=== PATIENT | male | born 1970 | race Two or more races ===

== ENCOUNTER 2024-07-31 11:47 | Inpatient (IN) | payer MEDICAID, SELFPAY ==
[2024-07-31] VITALS (11 sets, daily range): BP systolic 92–135; BP diastolic 70–86; PULSE 82–103; RESP 14–26; TEMP 36.3–37.6; O2SAT 3–97; BMI 35.7; BMI 33.9
--- NOTE | 2024-07-31 12:09 | EKG12_ITS ---
Test Reason : SOB Blood Pressure : */* mmHG Vent. Rate : 95 BPM Atrial Rate : 95 BPM P-R Int : 156 ms QRS Dur : 78 ms QT Int : 330 ms P-R-T Axes : 45 74 19 degrees QTcB Int : 414 ms Normal sinus rhythm Normal ECG Confirmed by SANDY CANO, BRANDIE ([id number]), society editor MARY BALTAZAR ([id number]) on 08/01/2024 8:48:24 AM Referred By: Maricruz Villareal Confirmed By: BRANDIE DELGADO MD
--- NOTE | 2024-07-31 12:09 | RAD_ITS ---
EXAM: XR Chest, 1 View CLINICAL INDICATION: TECHNIQUE: Frontal view of the chest. COMPARISON: No relevant prior studies available. FINDINGS: LUNGS AND PLEURAL SPACES: Unremarkable. No consolidation. No pneumothorax. HEART: Unremarkable. No cardiomegaly. MEDIASTINUM: Unremarkable. Normal mediastinal contour. BONES/JOINTS: Unremarkable. No acute fracture. RAD/Chest 1 View (Portable) IMPRESSION: No acute cardiopulmonary process. Reading [facility]
[2024-07-31] MEDS: 0.9% Normal Saline (1000mL) 1,000 ML 999 ML IV (12:19)
--- NOTE | 2024-07-31 12:32 | EX.ED.DYSGE1 ---
HPI History of Present Illness Chief Complaint: Nausea/Vomiting/Diarrhea Detail of Chief Complaint: Nausea, vomit diarrhea as well as shortness of breath cough and hypoxia Informant: patient and EMS Onset/Context/Timing Onset: Yesterday (Per patient) Context: Sudden Onset Timing: Continuous Quality: Viral-like symptoms with respiratory and GI Location: Systemic viral Current Severity: Moderate Maximum Severity: Severe Worsened by: Nothing specific Relieved by: Nothing Associated Symptoms Associated Symptoms: Nonproductive cough and wheezing Narrative Narrative: Patient is a 54-year-old male. 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 He also had compartment syndrome requiring fasciotomy of his right upper extremity. Patient presents because of nonproductive cough, shortness of breath and hypoxia. He is present on 3 L by nasal cannula. There is no history of PE or DVT. He also has GI symptoms consistent with nausea, vomit diarrhea. Denies hematemesis, melena medic easier. He denies urologic symptoms. Prior similar symptoms: No Recent Illness/Hospitalization: No PFSH PFSH Home Medications ?Medication ?Instructions ?Recorded ?Last Taken ?Type acetaminophen 325 mg tablet 650 mg PO Q4H PRN fever or pain 07/31/24 Unknown History (Aminofen) aripiprazole 15 mg tablet (Abilify) 15 mg PO DAILY SCHIZOPHRENIA 07/31/24 Unknown History aspirin 81 mg tablet,delayed 81 mg PO DAILY HTN 07/31/24 Unknown History release (Adult Low Dose Aspirin) atorvastatin 20 mg tablet 20 mg PO QHS HYPERLIPIDEMIA 07/31/24 Unknown History buspirone 10 mg tablet 10 mg PO TID BIPOLAR 07/31/24 Unknown History calcium carbonate (Leslye-Harrell 300 mg PO DAILY PRN heartburn 07/31/24 Unknown History Heartburn Chew) cholecalciferol (vitamin D3) 1,250 1,250 mcg PO QWEEK SUPPLEMENT 07/31/24 Unknown History mcg (50,000 unit) capsule gabapentin 100 mg capsule 200 mg PO TID NEUROPATHIC PAIN 07/31/24 Unknown History lorazepam 1 mg tablet (Ativan) 1 mg PO Q8H agitation 07/31/24 Unknown History metformin 1,000 mg tablet 1,000 mg PO BID DM 07/31/24 Unknown History sennosides 8.6 mg-docusate sodium 1 tab-cap PO DAILY CONSTIPATION 07/31/24 Unknown History 50 mg tablet (Colace 2-In-1) trazodone 50 mg tablet 50 mg PO BID BIPOLAR 07/31/24 Unknown History vortioxetine 20 mg tablet 20 mg PO DAILY DEPRESSION 07/31/24 Unknown History (Trintellix) Allergy/AdvReac Type Severity Reaction Status Date / Time ibuprofen Allergy Rash Verified 07/31/24 11:57 Penicillins Allergy RASH Verified 07/31/24 11:57 Social History Smoking Status: Current every day smoker tobacco type: cigarettes ROS ROS ED Constitutional Constitutional ED: Reports chills, fever(s) and subjective; Denies sweats or weight loss Eyes Eyes: Denies blurry vision or change in vision ENT ENT ED: Reports rhinorrhea and sore throat; Denies ear pain Cardiovascular Cardiovascular: Reports racing heartbeat; Denies chest pain, orthopnea, palpitations or paroxysmal nocturnal dyspnea Respiratory/Chest Respiratory/Chest: Reports cough and dyspnea; Denies orthopnea, paroxysmal nocturnal dyspnea or sputum Gastrointestinal Gastrointestinal: Reports diarrhea, nausea and vomiting; Denies abdominal pain or melena Genitourinary Genitourinary ED: Denies dysuria, hematuria or urinary frequency Musculoskeletal Musculoskeletal: Reports myalgias; Denies arthralgias, back pain or neck pain Integumentary Denies rash Neurologic Neurologic: Denies headache(s), paresthesias or weakness Psychiatric Psychiatric: Denies anxiety or depression Endocrine Endocrinology: Denies cold intolerance or heat intolerance Hematologic/Lymphatic Hematologic/Lymphatic: Reports systems reviewed and no addt'l complaints, except as documented Allergic/Immunologic Allergic/Immunologic ED: Denies mouth swelling or tongue swelling EXAM Physical Exam Const Vital Signs: 07/31/24 11:50 07/31/24 11:52 07/31/24 12:09 Temperature 99.4 F H 99.4 F H Temperature Source Oral Oral Pulse Rate 103 H 95 Respiratory Rate 23 H 21 H Respiratory Pattern Blood Pressure 106/86 H 92/80 Blood Pressure Mean 92 84 Pulse Ox 3 95 96 Oxygen Delivery Method High Flow Nasal Cannula Oxygen Flow Rate (L/min) 3 07/31/24 12:42 07/31/24 14:11 07/31/24 15:16 Temperature 97.4 F L Temperature Source Oral Pulse Rate 95 87 Respiratory Rate 26 H 26 H Respiratory Pattern Tachypnea Blood Pressure 107/76 Blood Pressure Mean 86 Pulse Ox 96 94 Oxygen Delivery Method Room Air Oxygen Flow Rate (L/min) Vital signs are marked for tachycardia, tachypnea and hypoxia. Patient is hypotensive presently. His initial blood pressure was 106/86. Constitutional Narrative: Patient is warm to touch. General Appearance ED: diaphoretic; Negative for cyanotic, NAD or pallor HEENT Reports moist mucous membranes HEENT Narrative: Head is atraumatic normocephalic. Ears are normal. Nares are patent. Posterior pharynx is normal. Eyes EOMs intact bilaterally General Eye ED: Negative for scleral icterus Neck no lymphadenopathy, supple and no JVD Chest Wall inspection of chest normal and palpation of chest normal Resp No normal respiratory effort and No clear to auscultation bilaterally Resp Narrative: There is increased expiratory phase with decreased air movement. Effort and Inspection: Negative for retractions Auscultation: wheezes expiratory wheezes and throughout and diminished lung sounds Cardio regular rhythm, S1 normal heart sound, S2 normal heart sound and no murmurs Rate: tachycardic GI normal to inspection, nondistended, normoactive bowel sounds, non-tender, non-distended and no masses; Negative for hepatosplenomegaly Back/Spine Negative for no CVA tenderness Extremity Negative for normal to inspection General Extremety ED: Negative for tenderness Neuro oriented x3 and CN's II-XII intact bilaterally Sensorium / Orientation: alert Psych mental status grossly normal Skin no rashes or lesions noted, no wounds and skin turgor normal Skin Narrative: Patient is diaphoretic and warm to touch. General Skin Exam: Negative for jaundice or pallor MDM MDM MDM Narrative Medical decision making narrative: Patient presents with hypoxia, tachypnea who was recently diagnosed with COVID 19 yesterday at nursing facility. Is been in nursing facility for 8 years due to left hemispheric stroke that has left him disabled on the right side. Based on patient's oscillatory findings concern patient has COVID-pneumonia. He is not normally on oxygen. He is presently on 3 L of oxygen. He arrived on high flow. Sepsis workup was initiated. Concern patient's hypoxic due to COVID versus pneumonia post COVID infection. Will obtain CBC to assess white count differential and H&H. Electrolyte panel to assess for endorgan dysfunction and specifically renal, electrolyte abnormality. Lactate was obtained as well. Chest x-ray was obtained to assess for pneumonia. History of physical is not consistent with pneumothorax or congestive heart failure. Lab Data Attestation: I reviewed the patient's lab results. Lab results narrative: CBC is unremarkable. There is a slight increase in neutrophils. PT/INR and PTT are all normal. Comprehensive metabolic panel reveals slight elevation alkaline phosphatase. AST and ALT are low at 11 and 12 respectively. Lactate is elevated 3.0. Urinalysis is unremarkable. Labs: Laboratory Results - last 24 hr 07/31/24 07/31/24 12:19 14:42 WBC 6.8 RBC 4.76 Hgb 12.8 L Hct 41.3 MCV 86.8 MCH 26.9 L MCHC 31.0 L RDW Std Deviation 47.6 H RDW Coeff of Thomas 15.0 H Plt Count 204 MPV 9.8 Immature Gran % (Auto) 0.300 Neut % (Auto) 83.5 H Lymph % (Auto) 4.8 L [place] % (Auto) 10.8 H Eos % (Auto) 0.3 Baso % (Auto) 0.3 Absolute Neuts (auto) 5.7 Absolute Lymphs (auto) 0.33 L Nucleated RBC % 0 PT 14.2 INR 1.1 APTT 27.0 Sodium 138 Potassium 4.2 Chloride 103 Carbon Dioxide 28.0 Anion Gap 7 BUN 14 Creatinine 1.30 Estim Creat Clear Calc 76.89 Est GFR (MDRD) Af Amer 74 Est GFR (MDRD) Non-Af 61 BUN/Creatinine Ratio 10.8 Glucose 112 H Lactic Acid 3.0 H* Calcium 9.7 Total Bilirubin 0.40 AST 11 L ALT 12 L Alkaline Phosphatase 125 H Total Protein 7.2 Albumin 3.5 Globulin 3.7 Albumin/Globulin Ratio 0.9 Urine Color Yellow Urine Clarity Clear Urine pH 6.0 Ur Specific [place] 1.010 Urine Protein 30 H Urine Glucose (UA) Normal Urine Ketones Negative Urine Occult Blood Negative Urine Nitrite Negative Urine Bilirubin Negative Urine Urobilinogen 4 H Ur Leukocyte Esterase 100 H Urine RBC 0 SEEN Urine WBC 0-5 SEEN Ur Squamous Epith Cells 0 SEEN Urine Bacteria 0 SEEN Urine Mucus 0 SEEN Glucose is slightly elevated 112 with a normal CO2 anion gap. ABG Data ABG results: ABG 07/31/24 12:59 Specimen Type ART Sample Site Not entered pH 7.39 Bicarbonate Actual 30.6 H Total CO2 32 Base Excess 6 H O2 Saturation 90 L O2 % 4.0 ABG pCO2 50.8 H ABG pO2 60 L O2 Delivery Device Not entered Vent Mode Not entered Radiography Chest X-Ray - ED: 1 View, Read by ED Physician ([id number]), Normal, Heart, Lungs, Mediastinum, Bony Structures and No Acute Disease Diagnostic Testing: Clinical Impression(s) from Imaging Studies Chest X-Ray 07/31/24 12:09 IMPRESSION: No acute cardiopulmonary process. Reading Location: [facility] EKG Initial EKG: Attestation: I personally reviewed and interpreted this EKG as follows: Interpretation: Sinus Rhythm (Rate is 95. EKG is normal. OH interval is 156 ms. Cures duration 78 ms. QT duration 130 ms. [place] is normal. The EKG is normal.) Differential Diagnosis Chest pain/SOB: pneumothorax Reason(s) pneumothorax less likely: Positive for bilateral breath sounds and EMERGENCY MED[employer] EMT withhout PTX, pneumonia Reason(s) pneumonia less likely: Positive for no infiltrate on CXR, no elevation in WBC count, no noted fever and other, aortic dissection Reason(s) Aortic dissection less likely:: Positive for normal vascular exam, normal neurological exam, no significant risk factors for dissection, no widened mediastinum on CXR, pain not sudden onset, no ripping/tearing pain, no pain to back and blood pressure appropriate in ED, CHF Reason(s) CHF less likely: Positive for no significant peripheral edema, no orthopnea and no evidence of fluid overload on CXR and COPD Management Discussion w/another healthcare provider: Hospitalist (Dr. Maricruz Villareal was paged for admission to [facility] for respiratory failure with hypoxia due to COVID-19 infection.) Treatment and Re-Evaluation :: Since patient is hypoxic requiring oxygen with positive COVID test will call hospitalist for admission. Discharge Plan Dx/Rx/DC Orders Clinical Impression: Acute hypoxic respiratory failure, COVID-19 virus infection, Hypotension, Acidosis, lactic, Type 2 diabetes mellitus Disposition Disposition: Acute Care Hospital [facility]
[2024-07-31 12:34] LABS: Absolute Lymphocyte Count 0.33 X10^3/uL (0.83-4.51); Absolute Neutrophil Count 5.7 X10^3/uL (2.0-7.7); Basophil# 0.02 X10^3/uL; Basophil% 0.3 % (0-1); Eosinophil# 0.02 X10^3/uL; Eosinophils% 0.3 % (0-5); Hematocrit 41.3 % (40-54); Hemoglobin 12.8 g/dL (13.0-16.5); Lymphocyte # 0.33 X10^3/ul (0.83-4.51); Lymphocyte % 4.8 % (19-41); Mean Corpuscular Hgb 26.9 pg (27.0-32.0); Mean Corpuscular Volume 86.8 fL (80-94); Mean Platelet Vol. 9.8 fl (6.2-12.0); Monocyte# 0.74 X10^3/uL; Monocyte% 10.8 % (0-10); NRBC Flagged by Analyzer 0 % (0-5); Neutrophil # 5.71 X10^3/uL (2.7-7.7); Neutrophil % 83.5 % (47-70); POSITIVE DIFFERENTIAL YES; Platelet Count 204 K/mm3 (150-450); RBC Distribution Width SD 47.6 fl (35.1-43.9); Red Blood Count 4.76 M/mm3 (4.6-6.2); White Blood Count 6.8 K/mm3 (4.4-11.0)
[2024-07-31] MEDS: Albuterol 2.5 MG/3 ML VIAL.NEB. INHALATION ×2 (12:34)
[2024-07-31 12:44] LABS: International Normalized Ratio 1.1; Prothrombin Time (Protime)PT. 14.2 SECONDS (11.7-14.9)
[2024-07-31 12:53] LABS: ALB/GLOB Ratio 0.9 RATIO (0.9-2.4); AST(SGOT) 11 U/L (15-37); Alanine Aminotransfer ALT/SGPT 12 U/L (16-61); Albumin, Serum 3.5 g/dL (3.2-5.0); Alkaline Phosphatase 125 U/L (45-117); Anion Gap 7 (5-15); BUN 14 mg/dL (7-18); BUN/Creat Ratio 10.8 RATIO (10-20); Calcium,Total 9.7 mg/dL (8.5-10.1); Chloride 103 mmol/L (98-107); EST Glomerular Filtration Rate 61 mL/min (>60); Est Glom Filt Rate - Afr Amer 74 mL/min (>60); Estimated Creatinine Clearance 76.89 ml/min; Globulin 3.7 g/dL (2.2-4.2); Glucose 112 mg/dL (74-106); Potassium 4.2 mmol/L (3.5-5.1); Protein, Total 7.2 g/dL (6.4-8.2); Sodium Level 138 mmol/L (136-145)
[2024-07-31 13:03] LABS: Base Excess 6 mmol/L (-2 to +2); Bicarbonate 30.6 mmol/L (22-26); Blood Gas Specimen Type ART; Mode Not entered; O2 Delivery Device Not entered; PO2 60 mmHG (75-100); SITE Not entered; SO2 90 % (95-99); Total Carbon Dioxide 32 mmol/L; pCO2 50.8 mmHg (35-45); pH 7.39 (7.35-7.45)
[2024-07-31 14:56] LABS: Bacteria 0 SEEN /hpf (None Seen); Mucous, Urine 0 SEEN /hpf (<or=2+); Red Blood Cells-Urine 0 SEEN /hpf (0-5); Squamous Epithelial Cells - UA 0 SEEN /hpf (0-5)
[2024-07-31 15:07] LABS: Color, Urine Yellow (Yellow); Glucose, Dipstick Normal (Normal); Ketone-Dipstick Negative (Negative); Leukocyte Esterase-Dipstick 100 /ul (Negative); Nitrite-Dipstick Negative (Negative); Occult Blood-Urine Negative /ul (Negative); Protein-Dipstick 30 mg/dl (Negative); Urine Bilirubin Dipstick Negative (Negative); Urine Clarity Clear (Clear); Urine Urobilinogen 4 mg/dl (Normal)
--- NOTE | 2024-07-31 15:11 | CM.ED ---
Social work Reason for referral: validation of advance directives Referral source: case find 1500: This SW identified need to validate patient's advance directives. Patient reportedly tested positive for Covid this morning at patient's placement, [facility]. Patient has a legal guardian, patient's sister Ileana ([phone]). This SW called Ileana and introduced self and role at [facility]. Ileana was surprised to hear that patient was in the [facility] ED due to not being notified yet by Cristela Rivera. Ileana gave consent for treatment and verified that Ileana was patient's HCPOA. Ileana stated driving currently, but stated [facility] would have patient's advance directives on file. Ileana asked for patient's RN to call Ileana with update when available. RN Shabana updated. SW to call Cristela Rivera to get advance directives faxed to [facility]. Cherelle Galindo, ORIENTATION AND MOBILITY INSTRUCTOR, CD MIXER HELPER
[2024-07-31 15:14] LABS: White Blood Cells 0-5 SEEN /hpf (0-5)
--- NOTE | 2024-07-31 15:20 | CM.ED ---
Social work 1520: this SW called Cristela Rivera ([phone]) and spoke with Salma. Salma stated having guardianship papers, but not having advance directives for patient on file. Salma stated ability to fax guardianship documents to ED SW office; fax number provided. Guardianship paper received and added to chart; special indicator added in [employer]. Cherelle Galindo, MILL MANAGER, CALL CENTER MANAGER
[2024-07-31 16:25] LABS: Reflex Lactate? Y
--- NOTE | 2024-07-31 17:05 | HP.PCM.HOS_ITS ---
HPI - General General Date of Admission: 07/31/24 Date of Service: 07/31/24 Chief Complaint: N/V/D HPI Narrative GUERDA GARCIA, is a 54-year-old male history of CVA with right-sided deficits, compartment syndrome with right upper extremity fasciotomy, depression, diabetes who presented [facility] ED 07/31/2024 with nausea, vomiting, diarrhea as well as shortness of breath, cough, hypoxia. In the ED patient became hypoxic at 87% on room air and was placed on 2 L, initially was little bit tachypneic in the low 20s as well with blood pressure of 106/86 and heart rate of 103, afebrile. Lab workup revealed lactic acid of 3.0 but otherwise fairly benign. Given patient was hypoxic and has had difficulty tolerating p.o. given his nausea and diarrhea hospitalist contacted for admission. Patient evaluated bedside and reports he has had nausea, vomiting, diarrhea and shortness of breath and cough since yesterday, no abdominal pain and actually not having any more nausea or diarrhea since he has been in the ED but is coughing. No other new acute complaints. [facility] Home Medications ?Medication ?Instructions ?Recorded ?Last Taken ?Type acetaminophen 325 mg tablet 650 mg PO Q4H PRN fever or pain 07/31/24 Unknown History (Aminofen) aripiprazole 15 mg tablet (Abilify) 15 mg PO DAILY DEBRA IZOPHRENIA 07/31/24 Unknown History aspirin 81 mg tablet,delayed 81 mg PO DAILY HTN Unknown History release (Adult Low Dose Aspirin) atorvastatin 20 mg tablet 20 mg PO QHS HYPERLIPIDEMIA 07/31/24 Unknown History buspirone 10 mg tablet 10 mg PO TID BIPOLAR 5 Unknown History calcium carbonate (Leslye-Struthers 300 mg PO DAILY PRN he artburn 07/31/24 Unknown History Heartburn Chew) cholecalciferol (vitamin D3) 1,250 1,250 mcg PO QWEEK SUPPLEMENT 07/31/24 Unknown History mcg (50,000 unit) capsule gabapentin 100 mg capsule 200 mg PO TID NEUROPATHIC PA IN 07/31/24 Unknown History lorazepam 1 mg tablet (Ativan) 1 mg PO Q8H agitation 0 07/31/24 Unknown History metformin 1,000 mg tablet 1,000 mg PO BID DM 07/31/24 Unknown History sennosides 8.6 mg-docusate sodium 1 tab-cap PO DAILY C ONSTIPATION 07/31/24 Unknown History 50 mg tablet (Colace 2-In-1) trazodone 50 mg tablet 50 mg PO BID BIPOLAR 5 Unknown History vortioxetine 20 mg tablet 20 mg PO DAILY DEPRESSION Unknown History (Trintellix) Allergy/AdvReac Type Severity Reaction Status Date / Time ibuprofen Allergy Rash Verified 07/31/24 11:57 Penicillins Allergy RASH Verified 07/31/24 11:57 Social History Smoking Status: Current every day smoker tobacco type: cigarettes ROS ROS Narrative General: Denies fever/chills HENT: Denies headache, denies stuffy nose, denies sore throat EYES: Denies changes in vision Resp: Does have cough that is nonproductive and shortness of breath Cardiac: Denies chest pain GI: Denies abdominal pain, had some nausea and vomiting and diarrhea but none since being in the ED : Denies changes in urination Extremity: Denies swelling MSK: Denies new weakness Neuro: Denies any new numbness/tingling Heme: Denies any bleeding or bruising Skin: Denies rashes Psychiatric: No complaints voiced Vital Signs Vital Signs Vital Signs: 07/31/24 11:50 07/31/24 11:52 07/31/24 12:09 Temperature 99.4 F H 99.4 F H Temperature Source Oral Oral Pulse Rate 103 H 95 Respiratory Rate 23 H 21 H Respiratory Pattern Blood Pressure 106/86 H 92/80 Blood Pressure Mean 92 84 Pulse Ox 3 95 96 Oxygen Delivery Method High Flow Nasal Cannula Oxygen Flow Rate (L/min) 3 07/31/24 12:42 07/31/24 14:11 07/31/24 15:16 Temperature 97.4 F L Temperature Source Oral Pulse Rate 95 87 Respiratory Rate 26 H 26 H Respiratory Pattern Tachypnea Blood Pressure 107/76 Blood Pressure Mean 86 Pulse Ox 96 94 Oxygen Delivery Method Room Air Oxygen Flow Rate (L/min) 07/31/24 16:14 Temperature Temperature Source Pulse Rate 82 Respiratory Rate 24 H Respiratory Pattern Blood Pressure 103/70 Blood Pressure Mean 81 Pulse Ox 97 Oxygen Delivery Method Room Air Oxygen Flow Rate (L/min) Weight Weight: 106.6 kg Body Mass Index (BMI) 35.7 Physical Exam Narrative General: Alert, oriented, no apparent distress HEENT: Atraumatic, normocephalic Eyes: Anicteric, normal conjunctiva, extraocular movements grossly intact Neck: Supple Respiratory: Coughs every time when asked to take a deep breath, no overt wheezes or rhonchi Cardiovascular: Regular rate GI: Soft, nontender, nondistended Extremities: No edema Musculoskeletal: Moving all extremities Neuro: Some chronic deficits Skin: No rashes appreciated Psych: Cooperative Results Lab / Micro Data 07/31/24 12:19 07/31/24 12:19 Labs: Laboratory Results - last 24 hr 07/31/24 12:19: WBC 6.8, RBC 4.76, Hgb 12.8 L, Hct 41.3, MCV 86.8, MCH 26.9 L, M CHC 31.0 L, RDW Std Deviation 47.6 H, RDW Coeff of Thomas 15.0 H, Plt Count 204, MPV 9.8, Immature Gran % (Auto) 0.300, Neut % (Auto) 83.5 H, Lymph % (Auto) 4.8 L, [place] % (Auto) 10.8 H, Eos % (Auto) 0.3, Baso % (Auto) 0.3, Absolute Neuts (auto) 5.7, Absolute Lymphs (auto) 0.33 L, Nucleated RBC % 0, PT 14.2, INR 1.1, APTT 27.0, Sodium 138, Potassium 4.2, Chloride 103, Carbon Dioxide 28.0, Anion Gap 7, BUN 14, Creatinine 1.30, Estim Creat Clear Calc 76.89, Est GFR (MDRD) Af Amer 74, Est GFR (MDRD) Non-Af 61, BUN/Creatinine Ratio 10.8, Glucose 112 H, L actic Acid 3.0 H*, Calcium 9.7, Total Bilirubin 0.40, AST 11 L, ALT 12 L, A lkaline Phosphatase 125 H, Total Protein 7.2, Albumin 3.5, Globulin 3.7, Albumin/Globulin Ratio 0.9 07/31/24 14:42: Urine Color Yellow, Urine Clarity Clear, Urine pH 6.0, Ur Specific [place] 1.010, Urine Protein 30 H, Urine Glucose (UA) Normal, Urine Ketones Negative, Urine Occult Blood Negative, Urine Nitrite Negative, Urine Bilirubin Negative, Urine Urobilinogen 4 H, Ur Leukocyte Esterase 100 H, Urine RBC 0 SEEN, Urine WBC 0-5 SEEN, Ur Squamous Epith Cells 0 SEEN, Urine Bacteria 0 SEEN, Urine Mucus 0 SEEN ABG Data ABG results: ABG 07/31/24 12:59 Specimen Type ART Sample Site Not entered pH 7.39 Bicarbonate Actual 30.6 H Total CO2 32 Base Excess 6 H O2 Saturation 90 L O2 % 4.0 ABG pCO2 50.8 H ABG pO2 60 L O2 Delivery Device Not entered Vent Mode Not entered Imaging Radiology Impression Chest X-Ray 07/31/24 12:09 IMPRESSION: No acute cardiopulmonary process. Reading [facility] Assessment & Plan Assessment/Plan (1) COVID-19 virus infection: PLAN: Plan # Hypoxia secondary to COVID-19 infection -Patient tested positive yesterday for COVID -Was hypoxic initially in the ED however was able to be weaned to room air but intermittently would dip low -Will give patient dexamethasone and albuterol as needed # Nausea/vomiting/diarrhea -Suspect secondary to COVID -Symptoms presently resolved in the ED, no abdominal pain either so indication for acute abdominal imaging -IVF -Supportive care #Hx CVA -w/ right-sided deficits -Resides in longterm -Continue home medications #Type 2 diabetes mellitus -Glucose checks and sliding scale insulin #Depression/anxiety -Continue home medications #DVT ppx: Lovenox subcu Maricruz Villareal MD Charges/Coding Visit Charges Inpatient E&M: 12556 Init Hosp L2
--- NOTE | 2024-07-31 18:10 | ED.RN ---
Caregiver Halima updated about patients status and admission
--- NOTE | 2024-07-31 18:11 | ED.RN ---
patient refused lab draw. notified
--- NOTE | 2024-07-31 19:25 | NURSING ---
Lab notified of lactic acid that has not been completed stating they are aware of the pending order, and will be up to draw the pt.
[2024-07-31] MEDS: 0.9% Saline Lock 10 ML Syringe IV (20:36)
[2024-07-31] MEDS: dexAMETHasone 10 MG/ML Vial 6 MG IV (20:36)
[2024-07-31 21:13] LABS: Bedside Glucose 116 mg/dL (74-106)
[2024-07-31 23:42] LABS: Lactic Acid 2.3 mmol/L (0.4-1.9)
[2024-08-01 00:32] VITALS: BP 121/77; PULSE 84; RESP 24; TEMP 36.9; O2SAT 92
[2024-08-01] MEDS: LORazepam 1 MG Tablet PO ×3 (01:04→14:01)
[2024-08-01 06:32] VITALS: BP 117/63; PULSE 72; RESP 20; TEMP 36.6; O2SAT 93
[2024-08-01] MEDS: busPIRone 5 MG Tablet 10 MG PO ×2 (06:37→14:01)
[2024-08-01] MEDS: Gabapentin 100 MG Capsule 200 MG PO ×2 (06:37→14:01)
[2024-08-01 06:58] LABS: Bedside Glucose 125 mg/dL (74-106)
[2024-08-01 07:42] LABS: Absolute Lymphocyte Count 0.61 X10^3/uL (0.83-4.51); Absolute Neutrophil Count 3.9 X10^3/uL (2.0-7.7); Basophil# 0.01 X10^3/uL; Basophil% 0.2 % (0-1); Hematocrit 40.5 % (40-54); Hemoglobin 12.5 g/dL (13.0-16.5); Lymphocyte # 0.61 X10^3/ul (0.83-4.51); Lymphocyte % 12.1 % (19-41); Mean Corp Hgb Conc 30.9 g/dL (32-36); Mean Corpuscular Hgb 26.5 pg (27.0-32.0); Mean Platelet Vol. 9.3 fl (6.2-12.0); Monocyte# 0.49 X10^3/uL; Monocyte% 9.7 % (0-10); NRBC Flagged by Analyzer 0 % (0-5); Neutrophil # 3.91 X10^3/uL (2.7-7.7); Neutrophil % 77.8 % (47-70); Platelet Count 206 K/mm3 (150-450); RBC Distribution Width CV 14.8 % (11.6-14.6); RBC Distribution Width SD 46.8 fl (35.1-43.9); Red Blood Count 4.71 M/mm3 (4.6-6.2)
[2024-08-01 08:50] LABS: Anion Gap 5 (5-15); BUN 11 mg/dL (7-18); Calcium,Total 9.8 mg/dL (8.5-10.1); Chloride 102 mmol/L (98-107); Creatinine, Serum 0.92 mg/dL (0.70-1.30); EST Glomerular Filtration Rate 91 mL/min (>60); Est Glom Filt Rate - Afr Amer 111 mL/min (>60); Estimated Creatinine Clearance 105.89 ml/min; Glucose 126 mg/dL (74-106); Potassium 4.3 mmol/L (3.5-5.1); Sodium Level 136 mmol/L (136-145)
--- NOTE | 2024-08-01 09:18 | CASEMGMT ---
Pts sister/legal guardian wishes for pt to return to [facility]. Updates faxed. SW updated. Nina Tran DC Planning Asst.
[2024-08-01] MEDS: traZODone 50 MG Tablet PO (10:21)
[2024-08-01] MEDS: ARIPiprazole 5 MG Tablet 15 MG PO (10:21)
[2024-08-01] MEDS: Enoxaparin 40 MG/0.4 ML Syringe SC (10:21)
[2024-08-01] MEDS: VORTIOXETINE HYDROBROMIDE 20 MG TABLET PO (10:21)
[2024-08-01] MEDS: Aspirin E.C. 81 MG Tablet PO (10:22)
[2024-08-01] MEDS: dexAMETHasone 10 MG/ML Vial 6 MG IV (10:22)
[2024-08-01] MEDS: 0.9% Saline Lock 10 ML Syringe IV (10:22)
[2024-08-01 10:23] VITALS: BP 118/77; PULSE 67; RESP 18; TEMP 36.6; O2SAT 94
[2024-08-01 10:45] VITALS: O2SAT 94
--- NOTE | 2024-08-01 10:46 | NURSING ---
Patient on room air at this time, denies any shortness of breath or chest pain, Patient does not ambulate- uses Wheelchair at facility. No ambulation completed- patient remains on room air at 94%
[2024-08-01] MEDS: Insulin Lispro 100 UNIT/ML INSULN.PEN SC ×2 (11:03→17:09)
[2024-08-01 11:19] LABS: Bedside Glucose 156 mg/dL (74-106)
--- NOTE | 2024-08-01 16:05 | CASEMGMT ---
Social Work- Discharge back to [facility], long term care administrator care. ?In case of late discharge, green sheet and transport sheet on chart for nursing to follow for final discharge arrangements/notifications to SNF, patient/family.? ? Plan: [facility]; intermediate level of care OTONIEL Hill
--- NOTE | 2024-08-01 16:36 | TREXTCAR_ITS ---
Diet Diet Order/Speech Therapy: 07/31/24 19:09 Diet: Cardiac - Heart Healthy Food consistency:: Regular Liquid Consistency:: Regular/Thin Routine Orders/Code Status Enema Type: Fleetz Enema Frequency: Daily PRN Suppository Type: Dulcolax 10mg Suppository Frequency: Daily PRN DC O2, CPAP, BIPAP needs RN Home O2 Qualification: Home O2 Qualification: Is the patient on home oxygen No 08/01/24 10:45 Home O2 Qualification: AT REST 1- Pulse Ox at rest 94 08/01/24 10:45 Home O2 Qualification: WITH AMBULATION 1- Pulse Ox with ambulation 94 08/01/24 10:45 1- Oxygen Flow Rate with 0 08/01/24 10:45 ambulation Home O2 Discharge instructions: No Therapies Weight Bearing: Weight bearing as tolerated Physical Therapy: Eval and Treat Occupational Therapy: Eval and Treat Problem/Diagnosis (1) COVID-19 virus infection: Status: Acute Code(s): U07.1 - COVID-19 Allergies/Procedures Done in Hospital Allergies ibuprofen Allergy (Verified 07/31/24 11:57) Rash Penicillins Allergy (Verified 07/31/24 11:57) RASH Procedures: None Type of Care/Length of Stay Estimated LOS: More Than 30 Days Type of Care Needed: Skilled Rehab Potential: Good Prognosis: Good Additional Orders/Day of Discharge Day of Discharge: 08/01/24 Dietary and Speech Recommendations Dietitian Recommendations/Changes: Will continue cardiac diet as ordered. Restrict carbohydrates as needed if blood glucose rises. ONS as needed once PO better established with meals. Discharge Plan Admission Admit Date/Time: 07/31/24 17:05 Primary Reason for Your Visit: COVID, acute gastroenteritis Attending Provider: Michelle Angeles Primary Care Provider: Kamar Bright Consulting Providers: Maricurz Villareal Instructions Patient Instructions: Caring for Someone Who Has COVID-19 Discharge Orders/Prescriptions Prescriptions: New dexamethasone 6 mg tablet 6 mg PO DAILY Qty: 8 0RF Continued Trintellix 20 mg tablet 20 mg PO DAILY sennosides-docusate sodium [Colace 2-In-1] 8.6-50 mg tablet 1 tab-cap PO DAILY aripiprazole [Abilify] 15 mg tablet 15 mg PO DAILY aspirin [Adult Low Dose Aspirin] 81 mg tablet,delayed release (DR/EC) 81 mg PO DAILY lorazepam [Ativan] 1 mg tablet 1 mg PO Q8H buspirone 10 mg tablet 10 mg PO TID gabapentin 100 mg capsule 200 mg PO TID trazodone 50 mg tablet 50 mg PO BID cholecalciferol (vitamin D3) 1,250 mcg (50,000 unit) capsule 1,250 mcg PO QWEEK Rx Instructions: QMONDAY metformin 1,000 mg tablet 1,000 mg PO BID atorvastatin 20 mg tablet 20 mg PO QHS [place] Heartburn Chew 300 mg (750 mg) tablet,chewable 300 mg PO DAILY PRN (Reason: heartburn) acetaminophen [Aminofen] 325 mg tablet 650 mg PO Q4H PRN (Reason: fever or pain) Referrals / Follow Up: Kamar Bright MD [Primary Care Provider] - Within 1 Week Disposition Disposition (needs filled in before D/C Order can be placed): [facility] Facility
--- NOTE | 2024-08-01 16:38 | PCM.DC.SUM ---
Providers Date of Admission: 07/31/24 Date of Discharge: 08/01/24 Primary Care Physician: Dr. Kamar Bright MD Reason For Visit: N/V/DIARRHEA, COVID Diagnosis Discharge Diagnosis (1) COVID-19 virus infection: Status: Acute Code(s): U07.1 - COVID-19 Medications at Discharge Home Medications acetaminophen 325 mg tablet (Aminofen) 650 mg PO Q4H PRN fever or pain 07/31/24 aripiprazole 15 mg tablet (Abilify) 15 mg PO DAILY SCHIZOPHRENIA 07/31/24 aspirin 81 mg tablet,delayed release (Adult Low Dose Aspirin) 81 mg PO DAILY HTN 07/31/24 atorvastatin 20 mg tablet 20 mg PO QHS HYPERLIPIDEMIA 07/31/24 buspirone 10 mg tablet 10 mg PO TID BIPOLAR 07/31/24 calcium carbonate (Leslye-[place] Heartburn Chew) 300 mg PO DAILY PRN heartburn 07/31/24 cholecalciferol (vitamin D3) 1,250 mcg (50,000 unit) capsule 1,250 mcg PO QWEEK SUPPLEMENT 07/31/24 gabapentin 100 mg capsule 200 mg PO TID NEUROPATHIC PAIN 07/31/24 lorazepam 1 mg tablet (Ativan) 1 mg PO Q8H agitation 07/31/24 metformin 1,000 mg tablet 1,000 mg PO BID DM 07/31/24 sennosides 8.6 mg-docusate sodium 50 mg tablet (Colace 2-In-1) 1 tab-cap PO DAILY CONSTIPATION 07/31/24 trazodone 50 mg tablet 50 mg PO BID BIPOLAR 07/31/24 vortioxetine 20 mg tablet (Trintellix) 20 mg PO DAILY DEPRESSION 07/31/24 dexamethasone 6 mg tablet 6 mg PO DAILY #8 tabs 08/01/24 Hospital Course Operations None Procedures None Summary of Care Provided Minutes Spent on Discharge: 45 Hospital Course: Patient is a 54-year-old male with a past medical history as outlined including CVA with right-sided deficits was admitted through the ED on 07/31/2024 with complaint of nausea and vomiting and diarrhea. He also complained of shortness of breath and cough as well as hypoxia. In the ED he was hypoxic at 87% on room air and required 2 L of oxygen. Labs showed lactic acid of 3 and the subsequently trended down. Chest x-ray showed no acute cardiopulmonary process. He had apparently tested positive for COVID in his skilled facility. He was admitted and managed for hypoxia due to COVID as well as acute gastroenteritis which was thought to be due to COVID. The nausea vomiting and diarrhea resolved and did not recur during this admission. His hypoxia also resolved and patient remained on room air. He was placed on dexamethasone. He was able to tolerate a diet and did well. Patient insisted on being discharged back to his facility on 08/01/2024. As he remained hemodynamically stable he was discharged on p.o. dexamethasone 6 mg daily for 8 days to complete a 10-day course. He is follow-up with his primary care doctor within 1 to 2 weeks. Patient seen and examined prior to discharge. He had no active complaints and kept asking about being discharged. Review of systems otherwise negative. Labs and vitals reviewed. Home medication reviewed and reconciled. Physical Exam Const alert and no apparent distress General Appearance: cooperative and comfortable Orientation / Consciousness: awake Exam Limitations: no limitations HEENT normocephalic, head/scalp atraumatic, hearing grossly normal bilaterally and moist oral mucous membranes Mouth: oral and palatal mucosa normal Eyes PERRL, EOMs intact bilaterally and conjunctivae normal Resp normal respiratory effort, no retractions, no use of accessory muscles and clear to auscultation bilaterally Cardio regular rate, regular rhythm, S1 normal heart sound, S2 normal heart sound and no murmurs GI normal to inspection, nondistended, normoactive bowel sounds, soft to palpation, non-tender and non-distended Extremity normal to inspection, full ROM and no clubbing, cyanosis or edema Skin no rashes or lesions noted, no wounds, skin turgor normal and no jaundice Neuro oriented x3, CN's II-XII intact bilaterally, moves all extremities and no focal motor deficits Sensorium / Orientation: awake and alert Motor Exam: strength 5/5 throughout Psych affect normal Weight / BMI Weight Weight: 223 lb 5.252 oz Body Mass Index (BMI) 33.9 ABG / Lab / Microbiology Data 08/01/24 07:33 08/01/24 07:33 Laboratory: Laboratory Results - last 24 hr 07/31/24 20:31: POC Glucose 116 H 07/31/24 23:03: Lactic Acid 2.3 H* 08/01/24 06:30: POC Glucose 125 H 08/01/24 07:33: WBC 5.0, RBC 4.71, Hgb 12.5 L, Hct 40.5, MCV 86.0, MCH 26.5 L, MCHC 30.9 L, RDW Std Deviation 46.8 H, RDW Coeff of Thomas 14.8 H, Plt Count 206, MPV 9.3, Immature Gran % (Auto) 0.200, Neut % (Auto) 77.8 H, Lymph % (Auto) 12.1 L, [place] % (Auto) 9.7, Eos % (Auto) 0.0, Baso % (Auto) 0.2, Absolute Neuts (auto) 3.9, Absolute Lymphs (auto) 0.61 L, Nucleated RBC % 0, Sodium 136, Potassium 4.3, Chloride 102, Carbon Dioxide 29.0, Anion Gap 5, BUN 11, Creatinine 0.92, Estim Creat Clear Calc 105.89, Est GFR (MDRD) Af Amer 111, Est GFR (MDRD) Non-Af 91, BUN/Creatinine Ratio 12.0, Glucose 126 H, Calcium 9.8 08/01/24 11:02: POC Glucose 156 H D/C Instructions Discharge Diet: Low fat / Low cholesterol Discharge Activity: Return to Normal Activity Weight Bearing Status: Weight bearing as tolerated Call your doctor if you observe: Fever of 101 or Higher, Shortness of breath, Dizziness, Swelling in the ankles and Chest pain DC O2, CPAP, BIPAP Needs RN Home O2 Qualification: Home O2 Qualification: Is the patient on home oxygen No 08/01/24 10:45 Home O2 Qualification: AT REST 1- Pulse Ox at rest 94 08/01/24 10:45 Home O2 Qualification: WITH AMBULATION 1- Pulse Ox with ambulation 94 08/01/24 10:45 1- Oxygen Flow Rate with 0 08/01/24 10:45 ambulation Home O2 Discharge instructions: No DC home with Oxygen: No Meaningful Use Info Meaningful Use Meaningful Use Diagnoses (Choose all that apply): None applicable Ischemic Stroke Statin Dosing Therapy Reference: STATIN DOSE THERAPY REFERENCE: * Patients > 75 years receive moderate or high dose statin therapy. * Patients 75 years or YOUNGER should receive HIGH intensity statin dose unless contraindicated. You will be required to document reason for non-treatment if statin daily dose does not meet guidelines. HIGH DOSE STATIN THERAPY DAILY Atorvastatin > than or = to 40 mg Rosuvastatin > than or = to 20 mg Amlodipine + Atorvastatin > than or = to 2.5/40 mg Ezetimibe + Simvastatin 10/80 mg Simvastatin 80mg Discharge Plan Admission Admit Date/Time: 07/31/24 17:05 Primary Reason for Your Visit: COVID, acute gastroenteritis Attending Provider: Michelle Angeles Primary Care Provider: Kamar Bright Consulting Providers: Maricruz Villareal Instructions Patient Instructions: Caring for Someone Who Has COVID-19 Discharge Orders/Prescriptions Prescriptions: New dexamethasone 6 mg tablet 6 mg PO DAILY Qty: 8 0RF Continued Trintellix 20 mg tablet 20 mg PO DAILY sennosides-docusate sodium [Colace 2-In-1] 8.6-50 mg tablet 1 tab-cap PO DAILY aripiprazole [Abilify] 15 mg tablet 15 mg PO DAILY aspirin [Adult Low Dose Aspirin] 81 mg tablet,delayed release (DR/EC) 81 mg PO DAILY lorazepam [Ativan] 1 mg tablet 1 mg PO Q8H buspirone 10 mg tablet 10 mg PO TID gabapentin 100 mg capsule 200 mg PO TID trazodone 50 mg tablet 50 mg PO BID cholecalciferol (vitamin D3) 1,250 mcg (50,000 unit) capsule 1,250 mcg PO QWEEK Rx Instructions: QMONDAY metformin 1,000 mg tablet 1,000 mg PO BID atorvastatin 20 mg tablet 20 mg PO QHS Les[place] Heartburn Chew 300 mg (750 mg) tablet,chewable 300 mg PO DAILY PRN (Reason: heartburn) acetaminophen [Aminofen] 325 mg tablet 650 mg PO Q4H PRN (Reason: fever or pain) Referrals / Follow Up: Kamar Bright MD [Primary Care Provider] - Within 1 Week Disposition Disposition (needs filled in before D/C Order can be placed): [facility] Charges/Coding Visit Charges Inpatient E&M: 22497 Disch Hosp >30min
[2024-08-01 16:39] VITALS: O2SAT 94
[2024-08-01 16:40] VITALS: BP 120/78; PULSE 74; RESP 20; TEMP 36.8; O2SAT 94
[2024-08-01 17:06] LABS: Bedside Glucose 173 mg/dL (74-106)
== END 2024-08-01 19:49 | disposition skilled nursing facility (03) | DRG 137 ==
LOC: ED 15:42 → MS3 17:31
PROVIDERS: Admitting Provider Internal Medicine; Emergency Provider Emergency Medicine; PCP Family Medicine; Referring Provider Internal Medicine; Visit Provider Student in an Organized Health Care Education/Training Program
DX: U07.1 COVID-19 (principal); E87.20 Acidosis, unspecified; E11.9 Type 2 diabetes mellitus without complications; I69.351 Hemiplegia and hemiparesis following cerebral infarction affecting right dominant side; F32.A Depression, unspecified; I95.9 Hypotension, unspecified; F41.9 Anxiety disorder, unspecified; K52.9 Noninfective gastroenteritis and colitis, unspecified; Z79.84 Long term (current) use of oral hypoglycemic drugs; Z79.82 Long term (current) use of aspirin; Z79.899 Other long term (current) drug therapy; Z88.6 Allergy status to analgesic agent; Z88.1 Allergy status to other antibiotic agents; R09.02 Hypoxemia; Z79.52 Long term (current) use of systemic steroids
CPT/HCPCS: 36415; 36600; 71045; 80048; 80053; 81001; 82803; 82962; 83605; 85025; 85610; 85730; 87040; 93005; 94640; 99285; A4216

== ENCOUNTER 2024-12-04 10:25 | Inpatient (IN) | payer MEDICAID, SELFPAY ==
[2024-12-04] VITALS (28 sets, daily range): BP systolic 94–139; BP diastolic 64–96; PULSE 49–148; RESP 12–40; TEMP 36.3–39.6; O2SAT 79–100; BMI 35.3; BMI 35.2
--- NOTE | 2024-12-04 10:43 | EKG12_ITS ---
Test Reason : TACHY Blood Pressure : */* mmHG Vent. Rate : 131 BPM Atrial Rate : 131 BPM P-R Int : 152 ms QRS Dur : 78 ms QT Int : 296 ms P-R-T Axes : 41 82 -1 degrees QTcB Int : 437 ms Sinus tachycardia T wave abnormality, consider inferior ischemia Abnormal ECG Confirmed by German Reyna ([id number]), supervising editor trailer NGUYEN HOUSER ([id number]) on 12/05/2024 11:11:41 AM Referred By: JESUS Confirmed By: German Reyna
--- NOTE | 2024-12-04 10:43 | RAD_ITS ---
PROCEDURE: CHEST 1 VIEW 12/04/2024 REASON FOR EXAM: SHORTNESS OF BREATH TECHNIQUE: Frontal view of the chest. COMPARISON: Chest radiograph July 31, 2019 FINDINGS: Hardware: EKG lead wires Heart: Normal size Lungs: Clear Bones: No aggressive bone lesions Other: RAD/Chest 1 View IMPRESSION: No acute process. Reading [facility]
[2024-12-04] MEDS: 0.9% Normal Saline (1000mL) 1,000 ML 999 ML IV ×3 (10:56→13:16)
[2024-12-04] MEDS: MethylPREDNISolone 125 MG/2 ML Vial IV (10:57)
[2024-12-04] MEDS: Ondansetron 4 MG/2 ML Vial IV (10:57)
--- NOTE | 2024-12-04 11:02 | EX.ED.GENINJ ---
HPI History of Present Illness Chief Complaint: Nausea/Vomiting Narrative Narrative: Chief complaint and HPI: 54-year-old gentleman with past medical history of HTN, COPD, HLD, schizophrenia, DM2, CVA with right-sided paralysis and wheelchair-bound presents for evaluation of nausea and vomiting. Patient is a very poor historian therefore history taken by [facility] where patient resides as well as medical record. Patient was found to be febrile today at 100.5 as well as tachycardic and tachypneic. He was 72% on room air in which she was placed on nasal cannula. Associated symptom nausea and vomiting. Patient has a history of respiratory failure in July and staff feels that this is similar to the way he presented at that time. Patient currently endorses nausea and endorses general malaise with cough. Denies any chest pain, shortness of breath, abdominal pain, diarrhea, dysuria. Review of systems: See HPI Medications: As listed on the chart Allergies: As listed on the chart PFSH: Per chart Vital signs: As listed on the chart. Reviewed. Physical exam: Gen: A&O x2-did not know the year, not abnormal for him per report given that patient has a history of memory issues since his CVA, unwell appearing Head: Normocephalic, atraumatic Eyes: No sclera icterus, conjunctiva clear, PERRL, EOMI ENT: TMs clear BL, moist mucous membranes, posterior oropharynx unremarkable, uvula midline Neck: Trachea midline, No JVD, Full ROM, No meningismus CV: Tachycardic, regular rhythm, no murmurs Resp: Diminished, coarse, expiratory wheezing, on 12 L high flow GI: Abd soft, non-distended, non-tender, no r/r/g Musc: Moves left side, baseline deficit on the right from previous CVA Skin: Warm, no rash Neuro: Alert, grossly intact, sensation intact Psych: Cooperative [facility] Medical History CVA (cerebral vascular accident) Depression Diabetes Bipolar 1 disorder HLD (hyperlipidemia) HTN (hypertension) Schizophrenia COVID-19 virus infection Home Medications ?Medication ?Instructions ?Recorded ?Last Taken ?Type acetaminophen 325 mg tablet 650 mg PO Q4H PRN fever or pain 07/31/24 Unknown History (Aminofen) aripiprazole 15 mg tablet (Abilify) 15 mg PO DAILY SCHIZOPHRENIA 07/31/24 12/03/24 History aspirin 81 mg tablet,delayed 81 mg PO DAILY HTN 07/31/24 12/03/24 History release (Adult Low Dose Aspirin) atorvastatin 20 mg tablet 20 mg PO QHS HYPERLIPIDEMIA 07/31/24 12/03/24 History buspirone 10 mg tablet 10 mg PO TID BIPOLAR 07/31/24 12/03/24 History calcium carbonate (Leslye-[place] 600 mg PO Q6H PRN heartburn 07/31/24 11/26/24 History Heartburn Chew) cholecalciferol (vitamin D3) 1,250 1,250 mcg PO QWEEK SUPPLEMENT 07/31/24 11/27/24 History mcg (50,000 unit) capsule gabapentin 100 mg capsule 200 mg PO TID NEUROPATHIC PAIN 07/31/24 12/03/24 History lorazepam 1 mg tablet (Ativan) 1 mg PO Q8H agitation 07/31/24 12/03/24 History metformin 1,000 mg tablet 1,000 mg PO BID DM 07/31/24 12/03/24 History sennosides 8.6 mg-docusate sodium 1 tab-cap PO DAILY CONSTIPATION 07/31/24 12/03/24 History 50 mg tablet (Colace 2-In-1) trazodone 50 mg tablet 50 mg PO QHS BIPOLAR 07/31/24 12/03/24 History vortioxetine 20 mg tablet 20 mg PO DAILY DEPRESSION 07/31/24 12/03/24 History (Trintellix) Allergy/AdvReac Type Severity Reaction Status Date / Time ibuprofen Allergy Rash Verified 07/31/24 11:57 Penicillins Allergy RASH Verified 07/31/24 11:57 Family History no significant family his Surgical History no surgical history Social History Smoking Status: Current every day smoker tobacco type: cigarettes EXAM Physical Exam Const Vital Signs: 12/04/24 10:26 12/04/24 10:31 12/04/24 10:36 Temperature 103.3 F H 103.3 F H Temperature Source Oral Oral Pulse Rate 148 H 132 H Respiratory Rate 40 H Respiratory Pattern Blood Pressure 136/79 H 136/79 H Blood Pressure Mean 98 98 Pulse Ox 79 90 91 Oxygen Delivery Method Room Air Nasal Cannula High Flow Oxygen Flow Rate (L/min) 6 12 12/04/24 10:43 12/04/24 11:22 12/04/24 11:26 Temperature Temperature Source Pulse Rate 117 H Respiratory Rate 24 H Respiratory Pattern Normal Blood Pressure 99/67 Blood Pressure Mean 77 Pulse Ox 92 Oxygen Delivery Method High Flow Oxygen Flow Rate (L/min) 9 12/04/24 11:31 12/04/24 12:00 12/04/24 13:00 Temperature 101.2 F H 101.7 F H Temperature Source Core Core Pulse Rate 109 H 101 H 86 Respiratory Rate 18 12 18 Respiratory Pattern Blood Pressure 99/67 99/64 94/68 Blood Pressure Mean 77 75 76 Pulse Ox 93 91 97 Oxygen Delivery Method High Flow High Flow Oxygen Flow Rate (L/min) 10 10 MDM MDM MDM Narrative Medical decision making narrative: 54-year-old gentleman with past medical history of HTN, COPD, HLD, schizophrenia, DM2, CVA with right-sided paralysis and wheelchair-bound presents for evaluation of nausea and vomiting. Patient is a very poor historian therefore history taken by [facility] where patient resides as well as medical record. Patient was found to be febrile today at 100.5 as well as tachycardic and tachypneic. He was 72% on room air in which she was placed on nasal cannula. On presentation, patient is alert but is tachycardic, tachypneic, febrile. Placed on 12 L high flow nasal cannula with improvement in oxygenation and tachypnea. Differential diagnosis includes but is not limited to pneumonia, viral illness, COPD exacerbation, UTI, electrolyte abnormality, dehydration. Patient made a sepsis alert. 30 cc/kg bolus not given at this time due to concern of fluid overload for respiratory status as well as patient is not hypotensive. NS bolus given for now. Will give broad antibiotics including vancomycin and cefepime. Patient has a rash to penicillins. DuoNebs and Solu-Medrol ordered. Rectal Tylenol for fever. Will monitor patient's respiratory status as he may need BiPAP or intubation if it continues to decline and not improve. Sepsis workup ordered. I did review the discharge summary from July. At that time he was admitted for acute hypoxia secondary to COVID-19 infection. ABG shows mild hypercapnia with a PCO2 57.9 however his pH is normal at 7.363. On reevaluation, patient is doing well on high flow nasal cannula he was decreased to 10 L. His tachypnea and tachycardia has improved. His fever has improved. Will continue to monitor. His blood pressure is decreasing to 99/67. Will do 30 cc/kg bolus per ideal body weight. Another 1500mL will be ordered for a total of 2.5 L. CBC with leukocytosis of 11.9. No anemia. Platelets unremarkable. INR unremarkable. CMP without significant electrolyte abnormality. Patient does have an anion gap of 17. No MICHAEL. Lactic acid 5.1. Patient receiving fluids. No transaminitis. Troponin 35. Suspect that it is elevated due to infection. UA negative for UTI. Chest x-ray was personally viewed interpreted by me, ED physician. No pneumonia, effusion, cardiomegaly, pneumothorax. Respiratory panel pending at this time. Patient will warrant admission. His respiratory status may be secondary to COPD exacerbation from viral illness versus aspiration/early pneumonia. Patinet was discussed with the hospitalist who accept admission to the ICU. 35 minutes of critical care time utilized in managing the patient. This is due to high probability of and deterioration of the patient based on the patient's condition and excludes any separately billable procedures. EKG: Interpreted by me/EM physician: EKG shows sinus tachycardia with nonspecific ST changes. Heart rate 131. Impression: 1. Sepsis unclear etiology although suspect respiratory 2. Acute hypoxic respiratory failure 3. COPD exacerbation 4. Elevated troponin 5. Lactic acidosis Lab Data Labs: Laboratory Results - last 24 hr 12/04/24 12/04/24 12/04/24 10:48 11:31 12:57 WBC 11.9 H RBC 5.06 Hgb 13.2 Hct 43.2 MCV 85.4 MCH 26.1 L MCHC 30.6 L RDW Std Deviation 45.2 H RDW Coeff of Thomas 14.6 Plt Count 236 MPV 9.6 Immature Gran % (Auto) 0.300 Neut % (Auto) 85.9 H Lymph % (Auto) 6.3 L [place] % (Auto) 6.8 Eos % (Auto) 0.5 Baso % (Auto) 0.2 Absolute Neuts (auto) 10.2 H Absolute Lymphs (auto) 0.75 L Nucleated RBC % 0 PT 13.4 INR 1.0 APTT 23.7 L Sodium 141 Potassium 4.3 Chloride 100 Carbon Dioxide 24.1 Anion Gap 17 H BUN 17 Creatinine 1.15 Estim Creat Clear Calc 86.37 Est GFR (MDRD) Non-Af 76 BUN/Creatinine Ratio 14.8 Glucose 112 H Lactic Acid 5.1 H* Calcium 9.6 Total Bilirubin 0.37 AST 17 ALT 7 Alkaline Phosphatase 148 H Troponin T High Sens 35 H Troponin T Hi Sens 2 Hr 91 H* Total Protein 7.3 Albumin 4.3 Globulin 3.0 Albumin/Globulin Ratio 1.4 Urine Color Yellow Urine Clarity Clear Urine pH 5.0 Ur Specific Diana 1.020 Urine Protein 30 H Urine Glucose (UA) Normal Urine Ketones 5 H Urine Occult Blood 50 H Urine Nitrite Negative Urine Bilirubin Negative Urine Urobilinogen Normal Ur Leukocyte Esterase 25 H Urine RBC 0-5 SEEN Urine WBC 0-5 SEEN Ur Squamous Epith Cells 0 SEEN Urine Bacteria 0 SEEN Urine Mucus 0 SEEN ABG Data ABG results: ABG 12/04/24 11:29 Specimen Type ART Sample Site L Brach pH 7.36 Bicarbonate Actual 32.9 H Total CO2 35 Base Excess 8 H O2 Saturation 91 L O2 % 8.0 ABG pCO2 57.9 H ABG pO2 66 L O2 Delivery Device Not entered Vent Mode Not entered Radiography Diagnostic Testing: Clinical Impression(s) from Imaging Studies Chest X-Ray 12/04/24 10:43 IMPRESSION: No acute process. Reading [facility] Discharge Plan Disposition Disposition: [facility] Discharge Date/Time: 12/04/24 14:20
[2024-12-04 11:04] LABS: Absolute Lymphocyte Count 0.75 X10^3/uL (0.83-4.51); Absolute Neutrophil Count 10.2 X10^3/uL (2.0-7.7); Basophil# 0.02 X10^3/uL; Basophil% 0.2 % (0-1); Eosinophil# 0.06 X10^3/uL; Eosinophils% 0.5 % (0-5); Hematocrit 43.2 % (40-54); Hemoglobin 13.2 g/dL (13.0-16.5); Lymphocyte # 0.75 X10^3/ul (0.83-4.51); Lymphocyte % 6.3 % (19-41); Mean Corp Hgb Conc 30.6 g/dL (32-36); Mean Corpuscular Hgb 26.1 pg (27.0-32.0); Mean Corpuscular Volume 85.4 fL (80-94); Mean Platelet Vol. 9.6 fl (6.2-12.0); Monocyte# 0.81 X10^3/uL; Monocyte% 6.8 % (0-10); NRBC Flagged by Analyzer 0 % (0-5); Neutrophil # 10.24 X10^3/uL (2.7-7.7); Neutrophil % 85.9 % (47-70); Platelet Count 236 K/mm3 (150-450); RBC Distribution Width CV 14.6 % (11.6-14.6); RBC Distribution Width SD 45.2 fl (35.1-43.9); Red Blood Count 5.06 M/mm3 (4.6-6.2); White Blood Count 11.9 K/mm3 (4.4-11.0)
[2024-12-04 11:16] LABS: Partial Thromboplast Time 23.7 Seconds (24.1-36.2)
[2024-12-04] MEDS: Ipratropium/Albuterol Sulfate 3 ML AMPUL.NEB 9 ML INHALATION (11:20)
[2024-12-04] MEDS: Cefepime HCl 2 GM in 0.9% Normal Saline (100mL MB+) 100 ML IV (11:24)
[2024-12-04] MEDS: Acetaminophen 650 MG Suppository 1000 MG RC (11:25)
[2024-12-04 11:27] LABS: Prothrombin Time (Protime)PT. 13.4 SECONDS (11.7-14.9)
[2024-12-04 11:33] LABS: Base Excess 8 mmol/L (-2 to +2); Bicarbonate 32.9 mmol/L (22-26); Blood Gas Specimen Type ART; Mode Not entered; O2 Delivery Device Not entered; PO2 66 mmHG (75-100); SITE L Brach; SO2 91 % (95-99); Total Carbon Dioxide 35 mmol/L; pCO2 57.9 mmHg (35-45); pH 7.36 (7.35-7.45)
[2024-12-04 11:40] LABS: Bacteria 0 SEEN /hpf (None Seen); Mucous, Urine 0 SEEN /hpf (<or=2+); Squamous Epithelial Cells - UA 0 SEEN /hpf (0-5)
[2024-12-04 11:42] LABS: ALB/GLOB Ratio 1.4 RATIO (0.9-2.4); AST(SGOT) 17 U/L (<=37); Alanine Aminotransfer ALT/SGPT 7 U/L (<=46); Albumin, Serum 4.3 g/dL (3.5-5.0); Alkaline Phosphatase 148 U/L (40-129); Anion Gap 17 (5-15); BUN 17 mg/dL (4-19); BUN/Creat Ratio 14.8 RATIO (10-20); Calcium,Total 9.6 mg/dL (7.6-11.0); Carbon Dioxide 24.1 mmol/L (21.0-32.0); Chloride 100 mmol/L (98-108); Creatinine, Serum 1.15 mg/dL (0.70-1.20); EST Glomerular Filtration Rate 76 (>60); Estimated Creatinine Clearance 86.37 ml/min (50-250); Glucose 112 mg/dL (70-99); Potassium 4.3 mmol/L (3.3-5.1); Protein, Total 7.3 g/dL (5.9-8.4); Sodium Level 141 mmol/L (133-145); Total Bilirubin 0.37 mg/dL (0.00-1.30)
[2024-12-04 11:43] LABS: Color, Urine Yellow (Yellow); Glucose, Dipstick Normal (Normal); Ketone-Dipstick 5 mg/dl (Negative); Leukocyte Esterase-Dipstick 25 /ul (Negative); Nitrite-Dipstick Negative (Negative); Occult Blood-Urine 50 /ul (Negative); Protein-Dipstick 30 mg/dl (Negative); Urine Bilirubin Dipstick Negative (Negative); Urine Clarity Clear (Clear); Urine Urobilinogen Normal (Normal)
[2024-12-04 11:48] LABS: Troponin T High Sensitivity 35 ng/L (<=22)
[2024-12-04 11:49] LABS: Red Blood Cells-Urine 0-5 SEEN /hpf (0-5); White Blood Cells 0-5 SEEN /hpf (0-5)
[2024-12-04 11:50] LABS: Lactic Acid 5.1 mmol/L (0.0-2.0)
--- NOTE | 2024-12-04 11:50 | ED.RN ---
Critical Lactic acid of 5.[address] Deluna notified.
[2024-12-04] MEDS: Vancomycin HCl 2,000 MG in 0.9% Normal Saline (500mL Bag) 500 ML 250 MG IV (11:53)
--- NOTE | 2024-12-04 12:48 | PCM.HP.STD ---
HPI - General General Date of Admission: 12/04/24 Date of Service: 12/04/24 Chief Complaint: nausea, vomiting HPI Narrative GUERDA SULLIVAN, is a 54 M with a PMH as outlined who presents from his SNF on 12/04/2024 with a complaint of nausea and vomiting. HE lives in [facility] where he resides. HE was brought in from the SNF due to fever and tachypnea as well as tachycardia. HE had nausea and vomiting today and became acutely short of breath. He denied any chest pain, and was also febrile. He was saturating at 72% on room air and slightly placed on nasal cannula and the EMS called. He was brought him in the ED. Vitals in the ED were blood pressure of 99/64, pulse rate of 101, respiratory rate of 12 and temperature 101.7 ?F. He was saturating at 91% on 10 L of oxygen. CBC showed hemoglobin of 13.2 with WBC of 11.9 and platelets of 236. INR is 1. ABG done showed pH of 7.36 with oxygen saturation of 91% and pO2 of 66 as well as pCO2 of 57.9. Chemistry showed sodium of 141 potassium of 4.3 and bicarb of 24.1. Creatinine was 1.15. Lactic acid was 5.1. ALP was 148. AST, ALT and total bilirubin were normal. Urinalysis showed no evidence of UTI. Chest x-ray showed no acute cardiopulmonary pathology. EKG showed no acute ST changes. Urinalysis showed no evidence of UTI. He has been admitted to be managed for acute hypoxic and hypercapnic respiratory failure due to COPD exacerbation with probable aspiration pneumonia. [facility] Medical History CVA (cerebral vascular accident) Depression Diabetes Bipolar 1 disorder HLD (hyperlipidemia) HTN (hypertension) Schizophrenia COVID-19 virus infection Home Medications ?Medication ?Instructions ?Recorded ?Last Taken ?Type acetaminophen 325 mg tablet 650 mg PO Q4H PRN fever or pain 07/31/24 Unknown History (Aminofen) aripiprazole 15 mg tablet (Abilify) 15 mg PO DAILY SCHIZOPHRENIA 07/31/24 12/03/24 History aspirin 81 mg tablet,delayed 81 mg PO DAILY HTN 07/31/24 12/03/24 History release (Adult Low Dose Aspirin) atorvastatin 20 mg tablet 20 mg PO QHS HYPERLIPIDEMIA 07/31/24 12/03/24 History buspirone 10 mg tablet 10 mg PO TID BIPOLAR 07/31/24 12/03/24 History calcium carbonate (Leslye-[place] 600 mg PO Q6H PRN heartburn 07/31/24 11/26/24 History Heartburn Chew) cholecalciferol (vitamin D3) 1,250 1,250 mcg PO QWEEK SUPPLEMENT 07/31/24 11/27/24 History mcg (50,000 unit) capsule gabapentin 100 mg capsule 200 mg PO TID NEUROPATHIC PAIN 07/31/24 12/03/24 History lorazepam 1 mg tablet (Ativan) 1 mg PO Q8H agitation 07/31/24 12/03/24 History metformin 1,000 mg tablet 1,000 mg PO BID DM 07/31/24 12/03/24 History sennosides 8.6 mg-docusate sodium 1 tab-cap PO DAILY CONSTIPATION 07/31/24 12/03/24 History 50 mg tablet (Colace 2-In-1) trazodone 50 mg tablet 50 mg PO QHS BIPOLAR 07/31/24 12/03/24 History vortioxetine 20 mg tablet 20 mg PO DAILY DEPRESSION 07/31/24 12/03/24 History (Trintellix) Allergy/AdvReac Type Severity Reaction Status Date / Time ibuprofen Allergy Rash Verified 07/31/24 11:57 Penicillins Allergy RASH Verified 07/31/24 11:57 Family History no significant family his Surgical History no surgical history Social History Smoking Status: Current every day smoker tobacco type: cigarettes ROS Constitutional Constitutional: Reports fatigue and malaise; Denies anorexia, chills or fever(s) Eyes Eyes: Denies change in vision ENT HEENT: Denies dysphagia, headache(s) or sore throat Cardiovascular Cardiovascular: Denies chest pain, dyspnea on exertion, edema, lightheadedness or orthopnea Respiratory/Chest Respiratory/Chest: Reports cough, dyspnea, productive cough, shortness of breath at rest and shortness of breath with exertion; Denies wheezing Gastrointestinal Gastrointestinal: Reports nausea and vomiting; Denies abdominal pain, constipation, diarrhea, dyspepsia or hematemesis Genitourinary Genitourinary: Denies dysuria Neurologic Neurologic: Denies confusion, dizziness, focal weakness, headache(s), numbness, paresthesias, seizure-like activity, seizures or syncope Psychiatric Psychiatric: Denies anxiety Vital Signs Vital Signs Vital Signs: 12/04/24 10:26 12/04/24 10:31 12/04/24 10:36 Temperature 103.3 F H 103.3 F H Temperature Source Oral Oral Pulse Rate 148 H 132 H Respiratory Rate 40 H Respiratory Pattern Blood Pressure 136/79 H 136/79 H Blood Pressure Mean 98 98 Pulse Ox 79 90 91 Oxygen Delivery Method Room Air Nasal Cannula High Flow Oxygen Flow Rate (L/min) 6 12 12/04/24 10:43 12/04/24 11:22 12/04/24 11:26 Temperature Temperature Source Pulse Rate 117 H Respiratory Rate 24 H Respiratory Pattern Normal Blood Pressure 99/67 Blood Pressure Mean 77 Pulse Ox 92 Oxygen Delivery Method High Flow Oxygen Flow Rate (L/min) 9 12/04/24 11:31 12/04/24 12:00 Temperature 101.2 F H 101.7 F H Temperature Source Core Core Pulse Rate 109 H 101 H Respiratory Rate 18 12 Respiratory Pattern Blood Pressure 99/67 99/64 Blood Pressure Mean 77 75 Pulse Ox 93 91 Oxygen Delivery Method High Flow High Flow Oxygen Flow Rate (L/min) 10 10 Weight Weight: 232 lb 2.348 oz Body Mass Index (BMI) 35.3 Physical Exam Const alert Constitutional Narrative: Week, able to answer questions Orientation / Consciousness: lethargic HEENT normocephalic and head/scalp atraumatic HEENT Narrative: dry oral mucosa Mouth: oral and palatal mucosa normal Eyes PERRL and EOMs intact bilaterally Neck no lymphadenopathy and supple Resp normal respiratory effort, no use of accessory muscles and clear to auscultation bilaterally Resp Narrative: mildly diminished breath sounds bibasally, no wheezes or crackles. On 2L of oxygen. Cardio regular rate, regular rhythm and no murmurs GI normal to inspection, nondistended, normoactive bowel sounds, soft to palpation and non-tender Extremity normal to inspection, full ROM and no clubbing, cyanosis or edema Neuro moves all extremities Neuro Narrative: flat affect Sensorium / Orientation: awake and alert Psych Psych Narrative: flat affect, moves all extremities spontaneously Results Lab / Micro Data 12/04/24 10:48 12/04/24 10:48 Labs: Laboratory Results - last 24 hr 12/04/24 10:48: WBC 11.9 H, RBC 5.06, Hgb 13.2, Hct 43.2, MCV 85.4, MCH 26.1 L, MCHC 30.6 L, RDW Std Deviation 45.2 H, RDW Coeff of Thomas 14.6, Plt Count 236, MPV 9.6, Immature Gran % (Auto) 0.300, Neut % (Auto) 85.9 H, Lymph % (Auto) 6.3 L, [place] % (Auto) 6.8, Eos % (Auto) 0.5, Baso % (Auto) 0.2, Absolute Neuts (auto) 10.2 H, Absolute Lymphs (auto) 0.75 L, Nucleated RBC % 0, PT 13.4, INR 1.0, APTT 23.7 L, Sodium 141, Potassium 4.3, Chloride 100, Carbon Dioxide 24.1, Anion Gap 17 H, BUN 17, Creatinine 1.15, Estim Creat Clear Calc 86.37, Est GFR (MDRD) Non-Af 76, BUN/Creatinine Ratio 14.8, Glucose 112 H, Lactic Acid 5.1 H*, Calcium 9.6, Total Bilirubin 0.37, AST 17, ALT 7, Alkaline Phosphatase 148 H, Troponin T High Sens 35 H, Total Protein 7.3, Albumin 4.3, Globulin 3.0, Albumin/Globulin Ratio 1.4 12/04/24 11:31: Urine Color Yellow, Urine Clarity Clear, Urine pH 5.0, Ur Specific [place] 1.020, Urine Protein 30 H, Urine Glucose (UA) Normal, Urine Ketones 5 H, Urine Occult Blood 50 H, Urine Nitrite Negative, Urine Bilirubin Negative, Urine Urobilinogen Normal, Ur Leukocyte Esterase 25 H, Urine RBC 0-5 SEEN, Urine WBC 0-5 SEEN, Ur Squamous Epith Cells 0 SEEN, Urine Bacteria 0 SEEN, Urine Mucus 0 SEEN ABG Data ABG results: ABG 12/04/24 11:29 Specimen Type ART Sample Site L Brach pH 7.36 Bicarbonate Actual 32.9 H Total CO2 35 Base Excess 8 H O2 Saturation 91 L O2 % 8.0 ABG pCO2 57.9 H ABG pO2 66 L O2 Delivery Device Not entered Vent Mode Not entered Imaging Radiology Impression Chest X-Ray 12/04/24 10:43 IMPRESSION: No acute process. Reading Location: [facility] Assessment & Plan Assessment/Plan (1) Acidosis, lactic: (2) Hypotension: (3) Acute hypoxic respiratory failure: PLAN: Plan #Acute on chronic hypoxic and hypercapnic respiratory failure due to COPD exacerbation and probable aspiration pneumonia Admit to ICU. Admitted with a complaint of nausea and vomiting and found to be hypoxic. On 10 L of oxygen and temperature is 101.7 ?F. Lactic acid was also elevated at 5.1. Chest x-ray however did not show any evidence of acute cardiopulmonary pathology. However he may be dehydrated and with his vomiting I suspect he may have some aspiration pneumonia Will admit to ICU as a precaution. Titrate oxygen to maintain saturation above 90%. Consult critical care. Started on IV Zosyn. Hydrate gently with IV fluids. Breathing treatments bronchodilators. Titrate oxygen to maintain saturation above 90%. Sputum cultures. Blood cultures also ordered. IV solumedrol #Type II diabetes mellitus: Hold oral meds. ISS. accuchecks ACHS #Lactic acidosis: Lactic acid was 5.1. Likely due to hypoxia. Should improve as hypoxia resolves #Schizophrenia and bipolar disorder: On Abilify and buspirone. On ativan prn #Hyperlipidemia: On statin #Depression; on trintellix. DVT prophylaxis: lovenox CODE STATUS: Full code Charges/Coding Visit Charges Inpatient E&M: 16527 Init Hosp L3
--- NOTE | 2024-12-04 12:57 | ED.RN ---
Dr Deluna notified of BP of
[2024-12-04 13:37] LABS: Troponin T High Sens 2 HR 91 ng/L (<=22)
[2024-12-04 14:56] LABS: Reflex Lactate? Y
[2024-12-04] MEDS: 0.9% Normal Saline (1000mL) 1,000 ML 125 ML IV ×2 (15:31→22:41)
[2024-12-04 15:44] LABS: Lactic Acid < 1.0 mmol/L (0.0-2.0)
[2024-12-04] MEDS: busPIRone 5 MG Tablet 10 MG PO ×2 (17:23→21:00)
[2024-12-04] MEDS: Ergocalciferol 1.25 MG (50, 000 UNIT) Capsule PO (17:24)
[2024-12-04] MEDS: LORazepam 1 MG Tablet PO ×2 (17:25→21:00)
[2024-12-04] MEDS: Gabapentin 100 MG Capsule 200 MG PO ×2 (17:25→21:00)
[2024-12-04] MEDS: Cefepime HCl 1 GM in 0.9% Normal Saline (50mL MB+) 50 ML IV (20:59)
[2024-12-04] MEDS: traZODone 50 MG Tablet PO (21:00)
[2024-12-04] MEDS: Atorvastatin Calcium 20 MG Tablet PO (21:00)
[2024-12-05] VITALS (17 sets, daily range): BP systolic 95–133; BP diastolic 61–108; PULSE 47–69; RESP 13–23; TEMP 35.8–36.6; O2SAT 93–98; BMI 34.4
[2024-12-05] MEDS: Gabapentin 100 MG Capsule 200 MG PO ×3 (05:21→22:23)
[2024-12-05] MEDS: LORazepam 1 MG Tablet PO ×3 (05:21→22:23)
[2024-12-05] MEDS: Cefepime HCl 1 GM in 0.9% Normal Saline (50mL MB+) 50 ML IV ×3 (05:21→22:23)
[2024-12-05] MEDS: busPIRone 5 MG Tablet 10 MG PO ×3 (05:22→22:22)
[2024-12-05 06:13] LABS: Absolute Lymphocyte Count 1.35 X10^3/uL (0.83-4.51); Absolute Neutrophil Count 9.1 X10^3/uL (2.0-7.7); Basophil# 0.02 X10^3/uL; Basophil% 0.2 % (0-1); Eosinophil# 0.01 X10^3/uL; Eosinophils% 0.1 % (0-5); Hematocrit 37.5 % (40-54); Hemoglobin 11.5 g/dL (13.0-16.5); Lymphocyte # 1.35 X10^3/ul (0.83-4.51); Lymphocyte % 11.6 % (19-41); Mean Corp Hgb Conc 30.7 g/dL (32-36); Mean Corpuscular Hgb 26.4 pg (27.0-32.0); Mean Corpuscular Volume 86.2 fL (80-94); Mean Platelet Vol. 10.4 fl (6.2-12.0); Monocyte% 9.4 % (0-10); NRBC Flagged by Analyzer 0 % (0-5); Neutrophil # 9.14 X10^3/uL (2.7-7.7); Neutrophil % 78.4 % (47-70); Platelet Count 217 K/mm3 (150-450); RBC Distribution Width CV 14.7 % (11.6-14.6); RBC Distribution Width SD 46.1 fl (35.1-43.9); Red Blood Count 4.35 M/mm3 (4.6-6.2); White Blood Count 11.7 K/mm3 (4.4-11.0)
[2024-12-05 06:45] LABS: Anion Gap 9 (5-15); BUN 17 mg/dL (4-19); BUN/Creat Ratio 18.3 RATIO (10-20); Calcium,Total 8.6 mg/dL (7.6-11.0); Carbon Dioxide 24.2 mmol/L (21.0-32.0); Chloride 108 mmol/L (98-108); Creatinine, Serum 0.94 mg/dL (0.70-1.20); EST Glomerular Filtration Rate 96 (>60); Estimated Creatinine Clearance 104.55 ml/min (50-250); Glucose 147 mg/dL (70-99); Potassium 4.9 mmol/L (3.3-5.1); Sodium Level 141 mmol/L (133-145)
--- NOTE | 2024-12-05 06:52 | EX.PCM.CONCC ---
Assessment & Plan Assessment/Plan (1) Sepsis: PLAN: Plan RECOMMENDATIONS: 1. Empiric antimicrobials, pending culture results. 2. Check enteric pathogen panel. 3. Supplemental oxygen, if needed, to maintain saturations at or above 90%. 4. Continue appropriate DVT prophylaxis. 5. Encourage incentive spirometer use and mobilize patient as tolerated. 6. The patient is medically stable for transfer out of the intensive care unit. IMPRESSIONS: 1. Sepsis The patient was initially admitted to the hospital with sepsis over concerns for possible aspiration pneumonia. However, the patient's chest imaging was not overtly concerning for any evidence of focal infiltrate or consolidation. He did present with nausea and vomiting with possible gastroenteritis. However, no diarrhea has been noted. At this time, the exact source of infection is not entirely clear. Repeat chest x-ray from this morning again demonstrated no focal infiltrate or consolidation. The patient appears to have defervesced with supplemental IV fluids and antimicrobials. Will continue antimicrobials, pending blood and urine culture results. Will check enteric pathogen panel. Otherwise, continue current supportive care. 2. Chronic tobacco dependency with probable obstructive lung disease While the patient was initially admitted with a supplemental oxygen requirement, he has been weaned to room air this morning. He does have an extensive tobacco abuse history and would likely benefit from having baseline PFTs completed. This cannot be accomplished on an outpatient basis. Encourage incentive spirometer use and mobilize patient as tolerated. 3. History of schizophrenia and bipolar disorder/depression/hyperlipidemia Complicates care, management, recovery and prognosis. Continue home medications as indicated. This note was generated with ZEB dictation software. It may contain incorrect words, spelling, and punctuation that were not noted in checking the note before signing. HPI Consult Data Date of Consult: 12/05/24 HPI Narrative Reason for Consultation: Sepsis HPI Narrative: The patient is a 54-year-old male, with a history as outlined below, who presented to the emergency department via EMS on December 04 with nausea and vomiting. The patient endorsed a longstanding history of tobacco dependency, but is not currently followed by a psychologist chief, nor has he ever been diagnosed with COPD. He reported that he does not utilize supplemental oxygen at his baseline. On presentation to the emergency department, the patient was documented to be febrile, tachycardic and tachypneic. Laboratory evaluation was notable for a white blood cell count of 12,000. Chemistry profile revealed a normal creatinine with a lactate of 5.1. Troponin was mildly elevated at 91. Urine analysis was unremarkable. Chest x-ray demonstrated no acute cardiopulmonary process. Respiratory viral panel was negative. Blood and urine cultures are pending. The patient was subsequently placed on antimicrobials and admitted to the medical intensive care unit with supplemental IV fluids. This morning, the patient is hemodynamically stable and maintaining appropriate oxygen saturations on room air. His lactic acidemia has resolved. Repeat chest x-ray from this morning demonstrated no focal infiltrate or consolidation. [facility] Medical History (Updated 12/05/24 @ 09:[address] Ean Quintana, DO) CVA (cerebral vascular accident) Depression Diabetes Bipolar 1 disorder HLD (hyperlipidemia) HTN (hypertension) Schizophrenia COVID-19 virus infection Home Medications ?Medication ?Instructions ?Recorded ?Last Taken ?Type acetaminophen 325 mg tablet 650 mg PO Q4H PRN fever or pain 07/31/24 Unknown History (Aminofen) aripiprazole 15 mg tablet (Abilify) 15 mg PO DAILY SCHIZOPHRENIA 07/31/24 12/03/24 History aspirin 81 mg tablet,delayed 81 mg PO DAILY HTN 07/31/24 12/03/24 History release (Adult Low Dose Aspirin) atorvastatin 20 mg tablet 20 mg PO QHS HYPERLIPIDEMIA 07/31/24 12/03/24 History buspirone 10 mg tablet 10 mg PO TID BIPOLAR 07/31/24 12/03/24 History calcium carbonate (Leslye-[place] 600 mg PO Q6H PRN heartburn 07/31/24 11/26/24 History Heartburn Chew) cholecalciferol (vitamin D3) 1,250 1,250 mcg PO QWEEK SUPPLEMENT 07/31/24 11/27/24 History mcg (50,000 unit) capsule gabapentin 100 mg capsule 200 mg PO TID NEUROPATHIC PAIN 07/31/24 12/03/24 History lorazepam 1 mg tablet (Ativan) 1 mg PO Q8H agitation 07/31/24 12/03/24 History metformin 1,000 mg tablet 1,000 mg PO BID DM 07/31/24 12/03/24 History sennosides 8.6 mg-docusate sodium 1 tab-cap PO DAILY CONSTIPATION 07/31/24 12/03/24 History 50 mg tablet (Colace 2-In-1) trazodone 50 mg tablet 50 mg PO QHS BIPOLAR 07/31/24 12/03/24 History vortioxetine 20 mg tablet 20 mg PO DAILY DEPRESSION 07/31/24 12/03/24 History (Trintellix) Allergy/AdvReac Type Severity Reaction Status Date / Time ibuprofen Allergy Rash Verified 07/31/24 11:57 Penicillins Allergy RASH Verified 07/31/24 11:57 Family History no significant family his Surgical History no surgical history Social History Smoking Status: Current every day smoker tobacco type: cigarettes ROS ROS Narrative 10 systems were reviewed with pertinent positives as noted in the HPI above. Physical Exam Const alert and no apparent distress Constitutional Narrative: Rather unkempt in appearance. Obese. General Appearance: cooperative HEENT normocephalic, head/scalp atraumatic and moist oral mucous membranes Eyes PERRL, EOMs intact bilaterally and conjunctivae normal Neck supple General: trachea midline Chest inspection of chest normal Resp normal respiratory effort Auscultation: diminished lung sounds; Negative for rales, rhonchi or wheezes Cardio regular rate and regular rhythm GI normal to inspection, nondistended, normoactive bowel sounds Extremity no clubbing, cyanosis or edema Skin no rashes or lesions noted Neuro CN's II-XII intact bilaterally, moves all extremities and no focal motor deficits Psych Mood & Affect: flat affect Lab / Micro Data 12/05/24 05:55 12/05/24 05:55 Labs: Laboratory Results - last 24 hr 12/04/24 10:48: WBC 11.9 H, RBC 5.06, Hgb 13.2, Hct 43.2, MCV 85.4, MCH 26.1 L, MCHC 30.6 L, RDW Std Deviation 45.2 H, RDW Coeff of [place] 14.6, Plt Count 236, MPV 9.6, Immature Gran % (Auto) 0.300, Neut % (Auto) 85.9 H, Lymph % (Auto) 6.3 L, [place] % (Auto) 6.8, Eos % (Auto) 0.5, Baso % (Auto) 0.2, Absolute Neuts (auto) 10.2 H, Absolute Lymphs (auto) 0.75 L, Nucleated RBC % 0, PT 13.4, INR 1.0, APTT 23.7 L, Sodium 141, Potassium 4.3, Chloride 100, Carbon Dioxide 24.1, Anion Gap 17 H, BUN 17, Creatinine 1.15, Estim Creat Clear Calc 86.37, Est GFR (MDRD) Non-Af 76, BUN/Creatinine Ratio 14.8, Glucose 112 H, Lactic Acid 5.1 H*, Calcium 9.6, Total Bilirubin 0.37, AST 17, ALT 7, Alkaline Phosphatase 148 H, Troponin T High Sens 35 H, Total Protein 7.3, Albumin 4.3, Globulin 3.0, Albumin/Globulin Ratio 1.4 12/04/24 11:31: Urine Color Yellow, Urine Clarity Clear, Urine pH 5.0, Ur Specific [place] 1.020, Urine Protein 30 H, Urine Glucose (UA) Normal, Urine Ketones 5 H, Urine Occult Blood 50 H, Urine Nitrite Negative, Urine Bilirubin Negative, Urine Urobilinogen Normal, Ur Leukocyte Esterase 25 H, Urine RBC 0-5 SEEN, Urine WBC 0-5 SEEN, Ur Squamous Epith Cells 0 SEEN, Urine Bacteria 0 SEEN, Urine Mucus 0 SEEN 12/04/24 12:57: Troponin T Hi Sens 2 Hr 91 H* 12/04/24 15:10: Lactic Acid < 1.0 12/05/24 05:55: WBC 11.7 H, RBC 4.35 L, Hgb 11.5 L, Hct 37.5 L, MCV 86.2, MCH 26.4 L, MCHC 30.7 L, RDW Std Deviation 46.1 H, RDW Coeff of [place] 14.7 H, Plt Count 217, MPV 10.4, Immature Gran % (Auto) 0.300, Neut % (Auto) 78.4 H, Lymph % (Auto) 11.6 L, [place] % (Auto) 9.4, Eos % (Auto) 0.1, Baso % (Auto) 0.2, Absolute Neuts (auto) 9.1 H, Absolute Lymphs (auto) 1.35, Nucleated RBC % 0, Sodium 141, Potassium 4.9, Chloride 108, Carbon Dioxide 24.2, Anion Gap 9, BUN 17, Creatinine 0.94, Estim Creat Clear Calc 104.55, Est GFR (MDRD) Non-Af 96, BUN/Creatinine Ratio 18.3, Glucose 147 H, Calcium 8.6 Micro: Microbiology 12/04/24 11:20 Mucosa - Nose Respiratory Panel (PCR) - Final ABG Data ABG results: ABG 12/04/24 11:29 Specimen Type ART Sample Site L Brach pH 7.36 Bicarbonate Actual 32.9 H Total CO2 35 Base Excess 8 H O2 Saturation 91 L O2 % 8.0 ABG pCO2 57.9 H ABG pO2 66 L O2 Delivery Device Not entered Vent Mode Not entered Imaging Radiology Impression Chest X-Ray 12/04/24 10:43 IMPRESSION: No acute process. Reading [facility] Charges/Coding Visit Charges Inpatient E&M: 10257 Init Hosp L3
--- NOTE | 2024-12-05 07:22 | RAD_ITS ---
PROCEDURE: CHEST 1 VIEW (PORTABLE) 12/05/2024 REASON FOR EXAM: SEPSIS TECHNIQUE: Frontal view of the chest. COMPARISON: 12/04/2024. FINDINGS: Interval appearance of mild bilateral basilar atelectatic pulmonary changes. There is no demonstrated pleural abnormality. Enlarged cardiac silhouette. Normal mediastinum and mirtha. Normal visualized pulmonary arteries. Atheromatous plaques of the visualized aortic arch and descending thoracic aorta. Diffuse spondylosis of the visualized thoracic spine. Normal visualized ribs, clavicles. Degenerative joint disease. There is no demonstrated abnormality of the visualized soft tissue structures of the upper abdomen. RAD/Chest 1 View (Portable) IMPRESSION: Interval appearance of mild bilateral basilar atelectatic pulmonary changes. Reading Location[facility]
[2024-12-05] MEDS: VORTIOXETINE HYDROBROMIDE 20 MG TABLET PO (08:48)
[2024-12-05] MEDS: Aspirin E.C. 81 MG Tablet PO (08:48)
[2024-12-05] MEDS: Enoxaparin 40 MG/0.4 ML Syringe SC (08:48)
[2024-12-05] MEDS: ARIPiprazole 5 MG Tablet 15 MG PO (08:48)
[2024-12-05] MEDS: Senna/Docusate Sodium 1 Tablet PO (08:49)
--- NOTE | 2024-12-05 14:19 | PN_ITS ---
Subjective Subjective Patient seen and examined. He feels much better today. He is on room air. He is feeling much better. Review of symptoms otherwise negative. He has remained hemodynamically stable. Objective Data Objective Data Vital Signs: Vital Signs Temp Pulse Resp BP Pulse Ox O2 Del Method O2 Flow Rate 97.6 F L 67 22 H 127/108 H 93 Room Air 2 12/05/24 12:00 12/05/24 14:00 12/05/24 14:00 12/05/24 14:00 12/05/24 12:00 12/05/24 12:30 12/05/24 07:00 Oxygen Flow Rate (L/min) 2 Oxygen Delivery Method Room Air Weight: 227 lb 4.8 oz Body Mass Index (BMI) 34.4 Intake & Output: Intake and Output for Last 24 Hours 12/03/24 12/04/24 12/05/24 23:59 23:59 23:59 Intake Total 4825.83 / 4825.83 1004.17 / 1004.17 Output Total 1750 / 1750 2500 / 2500 Balance 3075.83 / 3075.83 -1495.83 / -1495.83 Lab / Micro Data 12/05/24 05:55 12/05/24 05:55 Labs: Laboratory Results - last 24 hr 12/04/24 15:10: Lactic Acid < 1.0 12/05/24 05:55: WBC 11.7 H, RBC 4.35 L, Hgb 11.5 L, Hct 37.5 L, MCV 86.2, MCH 26.4 L, MCHC 30.7 L, RDW Std Deviation 46.1 H, RDW Coeff of [place] 14.7 H, Plt Count 217, MPV 10.4, Immature Gran % (Auto) 0.300, Neut % (Auto) 78.4 H, Lymph % (Auto) 11.6 L, [place] % (Auto) 9.4, Eos % (Auto) 0.1, Baso % (Auto) 0.2, Absolute Neuts (auto) 9.1 H, Absolute Lymphs (auto) 1.35, Nucleated RBC % 0, Sodium 141, Potassium 4.9, Chloride 108, Carbon Dioxide 24.2, Anion Gap 9, BUN 17, Creatinine 0.94, Estim Creat Clear Calc 104.55, Est GFR (MDRD) Non-Af 96, BUN/Creatinine Ratio 18.3, Glucose 147 H, Calcium 8.6 Micro: Microbiology 12/04/24 11:31 Urine, Clean Catch Urine Culture - Preliminary Gram negative winter 12/04/24 11:20 Mucosa - Nose Respiratory Panel (PCR) - Final Radiography Diagnostic Testing: Radiology Impression Chest X-Ray 12/05/24 07:22 IMPRESSION: Interval appearance of mild bilateral basilar atelectatic pulmonary changes. Reading Location: [place] [address] Physical Exam Const alert and no apparent distress Orientation / Consciousness: lethargic HEENT normocephalic and head/scalp atraumatic Eyes PERRL and EOMs intact bilaterally Neck supple and no JVD Resp normal respiratory effort, no use of accessory muscles and clear to auscultation bilaterally Resp Narrative: mildly diminished breath sounds bibasally, no wheezes or crackles. now on room air. Cardio regular rate, regular rhythm and no murmurs GI normal to inspection, nondistended, normoactive bowel sounds, soft to palpation and non-tender Extremity normal to inspection, full ROM and no clubbing, cyanosis or edema Neuro moves all extremities Neuro Narrative: flat affect Sensorium / Orientation: awake and alert Motor Exam: general weakness Psych Psych Narrative: flat affect, moves all extremities spontaneously Mood & Affect: flat affect Assessment & Plan Assessment/Plan (1) Acidosis, lactic: (2) Hypotension: (3) Acute hypoxic respiratory failure: PLAN: Plan #Acute on chronic hypoxic and hypercapnic respiratory failure due to COPD exacerbation and probable aspiration pneumonia * Weaned off of oxygen and now on room air. * Breathing treatments bronchodilators. On IV Solu-Medrol. Titrate oxygen to maintain saturation above 90%. * Transfer [facility] of ICU to [facility] today. * #Type II diabetes mellitus: Hold oral meds. ISS. accuchecks ACHS #Lactic acidosis: Lactic acid was 5.1. Likely due to hypoxia. Should improve as hypoxia resolves #Schizophrenia and bipolar disorder: On Abilify and buspirone. On ativan prn #Hyperlipidemia: On statin #Depression; on trintellix. DVT prophylaxis: lovenox CODE STATUS: Full code Disposition: Anticipate DC home back tomorrow. I want to watch him overnight to make sure that he remains on room air and his shortness of breath does not recur. Charges/Coding Visit Charges Inpatient E&M: 90749 Subs Hosp L2
--- NOTE | 2024-12-05 14:29 | CASEMGMT ---
Social Work- SW participated in interdisciplinary rounds with care team. Bedside nurse reports that sister just called in to receive updates and confirm return to [facility]. SW verified with hospitalist that precert could be started at this time. DCA updated. EDDIE remains available to follow. OTONIEL Hill
--- NOTE | 2024-12-05 14:49 | CASEMGMT ---
Discharge Planning Updates faxed to [facility]. Fax confirmation rec'd. Nina Tran DC Planning Asst.
[2024-12-05] MEDS: traZODone 50 MG Tablet PO (22:22)
[2024-12-05] MEDS: Atorvastatin Calcium 20 MG Tablet PO (22:23)
[2024-12-05] MEDS: 0.9% Normal Saline (250mL Bag) 250 ML 15 ML IV (22:23)
[2024-12-05] MEDS: Acetaminophen 325 MG Tablet 650 MG PO (22:39)
[2024-12-05 22:49] LABS: Bedside Glucose 116 mg/dL (74-106)
[2024-12-06 04:30] VITALS: BP 94/61; PULSE 62; RESP 17; TEMP 36.8; O2SAT 92
[2024-12-06 05:43] VITALS: BP 110/62; PULSE 64; RESP 16; TEMP 36.7; O2SAT 94
[2024-12-06] MEDS: Gabapentin 100 MG Capsule 200 MG PO ×2 (05:45→14:52)
[2024-12-06] MEDS: Cefepime HCl 1 GM in 0.9% Normal Saline (50mL MB+) 50 ML IV (05:45)
[2024-12-06] MEDS: LORazepam 1 MG Tablet PO ×2 (05:45→14:52)
[2024-12-06] MEDS: busPIRone 5 MG Tablet 10 MG PO ×2 (05:49→14:52)
[2024-12-06 06:13] LABS: Absolute Lymphocyte Count 2.54 X10^3/uL (0.83-4.51); Absolute Neutrophil Count 7.2 X10^3/uL (2.0-7.7); Basophil# 0.03 X10^3/uL; Basophil% 0.3 % (0-1); Eosinophil# 0.13 X10^3/uL; Eosinophils% 1.2 % (0-5); Hematocrit 37.8 % (40-54); Hemoglobin 11.7 g/dL (13.0-16.5); Lymphocyte # 2.54 X10^3/ul (0.83-4.51); Lymphocyte % 23.6 % (19-41); Mean Corpuscular Hgb 26.5 pg (27.0-32.0); Mean Corpuscular Volume 85.7 fL (80-94); Monocyte# 0.86 X10^3/uL; NRBC Flagged by Analyzer 0 % (0-5); Neutrophil # 7.18 X10^3/uL (2.7-7.7); Neutrophil % 66.6 % (47-70); Platelet Count 222 K/mm3 (150-450); RBC Distribution Width CV 14.5 % (11.6-14.6); RBC Distribution Width SD 45.2 fl (35.1-43.9); Red Blood Count 4.41 M/mm3 (4.6-6.2); White Blood Count 10.8 K/mm3 (4.4-11.0)
[2024-12-06 06:24] LABS: Bedside Glucose 84 mg/dL (74-106)
[2024-12-06 06:44] LABS: Anion Gap 9 (5-15); BUN 16 mg/dL (4-19); BUN/Creat Ratio 14.5 RATIO (10-20); Chloride 106 mmol/L (98-108); Creatinine, Serum 1.07 mg/dL (0.70-1.20); EST Glomerular Filtration Rate 82 (>60); Estimated Creatinine Clearance 91.85 ml/min (50-250); Glucose 90 mg/dL (70-99); Potassium 4.3 mmol/L (3.3-5.1); Sodium Level 142 mmol/L (133-145)
[2024-12-06 09:38] VITALS: BP 103/64; PULSE 76; RESP 18; TEMP 36.4; O2SAT 93
[2024-12-06] MEDS: VORTIOXETINE HYDROBROMIDE 20 MG TABLET PO (10:04)
[2024-12-06] MEDS: ARIPiprazole 5 MG Tablet 15 MG PO (10:04)
[2024-12-06] MEDS: Senna/Docusate Sodium 1 Tablet PO (10:05)
[2024-12-06] MEDS: Aspirin E.C. 81 MG Tablet PO (10:05)
[2024-12-06] MEDS: Enoxaparin 40 MG/0.4 ML Syringe SC (10:05)
[2024-12-06 11:35] LABS: Bedside Glucose 90 mg/dL (74-106)
[2024-12-06 13:33] VITALS: BP 114/82; PULSE 76; RESP 16; TEMP 36.6; O2SAT 95
--- NOTE | 2024-12-06 13:33 | PCM.TXEXTCAR ---
Diet Diet Order/Speech Therapy: INPATIENT Hospital Diet / Speech Therapy Order(s) 12/04/24 14:45 Diabetic [Diet: Consistent Carb - Calorie Controlled] How many daily calories?: 2000 calorie Routine Orders/Code Status Enema Type: Fleetz Enema Frequency: Daily PRN Suppository Type: Dulcolax 10mg DC O2, CPAP, BIPAP needs Home O2 Discharge instructions: No Therapies Weight Bearing: Weight bearing as tolerated Problem/Diagnosis (1) Acidosis, lactic: Status: Acute Code(s): E87.20 - Acidosis, unspecified (2) Hypotension: Status: Acute Code(s): I95.9 - Hypotension, unspecified (3) Acute hypoxic respiratory failure: Status: Acute Code(s): J96.01 - Acute respiratory failure with hypoxia Plan #Acute on chronic hypoxic and hypercapnic respiratory failure due to COPD exacerbation and probable aspiration pneumonia Weaned off of oxygen and now on room air. Breathing treatments bronchodilators. On IV Solu-Medrol. Titrate oxygen to maintain saturation above 90%. Transfer out of ICU to [facility] today. #Type II diabetes mellitus: Hold oral meds. ISS. accuchecks ACHS #Lactic acidosis: Lactic acid was 5.1. Likely due to hypoxia. Should improve as hypoxia resolves #Schizophrenia and bipolar disorder: On Abilify and buspirone. On ativan prn #Hyperlipidemia: On statin #Depression; on trintellix. DVT prophylaxis: lovenox CODE STATUS: Full code Disposition: Anticipate DC home back tomorrow. I want to watch him overnight to make sure that he remains on room air and his shortness of breath does not recur. Allergies/Procedures Done in Hospital Allergies ibuprofen Allergy (Verified 07/31/24 11:57) Rash Penicillins Allergy (Verified 07/31/24 11:57) RASH Procedures: None Type of Care/Length of Stay Estimated LOS: Convalescent Care Less Than 30 days Type of Care Needed: Skilled Rehab Potential: Fair Prognosis: Fair Additional Orders/Day of Discharge Day of Discharge: 12/06/24 Discharge Plan Admission Admit Date/Time: 12/04/24 13:06 Primary Reason for Your Visit: acute hypoxic respiratory failure Attending Provider: Michelle Angeles Primary Care Provider: Kamar Bright Consulting Providers: Thomas Martinez; Judah Salazar; David Aguilar; Ean Quintana; Fredo Griffin; Kris Lauren; Osmany Bronson; Kasie Bhagat; Taiwo Knapp; Raz Freedman; Waldo Shepard; Makayla French; Patricia Vargas; Mirna Dahl; Tawanda Silveira; Ernie Law; Hussain Mora; Jose Mejias; Jayleen Manning; Makeda Leary; Tre Ye; Karel Tejeda; Zion Tobias Instructions Patient Instructions: ED Dyspnea Discharge Orders/Prescriptions Prescriptions: New sulfamethoxazole-trimethoprim [Bactrim DS] 800-160 mg tablet 1 tab PO BID Qty: 10 0RF Continued Trintellix 20 mg tablet 20 mg PO DAILY sennosides-docusate sodium [Colace 2-In-1] 8.6-50 mg tablet 1 tab-cap PO DAILY aripiprazole [Abilify] 15 mg tablet 15 mg PO DAILY aspirin [Adult Low Dose Aspirin] 81 mg tablet,delayed release (DR/EC) 81 mg PO DAILY lorazepam [Ativan] 1 mg tablet 1 mg PO Q8H buspirone 10 mg tablet 10 mg PO TID gabapentin 100 mg capsule 200 mg PO TID trazodone 50 mg tablet 50 mg PO QHS cholecalciferol (vitamin D3) 1,250 mcg (50,000 unit) capsule 1,250 mcg PO QWEEK Rx Instructions: QMONDAY metformin 1,000 mg tablet 1,000 mg PO BID atorvastatin 20 mg tablet 20 mg PO QHS [place] Heartburn Chew 300 mg (750 mg) tablet,chewable 600 mg PO Q6H PRN (Reason: heartburn) acetaminophen [Aminofen] 325 mg tablet 650 mg PO Q4H PRN (Reason: fever or pain) Referrals / Follow Up: Kamar Bright MD [Primary Care Provider] - Within 1 Week Disposition Disposition (needs filled in before D/C Order can be placed): Senior Living Facility
--- NOTE | 2024-12-06 13:34 | DS.PCM_ITS ---
Providers Date of Admission: 12/04/24 Date of Discharge: 12/06/24 Primary Care Physician: Dr. Kamar Bright MD Consultations 12/04/24 15:00 Consult: Railroad Fire[employer] / Pulmonary Medicine Routine Consulting Provider: Intensivists/Pulmonary Med Reason for Consult: acute hypoxic respiratory failure, aspiration pneumonia EMERGENT Consult: No MD Notified: Yes Date Notified: 12/04/24 Time Notified: 15:00 Method of Notification: Text Reason For Visit: ACUTE HYPOXIC ANAD HYPERCAPNIC RESPIRATORY FAILURE Diagnosis Discharge Diagnosis (1) Acidosis, lactic: Status: Acute Code(s): E87.20 - Acidosis, unspecified (2) Hypotension: Status: Acute Code(s): I95.9 - Hypotension, unspecified (3) Acute hypoxic respiratory failure: Status: Acute Code(s): J96.01 - Acute respiratory failure with hypoxia Plan #Acute on chronic hypoxic and hypercapnic respiratory failure due to COPD exacerbation and probable aspiration pneumonia * Weaned off of oxygen and now on room air. * Breathing treatments bronchodilators. On IV Solu-Medrol. Titrate oxygen to maintain saturation above 90%. * Transfer out of ICU to [facility] today. * #Type II diabetes mellitus: Hold oral meds. ISS. accuchecks ACHS #Lactic acidosis: Lactic acid was 5.1. Likely due to hypoxia. Should improve as hypoxia resolves #Schizophrenia and bipolar disorder: On Abilify and buspirone. On ativan prn #Hyperlipidemia: On statin #Depression; on trintellix. DVT prophylaxis: lovenox CODE STATUS: Full code Disposition: Anticipate DC home back tomorrow. I want to watch him overnight to make sure that he remains on room air and his shortness of breath does not recur. Medications at Discharge Home Medications acetaminophen 325 mg tablet (Aminofen) 650 mg PO Q4H PRN fever or pain 07/31/24 aripiprazole 15 mg tablet (Abilify) 15 mg PO DAILY SCHIZOPHRENIA 07/31/24 aspirin 81 mg tablet,delayed release (Adult Low Dose Aspirin) 81 mg PO DAILY HTN 07/31/24 atorvastatin 20 mg tablet 20 mg PO QHS HYPERLIPIDEMIA 07/31/24 buspirone 10 mg tablet 10 mg PO TID BIPOLAR 07/31/24 calcium carbonate ([place] Heartburn Chew) 600 mg PO Q6H PRN heartburn 07/31/24 cholecalciferol (vitamin D3) 1,250 mcg (50,000 unit) capsule 1,250 mcg PO QWEEK SUPPLEMENT 07/31/24 gabapentin 100 mg capsule 200 mg PO TID NEUROPATHIC PAIN 07/31/24 lorazepam 1 mg tablet (Ativan) 1 mg PO Q8H agitation 07/31/24 metformin 1,000 mg tablet 1,000 mg PO BID DM 07/31/24 sennosides 8.6 mg-docusate sodium 50 mg tablet (Colace 2-In-1) 1 tab-cap PO DAILY CONSTIPATION 07/31/24 trazodone 50 mg tablet 50 mg PO QHS BIPOLAR 07/31/24 vortioxetine 20 mg tablet (Trintellix) 20 mg PO DAILY DEPRESSION 07/31/24 sulfamethoxazole 800 mg-trimethoprim 160 mg tablet (Bactrim DS) 1 tab PO BID #10 tabs 12/06/24 Hospital Course Operations None Procedures None Summary of Care Provided Minutes Spent on Discharge: 47 Hospital Course: GUERDA GARCIA, is a 54 M with a PMH as outlined who presents from his SNF on 12[facility]24 with a complaint of nausea and vomiting. HE lives in [facility] where he resides. HE was brought in from the SNF due to fever and tachypnea as well as tachycardia. HE had nausea and vomiting today and became acutely short of breath. He denied any chest pain, and was also febrile. He was saturating at 72% on room air and slightly placed on nasal cannula and the EMS called. He was brought him in the ED. Vitals in the ED were blood pressure of 99/64, pulse rate of 101, respiratory rate of 12 and temperature 101.7 ?F. He was saturating at 91% on 10 L of oxygen. CBC showed hemoglobin of 13.2 with WBC of 11.9 and platelets of 236. INR is 1. ABG done showed pH of 7.36 with oxygen saturation of 91% and pO2 of 66 as well as pCO2 of 57.9. Chemistry showed sodium of 141 potassium of 4.3 and bicarb of 24.1. Creatinine was 1.15. Lactic acid was 5.1. ALP was 148. AST, ALT and total bilirubin were normal. Urinalysis showed no evidence of UTI. Chest x-ray showed no acute cardiopulmonary pathology. EKG showed no acute ST changes. Urinalysis showed no evidence of UTI. He was admitted to be managed for acute hypoxic and hypercapnic respiratory failure due to COPD exacerbation with probable aspiration pneumonia. He was initially admitted to the ICU. He was requiring 10 L of oxygen the patient was rapidly weaned off of the oxygen onto room air. He was transferred out of the ICU and felt much better. Respiratory panel was negative as well as respiratory culture. His urine cultures however did come back for Acinetobacter baumannii. Patient was therefore discharged back to [facility] facility on 12/06/2024 on p.o. Bactrim for 5-day course. He is to follow-up with his primary care doctor within 1 to 2 weeks. Patient was seen and examined prior to discharge. He had no active complaints and had an uneventful night. Review of systems otherwise negative. Labs and vitals reviewed. Home medication reviewed and reconciled. Physical Exam Const alert and no apparent distress General Appearance: cooperative and comfortable Orientation / Consciousness: awake Exam Limitations: no limitations HEENT normocephalic, head/scalp atraumatic and hearing grossly normal bilaterally Mouth: oral and palatal mucosa normal Eyes PERRL, EOMs intact bilaterally and conjunctivae normal Neck no lymphadenopathy, supple and no JVD Resp Resp Narrative: mildly diminished breath sounds bibasally, no wheezes or crackles. now on room air. Cardio regular rate, regular rhythm and no murmurs GI normal to inspection, nondistended, normoactive bowel sounds, soft to palpation and non-tender Extremity normal to inspection, full ROM and no clubbing, cyanosis or edema Skin no rashes or lesions noted Neuro moves all extremities Neuro Narrative: flat affect Sensorium / Orientation: awake and alert Motor Exam: general weakness Psych Psych Narrative: flat affect, moves all extremities spontaneously Mood & Affect: flat affect Weight / BMI Weight Weight: 227 lb 4.745 oz Body Mass Index (BMI) 34.4 ABG / Lab / Microbiology Data 12/06/24 06:05 12/06/24 06:05 Laboratory: Laboratory Results - last 24 hr 12/05/24 22:29: POC Glucose 116 H 12/06/24 05:38: POC Glucose 84 12/06/24 06:05: WBC 10.8, RBC 4.41 L, Hgb 11.7 L, Hct 37.8 L, MCV 85.7, MCH 26.5 L, MCHC 31.0 L, RDW Std Deviation 45.2 H, RDW Coeff of Thomas 14.5, Plt Count 222, MPV 10.0, Immature Gran % (Auto) 0.300, Neut % (Auto) 66.6, Lymph % (Auto) 23.6, Stark % (Auto) 8.0, Eos % (Auto) 1.2, Baso % (Auto) 0.3, Absolute Neuts (auto) 7.2, Absolute Lymphs (auto) 2.54, Nucleated RBC % 0, Sodium 142, Potassium 4.3, Chloride 106, Carbon Dioxide 27.0, Anion Gap 9, BUN 16, Creatinine 1.07, Estim Creat Clear Calc 91.85, Est GFR (MDRD) Non-Af 82, BUN/Creatinine Ratio 14.5, Glucose 90, Calcium 9.0 12/06/24 11:13: POC Glucose 90 Microbiology: Microbiology 12/04/24 11:17 Blood Culture (Wb) - Left Forearm Blood Culture - Preliminary No growth in 48 hours. 12/04/24 10:48 Blood Culture (Wb) - Left Hand Blood Culture - Preliminary No growth in 48 hours. 12/04/24 11:31 Urine, Clean Catch Urine Culture - Final Acinetobacter baumannii 12/04/24 11:20 Mucosa - Nose Respiratory Panel (PCR) - Final D/C Instructions Discharge Diet: Low fat / Low cholesterol Discharge Activity: Return to Normal Activity Weight Bearing Status: Weight bearing as tolerated Call your doctor if you observe: Fever of 101 or Higher, Shortness of breath, Dizziness, Swelling in the ankles and Chest pain DC O2, CPAP, BIPAP Needs Home O2 Discharge instructions: No DC home with Oxygen: No Meaningful Use Info Meaningful Use Meaningful Use Diagnoses (Choose all that apply): None applicable Ischemic Stroke Statin Dosing Therapy Reference: STATIN DOSE THERAPY REFERENCE: * Patients > 75 years receive moderate or high dose statin therapy. * Patients 75 years or YOUNGER should receive HIGH intensity statin dose unless contraindicated. You will be required to document reason for non-treatment if statin daily dose does not meet guidelines. HIGH DOSE STATIN THERAPY DAILY Atorvastatin > than or = to 40 mg Rosuvastatin > than or = to 20 mg Amlodipine + Atorvastatin > than or = to 2.5/40 mg Ezetimibe + Simvastatin 10/80 mg Simvastatin 80mg Discharge Plan Admission Admit Date/Time: 12/04/24 13:06 Primary Reason for Your Visit: acute hypoxic respiratory failure Attending Provider: Michelle Angeles Primary Care Provider: Kamar Bright Consulting Providers: Thomas Martinez; Judah Salazar; David Aguilar; Ean Quintana; Fredo Griffin; Kris Lauren; Osmany Bronson; Kasie Bhagat; Taiwo Knapp; Raz Freedman; Waldo Shepard; Makayla French; Patricia Vargas; Mirna Dahl; Jordana,Tawanda; Ani,Ernie; Morgan,Hussain; Jose Mejias; Jayleen Manning; Makeda Leary; Tre Ye; Karel Tejeda; Zion Tobias Instructions Patient Instructions: ED Dyspnea Discharge Orders/Prescriptions Prescriptions: New sulfamethoxazole-trimethoprim [Bactrim DS] 800-160 mg tablet 1 tab PO BID Qty: 10 0RF Continued Trintellix 20 mg tablet 20 mg PO DAILY sennosides-docusate sodium [Colace 2-In-1] 8.6-50 mg tablet 1 tab-cap PO DAILY aripiprazole [Abilify] 15 mg tablet 15 mg PO DAILY aspirin [Adult Low Dose Aspirin] 81 mg tablet,delayed release (DR/EC) 81 mg PO DAILY lorazepam [Ativan] 1 mg tablet 1 mg PO Q8H buspirone 10 mg tablet 10 mg PO TID gabapentin 100 mg capsule 200 mg PO TID trazodone 50 mg tablet 50 mg PO QHS cholecalciferol (vitamin D3) 1,250 mcg (50,000 unit) capsule 1,250 mcg PO QWEEK Rx Instructions: QMONDAY metformin 1,000 mg tablet 1,000 mg PO BID atorvastatin 20 mg tablet 20 mg PO QHS [place] Heartburn Chew 300 mg (750 mg) tablet,chewable 600 mg PO Q6H PRN (Reason: heartburn) acetaminophen [Aminofen] 325 mg tablet 650 mg PO Q4H PRN (Reason: fever or pain) Referrals / Follow Up: Kamar Bright MD [Primary Care Provider] - Within 1 Week Disposition Disposition (needs filled in before D/C Order can be placed): Long-Term Facility Charges/Coding Visit Charges Inpatient E&M: 93980 Disch Hosp >30min
--- NOTE | 2024-12-06 14:39 | CASEMGMT ---
Discharge Planning Discharge orders, signed med list, and transport time faxed to [facility]. Physicians will transport pt by cot at 3:30p. Nursing, SW, and pts sister/legal guardian (Ileana Nate) updated. Nina Tran DC Planning Asst.
--- NOTE | 2024-12-06 15:24 | NURSING ---
report called and given to Marie at [facility]
== END 2024-12-06 16:33 | disposition skilled nursing facility (03) | DRG 720 ==
LOC: ED 12:01 → ICU 13:18 → PCU 12-05 15:04 → MS3 12-05 20:47
PROVIDERS: Admitting Provider Student in an Organized Health Care Education/Training Program; Emergency Provider Surgery; PCP Family Medicine; Visit Provider Student in an Organized Health Care Education/Training Program
DX: A41.9 Sepsis, unspecified organism (principal); J96.22 Acute and chronic respiratory failure with hypercapnia; J69.0 Pneumonitis due to inhalation of food and vomit; J44.1 Chronic obstructive pulmonary disease with (acute) exacerbation; E11.9 Type 2 diabetes mellitus without complications; F31.9 Bipolar disorder, unspecified; I10 Essential (primary) hypertension; F20.9 Schizophrenia, unspecified; I24.89 Other forms of acute ischemic heart disease; J96.21 Acute and chronic respiratory failure with hypoxia; E87.20 Acidosis, unspecified; I95.9 Hypotension, unspecified; E78.5 Hyperlipidemia, unspecified; F17.210 Nicotine dependence, cigarettes, uncomplicated; K52.9 Noninfective gastroenteritis and colitis, unspecified; Z79.82 Long term (current) use of aspirin; Z86.16 Personal history of COVID-19; Z79.84 Long term (current) use of oral hypoglycemic drugs; Z86.73 Personal history of transient ischemic attack (TIA), and cerebral infarction without residual deficits; Z79.899 Other long term (current) drug therapy; Z79.02 Long term (current) use of antithrombotics/antiplatelets; Z88.8 Allergy status to other drugs, medicaments and biological substances; Z88.1 Allergy status to other antibiotic agents; Z75.1 Person awaiting admission to adequate facility elsewhere
CPT/HCPCS: 36415; 36600; 51702; 71045; 80048; 80053; 81001; 82803; 82962; 83605; 84484; 85025; 85610; 85730; 87040; 87077; 87086; 87088; 87186; 87506; 87633; 93005; 94640; 94762; 97161; 97166; 99285; A4216; J2405

== ENCOUNTER 2025-01-31 20:18 | Inpatient (IN) | payer MEDICAID, SELFPAY ==
[2025-01-31] VITALS (10 sets, daily range): BP systolic 110–143; BP diastolic 66–88; PULSE 84–101; RESP 15–31; TEMP 37.1–37.2; O2SAT 88–98; BMI 34.9
--- NOTE | 2025-01-31 11:46 | RAD_ITS ---
PROCEDURE: SHOULDER MIN 2 VIEWS 01/31/2025 REASON FOR EXAM: ? DISLOCATION TECHNIQUE: SHOULDER MIN 2 VIEWS COMPARISON: No FINDINGS: Widened cc ligamentous space, 1.6 cm, correlate for ligamentous disruption. The AC joint is intact with mild osteoarthritis. Mild glenohumeral osteoarthritis. No fracture or dislocation. RAD/Shoulder min 2 Views IMPRESSION: Widened cc ligamentous space consistent with ligamentous injury. Correlate as to acuity. Reading Location: [place] [id number]
--- NOTE | 2025-01-31 20:35 | EKG12_ITS ---
Test Reason : sob Blood Pressure : */* mmHG Vent. Rate : 80 BPM Atrial Rate : 80 BPM P-R Int : 156 ms QRS Dur : 78 ms QT Int : 360 ms P-R-T Axes : 54 82 37 degrees QTcB Int : 415 ms Normal sinus rhythm Normal ECG Confirmed by MAYDA MARTINS ([id number]), slot editor NGUYEN HOUSER ([id number]) on 02/05/2025 6:44:38 AM Referred By: Jose Confirmed By: MAYDA MARTINS
--- NOTE | 2025-01-31 20:37 | EX.ED.DYSGE1 ---
HPI History of Present Illness Chief Complaint: Shortness of Breath Detail of Chief Complaint: Shortness of breath, cough, wheezing Informant: patient, EMS and SNF Onset/Context/Timing Onset: Today Context: Sudden Onset Timing: Continuous Quality: Dyspnea with nonproductive cough and wheezing Location: Respiratory Current Severity: Mild Maximum Severity: Moderate Worsened by: Dyspnea on exertion Relieved by: Nothing Associated Symptoms Associated Symptoms: Hypoxia per paramedics 84% on room air. He was not off oxygen long enough Narrative Narrative: Patient is a 55-year-old male. He has history of schizoaffective disorder, CVA 2012 affecting his dominant right side. He is in nursing facility because he is unable to care for himself. He also has history of type 2 diabetes, depression, hypercholesterolemia. Patient presents because of a reported pulse ox of 84% on room air. His sat here was 88% however he was not off oxygen long enough to determine what his yarelis would be. Patient does endorse cough and mild congestion. He also endorses wheezing. He has no history of COPD or asthma. He denies fever or chills. He states he does not feel well. He denies abdominal pain, nausea, vomiting or diarrhea. He denies dysuria, frequency, urgency or hematuria. He denies skin lesions. Prior similar symptoms: No Recent Illness/Hospitalization: No PFSH PFSH Medical History Hemiplegia and hemiparesis following cerebral infarction affecting right dominant side Dysarthria following cerebral infarction COPD (chronic obstructive pulmonary disease) Nicotine dependence, cigarettes, uncomplicated Violent behavior Unspecified lack of coordination Acute bronchitis, unspecified Pneumonitis due to inhalation of food and vomit Peripheral vascular disease, unspecified Need for assistance with personal care Gastro-esophageal reflux disease without esophagitis Benign prostatic hyperplasia with lower urinary tract symptoms CVA (cerebral vascular accident) Depression Diabetes Bipolar 1 disorder HLD (hyperlipidemia) HTN (hypertension) Schizophrenia COVID-19 virus infection Home Medications ?Medication ?Instructions ?Recorded ?Last Taken ?Type acetaminophen 325 mg tablet 650 mg PO Q4H PRN fever or pain 07/31/24 Unknown History (Aminofen) aripiprazole 15 mg tablet (Abilify) 15 mg PO DAILY SCHIZOPHRENIA 07/31/24 12/03/24 History aspirin 81 mg tablet,delayed 81 mg PO DAILY HTN 07/31/24 12/03/24 History release (Adult Low Dose Aspirin) buspirone 10 mg tablet 10 mg PO TID BIPOLAR 07/31/24 12/03/24 History calcium carbonate ([place] 600 mg PO Q6H PRN heartburn 07/31/24 11/26/24 History Heartburn Chew) cholecalciferol (vitamin D3) 1,250 1,250 mcg PO QWEEK SUPPLEMENT 07/31/24 11/27/24 History mcg (50,000 unit) capsule gabapentin 100 mg capsule 200 mg PO TID NEUROPATHIC PAIN 07/31/24 12/03/24 History lorazepam 1 mg tablet (Ativan) 1 mg PO TID agitation 07/31/24 12/03/24 History metformin 1,000 mg tablet 1,000 mg PO BID DM 07/31/24 12/03/24 History sennosides 8.6 mg-docusate sodium 1 tab-cap PO DAILY CONSTIPATION 07/31/24 12/03/24 History 50 mg tablet (Colace 2-In-1) trazodone 50 mg tablet 50 mg PO QHS BIPOLAR 07/31/24 12/03/24 History vortioxetine 20 mg tablet 20 mg PO DAILY DEPRESSION 07/31/24 12/03/24 History (Trintellix) atorvastatin 10 mg tablet (Lipitor) 10 mg PO QHS 01/31/25 Unknown History lorazepam 1 mg tablet (Ativan) 1 mg PO Q8H 01/31/25 Unknown History Allergy/AdvReac Type Severity Reaction Status Date / Time ibuprofen Allergy Rash Verified 01/31/25 20:24 Penicillins Allergy RASH Verified 01/31/25 20:24 Social History (Updated 01/31/25 @ 20:[address] Keith Garcia MD) housing: alf Smoking Status: Current every day smoker tobacco type: cigarettes ROS ROS ED Constitutional Constitutional ED: Denies chills, fever(s), subjective or sweats Eyes Eyes: Denies blurry vision or change in vision ENT ENT ED: Denies ear pain, rhinorrhea or sore throat Cardiovascular Cardiovascular: Denies chest pain, orthopnea, palpitations or paroxysmal nocturnal dyspnea Respiratory/Chest Respiratory/Chest: Reports cough and dyspnea; Denies orthopnea, paroxysmal nocturnal dyspnea or sputum Gastrointestinal Gastrointestinal: Denies abdominal pain, diarrhea, nausea or vomiting Genitourinary Genitourinary ED: Denies dysuria, hematuria or urinary frequency Musculoskeletal Musculoskeletal: Denies arthralgias or myalgias Integumentary Denies rash Neurologic Neurologic: Reports weakness; Denies headache(s) or paresthesias Psychiatric Psychiatric: Denies anxiety or depression Endocrine Endocrinology: Denies cold intolerance or heat intolerance Hematologic/Lymphatic Hematologic/Lymphatic: Reports systems reviewed and no addt'l complaints, except as documented EXAM Physical Exam Const Vital Signs: 01/31/25 20:19 01/31/25 20:28 01/31/25 20:31 Temperature 99 F 99 F Temperature Source Oral Oral Pulse Rate 84 99 Respiratory Rate 28 H 30 H Respiratory Effort Respiratory Depth Respiratory Pattern Blood Pressure 110/67 118/78 Blood Pressure Mean 81 91 Pulse Ox 88 92 94 Oxygen Delivery Method Room Air Nasal Cannula Nasal Cannula Oxygen Flow Rate (L/min) 2 3 01/31/25 20:32 01/31/25 20:43 01/31/25 21:19 Temperature Temperature Source Pulse Rate 101 H 100 Respiratory Rate 21 H 31 H Respiratory Effort Short of Breath Respiratory Depth Shallow Respiratory Pattern Tachypnea Tachypnea Blood Pressure 143/66 H Blood Pressure Mean 91 Pulse Ox 92 Oxygen Delivery Method Nasal Cannula Nasal Cannula Oxygen Flow Rate (L/min) 3 6 01/31/25 21:22 01/31/25 21:27 Temperature 98.8 F Temperature Source Oral Pulse Rate 96 Respiratory Rate 30 H Respiratory Effort Respiratory Depth Respiratory Pattern Blood Pressure 117/71 Blood Pressure Mean 86 Pulse Ox 95 92 Oxygen Delivery Method Nasal Cannula Nasal Cannula Oxygen Flow Rate (L/min) 6 Positive well nourished and well developed Constitutional Narrative: Patient does not appear well. He is tachypneic. He was hypoxic. Blood pressure is on the low side but within normal limits. He is not tachycardic. He is somnolent. He does have a nasal sounding voice. Since he is on oxygen now there is no evidence of acrocyanosis or central cyanosis. General Appearance ED: well developed; Negative for cyanotic, diaphoretic, NAD or pallor HEENT Reports moist mucous membranes HEENT Narrative: Poor dentition with his teeth eroded down to the gumline. Posterior pharynx is unremarkable. Mucosas moist. Ears normal. Nares patent with some slight clear drainage. Eyes PERRL and EOMs intact bilaterally Eyes Narrative: The conjunctive is injected bilaterally. There is no obvious drainage. General Eye ED: Negative for pale conjunctiva or scleral icterus Neck no lymphadenopathy, supple and no JVD Resp normal respiratory effort and clear to auscultation bilaterally Cardio regular rate, regular rhythm, S1 normal heart sound, S2 normal heart sound and no murmurs GI normal to inspection, nondistended, normoactive bowel sounds, non-tender, non-distended and no masses; Negative for hepatosplenomegaly Palpation: soft Back/Spine no CVA tenderness Extremity normal to inspection General Extremety ED: Negative for tenderness Neuro No CN's II-XII intact bilaterally and No no sensory deficits noted Neuro Narrative: Residual deficit right side due to remote CVA. Sensorium / Orientation: Negative for alert Motor Exam: Negative for strength 5/5 throughout Psych Mood & Affect: depressed Skin no wounds and No skin turgor normal General Skin Exam: Negative for jaundice or pallor Sepsis Attestation Sepsis Alert: Yes Sepsis Attestation: Sepsis Ruled Out (Patient has no pneumonia and no endorgan dysfunction other than an elevated lactate which could be due to him taking metformin.) Date exam was performed: 01/31/25 Time exam was performed: 20:35 Possible Source of Sepsis: Other (Patient with similar presentation and had COPD exacerbation.) Sepsis Organ Dysfunction Criteria Present: Lactic Acid > 2 mmol/L Supportive Findings: Patient was not hypotensive and has no endorgan dysfunction therefore fluids were not ordered. MDM MDM MDM Narrative Medical decision making narrative: With patient being hypoxic with altered mental status and abnormal oscillatory findings need to evaluate for pneumonia will obtain chest x-ray appropriate blood work to assess for endorgan dysfunction as well as white count differential. With him being somnolent and heavyset will obtain ABG to rule out hypercapnia as the cause of his decreased level conscious versus infectious encephalopathy. Since there is no history of vomiting doubt aspiration. Since he was hypoxic is middle-age will obtain EKG to rule out any ischemic changes. History & Record Review Additional record(s) reviewed:: Prior inpatient record (Patient was admitted November of this year for lactic acidosis, hypotension unspecified and respiratory failure with hypoxia. He also had type 2 diabetes, schizoaffective disorder, hyperlipidemia it was felt that his respiratory failure was due to his COPD. That was not listed on his alf blaire) and Prior labs Lab Data Attestation: I reviewed the patient's lab results. Lab results narrative: White count is normal. H&H is normal. Differential is normal. Comprehensive metabolic panel was slightly elevated alkaline phosphatase 143. This is nonspecific. Glucose is elevated 114 with a normal CO2 anion gap. Renal function is normal. Lactate is slightly elevated 2.2. This may be due to metformin. Labs: Laboratory Results - last 24 hr 01/31/25 21:12 WBC 10.2 RBC 4.95 Hgb 13.0 Hct 42.7 MCV 86.3 MCH 26.3 L MCHC 30.4 L RDW Std Deviation 48.1 H RDW Coeff of Thomas 15.4 H Plt Count 239 MPV 10.1 Immature Gran % (Auto) 0.300 Neut % (Auto) 67.9 Lymph % (Auto) 20.8 [place] % (Auto) 8.8 Eos % (Auto) 1.8 Baso % (Auto) 0.4 Absolute Neuts (auto) 6.9 Absolute Lymphs (auto) 2.12 Nucleated RBC % 0 PT 13.9 INR 1.1 APTT 26.2 Sodium 145 Potassium 4.3 Chloride 105 Carbon Dioxide 28.3 Anion Gap 12 BUN 17 Creatinine 1.17 Estim Creat Clear Calc 83.51 Est GFR (MDRD) Non-Af 74 BUN/Creatinine Ratio 14.4 Glucose 114 H Lactic Acid 2.2 H* Calcium 9.4 Total Bilirubin 0.27 AST 10 ALT < 5 Alkaline Phosphatase 143 H Total Protein 7.1 Albumin 4.3 Globulin 2.8 Albumin/Globulin Ratio 1.5 ABG Data Attestation: I personally reviewed and interpreted this ABG as follows: Interpretation: ABG reveals a mild metabolic acidosis. pH is 7.32, bicarb 21, total CO2 22, base excess -5, O2 saturation 91% on 6 L by nasal cannula. pCO2 is 40.8 and PO2 is 65. Patient was placed on high flow oxygen per respiratory's recommendation. Since he is still wheezing 125 mg Solu-Medrol was ordered. After discussion with Dr. Fowler we will give 1 dose of Levaquin Floxin IV instead of p.o. She will see patient in the ER to determine where he should go. ABG results: ABG 01/31/25 22:18 Specimen Type ART Sample Site L Radial pH 7.32 L Bicarbonate Actual 21.0 L Total CO2 22 Base Excess -5 L O2 Saturation 91 L O2 % 6.0 ABG pCO2 40.8 ABG pO2 65 L Joel Test Positive O2 Delivery Device Cannula Vent Mode Not entered Radiography Chest X-Ray - ED: 2 View and Read by ED Physician (Independent reviewed interpreted by me at 2138. Limited study due to poor respiratory volume. There is no obvious infiltrate. There is no effusion. Cardiac silhouette size is normal. Hilum appears unremarkable. Osseous structures reveal no acute process.) Diagnostic Testing: Clinical Impression(s) from Imaging Studies Chest X-Ray 01/31/25 21:32 IMPRESSION: Mild pulmonary edema. Right lower lobe opacity not excluded. Stable mild cardiomegaly. Low riding right humerus; dislocation is not entirely excluded.. Reading Location: [facility] EKG Initial EKG: Attestation: I personally reviewed and interpreted this EKG as follows: Interpretation: Sinus Rhythm (Rate is 80. The EKG is normal. MD interval is on 56 ms. QS duration 78 ms. QT duration 260 ms. [place] is normal.) Management Discussion w/another healthcare provider: Hospitalist (Dr. Fowler was informed the patient's history, physical, objective findings. The last time he presented like this he was admitted to the ICU. She would like to see him to determine where best to place him.) Critical Care Time Critical Care Time: Yes Critical care time (excluding procedures): 30-74 minutes (32), Including time spent: (History, physical, documentation, review of prior records, review of records from SNF), Discussing w/Patient &/or Family/Pleater Hand, Discussing w/Consultants (Discussion with hospitalist for admission), Arranging Admission or Transfer and - (Discussion with respiratory therapist.) Discharge Plan Triage Chief Complaint: Shortness of Breath ED Provider: Keith Garcia Dx/Rx/DC Orders Clinical Impression: Acute hypoxemic respiratory failure, Type 2 diabetes mellitus, Acute exacerbation of chronic obstructive pulmonary disease, Acute bronchospasm, Acidosis, lactic, Hemiplegia affecting dominant side, post-stroke Prescriptions: No Action atorvastatin [Lipitor] 10 mg tablet 10 mg PO QHS lorazepam [Ativan] 1 mg tablet 1 mg PO Q8H Trintellix 20 mg tablet 20 mg PO DAILY sennosides-docusate sodium [Colace 2-In-1] 8.6-50 mg tablet 1 tab-cap PO DAILY aripiprazole [Abilify] 15 mg tablet 15 mg PO DAILY aspirin [Adult Low Dose Aspirin] 81 mg tablet,delayed release (DR/EC) 81 mg PO DAILY lorazepam [Ativan] 1 mg tablet 1 mg PO TID buspirone 10 mg tablet 10 mg PO TID gabapentin 100 mg capsule 200 mg PO TID trazodone 50 mg tablet 50 mg PO QHS cholecalciferol (vitamin D3) 1,250 mcg (50,000 unit) capsule 1,250 mcg PO QWEEK Rx Instructions: QMONDAY metformin 1,000 mg tablet 1,000 mg PO BID [place] Heartburn Chew 300 mg (750 mg) tablet,chewable 600 mg PO Q6H PRN (Reason: heartburn) acetaminophen [Aminofen] 325 mg tablet 650 mg PO Q4H PRN (Reason: fever or pain) Primary Care Provider: Kamar Bright Referrals: Kamar Bright MD [Primary Care Provider] - Print Language: Moldovan Disposition Disposition: Acute Care Hospital [facility]
[2025-01-31] MEDS: Albuterol 2.5 MG/3 ML VIAL.NEB. INHALATION ×2 (20:42→20:43)
--- OUTSIDE RECORDS SUMMARY | 2025-01-31 21:05 | XMS RPT_ITS | CCD ---
Author Organization [facility] Care Team Providers Care Obgyn Nurse Name Role Phone Unavailable Unavailable Unavailable BENNY CORCORAN Unavailable Unavailabl e NO, PHYSICIAN Unavailable Unavailable No, Physician Unavailable Unavailable No, Physician Primary Care Provider Unavailabl e NWTHAYLEY Attending Unavailable NWT, HAYLEY Admitting Unavailable NWT, GURINDERD Attending Unavailable NWT, MILLERD Admitting Unavailable NWT, MILLERD Attending Unavailable NWT, MILLERD Admitting Unavailable NWT, NISHA Attending Unavailable NWT, NISHA Admitting Unavailable NWT, MILLERD Admitting Unavailable NWT, MILLERD Attending Unavailable NWT, HAYLEY Attending Unavailable NWT, HAYLEY Admitting Unavailable No, Physician Primary Care Provider Unavailabl LUZ Brewer Attending Unavailable PHYSICIAN PHYSICIAN, PCP PCP UNKNOWN Primary Car e Unavailable Provider MD, Unlisted Primary Care Provider Unav ailable PROVIDER, UNLISTED Primary Care Unavailable VIJAY KRISHNAMURTHY Attending Unavailable VIJAY KRISHNAMURTHY Admitting Unavailable JOSE DOMINGUEZ Attending Unavailable NO, PHYSICIAN Primary Care Unavailable MARY JAMES Admitting Unavailable PHYSICIANS, [facility] Consulting Unav ailable TATUM MONET Consulting Unavail able DYLAN ROBLES Consulting Unavailable [place] [facility]INATOR, GENERIC Consultin g Unavailable NO, PHYSICIAN Primary Care Unavailable DAVID JI Attending Unavailable LUZ CORRALES Primary Care Unavailable ALAINA BAEZ Attending Unavailable LUZ CORRALES Primary Care Unavailable JAYNE RUSSO Admitting Unavailable RUPAL WILSON Attending Unavailable WARD MOOK, YAQUELIN Consulting Unavailable ED ELKINS YAQUELIN Consulting Unavailable ED ELKINS, YAQUELIN Consulting Unavailable Lashonda CANO, Luz Primary Care Provider [phone] Kaila CANO, Dr. Galvin Primary Care Provider RegiMichael NICOLE, Dr. Gamez Emergency Provider Bridgette CANO, Dr. Michelle Rios Admit Provider Bridgette CANO, Dr. Michelle Rios Attending Provider Michelle CANO, Dr. Guzman Other Provider Marie CANO, Dr. So Other Provider Jeff CANO, Dr. Hernandez Other Provider Dr. Ean Quintana DO Other Provider Gaby CANO, Dr. Fredo Villeda Other Provider Xin CANO, Dr. Ponce Other Provider Audie CANO, Dr. Ceron Other Provider Leola CANO, Dr. Ferro Other Provider [phone] Aria CANO, Dr. Maravilla Other Provider Tano CANO, Dr. Crandall Other Provider Dr. Waldo Shepard MD Other Provider Dr. Makayla French MD Other Provider [phone] Patricia Vargas MD Other Provider Unavailabl lisha Dahl MD, Dr. Bradley Other Provider Jordana CANO, Dr. Neff Other Provider Dr. Ernie Law MD Other Provider Morgan CANO, Dr. Nixon Other Provider [phone] Jose Mejias DO Other Provider Kerri CANO, Dr. Clemens Other Provider [phone] Gibran CANO, Dr. Ashford Other Provider [phone] Ephraim NICOLE, Dr. Toledo Other Provider Nikhil CANO, Dr. Vinson Other Provider [phone] Jatinder CANO, Dr. Donovan Other Provider [phone] Bridgette CANO, Dr. Michelle Rios Other Provider Mariano NICOLE, Dr. Mckoy Attending Provider Thomas Martinez Consulting Unavailable Koram, Michelle Blanca Admitting Unavailable Koram, Michelle Blanca Attending Unavailable Mame Bright Primary Care Unavailable Salazar, Judah Consulting Unavailable David Aguilar Consulting Unavailable Ean Quintana Consulting Unavailable Fredo Griffin Consulting Unavailable Kris Lauren Consulting Unavailable Audie, Osmany Consulting Unavailable Habtegebriel, Kasie Consulting Unavailab le Dand, Taiwo Consulting Unavailable Freedman, Raz Consulting Unavailable Waldo Shepard Consulting Unavailable Gillian, Makayla Consulting Unavailable Aljundi, Lamia Consulting Unavailable Dahl, Mirna Consulting Unavailable Jordana, Tawnada Consulting Unavailable Irukulla, Ernie Consulting Unavailable Morgan, Hussain Consulting Unavailable John Mejiasdeep Consulting Unavailable Jayleen Manning Consulting Unavailable Makeda Leary Consulting Unavailable Tre Ye Consulting Unavailable Karel Tejeda Consulting Unavailable Zion Tobias Consulting Unavailable Maricruz Villareal Consulting Unavailable Maricruz Villareal Admitting Unavailable Mame Bright Primary Care Unavailable Koram, Michelle Blanca Attending Unavailable Maricruz Villareal Referring Unavailable Thomas Martinez Consulting Unavailable Mame Bright Primary Care Unavailable Koram, Michelle Blanca Admitting Unavailable Koram, Michelle Blanca Attending Unavailable Salazar, Judah Consulting Unavailable David Aguilar Consulting Unavailable Ean Quintana Consulting Unavailable Fredo Griffin Consulting Unavailable Kris Lauren Consulting Unavailable Audie, Osmany Consulting Unavailable Habtegebriel, Kasie Consulting Unavailab le Dand, Taiwo Consulting Unavailable Freedman, Raz Consulting Unavailable Waldo Shepard Consulting Unavailable Gillian, Makayla Consulting Unavailable Aljundi, Lamia Consulting Unavailable Dahl, Mirna Consulting Unavailable Jordana, Tawanda Consulting Unavailable Irukulla, Ernie Consulting Unavailable Morgan, Hussain Consulting Unavailable Dhedaisha, Jose Consulting Unavailable Kerri, Jayleen Consulting Unavailable Gibran, Makeda Consulting Unavailable Tre Ye Consulting Unavailable Karel Tejeda Consulting Unavailable Zion Tobias Consulting Unavailable Koram, Michelle Blanca Consulting Unavailable Maricruz Villareal Referring Unavailable Maricruz Villareal Attending Unavailable Maricruz Villareal Consulting Unavailable Maricruz Villareal Admitting Unavailable Mame Bright Primary Care Unavailable Maruam, Michelle Blanca Attending Unavailable Koram, Michelle Blanca Consulting Unavailable Ean Quintana Attending Unavailable Koram, Michelle Blanca Referring Unavailable Allergies Allergy Classification Reported Allergen(s) Allergy Type Date of Onset Reaction(s) Facility NSAIDs (1 source) Ibuprofen Drug Allergy 5 Unknown, Other (See Comments) [facility] Penicillins (antibiotic) (1 source) Penicillins Drug Allergy 9 [facility] (12 sources) ibuprofen; Translations: [IBUPROFEN] Propensity to adverse reactions to drug 5 Unknown, Other (See Comments), Other [facility] Work Phone: (9 sources) Penicillins; Translations: [PENICILLINS] Propensity to adverse reactions to drug 9 Other (See Comments), Other [facility] (1 source) Ibuprofen Drug Allergy 5 [facility] Repository Medications Current Medications Medication Drug Class(es) Dates Sig (Normalized) Sig (Original) acetaminophen 325 mg oral tablet (15 sources) Start: 07-31-2024 Acetaminophen (Aminofen) 325 mg tablet Active 650 mg PO Q4H as needed for fever or pain July 31, 2024 1:00am Start: 06-09-2022 End: 07-08-2022 take 650 mg by mouth every four hours as needed for pain 650 mg, oral, Every 4 hours PRN, mild pain, Starting on Wed06/09/22 at 1132 Start: 05-15-2022 take 650 mg by mouth every four hours as needed for pain 650 mg, Oral, EVERY 4 HOURS PRN, Mild Pain, Fever, Starting on Wed05/15/22 at 0122, Until Discontinued Start: 12-12-2020 End: 12-12-2020 take 1 tablet by mouth every four hours as needed for pain acetaminophen (TYLENOL) tablet 650 mg Start: 06-20-2020 End: 06-20-2020 take 1 tablet by mouth every four hours as needed acetaminophen (TYLENOL) tablet 650 mg Start: 04-04-2020 End: 04-04-2020 take 1 tablet by mouth every four hours as needed acetaminophen (TYLENOL) tablet 650 mg take 2 tablets by mo uth every four hours for pain acetaminophen (TYLENOL) 325 mg tablet Take 2 tablets (650 mg total) by mouth every 4 (four) hours if needed for mild pain. 0 Active take 2 capsules by m outh every four hours as needed Acetaminophen (TYLENOL) 325 MG CAPS Take 650 mg by mouth every 4 hours as needed. 0 Active take 2 tablets by mo uth every six hours as needed acetaminophen (TYLENOL) 325 MG tablet Take 650 mg by mouth every 6 (six) hours as needed for pain. 0 Active ALPRAZolam 0.5 mg oral tablet (6 sources) Benzodiazepine take 1 tablet by mouth every eight hours as needed ALPRAZolam (XANAX) 0.5 MG tablet Take 0.5 mg by mouth every 8 (eight) hours as needed for anxiety. 0 Active ARIPiprazole 15 mg oral tablet (2 sources) Atypical Antipsychotic Start: 07-31-19 take 1 tablet by mouth once daily Aripiprazole (Abilify) 15 mg tablet Active 15 mg PO DAILY July 31, 2024 1:00am aspirin 81 mg delayed release oral tablet (2 sources) Platelet Aggregation Inhibitor, Nonsteroidal Anti-inflammatory Drug Start: 07-31-19 Aspirin (Adult Low Dose Aspirin) 81 mg tablet,delayed release (DR/EC) Active 81 mg PO DAILY July 31, 2024 1:00am atorvastatin 20 mg oral tablet (9 sources) HMG-CoA Reductase Inhibitor Start: 07-31-19 take 1 tablet by mouth at bedtime Atorvastatin 20 mg tablet Active 20 mg PO AT BEDTIME July 31, 2024 1:00am Start: 05-15-2022 End: 07-08-2022 take 20 mg by mouth once daily 20 mg, oral, Nightly, F irst dose on Wed06/09/22 at 2100 Start: 12-12-2020 End: 12-12-2020 take 20 mg by mouth once daily 20 mg, Oral, Nightly, F irst dose on Wed12/12/20 at 2100 benzocaine/menth/cetylpyrd C l (CEPACOL SORE THROAT MM) (1 source) benzocaine/menth /cetylpyrd Cl (CEPACOL SORE THROAT MM) 1 lozenge by Mucous Membrane route every 2 (two) hours as needed . 0 Active benzonatate 200 mg oral capsule (6 sources) Non-narcotic Antitussive take 1 capsule by mouth every eight hours as needed benzonatate (TESSALON) 200 MG capsule Take 200 mg by mouth every 8 (eight) hours as needed for cough . 0 Active take 1 capsule by mo uth three times daily as needed for cough benzonatate (TESSALON) 200 MG capsule Ta ke 200 mg by mouth 3 (three) times a day as needed for cough. 0 Active benztropine mesylate 1 mg oral tablet (2 sources) Anticholinergic, Antihistamine Start: 07-01-2022 End: 08-06-2022 take 1 tablet by mouth twice daily benztropine (COGENTIN) 1 mg tablet Take 1 tablet (1 mg total) by mouth 2 (two) times a day if needed (extrapyramidal symptoms). 0 07/07/2022 08/06/2022 Active bisacodyl 10 mg rectal suppository (1 source) Stimulant Laxative take 10 mg rectal route once daily as needed for constipation bisacodyL (DULCOLAX) 10 mg suppository Insert 10 mg into the rectum daily as needed for constipation . 0 Active busPIRone hydrochloride 10 mg oral tablet (2 sources) Start: 07-31-2024 take 1 tablet by mouth three times daily Buspirone 10 mg tablet Active 10 mg PO THREE TIMES A DAY July 31, 2024 1:00am calcium carbonate 600 mg oral capsule (6 sources) Start: 07-31-2024 Calcium Carbonate ([employer] Heartburn Chew) 300 mg (750 mg) tablet,chewable Active 600 mg PO EVERY 6 HOURS as needed for heartburn July 31, 2024 1:00am Start: 06-29-2022 End: 07-08-2022 calcium carbonate (TUMS) chewable tablet 500 mg Start: 05-15-2022 take 750 mg by mouth every six hours as needed for gastroesophageal reflux disease 750 mg, Oral, EVERY 6 HOURS PRN, Heartburn, Starting on Wed05/15/22 at 0123, Until Discontinued calcium carbonat e EX (TUMS EX) 300 mg (750 mg) chewable tablet Chew 2 tablets (600 mg total) every 6 (six) hours if needed for indigestion or heartburn. 0 Active calcium carbonat e (TUMS) 500 MG chewable tablet Take 750 mg by mouth every 6 hours as needed for Heartburn. 0 Active cholecalciferol 1.25 mg oral capsule (5 sources) Vitamin D Start: 07-31-2024 take 1 capsule by mouth every week Cholecalciferol (Vitamin D3) 1,250 mcg (50,000 unit) capsule Active 1250 ug PO EVERY WEEK July 31, 2024 1:00am QMONDAY Start: 07-08-2022 End: 07-08-2023 take 1 capsule by mouth every week cholecalciferol (VITAMIN D-3) 1,250 mcg (50,000 unit) capsule Take 1 capsule (50,000 Units total) by mouth 1 (one) time per week. 4 each 07/08/2022 07/08/2023 Active Start: 06-17-2022 End: 07-08-2022 cholecalciferol (VITAMIN D-3 ) capsule 50,000 Units End: 05-15-2022 Cholecalciferol (VITAMIN D-3 ) 400 UNITS TABS Take by mouth. 0 05/15/2022 Discontinued (Error) citalopram 20 mg oral tablet (6 sources) Serotonin Reuptake Inhibitor Start: 12-13-2020 End: 12-12-2020 citalopram (CELEXA) tablet 20 mg Start: 12-12-2020 End: 12-12-2020 take 10 mg by mouth once daily 10 mg, Oral, Daily, Fir st dose on Raysa 12/12/20 at 0900 Start: 10-17-2014 End: 05-15-2022 take 1 tablet by mouth once daily citalopram (CELEXA) 20 MG tablet Take 1 tablet by mouth daily. 0 10/17/2014 05/15/2022 Discontinued (Error) take 1 tablet by nicole th once daily citalopram (CELEXA) 10 MG tablet Take 10 mg by mouth daily . 0 Active docusate sodium 50 mg / sennosides, fpc 8.6 mg oral tablet (10 sources) Start: 02-03-2025 Sennosides-Doc usate Sodium (Colace 2-In-1) 8.6-50 mg tablet Active 1 NMA PO DAILY July 31, 2024 1:00am Start: 05-15-2022 End: 07-08-2022 take 1 tablet by mouth once daily 1 tablet, oral, Daily, First dose on Wed06/09/22 at 1900 Start: 12-12-2020 End: 12-12-2020 take 1 tablet by mouth twice daily 1 tablet, Oral, 2 times daily, First dose on Wed12/12/20 at 0900 Hold for loose stools Do Not Crush or Chew if administering orally due to bitter taste. May be crushed if given via tube. take 1 tablet by nicole th twice daily senna-docusate (sennosides-docusate sodium) 8.6-50 mg Take 1 tablet by mouth 2 (two) times a day . 0 Active ergocalciferol 1.25 mg oral capsule (3 sources) Provitamin D2 Compound ergocalciferol (Vitamin D2) 1,250 mcg (50,000 unit) capsule Take 50,000 Units by mouth once a week On Wednesday . 0 Active gabapentin 100 mg oral capsule (15 sources) Anti-epileptic Agent Start: 07-31-19 25 take 2 capsules by mouth three times daily Gabapentin 100 mg capsule Active 200 mg PO THREE TIMES A DAY July 31, 2024 1:00am Start: 06-23-2022 End: 07-07-2023 take 1 capsule by mouth three times daily gabapentin (NEURONTIN) 300 mg capsule Take 1 capsule (300 mg total) by mouth 3 (three) times a day. 90 each 07/07/2022 07/07/2023 Active Start: 06-09-2022 End: 06-23-2022 take 200 mg by mouth three times daily 200 mg, oral, 3 times daily, First dose on Wed06/09/22 at 1400 Start: 05-15-2022 take 200 mg by mouth three times daily 200 mg, Oral, 3 TIMES DAILY, First dose on Wed05/15/22 at 0900, Until Discontinued Start: 12-12-2020 End: 12-12-2020 take 100 mg by mouth twice daily 100 mg, Oral, 2 times daily, First dose on Wed12/12/20 at 0900 End: 07-08-2022 gabapentin (NEURONTIN) 200 m g tablet Take 1 split tablet (200 mg total) by mouth 3 (three) times a day. 0 07/08/2022 Discontinued (Stop Taking at Discharge) take 2 capsules by m outh three times daily gabapentin (NEURONTIN) 100 MG capsule Take 200 mg by mouth 3 times daily. 0 Active guaiFENesin 20 mg/ml oral solution (1 source) take 400 mg by mouth every six hours as needed guaiFENesin (ROBITUSSIN) 100 mg/5 mL syrup Take 400 mg by mouth every 6 (six) hours as needed for cough . 0 Active haloperidol 5 mg oral tablet (16 sources) Typical Antipsychotic Start: take 1 tablet by mouth every eight hours haloperidoL (HALDOL) 5 mg tablet Take 1 tablet (5 mg total) by mouth every 8 (eight) hours if needed for agitation. 0 07/07/2022 Active Start: 07-01-2022 End: 08-06-2022 take 1 tablet by mouth three times daily haloperidoL (HALDOL) 5 mg tablet Take 1 tablet (5 mg total) by mouth 3 (three) times a day. 90 each 0 07/07/2022 08/06/2022 Active Start: 06-13-2022 End: 06-13-2022 haloperidol lactate (HALDOL) injection 2 mg Start: 06-11-2022 End: 07-01-2022 take 1 tablet by mouth every twelve hours haloperidoL (HALDOL) tablet 5 mg Start: 06-11-2022 End: 06-11-2022 take 5 tablets by mouth twice daily haloperidoL (HALDOL) 0.5 mg tablet Take 5 tablets (2.5 mg total) by mouth 2 (two) times a day. 300 each 0 06/11/2022 06/11/2022 Discontinued (Stop Taking at Discharge) Start: 06-10-2022 End: 06-13-2022 haloperidoL (HALDOL) tablet 2.5 mg Start: 06-07-2022 End: 07-08-2022 take 1 tablet by mouth every six hours as needed 5 mg, oral, Every 6 hours PRN, agitation, Starting on Wed06/09/22 at 1132 Start: 12-12-2020 End: 12-12-2020 haloperidoL (HALDOL) tablet 5 mg Start: 06-20-2020 End: 06-20-2020 take 1 tablet by mouth every four hours as needed haloperidoL (HALDOL) tablet 5 mg Start: 04-04-2020 End: 04-04-2020 take 1 tablet by mouth every four hours as needed haloperidoL (HALDOL) tablet 5 mg haloperidol deca noate (HALDOL DECANOATE) 50 mg/mL injection Inject 50 mg into the shoulder, thigh, or buttocks every 30 (thirty) days . 0 Active hydrocortisone acetate 25 mg rectal suppository (3 sources) Corticosteroid take 25 mg rectal route twice daily as needed for constipation hydrocortisone (ANUSOL-HC) 25 mg suppository Insert 25 mg into the rectum 2 (two) times a day as needed (constipation) . 0 Active lithium carbonate 300 mg oral capsule (15 sources) Start: 06-10-20 End: 09-10-19 take 1 capsule by mouth twice daily at mealtime lithium 300 mg capsule Take 1 capsule (300 mg total) by mouth 2 (two) times a day with meals. 60 each 2 06/11/2022 09/09/2022 Active Start: 05-18-2022 take 3 capsules by m outh twice daily lithium 150 MG capsule Take 3 capsules by mouth two times per day. 90 capsule 1 05/18/2022 Active Start: 05-15-2022 End: 05-15-2022 lithium capsule 150 mg Start: 05-15-2022 End: 05-18-2022 take 300 mg by mouth twice daily 300 mg, Oral, BID, Fi rst dose on Wed05/15/22 at 0900, Until Discontinued Start: 12-12-2020 End: 12-12-2020 lithium capsule 300 mg Start: 12-12-2020 End: 12-12-2020 take 450 mg by mouth twice daily 450 mg, Oral, 2 times daily, First dose on Wed12/12/20 at 0900 End: 07-08-2022 take 3 capsules by mouth twice daily at mealtime lithium 150 mg capsule Take 3 capsules (450 mg total) by mouth 2 (two) times a day with meals. 0 07/08/2022 Discontinued (Stop Taking at Discharge) loperamide hydrochloride 2 mg oral capsule (6 sources) Opioid Agonist take 1 capsule by mouth four times daily as needed for diarrhea loperamide (IMODIUM) 2 mg capsule Take 2 mg by mouth 4 (four) times a day as needed for diarrhea. 0 Active LORazepam 1 mg oral tablet (3 sources) Benzodiazepine Start: 07-31-2024 take 1 tablet by mouth every eight hours Lorazepam (Ativan) 1 mg tablet Active 1 mg PO Q8H July 31, 2024 1:00am Start: 04-04-2020 End: 04-04-2020 take 1 tablet by mouth every six hours as needed LORazepam (ATIVAN) tablet 1 mg metFORMIN hydrochloride 1000 mg oral tablet (9 sources) Biguanide Start: 07-31-2024 take 1 tablet by mouth twice daily Metformin 1,000 mg tablet Active 1000 mg PO TWICE A DAY July 31, 2024 1:00am End: 05-15-2022 take 1 tablet by mouth twice daily at mealtime metformin (GLUCOPHAGE) 500 MG tablet Take 500 mg by mouth 2 times daily (with meals). 0 05/15/2022 Discontinued (Error) take 2 tablets by mo uth twice daily at mealtime metFORMIN (GLUCOPHAGE) 500 MG tablet Indications: type 2 diabetes mellitus Take 500 mg by mouth 2 (two) times a day with meals Reasons: type 2 diabetes mellitus. 0 Active naltrexone hydrochloride 50 mg oral tablet (2 sources) Opioid Antagonist Start: 06-16-2022 End: 07-08-2023 take 1 tablet by mouth once daily naltrexone (DEPADE) 50 mg tablet Take 1 tablet (50 mg total) by mouth 1 (one) time each day. 30 each 07/08/2022 07/08/2023 Active 24 hr nicotine 0.583 mg/hr transdermal system (6 sources) Cholinergic Nicotinic Agonist Start: 07-07-2022 End: 08-06-2022 apply 1 dose transdermal route once daily nicotine (NICODERM CQ) 14 mg/[address] 1 patch on the skin 1 (one) time each day. 30 each 0 07/07/2022 08/06/2022 Active Start: 06-23-2022 End: 07-08-2022 nicotine (NICODERM CQ) 14 mg /24 hr patch 1 patch Start: 06-22-2022 End: 08-06-2022 take 1 dose by mouth every eight hours nicotine polacrilex (NICORETTE) [address] 1 each (2 mg total) into mouth between cheek and gum every 8 (eight) hours if needed for smoking cessation. 100 each 0 07/07/2022 08/06/2022 Active Start: 06-20-2020 End: 06-20-2020 nicotine (NICOTROL) 10 mg in haler 1 Cartridge Start: 06-20-2020 End: 06-20-2020 nicotine (NICODERM CQ) 21 mg /24 hr 1 patch ondansetron 4 mg disintegrating oral tablet (5 sources) Serotonin-3 Receptor Antagonist Start: 07-03-2018 take 1 tablet by mouth every four hours as needed ondansetron (ZOFRAN ODT) 4 MG disintegrating tablet Dissolve 1 (one) tablet (4 mg total) on top of tongue every 4 (four) hours as needed for nausea . 10 tablet 0 07/03/2018 Active QUEtiapine 50 mg oral tablet (3 sources) Atypical Antipsychotic take 1 tablet by mouth once daily QUEtiapine (SEROQUEL) 50 MG tablet Take 50 mg by mouth nightly . 0 Active simvastatin 20 mg oral tablet (7 sources) HMG-CoA Reductase Inhibitor take 1 tablet by mouth once daily simvastatin (ZOCOR) 20 MG tablet Take 20 mg by mouth nightly. 0 Active sulfamethoxazole 800 mg / trimethoprim 160 mg oral tablet (1 source) Dihydrofolate Reductase Inhibitor Antibacterial, Sulfonamide Antimicrobial Start: 12-06-2024 Sulfamethoxazole-Tr imethoprim (Bactrim Ds) 800-160 mg tablet Active 1 {tbl} PO TWICE A DAY December 06, 2024 12:00am traZODone hydrochloride 50 mg oral tablet (12 sources) Serotonin Reuptake Inhibitor Start: 07-31-2024 take 1 tablet by mouth at bedtime Trazodone 50 mg tablet Active 50 mg PO AT BEDTIME July 31, 2024 1:00am Start: 07-07-2022 End: 08-06-2022 take 0.5 tablet by mouth three times daily traZODone (DESYREL) 50 mg tablet Take 0.5 tablets (25 mg total) by mouth 3 (three) times a day. 45 each 0 07/07/2022 08/06/2022 Active Start: 06-09-2022 End: 07-08-2022 traZODone (DESYREL) tablet 2 5 mg Start: 05-15-2022 take 25 mg by mouth twice fr[place] y 25 mg, Oral, BID, First dose on Wed05/15/22 at 0900, Until Discontinued Caution: This medication looks and/or sounds like another medication. Start: 12-12-2020 End: 12-12-2020 take 50 mg by mouth three times daily 50 mg, Oral, 3 times daily, First dose on Wed12/12/20 at 1500 Start: 06-20-2020 End: 06-20-2020 traZODone (DESYREL) tablet 5 0 mg Start: 04-04-2020 End: 04-04-2020 traZODone (DESYREL) tablet 5 0 mg End: 07-08-2022 traZODone (DESYREL) 50 mg ta blet Take 25 mg by mouth 2 (two) times a day. 0 07/08/2022 Discontinued (Stop Taking at Discharge) vortioxetine 20 mg oral tablet (2 sources) Start: 07-31-2024 take 1 tablet by mouth once daily Vortioxetine (Trintellix) 20 mg tablet Active 20 mg PO DAILY July 31, 2024 1:00am Completed/Discontinued Medications Medication Drug Class(es) Dates Sig (Normalized) Sig (Original) acetaminophen 325 mg / oxyCODONE hydrochloride 5 mg oral tablet (6 sources) Opioid Agonist Start: 07-03-2018 End: 07-03-2018 oxyCODONE-acetamin ophen (PERCOCET) 5-325 mg per tablet 1 tablet Start: 07-03-2018 take 1 tablet by nicole every six hours as needed for pain oxyCODONE-acetaminophen (PERCOCET) 5-325 mg per tablet Indications: Kidney stone on left side Take 1 (one) tablet by mouth every 6 (six) hours as needed for pain . 12 tablet 0 07/03/2018 Active [id number] 200 actuat albuterol 0.09 mg/actuat metered dose inhaler (10 sources) beta2-Adrenergic Agonist Start: 12-12-2020 End: 12-12-2020 take 2 puff(s) by inhalation every four hours as needed for wheezing 2 puff, Inhalation, Every 4 hours PRN, wheezing, shortness of breath, Starting on Wed12/12/20 at 0333 SPACER REQUIRED FOR ADMINISTRATION take 2.5 mg by inhal ation every six hours as needed albuterol (PROVENTIL) 2.5 mg /3 mL (0.08 3 %) nebulizer solution Take 2.5 mg by nebulization every 6 (six) hours as needed for shortness of breath . 0 Active take 2 puff(s) by in halation every four hours as needed for wheezing albuterol 90 mcg/actuation inhaler Inhal e 2 puffs every 4 (four) hours as needed for wheezing or shortness of breath. 0 Active albuterol 90 mcg /actuation inhaler Inhale 2 puffs every 4 (four) hours as needed for wheezing or shortness of breath. Active albuterol 90 mcg /actuation inhaler Inhale 2 puffs every 4 (four) hours as needed for wheezing or shortness of breath. Active albuterol 0.833 mg/ml / ipratropium bromide 0.167 mg/ml inhalation solution (7 sources) Anticholinergic, beta2-Adrenergic Agonist Start: 06-09-2022 End: 07-08-2022 take 3 mL by inhalation every six hours as needed ipratropium-albuteroL (DUONEB) 0.5-2.5 mg/3 mL nebulizer solution 3 mL take 3 mL by inhalat ion every six hours as needed ipratropium-albuterol (DUO-NEB) 0.5-2.5 mg/3 ml nebulizer Take 3 mL by nebulization every 6 (six) hours as needed for wheezing or shortness of breath. 0 Active aluminum hydroxide 40 mg/ml / magnesium hydroxide 40 mg/ml / simethicone 4 mg/ml oral suspension (6 sources) Start: 12-12-2020 End: 12-12-2020 take 30 mL by mouth every four hours as needed aluminum-magnesium hydroxide-simethicone (MAALOX PLUS) 200-200-20 mg/5 mL suspension 30 mL Start: 06-20-2020 End: 06-20-2020 take 30 mL by mouth every four hours as needed aluminum-magnesium hydroxide-simethicone (MAALOX PLUS) 200-200-20 mg/5 mL suspension 30 mL Start: 04-04-2020 End: 04-04-2020 take 30 mL by mouth every four hours as needed aluminum-magnesium hydroxide-simethicone (MAALOX PLUS) 200-200-20 mg/5 mL suspension 30 mL take 30 mL by mouth every six hours as needed Advanced Antacid-Antigas 200-200-20 mg/5 mL Susp Indications: flatulence Take 30 mL by mouth every 6 (six) hours as needed Reasons: gas. 0 Active carBAMazepine 200 mg oral tablet (5 sources) Mood Stabilizer Start: 12-12-2020 End: 05-15-2022 take 200 mg by mouth twice daily at mealtime 200 mg, Oral, 2 times daily with meals, First dose on Wed12/12/20 at 0800 CATEGORY C HAZARDOUS DRUG use safe handling precautions. Use reference link to view PPE guidelines. Minimiz e crushing/splitting only to situations where clinically necessary. ceramides lotion (CeraVe) lotion lotion (1 source) End: 07-08-2022 ceramides lotion (CeraVe) lotion lotion Apply 1 application topically 2 (two) times a day. 0 07/08/2022 Discontinued (Stop Taking at Discharge) clopidogrel 75 mg oral tablet (11 sources) [id number] Platelet Inhibitor Start: 06-09-2022 End: 07-08-2022 take 75 mg by mouth once daily 75 mg, oral, Daily, First dose on Wed06/09/22 at 1133 Start: 05-15-2022 take 75 mg by mouth once daily 75 mg, Oral, DAILY, First dose on Wed05/15/22 at 0900, Until Discontinued Start: 12-12-2020 End: 12-12-2020 take 75 mg by mouth once daily 75 mg, Oral, Daily, Fir st dose on Wed12/12/20 at 0900 dexamethasone 6 mg oral tablet (2 sources) Corticosteroid Start: 08-01-2024 End: 12-04-2024 take 1 tablet by mouth once daily Dexamethasone 6 mg tablet Discontinued 6 mg PO DAILY August 01, 2024 1:00am December 04, 2024 10:43am diphenhydrAMINE (2 sources) Histamine-1 Receptor Antagonist Start: 06-20-2020 End: 06-20-2020 inject 50 mg by intramuscular injection every twenty-four hours as needed diphenhydrAMINE (BENADRYL) injection 50 mg Start: 04-04-2020 End: 04-04-2020 inject 50 mg by intramuscular injection every twenty-four hours as needed diphenhydrAMINE (BENADRYL) injection 50 mg 0.4 ml enoxaparin sodium 100 mg/ml prefilled syringe (1 source) Low Molecular Weight Heparin Start: 06-09-2022 End: 07-08-2022 inject 40 mg by subcutaneous injection every twenty-four hours 40 mg, subcutaneous, Every 24 hours scheduled, First dose on Wed06/09/22 at 1900 Indication: VTE/PE Prophylaxis folic acid 1 mg oral tablet (1 source) End: 05-15-2022 take 1 tablet by mouth once daily folic acid (FOLVITE) 1 MG tablet Take 1 mg by mouth daily. 0 05/15/2022 Discontinued (Error) glucagon (rdna) 1 mg injection (1 source) Antihypoglycemic Agent Start: 06-09-2022 End: 07-08-2022 glucagon injection 1 mg 500 ml glucose 500 mg/ml injection (4 sources) Start: 06-09-2022 End: 07-08-2022 dextrose 15 gram/59 mL oral solution 30 g Start: 06-09-2022 End: 07-08-2022 dextrose 15 gram/59 mL oral solution 15 g Start: 06-09-2022 End: 07-08-2022 dextrose (D50W) 50% injectio n 25 g haloperidol lactate (HALDOL) injection 5 mg (1 source) Start: 06-10-2022 End: 07-08-2022 inject 5 mg by intramuscular injection every six hours as needed haloperidol lactate (HALDOL) injection 5 mg hydrOXYzine hydrochloride 25 mg oral tablet (2 sources) Antihistamine Start: 12-12-2020 End: 12-12-2020 take 1 tablet by mouth every six hours as needed for anxiety hydrOXYzine (ATARAX) tablet 50 mg Start: 06-20-2020 End: 06-20-2020 take 1 tablet by mouth every six hours as needed hydrOXYzine (ATARAX) tablet 50 mg insulin lispro 100 unt/ml injectable solution (1 source) Insulin Analog Start: 06-10-2022 End: 06-10-2022 insulin lispro (HumaLOG) injection 1-6 Units Tiffin (2 sources) Start: 06-09-2022 End: 06-10-2022 take 450 mg by mouth twice daily at mealtime 450 mg, oral, 2 times daily with meals, First dose on Wed06/09/22 at 1142 Start: 05-15-2022 lithium capsul e 450 mg magnesium hydroxide 80 mg/ml oral suspension (6 sources) Start: 12-12-2020 End: 12-12-2020 magnesium hydroxide (MOM) 40 0 mg/5 mL suspension 2,400 mg Start: 06-20-2020 End: 06-20-2020 magnesium hydroxide (MOM) 40 0 mg/5 mL suspension 2,400 mg Start: 04-04-2020 End: 04-04-2020 magnesium hydroxide (MOM) 40 0 mg/5 mL suspension 2,400 mg take 10 mL by mouth every six hours as needed for constipation magnesium hydroxide (magnesium hydroxide) 400 mg/5 mL Susp Indications: constipation Take 10 mL by mouth every 6 (six) hours as needed Reasons: constipation. 0 Active take 10 mL by mouth once daily as needed for constipation magnesium hydroxide (magnesium hydroxide) 400 mg/5 mL Susp Indications: constipation Take 10 mL by mouth daily as needed Reasons: constipation. 0 Active magnesium oxide 400 mg oral tablet (1 source) Start: 06-30-2022 End: 06-30-2022 magnesium oxide (MAG-OX) tablet 400 mg melatonin 3 mg oral tablet (6 sources) Start: 06-09-2022 End: 07-08-2022 take 6 mg by mouth once daily 6 mg, oral, Nightly, First dose on Wed06/09/22 at 2100 Start: 05-15-2022 take 6 mg by mouth once daily 6 mg, Oral, NIGHTLY, First dose on Wed05/15/22 at 2100, Until Discontinued Start: 12-12-2020 End: 12-12-2020 take 6 mg by mouth once daily as needed 6 mg, Oral, Nightly PRN, for insomnia, Starting on Wed12/12/20 at 1100 take 2 tablets by mo ut at bedtime melatonin 3 mg tablet Take 2 tablets (6 mg total) by mouth at bedtime. 0 Active omeprazole 20 mg delayed release oral tablet (1 source) Proton Pump Inhibitor End: 05-15-2022 take 1 tablet by mouth once daily omeprazole (PRILOSEC OTC) 20 MG tablet Take 20 mg by mouth daily. 0 05/15/2022 Discontinued (Error) petrolatum 780 mg/ml / zinc oxide 100 mg/ml topical cream (1 source) End: 07-08-2022 zinc oxide-white petrolatum (Philpot Moist Barrier-Zinc) 10-78 % cream Apply 1 application topically 2 (two) times a day if needed. 0 07/08/2022 Discontinued (Stop Taking at Discharge) polyethylene glycol 3350 60573 mg powder for oral solution (5 sources) Osmotic Laxative Start: 05-15-2022 End: 07-08-2022 polyethylene glycol (MIRALAX) packet 17 g microencapsulated potassium chloride 20 meq extended release oral tablet (1 source) Start: 06-10-2022 End: 06-10-2022 potassium chloride (KLOR-CON M20) CR tablet 20 mEq Sodium Chloride (1 source) Start: 07-03-2018 End: 07-04-2018 sodium chloride (PF) (NS) flush 5 mL tamsulosin hydrochloride 0.4 mg oral capsule (8 sources) alpha-Adrenergi c Latrice Start: 06-09-2022 End: 07-08-2022 take 1 capsule by mouth once daily 0.4 mg, oral, Nightly, First dose on Wed06/09/22 at 2100 Do not crush, chew, or open. For tube administration: open capsule and administer with water (granules should NOT be crushed). Start: 05-15-2022 take 0.4 mg by mouth once daily at mealtime 0.4 mg, Oral, NIGHTLY, First dose on Wed05/15/22 at 2100, Until Discontinued Caution: Do not crush or chew. Give with food. Start: 12-12-2020 End: 12-12-2020 0.4 mg, Oral, Nightly, First dose on Wed12/12/20 at 2100 DO NOT CRUSH OR CHEW. Give 30 minutes after the same meal daily. Monitor for orthostasis due to potential risk of syncope. take 1 capsule by mo uth at bedtime tamsulosin (FLOMAX) 0.4 mg 24 hr capsule Take 1 capsule (0.4 mg total) by mouth at bedtime. Capsules should be taken 30 minutes following the same meal each day. 0 Active take 1 capsule by mo uth once daily Tamsulosin HCl (FLOMAX) 0.4 MG 24 hr capsule Take 0.4 mg by mouth nightly. 0 Active Problems Active Problems Problem Classification Problem Date Documented Date Episodic/Chronic Diabetes mellitus without complication (5 sources) Diabetes mellitus; Translations: [Type 2 diabetes mellitus without complications] Onset: 06-28-2012 06-20-2020 Chronic Essential hypertension (5 sources) Hypertensive disorder; Translations: [Essential (primary) hypertension] Onset: 06-07-2020 06-20-2020 Chronic Fluid and electrolyte disorders (6 sources) Hyperosmolality and hypernatremia; Translations: [Lactic acidosis] Onset: 02-16-2022 Episodic Genitourinary symptoms and ill-defined conditions (3 sources) Urinary incontinence; Translations: [Unspecified urinary incontinence] Onset: 12-22-2013 06-20-2020 Chronic Impulse control disorders NEC (1 source) Homicidal thoughts; Translations: [Homicidal ideation] Chronic Mood disorders (14 sources) Bipolar I disorder; Translations: [Major depression, single episode] Onset: 06-28-2012 01-15-2017 Chronic Mood disorders (9 sources) Mood disorder with depressive features due to general medical condition; Translations: [Mood disorder due to known physiological condition with depressive features] Onset: 01-12-2017 01-20-2017 Episodic Nausea and vomiting (1 source) Nausea with vomiting, unspecified; Translations: [Nausea with vomiting, unspecified] Onset: 12-18-2024 Episodic Other circulatory disease (5 sources) History of cerebrovascular accident; Translations: [Personal history of transient ischemic attack (TIA), and cerebral infarction without residual deficits] Onset: 11-07-2013 06-20-2020 Episodic Other circulatory disease (4 sources) Low blood pressure; Translations: [Hypotension, unspecified] 07-31-2024 Episodic Other circulatory disease (1 source) Hypotension, unspecified; Translations: [Hypotension, unspecified] Onset: 12-18-2024 Episodic Other connective tissue disease (2 sources) Other specified soft tissue disorders; Translations: [Other specified soft tissue disorders] Onset: 05-04-2022 Episodic Other nervous system disorders (2 sources) Encephalopathy, unspecified; Translations: [Encephalopathy, unspecified] Onset: 02-16-2022 Chronic Paralysis (3 sources) Hemiplegia; Translations: [Hemiplegia, unspecified affecting unspecified side] Onset: 06-28-2012 06-20-2020 Chronic Residual codes; unclassified (4 sources) Restlessness and agitation; Translations: [Restlessness and agitation] Onset: 05-15-2022 Chronic Residual codes; unclassified (4 sources) Restlessness and agitation; Translations: [Restlessness and agitation] Onset: 05-04-2022 Chronic Residual codes; unclassified (2 sources) Inappropriate sexual behavior; Translations: [Other problems related to lifestyle] Episodic Respiratory failure; insufficiency; arrest (adult) (5 sources) Acute respiratory failure; Translations: [Acute respiratory failure with hypoxia] Onset: 12-18-2024 07-31-2024 Episodic Schizophrenia and other psychotic disorders (10 sources) Schizoaffective schizophrenia; Translations: [Schizoaffective disorder, unspecified] Onset: 01-12-2017 01-15-2017 Chronic Septicemia (except in labor) (3 sources) Sepsis; Translations: [Sepsis, unspecified organism] Onset: 12-18-2024 12-05-2024 Episodic Unclassified (2 sources) Patient care statuses; Translations: [Health senior living, active care coordination] Onset: 12-04-2013 06-20-2020 Unclassified (2 sources) Emotional state finding; Translations: [Other symptoms and signs involving emotional state] Onset: 09-28-2017 06-20-2020 Unclassified (1 source) Acidosis, unspecified; Translations: [Acidosis, unspecified] Onset: 12-18-2024 Viral infection (2 sources) Disease caused by 2019-nCoV; Translations: [COVID-19] 08-09-2024 Episodic Viral infection (2 sources) COVID-19; Translations: [COVID-19] Onset: 08-01-2024 Past or Other Problems Problem Classification Problem Date Documented Date Episodic/Chronic Abdominal pain (3 sources) Abdominal pain; Translations: [Unspecified abdominal pain] Onset: 09-01-2017 06-20-2020 Episodic Attention-deficit conduct and disruptive behavior disorders (3 sources) Aggressive behavior; Translations: [Other symptoms and signs involving appearance and behavior] Onset: 02-22-2017 06-20-2020 Episodic Calculus of urinary tract (6 sources) Calculus of kidney; Translations: [Kidney stone] Onset: 07-03-2018 06-20-2020 Episodic Miscellaneous mental health disorders (1 source) Emotional state finding; Translations: [Other symptoms and signs involving emotional state] Onset: 09-28-2017 06-20-2020 Episodic Other and unspecified benign neoplasm (3 sources) Polyp of colon; Translations: [Polyp of colon] Onset: 01-23-2019 06-20-2020 Episodic Other and unspecified benign neoplasm (3 sources) Adenoma of transverse colon; Translations: [Benign neoplasm of transverse colon] Onset: 08-26-2018 06-20-2020 Episodic Other injuries and conditions due to external causes (3 sources) Compartment syndrome of upper limb; Translations: [Traumatic compartment syndrome of unspecified upper extremity, initial encounter] Onset: 06-28-2012 06-20-2020 Episodic Other nervous system disorders (3 sources) Dysarthria; Translations: [Dysarthria and anarthria] Onset: 06-28-2012 06-20-2020 Episodic Other nutritional; endocrine; and metabolic disorders (3 sources) Unintentional weight loss; Translations: [Abnormal weight loss] Onset: 07-13-2018 06-20-2020 Episodic Other screening for suspected conditions (not mental disorders or infectious disease) (2 sources) Encounter for screening for other disorder; Translations: [Encounter for screening for other disorder] Onset: 02-16-2022 Episodic Residual codes; unclassified (1 source) Patient care statuses; Translations: [Other specified health status] Onset: 12-04-2013 06-20-2020 Episodic Residual codes; unclassified (2 sources) Altered mental status, unspecified; Translations: [Altered mental status, unspecified] Onset: 02-16-2022 Episodic Unclassified (1 source) LAB TESTING Onset: 07-18-2020 Results Test Name Value Interpretation Reference Range Facility Basic Metabolic Profile (BMP )on 12-11-2024 BUN Normal 4-19 [facility] Comment on above: Result Comment: Canc elled via OM: Order cancelled - Patient discharged Performed By: #### L 100.0100, L500.2500 #### [facility] [address] [place], [address] BUN/CRE Normal 10-20 [facility] Comment on above: Result Comment: Canc elled via OM: Order cancelled - Patient discharged Performed By: #### L 100.0100, L500.2500 #### [facility] [address] [place], [address] Calcium Normal 7.6-11.0 [facility] Comment on above: Result Comment: Canc elled via OM: Order cancelled - Patient discharged Performed By: #### L 100.0100, L500.2500 #### [facility] [address] [place], [address] CL Normal 98-108 [facility] Comment on above: Result Comment: Canc elled via OM: Order cancelled - Patient discharged Performed By: #### L 100.0100, L500.2500 #### [facility] [address] [place], [address] CO2 Normal 21.0-32.0 [facility] Comment on above: Result Comment: Canc elled via OM: Order cancelled - Patient discharged Performed By: #### L 100.0100, L500.2500 #### [facility] [address] [place], [address] CREAT,SERUM Normal 0.70-1.20 [facility] Comment on above: Result Comment: Canc elled via OM: Order cancelled - Patient discharged Performed By: #### L 100.0100, L500.2500 #### [facility] [address] [place], [address] eGFR Normal >60 [facility] Comment on above: Result Comment: Canc elled via OM: Order cancelled - Patient discharged Performed By: #### L 100.0100, L500.2500 #### [facility] [address] [place], [address] GAP Normal 5-15 [facility] Comment on above: Result Comment: Canc elled via OM: Order cancelled - Patient discharged Performed By: #### L 100.0100, L500.2500 #### [facility] [address] [place], [address] GLU Normal 70-99 [facility] Comment on above: Result Comment: Canc elled via OM: Order cancelled - Patient discharged Performed By: #### L 100.0100, L500.2500 #### [facility] [address] [place], [address] Potassium Normal 3.3-5.1 [facility] Comment on above: Result Comment: Canc elled via OM: Order cancelled - Patient discharged Performed By: #### L 100.0100, L500.2500 #### [facility] [address] [place], [address] Basic Metabolic Profile (BMP) Normal 133-145 [facility] Comment on above: Result Comment: Canc elled via OM: Order cancelled - Patient discharged Performed By: #### L 100.0100, L500.2500 #### [facility] [address] [place], [address] CBC W/Diff, Automatedon 06-1 -2024 Absolute Neut Normal 2.0-7.7 [facility] Comment on above: Result Comment: Canc elled via OM: Order cancelled - Patient discharged Performed By: #### L 100.0100, L500.2500 #### [facility] [address] [place], [address] HCT Normal 40-54 [facility] Comment on above: Result Comment: Canc elled via OM: Order cancelled - Patient discharged Performed By: #### L 100.0100, L500.2500 #### [facility] [address] [place], [address] HGB Normal 13.0-16.5 [facility] Comment on above: Result Comment: Canc elled via OM: Order cancelled - Patient discharged Performed By: #### L 100.0100, L500.2500 #### [facility] [address] [place], [address] MCH Normal 27.0-32.0 [facility] Comment on above: Result Comment: Canc elled via OM: Order cancelled - Patient discharged Performed By: #### L 100.0100, L500.2500 #### [facility] [address] [place], [address] MCHC Normal 32-36 [facility] Comment on above: Result Comment: Canc elled via OM: Order cancelled - Patient discharged Performed By: #### L 100.0100, L500.2500 #### [facility] [address] [place], [address] MCV Normal 80-94 [facility] Comment on above: Result Comment: Canc elled via OM: Order cancelled - Patient discharged Performed By: #### L 100.0100, L500.2500 #### [facility] [address] [place], [address] NEUT% Normal 47-70 [facility] Comment on above: Result Comment: Canc elled via OM: Order cancelled - Patient discharged Performed By: #### L 100.0100, L500.2500 #### [facility] [address] [place], [address] PLT Normal 150-450 [facility] Comment on above: Result Comment: Canc elled via OM: Order cancelled - Patient discharged Performed By: #### L 100.0100, L500.2500 #### [facility] [address] [place], [address] RBC Normal 4.6-6.2 [facility] Comment on above: Result Comment: Canc elled via OM: Order cancelled - Patient discharged Performed By: #### L 100.0100, L500.2500 #### [facility] [address] [place], [address] RDW CV Normal 11.6-14.6 [facility] Comment on above: Result Comment: Canc elled via OM: Order cancelled - Patient discharged Performed By: #### L 100.0100, L500.2500 #### [facility] [address] [place], [address] RDW SD Normal 35.1-43.9 [facility] Comment on above: Result Comment: Canc elled via OM: Order cancelled - Patient discharged Performed By: #### L 100.0100, L500.2500 #### [facility] [address] [place], [address] WBC Normal 4.4-11.0 [facility] Comment on above: Result Comment: Canc elled via OM: Order cancelled - Patient discharged Performed By: #### L 100.0100, L500.2500 #### [facility] [address] [place], [address] Basic Metabolic Profile (BMP )on 12-10-2024 BUN Normal 4-19 [facility] Comment on above: Result Comment: Canc elled via OM: Order cancelled - Patient discharged Performed By: #### L 100.0100, L500.2500 #### [facility] [address] [place], [address] BUN/CRE Normal 10-20 [facility] Comment on above: Result Comment: Canc elled via OM: Order cancelled - Patient discharged Performed By: #### L 100.0100, L500.2500 #### [facility] [address] [place], [address] Calcium Normal 7.6-11.0 [facility] Comment on above: Result Comment: Canc elled via OM: Order cancelled - Patient discharged Performed By: #### L 100.0100, L500.2500 #### [facility] [address] [place], [address] CL Normal 98-108 [facility] Comment on above: Result Comment: Canc elled via OM: Order cancelled - Patient discharged Performed By: #### L 100.0100, L500.2500 #### [facility] [address] [place], [address] CO2 Normal 21.0-32.0 [facility] Comment on above: Result Comment: Canc elled via OM: Order cancelled - Patient discharged Performed By: #### L 100.0100, L500.2500 #### [facility] [address] [place], [address] CREAT,SERUM Normal 0.70-1.20 [facility] Comment on above: Result Comment: Canc elled via OM: Order cancelled - Patient discharged Performed By: #### L 100.0100, L500.2500 #### [facility] [address] [place], [address] eGFR Normal >60 [facility] Comment on above: Result Comment: Canc elled via OM: Order cancelled - Patient discharged Performed By: #### L 100.0100, L500.2500 #### [facility] [address] [place], [address] GAP Normal 5-15 [facility] Comment on above: Result Comment: Canc elled via OM: Order cancelled - Patient discharged Performed By: #### L 100.0100, L500.2500 #### [facility] [address] [place], [address] GLU Normal 70-99 [facility] Comment on above: Result Comment: Canc elled via OM: Order cancelled - Patient discharged Performed By: #### L 100.0100, L500.2500 #### [facility] [address] [place], [address] Potassium Normal 3.3-5.1 [facility] Comment on above: Result Comment: Canc elled via OM: Order cancelled - Patient discharged Performed By: #### L 100.0100, L500.2500 #### [facility] [address] [place], [address] Basic Metabolic Profile (BMP) Normal 133-145 [facility] Comment on above: Result Comment: Canc elled via OM: Order cancelled - Patient discharged Performed By: #### L 100.0100, L500.2500 #### [facility] [address] [place], [address] CBC W/Diff, Automatedon - Absolute Neut Normal 2.0-7.7 [facility] Comment on above: Result Comment: Canc elled via OM: Order cancelled - Patient discharged Performed By: #### L 100.0100, L500.2500 #### [facility] [address] [place], [address] HCT Normal 40-54 [facility] Comment on above: Result Comment: Canc elled via OM: Order cancelled - Patient discharged Performed By: #### L 100.0100, L500.2500 #### [facility] [address] [place], [address] HGB Normal 13.0-16.5 [facility] Comment on above: Result Comment: Canc elled via OM: Order cancelled - Patient discharged Performed By: #### L 100.0100, L500.2500 #### [facility] [address] [place], [address] MCH Normal 27.0-32.0 [facility] [facility] Comment on above: Result Comment: Canc elled via OM: Order cancelled - Patient discharged Performed By: #### L 100.0100, L500.2500 #### [facility] [address] [place], [address] MCHC Normal 32-36 [facility] Comment on above: Result Comment: Canc elled via OM: Order cancelled - Patient discharged Performed By: #### L 100.0100, L500.2500 #### [facility] [address] [place], [address] MCV Normal 80-94 [facility] Comment on above: Result Comment: Canc elled via OM: Order cancelled - Patient discharged Performed By: #### L 100.0100, L500.2500 #### [facility] [address] [place], [address] NEUT% Normal 47-70 [facility] Comment on above: Result Comment: Canc elled via OM: Order cancelled - Patient discharged Performed By: #### L 100.0100, L500.2500 #### [facility] [address] [place], [address] PLT Normal 150-450 [facility] Comment on above: Result Comment: Canc elled via OM: Order cancelled - Patient discharged Performed By: #### L 100.0100, L500.2500 #### [facility] [address] [place], [address] RBC Normal 4.6-6.2 [facility] Comment on above: Result Comment: Canc elled via OM: Order cancelled - Patient discharged Performed By: #### L 100.0100, L500.2500 #### [facility] [address] [place], [address] RDW CV Normal 11.6-14.6 [facility] Comment on above: Result Comment: Canc elled via OM: Order cancelled - Patient discharged Performed By: #### L 100.0100, L500.2500 #### [facility] [address] [place], [address] RDW SD Normal 35.1-43.9 [facility] Comment on above: Result Comment: Canc elled via OM: Order cancelled - Patient discharged Performed By: #### L 100.0100, L500.2500 #### [facility] [address] [place], [address] WBC Normal 4.4-11.0 [facility] Comment on above: Result Comment: Canc elled via OM: Order cancelled - Patient discharged Performed By: #### L 100.0100, L500.2500 #### [facility] [address] [place], [address] Basic Metabolic Profile (BMP )on 12-09-2024 BUN Normal 4-19 [facility] Comment on above: Result Comment: Canc elled via OM: Order cancelled - Patient discharged Performed By: #### L 501.4021 #### [facility] [address] [place], [address] BUN/CRE Normal 10-20 [facility] Comment on above: Result Comment: Canc elled via OM: Order cancelled - Patient discharged Performed By: #### L 501.4021 #### [facility] [address] [place], [address] Calcium Normal 7.6-11.0 [facility] Comment on above: Result Comment: Canc elled via OM: Order cancelled - Patient discharged Performed By: #### L 501.4021 #### [facility] [address] [place], [address] CL Normal 98-108 [facility] Comment on above: Result Comment: Canc elled via OM: Order cancelled - Patient discharged Performed By: #### L 501.4021 #### [facility] [address] [place], [address] CO2 Normal 21.0-32.0 [facility] Comment on above: Result Comment: Canc elled via OM: Order cancelled - Patient discharged Performed By: #### L 501.4021 #### [facility] [address] [place], [address] CREAT,SERUM Normal 0.70-1.20 [facility] Comment on above: Result Comment: Canc elled via OM: Order cancelled - Patient discharged Performed By: #### L 501.4021 #### [facility] [address] [place], [address] eGFR Normal >60 [facility] Comment on above: Result Comment: Canc elled via OM: Order cancelled - Patient discharged Performed By: #### L 501.4021 #### [facility] [address] [place], [address] GAP Normal 5-15 [facility] Comment on above: Result Comment: Canc elled via OM: Order cancelled - Patient discharged Performed By: #### L 501.4021 #### [facility] [address] [place], [address] GLU Normal 70-99 [facility] Comment on above: Result Comment: Canc elled via OM: Order cancelled - Patient discharged Performed By: #### L 501.4021 #### [facility] [address] [place], [address] Potassium Normal 3.3-5.1 [facility] Comment on above: Result Comment: Canc elled via OM: Order cancelled - Patient discharged Performed By: #### L 501.4021 #### [facility] [address] [place], [address] Basic Metabolic Profile (BMP) Normal 133-145 [facility] Comment on above: Result Comment: Canc elled via OM: Order cancelled - Patient discharged Performed By: #### L 501.4021 #### [facility] [address] [place], [address] CBC W/Diff, Automatedon - Absolute Neut Normal 2.0-7.7 [facility] Comment on above: Result Comment: Canc elled via OM: Order cancelled - Patient discharged Performed By: #### L 501.4021 #### [facility] [address] [place], [address] HCT Normal 40-54 [facility] Comment on above: Result Comment: Canc elled via OM: Order cancelled - Patient discharged Performed By: #### L 501.4021 #### [facility] [address] [place], [address] HGB Normal 13.0-16.5 [facility] Comment on above: Result Comment: Canc elled via OM: Order cancelled - Patient discharged Performed By: #### L 501.4021 #### [facility] [address] [place], [address] MCH Normal 27.0-32.0 [facility] Comment on above: Result Comment: Canc elled via OM: Order cancelled - Patient discharged Performed By: #### L 501.4021 #### [facility] [address] [place], [address] MCHC Normal 32-36 [facility] Comment on above: Result Comment: Canc elled via OM: Order cancelled - Patient discharged Performed By: #### L 501.4021 #### [facility] [address] [place], [address] MCV Normal 80-94 [facility] Comment on above: Result Comment: Canc elled via OM: Order cancelled - Patient discharged Performed By: #### L 501.4021 #### [facility] [address] [place], [address] NEUT% Normal 47-70 [facility] Comment on above: Result Comment: Canc elled via OM: Order cancelled - Patient discharged Performed By: #### L 501.4021 #### [facility] [address] [place], [address] PLT Normal 150-450 [facility] Comment on above: Result Comment: Canc elled via OM: Order cancelled - Patient discharged Performed By: #### L 501.4021 #### [facility] [address] [place], [address] RBC Normal 4.6-6.2 [facility] Comment on above: Result Comment: Canc elled via OM: Order cancelled - Patient discharged Performed By: #### L 501.4021 #### [facility] [address] [place], [address] RDW CV Normal 11.6-14.6 [facility] Comment on above: Result Comment: Canc elled via OM: Order cancelled - Patient discharged Performed By: #### L 501.4021 #### [facility] [address] [place], [address] RDW SD Normal 35.1-43.9 [facility] Comment on above: Result Comment: Canc elled via OM: Order cancelled - Patient discharged Performed By: #### L 501.4021 #### [facility] [address] [place], [address] WBC Normal 4.4-11.0 [facility] Comment on above: Result Comment: Canc elled via OM: Order cancelled - Patient discharged Performed By: #### L 501.4021 #### [facility] [address] [place], [address] Culture, Blood (WB)on 2024 CUB Blood cultures x2, from two different sites No growth in 5 days. Normal [facility] Comment on above: Performed By: #### L 500.4050, L503.6005, L100.0100, M200.1000, L300.3900, L300.4310 ####[facility] [address] [place], [address] Basic Metabolic Profile (BMP )on 12-08-2024 BUN Normal 4-19 [facility] Comment on above: Result Comment: Canc elled via OM: Order cancelled - Patient discharged Performed By: #### L 500.2500, L100.0100 ####[facility] [address] [place], [address] BUN/CRE Normal 10-20 [facility] Comment on above: Result Comment: Canc elled via OM: Order cancelled - Patient discharged Performed By: #### L 500.2500, L100.0100 ####[facility] [address] [place], [address] Calcium Normal 7.6-11.0 [facility] Comment on above: Result Comment: Canc elled via OM: Order cancelled - Patient discharged Performed By: #### L 500.2500, L100.0100 ####[facility] [address] [place], [address] CL Normal 98-108 [facility] Comment on above: Result Comment: Canc elled via OM: Order cancelled - Patient discharged Performed By: #### L 500.2500, L100.0100 ####[facility] [address] [place], [address] CO2 Normal 21.0-32.0 [facility] Comment on above: Result Comment: Canc elled via OM: Order cancelled - Patient discharged Performed By: #### L 500.2500, L100.0100 ####[facility] [address] [place], [address] CREAT,SERUM Normal 0.70-1.20 [facility] Comment on above: Result Comment: Canc elled via OM: Order cancelled - Patient discharged Performed By: #### L 500.2500, L100.0100 ####[facility] [address] [place], [address] eGFR Normal >60 [facility] Comment on above: Result Comment: Canc elled via OM: Order cancelled - Patient discharged Performed By: #### L 500.2500, L100.0100 ####[facility] [address] [place], [address] GAP Normal 5-15 [facility] Comment on above: Result Comment: Canc elled via OM: Order cancelled - Patient discharged Performed By: #### L 500.2500, L100.0100 ####[facility] [address] [place], [address] GLU Normal 70-99 [facility] Comment on above: Result Comment: Canc elled via OM: Order cancelled - Patient discharged Performed By: #### L 500.2500, L100.0100 ####[facility] [address] [place], [address] Potassium Normal 3.3-5.1 [facility] Comment on above: Result Comment: Canc elled via OM: Order cancelled - Patient discharged Performed By: #### L 500.2500, L100.0100 ####[facility] [address] [place], [address] Basic Metabolic Profile (BMP) Normal 133-145 [facility] Comment on above: Result Comment: Canc elled via OM: Order cancelled - Patient discharged Performed By: #### L 500.2500, L100.0100 ####[facility] [address] [place], [address] CBC W/Diff, Automatedon 06-1 -2024 Absolute Neut Normal 2.0-7.7 [facility] Comment on above: Result Comment: Canc elled via OM: Order cancelled - Patient discharged Performed By: #### L 500.2500, L100.0100 ####[facility] [address] [place], [address] HCT Normal 40-54 [facility] Comment on above: Result Comment: Canc elled via OM: Order cancelled - Patient discharged Performed By: #### L 500.2500, L100.0100 ####[facility] [address] [place], [address] HGB Normal 13.0-16.5 [facility] Comment on above: Result Comment: Canc elled via OM: Order cancelled - Patient discharged Performed By: #### L 500.2500, L100.0100 ####[facility] [address] [place], [address] MCH Normal 27.0-32.0 [facility] Comment on above: Result Comment: Canc elled via OM: Order cancelled - Patient discharged Performed By: #### L 500.2500, L100.0100 ####[facility] [address] [place], [address] MCHC Normal 32-36 [facility] Comment on above: Result Comment: Canc elled via OM: Order cancelled - Patient discharged Performed By: #### L 500.2500, L100.0100 ####[facility] [address] [place], [address] MCV Normal 80-94 [facility] Comment on above: Result Comment: Canc elled via OM: Order cancelled - Patient discharged Performed By: #### L 500.2500, L100.0100 ####[facility] [address] [place], [address] NEUT% Normal 47-70 [facility] Comment on above: Result Comment: Canc elled via OM: Order cancelled - Patient discharged Performed By: #### L 500.2500, L100.0100 ####[facility] [address] [place], [address] PLT Normal 150-450 [facility] Comment on above: Result Comment: Canc elled via OM: Order cancelled - Patient discharged Performed By: #### L 500.2500, L100.0100 ####[facility] [address] [place], [address] RBC Normal 4.6-6.2 [facility] Comment on above: Result Comment: Canc elled via OM: Order cancelled - Patient discharged Performed By: #### L 500.2500, L100.0100 ####[facility] [address] [place], [address] RDW CV Normal 11.6-14.6 [facility] Comment on above: Result Comment: Canc elled via OM: Order cancelled - Patient discharged Performed By: #### L 500.2500, L100.0100 ####[facility] [address] [place], [address] RDW SD Normal 35.1-43.9 [facility] Comment on above: Result Comment: Canc elled via OM: Order cancelled - Patient discharged Performed By: #### L 500.2500, L100.0100 ####[facility] [address] [place], [address] WBC Normal 4.4-11.0 [facility] Comment on above: Result Comment: Canc elled via OM: Order cancelled - Patient discharged Performed By: #### L 500.2500, L100.0100 ####[facility] [address] [place], [address] ENTERIC PATHOGEN PANEL STOOL on 12-08-2024 EP PANEL CALLED ICU AND ARE HAVING STOOL RECOLLECTED, NOT ENOUGH FOR EP PANEL. [facility] 12/05/24 AT 1414 Normal Reference Range = Not Detected Nucleic acid amplification test method Not detected for Campylobacter group, Salmonella species, Shigella species, Vibrio Group, Yersinia enterocolitica, EHEC (Shiga Toxin 1, Shiga Toxin 2), Norovirus Gl/Gll, and Rotavirus A. Other common stool pathogens are not detected on this panel include: Aeromonas/Plesiomon as or parasites. Order testing for these organisms separately if suspected. This is an amplified DNA test which makes it both specific and sensitive. CAMPYLOBACTER Not Detected Norovirus Not Detected Rotavirus Not Detected Salmonella Not Detected Shiga Toxin Not Detected Shigella sp. Not Detected VIBRIO Not Detected Yersinia Not Detected Normal [facility] Comment on above: Performed By: #### M 100.637 ####[facility] [address] [place], [address] Basic Metabolic Profile (BMP )on 12-07-2024 BUN Normal 4-19 [facility] Comment on above: Result Comment: Canc elled via OM: Order cancelled - Patient discharged Performed By: #### L 100.0100, L500.2500 #### [facility] [address] [place], [address] BUN/CRE Normal 10-20 [facility] Comment on above: Result Comment: Canc elled via OM: Order cancelled - Patient discharged Performed By: #### L 100.0100, L500.2500 #### [facility] [address] [place], [address] Calcium Normal 7.6-11.0 [facility] Comment on above: Result Comment: Canc elled via OM: Order cancelled - Patient discharged Performed By: #### L 100.0100, L500.2500 #### [facility] [address] [place], [address] CL Normal 98-108 [facility] Comment on above: Result Comment: Canc elled via OM: Order cancelled - Patient discharged Performed By: #### L 100.0100, L500.2500 #### [facility] [address] [place], [address] CO2 Normal 21.0-32.0 [facility] Comment on above: Result Comment: Canc elled via OM: Order cancelled - Patient discharged Performed By: #### L 100.0100, L500.2500 #### [facility] [address] [place], [address] CREAT,SERUM Normal 0.70-1.20 [facility] Comment on above: Result Comment: Canc elled via OM: Order cancelled - Patient discharged Performed By: #### L 100.0100, L500.2500 #### [facility] [address] [place], [address] eGFR Normal >60 [facility] Comment on above: Result Comment: Canc elled via OM: Order cancelled - Patient discharged Performed By: #### L 100.0100, L500.2500 #### [facility] [address] [place], [address] GAP Normal 5-15 [facility] Comment on above: Result Comment: Canc elled via OM: Order cancelled - Patient discharged Performed By: #### L 100.0100, L500.2500 #### [facility] [address] [place], [address] GLU Normal 70-99 [facility] Comment on above: Result Comment: Canc elled via OM: Order cancelled - Patient discharged Performed By: #### L 100.0100, L500.2500 #### [facility] [address] [place], [address] Potassium Normal 3.3-5.1 [facility] Comment on above: Result Comment: Canc elled via OM: Order cancelled - Patient discharged Performed By: #### L 100.0100, L500.2500 #### [facility] [address] [place], [address] Basic Metabolic Profile (BMP) Normal 133-145 [facility] Comment on above: Result Comment: Canc elled via OM: Order cancelled - Patient discharged Performed By: #### L 100.0100, L500.2500 #### [facility] [address] [place], [address] CBC W/Diff, Automatedon 06-1 Absolute Neut Normal 2.0-7.7 [facility] Comment on above: Result Comment: Canc elled via OM: Order cancelled - Patient discharged Performed By: #### L 100.0100, L500.2500 #### [facility] [address] [place], [address] HCT Normal 40-54 [facility] Comment on above: Result Comment: Canc elled via OM: Order cancelled - Patient discharged Performed By: #### L 100.0100, L500.2500 #### [facility] [address] [place], [address] HGB Normal 13.0-16.5 [facility] Comment on above: Result Comment: Canc elled via OM: Order cancelled - Patient discharged Performed By: #### L 100.0100, L500.2500 #### [facility] [address] [place], [address] MCH Normal 27.0-32.0 [facility] Comment on above: Result Comment: Canc elled via OM: Order cancelled - Patient discharged Performed By: #### L 100.0100, L500.2500 #### [facility] [address] [place], [address] MCHC Normal 32-36 [facility] Comment on above: Result Comment: Canc elled via OM: Order cancelled - Patient discharged Performed By: #### L 100.0100, L500.2500 #### [facility] [address] [place], [address] MCV Normal 80-94 [facility] Comment on above: Result Comment: Canc elled via OM: Order cancelled - Patient discharged Performed By: #### L 100.0100, L500.2500 #### [facility] [address] [place], [address] NEUT% Normal 47-70 [facility] Comment on above: Result Comment: Canc elled via OM: Order cancelled - Patient discharged Performed By: #### L 100.0100, L500.2500 #### [facility] [address] [place], [address] PLT Normal 150-450 [facility] Comment on above: Result Comment: Canc elled via OM: Order cancelled - Patient discharged Performed By: #### L 100.0100, L500.2500 #### [facility] [address] [place], [address] RBC Normal 4.6-6.2 [facility] Comment on above: Result Comment: Canc elled via OM: Order cancelled - Patient discharged Performed By: #### L 100.0100, L500.2500 #### [facility] [address] [place], [address] RDW CV Normal 11.6-14.6 [facility] Comment on above: Result Comment: Canc elled via OM: Order cancelled - Patient discharged Performed By: #### L 100.0100, L500.2500 #### [facility] [address] [place], [address] RDW SD Normal 35.1-43.9 [facility] Comment on above: Result Comment: Canc elled via OM: Order cancelled - Patient discharged Performed By: #### L 100.0100, L500.2500 #### [facility] [address] [place], [address] WBC Normal 4.4-11.0 [facility] Comment on above: Result Comment: Canc elled via OM: Order cancelled - Patient discharged Performed By: #### L 100.0100, L500.2500 #### [facility] [address] [place], [address] Absolute lymphocyte countOrd ered By: Michelle Angeles on 12-06-2024 Lymphocytes Auto (Unsp spec) [#/Vol] 2.54 10*3/uL 0.83-4.51 [facility] Absolute neutrophil countOrd ered By: Michelle Angeles on 12-06-2024 Neutrophils (Bld) [#/Vol] 7.2 10*3/uL 2.0-7.7 [facility] Anion gap in Serum or Plasma Ordered By: Michelle Angeles on 12-06-2024 Anion gap [Moles/Vol] 9 mmol/L 5-15 [facility] Automated lymphocyte count a s percentage of total leukocytesOrdered By: Michelletanisha Angeles on 12-06-2024 Lymphocytes/100 WBC Auto (Unsp spec) 23.6 % - [facility] BUN/creatinine ratioOrdered By: Michelle Angeles on 12-06-2024 Urea nitrogen/Creatinine [Mass ratio] 14.5 mg/mg - [facility] Basic Metabolic Profile (BMP )on 12-06-2024 BUN/CRE 14.5 RATIO Normal 04-16 [facility] Comment on above: Performed By: #### L 500.2500, L100.0100 ####[facility] [address] [place], [address] Calcium [Mass/Vol] 9.0 mg/dL Normal 7.6-11.0 [facility] Comment on above: Performed By: #### L 500.2500, L100.0100 ####[facility] [address] [place], [address] Chloride [Moles/Vol] 106 mmol/L Normal 98-108 [facility] Comment on above: Performed By: #### L 500.2500, L100.0100 ####[facility] [address] [place], [address] CO2 [Moles/Vol] 27.0 mmol/L Normal 21.0-32.0 [facility] Comment on above: Performed By: #### L 500.2500, L100.0100 ####[facility] [address] [place], [address] Creatinine [Mass/Vol] 1.07 mg/dL Normal 0.70-1.20 [facility] Comment on above: Performed By: #### L 500.2500, L100.0100 ####[facility] [address] [place], [address] ECRCL 91.85 ml/min Normal 50-250 [facility] Comment on above: Performed By: #### L 500.2500, L100.0100 ####[facility] [address] [place], [address] GAP 9 Normal 5-15 [facility] Comment on above: Performed By: #### L 500.2500, L100.0100 ####[facility] [address] [place], [address] GFR/1.73 sq M.predicted among non-blacks MDRD (S/P/Bld) [Vol rate/Area] 82 mL/min/{1.73_m2} Normal >60 [facility] Comment on above: Result Comment: mL/m in/1.73m2 CKD-EPI Creatinine Equation (2020) Performed By: #### L 500.2500, L100.0100 ####[facility] [address] [place], [address] Glucose [Mass/Vol] 90 mg/dL Normal 70-99 [facility] Comment on above: Performed By: #### L 500.2500, L100.0100 ####[facility] [address] [place], [address] Potassium [Moles/Vol] 4.3 mmol/L Normal 3.3-5.1 [facility] Comment on above: Performed By: #### L 500.2500, L100.0100 ####[facility] [address] [place], [address] Sodium [Moles/Vol] 142 mmol/L Normal 133-145 [facility] Comment on above: Performed By: #### L 500.2500, L100.0100 ####[facility] [address] [place], [address] Urea nitrogen [Mass/Vol] 16 mg/dL Normal 4-19 [facility] Comment on above: Performed By: #### L 500.2500, L100.0100 ####[facility] [address] [place], [address] Basophil percentageOrdered B y: Michelle Angeles on 12-06-2024 Basophils/100 WBC (Bld) 0.3 % 0-1 [facility] Bedside Glucoseon 12-06-2024 FINGERSTICK GLU 90 mg/dL Normal 74-106 [facility] Comment on above: Result Comment: JEFFREY BOWIE OF PATIENT CARE PER NURSING PROTOCOL Performed By: #### L 501.4021 #### [facility] [address] [place], [address] FINGERSTICK GLU 84 mg/dL Normal 74-106 [facility] Comment on above: Result Comment: JEFFREY BOWIE OF PATIENT CARE PER NURSING PROTOCOL Performed By: #### L 100.0100, L500.2500 #### [facility] [address] [place], [address] CBC W/Diff, Automatedon 11-26 Absolute Lymph 2.54 X10 3/uL Normal 0.83-4.51 [facility] Comment on above: Performed By: #### L 500.2500, L100.0100 ####[facility] [address] [place], [address] Absolute Neut 7.2 X10 3/uL Normal 2.0-7.7 [facility] Comment on above: Performed By: #### L 500.2500, L100.0100 ####[facility] [address] [place], [address] Basophils/100 WBC (Bld) 0.3 % Normal 0-1 [facility] Comment on above: Performed By: #### L 500.2500, L100.0100 ####[facility] [address] [place], [address] Eosinophils/100 WBC (Bld) 1.2 % Normal 0-5 [facility] Comment on above: Performed By: #### L 500.2500, L100.0100 ####[facility] [address] [place], [address] Erythrocyte distribution width (RBC) [Ratio] 14.5 % Normal 11.6-14.6 [facility] Comment on above: Performed By: #### L 500.2500, L100.0100 ####[facility] [address] [place], [address] Hematocrit (Bld) [Volume fraction] 37.8 % Low 40-54 [facility] Comment on above: Performed By: #### L 500.2500, L100.0100 ####[facility] [address] [place], [address] Hemoglobin (Bld) [Mass/Vol] 11.7 g/dL Low 13.0-16.5 [facility] Comment on above: Performed By: #### L 500.2500, L100.0100 ####[facility] [address] [place], [address] IG% 0.300 Normal 0.0-0.9 [facility] Comment on above: Result Comment: IG% - Immature Granulocytes (promyelocytes, myelocytes and metamyelocytes) > 1% indicates that a LEFT SHIFT is Present. Performed By: #### L 500.2500, L100.0100 ####[facility] [address] [place], [address] Lymphocytes/100 WBC (Bld) 23.6 % Normal 19-41 [facility] Comment on above: Performed By: #### L 500.2500, L100.0100 ####[facility] [address] [place], [address] MCH (RBC) [Entitic mass] 26.5 pg Low 27.0-32.0 [facility] Comment on above: Performed By: #### L 500.2500, L100.0100 ####[facility] [address] [place], [address] MCHC (RBC) [Mass/Vol] 31.0 g/dL Low 32-36 [facility] Comment on above: Performed By: #### L 500.2500, L100.0100 ####[facility] [address] [place], [address] MCV (RBC) [Entitic vol] 85.7 fL Normal 80-94 [facility] Comment on above: Performed By: #### L 500.2500, L100.0100 ####[facility] [address] [place], [address] Monocytes/100 WBC (Bld) 8.0 % Normal 0-10 [facility] Comment on above: Performed By: #### L 500.2500, L100.0100 ####[facility] [address] [place], [address] Neutrophils/100 WBC (Bld) 66.6 % Normal 47-70 [facility] Comment on above: Performed By: #### L 500.2500, L100.0100 ####[facility] [address] [place], [address] Nucleated RBC (Bld) [#/Vol] 0 10*3/uL Normal 0-5 [facility] Comment on above: Performed By: #### L 500.2500, L100.0100 ####[facility] [address] [place], [address] Platelet mean volume (Bld) [Entitic vol] 10.0 fL Normal 6.2-12.0 [facility] Comment on above: Performed By: #### L 500.2500, L100.0100 ####[facility] [address] [place], [address] Platelets (Bld) [#/Vol] 222 10*3/uL Normal 150-450 [facility] Comment on above: Performed By: #### L 500.2500, L100.0100 ####[facility] [address] [place], [address] RBC (Bld) [#/Vol] 4.41 10*6/uL Low 4.6-6.2 [facility] Comment on above: Performed By: #### L 500.2500, L100.0100 ####[facility] [address] [place], [address] RDW SD 45.2 fl High 35.1-43.9 [facility] Comment on above: Performed By: #### L 500.2500, L100.0100 ####[facility] [address] [place], [address] WBC (Bld) [#/Vol] 10.8 10*3/uL Normal 4.4-11.0 [facility] Comment on above: Performed By: #### L 500.2500, L100.0100 ####[facility] [address] [place], [address] Carbon dioxide, total [Moles /volume] in Central venous bloodOrdered By: Michelle Angeles on 12-06-2024 CO2 [Moles/Vol] 27.0 mmol/L 21.0-32.0 [facility] Chloride assayOrdered By: Griselda Angeles on 12-06-2024 Chloride [Moles/Vol] 106 mmol/L 98-108 [facility] Eosinophil percentageOrdered By: Michelle Angeles on 12-06-2024 Eosinophils/100 WBC (Bld) 1.2 % 0-5 [facility] Erythrocyte distribution wid th ratioOrdered By: Michelle Angeles on 12-06-2024 Erythrocyte distribution width (RBC) [Ratio] 14.5 % 11.6-14.6 [facility] Erythrocyte distribution wid th standard deviationOrdered By: Michelle Angeles on 12-06-2024 Erythrocyte distribution width (RBC) [Ratio] 45.2 fl High 35.1-43.9 [facility] Glomerular filtration rate ( GFR) estimation/1.73 sq m using serum, plasma, or whole bOrdered By: Michelle Angeles on 12-06-2024 GFR/1.73 sq M.predicted among non-blacks MDRD (S/P/Bld) [Vol rate/Area] 82 mL/min/{1.73_m2} >60 [facility] Comment on above: mL/min/1.73m2 CKD-EP I Creatinine Equation (2020) [facility] By: Michelle Angeles on 12-06-2024 Glucose [Mass/Vol] 90 mg/dL 74-106 [facility] Comment on above: MANAGEMENT OF PATIEN T CARE PER NURSING PROTOCOL Hematocrit Auto (Bld) [Volum e fraction]Ordered By: Michelle Angeles on 12-06-2024 Hematocrit (Bld) [Volume fraction] 37.8 % Low 40-54 [facility] Hemoglobin measurementOrdere d By: Michelle Angeles on 12-06-2024 Hemoglobin (Bld) [Mass/Vol] 11.7 g/dL Low 13.0-16.5 [facility] Immature granulocytes/100 WB C Auto (Bld)Ordered By: Michelle Angeles on 12-06-2024 Immature granulocytes/100 WBC (Bld) 0.300 % 0.0-0.9 [facility] Comment on above: IG% - Immature Granu locytes (promyelocytes, myelocytes and metamyelocytes) > 1% indicates that a LEFT SHIFT is Present. MCV (mean corpuscular volume ) determinationOrdered By: Michelle Angeles on 12-06-2024 MCV (RBC) [Entitic vol] 85.7 fL 80-94 [facility] Mean corpuscular hemoglobin (MCH) determinationOrdered By: Michelle Angeles 12-06-2024 MCH (RBC) [Entitic mass] 26.5 pg Low 27.0-32.0 [facility] Mean corpuscular hemoglobin concentration (MCHC) determinationOrdered By: Michelle Angeles on 12-06-2024 MCHC (RBC) [Mass/Vol] 31.0 g/dL Low 32-36 [facility] Mean platelet volume determi nationOrdered By: Michelle Angeles on 12-06-2024 Platelet mean volume (Bld) [Entitic vol] 10.0 fL 6.2-12.0 [facility] Monocyte percentageOrdered B y: Michelle Angeles on 12-06-2024 Monocytes/100 WBC (Bld) 8.0 % 0-10 [facility] Neutrophil percentageOrdered By: Michelle Angeles on 12-06-2024 Neutrophils/100 WBC (Bld) 66.6 % 47-70 [facility] Nucleated red blood cell per centageOrdered By: Michelle Angeles on 12-06-2024 Nucleated RBC/100 WBC (Bld) [Ratio] 0 % 0-5 [facility] Platelet countOrdered By: Na na Bridgette on 12-06-2024 Platelets (Bld) [#/Vol] 222 10*3/uL 150-450 [facility] Potassium measurement (mass/ volume)Ordered By: Michelle Angeles on 12-06-2024 Potassium (Unsp spec) [Mass/Vol] 4.3 mmol/L 3.3-5.1 [facility] RBC Auto (Bld) [#/Vol]Ordere d By: Michelle Angeles on 12-06-2024 RBC (Bld) [#/Vol] 4.41 10*6/uL Low 4.6-6.2 [facility] Serum creatinine measurement (mass/volume)Ordered By: Michelle Angeles on 12-06-2024 Creatinine [Mass/Vol] 1.07 mg/dL 0.70-1.20 [facility] Serum glucose measurement (m ass/volume)Ordered By: Michelle Angeles on 12-06-2024 Glucose [Mass/Vol] 90 mg/dL 70-99 [facility] Serum or plasma calcium michael urement (mass/volume)Ordered By: Michelle Angeles on 12-06-2024 Calcium [Mass/Vol] 9.0 mg/dL 7.6-11.0 [facility] Serum or plasma urea nitroge n measurement (mass/volume)Ordered By: Michelle Angeles on 12-06-2024 Urea nitrogen [Mass/Vol] 16 mg/dL 4-19 [facility] Sodium levelOrdered By: Michelle Angeles on 12-06-2024 Sodium [Moles/Vol] 142 mmol/L 133-145 [facility] Urine Cultureon 12-06-2024 [facility] Acinetobacter baumannii [place] Count 11,000-25,000 Acinetobacter baumannii: REACTION Ampicillin+Sulbac Islt JUAN PABLO <=2 levoFLOXacin Islt JUAN PABLO 4 I Meropenem Islt JUAN PABLO 0.5 S Pip+Tazo Islt JUAN PABLO <=4 S TMP SMX Islt JUAN PABLO <=20 S Normal [facility] Comment on above: Performed By: #### L 400.0001, M100.2200 #### [facility] [address] [place], [address] White blood cell (WBC) count Ordered By: Michelle Angeles on 12-06-2024 WBC (Bld) [#/Vol] 10.8 10*3/uL 4.4-11.0 [facility] Basic Metabolic Profile (BMP )on 12-05-2024 BUN/CRE 18.3 RATIO Normal 10-20 [facility] Comment on above: Performed By: #### L 100.0100, L500.2500 #### [facility] [address] [place], [address] Calcium [Mass/Vol] 8.6 mg/dL Normal 7.6-11.0 [facility] Comment on above: Performed By: #### L 100.0100, L500.2500 #### [facility] [address] [place], [address] Chloride [Moles/Vol] 108 mmol/L Normal 98-108 [facility] Comment on above: Performed By: #### L 100.0100, L500.2500 #### [facility] [address] [place], [address] CO2 [Moles/Vol] 24.2 mmol/L Normal 21.0-32.0 [facility] Comment on above: Performed By: #### L 100.0100, L500.2500 #### [facility] [address] [place], [address] Creatinine [Mass/Vol] 0.94 mg/dL Normal 0.70-1.20 [facility] Comment on above: Performed By: #### L 100.0100, L500.2500 #### [facility] [address] [place], [address] ECRCL 104.55 ml/min Normal 50-250 [facility] Comment on above: Performed By: #### L 100.0100, L500.2500 #### [facility] [address] [place], [address] GAP 9 Normal 5-15 [facility] Comment on above: Performed By: #### L 100.0100, L500.2500 #### [facility] [address] [place], [address] GFR/1.73 sq M.predicted among non-blacks MDRD (S/P/Bld) [Vol rate/Area] 96 mL/min/{1.73_m2} Normal >60 [facility] Comment on above: Result Comment: mL/m in/1.73m2 CKD-EPI Creatinine Equation (2020) Performed By: #### L 100.0100, L500.2500 #### [facility] [address] [place], [address] Glucose [Mass/Vol] 147 mg/dL High 70-99 [facility] Comment on above: Performed By: #### L 100.0100, L500.2500 #### [facility] [address] [place], [address] Potassium [Moles/Vol] 4.9 mmol/L Normal 3.3-5.1 [facility] Comment on above: Result Comment: Hemo lysis present, Results??could be affected. ?? Performed By: #### L 100.0100, L500.2500 #### [facility] [address] [place], [address] Sodium [Moles/Vol] 141 mmol/L Normal 133-145 [facility] Comment on above: Performed By: #### L 100.0100, L500.2500 #### [facility] [address] [place] [place], [address] Urea nitrogen [Mass/Vol] 17 mg/dL Normal 4-19 [facility] Comment on above: Performed By: #### L 100.0100, L500.2500 #### [facility] [address] [place], [address] Bedside Glucoseon 12-05-2024 FINGERSTICK GLU 116 mg/dL High 74-106 [facility] Comment on above: Result Comment: JEFFREY BOWIE OF PATIENT CARE PER NURSING PROTOCOL Performed By: #### L 501.080 ####[facility] [address] [place], [address] CBC W/Diff, Automatedon 11-26 0-2024 Absolute Lymph 1.35 X10 3/uL Normal 0.83-4.51 [facility] Comment on above: Performed By: #### L 100.0100, L500.2500 #### [facility] [address] [place] [place], [address] Absolute Neut 9.1 X10 3/uL High 2.0-7.7 [facility] Comment on above: Performed By: #### L 100.0100, L500.2500 #### [facility] [address] [place], [address] Basophils/100 WBC (Bld) 0.2 % Normal 0-1 [facility] Comment on above: Performed By: #### L 100.0100, L500.2500 #### [facility] [address] [place], [address] Eosinophils/100 WBC (Bld) 0.1 % Normal 0-5 [facility] Comment on above: Performed By: #### L 100.0100, L500.2500 #### [facility] [address] [place], [address] Erythrocyte distribution width (RBC) [Ratio] 14.7 % High 11.6-14.6 [facility] Comment on above: Performed By: #### L 100.0100, L500.2500 #### [facility] [address] [place], [address] Hematocrit (Bld) [Volume fraction] 37.5 % Low 40-54 [facility] Comment on above: Performed By: #### L 100.0100, L500.2500 #### [facility] [address] [place], [address] Hemoglobin (Bld) [Mass/Vol] 11.5 g/dL Low 13.0-16.5 [facility] Comment on above: Performed By: #### L 100.0100, L500.2500 #### [facility] [address] [place], [address] IG% 0.300 Normal 0.0-0.9 [facility] Comment on above: Result Comment: IG% - Immature Granulocytes (promyelocytes, myelocytes and metamyelocytes) > 1% indicates that a LEFT SHIFT is Present. Performed By: #### L 100.0100, L500.2500 #### [facility] [address] [place], [address] Lymphocytes/100 WBC (Bld) 11.6 % Low 19-41 [facility] Comment on above: Performed By: #### L 100.0100, L500.2500 #### [facility] [address] [place], [address] MCH (RBC) [Entitic mass] 26.4 pg Low 27.0-32.0 [facility] Comment on above: Performed By: #### L 100.0100, L500.2500 #### [facility] [address] [place], [address] MCHC (RBC) [Mass/Vol] 30.7 g/dL Low 32-36 [facility] Comment on above: Performed By: #### L 100.0100, L500.2500 #### [facility] [address] [place], [address] MCV (RBC) [Entitic vol] 86.2 fL Normal 80-94 [facility] Comment on above: Performed By: #### L 100.0100, L500.2500 #### [facility] [address] [place], [address] Monocytes/100 WBC (Bld) 9.4 % Normal 0-10 [facility] Comment on above: Performed By: #### L 100.0100, L500.2500 #### [facility] [address] [place], [address] Neutrophils/100 WBC (Bld) 78.4 % High 47-70 [facility] Comment on above: Performed By: #### L 100.0100, L500.2500 #### [facility] [address] [place], [address] Nucleated RBC (Bld) [#/Vol] 0 10*3/uL Normal 0-5 [facility] Comment on above: Performed By: #### L 100.0100, L500.2500 #### [facility] [address] [place], [address] Platelet mean volume (Bld) [Entitic vol] 10.4 fL Normal 6.2-12.0 [facility] Comment on above: Performed By: #### L 100.0100, L500.2500 #### [facility] [address] [place], [address] Platelets (Bld) [#/Vol] 217 10*3/uL Normal 150-450 [facility] Comment on above: Performed By: #### L 100.0100, L500.2500 #### [facility] [address] [place], [address] RBC (Bld) [#/Vol] 4.35 10*6/uL Low 4.6-6.2 [facility] Comment on above: Performed By: #### L 100.0100, L500.2500 #### [facility] [address] [place], [address] RDW SD 46.1 fl High 35.1-43.9 [facility] Comment on above: Performed By: #### L 100.0100, L500.2500 #### [facility] [address] [place], [address] WBC (Bld) [#/Vol] 11.7 10*3/uL High 4.4-11.0 [facility] Comment on above: Performed By: #### L 100.0100, L500.2500 #### [facility] [address] [place], [address] Chest 1 View (Portable)on Chest 1 View (Portable) [facility] Services [address] [place] [address] Chest 1 View (Portable) MR#: [id number] Acct: [id number] Name: RIGO GARCIA Rep #: [id number] : 1970 M 54 From: Bree clayton MD PCP: Dr. Mame Bright MD Status: ADM IN Study: Chest 1 View (Portable) Date of Exam: 12/05/24 Exam# [id number] Ordering Dr: Ean Quintana DO PROCEDURE: CHEST 1 VIEW (PORTABLE) 12/05/2024 REASON FOR EXAM: SEPSIS TECHNIQUE: Frontal view of the chest. COMPARISON: 12/04/2024. FINDINGS: Interval appearance of mild bilateral basilar atelectatic pulmonary changes. There is no demonstrated pleural abnormality. Enlarged cardiac silhouette. Normal mediastinum and mirtha. Normal visualized pulmonary arteries. Atheromatous plaques of the visualized aortic arch and descending thoracic aorta. Diffuse spondylosis of the visualized thoracic spine. Normal visualized ribs, clavicles. Degenerative joint disease. There is no demonstrated abnormality of the visualized soft tissue structures of the upper abdomen. RAD/Chest 1 View (Portable) IMPRESSION: Interval appearance of mild bilateral basilar atelectatic pulmonary changes. Reading Location: [place] [address] CC: Dr. Ean Quintana DO; Dr. Mame Bright MD Interviewing Clerk: Signed Normal [facility] Consultation - [place] 12-05-2024 Consultation - Hearings Reporter [facility] Medical Records Department [address] [place] [address] Consultation - Hearings Reporter 12/05/24 0652 MR#: [id number] Acct: [id number] Name: RIGO GARCIA Rep #: [id number] : [id number] 54 From: Ean Quintana DO PCP: Dr. Mame Bright MD Status:ADM IN Location: ICU ICU03-1 Assessment Plan Assessment/Plan (1) Sepsis: PLAN: Plan RECOMMENDATIONS: 1. Empiric antimicrobials, pending culture results. 2. Check enteric pathogen panel. 3. Supplemental oxygen, if needed, to maintain saturations at or above 90%. 4. Continue appropriate DVT prophylaxis. 5. Encourage incentive spirometer use and mobilize patient as tolerated. 6. The patient is medically stable for transfer out of the intensive care unit. IMPRESSIONS: 1. Sepsis The patient was initially admitted to the hospital with sepsis over concerns for possible aspiration pneumonia. However, the patient's chest imaging was not overtly concerning for any evidence of focal infiltrate or consolidation. He did present with nausea and vomiting with possible gastroenteritis. However, no diarrhea has been noted. At this time, the exact source of infection is not entirely clear. Repeat chest x-ray from this morning again demonstrated no focal infiltrate or consolidation. The patient appears to have defervesced with supplemental IV fluids and antimicrobials. Will continue antimicrobials, pending blood and urine culture results. Will check enteric pathogen panel. Otherwise, continue current supportive care. 2. Chronic tobacco dependency with probable obstructive lung disease While the patient was initially admitted with a supplemental oxygen requirement, he has been weaned to room air this morning. He does have an extensive tobacco abuse history and would likely benefit from having baseline PFTs completed. This cannot be accomplished on an outpatient basis. Encourage incentive spirometer use and mobilize patient as tolerated. 3. History of schizophrenia and bipolar disorder/depression /hyperlipidemia Complicates care, management, recovery and prognosis. Continue home medications as indicated. This note was generated with [employer] dictation software. It may contain incorrect words, spelling, and punctuation that were not noted in checking the note before signing. HPI Consult Data Date of Consult: 12/05/24 HPI Narrative Reason for Consultation: Sepsis HPI Narrative: The patient is a 54-year-old male, with a history as outlined below, who presented to the emergency department via EMS on December 04 with nausea and vomiting. The patient endorsed a longstanding history of tobacco dependency, but is not currently followed by a battery hand, nor has he ever been diagnosed with COPD. He reported that he does not utilize supplemental oxygen at his baseline. On presentation to the emergency department, the patient was documented to be febrile, tachycardic and tachypneic. Laboratory evaluation was notable for a white blood cell count of 12,000. Chemistry profile revealed a normal creatinine with a lactate of 5.1. Troponin was mildly elevated at 91. Urine analysis was unremarkable. Chest x-ray demonstrated no acute cardiopulmonary process. Respiratory viral panel was negative. Blood and urine cultures are pending. The patient was subsequently placed on antimicrobials and admitted to the medical intensive care unit with supplemental IV fluids. This morning, the patient is hemodynamically stable and maintaining appropriate oxygen saturations on room air. His lactic acidemia has resolved. Repeat chest x-ray from this morning demonstrated no focal infiltrate or consolidation. [facility] Medical History (Updated 12/05/24 @ 09:[address] Ean Quintana, DO) CVA (cerebral vascular accident) Depression Diabetes Bipolar 1 disorder HLD (hyperlipidemia) HTN (hypertension) Schizophrenia COVID-19 virus infection Home Medications ???Medication ???Instructions ???Recorded ???Last Taken ???Type acetaminophen 325 mg tablet 650 mg PO Q4H PRN fever or pain Unknown History (Aminofen) aripiprazole 15 mg tablet (Abilify) 15 mg PO DAILY SCHIZOPHRENIA 12/03/24 History aspirin 81 mg tablet,delayed 81 mg PO DAILY HTN 07/31/24 History release (Adult Low Dose Aspirin) atorvastatin 20 mg tablet 20 mg PO QHS HYPERLIPIDEMIA 12/03/24 History buspirone 10 mg tablet 10 mg PO TID BIPOLAR 07/31/24/02/19 History calcium carbonate ([employer] 600 mg PO Q6H PRN heartburn 11/26/24 History Heartburn Chew) cholecalciferol (vitamin D3) 1,250 1,250 mcg PO QWEEK SUPPLEMENT 11/27/24 History mcg (50,000 unit) capsule gabapentin 100 mg capsule 200 mg PO TID NEUROPATHIC PAIN 09/1912/03/24 History lorazepam 1 mg tablet (Ativan) 1 mg PO Q8H agitation 07/31/2402/19 History metformi (more content not included)... Normal [facility] Electrocardiogram reportOrde red By: German Reyna on 12-05-[address] [facility] Cardiovascular Services [address] [place] [address] 12 Lead EKG 12/04/24 1034 MR#: [id number] Acct: [id number] Name: RIGO GARCIA Rep #:[id number] : 1970 54 From: German ayers MD Attending Dr: Dr. Michelle Angeles MD Status: ADM IN Ordering Dr: Wesley Benites ate: 12/04/24 Location: ICU Sex: M UTD Admitted: 12/04/24 Test Reason : TACHY Blood Pressure : */* mmHG Vent. Rate : 131 BPM Atrial Rate : 131 BPM P-R Int : 152 ms QRS Dur : 78 ms QT Int : 296 ms P-R-T Axes : 41 82 -1 degrees QTcB Int : 437 ms Sinus tachycardia T wave abnormality, consider inferior ischemia Abnormal ECG Confirmed by German Reyna ([id number]), mapping editor NGUYEN HOUSER ([id number]) on 12/05/2024 11:11:41 AM Referred By: JESUS Confirmed By: German Reyna 12/05/24 1111 Date _ German Reyna MD CC: Dr. Franco Benites DO; Dr. Michelle Angeles MD; Dr. Mame Bright MD~ Signed [facility] Other 12 Lead EKGon 12-04-[address] [facility] Cardi[facility] Services [address] [place] [address] 12 Lead EKG 12/04/24 1034 MR#: [id number] Acct: [id number] Name: RIGO GARCIA Rep #: [id number] : 1970 54 From: German Reyna MD Attending Dr: Dr. Michelle Angeles MD Status: AD M IN Ordering Dr: Wesley Benites DO Date: 5 Location: ICU Sex: M UTD Admitted: 12/04/24 Test Reason : TACHY Blood Pressure : */* mmHG Vent. Rate : 131 BPM Atrial Rate : 131 BPM P-R Int : 152 ms QRS Dur : 78 ms QT Int : 296 ms P-R-T Axes : 41 82 -1 degrees QTcB Int : 437 ms Sinus tachycardia T wave abnormality, consider inferior ischemia Abnormal ECG Confirmed by German Reyna ([id number]), mapping editor NGUYEN HOUSER ([id number]) on 12/05/2024 11:11:41 AM Referred By: REODICA Confirmed By: German Reyna 12/05/24 1111 Date German Reyna MD CC: Dr. Franco Benites DO; Dr. Michelle Angeles MD; Dr. Mame Bright MD Signed Normal [facility] Absolute lymphocyte countOrd ered By: Franco Benites on 12-04-2024 Lymphocytes Auto (Unsp spec) [#/Vol] 0.75 10*3/uL Low 0.83-4.51 [facility] Absolute neutrophil countOrd ered By: Franco Benites on 12-04-2024 Neutrophils (Bld) [#/Vol] 10.2 10*3/uL High 2.0-7.7 [facility] Activated partial thrombopla stin time (aPTT) in platelet poor plasma by coagulation aOrdered By: Franco Benites on 12-04-2024 aPTT Coag (PPP) [Time] 23.7 s Low 24.1-36.2 [facility] Anion gap in Serum or Plasma Ordered By: Franco Benites on 12-04-2024 Anion gap [Moles/Vol] 17 mmol/L High 5-15 [facility] Automated lymphocyte count a s percentage of total leukocytesOrdered By: Franco Benites on 12-04-2024 Lymphocytes/100 WBC Auto (Unsp spec) 6.3 % Low 19-41 [facility] BUN/creatinine ratioOrdered By: Franco Delmis on 12-04-2024 Urea nitrogen/Creatinine [Mass ratio] 14.8 mg/mg 10-20 [facility] Basophil percentageOrdered B y: Franco Benites on 12-04-2024 Basophils/100 WBC (Bld) 0.2 % 0-1 [facility] Bilirubin Test strip Ql (U)O rdered By: Francoermias Benites on 12-04-2024 Bilirubin Ql (U) Negative Negative [facility] Bilirubin, totalOrdered By: Franco Benites on 12-04-2024 Bilirubin [Mass/Vol] 0.37 mg/dL 0.00-1.30 [facility] Blood Gases by CPSon 025 Base excess Calc (Bld) [Moles/Vol] 8 mmol/L High -2 to +2 [facility] Comment on above: Performed By: #### L 100.0100, L500.2500 #### [facility] Laboratory [address] [place], [place], [id number] Blood Gas Type ART Normal [facility] Comment on above: Performed By: #### L 100.0100, L500.2500 #### [facility] [address] [place], [address] CO2 [Moles/Vol] 35 mmol/L Normal [facility] Comment on above: Performed By: #### L 100.0100, L500.2500 #### [facility] [address] [place], [address] FI02 8.0 Normal [facility] Comment on above: Performed By: #### L 100.0100, L500.2500 #### [facility] [address] [place], [address] HCO3 (Bld) [Moles/Vol] 32.9 mmol/L High 22-26 [facility] Comment on above: Performed By: #### L 100.0100, L500.2500 #### [facility] [address] [place], [address] Mode Not entered [facility] Comment on above: Performed By: #### L 100.0100, L500.2500 #### [facility] [address] [place], [address] O2 Delivery Dev Not entered [facility] Comment on above: Performed By: #### L 100.0100, L500.2500 #### [facility] [address] [place], [address] pCO2 57.9 mmHg High 35-45 [facility] Comment on above: Performed By: #### L 100.0100, L500.2500 #### [facility] [address] [place], [address] pH (Bld) 7.36 [pH] Normal 7.35-7.45 [facility] Comment on above: Performed By: #### L 100.0100, L500.2500 #### [facility] [address] [place], [address] PO2 66 mmHG Low 75-100 [facility] Comment on above: Performed By: #### L 100.0100, L500.2500 #### [facility] [address] [place], [address] SITE L Brach Normal [facility] Comment on above: Performed By: #### L 100.0100, L500.2500 #### [facility] [address] [place], [address] SO2 91 Low 95-99 [facility] Comment on above: Performed By: #### L 100.0100, L500.2500 #### [facility] [address] [place], [address] Blood base excess determinat ionOrdered By: Franco Benites on 12-04-2024 Base excess Calc (BldV) [Moles/Vol] 8 mmol/L High -2-2 [facility] Blood bicarbonate measuremen tOrdered By: Franco Benites on 12-04-2024 HCO3 (Bld) [Moles/Vol] 32.9 mmol/L High 22-26 [facility] CBC W/Diff, Automatedon 06-0 Absolute Lymph 0.75 X10 3/uL Low 0.83-4.51 [facility] Comment on above: Performed By: #### L 500.4050, L503.6005, L100.0100, M200.1000, L300.3900, L300.4310 #### [facility] [address] [place], [address] Absolute Neut 10.2 X10 3/uL High 2.0-7.7 [facility] Comment on above: Performed By: #### L 500.4050, L503.6005, L100.0100, M200.1000, L300.3900, L300.4310 #### [facility] [address] [place], [address] Basophils/100 WBC (Bld) 0.2 % Normal 0-1 [facility] Comment on above: Performed By: #### L 500.4050, L503.6005, L100.0100, M200.1000, L300.3900, L300.4310 #### [facility] [address] [place], [address] Eosinophils/100 WBC (Bld) 0.5 % Normal 0-5 [facility] Comment on above: Performed By: #### L 500.4050, L503.6005, L100.0100, M200.1000, L300.3900, L300.4310 #### [facility] [address] [place], [address] Erythrocyte distribution width (RBC) [Ratio] 14.6 % Normal 11.6-14.6 [facility] Comment on above: Performed By: #### L 500.4050, L503.6005, L100.0100, M200.1000, L300.3900, L300.4310 #### [facility] [address] [place], [address] Hematocrit (Bld) [Volume fraction] 43.2 % Normal 40-54 [facility] Comment on above: Performed By: #### L 500.4050, L503.6005, L100.0100, M200.1000, L300.3900, L300.4310 #### [facility] [address] [place], [address] Hemoglobin (Bld) [Mass/Vol] 13.2 g/dL Normal 13.0-16.5 [facility] Comment on above: Performed By: #### L 500.4050, L503.6005, L100.0100, M200.1000, L300.3900, L300.4310 #### [facility] [address] [place], [address] IG% 0.300 Normal 0.0-0.9 [facility] Comment on above: Result Comment: IG% - Immature Granulocytes (promyelocytes, myelocytes and metamyelocytes) > 1% indicates that a LEFT SHIFT is Present. Performed By: #### L 500.4050, L503.6005, L100.0100, M200.1000, L300.3900, L300.4310 #### [facility] [address] [place], [address] Lymphocytes/100 WBC (Bld) 6.3 % Low 19-41 [facility] Comment on above: Performed By: #### L 500.4050, L503.6005, L100.0100, M200.1000, L300.3900, L300.4310 #### [facility] [address] [place], [address] MCH (RBC) [Entitic mass] 26.1 pg Low 27.0-32.0 [facility] Comment on above: Performed By: #### L 500.4050, L503.6005, L100.0100, M200.1000, L300.3900, L300.4310 #### [facility] [address] [place], [address] MCHC (RBC) [Mass/Vol] 30.6 g/dL Low 32-36 [facility] Comment on above: Performed By: #### L 500.4050, L503.6005, L100.0100, M200.1000, L300.3900, L300.4310 #### [facility] [address] [place], [address] MCV (RBC) [Entitic vol] 85.4 fL Normal 80-94 [facility] Comment on above: Performed By: #### L 500.4050, L503.6005, L100.0100, M200.1000, L300.3900, L300.4310 #### [facility] [address] [place], [address] Monocytes/100 WBC (Bld) 6.8 % Normal 0-10 [facility] Comment on above: Performed By: #### L 500.4050, L503.6005, L100.0100, M200.1000, L300.3900, L300.4310 #### [facility] [address] [place], [address] Neutrophils/100 WBC (Bld) 85.9 % High 47-70 [facility] Comment on above: Performed By: #### L 500.4050, L503.6005, L100.0100, M200.1000, L300.3900, L300.4310 #### [facility] [address] [place], [address] Nucleated RBC (Bld) [#/Vol] 0 10*3/uL Normal 0-5 [facility] Comment on above: Performed By: #### L 500.4050, L503.6005, L100.0100, M200.1000, L300.3900, L300.4310 #### [facility] [address] [place], [address] Platelet mean volume (Bld) [Entitic vol] 9.6 fL Normal 6.2-12.0 [facility] Comment on above: Performed By: #### L 500.4050, L503.6005, L100.0100, M200.1000, L300.3900, L300.4310 #### [facility] [address] [place], [address] Platelets (Bld) [#/Vol] 236 10*3/uL Normal 150-450 [facility] Comment on above: Performed By: #### L 500.4050, L503.6005, L100.0100, M200.1000, L300.3900, L300.4310 #### [facility] [address] [place], [address] RBC (Bld) [#/Vol] 5.06 10*6/uL Normal 4.6-6.2 [facility] Comment on above: Performed By: #### L 500.4050, L503.6005, L100.0100, M200.1000, L300.3900, L300.4310 #### [facility] [address] [place], [address] RDW SD 45.2 fl High 35.1-43.9 [facility] Comment on above: Performed By: #### L 500.4050, L503.6005, L100.0100, M200.1000, L300.3900, L300.4310 #### [facility] [address] [place], [address] WBC (Bld) [#/Vol] 11.9 10*3/uL High 4.4-11.0 [facility] Comment on above: Performed By: #### L 500.4050, L503.6005, L100.0100, M200.1000, L300.3900, L300.4310 #### [facility] [address] [place], [address] Carbon dioxide, total [Moles /volume] in Central venous bloodOrdered By: Franco Benites on 12-04-2024 CO2 [Moles/Vol] 24.1 mmol/L 21.0-32.0 [facility] Chest 1 Viewon 12-04-[address] [facility] Imaging Services [address] [place] [address] Chest 1 View MR#: [id number] Acct: [id number] Name: RIGO GARCIA Rep #: [id number] : 1970 M 54 From: Chandu Stratton DO PCP: Dr. Mame Bright MD Status: REG ER Study: Chest 1 View Date of Exam: 12/04/24 Exam# [id number] Ordering Dr: Wesley Benites DO PROCEDURE: CHEST 1 VIEW 12/04/2024 REASON FOR EXAM: SHORTNESS OF BREATH TECHNIQUE: Frontal view of the chest. COMPARISON: Chest radiograph July 31, 2019 FINDINGS: Hardware: EKG lead wires Heart: Normal size Lungs: Clear Bones: No aggressive bone lesions Other: RAD/Chest 1 View IMPRESSION: No acute process. Reading [facility] CC: Dr. Franco Benites DO; Dr. Mame Bright MD Interviewing Clerk: Signed Normal [facility] Chloride assayOrdered By: Adolph Benites on 12-04-2024 Chloride [Moles/Vol] 100 mmol/L 98-108 [facility] Comprehensive Metabolic Prof ilon 12-04-2024 Albumin [Mass/Vol] 4.3 g/dL Normal 3.5-5.0 [facility] Comment on above: Performed By: #### L 500.4050, L503.6005, L100.0100, M200.1000, L300.3900, L300.4310 ####[facility] [address] [place], [address] Albumin/Globulin [Mass ratio] 1.4 {ratio} Normal 0.9-2.4 [facility] Comment on above: Performed By: #### L 500.4050, L503.6005, L100.0100, M200.1000, L300.3900, L300.4310 ####[facility] [address] [place], [address] ALK PHOS 148 U/L High 40-129 [facility] Comment on above: Performed By: #### L 500.4050, L503.6005, L100.0100, M200.1000, L300.3900, L300.4310 ####[facility] [address] [place] [place], [address] ALT [Catalytic activity/Vol] 7 U/L Normal <=46 [facility] Comment on above: Performed By: #### L 500.4050, L503.6005, L100.0100, M200.1000, L300.3900, L300.4310 ####[facility] [address] [place], [address] AST [Catalytic activity/Vol] 17 U/L Normal <=37 [facility] Comment on above: Performed By: #### L 500.4050, L503.6005, L100.0100, M200.1000, L300.3900, L300.4310 ####[facility] [address] [place], [address] Bilirubin [Mass/Vol] 0.37 mg/dL Normal 0.00-1.30 [facility] Comment on above: Performed By: #### L 500.4050, L503.6005, L100.0100, M200.1000, L300.3900, L300.4310 ####[facility] [address] [place], [address] BUN/CRE 14.8 RATIO Normal 10-20 [facility] Comment on above: Performed By: #### L 500.4050, L503.6005, L100.0100, M200.1000, L300.3900, L300.4310 ####[facility] [address] [place], [address] Calcium [Mass/Vol] 9.6 mg/dL Normal 7.6-11.0 [facility] Comment on above: Performed By: #### L 500.4050, L503.6005, L100.0100, M200.1000, L300.3900, L300.4310 ####[facility] [address] [place], [address] Chloride [Moles/Vol] 100 mmol/L Normal 98-108 [facility] Comment on above: Performed By: #### L 500.4050, L503.6005, L100.0100, M200.1000, L300.3900, L300.4310 ####[facility] [address] [place], [address] CO2 [Moles/Vol] 24.1 mmol/L Normal 21.0-32.0 [facility] Comment on above: Performed By: #### L 500.4050, L503.6005, L100.0100, M200.1000, L300.3900, L300.4310 ####[facility] [address] [place], [address] Creatinine [Mass/Vol] 1.15 mg/dL Normal 0.70-1.20 [facility] Comment on above: Performed By: #### L 500.4050, L503.6005, L100.0100, M200.1000, L300.3900, L300.4310 ####[facility] [address] [place], [address] ECRCL 86.37 ml/min Normal 50-250 [facility] Comment on above: Performed By: #### L 500.4050, L503.6005, L100.0100, M200.1000, L300.3900, L300.4310 ####[facility] [address] [place], [address] GAP 17 High 5-15 [facility] Comment on above: Performed By: #### L 500.4050, L503.6005, L100.0100, M200.1000, L300.3900, L300.4310 ####[facility] [address] [place], [address] GFR/1.73 sq M.predicted among non-blacks MDRD (S/P/Bld) [Vol rate/Area] 76 mL/min/{1.73_m2} Normal >60 [facility] Comment on above: Result Comment: mL/m in/1.73m2 CKD-EPI Creatinine Equation (2020) Performed By: #### L 500.4050, L503.6005, L100.0100, M200.1000, L300.3900, L300.4310 ####[facility] [address] [place], [address] Globulin (S) [Mass/Vol] 3.0 g/dL Normal 2.2-4.2 [facility] Comment on above: Performed By: #### L 500.4050, L503.6005, L100.0100, M200.1000, L300.3900, L300.4310 ####[facility] [address] [place], [address] Glucose [Mass/Vol] 112 mg/dL High 70-99 [facility] Comment on above: Performed By: #### L 500.4050, L503.6005, L100.0100, M200.1000, L300.3900, L300.4310 ####[facility] [address] [place], [address] Potassium [Moles/Vol] 4.3 mmol/L Normal 3.3-5.1 [facility] Comment on above: Performed By: #### L 500.4050, L503.6005, L100.0100, M200.1000, L300.3900, L300.4310 ####[facility] [address] [place], [address] Sodium [Moles/Vol] 141 mmol/L Normal 133-145 [facility] Comment on above: Performed By: #### L 500.4050, L503.6005, L100.0100, M200.1000, L300.3900, L300.4310 ####[facility] [address] [place], [address] T PROT 7.3 g/dL Normal 5.9-8.4 [facility] Comment on above: Performed By: #### L 500.4050, L503.6005, L100.0100, M200.1000, L300.3900, L300.4310 ####[facility] [address] [place], [address] Urea nitrogen [Mass/Vol] 17 mg/dL Normal 4-19 [facility] Comment on above: Performed By: #### L 500.4050, L503.6005, L100.0100, M200.1000, L300.3900, L300.4310 ####[facility] [address] [place], [place], [address] Emergency Department Summary on 12-04-2024 Emergency Department Summary [facility] Medical Records Department [address] [place] [address] Emergency Department Summary 12/04/24 MR#: [id number] Acct: [id number] Name: RIGO GARCIA Rep #: [id number] : 1970 54 From: Franco Benites DO PCP: Dr. Mame Bright MD Status:ADM IN Location: ICU ICU03-1 HPI History of Present Illness Chief Complaint: Nausea/Vomiting Narrative Narrative: Chief complaint and HPI: 54-year-old gentleman with past medical history of HTN, COPD, HLD, schizophrenia, DM2, CVA with right-sided paralysis and wheelchair-bound presents for evaluation of nausea and vomiting. Patient is a very poor historian therefore history taken by [facility] where patient resides as well as medical record. Patient was found to be febrile today at 100.5 as well as tachycardic and tachypneic. He was 72% on room air in which she was placed on nasal cannula. Associated symptom nausea and vomiting. Patient has a history of respiratory failure in July and staff feels that this is similar to the way he presented at that time. Patient currently endorses nausea and endorses general malaise with cough. Denies any chest pain, shortness of breath, abdominal pain, diarrhea, dysuria. Review of systems: See HPI Medications: As listed on the chart Allergies: As listed on the chart PFSH: Per chart Vital signs: As listed on the chart. Reviewed. Physical exam: Gen: A O x2-did not know the year, not abnormal for him per report given that patient has a history of memory issues since his CVA, unwell appearing Head: Normocephalic, atraumatic Eyes: No sclera icterus, conjunctiva clear, PERRL, EOMI ENT: TMs clear BL, moist mucous membranes, posterior oropharynx unremarkable, uvula midline Neck: Trachea midline, No JVD, Full ROM, No meningismus CV: Tachycardic, regular rhythm, no murmurs Resp: Diminished, coarse, expiratory wheezing, on 12 L high flow GI: Abd soft, non-distended, non-tender, no r/r/g Musc: Moves left side, baseline deficit on the right from previous CVA Skin: Warm, no rash Neuro: Alert, grossly intact, sensation intact Psych: Cooperative [facility] Medical History CVA (cerebral vascular accident) Depression Diabetes Bipolar 1 disorder HLD (hyperlipidemia) HTN (hypertension) Schizophrenia COVID-19 virus infection Home Medications ???Medication ???Instructions ???Recorded ???Last Taken ???Type acetaminophen 325 mg tablet 650 mg PO Q4H PRN fever or pain Unknown History (Aminofen) aripiprazole 15 mg tablet (Abilify) 15 mg PO DAILY SCHIZOPHRENIA 12/03/24 History aspirin 81 mg tablet,delayed 81 mg PO DAILY HTN 07/31/24 History release (Adult Low Dose Aspirin) atorvastatin 20 mg tablet 20 mg PO QHS HYPERLIPIDEMIA 12/03/24 History buspirone 10 mg tablet 10 mg PO TID BIPOLAR 07/31/2402/19 History calcium carbonate ([employer] 600 mg PO Q6H PRN heartburn 11/26/24 History Heartburn Chew) cholecalciferol (vitamin D3) 1,250 1,250 mcg PO QWEEK SUPPLEMENT 11/27/24 History mcg (50,000 unit) capsule gabapentin 100 mg capsule 200 mg PO TID NEUROPATHIC PAIN 09/1912/03/24 History lorazepam 1 mg tablet (Ativan) 1 mg PO Q8H agitation 07/31/2402/19 History metformin 1,000 mg tablet 1,000 mg PO BID DM 07/31/24 History sennosides 8.6 mg-docusate sodium 1 tab-cap PO DAILY CONSTIPATION 0 07/31/24 12/03/24 History 50 mg tablet (Colace 2-In-1) trazodone 50 mg tablet 50 mg PO QHS BIPOLAR 07/31/24/02/19 History vortioxetine 20 mg tablet 20 mg PO DAILY DEPRESSION 07/31/24 12/03/24 History (Trintellix) Allergy/AdvReac Type Severity Reaction Status Date / Time ibuprofen Allergy Rash Verified 07/31/24 11:57 Penicillins Allergy RASH Verified 07/31/24 11:57 Family History no significant family his Surgical History no surgical history Social History Smoking Status: Current every day smoker tobacco type: cigarettes EXAM Physical Exam Const Vital Signs: 12/04/24 10:26 12/04/24 10:31 12/04/24 10:36 Temperature 103.3 F H 103.3 F H Temperature Source Oral Oral Pulse Rate 148 H 132 H Respiratory Rate 40 H Respiratory Pattern Blood Pressure 136/79 H 136/79 H Blood Pressure Mean 98 98 Pulse Ox 79 90 91 Oxygen Delivery Method Room Air Nasal Cannula High Flow Oxygen Flow Rate (L/min) 6 12 12/04/24 10:43 12/04/24 11:22 12/04/24 11:26 Temperature Temperature Source Pulse Rate 117 H Respiratory Rate 24 H Respiratory Pattern Normal Blood Pressure 99/67 Blood Pressure Mean 77 Pulse Ox 92 Oxygen Delivery Method High Flow Oxygen Flow R (more content not included)... Normal [facility] Eosinophil percentageOrdered By: Franco Benites on 12-04-2024 Eosinophils/100 WBC (Bld) 0.5 % 0-5 [facility] Erythrocyte distribution wid th ratioOrdered By: Franco Benites on 12-04-2024 Erythrocyte distribution width (RBC) [Ratio] 14.6 % 11.6-14.6 [facility] Erythrocyte distribution wid th standard deviationOrdered By: Franco Lorenzayadira Rodriguez on 12-04-2024 Erythrocyte distribution width (RBC) [Ratio] 45.2 fl High 35.1-43.9 [facility] Glomerular filtration rate ( GFR) estimation/1.73 sq m using serum, plasma, or whole bOrdered By: Franco [facility] center[facility] on 12-04-2024 GFR/1.73 sq M.predicted among non-blacks MDRD (S/P/Bld) [Vol rate/Area] 76 mL/min/{1.73_m2} >60 [facility] Comment on above: mL/min/1.73m2 CKD-EP I Creatinine Equation (2020) H AND P Exam - [facility] 12-04-2024 H&P Exam - Hospitalist [facility] Medical Records Department [address] [facility] [facility] [place] [address] H P Exam - Hospitalist 12/04/24 1248 MR#: [id number] Acct: [id number] Name: RIGO GARCIA Rep #: [id number] : 1970 54 From: Michelle Angeles MD PCP: Dr. Mame Bright MD Status:ADM IN Location: ICU ICU03-1 HPI - General General Date of Admission: 12/04/24 Date of Service: 12/04/24 Chief Complaint: nausea, vomiting HPI Narrative RIGO GARCIA, is a 54 M with a PMH as outlined who presents from his SNF on 12/04/2024 with a complaint of nausea and vomiting. HE lives in [facility] where he resides. HE was brought in from the SNF due to fever and tachypnea as well as tachycardia. HE had nausea and vomiting today and became acutely short of breath. He denied any chest pain, and was also febrile. He was saturating at 72% on room air and slightly placed on nasal cannula and the EMS called. He was brought him in the ED. Vitals in the ED were blood pressure of 99/64, pulse rate of 101, respiratory rate of 12 and temperature 101.7 ???F. He was saturating at 91% on 10 L of oxygen. CBC showed hemoglobin of 13.2 with WBC of 11.9 and platelets of 236. INR is 1. ABG done showed pH of 7.36 with oxygen saturation of 91% and pO2 of 66 as well as pCO2 of 57.9. Chemistry showed sodium of 141 potassium of 4.3 and bicarb of 24.1. Creatinine was 1.15. Lactic acid was 5.1. ALP was 148. AST, ALT and total bilirubin were normal. Urinalysis showed no evidence of UTI. Chest x-ray showed no acute cardiopulmonary pathology. EKG showed no acute ST changes. Urinalysis showed no evidence of UTI. He has been admitted to be managed for acute hypoxic and hypercapnic respiratory failure due to COPD exacerbation with probable aspiration pneumonia. [facility] Medical History CVA (cerebral vascular accident) Depression Diabetes Bipolar 1 disorder HLD (hyperlipidemia) HTN (hypertension) Schizophrenia COVID-19 virus infection Home Medications ???Medication ???Instructions ???Recorded ???Last Taken ???Type acetaminophen 325 mg tablet 650 mg PO Q4H PRN fever or pain Unknown History (Aminofen) aripiprazole 15 mg tablet (Abilify) 15 mg PO DAILY SCHIZOPHRENIA 12/03/24 History aspirin 81 mg tablet,delayed 81 mg PO DAILY HTN 07/31/24 History release (Adult Low Dose Aspirin) atorvastatin 20 mg tablet 20 mg PO QHS HYPERLIPIDEMIA 12/03/24 History buspirone 10 mg tablet 10 mg PO TID BIPOLAR 07/31/24 0602/19 History calcium carbonate ([employer] 600 mg PO Q6H PRN heartburn 11/26/24 History Heartburn Chew) cholecalciferol (vitamin D3) 1,250 1,250 mcg PO QWEEK SUPPLEMENT 11/27/24 History mcg (50,000 unit) capsule gabapentin 100 mg capsule 200 mg PO TID NEUROPATHIC PAIN 09/1912/03/24 History lorazepam 1 mg tablet (Ativan) 1 mg PO Q8H agitation 07/31/2402/19 History metformin 1,000 mg tablet 1,000 mg PO BID DM 07/31/24 History sennosides 8.6 mg-docusate sodium 1 tab-cap PO DAILY CONSTIPATION 0 07/31/24 12/03/24 History 50 mg tablet (Colace 2-In-1) trazodone 50 mg tablet 50 mg PO QHS BIPOLAR 07/31/2402/19 History vortioxetine 20 mg tablet 20 mg PO DAILY DEPRESSION 07/31/24 12/03/24 History (Trintellix) Allergy/AdvReac Type Severity Reaction Status Date / Time ibuprofen Allergy Rash Verified 07/31/24 11:57 Penicillins Allergy RASH Verified 07/31/24 11:57 Family History no significant family his Surgical History no surgical history Social History Smoking Status: Current every day smoker tobacco type: cigarettes ROS Constitutional Constitutional: Reports fatigue and malaise; Denies anorexia, chills or fever(s) Eyes Eyes: Denies change in vision ENT HEENT: Denies dysphagia, headache(s) or sore throat Cardiovascular Cardiovascular: Denies chest pain, dyspnea on exertion, edema, lightheadedness or orthopnea Respiratory/Chest Respiratory/Chest: Reports cough, dyspnea, productive cough, shortness of breath at rest and shortness of breath with exertion; Denies wheezing Gastrointestinal Gastrointestinal: Reports nausea and vomiting; Denies abdominal pain, constipation, diarrhea, dyspepsia or hematemesis Genitourinary Genitourinary: Denies dysuria Neurologic Neurologic: Denies confusion, dizziness, focal weakness, headache(s), numbness, paresthesias, seizure-like activity, seizures or syncope Psychiatric Psychiatric: Denies anxiety Vital Signs Vital Signs Vital Signs: 12/04/24 10:26 12/04/24 10:31 12/04/24 10:36 Temperature 103.3 F H 103.3 F H Temperature Source Oral Oral Pulse Rate 148 H 132 H Respiratory Rate 40 H Respiratory Pattern (more content not included)... Normal [facility] Hematocrit Auto (Bld) [Volum e fraction]Ordered By: Franco Benites on 12-04-2024 Hematocrit (Bld) [Volume fraction] 43.2 % 40-54 [facility] Hemoglobin measurementOrdere d By: Franco Benites on 12-04-2024 Hemoglobin (Bld) [Mass/Vol] 13.2 g/dL 13.0-16.5 [facility] Immature granulocytes/100 WB C Auto (Bld)Ordered By: Franco Benites on 12-04-2024 Immature granulocytes/100 WBC (Bld) 0.300 % 0.0-0.9 [facility] Comment on above: IG% - Immature Granu locytes (promyelocytes, myelocytes and metamyelocytes) > 1% indicates that a LEFT SHIFT is Present. International normalized rat io (INR) calculationOrdered By: Franco Benites on 12-04-2024 INR Coag (Bld) [Relative time] 1.0 {INR} [facility] Ketones Test strip Ql (U)Ord ered By: Francoermias Benites on 12-04-2024 Ketones Ql (U) 5 mg/dl High Negative [facility] L499.0042on 12-04-2024 Trop T High Sen 91 ng/L Invalid Interpretation Code <=22 [facility] Comment on above: Result Comment: Crit ical Result(s) Called at 1337: by: BRAYDEN SPRAGUE TO [facility]. ??Results read back by same. Performed By: #### L 100.0100, L500.2500 #### [facility] Laboratory [address] [facility] [place], [place], [address] L501.4021on 12-04-2024 Trop T High Sen 35 ng/L High <=22 [facility] Comment on above: Performed By: #### L 501.4021 #### [facility] [address] [place], [address] Laboratory - Chemistry and C hemistry - challengeOrdered By: Franco Hoda on 12-04-2024 AST [Catalytic activity/Vol] 17 U/L <38 [facility] Lactic Acidon 12-04-2024 Lactate [Moles/Vol] mmol/L Normal 0.0-2.0 [facility] Comment on above: Performed By: #### L 100.0100, L500.2500 #### [facility] [address] [place], [place], [address] Lactate [Moles/Vol] 5.1 mmol/L Invalid Interpretation Code 0.0-2.0 [facility] Comment on above: Order Comment: Y Result Comment: Crit ical Result(s) Called at 1150: by:?? BRAYDEN SPRAGUE TO [facility]. Results read back by same. Performed By: #### L 500.4050, L503.6005, L100.0100, M200.1000, L300.3900, L300.4310 ####[facility] [id number] [place], [place], [id number] Lactic acid measurementOrder ed By: Franco Benites on 12-04-2024 Lactate [Moles/Vol] mmol/L 0.0-2.0 [facility] Lactate [Moles/Vol] 5.1 mmol/L High 0.0-2.0 [facility] Comment on above: Critical Result(s) C alled at 1150: by: BRAYDEN SPRAGUE TO [facility]. Results read back by same. MCV (mean corpuscular volume ) determinationOrdered By: Franco Benites on 12-04-2024 MCV (RBC) [Entitic vol] 85.4 fL 80-94 [facility] Mean corpuscular hemoglobin (MCH) determinationOrdered By: Franco Benites on 12-04-2024 MCH (RBC) [Entitic mass] 26.1 pg Low 27.0-32.0 [facility] Mean corpuscular hemoglobin concentration (MCHC) determinationOrdered By: Franco Benites on 12-04-2024 MCHC (RBC) [Mass/Vol] 30.6 g/dL Low 32-36 [facility] Mean platelet volume determi nationOrdered By: Franco Benites on 12-04-2024 Platelet mean volume (Bld) [Entitic vol] 9.6 fL 6.2-12.0 [facility] Measurement, pHOrdered By: Tanisha Benites on 12-04-2024 pH (Unsp spec) 7.36 [pH] 7.35-7.45 [facility] Microscopic analysis of urin e for red blood cells (RBC)Ordered By: Franco Benites on 12-04-2024 Microscopic analysis of urine for red blood cells (RBC) 0-5 SEEN /hpf 0-5 [facility] Monocyte percentageOrdered B y: Franco Benites on 12-04-2024 Monocytes/100 WBC (Bld) 6.8 % 0-10 [facility] Mucus LM Ql (Urine sed)Order ed By: Franco Benites on 12-04-2024 Mucus Ql (Urine sed) 0 SEEN /hpf [facility] Neutrophil percentageOrdered By: Franco Benites on 12-04-2024 Neutrophils/100 WBC (Bld) 85.9 % High 47-70 [facility] Nitrite Test strip Ql (U)Ord ered By: Franco Benites on 12-04-2024 Nitrite Ql (U) Negative Negative [facility] No Panel InformationOrdered By: Franco Benites on 12-04-2024 Blood Gas Sample Site L Brach [facility] Blood Gas Specimen Type ART [facility] Blood Gas Vent Mode Not entered [facility] Oxygen Delivery Device Not entered [facility] Nucleated red blood cell per centageOrdered By: Franco Benites on 12-04-2024 Nucleated RBC/100 WBC (Bld) [Ratio] 0 % 0-5 [facility] Partial Thromboplast Timeon 12-04-2024 aPTT Coag (Bld) [Time] 23.7 s Low 24.1-36.2 [facility] Comment on above: Performed By: #### L 500.4050, L503.6005, L100.0100, M200.1000, L300.3900, L300.4310 ####[facility] [id number] [place], [address] Platelet countOrdered By: Adolph Benites on 06-09-2025 Platelets (Bld) [#/Vol] 236 10*3/uL 150-450 [facility] Potassium measurement (mass/ volume)Ordered By: Franco Benites on 12-04-2024 Potassium (Unsp spec) [Mass/Vol] 4.3 mmol/L 3.3-5.1 [facility] Protein Test strip Ql (U)Ord ered By: Franco Benites on 12-04-2024 Protein Ql (U) 30 mg/dl High Negative [facility] Prothrombin Time w/INRon INR Coag (PPP) [Relative time] 1.0 {INR} Normal [facility] Comment on above: Performed By: #### L 500.4050, L503.6005, L100.0100, M200.1000, L300.3900, L300.4310 #### [facility] [address] [place], [address] PT Coag (PPP) [Time] 13.4 s Normal 11.7-14.9 [facility] Comment on above: Performed By: #### L 500.4050, L503.6005, L100.0100, M200.1000, L300.3900, L300.4310 #### [facility] [address] [place], [address] Prothrombin timeOrdered By: Franco Benites on 12-04-2024 PT Coag (PPP) [Time] 13.4 s 11.7-14.9 [facility] RBC Auto (Bld) [#/Vol]Ordere d By: Franco Benites on 12-04-2024 RBC (Bld) [#/Vol] 5.06 10*6/uL 4.6-6.2 [facility] RESPIRATORY PANEL MOLECULARo n 12-04-2024 RP PANEL Normal Reference Range = Not Detected Resp path DNA+RNA Pnl Resp DALIA+probe Nucleic acid amplification test method ADENOVIRUS Not Detected INFLUENZA A Not Detected INFLUENZA A (SUBTYPE H1) Not Detected INFLUENZA A (SUBTYPE H3) Not Detected INFLUENZA B Not Detected HUMAN METAPHNEUMO Not Detected PARAINFLUENZA 1 Not Detected PARAINFLUENZA 2 Not Detected PARAINFLUENZA 3 Not Detected PARAINFLUENZA 4 Not Detected RHINOVIRUS Not Detected RSV A Not Detected RSV B Not Detected Normal [facility] Comment on above: Performed By: #### M 100.638 ####[facility] [address] [place], [place], [id number] Respiratory pathogens detect ion panel by molecular detection methodOrdered By: Franco Benites on 12-04-2024 Respiratory pathogens DNA and RNA panel DALIA+probe (Resp) [facility] Serum creatinine measurement (mass/volume)Ordered By: Franco Benites on 12-04-2024 Creatinine [Mass/Vol] 1.15 mg/dL 0.70-1.20 [facility] Serum globulin measurementOr dered By: Franco Benites on 12-04-2024 Globulin (S) [Mass/Vol] 3.0 g/dL 2.2-4.2 [facility] Serum glucose measurement (m ass/volume)Ordered By: Franco Benites on 12-04-2024 Glucose [Mass/Vol] 112 mg/dL High 70-99 [facility] Serum or plasma alanine ramsey otransferase (ALT) measurementOrdered By: Franco Benites on 12-04-2024 ALT [Catalytic activity/Vol] 7 U/L <47 [facility] Serum or plasma albumin michael urement (mass/volume)Ordered By: Franco Rodriguez on 12-04-2024 Albumin [Mass/Vol] 4.3 g/dL 3.5-5.0 [facility] Serum or plasma albumin/glob ulin mass ratioOrdered By: Franco Benites on 12-04-2024 Albumin/Globulin [Mass ratio] 1.4 {ratio} 0.9-2.4 [facility] Serum or plasma alkaline katey sphatase measurementOrdered By: Franco Benites on 12-04-2024 ALP [Catalytic activity/Vol] 148 U/L High 40-129 [facility] Serum or plasma calcium michael urement (mass/volume)Ordered By: Franco Rodriguez on 12-04-2024 Calcium [Mass/Vol] 9.6 mg/dL 7.6-11.0 [facility] Serum or plasma urea nitroge n measurement (mass/volume)Ordered By: Franco Benites on 12-04-2024 Urea nitrogen [Mass/Vol] 17 mg/dL 4-19 [facility] Sodium levelOrdered By: Wesley Benites on 12-04-2024 Sodium [Moles/Vol] 141 mmol/L 133-145 [facility] Squamous epithelial cells de tection in urine sediment by light microscopyOrdered By: Franco Benites on 12-04-2024 Epithelial cells.squamous LM Ql (Urine sed) 0 SEEN /hpf 0-5 [facility] Total carbon dioxide measure mentOrdered By: Franco Benites on 12-04-2024 CO2 [Moles/Vol] 35 mmol/L [facility] Total proteinOrdered By: Ulysses Benites on 12-04-2024 Protein [Mass/Vol] 7.3 g/dL 5.9-8.4 [facility] Troponin T.cardiac [Mass/vol ume] in Serum or Plasma by High sensitivity methodOrdered By: Franco Benites on 12-04-2024 Troponin T.cardiac High sensitivity method [Mass/Vol] 91 ng/L High <22 [facility] Comment on above: Critical Result(s) C alled at 1337: by: BRAYDEN SPRAGUE TO [facility]. Results read back by same. Troponin T.cardiac High sensitivity method [Mass/Vol] 35 ng/L High <22 [facility] Urinalysis, Completeon 12-04 RBC 0-5 SEEN Normal 0-5 [facility] Comment on above: Order Comment: COLLE CTOR TO SPECIFY Performed By: #### L 400.0001, M100.2200 #### [facility] [address] [place], [address] WBC 0-5 SEEN Normal 0-5 [facility] Comment on above: Order Comment: CANDE CTOR TO SPECIFY Performed By: #### L 400.0001, M100.2200 #### [facility] [address] [place], [address] BACTERIA 0 SEEN Normal None Seen [facility] Comment on above: Order Comment: CANDE CTOR TO SPECIFY Performed By: #### L 400.0001, M100.2200 #### [facility] [address] [place], [address] EPI,SQUAMOUS 0 SEEN Normal 0-5 [facility] Comment on above: Order Comment: CANDE CTOR TO SPECIFY Performed By: #### L 400.0001, M100.2200 #### [facility] [address] [place], [address] Mucus Ql (Urine sed) 0 SEEN Normal [facility] Comment on above: Order Comment: CANDE CTOR TO SPECIFY Performed By: #### L 400.0001, M100.2200 #### [facility] [address] [place], [address] Urine clarityOrdered By: Ulysses Benites on 12-04-2024 Clarity (U) Clear Clear [facility] Urine color determinationOrd ered By: Franco Benites on 12-04-2024 Color (U) Yellow Yellow [facility] Urine cultureOrdered By: Ulysses Benites on 12-04-2024 Bacteria identified Cx Nom (U) Acinetobacter baumannii Abnormal [facility] Urine glucose detectionOrder ed By: Franco Benites on 12-04-2024 Glucose Ql (U) Normal mg/dl Normal [facility] Urine leukocyte esterase det ection by dipstickOrdered By: Franco Benites on 12-04-2024 Leukocyte esterase Test strip Ql (U) 25 /ul High Negative [facility] Urine pHOrdered By: Franco Drummond on 12-04-2024 pH (U) 5.0 [pH] 5.0 - 8.0 [facility] Urine sediment bacteria coun t by microscopy (number/high power field)Ordered By: Franco Benites on 12-04-2024 Bacteria LM.HPF (Urine sed) [#/Area] 0 /[HPF] None Seen [facility] Urine specific gravity measu rementOrdered By: [facility] Specific gravity (U) [Rel density] 1.020 1.002-1.030 [facility] Urine urobilinogen measureme ntOrdered By: [facility] on 12-04-2024 Urobilinogen Ql (U) Normal mg/dl Normal [facility] White blood cell (WBC) count Or[facility]: [facility] on 12-04-2024 WBC (Bld) [#/Vol] 11.9 10*3/uL High 4.4-11.0 [facility] White blood cell countOrdere d By: Franco Benites on 12-04-2024 White blood cell count 0-5 SEEN /hpf 0-5 [facility] Culture, Blood (WB)on 2024 CUB Blood cultures x2, from two different sites No growth in 5 days. Normal [facility] Comment on above: Performed By: #### L 501.4021 #### [facility] [address] [place], [address] CUB Blood cultures x2, from two different sites No growth in 5 days. Normal [facility] Comment on above: Performed By: #### L 100.0100, L500.2500 #### [facility] [address] [place], [address] Basic Metabolic Profile (BMP )on 08-01-2024 BUN/CRE 12.0 RATIO Normal 10-20 [facility] Comment on above: Performed By: #### L 100.0100, L500.2500 #### [facility] [address] [place], [address] CA,Total 9.8 mg/dL Normal 8.5-10.1 [facility] Comment on above: Performed By: #### L 100.0100, L500.2500 #### [facility] [address] [place], [address] Chloride [Moles/Vol] 102 mmol/L Normal 98-107 [facility] Comment on above: Performed By: #### L 100.0100, L500.2500 #### [facility] [address] [place], [address] CO2 [Moles/Vol] 29.0 mmol/L Normal 21.0-32.0 [facility] Comment on above: Performed By: #### L 100.0100, L500.2500 #### [facility] [address] [place], [address] Creatinine [Mass/Vol] 0.92 mg/dL Normal 0.70-1.30 [facility] Comment on above: Result Comment: The validity of the calculated GFR GFRAA in patients over 70 years has not been determined. Clinical correlation is essential. Performed By: #### L 100.0100, L500.2500 #### [facility] [address] [place], [address] ECRCL 105.89 ml/min Normal [facility] Comment on above: Performed By: #### L 100.0100, L500.2500 #### [facility] [address] [place], [address] EST GFR - AA 111 mL/min Normal >60 [facility] Comment on above: Result Comment: Afri can Ugandan GFR Calc Performed By: #### L 100.0100, L500.2500 #### [facility] [address] [place], [address] GAP 5 Normal 5-15 [facility] Comment on above: Performed By: #### L 100.0100, L500.2500 #### [facility] [address] [place], [address] GFR/1.73 sq M.predicted among non-blacks MDRD (S/P/Bld) [Vol rate/Area] 91 mL/min/{1.73_m2} Normal >60 [facility] Comment on above: Result Comment: Non- GFR Calc Performed By: #### L 100.0100, L500.2500 #### [facility] [address] [place] [place], [address] Glucose [Mass/Vol] 126 mg/dL High 74-106 [facility] Comment on above: Result Comment: Fast ing Glucose result greater than or equal to 126 mg/dL suggests DIABETES MELLITUS per A.D.A. criteria. Performed By: #### L 100.0100, L500.2500 #### [facility] [address] [place] [place], [address] Potassium [Moles/Vol] 4.3 mmol/L Normal 3.5-5.1 [facility] Comment on above: Performed By: #### L 100.0100, L500.2500 #### [facility] [address] [place] [place], [address] Sodium [Moles/Vol] 136 mmol/L Normal 136-145 [facility] Comment on above: Performed By: #### L 100.0100, L500.2500 #### [facility] [address] [place] [place], [address] Urea nitrogen [Mass/Vol] 11 mg/dL Normal 7-18 [facility] Comment on above: Performed By: #### L 100.0100, L500.2500 #### [facility] [address] [place], [address] Bedside Glucoseon 08-01-2024 FINGERSTICK GLU 173 mg/dL High 74-106 [facility] Comment on above: Result Comment: JEFFREY BOWIE OF PATIENT CARE PER NURSING PROTOCOL Performed By: #### L 100.0100, L500.2500 #### [facility] [address] [place], [address] FINGERSTICK GLU 156 mg/dL High 74-106 [facility] Comment on above: Result Comment: JEFFREY GEMENT OF PATIENT CARE PER NURSING PROTOCOL Performed By: #### L 100.0100, L500.2500 #### [facility] [address] [place], [address] FINGERSTICK GLU 125 mg/dL High 74-106 [facility] Comment on above: Result Comment: JEFFREY GEMENT OF PATIENT CARE PER NURSING PROTOCOL Performed By: #### L 100.0100, L500.2500 #### [facility] [address] [place], [address] CBC W/Diff, Automatedon 02-0 4-2024 Absolute Lymph 0.61 X10 3/uL Low 0.83-4.51 [facility] Comment on above: Performed By: #### L 100.0100, L500.2500 #### [facility] [address] [place], [address] Absolute Neut 3.9 X10 3/uL Normal 2.0-7.7 [facility] Comment on above: Performed By: #### L 100.0100, L500.2500 #### [facility] [address] [place], [address] Basophils/100 WBC (Bld) 0.2 % Normal 0-1 [facility] Comment on above: Performed By: #### L 100.0100, L500.2500 #### [facility] [address] [place], [address] Eosinophils/100 WBC (Bld) 0.0 % Normal 0-5 [facility] Comment on above: Performed By: #### L 100.0100, L500.2500 #### [facility] [address] [place], [address] Erythrocyte distribution width (RBC) [Ratio] 14.8 % High 11.6-14.6 [facility] Comment on above: Performed By: #### L 100.0100, L500.2500 #### [facility] [address] [place], [address] Hematocrit (Bld) [Volume fraction] 40.5 % Normal 40-54 [facility] Comment on above: Performed By: #### L 100.0100, L500.2500 #### [facility] [address] [place], [address] Hemoglobin (Bld) [Mass/Vol] 12.5 g/dL Low 13.0-16.5 [facility] Comment on above: Performed By: #### L 100.0100, L500.2500 #### [facility] [address] [place], [address] IG% 0.200 Normal 0.0-0.9 [facility] Comment on above: Result Comment: IG% - Immature Granulocytes (promyelocytes, myelocytes and metamyelocytes) > 1% indicates that a LEFT SHIFT is Present. Performed By: #### L 100.0100, L500.2500 #### [facility] [address] [place], [address] Lymphocytes/100 WBC (Bld) 12.1 % Low 19-41 [facility] Comment on above: Performed By: #### L 100.0100, L500.2500 #### [facility] [address] [place], [address] MCH (RBC) [Entitic mass] 26.5 pg Low 27.0-32.0 [facility] Comment on above: Performed By: #### L 100.0100, L500.2500 #### [facility] [address] [place], [address] MCHC (RBC) [Mass/Vol] 30.9 g/dL Low 32-36 [facility] Comment on above: Performed By: #### L 100.0100, L500.2500 #### [facility] [address] [place], [address] MCV (RBC) [Entitic vol] 86.0 fL Normal 80-94 [facility] Comment on above: Performed By: #### L 100.0100, L500.2500 #### [facility] [address] [place], [address] Monocytes/100 WBC (Bld) 9.7 % Normal 0-10 [facility] Comment on above: Performed By: #### L 100.0100, L500.2500 #### [facility] [address] [place], [address] Neutrophils/100 WBC (Bld) 77.8 % High 47-70 [facility] Comment on above: Performed By: #### L 100.0100, L500.2500 #### [facility] [address] [place], [address] Nucleated RBC (Bld) [#/Vol] 0 10*3/uL Normal 0-5 [facility] Comment on above: Performed By: #### L 100.0100, L500.2500 #### [facility] [address] [place], [address] Platelet mean volume (Bld) [Entitic vol] 9.3 fL Normal 6.2-12.0 [facility] Comment on above: Performed By: #### L 100.0100, L500.2500 #### [facility] [address] [place], [address] Platelets (Bld) [#/Vol] 206 10*3/uL Normal 150-450 [facility] Comment on above: Performed By: #### L 100.0100, L500.2500 #### [facility] [address] [place], [address] RBC (Bld) [#/Vol] 4.71 10*6/uL Normal 4.6-6.2 [facility] Comment on above: Performed By: #### L 100.0100, L500.2500 #### [facility] [address] [place], [address] RDW SD 46.8 fl High 35.1-43.9 [facility] Comment on above: Performed By: #### L 100.0100, L500.2500 #### [facility] [address] [place], [address] WBC (Bld) [#/Vol] 5.0 10*3/uL Normal 4.4-11.0 [facility] Comment on above: Performed By: #### L 100.0100, L500.2500 #### [facility] [address] [place], [address] 12 Lead EKGon 07-31-[address] [facility] [address] [place] [address] 12 Lead EKG 07/31/24 1233 MR#: [id number] Acct: [id number] Name: RIGO GARCIA Rep #: [id number] : 1970 54 From: Salvador Rodriguez MD Attending Dr: Dr. Michelle Angeles MD Status: AD M IN Ordering Dr: Keith Garcia MD Date: 07/31/24 Location: [facility] Sex: M UTD Admitted: 07/31/24 Test Reason : SOB Blood Pressure : */* mmHG Vent. Rate : 95 BPM Atrial Rate : 95 BPM P-R Int : 156 ms QRS Dur : 78 ms QT Int : 330 ms P-R-T Axes : 45 74 19 degrees QTcB Int : 414 ms Normal sinus rhythm Normal ECG Confirmed by SANDY CANO, SALVADOR ([id number]), mapping editor MARY BALTAZAR ([id number]) on 08/01/2024 8:48:24 AM Referred By: Maricruz Villareal Confirmed By: SALVADOR RODRIGUEZ MD 08/01/24 0848 Date Salvador Rordiguez MD CC: Dr. Michelle Angeles MD; Dr. Maricruz Villareal MD; Dr. Mame Bright MD; Dr. Keith Garcia MD Signed Normal [facility] Bedside Glucoseon 07-31-2024 FINGERSTICK GLU 116 mg/dL High 74-106 [facility] Comment on above: Result Comment: JEFFREY SHAHENT OF PATIENT CARE PER NURSING PROTOCOL Performed By: #### L 501.080 ####[facility] [address] [place], [address] Blood Gases by CPSon 025 Base excess Calc (Bld) [Moles/Vol] 6 mmol/L High -2 to +2 [facility] Comment on above: Performed By: #### L 100.0100, L500.2500 #### [facility] [address] [place], [address] Blood Gas Type ART Normal [facility] Comment on above: Performed By: #### L 100.0100, L500.2500 #### [facility] [address] [place], [address] CO2 [Moles/Vol] 32 mmol/L Normal [facility] Comment on above: Performed By: #### L 100.0100, L500.2500 #### [facility] [address] [place], [address] FI02 4.0 [facility] Comment on above: Performed By: #### L 100.0100, L500.2500 #### [facility] [address] [place], [address] HCO3 (Bld) [Moles/Vol] 30.6 mmol/L High 22-26 [facility] Comment on above: Performed By: #### L 100.0100, L500.2500 #### [facility] [address] [place], [address] Mode Not entered Normal [facility] Comment on above: Performed By: #### L 100.0100, L500.2500 #### [facility] [address] [place], [address] O2 Delivery Dev Not entered Normal [facility] Comment on above: Performed By: #### L 100.0100, L500.2500 #### [facility] [address] [place], [address] pCO2 50.8 mmHg High 35-45 [facility] Comment on above: Performed By: #### L 100.0100, L500.2500 #### [facility] [address] [place], [address] pH (Bld) 7.39 [pH] Normal 7.35-7.45 [facility] Comment on above: Performed By: #### L 100.0100, L500.2500 #### [facility] [address] [place], [address] PO2 60 mmHG Low 75-100 [facility] Comment on above: Performed By: #### L 100.0100, L500.2500 #### [facility] [address] [place], [address] SITE Not entered Normal [facility] Comment on above: Performed By: #### L 100.0100, L500.2500 #### [facility] [address] [place], [address] SO2 90 Low 95-99 [facility] Comment on above: Performed By: #### L 100.0100, L500.2500 #### [facility] [address] [place], [address] CBC W/Diff, Automatedon 02-0 3-2024 Absolute Lymph 0.33 X10 3/uL Low 0.83-4.51 [facility] Comment on above: Performed By: #### L 100.0100, L500.2500 #### [facility] [address] [place], [address] Absolute Neut 5.7 X10 3/uL Normal 2.0-7.7 [facility] Comment on above: Performed By: #### L 100.0100, L500.2500 #### [facility] [address] [place], [address] Basophils/100 WBC (Bld) 0.3 % Normal 0-1 [facility] Comment on above: Performed By: #### L 100.0100, L500.2500 #### [facility] [address] [place], [address] Eosinophils/100 WBC (Bld) 0.3 % Normal 0-5 [facility] Comment on above: Performed By: #### L 100.0100, L500.2500 #### [facility] [address] [place], [address] Erythrocyte distribution width (RBC) [Ratio] 15.0 % High 11.6-14.6 [facility] Comment on above: Performed By: #### L 100.0100, L500.2500 #### [facility] [address] [place], [address] Hematocrit (Bld) [Volume fraction] 41.3 % Normal 40-54 [facility] Comment on above: Performed By: #### L 100.0100, L500.2500 #### [facility] [address] [place], [address] Hemoglobin (Bld) [Mass/Vol] 12.8 g/dL Low 13.0-16.5 [facility] Comment on above: Performed By: #### L 100.0100, L500.2500 #### [facility] [address] [place], [address] IG% 0.300 Normal 0.0-0.9 [facility] Comment on above: Result Comment: IG% - Immature Granulocytes (promyelocytes, myelocytes and metamyelocytes) > 1% indicates that a LEFT SHIFT is Present. Performed By: #### L 100.0100, L500.2500 #### [facility] [address] [place], [address] Lymphocytes/100 WBC (Bld) 4.8 % Low 19-41 [facility] Comment on above: Performed By: #### L 100.0100, L500.2500 #### [facility] [address] [place], [address] MCH (RBC) [Entitic mass] 26.9 pg Low 27.0-32.0 [facility] Comment on above: Performed By: #### L 100.0100, L500.2500 #### [facility] [address] [place], [address] MCHC (RBC) [Mass/Vol] 31.0 g/dL Low 32-36 [facility] Comment on above: Performed By: #### L 100.0100, L500.2500 #### [facility] [address] [place], [address] MCV (RBC) [Entitic vol] 86.8 fL Normal 80-94 [facility] Comment on above: Performed By: #### L 100.0100, L500.2500 #### [facility] [address] [place], [address] Monocytes/100 WBC (Bld) 10.8 % High 0-10 [facility] Comment on above: Performed By: #### L 100.0100, L500.2500 #### [facility] [address] [place], [address] Neutrophils/100 WBC (Bld) 83.5 % High 47-70 [facility] Comment on above: Performed By: #### L 100.0100, L500.2500 #### [facility] [address] [place], [address] Nucleated RBC (Bld) [#/Vol] 0 10*3/uL Normal 0-5 [facility] Comment on above: Performed By: #### L 100.0100, L500.2500 #### [facility] [address] [place], [address] Platelet mean volume (Bld) [Entitic vol] 9.8 fL Normal 6.2-12.0 [facility] Comment on above: Performed By: #### L 100.0100, L500.2500 #### [facility] [address] [place], [address] Platelets (Bld) [#/Vol] 204 10*3/uL Normal 150-450 [facility] Comment on above: Performed By: #### L 100.0100, L500.2500 #### [facility] [address] [place], [address] RBC (Bld) [#/Vol] 4.76 10*6/uL Normal 4.6-6.2 [facility] Comment on above: Performed By: #### L 100.0100, L500.2500 #### [facility] [address] [place], [address] RDW SD 47.6 fl High 35.1-43.9 [facility] Comment on above: Performed By: #### L 100.0100, L500.2500 #### [facility] [address] [place], [address] WBC (Bld) [#/Vol] 6.8 10*3/uL Normal 4.4-11.0 [facility] Comment on above: Performed By: #### L 100.0100, L500.2500 #### [facility] [address] [place], [place], [address] Chest 1 View (Portable)on Chest 1 View (Portable) [facility] Imaging Services [address] [place], [place] [address] Chest 1 View (Portable) MR#: [id number] Acct: [id number] Name: RIGO GARCIA Rep #: [id number] : 1970 M 54 From: Yovani Aguirre MD PCP: Dr. Mame Bright MD Status: REG ER Study: Chest 1 View (Portable) Date of Exam: 07/31/24 Exam# [id number] Ordering Dr: Keith Garcia MD EXAM: XR Chest, 1 View CLINICAL INDICATION: TECHNIQUE: Frontal view of the chest. COMPARISON: No relevant prior studies available. FINDINGS: LUNGS AND PLEURAL SPACES: Unremarkable. No consolidation. No pneumothorax. HEART: Unremarkable. No cardiomegaly. MEDIASTINUM: Unremarkable. Normal mediastinal contour. BONES/JOINTS: Unremarkable. No acute fracture. RAD/Chest 1 View (Portable) IMPRESSION: No acute cardiopulmonary process. Reading [facility] CC: Dr. Mame Bright MD; Dr. Keith Garcia MD Interviewing Clerk: Signed Normal [facility] Comprehensive Metabolic Prof ilon 07-31-2024 Albumin [Mass/Vol] 3.5 g/dL Normal 3.2-5.0 [facility] Comment on above: Performed By: #### L 501.4021 #### [facility] [address] [place], [place], [address] Albumin/Globulin [Mass ratio] 0.9 {ratio} Normal 0.9-2.4 [facility] Comment on above: Performed By: #### L 501.4021 #### [facility] [address] [place], [address] ALK P 125 U/L High 45-117 [facility] Comment on above: Performed By: #### L 501.4021 #### [facility] [address] [place], [address] ALT [Catalytic activity/Vol] 12 U/L Low 16-61 [facility] Comment on above: Performed By: #### L 501.4021 #### [facility] [address] [place], [address] AST [Catalytic activity/Vol] 11 U/L Low 15-37 [facility] Comment on above: Performed By: #### L 501.4021 #### [facility] [address] [place], [address] Bilirubin [Mass/Vol] 0.40 mg/dL Normal 0.20-1.00 [facility] Comment on above: Result Comment: For patients on eltrombopag therapy, use of Dimension [place] TBIL is not recommended. Performed By: #### L 501.4021 #### [facility] [address] [place], [address] BUN/CRE 10.8 RATIO Normal 10-20 [facility] Comment on above: Performed By: #### L 501.4021 #### [facility] [address] [place], [address] CA,Total 9.7 mg/dL Normal 8.5-10.1 [facility] Comment on above: Performed By: #### L 501.4021 #### [facility] [address] [place], [address] Chloride [Moles/Vol] 103 mmol/L Normal 98-107 [facility] Comment on above: Performed By: #### L 501.4021 #### [facility] [address] [place], [address] CO2 [Moles/Vol] 28.0 mmol/L Normal 21.0-32.0 [facility] Comment on above: Performed By: #### L 501.4021 #### [facility] [address] [place], [address] Creatinine [Mass/Vol] 1.30 mg/dL Normal 0.70-1.30 [facility] Comment on above: Result Comment: The validity of the calculated GFR GFRAA in patients over 70 years has not been determined. Clinical correlation is essential. Performed By: #### L 501.4021 #### [facility] [address] [place], [address] ECRCL 76.89 ml/min Normal [facility] Comment on above: Performed By: #### L 501.4021 #### [facility] [address] [place], [address] EST GFR - AA 74 mL/min Normal >60 [facility] Comment on above: Result Comment: Afri can [place] GFR Calc Performed By: #### L 501.4021 #### [facility] [address] [place], [address] GAP 7 Normal 5-15 [facility] Comment on above: Performed By: #### L 501.4021 #### [facility] [address] [place], [address] GFR/1.73 sq M.predicted among non-blacks MDRD (S/P/Bld) [Vol rate/Area] 61 mL/min/{1.73_m2} Normal >60 [facility] Comment on above: Result Comment: Non- GFR Calc Performed By: #### L 501.4021 #### [facility] [address] [place], [address] Globulin (S) [Mass/Vol] 3.7 g/dL Normal 2.2-4.2 [facility] Comment on above: Performed By: #### L 501.4021 #### [facility] [address] [place], [address] Glucose [Mass/Vol] 112 mg/dL High 74-106 [facility] Comment on above: Result Comment: Fast ing Glucose result from 100 to 125 mg/dL suggests IMPAIRED HOMEOSTASIS per A.D.A. criteria. Performed By: #### L 501.4021 #### [facility] [address] [place], [address] Potassium [Moles/Vol] 4.2 mmol/L Normal 3.5-5.1 [facility] Comment on above: Performed By: #### L 501.4021 #### [facility] [address] [place], [address] Sodium [Moles/Vol] 138 mmol/L Normal 136-145 [facility] Comment on above: Performed By: #### L 501.4021 #### [facility] [address] [place], [address] T PROT 7.2 g/dL Normal 6.4-8.2 [facility] Comment on above: Performed By: #### L 501.4021 #### [facility] [address] [place], [address] Urea nitrogen [Mass/Vol] 14 mg/dL Normal 7-18 [facility] Comment on above: Performed By: #### L 501.4021 #### [facility] [address] [place], [address] Emergency Department Summary on 07-31-2024 Emergency Department Summary [facility] Medical Records Department [address] [place] [address] Emergency Department Summary 07/31/24 MR#: [id number] Acct: [id number] Name: RIGO GARCIA Rep #: [id number] : 1970 54 From: Keith Garcia MD PCP: Dr. Mame Bright MD Status:REG ER Location: ED HPI History of Present Illness Chief Complaint: Nausea/Vomiting/Kristin rrhea Detail of Chief Complaint: Nausea, vomit diarrhea as well as shortness of breath cough and hypoxia Informant: patient and EMS Onset/Context/Christoph shrestha Onset: Yesterday (Per patient) Context: Sudden Onset Timing: Continuous Quality: Viral-like symptoms with respiratory and GI Location: Systemic viral Current Severity: Moderate Maximum Severity: Severe Worsened by: Nothing specific Relieved by: Nothing Associated Symptoms Associated Symptoms: Nonproductive cough and wheezing Narrative Narrative: Patient is a 54-year-old male. 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 He also had compartment syndrome requiring fasciotomy of his right upper extremity. Patient presents because of nonproductive cough, shortness of breath and hypoxia. He is present on 3 L by nasal cannula. There is no history of PE or DVT. He also has GI symptoms consistent with nausea, vomit diarrhea. Denies hematemesis, melena medic easier. He denies urologic symptoms. Prior similar symptoms: No Recent Illness/Hospitaliza tion: No PFSH PFS Home Medications ???Medication ???Instructions ???Recorded ???Last Taken ???Type acetaminophen 325 mg tablet 650 mg PO Q4H PRN fever or pain Unknown History (Aminofen) aripiprazole 15 mg tablet (Abilify) 15 mg PO DAILY SCHIZOPHRENIA Unknown History aspirin 81 mg tablet,delayed 81 mg PO DAILY HTN 07/31/24 Unknow n History release (Adult Low Dose Aspirin) atorvastatin 20 mg tablet 20 mg PO QHS HYPERLIPIDEMIA Unknown History buspirone 10 mg tablet 10 mg PO TID BIPOLAR 07/31/24 Unkn own History calcium carbonate ([employer] 300 mg PO DAILY PRN heartburn 09/19 Unknown History Heartburn Chew) cholecalciferol (vitamin D3) 1,250 1,250 mcg PO QWEEK SUPPLEMENT Unknown History mcg (50,000 unit) capsule gabapentin 100 mg capsule 200 mg PO TID NEUROPATHIC PAIN 09/19 Unknown History lorazepam 1 mg tablet (Ativan) 1 mg PO Q8H agitation 07/31/24 Unk nown History metformin 1,000 mg tablet 1,000 mg PO BID DM 07/31/24 Unknow n History sennosides 8.6 mg-docusate sodium 1 tab-cap PO DAILY CONSTIPATION 0 07/31/24 Unknown History 50 mg tablet (Colace 2-In-1) trazodone 50 mg tablet 50 mg PO BID BIPOLAR 07/31/24 Unkn own History vortioxetine 20 mg tablet 20 mg PO DAILY DEPRESSION 07/31/24 Unknown History (Trintellix) Allergy/AdvReac Type Severity Reaction Status Date / Time ibuprofen Allergy Rash Verified 07/31/24 11:57 Penicillins Allergy RASH Verified 07/31/24 11:57 Social History Smoking Status: Current every day smoker tobacco type: cigarettes ROS ROS ED Constitutional Constitutional ED: Reports chills, fever(s) and subjective; Denies sweats or weight loss Eyes Eyes: Denies blurry vision or change in vision ENT ENT ED: Reports rhinorrhea and sore throat; Denies ear pain Cardiovascular Cardiovascular: Reports racing heartbeat; Denies chest pain, orthopnea, palpitations or paroxysmal nocturnal dyspnea Respiratory/Chest Respiratory/Chest: Reports cough and dyspnea; Denies orthopnea, paroxysmal nocturnal dyspnea or sputum Gastrointestinal Gastrointestinal: Reports diarrhea, nausea and vomiting; Denies abdominal pain or melena Genitourinary Genitourinary ED: Denies dysuria, hematuria or urinary frequency Musculoskeletal Musculoskeletal: Reports myalgias; Denies arthralgias, back pain or neck pain Integumentary Denies rash Neurologic Neurologic: Denies headache(s), paresthesias or weakness Psychiatric Psychiatric: Denies anxiety or depression Endocrine Endocrinology: Denies cold intolerance or heat intolerance Hematologic/Lymphat ic Hematologic/Lymphat ic: Reports systems reviewed and no addt'l complaints, except as documented Allergic/Immunologi c Allergic/Immunologi c ED: Denies mouth swelling or tongue swelling EXAM Physical Exam Const Vital Signs: 07/31/24 11:50 07/31/24 11:52 07/31/24 12:09 Temperature 99.4 F H 99.4 F H Temperature Source Oral Oral Pulse Rate 103 H 95 Respiratory Rate 23 H 21 H Respiratory Pattern Blood Pressure 106/86 H 92/80 Blood Pressure Mean 92 84 Pulse Ox 3 95 96 Oxygen Delivery Method High Flow Nasal Cannula Oxygen Flow Rate (L/min) 3 07/31/24 12:42 07/31/24 14:11 07/31/24 15:16 Temperature 97.4 F L Temperature Source Oral Pulse (more content not included)... Normal [facility] H AND P Exam - Hospitaliston 07-31-2024 H&P Exam - Hospitalist [facility] Medical Records Department [address] [place] [address] H P Exam - Hospitalist 07/31/24 1705 MR#: [id number] Acct: [id number] Name: RIGO GARCIA Rep #: [id number] : 1970 54 From: Maricruz Villareal MD PCP: Dr. Mame Bright MD Status:ADM IN Location: [facility] [id number] HPI - General General Date of Admission: 07/31/24 Date of Service: 07/31/24 Chief Complaint: N/V/D HPI Narrative RIGO GARCIA, is a 54-year-old male history of CVA with right-sided deficits, compartment syndrome with right upper extremity fasciotomy, depression, diabetes who presented [facility] ED 07/31/2024 with nausea, vomiting, diarrhea as well as shortness of breath, cough, hypoxia. In the ED patient became hypoxic at 87% on room air and was placed on 2 L, initially was little bit tachypneic in the low 20s as well with blood pressure of 106/86 and heart rate of 103, afebrile. Lab workup revealed lactic acid of 3.0 but otherwise fairly benign. Given patient was hypoxic and has had difficulty tolerating p.o. given his nausea and diarrhea hospitalist contacted for admission. Patient evaluated bedside and reports he has had nausea, vomiting, diarrhea and shortness of breath and cough since yesterday, no abdominal pain and actually not having any more nausea or diarrhea since he has been in the ED but is coughing. No other new acute complaints. PFSH Home Medications ???Medication ???Instructions ???Recorded ???Last Taken ???Type acetaminophen 325 mg tablet 650 mg PO Q4H PRN fever or pain Unknown History (Aminofen) aripiprazole 15 mg tablet (Abilify) 15 mg PO DAILY SCHIZOPHRENIA Unknown History aspirin 81 mg tablet,delayed 81 mg PO DAILY HTN 07/31/24 Unknow n History release (Adult Low Dose Aspirin) atorvastatin 20 mg tablet 20 mg PO QHS HYPERLIPIDEMIA Unknown History buspirone 10 mg tablet 10 mg PO TID BIPOLAR 07/31/24 Unkn own History calcium carbonate ([employer] 300 mg PO DAILY PRN heartburn 09/19 Unknown History Heartburn Chew) cholecalciferol (vitamin D3) 1,250 1,250 mcg PO QWEEK SUPPLEMENT Unknown History mcg (50,000 unit) capsule gabapentin 100 mg capsule 200 mg PO TID NEUROPATHIC PAIN 09/19 Unknown History lorazepam 1 mg tablet (Ativan) 1 mg PO Q8H agitation 07/31/24 Unk nown History metformin 1,000 mg tablet 1,000 mg PO BID DM 07/31/24 Unknow n History sennosides 8.6 mg-docusate sodium 1 tab-cap PO DAILY CONSTIPATION 0 07/31/24 Unknown History 50 mg tablet (Colace 2-In-1) trazodone 50 mg tablet 50 mg PO BID BIPOLAR 07/31/24 Unkn own History vortioxetine 20 mg tablet 20 mg PO DAILY DEPRESSION 07/31/24 Unknown History (Trintellix) Allergy/AdvReac Type Severity Reaction Status Date / Time ibuprofen Allergy Rash Verified 07/31/24 11:57 Penicillins Allergy RASH Verified 07/31/24 11:57 Social History Smoking Status: Current every day smoker tobacco type: cigarettes ROS ROS Narrative General: Denies fever/chills HENT: Denies headache, denies stuffy nose, denies sore throat EYES: Denies changes in vision Resp: Does have cough that is nonproductive and shortness of breath Cardiac: Denies chest pain GI: Denies abdominal pain, had some nausea and vomiting and diarrhea but none since being in the ED : Denies changes in urination Extremity: Denies swelling MSK: Denies new weakness Neuro: Denies any new numbness/tingling Heme: Denies any bleeding or bruising Skin: Denies rashes Psychiatric: No complaints voiced Vital Signs Vital Signs Vital Signs: 07/31/24 11:50 07/31/24 11:52 07/31/24 12:09 Temperature 99.4 F H 99.4 F H Temperature Source Oral Oral Pulse Rate 103 H 95 Respiratory Rate 23 H 21 H Respiratory Pattern Blood Pressure 106/86 H 92/80 Blood Pressure Mean 92 84 Pulse Ox 3 95 96 Oxygen Delivery Method High Flow Nasal Cannula Oxygen Flow Rate (L/min) 3 07/31/24 12:42 07/31/24 14:11 07/31/24 15:16 Temperature 97.4 F L Temperature Source Oral Pulse Rate 95 87 Respiratory Rate 26 H 26 H Respiratory Pattern Tachypnea Blood Pressure 107/76 Blood Pressure Mean 86 Pulse Ox 96 94 Oxygen Delivery Method Room Air Oxygen Flow Rate (L/min) 07/31/24 16:14 Temperature Temperature Source Pulse Rate 82 Respiratory Rate 24 H Respiratory Pattern Blood Pressure 103/70 Blood Pressure Mean 81 Pulse Ox 97 Oxygen Delivery Method Room Air Oxygen Flow Rate (L/min) Weight Weight: 106.6 kg Body Mass Index (BMI) 35.7 Physical Exam Narrative General: Alert, oriented, no apparent distress HEENT: Atraumatic, normocephalic Eyes: Anicteric, normal conjunctiva, extraocula (more content not included)... Normal [facility] Lactic Acidon 07-31-2024 Lactate [Moles/Vol] 2.3 mmol/L Invalid Interpretation Code 0.4-1.9 [facility] Comment on above: Result Comment: Crit ical Result(s) Called at: 23:41:34 07/31/2024 by: AZEB NELSON. Results read back by Performed By: #### L 100.0100, L500.2500 #### [facility] [address] [place], [place], [id number] Lactate [Moles/Vol] 3.0 mmol/L Invalid Interpretation Code 0.4-1.9 [facility] Comment on above: Order Comment: Y Result Comment: Crit ical Result(s) Called at: 13:09:37 07/31/2024 by: LELE MORALES TO NELI. Results read back by tarah. Performed By: #### L 501.4021 #### [facility] [address] [place], [place], [address] Partial Thromboplast Timeon 07-31-2024 aPTT Coag (Bld) [Time] 27.0 s Normal 24.1-36.2 [facility] Comment on above: Performed By: #### L 501.4021 #### [facility] [address] [place] [place], [address] Prothrombin Time w/INRon INR Coag (PPP) [Relative time] 1.1 {INR} Normal [facility] Comment on above: Performed By: #### L 501.4021 #### [facility] [address] [place], [address] PT Coag (PPP) [Time] 14.2 s Normal 11.7-14.9 [facility] Comment on above: Performed By: #### L 501.4021 #### [facility] [address] [place], [address] Urinalysis, Completeon 07-31 WBC 0-5 SEEN Normal 0-5 [facility] Comment on above: Order Comment: COLLE CTOR TO SPECIFY Performed By: #### L 100.0100, L500.2500 #### [facility] [address] [place], [address] BACTERIA 0 SEEN Normal None Seen [facility] Comment on above: Order Comment: COLLE CTOR TO SPECIFY Performed By: #### L 100.0100, L500.2500 #### [facility] [address] [place], [address] EPI,SQUAMOUS 0 SEEN Normal 0-5 [facility] Comment on above: Order Comment: COLLE CTOR TO SPECIFY Performed By: #### L 100.0100, L500.2500 #### [facility] [address] [place], [address] Mucus Ql (Urine sed) 0 SEEN Normal [facility] Comment on above: Order Comment: COLLE CTOR TO SPECIFY Performed By: #### L 100.0100, L500.2500 #### [facility] [address] [place], [address] RBC 0 SEEN Normal 0-5 [facility] Comment on above: Order Comment: COLLE CTOR TO SPECIFY Performed By: #### L 100.0100, L500.2500 #### [facility] [address] [place], [address] Calcium.ionized [Mass/Vol]on 06-30-2022 Calcium Ionized 5.22 mg/dL Normal 4.50-5.30 [facility] Comment on above: Performed By: #### 1 9123-9 #### [facility] ([facility] [address] [place] [address] Calcium.ionized (Bld) [Mass/Vol] 5.22 mg/dL 4.50 - 5.30 mg/dL [facility] Interpretation and review of laboratory results Normal [facility] metabolic 2000 panelon 06-30-2022 Albumin [Mass/Vol] 3.6 g/dL 3.5 - 4.8 g/dL [facility] ALP [Catalytic activity/Vol] 104 U/L High [facility] ALT [Catalytic activity/Vol] 27 U/L [facility] Anion gap [Moles/Vol] 5 mmol/L Low 6 - 18 [facility] AST [Catalytic activity/Vol] 10 U/L Low [facility] Bilirubin [Mass/Vol] 0.4 mg/dL 0.3 - 1 .2 mg/dL [facility] Calcium [Mass/Vol] 9.2 mg/dL 8.9 - 10. 3 mg/dL [facility] Chloride [Moles/Vol] 100 mmol/L 98 - 10 7 mmol/L [facility] CO2 [Moles/Vol] 31 mmol/L 22 - 32 mmol/L [facility] Creatinine [Mass/Vol] 1.16 mg/dL 0.60 - 1.30 mg/dL [facility] GFR/1.73 sq M.predicted among non-blacks MDRD (S/P/Bld) [Vol rate/Area] 76 mL/min/{1.73_m2} - PINF [facility] Comment on above: Effective April 05, 2022, calculation based on the Chronic Kidney Disease Epidemiology Collaboration (CKD-EPI) equation refit without adjustment for race. Glucose [Mass/Vol] 303 mg/dL High 70 - 99 mg/dL [facility] Potassium [Moles/Vol] 4.1 mmol/L 3.6 - 5.1 mmol/L [facility] Protein [Mass/Vol] 6.2 g/dL 6.1 - 7.9 g/dL [facility] Sodium [Moles/Vol] 136 mmol/L 136 - 145 mmol/L [facility] Urea nitrogen [Mass/Vol] 20 mg/dL 8 - 20 mg/dL [facility] Urea nitrogen/Creatinine [Mass ratio] 17.2 mg/mg 12.0 - 20.0 [facility] Hemogram and platelets WO di fferential panel (Bld)on 06-30-2022 Erythrocyte distribution width (RBC) [Ratio] 13.4 % Normal 11.0-14.8 [facility] Comment on above: Performed By: #### 1 9123-9 #### [facility] [address] [place] [address] Hematocrit (Bld) [Volume fraction] 37.4 % Low 39.0-49.0 [facility] Comment on above: Performed By: #### 1 9123-9 #### [facility] [address] [place] [address] Hemoglobin (Bld) [Mass/Vol] 11.7 g/dL Low 13.5-17.5 [facility] Comment on above: Performed By: #### 1 9123-9 #### [facility] [address] [place] [address] MCH 27.8 pcg Normal 27.0-34.0 [facility] Comment on above: Performed By: #### 1 9123-9 #### [facility] [address] [place] [address] MCHC (RBC) [Mass/Vol] 31.3 g/dL Normal 30.8-35.3 [facility] Comment on above: Performed By: #### 1 9123-9 #### [facility] [address] [place] [address] MCV (RBC) [Entitic vol] 88.8 fL Normal 80.0-97.0 [facility] Comment on above: Performed By: #### 1 9123-9 #### [facility] [address] [place] [address] Platelet mean volume (Bld) [Entitic vol] 10.0 fL Normal 6.2-12.1 [facility] Comment on above: Performed By: #### 1 9123-9 #### [facility] [address] [place] [address] Platelets (Bld) [#/Vol] 170 10*3/uL Normal 142-424 [facility] Comment on above: Performed By: #### 1 9123-9 #### [facility] [address] [place] [address] RBC (Bld) [#/Vol] 4.21 10*6/uL Low 4.30-5.70 [facility] Comment on above: Performed By: #### 1 9123-9 #### [facility] [address] [place] [address] WBC (Bld) [#/Vol] 8.1 10*3/uL Normal 4.6-10.2 [facility] Comment on above: Performed By: #### 1 9123-9 #### [facility] [address] [place] [address] Erythrocyte distribution width (RBC) [Ratio] 13.4 % 11.0 - 14.8 % [facility] Hematocrit (Bld) [Volume fraction] 37.4 % Low 39.0 - 49.0 % [facility] Hemoglobin (Bld) [Mass/Vol] 11.7 g/dL Low 13.5 - 17.5 g/dL [facility] Interpretation and review of laboratory results Abnormal [facility] MCH (RBC) [Entitic mass] 27.8 pg [facility] MCHC (RBC) [Mass/Vol] 31.3 g/dL 30.8 - 35.3 g/dL [facility] MCV (RBC) [Entitic vol] 88.8 fL T [facility] Platelet mean volume (Bld) [Entitic vol] 10.0 fL [facility] Platelets (Bld) [#/Vol] 170 10*3/uL [facility] RBC (Bld) [#/Vol] 4.21 10*6/uL Low [facility] WBC (Bld) [#/Vol] 8.1 10*3/uL [facility] Magnesiumon 06-30-2022 Magnesium [Mass/Vol] 1.5 mg/dL Low 1.8 - 2 .5 mg/dL [facility] Magnesium [Mass/Vol]on 06-30 Albumin [Mass/Vol] 3.6 g/dL Normal 3.5-4.8 [facility] Comment on above: Performed By: #### 1 9123-9 #### [facility] [address] [place] [address] ALP [Catalytic activity/Vol] 104 U/L High 32-91 [facility] Comment on above: Performed By: #### 1 9123-9 #### [facility] [address] [place] [address] ALT [Catalytic activity/Vol] 27 U/L Normal 7-52 [facility] Comment on above: Performed By: #### 1 9123-9 #### [facility] [address] [place] [address] Anion gap [Moles/Vol] 5 mmol/L Low 6-18 Nicole nt [facility] Comment on above: Performed By: #### 1 9123-9 #### [facility] [address] [place] [address] AST [Catalytic activity/Vol] 10 U/L Low 15-41 [facility] Comment on above: Performed By: #### 1 9123-9 #### [facility] [address] [place] [address] Bilirubin [Mass/Vol] 0.4 mg/dL Normal 0.3-1.2 Moun t [facility] Comment on above: Performed By: #### 1 9123-9 #### [facility] [address] [place] [address] Calcium [Mass/Vol] 9.2 mg/dL Normal 8.9-10.3 [facility] Comment on above: Performed By: #### 1 9123-9 #### [facility] [address] [place] [address] Chloride [Moles/Vol] 100 mmol/L Normal 98-107 Moun [facility] Comment on above: Performed By: #### 1 9123-9 #### [facility] [address] [place] [address] CO2 [Moles/Vol] 31 mmol/L Normal 22-32 [facility] Comment on above: Performed By: #### 1 9123-9 #### [facility] [address] [place] [address] Creatinine [Mass/Vol] 1.16 mg/dL Normal 0.60-1.30 Nicole [facility] Comment on above: Performed By: #### 1 9123-9 #### [facility] [address] [place] [address] GFR/1.73 sq M.predicted among non-blacks MDRD (S/P/Bld) [Vol rate/Area] 76 mL/min/{1.73_m2} Normal >=60 [facility] Comment on above: Result Comment: Effe ctive April 05, 2022, calculation based on the?Chronic Kidney Disease Epidemiology Collaboration (CKD-EPI) equation refit?without adjustment for race. Performed By: #### 1 9123-9 #### [facility] [address] [place] [address] Glucose [Mass/Vol] 303 mg/dL High 70-99 [facility] Comment on above: Performed By: #### 1 9123-9 #### [facility] [address] [place] [address] Potassium [Moles/Vol] 4.1 mmol/L Normal 3.6-5.1 Nicole [facility] Comment on above: Performed By: #### 1 9123-9 #### [facility] [address] [place] [address] Protein [Mass/Vol] 6.2 g/dL Normal 6.1-7.9 [facility] Comment on above: Performed By: #### 1 9123-9 #### [facility] [address] [place] [address] Sodium [Moles/Vol] 136 mmol/L Normal 136-145 [facility] Comment on above: Performed By: #### 1 9123-9 #### [facility] [address] [place] [address] Urea nitrogen [Mass/Vol] 20 mg/dL Normal 8-20 [facility] Comment on above: Performed By: #### 1 9123-9 #### [facility] [address] [place] [address] Urea nitrogen/Creatinine [Mass ratio] 17.2 mg/mg Normal 12.0-20.0 [facility] Comment on above: Performed By: #### 1 9123-9 #### [facility] [address] [place] [address] No Panel Informationon 06-30 Interpretation and review of laboratory results Abnormal [facility] Testosterone Free [Mass/Vol] on 06-18-2022 [facility] Testosterone, freeon Testosterone Free [Mass/Vol] 2.6 pg/mL [facility] Comment on above: No reference range a vailable for males under 20 years or over 50 years. Test performed at [facility], [facility] [place] [id number] Aleyda Arriola MD, PhD - [employer] 25-hydroxyvitamin D3 [Mass/V ol]on 06-16-2022 Interpretation and review of laboratory results Abnormal [facility] Cobalamin (Vitamin B12) [Mas s/Vol]on 06-16-2022 Interpretation and review of laboratory results Normal [facility] Folateon 06-16-2022 Folate [Mass/Vol] 7.8 ng/mL 4.0 - PINF ng/ml [facility] Folate [Mass/Vol]on 06-16-20 Interpretation and review of laboratory results Normal [facility] Follicle stimulating hormone on 06-16-2022 Follitropin Qn 11.6 m[IU]/mL mIU/mL [facility] Comment on above: ADULT MALES: 1.3 TO 19.3 MIU/ML ADULT FEMALES: FOLLICULLAR: 3.9 TO 8.8 MIU/ML MIDCYCLE PEAK: 4.5 TO 22.5 MIU/ML LUTEAL: 1.8 TO 5.1 MIU/ML POSTMENOPAUSAL: 16.7 TO 114.0 MIU/ML Follitropin Qnon 06-16-2022 [facility] Lavender tubeon 06-16-2022 Specimen source Nom (Unsp spec) Hold for add-ons. [facility] Comment on above: Auto resulted. [facility] Tiffin [Moles/Vol]on 2021 Tiffin Level 0.50 mEq/L Normal 0.50-1.50 [facility] Comment on above: Performed By: #### 1 4334-7 #### [facility] [address] [place] [address] Vitamin B-12 276 pcg/mL Normal 180-914 [facility] Comment on above: Performed By: #### 1 4334-7 #### [facility] [address] [place] [address] Interpretation and review of laboratory results Normal [facility] Interpretation and review of laboratory results Normal [facility] Tiffin levelon 06-16-2022 Tiffin [Moles/Vol] 0.50 mmol/L [facility] Tiffin [Moles/Vol] 0.50 mmol/L [facility] Luteinizing hormoneon 2021 Lutropin Qn 6.7 m[IU]/mL mIU/mL [facility] Comment on above: ADULT MALES: 1.2 TO 8.6 MIU/ML ADULT FEMALES: FOLLICULLAR: 2.1 TO 10.9 MIU/ML MIDCYCLE PEAK: 19.2 TO 103.0 MIU/ML LUTEAL: 1.2 TO 12.9 MIU/ML POSTMENOPAUSAL: 16.7 TO 114.0 MIU/ML Lutropin Qnon 06-16-2022 [facility] Testosterone Free [Mass/Vol] on 06-16-2022 Testosterone Free 2.6 pg/mL [facility] Comment on above: Result Comment: No r eference range available for males under 20 years or over 50 years. Test performed at [facility], [address] [place] [address] Aleyda Arriola MD, PhD - [employer] Performed By: #### 1 9123-9 #### [facility] [address] [place] [address] Testosterone [Mass/Vol]on Interpretation and review of laboratory results Abnormal [facility] Testosterone 1.17 ng/mL Low 1.68 - 7.46 ng/mL [facility] Luteinizing Hormone 6.7 mIU/mL Normal [facility] Comment on above: Result Comment: ADUL T MALES: 1.2 TO 8.6 MIU/ML ADULT FEMALES: FOLLICULLAR: 2.1 TO 10.9 MIU/ML MIDCYCLE PEAK: 19.2 TO 103.0 MIU/ML LUTEAL: 1.2 TO 12.9 MIU/ML POSTMENOPAUSAL: 16.7 TO 114.0 MIU/ML Performed By: #### 2 986-8 #### [facility] ([facility]) [facility] [address] [place] [address] Vitamin B12on 06-16-2022 Cobalamin (Vitamin B12) [Mass/Vol] 276 pg/mL [facility] Vitamin D 25 hydroxyon 06-16 25-hydroxyvitamin D3 [Mass/Vol] 15.0 ng/mL Low 30.0 - 100.0 ng/mL [facility] Comment on above: Deficient <20 ng/mL Insufficient 20 to 30 ng/mL Sufficient 30-100 ng/mL Toxic >100 ng/mL Drugs identified Screen Nom (U)on 06-10-2022 Amphetamine Screen, Ur Not detected Normal Not Detecte d [facility] Comment on above: Order Comment: The f ollowing detection limits are used for the urine drugs of abuse: Amphetamine 1000 ng/mL Barbiturate 200 ng/mL Benzodiazepine 200 ng/mL Cannabinoids 50 ng/mL Cocaine 300 ng/mL Methadone 300 ng/mL Opiates 300 ng/mL Oxycodone 100 ng/mL Testing is for screening purposes only and should not be used in non-medical determinations. Confirmatory testing is available on request. Performed By: #### 1 2286-1 #### [facility]) [facility] [address] [place] [address] Barbiturate Screen, Ur Not detected Normal Not Detecte d [facility] Comment on above: Order Comment: The f ollowing detection limits are used for the urine drugs of abuse: Amphetamine 1000 ng/mL Barbiturate 200 ng/mL Benzodiazepine 200 ng/mL Cannabinoids 50 ng/mL Cocaine 300 ng/mL Methadone 300 ng/mL Opiates 300 ng/mL Oxycodone 100 ng/mL Testing is for screening purposes only and should not be used in non-medical determinations. Confirmatory testing is available on request. Performed By: #### 1 2286-1 #### [facility] [address] [place] [address] Benzodiazepine Screen, Ur Not detected Normal Not Detected [facility] Comment on above: Order Comment: The f ollowing detection limits are used for the urine drugs of abuse: Amphetamine 1000 ng/mL Barbiturate 200 ng/mL Benzodiazepine 200 ng/mL Cannabinoids 50 ng/mL Cocaine 300 ng/mL Methadone 300 ng/mL Opiates 300 ng/mL Oxycodone 100 ng/mL Testing is for screening purposes only and should not be used in non-medical determinations. Confirmatory testing is available on request. Performed By: #### 1 2286-1 #### [facility] [address] [place] [address] Cannabinoid (THC) Screen, Ur Not detected Normal Not Detected [facility] Comment on above: Order Comment: The f ollowing detection limits are used for the urine drugs of abuse: Amphetamine 1000 ng/mL Barbiturate 200 ng/mL Benzodiazepine 200 ng/mL Cannabinoids 50 ng/mL Cocaine 300 ng/mL Methadone 300 ng/mL Opiates 300 ng/mL Oxycodone 100 ng/mL Testing is for screening purposes only and should not be used in non-medical determinations. Confirmatory testing is available on request. Performed By: #### 1 2286-1 #### [facility] [address] [place] [address] Cocaine Screen, Ur Not detected Normal Not Detected [facility] Comment on above: Order Comment: The f ollowing detection limits are used for the urine drugs of abuse: Amphetamine 1000 ng/mL Barbiturate 200 ng/mL Benzodiazepine 200 ng/mL Cannabinoids 50 ng/mL Cocaine 300 ng/mL Methadone 300 ng/mL Opiates 300 ng/mL Oxycodone 100 ng/mL Testing is for screening purposes only and should not be used in non-medical determinations. Confirmatory testing is available on request. Performed By: #### 1 2286-1 #### [facility] [address] [place] [address] Methadone Screen, Urine Not detected Normal Not Detect ed [facility] Comment on above: Order Comment: The f ollowing detection limits are used for the urine drugs of abuse: Amphetamine 1000 ng/mL Barbiturate 200 ng/mL Benzodiazepine 200 ng/mL Cannabinoids 50 ng/mL Cocaine 300 ng/mL Methadone 300 ng/mL Opiates 300 ng/mL Oxycodone 100 ng/mL Testing is for screening purposes only and should not be used in non-medical determinations. Confirmatory testing is available on request. Performed By: #### 1 2286-1 #### [facility] [address] [place] [address] Opiate Screen, Ur Not detected Normal Not Detected Nicole [facility] Comment on above: Order Comment: The f ollowing detection limits are used for the urine drugs of abuse: Amphetamine 1000 ng/mL Barbiturate 200 ng/mL Benzodiazepine 200 ng/mL Cannabinoids 50 ng/mL Cocaine 300 ng/mL Methadone 300 ng/mL Opiates 300 ng/mL Oxycodone 100 ng/mL Testing is for screening purposes only and should not be used in non-medical determinations. Confirmatory testing is available on request. Performed By: #### 1 2286-1 #### [facility] [address] [place] [address] Oxycodone Screen, Ur Not detected Normal Not Detected [facility] Comment on above: Order Comment: The f ollowing detection limits are used for the urine drugs of abuse: Amphetamine 1000 ng/mL Barbiturate 200 ng/mL Benzodiazepine 200 ng/mL Cannabinoids 50 ng/mL Cocaine 300 ng/mL Methadone 300 ng/mL Opiates 300 ng/mL Oxycodone 100 ng/mL Testing is for screening purposes only and should not be used in non-medical determinations. Confirmatory testing is available on request. Performed By: #### 1 2286-1 #### [facility] [address] [place] [address] Amphetamines Ql (U) Not detected Not Detected [facility] [employer] Barbiturates Screen Ql (U) Not detected Not Detected [facility] Benzodiazepines Ql (U) Not detected Not Detecte d [facility] Cannabinoids Screen Ql (U) Not detected Not Detected [facility] Cocaine Ql (U) Not detected Not Detected [facility] Interpretation and review of laboratory results Normal [facility] Methadone Screen Ql (U) Not detected Not Detect ed [facility] Opiates Screen Ql (U) Not detected Not Detected [facility] oxyCODONE Ql (U) Not detected Not Detected Sarah [facility] The following detection limits are used for the urine drugs of abuse: Amphetamine 1000 ng/mL Barbiturate 200 ng/mL Benzodiazepine 200 ng/mL Cannabinoids 50 ng/mL Cocaine 300 ng/mL Methadone 300 ng/mL Opiates 300 ng/mL Oxycodone 100 ng/mL Testing is for screening purposes only and should not be used in non-medical determinations. Confirmatory testing is available on request. bead Button Glucose Auto test strip (Bld ) [Mass/Vol]on 06-10-2022 Glucose [Mass/Vol] 55 mg/dL Low 70-99 [facility] Comment on above: Performed By: #### 2 340-8 #### [facility] [address] [place] [address] Glucose [Mass/Vol] 55 mg/dL Low 70 - 99 mg/dL [facility] Interpretation and review of laboratory results Abnormal bead Button Glucose [Mass/Vol] 213 mg/dL High 70-99 [facility] Comment on above: Performed By: #### 2 340-8 #### [facility] [address] [place] [address] Glucose [Mass/Vol] 213 mg/dL High 70 - 99 mg/dL [facility] Interpretation and review of laboratory results Abnormal [facility] Urinalysis macro (dipstick) panel (U)on 06-10-2022 Bilirubin, Urine Negative Normal Negative [facility] Comment on above: Performed By: #### 2 4357-6 #### [facility] [address] [place] [address] Blood, Urine Negative Normal Negative [facility] Comment on above: Performed By: #### 2 4357-6 #### [facility] [address] [place] [address] Clarity (U) Clear Normal Clear [facility] Comment on above: Performed By: #### 2 4357-6 #### [facility] [address] [place] [address] Color (U) Yellow Normal Yellow [facility] Comment on above: Performed By: #### 2 4357-6 #### [facility] [address] [place] [address] Glucose Ql (U) Normal Normal Normal [facility] Comment on above: Performed By: #### 2 4357-6 #### [facility] [address] [place] [address] Ketones Ql (U) Negative Normal Negative [facility] Comment on above: Performed By: #### 2 4357-6 #### [facility] [address] [place] [address] Leukocytes, Urine 1+ Abnormal Negative [facility] Comment on above: Performed By: #### 2 4357-6 #### [facility] [address] [place] [address] Nitrite, Urine Negative Normal Negative [facility] Comment on above: Performed By: #### 2 4357-6 #### [facility] [address] [place] [address] pH (U) 7.0 [pH] Normal 5.0-8.0 [facility] Comment on above: Performed By: #### 2 4357-6 #### [facility] [address] [place] [address] Protein, Urine Negative Normal Negative [facility] Comment on above: Performed By: #### 2 4357-6 #### [facility] [address] [place] [address] Specific [place], Urine 1.015 Normal 1.002-1.030 [facility] Comment on above: Performed By: #### 2 4357-6 #### [facility] [address] [place] [address] Urobilinogen, Urine Normal Normal Normal [facility] Comment on above: Performed By: #### 2 4357-6 #### [facility] [address] [place] [address] Urinalysis macro (dipstick) panel (U)Ordered By: London Hicks on 06-10-2022 Bilirubin Ql (U) Negative Negative [facility] Clarity (U) Clear Clear [facility] Color (U) Yellow Yellow [facility] Glucose Ql (U) Normal Normal mg/dL [facility] Hemoglobin Ql (U) Negative Negative eryth/mcL [facility] Interpretation and review of laboratory results Abnormal [facility] Ketones (U) [Mass/Vol] Negative Negat kyra mg/dL [facility] Leukocyte esterase Test strip Ql (U) 1+ Abnormal Negative [facility] Nitrite Ql (U) Negative Negative [facility] pH (U) 7.0 [pH] 5.0 - 8.0 pH [facility] Protein (U) [Mass/Vol] Negative Negat kyra mg/dL [facility] Specific gravity (U) [Rel density] 1.015 1.002 - 1.030 [facility] Urobilinogen (U) [Mass/Vol] Normal Normal mg/dL [facility] Basic metabolic 2000 panelon 06-09-2022 Anion gap [Moles/Vol] 5 mmol/L Low 6 - 18 [facility] Calcium [Mass/Vol] 9.5 mg/dL 8.9 - 10. 3 mg/dL [facility] Chloride [Moles/Vol] 104 mmol/L 98 - 10 7 mmol/L [facility] CO2 [Moles/Vol] 29 mmol/L 22 - 32 mmol/L [facility] Creatinine [Mass/Vol] 1.14 mg/dL 0.60 - 1.30 mg/dL [facility] GFR/1.73 sq M.predicted MDRD (S/P/Bld) [Vol rate/Area] 77 mL/min/{1.73_m2} - PINF [facility] Comment on above: Effective April 05, 2022, calculation based on the Chronic Kidney Disease Epidemiology Collaboration (CKD-EPI) equation refit without adjustment for race. Glucose [Mass/Vol] 127 mg/dL High 70 - 99 mg/dL [facility] Potassium [Moles/Vol] 3.8 mmol/L 3.6 - 5.1 mmol/L [facility] Sodium [Moles/Vol] 138 mmol/L 136 - 145 mmol/L [facility] Urea nitrogen [Mass/Vol] 19 mg/dL 8 - 20 mg/dL [facility] Urea nitrogen/Creatinine [Mass ratio] 16.7 mg/mg 12.0 - 20.0 [facility] Ethanol (Bld) [Moles/Vol]on 06-09-2022 Ethanol [Mass/Vol] mg/dL NINF - 10 mg/dL [facility] Hemogram and platelets WO di fferential panel (Bld)on 06-09-2022 Basophils (Bld) [#/Vol] 0.04 10*3/uL Normal 0.00-0.20 [facility] Comment on above: Performed By: #### 2 4317-0 #### [facility] [address] [place] [address] Basophils/100 WBC (Bld) 0.4 % Normal 0.0-2.0 [facility] Comment on above: Performed By: #### 2 4317-0 #### [facility] [address] [place] [address] Eosinophils (Bld) [#/Vol] 0.31 10*3/uL Normal 0.00-0.70 [facility] Comment on above: Performed By: #### 2 4317-0 #### [facility] [address] [place] [address] Eosinophils/100 WBC (Bld) 2.8 % Normal 0.0-7.0 [facility] Comment on above: Performed By: #### 2 4317-0 #### [facility] [address] [place] [address] Erythrocyte distribution width (RBC) [Ratio] 13.7 % Normal 11.0-14.8 [facility] Comment on above: Performed By: #### 2 4317-0 #### [facility] [address] [place] [address] Hematocrit (Bld) [Volume fraction] 42.0 % Normal 39.0-49.0 [facility] Comment on above: Performed By: #### 2 4317-0 #### [facility] [address] [place] [address] Hemoglobin (Bld) [Mass/Vol] 12.6 g/dL Low 13.5-17.5 [facility] Comment on above: Performed By: #### 2 4317-0 #### [facility] [address] [place] [address] Immature granulocytes (Bld) [#/Vol] 0.03 10*3/uL Normal [facility] Comment on above: Performed By: #### 2 4317-0 #### [facility] [address] [place] [address] Immature granulocytes/100 WBC (Bld) 0.3 % Normal 0.0-1.2 [facility] Comment on above: Performed By: #### 2 4317-0 #### [facility] [address] [place] [address] Lymphocytes (Bld) [#/Vol] 2.17 10*3/uL Normal 1.00-4.80 [facility] Comment on above: Performed By: #### 2 4317-0 #### [facility] [address] [place] [address] Lymphocytes/100 WBC (Bld) 19.5 % Normal 17.9-49.6 [facility] Comment on above: Performed By: #### 2 4317-0 #### [facility] [address] [place] [address] MCH 27.7 pcg Normal 27.0-34.0 [facility] Comment on above: Performed By: #### 2 4317-0 #### [facility] [address] [place] [address] MCHC (RBC) [Mass/Vol] 30.0 g/dL Low 30.8-35.3 [facility] Comment on above: Performed By: #### 2 4317-0 #### [facility] [address] [place] [address] MCV (RBC) [Entitic vol] 92.3 fL Normal 80.0-97.0 [facility] Comment on above: Performed By: #### 2 4317-0 #### [facility] [address] [place] [address] Monocytes (Bld) [#/Vol] 1.02 10*3/uL High 0.00-0.90 [facility] Comment on above: Performed By: #### 2 4317-0 #### [facility] [address] [place] [address] Monocytes/100 WBC (Bld) 9.2 % Normal 0.0-12.0 [facility] Comment on above: Performed By: #### 2 4317-0 #### [facility] [address] [place] [address] Neutrophils Absolute 7.53 K/mcL Normal 1.80-7.70 [facility] Comment on above: Performed By: #### 2 4317-0 #### [facility] [address] [place] [address] Neutrophils/100 WBC (Bld) 67.8 % Normal 38.1-75.5 [facility] Comment on above: Performed By: #### 2 4317-0 #### [facility] [address] [place] [address] Platelet mean volume (Bld) [Entitic vol] 9.8 fL Normal 6.2-12.1 [facility] Comment on above: Performed By: #### 2 4317-0 #### [facility] [address] [place] [address] Platelets (Bld) [#/Vol] 211 10*3/uL Normal 142-424 [facility] Comment on above: Performed By: #### 2 4317-0 #### [facility] [address] [place] [address] RBC (Bld) [#/Vol] 4.55 10*6/uL Normal 4.30-5.70 [facility] Comment on above: Performed By: #### 2 4317-0 #### [facility] [address] [place] [address] WBC (Bld) [#/Vol] 11.1 10*3/uL High 4.6-10.2 [facility] Comment on above: Performed By: #### 2 4317-0 #### [facility] [address] [place] [address] Basophils (Bld) [#/Vol] 0.04 10*3/uL [facility] Basophils/100 WBC (Bld) 0.4 % 0.0 - 2.0 % [facility] Eosinophils (Bld) [#/Vol] 0.31 10*3/uL [facility] Eosinophils/100 WBC (Bld) 2.8 % 0.0 - 7.0 % [facility] Erythrocyte distribution width (RBC) [Ratio] 13.7 % 11.0 - 14.8 % [facility] Hematocrit (Bld) [Volume fraction] 42.0 % 39.0 - 49.0 % [facility] Hemoglobin (Bld) [Mass/Vol] 12.6 g/dL Low 13.5 - 17.5 g/dL [facility] Immature granulocytes (Bld) [#/Vol] 0.03 10*3/uL K/mcL [facility] Immature granulocytes/100 WBC (Bld) 0.3 % 0.0 - 1.2 % [facility] Interpretation and review of laboratory results Abnormal [facility] Lymphocytes (Bld) [#/Vol] 2.17 10*3/uL [facility] Lymphocytes/100 WBC (Bld) 19.5 % 17.9 - 49.6 % [facility] MCH (RBC) [Entitic mass] 27.7 pg [facility] MCHC (RBC) [Mass/Vol] 30.0 g/dL Low 30.8 - 35.3 g/dL [facility] MCV (RBC) [Entitic vol] 92.3 fL T [facility] Monocytes (Bld) [#/Vol] 1.02 10*3/uL High [facility] Monocytes/100 WBC (Bld) 9.2 % 0.0 - 12.0 % [facility] Neutrophils (Bld) [#/Vol] 7.53 10*3/uL [facility] Neutrophils/100 WBC (Bld) 67.8 % 38.1 - 75.5 % [facility] Platelet mean volume (Bld) [Entitic vol] 9.8 fL [facility] Platelets (Bld) [#/Vol] 211 10*3/uL [facility] RBC (Bld) [#/Vol] 4.55 10*6/uL [facility] WBC (Bld) [#/Vol] 11.1 10*3/uL High [facility] Hepatic function 2000 panelo n 06-09-2022 Albumin [Mass/Vol] 4.2 g/dL 3.5 - 4.8 g/dL [facility] ALP [Catalytic activity/Vol] 90 U/L [facility] ALT [Catalytic activity/Vol] 21 U/L [facility] AST [Catalytic activity/Vol] 14 U/L Low [facility] Bilirubin [Mass/Vol] 0.3 mg/dL 0.3 - 1 .2 mg/dL [facility] Bilirubin.direct [Mass/Vol] 0.1 mg/dL NINF - 0.5 mg/dL [facility] Bilirubin.indirect [Mass/Vol] 0.2 mg/dL 0.0 - 1.0 mg/dL [facility] Protein [Mass/Vol] 7.0 g/dL 6.1 - 7.9 g/dL [facility] Lipaseon 06-09-2022 Lipase [Catalytic activity/Vol] 18 U/L [facility] [place] [Moles/Vol]on 2021 Interpretation and review of laboratory results Normal [facility] [place] levelon 06-09-2022 [place] [Moles/Vol] 1.50 mmol/L [facility] Magnesiumon 06-09-2022 Magnesium [Mass/Vol] 1.8 mg/dL 1.8 - 2 .5 mg/dL [facility] Magnesium [Mass/Vol]on 06-09 [place] Level 1.50 mEq/L Normal 0.50-1.50 [facility] Comment on above: Performed By: #### 1 9123-9 #### [facility] [address] [place] [address] No Panel Informationon 06-09 Interpretation and review of laboratory results Abnormal [facility] Interpretation and review of laboratory results Normal [facility] Red top grass IgE Qn (S)on 1 08-10-2021 Specimen source Nom (Unsp spec) Hold for add-ons. [facility] Comment on above: Auto resulted. [facility] SARS-CoV-2 (COVID-19) RNA NA A+probe Ql (Resp)on 06-09-2022 Interpretation and review of laboratory results Normal [facility] SARS-CoV-2 (COVID-19) RdRp gene DALIA+probe Ql (Resp) Not detected Not Detected [facility] SARS-CoV-2 RNA Resp Ql DALIA+p robeon 06-09-2022 SARS-CoV-2 (COVID-19) RNA DALIA+probe Ql (Resp) Not detected Normal Not Detected [facility] Comment on above: Performed By: #### 9 4500-6 #### [facility] [address] [place] [address] TSH Qnon 06-09-2022 Interpretation and review of laboratory results Normal [facility] Thyroid stimulating hormoneo n 06-09-2022 TSH Qn 0.98 m[IU]/L [facility] POCT GLUCOSEon 05-18-2022 Glucose [Mass/Vol] 120 mg/dL Normal [facility] Comment on above: Performed By: #### G LUP #### [facility] [address] [place] [address] [facility] POCT glucoseon 05-18-2022 Yeast Wet prep Ql (Vag fld) 120 [facility] SARS-COV-2, PCRon 05-18-2022 SARS-CoV-2 (COVID-19) RNA DALIA+probe Ql (Unsp spec) SARS-COV-2, PCR Negative Negative Negative results do not preclude SARS-CoV-2 infection and should not be used as the sole basis for treatment or other patient management decisions. Negative results must be combined with clinical observations, patient history, and epidemiological information. The Xpert Xpress CoV-2/Flu/RSV plus test is only for use under the Food and Drug Administration's Emergency Use Authorization. Results are for the simultaneous detection and differentiation of SARS-CoV-2, influenza A virus, influenza B virus and RSV RNA which are generally detectable in upper respiratory specimens during the acute phase of infection. Normal [facility] Comment on above: Performed By: #### L [id number], [id number], [id number] #### [address] SARS-CoV-2 (COVID-19) RNA DALIA+probe Ql (Resp) Negative Negative [facility] Comment on above: Negative results do not preclude SARS-CoV-2 infection and should not be used as the sole basis for treatment or other patient management decisions. Negative results must be combined with clinical observations, patient history, and epidemiological information. The Xpert Xpress CoV-2/Flu/RSV plus test is only for use under the Food and Drug Administration's Emergency Use Authorization. Results are for the simultaneous detection and differentiation of SARS-CoV-2, influenza A virus, influenza B virus and RSV RNA which are generally detectable in upper respiratory specimens during the acute phase of infection. SARS-CoV-2 (COVID-19) RNA NA A+probe Ql (Resp)on 05-18-2022 Interpretation and review of laboratory results Normal [facility] POCT GLUCOSEon 05-17-2022 Glucose [Mass/Vol] 197 mg/dL Normal [facility] Comment on above: Performed By: #### L [id number], [id number], [id number] #### [facility] [address] POCT glucoseon 05-17-2022 Yeast Wet prep Ql (Vag fld) 197 [facility] POCT GLUCOSEon 05-16-2022 Glucose [Mass/Vol] 160 mg/dL Normal [facility] Comment on above: Performed By: #### L [id number], [id number], [id number] #### [address] POCT glucoseon 05-16-2022 Yeast Wet prep Ql (Vag fld) 160 [facility] HbA1c (Bld) [Mass fraction]o n 05-15-2022 Interpretation and review of laboratory results Normal [facility] Hemoglobin A1con 05-15-2022 HbA1c (Bld) [Mass fraction] 5.7 % NINF - 6.0 % [facility] Comment on above: Reference Interval f or %A1c: %A1c (NGSP) Interpretation <6.0% Non-Diabetic Range >6.5% Action Suggested Lipid panelon 05-15-2022 Cholesterol [Mass/Vol] 132 mg/dL NINF - 200 mg/dL [facility] Cholesterol in HDL [Mass/Vol] 45.7 mg/dL 40.0 - 59.9 mg/dL [facility] Cholesterol in LDL [Mass/Vol] 56.3 mg/dL NINF - 100 mg/dL [facility] Comment on above: LDL REFERENCE RANGE: Optimal <100 mg/dl Near Optimal 100-129 mg/dL Borderline High 130-159 mg/dL High 160-189 mg/dL Very High >=190 mg/dL Cholesterol in VLDL [Mass/Vol] 30 mg/dL NINF - 41 mg/dL [facility] Interpretation and review of laboratory results Normal [facility] Triglyceride [Mass/Vol] 150 mg/dL NINF - 150 mg/dL [facility] Syphilis Treponema Antibodyo n 05-15-2022 T. pallidum Ab IA Ql (S) Non-Reactive Nonreactive [facility] T. pallidum Ab IA Ql (S)on 07-15-2021 Interpretation and review of laboratory results Normal [facility] Thyroid Cascadeon 05-15-2022 Interpretation and review of laboratory results Normal [facility] Tryptophan/Creatinine (U) [Ratio] 0.615 [facility] BASIC METABOLIC PANELon 04-28 Anion gap [Moles/Vol] 5 mmol/L Low 8-12 [facility] Comment on above: Performed By: #### 4 [id number], [id number], [id number] #### [facility] [address] Calcium [Mass/Vol] 9.3 mg/dL Normal 8.4-10.4 [facility] Comment on above: Performed By: #### 4 [id number], [id number], [id number] #### [facility] [address] [place] [address] [place] Chloride [Moles/Vol] 105 mmol/L Normal 96-109 [facility] Comment on above: Performed By: #### 4 [id number], [id number], [id number] #### [facility] [address] [place] [address] [place] CO2 [Moles/Vol] 28.5 mmol/L Normal 22-30 [facility] Comment on above: Performed By: #### 4 [id number], [id number], [id number] #### [facility] [address] [place] [address] [facility] Creatinine [Mass/Vol] 1.10 mg/dL Normal 0.66-1.25 [facility] Comment on above: Performed By: #### 4 [id number], [id number], [id number] #### [facility] [address] [place] [address] [place] GLOMERULAR FILTRATION RATE ML/MIN/1.73 SQ M.PREDICTED 80.8 mL/min/1.73m*2 Normal >=60.0 [facility] Comment on above: Result Comment: eGFR calculation based on the Chronic Kidney Disease Epidemiology Collaboration (CKD-EPI) equation refit without adjustment for race. Categories in Chronic Kidney Disease (CKD) Category: GFR(mL/min/1.73m^2) Interpretation: G1* 90 or greater Normal or high G2* 60-89 Mild decrease G3a 45-59 Mild to moderate decrease G3b 30-44 Moderate to severe decrease G4 15-29 Severe decrease G5 14 or less Kidney failure *G1&G2: In the absence of evidence of kidney damage, neither GFR category G1 nor G2 fulfill the criteria for CKD Kidney Int Suppl.2013;3:1-150 Performed By: #### 4 [id number], [id number], [id number] #### [facility] [address] [place] [address] [facility] Glucose [Mass/Vol] 92.5 mg/dL Normal 65-100 [facility] Comment on above: Performed By: #### 4 [id number], [id number], [id number] #### [facility] [address] Potassium [Moles/Vol] 4.2 mmol/L Normal 3.6-5.1 [facility] Comment on above: Performed By: #### 4 [id number], [id number], [id number] #### [facility] [address] Sodium [Moles/Vol] 138.1 mmol/L Normal 135-147 [facility] Comment on above: Performed By: #### 4 [id number], [id number], [id number] #### [facility] [address] Urea nitrogen [Mass/Vol] 20.7 mg/dL Normal 8-26 [facility] Comment on above: Performed By: #### 4 [id number], [id number], [id number] #### [facility] [address] Basic metabolic panel aka em 805-14-2022 Anion gap [Moles/Vol] 5 mmol/L Low 8 - 12 mmol/L [facility] Calcium [Mass/Vol] 9.3 mg/dL 8.4 - 10. 4 mg/dL [facility] Calcium hydrogen phosphate dihydrate crystals LM Ql (Urine sed) 20.7 mg/dL 8 - 26 mg/dL [facility] Chloride [Moles/Vol] 105 mmol/L 96 - 10 9 mmol/L [facility] CMV IgM IF Ql 28.5 mmol/L 22 - 30 mmol/L [facility] Creatinine [Mass/Vol] 1.10 mg/dL 0.66 - 1.25 mg/dL [facility] GFR/1.73 sq M.predicted MDRD (S/P/Bld) [Vol rate/Area] 80.8 mL/min/{1.73_m2} - PINF [facility] Comment on above: eGFR calculation bas ed on the Chronic Kidney Disease Epidemiology Collaboration (CKD-EPI) equation refit without adjustment for race. Categories in Chronic Kidney Disease (CKD) Category: GFR(mL/min/1.73m^2) Interpretation: G1* 90 or greater Normal or high G2* 60-89 Mild decrease G3a 45-59 Mild to moderate decrease G3b 30-44 Moderate to severe decrease G4 15-29 Severe decrease G5 14 or less Kidney failure *G1&G2: In the absence of evidence of kidney damage, neither GFR category G1 nor G2 fulfill the criteria for CKD Kidney Int Suppl.2013;3:1-150 Glucose [Mass/Vol] 92.5 mg/dL 65 - 100 mg/dL [facility] Interpretation and review of laboratory results Abnormal [facility] Potassium [Moles/Vol] 4.2 mmol/L 3.6 - 5.1 mmol/L [facility] Sodium [Moles/Vol] 138.1 mmol/L 135 - 147 mmol/L [facility] CARBAMAZEPINE LEVEL, TOTALon 05-14-2022 CARBAMAZEPINE 6.4 ug/mL Normal 4.0-12.0 [facility] Comment on above: Performed By: #### 4 [id number], [id number], [id number] #### [address] CBC AND DIFFERENTIALon 05-14 ABSOLUTE BASOPHIL 0.1 x10*3/uL Normal 0.0-0.1 [facility] Comment on above: Performed By: #### 4 [id number] #### [address] ABSOLUTE EOSINOPHIL 0.3 x10*3/uL Normal 0.1-0.3 [facility] Comment on above: Performed By: #### 4 [id number] #### [address] ABSOLUTE IMMATURE GRANULOCYTES 0.0 x10*3/uL Normal 0.0-0.1 [facility] Comment on above: Performed By: #### 4 [id number] #### [address] ABSOLUTE LYMPH 2.3 x10*3/uL Normal 1.2-3.3 [facility] Comment on above: Performed By: #### 4 [id number] #### [address] ABSOLUTE MONO 0.7 x10*3/uL High 0.2-0.6 [facility] Comment on above: Performed By: #### 4 [id number] #### [address] ABSOLUTE NEUTROPHIL 5.9 x10*3/uL Normal 2.4-6.6 [facility] Comment on above: Performed By: #### 4 [id number] #### [address] Basophils/100 WBC (Bld) 0.5 % Normal [facility] Comment on above: Performed By: #### 4 [id number] #### [address] Eosinophils/100 WBC (Bld) 3.5 % Normal [facility] Comment on above: Performed By: #### 4 [id number] #### [address] Erythrocyte distribution width (RBC) [Ratio] 13.8 % Normal 11.5-14.5 [facility] Comment on above: Performed By: #### 4 [id number] #### [address] Hematocrit (Bld) [Volume fraction] 39.4 % Normal 37.7-51.1 [facility] Comment on above: Performed By: #### 4 [id number] #### [address] Hemoglobin (Bld) [Mass/Vol] 12.2 g/dL Low 12.8-17.7 [facility] Comment on above: Performed By: #### 4 [id number] #### [address] Immature granulocytes/100 WBC (Bld) 0.2 % [facility] Comment on above: Performed By: #### 4 [id number] #### [address] Lymphocytes/100 WBC (Bld) 24.4 % Normal [facility] Comment on above: Performed By: #### 4 [id number] #### [address] MCH (RBC) [Entitic mass] 28.6 pg Normal 27.0-34.2 [facility] Comment on above: Performed By: #### 4 [id number] #### [address] MCHC (RBC) [Mass/Vol] 31.0 g/dL Low 31.4-36.2 [facility] Comment on above: Performed By: #### 4 [id number] #### [address] MCV (RBC) [Entitic vol] 92.5 fL Normal 80.6-99 [facility] Comment on above: Performed By: #### 4 [id number] #### [address] Monocytes/100 WBC (Bld) 7.5 % Normal [facility] Comment on above: Performed By: #### 4 [id number] #### [address] Neutrophils/100 WBC (Bld) 63.9 % Normal [facility] Comment on above: Performed By: #### 4 [id number] #### [address] NUCLEATED RED BLOOD CELLS AUTO 0.0 % Normal 0.0-1.0 [facility] [facility] Comment on above: Performed By: #### 4 [id number] #### [address] PLATELET COUNT 192 x10*3/uL Normal 150-400 [facility] Comment on above: Performed By: #### 4 [id number] #### [address] RED BLOOD CELL COUNT 4.26 x10*6/uL Normal 3.70-5.70 [facility] Comment on above: Performed By: #### 4 [id number] #### [address] WHITE BLOOD CELLS 9.3 x10*3/uL Normal 4.3-10.3 [facility] Comment on above: Performed By: #### 4 [id number] #### [address] CBC with DifferentialOrdered By: Background Lab on 05-14-2022 Absolute Immature Granulocytes 0.0 [facility] Age [Time] 92.5 fL 80.6 - 99 fL [facility] Age [Time] 28.6 pg 27.0 - 34.2 pg [facility] Age [Time] 31.0 g/dL Low 31.4 - 36.2 g/dL [facility] B. burgdorferi IgM IB Ql (CSF) 24.4 % [facility] Basophils (Bld) [#/Vol] 0.1 10*3/uL [facility] Basophils/100 WBC (Body fld) 0.5 % [facility] Eosinophils (Bld) [#/Vol] 2.3 10*3/uL [facility] Eosinophils (Bld) [#/Vol] 0.7 10*3/uL High [facility] Eosinophils (Bld) [#/Vol] 0.3 10*3/uL [facility] Eosinophils/100 WBC (Bld) 3.5 % [facility] Erythrocyte distribution width (RBC) [Ratio] 13.8 % 11.5 - 14.5 % [facility] Hematocrit (Bld) [Volume fraction] 39.4 % 37.7 - 51.1 % [facility] Hexanoylglycine (U) [Moles/Vol] 12.2 g/dL Low 12.8 - 17.7 g/dL [facility] Immature granulocytes/100 WBC (Bld) 0.2 % [facility] Interpretation and review of laboratory results Abnormal [facility] Monocytes/100 WBC (Bld) 7.5 % [facility] Neurotensin (P) [Mass/Vol] 63.9 % [facility] Neutrophils (Bld) [#/Vol] 5.9 10*3/uL [facility] Nucleated RBC/100 WBC (Bld) [Ratio] 0.0 % 0.0 - 1.0 % [facility] Platelets (Bld) [#/Vol] 192 10*3/uL [facility] RBC (Bld) [#/Vol] 4.26 10*6/uL [facility] WBC LM Ql (Sput) 9.3 [facility] Carbamazepine level, totalon 05-14-2022 carBAMazepine 10,11-Epoxide [Mass/Vol] 6.4 ug/mL 4.0 - 12.0 ug/mL [facility] Interpretation and review of laboratory results Normal [facility] HEMOGLOBIN A1Con 05-14-2022 HbA1c (Bld) [Mass fraction] 5.7 % Normal <=6.0 [facility] Comment on above: Result Comment: Refe rence Interval for %A1c: %A1c (NGSP) Interpretation <6.0% Non-Diabetic Range >6.5% Action Suggested Performed By: #### 4 [id number] #### [address] LIPID PANELon 05-14-2022 Cholesterol [Mass/Vol] 132 mg/dL Normal <=200 [facility] Comment on above: Performed By: #### 4 [id number], [id number], [id number] #### [address] Cholesterol in HDL [Mass/Vol] 45.7 mg/dL Normal 40.0-59.9 [facility] Comment on above: Performed By: #### 4 [id number], [id number], [id number] #### [address] LDL CHOLESTEROL CALCULATED 56.3 mg/dL Normal <=100 [facility] Comment on above: Result Comment: LDL REFERENCE RANGE: Optimal <100 mg/dl Near Optimal 100-129 mg/dL Borderline High 130-159 mg/dL High 160-189 mg/dL Very High >=190 mg/dL Performed By: #### 4 [id number], [id number], [id number] #### [address] Triglyceride [Mass/Vol] 150 mg/dL Normal <=150 [facility] Comment on above: Performed By: #### 4 [id number], [id number] #### [address] VLDL CHOLESTEROL MAGALY 30 mg/dL Normal <=41 [facility] Comment on above: Performed By: #### 4 [id number], [id number], [id number] #### [address] LITHIUM LEVELon 05-14-2022 LITHIUM LEVEL 0.5 mmol/L Low 0.6-1.2 [facility] Comment on above: Performed By: #### L [id number], [id number], [id number] #### [address] Tiffin levelon 05-14-2022 Interpretation and review of laboratory results Abnormal [facility] Tiffin [Moles/Vol] 0.5 mmol/L Low 0.6 - 1. 2 mmol/L [facility] No Panel Informationon 05-14 Extra Tube Hold for add-ons. [facility] SYPHILIS TREPONEMA ANTIBODYo n 05-14-2022 SYPHILIS TREPONEMA ANTIBODY Non-Reactive Normal Nonreactive [facility] Comment on above: Performed By: #### L [id number], [id number], [id number] #### [place] [address] [place] [address] THYROID CASCADE PANELon 11- TSH CASCADE 0.615 uIU/mL Normal 0.465-4.680 [facility] Comment on above: Performed By: #### L [id number], [id number], [id number] #### [facility] [address] [place] [address] TOXICOLOGY SCREEN, URINEon 1 07-14-2021 AMPHETAMINE/METH Not detected Normal Not Detecte d (Cutoff <1000 ng/mL) [facility] Comment on above: Order Comment: Notes :1. Screening results should be considered presumptive unless the presence of the analyte has been confirmed by a reference lab2. All drug groups are analyzed on urine specimens Performed By: #### L [id number], [id number], [id number] #### [facility] [address] [place] [address] BARBITURATES Not detected Normal Not Detected (Cutoff <200 ng/mL) [facility] Comment on above: Order Comment: Notes :1. Screening results should be considered presumptive unless the presence of the analyte has been confirmed by a reference lab2. All drug groups are analyzed on urine specimens Performed By: #### L [id number], [id number], [id number] #### [facility] [address] [place] [id number] BENZODIAZEPINES Not detected Normal Not Detected (Cutoff <200 ng/mL) [facility] Comment on above: Order Comment: Notes :1. Screening results should be considered presumptive unless the presence of the analyte has been confirmed by a reference lab2. All drug groups are analyzed on urine specimens Performed By: #### L [id number], [id number], [id number] #### [facility] [address] [place] [address] [facility] Cocaine Ql (U) Not detected Normal Not Detected (Cutoff <300 ng/mL) [facility] Comment on above: Order Comment: Notes :1. Screening results should be considered presumptive unless the presence of the analyte has been confirmed by a reference lab2. All drug groups are analyzed on urine specimens Performed By: #### L [id number], [id number], [id number] #### [place] [address] [place] [address] FENTANYL Not detected Normal Not Detected (Cutoff 1.0 ng/mL) [facility] Comment on above: Order Comment: Notes :1. Screening results should be considered presumptive unless the presence of the analyte has been confirmed by a reference lab2. All drug groups are analyzed on urine specimens Performed By: #### L [id number], [id number], [id number] #### [facility] [address] [place] [address] MARIJUANA/THC Not detected Normal Not Detected (Cutoff <50 ng/mL) [facility] Comment on above: Order Comment: Notes :1. Screening results should be considered presumptive unless the presence of the analyte has been confirmed by a reference lab2. All drug groups are analyzed on urine specimens Performed By: #### L [id number], [id number], [id number] #### [address] OPIATES Not detected Normal Not Detected (Cutoff <300 ng/mL) [facility] Comment on above: Order Comment: Notes :1. Screening results should be considered presumptive unless the presence of the analyte has been confirmed by a reference lab2. All drug groups are analyzed on urine specimens Performed By: #### L [id number], [id number], [id number] #### [facility] [address] [place] [address] PCP Not detected Normal Not Detected (Cutoff <25 ng/mL) [facility] Comment on above: Order Comment: Notes :1. Screening results should be considered presumptive unless the presence of the analyte has been confirmed by a reference lab2. All drug groups are analyzed on urine specimens Performed By: #### L [id number], [id number], [id number] #### [place] [address] [place] [address] Toxicology screen, urineon 1 07-14-2021 Amphetamines Ql (U) Not detected Not Dete cted (Cutoff <1000 ng/mL) [facility] Barbiturates [Mass/Vol] Not detected Not Detected (Cutoff <200 ng/mL) [facility] Benzodiazepines Screen [Mass/Vol] Not detected Not Detected (Cutoff <200 ng/mL) [facility] Cannabinoids tested Screen Nom (U) Not detected Not Detected (Cutoff <50 ng/mL) [facility] CMV IgM IF Ql Not detected Not Detected (Cutoff <300 ng/mL) [facility] Felbamate [Mass/Vol] Not detected Not Det ected (Cutoff 1.0 ng/mL) [facility] Interpretation and review of laboratory results Normal [facility] Opiates tested Screen Nom (U) Not detected Not Detected (Cutoff <300 ng/mL) [facility] Phencyclidine (U) [Mass/Vol] Not detected Not Detected (Cutoff <25 ng/mL) [facility] Notes: 1. Screening results should be considered presumptive unless the presence of the analyte has been confirmed by a reference lab 2. All drug groups are analyzed on urine specimens [facility] URINALYSIS WITH REFLEX CULTU REon 05-14-2022 Appearance (U) Clear Normal [facility] Comment on above: Performed By: #### 4 [id number] #### [address] BILIRUBIN UA Negative Normal Negative [facility] Comment on above: Performed By: #### 4 [id number] #### [address] Color (U) Yellow Normal [facility] Comment on above: Performed By: #### 4 [id number] #### [address] [address] [place] Glucose Ql (U) Negative Normal Negative [facility] Comment on above: Performed By: #### 4 [id number] #### [address] [address] [place] Ketones Ql (U) Negative Normal Negative [facility] Comment on above: Performed By: #### 4 [id number] #### [address] [address] [place] LEUKOESTERASE Negative Normal Negative [facility] Comment on above: Performed By: #### 4 [id number] #### [address] [address] [place] Nitrite Ql (U) Negative Normal Negative [facility] Comment on above: Performed By: #### 4 [id number] #### [address] OCCULT BLD Negative Normal Negative [facility] Comment on above: Performed By: #### 4 [id number] #### [address] PH, URINE 7.0 Normal [facility] Comment on above: Performed By: #### 4 [id number] #### [address] Protein Ql (U) Negative Normal Negative [facility] Comment on above: Performed By: #### 4 [id number] #### [address] RBC LM.HPF (Urine sed) [#/Area] /[HPF] Normal <=5 [facility] Comment on above: Performed By: #### 4 [id number] #### [address] SPECIFIC GRAVITY, URINE 1.004 Normal [facility] Comment on above: Performed By: #### 4 [id number] #### [address] UROBILINOGEN UA Negative Normal <2.0 [facility] Comment on above: Performed By: #### 4 [id number] #### [address] WBC LM.HPF (Urine sed) [#/Area] 3 /[HPF] Normal <=5 [facility] Comment on above: Performed By: #### 4 [id number] #### [address] Urinalysis complete W Reflex Culture panel (U)on 05-14-2022 Acetone [Mass/Vol] Negative Negative [facility] [employer] Appearance (Body fld) Clear [facility] Bilirubin Ql (U) Negative Negative [facility] Color (Stone) Yellow [facility] G6PD (RBC) [Catalytic activity/Vol] Negative Negative [facility] Hemoglobin Ql (U) NINF [facility] Hemoglobin.gastrointest inal (Stl) [Mass/Mass] Negative Negative [facility] Leukocyte esterase Test strip Ql (U) Negative Negative [facility] Nitrite Test strip (U) [Mass/Vol] Negative Negative [facility] pH (Rhina fld) 7.0 [facility] Protein (U) [Mass/Vol] Negative Negative [employer] [facility][note 3] System Specific gravity (U) [Rel density] 1.004 [facility] Urobilinogen Qn (U) Negative NINF - 2.0 [facility] WBC (U) [#/Vol] 3 /uL NINF [facility] US DUPLEX VENOUS LEGS BILALFONSO Lucas 05-05-2022 US DUPLEX VENOUS LEGS BILATERAL Patient Info Name: RIGO GARCIA Age: 52 years : 1970 Gender: Male Exam Date: 05/04/2022 8:32 PM Patient Status: Emergency Gas Controller: Holly Abad RVT, RDCS Attending Physician: DAVID JI Indications R22.43 - Localized swelling, mass and lump, lower limb, bilateral Procedure Description 72013 Duplex examination using B-mode, color and spectral Doppler of extremity veins including responses to compression and other maneuvers; complete bilateral study. Conclusions * No evidence of deep or superficial vein thrombosis in the right or left lower extremities. . Report Signatures Finalized by Brittani Heredia DO, RVT, RPVI FSVM on 05/05/2022 09:30 AM [facility] US DUPLEX VENOUS LEGS BILATE Shayy 05-04-2022 US DUPLEX VENOUS LEGS BILATERAL Patient Info Name: RIGO GARCIA Age: 52 years : 1970 Gender: Male Exam Date: 05/04/2022 8:32 PM Patient Status: Emergency Gas Controller: Holly Abad RVT, RDCS Attending Physician: DAVID JI Indications R22.43 - Localized swelling, mass and lump, lower limb, bilateral Procedure Description 16399 Duplex examination using B-mode, color and spectral Doppler of extremity veins including responses to compression and other maneuvers; complete bilateral study. Conclusions * No evidence of deep or superficial vein thrombosis in the right or left lower extremities. . Report Signatures Finalized by Brittani Heredia DO, RVT, RPVI, FSVM on 05/05/2022 09:30 AM Dictated by: BRITTANI HEREDIA on WedMay 05, 2022 9:31:05 AM EST Transcribed by: BRITTANI HEREDIA on WedMay 05, 2022 9:31:05 AM EST Finalized by: BRITTANI HEREDIA on WedMay 05, 2022 9:31:05 AM EST Normal [facility] XR CHEST PA/APon 05-04-2022 XR CHEST PA/AP EXAMINATION: XR CHEST PA/AP 05/04/2022 8:38 pm HISTORY: ORDERING SYSTEM PROVIDED HISTORY: cough, TECHNOLOGIST PROVIDED HISTORY: Illness/Other Reason for exam: cough Cancer History: n Surgery, RadiationHistory: n Encounter Type: Initial Additional signs and symptoms: ORDERING SYSTEM PROVIDED DIAGNOSIS CODES: COMPARISON: AP chest 02/16/2022. FINDINGS: There is mild stable enlargement of the cardiac silhouette. No dense consolidation, effusion, failure or pneumothorax is noted. No acute osseous abnormality. There is identified. IMPRESSION: No acute cardiopulmonary process based on AP image alone. [employer] Workstation ID: [id number] Dictated by: LAURA DONAHUE on WedMay 04, 2022 9:11:28 PM EST Transcribed by: ANITA TUCKER on WedMay 04, 2022 9:13:44 PM EST Finalized by: LAURA DONAHUE on WedMay 04, 2022 10:19:49 PM EST Normal [facility] Comment on above: Order Comment: Injur y/Trauma or Illness?:Illness/Other How long have you had these symptoms (acute/chronic)?:Acute Reason for exam?:cough History of cancer?:n Surgeries, chemotherapy, or radiation?:n Type of Exam?:Initial Additional signs and symptoms?: COVID-19, MOLECULARon 2021 SARS-CoV-2 (COVID-19) RNA DALIA+probe Ql (Unsp spec) Not detected Normal Not Detected [facility] Comment on above: Order Comment: This test was performed under the FDA's Emergency Use Authorization (EUA). Testing was performed using the Aleksandar SARS-CoV-2 RT-PCR Test on the [employer] System. This test has not been approved for use in asymptomatic patients and its performance in this patient population has not been evaluated. Negative results do not rule out the presence of SARS-CoV-2. Fact sheets for the EUA can be found at the following links: For Healthcare Providers: https://www.fda.gov/media/377215/download For Patients: https://www.fda.gov/media/118766/download Performed By: #### L [id number] #### [facility] [address] [place] [address] Jamar Remy M.D. [id number] XR MODIFIED BARIUM SWALLOWon 02-19-2022 XR MODIFIED BARIUM SWALLOW EXAMINATION: XR MODIFIED BARIUM SWALLOW HISTORY: dysphagia Dx: R41.82 (Altered mental status, unspecified altered mental status type) Injury/Trauma or Illness?:Illness/Ot her How long have you had these symptoms (acute/chronic)?:Ac pechanga CONTRAST: BARIUM SULFATE 40 % (W/V), 30% (W/W) ORAL PASTE - 1 Dose, BARIUM SULFATE 40 % (W/V), 30 % (W/W) ORAL SUSPENSION - 1 Dose, BARIUM SULFATE 81 % (W/W) ORAL POWDER - 1 Dose, FLUOROSCOPY DOSE: Ka,r mGy: Fluoro dose in Ka,r mGy: 8.54 TECHNIQUE: Modified barium swallow performed with speech therapy. 279 fluoroscopic images obtained. FINDINGS: Anterior spur formation at the C5-6 level the distorting the retropharyngeal soft tissues. Oral phase: Mildly impaired. Pharyngeal phase: Mildly impaired. No evidence of penetration or aspiration. IMPRESSION: Mildly impaired phases of swallowing without aspiration. Please see speech therapy recommendations. Workstation ID: [id number] Dictated by: Gui AZAR on WedFeb 20, 2022 6:54:23 AM EDT Transcribed by: Gui AZAR on WedFeb 20, 2022 6:54:23 AM EDT Finalized by: Gui AZAR on WedFeb 20, 2022 6:54:23 AM EDT Normal [facility] Comment on above: Order Comment: Injur y/Trauma or Illness?:Illness/Other How long have you had these symptoms (acute/chronic)?:Acute Reason for exam?:dysphagia Type of Exam?:Ongoing Additional signs and symptoms?: Fluoro time in minutes:1.7 Fluoro dose in mGy?:8.54 COVID-19, MOLECULARon 2021 SARS-CoV-2 (COVID-19) RNA DALIA+probe Ql (Unsp spec) Not detected Normal Not Detected [facility] Comment on above: Order Comment: This test was performed under the FDA's Emergency Use Authorization (EUA). Testing was performed using the Aleksanadr SARS-CoV-2 RT-PCR Test on the [employer] [employer] System. This test has not been approved for use in asymptomatic patients and its performance in this patient population has not been evaluated. Negative results do not rule out the presence of SARS-CoV-2. Fact sheets for the EUA can be found at the following links: For Healthcare Providers: https://www.fda.gov/media/408085/download For Patients: https://www.fda.gov/media/267129/download Performed By: #### L [id number] #### [facility] [address] [place] [address] Jamar Remy M.D. [id number] XR FOR MRI CLEARANCEon 02-17 XR FOR MRI CLEARANCE EXAMINATION: XR FOR MRI CLEARANCE 02/16/2022 11:42 pm HISTORY: ORDERING SYSTEM PROVIDED HISTORY: MRI Clearance Films: Head/Neck, AP Abdomen/Pelvis, AP Bilat Humerus, and AP Bilat Femur, TECHNOLOGIST PROVIDED HISTORY: Illness/Other Reason for exam: MRI Clearance Films: Head/Neck, AP Abdomen/Pelvis, AP Bilat Humerus, and AP Bilat Femur Cancer History: n Surgery, RadiationHistory: n Encounter Type: Unknown Additional signs and symptoms: ORDERING SYSTEM PROVIDED DIAGNOSIS CODES: Z13.89 Encounter for imaging to screen for metal prior to MRI COMPARISON: 02/16/2022 FINDINGS: No radiopaque foreign body identified to preclude having an MRI. No acute osseous abnormality identified. Lungs are grossly clear. Bowel gas pattern is nonobstructive. IMPRESSION: No radiopaque foreign body identified. Workstation ID: [id number] Dictated by: JOSE MEYERS on WedFeb 17, 2022 9:54:36 AM EDT Transcribed by: JOSE MEYERS on WedFeb 17, 2022 9:54:36 AM EDT Finalized by: JOSE MEYERS on WedFeb 17, 2022 9:54:36 AM EDT Normal [facility] Comment on above: Order Comment: MRI C learance Films: Head/Neck, AP Abdomen/Pelvis, AP Bilat Humerus, and AP Bilat Femur Injury/Trauma or Illness?:Illness/Other How long have you had these symptoms (acute/chronic)?:Acute Reason for exam?:MRI Clearance Films: Head/Neck, AP Abdomen/Pelvis, AP Bilat Humerus, and AP Bilat Femur History of cancer?:n Surgeries, chemotherapy, or radiation?:n Type of Exam?:Unknown Additional signs and symptoms?: CT HEAD OR BRAIN WITHOUT CON TRASTon 02-16-2022 CT HEAD OR BRAIN WITHOUT CONTRAST EXAMINATION: CT HEAD OR BRAIN WITHOUT CONTRAST HISTORY: ORDERING SYSTEM PROVIDED HISTORY: ams, TECHNOLOGIST PROVIDED HISTORY: Illness/Other Reason for exam: ams Encounter Type: Initial Additional signs and symptoms: ams ORDERING SYSTEM PROVIDED DIAGNOSIS CODES: COMPARISON: CT head, 09/15/2012. TECHNIQUE: CT examination of the head without IV contrast. Dose reduction techniques were achieved by using automated exposure control and/or adjustment of mA and/or kV according to patient size and/or use of iterative reconstruction technique. FINDINGS: There is complete opacification of the left maxillary sinus. The remainder of the paranasal sinuses clear. Mastoid air cells clear. The skull base intact. No skull lesion. Nasopharynx normal. Orbital contents normal. There is chronic infarction in the left MCA territory involving the left temporal lobe, left insula, left frontal lobe and left basal ganglia. This finding is stable. No extraaxial fluid collections. No shift of midline. No acute hemorrhage. No masses. Swann matter and white matter differentiation intact. IMPRESSION: 1. Stable CT of the head. 2. Chronic left MCA territory infarction stable. 3. No acute findings. No hemorrhage. No mass. [facility] [place] Workstation ID: [id number] Dictated by: MOOSE OROZCO on WedFeb 16, 2022 3:34:33 PM EDT Transcribed by: ALPESH MEYERS on WedFeb 16, 2022 3:46:44 PM EDT Finalized by: MOOSE OROZCO on WedFeb 16, 2022 10:32:15 PM EDT [facility] Comment on above: Order Comment: Injur y/Trauma or Illness?:Illness/Other How long have you had these symptoms (acute/chronic)?:Acute Reason for exam?:ams Type of Exam?:Initial Additional signs and symptoms?:ams MR BRAIN WITHOUT CONTRASTon 02-16-2022 MR BRAIN WITHOUT CONTRAST EXAMINATION: MR BRAIN WITHOUT CONTRAST HISTORY: ORDERING SYSTEM PROVIDED HISTORY: Mental status change, unknown cause, TECHNOLOGIST PROVIDED HISTORY: Illness/Other Reason for exam: Mental status change Encounter Type: Initial Additional signs and symptoms: ORDERING SYSTEM PROVIDED DIAGNOSIS CODES: R41.82 Altered mental status, unspecified altered mental status type E87.0 Hypernatremia Z13.89 Encounter for imaging to screen for metal prior to MRI COMPARISON: Head CT 02/16/2022. MRI brain 05/24/2012. TECHNIQUE: Multiplanar, multisequence MRI images of the brain were obtained without the administration of intravenous gadolinium contrast. FINDINGS: No restricted diffusion. Encephalomalacia at the left frontotemporal lobe and basal ganglia with ex vacuo dilatation of the left lateral ventricle. Left-sided wallerian degeneration noted. Ventricles and sulci normal in size. No hydrocephalus. No midline shift or pathologic extra-axial fluid collections. Pituitary gland is not abnormally enlarged. No Chiari malformation. Orbital apices are clear. Central intracranial flow voids of the [place] of [place] are visualized, implying that the vessels are patent. Material filling the left maxillary sinus, compatible with sinusitis. IMPRESSION: 1. Negative for acute infarct. No appreciable acute intracranial process. 2. Large chronic infarct/encephaloma lacia at the left middle cerebral artery territory distribution, with left-sided Wallerian degeneration. This has aged as expected compared to the prior MRI. [employer] Workstation ID: [id number] Dictated by: MOSHE TAMEZ on WedFeb 17, 2022 1:57:52 PM EDT Transcribed by: ELIU FANG on WedFeb 17, 2022 2:47:57 PM EDT Finalized by: MOSHE TAMEZ on WedFeb 17, 2022 2:59:50 PM EDT Normal [facility] Comment on above: Order Comment: Injur y/Trauma or Illness?:Illness/Other How long have you had these symptoms (acute/chronic)?:Acute Reason for exam?:Mental status change Type of Exam?:Initial Additional signs and symptoms?: XR CHEST PA/APon 02-16-2022 XR CHEST PA/AP EXAMINATION: XR CHEST PA/AP HISTORY: Altered mental status. COMPARISON: None. FINDINGS: The heart and mediastinum are unremarkable. The lungs are clear of any congestion or filtration. There is no pleural effusion. There is no pneumothorax. IMPRESSION: No acute cardiopulmonary disease. Workstation ID: [id number] Dictated by: CORY DIAZ on WedFeb 16, 2022 4:07:11 PM EDT Transcribed by: CORY DIAZ on WedFeb 16, 2022 4:07:11 PM EDT Finalized by: CORY DIAZ on WedFeb 16, 2022 4:07:11 PM EDT [facility] Comment on above: Order Comment: Injur y/Trauma or Illness?:Illness/Other How long have you had these symptoms (acute/chronic)?:Acute Reason for exam?:ams History of cancer?:n Surgeries, chemotherapy, or radiation?:n Type of Exam?:Initial Additional signs and symptoms?: Basic metabolic 2000 panelon 02-11-2022 Anion gap [Moles/Vol] 10 mmol/L Normal 6-18 [facility] Comment on above: Performed By: #### 2 4321-2 #### [facility] [place] [facility] [address] [place] [address] Calcium [Mass/Vol] 10.4 mg/dL High 8.9-10.3 [facility] Comment on above: Performed By: #### 2 4321-2 #### [facility] [place] [facility] [address] [place] [address] Chloride [Moles/Vol] 108 mmol/L High 98-107 [facility] Comment on above: Performed By: #### 2 4321-2 #### [facility] [place] [facility] [address] [place] [address] CO2 [Moles/Vol] 27 mmol/L Normal 22-32 [facility] Comment on above: Performed By: #### 2 4321-2 #### [facility] [place] [facility] [address] [place] [address] Creatinine [Mass/Vol] 1.28 mg/dL Normal 0.60-1.30 [facility] Comment on above: Performed By: #### 2 4321-2 #### [facility] [place] [facility] [address] [place] [address] GFR/1.73 sq M.predicted among non-blacks MDRD (S/P/Bld) [Vol rate/Area] 64 mL/min/{1.73_m2} Normal >=60 [facility] Comment on above: Performed By: #### 2 4321-2 #### [facility] [place] [facility] [address] [place] [address] Glucose [Mass/Vol] 165 mg/dL High 70-99 [facility] Comment on above: Performed By: #### 2 4321-2 #### [facility] [place] [facility] [address] [place] [address] Potassium [Moles/Vol] 4.1 mmol/L Normal 3.6-5.1 [facility] Comment on above: Performed By: #### 2 4321-2 #### [facility] [place] [facility] [address] [place] [address] Sodium [Moles/Vol] 145 mmol/L Normal 136-145 [facility] Comment on above: Performed By: #### 2 4321-2 #### [facility] [place] [facility] [address] [place] [address] Urea nitrogen [Mass/Vol] 19 mg/dL Normal 8-20 [facility] Comment on above: Performed By: #### 2 4321-2 #### [facility] [place] [facility] [address] [place] [address] Urea nitrogen/Creatinine [Mass ratio] 14.8 mg/mg Normal 12.0-20.0 [facility] Comment on above: Performed By: #### 2 4321-2 #### [facility] [place] [facility] [address] [place] [address] Hemogram and platelets WO di fferential panel (Bld)on 02-11-2022 Basophils (Bld) [#/Vol] 0.10 10*3/uL Normal 0.00-0.20 [facility] Comment on above: Performed By: #### 2 4317-0 #### [facility] [place] [facility] [address] [place] [address] Basophils/100 WBC (Bld) 0.5 % Normal 0.0-2.[address] [facility] Comment on above: Performed By: #### 2 4316-0 #### [facility] [place] [facility]) [facility] [address] [place] [address] Eosinophils (Bld) [#/Vol] 0.20 10*3/uL Normal 0.00-0.70 [facility] Comment on above: Performed By: #### 2 4316-0 #### [facility] [place] [facility] [address] [place] [address]60 Eosinophils/100 WBC (Bld) 1.9 % Normal 0.0-7.0 [facility] Comment on above: Performed By: #### 2 4316-0 #### [facility] ([facility]) LAB [address] [place] [address] Erythrocyte distribution width (RBC) [Ratio] 14.5 % Normal 11.0-14.8 [facility] Comment on above: Performed By: #### 2 4316-0 #### [facility] ([facility]) [address] [address] Hematocrit (Bld) [Volume fraction] 49.6 % High 39.0-49.0 [facility] Comment on above: Performed By: #### 2 7-0 #### [facility] ([facility]) LAB [address] [place] [address] Hemoglobin (Bld) [Mass/Vol] 15.6 g/dL Normal 13.5-17.5 [facility] Comment on above: Performed By: #### 2 7-0 #### [facility] ([facility]) LAB [address] [place] [address] Lymphocytes (Bld) [#/Vol] 1.50 10*3/uL Normal 1.00-4.80 [facility] Comment on above: Performed By: #### 2 7-0 #### [facility] ([facility] [address] [place] [address] Lymphocytes/100 WBC (Bld) 13.1 % Low 22.0-44.0 [facility] Comment on above: Performed By: #### 2 4317-0 #### [facility] [place] [facility] [address] [place] [address]96 MCH 29.0 pcg Normal 27.0-34.0 [facility] Comment on above: Performed By: #### 2 7-0 #### [facility] [place] [facility] [address] [place] [address] MCHC (RBC) [Mass/Vol] 31.4 g/dL Low 32.0-36.0 [facility] Comment on above: Performed By: #### 2 7-0 #### [facility] [place] [facility] [address] [place] [address] MCV (RBC) [Entitic vol] 92.5 fL Normal 80.0-97.0 M [facility] Comment on above: Performed By: #### 2 7-0 #### [facility] [place] [facility] [address] [place] [address] Monocytes (Bld) [#/Vol] 0.60 10*3/uL Normal 0.00-0.90 [facility] Comment on above: Performed By: #### 2 7-0 #### [facility] [place] [facility] [address] [place] [address] Monocytes/100 WBC (Bld) 5.4 % Normal 0.0-12.0 M [facility] Comment on above: Performed By: #### 2 7-0 #### [facility] [place] [facility] [address] [place] [address] Neutrophils Absolute 9.00 K/mcL High 1.80-7.70 [facility] Comment on above: Performed By: #### 2 7-0 #### [facility] [place] [facility] [address] [place] [address]69 Neutrophils/100 WBC (Bld) 79.1 % High 40.0-70.0 [facility] Comment on above: Performed By: #### 2 4317-0 #### [facility] [place] [facility] [address] [place] [address] Platelet mean volume (Bld) [Entitic vol] 9.5 fL Normal 6.2-12.1 [facility] Comment on above: Performed By: #### 2 4317-0 #### [facility] [place] [facility] [address] [place] [address]663 Platelets (Bld) [#/Vol] 206 10*3/uL Normal 142-424 [facility] Comment on above: Performed By: #### 2 4317-0 #### [facility] [place] [facility] [address] [place] [address] RBC (Bld) [#/Vol] 5.36 10*6/uL Normal 4.30-5.70 [facility] Comment on above: Performed By: #### 2 4317-0 #### [facility] [place] [facility] [address] [place] [address] WBC (Bld) [#/Vol] 11.4 10*3/uL High 4.6-10.2 [facility] Comment on above: Performed By: #### 2 4317-0 #### [facility] [place] [facility] [address] [place] [address] Acetaminophen LevelOrdered B y: Joon Atkinson on 12-12-2020 Acetaminophen [Mass/Vol] ug/mL [facility] Alcohol, MedicalOrdered By: Joon Atkinson on 12-12-2020 Ethanol [Mass/Vol] mg/dL <10.0 mg/dL [facility] Comment on above: Alcohol cutoff: <10. 00 mg/dL = None Detected CBC WITH AUTO DIFFERENTIALOr dered By: Joon Atkinson on 12-12-2020 Basophils (Bld) [#/Vol] 0.03 10*3/uL [facility] Basophils/100 WBC (Bld) 0.3 % [facility] Eosinophils (Bld) [#/Vol] 0.32 10*3/uL [facility] Eosinophils/100 WBC (Bld) 3.6 % [facility] Erythrocyte distribution width (RBC) [Entitic vol] 14.6 % 11.6 - 14.8 % [facility] Hematocrit (Bld) [Volume fraction] 42.0 % 41.0 - 53.0 % [facility] Hemoglobin (Bld) [Mass/Vol] 12.8 g/dL Low 13.5 - 17.5 g/dL [facility] Immature granulocytes (Bld) [#/Vol] 0.02 10*3/uL [facility] Immature granulocytes/100 WBC (Bld) 0.20 % [facility] Comment on above: The IG parameter is the percentage of metamyelocytes, myelocytes and promyelocytes. An immature granulocyte count (IG) of 1% or more suggests the possibility of infection, an IG count of 3% is very likely related to an infection. Interpretation and review of laboratory results Abnormal [facility] Lymphocytes (Bld) [#/Vol] 2.23 10*3/uL [facility] Lymphocytes/100 WBC (Bld) 24.9 % [facility] MCH (RBC) [Entitic mass] 28.1 pg 26.0 - 34.0 pg [facility] MCHC (RBC) [Mass/Vol] 30.5 g/dL Low 31.0 - 37.0 g/dL [facility] MCV (RBC) [Entitic vol] 92.1 fL 80.0 - 100.0 fL [facility] Monocytes (Bld) [#/Vol] 0.86 10*3/uL [facility] Monocytes/100 WBC (Bld) 9.6 % [facility] Neutrophils (Bld) [#/Vol] 5.49 10*3/uL [facility] Neutrophils/100 WBC (Bld) 61.4 % [facility] Nucleated RBC (Bld) [#/Vol] 0.00 10*3/uL [facility] Nucleated RBC/100 WBC (Bld) [Ratio] 0.0 % [facility] Platelet mean volume (Bld) [Entitic vol] 10.0 fL 9.4 - 12.4 fL [facility] Platelets (Bld) [#/Vol] 219 10*3/uL [facility] RBC (Bld) [#/Vol] 4.56 10*6/uL [facility] WBC (Bld) [#/Vol] 8.95 10*3/uL [facility] Comprehensive metabolic 2000 panelOrdered By: Joon Atkinson on 12-12-2020 Albumin [Mass/Vol] 4.3 g/dL 3.2 - 5.2 g/dL [facility] ALP [Catalytic activity/Vol] 140 U/L 40 - 150 U/L [facility] ALT [Catalytic activity/Vol] 10 U/L 0 - 40 U/L [facility] Anion gap [Moles/Vol] 14 mmol/L 10 - 2 0 mmol/L [facility] AST [Catalytic activity/Vol] 18 U/L 0 - 45 U/L [facility] Comment on above: Slightly Hemolyzed Bilirubin [Mass/Vol] mg/dL 0.0 - 1 .3 mg/dL [facility] Calcium [Mass/Vol] 9.5 mg/dL 8.4 - 10. 2 mg/dL [facility] Chloride [Moles/Vol] 102 mmol/L 98 - 10 8 mmol/L [facility] Creatinine [Mass/Vol] 1.02 mg/dL 0.50 - 1.30 [facility] GFR/1.73 sq M.predicted CKD-EPI (S/P/Bld) [Vol rate/Area] 99 >=60 mL/min/1.73 m2 [facility] Glucose [Mass/Vol] 98 mg/dL 65 - 99 mg/dL [facility] HCO3 [Moles/Vol] 29 mmol/L 21 - 32 mmol/L [facility] Interpretation and review of laboratory results Normal [facility] Potassium [Moles/Vol] 4.0 mmol/L 3.5 - 5.1 mmol/L [facility] Protein [Mass/Vol] 6.8 g/dL 6.0 - 8.0 g/dL [facility] Sodium [Moles/Vol] 141 mmol/L 135 - 145 mmol/L [facility] Urea nitrogen [Mass/Vol] 11 mg/dL 8 - 25 mg/dL [facility] Urea nitrogen/Creatinine [Mass ratio] 10.8 mg/mg [facility] The eGFR should be used for monitoring renal function only and not for medication dosing. [facility] GGTOrdered By: Joon Atkinson on 12-12-2020 Gamma glutamyl transferase [Catalytic activity/Vol] 24 U/L 11 - 51 U/L [facility] Mitchell TopOrdered By: Joon holly on 12-12-2020 Extra Tube Hold for add-ons. [facility] Comment on above: Auto resulted. Tiffin LevelOrdered By: Ganesh Atkinson on 12-12-2020 Tiffin [Moles/Vol] 0.6 mmol/L 0.6 - 1. 2 mmol/L [facility] Tiffin [Moles/Vol]Ordered B y: Joon Atkinson on 12-12-2020 Interpretation and review of laboratory results Normal [facility] No Panel InformationOrdered By: Joon Atkinson on 12-12-2020 [facility] Interpretation and review of laboratory results Normal [facility] Interpretation and review of laboratory results Normal [facility] Salicylate LevelOrdered By: Joon Atkinson on 12-12-2020 Salicylates [Mass/Vol] mg/dL Low 10.0 - 20.0 mg/dL [facility] Salicylates [Mass/Vol]Ordere d By: Joon Atkinson on 12-12-2020 Interpretation and review of laboratory results Abnormal [facility] TSH DL <= 0.005 mIU/L QnOrde red By: Joon Atkinson on 12-12-2020 TSH Qn 1.02 m[IU]/L [facility] VALPROIC ACID/DEPAKOTEon VALPROIC ACID/DEPAKOTE <10 Low 50-100 [facility] Comment on above: Result Comment: Resu lts reported at less than analytical measurment of instr ument. Performed By: #### C BC #### [facility] [place], [place] [address] Alcohol, Medicalon 0 Ethanol [Mass/Vol] mg/dL <10.0 mg/dL [facility] Comment on above: Alcohol cutoff: <10. 00 mg/dL = None Detected Basic Metabolic Panelon - Anion gap [Moles/Vol] 10 mmol/L 10 - 2 0 mmol/L [facility] Calcium [Mass/Vol] 9.7 mg/dL 8.4 - 10. 2 mg/dL [facility] Chloride [Moles/Vol] 102 mmol/L 98 - 10 8 mmol/L [facility] Creatinine [Mass/Vol] 1.12 mg/dL 0.50 - 1.30 [facility] GFR/1.73 sq M predicted among non-blacks MDRD (S/P/Bld) [Vol rate/Area] The eGFR should be used for monitoring renal function only and not for medication dosing. [facility] GFR/1.73 sq M.predicted CKD-EPI (S/P/Bld) [Vol rate/Area] 88 >=60 mL/min/1.73 m2 [facility] Glucose [Mass/Vol] 84 mg/dL 65 - 99 mg/dL [facility] HCO3 [Moles/Vol] 29 mmol/L 21 - 32 mmol/L [facility] Interpretation and review of laboratory results Abnormal [facility] Potassium [Moles/Vol] 4.2 mmol/L 3.5 - 5.1 mmol/L [facility] Sodium [Moles/Vol] 137 mmol/L 135 - 145 mmol/L [facility] Urea nitrogen [Mass/Vol] 8 mg/dL 8 - 25 mg/dL [facility] Urea nitrogen/Creatinine [Mass ratio] 7.1 mg/mg Low [facility] CBC WITH AUTO DIFFERENTIALon 06-20-2020 Basophils (Bld) [#/Vol] 0.05 10*3/uL [facility] Basophils/100 WBC (Bld) 0.4 % [facility] Eosinophils (Bld) [#/Vol] 0.34 10*3/uL [facility] Eosinophils/100 WBC (Bld) 2.9 % [facility] Erythrocyte distribution width (RBC) [Entitic vol] 14.6 % 11.6 - 14.8 % [facility] Hematocrit (Bld) [Volume fraction] 47.3 % 41 - 53 % [facility] Hemoglobin (Bld) [Mass/Vol] 14.4 g/dL 13.5 - 17.5 g/dL [facility] Immature granulocytes (Bld) [#/Vol] 0.05 10*3/uL [facility] Immature granulocytes/100 WBC (Bld) 0.40 % [facility] Comment on above: The IG parameter is the percentage of metamyelocytes, myelocytes and promyelocytes. An immature granulocyte count (IG) of 1% or more suggests the possibility of infection, an IG count of 3% is very likely related to an infection. Interpretation and review of laboratory results Abnormal [facility] Lymphocytes (Bld) [#/Vol] 2.03 10*3/uL [facility] Lymphocytes/100 WBC (Bld) 17.2 % [facility] MCH (RBC) [Entitic mass] 28.1 pg 26 - 34 pg [facility] MCHC (RBC) [Mass/Vol] 30.4 g/dL Low 31 - 37 g/dL [facility] MCV (RBC) [Entitic vol] 92.2 fL 80 - 100 fL [facility] Monocytes (Bld) [#/Vol] 0.85 10*3/uL [facility] Monocytes/100 WBC (Bld) 7.2 % [facility] Neutrophils (Bld) [#/Vol] 8.45 10*3/uL High [facility] Neutrophils/100 WBC (Bld) 71.9 % [facility] Nucleated RBC (Bld) [#/Vol] 0.00 10*3/uL [facility] Nucleated RBC/100 WBC (Bld) [Ratio] 0.0 % [facility] Platelet mean volume (Bld) [Entitic vol] 9.8 fL 9.4 - 12.4 fL [facility] Platelets (Bld) [#/Vol] 241 10*3/uL [facility] RBC (Bld) [#/Vol] 5.13 10*6/uL [facility] ealth WBC (Bld) [#/Vol] 11.77 10*3/uL [facility] DRUGS OF ABUSE SCREEN, URINE on 06-20-2020 Amphetamines Ql (U) None Detected None Detected [facility] Comment on above: Urine Amphetamine Cu toff: < 1000 ng/mL = None Detected Barbiturates Screen Ql (U) None Detected None Detected [facility] Comment on above: Urine Barbiturates C utoff: < 200 ng/mL = None Detected Benzodiazepines Ql (U) None Detected None Detec terry [facility] Comment on above: Urine Benzodiazepine Cutoff: < 200 ng/mL = None Detected Buprenorphine Ql (U) None Detected None Detecte d [facility] Comment on above: Urine Buprenorphine Cutoff: < 5 ng/mL = None Detected Cannabinoids Screen Ql (U) None Detected None Detected [facility] Comment on above: Urine Cannabinoids C utoff: < 50 ng/mL = None Detected Cocaine Ql (U) None Detected None Detected [facility] Comment on above: Urine Cocaine Cutoff : < 300 ng/mL = None Detected Fentanyl+Norfentanyl Screen Ql (U) None Detected None Detected [facility] Comment on above: Urine Fentanyl Cutof f: < 1 ng/mL = None Detected Interpretation and review of laboratory results Normal [facility] Methadone Screen Ql (U) None Detected None Dete cted [facility] Comment on above: Urine Methadone Cuto ff: < 300 ng/mL = None Detected Opiates Screen Ql (U) None Detected None Detect ed [facility] Comment on above: Urine Opiates Cutoff : < 300 ng/mL = None Detected Oxycodone Ql (U) None Detected None Detected [facility] Comment on above: Urine Oxycodone Cuto ff: < 100 ng/mL = None Detected Screen results should be used for treatment purposes only. [facility] Hepatic Function Panelon Albumin [Mass/Vol] 4.2 g/dL 3.2 - 5.2 g/dL [facility] ALP [Catalytic activity/Vol] 140 U/L 40 - 150 U/L [facility] ALT [Catalytic activity/Vol] 10 U/L 0 - 40 U/L [facility] AST [Catalytic activity/Vol] 11 U/L 0 - 45 U/L [facility] Bilirubin [Mass/Vol] mg/dL 0 - 1.3 mg/dL [facility] Bilirubin.conjugated [Mass/Vol] mg/dL 0 - 0.4 mg/dL [facility] Interpretation and review of laboratory results Normal [facility] Protein [Mass/Vol] 6.8 g/dL 6 - 8 g/dL [facility] Tiffin Levelon 06-20-2020 Tiffin [Moles/Vol] 1.2 mmol/L 0.6 - 1. 2 mmol/L [facility] Otheron 06-20-2020 Extra Tube Hold for add-ons. [facility] Comment on above: Auto resulted. Interpretation and review of laboratory results Normal [facility] TSH with Reflex Free T4on Interpretation and review of laboratory results Normal [facility] TSH Qn 1.01 m[IU]/L [facility] BASIC METABOLIC PANELon 05-28 Anion gap [Moles/Vol] 4 mmol/L Low 8-16 [facility] Comment on above: Performed By: #### M ETA #### [facility] [address] [place], [place] [address] Calcium [Mass/Vol] 9.1 mg/dL Normal 8.5-10.5 [facility] Comment on above: Performed By: #### M ETA #### [facility] [address] [facility] [place], [place] [address] Chloride [Moles/Vol] 108 mmol/L High 99-107 [facility] Comment on above: Performed By: #### M ETA #### [facility] [address] [facility] [address] [place] [address] CO2 [Moles/Vol] 30 mmol/L Normal 21-31 [facility] Comment on above: Performed By: #### M ETA #### [facility] [address] [facility] [place] [address] Creatinine [Mass/Vol] 0.93 mg/dL Normal 0.60-1.30 [facility] Comment on above: Performed By: #### M ETA #### [facility] [address] [facility] [place] [address] EGFRAA 104 mL/min/1.73m2 Normal [facility] Comment on above: Result Comment: GFR Ranges: Stage GFR Level Description 1 90mL/min or more Normal 2 60-89 mL/min Mild Decrease 3 30-59 mL/min Moderate Decrease 4 15-29 mL/min Severe Decrease 5 <15 mL/min Kidney Failure Performed By: #### M ETA #### [facility] [address] [facility] [place] [address] GFR/1.73 sq M.predicted MDRD (S/P/Bld) [Vol rate/Area] 86 mL/min/{1.73_m2} Normal [facility] Comment on above: Result Comment: GFR RANGES STAGE GFR LEVEL DESCRIPTION 1 90 mL/min or more NORMAL 2 60-89 mL/min MILD DECREASE 3 30-59 mL/min MODERATE DECREASE 4 15-29 mL/min SEVERE DECREASE 5 < 15mL/min KIDNEY FAILURE Performed By: #### M ETA #### [facility] [address] [facility] [place] [address] Glucose [Mass/Vol] 77 mg/dL Normal 70-105 [facility] Comment on above: Performed By: #### M ETA #### [facility] [address] [place], [place] [address] Potassium [Moles/Vol] 3.9 mmol/L Normal 3.5-5.3 [facility] Comment on above: Performed By: #### M ETA #### [facility] [address] [place], [place] [address] Sodium [Moles/Vol] 142 mmol/L Normal 135-145 [facility] Comment on above: Performed By: #### M ETA #### [facility] [address] [place] [address] Urea nitrogen [Mass/Vol] 7.0 mg/dL Normal 7.0-25.0 [facility] Comment on above: Performed By: #### M ETA #### [facility] [address] [place], [place] [address] Urea nitrogen/Creatinine [Mass ratio] 8.0 Ratio Normal 6.0-22.0 [facility] Comment on above: Performed By: #### M ETA #### [facility] [address] [place], [place] [address] CBC, AUTO DIFFon 06-07-2020 Basophils (Bld) [#/Vol] 0.0 x10 3/uL Normal 0.0-0.2 [facility] Comment on above: Performed By: #### C BC #### [facility] [address] [place], [place] [address] Basophils/100 WBC (Bld) 0.4 % Normal 0.0-2.0 [facility] Comment on above: Performed By: #### C BC #### [facility] [address] [facility] [place], [place] [address] Eosinophils (Bld) [#/Vol] 0.3 x10 3/uL Normal 0.0-0.7 [facility] Comment on above: Performed By: #### C BC #### [facility] [address] [place], [place] [address] Eosinophils/100 WBC (Bld) 3.3 % Normal 0.0-7.0 [facility] Comment on above: Performed By: #### C BC #### [facility] [address] [place] [address] Erythrocyte distribution width (RBC) [Ratio] 14.7 % Normal 11.0-14.8 [facility] Comment on above: Performed By: #### C BC #### [facility] [address] [place] [address] Hematocrit (Bld) [Volume fraction] 40 % Normal 39-49 [facility] Comment on above: Performed By: #### C BC #### [facility] [address] [place] [address] Hemoglobin (Bld) [Mass/Vol] 12.8 g/dL Low 13.5-17.5 [facility] Comment on above: Performed By: #### C BC #### [facility] [address] [place] [address] Lymphocytes (Bld) [#/Vol] 2.1 x10 3/uL Normal 1.0-4.8 [facility] Comment on above: Performed By: #### C BC #### [facility] [address] [place] [address] Lymphocytes/100 WBC (Bld) 21.7 % Low 22.0-44.0 [facility] Comment on above: Performed By: #### C BC #### [facility] [address] [place], [place] [address] MANUAL DIFFERENTIAL No Normal * [facility] Comment on above: Performed By: #### C BC #### [facility] [address] [place] [address] MCH (RBC) [Entitic mass] 28.2 pg Normal 27.0-34.0 [facility] Comment on above: Performed By: #### C BC #### [facility] [address] [place] [address] MCHC (RBC) [Mass/Vol] 32.4 g/dL Normal 32.0-36.6 [facility] Comment on above: Performed By: #### C BC #### [facility] [address] [place] [address] MCV (RBC) [Entitic vol] 87 fL Normal 76-90 F [facility] Comment on above: Performed By: #### C BC #### [facility] [address] [place] [address] Monocytes (Bld) [#/Vol] 0.7 x10 3/uL Normal 0.0-0.9 [facility] Comment on above: Performed By: #### C BC #### [facility] [address] [place] [address] Monocytes/100 WBC (Bld) 7.5 % Normal 0.0-12.0 F [facility] Comment on above: Performed By: #### C BC #### [facility] [address] [place] [address] Neutrophils (Bld) [#/Vol] 6.4 x10 3/uL Normal 1.8-7.7 [facility] Comment on above: Performed By: #### C BC #### [facility] [address] [place], [place] [address] Neutrophils/100 WBC (Bld) 67.1 % Normal 40.0-70.0 [facility] Comment on above: Performed By: #### C BC #### [facility] [address] [place] [address] Platelets (Bld) [#/Vol] 212 x10 3/uL Normal 142-424 [facility] Comment on above: Performed By: #### C BC #### [facility] [address] [place] [address] RBC (Bld) [#/Vol] 4.5 x10 6/uL Normal 3.9-5.2 [facility] Comment on above: Performed By: #### C BC #### [facility] [address] [place] [address] WBC (Bld) [#/Vol] 9.6 x10 3/uL Normal 4.6-10.2 [facility] Comment on above: Performed By: #### C BC #### [facility] [address] [place] [address] Acetaminophen Levelon 2019 Acetaminophen [Mass/Vol] <5.0 [facility] Alcohol, Medicalon 0 Ethanol [Mass/Vol] mg/dL <10.0 mg/dL [facility] Comment on above: Alcohol cutoff: <10. 00 mg/dL = None Detected CBC WITH AUTO DIFFERENTIALon 04-04-2020 Basophils (Bld) [#/Vol] 0.03 10*3/uL [facility] Basophils/100 WBC (Bld) 0.3 % [facility] Eosinophils (Bld) [#/Vol] 0.20 10*3/uL [facility] Eosinophils/100 WBC (Bld) 2.2 % [facility] Erythrocyte distribution width (RBC) [Entitic vol] 13.8 % 11.6 - 14.8 % [facility] Hematocrit (Bld) [Volume fraction] 43.9 % 41 - 53 % [facility] Hemoglobin (Bld) [Mass/Vol] 13.1 g/dL Low 13.5 - 17.5 g/dL [facility] Immature granulocytes (Bld) [#/Vol] 0.02 10*3/uL [facility] Immature granulocytes/100 WBC (Bld) 0.20 % [facility] Comment on above: The IG parameter is the percentage of metamyelocytes, myelocytes and promyelocytes. An immature granulocyte count (IG) of 1% or more suggests the possibility of infection, an IG count of 3% is very likely related to an infection. Interpretation and review of laboratory results Abnormal [facility] Lymphocytes (Bld) [#/Vol] 1.96 10*3/uL [facility] Lymphocytes/100 WBC (Bld) 21.7 % [facility] MCH (RBC) [Entitic mass] 28.4 pg 26 - 34 pg [facility] MCHC (RBC) [Mass/Vol] 29.8 g/dL Low 31 - 37 g/dL [facility] MCV (RBC) [Entitic vol] 95.2 fL 80 - 100 fL [facility] Monocytes (Bld) [#/Vol] 0.70 10*3/uL [facility] Monocytes/100 WBC (Bld) 7.7 % [facility] Neutrophils (Bld) [#/Vol] 6.14 10*3/uL [facility] Neutrophils/100 WBC (Bld) 67.9 % [facility] Nucleated RBC (Bld) [#/Vol] 0.00 10*3/uL [facility] Nucleated RBC/100 WBC (Bld) [Ratio] 0.0 % [facility] Platelet mean volume (Bld) [Entitic vol] 9.6 fL 9.4 - 12.4 fL [facility] Platelets (Bld) [#/Vol] 210 10*3/uL [facility] RBC (Bld) [#/Vol] 4.61 10*6/uL [facility] WBC (Bld) [#/Vol] 9.05 10*3/uL [facility] Comprehensive Metabolic Pane darlene 04-04-2020 Albumin [Mass/Vol] 3.6 g/dL 3.2 - 5.2 g/dL [facility] ALP [Catalytic activity/Vol] 135 U/L 40 - 150 U/L [facility] ALT [Catalytic activity/Vol] 9 U/L 0 - 40 U/L [facility] Anion gap [Moles/Vol] 12 mmol/L 10 - 2 0 mmol/L [facility] AST [Catalytic activity/Vol] 15 U/L 0 - 45 U/L [facility] Bilirubin [Mass/Vol] mg/dL 0 - 1.3 mg/dL [facility] Calcium [Mass/Vol] 9.2 mg/dL 8.4 - 10. 2 mg/dL [facility] Chloride [Moles/Vol] 106 mmol/L 98 - 10 8 mmol/L [facility] Creatinine [Mass/Vol] 0.70 mg/dL 0.50 - 1.30 [facility] GFR/1.73 sq M predicted among non-blacks MDRD (S/P/Bld) [Vol rate/Area] The eGFR should be used for monitoring renal function only and not for medication dosing. [facility] GFR/1.73 sq M.predicted CKD-EPI (S/P/Bld) [Vol rate/Area] 127 >=60 mL/min/1.73 m2 [facility] Glucose [Mass/Vol] 90 mg/dL 65 - 99 mg/dL [facility] HCO3 [Moles/Vol] 26 mmol/L 21 - 32 mmol/L [facility] Potassium [Moles/Vol] 4.0 mmol/L 3.5 - 5.1 mmol/L [facility] Protein [Mass/Vol] 5.9 g/dL Low 6 - 8 g/dL [facility] Sodium [Moles/Vol] 140 mmol/L 135 - 145 mmol/L [facility] Urea nitrogen [Mass/Vol] 5 mg/dL Low 8 - 25 mg/dL [facility] Urea nitrogen/Creatinine [Mass ratio] 7.1 mg/mg Low [facility] DRUGS OF ABUSE SCREEN, URINE on 04-04-2020 Amphetamines Ql (U) None Detected None Detected [facility] Comment on above: Urine Amphetamine Cu toff: < 1000 ng/mL = None Detected Barbiturates Screen Ql (U) None Detected None Detected [facility] Comment on above: Urine Barbiturates C utoff: < 200 ng/mL = None Detected Benzodiazepines Ql (U) None Detected None Detec terry [facility] Comment on above: Urine Benzodiazepine Cutoff: < 200 ng/mL = None Detected Buprenorphine Ql (U) None Detected None Detecte d [facility] Comment on above: Urine Buprenorphine Cutoff: < 5 ng/mL = None Detected Cannabinoids Screen Ql (U) None Detected None Detected [facility] Comment on above: Urine Cannabinoids C utoff: < 50 ng/mL = None Detected Cocaine Ql (U) None Detected None Detected [facility] Comment on above: Urine Cocaine Cutoff : < 300 ng/mL = None Detected Fentanyl+Norfentanyl Screen Ql (U) None Detected None Detected [facility] Comment on above: Urine Fentanyl Cutof f: < 1 ng/mL = None Detected Interpretation and review of laboratory results Normal [facility] Methadone Screen Ql (U) None Detected None Dete cted [facility] Comment on above: Urine Methadone Cuto ff: < 300 ng/mL = None Detected Opiates Screen Ql (U) None Detected None Detect ed [facility] Comment on above: Urine Opiates Cutoff : < 300 ng/mL = None Detected Oxycodone Ql (U) None Detected None Detected [facility] Comment on above: Urine Oxycodone Cuto ff: < 100 ng/mL = None Detected Screen results should be used for treatment purposes only. [facility] Otheron 04-04-2020 Interpretation and review of laboratory results Normal [facility] Interpretation and review of laboratory results Abnormal [facility] Salicylate Levelon 0 Salicylates [Mass/Vol] mg/dL Low 10 - 20 mg/dL [facility] TSHon 04-04-2020 Interpretation and review of laboratory results Normal [facility] TSH Qn 1.06 m[IU]/L [facility] URINALYSISon 04-04-2020 Bacteria Auto Ql (U) None Seen None Se en /hpf [facility] Bilirubin Ql (U) Negative Negative [facility] Clarity Refractometry automated (U) Clear Clear [facility] Color (U) Colorless Colorless, Yellow [facility] Glucose Auto test strip (U) [Mass/Vol] Negative Negative mg/dL [facility] Hemoglobin Auto test strip Ql (U) Negative Negative [facility] Interpretation and review of laboratory results Abnormal [facility] Ketones (U) [Mass/Vol] Negative Negat kyra mg/dL [facility] Leukocyte esterase Auto test strip Ql (U) Negative Negative [facility] Nitrite Auto test strip Ql (U) Negative Negative [facility] pH (U) 7.0 [pH] [facility] Protein (U) [Mass/Vol] Negative Negat kyra mg/dL [facility] RBC Auto (Urine sed) [#/Area] 2 [facility] Specific gravity (U) [Rel density] 1.003 Low [facility] Urobilinogen (U) [Mass/Vol] <2.0 <2.0 mg/dL [facility] WBC Auto (Urine sed) [#/Area] <1 [facility] Microscopic examination is performed on all urinalysis samples and only positive findings are reported. The test for blood on the chemical analytic portion of urinalysis may also be positive due to hemoglobinuria and myoglobinuria and if red blood cells are present they are quantified by microscopic examination. [facility] HEMOGLOBIN / HEMATOCRITon Hematocrit (Bld) [Volume fraction] 41 % Normal 39-49 [facility] Comment on above: Performed By: #### H H #### [facility] [address] [place] [address] Hemoglobin (Bld) [Mass/Vol] 13.3 g/dL Low 13.5-17.5 [facility] Comment on above: Performed By: #### H H #### [facility] [address] [place] [address] TEGRETOL (CARBAMAZEPINE)on 0 03-21-2020 TEGRETOL/CARBAMAZEPINE 7.5 ug/mL Normal 4.0-12.0 [facility] Comment on above: Performed By: #### T EG #### [facility] [address] [place] [address] VITAMIN D; 25 HYDROXY (FCMH) on 03-21-2020 VITAMIN D 25 HYDROXY 53 ng/mL Normal [facility] Comment on above: Result Comment: Defi cient <20 ng/mL Insufficient 20 to <30 ng/mL Sufficient 30 to 100 ng/mL Upper Safety Limit >100 ng/mL Deficient <20 ng/mL Insufficient 20 to <30 ng/mL Sufficient 30 to 100 ng/mL Upper Safety Limit >100 ng/mL Performed By: #### C BC #### [facility] [address] [facility]. [place], [place] [address] HEMOGLOBIN / HEMATOCRITon Hematocrit (Bld) [Volume fraction] 42 % Normal 39-49 [facility] Comment on above: Performed By: #### C BC #### [facility] [address] [facility] [place], [place] [address] Hemoglobin (Bld) [Mass/Vol] 13.8 g/dL Normal 13.5-17.5 [facility] Comment on above: Performed By: #### C BC #### [facility] [address] [place] [address]. [place], [place] [address] BASIC METABOLIC PANELon Anion gap [Moles/Vol] 8 mmol/L Normal 8-16 [facility] Comment on above: Performed By: #### M ETA #### [facility] [address] [facility] [place], [place] [address] Calcium [Mass/Vol] 9.3 mg/dL Normal 8.5-10.5 [facility] Comment on above: Performed By: #### M ETA #### [facility] [address] [place] [address]. [place], [place] [address] Chloride [Moles/Vol] 105 mmol/L Normal 99-107 [facility] Comment on above: Performed By: #### M ETA #### [facility] [address] [facility] [place], [place] [address] CO2 [Moles/Vol] 26 mmol/L Normal 21-31 [facility] Comment on above: Performed By: #### M ETA #### [facility] [address] [place] [address]. [place], [place] [address] Creatinine [Mass/Vol] 0.92 mg/dL Normal 0.60-1.30 [facility] Comment on above: Performed By: #### M ETA #### [facility] [address] [place], [place] [address] EGFRAA 106 mL/min/1.73m2 Normal [facility] Comment on above: Result Comment: GFR Ranges: Stage GFR Level Description 1 90mL/min or more Normal 2 60-89 mL/min Mild Decrease 3 30-59 mL/min Moderate Decrease 4 15-29 mL/min Severe Decrease 5 <15 mL/min Kidney Failure Performed By: #### M ETA #### [facility] [address] [place], [place] [address] GFR/1.73 sq M.predicted MDRD (S/P/Bld) [Vol rate/Area] 87 mL/min/{1.73_m2} Normal [facility] Comment on above: Performed By: #### M ETA #### [facility] [address] [place], [place] [address] Glucose [Mass/Vol] 62 mg/dL Low 70-105 [facility] Comment on above: Performed By: #### M ETA #### [facility] [address] [place], [place] [address] Potassium [Moles/Vol] 4.2 mmol/L Normal 3.5-5.3 [facility] Comment on above: Performed By: #### M ETA #### [facility] [address] [place], [place] [address] Sodium [Moles/Vol] 139 mmol/L Normal 135-145 [facility] Comment on above: Performed By: #### M ETA #### [facility] [address] [place], [place] [address] Urea nitrogen [Mass/Vol] 6.0 mg/dL Low 7.0-25.0 [facility] Comment on above: Performed By: #### M ETA #### [facility] [address] [place], [place] [address] Urea nitrogen/Creatinine [Mass ratio] 7.0 Ratio Normal 6.0-22.0 [facility] Comment on above: Performed By: #### M ETA #### [facility] [address] [place] [address] CBC, AUTO DIFFon 02-29-2020 Basophils (Bld) [#/Vol] 0.1 x10 3/uL Normal 0.0-0.2 [facility] Comment on above: Performed By: #### C BC #### [facility] [address] [place] [address] Basophils/100 WBC (Bld) 0.5 % Normal 0.0-2.0 [facility] Comment on above: Performed By: #### C BC #### [facility] [address] [place] [address] Eosinophils (Bld) [#/Vol] 0.3 x10 3/uL Normal 0.0-0.7 [facility] Comment on above: Performed By: #### C BC #### [facility] [address] [place] [address] Eosinophils/100 WBC (Bld) 2.4 % Normal 0.0-7.0 [facility] Comment on above: Performed By: #### C BC #### [facility] [address] [place] [address] Erythrocyte distribution width (RBC) [Ratio] 14.1 % Normal 11.0-14.8 [facility] Comment on above: Performed By: #### C BC #### [facility] [address] [place] [address] Hematocrit (Bld) [Volume fraction] 44 % Normal 39-49 [facility] Comment on above: Performed By: #### C BC #### [facility] [address] [place] [address] Hemoglobin (Bld) [Mass/Vol] 14.6 g/dL Normal 13.5-17.5 [facility] Comment on above: Performed By: #### C BC #### [facility] [address] [place] [address] Lymphocytes (Bld) [#/Vol] 2.7 x10 3/uL Normal 1.0-4.8 [facility] Comment on above: Performed By: #### C BC #### [facility] [address] [place] [address] Lymphocytes/100 WBC (Bld) 25.8 % Normal 22.0-44.0 [facility] Comment on above: Performed By: #### C BC #### [facility] [address] [place] [address] MANUAL DIFFERENTIAL No Normal * [facility] Comment on above: Performed By: #### C BC #### [facility] [address] [place] [address] MCH (RBC) [Entitic mass] 29.6 pg Normal 27.0-34.0 [facility] Comment on above: Performed By: #### C BC #### [facility] [address] [place] [address] MCHC (RBC) [Mass/Vol] 32.8 g/dL Normal 32.0-36.6 [facility] Comment on above: Performed By: #### C BC #### [facility] [address] [facility] [place], [place] [address] MCV (RBC) [Entitic vol] 90 fL Normal 76-90 F [facility] Comment on above: Performed By: #### C BC #### [facility] [address] [place], [place] [address] Monocytes (Bld) [#/Vol] 0.7 x10 3/uL Normal 0.0-0.9 [facility] Comment on above: Performed By: #### C BC #### [facility] [address] [place], [place] [address] Monocytes/100 WBC (Bld) 6.5 % Normal 0.0-12.0 [facility] Comment on above: Performed By: #### C BC #### [facility] [address] [place] [address] Neutrophils (Bld) [#/Vol] 6.9 x10 3/uL Normal 1.8-7.7 [facility] Comment on above: Performed By: #### C BC #### [facility] [address] [place], [place] [address] Neutrophils/100 WBC (Bld) 64.8 % Normal 40.0-70.0 [facility] Comment on above: Performed By: #### C BC #### [facility] [address] [place] [address] Platelets (Bld) [#/Vol] 225 x10 3/uL Normal 142-424 [facility] Comment on above: Performed By: #### C BC #### [facility] [address] [place] [address] RBC (Bld) [#/Vol] 4.9 x10 6/uL Normal 3.9-5.2 [facility] Comment on above: Performed By: #### C BC #### [facility] [address] [place] [address] WBC (Bld) [#/Vol] 10.7 x10 3/uL High 4.6-10.2 [facility] Comment on above: Performed By: #### C BC #### [facility] [address] [place] [address] HEMOGLOBIN A1Con 02-29-2020 HbA1c (Bld) [Mass fraction] 5.8 % Normal 4.0-6.2 [facility] Comment on above: Result Comment: Expe cted Values: 3-6% for non diabetic 6-9% for controlled diabetic >9% for poorly controlled diabetic Performed By: #### C BC #### [facility] [address] [place] [address] HbA1c (Bld) [Mass fraction] 120 mg/dL Normal [facility] Comment on above: Performed By: #### C BC #### [facility] [address] [place] [address] LITHIUM, SERUMon 02-29-2020 [place] [Moles/Vol] 1.2 mmol/L Normal 0.6-1.2 [facility] Comment on above: Performed By: #### L ITHIUM #### [facility] [address] [place] [address] LIVER PROFILEon 02-29-2020 Albumin [Mass/Vol] 4.0 g/dL Normal 3.3-5.7 [facility] Comment on above: Performed By: #### L IVER #### [facility] [address] [place] [address] Albumin/Globulin [Mass ratio] 2.0 {ratio} Normal 1.1-2.5 [facility] Comment on above: Performed By: #### L IVER #### [facility] [address] [place], [place] [address] ALP [Catalytic activity/Vol] 145 U/L High 34-124 [facility] Comment on above: Performed By: #### L IVER #### [facility] [address] [place] [address] ALT [Catalytic activity/Vol] 10 U/L Normal 7-52 [facility] Comment on above: Performed By: #### L IVER #### [facility] [address] [place] [address] AST [Catalytic activity/Vol] 11 U/L Low 13-39 [facility] Comment on above: Performed By: #### L IVER #### [facility] [address] [place] [address] Bilirubin [Mass/Vol] 0.05 mg/dL Normal 0.03-0.18 [facility] Comment on above: Performed By: #### L IVER #### [facility] [address] [place] [address] Bilirubin Ql (U) 0.3 mg/dL Normal 0.3-1.0 [facility] Comment on above: Performed By: #### L IVER #### [facility] [address] [place] [address] Globulin (S) [Mass/Vol] 2.0 g/dL Normal 1.7-3.8 [facility] Comment on above: Performed By: #### L IVER #### [facility] [address] [place] [address] Protein [Mass/Vol] 5.9 g/dL Low 6.0-8.9 [facility] Comment on above: Performed By: #### L IVER #### [facility] [address] [address] PSA-SCREENINGon 02-29-2020 PSA FOR SCREENING 0.635 ng/mL Normal 0.000-4.000 [facility] Comment on above: Performed By: #### C BC #### [facility] [address] [place] [address] TSH - THIRD GENERATIONon TSH Qn 1.115 uIU/mL Normal 0.340-5.600 [facility] Comment on above: Performed By: #### C BC #### [facility] [address] [place] [address] VITAMIN B12on 02-29-2020 Cobalamin (Vitamin B12) [Mass/Vol] 197 pg/mL Normal 180-914 [facility] Comment on above: Performed By: #### C BC #### [facility] [address] [place] [address] VITAMIN D; 25 HYDROXY (FCMH) on 02-29-2020 VITAMIN D 25 HYDROXY 49 ng/mL Normal [facility] Comment on above: Result Comment: Defi cient <20 ng/mL Insufficient 20 to <30 ng/mL Sufficient 30 to 100 ng/mL Upper Safety Limit >100 ng/mL Performed By: #### C BC #### [facility] [address] [place] [address] LIPID PROFILEon 02-26-2020 Cholesterol [Mass/Vol] 90 mg/dL Normal 25-200 [facility] Comment on above: Performed By: #### L IPID #### [facility] [address] [place] [address] Cholesterol in HDL [Mass/Vol] 32 mg/dL Normal 23-92 [facility] Comment on above: Performed By: #### L IPID #### [facility] [address] [place], [place] [address] Cholesterol in LDL [Mass/Vol] 33 mg/dL Low 66-178 [facility] Comment on above: Performed By: #### L IPID #### [facility] [address] [place] [address] Cholesterol in VLDL [Mass/Vol] 25 mg/dL Normal 0-40 [facility] Comment on above: Performed By: #### L IPID #### [facility] [address] [place] [address] Triglyceride [Mass/Vol] 124 mg/dL Normal 48-352 [facility] Comment on above: Performed By: #### L IPID #### [facility] [address] [place] [address] VALPROIC ACID/DEPAKOTEon VALPROIC ACID/DEPAKOTE <10 Low 50-100 [facility] Comment on above: Result Comment: Resu lts reported at less than analytical measurment of instr ument. Performed By: #### V ALP #### [facility] [address] [place] [address] BASIC METABOLIC PANELon - Anion gap [Moles/Vol] 6 mmol/L Low 8-16 [facility] Comment on above: Performed By: #### M ETA #### [facility] [address] [place] [address] Calcium [Mass/Vol] 9.1 mg/dL Normal 8.5-10.5 [facility] Comment on above: Performed By: #### M ETA #### [facility] [address] [place] [address] Chloride [Moles/Vol] 105 mmol/L Normal 99-107 [facility] Comment on above: Performed By: #### M ETA #### [facility] [address], [place] [address] CO2 [Moles/Vol] 30 mmol/L Normal 21-31 [facility] Comment on above: Performed By: #### M ETA #### [facility] [address] [place], [place] [address] Creatinine [Mass/Vol] 0.88 mg/dL Normal 0.60-1.30 [facility] Comment on above: Performed By: #### M ETA #### [facility] [address] [place], [place] [address] EGFRAA 112 mL/min/1.73m2 Normal [facility] Comment on above: Result Comment: GFR Ranges: Stage GFR Level Description 1 90mL/min or more Normal 2 60-89 mL/min Mild Decrease 3 30-59 mL/min Moderate Decrease 4 15-29 mL/min Severe Decrease 5 <15 mL/min Kidney Failure Performed By: #### M ETA #### [facility] [address] [place], [place] [address] GFR/1.73 sq M.predicted MDRD (S/P/Bld) [Vol rate/Area] 92 mL/min/{1.73_m2} Normal [facility] Comment on above: Performed By: #### M ETA #### [facility] [address] [place], [place] [address] Glucose [Mass/Vol] 59 mg/dL Low 70-105 [facility] Comment on above: Performed By: #### M ETA #### [facility] [address] [address] Potassium [Moles/Vol] 4.1 mmol/L Normal 3.5-5.3 [facility] Comment on above: Performed By: #### M ETA #### [facility] [address] [place] [address] Sodium [Moles/Vol] 141 mmol/L Normal 135-145 [facility] Comment on above: Performed By: #### M ETA #### [facility] [address] [place] [address] Urea nitrogen [Mass/Vol] 6.0 mg/dL Low 7.0-25.0 [facility] Comment on above: Performed By: #### M ETA #### [facility] [address] [place] [address] Urea nitrogen/Creatinine [Mass ratio] 7.0 Ratio Normal 6.0-22.0 [facility] Comment on above: Performed By: #### M ETA #### [facility] [address] [place] [address] CBC, AUTO DIFFon 12-11-2019 Basophils (Bld) [#/Vol] 0.0 x10 3/uL Normal 0.0-0.2 [facility] Comment on above: Performed By: #### C BC #### [facility] [address] [place] [address] Basophils/100 WBC (Bld) 0.3 % Normal 0.0-2.0 [facility] Comment on above: Performed By: #### C BC #### [facility] [address] [place] [address] Eosinophils (Bld) [#/Vol] 0.4 x10 3/uL Normal 0.0-0.7 [facility] Comment on above: Performed By: #### C BC #### [facility] [address], [place] [address] Eosinophils/100 WBC (Bld) 3.4 % Normal 0.0-7.0 [facility] Comment on above: Performed By: #### C BC #### [facility] [address] [place] [address] Erythrocyte distribution width (RBC) [Ratio] 14.0 % Normal 11.0-14.8 [facility] Comment on above: Performed By: #### C BC #### [facility] [address] [place] [address] Hematocrit (Bld) [Volume fraction] 43 % Normal 39-49 [facility] Comment on above: Performed By: #### C BC #### [facility] [address] [place] [address] Hemoglobin (Bld) [Mass/Vol] 14.3 g/dL Normal 13.5-17.5 [facility] Comment on above: Performed By: #### C BC #### [facility] [address] [place] [address] Lymphocytes (Bld) [#/Vol] 2.2 x10 3/uL Normal 1.0-4.8 [facility] Comment on above: Performed By: #### C BC #### [facility] [address] [place] [address] Lymphocytes/100 WBC (Bld) 20.6 % Low 22.0-44.0 [facility] Comment on above: Performed By: #### C BC #### [facility] [address] [place] [address] MCH (RBC) [Entitic mass] 29.8 pg Normal 27.0-34.0 [facility] Comment on above: Performed By: #### C BC #### [facility] [address] [facility] [place], [place] [address] MCHC (RBC) [Mass/Vol] 33.3 g/dL Normal 32.0-36.6 [facility] Comment on above: Performed By: #### C BC #### [facility] [address] [place] [address]. [place], [place] [address] MCV (RBC) [Entitic vol] 90 fL Normal 76-90 [facility] Comment on above: Performed By: #### C BC #### [facility] [address] [place] [address] Monocytes (Bld) [#/Vol] 0.9 x10 3/uL Normal 0.0-0.9 [facility] Comment on above: Performed By: #### C BC #### [facility] [address] [place] [address]. [place], [place] [address] Monocytes/100 WBC (Bld) 8.3 % Normal 0.0-12.0 [facility] Comment on above: Performed By: #### C BC #### [facility] [address] [place] [address] Neutrophils (Bld) [#/Vol] 7.2 x10 3/uL Normal 1.8-7.7 [facility] Comment on above: Performed By: #### C BC #### [facility] [address] [place] [address] Neutrophils/100 WBC (Bld) 67.4 % Normal 40.0-70.0 [facility] Comment on above: Performed By: #### C BC #### [facility] [address] [place] [address]. [place], [place] [address] Platelets (Bld) [#/Vol] 190 x10 3/uL Normal 142-424 [facility] Comment on above: Performed By: #### C BC #### [facility] [address] [facility] [place], [place] [address] RBC (Bld) [#/Vol] 4.8 x10 6/uL Normal 3.9-5.2 [facility] Comment on above: Performed By: #### C BC #### [facility] [address] [facility] [place], [place] [address] WBC (Bld) [#/Vol] 10.6 x10 3/uL High 4.6-10.2 [facility] Comment on above: Performed By: #### C BC #### [facility] [address] [facility] [place], [place] [address] BMPon 07-03-2018 Anion gap 3 molar conc 14 mmol/L Invalid Interpretation Code 10 - 20 mmol/L [facility] Calcium mass conc 10.1 mg/dL Invalid Interpretation Code 8.4 - 10.2 mg/dL [facility] Chloride molar conc 99 mmol/L Invalid Interpretation Code 98 - 108 mmol/L [facility] Creatinine mass conc 0.73 mg/dL Invalid Interpretation Code 0.5 - 1.3 mg/dL [facility] GFR/1.73 sq M predicted among non-blacks MDRD vol rate/area (S/P/Bld) The eGFR should be used for monitoring renal function only and not for medication dosing. Invalid Interpretation Code [facility] GFR/1.73 sq M.predicted CKD-EPI vol rate/area (S/P/Bld) 127 Invalid Interpretation Code >=60 mL/min/1.73 m2 [facility] Glucose mass conc 100 mg/dL High 65 - 99 mg/dL [facility] HCO3 molar conc 31 mmol/L Invalid Interpretation Code 21 - 32 mmol/L [facility] Interpretation and review of laboratory results Abnormal Invalid Interpretation Code [facility] Potassium molar conc 4.7 mmol/L Invalid Interpretation Code 3.5 - 5.1 mmol/L [facility] Sodium molar conc 139 mmol/L Invalid Interpretation Code 135 - 145 mmol/L [facility] Urea nitrogen mass conc 8 mg/dL Invalid Interpretation Code 8 - 25 mg/dL [facility] Urea nitrogen/Creatinine mass ratio 11.0 mg/mg Invalid Interpretation Code [facility] CBC WITH AUTO DIFFERENTIALon 07-03-2018 Basophils Auto #/vol (Bld) 0.03 10*3/uL Invalid Interpretation Code [facility] Basophils/100 WBC Auto (Bld) 0.3 % Invalid Interpretation Code [facility] Eosinophils Auto #/vol (Bld) 0.26 10*3/uL Invalid Interpretation Code [facility] Eosinophils/100 WBC Auto (Bld) 2.5 % Invalid Interpretation Code [facility] Erythrocyte distribution width Auto Entitic volume (RBC) 13.5 % Invalid Interpretation Code 11.6 - 14.8 % [facility] Hematocrit Auto Volume Fraction (Bld) 47.9 % Invalid Interpretation Code 41 - 53 % [facility] Hemoglobin mass conc (Bld) 15.1 g/dL Invalid Interpretation Code 13.5 - 17.5 g/dL [facility] Immature granulocytes #/vol (Bld) 0.02 10*3/uL Invalid Interpretation Code [facility] Immature granulocytes/100 WBC (Bld) 0.20 % Invalid Interpretation Code [facility] Comment on above: The IG parameter is the percentage of metamyelocytes, myelocytes, and promyelocytes. Interpretation and review of laboratory results Abnormal Invalid Interpretation Code [facility] Lymphocytes Auto #/vol (Bld) 1.70 10*3/uL Invalid Interpretation Code [facility] Lymphocytes/100 WBC Auto (Bld) 16.2 % Invalid Interpretation Code [facility] MCH Auto Entitic mass (RBC) 29.5 pg Invalid Interpretation Code 26 - 34 pg [facility] MCHC Auto mass conc (RBC) 31.5 g/dL Invalid Interpretation Code 31 - 37 g/dL [facility] MCV Auto Entitic volume (RBC) 93.6 fL Invalid Interpretation Code 80 - 100 fL [facility] Monocytes Auto #/vol (Bld) 0.63 10*3/uL Invalid Interpretation Code [facility] Monocytes/100 WBC Auto (Bld) 6.0 % Invalid Interpretation Code [facility] Neutrophils Auto #/vol (Bld) 7.86 10*3/uL High [facility] Neutrophils/100 WBC Auto (Bld) 74.8 % Invalid Interpretation Code [facility] Nucleated RBC #/vol (Bld) 0.00 10*3/uL Invalid Interpretation Code [facility] Nucleated RBC/100 WBC Ratio (Bld) 0.0 % Invalid Interpretation Code [facility] Platelet mean volume Auto Entitic volume (Bld) 10.1 fL Invalid Interpretation Code 9 - 15.5 fL [facility] Platelets Auto #/vol (Bld) 233 10*3/uL Invalid Interpretation Code [facility] RBC Auto #/vol (Bld) 5.12 10*6/uL Invalid Interpretation Code [facility] WBC Auto #/vol (Bld) 10.50 10*3/uL Invalid Interpretation Code [facility] CT ABDOMEN PELVIS WITHOUT CO NTRASTon 07-03-2018 CT ABDOMEN PELVIS WITHOUT CONTRAST EXAMINATION:CT ABDOMEN PELVIS WITHOUT CONTRASTHISTORY:lef t groin/llq painCOMPARISON:Andie elation is made with previous CT of the abdomen and pelvis with contrast 05/22/2012.TECHNIQU E:Spiral axial CT imaging of the abdomen and pelvis was performed at 3.75 mm intervals throughout. No oral or intravenous contrast was administered. Sagittal and coronal reconstructions are provided.Dose reduction techniques were achieved by using automated exposure control and/or adjustment of mA and/or kV according to patient size and/or use of iterative reconstruction technique.FINDINGS: There is a large calculus within the left renal pelvis measuring up to 1.3 x 0.7 cm in the axial plane. There is mild left-sided pelvocaliectasis, however fairly extensive stranding is present at the left peripelvic fat and about the proximal left ureter. I suspect there is some mild urothelial thickening also present at the left renal pelvis and UPJ. I suspect this stone is acting in a ball valve fashion producing intermittent obstruction. There appear to be additional tiny intracaliceal stones at both kidneys. No ureteral calculi are present. Ureters are decompressed. Bladder appears unremarkable.The liver, gallbladder, spleen, pancreas, adrenal glands and renal parenchyma demonstrate an unremarkable noncontrasted appearance. Colon is unremarkable. There is no wall thickening or pericolonic inflammation. Normal appendix is visualized. Small bowel is normal in caliber and course. Stomach is decompressed and unremarkable. There is no mass or adenopathy. No free air or free fluid is present. Bones are unremarkable. There is some mild degenerative change at the spine. The visualized lung bases are clear.IMPRESSION:Th ere is a large calculus within the left renal pelvis measuring up to 1.3 x 0.7 cm in the axial plane. There is some mild left-sided pelvocaliectasis. There is stranding of the peripelvic fat and I suspect there is some mild urothelial thickening at the left renal pelvis. I suspect the stone is acting in a ball valve-type fashion producing intermittent obstruction and irritation. There are additional tiny intracaliceal stones present in both kidneys. No further acute process is identified at the abdomen or pelvis.BAB/bdWorkst ation ID: [id number] by: CAROL RODRIGUEZ on WedJul 03, 2018 5:09:01 PM ESTTranscribed by: MARIEL LO on WedJul 03, 2018 5:45:05 PM ESTFinalized by: CAROL RODRIGUEZ on WedJul 03, 2018 10:55:16 PM EST Normal [facility] Comment on above: Order Comment: Reaso n for exam?:Pt arrives to ED via EMS from [place] with c/o left abdominal/flank pain x 1 month. Pt has hx of diabetes and stroke with right sided paralysis. EMS reports glucose 101. Pt denies N/V/D/C.Injury/Trauma or Illness?:Illness/OtherHow long have you had these symptoms (acute/chronic)?:AcuteType of Exam?:InitialAdditional signs and symptoms?:n CT Abdomen Pelvis Without Co ntraston 07-03-2018 [facility] 10:57 PM EST EXAMINATION: CT ABDOMEN PELVIS WITHOUT CONTRAST HISTORY: left groin/llq pain COMPARISON: Correlation is made with previous CT of the abdomen and pelvis with contrast 05/22/2012. TECHNIQUE: Spiral axial CT imaging of the abdomen and pelvis was performed at 3.75 mm intervals throughout. No oral or intravenous contrast was administered. Sagittal and coronal reconstructions are provided. Dose reduction techniques were achieved by using automated exposure control and/or adjustment of mA and/or kV according to patient size and/or use of iterative reconstruction technique. FINDINGS: There is a large calculus within the left renal pelvis measuring up to 1.3 x 0.7 cm in the axial plane. There is mild left-sided pelvocaliectasis, however fairly extensive stranding is present at the left peripelvic fat and about the proximal left ureter. I suspect there is some mild urothelial thickening also present at the left renal pelvis and UPJ. I suspect this stone is acting in a ball valve fashion producing intermittent obstruction. There appear to be additional tiny intracaliceal stones at both kidneys. No ureteral calculi are present. Ureters are decompressed. Bladder appears unremarkable. The liver, gallbladder, spleen, pancreas, adrenal glands and renal parenchyma demonstrate an unremarkable noncontrasted appearance. Colon is unremarkable. There is no wall thickening or pericolonic inflammation. Normal appendix is visualized. Small bowel is normal in caliber and course. Stomach is decompressed and unremarkable. There is no mass or adenopathy. No free air or free fluid is present. Bones are unremarkable. There is some mild degenerative change at the spine. The visualized lung bases are clear. IMPRESSION: There is a large calculus within the left renal pelvis measuring up to 1.3 x 0.7 cm in the axial plane. There is some mild left-sided pelvocaliectasis. There is stranding of the peripelvic fat and I suspect there is some mild urothelial thickening at the left renal pelvis. I suspect the stone is acting in a ball valve-type fashion producing intermittent obstruction and irritation. There are additional tiny intracaliceal stones present in both kidneys. No further acute process is identified at the abdomen or pelvis. [email or web address] Workstation ID: [id number] Invalid Interpretation Code [facility] EXAMINATION: CT ABDOMEN PELVIS WITHOUT CONTRAST HISTORY: left groin/llq pain COMPARISON: Correlation is made with previous CT of the abdomen and pelvis with contrast 05/22/2012. TECHNIQUE: Spiral axial CT imaging of the abdomen and pelvis was performed at 3.75 mm intervals throughout. No oral or intravenous contrast was administered. Sagittal and coronal reconstructions are provided. Dose reduction techniques were achieved by using automated exposure control and/or adjustment of mA and/or kV according to patient size and/or use of iterative reconstruction technique. FINDINGS: There is a large calculus within the left renal pelvis measuring up to 1.3 x 0.7 cm in the axial plane. There is mild left-sided pelvocaliectasis, however fairly extensive stranding is present at the left peripelvic fat and about the proximal left ureter. I suspect there is some mild urothelial thickening also present at the left renal pelvis and UPJ. I suspect this stone is acting in a ball valve fashion producing intermittent obstruction. There appear to be additional tiny intracaliceal stones at both kidneys. No ureteral calculi are present. Ureters are decompressed. Bladder appears unremarkable. The liver, gallbladder, spleen, pancreas, adrenal glands and renal parenchyma demonstrate an unremarkable noncontrasted appearance. Colon is unremarkable. There is no wall thickening or pericolonic inflammation. Normal appendix is visualized. Small bowel is normal in caliber and course. Stomach is decompressed and unremarkable. There is no mass or adenopathy. No free air or free fluid is present. Bones are unremarkable. There is some mild degenerative change at the spine. The visualized lung bases are clear. Invalid Interpretation Code Luv Rink [facility] There is a large calculus within the left renal pelvis measuring up to 1.3 x 0.7 cm in the axial plane. There is some mild left-sided pelvocaliectasis. There is stranding of the peripelvic fat and I suspect there is some mild urothelial thickening at the left renal pelvis. I suspect the stone is acting in a ball valve-type fashion producing intermittent obstruction and irritation. There are additional tiny intracaliceal stones present in both kidneys. No further acute process is identified at the abdomen or pelvis. BAB/bd Workstation ID: [id number] Invalid Interpretation Code Luv Rink [facility] Lactic Acid, Plasmaon 2018 Interpretation and review of laboratory results Abnormal Invalid Interpretation Code [facility] Lactate molar conc 2.4 mmol/L High 0.6 - 2 mmol/L [facility] Otheron 07-03-2018 Extra Tube Hold for add-ons. Invalid Interpretation Code [facility] Comment on above: Auto resulted. URINALYSISon 07-03-2018 Bacteria Auto Ql (U) None Seen Invalid Interpretation Code None Seen /hpf [facility] Bilirubin Ql (U) Negative Invalid Interpretation Code Negative [facility] Clarity Refractometry automated Nom (U) Hazy Abnormal Clear [facility] Color Auto Nom (U) Yellow Invalid Interpretation Code Colorless, Yellow [facility] Glucose Automated test strip mass conc (U) Negative Invalid Interpretation Code Negative mg/dL [facility] Hemoglobin Automated test strip Ql (U) Large Abnormal Negative [facility] Interpretation and review of laboratory results Abnormal Invalid Interpretation Code [facility] Ketones mass conc (U) Negative Invalid Interpretation Code Negative mg/dL [facility] Leukocyte esterase Automated test strip Ql (U) Small Abnormal Negative [facility] Mucus Auto #/area (Urine sed) Rare Invalid Interpretation Code None Seen, Rare /lpf [facility] Nitrite Automated test strip Ql (U) Negative Invalid Interpretation Code Negative [facility] pH Test strip (U) 7.0 [pH] Invalid Interpretation Code [facility] Protein mass conc (U) 100 Abnormal Negati ve mg/dL [facility] RBC Auto #/area (Urine sed) >180 High [facility] Specific gravity Automated test strip Relative Density (U) 1.013 Invalid Interpretation Code [facility] Urobilinogen Test strip Qn (U) <2.0 Invalid Interpretation Code <2.0 mg/dL [facility] WBC Auto #/area (Urine sed) 9 High [facility] Microscopic examination is performed on all urinalysis samples and only positive findings are reported. The test for blood on the chemical analytic portion of urinalysis may also be positive due to hemoglobinuria and myoglobinuria and if red blood cells are present they are quantified by microscopic examination. Invalid Interpretation Code [facility] XR CHEST AP/PA AND LATon XR CHEST AP/PA AND LAT EXAMINATION:Chest , two views, 07/03/2018 at 4:55 p.m.HISTORY:Cough.C OMPARISON: 2.TECHNIQUE:PA and lateral views of the chest.FINDINGS:The lateral view is limited by the patient's overlying arm. Cardiac size and pulmonary vascularity are normal. The lungs are grossly clear. The costophrenic angles are sharp. There is a small ossification projecting just inferior to the left acromion process.IMPRESSION: 1. Negative chest.TMB/trnWorkst ation ID: [id number] by: MAME ROWE on WedJul 03, 2018 5:02:00 PM ESTTranscribed by: MAE BULLARD on WedJul 03, 2018 5:42:10 PM ESTFinalized by: MAME ROWE on WedJul 03, 2018 5:47:12 PM EST Normal [facility] Comment on above: Order Comment: Reaso n for exam?:Pt arrives to ED via EMS from [place] with c/o left abdominal/flank pain x 1 month. Pt has hx of diabetes and stroke with right sided paralysis. EMS reports glucose 101. Pt denies N/V/D/C.Injury/Trauma or Illness?:Illness/OtherHow long have you had these symptoms (acute/chronic)?:AcuteHistory of cancer?:Obey chemotherapy, or radiation?:nType of Exam?:InitialAdditional signs and symptoms?:n 1. Negative chest. [employer] Workstation ID: [id number] Invalid Interpretation Code [facility], Rad In Kay Ortegaq - 07/03/2018 5:50 PM EST EXAMINATION: Chest, two views, 07/03/2018 at 4:55 p.m. HISTORY: Cough. COMPARISON: 05/25/2012. TECHNIQUE: PA and lateral views of the chest. FINDINGS: The lateral view is limited by the patient's overlying arm. Cardiac size and pulmonary vascularity are normal. The lungs are grossly clear. The costophrenic angles are sharp. There is a small ossification projecting just inferior to the left acromion process. IMPRESSION: 1. Negative chest. [employer] Workstation ID: [id number] Invalid Interpretation Code [facility] EXAMINATION: Chest, two views, 07/03/2018 at 4:55 p.m. HISTORY: Cough. COMPARISON: 05/25/2012. TECHNIQUE: PA and lateral views of the chest. FINDINGS: The lateral view is limited by the patient's overlying arm. Cardiac size and pulmonary vascularity are normal. The lungs are grossly clear. The costophrenic angles are sharp. There is a small ossification projecting just inferior to the left acromion process. Invalid Interpretation Code [facility] Vital Signs Date Time Vital Sign Value Performing Clinician Facility 12-06-2024 13:33-0400 Body temperature 97.9 [degF] Dr. Mame Bright MD Work Phone: [facility] 12-06-2024 13:33-0400 Diastolic blood pressure 82 mm[Hg] Dr. Mame Bright MD Work Phone: [facility] 12-06-2024 13:33-0400 Heart rate 76 /min Dr. Mame Bright MD Work Phone: [facility] 12-06-2024 13:33-0400 Respiratory rate 16 /min Dr. Mame Bright MD Work Phone: [facility] 12-06-2024 13:33-0400 SaO2% (BldA) [Mass fraction] 95 % Dr. Mame Bright MD Work Phone: [facility] 12-06-2024 13:33-0400 Systolic blood pressure 114 mm[Hg] Dr. Mame Bright MD Work Phone: [facility] 12-05-2024 23:25-0400 Body mass index (BMI) [Ratio] 34.4 kg/m2 Dr. Mame Bright MD Work Phone: [facility] 12-05-2024 23:25-0400 Body weight 103.[address] Mame Bright MD Work Phone: [facility] 12-05-2024 07:00-0400 Inhaled oxygen flow rate 2 L/min Dr. Mame Bright MD Work Phone: [facility] 12-04-2024 14:39-0400 Body height [address] Mame Bright MD Work Phone: [facility] 12-04-2024 14:14-0400 Body temperature 100.2 [degF] Dr. Mame Bright MD Work Phone: [facility] 12-04-2024 14:14-0400 Diastolic blood pressure 70 mm[Hg] Dr. Mame Bright MD Work Phone: [facility] 12-04-2024 14:14-0400 Heart rate 76 /min Dr. Mame Bright MD Work Phone: [facility] 12-04-2024 14:14-0400 Respiratory rate 16 /min Dr. Mame Bright MD Work Phone: [facility] 12-04-2024 14:14-0400 SaO2% (BldA) [Mass fraction] 93 % Dr. Mame Bright MD Work Phone: [facility] 12-04-2024 14:14-0400 Systolic blood pressure 109 mm[Hg] Dr. Mame Bright MD Work Phone: [facility] 12-04-2024 12:00-0400 Inhaled oxygen flow rate 10 L/min Dr. Mame Bright MD Work Phone: [facility] 12-04-2024 10:26-0400 Body height 172.[address] Mame Bright MD Work Phone: [facility] 12-04-2024 10:26-0400 Body mass index (BMI) [Ratio] 35.3 kg/m2 Dr. Mame Bright MD Work Phone: [facility] 12-04-2024 10:26-0400 Body weight 105.[address] Mame Bright MD Work Phone: [facility] 07-07-2022 17:00-0500 Body temperature 97.9 [degF] Alaina Baez MD Work Phone: [facility] 07-07-2022 17:00-0500 Diastolic blood pressure 75 mm[Hg] Alaina Baez MD Work Phone: [facility] 07-07-2022 17:00-0500 Heart rate 80 /min Alaina Baez MD Work Phone: [facility] 07-07-2022 17:00-0500 Respiratory rate 14 /min Alaina Baez MD Work Phone: [facility] 07-07-2022 17:00-0500 SaO2% (BldA) [Mass fraction] 96 % Alaina Baez MD Work Phone: [facility] 07-07-2022 17:00-0500 Systolic blood pressure 110 mm[Hg] Alaina Baez MD Work Phone: [facility] 06-30-2022 13:00-0500 Body height 175.3 cm Alaina Baez MD Work Phone: [facility] 06-30-2022 13:00-0500 Body mass index (BMI) [Ratio] 29.51 kg/m2 Alaina Baez MD Work Phone: [facility] 06-30-2022 13:00-0500 Body weight 90.7 kg Alaina Baez MD Work Phone: [facility] 05-18-2022 10:12-0500 Body temperature 100.2 [degF] Ronan Couette DO Work Phone: [facility] 05-18-2022 10:12-0500 Diastolic blood pressure 56 mm[Hg] Ronan Couette DO Work Phone: [facility] 05-18-2022 10:12-0500 Heart rate 68 /min Ronan Couette DO Work Phone: [facility] 05-18-2022 10:12-0500 Respiratory rate 18 /min Ronan Couette DO Work Phone: [facility] 05-18-2022 10:12-0500 SaO2% (BldA) [Mass fraction] 96 % Ronan Couette DO Work Phone: [facility] 05-18-2022 10:12-0500 Systolic blood pressure 115 mm[Hg] Ronan Couette DO Work Phone: [facility] 05-14-2022 18:38-0500 Body height 172.7 cm Ronan Couette DO Work Phone: [facility] 05-14-2022 18:38-0500 Body mass index (BMI) [Ratio] 34.97 kg/m2 Ronan Couette DO Work Phone: [facility] 05-14-2022 18:38-0500 Body weight 104.33 kg Ronan Couette DO Work Phone: [facility] 12-12-2020 12:49-0400 Diastolic blood pressure 68 mm[Hg] Joon Atkinson MD Work Phone: [facility] 12-12-2020 12:49-0400 Heart rate 72 /min Joon Atkinson MD Work Phone: [facility] 12-12-2020 12:49-0400 Respiratory rate 12 /min Joon Atkinson MD Work Phone: [facility] 12-12-2020 12:49-0400 SaO2% (BldA) [Mass fraction] 95 % Joon Atkinson MD Work Phone: [facility] 12-12-2020 12:49-0400 Systolic blood pressure 108 mm[Hg] Joon Atkinson MD Work Phone: [facility] 12-12-2020 01:30-0400 Body height 172.7 cm Joon Atkinson MD Work Phone: [facility] 12-12-2020 01:30-0400 Body mass index (BMI) [Ratio] 38.01 kg/m2 Joon Atkinson MD Work Phone: [facility] 12-12-2020 01:30-0400 Body temperature 97.59 [degF] Joon Atkinson MD Work Phone: [facility] 12-12-2020 01:30-0400 Body weight 113.4 kg Joon Atkinson MD Work Phone: [facility] 06-20-2020 20:39-0500 BP Diastolic 81 mm[Hg] Mike Rodriguez [facility] 06-20-2020 20:39-0500 BP Systolic 155 mm[Hg] Mike Rodriguez [facility] 06-20-2020 20:39-0500 Pulse (Heart Rate) 88 /min Mike Rodriguez [facility] 06-20-2020 20:39-0500 Pulse Oximetry 95 % Mike Rodriguez [facility] 06-20-2020 16:28-0500 BMI (Body Mass Index) 37.25 kg/m2 Mike Rodriguez [facility] 06-20-2020 16:28-0500 Body weight 111.13 kg Mike Rodriguez [facility] 06-20-2020 15:49-0500 Body Temperature 98.2 [degF] Mike Rodriguez [facility] 06-20-2020 15:49-0500 Height 172.7 cm Mike Rodriguez [facility] 06-20-2020 15:49-0500 Respiratory Rate 18 /min Mike Rodriguez [facility] 04-04-2020 16:56-0400 BP Diastolic 72 mm[Hg] Joon Atkinson [facility] 04-04-2020 16:56-0400 BP Systolic 120 mm[Hg] Joon Atkinson [facility] 04-04-2020 16:56-0400 Pulse (Heart Rate) 67 /min [facility] 04-04-2020 16:56-0400 Pulse Oximetry 98 % [facility] 04-04-2020 16:56-0400 Respiratory Rate 16 /min [facility] 07-03-2018 22:38-0500 Pulse (Heart Rate) 80 /min [facility] 07-03-2018 22:38-0500 Pulse Oximetry 98 % [facility] 07-03-2018 22:38-0500 Respiratory Rate 18 /min [facility] 07-03-2018 18:45-0500 BP Diastolic 85 mm[Hg] [facility] 07-03-2018 18:45-0500 BP Systolic 120 mm[Hg] [facility] 07-03-2018 16:02-0500 BMI (Body Mass Index) 31.32 kg/m2 [facility] 07-03-2018 16:02-0500 Body Temperature 98.29 [degF] [facility] 07-03-2018 16:02-0500 Height 172.7 cm [facility] 07-03-2018 16:02-0500 Weight 93.44 kg [facility] Encounters Encounter Date Encounter Type Care Provider Facility Start: 12-06-2024 Non-patient / Non-visit Dr. Michelle Angeles MD -[facility] Work Phone: Start: 12-05-2024 Non-patient / Non-visit Dr. Michelle Angeles MD -[facility] Work Phone: Start: 12-05-2024 Non-patient / Non-visit Dr. Ean mora DO -[facility] Start: 12-04-2024 ambulatory Thomas Harvey [facility]y:[facility] Start: 12-04-2024 End: 12-06-2024 Evaluation and management of inpatient Dr. Michelle Angeles MD -Intensive Care Unit Work Phone: Start: 07-31-2024 ambulatory [facility] Start: 07-31-2024 End: 08-01-2024 Evaluation and management of inpatient [facility] Facility:[facility] Start: 06-09-2022 End: 07-08-2022 Evaluation and management of inpatient [facility] Start: 06-08-2022 End: 07-08-2022 Evaluation and management of inpatient Alaina Baez MD Work Phone: [facility] Comment on above: Schizoaffective diso rder, bipolar type (CMS/HCC) (Primary Dx) Start: 06-08-2022 End: 06-08-2022 Emergency department patient visit LUZ CORRALES [facility] Start: 05-14-2022 Encounter for other general examination VIJAY KRISHNAMURTHY [facility] Start: 05-14-2022 End: 05-18-2022 Evaluation and management of inpatient UNLISTED PROVIDER [facility] Start: 05-14-2022 End: 05-18-2022 Admission to establishment Ronan Siegel DO Work Phone: [facility] Start: 05-14-2022 End: 05-18-2022 Evaluation and management of inpatient Ronan Siegel DO Work Phone: [facility] Comment on above: Medical clearance fo r psychiatric admission (Primary Dx); Agitation Start: 05-04-2022 End: 05-05-2022 Emergency department patient visit PHYSICIAN DERICK [facility] Start: 02-16-2022 End: 02-27-2022 Evaluation and management of inpatient JOSE DOMINGUEZ [facility] Start: 02-11-2022 ambulatory LUZ CORRALES [facility] Start: 12-12-2020 End: 12-12-2020 Emergency department patient visit Joon Atkinson MD Work Phone: [facility] Start: 09-04-2020 End: 09-04-2020 Orders Only Jennifer Corea Work Phone: [facility] Start: 07-18-2020 Patient encounter procedure MILLERD NWT [facility] Start: 06-20-2020 End: 06-20-2020 Emergency department patient visit Mike Rodriguez Work Phone: [facility] Comment on above: Agitation (Primary D x) Start: 06-07-2020 Patient encounter procedure HAYLEY [facility] Start: 04-04-2020 End: 04-04-2020 Emergency department patient visit Joon Atkinson Work Phone: [facility] Comment on above: Homicidal ideation ( Primary Dx); Bipolar 1 disorder (HCC) Start: 02-29-2020 Patient encounter procedure NISHA [facility] Start: 02-26-2020 Patient encounter procedure MEMPHISD [facility] Start: 01-10-2020 Patient encounter procedure MEMPHISSherif [facility] Start: 12-11-2019 Patient encounter procedure [facility] Start: 07-03-2018 End: 07-04-2018 Emergency department patient visit [facility] Start: 07-03-2018 End: 07-03-2018 Emergency department patient visit [facility] Work Phone: [facility] Comment on above: Kidney stone on left side (Primary Dx) Start: 05-31-2017 End: 05-31-2017 Ambulatory [facility] Procedures Date Procedure Procedure Detail Performing Clinician Start: 12-06-[address] Mame Bright MD Work Phone: Start: 12-05-2024 Plain chest X-ray Dr. Rahul Bright MD Work Phone: Start: 12-04-[address] Mame Bright MD Work Phone: Start: 12-04-[address] Jm Bright MD Work Phone: Start: 12-04-2024 Urnls dip stick/tabl et reagent auto microscopy Dr. Mame Bright MD Work Phone: Start: 12-04-2024 Carbon dioxide measu rement, partial pressure Dr. Mame Bright MD Work Phone: Start: 12-04-2024 Gases blood o2 satur ation only direct michael Dr. Mame Bright MD Work Phone: Start: 12-04-2024 Measurement of parti al pressure of oxygen in blood Dr. Mame Bright MD Work Phone: Start: 12-04-[address] Mame Bright MD Work Phone: Start: 12-04-[address] Mame Bright MD Work Phone: Start: 12-04-2024 Plain chest X-ray Dr. Rahul Bright MD Work Phone: Start: 06-30-2022 Comprehensive metabo lic panel Mame Wright MD Work Phone: Start: 06-16-2022 Cyanocobalamin vitamin b-12 Yaquelin Elkins MD Work Phone: Start: 06-16-2022 Drug screen quantita tive lithium Kalli [employer] DO Work Phone: Start: 06-16-2022 EXTRA TUBES Miri Rosado MD Work Phone: Start: 06-16-2022 LAVENDER - EDTA Miri Cat MD Work Phone: Start: 06-10-2022 POCT GLUCOSE BLOOD Braulio Albrecht MD Work Phone: Start: 06-10-2022 Drug tst prsmv instr mnt chem analyzers pr date Jayne Russo MD Work Phone: Start: 06-10-2022 Urnls dip stick/tabl et rgnt auto w/o microscopy Jayne Russo MD Work Phone: Start: 06-10-2022 POCT GLUCOSE BLOOD Nitinun henrietta Albrecht MD Work Phone: Start: 12-13-2022 Sars-cov-2 detection by dna/rna [employer] Work Phone: Start: 06-09-2022 Basic metabolic pane l calcium total [employer] DO Work Phone: Start: 06-09-2022 CBC W Auto Different ial panel - Blood [employer] Work Phone: Start: 06-09-2022 Drug screen quantita tive lithium [employer] DO Work Phone: Start: 06-09-2022 Ethanol [Mass/volume ] in Serum or Plasma [employer] DO Work Phone: Start: 06-09-2022 EXTRA TUBES Jayne paz MD Work Phone: Start: 06-09-2022 SST - GOLD Jayne paz MD Work Phone: Start: 05-18-2022 SARS-CoV-2 (COVID-19 ) RNA [Presence] in Respiratory specimen by DALIA with probe detection Vijay Krishnamurthy MD Work Phone: Start: 05-18-2022 Gluc bld gluc mntr d ev cleared fda spec home use Vijay Krishnamurthy MD Work Phone: Start: 05-17-2022 Gluc bld gluc mntr d ev cleared fda spec home use Vijay Krishnamurthy MD Work Phone: Start: 05-16-2022 Gluc bld gluc mntr d ev cleared fda spec home use Vijay Krishnamurthy MD Work Phone: Start: 05-14-2022 Drug tst prsmv instr mnt chem analyzers pr date Ronan Siegel DO Work Phone: Start: 05-14-2022 Urnls dip stick/tabl et reagent auto microscopy Ronan Siegel DO Work Phone: Start: 05-14-2022 Basic metabolic pane l calcium total Ronan Siegel DO Work Phone: Start: 05-14-2022 DARK GREEN TOP Velmae r S Couette DO Work Phone: Start: 05-14-2022 GOLD TOP Ronan Fermin Couette DO Work Phone: Start: 05-14-2022 LAVENDER TOP Ronan Fermin Couette DO Work Phone: Start: 05-14-2022 LIGHT BLUE TOP Velmae r S Couette DO Work Phone: Start: 05-14-2022 LIGHT GREEN TOP Velma adair S Couette DO Work Phone: Start: 05-14-2022 Lipid panel Vijay magdaleno MD Work Phone: Start: 05-14-2022 RAINBOW DRAW Ronan Fermin Couette DO Work Phone: Start: 05-14-2022 THYROID CASCADE Vijay Krishnamurthy MD Work Phone: Start: 05-14-2022 Lipid 1996 panel - S lulu or Plasma Ronan Siegel DO Work Phone: Start: 12-12-2020 Acetaminophen blood measurement Jamie Toney PA-C Work Phone: Start: 12-12-2020 Blood ethanol measurement Jamie Toney PA-C Work Phone: Start: 12-12-2020 End: 12-12-2020 Comprehensive metabolic panel Jamie ROMERO-C Work Phone: Start: 12-12-2020 Drug screen quantita tive lithium Jamie Toney PA-C Work Phone: Start: 12-12-2020 MITCHELL TOP Joon Atkinson MD Work Phone: Start: 12-12-2020 PINK TOP Joon Atkinson MD Work Phone: Start: 12-12-2020 RAINBOW DRAW Joon Atkinson MD Work Phone: Start: 12-12-2020 Salicylate blood measurement Jamie Toney PA-C Work Phone: Start: 06-20-2020 Drugs of abuse urine screening test Pamela Maldonado Work Phone: Start: 06-20-2020 Ethanol [Mass/volume ] in Serum or Plasma Pamela Maldonado Work Phone: Start: 06-20-2020 LIGHT GREEN TOP Mike Martin Rodriguez Work Phone: Start: 06-20-2020 Tiffin [Moles/volum e] in Serum or Plasma Pamela Maldonado Work Phone: Start: 06-20-2020 Basic metabolic 2000 panel - Serum or Plasma Pamela Maldonado Work Phone: Start: 06-20-2020 Complete blood count with white cell differential, automated Pamela Maldonado Work Phone: Start: 06-20-2020 Complete blood count with white cell differential, manual Pamela Maldonado Work Phone: Start: 06-20-2020 Hepatic function 200 0 panel - Serum or Plasma Pamela Maldonado Work Phone: Start: 06-20-2020 LIGHT BLUE TOP Mike Martin Rodriguez Work Phone: Start: 06-20-2020 RAINBOW DRAW Mike Dae Rodriguez Work Phone: Start: 06-20-2020 Thyrotropin [Units/v olume] in Serum or Plasma by Detection limit <= 0.005 mIU/L Pamela Maldonado Work Phone: Start: 04-04-2020 Acetaminophen [Mass/ volume] in Serum or Plasma Joon Atkinson Work Phone: Start: 04-04-2020 Complete blood count with white cell differential, automated Joon Atkinson Work Phone: Start: 04-04-2020 Complete blood count with white cell differential, manual Joon Atkinson Work Phone: Start: 04-04-2020 Comprehensive metabo lic 2000 panel - Serum or Plasma Joon Atkinson Work Phone: Start: 04-04-2020 Ethanol [Mass/volume ] in Serum or Plasma Joon Atkinson Work Phone: Start: 04-04-2020 Salicylates [Mass/vo lume] in Serum or Plasma Joon Atkinson Work Phone: Start: 04-04-2020 Thyrotropin [Units/v olume] in Serum or Plasma by Detection limit <= 0.005 mIU/L Joon Atkinson Work Phone: Start: 04-04-2020 Drugs of abuse urine screening test Joon Atkinson Work Phone: Start: 04-04-2020 Urinalysis Joon Atkinson Work Phone: Start: 07-03-2018 End: 07-03-2018 Urinalysis Fredo Bullard Lalitha Work Phone: Start: 07-03-2018 End: 07-03-2018 Standard chest X-ray Fredo clayton Work Phone: Start: 07-03-2018 End: 07-03-2018 Ct abdomen & pelvis w/o contrast material Fredo Doty Work Phone: Start: 07-03-2018 End: 07-03-2018 Basic metabolic 2000 panel - Serum or Plasma Fredo Doty Work Phone: Start: 07-03-2018 End: 07-03-2018 Complete blood count with white cell differential, automated Fredo Doty Work Phone: Start: 07-03-2018 End: 07-03-2018 Complete blood count with white cell differential, manual Fredo Doty Work Phone: Start: 07-03-2018 End: 07-03-2018 MITCHELL TOP Benny Mckeon Nilo Work Phone: Start: 07-03-2018 End: 07-03-2018 Lactate [Moles/volume] in Serum or Plasma Fredo Doty Work Phone: Start: 07-03-2018 End: 07-03-2018 LAVENDER TOP Benny Corcoran Work Phone: Start: 07-03-2018 End: 07-03-2018 LIGHT BLUE TOP Benny Corcoran Work Phone: Start: 07-03-2018 End: 07-03-2018 LIGHT GREEN TOP Benny Corcoran Work Phone: Start: 07-03-2018 End: 07-03-2018 MINT GREEN TOP Benny Corcoran Work Phone: Start: 07-03-2018 End: 07-03-2018 RAINBOW DRAW Benny Corcoran Work Phone: Plan of Treatment Date Care Activity Detail Author Start: 05-14-2027 Fasting lipid profile LIPID SCREENIN [facility] Start: 05-14-2027 Lipid panel Cholesterol [facility] (Lipid Panel) [facility] Start: 12-06-2024 Patient discharge [facility] Start: 12-05-2024 Following clinical pathway protocol [facility] Start: 12-05-2024 Enteric precautions [facility] Start: 12-05-2024 Enteric Bacteriology Enteric Bacteri ology [facility] Start: 12-05-2024 Care planning and pr oblem solving actions [facility] Start: 12-04-2024 Consultation [facility] Start: 12-04-2024 Following clinical pathway protocol [facility] Start: 12-04-2024 Oxygen therapy [facility] Start: 12-04-2024 Provision of activit y privileges [facility] Start: 12-04-2024 Assessment of risk o f venous thromboembolism [facility] Start: 12-04-2024 Insertion of cathete r into peripheral vein [facility] Start: 12-04-2024 Measuring intake and output [facility] Start: 12-04-2024 Providing care accor ding to standard [facility] Start: 12-04-2024 Referral to occupati onal therapist [facility] Start: 12-04-2024 Referral to service [facility] Start: 12-04-2024 Vital signs measurements [facility] Start: 12-04-2024 [facility] Start: 12-04-2024 Bacteria identified in Blood by Culture Blood Culture [facility] Start: 12-04-2024 Bacteria identified in Urine by Culture Urine Culture [facility] Start: 12-04-2024 Blood culture Blood Culture [facility] Start: 12-04-2024 Admission procedure [facility] Start: 12-04-2024 Hospital admission, emergency, from emergency room, medical nature [facility] Start: 12-04-2024 End: 12-04-2024 [facility] Start: 06-30-2023 Hypertension/CHF/CAD Annual BMP Blood Test Hypertension/CHF/CAD Annual BMP Blood Test [facility] Start: 02-16-2023 Urine screening for protein Diabetes: Annual Urine Protein Test (Microalbumin) [facility] Start: 06-08-2022 Adolescent depressio n screening assessment Depression Screening [facility] Start: 06-08-2022 Diabetes: Annual Ret ellen Eye Exam Diabetes: Annual Retina Eye Exam [facility] Start: 06-08-2022 Diabetic foot examination Diab etes: Annual Foot Exam [facility] Start: 06-08-2022 Hemoglobin A1c measurement Diabetes: Blood Sugar Control Test (HGBA1C) [facility] Start: 06-08-2022 Hepatitis C screening Hepatitis C Sc reening [facility] Start: 06-08-2022 HIV screening HIV Screening [facility] Start: 06-08-2022 Screening for malign ant neoplasm of colon Colorectal Cancer Screening: Colonoscopy [facility] Start: 06-08-2022 Social Influencers o f Health Screening Social Influencers of Health Screening [facility] Start: 02-26-2022 Influenza vaccination Influenza Vacc ine (#1) [facility] Start: 02-26-2022 Influenza vaccinatio n given INFLUENZA VACCINE (#1) [facility] Start: 11-11-2021 COVID-19 Vaccine (5 - Booster) COVID-19 Vaccine (5 - Booster) [facility] Start: 02-26-2021 Influenza vaccination Sequenti al Influenza Vaccine (Season Ended) [facility] Start: 02-27-2020 Influenza vaccinatio n given Sequential Influenza Vaccine (#1) [facility] Start: 01-31-2020 Administration of he rpes zoster vaccine Zoster Vaccines (1 of 2) [facility] Start: 01-31-2020 Screening for malign ant neoplasm of colon [facility] Start: 01-31-2020 Zoster vaccine hzv l kyra for subcutaneous use ZOSTER (SHINGLES) VACCINE (1 of 2) [facility] Start: 01-31-2020 Zoster Vaccines (1 of 2) Zoste r Vaccines (1 of 2) [facility] Start: 02-26-2018 Influenza vaccinatio n given SEQUENTIAL INFLUENZA VACCINE (#1) [facility] Start: 2015 Screening for malign ant neoplasm of colon [facility] Start: 11-19-2012 HbA1c (Bld) [Mass fraction] A1C [facility] Start: 11-19-2012 Hemoglobin A1c measurement A1C [facility] Start: 1989 DTaP,Tdap,and Td Vac cines (1 - Tdap) DTaP,Tdap,and Td Vaccines (1 - Tdap) [facility] Start: 01-31-1988 ANNUAL WELLNESS VISIT ANNUAL WELLNES S VISIT [facility] Start: 01-31-1988 Hepatitis C antibody , confirmatory test Hepatitis C Screening [facility] Start: 01-31-1988 Hepatitis C screening Hepatitis C Sc reening [facility] Start: 1986 COVID-19 Vaccine (1 of 2) COVI D-19 Vaccine (1 of 2) [facility] Start: 1985 HIV screening HIV Screening [facility] Start: 1982 COVID-19 Vaccine (1) COVID-19 Vaccin e (1) [facility] Start: 1982 Depression screening using PHQ-9 (Patient Health Questionnaire 9) score DEPRESSION SCREENING [facility] Start: 1981 Administration of diphtheria + tetanus + acellular pertussis vaccine DTAP/TDAP/TD VACCINE (1 - Tdap) [facility] Start: 01-31-1980 Albumin DL <= 20 mg/ L (U) [Mass/Vol] Urine Microalbumin [facility] Start: 01-31-1980 Diabetic foot examination Foot Exam [facility] Start: 01-31-1980 Microalbumin measure ment, urine, quantitative Urine Microalbumin [facility] Start: 01-31-1980 Ophthalmic examinati on and evaluation Ophthalmology Exam [facility] Start: 01-31-1976 Pneumococcal Vaccine : Ped or At-Risk (1 of 2 - PPSV23) Pneumococcal Vaccine: Ped or At-Risk (1 of 2 - PPSV23) [facility] Start: 01-31-1976 Pneumococcal Vaccine : Pediatrics (0 to 5 Years) and At-Risk Patients (6 to 64 Years) (1 - PCV) Pneumococcal Vaccine: Pediatrics (0 to 5 Years) and At-Risk Patients (6 to 64 Years) (1 - PCV) [facility] Start: 1973 History and physical examination, annual for health maintenance Wellness Visit [facility] Start: 1970 COVID-19 VACCINE (#1) COVID-19 VACCI NE (#1) [facility] Start: 1970 Hepatitis B Vaccines (1 of 3 - 3-dose series) Hepatitis B Vaccines (1 of 3 - 3-dose series) [facility] Start: 1970 Low dose computed tomography of chest without contrast Low-dose CT Lung Cancer Screen [facility] Start: 1970 Prostate specific an tigen measurement PSA Level [facility] Start: 1970 Tetanus vaccination [facility] End: 04-04-2020 12 lead ECG ECG 12 Lead ECG STAT Once for 1 Occurrences starting 04/04/2020 until 04/04/2020 [facility] Comment on above: Once for 1 Occurrenc es starting 04/04/2020 until 04/04/2020 Bacteria identified in Sputum by Respiratory culture [facility] Glucose [Mass/volume ] in Serum or Plasma POCT glucose Point of Care Testing Routine 0600 until discontinued starting 05/16/2022 [facility] Comment on above: 0600 until discontin ued starting 05/16/2022 End: 05-18-2022 Tiffin level Tiffin level Lab Routine One Time for 1 Occurrences starting 05/18/2022 until 05/18/2022 [facility] Work Phone: Comment on above: One Time for 1 Occur rences starting 05/18/2022 until 05/18/2022 Microscopic observat ion [Identifier] in Unspecified specimen by Gram stain [facility] Nucleic acid assay [facility] Patient Education ED Dyspnea [facility] Work Phone: Patient referral [facility] Work Phone: [facility] [place] [facility] [place] [facility] Add-On 05/15/2022 until discontinued, 1 completed [facility] Work Phone: Comment on above: 05/15/2022 until dis continued, 1 completed Urine culture [facility] Immunizations Immunization Date Immunization Notes Care Provider Easton chapa 04-09-2011 influenza virus vacc ine, unspecified formulation Alaina Baez MD Work Phone: [facility] Payers Date Payer Category Payer Self-pay 2022 Medicaid [id number] 2017 Medicaid [id number] 2017 Medicaid MEDICAID [facility] [id number] 2017-Present [id number] 1970 Unknown [id number] [id number]2 1970 Unknown [id number] 2.16.840.1.804504.3.579.2.597 1970 Unknown [id number] 2.16.840.1.775586.3.579.2.597 1970 Unknown [id number] 2.16.840.1.403542.3.579.2.597 1970 Unknown [id number] 2.16.840.1.670925.3.579.2.597 1970 Unknown [id number] 2.16.840.1.183361.3.579.2.597 1970 Unknown [id number] 2.16.840.1.437539.3.579.2.597 1970 Unknown [id number] 2.16.840.1.693744.3.579.2.297 1970 Unknown [id number] 2.16.840.1.661841.3.579.2.900 1970 Unknown [id number] 2.16.840.1.823641.3.579.2.900 1970 Unknown [id number] 2.16.840.1.286788.3.579.2.1143 1970 Unknown [id number] 2.16.840.1.979516.3.579.2.1143 Unknown [id number] 2.16.840.1.562991.3.579.2.462 Unknown [id number] 2.16.840.1.119279.3.579.2.462 Unknown [id number] 2.16.840.1.403020.3.579.2.462 Unknown [id number] 2.16.840.1.262752.3.579.2.462 Unknown [id number] 2.16.840.1.384595.3.579.2.462 Unknown [id number] 2.16.840.1.858565.3.579.2.462 Unknown [id number] 2.16.840.1.748716.3.579.2.462 Unknown [id number] [id number] Social History Date Type Detail Facility Start: 01-13-2017 End: 12-04-2024 Tobacco smoking status MEIS Current every day smoker [facility] Work Phone: Start: 01-13-2017 End: 06-09-2022 Cigarettes smoked current (pack per day) - Reported [facility] Work Phone: Start: 1970 Sex Assigned At Not on file [facility] Work Phone: Start: 04-04-2020 End: 12-12-2020 Tobacco use and exposure Never used [facility] Start: 04-04-2020 Alcohol intake Current drinke r of alcohol (finding) [facility] Start: 01-11-2017 Alcohol Comment drink every co uple of days, pt lives in a fci and this rn unsure if this is correct [facility] Start: 05-04-2022 End: 06-08-2022 Exposure to SARS-CoV-2 (event) Not sure [facility] Start: 12-12-2020 End: 06-09-2022 Alcohol intake Ex-drinker (finding) [facility] History of tobacco use Cigarette Smoker [facility] [employer] Start: 1970 Sex Assigned At Male [facility] Goals Date Patient Goal Desired Activity /State Functional Status Date Assessment Result Facility 12-06-2024 Functional status Chair [facility] Work Phone: Mental Status Date Assessment Result Facility 12-06-2024 Cognitive function Voice/Name [facility] Work Phone: Clinical Notes 12-12-2020 to 12-06-2024 Note Date & Type Note Facility 12-06-2024 Discharge summary Note Date/Time December 06, 2024 1:34 pm [facility] Medical Records Department [address] [place] [address] [facility] MR#: [id number] Acct: [id number] Name: RIGO GARCIA Rep #:[id number] : 1970 54 From: Michelle Angeles MD PCP: Dr. Mame Bright MD Status:ADM IN Certification of patient admission REQUIRED AT TIME OF ADMISSION. I CERTIFY THAT POST-HOSPITAL ECF SERVICES ARE REQUIRED TO BE GIVEN ON AN IN-PATIENT BASIS BECAUSE OF THE ABOVE NAMED PATIENT'S NEED FOR DETENTION CARE ON A CONTINUING BASIS FOR THE CONDITION(S) FOR WHICH HE/SHE WAS RECEIVING IN-PATIENT HOSPITAL SERVICES PRIOR TO HIS/HER TRANSFER TO THE [facility]. 12/06/24 1334<Electronically signed by Michelle Angeles MD> Diet Diet Order/Speech Therapy: INPATIENT Hospital Diet / Speech Therapy Order(s) 12/04/24 14:45 Diabetic [Diet: Consistent Carb - Calorie Controlled] How many daily calories?: 1999 calorie Routine Orders/Code Status Enema Type: Fleetz Enema Frequency: Daily PRN Suppository Type: Dulcolax 10mg DC O2, CPAP, BIPAP needs Home O2 Discharge instructions: No Therapies Weight Bearing: Weight bearing as tolerated Problem/Diagnosis (1) Acidosis, lactic: Status: Acute Code(s): E87.20 - Acidosis, unspecified (2) Hypotension: Status: Acute Code(s): I95.9 - Hypotension, unspecified (3) Acute hypoxic respiratory failure: Status: Acute Code(s): J96.01 - Acute respiratory failure with hypoxia Plan #Acute on chronic hypoxic and hypercapnic respiratory failure due to COPD exacerbation and probable aspiration pneumonia * Weaned off of oxygen and now on room air. * Breathing treatments bronchodilators. On IV Solu-Medrol. Titrate oxygen to maintain saturation above 90%. * Transfer out of ICU to [facility] today. * #Type II diabetes mellitus: Hold oral meds. ISS. accuchecks ACHS #Lactic acidosis: Lactic acid was 5.1. Likely due to hypoxia. Should improve as hypoxia resolves #Schizophrenia and bipolar disorder: On Abilify and buspirone. On ativan prn #Hyperlipidemia: On statin #Depression; on trintellix. DVT prophylaxis: lovenox CODE STATUS: Full code Disposition: Anticipate DC home back tomorrow. I want to watch him overnight tomake sure that he remains on room air and his shortness of breath does not recur. Allergies/Procedures Done in Hospital Allergies ibuprofen Allergy (Verified 07/31/24 11:57) Rash Penicillins Allergy (Verified 07/31/24 11:57) RASH Procedures: None Type of Care/Length of Stay Estimated LOS: Convalescent Care Less Than 30 days Type of Care Needed: Skilled Rehab Potential: Fair Prognosis: Fair Additional Orders/Day of Discharge Day of Discharge: 12/06/24 Discharge Plan Admission Admit Date/Time: 12/04/24 13:06 Primary Reason for Your Visit: acute hypoxic respiratory failure Attending Provider: Michelle Angeles Primary Care Provider: Mame Bright Consulting Providers: Thomas Martinez; Judah Salazar; aDvid Aguilar; Ean Quintana; Fredo Griffin; Kris Lauren; Osmany Bronson; Kasie Bhagat; Taiwo Knapp; Raz Freedman; Waldo Shepard; Makayla French; Patricia Vargas; Hesham,Mirna; Jordana,Tawanda; Ani,Ernie; MorganHussain; Jose Mejias; Jayleen Manning; Makeda Leary; Tre Ye; Karel Tejeda; Zion Tobias Instructions Patient Instructions: ED Dyspnea Discharge Orders/Prescriptions Prescriptions: New sulfamethoxazole-trimethoprim [Bactrim DS] 800-160 mg tablet 1 tab PO BID Qty: 10 0RF Continued Trintellix 20 mg tablet 20 mg PO DAILY sennosides-docusate sodium [Colace 2-In-1] 8.6-50 mg tablet 1 tab-cap PO DAILY aripiprazole [Abilify] 15 mg tablet 15 mg PO DAILY aspirin [Adult Low Dose Aspirin] 81 mg tablet,delayed release (DR/EC) 81 mg PO DAILY lorazepam [Ativan] 1 mg tablet 1 mg PO Q8H buspirone 10 mg tablet 10 mg PO TID gabapentin 100 mg capsule 200 mg PO TID trazodone 50 mg tablet 50 mg PO QHS cholecalciferol (vitamin D3) 1,250 mcg (50,000 unit) capsule 1,250 mcg PO QWEEK Rx Instructions: QMONDAY metformin 1,000 mg tablet 1,000 mg PO BID atorvastatin 20 mg tablet 20 mg PO QHS [employer] Heartburn Chew 300 mg (750 mg) tablet,chewable 600 mg PO Q6H PRN (Reason: heartburn) acetaminophen [Aminofen] 325 mg tablet 650 mg PO Q4H PRN (Reason: fever or pain) Referrals / Follow Up: Mame Bright MD [Primary Care Provider] - Within 1 Week Disposition Disposition (needs filled in before D/C Order can be placed): Intermediate Facility 12/06/24 1334 <Electronically signed by Michelle Angeles MD> Cosigner Signature (if applicable): CC: Dr. Judah Salazar MD; Dr. Thomas Martinez MD; Dr. David Aguilar MD; Dr. Fredo Griffin MD; Dr. Ean Quintana DO; Dr. Kris Lauren MD; Dr. Osmany Bronson MD; Dr. Taiwo Knapp MD; Dr. Raz Freedman MD; Dr. Waldo Shepard MD; Dr. Makayla French MD; Dr. Patricia Vargas MD; Dr. Mirna Dahl MD; Dr. Ernie Law MD; Dr. Tawanda Silveira MD; Dr. Hussain Mora MD; Dr. Makeda Leary MD; Dr. Jayleen Manning MD; Dr. Jose Mejias DO; Dr. Mame Bright MD; Dr. Tre Ye DO; Dr. Karel Tejeda MD; Dr. Zion Tobias MD; Dr. Karlo MD ~ [facility] Work Phone: [phone] 974-714906-11-2025 Discharge summary [facility] Medical Records Department [address] [place] [address] [facility] MR#: [id number] Acct: [id number] Name: RIGO GARCIA Rep #:[id number] : 1970 54 From: Michelle Angeles MD PCP: Dr. Mame Bright MD Status:ADM IN Certification of patient admission REQUIRED AT TIME OF ADMISSION. I CERTIFY THAT POST-HOSPITAL ECF SERVICES ARE REQUIRED TO BE GIVEN ON AN IN-PATIENT BASIS BECAUSE OF THE ABOVE NAMED PATIENT'S NEED FOR DETENTION CARE ON A CONTINUING BASIS FOR THE CONDITION(S) FOR WHICH HE/SHE WAS RECEIVING IN-PATIENT HOSPITAL SERVICES PRIOR TO HIS/HER TRANSFER TO THE [facility]. 12/06/24 1334 Diet Diet Order/Speech Therapy: INPATIENT Hospital Diet / Speech Therapy Order(s) 12/04/24 14:45 Diabetic [Diet: Consistent Carb - Calorie Controlled] How many daily calories?: 1999 calorie Routine Orders/Code Status Enema Type: Fleetz Enema Frequency: Daily PRN Suppository Type: Dulcolax 10mg DC O2, CPAP, BIPAP needs Home O2 Discharge instructions: No Therapies Weight Bearing: Weight bearing as tolerated Problem/Diagnosis (1) Acidosis, lactic: Status: Acute Code(s): E87.20 - Acidosis, unspecified (2) Hypotension: Status: Acute Code(s): I95.9 - Hypotension, unspecified (3) Acute hypoxic respiratory failure: Status: Acute Code(s): J96.01 - Acute respiratory failure with hypoxia Plan #Acute on chronic hypoxic and hypercapnic respiratory failure due to COPD exacerbation and probableaspiration pneumonia * Weaned off of oxygen and now on room air. * Breathing treatments bronchodilators. On IV Solu-Medrol. Titrate oxygen to maintain saturation above 90%. * Transfer out of ICU to [facility] today. * #Type II diabetes mellitus: Hold oral meds. ISS. accuchecks ACHS #Lactic acidosis: Lactic acid was 5.1. Likely due to hypoxia. Should improve as hypoxia resolves #Schizophrenia and bipolar disorder: On Abilify and buspirone. On ativan prn #Hyperlipidemia: On statin #Depression; on trintellix. DVT prophylaxis: lovenox CODE STATUS: Full code Disposition: Anticipate DC home back tomorrow. I want to watch him overnight tomake sure that he remains on room air and his shortness of breath does not recur. Allergies/Procedures Done in Hospital Allergies ibuprofen Allergy (Verified 07/31/24 11:57) Rash Penicillins Allergy (Verified 07/31/24 11:57) RASH Procedures: None Type of Care/Length of Stay Estimated LOS: Convalescent Care Less Than 30 days Type of Care Needed: Skilled Rehab Potential: Fair Prognosis: Fair Additional Orders/Day of Discharge Day of Discharge: 12/06/24 Discharge Plan Admission Admit Date/Time: 12/04/24 13:06 Primary Reason for Your Visit: acute hypoxic respiratory failure Attending Provider: Michelle Angeles Primary Care Provider: Mame Bright Consulting Providers: Thomas Martinez; Judah Salazar; David Aguilar; Ean Quintana; Fredo Griffin; Kris Lauren; Osmany Bronson; Kasie Bhagat; Taiwo Knapp; Raz Freedman; Waldo Shepard; Makayla French; Patricia Vargas; Mirna Dahl; Jordana,Tawanda; Ernie Law; Hussain Mora; Jose Mejias; Jayleen Manning; Makeda Leary; Tre Ye; Karel Tejeda; Zion Tobias Instructions Patient Instructions: ED Dyspnea Discharge Orders/Prescriptions Prescriptions: New sulfamethoxazole-trimethoprim [Bactrim DS] 800-160 mg tablet 1 tab PO BID Qty: 10 0RF Continued Trintellix 20 mg tablet 20 mg PO DAILY sennosides-docusate sodium [Colace 2-In-1] 8.6-50 mg tablet 1 tab-cap PO DAILY aripiprazole [Abilify] 15 mg tablet 15 mg PO DAILY aspirin [Adult Low Dose Aspirin] 81 mg tablet,delayed release (DR/EC) 81 mg PO DAILY lorazepam [Ativan] 1 mg tablet 1 mg PO Q8H buspirone 10 mg tablet 10 mg PO TID gabapentin 100 mg capsule 200 mg PO TID trazodone 50 mg tablet 50 mg PO QHS cholecalciferol (vitamin D3) 1,250 mcg (50,000 unit) capsule 1,250 mcg PO QWEEK Rx Instructions: QMONDAY metformin 1,000 mg tablet 1,000 mg PO BID atorvastatin 20 mg tablet 20 mg PO QHS [employer] Heartburn Chew 300 mg (750 mg) tablet,chewable 600 mg PO Q6H PRN (Reason: heartburn) acetaminophen [Aminofen] 325 mg tablet 650 mg PO Q4H PRN (Reason: fever or pain) Referrals / Follow Up: Mame Bright MD [Primary Care Provider] - Within 1 Week Disposition Disposition (needs filled in before D/C Order can be placed): Intermediate Facility 12/06/24 1334 Cosigner Signature (if applicable): CC: Dr. Judah Salazar MD; Dr. Thomas Martinez MD; Dr. David Aguilar MD; Dr. Fredo Griffin MD; Dr. Ean Quintana DO; Dr. Kris Lauren MD; Dr. Osmany Bronson MD; Dr. Taiwo Knapp MD; Dr. Raz Freedman MD; Dr. Waldo Shepard MD; Dr. Makayla French MD; Dr. Patricia Vargas MD; Dr. Mirna Dahl MD; Dr. Ernie Law MD; Dr. Tawanda Silveira MD; Dr. Hussain Mora MD; Dr. Makeda Leary MD; Dr. Jayleen Manning MD; Dr. Jose Mejias DO; Dr. Mame Bright MD; Dr. Tre Ye DO; Dr. Karel Tejeda MD; Dr. Zion Tobias MD; Dr. Karlo MD ~ [facility]06-11-2025 [facility] Medical Records Department [address] [place] [address] Discharge Summary 12/06/24 1334 MR#: [id number] Acct: [id number] Name: RIGO GARCIA Rep #: [id number] : 1970 54 From: Michelle Angeles MD PCP: Dr. Mame Bright MD Status:DIS IN Location: [facility] [id number] Providers Date of Admission: 12/04/24 Date of Discharge: 12/06/24 Primary Care Physician: Dr. Mame Bright MD Consultations 12/04/24 15:00 Consult: Hearings Reporter / Pulmonary Medicine Routine Consulting Provider: Intensivists/Pulmonary Med Reason for Consult: acute hypoxic respiratory failure, aspiration pneumonia EMERGENT Consult: No MD Notified: Yes Date Notified: 12/04/24 Time Notified: 15:00 Method of Notification: Text Reason For Visit: ACUTE HYPOXIC ANAD HYPERCAPNIC RESPIRATORY FAILURE Diagnosis Discharge Diagnosis (1) Acidosis, lactic: Status: Acute Code(s): E87.20 - Acidosis, unspecified (2) Hypotension: Status: Acute Code(s): I95.9 - Hypotension, unspecified (3) Acute hypoxic respiratory failure: Status: Acute Code(s): J96.01 - Acute respiratory failure with hypoxia Plan #Acute on chronic hypoxic and hypercapnic respiratory failure due to COPD exacerbation and probable aspiration pneumonia * Weaned off of oxygen and now on room air. * Breathing treatments bronchodilators. On IV Solu-Medrol. Titrate oxygen to maintain saturation above 90%. * Transfer out of ICU to [facility] today. * #Type II diabetes mellitus: Hold oral meds. ISS. accuchecks ACHS #Lactic acidosis: Lactic acid was 5.1. Likely due to hypoxia. Should improve as hypoxia resolves #Schizophrenia and bipolar disorder: On Abilify and buspirone. On ativan prn #Hyperlipidemia: On statin #Depression; on trintellix. DVT prophylaxis: lovenox CODE STATUS: Full code Disposition: Anticipate DC home back tomorrow. I want to watch him overnight to make sure that he remains on room air and his shortness of breath does not recur. Medications at Discharge Home Medications acetaminophen 325 mg tablet (Aminofen) 650 mg PO Q4H PRN fever or pain 07/31/24 aripiprazole 15 mg tablet (Abilify) 15 mg PO DAILY SCHIZOPHRENIA 07/31/24 aspirin 81 mg tablet,delayed release (Adult Low Dose Aspirin) 81 mg PO DAILY HTN 07/31/24 atorvastatin 20 mg tablet 20 mg PO QHS HYPERLIPIDEMIA 07/31/24 buspirone 10 mg tablet 10 mg PO TID BIPOLAR 07/31/24 calcium carbonate ([employer] Heartburn Chew) 600 mg PO Q6H PRN heartburn 07/31/24 cholecalciferol (vitamin D3) 1,250 mcg (50,000 unit) capsule 1,250 mcg PO QWEEK SUPPLEMENT 07/31/24 gabapentin 100 mg capsule 200 mg PO TID NEUROPATHIC PAIN 07/31/24 lorazepam 1 mg tablet (Ativan) 1 mg PO Q8H agitation 07/31/24 metformin 1,000 mg tablet 1,000 mg PO BID DM 07/31/24 sennosides 8.6 mg-docusate sodium 50 mg tablet (Colace 2-In-1) 1 tab-cap PO DAILY CONSTIPATION 07/31/24 trazodone 50 mg tablet 50 mg PO QHS BIPOLAR 07/31/24 vortioxetine 20 mg tablet (Trintellix) 20 mg PO DAILY DEPRESSION 07/31/24 sulfamethoxazole 800 mg-trimethoprim 160 mg tablet (Bactrim DS) 1 tab PO BID #10 tabs 12/06/24 Hospital Course Operations None Procedures None Summary of Care Provided Minutes Spent on Discharge: 47 Hospital Course: RIGO GARCIA, is a 54 M with a PMH as outlined who presents from his SNF on 12/04/2024 with a complaint of nausea and vomiting. HE lives in [facility] where he resides. HE was brought in from the SNF due to fever and tachypnea as well as tachycardia. HE had nausea and vomiting today and became acutely short of breath. He denied any chest pain, and was also febrile. He was saturating at 72% on room air and slightly placed on nasal cannula and the EMS called. He was brought him in the ED. Vitals in the ED were blood pressure of 99/64, pulse rate of 101, respiratory rate of 12 and temperature 101.7 ???F. He was saturating at 91% on 10 L of oxygen. CBC showed hemoglobin of 13.2 with WBC of 11.9 and platelets of 236. INR is 1. ABG done showed pH of 7.36 with oxygen saturation of 91% and pO2 of 66 as well as pCO2 of 57.9. Chemistry showed sodium of 141 potassium of 4.3 and bicarb of 24.1. Creatinine was 1.15. Lactic acid was 5.1. ALP was 148. AST, ALT and total bilirubin were normal. Urinalysis showed no evidence of UTI. Chest x-ray showed no acute cardiopulmonary pathology. EKG showed no acute ST changes. Urinalysis showed no evidence of UTI. He was admitted to be managed for acute hypoxic and hypercapnic respiratory failure due to COPD exacerbation with probable aspiration pneumonia. He was initially admitted to the ICU. He was requiring 10 L of oxygen the patient was rapidly weaned off of the oxygen onto room air. He was transferred out of the ICU and felt much better. Respiratory panel was negative as well as respiratory culture. His urine cultures however did come back for [place] (more content not included)...[facility]06-10-2025 Progress note Author Michelle Medina Hospital Note Date/Time December 05, 2024 5:50 pm [facility] Medical Records Department [address] [place] [address] Progress Note 12/05/24 1419 MR#: [id number] Acct: [id number] Name: RIGO GARCIA Rep #:[id number] : 1970 54 From: Michelle Angeles MD PCP: Dr. Mame Bright MD Status:ADM IN Location: [place] [address]- Subjective Subjective Patient seen and examined. He feels much better today. He is on room air. He is feeling much better. Review of symptoms otherwise negative. He has remainedhemodynamically stable. Objective Data Objective Data Vital Signs: Vital Signs Temp Pulse Resp BP Pulse Ox O2 Del Method O2 Flow Rate 97.6 F L 67 22 H 127/108 H 93 Room Air 2 12/05/24 12:00 12/05/24 14:00 12/05/24 14:00 12/05/24 14:00 12/05/24 12:00 12/05/24 12:30 12/05/24 07:00 Oxygen Flow Rate (L/min) 2 Oxygen Delivery Method Room Air Weight: 227 lb 4.8 oz Body Mass Index (BMI) 34.4 Intake & Output: Intake and Output for Last 24 Hours 12/03/24 12/04/24 12/05/24 23:59 23:59 23:59 Intake Total 4825.83 / 4825.83 1004.17 / 1004.17 Output Total 1750 / 1750 2500 / 2500 Balance 3075.83 / 3075.83 -1495.83 / -1495.83 Lab / Micro Data 12/05/24 05:55 12/05/24 05:55 Labs: Laboratory Results - last 24 hr 12/04/24 15:10: Lactic Acid < 1.0 12/05/24 05:55: WBC 11.7 H, RBC 4.35 L, Hgb 11.5 L, Hct 37.5 L, MCV 86.2, MCH 26.4 L, MCHC 30.7 L, RDW Std Deviation 46.1 H, RDW Coeff of Thomas 14.7 H, Plt Count 217, MPV 10.4, Immature Gran % (Auto) 0.300, Neut % (Auto) 78.4 H, Lymph %(Auto) 11.6 L, Turner % (Auto) 9.4, Eos % (Auto) 0.1, Baso % (Auto) 0.2, Absolute Neuts (auto) 9.1 H, Absolute Lymphs (auto) 1.35, Nucleated RBC % 0, Sodium 141, Potassium 4.9, Chloride 108, Carbon Dioxide 24.2, Anion Gap 9, BUN 17, Creatinine 0.94, Estim Creat Clear Calc 104.55, Est GFR (MDRD) Non-Af 96, BUN/Creatinine Ratio 18.3, Glucose 147 H, Calcium 8.6 Micro: Microbiology 12/04/24 11:31 Urine, Clean Catch Urine Culture - Preliminary Gram negative winter 12/04/24 11:20 Mucosa - Nose Respiratory Panel (PCR) - Final Radiography Diagnostic Testing: Radiology Impression Chest X-Ray 12/05/24 07:22 IMPRESSION: Interval appearance of mild bilateral basilar atelectatic pulmonary changes. Reading Location: [place] [address] Physical Exam Const alert and no apparent distress Orientation / Consciousness: lethargic HEENT normocephalic and head/scalp atraumatic Eyes PERRL and EOMs intact bilaterally Neck supple and no JVD Resp normal respiratory effort, no use of accessory muscles and clear to auscultationbilaterally Resp Narrative: mildly diminished breath sounds bibasally, no wheezes or crackles. now on room air. Cardio regular rate, regular rhythm and no murmurs GI normal to inspection, nondistended, normoactive bowel sounds, soft to palpation and non-tender Extremity normal to inspection, full ROM and no clubbing, cyanosis or edema Neuro moves all extremities Neuro Narrative: flat affect Sensorium / Orientation: awake and alert Motor Exam: general weakness Psych Psych Narrative: flat affect, moves all extremities spontaneously Mood & Affect: flat affect Assessment & Plan Assessment/Plan (1) Acidosis, lactic: (2) Hypotension: (3) Acute hypoxic respiratory failure: PLAN: Plan #Acute on chronic hypoxic and hypercapnic respiratory failure due to COPD exacerbation and probable aspiration pneumonia * Weaned off of oxygen and now on room air. * Breathing treatments bronchodilators. On IV Solu-Medrol. Titrate oxygen to maintain saturation above 90%. * Transfer out of ICU to [facility] today. * #Type II diabetes mellitus: Hold oral meds. ISS. accuchecks ACHS #Lactic acidosis: Lactic acid was 5.1. Likely due to hypoxia. Should improve as hypoxia resolves #Schizophrenia and bipolar disorder: On Abilify and buspirone. On ativan prn #Hyperlipidemia: On statin #Depression; on trintellix. DVT prophylaxis: lovenox CODE STATUS: Full code Disposition: Anticipate DC home back tomorrow. I want to watch him overnight tomake sure that he remains on room air and his shortness of breath does not recur. Charges/Coding Visit Charges Inpatient E&M: 35363 Subs Hosp L2 12/05/24 1750 <Electronically signed by Michelle Angeles MD> Michelle Angeles MD Cosigner Signature (if applicable): CC: ~ Signed [facility] Work Phone: [phone]) 175-539806-10-2025 Progress note [facility] Medical Records Department [address] [place] [address] Progress Note 12/05/24 1419 MR#: [id number] Acct: [id number] Name: RIGO GARCIA Rep #:[id number] : 1970 54 From: Michelle Angeles MD PCP: Dr. Mame Bright MD Status:ADM IN Location: [place] [address] Subjective Subjective Patient seen and examined. He feels much better today. He is on room air. He is feeling much better. Review of symptoms otherwise negative. He has remainedhemodynamically stable. Objective Data Objective Data Vital Signs: Vital Signs Temp Pulse Resp BP Pulse Ox O2 Del Method O2 Flow Rate 97.6 F L 67 22 H 127/108 H 93 Room Air 2 12/05/24 12:00 12/05/24 14:00 12/05/24 14:00 12/05/24 14:00 12/05/24 12:00 12/05/24 12:30 12/05/24 07:00 Oxygen Flow Rate (L/min) 2 Oxygen Delivery Method Room Air Weight: 227 lb 4.8 oz Body Mass Index (BMI) 34.4 Intake & Output: Intake and Output for Last 24 Hours 12/03/24 12/04/24 12/05/24 23:59 23:59 23:59 Intake Total 4825.83 / 4825.83 1004.17 / 1004.17 Output Total 1750 / 1750 2500 / 2500 Balance 3075.83 / 3075.83 -1495.83 / -1495.83 Lab / Micro Data 12/05/24 05:55 12/05/24 05:55 Labs: Laboratory Results - last 24 hr 12/04/24 15:10: Lactic Acid < 1.0 12/05/24 05:55: WBC 11.7 H, RBC 4.35 L, Hgb 11.5 L, Hct 37.5 L, MCV 86.2, MCH 26.4 L, MCHC 30.7 L, RDW Std Deviation 46.1 H, RDW Coeff of Thomas 14.7 H, Plt Count 217, MPV 10.4, Immature Gran % (Auto) 0.300, Neut % (Auto) 78.4 H, Lymph %(Auto) 11.6 L, Turner % (Auto) 9.4, Eos % (Auto) 0.1, Baso % (Auto)0.2, Absolute Neuts (auto) 9.1 H, Absolute Lymphs (auto) 1.35, Nucleated RBC % 0, Sodium 141, Potassium 4.9, Chloride 108, Carbon Dioxide 24.2, Anion Gap 9, BUN 17, Creatinine 0.94, Estim Creat ClearCalc 104.55, Est GFR (MDRD) Non-Af 96, BUN/Creatinine Ratio 18.3, Glucose 147 H, Calcium 8.6 Micro: Microbiology 12/04/24 11:31 Urine, Clean Catch Urine Culture - Preliminary Gram negative winter 12/04/24 11:20 Mucosa - Nose Respiratory Panel (PCR) - Final Radiography Diagnostic Testing: Radiology Impression Chest X-Ray 12/05/24 07:22 IMPRESSION: Interval appearance of mild bilateral basilar atelectatic pulmonary changes. Reading Location: [place] [address] Physical Exam Const alert and no apparent distress Orientation / Consciousness: lethargic HEENT normocephalic and head/scalp atraumatic Eyes PERRL and EOMs intact bilaterally Neck supple and no JVD Resp normal respiratory effort, no use of accessory muscles and clear to auscultationbilaterally Resp Narrative: mildly diminished breath sounds bibasally, no wheezes or crackles. now on room air. Cardio regular rate, regular rhythm and no murmurs GI normal to inspection, nondistended, normoactive bowel sounds, soft to palpation and non-tender Extremity normal to inspection, full ROM and no clubbing, cyanosis or edema Neuro moves all extremities Neuro Narrative: flat affect Sensorium / Orientation: awake and alert Motor Exam: general weakness Psych Psych Narrative: flat affect, moves all extremities spontaneously Mood & Affect: flat affect Assessment & Plan Assessment/Plan (1) Acidosis, lactic: (2) Hypotension: (3) Acute hypoxic respiratory failure: PLAN: Plan #Acute on chronic hypoxic and hypercapnic respiratory failure due to COPD exacerbation and probableaspiration pneumonia * Weaned off of oxygen and now on room air. * Breathing treatments bronchodilators. On IV Solu-Medrol. Titrate oxygen to maintain saturation above 90%. * Transfer out of ICU to [facility] today. * #Type II diabetes mellitus: Hold oral meds. ISS. accuchecks ACHS #Lactic acidosis: Lactic acid was 5.1. Likely due to hypoxia. Should improve as hypoxia resolves #Schizophrenia and bipolar disorder: On Abilify and buspirone. On ativan prn #Hyperlipidemia: On statin #Depression; on trintellix. DVT prophylaxis: lovenox CODE STATUS: Full code Disposition: Anticipate DC home back tomorrow. I want to watch him overnight tomake sure that he remains on room air and his shortness of breath does not recur. Charges/Coding Visit Charges Inpatient E&M: 96791 Subs Hosp L2 12/05/24 7242 Michelle Angeles MD Cosigner Signature (if applicable): CC: ~ Signed [facility]06-10-2025 Consult note Author Ean Quintana [facility] Note Date/Time December 05, 2024 9:37 am [facility] Medical Records Department [address] [place] [address] Consultation - Hearings Reporter 12/05/24 0652 MR#: [id number] Acct: [id number] Name: RIGO GARCIA Rep #:[id number] : 1970 54 From: Ean Quintana DO PCP: Dr. Mame Bright MD Status:ADM IN Location: ICU ICU03-1 Assessment & Plan Assessment/Plan (1) Sepsis: PLAN: Plan RECOMMENDATIONS: 1. Empiric antimicrobials, pending culture results. 2. Check enteric pathogen panel. 3. Supplemental oxygen, if needed, to maintain saturations at or above 90%. 4. Continue appropriate DVT prophylaxis. 5. Encourage incentive spirometer use and mobilize patient as tolerated. 6. The patient is medically stable for transfer out of the intensive care unit. IMPRESSIONS: 1. Sepsis The patient was initially admitted to the hospital with sepsis over concerns forpossible aspiration pneumonia. However, the patient's chest imaging was not overtly concerning for any evidence of focal infiltrate or consolidation. He did present with nausea and vomiting with possible gastroenteritis. However, nodiarrhea has been noted. At this time, the exact source of infection is not entirely clear. Repeat chest x-ray from this morning again demonstrated no focal infiltrate or consolidation. The patient appears to have defervesced withsupplemental IV fluids and antimicrobials. Will continue antimicrobials, pending blood and urine culture results. Will check enteric pathogen panel. Otherwise, continue current supportive care. 2. Chronic tobacco dependency with probable obstructive lung disease While the patient was initially admitted with a supplemental oxygen requirement,he has been weaned to room air this morning. He does have an extensive tobacco abuse history and would likely benefit from having baseline PFTs completed. This cannot be accomplished on an outpatient basis. Encourage incentive spirometer use and mobilize patient as tolerated. 3. History of schizophrenia and bipolar disorder/depression/hyperlipidemia Complicates care, management, recovery and prognosis. Continue home medicationsas indicated. This note was generated with [employer]ation software. It may contain incorrectwords, spelling, and punctuation that were not noted in checking the note beforesigning. HPI Consult Data Date of Consult: 12/05/24 HPI Narrative Reason for Consultation: Sepsis HPI Narrative: The patient is a 54-year-old male, with a history as outlined below, who presented to the emergency department via EMS on December 04 with nausea and vomiting. The patient endorsed a longstanding history of tobacco dependency, but is not currently followed by a battery hand, nor has he ever been diagnosedwith COPD. He reported that he does not utilize supplemental oxygen at his baseline. On presentation to the emergency department, the patient was documented to be febrile, tachycardic and tachypneic. Laboratory evaluation was notable for a white blood cell count of 12,000. Chemistry profile revealed a normal creatinine with a lactate of 5.1. Troponin was mildly elevated at 91. Urine analysis was unremarkable. Chest x-ray demonstrated no acute cardiopulmonary process. Respiratory viral panel was negative. Blood and urine cultures are pending. The patient was subsequently placed on antimicrobials and admitted to the medical intensive care unit with supplemental IV fluids. This morning, the patient is hemodynamically stable and maintaining appropriate oxygen saturations on room air. His lactic acidemia has resolved. Repeat chestx- ray from this morning demonstrated no focal infiltrate or consolidation. [facility] Medical History (Updated 12/05/24 @ 09:[address] Ean Quintana, DO) CVA (cerebral vascular accident) Depression Diabetes Bipolar 1 disorder HLD (hyperlipidemia) HTN (hypertension) Schizophrenia COVID-19 virus infection Home Medications ?Medication ?Instructions ?Recorded ?Last Taken ?Type acetaminophen 325 mg tablet 650 mg PO Q4H PRN fever or pain 07/31/24 Unknown History (Aminofen) aripiprazole 15 mg tablet (Abilify) 15 mg PO DAILY DEBRA IZOPHRENIA 07/31/24 12/03/24 History aspirin 81 mg tablet,delayed 81 mg PO DAILY HTN 12/03/24 History release (Adult Low Dose Aspirin) atorvastatin 20 mg tablet 20 mg PO QHS HYPERLIPIDEMIA 07/31/24 12/03/24 History buspirone 10 mg tablet 10 mg PO TID BIPOLAR 5 12/03/24 History calcium carbonate ([employer] 600 mg PO Q6H PRN hear tburn 07/31/24 11/26/24 History Heartburn Chew) cholecalciferol (vitamin D3) 1,250 1,250 mcg PO QWEEK SUPPLEMENT 07/31/24 11/27/24 History mcg (50,000 unit) capsule gabapentin 100 mg capsule 200 mg PO TID NEUROPATHIC PA IN 07/31/24 12/03/24 History lorazepam 1 mg tablet (Ativan) 1 mg PO Q8H agitation 0 07/31/24 12/03/24 History metformin 1,000 mg tablet 1,000 mg PO BID DM 07/31/24 12/03/24 History sennosides 8.6 mg-docusate sodium 1 tab-cap PO DAILY C ONSTIPATION 07/31/24 12/03/24 History 50 mg tablet (Colace 2-In-1) trazodone 50 mg tablet 50 mg PO QHS BIPOLAR 5 12/03/24 History vortioxetine 20 mg tablet 20 mg PO DAILY DEPRESSION 12/03/24 History (Trintellix) Allergy/AdvReac Type Severity Reaction Status Date / Time ibuprofen Allergy Rash Verified 07/31/24 11:57 Penicillins Allergy RASH Verified 07/31/24 11:57 Family History no significant family his Surgical History no surgical history Social History Smoking Status: Current every day smoker tobacco type: cigarettes ROS ROS Narrative 10 systems were reviewed with pertinent positives as noted in the HPI above. Physical Exam Const alert and no apparent distress Constitutional Narrative: Rather unkempt in appearance. Obese. General Appearance: cooperative HEENT normocephalic, head/scalp atraumatic and moist oral mucous membranes Eyes PERRL, EOMs intact bilaterally and conjunctivae normal Neck supple General: trachea midline Chest inspection of chest normal Resp normal respiratory effort Auscultation: diminished lung sounds; Negative for rales, rhonchi or wheezes Cardio regular rate and regular rhythm GI normal to inspection, nondistended, normoactive bowel sounds Extremity no clubbing, cyanosis or edema Skin no rashes or lesions noted Neuro CN's II-XII intact bilaterally, moves all extremities and no focal motor deficits Psych Mood & Affect: flat affect Lab / Micro Data 12/05/24 05:55 12/05/24 05:55 Labs: Laboratory Results - last 24 hr 12/04/24 10:48: WBC 11.9 H, RBC 5.06, Hgb 13.2, Hct 43.2, MCV 85.4, MCH 26.1 L, MCHC 30.6 L, RDW Std Deviation 45.2 H, RDW Coeff of Thomas 14.6, Plt Count 236, MPV9.6, Immature Gran % (Auto) 0.300, Neut % (Auto) 85.9 H, Lymph % (Auto) 6.3 L, Turner % (Auto) 6.8, Eos % (Auto) 0.5, Baso % (Auto) 0.2, Absolute Neuts (auto) 10.2 H, Absolute Lymphs (auto) 0.75 L, Nucleated RBC % 0, PT 13.4, INR 1.0, APTT23.7 L, Sodium 141, Potassium 4.3, Chloride 100, Carbon Dioxide 24.1, Anion Gap 17 H, BUN 17, Creatinine 1.15, Estim Creat Clear Calc 86.37, Est GFR (MDRD) Non-Af 76, BUN/Creatinine Ratio 14.8, Glucose 112 H, Lactic Acid 5.1 H*, Calcium 9.6, Total Bilirubin 0.37, AST 17, ALT 7, Alkaline Phosphatase 148 H, Troponin THigh Sens 35 H, Total Protein 7.3, Albumin 4.3, Globulin 3.0, Albumin/Globulin Ratio 1.4 12/04/24 11:31: Urine Color Yellow, Urine Clarity Clear, Urine pH 5.0, Ur Specific [place] 1.020, Urine Protein 30 H, Urine Glucose (UA) Normal, Urine Ketones 5 H, Urine Occult Blood 50 H, Urine Nitrite Negative, Urine Bilirubin Negative, Urine Urobilinogen Normal, Ur Leukocyte Esterase 25 H, Urine RBC 0-5 SEEN, Urine WBC 0-5 SEEN, Ur Squamous Epith Cells 0 SEEN, Urine Bacteria 0 SEEN,Urine Mucus 0 SEEN 12/04/24 12:57: Troponin T Hi Sens 2 Hr 91 H* 12/04/24 15:10: Lactic Acid < 1.0 12/05/24 05:55: WBC 11.7 H, RBC 4.35 L, Hgb 11.5 L, Hct 37.5 L, MCV 86.2, MCH 26.4 L, MCHC 30.7 L, RDW Std Deviation 46.1 H, RDW Coeff of Thomas 14.7 H, Plt Count 217, MPV 10.4, Immature Gran % (Auto) 0.300, Neut % (Auto) 78.4 H, Lymph %(Auto) 11.6 L, Turner % (Auto) 9.4, Eos % (Auto) 0.1, Baso % (Auto) 0.2, Absolute Neuts (auto) 9.1 H, Absolute Lymphs (auto) 1.35, Nucleated RBC % 0, Sodium 141, Potassium 4.9, Chloride 108, Carbon Dioxide 24.2, Anion Gap 9, BUN 17, Creatinine 0.94, Estim Creat Clear Calc 104.55, Est GFR (MDRD) Non-Af 96, BUN/Creatinine Ratio 18.3, Glucose 147 H, Calcium 8.6 Micro: Microbiology 12/04/24 11:20 Mucosa - Nose Respiratory Panel (PCR) - Final ABG Data ABG results: ABG 12/04/24 11:29 Specimen Type ART Sample Site L Brach pH 7.36 Bicarbonate Actual 32.9 H Total CO2 35 Base Excess 8 H O2 Saturation 91 L O2 % 8.0 ABG pCO2 57.9 H ABG pO2 66 L O2 Delivery Device Not entered Vent Mode Not entered Imaging Radiology Impression Chest X-Ray 12/04/24 10:43 IMPRESSION: No acute process. Reading [facility] Charges/Coding Visit Charges Inpatient E&M: 31119 Init Hosp L3 12/05/24 0937 <Electronically signed by Ean Quintana DO> Cosigner Signature (if applicable): CC: Dr. Mame Bright MD~ Signed [facility] Work Phone: [phone] Consult note [facility] Medical Records Department [address] [place] [address] Consultation - Hearings Reporter 12/05/24 0652 MR#: [id number] Acct: [id number] Name: RIGO GARCIA Rep #:[id number] : 1970 54 From: aEn Quintana DO PCP: Dr. Mame Bright MD Status:ADM IN Location: ICU ICU03-1 Assessment & Plan Assessment/Plan (1) Sepsis: PLAN: Plan RECOMMENDATIONS: 1. Empiric antimicrobials, pending culture results. 2. Check enteric pathogen panel. 3. Supplemental oxygen, if needed, to maintain saturations at or above 90%. 4. Continue appropriate DVT prophylaxis. 5. Encourage incentive spirometer use and mobilize patient as tolerated. 6. The patient is medically stable for transfer out of the intensive care unit. IMPRESSIONS: 1. Sepsis The patient was initially admitted to the hospital with sepsis over concerns forpossible aspirationpneumonia. However, the patient's chest imaging was not overtly concerning for any evidence of focal infiltrate or consolidation. He did present with nausea and vomiting with possible gastroenteritis. However, nodiarrhea has been noted. At this time, the exact source of infection is not entirely clear. Repeat chest x-ray from this morning again demonstrated no focal infiltrate or consolidation. The patient appears to have defervesced withsupplemental IV fluids and antimicrobials. Will continue antimicrobials, pending blood and urine culture results. Will check enteric pathogen panel. Otherwise, continue current supportive care. 2. Chronic tobacco dependency with probable obstructive lung disease While the patient was initially admitted with a supplemental oxygen requirement,he has been weaned to room air this morning. He does have an extensive tobacco abuse history and would likely benefit from having baseline PFTs completed. This cannot be accomplished on an outpatient basis. Encourage incentive spirometer use and mobilize patient as tolerated. 3. History of schizophrenia and bipolar disorder/depression/hyperlipidemia Complicates care, management, recovery and prognosis. Continue home medicationsas indicated. This note was generated with [employer]ation software. It may contain incorrectwords, spelling, and punctuation that were not noted in checking the note beforesigning. HPI Consult Data Date of Consult: 12/05/24 HPI Narrative Reason for Consultation: Sepsis HPI Narrative: The patient is a 54-year-old male, with a history as outlined below, who presented to the emergencydepartment via EMS on December 04 with nausea and vomiting. The patient endorsed a longstanding history of tobacco dependency, but is not currently followed by a battery hand, nor has he ever been diagnosedwith COPD. He reported that he does not utilize supplemental oxygen at his baseline. On presentation to the emergency department, the patient was documented to be febrile, tachycardic and tachypneic. Laboratory evaluation was notable for a white blood cell count of 12,000. Chemistry profile revealed a normal creatinine with a lactate of 5.1. Troponin was mildly elevated at 91. Urine analysis was unremarkable. Chest x-ray demonstrated no acute cardiopulmonary process. Respiratory viral panel was negative. Blood and urine cultures are pending. The patient was subsequently placed on antimicrobials and admitted to the medical intensive care unit with supplemental IV fluids. This morning, the patient is hemodynamically stable and maintaining appropriate oxygen saturations on room air. His lactic acidemia has resolved. Repeat chestx- ray from this morning demonstrated no focal infiltrate or consolidation. [facility] Medical History (Updated 12/05/24 @ 09:[address] Ean uQintana, DO) CVA (cerebral vascular accident) Depression Diabetes Bipolar 1 disorder HLD (hyperlipidemia) HTN (hypertension) Schizophrenia COVID-19 virus infection Home Medications ?Medication ?Instructions ?Recorded ?Last Taken ?Type acetaminophen 325 mg tablet 650 mg PO Q4H PRN fever or pain 07/31/24 Unknown History (Aminofen) aripiprazole 15 mg tablet (Abilify) 15 mg PO DAILY DEBRA IZOPHRENIA 07/31/24 12/03/24 History aspirin 81 mg tablet,delayed 81 mg PO DAILY HTN 12/03/24 History release (Adult Low Dose Aspirin) atorvastatin 20 mg tablet 20 mg PO QHS HYPERLIPIDEMIA 07/31/24 12/03/24 History buspirone 10 mg tablet 10 mg PO TID BIPOLAR 5 12/03/24 History calcium carbonate ([employer] 600 mg PO Q6H PRN hear tburn 07/31/24 11/26/24 History Heartburn Chew) cholecalciferol (vitamin D3) 1,250 1,250 mcg PO QWEEK SUPPLEMENT 07/31/24 11/27/24 History mcg (50,000 unit) capsule gabapentin 100 mg capsule 200 mg PO TID NEUROPATHIC PA IN 07/31/24 12/03/24 History lorazepam 1 mg tablet (Ativan) 1 mg PO Q8H agitation 0 07/31/24 12/03/24 History metformin 1,000 mg tablet 1,000 mg PO BID DM 07/31/24 12/03/24 History sennosides 8.6 mg-docusate sodium 1 tab-cap PO DAILY C ONSTIPATION 07/31/24 12/03/24 History 50 mg tablet (Colace 2-In-1) trazodone 50 mg tablet 50 mg PO QHS BIPOLAR 5 12/03/24 History vortioxetine 20 mg tablet 20 mg PO DAILY DEPRESSION 12/03/24 History (Trintellix) Allergy/AdvReac Type Severity Reaction Status Date / Time ibuprofen Allergy Rash Verified 07/31/24 11:57 Penicillins Allergy RASH Verified 07/31/24 11:57 Family History no significant family his Surgical History no surgical history Social History Smoking Status: Current every day smoker tobacco type: cigarettes ROS ROS Narrative 10 systems were reviewed with pertinent positives as noted in the HPI above. Physical Exam Const alert and no apparent distress Constitutional Narrative: Rather unkempt in appearance. Obese. General Appearance: cooperative HEENT normocephalic, head/scalp atraumatic and moist oral mucous membranes Eyes PERRL, EOMs intact bilaterally and conjunctivae normal Neck supple General: trachea midline Chest inspection of chest normal Resp normal respiratory effort Auscultation: diminished lung sounds; Negative for rales, rhonchi or wheezes Cardio regular rate and regular rhythm GI normal to inspection, nondistended, normoactive bowel sounds Extremity no clubbing, cyanosis or edema Skin no rashes or lesions noted Neuro CN's II-XII intact bilaterally, moves all extremities and no focal motor deficits Psych Mood & Affect: flat affect Lab / Micro Data 12/05/24 05:55 12/05/24 05:55 Labs: Laboratory Results - last 24 hr 12/04/24 10:48: WBC 11.9 H, RBC 5.06, Hgb 13.2, Hct 43.2, MCV 85.4, MCH 26.1 L, MCHC 30.6 L, RDW Std Deviation 45.2 H, RDW Coeff of Thomas 14.6, Plt Count 236, MPV9.6, Immature Gran % (Auto) 0.300, Neut% (Auto) 85.9 H, Lymph % (Auto) 6.3 L, Turner % (Auto) 6.8, Eos % (Auto) 0.5, Baso % (Auto) 0.2, Absolute Neuts (auto) 10.2 H, Absolute Lymphs (auto) 0.75 L, Nucleated RBC % 0, PT 13.4, INR 1.0, APTT23.7 L, Sodium 141, Potassium 4.3, Chloride 100, Carbon Dioxide 24.1, Anion Gap 17 H, BUN 17, Creatinine 1.15, Estim Creat Clear Calc 86.37, Est GFR (MDRD) Non-Af 76, BUN/Creatinine Ratio 14.8, Glucose 112 H, Lactic Acid 5.1 H*, Calcium 9.6, Total Bilirubin 0.37, AST 17, ALT 7, Alkaline Phosphatase 148 H, Troponin THigh Sens 35 H, Total Protein 7.3, Albumin 4.3, Globulin 3.0, Albumin/Globulin Ratio 1.4 12/04/24 11:31: Urine Color Yellow, Urine Clarity Clear, Urine pH 5.0, Ur Specific [place] 1.020, Urine Protein 30 H, Urine Glucose (UA) Normal, Urine Ketones 5 H, Urine Occult Blood 50 H, Urine Nitrite Negative, Urine Bilirubin Negative, Urine Urobilinogen Normal, Ur Leukocyte Esterase 25 H, UrineRBC 0-5 SEEN, Urine WBC 0-5 SEEN, Ur Squamous Epith Cells 0 SEEN, Urine Bacteria 0 SEEN,Urine Mucus0 SEEN 12/04/24 12:57: Troponin T Hi Sens 2 Hr 91 H* 12/04/24 15:10: Lactic Acid < 1.0 12/05/24 05:55: WBC 11.7 H, RBC 4.35 L, Hgb 11.5 L, Hct 37.5 L, MCV 86.2, MCH 26.4 L, MCHC 30.7 L, RDW Std Deviation 46.1 H, RDW Coeff of Thomas 14.7 H, Plt Count 217, MPV 10.4, Immature Gran % (Auto) 0.300, Neut % (Auto) 78.4 H, Lymph %(Auto) 11.6 L, Turner % (Auto) 9.4, Eos % (Auto) 0.1, Baso % (Auto)0.2, Absolute Neuts (auto) 9.1 H, Absolute Lymphs (auto) 1.35, Nucleated RBC % 0, Sodium 141, Potassium 4.9, Chloride 108, Carbon Dioxide 24.2, Anion Gap 9, BUN 17, Creatinine 0.94, Estim Creat ClearCalc 104.55, Est GFR (MDRD) Non-Af 96, BUN/Creatinine Ratio 18.3, Glucose 147 H, Calcium 8.6 Micro: Microbiology 12/04/24 11:20 Mucosa - Nose Respiratory Panel (PCR) - Final ABG Data ABG results: ABG 12/04/24 11:29 Specimen Type ART Sample Site L Brach pH 7.36 Bicarbonate Actual 32.9 H Total CO2 35 Base Excess 8 H O2 Saturation 91 L O2 % 8.0 ABG pCO2 57.9 H ABG pO2 66 L O2 Delivery Device Not entered Vent Mode Not entered Imaging Radiology Impression Chest X-Ray 12/04/24 10:43 IMPRESSION: No acute process. Reading Location: [facility] Charges/Coding Visit Charges Inpatient E&M: 42848 Init Hosp L3 12/05/24 0937 Cosigner Signature (if applicable): CC: Dr. Mame Bright MD~ Signed [facility]06-10-2025 Radiology Diagnostic study note [facility] Imaging Services [address] [place] [address] Chest 1 View (Portable) MR#: [id number] Acct: [id number] Name: RIGO GARCIA Rep #: [id number] : 1970 M 54 From: Sohan Chadwick MD PCP: Dr. Mame Bright MD Status: ADM IN Study:Chest 1 View (Portable) Date of Exam: 12/05/24 Exam# [id number] Ordering Dr: Richardson DO PROCEDURE: CHEST 1 VIEW (PORTABLE) 12/05/2024 REASON FOR EXAM: SEPSIS TECHNIQUE: Frontal view of the chest. COMPARISON: 12/04/2024. FINDINGS: Interval appearance of mild bilateral basilar atelectatic pulmonary changes. There is no demonstrated pleural abnormality. Enlarged cardiac silhouette. Normal mediastinum and mirtha. Normal visualized pulmonary arteries. Atheromatous plaques of the visualized aortic arch and descending thoracic aorta. Diffuse spondylosis of the visualized thoracic spine. Normal visualized ribs, clavicles. Degenerative joint disease. There is no demonstrated abnormality of the visualized soft tissue structures ofthe upper abdomen. RAD/Chest 1 View (Portable) IMPRESSION: Interval appearance of mild bilateral basilar atelectatic pulmonary changes. Reading Location: [place] [address] CC: Dr. Ean Quintana DO; Dr. Mame Bright MD ~ Interviewing Clerk: Signed [facility]06-09-2025 History and physical note Author [facility] Note Date/Time December 04, 2024 6:53p m [facility] Medical Records Department [address] [place] [address] H&P Exam - Hospitalist 12/04/24 1248 MR#: [id number] Acct: [id number] Name: RIGO GARCIA Rep #:[id number] : 1970 54 From: Michelle Angeles MD PCP: Dr. Mame Bright MD Status:ADM IN Location: ICU ICU03-1 HPI - General General Date of Admission: 12/04/24 Date of Service: 12/04/24 Chief Complaint: nausea, vomiting HPI Narrative RIGO GARCIA, is a 54 M with a PMH as outlined who [facility] from his SNF on 12/[facility]24 with a complaint of nausea and vomiting. [facility] [place] [place] HE was brought in from the SNF due to fever and tachypnea as well as tachycardia. HE had nausea and vomiting today and became acutely short of breath. He denied any chest pain, and was also febrile. He was saturating at 72% on room air and slightly placed on nasal cannula and the EMS called. He was brought him in the ED. Vitals in the ED were blood pressure of 99/64, pulse rate of 101, respiratory rate of 12 and temperature 101.7 ?F. He was saturating at 91% on 10 L of oxygen. CBC showed hemoglobin of 13.2 with WBC of 11.9 and platelets of 236. INR is 1. ABG done showed pH of 7.36 with oxygen saturation of 91% and pO2 of 66 as well as pCO2 of 57.9. Chemistry showed sodium of 141 potassium of 4.3 andbicarb of 24.1. Creatinine was 1.15. Lactic acid was 5.1. ALP was 148. AST, ALT and total bilirubin were normal. Urinalysis showed no evidence of UTI. Chest x-ray showed no acute cardiopulmonary pathology. EKG showed no acute ST changes. Urinalysis showed no evidence of UTI. He has been admitted to be managed for acute hypoxic and hypercapnic respiratory failure due to COPD exacerbation with probable aspiration pneumonia. [facility] Medical History CVA (cerebral vascular accident) Depression Diabetes Bipolar 1 disorder HLD (hyperlipidemia) HTN (hypertension) Schizophrenia COVID-19 virus infection Home Medications ?Medication ?Instructions ?Recorded ?Last Taken ?Type acetaminophen 325 mg tablet 650 mg PO Q4H PRN fever or pain 07/31/24 Unknown History (Aminofen) aripiprazole 15 mg tablet (Abilify) 15 mg PO DAILY DEBRA IZOPHRENIA 07/31/24 12/03/24 History aspirin 81 mg tablet,delayed 81 mg PO DAILY HTN 12/03/24 History release (Adult Low Dose Aspirin) atorvastatin 20 mg tablet 20 mg PO QHS HYPERLIPIDEMIA 07/31/24 12/03/24 History buspirone 10 mg tablet 10 mg PO TID BIPOLAR 5 12/03/24 History calcium carbonate ([employer] 600 mg PO Q6H PRN hear tburn 07/31/24 11/26/24 History Heartburn Chew) cholecalciferol (vitamin D3) 1,250 1,250 mcg PO QWEEK SUPPLEMENT 07/31/24 11/27/24 History mcg (50,000 unit) capsule gabapentin 100 mg capsule 200 mg PO TID NEUROPATHIC PA IN 07/31/24 12/03/24 History lorazepam 1 mg tablet (Ativan) 1 mg PO Q8H agitation 0 07/31/24 12/03/24 History metformin 1,000 mg tablet 1,000 mg PO BID DM 07/31/24 12/03/24 History sennosides 8.6 mg-docusate sodium 1 tab-cap PO DAILY C ONSTIPATION 07/31/24 12/03/24 History 50 mg tablet (Colace 2-In-1) trazodone 50 mg tablet 50 mg PO QHS BIPOLAR 5 12/03/24 History vortioxetine 20 mg tablet 20 mg PO DAILY DEPRESSION 12/03/24 History (Trintellix) Allergy/AdvReac Type Severity Reaction Status Date / Time ibuprofen Allergy Rash Verified 07/31/24 11:57 Penicillins Allergy RASH Verified 07/31/24 11:57 Family History no significant family his Surgical History no surgical history Social History Smoking Status: Current every day smoker tobacco type: cigarettes ROS Constitutional Constitutional: Reports fatigue and malaise; Denies anorexia, chills or fever(s) Eyes Eyes: Denies change in vision ENT HEENT: Denies dysphagia, headache(s) or sore throat Cardiovascular Cardiovascular: Denies chest pain, dyspnea on exertion, edema, lightheadedness or orthopnea Respiratory/Chest Respiratory/Chest: Reports cough, dyspnea, productive cough, shortness of breathat rest and shortness of breath with exertion; Denies wheezing Gastrointestinal Gastrointestinal: Reports nausea and vomiting; Denies abdominal pain, constipation, diarrhea, dyspepsia or hematemesis Genitourinary Genitourinary: Denies dysuria Neurologic Neurologic: Denies confusion, dizziness, focal weakness, headache(s), numbness, paresthesias, seizure-like activity, seizures or syncope Psychiatric Psychiatric: Denies anxiety Vital Signs Vital Signs Vital Signs: 12/04/24 10:26 12/04/24 10:31 12/04/24 10:36 Temperature 103.3 F H 103.3 F H Temperature Source Oral Oral Pulse Rate 148 H 132 H Respiratory Rate 40 H Respiratory Pattern Blood Pressure 136/79 H 136/79 H Blood Pressure Mean 98 98 Pulse Ox 79 90 91 Oxygen Delivery Method Room Air Nasal Cannula High Flow Oxygen Flow Rate (L/min) 6 12 12/04/24 10:43 12/04/24 11:22 12/04/24 11:26 Temperature Temperature Source Pulse Rate 117 H Respiratory Rate 24 H Respiratory Pattern Normal Blood Pressure 99/67 Blood Pressure Mean 77 Pulse Ox 92 Oxygen Delivery Method High Flow Oxygen Flow Rate (L/min) 9 12/04/24 11:31 12/04/24 12:00 Temperature 101.2 F H 101.7 F H Temperature Source Core Core Pulse Rate 109 H 101 H Respiratory Rate 18 12 Respiratory Pattern Blood Pressure 99/67 99/64 Blood Pressure Mean 77 75 Pulse Ox 93 91 Oxygen Delivery Method High Flow High Flow Oxygen Flow Rate (L/min) 10 10 Weight Weight: 232 lb 2.348 oz Body Mass Index (BMI) 35.3 Physical Exam Const alert Constitutional Narrative: Week, able to answer questions Orientation / Consciousness: lethargic HEENT normocephalic and head/scalp atraumatic HEENT Narrative: dry oral mucosa Mouth: oral and palatal mucosa normal Eyes PERRL and EOMs intact bilaterally Neck no lymphadenopathy and supple Resp normal respiratory effort, no use of accessory muscles and clear to auscultationbilaterally Resp Narrative: mildly diminished breath sounds bibasally, no wheezes or crackles. On 2L of oxygen. Cardio regular rate, regular rhythm and no murmurs GI normal to inspection, nondistended, normoactive bowel sounds, soft to palpation and non-tender Extremity normal to inspection, full ROM and no clubbing, cyanosis or edema Neuro moves all extremities Neuro Narrative: flat affect Sensorium / Orientation: awake and alert Psych Psych Narrative: flat affect, moves all extremities spontaneously Results Lab / Micro Data 12/04/24 10:48 12/04/24 10:48 Labs: Laboratory Results - last 24 hr 12/04/24 10:48: WBC 11.9 H, RBC 5.06, Hgb 13.2, Hct 43.2, MCV 85.4, MCH 26.1 L, MCHC 30.6 L, RDW Std Deviation 45.2 H, RDW Coeff of Thomas 14.6, Plt Count 236, MPV9.6, Immature Gran % (Auto) 0.300, Neut % (Auto) 85.9 H, Lymph % (Auto) 6.3 L, Turner % (Auto) 6.8, Eos % (Auto) 0.5, Baso % (Auto) 0.2, Absolute Neuts (auto) 10.2 H, Absolute Lymphs (auto) 0.75 L, Nucleated RBC % 0, PT 13.4, INR 1.0, APTT23.7 L, Sodium 141, Potassium 4.3, Chloride 100, Carbon Dioxide 24.1, Anion Gap 17 H, BUN 17, Creatinine 1.15, Estim Creat Clear Calc 86.37, Est GFR (MDRD) Non-Af 76, BUN/Creatinine Ratio 14.8, Glucose 112 H, Lactic Acid 5.1 H*, Calcium 9.6, Total Bilirubin 0.37, AST 17, ALT 7, Alkaline Phosphatase 148 H, Troponin THigh Sens 35 H, Total Protein 7.3, Albumin 4.3, Globulin 3.0, Albumin/Globulin Ratio 1.4 12/04/24 11:31: Urine Color Yellow, Urine Clarity Clear, Urine pH 5.0, Ur Specific [place] 1.020, Urine Protein 30 H, Urine Glucose (UA) Normal, Urine Ketones 5 H, Urine Occult Blood 50 H, Urine Nitrite Negative, Urine Bilirubin Negative, Urine Urobilinogen Normal, Ur Leukocyte Esterase 25 H, Urine RBC 0-5 SEEN, Urine WBC 0-5 SEEN, Ur Squamous Epith Cells 0 SEEN, Urine Bacteria 0 SEEN,Urine Mucus 0 SEEN ABG Data ABG results: ABG 12/04/24 11:29 Specimen Type ART Sample Site L Brach pH 7.36 Bicarbonate Actual 32.9 H Total CO2 35 Base Excess 8 H O2 Saturation 91 L O2 % 8.0 ABG pCO2 57.9 H ABG pO2 66 L O2 Delivery Device Not entered Vent Mode Not entered Imaging Radiology Impression Chest X-Ray 12/04/24 10:43 IMPRESSION: No acute process. Reading [facility] Assessment & Plan Assessment/Plan (1) Acidosis, lactic: (2) Hypotension: (3) Acute hypoxic respiratory failure: PLAN: Plan #Acute on chronic hypoxic and hypercapnic respiratory failure due to COPD exacerbation and probable aspiration pneumonia * Admit to ICU. Admitted with a complaint of nausea and vomiting and found to be hypoxic. * On 10 L of oxygen and temperature is 101.7 ?F. Lactic acid was also elevated at 5.1. * Chest x-ray however did not show any evidence of acute cardiopulmonary pathology. However he may be dehydrated and with his vomiting I suspect he may have some aspiration pneumonia * Will admit to ICU as a precaution. Titrate oxygen to maintain saturation above 90%. * Consult critical care. * Started on IV Zosyn. Hydrate gently with IV fluids. Breathing treatments bronchodilators. Titrate oxygen to maintain saturation above 90%. * Sputum cultures. Blood cultures also ordered. * IV solumedrol #Type II diabetes mellitus: Hold oral meds. ISS. accuchecks ACHS #Lactic acidosis: Lactic acid was 5.1. Likely due to hypoxia. Should improve as hypoxia resolves #Schizophrenia and bipolar disorder: On Abilify and buspirone. On ativan prn #Hyperlipidemia: On statin #Depression; on trintellix. DVT prophylaxis: lovenox CODE STATUS: Full code Charges/Coding Visit Charges Inpatient E&M: 42225 Init Hosp L3 12/04/24 1202 <Electronically signed by Michelle Angeles MD> Cosigner Signature (if applicable): CC: Dr. Michelle Angeles MD; Dr. Mame Bright MD~ Signed [facility] Work Phone: [phone] 147-528506-09-2025 History and physical note [facility] Medical Records Department [address] [place] [address] H&P Exam - Hospitalist 12/04/24 1248 MR#: [id number] Acct: [id number] Name: RIGO GARCIA Rep #:[id number] : 1970 54 From: Michelle Angeles MD PCP: Dr. Mame Bright MD Status:ADM IN Location: ICU ICU03-1 HPI - General General Date of Admission: 12/04/24 Date of Service: 12/04/24 Chief Complaint: nausea, vomiting HPI Narrative RIGO GARCIA is a 54 M with a PMH as outlined who presents from his SNF on 12/04/2024 with a complaintof nausea and vomiting. [facility] [place] HE was brought in from the SNF due to fever and tachypnea as well as tachycardia. HE had nausea and vomiting today and became acutely short of breath. He denied any chest pain, and was also febrile. He was saturating at 72% on room air and slightly placed on nasal cannula and the EMS called. He was brought him in the ED. Vitals in the ED were blood pressure of 99/64, pulse rate of 101, respiratory rate of 12 and temperature 101.7 ?F. He was saturating at 91% on 10 L of oxygen. CBC showed hemoglobin of 13.2 with WBC of 11.9 and platelets of 236. INR is 1. ABG done showed pH of 7.36 with oxygen saturation of 91% and pO2 of 66 as well as pCO2 of 57.9. Chemistry showed sodium of 141 potassium of 4.3 andbicarb of 24.1. Creatinine was 1.15. Lactic acid was 5.1. ALP was 148. AST, ALT and total bilirubin were normal. Urinalysis showed no evidence of UTI. Chest x-ray showed no acute cardiopulmonary pathology. EKG showed no acute ST changes. Urinalysis showed no evidence of UTI. He has been admitted to be managed foracute hypoxic and hypercapnic respiratory failure due to COPD exacerbation with probable aspirationpneumonia. [facility] Medical History CVA (cerebral vascular accident) Depression Diabetes Bipolar 1 disorder HLD (hyperlipidemia) HTN (hypertension) Schizophrenia COVID-19 virus infection Home Medications ?Medication ?Instructions ?Recorded ?Last Taken ?Type acetaminophen 325 mg tablet 650 mg PO Q4H PRN fever or pain 07/31/24 Unknown History (Aminofen) aripiprazole 15 mg tablet (Abilify) 15 mg PO DAILY DEBRA IZOPHRENIA 07/31/24 12/03/24 History aspirin 81 mg tablet,delayed 81 mg PO DAILY HTN 12/03/24 History release (Adult Low Dose Aspirin) atorvastatin 20 mg tablet 20 mg PO QHS HYPERLIPIDEMIA 07/31/24 12/03/24 History buspirone 10 mg tablet 10 mg PO TID BIPOLAR 5 12/03/24 History calcium carbonate ([employer] 600 mg PO Q6H PRN hear tburn 07/31/24 11/26/24 History Heartburn Chew) cholecalciferol (vitamin D3) 1,250 1,250 mcg PO QWEEK SUPPLEMENT 07/31/24 11/27/24 History mcg (50,000 unit) capsule gabapentin 100 mg capsule 200 mg PO TID NEUROPATHIC PA IN 07/31/24 12/03/24 History lorazepam 1 mg tablet (Ativan) 1 mg PO Q8H agitation 0 07/31/24 12/03/24 History metformin 1,000 mg tablet 1,000 mg PO BID DM 07/31/24 12/03/24 History sennosides 8.6 mg-docusate sodium 1 tab-cap PO DAILY C ONSTIPATION 07/31/24 12/03/24 History 50 mg tablet (Colace 2-In-1) trazodone 50 mg tablet 50 mg PO QHS BIPOLAR 5 12/03/24 History vortioxetine 20 mg tablet 20 mg PO DAILY DEPRESSION 12/03/24 History (Trintellix) Allergy/AdvReac Type Severity Reaction Status Date / Time ibuprofen Allergy Rash Verified 07/31/24 11:57 Penicillins Allergy RASH Verified 07/31/24 11:57 Family History no significant family his Surgical History no surgical history Social History Smoking Status: Current every day smoker tobacco type: cigarettes ROS Constitutional Constitutional: Reports fatigue and malaise; Denies anorexia, chills or fever(s) Eyes Eyes: Denies change in vision ENT HEENT: Denies dysphagia, headache(s) or sore throat Cardiovascular Cardiovascular: Denies chest pain, dyspnea on exertion, edema, lightheadedness or orthopnea Respiratory/Chest Respiratory/Chest: Reports cough, dyspnea, productive cough, shortness of breathat rest and shortness of breath with exertion; Denies wheezing Gastrointestinal Gastrointestinal: Reports nausea and vomiting; Denies abdominal pain, constipation, diarrhea, dyspepsia or hematemesis Genitourinary Genitourinary: Denies dysuria Neurologic Neurologic: Denies confusion, dizziness, focal weakness, headache(s), numbness, paresthesias, seizure-like activity, seizures or syncope Psychiatric Psychiatric: Denies anxiety Vital Signs Vital Signs Vital Signs: 12/04/24 10:26 12/04/24 10:31 12/04/24 10:36 Temperature 103.3 F H 103.3 F H Temperature Source Oral Oral Pulse Rate 148 H 132 H Respiratory Rate 40 H Respiratory Pattern Blood Pressure 136/79 H 136/79 H Blood Pressure Mean 98 98 Pulse Ox 79 90 91 Oxygen Delivery Method Room Air Nasal Cannula High Flow Oxygen Flow Rate (L/min) 6 12 12/04/24 10:43 12/04/24 11:22 12/04/24 11:26 Temperature Temperature Source Pulse Rate 117 H Respiratory Rate 24 H Respiratory Pattern Normal Blood Pressure 99/67 Blood Pressure Mean 77 Pulse Ox 92 Oxygen Delivery Method High Flow Oxygen Flow Rate (L/min) 9 12/04/24 11:31 12/04/24 12:00 Temperature 101.2 F H 101.7 F H Temperature Source Core Core Pulse Rate 109 H 101 H Respiratory Rate 18 12 Respiratory Pattern Blood Pressure 99/67 99/64 Blood Pressure Mean 77 75 Pulse Ox 93 91 Oxygen Delivery Method High Flow High Flow Oxygen Flow Rate (L/min) 10 10 Weight Weight: 232 lb 2.348 oz Body Mass Index (BMI) 35.3 Physical Exam Const alert Constitutional Narrative: Week, able to answer questions Orientation / Consciousness: lethargic HEENT normocephalic and head/scalp atraumatic HEENT Narrative: dry oral mucosa Mouth: oral and palatal mucosa normal Eyes PERRL and EOMs intact bilaterally Neck no lymphadenopathy and supple Resp normal respiratory effort, no use of accessory muscles and clear to auscultationbilaterally Resp Narrative: mildly diminished breath sounds bibasally, no wheezes or crackles. On 2L of oxygen. Cardio regular rate, regular rhythm and no murmurs GI normal to inspection, nondistended, normoactive bowel sounds, soft to palpation and non-tender Extremity normal to inspection, full ROM and no clubbing, cyanosis or edema Neuro moves all extremities Neuro Narrative: flat affect Sensorium / Orientation: awake and alert Psych Psych Narrative: flat affect, moves all extremities spontaneously Results Lab / Micro Data 12/04/24 10:48 12/04/24 10:48 Labs: Laboratory Results - last 24 hr 12/04/24 10:48: WBC 11.9 H, RBC 5.06, Hgb 13.2, Hct 43.2, MCV 85.4, MCH 26.1 L, MCHC 30.6 L, RDW Std Deviation 45.2 H, RDW Coeff of Thomas 14.6, Plt Count 236, MPV9.6, Immature Gran % (Auto) 0.300, Neut% (Auto) 85.9 H, Lymph % (Auto) 6.3 L, Turner % (Auto) 6.8, Eos % (Auto) 0.5, Baso % (Auto) 0.2, Absolute Neuts (auto) 10.2 H, Absolute Lymphs (auto) 0.75 L, Nucleated RBC % 0, PT 13.4, INR 1.0, APTT23.7 L, Sodium 141, Potassium 4.3, Chloride 100, Carbon Dioxide 24.1, Anion Gap 17 H, BUN 17, Creatinine 1.15, Estim Creat Clear Calc 86.37, Est GFR (MDRD) Non-Af 76, BUN/Creatinine Ratio 14.8, Glucose 112 H, Lactic Acid 5.1 H*, Calcium 9.6, Total Bilirubin 0.37, AST 17, ALT 7, Alkaline Phosphatase 148 H, Troponin THigh Sens 35 H, Total Protein 7.3, Albumin 4.3, Globulin 3.0, Albumin/Globulin Ratio 1.4 12/04/24 11:31: Urine Color Yellow, Urine Clarity Clear, Urine pH 5.0, Ur Specific [place] 1.020, Urine Protein 30 H, Urine Glucose (UA) Normal, Urine Ketones 5 H, Urine Occult Blood 50 H, Urine Nitrite Negative, Urine Bilirubin Negative, Urine Urobilinogen Normal, Ur Leukocyte Esterase 25 H, UrineRBC 0-5 SEEN, Urine WBC 0-5 SEEN, Ur Squamous Epith Cells 0 SEEN, Urine Bacteria 0 SEEN,Urine Mucus0 SEEN ABG Data ABG results: ABG 12/04/24 11:29 Specimen Type ART Sample Site L Brach pH 7.36 Bicarbonate Actual 32.9 H Total CO2 35 Base Excess 8 H O2 Saturation 91 L O2 % 8.0 ABG pCO2 57.9 H ABG pO2 66 L O2 Delivery Device Not entered Vent Mode Not entered Imaging Radiology Impression Chest X-Ray 12/04/24 10:43 IMPRESSION: No acute process. Reading Location[facility] Assessment & Plan Assessment/Plan (1) Acidosis, lactic: (2) Hypotension: (3) Acute hypoxic respiratory failure: PLAN: Plan #Acute on chronic hypoxic and hypercapnic respiratory failure due to COPD exacerbation and probableaspiration pneumonia * Admit to ICU. Admitted with a complaint of nausea and vomiting and found to be hypoxic. * On 10 L of oxygen and temperature is 101.7 ?F. Lactic acid was also elevated at 5.1. * Chest x-ray however did not show any evidence of acute cardiopulmonary pathology. However he may be dehydrated and with his vomiting I suspect he may have some aspiration pneumonia * Will admit to ICU as a precaution. Titrate oxygen to maintain saturation above 90%. * Consult critical care. * Started on IV Zosyn. Hydrate gently with IV fluids. Breathing treatments bronchodilators. Titrateoxygen to maintain saturation above 90%. * Sputum cultures. Blood cultures also ordered. * IV solumedrol #Type II diabetes mellitus: Hold oral meds. ISS. accuchecks ACHS #Lactic acidosis: Lactic acid was 5.1. Likely due to hypoxia. Should improve as hypoxia resolves #Schizophrenia and bipolar disorder: On Abilify and buspirone. On ativan prn #Hyperlipidemia: On statin #Depression; on trintellix. DVT prophylaxis: lovenox CODE STATUS: Full code Charges/Coding Visit Charges Inpatient E&M: 30435 Init Hosp L3 12/04/24 9820 Cosigner Signature (if applicable): CC: Dr. Michelle Angeles MD; Dr. Mame Bright MD~ Signed [facility]06-09-2025 Discharge summary Author Franco Benites [facility] Note Date/Time December 04, 2024 4:50p m [facility] Medical Records Department [address] [place] [address] Emergency Department Summary 12/04/24 MR#: [id number] Acct: [id number] Name: RIGO GARCIA Rep #:[id number] : 1970 54 From: Franco ge DO PCP: Dr. Mame Bright MD Status:ADM IN Location: ICU ICU03-1 HPI History of Present Illness Chief Complaint: Nausea/Vomiting Narrative Narrative: Chief complaint and HPI: 54-year-old gentleman with past medical history of HTN,COPD, HLD, schizophrenia, DM2, CVA with right-sided paralysis and wheelchair-bound presents for evaluation of nausea and vomiting. Patient is a very poor historian therefore history taken by [facility] where patient resides as well as medical record. Patient was found to be febrile today at 100.5 as well as tachycardic and tachypneic. He was 72% on room air in which she was placed on nasal cannula. Associated symptom nausea and vomiting. Patient has a history of respiratory failure in July and staff feels that this is similar to the way he presented at that time. Patient currently endorses nausea and endorses general malaise with cough. Denies any chest pain, shortness of breath, abdominal pain, diarrhea, dysuria. Review of systems: See HPI Medications: As listed on the chart Allergies: As listed on the chart PFSH: Per chart Vital signs: As listed on the chart. Reviewed. Physical exam: Gen: A&O x2-did not know the year, not abnormal for him per report given that patient has a history of memory issues since his CVA, unwell appearing Head: Normocephalic, atraumatic Eyes: No sclera icterus, conjunctiva clear, PERRL, EOMI ENT: TMs clear BL, moist mucous membranes, posterior oropharynx unremarkable, uvula midline Neck: Trachea midline, No JVD, Full ROM, No meningismus CV: Tachycardic, regular rhythm, no murmurs Resp: Diminished, coarse, expiratory wheezing, on 12 L high flow GI: Abd soft, non-distended, non-tender, no r/r/g Musc: Moves left side, baseline deficit on the right from previous CVA Skin: Warm, no rash Neuro: Alert, grossly intact, sensation intact Psych: Cooperative [facility] Medical History CVA (cerebral vascular accident) Depression Diabetes Bipolar 1 disorder HLD (hyperlipidemia) HTN (hypertension) Schizophrenia COVID-19 virus infection Home Medications ?Medication ?Instructions ?Recorded ?Last Taken ?Type acetaminophen 325 mg tablet 650 mg PO Q4H PRN fever or pain 07/31/24 Unknown History (Aminofen) aripiprazole 15 mg tablet (Abilify) 15 mg PO DAILY DEBRA IZOPHRENIA 07/31/24 12/03/24 History aspirin 81 mg tablet,delayed 81 mg PO DAILY HTN 12/03/24 History release (Adult Low Dose Aspirin) atorvastatin 20 mg tablet 20 mg PO QHS HYPERLIPIDEMIA 07/31/24 12/03/24 History buspirone 10 mg tablet 10 mg PO TID BIPOLAR 02/03/2 5 12/03/24 History calcium carbonate ([employer] 600 mg PO Q6H PRN hear tburn 07/31/24 11/26/24 History Heartburn Chew) cholecalciferol (vitamin D3) 1,250 1,250 mcg PO QWEEK SUPPLEMENT 07/31/24 06/08/22 History mcg (50,000 unit) capsule gabapentin 100 mg capsule 200 mg PO TID NEUROPATHIC PA IN 07/31/24 12/03/24 History lorazepam 1 mg tablet (Ativan) 1 mg PO Q8H agitation 0 07/31/24 12/03/24 History metformin 1,000 mg tablet 1,000 mg PO BID DM 07/31/24 12/03/24 History sennosides 8.6 mg-docusate sodium 1 tab-cap PO DAILY C ONSTIPATION 07/31/24 12/03/24 History 50 mg tablet (Colace 2-In-1) trazodone 50 mg tablet 50 mg PO QHS BIPOLAR 5 12/03/24 History vortioxetine 20 mg tablet 20 mg PO DAILY DEPRESSION 12/03/24 History (Trintellix) Allergy/AdvReac Type Severity Reaction Status Date / Time ibuprofen Allergy Rash Verified 07/31/24 11:57 Penicillins Allergy RASH Verified 07/31/24 11:57 Family History no significant family his Surgical History no surgical history Social History Smoking Status: Current every day smoker tobacco type: cigarettes EXAM Physical Exam Const Vital Signs: 12/04/24 10:26 12/04/24 10:31 12/04/24 10:36 Temperature 103.3 F H 103.3 F H Temperature Source Oral Oral Pulse Rate 148 H 132 H Respiratory Rate 40 H Respiratory Pattern Blood Pressure 136/79 H 136/79 H Blood Pressure Mean 98 98 Pulse Ox 79 90 91 Oxygen Delivery Method Room Air Nasal Cannula High Flow Oxygen Flow Rate (L/min) 6 12 12/04/24 10:43 12/04/24 11:22 12/04/24 11:26 Temperature Temperature Source Pulse Rate 117 H Respiratory Rate 24 H Respiratory Pattern Normal Blood Pressure 99/67 Blood Pressure Mean 77 Pulse Ox 92 Oxygen Delivery Method High Flow Oxygen Flow Rate (L/min) 9 12/04/24 11:31 12/04/24 12:00 12/04/24 13:00 Temperature 101.2 F H 101.7 F H Temperature Source Core Core Pulse Rate 109 H 101 H 86 Respiratory Rate 18 12 18 Respiratory Pattern Blood Pressure 99/67 99/64 94/68 Blood Pressure Mean 77 75 76 Pulse Ox 93 91 97 Oxygen Delivery Method High Flow High Flow Oxygen Flow Rate (L/min) 10 10 MDM MDM MDM Narrative Medical decision making narrative: 54-year-old gentleman with past medical history of HTN, COPD, HLD, schizophrenia, DM2, CVA with right-sided paralysis and wheelchair-bound presentsfor evaluation of nausea and vomiting. Patient is a very poor historian therefore history taken by [facility] where patient resides as well as medical record. Patient was found to be febrile today at 100.5 as well as tachycardic and tachypneic. He was 72% on room air in which she was placed on nasal cannula. On presentation, patient is alert but is tachycardic, tachypneic, febrile. Placed on 12 L high flow nasal cannula with improvement inoxygenation and tachypnea. Differential diagnosis includes but is not limited to pneumonia, viral illness, COPD exacerbation, UTI, electrolyte abnormality, dehydration. Patient made a sepsis alert. 30 cc/kg bolus not given at this time due to concern of fluid overload for respiratory status as well as patient is not hypotensive. NS bolus given for now. Will give broad antibiotics including vancomycin and cefepime. Patient has a rash to penicillins. DuoNebs and Solu-Medrol ordered. Rectal Tylenol for fever. Will monitor patient's respiratory status as he may need BiPAP or intubation if it continues to declineand not improve. Sepsis workup ordered. [facility] he was [facility] for acute hypoxia secondary to COVID-19 infection. ABG shows mild hypercapnia with a PCO2 57.9 however his pH is normalat 7.363. On reevaluation, patient is doing well on high flow nasal cannula he was decreased to 10 L. His tachypnea and tachycardia has improved. His fever has improved. Will continue to monitor. His blood pressure is decreasing to 99/67. Will do 30 cc/kg bolus per ideal body weight. Another 1500mL will be ordered for a total of 2.5 L. CBC with leukocytosis of 11.9. No anemia. Platelets unremarkable. INR unremarkable. CMP without significant electrolyte abnormality. Patient does have an anion gap of 17. No MICHAEL. Lactic acid 5.1. Patient receiving fluids. No transaminitis. Troponin 35. Suspect that it is elevated due to infection. UA negative for UTI. Chest x-ray was personally viewed interpreted by me, ED physician. No pneumonia, effusion, cardiomegaly, pneumothorax. Respiratory panel pending at this time. Patient will warrant admission. His respiratory status may be secondary to COPD exacerbation from viral illness versus aspiration/early pneumonia. Merrynet was discussed with thehospitalist who accept admission to the ICU. 35 minutes of critical care time utilized in managing the patient. This is due to high probability of and deterioration of the patient based on the patient's condition and excludes any separately billable procedures. EKG: Interpreted by me/EM physician: EKG shows sinus tachycardia with nonspecific ST changes. Heart rate 131. Impression: 1. Sepsis unclear etiology although suspect respiratory 2. Acute hypoxic respiratory failure 3. COPD exacerbation 4. Elevated troponin 5. Lactic acidosis Lab Data Labs: Laboratory Results - last 24 hr 12/04/24 12/04/24 12/04/24 10:48 11:31 12:57 WBC 11.9 H RBC 5.06 Hgb 13.2 Hct 43.2 MCV 85.4 MCH 26.1 L MCHC 30.6 L RDW Std Deviation 45.2 H RDW Coeff of Thomas 14.6 Plt Count 236 MPV 9.6 Immature Gran % (Auto) 0.300 Neut % (Auto) 85.9 H Lymph % (Auto) 6.3 L Turner % (Auto) 6.8 Eos % (Auto) 0.5 Baso % (Auto) 0.2 Absolute Neuts (auto) 10.2 H Absolute Lymphs (auto) 0.75 L Nucleated RBC % 0 PT 13.4 INR 1.0 APTT 23.7 L Sodium 141 Potassium 4.3 Chloride 100 Carbon Dioxide 24.1 Anion Gap 17 H BUN 17 Creatinine 1.15 Estim Creat Clear Calc 86.37 Est GFR (MDRD) Non-Af 76 BUN/Creatinine Ratio 14.8 Glucose 112 H Lactic Acid 5.1 H* Calcium 9.6 Total Bilirubin 0.37 AST 17 ALT 7 Alkaline Phosphatase 148 H Troponin T High Sens 35 H Troponin T Hi Sens 2 Hr 91 H* Total Protein 7.3 Albumin 4.3 Globulin 3.0 Albumin/Globulin Ratio 1.4 Urine Color Yellow Urine Clarity Clear Urine pH 5.0 Ur Specific [place] 1.020 Urine Protein 30 H Urine Glucose (UA) Normal Urine Ketones 5 H Urine Occult Blood 50 H Urine Nitrite Negative Urine Bilirubin Negative Urine Urobilinogen Normal Ur Leukocyte Esterase 25 H Urine RBC 0-5 SEEN Urine WBC 0-5 SEEN Ur Squamous Epith Cells 0 SEEN Urine Bacteria 0 SEEN Urine Mucus 0 SEEN ABG Data ABG results: ABG 12/04/24 11:29 Specimen Type ART Sample Site L Brach pH 7.36 Bicarbonate Actual 32.9 H Total CO2 35 Base Excess 8 H O2 Saturation 91 L O2 % 8.0 ABG pCO2 57.9 H ABG pO2 66 L O2 Delivery Device Not entered Vent Mode Not entered Radiography Diagnostic Testing: Clinical Impression(s) from Imaging Studies Chest X-Ray 12/04/24 10:43 IMPRESSION: No acute process. Reading Location: [facility] Discharge Plan Disposition Disposition: Acute Care Hospital [facility] Discharge Date/Time: 12/04/24 14:20 What to do if you have Problems For any increased pain, shortness of breath, bleeding, nausea or vomiting, chestpain, or any unexpected problems, contact your Primary Care Provider. Call [facility] ([phone]) or report to the closest Emergency Room. Call 911 if necessary. 12/04/24 1650 <Electronically signed by Franco Benites DO> Cosigner Signature (if applicable): CC: Dr. Mame Bright MD ~ Signed [facility] Work Phone: 1(313) 317-658106-09-2025 Discharge summary [facility] Medical Records Department [address] [place] [address] Emergency Department Summary 12/04/24 MR#: [id number] Acct: [id number] Name: RIGO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 Patient's continuum of care needs are met Outcome: Progressing Problem: Glycemia Imbalance Goal: Clinical indication of glycemia balance is achieved Outcome: Not Progressing Note: Patient refuses FSBS this morning, stating he is diet controlled and doesn't want it done. [facility]11-18-2022 Note* Private Note - Jessica Pulido BSW,CANDY MAKER HELPER - 05/15/2022 1:06 PM EST Interdisciplinary Intervention Record Rigo Nate 1970 Intervention:Processing Time: 1318 - 1347 Number of Patients: 1 Achieved Goals: Progressing Goals:17B/17G Not Progressing Goals: Regressing Goals: Overall Level of Response: +2 = Explores issues; repeated info Topic:Self Care Note: Pt willingly attended group and actively engaged in group discussion. TX talked about the meaning of self-care and identified the characteristics of the three aspects of wellness with pt and other group members. Pt brained stormed with TX and group members self-care skills to promote their mind, body and spirit. Pt engaged in active listening as other members shared. Pt identified several activities for each wellness aspect and shared them with TX and other members. TX praised pt and provided emotional support and problem solving solutions Pt talked about his desire to work on setting boundaries with other, improving his diet, and being accepting and loving to those around him. Jessica Pulido 05/15/2022 1:06 PM [facility]11-18-2022 Note* Private Note - Jessica Pulido BSW, LSW - 05/15/2022 11:16 AM EST Behavioral Health Therapy Assessment Start Time: 1003 End Time: 102 1. What brought you to behavioral health? I was having thoughts to hurt myself. May 10 I had a stroke and my father . Since then Ii have been in and out of hospitals. The staff has not been helping me with walking. I can go 40 feet by myself as long as I have my leg support and someone holding my arm. They were not wanting to do any of that there. I had also fallen when I was there and they did nothing. I really hurt my ankle then too. Pt later stated I will not be coming back to these places. Pt commented he wouldblow them up. Pt would at times get confused and change subject frequently during assessment. Per Chart:Admission Type: Voluntary Reason for admission: Patient presents to [facility] ED for medical clearance and evaluation of aggressive/combative behavior with staff at fci. Patient denies SI, HI, hallucinations, and delusions. Cooperative with staff upon arrival. Patient states they do not treat him well at the fci, verbs he is made to care for himself even though he is mostly unable to do same. Patient tells this RN he does not wish to return to [facility] on discharge. Toxicology negative. 2. Any struggles with your motivation to complete tasks or engage in leisure activities? Yes. Sometimes I know what I want to say and it can't come out. 3. Do you feel there is anything preventing you from being who you want to be or doing what you want to do? Yes Not having a nice warm shower. Pt stated they have not been assisting him with showering at his current placement and that he had wanted to take a warm shower for weeks. 4. Do you have any current financial concerns or issues? No 5. Do you have any problems at home or outside of home (Friends/Family/School/Work)? Family and at the fci. Pt stated he is often not given the opportunity to make his own choices or to be his own person. Pt also talked about the of multiple family members and his struggles with his grief. 6. Are you struggling with substance use (Drugs/Alcohol/Misuse of Medication)? No *If so, do you want to stop? N/A 7. Who do you go to for support? My girlfriends. But Ii don't know if they have my best intrust. So no one right now. 8. What are your strengths, coping skills, and/or leisure activities? Warm showers, football, listing to music. 9. Are you spiritual/anabaptist? Yes 10. Any current physical health issues? 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) Hematuria, undiagnosed cause Hemiplegia, unspecified, affecting unspecified side Hypertrophy of prostate without urinary obstruction and other lower urinary tract symptoms (LUTS) Muscle weakness (generalized) Other and unspecified hyperlipidemia Other convulsions Other speech disturbance(784.59) Polyneuropathy in diabetes(357.2) Symbolic dysfunction, unspecified Type II or unspecified type diabetes mellitus with neurological manifestations, not stated as uncontrolled(250.60) Type II or unspecified type diabetes mellitus without mention of complication, not stated as uncontrolled Unspecified cerebral artery occlusion with cerebral infarction Unspecified episodic mood disorder Unspecified essential hypertension Unspecified schizophrenia, unspecified condition * Do you use any of the following? Wheelchair, and power chair 11. Do you have a need for home health care? No Pt resides in a fci. 12. What resources do you use regularly? None 13. What would you like to work on in groups or possible individual sessions? Problem Solving, Anger, Hopelessness, Self-Esteem, Verbalizing/Sharing Feelings, and Grief Therapist identified patient's weakness as: Pt struggles with utilizing healthy coping, problem solving and communication skills to manage his grief, poor self esteem, anger and with communicating effectively with his supports and others. Therapist identified patient's strengths as: Pt is willing to talk about his current life stressorsand completed the assessment with TX. Therapist observation checklist Speech: At times pt was hard to understand Appearance: appropriate Insight: poor Care Plan reviewed and updated by: MANNY Richardson LSW [facility]11-18-2022 Note* Private Note - Jessica Pulido BSW, LSW - 05/15/2022 11:11 AM EST Interdisciplinary Intervention Record Rigo Garcia 1970 Intervention:Processing Time:1020 - 1037 Number of Patients: 1 Achieved Goals: Progressing Goals:17B/ 19A Not Progressing Goals: Regressing Goals: Overall Level of Response: +2 = Explores issues; repeated info Topic:Coping and Verbalizing Feelings Note: Pt talked about his current life stressors including the of several family members, hishealth, other family members including his mother not letting pt make his own choices. Pt stated Im treated like Im a baby still when I am a grown man. Pt also talked about staff not assisting himas he wanted them to. Pt stated He wished for more independence and respect from his family and supp orts. TX provided active listening and emotonal support. TX would with pt on identifying healthy coping skills to assist pt with managing his anger, grief and frustrations. Pt was receptive to TX interventions. Jessica Pulido 05/15/2022 11:11 AM [facility]11-18-2022 History and physical note* Palma Harkins, JOSE C - 05/15/2022 10:51 AM EST Date of Service: 05/15/2022 Chief Complaint: Increased aggression HPI: Patient is a 52 y.o. male presents with increased aggression. Patient was admitted to psychiatric unit on a voluntarily basis. Rigo is admitted through the ED for increased aggression and combative behavior at the fci. He is a resident at [facility] in [place]. He states they do not treat him well at the fci and he blow my brains out if he has to return back to that fci. Heis labile during assessment and becomes tearful at the end. He is a status post stroke and uses an electric wheelchair to get around. Tiffin level is low at 0.5 and appears to be drawn during troughtime. Past Psychiatric History: What medications or treatments have been helpful in the past: EDDI Other Psych meds taken in the past and response to same: EDDI Inpatient Program 1: Location: Unsure of name Approximate Dates: Reason: bipolar Inpatient Program 2: Location:[facility] Approximate Dates: 10/15/2014 Reason: bipolar, agitation Outpatient Program 1: Location: [facility] Approximate Dates: around 2011 Reason: bipolar Family: Family History and helpful medication/treatments: schizophrenia and bipolar on paternal side of family Chemical Dependency Treatment History: Patient Denies Family: Family History and helpful medication/treatments: Denies History reviewed. No pertinent family history. 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) Hematuria, undiagnosed cause Hemiplegia, unspecified, affecting unspecified side Hypertrophy of prostate without urinary obstruction and other lower urinary tract symptoms (LUTS) Muscle weakness (generalized) Other and unspecified hyperlipidemia Other convulsions Other speech disturbance(784.59) Polyneuropathy in diabetes(357.2) Symbolic dysfunction, unspecified Type II or unspecified type diabetes mellitus with neurological manifestations, not stated as uncontrolled(250.60) Type II or unspecified type diabetes mellitus without mention of complication, not stated as uncontrolled Unspecified cerebral artery occlusion with cerebral infarction Unspecified episodic mood disorder Unspecified essential hypertension Unspecified schizophrenia, unspecified condition Past Surgical History: Procedure Laterality Date HERNIA REPAIR Medications Prior to Admission Medication Sig Dispense Refill Last Dose Acetaminophen (TYLENOL) 325 MG CAPS Take 650 mg by mouth every 4 hours as needed. calcium carbonate (TUMS) 500 MG chewable tablet Take 750 mg by mouth every 6 hours as needed for Heartburn. clopidogrel (PLAVIX) 75 MG tablet Take 75 mg by mouth daily. gabapentin (NEURONTIN) 100 MG capsule Take 200 mg by mouth 3 times daily. Taking Differently lithium 300 MG capsule Take 300 mg by mouth two times per day. melatonin 3 MG TABS Take 6 mg by mouth nightly. polyethylene glycol 3350 (MIRALAX) 17 g packet Take 17 g by mouth two times a day. sennosides-docusate sodium (SENOKOT-S) 8.6-50 MG tablet Take 1 tablet by mouth daily. simvastatin (ZOCOR) 20 MG tablet Take 20 mg by mouth nightly. Tamsulosin HCl (FLOMAX) 0.4 MG 24 hr capsule Take 0.4 mg by mouth nightly. traZODone (DESYREL) 50 MG tablet Take 25 mg by mouth two times per day. Allergies Allergen Reactions Penicillins Other (See Comments) I don't remember what reaction Advil [Ibuprofen] Other (See Comments) I have no clue what happens and I don't wanna find out. Social History Socioeconomic History Marital status: Single Occupational History Employer: UNEMPLOYED Tobacco Use Smoking status: Every Day Packs/day: 1.00 Types: Cigarettes Vaping Use Vaping Use: Never used Substance and Sexual Activity Alcohol use: Not Currently Drug use: Not Currently Sexual activity: Never Social History Social History Narrative Not on file Marital Status:Single [1] No. of Years? Per previous chart - in 2005 Relationship History including close friendships: EDDI How well do you get along with others: per report, aggressive and agitated toward others; patient cooperative and compliant on unit Significant Other/Support Person? Sister/guardian Children: denies Mother/Father: per previous admit - father Siblings: 1 brother, 1 sister Living Status: [facility] in [place] Who do you live with? See above Tobacco History: reports that he has been smoking cigarettes. He has been smoking an average of 1 pack per day. He does not have any smokeless tobacco history on file. Alcohol History: reports that he does not currently use alcohol. Drug History: reports that he does not currently use drugs. Sexual History: reports never being sexually active. Service History Service:No Employment History Employed:No Financial Concerns? denies Source of Income:SSI If Disabled List Reasons: history of stroke Educational History Educational Level Attained? HS grad, some college Admission on 05/14/2022 Component Date Value Ref Range Status Color 05/14/2022 Yellow Final Appearance Urine 05/14/2022 Clear Final Specific [place], Urine 05/14/2022 1.004 Final pH, Urine 05/14/2022 7.0 Final Protein, Ur 05/14/2022 Negative Negative Final Glucose-Urine 05/14/2022 Negative Negative Final Ketones 05/14/2022 Negative Negative Final Occult Bld 05/14/2022 Negative Negative Final Urobilinogen, UA 05/14/2022 Negative <2.0 Final Leukoesterase 05/14/2022 Negative Negative Final Nitrites 05/14/2022 Negative Negative Final Bilirubin, Urine 05/14/2022 Negative Negative Final WBC, UA 05/14/2022 3 <=5 /HPF Final RBC, UA 05/14/2022 <1 <=5 /HPF Final White Blood Cells 05/14/2022 9.3 4.3 - 10.3 x10*3/uL Final RBC 05/14/2022 4.26 3.70 - 5.70 x10*6/uL Final Hgb 05/14/2022 12.2 (A) 12.8 - 17.7 g/dL Final Hematocrit 05/14/2022 39.4 37.7 - 51.1 % Final MCV 05/14/2022 92.5 80.6 - 99 fL Final MCH 05/14/2022 28.6 27.0 - 34.2 pg Final MCHC 05/14/2022 31.0 (A) 31.4 - 36.2 g/dL Final RDW-CV 05/14/2022 13.8 11.5 - 14.5 % Final Platelets 05/14/2022 192 150 - 400 x10*3/uL Final Neutrophil % 05/14/2022 63.9 % Final Absolute Neutrophil 05/14/2022 5.9 2.4 - 6.6 x10*3/uL Final Lymphocyte % 05/14/2022 24.4 % Final Absolute Lymph 05/14/2022 2.3 1.2 - 3.3 x10*3/uL Final Monocytes % 05/14/2022 7.5 % Final Absolute Turner 05/14/2022 0.7 (A) 0.2 - 0.6 x10*3/uL Final Eosinophil % 05/14/2022 3.5 % Final Absolute Eosinophil 05/14/2022 0.3 0.1 - 0.3 x10*3/uL Final Basophil % 05/14/2022 0.5 % Final Absolute Basophil 05/14/2022 0.1 0.0 - 0.1 x10*3/uL Final Immature Granulocytes % 05/14/2022 0.2 % Final Absolute Immature Granulocytes 05/14/2022 0.0 0.0 - 0.1 x10*3/uL Final nRBC 05/14/2022 0.0 0.0 - 1.0 % Final Sodium 05/14/2022 138.1 135 - 147 mmol/L Final Potassium 05/14/2022 4.2 3.6 - 5.1 mmol/L Final Chloride 05/14/2022 105 96 - 109 mmol/L Final CO2 05/14/2022 28.5 22 - 30 mmol/L Final Glucose 05/14/2022 92.5 65 - 100 mg/dL Final BUN 05/14/2022 20.7 8 - 26 mg/dL Final Creatinine 05/14/2022 1.10 0.66 - 1.25 mg/dL Final Calcium 05/14/2022 9.3 8.4 - 10.4 mg/dL Final EGFR 05/14/2022 80.8 >=60.0 mL/min/1.73m*2 Final Anion Gap 05/14/2022 5 (A) 8 - 12 mmol/L Final Carbamazepine 05/14/2022 6.4 4.0 - 12.0 ug/mL Final Tiffin Lvl 05/14/2022 0.5 (A) 0.6 - 1.2 mmol/L Final Extra Tube 05/14/2022 Hold for add-ons. Final Extra Tube 05/14/2022 Hold for add-ons. Final Extra Tube 05/14/2022 Hold for add-ons. Final Extra Tube 05/14/2022 Hold for add-ons. Final Extra Tube 05/14/2022 Hold for add-ons. Final Amphetamine/Meth 05/14/2022 Not Detected Not Detected (Cutoff <1000 ng/mL) Final Barbiturates 05/14/2022 Not Detected Not Detected (Cutoff <200 ng/mL) Final Benzodiazepines 05/14/2022 Not Detected Not Detected (Cutoff <200 ng/mL) Final Cocaine Screen 05/14/2022 Not Detected Not Detected (Cutoff <300 ng/mL) Final Opiates 05/14/2022 Not Detected Not Detected (Cutoff <300 ng/mL) Final PCP 05/14/2022 Not Detected Not Detected (Cutoff <25 ng/mL) Final Marijuana/THC 05/14/2022 Not Detected Not Detected (Cutoff <50 ng/mL) Final Fentanyl 05/14/2022 Not Detected Not Detected (Cutoff 1.0 ng/mL) Final Triglycerides 05/14/2022 150 <=150 mg/dL Final Cholesterol 05/14/2022 132 <=200 mg/dL Final HDL 05/14/2022 45.7 40.0 - 59.9 mg/dL Final LDL Calculated 05/14/2022 56.3 <=100 mg/dL Final VLDL Cholesterol [place] 05/14/2022 30 <=41 mg/dL Final Syphilis Treponema Antibody 05/14/2022 Nonreactive Nonreactive Final TSH [place] 05/14/2022 0.615 0.465 - 4.680 uIU/mL Final A1c 05/14/2022 5.7 <=6.0 % Final PHYSICAL REVIEW OF SYSTEMS: CONSTITUTIONAL: The patient denied fever, chills, weight changes, and appetite changes. SKIN: Patient denied any rashes or nonhealing lesions. MUSCULOSKELETAL: The patient denied any bone pain, joint pain, joint swelling, muscle aches, and history of fractures. HEAD: The patient denied any headaches and dizziness. EYES: The patient denied any changes in vision, pain in eyes, or double vision. ENT: The patient denied any pain, decreased hearing, bleeding or enlarged glands. RESPIRATORY: The patient denied any cough or shortness of breath. CARDIOVASCULAR: The patient denied any shortness of breath, palpitations, or chest pain. GASTROINTESTINAL: The patient denied any heartburn, nausea, vomiting, constipation, diarrhea, or melena. GENITOURINARY: The patient denied any urinary problems, kidney problems. NEUROLOGIC: The patient denied any paralysis, right side is flacid, memory loss, or vertigo. ENDOCRINE: The patient denied any intolerance to heat or cold, frequent thirst, hunger, or urination. HEMATOLOGIC: The patient denied any easy bruising or anemia. PSYCHIATRIC: It was done in detail in [facility]. Objective: Patient Vitals for the past 8 hrs: BP Temp Temp src Pulse Resp SpO2 05/15/22 1036 116/58 98.7 F (37.1 C) FOREHEAD 79 18 93 % 05/15/22 0527 124/60 97.5 F (36.4 C) Tympanic 66 16 95 % PHYSICAL EXAMINATION: HEENT: Atraumatic, normocephalic. Extraocular movement intact. NECK: Supple without thyromegaly. CHEST: Lungs clear bilaterally. HEART: Regular rate and rhythm. ABDOMEN: Soft, nontender, positive bowel sounds. EXTREMITIES: Right side flacid NEUROLOGIC: Extraocular movements are intact. Pupils equal, reactive to light. No facial asymmetry noted. [id number] within normal limits. Reflexes 2+ and strength 5/5 on left side. Mental Status Evaluation: APPEARANCE: Stated age. GROOMING: Casual. ATTITUDE: Cooperative and spontaneous. EYE CONTACT: Good. SENSORIUM: Alert and oriented to place, and person. PSYCHOMOTOR MOVEMENTS: No agitation. No slowing. No abnormal movements noted. Uses wheelchairSPEECH: Normal in rate and volume. MOOD: Labile. AFFECT: Labile. THOUGHT CONTENT: The patient denies suicidal ideation, denied any intent or plan. Denied any homicidal ideation, intent, or plan. The patient denied any delusions, or ideas of references. PERCEPTION: The patient denied any auditory or visual hallucinations. THOUGHT PROCESS: Goal directed. No loosening of association. Attention and concentration intact. MEMORY: Intact for recent and remote memory. FUND OF KNOWLEDGE: Average. INSIGHT: Poor. JUDGMENT: Poor. Diagnosis: Active Hospital Problems Diagnosis Bipolar disorder, current episode mixed, moderate (HCC) [F31.62] Plan: Treatment options and alternatives reviewed with patient and they concur with the plan. Labs were reviewed. Patient admitted to [facility] and will be kept on safety watch. Encouraged to attend groups. We will provide a therapeutic, non threatening environment. Medications- Increase Tiffin to 450mg twice a day Family conference and discharge planning will be done. Estimated length of stay 2-4 days Palma Meyers 05/15/2022 Associated attestation - Vijay Krishnamurthy MD - 05/15/2022 11:06 AM EST Patient was independently evaluated by the psychiatrist by video and the findings of nurse practitioner's are confirmed. No change in recommendation is made. [facility]11-18-2022 History and physical note* Palma Harkins, JOSE C - 05/15/2022 10:51 AM EST Date of Service: 05/15/2022 Chief Complaint: Increased aggression HPI: Patient is a 52 y.o. male presents with increased aggression. Patient was admitted to psychiatric unit on a voluntarily basis. Rigo is admitted through the ED for increased aggression and combative behavior at the [facility]ci. He is a resident at [facility] in [place]. He states they do not treat him well at the fci and he blow my brains out if he has to return back to that fci. Heis labile during assessment and becomes tearful at the end. He is a status post stroke and uses an electric wheelchair to get around. Tiffin level is low at 0.5 and appears to be drawn during troughtime. Past Psychiatric History: What medications or treatments have been helpful in the past: EDDI Other Psych meds taken in the past and response to same: EDDI Inpatient Program 1: Location: Unsure of name Approximate Dates: Reason: bipolar Inpatient Program 2: Location:[facility] Approximate Dates: 10/15/2014 Reason: bipolar, agitation Outpatient Program 1: Location: [facility] Approximate Dates: around 2011 Reason: bipolar Family: Family History and helpful medication/treatments: schizophrenia and bipolar on paternal side of family Chemical Dependency Treatment History: Patient Denies Family: Family History and helpful medication/treatments: Denies History reviewed. No pertinent family history. 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) Hematuria, undiagnosed cause Hemiplegia, unspecified, affecting unspecified side Hypertrophy of prostate without urinary obstruction and other lower urinary tract symptoms (LUTS) Muscle weakness (generalized) Other and unspecified hyperlipidemia Other convulsions Other speech disturbance(784.59) Polyneuropathy in diabetes(357.2) Symbolic dysfunction, unspecified Type II or unspecified type diabetes mellitus with neurological manifestations, not stated as uncontrolled(250.60) Type II or unspecified type diabetes mellitus without mention of complication, not stated as uncontrolled Unspecified cerebral artery occlusion with cerebral infarction Unspecified episodic mood disorder Unspecified essential hypertension Unspecified schizophrenia, unspecified condition Past Surgical History: Procedure Laterality Date HERNIA REPAIR Medications Prior to Admission Medication Sig Dispense Refill Last Dose Acetaminophen (TYLENOL) 325 MG CAPS Take 650 mg by mouth every 4 hours as needed. calcium carbonate (TUMS) 500 MG chewable tablet Take 750 mg by mouth every 6 hours as needed for Heartburn. clopidogrel (PLAVIX) 75 MG tablet Take 75 mg by mouth daily. gabapentin (NEURONTIN) 100 MG capsule Take 200 mg by mouth 3 times daily. Taking Differently lithium 300 MG capsule Take 300 mg by mouth two times per day. melatonin 3 MG TABS Take 6 mg by mouth nightly. polyethylene glycol 3350 (MIRALAX) 17 g packet Take 17 g by mouth two times a day. sennosides-docusate sodium (SENOKOT-S) 8.6-50 MG tablet Take 1 tablet by mouth daily. simvastatin (ZOCOR) 20 MG tablet Take 20 mg by mouth nightly. Tamsulosin HCl (FLOMAX) 0.4 MG 24 hr capsule Take 0.4 mg by mouth nightly. traZODone (DESYREL) 50 MG tablet Take 25 mg by mouth two times per day. Allergies Allergen Reactions Penicillins Other (See Comments) I don't remember what reaction Advil [Ibuprofen] Other (See Comments) I have no clue what happens and I don't wanna find out. Social History Socioeconomic History Marital status: Single Occupational History Employer: UNEMPLOYED Tobacco Use Smoking status: Every Day Packs/day: 1.00 Types: Cigarettes Vaping Use Vaping Use: Never used Substance and Sexual Activity Alcohol use: Not Currently Drug use: Not Currently Sexual activity: Never Social History Social History Narrative Not on file Marital Status:Single [1] No. of Years? Per previous chart - in 2005 Relationship History including close friendships: EDDI How well do you get along with others: per report, aggressive and agitated toward others; patient cooperative and compliant on unit Significant Other/Support Person? Sister/guardian Children: denies Mother/Father: per previous admit - father Siblings: 1 brother, 1 sister Living Status: [facility] Who do you live with? See above Tobacco History: reports that he has been smoking cigarettes. He has been smoking an average of 1 pack per day. He does not have any smokeless tobacco history on file. Alcohol History: reports that he does not currently use alcohol. Drug History: reports that he does not currently use drugs. Sexual History: reports never being sexually active. Service History Service:No Employment History Employed:No Financial Concerns? denies Source of Income:SSI If Disabled List Reasons: history of stroke Educational History Educational Level Attained? HS grad, some college Admission on 05/14/2022 Component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 result Please view results for these tests on the individual orders. RADIOGRAPHIC IMAGING (if any, during ED visit): No orders to display MEDICATIONS ORDERED/GIVEN (if any, during ED visit): Medications - No data to display MDM Review of Systems: Review of Systems Constitutional: Negative for fever. HENT: Negative for drooling. Eyes: Negative for discharge. Respiratory: Negative for stridor. Gastrointestinal: Negative for anal bleeding. Endocrine: Negative for polyphagia. Genitourinary: Negative for hematuria. Skin: Negative for rash. Neurological: Negative for facial asymmetry. Hematological: Does not bruise/bleed easily. Psychiatric/Behavioral: Negative for behavioral problems. Past Medical, Surgical, Family, and Social History: Past Medical History: Past Medical History: Diagnosis Date Bipolar 1 disorder (HCC) BPH (benign prostatic hypertrophy) COPD (chronic obstructive pulmonary disease) (HCC) Depression Diabetes mellitus (HCC) Dysarthria GERD (gastroesophageal reflux disease) Hyperlipidemia Hypertension Schizophrenia (HCC) Seizures (HCC) convulsions Stroke (HCC) Past medical history reviewed. Past Surgical History: Past Surgical History: Procedure Laterality Date FINGER SURGERY Right Past surgical history reviewed. Family History: Family History Family history unknown: Yes Family history reviewed. Social History: Social History Socioeconomic History Marital status: Single Spouse name: Not on file Number of children: Not on file Years of education: Not on file Highest education level: Not on file Occupational History Not on file Social Needs Financial resource strain: Not on file Food insecurity Worry: Not on file Inability: Not on file Transportation needs Medical: Not on file Non-medical: Not on file Tobacco Use Smoking status: Current Every Day Smoker Packs/day: 1.00 Years: 39.00 Pack years: 39.00 Smokeless tobacco: Never Used Substance and Sexual Activity Alcohol use: Yes Alcohol/week: 1.0 standard drinks Types: 1 Cans of beer per week Comment: drink every couple of days, pt lives in a [facility] and this rn unsure if this is correct Drug use: No Sexual activity: Never Lifestyle Physical activity Days per week: Not on file Minutes per session: Not on file Stress: Not on file Relationships Social connections Talks on phone: Not on file Gets together: Not on file Attends anabaptist service: Not on file Active member of club or organization: Not on file Attends meetings of clubs or organizations: Not on file Relationship status: Not on file Other Topics Concern Not on file Social History Narrative Past Psychiatric History Hospitalizations: Several since the age of 15- [facility] 2012, [facility] 2012 Diagnoses: Bipolar DO, MDD, Schizophrenia Outpatient Treatment: Dr. Maddox at [facility]. He has a guardian: Chris Garcia, or her cellphone [phone] Medication Trials: Invega Sustenna, Zyprexa, Depakote, Buspar, Invega, Tiffin, Celexa, Xanax Current Medications: Xanax, Tiffin, Celexa Self-harm Behavior: Denies Suicide Attempts: Denies Substance Abuse History Nicotine: 1ppd x 30+ years Alcohol: History of alcohol abuse Illicit Drugs: Cannabis, chemical solvents Substance Treatment: Denies Family History Psychiatric: Schizophrenia and MDD History of Completed Suicide: Denies Substance Abuse: Denies Social History: He was adopted at the age 2. It is believed that his biological mother was mentally ill, and as a result ended up giving the child up for adoption. This patient was raised in a stable family with siblings, and did well until adolescence. He dates the age of 15-1/2 when he began to develop difficulties which were consistent with a developing mental illness picture. Unfortunately, he has a significant amount of chronic mental illness, and has essentially been on disability his entire life secondary to psychiatric reasons. He was in learning disorder classes. His parents did get a divorce, and were at the time of the father's . The father developed Mamie Gehrig's disease, ALS, and he had a fairly rapid downhill course before his . He did set up a trust for our patient, his son. twice, once for a very short time. He dated a girl for about a month during a manic episode and they a but soon after . His second marriage lasted for about 6 years and was in . No children. Denies history or access to weapons. Social history reviewed. Allergies and Medications: Allergies: Allergies Allergen Reactions Ibuprofen Medications: Patient's Medications New Prescriptions No medications on file Previous Medications ACETAMINOPHEN (TYLENOL) 325 MG TABLET Take 650 mg by mouth every 6 (six) hours as needed for pain. ALBUTEROL 90 MCG/ACTUATION INHALER Inhale 2 puffs every 4 (four) hours as needed for wheezing or shortness of breath. ALPRAZOLAM (XANAX) 0.5 MG TABLET Take 0.5 mg by mouth every 8 (eight) hours as needed for anxiety. BENZONATATE (TESSALON) 200 MG CAPSULE Take 200 mg by mouth 3 (three) times a day as needed for cough. CLOPIDOGREL (PLAVIX) 75 MG TABLET Take 75 mg by mouth daily Reasons: Cerebral Thromboembolism Prevention. GABAPENTIN (NEURONTIN) 100 MG CAPSULE Take 100 mg by mouth 2 (two) times a day Reasons: Neuropathic Pain. IPRATROPIUM-ALBUTEROL (DUO-NEB) 0.5-2.5 MG/3 ML NEBULIZER Take 3 mL by nebulization every 6 (six) hours as needed for wheezing or shortness of breath. LITHIUM 300 MG CAPSULE Take 300 mg by mouth 2 (two) times a day with meals Reasons: Bipolar Disorder. LOPERAMIDE (IMODIUM) 2 MG CAPSULE Take 2 mg by mouth 4 (four) times a day as needed for diarrhea. METFORMIN (GLUCOPHAGE) 500 MG TABLET Take 500 mg by mouth 2 (two) times a day with meals Reasons: type 2 diabetes mellitus. ONDANSETRON (ZOFRAN ODT) 4 MG DISINTEGRATING TABLET Dissolve 1 (one) tablet (4 mg total) on top of tongue every 4 (four) hours as needed for nausea . OXYCODONE-ACETAMINOPHEN (PERCOCET) 5-325 MG PER TABLET Take 1 (one) tablet by mouth every 6 (six) hours as needed for pain . SIMVASTATIN (ZOCOR) 20 MG TABLET Take 20 mg by mouth nightly Reasons: hyperlipidemia. Modified Medications No medications on file Discontinued Medications No medications on file Physical Exam: Vital Signs There were no vitals taken for this visit. Physical Exam Vitals signs and nursing note reviewed. Constitutional: General: He is not in acute distress. Appearance: He is not toxic-appearing. HENT: Head: Normocephalic and atraumatic. Right Ear: External ear normal. Left Ear: External ear normal. Mouth/Throat: Comments: Poor dentition Eyes: General: No scleral icterus. Conjunctiva/sclera: Conjunctivae normal. Neck: Musculoskeletal: Normal range of motion and neck supple. Cardiovascular: Heart sounds: Normal heart sounds. Pulmonary: Effort: Pulmonary effort is normal. Breath sounds: No wheezing. Abdominal: General: There is no distension. Palpations: Abdomen is soft. There is no mass. Tenderness: There is no abdominal tenderness. There is no guarding or rebound. Musculoskeletal: General: No swelling or tenderness. Skin: Capillary Refill: Capillary refill takes less than 2 seconds. Findings: No rash. Neurological: General: No focal deficit present. Mental Status: He is oriented to person, place, and time. Comments: Right upper and lower extremity weakness Psychiatric: Mood and Affect: Mood normal. Behavior: Behavior normal. Vital Signs During ED Visit (as charted by nursing) No data found. PROCEDURES (if any, during ED visit): Procedures Joon Atkinson MD 04/04/20 1517 PT BELONGINGS LOCKED IN LOCKER C1 AT THIS TIME, NO VALUABLES NOTED, CELL PHONE NOTED Patient placed in BLUE GOWN Patient arrives from [facility] via critical care ambulance after staff states patient has refused psychiatric medications for 2 days. Staff reported to medics that patient has become increasingly verbally aggressive to staff threatening to kill them but never becoming physically aggressive. Patient is cooperative on arrival. Bed: 44 Expected date: Expected time: Means of arrival: Comments: Cc95/ pss/ remington documented in this encounter Scheduled Active and Recently Administ ered Medications (unrecognized section and content) Medication Order 12/10/2020 12/11/2020 12/12/2020 atorvastatin (LIPITOR) tablet 20 mg 20 mg, Oral, Nightly, First dose on Wed12/12/20 at 2100 carBAMazepine (TEGRETOL) tablet 200 mg 200 mg, Oral, 2 times daily with meals, First dose on Wed12/12/20 at 0800, CATEGORY C HAZARDOUS DRUG use safe handling precautions. Use reference link to view PPE guidelines. Minimize crushing/splitting only to situations where clinically necessary. 0837 (Given - Provid er: Melissa Thompson RN) citalopram (CELEXA) tablet 10 mg (CANCELED) 10 mg, Oral, Daily, First dose on Wed12/12/20 at 0900 0830 (Given - Provid er: Melissa Thompson RN) citalopram (CELEXA) tablet 10 mg 10 mg, Oral, Once, On Wed12/12/20 at 1100, For 1 dose 1100 (Hold - Provide r: Melissa Thompson RN - Reason: Patient/family refused) citalopram (CELEXA) tablet 20 mg 20 mg, Oral, Daily, First dose (after last modification) on Wed12/13/20 at 0900 clopidogreL (PLAVIX) tablet 75 mg 75 mg, Oral, Daily, First dose on Wed12/12/20 at 0900 0830 (Given - Provid er: Melissa Thompson RN) gabapentin (NEURONTIN) capsule 100 mg 100 mg, Oral, 2 times daily, First dose on Wed12/12/20 at 0900 0829 (Given - Provid er: Melissa Thompson RN) haloperidoL (HALDOL) tablet 5 mg 5 mg, Oral, 3 times daily, First dose on Wed12/12/20 at 1300, May cause QT interval prolongation. 1300 (Not Given - Pr ovider: Melissa Thompson RN - Reason: Patient/family refused) lithium capsule 300 mg 300 mg, Oral, 2 times daily, First dose (after last modification) on Wed12/12/20 at 2100 lithium capsule 450 mg (CANCELED) 450 mg, Oral, 2 times daily, First dose on Wed12/12/20 at 0900 0830 (Given - Provid er: Melissa M Hostutler, RN) senna-docusate (SENNA-S) 8.6-50 mg per tablet 1 tablet 1 tablet, Oral, 2 times daily, First dose on Wed12/12/20 at 0900, Hold for loose stools Do Not Crush or Chew if administering orally due to bitter taste. May be crushed if given via tube. 828 (Given - Provid er: Melissa Thompson RN) tamsulosin (FLOMAX) 24 hr capsule 0.4 mg 0.4 mg, Oral, Nightly, First dose on Wed12/12/20 at 2100, DO NOT CRUSH OR CHEW. Give 30 minutes after the same meal daily. Monitor for orthostasis due to potential risk of syncope. traZODone (DESYREL) tablet 50 mg 50 mg, Oral, 3 times daily, First dose on Wed12/12/20 at 1500 PRN Medication Order 12/10/2020 12/11/2020 12/12/2020 acetaminophen (TYLENOL) tablet 650 mg 650 mg, Oral, Every 4 hours PRN, mild pain, Starting on Wed12/12/20 at 0332 albuterol inhaler 2 puff 2 puff, Inhalation, Every 4 hours PRN, wheezing, shortness of breath, Starting on Wed12/12/20 at 0333, SPACER REQUIRED FOR ADMINISTRATION aluminum-magnesium hydroxide-simethicone (MAALOX PLUS) 200-200-20 mg/5 mL suspension 30 mL 30 mL, Oral, Every 4 hours PRN, indigestion, Starting on Wed12/12/20 at 0332 hydrOXYzine (ATARAX) tablet 50 mg 50 mg, Oral, Every 6 hours PRN, anxiety, Starting on Wed12/12/20 at 0332 magnesium hydroxide (MOM) 400 mg/5 mL suspension 2,400 mg 2,400 mg (30 mL), Oral, Daily PRN, constipation, constipation, Starting on Wed12/12/20 at 0332 melatonin tablet 6 mg 6 mg, Oral, Nightly PRN, for insomnia, Starting on Wed12/12/20 at 1100 Scheduled Medication Order 05/16/2022 05/17/2022 05/18/2022 atorvastatin (LIPITOR) tablet 20 mg 20 mg, Oral, NIGHTLY, First dose on Wed05/15/22 at 2100, Until Discontinued 2116 (Given - Provider: Nury Morrissey LPN) 2100 (Given - Provider: Lila Costello RN) 2099 (Due) clopidogrel (PLAVIX) tablet 75 mg 75 mg, Oral, DAILY, First dose on Wed05/15/22 at 0900, Until Discontinued 910 (Given - Provider: Sanam Elkins LPN) 0904 (Given - Provider: Sanam Elkins LPN) 0855 (Given - Provider: Sanam Elkins LPN) gabapentin (NEURONTIN) capsule 200 mg 200 mg, Oral, 3 TIMES DAILY, First dose on Wed05/15/22 at 0900, Until Discontinued 910 (Given - Provider: Sanam Elkins LPN)143 (Given - Provider: Sanam Elkins LPN)2117 (Given - Provider: Nury Morrissey LPN) 09 (Given - Provider: Sanam Elkins LPN)142 (Given - Provider: Sanam Elkins LPN)2100 (Given - Provider: Lila Costello RN) 0855 (Given - Provider: Sanam Elkins LPN)1499 (Due)2099 (Due) lithium capsule 450 mg 450 mg, Oral, BID, First dose (after last modification) on Wed05/15/22 at 2100, Until Discontinued 910 (Given - Provider: Sanam Elkins LPN)2117 (Given - Provider: Nury Morrissey LPN) 0909 (Not Given - Provider: Sanam Elkins LPN - Reason: Other - Comment: refused lithum level)2100 (Given - Provider: Lila Costello RN) 0854 (Given - Provider: Sanam Elkins LPN)2099 (Due) melatonin tablet 6 mg 6 mg, Oral, NIGHTLY, First dose on Wed05/15/22 at 2100, Until Discontinued 2118 (Given - Provider: Nury Morrissey LPN) 2100 (Given - Provider: Lila Costello RN) 2099 (Due) polyethylene glycol 3350 (GLYCOLAX, MIRALAX) packet 17 g 17 g, Oral, TWO TIMES A DAY, First dose on Wed05/15/22 at 0900, Until Discontinued 1026 (Given - Provider: Sanam Elkins LPN)2124 (Not Given - Provider: Nury Morrissey LPN - Reason: Other - Comment: Pt continues to have healthy amounts of bowel movements.) 904 (Given - Provider: Sanam Elkins LPN)2103 (Given - Provider: Lila Costello RN) 08 (Given - Provider: Sanam Elkins LPN)2099 (Due) senna-docusate (PERICOLACE) 8.6-50 MG per tablet 1 tablet 1 tablet, Oral, DAILY, First dose on Wed05/15/22 at 0900, Until Discontinued 910 (Given - Provider: Sanam Elkins LPN) 903 (Given - Provider: Sanam Elkins LPN) 854 (Given - Provider: Sanam Elkins LPN) Tamsulosin HCl (FLOMAX) 24 hr capsule 0.4 mg 0.4 mg, Oral, NIGHTLY, First dose on Wed05/15/22 at 2100, Until Discontinued, Caution: Do not crush or chew. Give with food. 2116 (Given - Provider: Nury Morrissey LPN) 2100 (Given - Provider: Lila Costello RN) 2099 (Due) traZODone (DESYREL) tablet 25 mg 25 mg, Oral, BID, First dose on Wed05/15/22 at 0900, Until Discontinued, Caution: This medication looks and/or sounds like another medication. 910 (Given - Provider: Sanam Elkins LPN)2117 (Given - Provider: Nury Morrissey LPN) 903 (Given - Provider: Sanam Elkins LPN)2100 (Given - Provider: Lila Costello RN) 08 (Given - Provider: Sanam Elkins LPN)2099 (Due) PRN Medication Order 05/16/2022 05/17/2022 05/18/2022 acetaminophen (TYLENOL) tablet 650 mg 650 mg, Oral, EVERY 4 HOURS PRN, Mild Pain, Fever, Starting on Wed05/15/22 at 0122, Until Discontinued 214 (Given - Provider: Danica Harris RN)1024 (Given - Provider: Sanam Elkins LPN)2121 (Given - Provider: Nury Morrissey LPN) 903 (Given - Provider: Sanam Elkins LPN)2104 (Given - Provider: Lila Costello RN) 0105 (Given - Provider: Sebas Wilde, UNIQUE) calcium carbonate (TUMS) chewable tablet 750 mg 750 mg, Oral, EVERY 6 HOURS PRN, Heartburn, Starting on Wed05/15/22 at 0123, Until Discontinued Scheduled Medication Order 07/06/2022 07/07/2022 07/08/2022 atorvastatin (LIPITOR) tablet 20 mg 20 mg, oral, Nightly, First dose on Wed06/09/22 at 2100 2203 (Given - Provider: Ceasar Sloan, UNIQUE) 2110 (Given - Provider: Ceasar Sloan, UNIQUE) cholecalciferol (VITAMIN D-3) capsule 50,000 Units 50,000 Units, oral, Weekly, First dose on Wed06/17/22 at 0900 0900 (Canceled Entry - Provider: Automatic Discharge Provider - Comment: Automatically canceled at discontinue of medication order) clopidogreL (PLAVIX) tablet 75 mg 75 mg, oral, Daily, First dose on Wed06/09/22 at 1133 0937 (Given - Provider: Aurora Rollins RN) 0911 (Given - Provider: David Ruffin, UNIQUE) 0900 (Canceled Entry - Provider: Automatic Discharge Provider - Comment: Automatically canceled at discontinue of medication order) enoxaparin (LOVENOX) injection 40 mg 40 mg, subcutaneous, Every 24 hours scheduled, First dose on Wed06/09/22 at 1900, Indication: VTE/PE Prophylaxis 0939 (Not Given - Provider: Aurora Rollins RN - Reason: Other) 0911 (Not Given - Provider: David Ruffin RN - Reason: Patient/Resident/Age nt refused - education provided ) 0900 (Canceled Entry - Provider: Automatic Discharge Provider - Comment: Automatically canceled at discontinue of medication order) gabapentin (NEURONTIN) capsule 300 mg 300 mg, oral, 3 times daily, First dose (after last modification) on Wed06/23/22 at 2100 0938 (Given - Provider: Aurora Rollins RN)1329 (Given - Provider: Aurora Rollins RN)2202 (Given - Provider: Ceasar SloanUNIQUE) 0912 (Given - Provider: David Ruffin RN)1345 (Given - Provider: David Ruffin, RN)2110 (Given - Provider: Ceasar Sloan, UNIQUE) 0900 (Canceled Entry - Provider: Automatic Discharge Provider - Comment: Automatically canceled at discontinue of medication order) haloperidoL (HALDOL) tablet 5 mg 5 mg, oral, 3 times daily, First dose (after last modification) on Wed07/01/22 at 1400 0937 (Given - Provider: Aurora Rollins RN)1329 (Given - Provider: Aurora Rollins RN)2203 (Given - Provider: Ceasar Sloan, UNIQUE) 0912 (Given - Provider: David Ruffin RN)1345 (Given - Provider: David Ruffin RN)2109 (Given - Provider: Ceasar Sloan RN) 0900 (Canceled Entry - Provider: Automatic Discharge Provider - Comment: Automatically canceled at discontinue of medication order) lithium capsule 300 mg 300 mg, oral, 2 times daily with meals, First dose (after last modification) on Wed06/10/22 at 1700 0937 (Given - Provider: Aurora Rollins RN)1731 (Given - Provider: Aurora Rollins RN) 0911 (Given - Provider: David Ruffin RN)1747 (Given - Provider: Ceasar Sloan RN) 0800 (Canceled Entry - Provider: Automatic Discharge Provider - Comment: Automatically canceled at discontinue of medication order) melatonin tablet 6 mg 6 mg, oral, Nightly, First dose on Wed06/09/22 at 2100 2203 (Given - Provider: Ceasar Sloan RN) 2110 (Given - Provider: Ceasar Sloan, UNIQUE) naltrexone (DEPADE) tablet 50 mg 50 mg, oral, Daily, First dose on Wed06/16/22 at 1545, With food Ok'd by Guardian 0938 (Given - Provider: Aurora Rollins RN) 0912 (Given - Provider: David Ruffin, UNIQUE) 0900 (Canceled Entry - Provider: Automatic Discharge Provider - Comment: Automatically canceled at discontinue of medication order) nicotine (NICODERM CQ) 14 mg/24 hr patch 1 patch 1 patch, transdermal, Administer over 24 Hours, Daily, First dose (after last modification) on Wed06/23/22 at 2115 2203 (Patch Applied - Provider: Ceasar Sloan RN)2216 (Not Given - Provider: Ceasar Sloan RN - Reason: Other - Comment: no patch present) 2109 (Patch Applied - Provider: Ceasar Sloan RN)2112 (Patch Removed - Provider: Ceasar Sloan RN) 0850 (Due: Patch Removed - Provider: Automatic Discharge Provider - Comment: Time automatically adjusted from order being discontinued) senna-docusate (PERICOLACE) 8.6-50 mg per tablet 1 tablet 1 tablet, oral, Daily, First dose on Wed06/09/22 at 1900 0937 (Given - Provider: Aurora Rollins RN) 0912 (Given - Provider: David Ruffin, UNIQUE) 0900 (Canceled Entry - Provider: Automatic Discharge Provider - Comment: Automatically canceled at discontinue of medication order) tamsulosin (FLOMAX) 24 hr capsule 0.4 mg 0.4 mg, oral, Nightly, First dose on Wed06/09/22 at 2100, Do not crush, chew, or open. For tube administration: open capsule and administer with water (granules should NOT be crushed). 2202 (Given - Provider: Ceasar Sloan RN) 2108 (Given - Provider: Ceasar Sloan RN) traZODone (DESYREL) tablet 25 mg 25 mg, oral, 3 times daily, First dose (after last modification) on Wed06/17/22 at 2000 0937 (Given - Provider: Aurora Rollins RN)1329 (Given - Provider: Aurora Rollins RN)2202 (Given - Provider: Ceasar Sloan RN) 0912 (Given - Provider: David Ruffin, RN)1345 (Given - Provider: David Ruffin, RN)2109 (Given - Provider: Ceasar Sloan RN) 0800 (Canceled Entry - Provider: Automatic Discharge Provider - Comment: Automatically canceled at discontinue of medication order) PRN Medication Order 07/06/2022 07/07/2022 07/08/2022 acetaminophen (TYLENOL) tablet 650 mg 650 mg, oral, Every 4 hours PRN, mild pain, Starting on Wed06/09/22 at 1132 benztropine (COGENTIN) tablet 1 mg 1 mg, oral, 2 times daily PRN, extrapyramidal symptoms, Starting on Wed07/01/22 at 1314, Nursing- please contact provider if PRN dose is required calcium carbonate (TUMS) chewable tablet 500 mg 500 mg, oral, 4 times daily PRN, indigestion, heartburn, Starting on Wed06/29/22 at 0515, Ordered as calcium carbonate. 500 mg calcium carbonate = 200 mg elemental calcium. dextrose (D50W) 50% injection 12.5 g 12.5 g, intravenous, Every 15 min PRN, low blood sugar, moderate hypoglycemia *Patient is Unconscious, NPO, unable to swallow: BG GREATER than OR equal to 54 mg/dL*, Starting on Wed06/09/22 at 2151 dextrose (D50W) 50% injection 25 g 25 g, intravenous, Every 15 min PRN, low blood sugar, severe hypoglycemia *Patient is Unconscious, NPO, unable to swallow: BG LESS than 54 mg/dL*, Starting on Wed06/09/22 at 2151 dextrose 15 gram/59 mL oral solution 15 g 15 g, oral, Every 15 min PRN, low blood sugar, hypoglycemia *Patient conscious AND able to drink and swallow safely*, Starting on Wed06/09/22 at 2151 dextrose 15 gram/59 mL oral solution 30 g 30 g, oral, Every 15 min PRN, low blood sugar, hypoglycemia *Patient conscious AND able to drink and swallow safely*, Starting on Wed06/09/22 at 2151 glucagon injection 1 mg 1 mg, intramuscular, Once as needed, low blood sugar, severe hypoglycemia, Starting on Wed06/09/22 at 2151, For 1 dose haloperidoL (HALDOL) tablet 5 mg(Linked Group 1) 5 mg, oral, Every 8 hours PRN, agitation, Starting on Wed06/10/22 at 1226 haloperidol lactate (HALDOL) injection 5 mg(Linked Group 1) 5 mg, intramuscular, Every 6 hours PRN, agitation, Starting on Wed06/10/22 at 1226, Must be on telemetry if given IV. May be ordered via either intramuscular or intravenous route. If ordered IV, maximum of 5 mg/minute. ipratropium-albuteroL (DUONEB) 0.5-2.5 mg/3 mL nebulizer solution 3 mL 3 mL, nebulization, Every 6 hours PRN, wheezing, shortness of breath, Starting on Wed06/09/22 at 2152 nicotine polacrilex (NICORETTE) gum 2 mg 2 mg, buccal, Every 8 hours PRN, smoking cessation, Starting on Wed06/22/22 at 0822 polyethylene glycol (MIRALAX) packet 17 g 17 g, oral, 2 times daily PRN, constipation, Starting on Wed06/10/22 at 0013, Dissolve in 240 mLs (8 ounces) of water or sports drink prior to giving. Linked Groups Order Group 1: haloperidol lactate (HALDOL) injection 5 mgJump to med 5 mg, intramuscular, Every 6 hours PRN, agitation, Starting on Wed06/10/22 at 1226
Must be on telemetry if given IV. May be ordered via either intramuscular or intravenous route. If ordered IV, maximum of 5 mg/minute.
Or haloperidoL (HALDOL) tablet 5 mgJump to med 5 mg, oral, Every 8 hours PRN, agitation, Starting on Wed06/10/22 at 1226 Care Teams (unrecognized sec tion and content) Team Status: Active Member Role Status Dates Dr. Mame Bright MD Primary Care Provider Active Team Status: Inactive Member Role Status Dates Dr. Mame Bright MD Primary Care Provider Active Start: December 04, 2024 End: December 06, 2024 Dr. Franco Benites DO Emergency Provider Activ e Start: December 04, 2024 End: December 06, 2024 Dr. Michelle Angeles MD Admit Provider Active St art: December 04, 2024 End: December 06, 2024 Dr. Michelle Angeles MD Attending Provider Active Start: December 04, 2024 End: December 06, 2024 Dr. Thomas Martinez MD Other Provider Active Start: December 04, 2024 End: December 06, 2024 Dr. Judah Salazar MD Other Provider Active Start: December 04, 2024 End: December 06, 2024 Dr. David Aguilar MD Other Provider Active Star t: December 04, 2024 End: December 06, 2024 Dr. Ean Quintana DO Other Provider Active Start : December 04, 2024 End: December 06, 2024 Dr. Fredo Griffin MD Other Provider Active Sta rt: December 04, 2024 End: December 06, 2024 Dr. Kris Lauren MD Other Provider Active St art: December 04, 2024 End: December 06, 2024 Dr. Osmany Bronson MD Other Provider Active S tart: December 04, 2024 End: December 06, 2024 Dr. Kasie Bhagat MD Other Provider Active Start: December 04, 2024 End: December 06, 2024 Dr. Taiwo Knapp MD Other Provider Active Start : December 04, 2024 End: December 06, 2024 Dr. Raz Freedman MD Other Provider Active Start: December 04, 2024 End: December 06, 2024 Dr. Waldo Shepard MD Other Provider Active Start : December 04, 2024 End: December 06, 2024 Dr. Makayla French MD Other Provider Active Star t: December 04, 2024 End: December 06, 2024 Dr. Patricia Vargas MD Other Provider Active Sta rt: December 04, 2024 End: December 06, 2024 Dr. Mirna Dahl MD Other Provider Active Sta rt: December 04, 2024 End: December 06, 2024 Dr. Tawanda Silveira MD Other Provider Active Star t: December 04, 2024 End: December 06, 2024 Dr. Ernie Law MD Other Provider Active St art: December 04, 2024 End: December 06, 2024 Dr. Hussain Mora MD Other Provider Active Star t: December 04, 2024 End: December 06, 2024 Dr. Jose Mejias DO Other Provider Active St art: December 04, 2024 End: December 06, 2024 Dr. Jayleen Manning MD Other Provider Active Start: December 04, 2024 End: December 06, 2024 Dr. Makeda Leary MD Other Provider Active St art: December 04, 2024 End: December 06, 2024 Dr. Tre Ye DO Other Provider Active Start: December 04, 2024 End: December 06, 2024 Dr. Karel Tejeda MD Other Provider Active Star t: December 04, 2024 End: December 06, 2024 Dr. Zion Tobias MD Other Provider Active Sta rt: December 04, 2024 End: December 06, 2024 Dr. Zion Tobias MD Other Provider Active Sta rt: December 04, 2024 Team Status: Active Member Role Status Dates Dr. Mame Bright MD Primary Care Provider Active Start: December 05, 2024 Dr. Farnco Benites DO Emergency Provider Activ e Start: December 05, 2024 Dr. Michelle Angeles MD Admit Provider Active St art: December 05, 2024 Dr. Michelle Angeles MD Other Provider Active St art: December 05, 2024 Dr. Thomas Martinez MD Other Provider Active Start: December 05, 2024 Dr. Judah Salazar MD Other Provider Active Start: December 05, 2024 Dr. David Aguilar MD Other Provider Active Star t: December 05, 2024 Dr. Ean Quintana DO Attending Provider Active S tart: December 05, 2024 Dr. Ean Quintana DO Other Provider Active Start : December 05, 2024 Dr. Fredo Griffin MD Other Provider Active Sta rt: December 05, 2024 Dr. Kris Lauren MD Other Provider Active St art: December 05, 2024 Dr. Osmany Bronson MD Other Provider Active S tart: December 05, 2024 Dr. Kasie Bhagat MD Other Provider Active Start: December 05, 2024 Dr. Taiwo Knapp MD Other Provider Active Start : December 05, 2024 Dr. Raz Freedman MD Other Provider Active Start: December 05, 2024 Dr. Waldo Shepard MD Other Provider Active Start : December 05, 2024 Dr. Makayla French MD Other Provider Active Star t: December 05, 2024 Dr. Patricia Vargas MD Other Provider Active Sta rt: December 05, 2024 Dr. Mirna Dahl MD Other Provider Active Sta rt: December 05, 2024 Dr. Tawanda Silveira MD Other Provider Active Star t: December 05, 2024 Dr. Ernie Law MD Other Provider Active St art: December 05, 2024 Dr. Hussain Mora MD Other Provider Active Star t: December 05, 2024 Dr. Jose Mejias , Other Provider Active St art: December 05, 2024 Dr. Jayleen Manning MD Other Provider Active Start: December 05, 2024 Dr. Makeda Leary MD Other Provider Active St art: December 05, 2024 Dr. Tre Ye , Other Provider Active Start: December 05, 2024 Dr. Karel Tejeda MD Other Provider Active Star t: December 05, 2024 Dr. Zion Tobias MD Other Provider Active Sta rt: December 05, 2024 Team Status: Active Member Role Status Dates Dr. Mame Bright MD Primary Care Provider Active Start: December 05, 2024 Dr. Franco Benites DO Emergency Provider Activ e Start: December 05, 2024 Dr. Michelle Angeles MD Admit Provider Active St art: December 05, 2024 Dr. Michelle Angeles MD Attending Provider Active Start: December 05, 2024 Dr. Michelle Angeles MD Other Provider Active St art: December 05, 2024 Dr. Thomas Martinez MD Other Provider Active Start: December 05, 2024 Dr. Judah Salazar MD Other Provider Active Start: December 05, 2024 Dr. David Aguilar MD Other Provider Active Star t: December 05, 2024 Dr. Ean Quintana DO Other Provider Active Start : December 05, 2024 Dr. Fredo Griffin MD Other Provider Active Sta rt: December 05, 2024 Dr. Kris Lauren MD Other Provider Active St art: December 05, 2024 Dr. Osmany Bronson MD Other Provider Active S tart: December 05, 2024 Dr. Kasie Bhagat MD Other Provider Active Start: December 05, 2024 Dr. Taiwo Knapp MD Other Provider Active Start : December 05, 2024 Dr. Raz Freedman MD Other Provider Active Start: December 05, 2024 Dr. Waldo Shepard MD Other Provider Active Start : December 05, 2024 Dr. Makayla French MD Other Provider Active Star t: December 05, 2024 Dr. Patricia Vargas MD Other Provider Active Sta rt: December 05, 2024 Dr. Mirna Dahl MD Other Provider Active Sta rt: December 05, 2024 Dr. Tawanda Silveira MD Other Provider Active Star t: December 05, 2024 Dr. Ernie Law MD Other Provider Active St art: December 05, 2024 Dr. Hussain Mora MD Other Provider Active Star t: December 05, 2024 Dr. Jose Mejias , Other Provider Active St art: December 05, 2024 Dr. Jayleen Manning MD Other Provider Active Start: December 05, 2024 Dr. Makeda Leary MD Other Provider Active St art: December 05, 2024 Dr. Tre Ye , Other Provider Active Start: December 05, 2024 Dr. Karel Tejeda MD Other Provider Active Star t: December 05, 2024 Dr. Zion Tobias MD Other Provider Active Sta rt: December 05, 2024 Team Status: Active Member Role Status Dates Dr. Mame Bright MD Primary Care Provider Active Start: December 06, 2024 Dr. Franco Benites DO Emergency Provider Activ e Start: December 06, 2024 Dr. Michelle Angeles MD Admit Provider Active St art: December 06, 2024 Dr. Michelle Angeles MD Attending Provider Active Start: December 06, 2024 Dr. Michelle Angeles MD Other Provider Active St art: December 06, 2024 Dr. Thomas Martinez MD Other Provider Active Start: December 06, 2024 Dr. Judah Salazar MD Other Provider Active Start: December 06, 2024 Dr. David Aguilar MD Other Provider Active Star t: December 06, 2024 Dr. Ean Quintana DO Other Provider Active Start : December 06, 2024 Dr. Fredo Griffin MD Other Provider Active Sta rt: December 06, 2024 Dr. Kris Lauren MD Other Provider Active St art: December 06, 2024 Dr. Osmany Bronson MD Other Provider Active S tart: December 06, 2024 Dr. Kasie Bhagat MD Other Provider Active Start: December 06, 2024 Dr. Taiwo Knapp MD Other Provider Active Start : December 06, 2024 Dr. Raz Freedman MD Other Provider Active Start: December 06, 2024 Dr. Waldo Shepard MD Other Provider Active Start : December 06, 2024 Dr. Makayla French MD Other Provider Active Star t: December 06, 2024 Dr. Patricia Vargas MD Other Provider Active Sta rt: December 06, 2024 Dr. Mirna Dahl MD Other Provider Active Sta rt: December 06, 2024 Dr. Tawanda Silveira MD Other Provider Active Star t: December 06, 2024 Dr. Ernie Law MD Other Provider Active St art: December 06, 2024 Dr. Hussain Mora MD Other Provider Active Star t: December 06, 2024 Dr. Jose Mejias DO Other Provider Active St art: December 06, 2024 Dr. Jayleen Manning MD Other Provider Active Start: December 06, 2024 Dr. Makeda Leary MD Other Provider Active St art: December 06, 2024 Dr. Tre Ye DO Other Provider Active Start: December 06, 2024 Dr. Karel Tejeda MD Other Provider Active Star t: December 06, 2024 Dr. Zion Tobias MD Other Provider Active Sta rt: December 06, 2024 Obgyn Nurse Relationship Specialty Start Date End Date Stan Samuel MD [address] [place] [address] PCP - General 10/15/14 Obgyn Nurse Relationship Specialty Start Date End Date Luz Corrales MD [address] [facility] [address] [place], [place] [id number] PCP - General Internal Medicine 06/08/22 Team Status: Active Member Role Status Dates Dr. Mame Bright MD Primary Care Provider Active Start: December 04, 2024 Dr. Franco Benites DO Emergency Provider Activ e Start: December 04, 2024 Dr. Michelle Angeles MD Admit Provider Active St art: December 04, 2024 Dr. Michelle Angeles MD Attending Provider Active Start: December 04, 2024 Ordered Prescriptions (unrec ognized section and content) Prescription Sig Dispensed Refills Start Date End Da te naltrexone (DEPADE) 50 mg tablet Take 1 tablet (50 mg total) by mouth 1 (one) time each day. 30 each 07/08/2022 07/08/2023 nicotine polacrilex (NICORETTE) [address] 1 each (2 mg total) into mouth between cheek and gum every 8 (eight) hours if needed for smoking cessation. 100 each 0 07/07/2022 08/06/2022 nicotine (NICODERM CQ) 14 mg/[address] 1 patch on the skin 1 (one) time each day. 30 each 0 07/07/2022 08/06/2022 haloperidoL (HALDOL) 5 mg tablet Take 1 tablet (5 mg total) by mouth every 8 (eight) hours if needed for agitation. 0 07/07/2022 benztropine (COGENTIN) 1 mg tablet Take 1 tablet (1 mg total) by mouth 2 (two) times a day if needed (extrapyramidal symptoms). 0 07/07/2022 08/06/2022 traZODone (DESYREL) 50 mg tablet Take 0.5 tablets (25 mg total) by mouth 3 (three) times a day. 45 each 0 07/07/2022 08/06/2022 haloperidoL (HALDOL) 5 mg tablet Take 1 tablet (5 mg total) by mouth 3 (three) times a day. 90 each 07/07/2022 08/06/2022 gabapentin (NEURONTIN) 300 mg capsule Take 1 capsule (300 mg total) by mouth 3 (three) times a day. 90 each 07/07/2022 07/07/2023 cholecalciferol (VITAMIN D-3) 1,250 mcg (50,000 unit) capsule Take 1 capsule (50,000 Units total) by mouth 1 (one) time per week. 4 each 07/08/2022 07/08/2023 lithium 300 mg capsule Take 1 capsule (300 mg total) by mouth 2 (two) times a day with meals. 60 each 2 06/11/2022 09/09/2022 haloperidoL (HALDOL) 0.5 mg tablet Take 5 tablets (2.5 mg total) by mouth 2 (two) times a day. 300 each 0 06/11/2022 06/11/2022 Goals (unrecognized section and content) Goals may be documented in a n alternate section FOR RECORDS PERTAINING TO PATIENTS WHO ARE OR HAVE BEEN ENROLLED IN A CHEMICAL DEPENDENCY/SUBSTANCEABUSE PROGRAM, SOME INFORMATION MAY BE OMITTED. This clinical summary was aggregated from multiple sources. Caution should be exercised in using it in the provision of clinical care. This summary normalizes information from multiple sources, and as a consequence, information in this document may materially change the coding, format and clinical context of patient data. In addition, data may be omitted in some cases. CLINICAL DECISIONS SHOULD BE BASED ON THE PRIMARY CLINICAL RECORDS. [facility]. provides no warranty or guarantee of the accuracy or completeness of information in this document.
--- NOTE | 2025-01-31 21:32 | RAD_ITS ---
PROCEDURE: CHEST PA AND LATERAL 01/31/2025 REASON FOR EXAM: COUGH, RALES AND WHEEZING BILATERALLY AND HYPOXIA TECHNIQUE: CHEST PA AND LATERAL COMPARISON: 12/05/2024 FINDINGS: Mild pulmonary vascular congestion and interstitial edema. Right lower lobe opacity not excluded. No pleural effusion or pneumothorax. Stable mild cardiomegaly. No acute fractures. Low riding right humerus. RAD/Chest PA and Lateral IMPRESSION: Mild pulmonary edema. Right lower lobe opacity not excluded. Stable mild card iomegaly. Low riding right humerus; dislocation is not entirely excluded.. Reading Location: [id number]
[2025-01-31] MEDS: 0.9% Normal Saline (1000mL) 1,000 ML 150 ML IV (21:47)
[2025-01-31 21:52] LABS: Hematocrit 42.7 % (40-54); Hemoglobin 13.0 g/dL (13.0-16.5); Immature Granulocytes Count 0.030 X10^3/uL (0.0-0.0); Mean Corp Hgb Conc 30.4 g/dL (32-36); Mean Corpuscular Volume 86.3 fL (80-94); Mean Platelet Vol. 10.1 fl (6.2-12.0); NRBC Flagged by Analyzer 0 % (0-5); Platelet Count 239 K/mm3 (150-450); RBC Distribution Width CV 15.4 % (11.6-14.6); RBC Distribution Width SD 48.1 fl (35.1-43.9); Red Blood Count 4.95 M/mm3 (4.6-6.2); White Blood Count 10.2 K/mm3 (4.4-11.0)
[2025-01-31 21:53] LABS: AST(SGOT) 10 U/L (<=37); Alanine Aminotransfer ALT/SGPT < 5 U/L (<=46); Albumin, Serum 4.3 g/dL (3.5-5.0); Alkaline Phosphatase 143 U/L (40-129); Anion Gap 12 (5-15); BUN 17 mg/dL (4-19); BUN/Creat Ratio 14.4 RATIO (10-20); Calcium,Total 9.4 mg/dL (7.6-11.0); Carbon Dioxide 28.3 mmol/L (21.0-32.0); Chloride 105 mmol/L (98-108); Estimated Creatinine Clearance 83.51 ml/min (50-250); Globulin 2.8 g/dL (2.2-4.2); Glucose 114 mg/dL (70-99); Potassium 4.3 mmol/L (3.3-5.1)
[2025-01-31 22:03] LABS: Prothrombin Time (Protime)PT. 13.9 SECONDS (11.7-14.9)
[2025-01-31 22:04] LABS: Partial Thromboplast Time 26.2 Seconds (24.1-36.2)
[2025-01-31 22:22] LABS: Allen Test Positive; Base Excess -5 mmol/L (-2 to +2); FI02 6.0; PO2 65 mmHG (75-100); SITE L Radial; SO2 91 % (95-99)
--- NOTE | 2025-01-31 22:31 | PCM.HP.STD ---
HPI - General General Date of Admission: 01/31/25 Date of Service: 01/31/25 Chief Complaint: Cough, dyspnea, wheezing. HPI Narrative The patient is a 55 y/o M w/ PMHx: Hx CVA w/ R sided hemiplegia/Chronic dysarthria, COPD, Tobacco use, PVD, BPH with obstructive pathology, Anxiety and Depression/Bipolar disorder/chart reported history of previous violent behavior/schizophrenia, Diabetes mellitus type II, most recent discharge noted 12/06/2024 following evaluation for acute on chronic hypoxic and hypercapnic respiratory failure secondary to COPD exacerbation and suspected aspiration pneumonia with associated lactic acidosis who presents to the [facility] ED on 01/31/2025 from his skilled facility with skilled facility report of difficulty breathing all day with increased cough, decreased appetite as well as lethargy with hypoxia noted to be 86% on room air in addition to wheezing at his facility prompting ED evaluation. Patient also reports mild congestion. He also notes that he occasionally has been coughing with oral food intake. Workup in the ED included T99, heart rate 84, BP 110/67, respiratory rate 28, initially 88% on room air with improvement to 94% on 3 L nasal cannula-> most recent repeat vitals upon evaluation T98.8, heart rate 96, BP 117/71, respiratory rate 30, 92% on 6 L nasal cannula--> eventually transition to Airvo, ABG with pH 7.32, bicarb 21, O2 saturation 91%, pCO2 40.8, PO265 on nasal cannula, CBC with WC 10.2, hemoglobin 13, MCV 86.3, platelet 239 without marked shift, lactic acid 2.2, CMP with BUN/creatinine 17/1.17, GFR 74, glucose 114, alk phos 143 otherwise not marked appearing, chest x-ray with mild pulm edema with inability to exclude right lower lobe opacity and stable mild cardiomegaly with a low riding right humerus with dislocation unable to be entirely excluded, blood culture x 2 pending per ED. In the ED patient administered Solu-Medrol 125 mg IV x 1, Levaquin 750 mg IV x 1 and maintenance IV fluids. FORMERLY [facility] Medical History Hemiplegia and hemiparesis following cerebral infarction affecting right dominant side Dysarthria following cerebral infarction COPD (chronic obstructive pulmonary disease) Nicotine dependence, cigarettes, uncomplicated Violent behavior Unspecified lack of coordination Acute bronchitis, unspecified Pneumonitis due to inhalation of food and vomit Peripheral vascular disease, unspecified Need for assistance with personal care Gastro-esophageal reflux disease without esophagitis Benign prostatic hyperplasia with lower urinary tract symptoms CVA (cerebral vascular accident) Depression Diabetes Bipolar 1 disorder HLD (hyperlipidemia) HTN (hypertension) Schizophrenia COVID-19 virus infection Home Medications ?Medication ?Instructions ?Recorded ?Last Taken ?Type acetaminophen 325 mg tablet 650 mg PO Q4H PRN fever or pain 07/31/24 Unknown History (Aminofen) aripiprazole 15 mg tablet (Abilify) 15 mg PO DAILY SCHIZOPHRENIA 07/31/24 12/03/24 History aspirin 81 mg tablet,delayed 81 mg PO DAILY HTN 07/31/24 12/03/24 History release (Adult Low Dose Aspirin) buspirone 10 mg tablet 10 mg PO TID BIPOLAR 07/31/24 12/03/24 History calcium carbonate (Leslye-Mastic 600 mg PO Q6H PRN heartburn 07/31/24 11/26/24 History Heartburn Chew) cholecalciferol (vitamin D3) 1,250 1,250 mcg PO QWEEK SUPPLEMENT 07/31/24 11/27/24 History mcg (50,000 unit) capsule gabapentin 100 mg capsule 200 mg PO TID NEUROPATHIC PAIN 07/31/24 12/03/24 History lorazepam 1 mg tablet (Ativan) 1 mg PO TID agitation 07/31/24 12/03/24 History metformin 1,000 mg tablet 1,000 mg PO BID DM 07/31/24 12/03/24 History sennosides 8.6 mg-docusate sodium 1 tab-cap PO DAILY CONSTIPATION 07/31/24 12/03/24 History 50 mg tablet (Colace 2-In-1) trazodone 50 mg tablet 50 mg PO QHS BIPOLAR 07/31/24 12/03/24 History vortioxetine 20 mg tablet 20 mg PO DAILY DEPRESSION 07/31/24 12/03/24 History (Trintellix) atorvastatin 10 mg tablet (Lipitor) 10 mg PO QHS 01/31/25 Unknown History lorazepam 1 mg tablet (Ativan) 1 mg PO Q8H 01/31/25 Unknown History Allergy/AdvReac Type Severity Reaction Status Date / Time ibuprofen Allergy Rash Verified 01/31/25 20:24 Penicillins Allergy RASH Verified 01/31/25 20:24 adopted (Patient does not know his maternal/paternal biological family history.) Surgical History (Updated 01/31/25 @ 23:[address] Rosalva Fowler MD) No history of previous surgery Social History (Updated 01/31/25 @ 23:[address] Rosalva Fowler MD) housing: senior living Smoking Status: Current every day smoker tobacco type: cigarettes Smoking packs per day: 0.25 Smoking cigarettes per day: 5.0 alcohol intake: never substance use type: does not use ROS ROS Narrative Admission Review of Systems: CONSTITUTIONAL: No weight loss, fever, chills, + weakness or fatigue. HEENT: + Mild congestion. Eyes: No visual loss, blurred vision, double vision or yellow sclerae. Ears, Nose, Throat: No hearing loss, sneezing, runny nose or sore throat. SKIN: No rash or itching, lesions, wounds. CARDIOVASCULAR: No chest pain, chest pressure or chest discomfort, palpitations, edema, orthopnea, syncopal events. RESPIRATORY: + Dyspnea, cough, wheezing. No hemoptysis. GASTROINTESTINAL: + Decreased appetite. No nausea, vomiting or diarrhea, abdominal pain, melena, BRBPR. GENITOURINARY: No dysuria, frequency, urgency or retention. NEUROLOGICAL: + History of CVA with chronic right-sided hemiplegia, dysarthria. No headache, dizziness, syncope, change in bowel or bladder control, seizure. MUSCULOSKELETAL: + muscle, back pain, joint pain or stiffness. HEMATOLOGIC: No anemia, bleeding or bruising. LYMPHATICS: No enlarged nodes. No history of splenectomy. PSYCHIATRIC: N+ history of anxiety and depression/bipolar disorder/violent behavior/schizophrenia. ENDOCRINOLOGIC: No reports of sweating, cold or heat intolerance. No polyuria or polydipsia. ALLERGIES: No history of asthma, hives, eczema or rhinitis. Vital Signs Vital Signs Vital Signs: 01/31/25 20:19 01/31/25 20:28 01/31/25 20:31 Temperature 99 F 99 F Temperature Source Oral Oral Pulse Rate 84 99 Respiratory Rate 28 H 30 H Respiratory Effort Respiratory Depth Respiratory Pattern Blood Pressure 110/67 118/78 Blood Pressure Mean 81 91 Pulse Ox 88 92 94 Oxygen Delivery Method Room Air Nasal Cannula Nasal Cannula Oxygen Flow Rate (L/min) 2 3 01/31/25 20:32 01/31/25 20:43 01/31/25 21:19 Temperature Temperature Source Pulse Rate 101 H 100 Respiratory Rate 21 H 31 H Respiratory Effort Short of Breath Respiratory Depth Shallow Respiratory Pattern Tachypnea Tachypnea Blood Pressure 143/66 H Blood Pressure Mean 91 Pulse Ox 92 Oxygen Delivery Method Nasal Cannula Nasal Cannula Oxygen Flow Rate (L/min) 3 6 01/31/25 21:22 01/31/25 21:27 Temperature 98.8 F Temperature Source Oral Pulse Rate 96 Respiratory Rate 30 H Respiratory Effort Respiratory Depth Respiratory Pattern Blood Pressure 117/71 Blood Pressure Mean 86 Pulse Ox 95 92 Oxygen Delivery Method Nasal Cannula Nasal Cannula Oxygen Flow Rate (L/min) 6 Weight Weight: 229 lb 15.074 oz Body Mass Index (BMI) 34.9 Physical Exam Narrative Physical Examination: General: Awake, alert, oriented to self, place, recent events, notably dysarthric/ chronically garbled speech status post CVA, remains cooperative, seated upright in the ED bed, Airvo in place now. Skin: Normal color, normal turgor, no icterus, no cyanosis except occasional abrasion. HEENT: AT/NC, EOMI, mild bilateral scleral injection, PERRLA, moderately dry MM, poor dentition, no carotid bruits, no obvious JVD elevation however thickened neck makes evaluation difficult. Lungs: Diminished, greater bases, mildly coarse bilaterally, moist upper airway sounds, Airvo in place, occasional end expiratory wheezing, mildly increased respiratory rate but no distress. Heart: Regular rate and rhythm; no gallop, rub audible. Abdomen: Soft, obese, NTTP, normal distant BS, no obvious marked distention or tympany, no obvious HSM however habitus makes evaluation difficult. Extremities: No cyanosis, no clubbing, chronic bilateral lower extremity pedal to distal delatorre edema, Angel wraps in place. Neurological: Patient awake, alert, oriented as noted, cognitive function baseline intact; pupils equally reactive to light and accommodation, cranial nerves grossly normal, chronic right sided hemiplegia status post CVA, strength severely globally decreased. Psychiatric: Affect appears flat, fatigued, no acute evidence of depressive or anxiety feelings but does have underlying psychiatric history. Results Lab / Micro Data 01/31/25 21:12 01/31/25 21:12 Labs: Laboratory Results - last 24 hr 08/06/25 21:12: WBC 10.2, RBC 4.95, Hgb 13.0, Hct 42.7, MCV 86.3, MCH 26.3 L, MCHC 30.4 L, RDW Std Deviation 48.1 H, RDW Coeff of Thomas 15.4 H, Plt Count 239, MPV 10.1, Immature Gran % (Auto) 0.300, Neut % (Auto) 67.9, Lymph % (Auto) 20.8, [place] % (Auto) 8.8, Eos % (Auto) 1.8, Baso % (Auto) 0.4, Absolute Neuts (auto) 6.9, Absolute Lymphs (auto) 2.12, Nucleated RBC % 0, PT 13.9, INR 1.1, APTT 26.2, Sodium 145, Potassium 4.3, Chloride 105, Carbon Dioxide 28.3, Anion Gap 12, BUN 17, Creatinine 1.17, Estim Creat Clear Calc 83.51, Est GFR (MDRD) Non-Af 74, BUN/Creatinine Ratio 14.4, Glucose 114 H, Lactic Acid 2.2 H*, Calcium 9.4, Total Bilirubin 0.27, AST 10, ALT < 5, Alkaline Phosphatase 143 H, Total Protein 7.1, Albumin 4.3, Globulin 2.8, Albumin/Globulin Ratio 1.5 ABG Data ABG results: ABG 01/31/25 22:18 Specimen Type ART Sample Site L Radial pH 7.32 L Bicarbonate Actual 21.0 L Total CO2 22 Base Excess -5 L O2 Saturation 91 L O2 % 6.0 ABG pCO2 40.8 ABG pO2 65 L Joel Test Positive O2 Delivery Device Cannula Vent Mode Not entered Imaging Radiology Impression Chest X-Ray 01/31/25 21:32 IMPRESSION: Mild pulmonary edema. Right lower lobe opacity not excluded. Stable mild cardiomegaly. Low riding right humerus; dislocation is not entirely excluded.. Reading Location: [facility] Assessment & Plan Assessment/Plan (1) Acute exacerbation of chronic obstructive pulmonary disease: PLAN: Plan The patient is a 55 y/o M w/ PMHx: Hx CVA w/ R sided hemiplegia/Chronic dysarthria, COPD, Tobacco use, PVD, BPH with obstructive pathology, Anxiety and Depression/Bipolar disorder/chart reported history of previous violent behavior/schizophrenia, Diabetes mellitus type II, most recent discharge noted 12/06/2024 following evaluation for acute on chronic hypoxic and hypercapnic respiratory failure secondary to COPD exacerbation and suspected aspiration pneumonia with associated lactic acidosis who presents to the [facility] ED on 01/31/2025 from his skilled facility with skilled facility report of difficulty breathing all day with increased cough, decreased appetite as well as lethargy with hypoxia noted to be 86% on room air in addition to wheezing at his facility prompting ED evaluation. #1. Acute Encephalopathy secondary to Acute Hypoxic Respiratory Failure (requiring Airvo initiation, hypoxia on ABG, up to 6L prior to airvo) secondary to Acute on Chronic COPD exacerbation with questionable right lower lobe infiltrate, possible aspiration, possible gram-negative/gram-positive organisms with mild lactic acidosis likely secondary to hypoxemia: Will admit to [facility], maintain on oxygen with wean as tolerated to room air, continue ATC duonebs, PRN albuterol, IV methylprednisolone, maintain on IV Levaquin and Vancomycin given recent hospitalization prolonged as well as possible aspiration component with de-escalation as able, MRSA screen requested, HOB, IS parameters w/ pending sputum cultures, full respiratory viral panel and urine antigens. Procalcitonin requested. Bld cx x 2 obtained in the ED. PT/OT/ST/case management consulted for discharge planning. #2. Atypical right humeral position on chest x-ray film: Noted right low riding humerus with possible dislocation, will request repeat focal right shoulder films to further investigate as patient does have chronic right sided hemiplegia status post CVA. #3. Anxiety and depression/bipolar disorder/chart reported history of violent behavior previously/schizophrenia: Will continue patient home psychiatric regimen including Abilify, buspirone with hold for sedation, vortioxetine, trazodone and low-dose Ativan for agitation which she commonly takes however again hold for sedation. #4. Diabetes mellitus type II with chronic neuropathy: Hold oral home regimen, continue home gabapentin regimen with hold for sedation as needed, maintain on ADA diet as long as clinically remains appropriate for oral intake with ST consultation requested given concerns for previous aspiration history, accu checks w/ ISS. #5. History CVA: Patient with significant right sided deficits/hemiplegia as well as chronic dysarthria, continue aspirin, statin, not on hypertensive regimen, holding oral diabetic regimen with adjustments as noted. PT, OT, ST consulted as well as case management for discharge planning. #6. Tobacco Abuse: Encouraged cessation, inpatient consultation per RT, NR if desired. #7. BPH with obstructive pathology: Per current list does not appear to be on regimen, monitor for retention. #8. Hyperlipidemia: Will continue patient on statin therapy. #9. Obesity: Weight loss and lifestyle changes encouraged. #10. DVT prophylaxis: Lovenox. #11. CODE status: Per facility paperwork will maintain FULL code status. Charges/Coding Visit Charges Inpatient E&M: 19709 Init Hosp L3
[2025-01-31] MEDS: levoFLOXacin IV 750 MG/150 ML BAG 100 MG IV (22:47)
[2025-01-31 23:01] LABS: Mucous, Urine 0 SEEN /hpf (<or=2+); Red Blood Cells-Urine 0 SEEN /hpf (0-5); Squamous Epithelial Cells - UA 0 SEEN /hpf (0-5)
[2025-01-31 23:15] LABS: Color, Urine Yellow (Yellow); Glucose, Dipstick Normal (Normal); Ketone-Dipstick Negative (Negative); Leukocyte Esterase-Dipstick 25 /ul (Negative); Nitrite-Dipstick Negative (Negative); Occult Blood-Urine Negative /ul (Negative); Protein-Dipstick 30 mg/dl (Negative); Specific Gravity, Urine 1.020 (1.002-1.030)
[2025-01-31 23:27] LABS: Urine Bilirubin Dipstick 1 mg/dL (Negative)
--- OUTSIDE RECORDS SUMMARY | 2025-01-31 23:47 | XMS RPT_ITS | CCD ---
Author Organization [facility]Formerly [facility] Care Team Providers Care Calender Operator Helper Name Role Phone Unavailable Unavailable Unavailable BENNY [...] Care Unavailable MARY JAMES Admitting Unavailable PHYSICIANS, [facility] Consulting Unav ailable TATUM MONET Consulting Unavail able DYLAN ROBLES Consulting Unavailable [facility] Consultin g Unavailable NO, PHYSICIAN Primary Care Unavailable DAVID JI Attending Unavailable LUZ CORRALES Primary Care Unavailable ALAINA BAEZ Attending Unavailable LUZ CORRALES Primary Care Unavailable JAYNE RUSSO Admitting Unavailable RUPAL WILSON Attending Unavailable WARD MOOK, YAQUELIN Consulting Unavailable ED ELKINS YAQUELIN Consulting Unavailable ED ELKINS, YAQUELIN Consulting Unavailable Lashonda CANO, Luz Primary Care Provider [phone] Kaila CANO, Dr. Galvin Primary Care Provider RegiMichael NICOLE, Dr. Gamez Emergency Provider Bridgette CANO, Dr. Michelle Rios Admit Provider Bridgette CANO, Dr. Michelle Rios Attending Provider Michelle CANO, Dr. Guzman Other Provider Marie CANO, Dr. So Other Provider Jeff CANO, Dr. Hernandez Other Provider Dr. Ean Quintana DO Other Provider Gaby CANO, Dr. Fredo Villeda Other Provider [phone] Xin CANO, Dr. Ponce Other Provider Audie CANO, Dr. Ceron Other Provider [phone] Leola CANO, Dr. Ferro Other Provider Aria CANO, Dr. Maravilla Other Provider Tano CANO, Dr. Crandall Other Provider Dr. Waldo Shepard MD Other Provider Dr. Makayla French MD Other Provider Dr. Patricia Vargas MD Other Provider Unavailabl lisha Dahl MD, Dr. Bradley Other Provider Jordana CANO, Dr. Neff Other Provider [phone] Ernie Law MD Other Provider Morgan CANO, Dr. Nixon Other Provider [phone] Jose Mejias DO Other Provider Kerri CANO, Dr. Clemens Other Provider Gibran CANO, Dr. Ashford Other Provider [phone] Ephraim NICOLE, Dr. Toledo Other Provider Nikhil CANO, Dr. Vinson Other Provider Jatinder CANO, Dr. Donovan Other Provider [phone] Bridgette CANO, Dr. Michelle Rios Other Provider [phone] Mariano NICOLE, Dr. Mckoy Attending Provider [phone] Thomas Martinez Consulting Unavailable Koram, Michelle Blanca [...] Unavailable Zion Tobias Consulting Unavailable Koram, Michelle Blacna Consulting Unavailable Maricruz Villareal Referring Unavailable Maricruz [...] Drug Allergy 5 Unknown, Other (See Comments) [facility] Penicillins (antibiotic) (1 source) Penicillins Drug Allergy 9 [facility] (12 sources) ibuprofen; Translations: [IBUPROFEN] Propensity to adverse reactions to drug 5 Unknown, Other (See Comments), Other [facility] Work Phone: (9 sources) Penicillins; Translations: [PENICILLINS] Propensity to adverse reactions to drug 9 Other (See Comments), Other [facility] (1 source) Ibuprofen Drug Allergy 5 [facility] Medications Current Medications Medication Drug Class(es) [...] capsule (6 sources) Start: 07-31-2024 Calcium Carbonate ([place] Heartburn Chew) 300 mg (750 mg) tablet,chewable [...] Active docusate sodium 50 mg / sennosides, penitent[facility] 8.6 mg oral tablet (10 sources) Start: [...] pain . 12 tablet 0 07/03/2018 Active [id number] 200 actuat albuterol 0.09 mg/actuat metered dose [...] 06-10-2022 insulin lispro (HumaLOG) injection 1-6 Units [employer] (2 sources) Start: 06-09-2022 End: 06-10-2022 take [...] (1 source) End: 07-08-2022 zinc oxide-white petrolatum ([place] Moist Barrier-Zinc) 10-78 % cream Apply 1 application topically 2 (two) times a day if needed. 0 07/08/2022 Discontinued (Stop Taking at Discharge) polyethylene glycol 3350 16088 mg powder for oral solution (5 sources) [...] (2 sources) Patient care statuses; Translations: [[facility], active care coordination] Onset: 12-04-2013 06-20-2020 Unclassified [...] Profile (BMP )on 12-11-2024 BUN Normal 4-19 [facility] Comment on above: Result Comment: Canc elled via OM: Order cancelled - Patient discharged Performed By: #### L 100.0100, L500.2500 #### [facility] [address] [place], [address] BUN/CRE Normal 10-20 [facility] Comment on above: Result Comment: Canc elled via OM: Order cancelled - Patient discharged Performed By: #### L 100.0100, L500.2500 #### [facility] [address] [place], [address] Calcium Normal 7.6-11.0 [facility] Comment on above: Result Comment: Canc elled via OM: Order cancelled - Patient discharged Performed By: #### L 100.0100, L500.2500 #### [facility] [address] [place], [address] CL Normal 98-108 [facility] Comment on above: Result Comment: Canc elled via OM: Order cancelled - Patient discharged Performed By: #### L 100.0100, L500.2500 #### [facility] [address] [place], [address] CO2 Normal 21.0-32.0 [facility] Comment on above: Result Comment: Canc elled via OM: Order cancelled - Patient discharged Performed By: #### L 100.0100, L500.2500 #### [facility] [address] [place], [address] CREAT,SERUM Normal 0.70-1.20 [facility] Comment on above: Result Comment: Canc elled via OM: Order cancelled - Patient discharged Performed By: #### L 100.0100, L500.2500 #### [facility] [address] [place], [address] eGFR Normal >60 [facility] Comment on above: Result Comment: Canc elled via OM: Order cancelled - Patient discharged Performed By: #### L 100.0100, L500.2500 #### [facility] [address] [place], [address] GAP Normal 5-15 [facility] Comment on above: Result Comment: Canc elled via OM: Order cancelled - Patient discharged Performed By: #### L 100.0100, L500.2500 #### [facility] [address] [place], [address] GLU Normal 70-99 [facility] Comment on above: Result Comment: Canc elled via OM: Order cancelled - Patient discharged Performed By: #### L 100.0100, L500.2500 #### [facility] [address] [place], [address] Potassium Normal 3.3-5.1 [facility] Comment on above: Result Comment: Canc elled via OM: Order cancelled - Patient discharged Performed By: #### L 100.0100, L500.2500 #### [facility] [address] [place], [address] Basic Metabolic Profile (BMP) Normal 133-145 [facility] Comment on above: Result Comment: Canc elled via OM: Order cancelled - Patient discharged Performed By: #### L 100.0100, L500.2500 #### [facility] [address] [place], [address] CBC W/Diff, Automatedon 06-1 -2024 Absolute Neut Normal 2.0-7.7 [facility] Comment on above: Result Comment: Canc elled via OM: Order cancelled - Patient discharged Performed By: #### L 100.0100, L500.2500 #### [facility] [address] [place], [address] HCT Normal 40-54 [facility] Comment on above: Result Comment: Canc elled via OM: Order cancelled - Patient discharged Performed By: #### L 100.0100, L500.2500 #### [facility] [address] [place], [address] HGB Normal 13.0-16.5 [facility] Comment on above: Result Comment: Canc elled via OM: Order cancelled - Patient discharged Performed By: #### L 100.0100, L500.2500 #### [facility] [address] [place], [address] MCH Normal 27.0-32.0 [facility] Comment on above: Result Comment: Canc elled via OM: Order cancelled - Patient discharged Performed By: #### L 100.0100, L500.2500 #### [facility] [address] [place], [address] MCHC Normal 32-36 [facility] Comment on above: Result Comment: Canc elled via OM: Order cancelled - Patient discharged Performed By: #### L 100.0100, L500.2500 #### [facility] [address] [place], [address] MCV Normal 80-94 [facility] Comment on above: Result Comment: Canc elled via OM: Order cancelled - Patient discharged Performed By: #### L 100.0100, L500.2500 #### [facility] [address] [place], [address] NEUT% Normal 47-70 [facility] Comment on above: Result Comment: Canc elled via OM: Order cancelled - Patient discharged Performed By: #### L 100.0100, L500.2500 #### [facility] [address] [place], [address] PLT Normal 150-450 [facility] Comment on above: Result Comment: Canc elled via OM: Order cancelled - Patient discharged Performed By: #### L 100.0100, L500.2500 #### [facility] [address] [place], [address] RBC Normal 4.6-6.2 [facility] Comment on above: Result Comment: Canc elled via OM: Order cancelled - Patient discharged Performed By: #### L 100.0100, L500.2500 #### [facility] [address] [place], [address] RDW CV Normal 11.6-14.6 [facility] Comment on above: Result Comment: Canc elled via OM: Order cancelled - Patient discharged Performed By: #### L 100.0100, L500.2500 #### [facility] [address] [place], [address] RDW SD Normal 35.1-43.9 [facility] Comment on above: Result Comment: Canc elled via OM: Order cancelled - Patient discharged Performed By: #### L 100.0100, L500.2500 #### [facility] [address] [place], [address] WBC Normal 4.4-11.0 [facility] Comment on above: Result Comment: Canc elled via OM: Order cancelled - Patient discharged Performed By: #### L 100.0100, L500.2500 #### [facility] [address] [place], [address] Basic Metabolic Profile (BMP )on 12-10-2024 BUN Normal 4-19 [facility] Comment on above: Result Comment: Canc elled via OM: Order cancelled - Patient discharged Performed By: #### L 100.0100, L500.2500 #### [facility] [address] [place], [address] BUN/CRE Normal 10-20 [facility] Comment on above: Result Comment: Canc elled via OM: Order cancelled - Patient discharged Performed By: #### L 100.0100, L500.2500 #### [facility] [address] [place], [address] Calcium Normal 7.6-11.0 [facility] Comment on above: Result Comment: Canc elled via OM: Order cancelled - Patient discharged Performed By: #### L 100.0100, L500.2500 #### [facility] [address] [place], [address] CL Normal 98-108 [facility] Comment on above: Result Comment: Canc elled via OM: Order cancelled - Patient discharged Performed By: #### L 100.0100, L500.2500 #### [facility] [address] [place], [address] CO2 Normal 21.0-32.0 [facility] Comment on above: Result Comment: Canc elled via OM: Order cancelled - Patient discharged Performed By: #### L 100.0100, L500.2500 #### [facility] [address] [place], [address] CREAT,SERUM Normal 0.70-1.20 [facility] Comment on above: Result Comment: Canc elled via OM: Order cancelled - Patient discharged Performed By: #### L 100.0100, L500.2500 #### [facility] [address] [place], [address] eGFR Normal >60 [facility] Comment on above: Result Comment: Canc elled via OM: Order cancelled - Patient discharged Performed By: #### L 100.0100, L500.2500 #### [facility] [address] [place], [address] GAP Normal 5-15 [facility] Comment on above: Result Comment: Canc elled via OM: Order cancelled - Patient discharged Performed By: #### L 100.0100, L500.2500 #### [facility] [address] [place], [address] GLU Normal 70-99 [facility] Comment on above: Result Comment: Canc elled via OM: Order cancelled - Patient discharged Performed By: #### L 100.0100, L500.2500 #### [facility] [address] [place], [address] Potassium Normal 3.3-5.1 [facility] Comment on above: Result Comment: Canc elled via OM: Order cancelled - Patient discharged Performed By: #### L 100.0100, L500.2500 #### [facility] [address] [place], [address] Basic Metabolic Profile (BMP) Normal 133-145 [facility] Comment on above: Result Comment: Canc elled via OM: Order cancelled - Patient discharged Performed By: #### L 100.0100, L500.2500 #### [facility] [address] [place], [address] CBC W/Diff, Automatedon - Absolute Neut Normal 2.0-7.7 [facility] Comment on above: Result Comment: Canc elled via OM: Order cancelled - Patient discharged Performed By: #### L 100.0100, L500.2500 #### [facility] [address] [place], [address] HCT Normal 40-54 [facility] Comment on above: Result Comment: Canc elled via OM: Order cancelled - Patient discharged Performed By: #### L 100.0100, L500.2500 #### [facility] [address] [place], [address] HGB Normal 13.0-16.5 [facility] Comment on above: Result Comment: Canc elled via OM: Order cancelled - Patient discharged Performed By: #### L 100.0100, L500.2500 #### [facility] [address] [place], [address] MCH Normal 27.0-32.0 [facility] Comment on above: Result Comment: Canc elled via OM: Order cancelled - Patient discharged Performed By: #### L 100.0100, L500.2500 #### [facility] [address] [place], [address] MCHC Normal 32-36 [facility] Comment on above: Result Comment: Canc elled via OM: Order cancelled - Patient discharged Performed By: #### L 100.0100, L500.2500 #### [facility] [address] [place], [address] MCV Normal 80-94 [facility] Comment on above: Result Comment: Canc elled via OM: Order cancelled - Patient discharged Performed By: #### L 100.0100, L500.2500 #### [facility] [address] [place], [address] NEUT% Normal 47-70 [facility] Comment on above: Result Comment: Canc elled via OM: Order cancelled - Patient discharged Performed By: #### L 100.0100, L500.2500 #### [facility] [address] [place], [address] PLT Normal 150-450 [facility] Comment on above: Result Comment: Canc elled via OM: Order cancelled - Patient discharged Performed By: #### L 100.0100, L500.2500 #### [facility] [address] [place], [address] RBC Normal 4.6-6.2 [facility] Comment on above: Result Comment: Canc elled via OM: Order cancelled - Patient discharged Performed By: #### L 100.0100, L500.2500 #### [facility] [address] [place], [address] RDW CV Normal 11.6-14.6 [facility] Comment on above: Result Comment: Canc elled via OM: Order cancelled - Patient discharged Performed By: #### L 100.0100, L500.2500 #### [facility] [address] [place], [address] RDW SD Normal 35.1-43.9 [facility] Comment on above: Result Comment: Canc elled via OM: Order cancelled - Patient discharged Performed By: #### L 100.0100, L500.2500 #### [facility] [address] [place], [address] WBC Normal 4.4-11.0 [facility] Comment on above: Result Comment: Canc elled via OM: Order cancelled - Patient discharged Performed By: #### L 100.0100, L500.2500 #### [facility] [address] [place], [address] Basic Metabolic Profile (BMP )on 12-09-2024 BUN Normal 4-19 [facility] Comment on above: Result Comment: Canc elled via OM: Order cancelled - Patient discharged Performed By: #### L 501.4021 #### [facility] [address] [place], [address] BUN/CRE Normal 10-20 [facility] Comment on above: Result Comment: Canc elled via OM: Order cancelled - Patient discharged Performed By: #### L 501.4021 #### [facility] [address] [place], [address] Calcium Normal 7.6-11.0 [facility] Comment on above: Result Comment: Canc elled via OM: Order cancelled - Patient discharged Performed By: #### L 501.4021 #### [facility] [address] [place], [address] CL Normal 98-108 [facility] Comment on above: Result Comment: Canc elled via OM: Order cancelled - Patient discharged Performed By: #### L 501.4021 #### [facility] [address] [place], [address] CO2 Normal 21.0-32.0 [facility] Comment on above: Result Comment: Canc elled via OM: Order cancelled - Patient discharged Performed By: #### L 501.4021 #### [facility] [address] [place], [address] CREAT,SERUM Normal 0.70-1.20 [facility] Comment on above: Result Comment: Canc elled via OM: Order cancelled - Patient discharged Performed By: #### L 501.4021 #### [facility] [address] [place], [address] eGFR Normal >60 [facility] Comment on above: Result Comment: Canc elled via OM: Order cancelled - Patient discharged Performed By: #### L 501.4021 #### [facility] [address] [place], [address] GAP Normal 5-15 [facility] Comment on above: Result Comment: Canc elled via OM: Order cancelled - Patient discharged Performed By: #### L 501.4021 #### [facility] [address] [place], [address] GLU Normal 70-99 [facility] Comment on above: Result Comment: Canc elled via OM: Order cancelled - Patient discharged Performed By: #### L 501.4021 #### [facility] [address] [place], [address] Potassium Normal 3.3-5.1 [facility] Comment on above: Result Comment: Canc elled via OM: Order cancelled - Patient discharged Performed By: #### L 501.4021 #### [facility] [address] [place], [address] Basic Metabolic Profile (BMP) Normal 133-145 [facility] Comment on above: Result Comment: Canc elled via OM: Order cancelled - Patient discharged Performed By: #### L 501.4021 #### [facility] [address] [place], [address] CBC W/Diff, Automatedon - Absolute Neut Normal 2.0-7.7 [facility] Comment on above: Result Comment: Canc elled via OM: Order cancelled - Patient discharged Performed By: #### L 501.4021 #### [facility] [address] [place], [address] HCT Normal 40-54 [facility] Comment on above: Result Comment: Canc elled via OM: Order cancelled - Patient discharged Performed By: #### L 501.4021 #### [facility] [address] [place], [address] HGB Normal 13.0-16.5 [facility] Comment on above: Result Comment: Canc elled via OM: Order cancelled - Patient discharged Performed By: #### L 501.4021 #### [facility] [address] [place], [address] MCH Normal 27.0-32.0 [facility] Comment on above: Result Comment: Canc elled via OM: Order cancelled - Patient discharged Performed By: #### L 501.4021 #### [facility] [address] [place], [address] MCHC Normal 32-36 [facility] Comment on above: Result Comment: Canc elled via OM: Order cancelled - Patient discharged Performed By: #### L 501.4021 #### [facility] [address] [place], [address] MCV Normal 80-94 [facility] Comment on above: Result Comment: Canc elled via OM: Order cancelled - Patient discharged Performed By: #### L 501.4021 #### [facility] [address] [place], [address] NEUT% Normal 47-70 [facility] Comment on above: Result Comment: Canc elled via OM: Order cancelled - Patient discharged Performed By: #### L 501.4021 #### [facility] [address] [place], [address] PLT Normal 150-450 [facility] Comment on above: Result Comment: Canc elled via OM: Order cancelled - Patient discharged Performed By: #### L 501.4021 #### [facility] [address] [place], [address] RBC Normal 4.6-6.2 [facility] Comment on above: Result Comment: Canc elled via OM: Order cancelled - Patient discharged Performed By: #### L 501.4021 #### [facility] [address] [place], [address] RDW CV Normal 11.6-14.6 [facility] Comment on above: Result Comment: Canc elled via OM: Order cancelled - Patient discharged Performed By: #### L 501.4021 #### [facility] [address] [place], [address] RDW SD Normal 35.1-43.9 [facility] Comment on above: Result Comment: Canc elled via OM: Order cancelled - Patient discharged Performed By: #### L 501.4021 #### [facility] [address] [place], [address] WBC Normal 4.4-11.0 [facility] Comment on above: Result Comment: Canc elled via OM: Order cancelled - Patient discharged Performed By: #### L 501.4021 #### [facility] [address] [place], [address] Culture, Blood (WB)on 2024 CUB Blood cultures x2, from two different sites No growth in 5 days. Normal [facility] Comment on above: Performed By: #### L 500.4050, L503.6005, L100.0100, M200.1000, L300.3900, L300.4310 ####[facility] [address] [place], [address] Basic Metabolic Profile (BMP )on 12-08-2024 BUN Normal 4-19 [facility] Comment on above: Result Comment: Canc elled via OM: Order cancelled - Patient discharged Performed By: #### L 500.2500, L100.0100 ####[facility] [address] [place], [address] BUN/CRE Normal 10-20 [facility] Comment on above: Result Comment: Canc elled via OM: Order cancelled - Patient discharged Performed By: #### L 500.2500, L100.0100 ####[facility] [address] [place], [address] Calcium Normal 7.6-11.0 [facility] Comment on above: Result Comment: Canc elled via OM: Order cancelled - Patient discharged Performed By: #### L 500.2500, L100.0100 ####[facility] [address] [place], [address] CL Normal 98-108 [facility] Comment on above: Result Comment: Canc elled via OM: Order cancelled - Patient discharged Performed By: #### L 500.2500, L100.0100 ####[facility] [address] [place], [address] CO2 Normal 21.0-32.0 [facility] Comment on above: Result Comment: Canc elled via OM: Order cancelled - Patient discharged Performed By: #### L 500.2500, L100.0100 ####[facility] [address] [place], [address] CREAT,SERUM Normal 0.70-1.20 [facility] Comment on above: Result Comment: Canc elled via OM: Order cancelled - Patient discharged Performed By: #### L 500.2500, L100.0100 ####[facility] [address] [place], [address] eGFR Normal >60 [facility] Comment on above: Result Comment: Canc elled via OM: Order cancelled - Patient discharged Performed By: #### L 500.2500, L100.0100 ####[facility] [address] [place], [address] GAP Normal 5-15 [facility] Comment on above: Result Comment: Canc elled via OM: Order cancelled - Patient discharged Performed By: #### L 500.2500, L100.0100 ####[facility] [address] [place], [address] GLU Normal 70-99 [facility] Comment on above: Result Comment: Canc elled via OM: Order cancelled - Patient discharged Performed By: #### L 500.2500, L100.0100 ####[facility] [address] [place], [address] Potassium Normal 3.3-5.1 [facility] Comment on above: Result Comment: Canc elled via OM: Order cancelled - Patient discharged Performed By: #### L 500.2500, L100.0100 ####[facility] [address] [place], [address] Basic Metabolic Profile (BMP) Normal 133-145 [facility] Comment on above: Result Comment: Canc elled via OM: Order cancelled - Patient discharged Performed By: #### L 500.2500, L100.0100 ####[facility] [address] [place], [address] CBC W/Diff, Automatedon 06-1 -2024 Absolute Neut Normal 2.0-7.7 [facility] Comment on above: Result Comment: Canc elled via OM: Order cancelled - Patient discharged Performed By: #### L 500.2500, L100.0100 ####[facility] [address] [place], [address] HCT Normal 40-54 [facility] Comment on above: Result Comment: Canc elled via OM: Order cancelled - Patient discharged Performed By: #### L 500.2500, L100.0100 ####[facility] [address] [place], [address] HGB Normal 13.0-16.5 [facility] Comment on above: Result Comment: Canc elled via OM: Order cancelled - Patient discharged Performed By: #### L 500.2500, L100.0100 ####[facility] [address] [place], [address] MCH Normal 27.0-32.0 [facility] Comment on above: Result Comment: Canc elled via OM: Order cancelled - Patient discharged Performed By: #### L 500.2500, L100.0100 ####[facility] [address] [place], [address] MCHC Normal 32-36 [facility] Comment on above: Result Comment: Canc elled via OM: Order cancelled - Patient discharged Performed By: #### L 500.2500, L100.0100 ####[facility] [address] [place], [address] MCV Normal 80-94 [facility] Comment on above: Result Comment: Canc elled via OM: Order cancelled - Patient discharged Performed By: #### L 500.2500, L100.0100 ####[facility] [address] [place], [address] NEUT% Normal 47-70 [facility] Comment on above: Result Comment: Canc elled via OM: Order cancelled - Patient discharged Performed By: #### L 500.2500, L100.0100 ####[facility] [address] [place], [address] PLT Normal 150-450 [facility] Comment on above: Result Comment: Canc elled via OM: Order cancelled - Patient discharged Performed By: #### L 500.2500, L100.0100 ####[facility] [address] [place], [address] RBC Normal 4.6-6.2 [facility] Comment on above: Result Comment: Canc elled via OM: Order cancelled - Patient discharged Performed By: #### L 500.2500, L100.0100 ####[facility] [address] [place], [address] RDW CV Normal 11.6-14.6 [facility] Comment on above: Result Comment: Canc elled via OM: Order cancelled - Patient discharged Performed By: #### L 500.2500, L100.0100 ####[facility] [address] [place], [address] RDW SD Normal 35.1-43.9 [facility] Comment on above: Result Comment: Canc elled via OM: Order cancelled - Patient discharged Performed By: #### L 500.2500, L100.0100 ####[facility] [address] [place], [address] WBC Normal 4.4-11.0 [facility] Comment on above: Result Comment: Canc elled via OM: Order cancelled - Patient discharged Performed By: #### L 500.2500, L100.0100 ####[facility] [address] [place], [address] ENTERIC PATHOGEN PANEL STOOL on 12-08-2024 EP PANEL CALLED ICU AND ARE HAVING STOOL RECOLLECTED, NOT ENOUGH FOR EP PANEL. [facility] 12/05/24 AT 1414 Normal Reference Range = [...] VIBRIO Not Detected Yersinia Not Detected Normal [facility] Comment on above: Performed By: #### M 100.637 ####[facility] [address] [place], [address] Basic Metabolic Profile (BMP )on 12-07-2024 BUN Normal 4-19 [facility] Comment on above: Result Comment: Canc elled via OM: Order cancelled - Patient discharged Performed By: #### L 100.0100, L500.2500 #### [facility] [address] [place], [address] BUN/CRE Normal 10-20 [facility] Comment on above: Result Comment: Canc elled via OM: Order cancelled - Patient discharged Performed By: #### L 100.0100, L500.2500 #### [facility] [address] [place], [address] Calcium Normal 7.6-11.0 [facility] Comment on above: Result Comment: Canc elled via OM: Order cancelled - Patient discharged Performed By: #### L 100.0100, L500.2500 #### [facility] [address] [place], [address] CL Normal 98-108 [facility] Comment on above: Result Comment: Canc elled via OM: Order cancelled - Patient discharged Performed By: #### L 100.0100, L500.2500 #### [facility] [address] [place], [address] CO2 Normal 21.0-32.0 [facility] Comment on above: Result Comment: Canc elled via OM: Order cancelled - Patient discharged Performed By: #### L 100.0100, L500.2500 #### [facility] [address] [place], [address] CREAT,SERUM Normal 0.70-1.20 [facility] Comment on above: Result Comment: Canc elled via OM: Order cancelled - Patient discharged Performed By: #### L 100.0100, L500.2500 #### [facility] [address] [place], [address] eGFR Normal >60 [facility] Comment on above: Result Comment: Canc elled via OM: Order cancelled - Patient discharged Performed By: #### L 100.0100, L500.2500 #### [facility] [address] [place], [address] GAP Normal 5-15 [facility] Comment on above: Result Comment: Canc elled via OM: Order cancelled - Patient discharged Performed By: #### L 100.0100, L500.2500 #### [facility] [address] [place], [address] GLU Normal 70-99 [facility] Comment on above: Result Comment: Canc elled via OM: Order cancelled - Patient discharged Performed By: #### L 100.0100, L500.2500 #### [facility] [address] [place], [address] Potassium Normal 3.3-5.1 [facility] Comment on above: Result Comment: Canc elled via OM: Order cancelled - Patient discharged Performed By: #### L 100.0100, L500.2500 #### [facility] [address] [place], [address] Basic Metabolic Profile (BMP) Normal 133-145 [facility] Comment on above: Result Comment: Canc elled via OM: Order cancelled - Patient discharged Performed By: #### L 100.0100, L500.2500 #### [facility] [address] [place], [address] CBC W/Diff, Automatedon 06-1 Absolute Neut Normal 2.0-7.7 [facility] Comment on above: Result Comment: Canc elled via OM: Order cancelled - Patient discharged Performed By: #### L 100.0100, L500.2500 #### [facility] [address] [place], [address] HCT Normal 40-54 [facility] Comment on above: Result Comment: Canc elled via OM: Order cancelled - Patient discharged Performed By: #### L 100.0100, L500.2500 #### [facility] [address] [place], [address] HGB Normal 13.0-16.5 [facility] Comment on above: Result Comment: Canc elled via OM: Order cancelled - Patient discharged Performed By: #### L 100.0100, L500.2500 #### [facility] [address] [place], [address] MCH Normal 27.0-32.0 [facility] Comment on above: Result Comment: Canc elled via OM: Order cancelled - Patient discharged Performed By: #### L 100.0100, L500.2500 #### [facility] [address] [place], [address] MCHC Normal 32-36 [facility] Comment on above: Result Comment: Canc elled via OM: Order cancelled - Patient discharged Performed By: #### L 100.0100, L500.2500 #### [facility] [address] [place], [address] MCV Normal 80-94 [facility] Comment on above: Result Comment: Canc elled via OM: Order cancelled - Patient discharged Performed By: #### L 100.0100, L500.2500 #### [facility] [address] [place], [address] NEUT% Normal 47-70 [facility] Comment on above: Result Comment: Canc elled via OM: Order cancelled - Patient discharged Performed By: #### L 100.0100, L500.2500 #### [facility] [address] [place], [address] PLT Normal 150-450 [facility] Comment on above: Result Comment: Canc elled via OM: Order cancelled - Patient discharged Performed By: #### L 100.0100, L500.2500 #### [facility] [address] [place], [address] RBC Normal 4.6-6.2 [facility] Comment on above: Result Comment: Canc elled via OM: Order cancelled - Patient discharged Performed By: #### L 100.0100, L500.2500 #### [facility] [address] [place], [address] RDW CV Normal 11.6-14.6 [facility] Comment on above: Result Comment: Canc elled via OM: Order cancelled - Patient discharged Performed By: #### L 100.0100, L500.2500 #### [facility] [address] [place], [address] RDW SD Normal 35.1-43.9 [facility] Comment on above: Result Comment: Canc elled via OM: Order cancelled - Patient discharged Performed By: #### L 100.0100, L500.2500 #### [facility] [address] [place], [address] WBC Normal 4.4-11.0 [facility] Comment on above: Result Comment: Canc elled via OM: Order cancelled - Patient discharged Performed By: #### L 100.0100, L500.2500 #### [facility] [address] [place], [address] Absolute lymphocyte countOrd ered By: Michelle Angeles on 12-06-2024 Lymphocytes Auto (Unsp spec) [#/Vol] 2.54 10*3/uL 0.83-4.51 [facility] Absolute neutrophil countOrd ered By: Michelle Angeles on 12-06-2024 Neutrophils (Bld) [#/Vol] 7.2 10*3/uL 2.0-7.7 [facility] Anion gap in Serum or Plasma Ordered By: Michelle Angeles on 12-06-2024 Anion gap [Moles/Vol] 9 mmol/L 5-15 [facility] Automated lymphocyte count a s percentage of total leukocytesOrdered By: Michelletanisha Angeles on 12-06-2024 Lymphocytes/100 WBC Auto (Unsp spec) 23.6 % - [facility] BUN/creatinine ratioOrdered By: Michelle Angeles on 12-06-2024 Urea nitrogen/Creatinine [Mass ratio] 14.5 mg/mg - [facility] Basic Metabolic Profile (BMP )on 12-06-2024 BUN/CRE 14.5 RATIO Normal 04-16 [facility] Comment on above: Performed By: #### L 500.2500, L100.0100 ####[facility] [address] [place], [address] Calcium [Mass/Vol] 9.0 mg/dL Normal 7.6-11.0 [facility] Comment on above: Performed By: #### L 500.2500, L100.0100 ####[facility] [address] [place], [address] Chloride [Moles/Vol] 106 mmol/L Normal 98-108 [facility] Comment on above: Performed By: #### L 500.2500, L100.0100 ####[facility] [address] [place], [address] CO2 [Moles/Vol] 27.0 mmol/L Normal 21.0-32.0 [facility] Comment on above: Performed By: #### L 500.2500, L100.0100 ####[facility] [address] [place], [address] Creatinine [Mass/Vol] 1.07 mg/dL Normal 0.70-1.20 [facility] Comment on above: Performed By: #### L 500.2500, L100.0100 ####[facility] [address] [place], [address] ECRCL 91.85 ml/min Normal 50-250 [facility] Comment on above: Performed By: #### L 500.2500, L100.0100 ####[facility] [address] [place], [address] GAP 9 Normal 5-15 [facility] Comment on above: Performed By: #### L 500.2500, L100.0100 ####[facility] [address] [place], [address] GFR/1.73 sq M.predicted among non-blacks MDRD (S/P/Bld) [Vol rate/Area] 82 mL/min/{1.73_m2} Normal >60 [facility] Comment on above: Result Comment: mL/m in/1.73m2 CKD-EPI Creatinine Equation (2020) Performed By: #### L 500.2500, L100.0100 ####[facility] [address] [place], [address] Glucose [Mass/Vol] 90 mg/dL Normal 70-99 [facility] Comment on above: Performed By: #### L 500.2500, L100.0100 ####[facility] [address] [place], [address] Potassium [Moles/Vol] 4.3 mmol/L Normal 3.3-5.1 [facility] Comment on above: Performed By: #### L 500.2500, L100.0100 ####[facility] [address] [place], [address] Sodium [Moles/Vol] 142 mmol/L Normal 133-145 [facility] Comment on above: Performed By: #### L 500.2500, L100.0100 ####[facility] [address] [place], [address] Urea nitrogen [Mass/Vol] 16 mg/dL Normal 4-19 [facility] Comment on above: Performed By: #### L 500.2500, L100.0100 ####[facility] [address] [place], [address] Basophil percentageOrdered B y: Michelle Angeles on 12-06-2024 Basophils/100 WBC (Bld) 0.3 % 0-1 [facility] Bedside Glucoseon 12-06-2024 FINGERSTICK GLU 90 mg/dL Normal 74-106 [facility] Comment on above: Result Comment: JEFFREY BOWIE OF PATIENT CARE PER NURSING PROTOCOL Performed By: #### L 501.4021 #### [facility] [address] [place], [address] FINGERSTICK GLU 84 mg/dL Normal 74-106 [facility] Comment on above: Result Comment: JEFFREY BOWIE OF PATIENT CARE PER NURSING PROTOCOL Performed By: #### L 100.0100, L500.2500 #### [facility] [address] [place], [address] CBC W/Diff, Automatedon 11-26 Absolute Lymph 2.54 X10 3/uL Normal 0.83-4.51 [facility] Comment on above: Performed By: #### L 500.2500, L100.0100 ####[facility] [address] [place], [address] Absolute Neut 7.2 X10 3/uL Normal 2.0-7.7 [facility] Comment on above: Performed By: #### L 500.2500, L100.0100 ####[facility] [address] [place], [address] Basophils/100 WBC (Bld) 0.3 % Normal 0-1 [facility] Comment on above: Performed By: #### L 500.2500, L100.0100 ####[facility] [address] [place], [address] Eosinophils/100 WBC (Bld) 1.2 % Normal 0-5 [facility] Comment on above: Performed By: #### L 500.2500, L100.0100 ####[facility] [address] [place], [address] Erythrocyte distribution width (RBC) [Ratio] 14.5 % Normal 11.6-14.6 [facility] Comment on above: Performed By: #### L 500.2500, L100.0100 ####[facility] [address] [place], [address] Hematocrit (Bld) [Volume fraction] 37.8 % Low 40-54 [facility] Comment on above: Performed By: #### L 500.2500, L100.0100 ####[facility] [address] [place], [address] Hemoglobin (Bld) [Mass/Vol] 11.7 g/dL Low 13.0-16.5 [facility] Comment on above: Performed By: #### L 500.2500, L100.0100 ####[facility] [address] [place], [address] IG% 0.300 Normal 0.0-0.9 [facility] Comment on above: Result Comment: IG% - Immature Granulocytes (promyelocytes, myelocytes and metamyelocytes) > 1% indicates that a LEFT SHIFT is Present. Performed By: #### L 500.2500, L100.0100 ####[facility] [address] [place], [address] Lymphocytes/100 WBC (Bld) 23.6 % Normal 19-41 [facility] Comment on above: Performed By: #### L 500.2500, L100.0100 ####[facility] [address] [place], [address] MCH (RBC) [Entitic mass] 26.5 pg Low 27.0-32.0 [facility] Comment on above: Performed By: #### L 500.2500, L100.0100 ####[facility] [address] [place], [address] MCHC (RBC) [Mass/Vol] 31.0 g/dL Low 32-36 [facility] Comment on above: Performed By: #### L 500.2500, L100.0100 ####[facility] [address] [place], [address] MCV (RBC) [Entitic vol] 85.7 fL Normal 80-94 [facility] Comment on above: Performed By: #### L 500.2500, L100.0100 ####[facility] [address] [place], [address] Monocytes/100 WBC (Bld) 8.0 % Normal 0-10 [facility] Comment on above: Performed By: #### L 500.2500, L100.0100 ####[facility] [address] [place], [address] Neutrophils/100 WBC (Bld) 66.6 % Normal 47-70 [facility] Comment on above: Performed By: #### L 500.2500, L100.0100 ####[facility] [address] [place], [address] Nucleated RBC (Bld) [#/Vol] 0 10*3/uL Normal 0-5 [facility] Comment on above: Performed By: #### L 500.2500, L100.0100 ####[facility] [address] [place], [address] Platelet mean volume (Bld) [Entitic vol] 10.0 fL Normal 6.2-12.0 [facility] Comment on above: Performed By: #### L 500.2500, L100.0100 ####[facility] [address] [place], [address] Platelets (Bld) [#/Vol] 222 10*3/uL Normal 150-450 [facility] Comment on above: Performed By: #### L 500.2500, L100.0100 ####[facility] [address] [place], [address] RBC (Bld) [#/Vol] 4.41 10*6/uL Low 4.6-6.2 [facility] Comment on above: Performed By: #### L 500.2500, L100.0100 ####[facility] [address] [place], [address] RDW SD 45.2 fl High 35.1-43.9 [facility] Comment on above: Performed By: #### L 500.2500, L100.0100 ####[facility] [address] [place], [address] WBC (Bld) [#/Vol] 10.8 10*3/uL Normal 4.4-11.0 [facility] Comment on above: Performed By: #### L 500.2500, L100.0100 ####[facility] [address] [place], [address] Carbon dioxide, total [Moles /volume] in Central venous bloodOrdered By: Michelle Angeles on 12-06-2024 CO2 [Moles/Vol] 27.0 mmol/L 21.0-32.0 [facility] Chloride assayOrdered By: Griselda Angeles on 12-06-2024 Chloride [Moles/Vol] 106 mmol/L 98-108 [facility] Eosinophil percentageOrdered By: Michelle Angeles on 12-06-2024 Eosinophils/100 WBC (Bld) 1.2 % 0-5 [facility] Erythrocyte distribution wid th ratioOrdered By: Michelle Angeles on 12-06-2024 Erythrocyte distribution width (RBC) [Ratio] 14.5 % 11.6-14.6 [facility] Erythrocyte distribution wid th standard deviationOrdered By: Michelle Angeles on 12-06-2024 Erythrocyte distribution width (RBC) [Ratio] 45.2 fl High 35.1-43.9 [facility] Glomerular filtration rate ( GFR) estimation/1.73 sq m using serum, plasma, or whole bOrdered By: Michelle Angeles on 12-06-2024 GFR/1.73 sq M.predicted among non-blacks MDRD (S/P/Bld) [Vol rate/Area] 82 mL/min/{1.73_m2} >60 [facility] Comment on above: mL/min/1.73m2 CKD-EP I Creatinine Equation (2020) [facility]dered By: Michelle Angeles on 12-06-2024 Glucose [Mass/Vol] 90 mg/dL 74-106 [facility] Comment on above: MANAGEMENT OF PATIEN T CARE PER NURSING PROTOCOL Hematocrit Auto (Bld) [Volum e fraction]Ordered By: Michelle Angeles on 12-06-2024 Hematocrit (Bld) [Volume fraction] 37.8 % Low 40-54 [facility] Hemoglobin measurementOrdere d By: Michelle Angeles on 12-06-2024 Hemoglobin (Bld) [Mass/Vol] 11.7 g/dL Low 13.0-16.5 [facility] Immature granulocytes/100 WB C Auto (Bld)Ordered By: Michelle Angeles on 12-06-2024 Immature granulocytes/100 WBC (Bld) 0.300 % 0.0-0.9 [facility] Comment on above: IG% - Immature Granu locytes (promyelocytes, myelocytes and metamyelocytes) > 1% indicates that a LEFT SHIFT is Present. MCV (mean corpuscular volume ) determinationOrdered By: Michelle Angeles on 12-06-2024 MCV (RBC) [Entitic vol] 85.7 fL 80-94 [facility] Mean corpuscular hemoglobin (MCH) determinationOrdered By: Michelle Angeles 12-06-2024 MCH (RBC) [Entitic mass] 26.5 pg Low 27.0-32.0 [facility] Mean corpuscular hemoglobin concentration (MCHC) determinationOrdered By: Michelle Angeles on 12-06-2024 MCHC (RBC) [Mass/Vol] 31.0 g/dL Low 32-36 [facility] Mean platelet volume determi nationOrdered By: Michelle Angeles on 12-06-2024 Platelet mean volume (Bld) [Entitic vol] 10.0 fL 6.2-12.0 [facility] Monocyte percentageOrdered B y: Michelle Angeles on 12-06-2024 Monocytes/100 WBC (Bld) 8.0 % 0-10 [facility] Neutrophil percentageOrdered By: Michelle Angeles on 12-06-2024 Neutrophils/100 WBC (Bld) 66.6 % 47-70 [facility] Nucleated red blood cell per centageOrdered By: Michelle Angeles on 12-06-2024 Nucleated RBC/100 WBC (Bld) [Ratio] 0 % 0-5 [facility] Platelet countOrdered By: Na na Bridgette on 12-06-2024 Platelets (Bld) [#/Vol] 222 10*3/uL 150-450 [facility] Potassium measurement (mass/ volume)Ordered By: Michelle Angeles on 12-06-2024 Potassium (Unsp spec) [Mass/Vol] 4.3 mmol/L 3.3-5.1 [facility] RBC Auto (Bld) [#/Vol]Ordere d By: Michelle Angeles on 12-06-2024 RBC (Bld) [#/Vol] 4.41 10*6/uL Low 4.6-6.2 [facility] Serum creatinine measurement (mass/volume)Ordered By: Michelle Angeles on 12-06-2024 Creatinine [Mass/Vol] 1.07 mg/dL 0.70-1.20 [facility] Serum glucose measurement (m ass/volume)Ordered By: Michelle Angeles on 12-06-2024 Glucose [Mass/Vol] 90 mg/dL 70-99 [facility] Serum or plasma calcium michael urement (mass/volume)Ordered By: Michelle Angeles on 12-06-2024 Calcium [Mass/Vol] 9.0 mg/dL 7.6-11.0 [facility] Serum or plasma urea nitroge n measurement (mass/volume)Ordered By: Michelle Angeles on 12-06-2024 Urea nitrogen [Mass/Vol] 16 mg/dL 4-19 [facility] Sodium levelOrdered By: Michelle Angeles on 12-06-2024 Sodium [Moles/Vol] 142 mmol/L 133-145 [facility] Urine Cultureon 12-06-2024 [facility] Acinetobacter baumannii Gotebo Count 11,000-25,000 Acinetobacter baumannii: REACTION Ampicillin+Sulbac Islt JUAN PABLO <=2 levoFLOXacin Islt JUAN PABLO 4 I Meropenem Islt JUAN PABLO 0.5 S Pip+Tazo Islt JUAN PABLO <=4 S TMP SMX Islt JUAN PABLO <=20 S Normal [facility] Comment on above: Performed By: #### L 400.0001, M100.2200 #### [facility] Laboratory [address] [place], [address] White blood cell (WBC) count Ordered By: Michelle Angeles on 12-06-2024 WBC (Bld) [#/Vol] 10.8 10*3/uL 4.4-11.0 [facility] Basic Metabolic Profile (BMP )on 12-05-2024 BUN/CRE 18.3 RATIO Normal 10-20 [facility] Comment on above: Performed By: #### L 100.0100, L500.2500 #### [facility] Laboratory [address] [place], [address] Calcium [Mass/Vol] 8.6 mg/dL Normal 7.6-11.0 [facility] Comment on above: Performed By: #### L 100.0100, L500.2500 #### [facility] [address] [place], [address] Chloride [Moles/Vol] 108 mmol/L Normal 98-108 [facility] Comment on above: Performed By: #### L 100.0100, L500.2500 #### [facility] Laboratory [address] [place], [address] CO2 [Moles/Vol] 24.2 mmol/L Normal 21.0-32.0 [facility] Comment on above: Performed By: #### L 100.0100, L500.2500 #### [facility] Laboratory [address] [place], [address] Creatinine [Mass/Vol] 0.94 mg/dL Normal 0.70-1.20 [facility] Comment on above: Performed By: #### L 100.0100, L500.2500 #### [facility] Laboratory [address] [place], [address] ECRCL 104.55 ml/min Normal 50-250 [facility] Comment on above: Performed By: #### L 100.0100, L500.2500 #### [facility] Laboratory [address] [place], [address] GAP 9 Normal 5-15 [facility] Comment on above: Performed By: #### L 100.0100, L500.2500 #### [facility] Laboratory [address] [place], [address] GFR/1.73 sq M.predicted among non-blacks MDRD (S/P/Bld) [Vol rate/Area] 96 mL/min/{1.73_m2} Normal >60 [facility] Comment on above: Result Comment: mL/m in/1.73m2 CKD-EPI Creatinine Equation (2020) Performed By: #### L 100.0100, L500.2500 #### [facility] [address] [place], [address] Glucose [Mass/Vol] 147 mg/dL High 70-99 [facility] Comment on above: Performed By: #### L 100.0100, L500.2500 #### [facility] [address] [place], [address] Potassium [Moles/Vol] 4.9 mmol/L Normal 3.3-5.1 [facility] Comment on above: Result Comment: Hemo lysis present, Results??could be affected. ?? Performed By: #### L 100.0100, L500.2500 #### [facility] [address] [place], [address] Sodium [Moles/Vol] 141 mmol/L Normal 133-145 [facility] Comment on above: Performed By: #### L 100.0100, L500.2500 #### [facility] [address] [place], [address] Urea nitrogen [Mass/Vol] 17 mg/dL Normal 4-19 [facility] Comment on above: Performed By: #### L 100.0100, L500.2500 #### [facility] Laboratory [address] [place], [address] Bedside Glucoseon 12-05-2024 FINGERSTICK GLU 116 mg/dL High 74-106 [facility] Comment on above: Result Comment: JEFFREY BOWIE OF PATIENT CARE PER NURSING PROTOCOL Performed By: #### L 501.080 ####[facility] [address] [place], [address] CBC W/Diff, Automatedon 11-26 0-2024 Absolute Lymph 1.35 X10 3/uL Normal 0.83-4.51 [facility] Comment on above: Performed By: #### L 100.0100, L500.2500 #### [facility] Laboratory [address] [place], [address] Absolute Neut 9.1 X10 3/uL High 2.0-7.7 [facility] Comment on above: Performed By: #### L 100.0100, L500.2500 #### [facility] [address] [place], [address] Basophils/100 WBC (Bld) 0.2 % Normal 0-1 [facility] Comment on above: Performed By: #### L 100.0100, L500.2500 #### [facility] [address] [place], [address] Eosinophils/100 WBC (Bld) 0.1 % Normal 0-5 [facility] Comment on above: Performed By: #### L 100.0100, L500.2500 #### [facility] [address] [place], [address] Erythrocyte distribution width (RBC) [Ratio] 14.7 % High 11.6-14.6 [facility] Comment on above: Performed By: #### L 100.0100, L500.2500 #### [facility] [address] [place], [address] Hematocrit (Bld) [Volume fraction] 37.5 % Low 40-54 [facility] Comment on above: Performed By: #### L 100.0100, L500.2500 #### [facility] [address] [place], [address] Hemoglobin (Bld) [Mass/Vol] 11.5 g/dL Low 13.0-16.5 [facility] Comment on above: Performed By: #### L 100.0100, L500.2500 #### [facility] [address] [place], [address] IG% 0.300 Normal 0.0-0.9 [facility] Comment on above: Result Comment: IG% - Immature Granulocytes (promyelocytes, myelocytes and metamyelocytes) > 1% indicates that a LEFT SHIFT is Present. Performed By: #### L 100.0100, L500.2500 #### [facility] [address] [place], [address] Lymphocytes/100 WBC (Bld) 11.6 % Low 19-41 [facility] Comment on above: Performed By: #### L 100.0100, L500.2500 #### [facility] [address] [place], [address] MCH (RBC) [Entitic mass] 26.4 pg Low 27.0-32.0 [facility] Comment on above: Performed By: #### L 100.0100, L500.2500 #### [facility] Laboratory [address] [place], [address] MCHC (RBC) [Mass/Vol] 30.7 g/dL Low 32-36 [facility] Comment on above: Performed By: #### L 100.0100, L500.2500 #### [facility] [address] [place], [address] MCV (RBC) [Entitic vol] 86.2 fL Normal 80-94 [facility] Comment on above: Performed By: #### L 100.0100, L500.2500 #### [facility] [address] [place], [address] Monocytes/100 WBC (Bld) 9.4 % Normal 0-10 [facility] Comment on above: Performed By: #### L 100.0100, L500.2500 #### [facility] Laboratory [address] [place], [address] Neutrophils/100 WBC (Bld) 78.4 % High 47-70 [facility] Comment on above: Performed By: #### L 100.0100, L500.2500 #### [facility] [address] [place], [address] Nucleated RBC (Bld) [#/Vol] 0 10*3/uL Normal 0-5 [facility] Comment on above: Performed By: #### L 100.0100, L500.2500 #### [facility] [address] [place], [address] Platelet mean volume (Bld) [Entitic vol] 10.4 fL Normal 6.2-12.0 [facility] Comment on above: Performed By: #### L 100.0100, L500.2500 #### [facility] Laboratory [address] [place], [address] Platelets (Bld) [#/Vol] 217 10*3/uL Normal 150-450 [facility] Comment on above: Performed By: #### L 100.0100, L500.2500 #### [facility] Laboratory [address] [place], [address] RBC (Bld) [#/Vol] 4.35 10*6/uL Low 4.6-6.2 [facility] Comment on above: Performed By: #### L 100.0100, L500.2500 #### [facility] Laboratory [address] [place], [address] RDW SD 46.1 fl High 35.1-43.9 [facility] Comment on above: Performed By: #### L 100.0100, L500.2500 #### [facility] Laboratory [address] [place], [address] WBC (Bld) [#/Vol] 11.7 10*3/uL High 4.4-11.0 [facility] Comment on above: Performed By: #### L 100.0100, L500.2500 #### [facility] Laboratory [address] [place], [address] Chest 1 View (Portable)on Chest 1 View (Portable) [facility] Imaging Services [address] [place] [address] Chest 1 View (Portable) MR#: [id number] Acct: [id number] Name: RIGO GARCIA Rep #: [id number] : 1970 M 54 From: Bree clayton MD PCP: Dr. Mame Bright MD Status: ADM IN Study: Chest 1 View (Portable) Date of Exam: 12/05/24 Exam# [id number] Ordering Dr: Ean Quintana DO PROCEDURE: CHEST [...] bilateral basilar atelectatic pulmonary changes. Reading Location: [place] [address] CC: Dr. Ean Quintana DO; Dr. Mame Bright MD Rn Telephone Triage: Signed Normal [facility] Consultation - Intensiviston 12-05-2024 Consultation - Valve Repairer Reclamation [facility] Medical Records Department [address] [place] [address] Consultation - Valve Repairer Reclamation 12/05/24 0652 MR#: [id number] Acct: [id number] Name: RIGO GARCIA Rep #: [id number] : 1970 54 From: Ean Quintana DO [...] as indicated. This note was generated with August dictation software. 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 [facility] Medical History (Updated 12/05/24 @ 09:32 by [...] PO TID BIPOLAR 07/31/24/02/19 History calcium carbonate ([place]lye[place] 600 mg PO Q6H PRN heartburn 11/26/24 History Heartburn Chew) cholecalciferol (vitamin D3) 1,250 1,250 mcg PO QWEEK SUPPLEMENT 11/27/24 History mcg (50,000 unit) capsule gabapentin 100 mg capsule 200 mg PO TID NEUROPATHIC PAIN 09/1912/03/24 History lorazepam 1 mg tablet (Ativan) 1 mg PO Q8H agitation 07/31/2402/19 History metformi (more content not included)... Normal [facility] Electrocardiogram reportOrde red By: German Reyna on 12-05-2024 EKG study [facility] Cardiovascular Services [address] [place] [address] 12 Lead EKG 12/04/24 1034 MR#: [id number] Acct: [id number] Name: RIGO GARCIA Rep #:[id number] : 1970 54 From: German ayers MD [...] ischemia Abnormal ECG Confirmed by German Reyna ([id number]), writer editor NGUYEN HOUSER ([id number]) on 12/05/2024 11:11:41 AM Referred By: JESUS Confirmed By: German Reyna 12/05/24 1111 Date _ German Reyna MD CC: Dr. Franco Benites DO; Dr. Michelle Angeles MD; Dr. Mame Bright MD~ Signed [facility] Other 12 Lead EKGon 12-04-2024 12 Lead EKG [facility] Cardiovascular Services [address] [place] [address] 12 Lead EKG 12/04/24 1034 MR#: [id number] Acct: [id number] Name: RIGO GARCIA Rep #: [id number] : 1970 54 From: German Reyna MD [...] ischemia Abnormal ECG Confirmed by German Reyna ([id number]), writer editor NGUYEN HOUSER ([id number]) on 12/05/2024 11:11:41 AM Referred By: REODICA Confirmed By: German Reyna 12/05/24 1111 Date Germna Reyna MD CC: Dr. Franco Benites DO; Dr. Michelle Angeles MD; Dr. Mame Bright MD Signed Normal [facility] Absolute lymphocyte countOrd ered By: Franco Benites on 12-04-2024 Lymphocytes Auto (Unsp spec) [#/Vol] 0.75 10*3/uL Low 0.83-4.51 [facility] Absolute neutrophil countOrd ered By: Franco Benites on 12-04-2024 Neutrophils (Bld) [#/Vol] 10.2 10*3/uL High 2.0-7.7 [facility] Activated partial thrombopla stin time (aPTT) in platelet poor plasma by coagulation aOrdered By: Franco Benites on 12-04-2024 aPTT Coag (PPP) [Time] 23.7 s Low 24.1-36.2 [facility] Anion gap in Serum or Plasma Ordered By: Franco Benites on 12-04-2024 Anion gap [Moles/Vol] 17 mmol/L High 5-15 [facility] Automated lymphocyte count a s percentage of total leukocytesOrdered By: Franco Benites on 12-04-2024 Lymphocytes/100 WBC Auto (Unsp spec) 6.3 % Low 19-41 [facility] BUN/creatinine ratioOrdered By: Franco Delmis on 12-04-2024 Urea nitrogen/Creatinine [Mass ratio] 14.8 mg/mg 10-20 [facility] Basophil percentageOrdered B y: Franco Benites on 12-04-2024 Basophils/100 WBC (Bld) 0.2 % 0-1 [facility] Bilirubin Test strip Ql (U)O rdered By: Francoermias Benites on 12-04-2024 Bilirubin Ql (U) Negative Negative [facility] Bilirubin, totalOrdered By: Franco Benites on 12-04-2024 Bilirubin [Mass/Vol] 0.37 mg/dL 0.00-1.30 [facility] Blood Gases by CPSon 025 Base excess Calc (Bld) [Moles/Vol] 8 mmol/L High -2 to +2 [facility] Comment on above: Performed By: #### L 100.0100, L500.2500 #### [facility] Laboratory [address] [place], [place], [address] Blood Gas Type ART Normal [facility] Comment on above: Performed By: #### L 100.0100, L500.2500 #### [facility] Laboratory [address] [place], [address] CO2 [Moles/Vol] 35 mmol/L Normal [facility] Comment on above: Performed By: #### L 100.0100, L500.2500 #### [facility] Laboratory [address] [place], [address] FI02 8.0 Normal [facility] Comment on above: Performed By: #### L 100.0100, L500.2500 #### [facility] Laboratory [address] [place], [address] HCO3 (Bld) [Moles/Vol] 32.9 mmol/L High 22-26 [facility] Comment on above: Performed By: #### L 100.0100, L500.2500 #### [facility] Laboratory [address] [place], [address] Mode Not entered [facility] Comment on above: Performed By: #### L 100.0100, L500.2500 #### [facility] Laboratory [address] [place], [address] O2 Delivery Dev Not entered [facility] Comment on above: Performed By: #### L 100.0100, L500.2500 #### [facility] Laboratory [address] [place], [address] pCO2 57.9 mmHg High 35-45 [facility] Comment on above: Performed By: #### L 100.0100, L500.2500 #### [facility] Laboratory [address] [place], [address] pH (Bld) 7.36 [pH] Normal 7.35-7.45 [facility] Comment on above: Performed By: #### L 100.0100, L500.2500 #### [facility] Laboratory [address] [place], [address] PO2 66 mmHG Low 75-100 [facility] Comment on above: Performed By: #### L 100.0100, L500.2500 #### [facility] Laboratory [address] [place], [address] SITE L Brach Normal [facility] Comment on above: Performed By: #### L 100.0100, L500.2500 #### [facility] Laboratory [address] [place], [address] SO2 91 Low 95-99 [facility] Comment on above: Performed By: #### L 100.0100, L500.2500 #### [facility] Laboratory [address] [place], [address] Blood base excess determinat ionOrdered By: Franco Benites on 12-04-2024 Base excess Calc (BldV) [Moles/Vol] 8 mmol/L High -2-2 [facility] Blood bicarbonate measuremen tOrdered By: Franco Benites on 12-04-2024 HCO3 (Bld) [Moles/Vol] 32.9 mmol/L High 22-26 [facility] CBC W/Diff, Automatedon 06-0 Absolute Lymph 0.75 X10 3/uL Low 0.83-4.51 [facility] Comment on above: Performed By: #### L 500.4050, L503.6005, L100.0100, M200.1000, L300.3900, L300.4310 #### [facility] Laboratory [address] [place], [address] Absolute Neut 10.2 X10 3/uL High 2.0-7.7 [facility] Comment on above: Performed By: #### L 500.4050, L503.6005, L100.0100, M200.1000, L300.3900, L300.4310 #### [facility] Laboratory [address] [place], [address] Basophils/100 WBC (Bld) 0.2 % Normal 0-1 [facility] Comment on above: Performed By: #### L 500.4050, L503.6005, L100.0100, M200.1000, L300.3900, L300.4310 #### [facility] Laboratory [address] [place], [address] Eosinophils/100 WBC (Bld) 0.5 % Normal 0-5 [facility] Comment on above: Performed By: #### L 500.4050, L503.6005, L100.0100, M200.1000, L300.3900, L300.4310 #### [facility] Laboratory [address] [place], [address] Erythrocyte distribution width (RBC) [Ratio] 14.6 % Normal 11.6-14.6 [facility] Comment on above: Performed By: #### L 500.4050, L503.6005, L100.0100, M200.1000, L300.3900, L300.4310 #### [facility] Laboratory [address] [place], [address] Hematocrit (Bld) [Volume fraction] 43.2 % Normal 40-54 [facility] Comment on above: Performed By: #### L 500.4050, L503.6005, L100.0100, M200.1000, L300.3900, L300.4310 #### [facility] Laboratory [address] [place], [address] Hemoglobin (Bld) [Mass/Vol] 13.2 g/dL Normal 13.0-16.5 [facility] Comment on above: Performed By: #### L 500.4050, L503.6005, L100.0100, M200.1000, L300.3900, L300.4310 #### [facility] [address] [place], [address] IG% 0.300 Normal 0.0-0.9 [facility] Comment on above: Result Comment: IG% - Immature Granulocytes (promyelocytes, myelocytes and metamyelocytes) > 1% indicates that a LEFT SHIFT is Present. Performed By: #### L 500.4050, L503.6005, L100.0100, M200.1000, L300.3900, L300.4310 #### [facility] Laboratory [address] [place], [address] Lymphocytes/100 WBC (Bld) 6.3 % Low 19-41 [facility] Comment on above: Performed By: #### L 500.4050, L503.6005, L100.0100, M200.1000, L300.3900, L300.4310 #### [facility] Laboratory [address] [place], [address] MCH (RBC) [Entitic mass] 26.1 pg Low 27.0-32.0 [facility] Comment on above: Performed By: #### L 500.4050, L503.6005, L100.0100, M200.1000, L300.3900, L300.4310 #### [facility] Laboratory [address] [place], [address] MCHC (RBC) [Mass/Vol] 30.6 g/dL Low 32-36 [facility] Comment on above: Performed By: #### L 500.4050, L503.6005, L100.0100, M200.1000, L300.3900, L300.4310 #### [facility] [address] [place], [address] MCV (RBC) [Entitic vol] 85.4 fL Normal 80-94 [facility] Comment on above: Performed By: #### L 500.4050, L503.6005, L100.0100, M200.1000, L300.3900, L300.4310 #### [facility] [address] [place], [address] Monocytes/100 WBC (Bld) 6.8 % Normal 0-10 [facility] Comment on above: Performed By: #### L 500.4050, L503.6005, L100.0100, M200.1000, L300.3900, L300.4310 #### [facility] [address] [place], [address] Neutrophils/100 WBC (Bld) 85.9 % High 47-70 [facility] Comment on above: Performed By: #### L 500.4050, L503.6005, L100.0100, M200.1000, L300.3900, L300.4310 #### [facility] Laboratory [address] [place], [address] Nucleated RBC (Bld) [#/Vol] 0 10*3/uL Normal 0-5 [facility] Comment on above: Performed By: #### L 500.4050, L503.6005, L100.0100, M200.1000, L300.3900, L300.4310 #### [facility] Laboratory [address] [place], [address] Platelet mean volume (Bld) [Entitic vol] 9.6 fL Normal 6.2-12.0 [facility] Comment on above: Performed By: #### L 500.4050, L503.6005, L100.0100, M200.1000, L300.3900, L300.4310 #### [facility] Laboratory [address] [place], [address] Platelets (Bld) [#/Vol] 236 10*3/uL Normal 150-450 [facility] Comment on above: Performed By: #### L 500.4050, L503.6005, L100.0100, M200.1000, L300.3900, L300.4310 #### [facility] [address] [place], [address] RBC (Bld) [#/Vol] 5.06 10*6/uL Normal 4.6-6.2 [facility] Comment on above: Performed By: #### L 500.4050, L503.6005, L100.0100, M200.1000, L300.3900, L300.4310 #### [facility] [address] [place], [address] RDW SD 45.2 fl High 35.1-43.9 [facility] Comment on above: Performed By: #### L 500.4050, L503.6005, L100.0100, M200.1000, L300.3900, L300.4310 #### [facility] [address] [place], [address] WBC (Bld) [#/Vol] 11.9 10*3/uL High 4.4-11.0 [facility] Comment on above: Performed By: #### L 500.4050, L503.6005, L100.0100, M200.1000, L300.3900, L300.4310 #### [facility] Laboratory [address] [place], [address] Carbon dioxide, total [Moles /volume] in Central venous bloodOrdered By: Franco Benites on 12-04-2024 CO2 [Moles/Vol] 24.1 mmol/L 21.0-32.0 [facility] Chest 1 Viewon 12-04-2024 Chest 1 View [facility] Imaging Services [address] [place] [address] Chest 1 View MR#: [id number] Acct: [id number] Name: RIGO GARCIA Rep #: [id number] : 1970 M 54 From: Chandu Stratton DO PCP: Dr. Mame Bright MD Status: REG ER Study: Chest 1 View Date of Exam: 12/04/24 Exam# [id number] Ordering Dr: Wesley Benites DO PROCEDURE: CHEST 1 VIEW 12/04/2024 REASON FOR EXAM: SHORTNESS OF BREATH TECHNIQUE: Frontal view of the chest. COMPARISON: Chest radiograph July 31, 2019 FINDINGS: Hardware: EKG lead wires Heart: Normal size Lungs: Clear Bones: No aggressive bone lesions Other: RAD/Chest 1 View IMPRESSION: No acute process. Reading [facility] CC: Dr. Franco Benites DO; Dr. Mame Bright MD Rn Telephone Triage: Signed Normal [facility] Chloride assayOrdered By: Adolph Benites on 12-04-2024 Chloride [Moles/Vol] 100 mmol/L 98-108 [facility] Comprehensive Metabolic Prof ilon 12-04-2024 Albumin [Mass/Vol] 4.3 g/dL Normal 3.5-5.0 [facility] Comment on above: Performed By: #### L 500.4050, L503.6005, L100.0100, M200.1000, L300.3900, L300.4310 ####[facility] [id number] [place], [address] Albumin/Globulin [Mass ratio] 1.4 {ratio} Normal 0.9-2.4 [facility] Comment on above: Performed By: #### L 500.4050, L503.6005, L100.0100, M200.1000, L300.3900, L300.4310 ####[facility] [id number] [place], [address] ALK PHOS 148 U/L High 40-129 [facility] Comment on above: Performed By: #### L 500.4050, L503.6005, L100.0100, M200.1000, L300.3900, L300.4310 ####[facility] [address] [place], [address] ALT [Catalytic activity/Vol] 7 U/L Normal <=46 [facility] Comment on above: Performed By: #### L 500.4050, L503.6005, L100.0100, M200.1000, L300.3900, L300.4310 ####[facility] [id number] [place], [address] AST [Catalytic activity/Vol] 17 U/L Normal <=37 [facility] Comment on above: Performed By: #### L 500.4050, L503.6005, L100.0100, M200.1000, L300.3900, L300.4310 ####[facility] [address] [place], [address] Bilirubin [Mass/Vol] 0.37 mg/dL Normal 0.00-1.30 [facility] Comment on above: Performed By: #### L 500.4050, L503.6005, L100.0100, M200.1000, L300.3900, L300.4310 ####[facility] [address] [place], [address] BUN/CRE 14.8 RATIO Normal 10-20 [facility] Comment on above: Performed By: #### L 500.4050, L503.6005, L100.0100, M200.1000, L300.3900, L300.4310 ####[facility] [address] [place], [address] Calcium [Mass/Vol] 9.6 mg/dL Normal 7.6-11.0 [facility] Comment on above: Performed By: #### L 500.4050, L503.6005, L100.0100, M200.1000, L300.3900, L300.4310 ####[facility] [address] [place], [address] Chloride [Moles/Vol] 100 mmol/L Normal 98-108 [facility] Comment on above: Performed By: #### L 500.4050, L503.6005, L100.0100, M200.1000, L300.3900, L300.4310 ####[facility] [address] [place], [address] CO2 [Moles/Vol] 24.1 mmol/L Normal 21.0-32.0 [facility] Comment on above: Performed By: #### L 500.4050, L503.6005, L100.0100, M200.1000, L300.3900, L300.4310 ####[facility] [address] [place], [address] Creatinine [Mass/Vol] 1.15 mg/dL Normal 0.70-1.20 [facility] Comment on above: Performed By: #### L 500.4050, L503.6005, L100.0100, M200.1000, L300.3900, L300.4310 ####[facility] [address] [place], [address] ECRCL 86.37 ml/min Normal 50-250 [facility] Comment on above: Performed By: #### L 500.4050, L503.6005, L100.0100, M200.1000, L300.3900, L300.4310 ####[facility] [address] [place], [address] GAP 17 High 5-15 [facility] Comment on above: Performed By: #### L 500.4050, L503.6005, L100.0100, M200.1000, L300.3900, L300.4310 ####[facility] [address] [place], [address] GFR/1.73 sq M.predicted among non-blacks MDRD (S/P/Bld) [Vol rate/Area] 76 mL/min/{1.73_m2} Normal >60 [facility] Comment on above: Result Comment: mL/m in/1.73m2 CKD-EPI Creatinine Equation (2020) Performed By: #### L 500.4050, L503.6005, L100.0100, M200.1000, L300.3900, L300.4310 ####[facility] [address] [place], [address] Globulin (S) [Mass/Vol] 3.0 g/dL Normal 2.2-4.2 [facility] Comment on above: Performed By: #### L 500.4050, L503.6005, L100.0100, M200.1000, L300.3900, L300.4310 ####[facility] [address] [place], [address] Glucose [Mass/Vol] 112 mg/dL High 70-99 [facility] Comment on above: Performed By: #### L 500.4050, L503.6005, L100.0100, M200.1000, L300.3900, L300.4310 ####[facility] [address] [place], [address] Potassium [Moles/Vol] 4.3 mmol/L Normal 3.3-5.1 [facility] Comment on above: Performed By: #### L 500.4050, L503.6005, L100.0100, M200.1000, L300.3900, L300.4310 ####[facility] [address] [place], [address] Sodium [Moles/Vol] 141 mmol/L Normal 133-145 [facility] Comment on above: Performed By: #### L 500.4050, L503.6005, L100.0100, M200.1000, L300.3900, L300.4310 ####[facility] [address] [place], [address] T PROT 7.3 g/dL Normal 5.9-8.4 [facility] Comment on above: Performed By: #### L 500.4050, L503.6005, L100.0100, M200.1000, L300.3900, L300.4310 ####[facility] [address] [place], [address] Urea nitrogen [Mass/Vol] 17 mg/dL Normal 4-19 [facility] Comment on above: Performed By: #### L 500.4050, L503.6005, L100.0100, M200.1000, L300.3900, L300.4310 ####[facility] [address] [place], [place], [id number] Emergency Department Summary on 12-04-[address] [facility] Medical Records Department [address] [place] [address] Emergency Department Summary 12/04/24 MR#: [id number] Acct: [id number] Name: RIGO GARCIA Rep #: [id number] : 1970 54 From: Franco Benites DO [...] very poor historian therefore history taken by [facility] where patient resides as well as medical [...] Alert, grossly intact, sensation intact Psych: Cooperative [facility] Medical History CVA (cerebral vascular accident) [...] PO TID BIPOLAR 07/31/2402/19 History calcium carbonate ([place] 600 mg PO Q6H PRN heartburn 11/26/24 [...] Flow R (more content not included)... Normal [facility] Eosinophil percentageOrdered By: Franco Benites on 12-04-2024 Eosinophils/100 WBC (Bld) 0.5 % 0-5 [facility] Erythrocyte distribution wid th ratioOrdered By: Franco Benites on 12-04-2024 Erythrocyte distribution width (RBC) [Ratio] 14.6 % 11.6-14.6 [facility] Erythrocyte distribution wid th standard deviationOrdered By: Franco Lorenzayadira Rodriguez on 12-04-2024 Erythrocyte distribution width (RBC) [Ratio] 45.2 fl High 35.1-43.9 [facility] Glomerular filtration rate ( GFR) estimation/1.73 sq m using serum, plasma, or whole bOrdered By: Franco Klpl[facility] medical centerChacha on 12-04-2024 GFR/1.73 sq M.predicted among non-blacks MDRD (S/P/Bld) [Vol rate/Area] 76 mL/min/{1.73_m2} >60 [facility] Comment on above: mL/min/1.73m2 CKD-EP I Creatinine Equation (2020) H AND P Exam - Hospitaliston 12-04-2024 H&P Exam - Hospitalist [facility] Medical Records Department [address] [facility] [place] [address] H P Exam - Hospitalist 12/04/24 1248 MR#: [id number] Acct: [id number] Name: RIGO GARCIA Rep #: [id number] : 1970 54 From: Michelle Angeles MD PCP: Dr. Mame Bright MD Status:ADM IN Location: ICU ICU03-1 HPI - General General Date of Admission: 12/04/24 Date of Service: 12/04/24 Chief Complaint: nausea, vomiting HPI Narrative RIGO GARCIA, is a 54 M with a PMH as outlined who presents from his SNF on 12/04/2024 with a complaint of nausea and vomiting. HE lives in [facility] where he resides. HE was brought in [...] to COPD exacerbation with probable aspiration pneumonia. [facility] Medical History CVA (cerebral vascular accident) Depression [...] TID BIPOLAR 07/31/24 0602/19 History calcium carbonate ([place] 600 mg PO Q6H PRN heartburn 11/26/24 [...] Respiratory Pattern (more content not included)... Normal [facility] Hematocrit Auto (Bld) [Volum e fraction]Ordered By: Franco Benites on 12-04-2024 Hematocrit (Bld) [Volume fraction] 43.2 % 40-54 [facility] Hemoglobin measurementOrdere d By: Franco Benites on 12-04-2024 Hemoglobin (Bld) [Mass/Vol] 13.2 g/dL 13.0-16.5 [facility] Immature granulocytes/100 WB C Auto (Bld)Ordered By: Franco Benites on 12-04-2024 Immature granulocytes/100 WBC (Bld) 0.300 % 0.0-0.9 [facility] Comment on above: IG% - Immature Granu locytes (promyelocytes, myelocytes and metamyelocytes) > 1% indicates that a LEFT SHIFT is Present. International normalized rat io (INR) calculationOrdered By: Franco Benites on 12-04-2024 INR Coag (Bld) [Relative time] 1.0 {INR} [facility] Ketones Test strip Ql (U)Ord ered By: Francoermias Benites on 12-04-2024 Ketones Ql (U) 5 mg/dl High Negative [facility] L499.0042on 12-04-2024 Trop T High Sen 91 ng/L Invalid Interpretation Code <=22 [facility] Comment on above: Result Comment: Crit ical Result(s) Called at 1337: by: BRAYDEN SPRAGUE TO [facility]. ??Results read back by same. Performed By: #### L 100.0100, L500.2500 #### [facility] Laboratory [address] [facility] [place], [place], [address] L501.4021on 12-04-2024 Trop T High Sen 35 ng/L High <=22 [facility] Comment on above: Performed By: #### L 501.4021 #### [facility] Laboratory [address] [facility] [place], [address] Laboratory - Chemistry and C hemistry - challengeOrdered By: Franco Hoda on 12-04-2024 AST [Catalytic activity/Vol] 17 U/L <38 [facility] Lactic Acidon 12-04-2024 Lactate [Moles/Vol] mmol/L Normal 0.0-2.0 [facility] Comment on above: Performed By: #### L 100.0100, L500.2500 #### [facility] Laboratory [address] [place], [place], [address] Lactate [Moles/Vol] 5.1 mmol/L Invalid Interpretation Code 0.0-2.0 [facility] Comment on above: Order Comment: Y Result Comment: Crit ical Result(s) Called at 1150: by:?? BRAYDEN SPRAGUE TO ACOLE. Results read back by same. Performed By: #### L 500.4050, L503.6005, L100.0100, M200.1000, L300.3900, L300.4310 ####[facility] [address] [place], [place], [id number] Lactic acid measurementOrder ed By: Franco Benites on 12-04-2024 Lactate [Moles/Vol] mmol/L 0.0-2.0 [facility] Lactate [Moles/Vol] 5.1 mmol/L High 0.0-2.0 [facility] Comment on above: Critical Result(s) C alled at 1150: by: BRAYDEN SPRAGUE TO ACOLE. Results read back by same. MCV (mean corpuscular volume ) determinationOrdered By: Frnaco Benites on 12-04-2024 MCV (RBC) [Entitic vol] 85.4 fL 80-94 [facility] Mean corpuscular hemoglobin (MCH) determinationOrdered By: Franco Benites on 12-04-2024 MCH (RBC) [Entitic mass] 26.1 pg Low 27.0-32.0 [facility] Mean corpuscular hemoglobin concentration (MCHC) determinationOrdered By: Franco Benites on 12-04-2024 MCHC (RBC) [Mass/Vol] 30.6 g/dL Low 32-36 [facility] Mean platelet volume determi nationOrdered By: Franco Benites on 12-04-2024 Platelet mean volume (Bld) [Entitic vol] 9.6 fL 6.2-12.0 [facility] Measurement, pHOrdered By: Tanisha Benites on 12-04-2024 pH (Unsp spec) 7.36 [pH] 7.35-7.45 [facility] Microscopic analysis of urin e for red blood cells (RBC)Ordered By: Franco Benites on 12-04-2024 Microscopic analysis of urine for red blood cells (RBC) 0-5 SEEN /hpf 0-5 [facility] Monocyte percentageOrdered B y: Franco Benites on 12-04-2024 Monocytes/100 WBC (Bld) 6.8 % 0-10 [facility] Mucus LM Ql (Urine sed)Order ed By: Franco Benites on 12-04-2024 Mucus Ql (Urine sed) 0 SEEN /hpf [facility] Neutrophil percentageOrdered By: Franco Benites on 12-04-2024 Neutrophils/100 WBC (Bld) 85.9 % High 47-70 [facility] Nitrite Test strip Ql (U)Ord ered By: Franco Benites on 12-04-2024 Nitrite Ql (U) Negative Negative [facility] No Panel InformationOrdered By: Franco Benites on 12-04-2024 Blood Gas Sample Site L Brach [facility] Blood Gas Specimen Type ART [facility] Blood Gas Vent Mode Not entered [facility] Oxygen Delivery Device Not entered [facility] Nucleated red blood cell per centageOrdered By: Franco Benites on 12-04-2024 Nucleated RBC/100 WBC (Bld) [Ratio] 0 % 0-5 [facility] Partial Thromboplast Timeon 12-04-2024 aPTT Coag (Bld) [Time] 23.7 s Low 24.1-36.2 [facility] Comment on above: Performed By: #### L 500.4050, L503.6005, L100.0100, M200.1000, L300.3900, L300.4310 ####[facility] [address] [place], [address] Platelet countOrdered By: Adolph Benites on 06-09-2025 Platelets (Bld) [#/Vol] 236 10*3/uL 150-450 [facility] Potassium measurement (mass/ volume)Ordered By: Franco Benites on 12-04-2024 Potassium (Unsp spec) [Mass/Vol] 4.3 mmol/L 3.3-5.1 [facility] Protein Test strip Ql (U)Ord ered By: Franco Benites on 12-04-2024 Protein Ql (U) 30 mg/dl High Negative [facility] Prothrombin Time w/INRon INR Coag (PPP) [Relative time] 1.0 {INR} Normal [facility] Comment on above: Performed By: #### L 500.4050, L503.6005, L100.0100, M200.1000, L300.3900, L300.4310 #### [facility] Laboratory [address] [place], [address] PT Coag (PPP) [Time] 13.4 s Normal 11.7-14.9 [facility] Comment on above: Performed By: #### L 500.4050, L503.6005, L100.0100, M200.1000, L300.3900, L300.4310 #### [facility] Laboratory [address] [place], [address] Prothrombin timeOrdered By: Franco Benites on 12-04-2024 PT Coag (PPP) [Time] 13.4 s 11.7-14.9 [facility] RBC Auto (Bld) [#/Vol]Ordere d By: Franco Benites on 12-04-2024 RBC (Bld) [#/Vol] 5.06 10*6/uL 4.6-6.2 [facility] RESPIRATORY PANEL MOLECULARo n 12-04-2024 RP PANEL [...] Not Detected RSV B Not Detected Normal [facility] Comment on above: Performed By: #### M 100.638 ####[facility] [address] [place], [place], [id number] Respiratory pathogens detect ion panel by molecular detection methodOrdered By: Franco Benites on 12-04-2024 Respiratory pathogens DNA and RNA panel DALIA+probe (Resp) [facility] Serum creatinine measurement (mass/volume)Ordered By: Franco Benites on 12-04-2024 Creatinine [Mass/Vol] 1.15 mg/dL 0.70-1.20 [facility] Serum globulin measurementOr dered By: Franco Benites on 12-04-2024 Globulin (S) [Mass/Vol] 3.0 g/dL 2.2-4.2 [facility] Serum glucose measurement (m ass/volume)Ordered By: Franco Benites on 12-04-2024 Glucose [Mass/Vol] 112 mg/dL High 70-99 [facility] Serum or plasma alanine ramsey otransferase (ALT) measurementOrdered By: Franco Benites on 12-04-2024 ALT [Catalytic activity/Vol] 7 U/L <47 [facility] Serum or plasma albumin michael urement (mass/volume)Ordered By: Franco Rodriguez on 12-04-2024 Albumin [Mass/Vol] 4.3 g/dL 3.5-5.0 [facility] Serum or plasma albumin/glob ulin mass ratioOrdered By: Franco Benites on 12-04-2024 Albumin/Globulin [Mass ratio] 1.4 {ratio} 0.9-2.4 [facility] Serum or plasma alkaline katey sphatase measurementOrdered By: Franco Benites on 12-04-2024 ALP [Catalytic activity/Vol] 148 U/L High 40-129 [facility] Serum or plasma calcium michael urement (mass/volume)Ordered By: Franco Rodriguez on 12-04-2024 Calcium [Mass/Vol] 9.6 mg/dL 7.6-11.0 [facility] Serum or plasma urea nitroge n measurement (mass/volume)Ordered By: Franco Benites on 12-04-2024 Urea nitrogen [Mass/Vol] 17 mg/dL 4-19 [facility] Sodium levelOrdered By: Wesley Benites on 12-04-2024 Sodium [Moles/Vol] 141 mmol/L 133-145 [facility] Squamous epithelial cells de tection in urine sediment by light microscopyOrdered By: Franco Benites on 12-04-2024 Epithelial cells.squamous LM Ql (Urine sed) 0 SEEN /hpf 0-5 [facility] Total carbon dioxide measure mentOrdered By: Franco Benites on 12-04-2024 CO2 [Moles/Vol] 35 mmol/L [facility] Total proteinOrdered By: Ulysses Benites on 12-04-2024 Protein [Mass/Vol] 7.3 g/dL 5.9-8.4 [facility] Troponin T.cardiac [Mass/vol ume] in Serum or Plasma by High sensitivity methodOrdered By: Franco Benites on 12-04-2024 Troponin T.cardiac High sensitivity method [Mass/Vol] 91 ng/L High <22 [facility] Comment on above: Critical Result(s) C alled at 1337: by: BRAYDEN SPRAGUE TO [facility]. Results read back by same. Troponin T.cardiac High sensitivity method [Mass/Vol] 35 ng/L High <22 [facility] Urinalysis, Completeon 12-04 RBC 0-5 SEEN Normal 0-5 [facility] Comment on above: Order Comment: COLLE CTOR TO SPECIFY Performed By: #### L 400.0001, M100.2200 #### [facility] Laboratory [address] [place], [address] WBC 0-5 SEEN Normal 0-5 [facility] Comment on above: Order Comment: CANDE CTOR TO SPECIFY Performed By: #### L 400.0001, M100.2200 #### [facility] Laboratory [address] [place], [address] BACTERIA 0 SEEN Normal None Seen [facility] Comment on above: Order Comment: CANDE CTOR TO SPECIFY Performed By: #### L 400.0001, M100.2200 #### [facility] Laboratory [address] [place], [address] EPI,SQUAMOUS 0 SEEN Normal 0-5 [facility] Comment on above: Order Comment: CANDE CTOR TO SPECIFY Performed By: #### L 400.0001, M100.2200 #### [facility] Laboratory [address] [place], [address] Mucus Ql (Urine sed) 0 SEEN Normal [facility] Comment on above: Order Comment: CANDE CTOR TO SPECIFY Performed By: #### L 400.0001, M100.2200 #### [facility] Laboratory [address] [place], [address] Urine clarityOrdered By: Ulysses Benites on 12-04-2024 Clarity (U) Clear Clear [facility] Urine color determinationOrd ered By: Franco Benites on 12-04-2024 Color (U) Yellow Yellow [facility] Urine cultureOrdered By: Ulysses Benites on 12-04-2024 Bacteria identified Cx Nom (U) Acinetobacter baumannii Abnormal [facility] Urine glucose detectionOrder ed By: Franco Benites on 12-04-2024 Glucose Ql (U) Normal mg/dl Normal [facility] Urine leukocyte esterase det ection by dipstickOrdered By: Franco Benites on 12-04-2024 Leukocyte esterase Test strip Ql (U) 25 /ul High Negative [facility] Urine pHOrdered By: Franco Drummond on 12-04-2024 pH (U) 5.0 [pH] 5.0 - 8.0 [facility] Urine sediment bacteria coun t by microscopy (number/high power field)Ordered By: Franco Benites on 12-04-2024 Bacteria LM.HPF (Urine sed) [#/Area] 0 /[HPF] None Seen [facility] Urine specific gravity measu rementOrdered By: [facility] Specific gravity (U) [Rel density] 1.020 1.002-1.030 [facility] Urine urobilinogen measureme ntOrdered By: [facility] on 12-04-2024 Urobilinogen Ql (U) Normal mg/dl Normal [facility] White blood cell (WBC) count Ordered [facility]: [facility] 12-04-2024 WBC (Bld) [#/Vol] 11.9 10*3/uL High 4.4-11.0 [facility] White blood cell countOrdere d By: Franco Benites on 12-04-2024 White blood cell count 0-5 SEEN /hpf 0-5 [facility] Culture, Blood (WB)on 2024 CUB Blood cultures x2, from two different sites No growth in 5 days. Normal [facility] Comment on above: Performed By: #### L 501.4021 #### [facility] Laboratory [address] [place], [address] CUB Blood cultures x2, from two different sites No growth in 5 days. Normal [facility] Comment on above: Performed By: #### L 100.0100, L500.2500 #### [facility] Laboratory [address] [place], [address] Basic Metabolic Profile (BMP )on 08-01-2024 BUN/CRE 12.0 RATIO Normal 10-20 [facility] Comment on above: Performed By: #### L 100.0100, L500.2500 #### [facility] Laboratory [address] [place], [address] CA,Total 9.8 mg/dL Normal 8.5-10.1 [facility] Comment on above: Performed By: #### L 100.0100, L500.2500 #### [facility] Laboratory [address] [place], [address] Chloride [Moles/Vol] 102 mmol/L Normal 98-107 [facility] Comment on above: Performed By: #### L 100.0100, L500.2500 #### [facility] Laboratory [address] [place], [address] CO2 [Moles/Vol] 29.0 mmol/L Normal 21.0-32.0 [facility] Comment on above: Performed By: #### L 100.0100, L500.2500 #### [facility] Laboratory [address] [place], [address] Creatinine [Mass/Vol] 0.92 mg/dL Normal 0.70-1.30 [facility] Comment on above: Result Comment: The validity of the calculated GFR GFRAA in patients over 70 years has not been determined. Clinical correlation is essential. Performed By: #### L 100.0100, L500.2500 #### [facility] Laboratory [address] [place], [address] ECRCL 105.89 ml/min Normal [facility] Comment on above: Performed By: #### L 100.0100, L500.2500 #### [facility] Laboratory [address] [place], [address] EST GFR - AA 111 mL/min Normal >60 [facility] Comment on above: Result Comment: Afri can Icelandic GFR Calc Performed By: #### L 100.0100, L500.2500 #### [facility] Laboratory [address] [place], [address] GAP 5 Normal 5-15 [facility] Comment on above: Performed By: #### L 100.0100, L500.2500 #### [facility] Laboratory [address] [place], [address] GFR/1.73 sq M.predicted among non-blacks MDRD (S/P/Bld) [Vol rate/Area] 91 mL/min/{1.73_m2} Normal >60 [facility] Comment on above: Result Comment: Non- GFR Calc Performed By: #### L 100.0100, L500.2500 #### [facility] Laboratory [address] [place], [address] Glucose [Mass/Vol] 126 mg/dL High 74-106 [facility] Comment on above: Result Comment: Fast ing Glucose result greater than or equal to 126 mg/dL suggests DIABETES MELLITUS per A.D.A. criteria. Performed By: #### L 100.0100, L500.2500 #### [facility] Laboratory [address] [place], [address] Potassium [Moles/Vol] 4.3 mmol/L Normal 3.5-5.1 [facility] Comment on above: Performed By: #### L 100.0100, L500.2500 #### [facility] Laboratory [address] [place], [address] Sodium [Moles/Vol] 136 mmol/L Normal 136-145 [facility] Comment on above: Performed By: #### L 100.0100, L500.2500 #### [facility] Laboratory [address] [place], [address] Urea nitrogen [Mass/Vol] 11 mg/dL Normal 7-18 [facility] Comment on above: Performed By: #### L 100.0100, L500.2500 #### [facility] Laboratory [address] [place], [address] Bedside Glucoseon 08-01-2024 FINGERSTICK GLU 173 mg/dL High 74-106 [facility] Comment on above: Result Comment: JEFFREY BOWIE OF PATIENT CARE PER NURSING PROTOCOL Performed By: #### L 100.0100, L500.2500 #### [facility] Laboratory [address] [place], [address] FINGERSTICK GLU 156 mg/dL High 74-106 [facility] Comment on above: Result Comment: JEFFREY GEMENT OF PATIENT CARE PER NURSING PROTOCOL Performed By: #### L 100.0100, L500.2500 #### [facility] Laboratory [address] [place], [address] FINGERSTICK GLU 125 mg/dL High 74-106 [facility] Comment on above: Result Comment: JEFFREY GEMENT OF PATIENT CARE PER NURSING PROTOCOL Performed By: #### L 100.0100, L500.2500 #### [facility] Laboratory [address] [place], [address] CBC W/Diff, Automatedon 02-0 4-2024 Absolute Lymph 0.61 X10 3/uL Low 0.83-4.51 [facility] Comment on above: Performed By: #### L 100.0100, L500.2500 #### [facility] Laboratory [address] [place], [address] Absolute Neut 3.9 X10 3/uL Normal 2.0-7.7 [facility] Comment on above: Performed By: #### L 100.0100, L500.2500 #### [facility] [address] [place], [address] Basophils/100 WBC (Bld) 0.2 % Normal 0-1 [facility] Comment on above: Performed By: #### L 100.0100, L500.2500 #### [facility] [address] [place], [address] Eosinophils/100 WBC (Bld) 0.0 % Normal 0-5 [facility] Comment on above: Performed By: #### L 100.0100, L500.2500 #### [facility] [address] [place], [address] Erythrocyte distribution width (RBC) [Ratio] 14.8 % High 11.6-14.6 [facility] Comment on above: Performed By: #### L 100.0100, L500.2500 #### [facility] [address] [place], [address] Hematocrit (Bld) [Volume fraction] 40.5 % Normal 40-54 [facility] Comment on above: Performed By: #### L 100.0100, L500.2500 #### [facility] [address] [place], [address] Hemoglobin (Bld) [Mass/Vol] 12.5 g/dL Low 13.0-16.5 [facility] Comment on above: Performed By: #### L 100.0100, L500.2500 #### [facility] [address] [place], [address] IG% 0.200 Normal 0.0-0.9 [facility] Comment on above: Result Comment: IG% - Immature Granulocytes (promyelocytes, myelocytes and metamyelocytes) > 1% indicates that a LEFT SHIFT is Present. Performed By: #### L 100.0100, L500.2500 #### [facility] [address] [place], [address] Lymphocytes/100 WBC (Bld) 12.1 % Low 19-41 [facility] Comment on above: Performed By: #### L 100.0100, L500.2500 #### [facility] [address] [place], [address] MCH (RBC) [Entitic mass] 26.5 pg Low 27.0-32.0 [facility] Comment on above: Performed By: #### L 100.0100, L500.2500 #### [facility] [address] [place], [address] MCHC (RBC) [Mass/Vol] 30.9 g/dL Low 32-36 [facility] Comment on above: Performed By: #### L 100.0100, L500.2500 #### [facility] [address] [place], [address] MCV (RBC) [Entitic vol] 86.0 fL Normal 80-94 [facility] Comment on above: Performed By: #### L 100.0100, L500.2500 #### [facility] [address] [place], [address] Monocytes/100 WBC (Bld) 9.7 % Normal 0-10 [facility] Comment on above: Performed By: #### L 100.0100, L500.2500 #### [facility] [address] [place], [address] Neutrophils/100 WBC (Bld) 77.8 % High 47-70 [facility] Comment on above: Performed By: #### L 100.0100, L500.2500 #### [facility] [address] [place], [address] Nucleated RBC (Bld) [#/Vol] 0 10*3/uL Normal 0-5 [facility] Comment on above: Performed By: #### L 100.0100, L500.2500 #### [facility] [address] [place], [address] Platelet mean volume (Bld) [Entitic vol] 9.3 fL Normal 6.2-12.0 [facility] Comment on above: Performed By: #### L 100.0100, L500.2500 #### [facility] [address] [place], [address] Platelets (Bld) [#/Vol] 206 10*3/uL Normal 150-450 [facility] Comment on above: Performed By: #### L 100.0100, L500.2500 #### [facility] [address] [place], [address] RBC (Bld) [#/Vol] 4.71 10*6/uL Normal 4.6-6.2 [facility] Comment on above: Performed By: #### L 100.0100, L500.2500 #### [facility] [address] [place], [address] RDW SD 46.8 fl High 35.1-43.9 [facility] Comment on above: Performed By: #### L 100.0100, L500.2500 #### [facility] [address] [place], [address] WBC (Bld) [#/Vol] 5.0 10*3/uL Normal 4.4-11.0 [facility] Comment on above: Performed By: #### L 100.0100, L500.2500 #### [facility] [address] [place], [address] 12 Lead EKGon 07-31-2024 12 Lead EKG [facility] Cardiovascular Services [address] [place] [address] 12 Lead EKG 07/31/24 1233 MR#: [id number] Acct: [id number] Name: RIGO GARCIA Rep #: [id number] : 1970 54 From: Salvador Rodriguez MD Attending Dr: Dr. Michelle Angeles MD Status: AD M IN Ordering Dr: Keith Garcia MD Date: 07/31/24 [place] [facility] [place] Sex: M UTD Admitted: 07/31/24 Test Reason : SOB Blood Pressure : */* mmHG Vent. Rate : 95 BPM Atrial Rate : 95 BPM P-R Int : 156 ms QRS Dur : 78 ms QT Int : 330 ms P-R-T Axes : 45 74 19 degrees QTcB Int : 414 ms Normal sinus rhythm Normal ECG Confirmed by SANDY CANO, SALVADOR ([id number]), writer editor MARY BALTAZAR ([id number]) on 08/01/2024 8:48:24 AM Referred By: Maricruz Villareal Confirmed By: SALVADOR RODRIGUEZ MD 08/01/24 0848 Date Salvador Rodriguez MD CC: Dr. Michelle Angeles MD; Dr. Maricruz Villareal MD; Dr. Mame Bright MD; Dr. Keith Garcia MD Signed Normal [facility] Bedside Glucoseon 07-31-2024 FINGERSTICK GLU 116 mg/dL High 74-106 [facility] Comment on above: Result Comment: JEFFREY SHAHENT OF PATIENT CARE PER NURSING PROTOCOL Performed By: #### L 501.080 ####[facility] [address] [place], [address] Blood Gases by CPSon 025 Base excess Calc (Bld) [Moles/Vol] 6 mmol/L High -2 to +2 [facility] Comment on above: Performed By: #### L 100.0100, L500.2500 #### [facility] [address] [place], [address] Blood Gas Type ART Normal [facility] Comment on above: Performed By: #### L 100.0100, L500.2500 #### [facility] [address] [place], [address] CO2 [Moles/Vol] 32 mmol/L Normal [facility] Comment on above: Performed By: #### L 100.0100, L500.2500 #### [facility] [address] [place], [address] FI02 4.0 [facility] Comment on above: Performed By: #### L 100.0100, L500.2500 #### [facility] [address] [place], [address] HCO3 (Bld) [Moles/Vol] 30.6 mmol/L High 22-26 [facility] Comment on above: Performed By: #### L 100.0100, L500.2500 #### [facility] [address] [place], [address] Mode Not entered Normal [facility] Comment on above: Performed By: #### L 100.0100, L500.2500 #### [facility] [address] [place], [address] O2 Delivery Dev Not entered Normal [facility] Comment on above: Performed By: #### L 100.0100, L500.2500 #### [facility] [address] [place], [address] pCO2 50.8 mmHg High 35-45 [facility] Comment on above: Performed By: #### L 100.0100, L500.2500 #### [facility] [address] [place], [address] pH (Bld) 7.39 [pH] Normal 7.35-7.45 [facility] Comment on above: Performed By: #### L 100.0100, L500.2500 #### [facility] [address] [place], [address] PO2 60 mmHG Low 75-100 [facility] Comment on above: Performed By: #### L 100.0100, L500.2500 #### [facility] [address] [place], [address] SITE Not entered Normal [facility] Comment on above: Performed By: #### L 100.0100, L500.2500 #### [facility] [address] [place], [address] SO2 90 Low 95-99 [facility] Comment on above: Performed By: #### L 100.0100, L500.2500 #### [facility] [address] [place], [address] CBC W/Diff, Automatedon 02-0 3-2024 Absolute Lymph 0.33 X10 3/uL Low 0.83-4.51 [facility] Comment on above: Performed By: #### L 100.0100, L500.2500 #### [facility] [address] [place], [address] Absolute Neut 5.7 X10 3/uL Normal 2.0-7.7 [facility] Comment on above: Performed By: #### L 100.0100, L500.2500 #### [facility] [address] [place], [address] Basophils/100 WBC (Bld) 0.3 % Normal 0-1 [facility] Comment on above: Performed By: #### L 100.0100, L500.2500 #### [facility] [address] [place], [address] Eosinophils/100 WBC (Bld) 0.3 % Normal 0-5 [facility] Comment on above: Performed By: #### L 100.0100, L500.2500 #### [facility] [address] [place], [address] Erythrocyte distribution width (RBC) [Ratio] 15.0 % High 11.6-14.6 [facility] Comment on above: Performed By: #### L 100.0100, L500.2500 #### [facility] [address] [place], [address] Hematocrit (Bld) [Volume fraction] 41.3 % Normal 40-54 [facility] Comment on above: Performed By: #### L 100.0100, L500.2500 #### [facility] [address] [place], [address] Hemoglobin (Bld) [Mass/Vol] 12.8 g/dL Low 13.0-16.5 [facility] Comment on above: Performed By: #### L 100.0100, L500.2500 #### [facility] [address] [place], [address] IG% 0.300 Normal 0.0-0.9 [facility] Comment on above: Result Comment: IG% - Immature Granulocytes (promyelocytes, myelocytes and metamyelocytes) > 1% indicates that a LEFT SHIFT is Present. Performed By: #### L 100.0100, L500.2500 #### [facility] [address] [place], [address] Lymphocytes/100 WBC (Bld) 4.8 % Low 19-41 [facility] Comment on above: Performed By: #### L 100.0100, L500.2500 #### [facility] [address] [place], [address] MCH (RBC) [Entitic mass] 26.9 pg Low 27.0-32.0 [facility] Comment on above: Performed By: #### L 100.0100, L500.2500 #### [facility] [address] [place], [address] MCHC (RBC) [Mass/Vol] 31.0 g/dL Low 32-36 [facility] Comment on above: Performed By: #### L 100.0100, L500.2500 #### [facility] [address] [place], [address] MCV (RBC) [Entitic vol] 86.8 fL Normal 80-94 [facility] Comment on above: Performed By: #### L 100.0100, L500.2500 #### [facility] [address] [place], [address] Monocytes/100 WBC (Bld) 10.8 % High 0-10 [facility] Comment on above: Performed By: #### L 100.0100, L500.2500 #### [facility] [address] [place], [address] Neutrophils/100 WBC (Bld) 83.5 % High 47-70 [facility] Comment on above: Performed By: #### L 100.0100, L500.2500 #### [facility] [address] [place], [address] Nucleated RBC (Bld) [#/Vol] 0 10*3/uL Normal 0-5 [facility] Comment on above: Performed By: #### L 100.0100, L500.2500 #### [facility] [address] [place], [address] Platelet mean volume (Bld) [Entitic vol] 9.8 fL Normal 6.2-12.0 [facility] Comment on above: Performed By: #### L 100.0100, L500.2500 #### [facility] [address] [place], [address] Platelets (Bld) [#/Vol] 204 10*3/uL Normal 150-450 [facility] Comment on above: Performed By: #### L 100.0100, L500.2500 #### [facility] [address] [place], [address] RBC (Bld) [#/Vol] 4.76 10*6/uL Normal 4.6-6.2 [facility] Comment on above: Performed By: #### L 100.0100, L500.2500 #### [facility] [address] [place], [address] RDW SD 47.6 fl High 35.1-43.9 [facility] Comment on above: Performed By: #### L 100.0100, L500.2500 #### [facility] [address] [place], [address] WBC (Bld) [#/Vol] 6.8 10*3/uL Normal 4.4-11.0 [facility] Comment on above: Performed By: #### L 100.0100, L500.2500 #### [facility] [address] [place], [place], [address] Chest 1 View (Portable)on Chest 1 View (Portable) [facility] Imaging Services [address] [place], [place] [address] Chest 1 View (Portable) MR#: [id number] Acct: [id number] Name: RIGO GARCIA Rep #: [id number] : 1970 M 54 From: Yovani Aguirre MD PCP: Dr. Mame Bright MD Status: REG ER Study: Chest 1 View (Portable) Date of Exam: 07/31/24 Exam# [id number] Ordering Dr: Keith Garcia MD EXAM: XR Chest, 1 View CLINICAL INDICATION: TECHNIQUE: Frontal view of the chest. COMPARISON: No relevant prior studies available. FINDINGS: LUNGS AND PLEURAL SPACES: Unremarkable. No consolidation. No pneumothorax. HEART: Unremarkable. No cardiomegaly. MEDIASTINUM: Unremarkable. Normal mediastinal contour. BONES/JOINTS: Unremarkable. No acute fracture. RAD/Chest 1 View (Portable) IMPRESSION: No acute cardiopulmonary process. Reading [facility] CC: Dr. Mame Bright MD; Dr. Keith Garcia MD Rn Telephone Triage: Signed Normal [facility] Comprehensive Metabolic Prof ilon 07-31-2024 Albumin [Mass/Vol] 3.5 g/dL Normal 3.2-5.0 [facility] Comment on above: Performed By: #### L 501.4021 #### [facility] [address] [place], [place], [address] Albumin/Globulin [Mass ratio] 0.9 {ratio} Normal 0.9-2.4 [facility] Comment on above: Performed By: #### L 501.4021 #### [facility] [address] [place], [address] ALK P 125 U/L High 45-117 [facility] Comment on above: Performed By: #### L 501.4021 #### [facility] [address] [place], [address] ALT [Catalytic activity/Vol] 12 U/L Low 16-61 [facility] Comment on above: Performed By: #### L 501.4021 #### [facility] [address] [place], [address] AST [Catalytic activity/Vol] 11 U/L Low 15-37 [facility] Comment on above: Performed By: #### L 501.4021 #### [facility] [address] [place], [address] Bilirubin [Mass/Vol] 0.40 mg/dL Normal 0.20-1.00 [facility] Comment on above: Result Comment: For patients on eltrombopag therapy, use of Dimension [place] TBIL is not recommended. Performed By: #### L 501.4021 #### [facility] [address] [place], [address] BUN/CRE 10.8 RATIO Normal 10-20 [facility] Comment on above: Performed By: #### L 501.4021 #### [facility] [address] [place], [address] CA,Total 9.7 mg/dL Normal 8.5-10.1 [facility] Comment on above: Performed By: #### L 501.4021 #### [facility] [address] [place], [address] Chloride [Moles/Vol] 103 mmol/L Normal 98-107 [facility] Comment on above: Performed By: #### L 501.4021 #### [facility] [address] [place], [address] CO2 [Moles/Vol] 28.0 mmol/L Normal 21.0-32.0 [facility] Comment on above: Performed By: #### L 501.4021 #### [facility] [address] [place], [address] Creatinine [Mass/Vol] 1.30 mg/dL Normal 0.70-1.30 [facility] Comment on above: Result Comment: The validity of the calculated GFR GFRAA in patients over 70 years has not been determined. Clinical correlation is essential. Performed By: #### L 501.4021 #### [facility] [address] [place], [address] ECRCL 76.89 ml/min Normal [facility] Comment on above: Performed By: #### L 501.4021 #### [facility] [address] [place], [address] EST GFR - AA 74 mL/min Normal >60 [facility] Comment on above: Result Comment: Afri can Icelandic GFR Calc Performed By: #### L 501.4021 #### [facility] [address] [place], [address] GAP 7 Normal 5-15 [facility] Comment on above: Performed By: #### L 501.4021 #### [facility] [address] [place], [address] GFR/1.73 sq M.predicted among non-blacks MDRD (S/P/Bld) [Vol rate/Area] 61 mL/min/{1.73_m2} Normal >60 [facility] Comment on above: Result Comment: Non- GFR Calc Performed By: #### L 501.4021 #### [facility] [address] [place], [address] Globulin (S) [Mass/Vol] 3.7 g/dL Normal 2.2-4.2 [facility] Comment on above: Performed By: #### L 501.4021 #### [facility] [address] [place], [address] Glucose [Mass/Vol] 112 mg/dL High 74-106 [facility] Comment on above: Result Comment: Fast ing Glucose result from 100 to 125 mg/dL suggests IMPAIRED HOMEOSTASIS per A.D.A. criteria. Performed By: #### L 501.4021 #### [facility] [address] [place], [address] Potassium [Moles/Vol] 4.2 mmol/L Normal 3.5-5.1 [facility] Comment on above: Performed By: #### L 501.4021 #### [facility] [address] [place], [address] Sodium [Moles/Vol] 138 mmol/L Normal 136-145 [facility] Comment on above: Performed By: #### L 501.4021 #### [facility] [address] [place], [address] T PROT 7.2 g/dL Normal 6.4-8.2 [facility] Comment on above: Performed By: #### L 501.4021 #### [facility] [address] [place], [address] Urea nitrogen [Mass/Vol] 14 mg/dL Normal 7-18 [facility] Comment on above: Performed By: #### L 501.4021 #### [facility] [address] [place], [address] Emergency Department Summary on 07-31-[address] [facility] Medical Records Department [address] [place] [address] Emergency Department Summary 07/31/24 MR#: [id number] Acct: [id number] Name: RIGO GARCIA Rep #: [id number] : 1970 54 From: Keith Garcia MD [...] BIPOLAR 07/31/24 Unkn own History calcium carbonate (Leslye-[place] 300 mg PO DAILY PRN heartburn 09/19 [...] Oral Pulse (more content not included)... Normal [facility] H AND P Exam - Hospitaliston 07-31-2024 H&P Exam - Hospitalist [facility] Medical Records Department [address] [place] [address] H P Exam - Hospitalist 07/31/24 1705 MR#: [id number] Acct: [id number] Name: RIGO GARCIA Rep #: [id number] : 1970 54 From: Maricruz Villareal MD PCP: Dr. Mame Bright MD Status:ADM IN Location[place] [facility] [place] [id number] HPI - General General Date of Admission: 07/31/24 Date of Service: 07/31/24 Chief Complaint: N/V/D HPI Narrative RIGO GARCIA, is a 54-year-old male history of CVA with right-sided deficits, compartment syndrome with right upper extremity fasciotomy, depression, diabetes who presented [facility] ED 07/31/2024 with nausea, vomiting, diarrhea as [...] BIPOLAR 07/31/24 Unkn own History calcium carbonate ([place] 300 mg PO DAILY PRN heartburn 09/19 [...] conjunctiva, extraocula (more content not included)... Normal [facility] Lactic Acidon 07-31-2024 Lactate [Moles/Vol] 2.3 mmol/L Invalid Interpretation Code 0.4-1.9 [facility] Comment on above: Result Comment: Crit ical Result(s) Called at: 23:41:34 07/31/2024 by: AZEB NELSON. Results read back by Performed By: #### L 100.0100, L500.2500 #### [facility] [address] [place], [place], [address] Lactate [Moles/Vol] 3.0 mmol/L Invalid Interpretation Code 0.4-1.9 [facility] Comment on above: Order Comment: Y Result Comment: Crit ical Result(s) Called at: 13:09:37 07/31/2024 by: LELE MORALES TO NELI. Results read back by tarah. Performed By: #### L 501.4021 #### [facility] [address] [place], [place], [address] Partial Thromboplast Timeon 07-31-2024 aPTT Coag (Bld) [Time] 27.0 s Normal 24.1-36.2 [facility] Comment on above: Performed By: #### L 501.4021 #### [facility] [address] [place], [address] Prothrombin Time w/INRon INR Coag (PPP) [Relative time] 1.1 {INR} Normal [facility] Comment on above: Performed By: #### L 501.4021 #### [facility] [address] [place], [address] PT Coag (PPP) [Time] 14.2 s Normal 11.7-14.9 [facility] Comment on above: Performed By: #### L 501.4021 #### [facility] [address] [place], [address] Urinalysis, Completeon 07-31 WBC 0-5 SEEN Normal 0-5 [facility] Comment on above: Order Comment: COLLE CTOR TO SPECIFY Performed By: #### L 100.0100, L500.2500 #### [facility] [address] [place], [address] BACTERIA 0 SEEN Normal None Seen [facility] Comment on above: Order Comment: COLLE CTOR TO SPECIFY Performed By: #### L 100.0100, L500.2500 #### [facility] [address] [place], [address] EPI,SQUAMOUS 0 SEEN Normal 0-5 [facility] Comment on above: Order Comment: COLLE CTOR TO SPECIFY Performed By: #### L 100.0100, L500.2500 #### [facility] [address] [place], [address] Mucus Ql (Urine sed) 0 SEEN Normal [facility] Comment on above: Order Comment: COLLE CTOR TO SPECIFY Performed By: #### L 100.0100, L500.2500 #### [facility] [address] [place], [address] RBC 0 SEEN Normal 0-5 [facility] Comment on above: Order Comment: COLLE CTOR TO SPECIFY Performed By: #### L 100.0100, L500.2500 #### [facility] [address] [place], [address] Calcium.ionized [Mass/Vol]on 06-30-2022 Calcium Ionized 5.22 mg/dL Normal 4.50-5.30 [facility] Comment on above: Performed By: #### 1 9123-9 #### [facility] [address] [place] [address] Calcium.ionized (Bld) [Mass/Vol] 5.22 mg/dL 4.50 - 5.30 mg/dL [employer] Interpretation and review of laboratory results Normal [facility] metabolic 2000 panelon 06-30-2022 Albumin [Mass/Vol] 3.6 g/dL 3.5 - 4.8 g/dL [employer] ALP [Catalytic activity/Vol] 104 U/L High [employer] ALT [Catalytic activity/Vol] 27 U/L [employer] Anion gap [Moles/Vol] 5 mmol/L Low 6 - 18 [facility] [employer] AST [Catalytic activity/Vol] 10 U/L Low [employer] Bilirubin [Mass/Vol] 0.4 mg/dL 0.3 - 1 .2 mg/dL [employer] Calcium [Mass/Vol] 9.2 mg/dL 8.9 - 10. 3 mg/dL [employer] Chloride [Moles/Vol] 100 mmol/L 98 - 10 7 mmol/L [employer] CO2 [Moles/Vol] 31 mmol/L 22 - 32 mmol/L [employer] Creatinine [Mass/Vol] 1.16 mg/dL 0.60 - 1.30 mg/dL [employer] GFR/1.73 sq M.predicted among non-blacks MDRD (S/P/Bld) [Vol rate/Area] 76 mL/min/{1.73_m2} - [facility] Comment on above: Effective April 05, 2022, calculation based on the Chronic Kidney Disease Epidemiology Collaboration (CKD-EPI) equation refit without adjustment for race. Glucose [Mass/Vol] 303 mg/dL High 70 - 99 mg/dL [facility] Potassium [Moles/Vol] 4.1 mmol/L 3.6 - 5.1 mmol/L [facility] Protein [Mass/Vol] 6.2 g/dL 6.1 - 7.9 g/dL [facility] Sodium [Moles/Vol] 136 mmol/L 136 - 145 mmol/L [facility] Urea nitrogen [Mass/Vol] 20 mg/dL 8 - 20 mg/dL [facility] Urea nitrogen/Creatinine [Mass ratio] 17.2 mg/mg 12.0 - 20.0 [facility] Hemogram and platelets WO di fferential panel (Bld)on 06-30-2022 Erythrocyte distribution width (RBC) [Ratio] 13.4 % Normal 11.0-14.8 [facility] Comment on above: Performed By: #### 1 9123-9 #### [facility] [address] [place] [address] Hematocrit (Bld) [Volume fraction] 37.4 % Low 39.0-49.0 [facility] Comment on above: Performed By: #### 1 9123-9 #### [facility] [address] [place] [address] Hemoglobin (Bld) [Mass/Vol] 11.7 g/dL Low 13.5-17.5 [facility] Comment on above: Performed By: #### 1 9123-9 #### [facility] [address] [place] [address] MCH 27.8 pcg Normal 27.0-34.0 [facility] Comment on above: Performed By: #### 1 9123-9 #### [facility] [address] [place] [address] MCHC (RBC) [Mass/Vol] 31.3 g/dL Normal 30.8-35.3 [facility] Comment on above: Performed By: #### 1 9123-9 #### [facility] [address] [place] [address] MCV (RBC) [Entitic vol] 88.8 fL Normal 80.0-97.0 [facility] Comment on above: Performed By: #### 1 9123-9 #### [facility] [address] [place] [address] Platelet mean volume (Bld) [Entitic vol] 10.0 fL Normal 6.2-12.1 [facility] Comment on above: Performed By: #### 1 9123-9 #### [facility] [address] [place] [address] Platelets (Bld) [#/Vol] 170 10*3/uL Normal 142-424 [facility] Comment on above: Performed By: #### 1 9123-9 #### [facility] [address] [place] [address] RBC (Bld) [#/Vol] 4.21 10*6/uL Low 4.30-5.70 [facility] Comment on above: Performed By: #### 1 9123-9 #### [facility] [address] [place] [address] WBC (Bld) [#/Vol] 8.1 10*3/uL Normal 4.6-10.2 [facility] Comment on above: Performed By: #### 1 9123-9 #### [facility] [address] [place] [address] Erythrocyte distribution width (RBC) [Ratio] 13.4 % 11.0 - 14.8 % [facility] Hematocrit (Bld) [Volume fraction] 37.4 % Low 39.0 - 49.0 % [facility] Hemoglobin (Bld) [Mass/Vol] 11.7 g/dL Low 13.5 - 17.5 g/dL [facility] Interpretation and review of laboratory results Abnormal [facility] MCH (RBC) [Entitic mass] 27.8 pg [facility] MCHC (RBC) [Mass/Vol] 31.3 g/dL 30.8 - 35.3 g/dL [facility] MCV (RBC) [Entitic vol] 88.8 fL T [facility] Platelet mean volume (Bld) [Entitic vol] 10.0 fL [facility] Platelets (Bld) [#/Vol] 170 10*3/uL [facility] RBC (Bld) [#/Vol] 4.21 10*6/uL Low [facility] WBC (Bld) [#/Vol] 8.1 10*3/uL [facility] Magnesiumon 06-30-2022 Magnesium [Mass/Vol] 1.5 mg/dL Low 1.8 - 2 .5 mg/dL [facility] Magnesium [Mass/Vol]on 06-30 Albumin [Mass/Vol] 3.6 g/dL Normal 3.5-4.8 [facility] Comment on above: Performed By: #### 1 9123-9 #### [facility] [address] [place] [address] ALP [Catalytic activity/Vol] 104 U/L High 32-91 [facility] Comment on above: Performed By: #### 1 9123-9 #### [facility] [address] [place] [address] ALT [Catalytic activity/Vol] 27 U/L Normal 7-52 [facility] Comment on above: Performed By: #### 1 9123-9 #### [facility] [address] [place] [address] Anion gap [Moles/Vol] 5 mmol/L Low 6-18 [facility] Comment on above: Performed By: #### 1 9123-9 #### [facility] [address] [place] [address] AST [Catalytic activity/Vol] 10 U/L Low 15-41 [facility] Comment on above: Performed By: #### 1 9123-9 #### [facility] [address] [place] [address] Bilirubin [Mass/Vol] 0.4 mg/dL Normal 0.3-1.2 [facility] Comment on above: Performed By: #### 1 9123-9 #### [facility] [address] [place] [address] Calcium [Mass/Vol] 9.2 mg/dL Normal 8.9-10.3 [facility] Comment on above: Performed By: #### 1 9123-9 #### [facility] [address] [place] [address] Chloride [Moles/Vol] 100 mmol/L Normal 98-107 [facility] Comment on above: Performed By: #### 1 9123-9 #### [facility] [address] [place] [address] CO2 [Moles/Vol] 31 mmol/L Normal 22-32 [facility] Comment on above: Performed By: #### 1 9123-9 #### [facility] [address] [place] [address] Creatinine [Mass/Vol] 1.16 mg/dL Normal 0.60-1.30 [facility] Comment on above: Performed By: #### 1 9123-9 #### [facility] [address] [place] [address] GFR/1.73 sq M.predicted among non-blacks MDRD (S/P/Bld) [Vol rate/Area] 76 mL/min/{1.73_m2} Normal >=60 [facility] Comment on above: Result Comment: Effe ctive April 05, 2022, calculation based on the?Chronic Kidney Disease Epidemiology Collaboration (CKD-EPI) equation refit?without adjustment for race. Performed By: #### 1 9123-9 #### [facility] [address] [place] [address] Glucose [Mass/Vol] 303 mg/dL High 70-99 [facility] Comment on above: Performed By: #### 1 9123-9 #### [facility] [address] [place] [address] Potassium [Moles/Vol] 4.1 mmol/L Normal 3.6-5.1 [facility] Comment on above: Performed By: #### 1 9123-9 #### [facility] [address] [place] [address] Protein [Mass/Vol] 6.2 g/dL Normal 6.1-7.9 [facility] Comment on above: Performed By: #### 1 9123-9 #### [facility] [address] [place] [address] Sodium [Moles/Vol] 136 mmol/L Normal 136-145 [facility] Comment on above: Performed By: #### 1 9123-9 #### [facility] [address] [place] [address] Urea nitrogen [Mass/Vol] 20 mg/dL Normal 8-20 [facility] Comment on above: Performed By: #### 1 9123-9 #### [facility] [address] [place] [address] Urea nitrogen/Creatinine [Mass ratio] 17.2 mg/mg Normal 12.0-20.0 [facility] Comment on above: Performed By: #### 1 9123-9 #### [facility] [address] [place] [address] No Panel Informationon 06-30 Interpretation and review of laboratory results Abnormal [facility] Testosterone Free [Mass/Vol] on 06-18-2022 [facility] Testosterone, freeon Testosterone Free [Mass/Vol] 2.6 pg/mL [facility] Comment on above: No reference range a vailable for males under 20 years or over 50 years. Test performed at [facility], [facility] [place] [id number] Aleyda Arriola MD, PhD - Landscape Artist 25-hydroxyvitamin D3 [Mass/V ol]on 06-16-2022 Interpretation and review of laboratory results Abnormal [facility] Cobalamin (Vitamin B12) [Mas s/Vol]on 06-16-2022 Interpretation and review of laboratory results Normal [facility] Folateon 06-16-2022 Folate [Mass/Vol] 7.8 ng/mL 4.0 - PINF ng/ml [facility] Folate [Mass/Vol]on 06-16-20 Interpretation and review of laboratory results Normal [facility] Follicle stimulating hormone on 06-16-2022 Follitropin Qn 11.6 m[IU]/mL mIU/mL [facility] Comment on above: ADULT MALES: 1.3 TO 19.3 MIU/ML ADULT FEMALES: FOLLICULLAR: 3.9 TO 8.8 MIU/ML MIDCYCLE PEAK: 4.5 TO 22.5 MIU/ML LUTEAL: 1.8 TO 5.1 MIU/ML POSTMENOPAUSAL: 16.7 TO 114.0 MIU/ML Follitropin Qnon 06-16-2022 [facility] Lavender tubeon 06-16-2022 Specimen source Nom (Unsp spec) Hold for add-ons. [facility] Comment on above: Auto resulted. [facility] [employer] [Moles/Vol]on 2021 [employer] Level 0.50 mEq/L Normal 0.50-1.50 [facility] Comment on above: Performed By: #### 1 4334-7 #### [facility] [address] [place] [address] Vitamin B-12 276 pcg/mL Normal 180-914 [facility] Comment on above: Performed By: #### 1 4334-7 #### [facility] [address] [place] [address] Interpretation and review of laboratory results Normal [facility] Interpretation and review of laboratory results Normal [facility] [employer] levelon 06-16-2022 [employer] [Moles/Vol] 0.50 mmol/L [facility] [employer] [Moles/Vol] 0.50 mmol/L [facility] Luteinizing hormoneon 2021 Lutropin Qn 6.7 m[IU]/mL mIU/mL [facility] Comment on above: ADULT MALES: 1.2 TO 8.6 MIU/ML ADULT FEMALES: FOLLICULLAR: 2.1 TO 10.9 MIU/ML [place]: 19.2 TO 103.0 MIU/ML LUTEAL: 1.2 TO 12.9 MIU/ML POSTMENOPAUSAL: 16.7 TO 114.0 MIU/ML Lutropin Qnon 06-16-2022 [facility] Testosterone Free [Mass/Vol] on 06-16-2022 Testosterone Free 2.6 pg/mL Normal [facility] Comment on above: Result Comment: No r eference range available for males under 20 years or over 50 years. Test performed at [facility], [address] [place] [address] Aleyda Arriola MD, PhD - Landscape Artist Performed By: #### 1 9123-9 #### [facility] [address] [place] [address] Testosterone [Mass/Vol]on Interpretation and review of laboratory results Abnormal [facility] Testosterone 1.17 ng/mL Low 1.68 - 7.46 ng/mL [facility] Luteinizing Hormone 6.7 mIU/mL Normal [facility] Comment on above: Result Comment: ADUL T MALES: 1.2 TO 8.6 MIU/ML ADULT FEMALES: FOLLICULLAR: 2.1 TO 10.9 MIU/ML MIDCYCLE PEAK: 19.2 TO 103.0 MIU/ML LUTEAL: 1.2 TO 12.9 MIU/ML POSTMENOPAUSAL: 16.7 TO 114.0 MIU/ML Performed By: #### 2 986-8 #### [facility] [address] [place] [address] Vitamin B12on 06-16-2022 Cobalamin (Vitamin B12) [Mass/Vol] 276 pg/mL [facility] Vitamin D 25 hydroxyon 06-16 25-hydroxyvitamin D3 [Mass/Vol] 15.0 ng/mL Low 30.0 - 100.0 ng/mL [facility] Comment on above: Deficient <20 ng/mL Insufficient 20 to 30 ng/mL Sufficient 30-100 ng/mL Toxic >100 ng/mL Drugs identified Screen Nom (U)on 06-10-2022 Amphetamine Screen, Ur Not detected Normal Not Detecte d [facility] Comment on above: Order Comment: The [...] request. Performed By: #### 1 2286-1 #### [facility] [address] [place] [address] Barbiturate Screen, Ur Not detected Normal Not Detecte d [facility] Comment on above: Order Comment: The [...] request. Performed By: #### 1 2286-1 #### [facility] [address] [place] [address] Benzodiazepine Screen, Ur Not detected Normal Not Detected [facility] Comment on above: Order Comment: The [...] request. Performed By: #### 1 2286-1 #### [facility] [address] [place] [address] Cannabinoid (THC) Screen, Ur Not detected Normal Not Detected [facility] Comment on above: Order Comment: The [...] request. Performed By: #### 1 2286-1 #### [facility] [address] [place] [address] Cocaine Screen, Ur Not detected Normal Not Detected [facility] Comment on above: Order Comment: The f [...] request. Performed By: #### 1 2286-1 #### [facility] [address] [place] [address] Methadone Screen, Urine Not detected Normal Not Detect ed [facility] Comment on above: Order Comment: The [...] request. Performed By: #### 1 2286-1 #### [facility] [address] [place] [address] Opiate Screen, Ur Not detected Normal Not Detected [facility] Comment on above: Order Comment: The [...] request. Performed By: #### 1 2286-1 #### [facility] [address] [place] [address] Oxycodone Screen, Ur Not detected Normal Not Detected [facility] Comment on above: Order Comment: The [...] request. Performed By: #### 1 2286-1 #### [facility] [address] [place] [address] Amphetamines Ql (U) Not detected Not Detected [employer] Barbiturates Screen Ql (U) Not detected Not Detected [facility] Benzodiazepines Ql (U) Not detected Not Detecte d [facility] Cannabinoids Screen Ql (U) Not detected Not Detected [facility] Cocaine Ql (U) Not detected Not Detected [facility] Interpretation and review of laboratory results Normal [facility] Methadone Screen Ql (U) Not detected Not Detect ed [facility] Opiates Screen Ql (U) Not detected Not Detected [facility] oxyCODONE Ql (U) Not detected Not Detected Sarah [facility] The following detection limits are used for the urine drugs of abuse: Amphetamine 1000 ng/mL Barbiturate 200 ng/mL Benzodiazepine 200 ng/mL Cannabinoids 50 ng/mL Cocaine 300 ng/mL Methadone 300 ng/mL Opiates 300 ng/mL Oxycodone 100 ng/mL Testing is for screening purposes only and should not be used in non-medical determinations. Confirmatory testing is available on request. [facility] Glucose Auto test strip (Bld ) [Mass/Vol]on 06-10-2022 Glucose [Mass/Vol] 55 mg/dL Low 70-99 [facility] Comment on above: Performed By: #### 2 340-8 #### [facility] [address] [place] [address] Glucose [Mass/Vol] 55 mg/dL Low 70 - 99 mg/dL [facility] Interpretation and review of laboratory results Abnormal [employer] Glucose [Mass/Vol] 213 mg/dL High 70-99 [facility] Comment on above: Performed By: #### 2 340-8 #### [facility] [address] [place] [address] Glucose [Mass/Vol] 213 mg/dL High 70 - 99 mg/dL [facility] Interpretation and review of laboratory results Abnormal [facility] Urinalysis macro (dipstick) panel (U)on 06-10-2022 Bilirubin, Urine Negative Normal Negative [facility] Comment on above: Performed By: #### 2 4357-6 #### [facility] [address] [place] [address] Blood, Urine Negative Normal Negative [facility] Comment on above: Performed By: #### 2 4357-6 #### [facility] [address] [place] [address] Clarity (U) Clear Normal Clear [facility] Comment on above: Performed By: #### 2 4357-6 #### [facility] [address] [place] [address] Color (U) Yellow Normal Yellow [facility] Comment on above: Performed By: #### 2 4357-6 #### [facility] [address] [place] [address] Glucose Ql (U) Normal Normal Normal [facility] Comment on above: Performed By: #### 2 4357-6 #### [facility] [address] [place] [address] Ketones Ql (U) Negative Normal Negative [facility] Comment on above: Performed By: #### 2 4357-6 #### [facility] [address] [place] [address] Leukocytes, Urine 1+ Abnormal Negative [facility] Comment on above: Performed By: #### 2 4357-6 #### [facility] [address] [place] [address] Nitrite, Urine Negative Normal Negative [facility] Comment on above: Performed By: #### 2 4357-6 #### [facility] [address] [place] [address] pH (U) 7.0 [pH] Normal 5.0-8.0 [facility] Comment on above: Performed By: #### 2 4357-6 #### [facility] [address] [place] [address] Protein, Urine Negative Normal Negative [facility] Comment on above: Performed By: #### 2 4357-6 #### [facility] [address] [place] [address] Specific [place], Urine 1.015 Normal 1.002-1.030 [facility] Comment on above: Performed By: #### 2 4357-6 #### [facility] [address] [place] [address] Urobilinogen, Urine Normal Normal Normal [facility] Comment on above: Performed By: #### 2 4357-6 #### [facility] [address] [place] [address] Urinalysis macro (dipstick) panel (U)Ordered By: London Hicks on 06-10-2022 Bilirubin Ql (U) Negative Negative [facility] Clarity (U) Clear Clear [facility] Color (U) Yellow Yellow [facility] Glucose Ql (U) Normal Normal mg/dL [facility] Hemoglobin Ql (U) Negative Negative eryth/mcL [facility] Interpretation and review of laboratory results Abnormal [facility] Ketones (U) [Mass/Vol] Negative Negat kyra mg/dL [employer] Leukocyte esterase Test strip Ql (U) 1+ Abnormal Negative [facility] Nitrite Ql (U) Negative Negative [facility] pH (U) 7.0 [pH] 5.0 - 8.0 pH [facility] Protein (U) [Mass/Vol] Negative Negat kyra mg/dL [facility] Specific gravity (U) [Rel density] 1.015 1.002 - 1.030 [facility] Urobilinogen (U) [Mass/Vol] Normal Normal mg/dL [facility] Basic metabolic 2000 panelon 06-09-2022 Anion gap [Moles/Vol] 5 mmol/L Low 6 - 18 Webs Calcium [Mass/Vol] 9.5 mg/dL 8.9 - 10. 3 mg/dL [facility] Chloride [Moles/Vol] 104 mmol/L 98 - 10 7 mmol/L [facility] CO2 [Moles/Vol] 29 mmol/L 22 - 32 mmol/L [facility] Creatinine [Mass/Vol] 1.14 mg/dL 0.60 - 1.30 mg/dL [facility] GFR/1.73 sq M.predicted MDRD (S/P/Bld) [Vol rate/Area] 77 mL/min/{1.73_m2} - PINF [facility] Comment on above: Effective April 05, 2022, calculation based on the Chronic Kidney Disease Epidemiology Collaboration (CKD-EPI) equation refit without adjustment for race. Glucose [Mass/Vol] 127 mg/dL High 70 - 99 mg/dL [facility] Potassium [Moles/Vol] 3.8 mmol/L 3.6 - 5.1 mmol/L [facility] Sodium [Moles/Vol] 138 mmol/L 136 - 145 mmol/L [facility] Urea nitrogen [Mass/Vol] 19 mg/dL 8 - 20 mg/dL [facility] Urea nitrogen/Creatinine [Mass ratio] 16.7 mg/mg 12.0 - 20.0 [facility] Ethanol (Bld) [Moles/Vol]on 06-09-2022 Ethanol [Mass/Vol] mg/dL NINF - 10 mg/dL [facility] Hemogram and platelets WO di fferential panel (Bld)on 06-09-2022 Basophils (Bld) [#/Vol] 0.04 10*3/uL Normal 0.00-0.20 [facility] Comment on above: Performed By: #### 2 4317-0 #### [facility] [address] [place] [address] Basophils/100 WBC (Bld) 0.4 % Normal 0.0-2.0 [facility] Comment on above: Performed By: #### 2 4317-0 #### [facility] [address] [place] [address] Eosinophils (Bld) [#/Vol] 0.31 10*3/uL Normal 0.00-0.70 [facility] Comment on above: Performed By: #### 2 4317-0 #### [facility] [address] [place] [address] Eosinophils/100 WBC (Bld) 2.8 % Normal 0.0-7.0 [facility] Comment on above: Performed By: #### 2 4317-0 #### [facility] [address] [place] [address] Erythrocyte distribution width (RBC) [Ratio] 13.7 % Normal 11.0-14.8 [facility] Comment on above: Performed By: #### 2 4317-0 #### [facility] [address] [place] [address] Hematocrit (Bld) [Volume fraction] 42.0 % Normal 39.0-49.0 [facility] Comment on above: Performed By: #### 2 4317-0 #### [facility] [address] [place] [address] Hemoglobin (Bld) [Mass/Vol] 12.6 g/dL Low 13.5-17.5 [facility] Comment on above: Performed By: #### 2 4317-0 #### [facility] [address] [place] [address] Immature granulocytes (Bld) [#/Vol] 0.03 10*3/uL Normal [facility] Comment on above: Performed By: #### 2 4317-0 #### [facility] [address] [place] [address] Immature granulocytes/100 WBC (Bld) 0.3 % Normal 0.0-1.2 [facility] Comment on above: Performed By: #### 2 4317-0 #### [facility] [address] [place] [address] Lymphocytes (Bld) [#/Vol] 2.17 10*3/uL Normal 1.00-4.80 [facility] Comment on above: Performed By: #### 2 4317-0 #### [facility] [address] [place] [address] Lymphocytes/100 WBC (Bld) 19.5 % Normal 17.9-49.6 [facility] Comment on above: Performed By: #### 2 4317-0 #### [facility] [address] [place] [address] MCH 27.7 pcg Normal 27.0-34.0 [facility] Comment on above: Performed By: #### 2 4317-0 #### [facility] [address] [place] [address] MCHC (RBC) [Mass/Vol] 30.0 g/dL Low 30.8-35.3 [facility] Comment on above: Performed By: #### 2 4317-0 #### [facility] [address] [place] [address] MCV (RBC) [Entitic vol] 92.3 fL Normal 80.0-97.0 [facility] Comment on above: Performed By: #### 2 4317-0 #### [facility] [address] [place] [address] Monocytes (Bld) [#/Vol] 1.02 10*3/uL High 0.00-0.90 [facility] Comment on above: Performed By: #### 2 4317-0 #### [facility] [address] [place] [address] Monocytes/100 WBC (Bld) 9.2 % Normal 0.0-12.0 [facility] Comment on above: Performed By: #### 2 4317-0 #### [facility] [address] [place] [address] Neutrophils Absolute 7.53 K/mcL Normal 1.80-7.70 [facility] Comment on above: Performed By: #### 2 4317-0 #### [facility] [address] [place] [address] Neutrophils/100 WBC (Bld) 67.8 % Normal 38.1-75.5 [facility] Comment on above: Performed By: #### 2 4317-0 #### [facility] [address] [place] [address] Platelet mean volume (Bld) [Entitic vol] 9.8 fL Normal 6.2-12.1 [facility] Comment on above: Performed By: #### 2 4317-0 #### [facility] [address] [place] [address] Platelets (Bld) [#/Vol] 211 10*3/uL Normal 142-424 [facility] Comment on above: Performed By: #### 2 4317-0 #### [facility] [address] [place] [address] RBC (Bld) [#/Vol] 4.55 10*6/uL Normal 4.30-5.70 [facility] Comment on above: Performed By: #### 2 4317-0 #### [facility] [address] [place] [address] WBC (Bld) [#/Vol] 11.1 10*3/uL High 4.6-10.2 [facility] Comment on above: Performed By: #### 2 4317-0 #### [facility] [address] [place] [address] Basophils (Bld) [#/Vol] 0.04 10*3/uL [facility] [...] MCV (RBC) [Entitic vol] 92.3 fL T [facility] Monocytes (Bld) [#/Vol] 1.02 10*3/uL High [facility] Monocytes/100 WBC (Bld) 9.2 % 0.0 - 12.0 % [facility] Neutrophils (Bld) [#/Vol] 7.53 10*3/uL [facility] Neutrophils/100 WBC (Bld) 67.8 % 38.1 - 75.5 % [facility] Platelet mean volume (Bld) [Entitic vol] 9.8 fL [facility] Platelets (Bld) [#/Vol] 211 10*3/uL [facility] RBC (Bld) [#/Vol] 4.55 10*6/uL [facility] WBC (Bld) [#/Vol] 11.1 10*3/uL High [facility] Hepatic function 2000 panelo n 06-09-2022 Albumin [Mass/Vol] 4.2 g/dL 3.5 - 4.8 g/dL [facility] ALP [Catalytic activity/Vol] 90 U/L [facility] ALT [Catalytic activity/Vol] 21 U/L [facility] AST [Catalytic activity/Vol] 14 U/L Low [facility] Bilirubin [Mass/Vol] 0.3 mg/dL 0.3 - 1 .2 mg/dL [facility] Bilirubin.direct [Mass/Vol] 0.1 mg/dL NINF - 0.5 mg/dL [facility] Bilirubin.indirect [Mass/Vol] 0.2 mg/dL 0.0 - 1.0 mg/dL [facility] Protein [Mass/Vol] 7.0 g/dL 6.1 - 7.9 g/dL [facility] Lipaseon 06-09-2022 Lipase [Catalytic activity/Vol] 18 U/L [facility] [employer] [Moles/Vol]on 2021 Interpretation and review of laboratory results Normal [facility] [employer] levelon 06-09-2022 [employer] [Moles/Vol] 1.50 mmol/L [facility] Magnesiumon 06-09-2022 Magnesium [Mass/Vol] 1.8 mg/dL 1.8 - 2 .5 mg/dL [facility] Magnesium [Mass/Vol]on 06-09 [employer] Level 1.50 mEq/L Normal 0.50-1.50 [facility] Comment on above: Performed By: #### 1 9123-9 #### [facility] [address] [place] [address] No Panel Informationon 06-09 Interpretation and review of laboratory results Abnormal [facility] Interpretation and review of laboratory results Normal [facility] Red top grass IgE Qn (S)on 1 08-10-2021 Specimen source Nom (Unsp spec) Hold for add-ons. [facility] Comment on above: Auto resulted. [facility] SARS-CoV-2 (COVID-19) RNA NA A+probe Ql (Resp)on 06-09-2022 Interpretation and review of laboratory results Normal [facility] SARS-CoV-2 (COVID-19) RdRp gene DALIA+probe Ql (Resp) Not detected Not Detected [facility] SARS-CoV-2 RNA Resp Ql DALIA+p robeon 06-09-2022 SARS-CoV-2 (COVID-19) RNA DALIA+probe Ql (Resp) Not detected Normal Not Detected [facility] Comment on above: Performed By: #### 9 [id number] #### [facility] [address] [place] [address] TSH Qnon 06-09-2022 Interpretation and review of laboratory results Normal [facility] Thyroid stimulating hormoneo n 06-09-2022 TSH Qn 0.98 m[IU]/L [facility] POCT GLUCOSEon 05-18-2022 Glucose [Mass/Vol] 120 mg/dL Normal [facility] Comment on above: Performed By: #### G LUP #### [facility] [address] [place] [address] [facility] POCT glucoseon 05-18-2022 Yeast Wet prep Ql (Vag fld) 120 [facility] SARS-COV-2, PCRon 05-18-2022 SARS-CoV-2 (COVID-19) RNA DALIA+probe [...] during the acute phase of infection. Normal [facility] Comment on above: Performed By: #### L [id number], [id number], [id number] #### [address] SARS-CoV-2 (COVID-19) RNA DALIA+probe Ql (Resp) Negative Negative [facility] Comment on above: Negative results do not [...] Interpretation and review of laboratory results Normal [facility] POCT GLUCOSEon 05-17-2022 Glucose [Mass/Vol] 197 mg/dL Normal [facility] Comment on above: Performed By: #### L [id number], [id number], [id number] #### [facility] [address] POCT glucoseon 05-17-2022 Yeast Wet prep Ql (Vag fld) 197 [facility] POCT GLUCOSEon 05-16-2022 Glucose [Mass/Vol] 160 mg/dL Normal [facility] Comment on above: Performed By: #### L [id number], [id number], [id number] #### [address] POCT glucoseon 05-16-2022 Yeast Wet prep Ql (Vag fld) 160 [facility] HbA1c (Bld) [Mass fraction]o n 05-15-2022 Interpretation and review of laboratory results Normal [facility] Hemoglobin A1con 05-15-2022 HbA1c (Bld) [Mass fraction] 5.7 % NINF - 6.0 % [facility] Comment on above: Reference Interval f or %A1c: %A1c (NGSP) Interpretation <6.0% Non-Diabetic Range >6.5% Action Suggested Lipid panelon 05-15-2022 Cholesterol [Mass/Vol] 132 mg/dL NINF - 200 mg/dL [facility] Cholesterol in HDL [Mass/Vol] 45.7 mg/dL 40.0 - 59.9 mg/dL [facility] Cholesterol in LDL [Mass/Vol] 56.3 mg/dL NINF - 100 mg/dL [facility] Comment on above: LDL REFERENCE RANGE: Optimal <100 mg/dl Near Optimal 100-129 mg/dL Borderline High 130-159 mg/dL High 160-189 mg/dL Very High >=190 mg/dL Cholesterol in VLDL [Mass/Vol] 30 mg/dL NINF - 41 mg/dL [facility] Interpretation and review of laboratory results Normal [facility] Triglyceride [Mass/Vol] 150 mg/dL NINF - 150 mg/dL [facility] Syphilis Treponema Antibodyo n 05-15-2022 T. pallidum Ab IA Ql (S) Non-Reactive Nonreactive [facility] T. pallidum Ab IA Ql (S)on 07-15-2021 Interpretation and review of laboratory results Normal [facility] Thyroid Cascadeon 05-15-2022 Interpretation and review of laboratory results Normal [facility] Tryptophan/Creatinine (U) [Ratio] 0.615 [facility] BASIC METABOLIC PANELon 04-28 Anion gap [Moles/Vol] 5 mmol/L Low 8-12 [facility] Comment on above: Performed By: #### 4 [id number], [id number], [id number] #### [place] [address] Calcium [Mass/Vol] 9.3 mg/dL Normal 8.4-10.4 [facility] Comment on above: Performed By: #### 4 [id number], [id number], [id number] #### [facility] [address] [place] [address] [place] Chloride [Moles/Vol] 105 mmol/L Normal 96-109 [facility] Comment on above: Performed By: #### 4 [id number], [id number], [id number] #### [facility] [address] [place] [address] [place] CO2 [Moles/Vol] 28.5 mmol/L Normal 22-30 [facility] Comment on above: Performed By: #### 4 [id number], [id number], [id number] #### [facility] [address] [place] [address] [facility] Creatinine [Mass/Vol] 1.10 mg/dL Normal 0.66-1.25 [facility] Comment on above: Performed By: #### 4 [id number], [id number], [id number] #### [facility] [address] [place] [address] [place] GLOMERULAR FILTRATION RATE ML/MIN/1.73 SQ M.PREDICTED 80.8 mL/min/1.73m*2 Normal >=60.0 [facility] Comment on above: Result Comment: eGFR calculation [...] Kidney Int Suppl.2013;3:1-150 Performed By: #### 4 [id number], [id number], [id number] #### [facility] [address] [place] [address] [facility] Glucose [Mass/Vol] 92.5 mg/dL Normal 65-100 [facility] Comment on above: Performed By: #### 4 [id number], [id number], [id number] #### [facility] [address] Potassium [Moles/Vol] 4.2 mmol/L Normal 3.6-5.1 [facility] Comment on above: Performed By: #### 4 [id number], [id number], [id number] #### [facility] [address] Sodium [Moles/Vol] 138.1 mmol/L Normal 135-147 [facility] Comment on above: Performed By: #### 4 [id number], [id number], [id number] #### [facility] [address] Urea nitrogen [Mass/Vol] 20.7 mg/dL Normal 8-26 [facility] Comment on above: Performed By: #### 4 [id number], [id number], [id number] #### [facility] [address] Basic metabolic panel aka em 805-14-2022 Anion gap [Moles/Vol] 5 mmol/L Low 8 - 12 mmol/L [facility] Calcium [Mass/Vol] 9.3 mg/dL 8.4 - 10. 4 mg/dL [facility] Calcium hydrogen phosphate dihydrate crystals LM Ql (Urine sed) 20.7 mg/dL 8 - 26 mg/dL [facility] Chloride [Moles/Vol] 105 mmol/L 96 - 10 9 mmol/L [facility] CMV IgM IF Ql 28.5 mmol/L 22 - 30 mmol/L [facility] Creatinine [Mass/Vol] 1.10 mg/dL 0.66 - 1.25 mg/dL [facility] GFR/1.73 sq M.predicted MDRD (S/P/Bld) [Vol rate/Area] 80.8 mL/min/{1.73_m2} - PINF [facility] Comment on above: eGFR calculation bas ed [...] [Mass/Vol] 92.5 mg/dL 65 - 100 mg/dL [facility] Interpretation and review of laboratory results Abnormal [facility] Potassium [Moles/Vol] 4.2 mmol/L 3.6 - 5.1 mmol/L [facility] Sodium [Moles/Vol] 138.1 mmol/L 135 - 147 mmol/L [facility] CARBAMAZEPINE LEVEL, TOTALon 05-14-2022 CARBAMAZEPINE 6.4 ug/mL Normal 4.0-12.0 [facility] Comment on above: Performed By: #### 4 [id number], [id number], [id number] #### [address] CBC AND DIFFERENTIALon 05-14 ABSOLUTE BASOPHIL 0.1 x10*3/uL Normal 0.0-0.1 [facility] Comment on above: Performed By: #### 4 [id number] #### [address] ABSOLUTE EOSINOPHIL 0.3 x10*3/uL Normal 0.1-0.3 [facility] Comment on above: Performed By: #### 4 [id number] #### [address] ABSOLUTE IMMATURE GRANULOCYTES 0.0 x10*3/uL Normal 0.0-0.1 [facility] Comment on above: Performed By: #### 4 [id number] #### [address] ABSOLUTE LYMPH 2.3 x10*3/uL Normal 1.2-3.3 [facility] Comment on above: Performed By: #### 4 [id number] #### [address] ABSOLUTE MONO 0.7 x10*3/uL High 0.2-0.6 [facility] Comment on above: Performed By: #### 4 [id number] #### [address] ABSOLUTE NEUTROPHIL 5.9 x10*3/uL Normal 2.4-6.6 [facility] Comment on above: Performed By: #### 4 [id number] #### [address] Basophils/100 WBC (Bld) 0.5 % Normal [facility] Comment on above: Performed By: #### 4 [id number] #### [address] Eosinophils/100 WBC (Bld) 3.5 % Normal [facility] Comment on above: Performed By: #### 4 [id number] #### [address] Erythrocyte distribution width (RBC) [Ratio] 13.8 % Normal 11.5-14.5 [facility] Comment on above: Performed By: #### 4 [id number] #### [address] Hematocrit (Bld) [Volume fraction] 39.4 % Normal 37.7-51.1 [facility] Comment on above: Performed By: #### 4 [id number] #### [address] Hemoglobin (Bld) [Mass/Vol] 12.2 g/dL Low 12.8-17.7 [facility] Comment on above: Performed By: #### 4 [id number] #### [address] Immature granulocytes/100 WBC (Bld) 0.2 % [facility] Comment on above: Performed By: #### 4 [id number] #### [address] Lymphocytes/100 WBC (Bld) 24.4 % Normal [facility] Comment on above: Performed By: #### 4 [id number] #### [address] MCH (RBC) [Entitic mass] 28.6 pg Normal 27.0-34.2 [facility] Comment on above: Performed By: #### 4 [id number] #### [address] MCHC (RBC) [Mass/Vol] 31.0 g/dL Low 31.4-36.2 [facility] Comment on above: Performed By: #### 4 [id number] #### [address] MCV (RBC) [Entitic vol] 92.5 fL Normal 80.6-99 G [facility] Comment on above: Performed By: #### 4 [id number] #### [address] Monocytes/100 WBC (Bld) 7.5 % Normal [facility] Comment on above: Performed By: #### 4 [id number] #### [address] Neutrophils/100 WBC (Bld) 63.9 % Normal [facility] Comment on above: Performed By: #### 4 [id number] #### [address] NUCLEATED RED BLOOD CELLS AUTO 0.0 % Normal 0.0-1.0 [facility] Comment on above: Performed By: #### 4 [id number] #### [address] PLATELET COUNT 192 x10*3/uL Normal 150-400 [facility] Comment on above: Performed By: #### 4 [id number] #### [address] RED BLOOD CELL COUNT 4.26 x10*6/uL Normal 3.70-5.70 [facility] Comment on above: Performed By: #### 4 [id number] #### [address] WHITE BLOOD CELLS 9.3 x10*3/uL Normal 4.3-10.3 [facility] Comment on above: Performed By: #### 4 [id number] #### [address] CBC with DifferentialOrdered By: Background Lab on 05-14-2022 Absolute Immature Granulocytes 0.0 [facility] Age [Time] 92.5 fL 80.6 - 99 fL [facility] Age [Time] 28.6 pg 27.0 - 34.2 pg [facility] Age [Time] 31.0 g/dL Low 31.4 - 36.2 g/dL [facility] B. burgdorferi IgM IB Ql (CSF) 24.4 % [facility] Basophils (Bld) [#/Vol] 0.1 10*3/uL [facility] Basophils/100 WBC (Body fld) 0.5 % [facility] Eosinophils (Bld) [#/Vol] 2.3 10*3/uL [facility] Eosinophils (Bld) [#/Vol] 0.7 10*3/uL High [facility] Eosinophils (Bld) [#/Vol] 0.3 10*3/uL [facility] Eosinophils/100 WBC (Bld) 3.5 % [facility] Erythrocyte distribution width (RBC) [Ratio] 13.8 % 11.5 - 14.5 % [facility] Hematocrit (Bld) [Volume fraction] 39.4 % 37.7 - 51.1 % [facility] Hexanoylglycine (U) [Moles/Vol] 12.2 g/dL Low 12.8 - 17.7 g/dL [facility] Immature granulocytes/100 WBC (Bld) 0.2 % [facility] Interpretation and review of laboratory results Abnormal [facility] Monocytes/100 WBC (Bld) 7.5 % [facility] Neurotensin (P) [Mass/Vol] 63.9 % [facility] Neutrophils (Bld) [#/Vol] 5.9 10*3/uL [facility] Nucleated RBC/100 WBC (Bld) [Ratio] 0.0 % 0.0 - 1.0 % [facility] Platelets (Bld) [#/Vol] 192 10*3/uL [facility] RBC (Bld) [#/Vol] 4.26 10*6/uL [facility] WBC LM Ql (Sput) 9.3 [facility] Carbamazepine level, totalon 05-14-2022 carBAMazepine 10,11-Epoxide [Mass/Vol] 6.4 ug/mL 4.0 - 12.0 ug/mL [facility] Interpretation and review of laboratory results Normal [facility] HEMOGLOBIN A1Con 05-14-2022 HbA1c (Bld) [Mass fraction] 5.7 % Normal <=6.0 [facility] Comment on above: Result Comment: Refe rence Interval for %A1c: %A1c (NGSP) Interpretation <6.0% Non-Diabetic Range >6.5% Action Suggested Performed By: #### 4 [id number] #### [address] LIPID PANELon 05-14-2022 Cholesterol [Mass/Vol] 132 mg/dL Normal <=200 [facility] Comment on above: Performed By: #### 4 [id number], [id number], [id number] #### [address] Cholesterol in HDL [Mass/Vol] 45.7 mg/dL Normal 40.0-59.9 [facility] Comment on above: Performed By: #### 4 [id number], [id number], [id number] #### [address] LDL CHOLESTEROL CALCULATED 56.3 mg/dL Normal <=100 [facility] Comment on above: Result Comment: LDL REFERENCE RANGE: Optimal <100 mg/dl Near Optimal 100-129 mg/dL Borderline High 130-159 mg/dL High 160-189 mg/dL Very High >=190 mg/dL Performed By: #### 4 [id number], [id number], [id number] #### [address] Triglyceride [Mass/Vol] 150 mg/dL Normal <=150 [facility] Comment on above: Performed By: #### 4 [id number], [id number], [id number] #### [address] VLDL CHOLESTEROL MAGALY 30 mg/dL Normal <=41 [facility] Comment on above: Performed By: #### 4 [id number], [id number], [id number] #### [address] LITHIUM LEVELon 05-14-2022 LITHIUM LEVEL 0.5 mmol/L Low 0.6-1.2 [facility] Comment on above: Performed By: #### L [id number], [id number], [id number] #### [address] [employer] levelon 05-14-2022 Interpretation and review of laboratory results Abnormal [facility] [employer] [Moles/Vol] 0.5 mmol/L Low 0.6 - 1. 2 mmol/L [facility] No Panel Informationon 05-14 Extra Tube Hold for add-ons. [facility] SYPHILIS TREPONEMA ANTIBODYo n 05-14-2022 SYPHILIS TREPONEMA ANTIBODY Non-Reactive Normal Nonreactive [facility] Comment on above: Performed By: #### L [id number], [id number], [id number] #### [facility] [address] [place] [address] THYROID CASCADE PANELon 11- TSH CASCADE 0.615 uIU/mL Normal 0.465-4.680 [facility] Comment on above: Performed By: #### L [id number], [id number], [id number] #### [facility] [address] [place] [address] TOXICOLOGY SCREEN, URINEon 1 07-14-2021 AMPHETAMINE/METH Not detected Normal Not Detecte d (Cutoff <1000 ng/mL) [facility] Comment on above: Order Comment: Notes :1. Screening results should be considered presumptive unless the presence of the analyte has been confirmed by a reference lab2. All drug groups are analyzed on urine specimens Performed By: #### L [id number], [id number], [id number] #### [facility] [address] [place] [address] BARBITURATES Not detected Normal Not Detected (Cutoff <200 ng/mL) [facility] Comment on above: Order Comment: Notes :1. Screening results should be considered presumptive unless the presence of the analyte has been confirmed by a reference lab2. All drug groups are analyzed on urine specimens Performed By: #### L [id number], [id number], [id number] #### [facility] [address] [place] [address] BENZODIAZEPINES Not detected Normal Not Detected (Cutoff <200 ng/mL) [facility] Comment on above: Order Comment: Notes :1. Screening results should be considered presumptive unless the presence of the analyte has been confirmed by a reference lab2. All drug groups are analyzed on urine specimens Performed By: #### L [id number], [id number], [id number] #### [facility] [address] [place] [address] [facility] Cocaine Ql (U) Not detected Normal Not Detected (Cutoff <300 ng/mL) [facility] Comment on above: Order Comment: Notes :1. Screening results should be considered presumptive unless the presence of the analyte has been confirmed by a reference lab2. All drug groups are analyzed on urine specimens Performed By: #### L [id number], [id number], [id number] #### [facility] [address] [place] [address] FENTANYL Not detected Normal Not Detected (Cutoff 1.0 ng/mL) [facility] Comment on above: Order Comment: Notes :1. Screening results should be considered presumptive unless the presence of the analyte has been confirmed by a reference lab2. All drug groups are analyzed on urine specimens Performed By: #### L [id number], [id number], [id number] #### [facility] [address] [place] [address] MARIJUANA/THC Not detected Normal Not Detected (Cutoff <50 ng/mL) [facility] Comment on above: Order Comment: Notes :1. Screening results should be considered presumptive unless the presence of the analyte has been confirmed by a reference lab2. All drug groups are analyzed on urine specimens Performed By: #### L [id number], [id number], [id number] #### [address] OPIATES Not detected Normal Not Detected (Cutoff <300 ng/mL) [facility] Comment on above: Order Comment: Notes :1. Screening results should be considered presumptive unless the presence of the analyte has been confirmed by a reference lab2. All drug groups are analyzed on urine specimens Performed By: #### L [id number], [id number], [id number] #### [facility] [address] [place] [address] PCP Not detected Normal Not Detected (Cutoff <25 ng/mL) [facility] Comment on above: Order Comment: Notes :1. Screening results should be considered presumptive unless the presence of the analyte has been confirmed by a reference lab2. All drug groups are analyzed on urine specimens Performed By: #### L [id number], [id number], [id number] #### [facility] [address] [place] [address] Toxicology screen, urineon 1 07-14-2021 Amphetamines Ql (U) Not detected Not Dete cted (Cutoff <1000 ng/mL) [facility] Barbiturates [Mass/Vol] Not detected Not Detected (Cutoff <200 ng/mL) [facility] Benzodiazepines Screen [Mass/Vol] Not detected Not Detected (Cutoff <200 ng/mL) [facility] Cannabinoids tested Screen Nom (U) Not detected Not Detected (Cutoff <50 ng/mL) [facility] CMV IgM IF Ql Not detected Not Detected (Cutoff <300 ng/mL) [facility] Felbamate [Mass/Vol] Not detected Not Det ected (Cutoff 1.0 ng/mL) [facility] Interpretation and review of laboratory results Normal [facility] Opiates tested Screen Nom (U) Not detected Not Detected (Cutoff <300 ng/mL) [facility] Phencyclidine (U) [Mass/Vol] Not detected Not Detected (Cutoff <25 ng/mL) [facility] Notes: 1. Screening results should be considered presumptive unless the presence of the analyte has been confirmed by a reference lab 2. All drug groups are analyzed on urine specimens [facility] URINALYSIS WITH REFLEX CULTU REon 05-14-2022 Appearance (U) Clear Normal [facility] Comment on above: Performed By: #### 4 [id number] #### [address] BILIRUBIN UA Negative Normal Negative [facility] Comment on above: Performed By: #### 4 [id number] #### [address] Color (U) Yellow Normal [facility] Comment on above: Performed By: #### 4 [id number] #### [address] [address] [place] Glucose Ql (U) Negative Normal Negative [facility] Comment on above: Performed By: #### 4 [id number] #### [address] [address] [place] Ketones Ql (U) Negative Normal Negative [facility] Comment on above: Performed By: #### 4 [id number] #### [address] [address] [place] LEUKOESTERASE Negative Normal Negative [facility] Comment on above: Performed By: #### 4 [id number] #### [address] [address] [place] Nitrite Ql (U) Negative Normal Negative [facility] Comment on above: Performed By: #### 4 [id number] #### [address] OCCULT BLD Negative Normal Negative [facility] Comment on above: Performed By: #### 4 [id number] #### [address] PH, URINE 7.0 Normal [facility] Comment on above: Performed By: #### 4 [id number] #### [address] Protein Ql (U) Negative Normal Negative [facility] Comment on above: Performed By: #### 4 [id number] #### [address] RBC LM.HPF (Urine sed) [#/Area] /[HPF] Normal <=5 [facility] Comment on above: Performed By: #### 4 [id number] #### [address] SPECIFIC GRAVITY, URINE 1.004 Normal G [facility] Comment on above: Performed By: #### 4 [id number] #### [address] UROBILINOGEN UA Negative Normal <2.0 [facility] Comment on above: Performed By: #### 4 [id number] #### [address] WBC LM.HPF (Urine sed) [#/Area] 3 /[HPF] Normal <=5 [facility] Comment on above: Performed By: #### 4 [id number] #### [address] Urinalysis complete W Reflex Culture panel (U)on 05-14-2022 Acetone [Mass/Vol] Negative Negative [facility] Appearance (Body fld) Clear [facility] Bilirubin Ql (U) Negative Negative [facility] Color (Stone) Yellow [facility] G6PD (RBC) [Catalytic activity/Vol] Negative Negative [facility] Hemoglobin Ql (U) NINF [facility] Hemoglobin.gastrointest inal (Stl) [Mass/Mass] Negative Negative [facility] Leukocyte esterase Test strip Ql (U) Negative Negative [facility] Nitrite Test strip (U) [Mass/Vol] Negative Negative [facility] pH (Rhina fld) 7.0 [facility] Protein (U) [Mass/Vol] Negative Negative [facility] Specific gravity (U) [Rel density] 1.004 [facility] Urobilinogen Qn (U) Negative NINF - 2.0 [facility] WBC (U) [#/Vol] 3 /uL NINF [facility] US DUPLEX VENOUS LEGS BILALFONSO Lucas 05-05-2022 US DUPLEX VENOUS LEGS BILATERAL Patient Info Name: RIGO GARCIA Age: 52 years : 1970 Gender: Male Exam Date: 05/04/2022 8:32 PM Patient Status: Emergency Repairer Kiln Car: Holly Abad RVT, RDCS Attending Physician: DAVID JI Indications R22.43 - Localized swelling, mass and lump, lower limb, bilateral Procedure Description 84078 Duplex examination using B-mode, color and spectral Doppler of extremity veins including responses to compression and other maneuvers; complete bilateral study. Conclusions * No evidence of deep or superficial vein thrombosis in the right or left lower extremities. . Report Signatures Finalized by Brittani Heredia DO, RVT, RPVI FSVM on 05/05/2022 09:30 AM [facility] US DUPLEX VENOUS LEGS BILATE Shayy 05-04-2022 US DUPLEX VENOUS LEGS BILATERAL Patient Info Name: RIGO GARCIA Age: 52 years : 1970 Gender: Male Exam Date: 05/04/2022 8:32 PM Patient Status: Emergency Repairer Kiln Car: Holly Abad RVT, RDCS Attending Physician: DAVID JI Indications R22.43 - Localized swelling, mass and lump, lower limb, bilateral Procedure Description 05459 Duplex examination using B-mode, color and spectral [...] WedMay 05, 2022 9:31:05 AM EST Normal [facility] XR CHEST PA/APon 05-04-2022 XR CHEST PA/AP [...] cardiopulmonary process based on AP image alone. [employer] Workstation ID: [id number] Dictated by: LAURA DONAHUE on WedMay 04, 2022 9:11:28 PM EST Transcribed by: ANITA TUCKER on WedMay 04, 2022 9:13:44 PM EST Finalized by: LAURA DONAHUE on WedMay 04, 2022 10:19:49 PM EST Normal [facility] Comment on above: Order Comment: Injur y/Trauma or Illness?:Illness/Other How long have you had these symptoms (acute/chronic)?:Acute Reason for exam?:cough History of cancer?:n Surgeries, chemotherapy, or radiation?:n Type of Exam?:Initial Additional signs and symptoms?: COVID-19, MOLECULARon 2021 SARS-CoV-2 (COVID-19) RNA DALIA+probe Ql (Unsp spec) Not detected Normal Not Detected [facility] Comment on above: Order Comment: This test [...] at the following links: For Healthcare Providers: https://www.fda.gov/media/514460/download For Patients: https://www.fda.gov/media/340372/download Performed By: #### L [id number] #### [facility] [address] [place] [address] Jamar Remy M.D. [id number] XR MODIFIED BARIUM SWALLOWon 02-19-2022 XR MODIFIED BARIUM SWALLOW EXAMINATION: XR MODIFIED BARIUM SWALLOW HISTORY: dysphagia Dx: R41.82 (Altered mental status, unspecified altered mental status type) Injury/Trauma or Illness?:Illness/Ot her How long have you had these symptoms (acute/chronic)?:Ac [place] CONTRAST: BARIUM SULFATE 40 % (W/V), 30% [...] WedFeb 20, 2022 6:54:23 AM EDT Normal [facility] Comment on above: Order Comment: Injur y/Trauma or Illness?:Illness/Other How long have you had these symptoms (acute/chronic)?:Acute Reason for exam?:dysphagia Type of Exam?:Ongoing Additional signs and symptoms?: Fluoro time in minutes:1.7 Fluoro dose in mGy?:8.54 COVID-19, MOLECULARon 2021 SARS-CoV-2 (COVID-19) RNA DALIA+probe Ql (Unsp spec) Not detected Normal Not Detected [facility] Comment on above: Order Comment: This test [...] at the following links: For Healthcare Providers: https://www.fda.gov/media/192970/download For Patients: https://www.fda.gov/media/590790/download Performed By: #### L [id number] #### [facility] [address] [place] [address] Jamar Remy M.D. [id number] XR FOR MRI CLEARANCEon 02-17 XR FOR [...] WedFeb 17, 2022 9:54:36 AM EDT Normal [facility] Comment on above: Order Comment: MRI C [...] No acute findings. No hemorrhage. No mass. [facility] Workstation ID: [id number] Dictated by: MOOSE OROZCO on WedFeb 16, 2022 3:34:33 PM EDT Transcribed by: ALPESH MEYERS on WedFeb 16, 2022 3:46:44 PM EDT Finalized by: MOOSE OROZCO on WedFeb 16, 2022 10:32:15 PM EDT [facility] Comment on above: Order Comment: Injur [...] clear. Central intracranial flow voids of the [place] are visualized, implying that the [...] WedFeb 17, 2022 2:59:50 PM EDT Normal [facility] Comment on above: Order Comment: Injur y/Trauma [...] on WedFeb 16, 2022 4:07:11 PM EDT [facility] Comment on above: Order Comment: Injur y/Trauma or Illness?:Illness/Other How long have you had these symptoms (acute/chronic)?:Acute Reason for exam?:ams History of cancer?:n Surgeries, chemotherapy, or radiation?:n Type of Exam?:Initial Additional signs and symptoms?: Basic metabolic 2000 panelon 02-11-2022 Anion gap [Moles/Vol] 10 mmol/L Normal 6-[address] [facility] Comment on above: Performed By: #### 2 4321-2 #### [facility] [place] [facility] [address] [place] [address] Calcium [Mass/Vol] 10.4 mg/dL High 8.9-10.3 [facility] Comment on above: Performed By: #### 2 4321-2 #### [facility] [place] [facility] [address] [place] [address] Chloride [Moles/Vol] 108 mmol/L High 98-107 [facility] Comment on above: Performed By: #### 2 4321-2 #### [facility] [place] [facility] [address] [place] [address] CO2 [Moles/Vol] 27 mmol/L Normal 22-32 [facility] Comment on above: Performed By: #### 2 4321-2 #### [facility] [place] [facility] [address] [place] [address] Creatinine [Mass/Vol] 1.28 mg/dL Normal 0.60-1.[address] [facility] Comment on above: Performed By: #### 2 4321-2 #### [facility] [place] [facility] [address] [place] [address] GFR/1.73 sq M.predicted among non-blacks MDRD (S/P/Bld) [Vol rate/Area] 64 mL/min/{1.73_m2} Normal >=60 [facility] Comment on above: Performed By: #### 2 4321-2 #### [facility] [place] [facility] [address] [place] [address] Glucose [Mass/Vol] 165 mg/dL High 70-99 [facility] Comment on above: Performed By: #### 2 4321-2 #### [facility] [place] [facility] [address] [place] [address] Potassium [Moles/Vol] 4.1 mmol/L Normal 3.6-5.[address] [facility] Comment on above: Performed By: #### 2 4321-2 #### [facility] [place] [facility] [address] [place] [address] Sodium [Moles/Vol] 145 mmol/L Normal 136-145 [facility] Comment on above: Performed By: #### 2 4321-2 #### [facility] [place] [facility] [address] [place] [address] Urea nitrogen [Mass/Vol] 19 mg/dL Normal 8-20 [facility] Comment on above: Performed By: #### 2 4321-2 #### [facility] [place] [facility] [address] [place] [address] Urea nitrogen/Creatinine [Mass ratio] 14.8 mg/mg Normal 12.0-20.0 [facility] Comment on above: Performed By: #### 2 4321-2 #### [facility] [place] [facility] [address] [place] [address] Hemogram and platelets WO di fferential panel (Bld)on 02-11-2022 Basophils (Bld) [#/Vol] 0.10 10*3/uL Normal 0.00-0.20 [facility] Comment on above: Performed By: #### 2 4317-0 #### [facility] [place] [facility] [address] [place] [address] Basophils/100 WBC (Bld) 0.5 % Normal 0.0-2.0 [facility] Comment on above: Performed By: #### 2 4316-0 #### [facility] [place] [facility] [address] [place] [address] Eosinophils (Bld) [#/Vol] 0.20 10*3/uL Normal 0.00-0.70 [facility] Comment on above: Performed By: #### 2 4316-0 #### [facility] [place] [facility] [address] [place] [address] Eosinophils/100 WBC (Bld) 1.9 % Normal 0.0-7.0 [facility] Comment on above: Performed By: #### 2 4316-0 #### [facility] ([facility]) [facility] [address] [place] [address] Erythrocyte distribution width (RBC) [Ratio] 14.5 % Normal 11.0-14.8 [facility] Comment on above: Performed By: #### 2 4316-0 #### [facility] ([facility]) [address] [address] Hematocrit (Bld) [Volume fraction] 49.6 % High 39.0-49.0 [facility] Comment on above: Performed By: #### 2 7-0 #### [facility] ([facility]) [facility] [address] [place] [address] Hemoglobin (Bld) [Mass/Vol] 15.6 g/dL Normal 13.5-17.5 [facility] Comment on above: Performed By: #### 2 7-0 #### [facility] ([facility]) [facility] [address] [place] [address] Lymphocytes (Bld) [#/Vol] 1.50 10*3/uL Normal 1.00-4.80 [facility] Comment on above: Performed By: #### 2 7-0 #### [facility] [address] [place] [address] Lymphocytes/100 WBC (Bld) 13.1 % Low 22.0-44.0 [facility] Comment on above: Performed By: #### 2 4317-0 #### [facility] [place] [facility] [address] [place] [address] MCH 29.0 pcg Normal 27.0-34.0 [facility] Comment on above: Performed By: #### 2 7-0 #### [facility] [place] [facility] [address] [place] [address] MCHC (RBC) [Mass/Vol] 31.4 g/dL Low 32.0-36.[address] [facility] Comment on above: Performed By: #### 2 7-0 #### [facility] [place] [facility] [address] [place] [address] MCV (RBC) [Entitic vol] 92.5 fL Normal 80.0-97.0 M [facility] Comment on above: Performed By: #### 2 7-0 #### [facility] [place] [facility] [address] [place] [address] Monocytes (Bld) [#/Vol] 0.60 10*3/uL Normal 0.00-0.90 [facility] Comment on above: Performed By: #### 2 7-0 #### [facility] [place] [facility] [address] [place] [address] Monocytes/100 WBC (Bld) 5.4 % Normal 0.0-12.0 M [facility] Comment on above: Performed By: #### 2 7-0 #### [facility] [address] [place] [address] Neutrophils Absolute 9.00 K/mcL High 1.80-7.70 [facility] Comment on above: Performed By: #### 2 7-0 #### [facility] [address] [place] [address] Neutrophils/100 WBC (Bld) 79.1 % High 40.0-70.0 [facility] Comment on above: Performed By: #### 2 4317-0 #### [facility] [place] [facility] [address] [place] [address] Platelet mean volume (Bld) [Entitic vol] 9.5 fL Normal 6.2-12.1 [facility] Comment on above: Performed By: #### 2 4317-0 #### [facility] [address] [place] [address] Platelets (Bld) [#/Vol] 206 10*3/uL Normal 142-424 [facility] Comment on above: Performed By: #### 2 4317-0 #### [facility] [place] [facility] [address] [place] [address] RBC (Bld) [#/Vol] 5.36 10*6/uL Normal 4.30-5.70 [facility] Comment on above: Performed By: #### 2 4317-0 #### [facility] [place] [facility] [address] [place] [address] WBC (Bld) [#/Vol] 11.4 10*3/uL High 4.6-10.2 [facility] Comment on above: Performed By: #### 2 4317-0 #### [facility] [place] [facility] [address] [place] [address] Acetaminophen LevelOrdered B y: Joon Atkinson on 12-12-2020 Acetaminophen [Mass/Vol] ug/mL [facility] Alcohol, MedicalOrdered By: Joon Atkinson on 12-12-2020 Ethanol [Mass/Vol] mg/dL <10.0 mg/dL [facility] Comment on above: Alcohol cutoff: <10. 00 mg/dL = None Detected CBC WITH AUTO DIFFERENTIALOr dered By: Joon Atkinson on 12-12-2020 Basophils (Bld) [#/Vol] 0.03 10*3/uL [facility] Basophils/100 WBC (Bld) 0.3 % [facility] Eosinophils (Bld) [#/Vol] 0.32 10*3/uL [facility] Eosinophils/100 WBC (Bld) 3.6 % [facility] Erythrocyte distribution width (RBC) [Entitic vol] 14.6 % 11.6 - 14.8 % [facility] Hematocrit (Bld) [Volume fraction] 42.0 % 41.0 - 53.0 % [facility] Hemoglobin (Bld) [Mass/Vol] 12.8 g/dL Low 13.5 - 17.5 g/dL [facility] Immature granulocytes (Bld) [#/Vol] 0.02 10*3/uL [facility] Immature granulocytes/100 WBC (Bld) 0.20 % [facility] Comment on above: The IG parameter is the percentage of metamyelocytes, myelocytes and promyelocytes. An immature granulocyte count (IG) of 1% or more suggests the possibility of infection, an IG count of 3% is very likely related to an infection. Interpretation and review of laboratory results Abnormal [facility] Lymphocytes (Bld) [#/Vol] 2.23 10*3/uL [facility] Lymphocytes/100 WBC (Bld) 24.9 % [facility] MCH (RBC) [Entitic mass] 28.1 pg 26.0 - 34.0 pg [facility] MCHC (RBC) [Mass/Vol] 30.5 g/dL Low 31.0 - 37.0 g/dL [facility] MCV (RBC) [Entitic vol] 92.1 fL 80.0 - 100.0 fL [facility] Monocytes (Bld) [#/Vol] 0.86 10*3/uL [facility] Monocytes/100 WBC (Bld) 9.6 % [facility] Neutrophils (Bld) [#/Vol] 5.49 10*3/uL [facility] Neutrophils/100 WBC (Bld) 61.4 % [facility] Nucleated RBC (Bld) [#/Vol] 0.00 10*3/uL [facility] Nucleated RBC/100 WBC (Bld) [Ratio] 0.0 % [facility] Platelet mean volume (Bld) [Entitic vol] 10.0 fL 9.4 - 12.4 fL [facility] Platelets (Bld) [#/Vol] 219 10*3/uL [facility] RBC (Bld) [#/Vol] 4.56 10*6/uL [facility] WBC (Bld) [#/Vol] 8.95 10*3/uL [facility] Comprehensive metabolic 2000 panelOrdered By: Joon Atkinson on 12-12-2020 Albumin [Mass/Vol] 4.3 g/dL 3.2 - 5.2 g/dL [facility] ALP [Catalytic activity/Vol] 140 U/L 40 - 150 U/L [facility] ALT [Catalytic activity/Vol] 10 U/L 0 - 40 U/L [facility] Anion gap [Moles/Vol] 14 mmol/L 10 - 2 0 mmol/L [facility] AST [Catalytic activity/Vol] 18 U/L 0 - 45 U/L [facility] Comment on above: Slightly Hemolyzed Bilirubin [Mass/Vol] mg/dL 0.0 - 1 .3 mg/dL [facility] Calcium [Mass/Vol] 9.5 mg/dL 8.4 - 10. 2 mg/dL [facility] Chloride [Moles/Vol] 102 mmol/L 98 - 10 8 mmol/L [facility] Creatinine [Mass/Vol] 1.02 mg/dL 0.50 - 1.30 [facility] GFR/1.73 sq M.predicted CKD-EPI (S/P/Bld) [Vol rate/Area] 99 >=60 mL/min/1.73 m2 [facility] Glucose [Mass/Vol] 98 mg/dL 65 - 99 mg/dL [facility] HCO3 [Moles/Vol] 29 mmol/L 21 - 32 mmol/L [facility] Interpretation and review of laboratory results Normal [facility] Potassium [Moles/Vol] 4.0 mmol/L 3.5 - 5.1 mmol/L [facility] Protein [Mass/Vol] 6.8 g/dL 6.0 - 8.0 g/dL [facility] Sodium [Moles/Vol] 141 mmol/L 135 - 145 mmol/L [facility] Urea nitrogen [Mass/Vol] 11 mg/dL 8 - 25 mg/dL [facility] Urea nitrogen/Creatinine [Mass ratio] 10.8 mg/mg [facility] The eGFR should be used for monitoring renal function only and not for medication dosing. [facility] GGTOrdered By: Joon Atkinson on 12-12-2020 Gamma glutamyl transferase [Catalytic activity/Vol] 24 U/L 11 - 51 U/L [facility] Mitchell TopOrdered By: Joon holly on 12-12-2020 Extra Tube Hold for add-ons. [facility] Comment on above: Auto resulted. [employer] LevelOrdered By: Ganesh Atkinson on 12-12-2020 [employer] [Moles/Vol] 0.6 mmol/L 0.6 - 1. 2 mmol/L [facility] [employer] [Moles/Vol]Ordered B y: Joon Atkinson on 12-12-2020 Interpretation and review of laboratory results Normal [facility] No Panel InformationOrdered By: Joon Atkinson on 12-12-2020 [facility] Interpretation and review of laboratory results Normal [facility] Interpretation and review of laboratory results Normal [facility] Salicylate LevelOrdered By: Joon Atkinson on 12-12-2020 Salicylates [Mass/Vol] mg/dL Low 10.0 - 20.0 mg/dL [facility] Salicylates [Mass/Vol]Ordere d By: Joon Atkinson on 12-12-2020 Interpretation and review of laboratory results Abnormal [facility] TSH DL <= 0.005 mIU/L QnOrde red By: Joon Atkinson on 12-12-2020 TSH Qn 1.02 m[IU]/L [facility] VALPROIC ACID/DEPAKOTEon VALPROIC ACID/DEPAKOTE <10 Low 50-100 [facility] Comment on above: Result Comment: Resu lts reported at less than analytical measurment of instr ument. Performed By: #### C BC #### [facility] [place], [place] [address] Alcohol, Medicalon 0 Ethanol [Mass/Vol] mg/dL <10.0 mg/dL [facility] Comment on above: Alcohol cutoff: <10. 00 mg/dL = None Detected Basic Metabolic Panelon - Anion gap [Moles/Vol] 10 mmol/L 10 - 2 0 mmol/L [facility] Calcium [Mass/Vol] 9.7 mg/dL 8.4 - 10. 2 mg/dL [facility] Chloride [Moles/Vol] 102 mmol/L 98 - 10 8 mmol/L [facility] Creatinine [Mass/Vol] 1.12 mg/dL 0.50 - 1.30 [facility] GFR/1.73 sq M predicted among non-blacks MDRD (S/P/Bld) [Vol rate/Area] The eGFR should be used for monitoring renal function only and not for medication dosing. [facility] GFR/1.73 sq M.predicted CKD-EPI (S/P/Bld) [Vol rate/Area] 88 >=60 mL/min/1.73 m2 [facility] Glucose [Mass/Vol] 84 mg/dL 65 - 99 mg/dL [facility] HCO3 [Moles/Vol] 29 mmol/L 21 - 32 mmol/L [facility] Interpretation and review of laboratory results Abnormal [facility] Potassium [Moles/Vol] 4.2 mmol/L 3.5 - 5.1 mmol/L [facility] Sodium [Moles/Vol] 137 mmol/L 135 - 145 mmol/L [facility] Urea nitrogen [Mass/Vol] 8 mg/dL 8 - 25 mg/dL [facility] Urea nitrogen/Creatinine [Mass ratio] 7.1 mg/mg Low [facility] CBC WITH AUTO DIFFERENTIALon 06-20-2020 Basophils (Bld) [#/Vol] 0.05 10*3/uL [facility] Basophils/100 WBC (Bld) 0.4 % [facility] Eosinophils (Bld) [#/Vol] 0.34 10*3/uL [facility] Eosinophils/100 WBC (Bld) 2.9 % [facility] Erythrocyte distribution width (RBC) [Entitic vol] 14.6 % 11.6 - 14.8 % [facility] Hematocrit (Bld) [Volume fraction] 47.3 % 41 - 53 % [facility] Hemoglobin (Bld) [Mass/Vol] 14.4 g/dL 13.5 - 17.5 g/dL [facility] Immature granulocytes (Bld) [#/Vol] 0.05 10*3/uL [facility] Immature granulocytes/100 WBC (Bld) 0.40 % [facility] Comment on above: The IG parameter is the percentage of metamyelocytes, myelocytes and promyelocytes. An immature granulocyte count (IG) of 1% or more suggests the possibility of infection, an IG count of 3% is very likely related to an infection. Interpretation and review of laboratory results Abnormal [facility] Lymphocytes (Bld) [#/Vol] 2.03 10*3/uL [facility] Lymphocytes/100 WBC (Bld) 17.2 % [facility] MCH (RBC) [Entitic mass] 28.1 pg 26 - 34 pg [facility] MCHC (RBC) [Mass/Vol] 30.4 g/dL Low 31 - 37 g/dL [facility] MCV (RBC) [Entitic vol] 92.2 fL 80 - 100 fL [facility] Monocytes (Bld) [#/Vol] 0.85 10*3/uL [facility] Monocytes/100 WBC (Bld) 7.2 % [facility] Neutrophils (Bld) [#/Vol] 8.45 10*3/uL High [facility] Neutrophils/100 WBC (Bld) 71.9 % [facility] Nucleated RBC (Bld) [#/Vol] 0.00 10*3/uL [facility] Nucleated RBC/100 WBC (Bld) [Ratio] 0.0 % [facility] Platelet mean volume (Bld) [Entitic vol] 9.8 fL 9.4 - 12.4 fL [facility] Platelets (Bld) [#/Vol] 241 10*3/uL [facility] RBC (Bld) [#/Vol] 5.13 10*6/uL [facility]alth WBC (Bld) [#/Vol] 11.77 10*3/uL [facility] DRUGS OF ABUSE SCREEN, URINE on 06-20-2020 Amphetamines Ql (U) None Detected None Detected [facility] Comment on above: Urine Amphetamine Cu toff: < 1000 ng/mL = None Detected Barbiturates Screen Ql (U) None Detected None Detected [facility] Comment on above: Urine Barbiturates C utoff: < 200 ng/mL = None Detected Benzodiazepines Ql (U) None Detected None Detec terry [facility] Comment on above: Urine Benzodiazepine Cutoff: < 200 ng/mL = None Detected Buprenorphine Ql (U) None Detected None Detecte d [facility] Comment on above: Urine Buprenorphine Cutoff: < 5 ng/mL = None Detected Cannabinoids Screen Ql (U) None Detected None Detected [facility] Comment on above: Urine Cannabinoids C utoff: < 50 ng/mL = None Detected Cocaine Ql (U) None Detected None Detected [facility] Comment on above: Urine Cocaine Cutoff : < 300 ng/mL = None Detected Fentanyl+Norfentanyl Screen Ql (U) None Detected None Detected [facility] Comment on above: Urine Fentanyl Cutof f: < 1 ng/mL = None Detected Interpretation and review of laboratory results Normal [facility] Methadone Screen Ql (U) None Detected None Dete cted [facility] Comment on above: Urine Methadone Cuto ff: < 300 ng/mL = None Detected Opiates Screen Ql (U) None Detected None Detect ed [facility] Comment on above: Urine Opiates Cutoff : < 300 ng/mL = None Detected Oxycodone Ql (U) None Detected None Detected [facility] Comment on above: Urine Oxycodone Cuto ff: < 100 ng/mL = None Detected Screen results should be used for treatment purposes only. [facility] Hepatic Function Panelon Albumin [Mass/Vol] 4.2 g/dL 3.2 - 5.2 g/dL [facility] ALP [Catalytic activity/Vol] 140 U/L 40 - 150 U/L [facility] ALT [Catalytic activity/Vol] 10 U/L 0 - 40 U/L [facility] AST [Catalytic activity/Vol] 11 U/L 0 - 45 U/L [facility] Bilirubin [Mass/Vol] mg/dL 0 - 1.3 mg/dL [facility] Bilirubin.conjugated [Mass/Vol] mg/dL 0 - 0.4 mg/dL [facility] Interpretation and review of laboratory results Normal [facility] Protein [Mass/Vol] 6.8 g/dL 6 - 8 g/dL [facility] [place] [facility] alth [employer] Levelon 06-20-2020 [employer] [Moles/Vol] 1.2 mmol/L 0.6 - 1. 2 mmol/L [facility] Otheron 06-20-2020 Extra Tube Hold for add-ons. [facility] Comment on above: Auto resulted. Interpretation and review of laboratory results Normal [facility] TSH with Reflex Free T4on Interpretation and review of laboratory results Normal [facility] TSH Qn 1.01 m[IU]/L [facility] BASIC METABOLIC PANELon 05-28 Anion gap [Moles/Vol] 4 mmol/L Low 8-16 [facility] Comment on above: Performed By: #### M ETA #### [facility] [address] [place], [place] [address] Calcium [Mass/Vol] 9.1 mg/dL Normal 8.5-10.5 [facility] Comment on above: Performed By: #### M ETA #### [facility] [address] [facility] [place], [place] [address] Chloride [Moles/Vol] 108 mmol/L High 99-107 [facility] [facility] Comment on above: Performed By: #### M ETA #### [facility] [address] [facility] [place] [address] CO2 [Moles/Vol] 30 mmol/L Normal 21-31 [facility] Comment on above: Performed By: #### M ETA #### [facility] [address] [facility] [place] [address] Creatinine [Mass/Vol] 0.93 mg/dL Normal 0.60-1.30 [facility] Comment on above: Performed By: #### M ETA #### [facility] [address] [facility] [place] [address] EGFRAA 104 mL/min/1.73m2 Normal [facility] Comment on above: Result Comment: GFR Ranges: Stage GFR Level Description 1 90mL/min or more Normal 2 60-89 mL/min Mild Decrease 3 30-59 mL/min Moderate Decrease 4 15-29 mL/min Severe Decrease 5 <15 mL/min Kidney Failure Performed By: #### M ETA #### [facility] [address] [facility] [place] [address] GFR/1.73 sq M.predicted MDRD (S/P/Bld) [Vol rate/Area] 86 mL/min/{1.73_m2} Normal [facility] Comment on above: Result Comment: GFR RANGES STAGE GFR LEVEL DESCRIPTION 1 90 mL/min or more NORMAL 2 60-89 mL/min MILD DECREASE 3 30-59 mL/min MODERATE DECREASE 4 15-29 mL/min SEVERE DECREASE 5 < 15mL/min KIDNEY FAILURE Performed By: #### M ETA #### [facility] [address] [facility] [place] [address] Glucose [Mass/Vol] 77 mg/dL Normal 70-105 [facility] Comment on above: Performed By: #### M ETA #### [facility] [address] [place], [place] [address] Potassium [Moles/Vol] 3.9 mmol/L Normal 3.5-5.3 [facility] Comment on above: Performed By: #### M ETA #### [facility] [address] [place], [place] [address] Sodium [Moles/Vol] 142 mmol/L Normal 135-145 [facility] Comment on above: Performed By: #### M ETA #### [facility] [address] [place] [address] Urea nitrogen [Mass/Vol] 7.0 mg/dL Normal 7.0-25.0 [facility] Comment on above: Performed By: #### M ETA #### [facility] [address] [place], [place] [address] Urea nitrogen/Creatinine [Mass ratio] 8.0 Ratio Normal 6.0-22.0 [facility] Comment on above: Performed By: #### M ETA #### [facility] [address] [place], [place] [address] CBC, AUTO DIFFon 06-07-2020 Basophils (Bld) [#/Vol] 0.0 x10 3/uL Normal 0.0-0.2 [facility] Comment on above: Performed By: #### C BC #### [facility] [address] [place], [place] [address] Basophils/100 WBC (Bld) 0.4 % Normal 0.0-2.0 [facility] Comment on above: Performed By: #### C BC #### [facility] [address] [facility] [place], [place] [address] Eosinophils (Bld) [#/Vol] 0.3 x10 3/uL Normal 0.0-0.7 [facility] Comment on above: Performed By: #### C BC #### [facility] [address] [place], [place] [address] Eosinophils/100 WBC (Bld) 3.3 % Normal 0.0-7.0 [facility] Comment on above: Performed By: #### C BC #### [facility] [address] [place] [address] Erythrocyte distribution width (RBC) [Ratio] 14.7 % Normal 11.0-14.8 [facility] Comment on above: Performed By: #### C BC #### [facility] [address] [place] [address] Hematocrit (Bld) [Volume fraction] 40 % Normal 39-49 [facility] Comment on above: Performed By: #### C BC #### [facility] [address] [place] [address] Hemoglobin (Bld) [Mass/Vol] 12.8 g/dL Low 13.5-17.5 [facility] Comment on above: Performed By: #### C BC #### [facility] [address] [place] [address] Lymphocytes (Bld) [#/Vol] 2.1 x10 3/uL Normal 1.0-4.8 [facility] Comment on above: Performed By: #### C BC #### [facility] [address] [place] [address] Lymphocytes/100 WBC (Bld) 21.7 % Low 22.0-44.0 [facility] Comment on above: Performed By: #### C BC #### [facility] [address] [place], [place] [address] MANUAL DIFFERENTIAL No Normal * [facility] Comment on above: Performed By: #### C BC #### [facility] [address] [place] [address] MCH (RBC) [Entitic mass] 28.2 pg Normal 27.0-34.0 [facility] Comment on above: Performed By: #### C BC #### [facility] [address] [place] [address] MCHC (RBC) [Mass/Vol] 32.4 g/dL Normal 32.0-36.6 [facility] Comment on above: Performed By: #### C BC #### [facility] [address] [place] [address] MCV (RBC) [Entitic vol] 87 fL Normal 76-90 [facility] Comment on above: Performed By: #### C BC #### [facility] [address] [place] [address] Monocytes (Bld) [#/Vol] 0.7 x10 3/uL Normal 0.0-0.9 [facility] Comment on above: Performed By: #### C BC #### [facility] [address] [place] [address] Monocytes/100 WBC (Bld) 7.5 % Normal 0.0-12.0 [facility] Comment on above: Performed By: #### C BC #### [facility] [address] [place] [address] Neutrophils (Bld) [#/Vol] 6.4 x10 3/uL Normal 1.8-7.7 [facility] Comment on above: Performed By: #### C BC #### [facility] [address] [place], [place] [address] Neutrophils/100 WBC (Bld) 67.1 % Normal 40.0-70.0 [facility] Comment on above: Performed By: #### C BC #### [facility] [address] [place] [address] Platelets (Bld) [#/Vol] 212 x10 3/uL Normal 142-424 [facility] Comment on above: Performed By: #### C BC #### [facility] [address] [place] [address] RBC (Bld) [#/Vol] 4.5 x10 6/uL Normal 3.9-5.2 [facility] Comment on above: Performed By: #### C BC #### [facility] [address] [place] [address] WBC (Bld) [#/Vol] 9.6 x10 3/uL Normal 4.6-10.2 [facility] Comment on above: Performed By: #### C BC #### [facility] [address] [place] [address] Acetaminophen Levelon 2019 Acetaminophen [Mass/Vol] <5.0 [facility] Alcohol, Medicalon 0 Ethanol [Mass/Vol] mg/dL <10.0 mg/dL [facility] Comment on above: Alcohol cutoff: <10. 00 mg/dL = None Detected CBC WITH AUTO DIFFERENTIALon 04-04-2020 Basophils (Bld) [#/Vol] 0.03 10*3/uL [facility] Basophils/100 WBC (Bld) 0.3 % [facility] Eosinophils (Bld) [#/Vol] 0.20 10*3/uL [facility] Eosinophils/100 WBC (Bld) 2.2 % [facility] Erythrocyte distribution width (RBC) [Entitic vol] 13.8 % 11.6 - 14.8 % [facility] Hematocrit (Bld) [Volume fraction] 43.9 % 41 - 53 % [facility] Hemoglobin (Bld) [Mass/Vol] 13.1 g/dL Low 13.5 - 17.5 g/dL [facility] Immature granulocytes (Bld) [#/Vol] 0.02 10*3/uL [facility] Immature granulocytes/100 WBC (Bld) 0.20 % [facility] Comment on above: The IG parameter is the percentage of metamyelocytes, myelocytes and promyelocytes. An immature granulocyte count (IG) of 1% or more suggests the possibility of infection, an IG count of 3% is very likely related to an infection. Interpretation and review of laboratory results Abnormal [facility] Lymphocytes (Bld) [#/Vol] 1.96 10*3/uL [facility] Lymphocytes/100 WBC (Bld) 21.7 % [facility] MCH (RBC) [Entitic mass] 28.4 pg 26 - 34 pg [facility] MCHC (RBC) [Mass/Vol] 29.8 g/dL Low 31 - 37 g/dL [facility] MCV (RBC) [Entitic vol] 95.2 fL 80 - 100 fL [facility] Monocytes (Bld) [#/Vol] 0.70 10*3/uL [facility] Monocytes/100 WBC (Bld) 7.7 % [facility] Neutrophils (Bld) [#/Vol] 6.14 10*3/uL [facility] Neutrophils/100 WBC (Bld) 67.9 % [facility] Nucleated RBC (Bld) [#/Vol] 0.00 10*3/uL [facility] Nucleated RBC/100 WBC (Bld) [Ratio] 0.0 % [facility] Platelet mean volume (Bld) [Entitic vol] 9.6 fL 9.4 - 12.4 fL [facility] Platelets (Bld) [#/Vol] 210 10*3/uL [facility] RBC (Bld) [#/Vol] 4.61 10*6/uL [facility] WBC (Bld) [#/Vol] 9.05 10*3/uL [facility] Comprehensive Metabolic Pane darlene 04-04-2020 Albumin [Mass/Vol] 3.6 g/dL 3.2 - 5.2 g/dL [facility] ALP [Catalytic activity/Vol] 135 U/L 40 - 150 U/L [facility] ALT [Catalytic activity/Vol] 9 U/L 0 - 40 U/L [facility] Anion gap [Moles/Vol] 12 mmol/L 10 - 2 0 mmol/L [facility] AST [Catalytic activity/Vol] 15 U/L 0 - 45 U/L [facility] Bilirubin [Mass/Vol] mg/dL 0 - 1.3 mg/dL [facility] Calcium [Mass/Vol] 9.2 mg/dL 8.4 - 10. 2 mg/dL [facility] Chloride [Moles/Vol] 106 mmol/L 98 - 10 8 mmol/L [facility] Creatinine [Mass/Vol] 0.70 mg/dL 0.50 - 1.30 [facility] GFR/1.73 sq M predicted among non-blacks MDRD (S/P/Bld) [Vol rate/Area] The eGFR should be used for monitoring renal function only and not for medication dosing. [facility] GFR/1.73 sq M.predicted CKD-EPI (S/P/Bld) [Vol rate/Area] 127 >=60 mL/min/1.73 m2 [facility] Glucose [Mass/Vol] 90 mg/dL 65 - 99 mg/dL [facility] HCO3 [Moles/Vol] 26 mmol/L 21 - 32 mmol/L [facility] Potassium [Moles/Vol] 4.0 mmol/L 3.5 - 5.1 mmol/L [facility] Protein [Mass/Vol] 5.9 g/dL Low 6 - 8 g/dL [facility] [place] [facility] alth Sodium [Moles/Vol] 140 mmol/L 135 - 145 mmol/L [facility] Urea nitrogen [Mass/Vol] 5 mg/dL Low 8 - 25 mg/dL [facility] Urea nitrogen/Creatinine [Mass ratio] 7.1 mg/mg Low [facility] DRUGS OF ABUSE SCREEN, URINE on 04-04-2020 Amphetamines Ql (U) None Detected None Detected [facility] Comment on above: Urine Amphetamine Cu toff: < 1000 ng/mL = None Detected Barbiturates Screen Ql (U) None Detected None Detected [facility] Comment on above: Urine Barbiturates C utoff: < 200 ng/mL = None Detected Benzodiazepines Ql (U) None Detected None Detec terry [facility] Comment on above: Urine Benzodiazepine Cutoff: < 200 ng/mL = None Detected Buprenorphine Ql (U) None Detected None Detecte d [facility] Comment on above: Urine Buprenorphine Cutoff: < 5 ng/mL = None Detected Cannabinoids Screen Ql (U) None Detected None Detected [facility] Comment on above: Urine Cannabinoids C utoff: < 50 ng/mL = None Detected Cocaine Ql (U) None Detected None Detected [facility] Comment on above: Urine Cocaine Cutoff : < 300 ng/mL = None Detected Fentanyl+Norfentanyl Screen Ql (U) None Detected None Detected [facility] Comment on above: Urine Fentanyl Cutof f: < 1 ng/mL = None Detected Interpretation and review of laboratory results Normal [facility] Methadone Screen Ql (U) None Detected None Dete cted [facility] Comment on above: Urine Methadone Cuto ff: < 300 ng/mL = None Detected Opiates Screen Ql (U) None Detected None Detect ed [facility] Comment on above: Urine Opiates Cutoff : < 300 ng/mL = None Detected Oxycodone Ql (U) None Detected None Detected [facility] Comment on above: Urine Oxycodone Cuto ff: < 100 ng/mL = None Detected Screen results should be used for treatment purposes only. [facility] Otheron 04-04-2020 Interpretation and review of laboratory results Normal [facility] Interpretation and review of laboratory results Abnormal [facility] Salicylate Levelon 0 Salicylates [Mass/Vol] mg/dL Low 10 - 20 mg/dL [facility] TSHon 04-04-2020 Interpretation and review of laboratory results Normal [facility] TSH Qn 1.06 m[IU]/L [facility] URINALYSISon 04-04-2020 Bacteria Auto Ql (U) None Seen None Se en /hpf [facility] Bilirubin Ql (U) Negative Negative [facility] th Clarity Refractometry automated (U) Clear Clear [facility] Color (U) Colorless Colorless, Yellow [facility] Glucose Auto test strip (U) [Mass/Vol] Negative Negative mg/dL [facility] Hemoglobin Auto test strip Ql (U) Negative Negative [facility] Interpretation and review of laboratory results Abnormal [facility] Ketones (U) [Mass/Vol] Negative Negat kyra mg/dL [facility] Leukocyte esterase Auto test strip Ql (U) Negative Negative [facility] Nitrite Auto test strip Ql (U) Negative Negative [facility] pH (U) 7.0 [pH] [facility] Protein (U) [Mass/Vol] Negative Negat kyra mg/dL [facility] RBC Auto (Urine sed) [#/Area] 2 [facility] Specific gravity (U) [Rel density] 1.003 Low [facility] Urobilinogen (U) [Mass/Vol] <2.0 <2.0 mg/dL [facility] WBC Auto (Urine sed) [#/Area] <1 [facility] Microscopic examination is performed on all urinalysis samples and only positive findings are reported. The test for blood on the chemical analytic portion of urinalysis may also be positive due to hemoglobinuria and myoglobinuria and if red blood cells are present they are quantified by microscopic examination. [facility] HEMOGLOBIN / HEMATOCRITon Hematocrit (Bld) [Volume fraction] 41 % Normal 39-49 [facility] Comment on above: Performed By: #### H H #### [facility] [address] [place] [address] Hemoglobin (Bld) [Mass/Vol] 13.3 g/dL Low 13.5-17.5 [facility] Comment on above: Performed By: #### H H #### [facility] [address] [place] [address] TEGRETOL (CARBAMAZEPINE)on 0 03-21-2020 TEGRETOL/CARBAMAZEPINE 7.5 ug/mL Normal 4.0-12.0 [facility] Comment on above: Performed By: #### T EG #### [facility] [address] [place] [address] VITAMIN D; 25 HYDROXY (FCMH) on 03-21-2020 VITAMIN D 25 HYDROXY 53 ng/mL Normal [facility] Comment on above: Result Comment: Defi cient <20 ng/mL Insufficient 20 to <30 ng/mL Sufficient 30 to 100 ng/mL Upper Safety Limit >100 ng/mL Deficient <20 ng/mL Insufficient 20 to <30 ng/mL Sufficient 30 to 100 ng/mL Upper Safety Limit >100 ng/mL Performed By: #### C BC #### [facility] [address] [facility] [place], [place] [address] HEMOGLOBIN / HEMATOCRITon Hematocrit (Bld) [Volume fraction] 42 % Normal 39-49 [facility] Comment on above: Performed By: #### C BC #### [facility] [address] [facility] [place], [place] [address] Hemoglobin (Bld) [Mass/Vol] 13.8 g/dL Normal 13.5-17.5 [facility] Comment on above: Performed By: #### C BC #### [facility] [address] [place] [address]. [place], [place] [address] BASIC METABOLIC PANELon Anion gap [Moles/Vol] 8 mmol/L Normal 8-16 [facility] Comment on above: Performed By: #### M ETA #### [facility] [address] [facility] [place], [place] [address] Calcium [Mass/Vol] 9.3 mg/dL Normal 8.5-10.5 [facility] Comment on above: Performed By: #### M ETA #### [facility] [address] [place] [address]. [place], [place] [address] Chloride [Moles/Vol] 105 mmol/L Normal 99-107 [facility] Comment on above: Performed By: #### M ETA #### [facility] [address] [facility] [place], [place] [address] CO2 [Moles/Vol] 26 mmol/L Normal 21-31 [facility] Comment on above: Performed By: #### M ETA #### [facility] [address] [place] [address]. [place], [place] [address] Creatinine [Mass/Vol] 0.92 mg/dL Normal 0.60-1.30 [facility] Comment on above: Performed By: #### M ETA #### [facility] [address] [place], [place] [address] EGFRAA 106 mL/min/1.73m2 Normal [facility] Comment on above: Result Comment: GFR Ranges: Stage GFR Level Description 1 90mL/min or more Normal 2 60-89 mL/min Mild Decrease 3 30-59 mL/min Moderate Decrease 4 15-29 mL/min Severe Decrease 5 <15 mL/min Kidney Failure Performed By: #### M ETA #### [facility] [address] [place], [place] [address] GFR/1.73 sq M.predicted MDRD (S/P/Bld) [Vol rate/Area] 87 mL/min/{1.73_m2} Normal [facility] Comment on above: Performed By: #### M ETA #### [facility] [address] [place], [place] [address] Glucose [Mass/Vol] 62 mg/dL Low 70-105 [facility] Comment on above: Performed By: #### M ETA #### [facility] [address] [place], [place] [address] Potassium [Moles/Vol] 4.2 mmol/L Normal 3.5-5.3 [facility] Comment on above: Performed By: #### M ETA #### [facility] [address] [place], [place] [address] Sodium [Moles/Vol] 139 mmol/L Normal 135-145 [facility] Comment on above: Performed By: #### M ETA #### [facility] [address] [place], [place] [address] Urea nitrogen [Mass/Vol] 6.0 mg/dL Low 7.0-25.0 [facility] Comment on above: Performed By: #### M ETA #### [facility] [address] [place], [place] [address] Urea nitrogen/Creatinine [Mass ratio] 7.0 Ratio Normal 6.0-22.0 [facility] Comment on above: Performed By: #### M ETA #### [facility] [address] [place] [address] CBC, AUTO DIFFon 02-29-2020 Basophils (Bld) [#/Vol] 0.1 x10 3/uL Normal 0.0-0.2 [facility] Comment on above: Performed By: #### C BC #### [facility] [address] [place] [address] Basophils/100 WBC (Bld) 0.5 % Normal 0.0-2.0 [facility] Comment on above: Performed By: #### C BC #### [facility] [address] [place] [address] Eosinophils (Bld) [#/Vol] 0.3 x10 3/uL Normal 0.0-0.7 [facility] Comment on above: Performed By: #### C BC #### [facility] [address] [place] [address] Eosinophils/100 WBC (Bld) 2.4 % Normal 0.0-7.0 [facility] Comment on above: Performed By: #### C BC #### [facility] [address] [place] [address] Erythrocyte distribution width (RBC) [Ratio] 14.1 % Normal 11.0-14.8 [facility] Comment on above: Performed By: #### C BC #### [facility] [address] [place] [address] Hematocrit (Bld) [Volume fraction] 44 % Normal 39-49 [facility] Comment on above: Performed By: #### C BC #### [facility] [address] [place] [address] Hemoglobin (Bld) [Mass/Vol] 14.6 g/dL Normal 13.5-17.5 [facility] Comment on above: Performed By: #### C BC #### [facility] [address] [place] [address] Lymphocytes (Bld) [#/Vol] 2.7 x10 3/uL Normal 1.0-4.8 [facility] Comment on above: Performed By: #### C BC #### [facility] [address] [place] [address] Lymphocytes/100 WBC (Bld) 25.8 % Normal 22.0-44.0 [facility] Comment on above: Performed By: #### C BC #### [facility] [address] [place] [address] MANUAL DIFFERENTIAL No Normal * [facility] Comment on above: Performed By: #### C BC #### [facility] [address] [place] [address] MCH (RBC) [Entitic mass] 29.6 pg Normal 27.0-34.0 [facility] Comment on above: Performed By: #### C BC #### [facility] [address] [place] [address] MCHC (RBC) [Mass/Vol] 32.8 g/dL Normal 32.0-36.6 [facility] Comment on above: Performed By: #### C BC #### [facility] [address] [facility] [place], [place] [address] MCV (RBC) [Entitic vol] 90 fL Normal 76-90 [facility] Comment on above: Performed By: #### C BC #### [facility] [address] [place], [place] [address] Monocytes (Bld) [#/Vol] 0.7 x10 3/uL Normal 0.0-0.9 [facility] Comment on above: Performed By: #### C BC #### [facility] [address] [place], [place] [address] Monocytes/100 WBC (Bld) 6.5 % Normal 0.0-12.0 [facility] Comment on above: Performed By: #### C BC #### [facility] [address] [place] [address] Neutrophils (Bld) [#/Vol] 6.9 x10 3/uL Normal 1.8-7.7 [facility] Comment on above: Performed By: #### C BC #### [facility] [address] [place], [place] [address] Neutrophils/100 WBC (Bld) 64.8 % Normal 40.0-70.0 [facility] Comment on above: Performed By: #### C BC #### [facility] [address] [place] [address] Platelets (Bld) [#/Vol] 225 x10 3/uL Normal 142-424 [facility] Comment on above: Performed By: #### C BC #### [facility] [address] [place] [address] RBC (Bld) [#/Vol] 4.9 x10 6/uL Normal 3.9-5.2 [facility] Comment on above: Performed By: #### C BC #### [facility] [address] [place] [address] WBC (Bld) [#/Vol] 10.7 x10 3/uL High 4.6-10.2 [facility] Comment on above: Performed By: #### C BC #### [facility] [address] [place] [address] HEMOGLOBIN A1Con 02-29-2020 HbA1c (Bld) [Mass fraction] 5.8 % Normal 4.0-6.2 [facility] Comment on above: Result Comment: Expe cted Values: 3-6% for non diabetic 6-9% for controlled diabetic >9% for poorly controlled diabetic Performed By: #### C BC #### [facility] [address] [place] [address] HbA1c (Bld) [Mass fraction] 120 mg/dL Normal [facility] Comment on above: Performed By: #### C BC #### [facility] [address] [place] [address] LITHIUM, SERUMon 02-29-2020 [employer] [Moles/Vol] 1.2 mmol/L Normal 0.6-1.2 [facility] Comment on above: Performed By: #### L ITHIUM #### [facility] [address] [place] [address] LIVER PROFILEon 02-29-2020 Albumin [Mass/Vol] 4.0 g/dL Normal 3.3-5.7 [facility] Comment on above: Performed By: #### L IVER #### [facility] [address] [place] [address] Albumin/Globulin [Mass ratio] 2.0 {ratio} Normal 1.1-2.5 [facility] Comment on above: Performed By: #### L IVER #### [facility] [address] [place], [place] [address] ALP [Catalytic activity/Vol] 145 U/L High 34-124 [facility] Comment on above: Performed By: #### L IVER #### [facility] [address] [place] [address] ALT [Catalytic activity/Vol] 10 U/L Normal 7-52 [facility] Comment on above: Performed By: #### L IVER #### [facility] [address] [place] [address] AST [Catalytic activity/Vol] 11 U/L Low 13-39 [facility] Comment on above: Performed By: #### L IVER #### [facility] [address] [place] [address] Bilirubin [Mass/Vol] 0.05 mg/dL Normal 0.03-0.18 [facility] Comment on above: Performed By: #### L IVER #### [facility] [address] [place] [address] Bilirubin Ql (U) 0.3 mg/dL Normal 0.3-1.0 [facility] Comment on above: Performed By: #### L IVER #### [facility] [address] [place] [address] Globulin (S) [Mass/Vol] 2.0 g/dL Normal 1.7-3.8 [facility] Comment on above: Performed By: #### L IVER #### [facility] [address] [place] [address] Protein [Mass/Vol] 5.9 g/dL Low 6.0-8.9 [facility] Comment on above: Performed By: #### L IVER #### [facility] [address] [place] [address] PSA-SCREENINGon 02-29-2020 PSA FOR SCREENING 0.635 ng/mL Normal 0.000-4.000 [facility] Comment on above: Performed By: #### C BC #### [facility] [address] [place] [address] TSH - THIRD GENERATIONon TSH Qn 1.115 uIU/mL Normal 0.340-5.600 [facility] Comment on above: Performed By: #### C BC #### [facility] [address] [place] [address] VITAMIN B12on 02-29-2020 Cobalamin (Vitamin B12) [Mass/Vol] 197 pg/mL Normal 180-914 [facility] Comment on above: Performed By: #### C BC #### [facility] [address] [place] [address] VITAMIN D; 25 HYDROXY (FCMH) on 02-29-2020 VITAMIN D 25 HYDROXY 49 ng/mL Normal [facility] Comment on above: Result Comment: Defi cient <20 ng/mL Insufficient 20 to <30 ng/mL Sufficient 30 to 100 ng/mL Upper Safety Limit >100 ng/mL Performed By: #### C BC #### [facility] [address] [place] [address] LIPID PROFILEon 02-26-2020 Cholesterol [Mass/Vol] 90 mg/dL Normal 25-200 [facility] Comment on above: Performed By: #### L IPID #### [facility] [address] [place] [address] Cholesterol in HDL [Mass/Vol] 32 mg/dL Normal 23-92 [facility] Comment on above: Performed By: #### L IPID #### [facility] [address] [place], [place] [address] Cholesterol in LDL [Mass/Vol] 33 mg/dL Low 66-178 [facility] Comment on above: Performed By: #### L IPID #### [facility] [address] [place] [address] Cholesterol in VLDL [Mass/Vol] 25 mg/dL Normal 0-40 [facility] Comment on above: Performed By: #### L IPID #### [facility] [address] [place] [address] Triglyceride [Mass/Vol] 124 mg/dL Normal 48-352 [facility] Comment on above: Performed By: #### L IPID #### [facility] [address] [place] [address] VALPROIC ACID/DEPAKOTEon VALPROIC ACID/DEPAKOTE <10 Low 50-100 [facility] Comment on above: Result Comment: Resu lts reported at less than analytical measurment of instr ument. Performed By: #### V ALP #### [facility] [address] [place] [address] BASIC METABOLIC PANELon - Anion gap [Moles/Vol] 6 mmol/L Low 8-16 [facility] Comment on above: Performed By: #### M ETA #### [facility] [address] [place] [address] Calcium [Mass/Vol] 9.1 mg/dL Normal 8.5-10.5 [facility] Comment on above: Performed By: #### M ETA #### [facility] [address] [place] [address] Chloride [Moles/Vol] 105 mmol/L Normal 99-107 [facility] Comment on above: Performed By: #### M ETA #### [facility] [address] [place], [place] [address] CO2 [Moles/Vol] 30 mmol/L Normal 21-31 [facility] Comment on above: Performed By: #### M ETA #### [facility] [address] [place], [place] [address] Creatinine [Mass/Vol] 0.88 mg/dL Normal 0.60-1.30 [facility] Comment on above: Performed By: #### M ETA #### [facility] [address] [place], [place] [address] EGFRAA 112 mL/min/1.73m2 Normal [facility] Comment on above: Result Comment: GFR Ranges: Stage GFR Level Description 1 90mL/min or more Normal 2 60-89 mL/min Mild Decrease 3 30-59 mL/min Moderate Decrease 4 15-29 mL/min Severe Decrease 5 <15 mL/min Kidney Failure Performed By: #### M ETA #### [facility] [address] [place], [place] [address] GFR/1.73 sq M.predicted MDRD (S/P/Bld) [Vol rate/Area] 92 mL/min/{1.73_m2} Normal [facility] Comment on above: Performed By: #### M ETA #### [facility] [address] [place], [place] [address] Glucose [Mass/Vol] 59 mg/dL Low 70-105 [facility] Comment on above: Performed By: #### M ETA #### [facility] [address] [place] [address] Potassium [Moles/Vol] 4.1 mmol/L Normal 3.5-5.3 [facility] Comment on above: Performed By: #### M ETA #### [facility] [address] [place] [address] Sodium [Moles/Vol] 141 mmol/L Normal 135-145 [facility] Comment on above: Performed By: #### M ETA #### [facility] [address] [place] [address] Urea nitrogen [Mass/Vol] 6.0 mg/dL Low 7.0-25.0 [facility] Comment on above: Performed By: #### M ETA #### [facility] [address] [place] [address] Urea nitrogen/Creatinine [Mass ratio] 7.0 Ratio Normal 6.0-22.0 [facility] Comment on above: Performed By: #### M ETA #### [facility] [address] [place] [address] CBC, AUTO DIFFon 12-11-2019 Basophils (Bld) [#/Vol] 0.0 x10 3/uL Normal 0.0-0.2 [facility] Comment on above: Performed By: #### C BC #### [facility] [address] [place] [address] Basophils/100 WBC (Bld) 0.3 % Normal 0.0-2.0 [facility] Comment on above: Performed By: #### C BC #### [facility] [address] [place] [address] Eosinophils (Bld) [#/Vol] 0.4 x10 3/uL Normal 0.0-0.7 [facility] Comment on above: Performed By: #### C BC #### [facility] [address] [place], [place] [address] Eosinophils/100 WBC (Bld) 3.4 % Normal 0.0-7.0 [facility] Comment on above: Performed By: #### C BC #### [facility] [address] [place] [address] Erythrocyte distribution width (RBC) [Ratio] 14.0 % Normal 11.0-14.8 [facility] Comment on above: Performed By: #### C BC #### [facility] [address] [place] [address] Hematocrit (Bld) [Volume fraction] 43 % Normal 39-49 [facility] Comment on above: Performed By: #### C BC #### [facility] [address] [place] [address] Hemoglobin (Bld) [Mass/Vol] 14.3 g/dL Normal 13.5-17.5 [facility] Comment on above: Performed By: #### C BC #### [facility] [address] [place] [address] Lymphocytes (Bld) [#/Vol] 2.2 x10 3/uL Normal 1.0-4.8 [facility] Comment on above: Performed By: #### C BC #### [facility] [address] [place] [address] Lymphocytes/100 WBC (Bld) 20.6 % Low 22.0-44.0 [facility] Comment on above: Performed By: #### C BC #### [facility] [address] [place] [address] MCH (RBC) [Entitic mass] 29.8 pg Normal 27.0-34.0 [facility] Comment on above: Performed By: #### C BC #### [facility] [address] [facility]. [place], [place] [address] MCHC (RBC) [Mass/Vol] 33.3 g/dL Normal 32.0-36.6 [facility] Comment on above: Performed By: #### C BC #### [facility] [address] [place] [address]. [place], [place] [address] MCV (RBC) [Entitic vol] 90 fL Normal 76-90 [facility] Comment on above: Performed By: #### C BC #### [facility] [address] [place] [address] Monocytes (Bld) [#/Vol] 0.9 x10 3/uL Normal 0.0-0.9 [facility] Comment on above: Performed By: #### C BC #### [facility] [address] [place] [address]. [place], [place] [address] Monocytes/100 WBC (Bld) 8.3 % Normal 0.0-12.0 [facility] Comment on above: Performed By: #### C BC #### [facility] [address] [place] [address] Neutrophils (Bld) [#/Vol] 7.2 x10 3/uL Normal 1.8-7.7 [facility] Comment on above: Performed By: #### C BC #### [facility] [address] [place] [address] Neutrophils/100 WBC (Bld) 67.4 % Normal 40.0-70.0 [facility] Comment on above: Performed By: #### C BC #### [facility] [address] [place] [address]. [place], [place] [address] Platelets (Bld) [#/Vol] 190 x10 3/uL Normal 142-424 [facility] Comment on above: Performed By: #### C BC #### [facility] [address] [facility] [place], [place] [address] RBC (Bld) [#/Vol] 4.8 x10 6/uL Normal 3.9-5.2 [facility] Comment on above: Performed By: #### C BC #### [facility] [address] [facility] [place], [place] [address] WBC (Bld) [#/Vol] 10.6 x10 3/uL High 4.6-10.2 [facility] Comment on above: Performed By: #### C BC #### [facility] [address] [facility]. [place], [place] [address] BMPon 07-03-2018 Anion gap 3 molar conc 14 mmol/L Invalid Interpretation Code 10 - 20 mmol/L [facility] Calcium mass conc 10.1 mg/dL Invalid Interpretation Code 8.4 - 10.2 mg/dL [facility] Chloride molar conc 99 mmol/L Invalid Interpretation Code 98 - 108 mmol/L [facility] Creatinine mass conc 0.73 mg/dL Invalid Interpretation Code 0.5 - 1.3 mg/dL [facility] GFR/1.73 sq M predicted among non-blacks MDRD vol rate/area (S/P/Bld) The eGFR should be used for monitoring renal function only and not for medication dosing. Invalid Interpretation Code [facility] GFR/1.73 sq M.predicted CKD-EPI vol rate/area (S/P/Bld) 127 Invalid Interpretation Code >=60 mL/min/1.73 m2 [facility] Glucose mass conc 100 mg/dL High 65 - 99 mg/dL [facility] HCO3 molar conc 31 mmol/L Invalid Interpretation Code 21 - 32 mmol/L [facility] Interpretation and review of laboratory results Abnormal Invalid Interpretation Code [facility] Potassium molar conc 4.7 mmol/L Invalid Interpretation Code 3.5 - 5.1 mmol/L [facility] Sodium molar conc 139 mmol/L Invalid Interpretation Code 135 - 145 mmol/L [facility] Urea nitrogen mass conc 8 mg/dL Invalid Interpretation Code 8 - 25 mg/dL [facility] Urea nitrogen/Creatinine mass ratio 11.0 mg/mg Invalid Interpretation Code [facility] CBC WITH AUTO DIFFERENTIALon 07-03-2018 Basophils Auto #/vol (Bld) 0.03 10*3/uL Invalid Interpretation Code [facility] Basophils/100 WBC Auto (Bld) 0.3 % Invalid Interpretation Code [facility] Eosinophils Auto #/vol (Bld) 0.26 10*3/uL Invalid Interpretation Code [facility] Eosinophils/100 WBC Auto (Bld) 2.5 % Invalid Interpretation Code [facility] Erythrocyte distribution width Auto Entitic volume (RBC) 13.5 % Invalid Interpretation Code 11.6 - 14.8 % [facility] Hematocrit Auto Volume Fraction (Bld) 47.9 % Invalid Interpretation Code 41 - 53 % [facility] Hemoglobin mass conc (Bld) 15.1 g/dL Invalid Interpretation Code 13.5 - 17.5 g/dL [facility] Immature granulocytes #/vol (Bld) 0.02 10*3/uL Invalid Interpretation Code [facility] Immature granulocytes/100 WBC (Bld) 0.20 % Invalid Interpretation Code [facility] Comment on above: The IG parameter is the percentage of metamyelocytes, myelocytes, and promyelocytes. Interpretation and review of laboratory results Abnormal Invalid Interpretation Code [facility] Lymphocytes Auto #/vol (Bld) 1.70 10*3/uL Invalid Interpretation Code [facility] Lymphocytes/100 WBC Auto (Bld) 16.2 % Invalid Interpretation Code [facility] MCH Auto Entitic mass (RBC) 29.5 pg Invalid Interpretation Code 26 - 34 pg [facility] MCHC Auto mass conc (RBC) 31.5 g/dL Invalid Interpretation Code 31 - 37 g/dL [facility] MCV Auto Entitic volume (RBC) 93.6 fL Invalid Interpretation Code 80 - 100 fL [facility] Monocytes Auto #/vol (Bld) 0.63 10*3/uL Invalid Interpretation Code [facility] Monocytes/100 WBC Auto (Bld) 6.0 % Invalid Interpretation Code [facility] Neutrophils Auto #/vol (Bld) 7.86 10*3/uL High [facility] Neutrophils/100 WBC Auto (Bld) 74.8 % Invalid Interpretation Code [facility] Nucleated RBC #/vol (Bld) 0.00 10*3/uL Invalid Interpretation Code [facility] Nucleated RBC/100 WBC Ratio (Bld) 0.0 % Invalid Interpretation Code [facility] Platelet mean volume Auto Entitic volume (Bld) 10.1 fL Invalid Interpretation Code 9 - 15.5 fL [facility] Platelets Auto #/vol (Bld) 233 10*3/uL Invalid Interpretation Code [facility] RBC Auto #/vol (Bld) 5.12 10*6/uL Invalid Interpretation Code [facility] WBC Auto #/vol (Bld) 10.50 10*3/uL Invalid Interpretation Code [facility] CT ABDOMEN PELVIS WITHOUT CO [...] WedJul 03, 2018 10:55:16 PM EST Normal [facility] Comment on above: Order Comment: Reaso n for exam?:Pt arrives to ED via EMS from [place] with c/o left abdominal/flank pain x 1 month. Pt has hx of diabetes and stroke with right sided paralysis. EMS reports glucose 101. Pt denies N/V/D/C.Injury/Trauma or Illness?:Illness/OtherHow long have you had these symptoms (acute/chronic)?:AcuteType of Exam?:InitialAdditional signs and symptoms?:n CT Abdomen Pelvis Without Co ntraston 07-03-2018 [facility] 10:57 PM EST EXAMINATION: CT [...] is identified at the abdomen or pelvis. [employer] Workstation ID: [id number] Invalid Interpretation Code [facility] EXAMINATION: CT ABDOMEN PELVIS WITHOUT [...] lung bases are clear. Invalid Interpretation Code [employer] [facility] There is a large calculus within [...] BAB/bd Workstation ID: [id number] Invalid Interpretation Code [employer] [facility] Lactic Acid, Plasmaon 2018 Interpretation and review of laboratory results Abnormal Invalid Interpretation Code [facility] Lactate molar conc 2.4 mmol/L High 0.6 - 2 mmol/L [facility] Otheron 07-03-2018 Extra Tube Hold for add-ons. Invalid Interpretation Code [facility] Comment on above: Auto resulted. [...] strip (U) 7.0 [pH] Invalid Interpretation Code [facility] Protein mass conc (U) 100 Abnormal Negati ve mg/dL [facility] RBC Auto #/area (Urine sed) >180 High [facility] Specific gravity Automated test strip Relative Density (U) 1.013 Invalid Interpretation Code [facility] Urobilinogen Test strip Qn (U) <2.0 Invalid Interpretation Code <2.0 mg/dL [facility] WBC Auto #/area (Urine sed) [...] WedJul 03, 2018 5:47:12 PM EST Normal [facility] Comment on above: Order Comment: Reaso n for exam?:Pt arrives to ED via EMS from [place] with c/o left abdominal/flank pain x 1 month. Pt has hx of diabetes and stroke with right sided paralysis. EMS reports glucose 101. Pt denies N/V/D/C.Injury/Trauma or Illness?:Illness/OtherHow long have you had these symptoms (acute/chronic)?:AcuteHistory of cancer?:Obey chemotherapy, or radiation?:nType of Exam?:InitialAdditional signs and symptoms?:n 1. Negative chest. [employer] Workstation ID: [id number] Invalid Interpretation Code [facility] Interface, Rad In [facility] - 07/03/2018 [...] left acromion process. IMPRESSION: 1. Negative chest. [employer] Workstation ID: [id number] Invalid Interpretation Code [facility] EXAMINATION: Chest, two views, 07/03/2018 at 4:55 [...] the left acromion process. Invalid Interpretation Code [facility] Vital Signs Date Time Vital Sign Value Performing Clinician Facility 12-06-2024 13:33-0400 Body temperature 97.9 [degF] Dr. Mame Bright MD Work Phone: [facility] 12-06-2024 13:33-0400 Diastolic blood pressure 82 mm[Hg] Dr. Mame Bright MD Work Phone: [facility] 12-06-2024 13:33-0400 Heart rate 76 /min Dr. Mame Bright MD Work Phone: [facility] 12-06-2024 13:33-0400 Respiratory rate 16 /min Dr. Mame Bright MD Work Phone: [facility] 12-06-2024 13:33-0400 SaO2% (BldA) [Mass fraction] 95 % Dr. Mame Bright MD Work Phone: [facility] 12-06-2024 13:33-0400 Systolic blood pressure 114 mm[Hg] Dr. Mame Bright MD Work Phone: [facility] 12-05-2024 23:25-0400 Body mass index (BMI) [Ratio] 34.4 kg/m2 Dr. Mame Bright MD Work Phone: [facility] 12-05-2024 23:25-0400 Body weight 103.[address] Mame Bright MD Work Phone: [facility] 12-05-2024 07:00-0400 Inhaled oxygen flow rate 2 L/min Dr. Mame Bright MD Work Phone: [facility] 12-04-2024 14:39-0400 Body height [address] Mame Bright MD Work Phone: [facility] 12-04-2024 14:14-0400 Body temperature 100.2 [degF] Dr. Mame Bright MD Work Phone: [facility] 12-04-2024 14:14-0400 Diastolic blood pressure 70 mm[Hg] Dr. Mame Bright MD Work Phone: [facility] 12-04-2024 14:14-0400 Heart rate 76 /min Dr. Mame Bright MD Work Phone: [facility] 12-04-2024 14:14-0400 Respiratory rate 16 /min Dr. Mame Bright MD Work Phone: [facility] 12-04-2024 14:14-0400 SaO2% (BldA) [Mass fraction] 93 % Dr. Mame Bright MD Work Phone: [facility] 12-04-2024 14:14-0400 Systolic blood pressure 109 mm[Hg] Dr. Mame Bright MD Work Phone: [facility] 12-04-2024 12:00-0400 Inhaled oxygen flow rate 10 L/min Dr. Mame Bright MD Work Phone: [facility] 12-04-2024 10:26-0400 Body height 172.[address] Mame Bright MD Work Phone: [facility] 12-04-2024 10:26-0400 Body mass index (BMI) [Ratio] 35.3 kg/m2 Dr. Mame Bright MD Work Phone: [facility] 12-04-2024 10:26-0400 Body weight 105.[address] Mame Bright MD Work Phone: [facility] 07-07-2022 17:00-0500 Body temperature 97.9 [degF] Alaina Baez MD Work Phone: [facility] 07-07-2022 17:00-0500 Diastolic blood pressure 75 mm[Hg] Alaina Baez MD Work Phone: [facility] 07-07-2022 17:00-0500 Heart rate 80 /min Alaina Baez MD Work Phone: [facility] 07-07-2022 17:00-0500 Respiratory rate 14 /min Alaina Baez MD Work Phone: [facility] 07-07-2022 17:00-0500 SaO2% (BldA) [Mass fraction] 96 % Alaina Baez MD Work Phone: [facility] 07-07-2022 17:00-0500 Systolic blood pressure 110 mm[Hg] Alaina Baez MD Work Phone: [facility] 06-30-2022 13:00-0500 Body height 175.3 cm Alaina Baez MD Work Phone: [facility] 06-30-2022 13:00-0500 Body mass index (BMI) [Ratio] 29.51 kg/m2 Alaina Baez MD Work Phone: [employer] 06-30-2022 13:00-0500 Body weight 90.7 kg Alaina Baez MD Work Phone: [employer] 05-18-2022 10:12-0500 Body temperature 100.2 [degF] Ronan Couette DO Work Phone: [facility] [employer] 05-18-2022 10:12-0500 Diastolic blood pressure 56 mm[Hg] Ronan Couette DO Work Phone: [facility] [employer] 05-18-2022 10:12-0500 Heart rate 68 /min Ronan Couette DO Work Phone: [facility] [employer] 05-18-2022 10:12-0500 Respiratory rate 18 /min Ronan Couette DO Work Phone: [facility] [employer] 05-18-2022 10:12-0500 SaO2% (BldA) [Mass fraction] 96 % Ronan Couette DO Work Phone: [facility] [employer] 05-18-2022 10:12-0500 Systolic blood pressure 115 mm[Hg] Ronan Couette DO Work Phone: [facility] [employer] 05-14-2022 18:38-0500 Body height 172.7 cm Ronan Couette DO Work Phone: [facility] [employer] 05-14-2022 18:38-0500 Body mass index (BMI) [Ratio] 34.97 kg/m2 Ronan Couette DO Work Phone: [facility] [employer] 05-14-2022 18:38-0500 Body weight 104.33 kg Ronan Couette DO Work Phone: [facility] 12-12-2020 12:49-0400 Diastolic blood pressure 68 mm[Hg] Joon Atkinson MD Work Phone: [facility] 12-12-2020 12:49-0400 Heart rate 72 /min Joon Atkinson MD Work Phone: [facility] 12-12-2020 12:49-0400 Respiratory rate 12 /min Joon Atkinson MD Work Phone: [facility] 12-12-2020 12:49-0400 SaO2% (BldA) [Mass fraction] 95 % Joon Atkinson MD Work Phone: [facility] 12-12-2020 12:49-0400 Systolic blood pressure 108 mm[Hg] Joon Atkinson MD Work Phone: [facility] 12-12-2020 01:30-0400 Body height 172.7 cm Joon Atkinson MD Work Phone: [facility] 12-12-2020 01:30-0400 Body mass index (BMI) [Ratio] 38.01 kg/m2 Joon Atkinson MD Work Phone: [facility] 12-12-2020 01:30-0400 Body temperature 97.59 [degF] Joon Atkinson MD Work Phone: [facility] 12-12-2020 01:30-0400 Body weight 113.4 kg Joon Atkinson MD Work Phone: [facility] 06-20-2020 20:39-0500 BP Diastolic 81 mm[Hg] Mike Rodriguez [facility] 06-20-2020 20:39-0500 BP Systolic 155 mm[Hg] Mike Rodriguez [facility] 06-20-2020 20:39-0500 Pulse (Heart Rate) 88 /min Mike Rodriguez [facility] 06-20-2020 20:39-0500 Pulse Oximetry 95 % Mike Rodriguez [facility] 06-20-2020 16:28-0500 BMI (Body Mass Index) 37.25 kg/m2 Mike Rodriguez [facility] 06-20-2020 16:28-0500 Body weight 111.13 kg Mike Rodriguez [facility] 06-20-2020 15:49-0500 Body Temperature 98.2 [degF] Mike Rodriguez [facility] 06-20-2020 15:49-0500 Height 172.7 cm Mike Rodriguez [facility] 06-20-2020 15:49-0500 Respiratory Rate 18 /min Mike Rodriguez [facility] 04-04-2020 16:56-0400 BP Diastolic 72 mm[Hg] Joon Atkinson [facility] 04-04-2020 16:56-0400 BP Systolic 120 mm[Hg] Joon Atkinson [facility] 04-04-2020 16:56-0400 Pulse (Heart Rate) 67 /min [facility] 04-04-2020 16:56-0400 Pulse Oximetry 98 % [facility] 04-04-2020 16:56-0400 Respiratory Rate 16 /min [facility] 07-03-2018 22:38-0500 Pulse (Heart Rate) 80 /min [facility] 07-03-2018 22:38-0500 Pulse Oximetry 98 % [facility] 07-03-2018 22:38-0500 Respiratory Rate 18 /min [facility] 07-03-2018 18:45-0500 BP Diastolic 85 mm[Hg] [facility] 07-03-2018 18:45-0500 BP Systolic 120 mm[Hg] [facility] 07-03-2018 16:02-0500 BMI (Body Mass Index) 31.32 kg/m2 [facility] 07-03-2018 16:02-0500 Body Temperature 98.29 [degF] [facility] 07-03-2018 16:02-0500 Height 172.7 cm [facility] 07-03-2018 16:02-0500 Weight 93.44 kg [facility] Encounters Encounter Date Encounter Type Care Provider Facility Start: 12-06-2024 Non-patient / Non-visit Dr. Michelle Angeles MD -[facility] Work Phone: Start: 12-05-2024 Non-patient / Non-visit Dr. Michelle Angeles MD -[facility] Work Phone: Start: 12-05-2024 Non-patient / Non-visit Dr. Ean mora DO -[facility] Start: 12-04-2024 ambulatory Thomas Harvey [facility]y:[facility] Start: 12-04-2024 End: 12-06-2024 Evaluation and management of inpatient Dr. Michelle Angeles MD -Intensive Care Unit Work Phone: Start: 07-31-2024 ambulatory [facility] Start: 07-31-2024 End: 08-01-2024 Evaluation and management of inpatient [facility] Facility:[facility] Start: 06-09-2022 End: 07-08-2022 Evaluation and management of inpatient [facility] Start: 06-08-2022 End: 07-08-2022 Evaluation and management of inpatient Alaina Baez MD Work Phone: [facility] Comment on above: Schizoaffective diso rder, bipolar type (CMS/HCC) (Primary Dx) Start: 06-08-2022 End: 06-08-2022 Emergency department patient visit [facility]RAL[facility] Start: 05-14-2022 Encounter for other general examination VIJAY KRISHNAMURTHY [facility] [employer] Start: 05-14-2022 End: 05-18-2022 Evaluation and management of inpatient UNLISTED PROVIDER [email or web address] Start: 05-14-2022 End: 05-18-2022 Admission to establishment Ronan Siegel DO Work Phone: [email or web address] Start: 05-14-2022 End: 05-18-2022 Evaluation and management of inpatient Ronan Siegel DO Work Phone: [facility] [employer] Comment on above: Medical clearance fo r psychiatric admission (Primary Dx); Agitation Start: 05-04-2022 End: 05-05-2022 Emergency department patient visit PHYSICIAN DERICK [facility] Start: 02-16-2022 End: 02-27-2022 Evaluation and management of inpatient JOSE DOMINGUEZ [facility] Start: 02-11-2022 ambulatory LUZ CORRALES [facility] Start: 12-12-2020 End: 12-12-2020 Emergency department patient visit Joon Atkinson MD Work Phone: [facility] Emergency Department Start: 09-04-2020 End: 09-04-2020 Orders Only Jennifer Corea Work Phone: [facility] Start: 07-18-2020 Patient encounter procedure MILLERD [facility] Start: 06-20-2020 End: 06-20-2020 Emergency department patient visit Mike Rodriguez Work Phone: [facility] Emergency Department Comment on above: Agitation (Primary D x) Start: 06-07-2020 Patient encounter procedure HAYLEY [facility] Start: 04-04-2020 End: 04-04-2020 Emergency department patient visit Joon Atkinson Work Phone: [facility] Emergency Department Comment on above: Homicidal ideation ( Primary Dx); Bipolar 1 disorder (HCC) Start: 02-29-2020 Patient encounter procedure NISHA [facility] Start: 02-26-2020 Patient encounter procedure OSAGE BEACHD [facility] Start: 01-10-2020 Patient encounter procedure OSAGE BEACHSherif [facility] Start: 12-11-2019 Patient encounter procedure [facility] Start: 07-03-2018 End: 07-04-2018 Emergency department patient visit [facility] Start: 07-03-2018 End: 07-03-2018 Emergency department patient visit [facility] Work Phone: [facility] Emergency Department Comment on above: Kidney stone on left side (Primary Dx) Start: 05-31-2017 End: 05-31-2017 Ambulatory [facility] Procedures Date Procedure Procedure Detail Performing Clinician [...] Drug screen quantita tive lithium Kalli R Magnetic Tape Typewriter Operator DO Work Phone: Start: 06-16-2022 EXTRA TUBES [...] Phone: Start: 12-13-2022 Sars-cov-2 detection by dna/rna Pict Work Phone: Start: 06-09-2022 Basic metabolic pane l calcium total Contextool DO Work Phone: Start: 06-09-2022 CBC W Auto Different ial panel - Blood Pict Work Phone: Start: 06-09-2022 Drug screen quantita tive lithium [employer] DO Work Phone: Start: 06-09-2022 Ethanol [Mass/volume ] in Serum or Plasma [employer] DO Work Phone: Start: 06-09-2022 EXTRA TUBES [...] Mike Martin Rodriguez Work Phone: Start: 06-20-2020 [employer] [Moles/volum e] in Serum or Plasma Pamela [...] Start: 05-14-2027 Fasting lipid profile LIPID SCREENIN [facility] Start: 05-14-2027 Lipid panel Cholesterol Sc [facility] (Lipid Panel) [facility] Start: 12-06-[address] [facility] Start: 12-05-2024 Following clinical pathway protocol [facility] Start: 12-05-2024 Enteric precautions [facility] Start: 12-05-2024 Enteric Bacteriology Enteric Bacteri ology [facility] Start: 12-05-2024 Care planning and pr oblem solving actions [facility] Start: 12-04-2024 Consultation [facility] Start: 12-04-2024 Following clinical pathway protocol [facility] Start: 12-04-2024 Oxygen therapy [facility] Start: 12-04-2024 Provision of activit y privileges [facility] Start: 12-04-2024 Assessment of risk o f venous thromboembolism [facility] Start: 12-04-2024 Insertion of cathete r into peripheral vein [facility] Start: 12-04-2024 Measuring intake and output [facility] Start: 12-04-2024 Providing care accor ding to standard [facility] Start: 12-04-2024 Referral to occupati onal therapist [facility] Start: 12-04-2024 Referral to service [facility] Start: 12-04-2024 Vital signs measurements [facility] Start: 12-04-2024 [facility] Start: 12-04-2024 Bacteria identified in Blood by Culture Blood Culture [facility] Start: 12-04-2024 Bacteria identified in Urine by Culture Urine Culture [facility] Start: 12-04-2024 Blood culture Blood Culture [facility] Start: 12-04-2024 Admission procedure [facility] Start: 12-04-2024 Hospital admission, emergency, from emergency room, medical nature [facility] Start: 12-04-2024 End: 12-04-2024 [facility] Start: 06-30-2023 Hypertension/CHF/CAD Annual BMP Blood Test Hypertension/CHF/CAD Annual BMP Blood Test [facility] Start: 02-16-2023 Urine screening for protein Diabetes: Annual Urine Protein Test (Microalbumin) [facility] Start: 06-08-2022 Adolescent depressio n screening assessment Depression Screening [facility] Start: 06-08-2022 Diabetes: Annual Ret ellen Eye Exam Diabetes: Annual Retina Eye Exam [facility] Start: 06-08-2022 Diabetic foot examination Diab etes: Annual Foot Exam [facility] Start: 06-08-2022 Hemoglobin A1c measurement Diabetes: Blood Sugar Control Test (HGBA1C) [facility] Start: 06-08-2022 Hepatitis C screening Hepatitis C Sc reening [facility] Start: 06-08-2022 HIV screening HIV Screening [facility] Start: 06-08-2022 Screening for malign ant neoplasm of colon Colorectal Cancer Screening: Colonoscopy [facility] Start: 06-08-2022 Social Influencers o f Health Screening Social Influencers of Health Screening [facility] Start: 02-26-2022 Influenza vaccination Influenza Vacc ine (#1) [facility] Start: 02-26-2022 Influenza vaccinatio n given INFLUENZA VACCINE (#1) [facility] Start: 11-11-2021 COVID-19 Vaccine (5 - Booster) COVID-19 Vaccine (5 - Booster) [facility] Start: 02-26-2021 Influenza vaccination Sequenti al Influenza Vaccine (Season Ended) [facility] Start: 02-27-2020 Influenza vaccinatio n given Sequential Influenza Vaccine (#1) [facility] Start: 01-31-2020 Administration of he rpes zoster vaccine Zoster Vaccines (1 of 2) [facility] Start: 01-31-2020 Screening for malign ant neoplasm of colon [facility] Start: 01-31-2020 Zoster vaccine hzv l kyra for subcutaneous use ZOSTER (SHINGLES) VACCINE (1 of 2) [facility] Start: 01-31-2020 Zoster Vaccines (1 of 2) Zoste r Vaccines (1 of 2) [facility] Start: 02-26-2018 Influenza vaccinatio n given SEQUENTIAL INFLUENZA VACCINE (#1) [facility] Start: 2015 Screening for malign ant neoplasm of colon [facility] Start: 11-19-2012 HbA1c (Bld) [Mass fraction] A1C [facility] Start: 11-19-2012 Hemoglobin A1c measurement A1C [facility] Start: 1989 DTaP,Tdap,and Td Vac cines (1 - Tdap) DTaP,Tdap,and Td Vaccines (1 - Tdap) [facility] Start: 01-31-1988 ANNUAL WELLNESS VISIT ANNUAL WELLNES S VISIT [facility] Start: 01-31-1988 Hepatitis C antibody , confirmatory test Hepatitis C Screening [facility] Start: 01-31-1988 Hepatitis C screening Hepatitis C Sc reening [facility] Start: 1986 COVID-19 Vaccine (1 of 2) COVI D-19 Vaccine (1 of 2) [facility] Start: 1985 HIV screening HIV Screening [facility] Start: 1982 COVID-19 Vaccine (1) COVID-19 Vaccin e (1) [facility] Start: 1982 Depression screening using PHQ-9 (Patient Health Questionnaire 9) score DEPRESSION SCREENING [facility] Start: 1981 Administration of diphtheria + tetanus + acellular pertussis vaccine DTAP/TDAP/TD VACCINE (1 - Tdap) [facility] Start: 01-31-1980 Albumin DL <= 20 mg/ L (U) [Mass/Vol] Urine Microalbumin [facility] Start: 01-31-1980 Diabetic foot examination Foot Exam [facility] Start: 01-31-1980 Microalbumin measure ment, urine, quantitative Urine Microalbumin [facility] Start: 01-31-1980 Ophthalmic examinati on and evaluation Ophthalmology Exam [facility] Start: 01-31-1976 Pneumococcal Vaccine : Ped or At-Risk (1 of 2 - PPSV23) Pneumococcal Vaccine: Ped or At-Risk (1 of 2 - PPSV23) [facility] Start: 01-31-1976 Pneumococcal Vaccine : Pediatrics (0 to 5 Years) and At-Risk Patients (6 to 64 Years) (1 - PCV) Pneumococcal Vaccine: Pediatrics (0 to 5 Years) and At-Risk Patients (6 to 64 Years) (1 - PCV) [facility] Start: 1973 History and physical examination, annual for health maintenance Wellness Visit [facility] Start: 1970 COVID-19 VACCINE (#1) COVID-19 VACCI NE (#1) [facility] Start: 1970 Hepatitis B Vaccines (1 of 3 - 3-dose series) Hepatitis B Vaccines (1 of 3 - 3-dose series) [facility] Start: 1970 Low dose computed tomography of chest without contrast Low-dose CT Lung Cancer Screen [facility] Start: 1970 Prostate specific an tigen measurement PSA Level [facility] Start: 1970 Tetanus vaccination [facility] End: 04-04-2020 12 lead ECG ECG 12 Lead ECG STAT Once for 1 Occurrences starting 04/04/2020 until 04/04/2020 [facility] Comment on above: Once for 1 Occurrenc es starting 04/04/2020 until 04/04/2020 Bacteria identified in Sputum by Respiratory culture [facility] Glucose [Mass/volume ] in Serum or Plasma POCT glucose Point of Care Testing Routine 0600 until discontinued starting 05/16/2022 [facility] Comment on above: 0600 until discontin ued starting 05/16/2022 End: 05-18-2022 [employer] level [employer] level Lab Routine One Time for 1 Occurrences starting 05/18/2022 until 05/18/2022 [facility] Work Phone: Comment on above: One Time for 1 Occur rences starting 05/18/2022 until 05/18/2022 Microscopic observat ion [Identifier] in Unspecified specimen by Gram stain [facility] Nucleic acid assay [facility] Patient Education ED Dyspnea [facility] Work Phone: Patient referral [facility] Work Phone: Thyroid [place] [facility] [place] [facility] Add-On 05/15/2022 until discontinued, 1 completed [facility] Work Phone: Comment on above: 05/15/2022 until dis continued, 1 completed Urine culture [facility] Immunizations Immunization Date Immunization Notes Care Provider Easton chapa 04-09-2011 influenza virus vacc ine, unspecified formulation Alaina Baez MD Work Phone: [facility] Payers Date Payer Category Payer Self-pay 2022 Medicaid [id number] 2017 Medicaid [id number] 2017 Medicaid MEDICAID [facility] [id number] 2017-Present [id number] 1970 Unknown [id number] 2.16.840.1.162204.3.579.2.902 1970 Unknown [id number] 2.16.840.1.678484.3.579.2.597 1970 Unknown [id number] 2.16.840.1.397164.3.579.2.597 1970 Unknown [id number] 2.16.840.1.520322.3.579.2.597 1970 Unknown [id number] 2.16.840.1.081502.3.579.2.597 1970 Unknown [id number] 2.16.840.1.444641.3.579.2.597 1970 Unknown [id number] 2.16.840.1.219574.3.579.2.597 1970 Unknown [id number] 2.16.840.1.388013.3.579.2.297 1970 Unknown [id number] 2.16.840.1.880262.3.579.2.900 1970 Unknown [id number] 2.16.840.1.069520.3.579.2.900 1970 Unknown [id number] 2.16.840.1.979769.3.579.2.1143 1970 Unknown [id number] 2.16.840.1.467303.3.579.2.1143 Unknown [id number] 2.16.840.1.318175.3.579.2.462 Unknown [id number] 2.16.840.1.465776.3.579.2.462 Unknown [id number] 2.16.840.1.032454.3.579.2.462 Unknown [id number] 2.16.840.1.513677.3.579.2.462 Unknown [id number] 2.16.840.1.457107.3.579.2.462 Unknown [id number] 2.16.840.1.416303.3.579.2.462 Unknown [id number] 2.16.840.1.789219.3.579.2.462 Unknown [id number] 2.16.840.1.835756.3.579.2.462 Social History Date Type Detail Facility Start: 01-13-2017 End: 12-04-2024 Tobacco smoking status MTIS Current every day smoker [facility] Work Phone: Start: 01-13-2017 End: 06-09-2022 Cigarettes smoked current (pack per day) - Reported [facility] Work Phone: Start: 1970 Sex Assigned At Not on file O [employer] Work Phone: Start: 04-04-2020 End: 12-12-2020 Tobacco use and exposure Never used [facility] Start: 04-04-2020 Alcohol intake Current drinke r of alcohol (finding) [facility] Start: 01-11-2017 Alcohol Comment drink every co uple of days, pt lives in a long-term and this rn unsure if this is correct [facility] Start: 05-04-2022 End: 06-08-2022 Exposure to SARS-CoV-2 (event) Not sure [facility] Start: 12-12-2020 End: 06-09-2022 Alcohol intake Ex-drinker (finding) [facility] History of tobacco use Cigarette Smoker G librado [facility] Start: 1970 Sex Assigned At Male W [facility] Goals Date Patient Goal Desired Activity /State Functional Status Date Assessment Result Facility 12-06-2024 Functional status Chair [facility] Work Phone: Mental Status Date Assessment Result Facility 12-06-2024 Cognitive function Voice/Name [facility] Work Phone: Clinical Notes 12-12-2020 to 12-06-2024 Note Date & Type Note Facility 12-06-2024 Discharge summary Note Date/Time December 06, 2024 1:[address] [facility] Medical Records Department [address] [place] [address] Transfer to [facility] MR#: [id number] Acct: [id number] Name: RIGO GARCIA Rep #:[id number] : 1970 54 From: Michelle Angeles MD PCP: Dr. Mame Bright MD Status:ADM IN Certification of patient admission REQUIRED AT TIME OF ADMISSION. I CERTIFY THAT POST-HOSPITAL ECF SERVICES ARE REQUIRED TO BE GIVEN ON AN IN-PATIENT BASIS BECAUSE OF THE ABOVE NAMED PATIENT'S NEED FOR LONGTERM CARE ON A CONTINUING BASIS FOR THE CONDITION(S) FOR WHICH HE/SHE WAS RECEIVING IN-PATIENT HOSPITAL SERVICES PRIOR TO HIS/HER TRANSFER TO [facility]. 12/06/24 1334<Electronically signed by Michelle Angeles MD> [...] 90%. * Transfer out of ICU to [facility] today. * #Type II diabetes mellitus: Hold [...] 20 mg tablet 20 mg PO QHS [place] Heartburn Chew 300 mg (750 mg) tablet,chewable [...] Zion Tobias MD; Dr. Karlo MD ~ [facility] Work Phone: 1(207) 727-936606-11-[address] [facility] Medical Records Department [address] [place] [address] Transfer to [facility] MR#: [id number] Acct: [id number] Name: RIGO GARCIA Rep #:[id number] : 1970 54 From: Michelle Angeles MD PCP: Dr. Mame Bright MD Status:ADM IN Certification of patient admission REQUIRED AT TIME OF ADMISSION. I CERTIFY THAT POST-HOSPITAL ECF SERVICES ARE REQUIRED TO BE GIVEN ON AN IN-PATIENT BASIS BECAUSE OF THE ABOVE NAMED PATIENT'S NEED FOR LONGTERM CARE ON A CONTINUING BASIS FOR THE CONDITION(S) FOR WHICH HE/SHE WAS RECEIVING IN-PATIENT HOSPITAL SERVICES PRIOR TO HIS/HER TRANSFER TO [facility]. 12/06/24 1334 Diet Diet Order/Speech Therapy: INPATIENT [...] 90%. * Transfer out of ICU to [facility] today. * #Type II diabetes mellitus: Hold [...] 20 mg tablet 20 mg PO QHS [place] Heartburn Chew 300 mg (750 mg) tablet,chewable [...] MD; Dr. Jayleen Manning MD; Dr. Jose Meijas DO; Dr. Mame Bright MD; Dr. Tre Ye DO; Dr. Karel Tejeda MD; Dr. Zion Tobias MD; Dr. Karlo MD ~ [facility]06-11-2025 [facility] Medical Records Department [address] [place] [address] Discharge Summary 12/06/24 1334 MR#: [id number] Acct: [id number] Name: RIGO GARCIA Rep #: [id number] : 1970 54 From: Michelle Angeles MD PCP: Dr. Mame Bright MD Status:DIS IN Location: [facility] [id number] Providers Date of Admission: 12/04/24 Date of Discharge: 12/06/24 Primary Care Physician: Dr. Mame Bright MD Consultations 12/04/24 15:00 Consult: Valve Repairer Reclamation / Pulmonary Medicine Routine Consulting Provider: Intensivists/Pulmonary [...] 90%. * Transfer out of ICU to [facility] today. * #Type II diabetes mellitus: Hold [...] mg PO TID BIPOLAR 07/31/24 calcium carbonate ([place] Heartburn Chew) 600 mg PO Q6H PRN [...] of nausea and vomiting. HE lives in [facility] where he resides. HE was brought in [...] come back for [place] (more content not included)...[facility]06-10-2025 Progress note Author Michelle [facility] Note Date/Time December 05, 2024 5:50 pm [facility] Medical Records Department [address] [place] [address] Progress Note 12/05/24 1419 MR#: [id number] Acct: [id number] Name: RIGO GARCIA Rep #:[id number] : 1970 54 From: Michelle Angeles MD PCP: Dr. Mame Bright MD Status:ADM IN Location: [place] [address]- Subjective Subjective Patient seen and examined. He [...] (Auto) 78.4 H, Lymph %(Auto) 11.6 L, Hawkins % (Auto) 9.4, Eos % (Auto) 0.1, [...] bilateral basilar atelectatic pulmonary changes. Reading Location: [place] [address] Physical Exam Const alert and no apparent [...] 90%. * Transfer out of ICU to [facility] today. * #Type II diabetes mellitus: Hold [...] not recur. Charges/Coding Visit Charges Inpatient E&M: 65746 Subs Hosp L2 12/05/24 1750 <Electronically signed by Michelle Angeles MD> Michelle Angeles MD Cosigner Signature (if applicable): CC: ~ Signed [facility] Work Phone: 1(935) 778-309306-10-2025 Progress note [facility] Medical Records Department [address] [place] [address] Progress Note 12/05/24 1419 MR#: [id number] Acct: [id number] Name: RIGO GARCIA Rep #:[id number] : 1970 54 From: Michelle Angeles MD PCP: Dr. Mame Bright MD Status:ADM IN Location: [place] [address] Subjective Subjective Patient seen and examined. He [...] Std Deviation 46.1 H, RDW Coeff of Thmoas 14.7 H, Plt Count 217, MPV 10.4, Immature Gran % (Auto) 0.300, Neut % (Auto) 78.4 H, Lymph %(Auto) 11.6 L, Hawkins % (Auto) 9.4, Eos % (Auto) 0.1, [...] bilateral basilar atelectatic pulmonary changes. Reading Location: [place] [address] Physical Exam Const alert and no apparent [...] 90%. * Transfer out of ICU to [facility] today. * #Type II diabetes mellitus: Hold [...] not recur. Charges/Coding Visit Charges Inpatient E&M: 22086 Subs Hosp L2 12/05/24 7936 Michelle Angeles MD Cosigner Signature (if applicable): CC: ~ Signed [facility]06-10-2025 Consult note Author Ean Quintana [facility] Note Date/Time December 05, 2024 9:37 am [facility] Medical Records Department [address] [place] [address] Consultation - Valve Repairer Reclamation 12/05/24 0652 MR#: [id number] Acct: [id number] Name: RIGO GARCIA Rep #:[id number] : 1970 54 From: Ean Quintana DO [...] medicationsas indicated. This note was generated with Extenda-Dentation software. It may contain incorrectwords, spelling, and [...] but is not currently followed by a propulsion motor and generator repairer, nor has he ever been diagnosedwith COPD. [...] morning demonstrated no focal infiltrate or consolidation. [facility] Medical History (Updated 12/05/24 @ 09:32 by [...] TID BIPOLAR 5 12/03/24 History calcium carbonate ([place] 600 mg PO Q6H PRN hear tburn [...] 85.9 H, Lymph % (Auto) 6.3 L, Hawkins % (Auto) 6.8, Eos % (Auto) 0.5, [...] Clarity Clear, Urine pH 5.0, Ur Specific [place] 1.020, Urine Protein 30 H, Urine Glucose [...] (Auto) 78.4 H, Lymph %(Auto) 11.6 L, Hawkins % (Auto) 9.4, Eos % (Auto) 0.1, [...] 10:43 IMPRESSION: No acute process. Reading Location[facility] Charges/Coding Visit Charges Inpatient E&M: 08047 Init Hosp L3 12/05/24 0937 <Electronically signed by Ean Quintana DO> Cosigner Signature (if applicable): CC: Dr. Mame Bright MD~ Signed [facility] Work Phone: 1(682) 358-650506-10-[address] [facility] Medical Records Department [address] [place] [address] Consultation - Valve Repairer Reclamation 12/05/24 0652 MR#: [id number] Acct: [id number] Name: RIGO GARCIA Rep #:[id number] : 1970 54 From: Ean Quintana DO [...] medicationsas indicated. This note was generated with [employer] software. It may contain incorrectwords, spelling, and [...] but is not currently followed by a propulsion motor and generator repairer, nor has he ever been diagnosedwith COPD. [...] morning demonstrated no focal infiltrate or consolidation. [facility] Medical History (Updated 12/05/24 @ 09:32 by [...] TID BIPOLAR 5 12/03/24 History calcium carbonate ([place] 600 mg PO Q6H PRN hear tburn [...] 85.9 H, Lymph % (Auto) 6.3 L, Hawkins % (Auto) 6.8, Eos % (Auto) 0.5, [...] Clarity Clear, Urine pH 5.0, Ur Specific [place] 1.020, Urine Protein 30 H, Urine Glucose [...] (Auto) 78.4 H, Lymph %(Auto) 11.6 L, Hawkins % (Auto) 9.4, Eos % (Auto) 0.1, [...] 10:43 IMPRESSION: No acute process. Reading Location: [facility] Charges/Coding Visit Charges Inpatient E&M: 54008 Init Hosp L3 12/05/24 0937 Cosigner Signature (if applicable): CC: Dr. Mame Bright MD~ Signed [facility]06-10-2025 Radiology Diagnostic study note [facility] Imaging Services [address] [place] [address] Chest 1 View (Portable) MR#: [id number] Acct: [id number] Name: RIGO AGRCIA Rep #: [id number] : 1970 M 54 From: Sohan Chadwick MD PCP: Dr. Mame Bright MD Status: ADM IN Study:Chest 1 View (Portable) Date of Exam: 12/05/24 Exam# [id number] Ordering Dr: Richardson DO PROCEDURE: CHEST 1 [...] bilateral basilar atelectatic pulmonary changes. Reading Location: [place] [address] CC: Dr. Ean Quintana DO; Dr. Mame Bright MD ~ Rn Telephone Triage: Signed [facility]06-09-2025 History and physical note Author Michelle [facility] Note Date/Time December 04, 2024 6:53p m [facility] Medical Records Department [address] [place] [address] H&P Exam - Hospitalist 12/04/24 1248 MR#: [id number] Acct: [id number] Name: RIGO GARCIA Rep #:[id number] : 1970 54 From: Michelle Angeles MD PCP: Dr. Mame Bright MD Status:ADM IN Location: ICU ICU03-1 HPI - General General Date of Admission: 12/04/24 Date of Service: 12/04/24 Chief Complaint: nausea, vomiting HPI Narrative RIGO GARCIA, is a 54 M with a PMH as outlined who [facility] from his SNF on 12/04/2024 with a complaint of nausea and vomiting. [facility] HE was [facility] [...] to COPD exacerbation with probable aspiration pneumonia. [facility] Medical History CVA (cerebral vascular accident) Depression [...] TID BIPOLAR 5 12/03/24 History calcium carbonate ([place] 600 mg PO Q6H PRN hear tburn [...] 85.9 H, Lymph % (Auto) 6.3 L, Hawkins % (Auto) 6.8, Eos % (Auto) 0.5, [...] Clarity Clear, Urine pH 5.0, Ur Specific [place] 1.020, Urine Protein 30 H, Urine Glucose [...] 10:43 IMPRESSION: No acute process. Reading Location: [facility] Assessment & Plan Assessment/Plan (1) Acidosis, lactic: [...] Full code Charges/Coding Visit Charges Inpatient E&M: 20915 Init Hosp L3 12/04/24 3502 <Electronically signed by Michelle Angeles MD> Cosigner Signature (if applicable): CC: Dr. Michelle Angeles MD; Dr. Mame Bright MD~ Signed [facility] Work Phone: 1(343) 906-609206-09-2025 History and physical note [facility] Medical Records Department [address] [place] [id number] H&P Exam - Hospitalist 12/04/24 1248 MR#: [id number] Acct: [id number] Name: RIGO GARCIA Rep #:[id number] : 1970 54 From: Michelle Angeles MD PCP: Dr. Mame Bright MD Status:ADM IN Location: ICU ICU03-1 HPI - General General Date of Admission: 12/04/24 Date of Service: 12/04/24 Chief Complaint: nausea, vomiting HPI Narrative RIGO GARCIA is a 54 M with a PMH as outlined who presents from his SNF on 12/04/2024 with a complaintof nausea and vomiting. [facility] [...] due to COPD exacerbation with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
[2025-02-01] VITALS (30 sets, daily range): BP systolic 109–147; BP diastolic 66–96; PULSE 49–101; RESP 16–34; TEMP 36.8–37; O2SAT 90–97; BMI 34.7
--- NOTE | 2025-02-01 00:23 | EKG12_ITS ---
Test Reason : AM EKG Blood Pressure : */* mmHG Vent. Rate : 70 BPM Atrial Rate : 70 BPM P-R Int : 192 ms QRS Dur : 82 ms QT Int : 376 ms P-R-T Axes : 53 74 29 degrees QTcB Int : 406 ms Normal sinus rhythm Normal ECG When compared with ECG of 31-Jan-2025 20:28, MANUAL COMPARISON REQUIRED DATA IS UNCONFIRMED Confirmed by SANDY CANO, BRANDIE ([id number]), graphic editor MARY BALTAZAR ([id number]) on 02/01/2025 9:30:18 AM Referred By: MARQUES Confirmed By: BRANDIE DELGADO MD
--- NOTE | 2025-02-01 00:26 | ED.RN ---
ATTEMPTED TO CALL AND UPDATE GUARDIAN ABOUT PT ADMISSION BUT WITH NO ANSWER AT THIS TIME.
[2025-02-01 01:20] LABS: Reflex Lactate? Y
[2025-02-01] MEDS: 0.9% Normal Saline (1000mL) 1,000 ML 100 ML IV (01:33)
[2025-02-01] MEDS: Vancomycin HCl 2,000 MG in 0.9% Normal Saline (500mL Bag) 500 ML 250 MG IV (01:34)
[2025-02-01 01:44] LABS: Procalcitonin 0.16 ng/mL (<=0.10)
--- NOTE | 2025-02-01 01:53 | PCM.RX.CS ---
Consult Antibiotic Management Pharmacy has been consulted to manage selected antibiotic: Vancomycin Type of Intervention Type of Consult: New start Labs Labs: Sodium 145 mmol/L (133-145) 01/31/25 21:12 Potassium 4.3 mmol/L (3.3-5.1) 01/31/25 21:12 Chloride 105 mmol/L (98-108) 01/31/25 21:12 Carbon Dioxide 28.3 mmol/L (21.0-32.0) 01/31/25 21:12 Anion Gap 12 (5-15) 01/31/25 21:12 BUN 17 mg/dL (4-19) 01/31/25 21:12 Creatinine 1.17 mg/dL (0.70-1.20) 01/31/25 21:12 Est GFR (MDRD) Non-Af 74 (>60) 01/31/25 21:12 BUN/Creatinine Ratio 14.4 RATIO (10-20) 01/31/25 21:12 Glucose 114 mg/dL (70-99) H 01/31/25 21:12 Dosing Weight Weight used for dosin.5 kg Estimated Creatinine Clearance Estimated Creatinine Clearance: 85.51 Goal Trough Goal Trough: 15-20 mcg/mL Pharmacy Plan for Drug Dosing Pharmacy Plan for Drug Dosing: Pharmacy Service will continue to monitor and adjust dosing as required. LOADING DOSE 2000MG GIVEN 02/01 @ 0134. START 1750MG Q12H AND DRAW TROUGH PRIOR TO 4TH DOSE Follow-Up Labs Follow-Up Labs: Trough: Vancomycin Date/Time Labs Ordered Labs to be done on [date and time ordered]: 02/03 @ 1300
[2025-02-01 04:52] LABS: Allen Test Positive; Base Excess 1 mmol/L (-2 to +2); FI02 50.0; PO2 82 mmHG (75-100); SITE L Radial; SO2 95 % (95-99)
[2025-02-01] MEDS: 0.9% Saline Lock 10 ML Syringe IV ×2 (06:06→22:00)
[2025-02-01 06:22] LABS: Hematocrit 41.2 % (40-54); Hemoglobin 12.2 g/dL (13.0-16.5); Immature Granulocytes Count 0.030 X10^3/uL (0.0-0.0); Mean Corp Hgb Conc 29.6 g/dL (32-36); Mean Corpuscular Volume 88.2 fL (80-94); Mean Platelet Vol. 10.2 fl (6.2-12.0); NRBC Flagged by Analyzer 0 % (0-5); POSITIVE DIFFERENTIAL YES; Platelet Count 207 K/mm3 (150-450); RBC Distribution Width CV 15.3 % (11.6-14.6); RBC Distribution Width SD 49.1 fl (35.1-43.9); Red Blood Count 4.67 M/mm3 (4.6-6.2); White Blood Count 9.7 K/mm3 (4.4-11.0)
[2025-02-01] MEDS: guaiFENesin 10 ML UDC (200MG/10ML) 20 ML PO ×2 (06:38→11:21)
[2025-02-01 06:59] LABS: AST(SGOT) 18 U/L (<=37); Alanine Aminotransfer ALT/SGPT 7 U/L (<=46); Albumin, Serum 4.1 g/dL (3.5-5.0); Alkaline Phosphatase 130 U/L (40-129); Anion Gap 15 (5-15); BUN 15 mg/dL (4-19); BUN/Creat Ratio 13.3 RATIO (10-20); Calcium,Total 9.2 mg/dL (7.6-11.0); Carbon Dioxide 22.1 mmol/L (21.0-32.0); Chloride 104 mmol/L (98-108); Estimated Creatinine Clearance 86.49 ml/min (50-250); Globulin 2.6 g/dL (2.2-4.2); Glucose 195 mg/dL (70-99); Potassium 4.6 mmol/L (3.3-5.1)
[2025-02-01] MEDS: Senna/Docusate Sodium 1 Tablet PO (09:52)
[2025-02-01] MEDS: Aspirin E.C. 81 MG Tablet PO (09:55)
[2025-02-01] MEDS: VORTIOXETINE HYDROBROMIDE 20 MG TABLET PO (10:01)
--- NOTE | 2025-02-01 10:04 | CASEMGMT ---
Social Work Pt is admitted from [facility] and has a legal guardian, Ileana Sullivan - sister. SW spoke with legal guardian who confirms plan is to return to [facility] at time of discharge. DC assistance updated and to send clinical updates to [facility]. Plan: Return to [facility], when medically ready OTONIEL Yadav
--- NOTE | 2025-02-01 10:18 | PCM.PN.HOSP ---
Reason for Visit Chief Complaint: Cough, dyspnea, wheezing. 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 Chest x-ray demonstrated pulmonary edema with inability to exclude right lower lobe opacity. Patient was started on antibiotic therapy for suspected pneumonia with gram-negative organisms and admitted to a monitored bed for further management, Objective Data Objective Data Vital Signs: Vital Signs Temp Pulse Resp BP Pulse Ox O2 Del Method O2 Flow Rate 98.4 F 66 34 H 128/74 H 90 Airvo 45 02/01/25 06:00 02/01/25 07:13 02/01/25 07:13 02/01/25 07:00 02/01/25 07:55 02/01/25 07:55 02/01/25 07:55 FiO2 50 02/01/25 07:55 Oxygen Flow Rate (L/min) 45 Oxygen Delivery Method Airvo Weight: 100.5 kg Body Mass Index (BMI) 34.7 Intake & Output: Intake and Output for Last 24 Hours 01/30/25 01/31/25 02/01/25 23:59 23:59 23:59 Intake Total 1690 / 1690 Output Total 900 / 900 Balance 790 / 790 Lab / Micro Data 02/01/25 06:02 02/01/25 06:02 Labs: Laboratory Results - last 24 hr 01/31/25 21:12: WBC 10.2, RBC 4.95, Hgb 13.0, Hct 42.7, MCV 86.3, MCH 26.3 L, MCHC 30.4 L, RDW Std Deviation 48.1 H, RDW Coeff of Thomas 15.4 H, Plt Count 239, MPV 10.1, Immature Gran % (Auto) 0.300, Neut % (Auto) 67.9, Lymph % (Auto) 20.8, White % (Auto) 8.8, Eos % (Auto) 1.8, Baso % (Auto) 0.4, Absolute Neuts (auto) 6.9, Absolute Lymphs (auto) 2.12, Nucleated RBC % 0, PT 13.9, INR 1.1, APTT 26.2, Sodium 145, Potassium 4.3, Chloride 105, Carbon Dioxide 28.3, Anion Gap 12, BUN 17, Creatinine 1.17, Estim Creat Clear Calc 83.51, Est GFR (MDRD) Non-Af 74, BUN/Creatinine Ratio 14.4, Glucose 114 H, Lactic Acid 2.2 H*, Calcium 9.4, Total Bilirubin 0.27, AST 10, ALT < 5, Alkaline Phosphatase 143 H, Total Protein 7.1, Albumin 4.3, Globulin 2.8, Albumin/Globulin Ratio 1.5, Procalcitonin 0.16 H 01/31/25 22:54: Urine Color Yellow, Urine Clarity Clear, Urine pH 5.0, Ur Specific [place] 1.020, Urine Protein 30 H, Urine Glucose (UA) Normal, Urine Ketones Negative, Urine Occult Blood Negative, Urine Nitrite Negative, Urine Bilirubin 1 H, Urine Urobilinogen 4 H, Ur Leukocyte Esterase 25 H, Urine RBC 0 SEEN, Urine WBC 0 SEEN, Ur Squamous Epith Cells 0 SEEN, Urine Bacteria RARE, Urine Mucus 0 SEEN 02/01/25 01:43: POC Glucose 186 H 02/01/25 01:47: Lactic Acid 2.9 H* 02/01/25 06:00: POC Glucose 176 H 02/01/25 06:02: WBC 9.7, RBC 4.67, Hgb 12.2 L, Hct 41.2, MCV 88.2, MCH 26.1 L, MCHC 29.6 L, RDW Std Deviation 49.1 H, RDW Coeff of Thomas 15.3 H, Plt Count 207, MPV 10.2, Immature Gran % (Auto) 0.300, Neut % (Auto) 94.2 H, Lymph % (Auto) 4.3 L, White % (Auto) 1.1, Eos % (Auto) 0.0, Baso % (Auto) 0.1, Absolute Neuts (auto) 9.2 H, Absolute Lymphs (auto) 0.42 L, Nucleated RBC % 0, Sodium 141, Potassium 4.6, Chloride 104, Carbon Dioxide 22.1, Anion Gap 15, BUN 15, Creatinine 1.09, Estim Creat Clear Calc 86.49, Est GFR (MDRD) Non-Af 80, BUN/Creatinine Ratio 13.3, Glucose 195 H, Calcium 9.2, Total Bilirubin 0.25, AST 18, ALT 7, Alkaline Phosphatase 130 H, Total Protein 6.7, Albumin 4.1, Globulin 2.6, Albumin/Globulin Ratio 1.6 Micro: Microbiology 01/31/25 23:50 Mucosa - Nasopharyngeal Respiratory Panel (PCR) - Final Rhinovirus ABG Data ABG results: ABG 01/31/25 02/01/25 22:18 04:48 Specimen Type ART ART Sample Site L Radial L Radial pH 7.32 L 7.31 L Bicarbonate Actual 21.0 L 27.5 H Total CO2 22 29 Base Excess -5 L 1 O2 Saturation 91 L 95 O2 % 6.0 50.0 ABG pCO2 40.8 54.3 H ABG pO2 65 L 82 Joel Test Positive Positive O2 Delivery Device Cannula CPAP Vent Mode Not entered Not entered Radiography Diagnostic Testing: Radiology Impression Shoulder X-Ray 01/31/25 11:46 IMPRESSION: Widened cc ligamentous space consistent with ligamentous injury. Correlate as to acuity. Reading Location: [place] [id number] Chest X-Ray 01/31/25 21:32 IMPRESSION: Mild pulmonary edema. Right lower lobe opacity not excluded. Stable mild cardiomegaly. Low riding right humerus; dislocation is not entirely excluded.. Reading Location: [facility] Physical Exam Narrative GENERAL: cooperative HEENT: Atraumatic; normocephalic EYES; Anicteric, Normal Conjunctiva NECK; supple, normal thyroid, RESPIRATORY: Diminished to auscultation CARDIOVASCULAR: Regular S1 S2, GI: soft, normoactive bowel sounds, : No Renal angle tenderness; EXTREMITIES: No edema, no clubbing, MUSCULOSKELETAL: Wasting of right hand NEURO: Awake; right-sided hemiparesis SKIN: No Rash PSYCH; Flat affect Assessment & Plan Assessment/Plan (1) Acute exacerbation of chronic obstructive pulmonary disease: PLAN: Plan Patient is a 55-year-old gentleman with history of CVA with residual right-sided hemiplegia and dysarthria resident at [facility] brought in with shortness of breath and altered mental status. Chest x-ray demonstrated pulmonary edema with inability to exclude right lower lobe opacity. Patient was started on antibiotic therapy for suspected pneumonia with gram-negative organisms and admitted to a monitored bed for further management, 1. Acute metabolic encephalopathy ? Secondary to acute hypoxic respiratory failure from pneumonia as well as suspected CHF 2. Acute hypoxic respiratory failure ? Requiring high flow oxygen via Airvo. This was thought to be secondary to pneumonia admitted to a monitored bed for treatment of the underlying etiology 3. Pneumonia with suspected gram-negative organisms ? Blood and sputum cultures sent. Patient placed on levofloxacin and placed on oxygen titrated to keep Pulse Ox greater than 90. Viral respiratory panel in addition to COVID also obtained on admission. Patient viral respiratory panel came back positive for rhinovirus 4. Suspected congestive heart failure ? Patient is currently being managed on a monitored bed ordered proBNP as well as 2D echo patient started on strict input and output, daily weight, fluid restriction as well as diuretic therapy 5. 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 Dyslipidemia ?Patient is on statin therapy, continued at home dose 7. Diabetes mellitus type II -patient's oral hypoglycemics held. Placed on Accu-Cheks a.c. and at bedtime and covered with sliding scale insulin 8. Class I obesity with BMI of 34.7 ? Complicating care 9. Tobacco dependence ? Counseled on cessation, offered nicotine patch for tobacco cravings 10. Mood disorder ? With history of anxiety depression and bipolar disorder did continue patient psychotropic medications 11. Abnormal x-ray involving the right shoulder ? Imaging studies on admission did demonstrate low riding right humerus; dislocation could not be excluded. Subsequent repeat dedicated shoulder x-ray demonstrated Widened cc ligamentous space consistent with ligamentous injury. Management PT OT as tolerated in addition to pain meds 12. DVT prophylaxis ? On enoxaparin Time spent in the patient's overall evaluation,decision-making process, review of diagnostic data, adjustment of management, discussion with other providers, nursing nursing and ancillary staff involved in patient's care documentation,50 Minutes Charges/Coding Visit Charges Inpatient E&M: 914[address] [facility] Hosp L3
[2025-02-01] MEDS: Vancomycin HCl 1,750 MG in 0.9% Normal Saline (500mL Bag) 500 ML 250 MG IV (13:27)
--- NOTE | 2025-02-01 15:00 | CASEMGMT ---
Discharge Planning Updates faxed to [facility]. Fax confirmation rec'd. Nina Tran DC Planning Asst.
[2025-02-01] MEDS: levoFLOXacin IV 750 MG/150 ML BAG 100 MG IV (21:59)
[2025-02-02] VITALS (25 sets, daily range): BP systolic 110–143; BP diastolic 74–91; PULSE 50–87; RESP 13–24; TEMP 36.4–37.1; O2SAT 89–96; BMI 35.6
[2025-02-02] MEDS: Vancomycin HCl 1,750 MG in 0.9% Normal Saline (500mL Bag) 500 ML 250 MG IV ×2 (01:45→14:24)
--- NOTE | 2025-02-02 07:23 | PCM.PN.HOSP ---
Reason for Visit Chief Complaint: Cough, dyspnea, wheezing. Subjective Subjective Patient has significant response to diuretic therapy currently negative fluid balance of 2.5 L over the past 24 hours. Objective Data Objective Data Vital Signs: Vital Signs Temp Pulse Resp BP Pulse Ox O2 Del Method O2 Flow Rate 98.4 F 58 L 19 H 128/81 H 94 Airvo 35 02/02/25 04:00 02/02/25 05:00 02/02/25 05:00 02/02/25 05:00 02/02/25 05:00 02/02/25 05:00 02/01/25 19:00 FiO2 40 02/02/25 05:00 Oxygen Flow Rate (L/min) 35 Oxygen Delivery Method Airvo Weight: 103.2 kg Body Mass Index (BMI) 35.6 Intake & Output: Intake and Output for Last 24 Hours 01/31/25 02/01/25 02/02/25 23:59 23:59 23:59 Intake Total 4130 / 4570 1295 / 1295 Output Total 2300 / 4100 3000 / 3000 Balance 1830 / 470 -1705 / -1705 Lab / Micro Data 02/02/25 06:30 02/02/25 06:30 Labs: Laboratory Results - last 24 hr 02/01/25 01:43: POC Glucose 186 H 02/01/25 11:14: POC Glucose 257 H 02/01/25 16:16: POC Glucose 250 H 02/01/25 22:22: POC Glucose 224 H 02/02/25 06:24: POC Glucose 212 H Micro: Microbiology 01/31/25 23:50 Mucosa - Nasopharyngeal Respiratory Panel (PCR) - Final Rhinovirus Physical Exam Narrative GENERAL: cooperative HEENT: Atraumatic; normocephalic EYES; Anicteric, Normal Conjunctiva NECK; supple, normal thyroid, RESPIRATORY: Diminished to auscultation CARDIOVASCULAR: Regular S1 S2, GI: soft, normoactive bowel sounds, : No Renal angle tenderness; EXTREMITIES: No edema, no clubbing, MUSCULOSKELETAL: Wasting of right hand NEURO: Awake; right-sided hemiparesis SKIN: No Rash PSYCH; Flat affect Assessment & Plan Assessment/Plan (1) Acute exacerbation of chronic obstructive pulmonary disease: PLAN: Plan Patient is a 55-year-old gentleman with history of CVA with residual right-sided hemiplegia and dysarthria [facility] at [facility] brought in with shortness of breath and altered mental status. Chest x-ray demonstrated pulmonary edema with inability to exclude right lower lobe opacity. Patient was started on antibiotic therapy for suspected pneumonia with gram-negative organisms and admitted to a monitored bed for further management, 1. Acute metabolic encephalopathy ? Secondary to acute hypoxic respiratory failure from pneumonia as well as suspected CHF ? 02/02/2025; patient appears to be back to his baseline 2. Acute hypoxic respiratory failure ? Requiring high flow oxygen via Airvo. This was thought to be secondary to pneumonia admitted to a monitored bed for treatment of the underlying etiology ? 02/02/2025; patient remains on high flow oxygen?Airvo plan is to attempt to wean patient off 3. Pneumonia with suspected gram-negative organisms ? Blood and sputum cultures sent. Patient placed on levofloxacin and placed on oxygen titrated to keep Pulse Ox greater than 90. Viral respiratory panel in addition to COVID also obtained on admission. Patient viral respiratory panel came back positive for rhinovirus 4. Suspected congestive heart failure ? Patient is currently being managed on a monitored bed ordered proBNP as well as 2D echo patient started on strict input and output, daily weight, fluid restriction as well as diuretic therapy ? 02/02/2025Patient has significant response to diuretic therapy currently negative fluid balance of 2.5 L over the past 24 hours. 2 D echo was ordered the day prior results pending 5. 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 Dyslipidemia ?Patient is on statin therapy, continued at home dose 7. Diabetes mellitus type II -patient's oral hypoglycemics held. Placed on Accu-Cheks a.c. and at bedtime and covered with sliding scale insulin 8. Class I obesity with BMI of 34.7 ? Complicating care 9. Tobacco dependence ? Counseled on cessation, offered nicotine patch for tobacco cravings 10. Mood disorder ? With history of anxiety depression and bipolar disorder did continue patient psychotropic medications 11. Abnormal x-ray involving the right shoulder ? Imaging studies on admission did demonstrate low riding right humerus; dislocation could not be excluded. Subsequent repeat dedicated shoulder x-ray demonstrated Widened cc ligamentous space consistent with ligamentous injury. Management PT OT as tolerated in addition to pain meds 12. DVT prophylaxis ? On enoxaparin 13. Hypophosphatemia ? Corrected per protocol repeat phosphate levels ordered for a.m. 14. Anemia ? Secondary to chronic disorder monitoring H&H and transfuse if patient becomes symptomatic or hemoglobin falls below 7 Charges/Coding Visit Charges Inpatient E&M: 96833 Subs Hosp L3
[2025-02-02 07:36] LABS: Hematocrit 41.4 % (40-54); Hemoglobin 12.4 g/dL (13.0-16.5); Immature Granulocytes Count 0.040 X10^3/uL (0.0-0.0); Mean Corp Hgb Conc 30.0 g/dL (32-36); Mean Corpuscular Volume 87.0 fL (80-94); Mean Platelet Vol. 10.7 fl (6.2-12.0); NRBC Flagged by Analyzer 0 % (0-5); Platelet Count 221 K/mm3 (150-450); RBC Distribution Width CV 15.3 % (11.6-14.6); RBC Distribution Width SD 48.5 fl (35.1-43.9); Red Blood Count 4.76 M/mm3 (4.6-6.2); White Blood Count 11.7 K/mm3 (4.4-11.0)
[2025-02-02 08:14] LABS: Anion Gap 12 (5-15); BUN 15 mg/dL (4-19); BUN/Creat Ratio 15.7 RATIO (10-20); Calcium,Total 9.7 mg/dL (7.6-11.0); Carbon Dioxide 25.8 mmol/L (21.0-32.0); Chloride 101 mmol/L (98-108); Estimated Creatinine Clearance 102.75 ml/min (50-250); Glucose 201 mg/dL (70-99); Magnesium 1.6 mg/dL (1.5-2.2); Potassium 4.2 mmol/L (3.3-5.1)
[2025-02-02 08:31] LABS: Pro- Brain NATRIURETIC PEPTIDE 420 pg/mL (<=900)
[2025-02-02] MEDS: Aspirin E.C. 81 MG Tablet PO (10:13)
[2025-02-02] MEDS: Senna/Docusate Sodium 1 Tablet PO (10:13)
--- NOTE | 2025-02-02 10:14 | CASEMGMT ---
Discharge Planning Domonique @ [facility] Manuel updated that pt could return over the weekend. Green Sheet completed. Nina Tran DC Planning Asst.
[2025-02-02] MEDS: VORTIOXETINE HYDROBROMIDE 20 MG TABLET PO (11:24)
[2025-02-02] MEDS: Na Biphos/Potassium Phosphate PACKET 1 PACKET PO ×2 (11:25→21:02)
[2025-02-02] MEDS: 0.9% Saline Lock 10 ML Syringe IV ×2 (14:27→21:13)
[2025-02-02] MEDS: levoFLOXacin IV 750 MG/150 ML BAG 100 MG IV (21:04)
[2025-02-03] MEDS: Vancomycin HCl 1,750 MG in 0.9% Normal Saline (500mL Bag) 500 ML 250 MG IV (01:28)
[2025-02-03 03:06] VITALS: BMI 36.3
[2025-02-03 06:00] VITALS: PULSE 59; RESP 16; O2SAT 96
[2025-02-03 06:45] VITALS: PULSE 69; RESP 18; O2SAT 94
[2025-02-03 06:48] LABS: Hematocrit 40.1 % (40-54); Hemoglobin 12.3 g/dL (13.0-16.5); Immature Granulocytes Count 0.050 X10^3/uL (0.0-0.0); Mean Corp Hgb Conc 30.7 g/dL (32-36); Mean Corpuscular Volume 85.5 fL (80-94); Mean Platelet Vol. 10.5 fl (6.2-12.0); NRBC Flagged by Analyzer 0 % (0-5); Platelet Count 237 K/mm3 (150-450); RBC Distribution Width CV 15.2 % (11.6-14.6); RBC Distribution Width SD 47.6 fl (35.1-43.9); Red Blood Count 4.69 M/mm3 (4.6-6.2); White Blood Count 12.0 K/mm3 (4.4-11.0)
[2025-02-03 06:53] LABS: Anion Gap 12 (5-15); BUN 21 mg/dL (4-19); BUN/Creat Ratio 19.3 RATIO (10-20); Calcium,Total 9.3 mg/dL (7.6-11.0); Carbon Dioxide 27.1 mmol/L (21.0-32.0); Chloride 97 mmol/L (98-108); Estimated Creatinine Clearance 88.53 ml/min (50-250); Glucose 337 mg/dL (70-99); Potassium 4.2 mmol/L (3.3-5.1)
--- NOTE | 2025-02-03 07:10 | PN.HOSP_ITS ---
Reason for Visit Chief Complaint: Cough, dyspnea, wheezing. Subjective Subjective Patient continues to diurese well. Plan is to discontinue IV Lasix and start patient on p.o. Lasix. Patient 2D echo still pending Objective Data Objective Data Vital Signs: Vital Signs Temp Pulse Resp BP Pulse Ox O2 Del Method O2 Flow Rate 98.3 F 69 18 134/86 H 94 Nasal Cannula 2 02/02/25 22:00 02/03/25 06:45 02/03/25 06:45 02/02/25 22:00 02/03/25 06:45 02/03/25 06:45 02/03/25 06:45 FiO2 40 02/02/25 11:00 Oxygen Flow Rate (L/min) 2 Oxygen Delivery Method Nasal Cannula Weight: 105.2 kg Body Mass Index (BMI) 36.3 Intake & Output: Intake and Output for Last 24 Hours 02/01/25 02/02/25 02/03/25 23:59 23:59 23:59 Intake Total 4130 / 4570 2960 / 3640 1655 / 1655 Output Total 2300 / 4100 5250 / 6350 2950 / 2950 Balance 1830 / 470 -2290 / -2710 -1295 / -1295 Lab / Micro Data 02/03/25 05:27 02/03/25 05:27 Labs: Laboratory Results - last 24 hr 02/02/25 06:30: WBC 11.7 H, RBC 4.76, Hgb 12.4 L, Hct 41.4, MCV 87.0, MCH 26.1 L , MCHC 30.0 L, RDW Std Deviation 48.5 H, RDW Coeff of Thomas 15.3 H, Plt Count 221, MPV 10.7, Immature Gran % (Auto) 0.300, Neut % (Auto) 86.0 H, Lymph % (Auto) 7.5 L, Clarke % (Auto) 6.1, Eos % (Auto) 0.0, Baso % (Auto) 0.1, Absolute Neuts (auto) 10.1 H, Absolute Lymphs (auto) 0.88, Nucleated RBC % 0, Sodium 139, Potassium 4.2, Chloride 101, Carbon Dioxide 25.8, Anion Gap 12, BUN 15, Creatinine 0.93, Estim Creat Clear Calc 102.75, Est GFR (MDRD) Non-Af 97, BUN/Creatinine Ratio 15.7, Glucose 201 H, Calcium 9.7, Phosphorus 2.6 L, Magnesium 1.6, NT pro BNP II 420 02/02/25 09:49: Phosphorus 3.3 02/02/25 11:21: POC Glucose 212 H 02/02/25 16:53: POC Glucose 209 H 02/02/25 20:46: POC Glucose 389 H 02/03/25 05:27: WBC 12.0 H, RBC 4.69, Hgb 12.3 L, Hct 40.1, MCV 85.5, MCH 26.2 L , MCHC 30.7 L, RDW Std Deviation 47.6 H, RDW Coeff of Thomas 15.2 H, Plt Count 237, MPV 10.5, Immature Gran % (Auto) 0.400, Neut % (Auto) 85.0 H, Lymph % (Auto) 7.9 L, Clarke % (Auto) 6.6, Eos % (Auto) 0.0, Baso % (Auto) 0.1, Absolute Neuts (auto) 10.2 H, Absolute Lymphs (auto) 0.95, Nucleated RBC % 0, Sodium 136, Potassium 4.2, Chloride 97 L, Carbon Dioxide 27.1, Anion Gap 12, BUN 21 H, Creatinine 1.09, Estim Creat Clear Calc 88.53, Est GFR (MDRD) Non-Af 80, BUN/Creatinine Ratio 19.3, Glucose 337 H, Calcium 9.3 02/03/25 05:56: POC Glucose 336 H Micro: Microbiology 01/31/25 21:45 Blood Culture (Wb) - Left Forearm Blood Culture - Preliminary No growth in 48 hours. 01/31/25 21:12 Blood Culture (Wb) - Left Hand Blood Culture - Preliminary No growth in 48 hours. 01/31/25 22:54 Urine, Random Legionella Antigen - Final 01/31/25 22:54 Urine, Random Streptococcus pneumoniae Antigen (M - Final 01/31/25 23:50 Mucosa - Nasopharyngeal Respiratory Panel (PCR) - Final Rhinovirus Physical Exam Narrative GENERAL: cooperative HEENT: Atraumatic; normocephalic EYES; Anicteric, Normal Conjunctiva NECK; supple, normal thyroid, RESPIRATORY: Diminished to auscultation CARDIOVASCULAR: Regular S1 S2, GI: soft, normoactive bowel sounds, : No Renal angle tenderness; EXTREMITIES: No edema, no clubbing, MUSCULOSKELETAL: Wasting of right hand NEURO: Awake; right-sided hemiparesis SKIN: No Rash PSYCH; Flat affect Assessment & Plan Assessment/Plan (1) Acute exacerbation of chronic obstructive pulmonary disease: PLAN: Plan Patient is a 55-year-old gentleman with 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 Chest x-ray demonstrated pulmonary edema with inability to exclude right lower lobe opacity. Patient was started on antibiotic therapy for suspected pneumonia with gram-negative organisms and admitted to a monitored bed for further management, 1. Acute metabolic encephalopathy ? Secondary to acute hypoxic respiratory failure from pneumonia as well as suspected CHF ? 02/02/2025; patient appears to be back to his baseline 2. Acute hypoxic respiratory failure ? Requiring high flow oxygen via Airvo. This was thought to be secondary to pneumonia admitted to a monitored bed for treatment of the underlying etiology ? 02/02/2025; patient remains on high flow oxygen?Airvo plan is to attempt to wean patient off 3. Pneumonia with suspected gram-negative organisms ? Blood and sputum cultures sent. Patient placed on levofloxacin and placed on oxygen titrated to keep Pulse Ox greater than 90. Viral respiratory panel in addition to COVID also obtained on admission. Patient viral respiratory panel came back positive for rhinovirus 4. Suspected congestive heart failure ? Patient is currently being managed on a monitored bed ordered proBNP as well as 2D echo patient started on strict input and output, daily weight, fluid restriction as well as diuretic therapy ? 02/02/2025Patient has significant response to diuretic therapy currently negative fluid balance of 2.5 L over the past 24 hours. 2 D echo was ordered the day prior results pending ? 02/03/2025; adjusted Lasix dose 5. 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 Dyslipidemia ?Patient is on statin therapy, continued at home dose 7. Diabetes mellitus type II -patient's oral hypoglycemics held. Placed on Accu-Cheks a.c. and at bedtime and covered with sliding scale insulin 8. Class I obesity with BMI of 34.7 ? Complicating care 9. Tobacco dependence ? Counseled on cessation, offered nicotine patch for tobacco cravings 10. Mood disorder ? With history of anxiety depression and bipolar disorder did continue patient psychotropic medications 11. Abnormal x-ray involving the right shoulder ? Imaging studies on admission did demonstrate low riding right humerus; dislocation could not be excluded. Subsequent repeat dedicated shoulder x-ray demonstrated Widened cc ligamentous space consistent with ligamentous injury. Management PT OT as tolerated in addition to pain meds 12. DVT prophylaxis ? On enoxaparin 13. Hypophosphatemia ? Corrected per protocol repeat phosphate levels ordered for a.m. 14. Anemia ? Secondary to chronic disorder monitoring H&H and transfuse if patient becomes symptomatic or hemoglobin falls below 7 Charges/Coding Visit Charges Inpatient E&M: 54952 Subs Hosp L2
[2025-02-03] MEDS: Aspirin E.C. 81 MG Tablet PO (08:24)
[2025-02-03] MEDS: Senna/Docusate Sodium 1 Tablet PO (08:24)
[2025-02-03] MEDS: Na Biphos/Potassium Phosphate PACKET 1 PACKET PO (08:26)
[2025-02-03 08:58] VITALS: BP 121/88; PULSE 58; RESP 16; TEMP 36.6; O2SAT 94
[2025-02-03] MEDS: VORTIOXETINE HYDROBROMIDE 20 MG TABLET PO (10:20)
[2025-02-03 10:48] VITALS: PULSE 76; RESP 18
--- NOTE | 2025-02-03 11:16 | NURSING ---
Entered patients room to check blood sugar level. Patient was calmly watching TV but became agitated when I entered the room. Patient raised voice and complained that he wanted to go home. I explained that Dr Alberts had some more tests ordered but was thinking about discharging him if the results were acceptable. Patient then refused to have his blood sugar checked and refused to take any medications. Dr Alberts notified that patient refused.
[2025-02-03 13:56] LABS: Vancomycin, Trough Level 24.5 ug/mL (5.0-15.0)
--- NOTE | 2025-02-03 14:20 | PCM.RX.CS ---
Consult Antibiotic Management Pharmacy has been consulted to manage selected antibiotic: Vancomycin Type of Intervention Type of Consult: Follow-up Prior Doses of Antibiotics Prior Doses of Antibiotics Received/Current Regimen: current dose is 1750mg IV q12h Labs Labs: Sodium 136 mmol/L (133-145) 02/03/25 05:27 Potassium 4.2 mmol/L (3.3-5.1) 02/03/25 05:27 Chloride 97 mmol/L (98-108) L 02/03/25 05:27 Carbon Dioxide 27.1 mmol/L (21.0-32.0) 02/03/25 05:27 Anion Gap 12 (5-15) 02/03/25 05:27 BUN 21 mg/dL (4-19) H 02/03/25 05:27 Creatinine 1.09 mg/dL (0.70-1.20) 02/03/25 05:27 Est GFR (MDRD) Non-Af 80 (>60) 02/03/25 05:27 BUN/Creatinine Ratio 19.3 RATIO (10-20) 02/03/25 05:27 Glucose 337 mg/dL (70-99) H 02/03/25 05:27 Vancomycin Trough 24.5 ug/mL (5.0-15.0) H 02/03/25 13:23 Microbiology Microbiology: Microbiology 02/01/25 06:10 Nasal Secretion MRSA (PCR) - Final 01/31/25 21:45 Blood Culture (Wb) - Left Forearm Blood Culture - Preliminary No growth in 48 hours. 01/31/25 21:12 Blood Culture (Wb) - Left Hand Blood Culture - Preliminary No growth in 48 hours. 01/31/25 22:54 Urine, Random Legionella Antigen - Final 01/31/25 22:54 Urine, Random Streptococcus pneumoniae Antigen (M - Final 01/31/25 23:50 Mucosa - Nasopharyngeal Respiratory Panel (PCR) - Final Rhinovirus Dosing Weight Weight used for dosin.2 kg Estimated Creatinine Clearance Estimated Creatinine Clearance: 89 ml/min Goal Trough Goal Trough: 15-20 mcg/mL Pharmacy Plan for Drug Dosing Pharmacy Plan for Drug Dosing: The vanc trough drawn at 13:23 today (approx 12 hours after the previous dose) was 24.5 mcg/ml. This is above goal range so will hold current dose. Will check a random level in 12 hours to see if dosing can be resumed at that time. Pharmacy Service will continue to monitor and adjust dosing as required. Follow-Up Labs Follow-Up Labs: Trough: Vancomycin (random) Date/Time Labs Ordered Labs to be done on [date and time ordered]: 02/04/25 02:00
--- NOTE | 2025-02-03 14:38 | DS.PCM_ITS ---
Providers Date of Admission: 01/31/25 Primary Care Physician: Dr. Kamar Bright MD Reason For Visit: ACUTE HYPOXIA, COPD EXAC, ? 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 Chest x-ray demonstrated pulmonary edema with inability to exclude right lower lobe opacity. Patient was started on antibiotic therapy for suspected pneumonia with gram-negative organisms and admitted to a monitored bed for further management, 1. Acute metabolic encephalopathy ? Secondary to acute hypoxic respiratory failure from pneumonia as well as suspected CHF ? 02/02/2025; patient appears to be back to his baseline 2. Acute hypoxic respiratory failure ? Requiring high flow oxygen via Airvo. This was thought to be secondary to pneumonia admitted to a monitored bed for treatment of the underlying etiology ? 02/02/2025; patient remains on high flow oxygen?Airvo plan is to attempt to wean patient off 3. Pneumonia with suspected gram-negative organisms ? Blood and sputum cultures sent. Patient placed on levofloxacin and placed on oxygen titrated to keep Pulse Ox greater than 90. Viral respiratory panel in addition to COVID also obtained on admission. Patient viral respiratory panel came back positive for rhinovirus 4. Acute congestive heart failure with suspected preserved ejection fraction ? Patient is currently being managed on a monitored bed ordered proBNP as well as 2D echo patient started on strict input and output, daily weight, fluid restriction as well as diuretic therapy ? 02/02/2025Patient has significant response to diuretic therapy currently negative fluid balance of 2.5 L over the past 24 hours. 2 D echo was ordered the day prior results pending ? 02/03/2025; adjusted Lasix dose; patient rejected 2D echo evaluation 5. 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 Dyslipidemia ?Patient is on statin therapy, continued at home dose 7. Diabetes mellitus type II -patient's oral hypoglycemics held. Placed on Accu-Cheks a.c. and at bedtime and covered with sliding scale insulin 8. Class I obesity with BMI of 34.7 ? Complicating care 9. Tobacco dependence ? Counseled on cessation, offered nicotine patch for tobacco cravings 10. Mood disorder ? With history of anxiety depression and bipolar disorder did continue patient psychotropic medications 11. Abnormal x-ray involving the right shoulder ? Imaging studies on admission did demonstrate low riding right humerus; dislocation could not be excluded. Subsequent repeat dedicated shoulder x-ray demonstrated Widened cc ligamentous space consistent with ligamentous injury. Management PT OT as tolerated in addition to pain meds 12. DVT prophylaxis ? On enoxaparin 13. Hypophosphatemia ? Corrected per protocol repeat phosphate levels ordered for a.m. 14. Anemia ? Secondary to chronic disorder monitoring H&H and transfuse if patient becomes symptomatic or hemoglobin falls below 7 Medications at Discharge Home Medications acetaminophen 325 mg tablet (Aminofen) 650 mg PO Q4H PRN fever or pain 07/31/24 aripiprazole 15 mg tablet (Abilify) 15 mg PO DAILY SCHIZOPHRENIA 07/31/24 aspirin 81 mg tablet,delayed release (Adult Low Dose Aspirin) 81 mg PO DAILY HTN 07/31/24 buspirone 10 mg tablet 10 mg PO TID BIPOLAR 07/31/24 calcium carbonate (Leslye-Beulah Heartburn Chew) 600 mg PO Q6H PRN heartburn 07/31/24 cholecalciferol (vitamin D3) 1,250 mcg (50,000 unit) capsule 1,250 mcg PO QWEEK SUPPLEMENT 07/31/24 gabapentin 100 mg capsule 200 mg PO TID NEUROPATHIC PAIN 07/31/24 lorazepam 1 mg tablet (Ativan) 1 mg PO TID agitation 07/31/24 metformin 1,000 mg tablet 1,000 mg PO BID DM 07/31/24 sennosides 8.6 mg-docusate sodium 50 mg tablet (Colace 2-In-1) 1 tab-cap PO DAILY CONSTIPATION 07/31/24 trazodone 50 mg tablet 50 mg PO QHS BIPOLAR 07/31/24 vortioxetine 20 mg tablet (Trintellix) 20 mg PO DAILY DEPRESSION 07/31/24 atorvastatin 10 mg tablet (Lipitor) 10 mg PO QHS 01/31/25 lorazepam 1 mg tablet (Ativan) 1 mg PO Q8H 01/31/25 albuterol sulfate 2.5 mg/3 mL (0.083 %) solution for nebulization 2.5 mg (3 mL) inhalation Q2H PRN PRN SHORTNESS OF BREATH #0 mL 02/03/25 doxycycline hyclate 100 mg capsule 100 mg PO BID #14 caps 02/03/25 furosemide 40 mg tablet (Lasix) 40 mg PO DAILY #30 tabs 02/03/25 guaifenesin 600 mg tablet, extended release 12 hr (Mucinex) 1,200 mg (2 x 600 mg) PO BID #20 tabs 02/03/25 insulin glargine 100 unit/mL (3 mL) subcutaneous pen (Lantus Solostar U-100 Insulin) 10 unit (0.1 mL) subcut QPM #3 mL 02/03/25 insulin lispro 100 unit/mL subcutaneous pen (Humalog KwikPen (U-100) Insulin) See Protocol subcut ACHS #0 mL 02/03/25 ipratropium 0.5 mg-albuterol 3 mg (2.5 mg base)/3 mL nebulization soln 3 ml inhalation Q4HWA.RT #0 mL 02/03/25 prednisone 20 mg tablet 20 mg PO BID #14 tabs 02/03/25 Hospital Course Summary of Care Provided Minutes Spent on Discharge: 35 Physical Exam Narrative GENERAL: cooperative HEENT: Atraumatic; normocephalic EYES; Anicteric, Normal Conjunctiva NECK; supple, normal thyroid, RESPIRATORY: Diminished to auscultation CARDIOVASCULAR: Regular S1 S2, GI: soft, normoactive bowel sounds, : No Renal angle tenderness; EXTREMITIES: No edema, no clubbing, MUSCULOSKELETAL: Wasting of right hand NEURO: Awake; right-sided hemiparesis SKIN: No Rash PSYCH; Flat affect Weight / BMI Weight Weight: 105.2 kg Body Mass Index (BMI) 36.3 ABG / Lab / Microbiology Data 02/03/25 05:27 02/03/25 05:27 Laboratory: Laboratory Results - last 24 hr 02/02/25 09:49: Phosphorus 3.3 02/02/25 16:53: POC Glucose 209 H 02/02/25 20:46: POC Glucose 389 H 02/03/25 05:27: WBC 12.0 H, RBC 4.69, Hgb 12.3 L, Hct 40.1, MCV 85.5, MCH 26.2 L , MCHC 30.7 L, RDW Std Deviation 47.6 H, RDW Coeff of Thomas 15.2 H, Plt Count 237, MPV 10.5, Immature Gran % (Auto) 0.400, Neut % (Auto) 85.0 H, Lymph % (Auto) 7.9 L, Hart % (Auto) 6.6, Eos % (Auto) 0.0, Baso % (Auto) 0.1, Absolute Neuts (auto) 10.2 H, Absolute Lymphs (auto) 0.95, Nucleated RBC % 0, Sodium 136, Potassium 4.2, Chloride 97 L, Carbon Dioxide 27.1, Anion Gap 12, BUN 21 H, Creatinine 1.09, Estim Creat Clear Calc 88.53, Est GFR (MDRD) Non-Af 80, BUN/Creatinine Ratio 19.3, Glucose 337 H, Calcium 9.3 02/03/25 05:56: POC Glucose 336 H 02/03/25 11:03: POC Glucose 101 02/03/25 13:23: Vancomycin Trough 24.5 H Microbiology: Microbiology 02/01/25 06:10 Nasal Secretion MRSA (PCR) - Final 01/31/25 21:45 Blood Culture (Wb) - Left Forearm Blood Culture - Preliminary No growth in 48 hours. 01/31/25 21:12 Blood Culture (Wb) - Left Hand Blood Culture - Preliminary No growth in 48 hours. 01/31/25 22:54 Urine, Random Legionella Antigen - Final 01/31/25 22:54 Urine, Random Streptococcus pneumoniae Antigen (M - Final 01/31/25 23:50 Mucosa - Nasopharyngeal Respiratory Panel (PCR) - Final Rhinovirus D/C Instructions DC O2, CPAP, BIPAP Needs Home O2 Discharge instructions: Yes Type of respiratory needs?: Oxygen Oxygen frequency: Continuous Continuous oxygen liters per minute: 2 DC home with Oxygen: Yes Home O2 MD Review: I have reviewed the oxygen testing, and the patient qualifies for home oxygen equipment and portability. The patient is mobile in the home and the community. Meaningful Use Info Meaningful Use Meaningful Use Diagnoses (Choose all that apply): CHF CHF NAS/ARB ordered at discharge?: No Reason NAS/ARB not ordered?: Normal EF (Patient declined 2D echo evaluation) Documented LVEF (%): 0 Discharge Plan Admission Admit Date/Time: 01/31/25 23:03 Attending Provider: Fredo Alberts Primary Care Provider: Kamar Bright Consulting Providers: Rosalva Fowler Discharge Orders/Prescriptions Prescriptions: New ipratropium-albuterol 0.5 mg-3 mg(2.5 mg base)/3 mL Solution For Nebulization 3 ml inhalation Q4HWA.RT Qty: 0 0RF albuterol sulfate 2.5 mg /3 mL (0.083 %) Solution For Nebulization 2.5 mg inhalation Q2H PRN PRN (Reason: SHORTNESS OF BREATH ) Qty: 0 0RF insulin lispro [Humalog KwikPen Insulin] 100 unit/mL Insulin Pen See Protocol subcut ACHS Qty: 0 0RF Protocol: 3. Sliding Scale Insulin Med Dosing Condition: 150-189 mg/dl = 1 unit Condition: 190-229 mg/dl = 2 units Condition: 230-269 mg/dl = 3 units Condition: 270-309 mg/dl = 4 units Condition: 310-349 mg/dl = 5 units Condition: 350-399 mg/dl = 6 units Condition: 400-449 mg/dl = 7 units Condition: Greater than 449 call physician Protocol Text: - Use for Total Daily Dose of Insulin 37-55 units - Obsese, infected, or steroid patients MEDIUM DOSING ALGORITHIM doxycycline hyclate 100 mg capsule 100 mg PO BID Qty: 14 0RF prednisone 20 mg tablet 20 mg PO BID Qty: 14 0RF guaifenesin [Mucinex] 600 mg tablet extended release 12hr 1,200 mg PO BID Qty: 20 0RF furosemide [Lasix] 40 mg tablet 40 mg PO DAILY Qty: 30 0RF insulin glargine [Lantus Solostar U-100 Insulin] 100 unit/mL (3 mL) insulin pen 10 unit subcut QPM Qty: 3 0RF Continued atorvastatin [Lipitor] 10 mg tablet 10 mg PO QHS lorazepam [Ativan] 1 mg tablet 1 mg PO Q8H Trintellix 20 mg tablet 20 mg PO DAILY sennosides-docusate sodium [Colace 2-In-1] 8.6-50 mg tablet 1 tab-cap PO DAILY aripiprazole [Abilify] 15 mg tablet 15 mg PO DAILY aspirin [Adult Low Dose Aspirin] 81 mg tablet,delayed release (DR/EC) 81 mg PO DAILY lorazepam [Ativan] 1 mg tablet 1 mg PO TID buspirone 10 mg tablet 10 mg PO TID gabapentin 100 mg capsule 200 mg PO TID trazodone 50 mg tablet 50 mg PO QHS cholecalciferol (vitamin D3) 1,250 mcg (50,000 unit) capsule 1,250 mcg PO QWEEK Rx Instructions: QMONDAY metformin 1,000 mg tablet 1,000 mg PO BID Leslye-Vitaliy Heartburn Chew 300 mg (750 mg) tablet,chewable 600 mg PO Q6H PRN (Reason: heartburn) acetaminophen [Aminofen] 325 mg tablet 650 mg PO Q4H PRN (Reason: fever or pain) Referrals / Follow Up: Kamar Bright MD [Primary Care Provider] - Within 2 Weeks Disposition Disposition (needs filled in before D/C Order can be placed): Nursing Home Facility Charges/Coding Visit Charges Inpatient E&M: 30442 Disch Hosp >30min
--- NOTE | 2025-02-03 14:42 | PCM.DC.SUM ---
Providers Date of Admission: 01/31/25 Primary Care Physician: Dr. Kamar Bright MD Reason For Visit: ACUTE HYPOXIA, COPD EXAC, ? 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 Chest x-ray demonstrated pulmonary edema with inability to exclude right lower lobe opacity. Patient was started on antibiotic therapy for suspected pneumonia with gram-negative organisms and admitted to a monitored bed for further management, 1. Acute metabolic encephalopathy ? Secondary to acute hypoxic respiratory failure from pneumonia as well as suspected CHF ? 02/02/2025; patient appears to be back to his baseline 2. Acute hypoxic respiratory failure ? Requiring high flow oxygen via Airvo. This was thought to be secondary to pneumonia admitted to a monitored bed for treatment of the underlying etiology ? 02/02/2025; patient remains on high flow oxygen?Airvo plan is to attempt to wean patient off 3. Pneumonia with suspected gram-negative organisms ? Blood and sputum cultures sent. Patient placed on levofloxacin and placed on oxygen titrated to keep Pulse Ox greater than 90. Viral respiratory panel in addition to COVID also obtained on admission. Patient viral respiratory panel came back positive for rhinovirus 4. Acute congestive heart failure with suspected preserved ejection fraction ? Patient is currently being managed on a monitored bed ordered proBNP as well as 2D echo patient started on strict input and output, daily weight, fluid restriction as well as diuretic therapy ? 02/02/2025Patient has significant response to diuretic therapy currently negative fluid balance of 2.5 L over the past 24 hours. 2 D echo was ordered the day prior results pending ? 02/03/2025; adjusted Lasix dose; patient rejected 2D echo evaluation 5. 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 Dyslipidemia ?Patient is on statin therapy, continued at home dose 7. Diabetes mellitus type II -patient's oral hypoglycemics held. Placed on Accu-Cheks a.c. and at bedtime and covered with sliding scale insulin 8. Class I obesity with BMI of 34.7 ? Complicating care 9. Tobacco dependence ? Counseled on cessation, offered nicotine patch for tobacco cravings 10. Mood disorder ? With history of anxiety depression and bipolar disorder did continue patient psychotropic medications 11. Abnormal x-ray involving the right shoulder ? Imaging studies on admission did demonstrate low riding right humerus; dislocation could not be excluded. Subsequent repeat dedicated shoulder x-ray demonstrated Widened cc ligamentous space consistent with ligamentous injury. Management PT OT as tolerated in addition to pain meds 12. DVT prophylaxis ? On enoxaparin 13. Hypophosphatemia ? Corrected per protocol repeat phosphate levels ordered for a.m. 14. Anemia ? Secondary to chronic disorder monitoring H&H and transfuse if patient becomes symptomatic or hemoglobin falls below 7 Medications at Discharge Home Medications acetaminophen 325 mg tablet (Aminofen) 650 mg PO Q4H PRN fever or pain 07/31/24 aripiprazole 15 mg tablet (Abilify) 15 mg PO DAILY SCHIZOPHRENIA 07/31/24 aspirin 81 mg tablet,delayed release (Adult Low Dose Aspirin) 81 mg PO DAILY HTN 07/31/24 buspirone 10 mg tablet 10 mg PO TID BIPOLAR 07/31/24 calcium carbonate (Leslye-[place] Heartburn Chew) 600 mg PO Q6H PRN heartburn 07/31/24 cholecalciferol (vitamin D3) 1,250 mcg (50,000 unit) capsule 1,250 mcg PO QWEEK SUPPLEMENT 07/31/24 gabapentin 100 mg capsule 200 mg PO TID NEUROPATHIC PAIN 07/31/24 lorazepam 1 mg tablet (Ativan) 1 mg PO TID agitation 07/31/24 metformin 1,000 mg tablet 1,000 mg PO BID DM 07/31/24 sennosides 8.6 mg-docusate sodium 50 mg tablet (Colace 2-In-1) 1 tab-cap PO DAILY CONSTIPATION 07/31/24 trazodone 50 mg tablet 50 mg PO QHS BIPOLAR 07/31/24 vortioxetine 20 mg tablet (Trintellix) 20 mg PO DAILY DEPRESSION 07/31/24 atorvastatin 10 mg tablet (Lipitor) 10 mg PO QHS 01/31/25 lorazepam 1 mg tablet (Ativan) 1 mg PO Q8H 01/31/25 albuterol sulfate 2.5 mg/3 mL (0.083 %) solution for nebulization 2.5 mg (3 mL) inhalation Q2H PRN PRN SHORTNESS OF BREATH #0 mL 02/03/25 doxycycline hyclate 100 mg capsule 100 mg PO BID #14 caps 02/03/25 furosemide 40 mg tablet (Lasix) 40 mg PO DAILY #30 tabs 02/03/25 guaifenesin 600 mg tablet, extended release 12 hr (Mucinex) 1,200 mg (2 x 600 mg) PO BID #20 tabs 02/03/25 insulin glargine 100 unit/mL (3 mL) subcutaneous pen (Lantus Solostar U-100 Insulin) 10 unit (0.1 mL) subcut QPM #3 mL 02/03/25 insulin lispro 100 unit/mL subcutaneous pen (Humalog KwikPen (U-100) Insulin) See Protocol subcut ACHS #0 mL 02/03/25 ipratropium 0.5 mg-albuterol 3 mg (2.5 mg base)/3 mL nebulization soln 3 ml inhalation Q4HWA.RT #0 mL 02/03/25 prednisone 20 mg tablet 20 mg PO BID #14 tabs 02/03/25 Weight / BMI Weight Weight: 105.2 kg Body Mass Index (BMI) 36.3 ABG / Lab / Microbiology Data 02/03/25 05:27 02/03/25 05:27 Laboratory: Laboratory Results - last 24 hr 02/02/25 09:49: Phosphorus 3.3 02/02/25 16:53: POC Glucose 209 H 02/02/25 20:46: POC Glucose 389 H 02/03/25 05:27: WBC 12.0 H, RBC 4.69, Hgb 12.3 L, Hct 40.1, MCV 85.5, MCH 26.2 L, MCHC 30.7 L, RDW Std Deviation 47.6 H, RDW Coeff of Thomas 15.2 H, Plt Count 237, MPV 10.5, Immature Gran % (Auto) 0.400, Neut % (Auto) 85.0 H, Lymph % (Auto) 7.9 L, Isabella % (Auto) 6.6, Eos % (Auto) 0.0, Baso % (Auto) 0.1, Absolute Neuts (auto) 10.2 H, Absolute Lymphs (auto) 0.95, Nucleated RBC % 0, Sodium 136, Potassium 4.2, Chloride 97 L, Carbon Dioxide 27.1, Anion Gap 12, BUN 21 H, Creatinine 1.09, Estim Creat Clear Calc 88.53, Est GFR (MDRD) Non-Af 80, BUN/Creatinine Ratio 19.3, Glucose 337 H, Calcium 9.3 02/03/25 05:56: POC Glucose 336 H 02/03/25 11:03: POC Glucose 101 02/03/25 13:23: Vancomycin Trough 24.5 H Microbiology: Microbiology 02/01/25 06:10 Nasal Secretion MRSA (PCR) - Final 01/31/25 21:45 Blood Culture (Wb) - Left Forearm Blood Culture - Preliminary No growth in 48 hours. 01/31/25 21:12 Blood Culture (Wb) - Left Hand Blood Culture - Preliminary No growth in 48 hours. 01/31/25 22:54 Urine, Random Legionella Antigen - Final 01/31/25 22:54 Urine, Random Streptococcus pneumoniae Antigen (M - Final 01/31/25 23:50 Mucosa - Nasopharyngeal Respiratory Panel (PCR) - Final Rhinovirus D/C Instructions DC O2, CPAP, BIPAP Needs Home O2 Discharge instructions: Yes Type of respiratory needs?: Oxygen Oxygen frequency: Continuous Continuous oxygen liters per minute: 2 Discharge Plan Admission Admit Date/Time: 01/31/25 23:03 Attending Provider: Fredo Alberts Primary Care Provider: Kamar Bright Consulting Providers: Rosalva Fowler Discharge Orders/Prescriptions Prescriptions: New ipratropium-albuterol 0.5 mg-3 mg(2.5 mg base)/3 mL Solution For Nebulization 3 ml inhalation Q4HWA.RT Qty: 0 0RF albuterol sulfate 2.5 mg /3 mL (0.083 %) Solution For Nebulization 2.5 mg inhalation Q2H PRN PRN (Reason: SHORTNESS OF BREATH ) Qty: 0 0RF insulin lispro [Humalog KwikPen Insulin] 100 unit/mL Insulin Pen See Protocol subcut ACHS Qty: 0 0RF Protocol: 3. Sliding Scale Insulin Med Dosing Condition: 150-189 mg/dl = 1 unit Condition: 190-229 mg/dl = 2 units Condition: 230-269 mg/dl = 3 units Condition: 270-309 mg/dl = 4 units Condition: 310-349 mg/dl = 5 units Condition: 350-399 mg/dl = 6 units Condition: 400-449 mg/dl = 7 units Condition: Greater than 449 call physician Protocol Text: - Use for Total Daily Dose of Insulin 37-55 units - Obsese, infected, or steroid patients MEDIUM DOSING ALGORITHIM doxycycline hyclate 100 mg capsule 100 mg PO BID Qty: 14 0RF prednisone 20 mg tablet 20 mg PO BID Qty: 14 0RF guaifenesin [Mucinex] 600 mg tablet extended release 12hr 1,200 mg PO BID Qty: 20 0RF furosemide [Lasix] 40 mg tablet 40 mg PO DAILY Qty: 30 0RF insulin glargine [Lantus Solostar U-100 Insulin] 100 unit/mL (3 mL) insulin pen 10 unit subcut QPM Qty: 3 0RF Continued atorvastatin [Lipitor] 10 mg tablet 10 mg PO QHS lorazepam [Ativan] 1 mg tablet 1 mg PO Q8H Trintellix 20 mg tablet 20 mg PO DAILY sennosides-docusate sodium [Colace 2-In-1] 8.6-50 mg tablet 1 tab-cap PO DAILY aripiprazole [Abilify] 15 mg tablet 15 mg PO DAILY aspirin [Adult Low Dose Aspirin] 81 mg tablet,delayed release (DR/EC) 81 mg PO DAILY lorazepam [Ativan] 1 mg tablet 1 mg PO TID buspirone 10 mg tablet 10 mg PO TID gabapentin 100 mg capsule 200 mg PO TID trazodone 50 mg tablet 50 mg PO QHS cholecalciferol (vitamin D3) 1,250 mcg (50,000 unit) capsule 1,250 mcg PO QWEEK Rx Instructions: QMONDAY metformin 1,000 mg tablet 1,000 mg PO BID Emir Heartburn Chew 300 mg (750 mg) tablet,chewable 600 mg PO Q6H PRN (Reason: heartburn) acetaminophen [Aminofen] 325 mg tablet 650 mg PO Q4H PRN (Reason: fever or pain) Referrals / Follow Up: Kamar Bright MD [Primary Care Provider] - Within 2 Weeks Disposition Disposition (needs filled in before D/C Order can be placed): Intermediate Facility Charges/Coding Visit Charges Inpatient E&M: 79327 Disch Hosp >30min
--- NOTE | 2025-02-03 14:44 | PCM.TXEXTCAR ---
Diet Diet Order/Speech Therapy: INPATIENT Hospital Diet / Speech Therapy Order(s) 02/01/25 13:41 Diet: Carbohydrate Controlled Food consistency:: Easy to Chew Liquid Consistency:: Regular/Thin Routine Orders/Code Status Code Status: DNRCC-A DC O2, CPAP, BIPAP needs Home O2 Discharge instructions: Yes Type of respiratory needs?: Oxygen Oxygen frequency: Continuous Continuous oxygen liters per minute: 2 Therapies Physical Therapy: Eval and Treat Occupational Therapy: Eval and Treat Speech Therapy: Eval and Treat Problem/Diagnosis (1) Acute exacerbation of chronic obstructive pulmonary disease: Status: Chronic Code(s): J44.1 - Chronic obstructive pulmonary disease with (acute) exacerbation Plan Patient is a 55-year-old gentleman with 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 Chest x-ray demonstrated pulmonary edema with inability to exclude right lower lobe opacity. Patient was started on antibiotic therapy for suspected pneumonia with gram-negative organisms and admitted to a monitored bed for further management, 1. Acute metabolic encephalopathy ? Secondary to acute hypoxic respiratory failure from pneumonia as well as suspected CHF ? 02/02/2025; patient appears to be back to his baseline 2. Acute hypoxic respiratory failure ? Requiring high flow oxygen via Airvo. This was thought to be secondary to pneumonia admitted to a monitored bed for treatment of the underlying etiology ? 02/02/2025; patient remains on high flow oxygen?Airvo plan is to attempt to wean patient off 3. Pneumonia with suspected gram-negative organisms ? Blood and sputum cultures sent. Patient placed on levofloxacin and placed on oxygen titrated to keep Pulse Ox greater than 90. Viral respiratory panel in addition to COVID also obtained on admission. Patient viral respiratory panel came back positive for rhinovirus 4. Acute congestive heart failure with suspected preserved ejection fraction ? Patient is currently being managed on a monitored bed ordered proBNP as well as 2D echo patient started on strict input and output, daily weight, fluid restriction as well as diuretic therapy ? 02/02/2025Patient has significant response to diuretic therapy currently negative fluid balance of 2.5 L over the past 24 hours. 2 D echo was ordered the day prior results pending ? 02/03/2025; adjusted Lasix dose; patient rejected 2D echo evaluation 5. 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 Dyslipidemia ?Patient is on statin therapy, continued at home dose 7. Diabetes mellitus type II -patient's oral hypoglycemics held. Placed on Accu-Cheks a.c. and at bedtime and covered with sliding scale insulin 8. Class I obesity with BMI of 34.7 ? Complicating care 9. Tobacco dependence ? Counseled on cessation, offered nicotine patch for tobacco cravings 10. Mood disorder ? With history of anxiety depression and bipolar disorder did continue patient psychotropic medications 11. Abnormal x-ray involving the right shoulder ? Imaging studies on admission did demonstrate low riding right humerus; dislocation could not be excluded. Subsequent repeat dedicated shoulder x-ray demonstrated Widened cc ligamentous space consistent with ligamentous injury. Management PT OT as tolerated in addition to pain meds 12. DVT prophylaxis ? On enoxaparin 13. Hypophosphatemia ? Corrected per protocol repeat phosphate levels ordered for a.m. 14. Anemia ? Secondary to chronic disorder monitoring H&H and transfuse if patient becomes symptomatic or hemoglobin falls below 7 Allergies/Procedures Done in Hospital Allergies ibuprofen Allergy (Verified 01/31/25 20:24) Rash Penicillins Allergy (Verified 01/31/25 20:24) RASH Type of Care/Length of Stay Estimated LOS: More Than 30 Days Type of Care Needed: Intermediate Rehab Potential: Fair Prognosis: Fair Additional Orders/Day of Discharge Day of Discharge: 02/03/25 Dietary and Speech Recommendations Dietitian Recommendations/Changes: Adjust to consistent carbohydrate diet per consistency/textures per WEB ASSISTANT recommendations. Will monitor weight trends. Discharge Plan Admission Admit Date/Time: 01/31/25 23:03 Attending Provider: Fredo Alberts Primary Care Provider: Kamar Bright Consulting Providers: Rosalva Fowler Discharge Orders/Prescriptions Prescriptions: New ipratropium-albuterol 0.5 mg-3 mg(2.5 mg base)/3 mL Solution For Nebulization 3 ml inhalation Q4HWA.RT Qty: 0 0RF albuterol sulfate 2.5 mg /3 mL (0.083 %) Solution For Nebulization 2.5 mg inhalation Q2H PRN PRN (Reason: SHORTNESS OF BREATH ) Qty: 0 0RF insulin lispro [Humalog KwikPen Insulin] 100 unit/mL Insulin Pen See Protocol subcut ACHS Qty: 0 0RF Protocol: 3. Sliding Scale Insulin Med Dosing Condition: 150-189 mg/dl = 1 unit Condition: 190-229 mg/dl = 2 units Condition: 230-269 mg/dl = 3 units Condition: 270-309 mg/dl = 4 units Condition: 310-349 mg/dl = 5 units Condition: 350-399 mg/dl = 6 units Condition: 400-449 mg/dl = 7 units Condition: Greater than 449 call physician Protocol Text: - Use for Total Daily Dose of Insulin 37-55 units - Obsese, infected, or steroid patients MEDIUM DOSING ALGORITHIM doxycycline hyclate 100 mg capsule 100 mg PO BID Qty: 14 0RF prednisone 20 mg tablet 20 mg PO BID Qty: 14 0RF guaifenesin [Mucinex] 600 mg tablet extended release 12hr 1,200 mg PO BID Qty: 20 0RF furosemide [Lasix] 40 mg tablet 40 mg PO DAILY Qty: 30 0RF insulin glargine [Lantus Solostar U-100 Insulin] 100 unit/mL (3 mL) insulin pen 10 unit subcut QPM Qty: 3 0RF Continued atorvastatin [Lipitor] 10 mg tablet 10 mg PO QHS lorazepam [Ativan] 1 mg tablet 1 mg PO Q8H Trintellix 20 mg tablet 20 mg PO DAILY sennosides-docusate sodium [Colace 2-In-1] 8.6-50 mg tablet 1 tab-cap PO DAILY aripiprazole [Abilify] 15 mg tablet 15 mg PO DAILY aspirin [Adult Low Dose Aspirin] 81 mg tablet,delayed release (DR/EC) 81 mg PO DAILY lorazepam [Ativan] 1 mg tablet 1 mg PO TID buspirone 10 mg tablet 10 mg PO TID gabapentin 100 mg capsule 200 mg PO TID trazodone 50 mg tablet 50 mg PO QHS cholecalciferol (vitamin D3) 1,250 mcg (50,000 unit) capsule 1,250 mcg PO QWEEK Rx Instructions: QMONDAY metformin 1,000 mg tablet 1,000 mg PO BID Emir Heartburn Chew 300 mg (750 mg) tablet,chewable 600 mg PO Q6H PRN (Reason: heartburn) acetaminophen [Aminofen] 325 mg tablet 650 mg PO Q4H PRN (Reason: fever or pain) Referrals / Follow Up: Kamar Bright MD [Primary Care Provider] - Within 2 Weeks Disposition Disposition (needs filled in before D/C Order can be placed): [facility]
[2025-02-03 15:00] VITALS: BP 118/76; PULSE 62; RESP 18; TEMP 36.7; O2SAT 98
== END 2025-02-03 17:39 | disposition skilled nursing facility (03) | DRG 133 ==
LOC: ED 22:58 → PCU 23:44
PROVIDERS: Admitting Provider Family Medicine; Emergency Provider Emergency Medicine; PCP Family Medicine; Visit Provider Internal Medicine
DX: J96.01 Acute respiratory failure with hypoxia (principal); G93.41 Metabolic encephalopathy; I50.31 Acute diastolic (congestive) heart failure; J15.69 Pneumonia due to other Gram-negative bacteria; D63.8 Anemia in other chronic diseases classified elsewhere; I69.322 Dysarthria following cerebral infarction; E83.39 Other disorders of phosphorus metabolism; Z66 Do not resuscitate; I11.0 Hypertensive heart disease with heart failure; E11.51 Type 2 diabetes mellitus with diabetic peripheral angiopathy without gangrene; I69.351 Hemiplegia and hemiparesis following cerebral infarction affecting right dominant side; J44.1 Chronic obstructive pulmonary disease with (acute) exacerbation; F31.9 Bipolar disorder, unspecified; E66.811 Obesity, class 1; F20.9 Schizophrenia, unspecified; K21.9 Gastro-esophageal reflux disease without esophagitis; F17.210 Nicotine dependence, cigarettes, uncomplicated; E78.00 Pure hypercholesterolemia, unspecified; F41.9 Anxiety disorder, unspecified; E11.40 Type 2 diabetes mellitus with diabetic neuropathy, unspecified; J44.0 Chronic obstructive pulmonary disease with (acute) lower respiratory infection; Z79.4 Long term (current) use of insulin; S43.411A Sprain of right coracohumeral (ligament), initial encounter; X58.XXXA Exposure to other specified factors, initial encounter; B34.8 Other viral infections of unspecified site; Z68.34 Body mass index [BMI] 34.0-34.9, adult; Z79.82 Long term (current) use of aspirin; Z79.84 Long term (current) use of oral hypoglycemic drugs; Z79.899 Other long term (current) drug therapy
CPT/HCPCS: 36415; 36600; 71046; 73030; 80048; 80053; 80202; 81001; 82803; 82962; 83605; 83735; 83880; 84100; 84145; 85025; 85610; 85730; 87040; 87449; 87633; 87641; 92526; 92610; 93005; 94003; 94640; 94660; 94668; 94762; 97162; 97166; 97530; 97802; 99285; Q9957; A4216; J1938

== ENCOUNTER 2025-04-17 09:20 | Emergency (ER) | payer MEDICAID, SELFPAY ==
[2025-04-17] VITALS (27 sets, daily range): BP systolic 100–129; BP diastolic 61–92; PULSE 74–101; RESP 15–23; TEMP 36.4; O2SAT 87–97; BMI 36.5
[2025-04-17 09:53] LABS: Hematocrit 41.1 % (40-54); Hemoglobin 12.5 g/dL (13.0-16.5); Immature Granulocytes Count 0.020 X10^3/uL (0.0-0.0); Mean Corp Hgb Conc 30.4 g/dL (32-36); Mean Corpuscular Volume 86.0 fL (80-94); Mean Platelet Vol. 9.3 fl (6.2-12.0); NRBC Flagged by Analyzer 0 % (0-5); Platelet Count 243 K/mm3 (150-450); RBC Distribution Width CV 15.6 % (11.6-14.6); RBC Distribution Width SD 48.9 fl (35.1-43.9); Red Blood Count 4.78 M/mm3 (4.6-6.2); White Blood Count 6.0 K/mm3 (4.4-11.0)
[2025-04-17 10:07] LABS: FI02 3.0; SITE Not entered; VBG BASE EXCESS 13 mmol/L (-1.0-3.5); VBG PO2 59 mmHg (25-40); VBG SO2 90 % (50-70); VBG TCO2 39 mmol/L (23-33)
[2025-04-17 10:26] LABS: Anion Gap 11 (5-15); BUN 15 mg/dL (4-19); BUN/Creat Ratio 13.6 RATIO (10-20); Calcium,Total 9.9 mg/dL (7.6-11.0); Carbon Dioxide 29.9 mmol/L (21.0-32.0); Chloride 101 mmol/L (98-108); Estimated Creatinine Clearance 88.75 ml/min (50-250); Glucose 101 mg/dL (70-99); Potassium 4.2 mmol/L (3.3-5.1)
[2025-04-17 10:27] LABS: Pro- Brain NATRIURETIC PEPTIDE < 36 pg/mL (<=900)
== END 2025-04-17 15:58 | disposition skilled nursing facility (03) ==
PROVIDERS: Emergency Provider Emergency Medicine; PCP Family Medicine; Visit Provider Emergency Medicine
DX: J44.1 Chronic obstructive pulmonary disease with (acute) exacerbation (principal); I69.351 Hemiplegia and hemiparesis following cerebral infarction affecting right dominant side; E11.9 Type 2 diabetes mellitus without complications; F17.210 Nicotine dependence, cigarettes, uncomplicated; I10 Essential (primary) hypertension; E78.5 Hyperlipidemia, unspecified; R06.02 Shortness of breath; I69.322 Dysarthria following cerebral infarction; K21.9 Gastro-esophageal reflux disease without esophagitis
CPT/HCPCS: 71045; 71275; 80048; 82803; 83880; 85025; 87631; 93005; 94640; 96374; 96376; 99285; Q9967; A4216

== ENCOUNTER 2025-06-15 18:06 | Inpatient (IN) | payer MEDICAID, SELFPAY ==
[2025-06-15 18:07] VITALS: BP 109/66; PULSE 97; RESP 24; TEMP 37.1; O2SAT 91; O2SAT 94; BMI 37.1
[2025-06-15 18:11] VITALS: BP 109/66; PULSE 110; RESP 24; TEMP 37.1; O2SAT 95
--- NOTE | 2025-06-15 18:45 | EKG12_ITS ---
Test Reason : RESP DISTRES Blood Pressure : */* mmHG Vent. Rate : 113 BPM Atrial Rate : 113 BPM P-R Int : 148 ms QRS Dur : 78 ms QT Int : 320 ms P-R-T Axes : 54 88 34 degrees QTcB Int : 438 ms Sinus tachycardia Otherwise normal ECG Reconfirmed by Farshad Jacobo ([id number]), editorial specialist NGUYEN HOUSER ([id number]) on 06/18/2025 10:20:54 AM Also confirmed by Farshad Jacobo ([id number]), editorial specialist NGUYEN HOUSER ([id number]) on 06/19/2025 8:18:35 AM Referred By: CARLIE/ALTHEA Confirmed By: Farshad Jacobo
--- NOTE | 2025-06-15 18:46 | ED.VIS.DYS ---
HPI History of Present Illness Chief Complaint: Shortness of Breath Informant: patient and EMS Narrative Narrative: Patient is a 55-year-old male presenting with dyspnea and emesis. - Reports going outside to smoke earlier today, during which he experienced nausea followed by emesis. - Immediately after vomiting, he began experiencing dyspnea. According to prison, he was 84% on room air and dyspnea, they put him on 3 L nasal cannula and brought him up to 90%, EMS was called they gave him a nebulizer treatment the patient is feeling better now. Not usually on oxygen. - Unsure if he aspirated during the episode. - Denies any chest discomfort. - Currently feels some improvement in breathing and no pain or nausea right now but sleepy. 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 COPD (chronic obstructive pulmonary disease) Nicotine dependence, cigarettes, uncomplicated Violent behavior Unspecified lack of coordination Acute bronchitis, unspecified Pneumonitis due to inhalation of food and vomit Peripheral vascular disease, unspecified Need for assistance with personal care Gastro-esophageal reflux disease without esophagitis Benign prostatic hyperplasia with lower urinary tract symptoms CVA (cerebral vascular accident) Depression Diabetes Bipolar 1 disorder HLD (hyperlipidemia) HTN (hypertension) Schizophrenia COVID-19 virus infection Home Medications ?Medication ?Instructions ?Recorded ?Last Taken ?Type acetaminophen 325 mg tablet 650 mg PO Q4H PRN fever or pain 07/31/24 Unknown History (Aminofen) aripiprazole 15 mg tablet (Abilify) 15 mg PO DAILY SCHIZOPHRENIA 07/31/24 06/15/25 History aspirin 81 mg tablet,delayed 81 mg PO DAILY HTN 07/31/24 06/15/25 History release (Adult Low Dose Aspirin) buspirone 10 mg tablet 10 mg PO TID BIPOLAR 07/31/24 06/15/25 History calcium carbonate (Leslye-[place] 600 mg PO Q6H PRN heartburn 07/31/24 11/26/24 History Heartburn Chew) cholecalciferol (vitamin D3) 1,250 1,250 mcg PO QWEEK SUPPLEMENT 07/31/24 06/11/25 History mcg (50,000 unit) capsule gabapentin 100 mg capsule 200 mg PO TID NEUROPATHIC PAIN 07/31/24 06/15/25 History lorazepam 1 mg tablet (Ativan) 1 mg PO TID agitation 07/31/24 06/15/25 History metformin 1,000 mg tablet 1,000 mg PO BID DM 07/31/24 06/15/25 History sennosides 8.6 mg-docusate sodium 1 tab-cap PO DAILY CONSTIPATION 07/31/24 06/15/25 History 50 mg tablet (Colace 2-In-1) trazodone 50 mg tablet 100 mg PO QHS BIPOLAR 07/31/24 06/14/25 History vortioxetine 20 mg tablet 20 mg PO DAILY DEPRESSION 07/31/24 06/15/25 History (Trintellix) atorvastatin 10 mg tablet (Lipitor) 10 mg PO QHS hld 01/31/25 06/14/25 History lorazepam 1 mg tablet (Ativan) 1 mg PO Q8H PRN agitation 01/31/25 Unknown History albuterol sulfate 2.5 mg/3 mL 2.5 mg (3 mL) inhalation Q2H PRN 02/03/25 Unknown Rx (0.083 %) solution for nebulization PRN SHORTNESS OF BREATH #0 mL insulin glargine 100 unit/mL (3 10 unit (0.1 mL) subcut QPM #3 mL 02/03/25 Unknown Rx mL) subcutaneous pen (Lantus Solostar U-100 Insulin) ipratropium 0.5 mg-albuterol 3 mg 3 ml inhalation Q4HWA.RT #0 mL 02/03/25 Unknown Rx (2.5 mg base)/3 mL nebulization soln sacubitril 49 mg-valsartan 51 mg 1 tab PO BID chf 06/15/25 06/15/25 History tablet (Entresto) Allergy/AdvReac Type Severity Reaction Status Date / Time ibuprofen Allergy Rash Verified 06/15/25 18:14 Penicillins Allergy RASH Verified 06/15/25 18:14 Family History (Updated 06/15/25 @ 20:[address] Jamar Byrne MD) Other Heart disease Surgical History (Updated 06/15/25 @ 20:[address] Jamar Byrne MD) S/P herniorrhaphy Social History housing: prison Smoking Status: Current every day smoker tobacco type: cigarettes alcohol intake: never substance use type: does not use ROS ROS ED Constitutional Constitutional ED: Reports fatigue; Denies chills or fever(s) Eyes Eyes: Denies change in vision or diplopia ENT ENT ED: Denies rhinorrhea or sore throat Cardiovascular Cardiovascular: Denies chest pain or palpitations Respiratory/Chest Respiratory/Chest: Reports cough and dyspnea Gastrointestinal Gastrointestinal: Reports nausea and vomiting; Denies abdominal pain or diarrhea Genitourinary Genitourinary ED: Denies dysuria or hematuria Musculoskeletal Musculoskeletal: Denies back pain or neck pain Integumentary Denies abscess or rash Neurologic Neurologic: Denies headache(s), paresthesias or weakness Psychiatric Psychiatric: Denies suicidal thoughts EXAM Physical Exam Const Vital Signs: 06/15/25 18:07 06/15/25 18:11 06/15/25 18:45 Temperature 98.7 F 98.7 F Temperature Source Oral Oral Pulse Rate 97 110 H Respiratory Rate 24 H 24 H Respiratory Effort Respiratory Depth Respiratory Pattern Blood Pressure 109/66 109/66 Blood Pressure Mean 80 80 Pulse Ox 94 95 Oxygen Delivery Method Room Air Nasal Cannula Nasal Cannula Oxygen Flow Rate (L/min) 4 3 06/15/25 19:30 06/15/25 19:44 Temperature 98.6 F Temperature Source Oral Pulse Rate 87 Respiratory Rate 16 Respiratory Effort Normal Non-Labored Respiratory Depth Normal Respiratory Pattern Normal Blood Pressure 101/67 Blood Pressure Mean 78 Pulse Ox 95 Oxygen Delivery Method Nasal Cannula Nasal Cannula Oxygen Flow Rate (L/min) 3 3 Positive well nourished, well developed and obese Constitutional Narrative: Somnolent, alerts to voice General Appearance ED: well developed and NAD Nutritional Appearance: obese HEENT Reports moist mucous membranes normocephalic and atraumatic Eyes PERRL and EOMs intact bilaterally Neck full ROM and supple Resp normal respiratory effort Resp Narrative: Some rales in the right base otherwise diminished and clear trachea midline Cardio regular rate, regular rhythm and no murmurs GI non-tender and non-distended Auscultation: normoactive bowel sounds Palpation: soft Back/Spine no CVA tenderness General Back: other FROM Extremity normal to inspection General Extremety ED: Yes edema; Negative for pulses abnormal or tenderness General Extremity: edema bilateral lower extremity Details: mild (Symmetric without tenderness); Negative for pulses abnormal Neuro oriented x3, CN's II-XII intact bilaterally and no sensory deficits noted Stephanie Coma Scale: document GCS findings To Voice Obeys Commands Oriented 14 Sensorium / Orientation: lethargic Motor Exam: general weakness Psych mental status grossly normal Skin no rashes or lesions noted and no wounds MDM MDM MDM Narrative Medical decision making narrative: Assessment: The patient is a 55-year-old male presenting for acute shortness of breath and hypoxemia after an episode of emesis while smoking. Given the temporal onset after vomiting, right-basilar rales, and reassuring ABG, aspiration pneumonitis is the most likely diagnosis. Normal chest x-ray without acute infiltrate, sinus tachycardia without injury pattern on EKG, and negative cardiac enzymes argue against acute cardiac ischemia or parenchymal pneumonia. Current gas exchange on 3 L nasal cannula does not indicate need for BiPAP. Plan: - Administered IV ceftriaxone in ED. (pt allergic to PCN) - Supplemental oxygen 3 L NC, continue bedside monitoring. - Admit to hospital for close observation and ongoing treatment of aspiration pneumonitis and hypoxemia. Diagnostics: - Arterial blood gas: pH 7.35; PCO2 60 mmHg; PO2 57.7 mmHg; HCO3 33 mEq/L. - Chest x-ray: no acute infiltrates. - EKG interpreted by Jordon santiago: sinus tachycardia at 113 bpm; no acute injury pattern. - Labs: cardiac enzymes negative. Reevaluation: Patient 93% on 3 L nasal cannula, currently breathing well, still with some rales on the right base. Given that this patient likely acutely aspirated, although he is hypoxic but not in respiratory failure per se, plan will be to admit for observation overnight given his history of COPD and risk for worsening respiratory status. Portions of this note were generated using voice recognition software ([employer]). I have reviewed the contents and every effort has been made to ensure accuracy; however, inadvertent errors in grammar, spelling, punctuation, or word choice may occur, that were not noted before signing the document and should not alter the intended clinical meaning. Lab Data Attestation: I reviewed the patient's lab results. Labs: Laboratory Results - last 24 hr 06/15/25 18:14 WBC 5.0 RBC 4.58 L Hgb 11.8 L Hct 38.9 L MCV 84.9 MCH 25.8 L MCHC 30.3 L RDW Std Deviation 47.6 H RDW Coeff of Thomas 15.5 H Plt Count 210 MPV 9.6 Immature Gran % (Auto) 0.200 Neut % (Auto) 62.4 Lymph % (Auto) 18.7 L Gove % (Auto) 17.1 H Eos % (Auto) 1.0 Baso % (Auto) 0.6 Absolute Neuts (auto) 3.1 Absolute Lymphs (auto) 0.93 Nucleated RBC % 0 Sodium 141 Potassium 4.2 Chloride 101 Carbon Dioxide 29.8 Anion Gap 10 BUN 13 Creatinine 1.14 Estim Creat Clear Calc 85.68 Est GFR (MDRD) Non-Af 76 BUN/Creatinine Ratio 11.6 Glucose 98 Calcium 9.5 Troponin T High Sens 16 D ABG Data ABG results: ABG 06/15/25 19:08 Specimen Type ART Sample Site L Brach pH 7.35 Bicarbonate Actual 32.9 H Total CO2 35 Base Excess 7 H O2 Saturation 87 L O2 % 4.0 ABG pCO2 59.6 H ABG pO2 58 L Joel Test Positive O2 Delivery Device Cannula Vent Mode Not entered Radiography Diagnostic Testing: Clinical Impression(s) from Imaging Studies Chest X-Ray 06/15/25 19:05 IMPRESSION: No Acute Findings. Reading Location: [facility] Rhythm Strip Rhythm Strip: Sinus Tach Rate: 110 Ectopy: None EKG Initial EKG: Attestation: I personally reviewed and interpreted this EKG as follows: Interpretation: No Acute Injury Pattern and Sinus Tachycardia Prior EKG tracings: available for review Prior: Unchanged Management Discussion w/another healthcare provider: Hospitalist and Pharmacist (Regarding most appropriate antibiotic with penicillin allergy history) Discharge Plan Dx/Rx/DC Orders Clinical Impression: Hypoxemia, Aspiration pneumonitis, COPD (chronic obstructive pulmonary disease) Disposition Disposition: Acute Care Hospital [facility] Discharge Date/Time: 06/15/25 21:51
[2025-06-15 19:00] LABS: Hematocrit 38.9 % (40-54); Hemoglobin 11.8 g/dL (13.0-16.5); Immature Granulocytes Count 0.010 X10^3/uL (0.0-0.0); Mean Corp Hgb Conc 30.3 g/dL (32-36); Mean Corpuscular Volume 84.9 fL (80-94); Mean Platelet Vol. 9.6 fl (6.2-12.0); NRBC Flagged by Analyzer 0 % (0-5); Platelet Count 210 K/mm3 (150-450); RBC Distribution Width CV 15.5 % (11.6-14.6); RBC Distribution Width SD 47.6 fl (35.1-43.9); Red Blood Count 4.58 M/mm3 (4.6-6.2); White Blood Count 5.0 K/mm3 (4.4-11.0)
--- OUTSIDE RECORDS SUMMARY | 2025-06-15 19:03 | XMS RPT_ITS | CCD ---
Author Organization [facility] Team Providers Care Neuro Psych Sales Specialist Name Role Phone Unavailable Unavailable Unavailable BENNY [...] Care Unavailable MARY JAMES Admitting Unavailable PHYSICIANS, [facility] Consulting Unav ailable TATUM MONET Consulting Unavail able DYLAN ROBLES Consulting Unavailable HUGUENOT MEDICAL SET UP MECHANIC, GENERIC Consultin g Unavailable NO, PHYSICIAN Primary Care Unavailable DAVID JI Attending Unavailable LUZ CORRALES Primary Care Unavailable ALAINA BAEZ Attending Unavailable LUZ CORRALES Primary Care Unavailable JAYNE RUSSO Admitting Unavailable RUPAL WILSON Attending Unavailable WARD MOOK, YAQUELIN Consulting Unavailable ED ELKINS YAQUELIN Consulting Unavailable ED ELKINS, YAQUELIN Consulting Unavailable Lashonda CANO, Luz Primary Care Provider [phone] Kaila CANO, Dr. Galvin Primary Care Provider [phone] RegiMichael NICOLE, Dr. Gamez Emergency Provider Bridgette CANO, Dr. Michelle Rois Admit Provider Bridgette CANO, Dr. Michelle Rios Attending Provider Michelle CANO, Dr. Guzman Other Provider Marie CANO, Dr. So Other Provider Jeff CANO, Dr. Hernandez Other Provider Dr. Ean Quintana DO Other Provider Gaby CANO, Dr. Fredo Villeda Other Provider Xin CANO, Dr. Ponce Other Provider Audie CANO, Dr. Ceron Other Provider Leola CANO, Dr. Ferro Other Provider Aria CANO, Dr. Maravilla Other Provider Tano CANO, Dr. Crandall Other Provider Dr. Waldo Shepard MD Other Provider [phone] Makayla French MD Other Provider Dr. Patricia Vargas MD Other Provider Unavailabl antoinette Dahl MD, Dr. Bradley Other Provider Jordana CANO, Dr. Neff Other Provider Dr. Ernie Law MD Other Provider Morgan CANO, Dr. Nixon Other Provider Dr. Jose Mejias DO Other Provider Kerri CANO, Dr. Clemens Other Provider Gibran CANO, Dr. Ashford Other Provider Ephraim NICOLE, Dr. Toledo Other Provider Nikhil CANO, Dr. Vinson Other Provider Jatinder CANO, Dr. Donovan Other Provider Bridgette CANO, Dr. Michelle Rios Other Provider [phone] Mariano NICOLE, Dr. Mckoy Attending Provider Bridgette CANO, Dr. Michelle Rios Referring Provider Jose CANO, Dr. Parker Emergency Provider Janeth CANO, Dr. Rosalva Oakes Attending Provider Janeth CANO, Dr. Rosalva Oakes Admit Provider Janeth CANO, Dr. Rosalva Oakes Other Provider [phone] Lexus CANO, Dr. Yoo Attending Provider Unavaila surekha Alberts MD, Dr. Yoo Other Provider Unavailable Koram, Michelle Blanca Attending Unavailable Mame Bright Primary Care Unavailable Maricruz Villareal Admitting Unavailable Maricruz Villareal Referring Unavailable Maricruz Villareal Consulting Unavailable Koram, Michelle Blanca Consulting Unavailable Koram, Michelle Blanca Attending Unavailable Koram, Michelle Blanca Admitting Unavailable Maem Bright Primary Care Unavailable Thomas Martinez Consulting Unavailable Marie, Judah Consulting Unavailable David Aguilar Consulting Unavailable Ean Quintana Consulting Unavailable Fredo Griffin Consulting Unavailable Kris Lauren Consulting Unavailable Osmany Bronson Consulting Unavailable Kasie Bhagat Consulting Unavailab Taiwo Floyd Consulting Unavailable Raz Freedman Consulting Unavailable Waldo Shepard Consulting Unavailable Makayla French Consulting Unavailable Aljunbeth, Lamia Consulting Unavailable Dahl, Mirna Consulting Unavailable Jordana, Tawanda Consulting Unavailable IrukWoody pulidoan Consulting Unavailable Morgan, Hussain Consulting Unavailable Dhesi, Jose Consulting Unavailable Jayleen Manning Consulting Unavailable Makeda Leary Consulting Unavailable Tre Ye Consulting Unavailable Karel Tejeda Consulting Unavailable Zion Tobias Consulting Unavailable Koram, Michelle Blanca Consulting Unavailable Ean Quintana Attending Unavailable Koram, Michelle Blanca Referring Unavailable Fredo Alberts Attending Unavailable Rosalva Fowler Admitting Unavailable Rosalva Fowler Consulting Unavailable Mame Bright Primary Care Unavailable Fredo Alberts Consulting Unavailable Michelle Angeles Attending Unavailable Mame Bright Primary Care Unavailable Maricruz Villareal Admitting Unavailable Maricruz Villareal Referring Unavailable Maricruz Villareal Consulting Unavailable Michelle Angeles Attending Unavailable Bridgette, Michelle Rios Admitting Unavailable Mame Bright Primary Care Unavailable Thomas Martinez Consulting Unavailable Judah Salazar Consulting Unavailable David Aguilar Consulting Unavailable Ean Quintana Consulting Unavailable Fredo Griffin Consulting Unavailable Kris Lauren Consulting Unavailable Osmany Bronson Consulting Unavailable Kasie Bhagat Consulting UnavailTaiwo Schreiber Consulting Unavailable Raz Freedman Consulting Unavailable Waldo Shepard Consulting Unavailable Makayla French Consulting Unavailable Patricia Vargas Consulting Unavailable Mirna Dahl Consulting Unavailable JordanaTawanda mason Consulting Unavailable Ernie Law Consulting Unavailable Hussain Mora Consulting Unavailable Jose Mejias Consulting Unavailable Jayleen Manning Consulting Unavailable Makeda Leary Consulting Unavailable Tre Ye Consulting Unavailable Karel Tejeda Consulting Unavailable Zion Tobias Consulting Unavailable Fredo Alberts Attending Unavailable Rosalva Fowler Consulting Unavailable Rosalva Fowler Admitting Unavailable aMme Bright Primary Care Unavailable Mame Bright Primary Care Unavailable Ovi Petit Attending Unavailable Rosalva Fowler Attending Unavailable Mame Bright Primary Care Unavailable Rosalva Fowler Referring Unavailable Mame Bright Primary Care Unavailable Salvador Rodriguez Attending Unavailable Maricruz Villareal Attending Unavailable Dr. Mame Bright MD Primary Care Physician Dr. Keith Garcia MD Emergency Department Physician Dr. Rosalva Fowler MD Attending Physician Dr. Rosalva Fowler MD Admitting Physician Dr. Rosalva Fowler MD Nurse Practitioner Dr. Fredo Alberts MD Attending Physician Unavail able Dr. Salvador Rodriguez MD Attending Physician Dr. Rosalva Fowler MD Referring Provider Dr. Fredo Rodriguez MD Nurse Practitioner Parisa Petit MD, Ovi Attending Physician [phone] Ovi Petit MD Emergency Department Physician Allergies Allergy Classification Reported Allergen(s) Allergy Type Date of Onset Reaction(s) Facility NSAIDs (1 source) Ibuprofen Drug Allergy 5 Unknown, Other (See Comments) [facility] Penicillins (antibiotic) (1 source) Penicillins Drug Allergy 9 [facility] (15 sources) ibuprofen; Translations: [IBUPROFEN] Propensity to adverse reactions to drug 5 Unknown, Other (See Comments), Other [facility] Work Phone: (12 sources) Penicillins; Translations: [PENICILLINS] Propensity to adverse reactions to drug 9 Other (See Comments), Other [facility] (1 source) Ibuprofen Drug Allergy 5 [facility] Repository Medications Current Medications Medication Drug Class(es) Dates Sig (Normalized) Sig (Original) acetaminophen 325 mg oral tablet (18 sources) Start: 07-31-2024 Acetaminophen (Aminofen) 325 mg tablet Active 650 mg PO Q4H as needed for fever or pain July 31, 2024 12:00am Complies with drug therapy Start: 06-09-2022 End: 07-08-2022 take 650 mg [...] 650 mg take 2 tablets by mo ut every four hours for pain acetaminophen (TYLENOL) [...] hours as needed for pain. 0 Active albuterol 0.83 mg/ml inhalation solution (12 sources) beta2-Adrenergic Agonist Start: 02-03-2025 take 2.5 mg by inhalation every two hours as needed Albuterol Sulfate 2.5 mg /3 mL (0.083 %) Solution For Nebulization Active 2.5 mg INHALATION EVERY 2 HOURS NEEDED as needed for SHORTNESS OF BREATH 0 0 February 02, 2025 11:00pm Complies with drug therapy Start: 12-12-2020 End: 12-12-2020 take 2 puff(s) by inhalation every four hours as needed for wheezing 2 puff, Inhalation, Every 4 hours PRN, wheezing, shortness of breath, Starting on [facility] 12/12/20 at 0333 SPACER REQUIRED FOR ADMINISTRATION take 2.5 mg by inhal ation every six hours as needed albuterol (PROVENTIL) 2.5 mg /3 mL (0.083 %) nebulizer solution Take 2.5 mg by nebulization every 6 (six) hours as needed for shortness of breath . 0 Active take 2 puff(s) by in halation every four hours as needed for wheezing albuterol 90 mcg/actuation inhaler Inhale 2 puffs [...] / ipratropium bromide 0.167 mg/ml inhalation solution (9 sources) Anticholinergic, beta2-Adrenergic Agonist Start: 02-03-2025 take 1 mL by inhalation every four hours Ipratropium-Albuterol 0.5 mg-3 mg(2.5 mg base)/3 mL Solution For Nebulization Active 3 mL INHALATION EVERY 4 HOURS WHILE AWAKE 0 0 February 02, 2025 11:00pm Complies with drug therapy Start: 06-09-2022 End: 07-08-2022 take 3 mL by inhalation every six hours as needed ipratropium-albuteroL (DUONEB) 0.5-2.5 mg/3 mL nebulizer solution 3 mL take 3 mL by inhalat ion every six hours as needed ipratropium-albuterol (DUO-NEB) 0.5-2.5 mg/3 ml nebulizer Take 3 mL by nebulization every 6 (six) hours as needed for wheezing or shortness of breath. 0 Active ALPRAZolam 0.5 mg oral tablet (6 sources) Benzodiazepine take 1 tablet by mouth every eight hours as needed ALPRAZolam (XANAX) 0.5 MG tablet Take 0.5 mg by mouth every 8 (eight) hours as needed for anxiety. 0 Active ARIPiprazole 15 mg oral tablet (5 sources) Atypical Antipsychotic Start: 07-31-19 take 1 tablet by mouth once daily Aripiprazole (Abilify) 15 mg tablet Active 15 mg PO DAILY July 31, 2024 12:00am SCHIZOPHRENIA Complies with drug therapy aspirin 81 mg delayed release oral tablet (5 sources) Platelet Aggregation Inhibitor, Nonsteroidal Anti-inflammatory Drug Start: 07-31-19 Aspirin (Adult Low Dose Aspirin) 81 mg tablet,delayed release (DR/EC) Active 81 mg PO DAILY July 31, 2024 12:00am HTN Complies with drug therapy atorvastatin 10 mg oral tablet (15 sources) HMG-CoA Reductase Inhibitor Start: 02-01-20 take 1 tablet by mouth at bedtime Atorvastatin (Lipitor) 10 mg tablet Active 10 mg PO AT BEDTIME 2025 11:00pm Complies with drug therapy Start: 07-31-2024 End: 01-31-2025 take 1 tablet by mouth at bedtime Atorvastatin 20 mg tablet Discontinued 20 mg PO AT BEDTIME July 31, 2024 12:00am January 31, 2025 9:08pm HYPERLIPIDEMIA Start: 05-15-2022 End: 07-08-2022 take 20 mg by mouth once daily 20 mg, oral, Nightly, F irst dose on Wed06/09/22 at 2100 Start: 12-12-2020 End: 12-12-2020 take 20 mg by mouth once daily 20 mg, Oral, Nightly, F irst dose on Raysa 12/12/20 at 2100 benzocaine/menth/cetylpyrd C l (CEPACOL SORE [...] Active busPIRone hydrochloride 10 mg oral tablet (5 sources) Start: 07-31-2024 take 1 tablet by mouth three times daily Buspirone 10 mg tablet Active 10 mg PO THREE TIMES A DAY July 31, 2024 12:00am BIPOLAR Complies with drug therapy calcium carbonate 750 mg chewable tablet (9 sources) Start: 07-31-2024 Calcium Carbonate (Leslye-[place] Heartburn Chew) 300 mg (750 mg) tablet,chewable Active 600 mg PO EVERY 6 HOURS as needed for heartburn July 31, 2024 12:00am Complies with drug therapy Start: 07-31-2024 Calcium Carbon ate (Leslye-[place] Heartburn Chew) 300 mg (750 mg) tablet,chewable Active 600 mg PO EVERY 6 HOURS as needed for heartburn July 31, 2024 1:00am Start: 06-29-2022 End: 07-08-2022 calcium carbonate (TUMS) melinda wable tablet 500 mg Start: 05-15-2022 take 750 [...] 0 Active cholecalciferol 1.25 mg oral capsule (8 sources) Vitamin D Start: 07-31-2024 take 1 capsule by mouth every week Cholecalciferol (Vitamin D3) 1,250 mcg (50,000 unit) capsule Active 1250 ug PO EVERY WEEK July 31, 2024 12:00am SUPPLEMENT QMONDAY Complies with drug therapy Start: 07-08-2022 End: 07-08-2023 take 1 capsule [...] Oral, Daily, Fir st dose on Raysa 17/21 at 0900 Start: 10-17-2014 End: 05-15-2022 take 1 tablet by mouth once daily citalopram (CELEXA) 20 MG tablet Take 1 tablet by mouth daily. 0 10/17/2014 05/15/2022 Discontinued (Error) take 1 tablet by nicole th once daily citalopram (CELEXA) 10 MG tablet Take 10 mg by mouth daily . 0 Active docusate sodium 50 mg / sennosides, custodial 8.6 mg oral tablet (13 sources) Start: 07-31-2024 Sennosides-Doc usate Sodium (Colace 2-In-1) 8.6-50 mg tablet Active 1 NMA PO DAILY July 31, 2024 12:00am CONSTIPATION Complies with drug therapy Start: 05-15-2022 End: 07-08-2022 take 1 tablet by mouth once daily 1 tablet, oral, Daily, First dose on Wed06/09/22 at 1900 Start: 12-12-2020 End: 12-12-2020 take 1 tablet by mouth twice daily 1 tablet, Oral, 2 times daily, First dose on Raysa 12/12/20 at 0900 Hold for loose stools Do Not Crush or Chew if administering orally due to bitter taste. May be crushed if given via tube. take 1 tablet by [facility] twice daily senna-docusate (sennosides-docusate sodium) 8.6-50 mg Take 1 tablet by mouth 2 (two) times a day . 0 Active ergocalciferol 1.25 mg oral capsule (3 sources) Provitamin D2 Compound ergocalciferol (Vitamin D2) 1,250 mcg (50,000 unit) capsule Take 50,000 Units by mouth once a week On Wednesday . 0 Active gabapentin 100 mg oral capsule (18 sources) Anti-epileptic Agent Start: 07-31-19 take 2 capsules by mouth three times daily Gabapentin 100 mg capsule Active 200 mg PO THREE TIMES A DAY July 31, 2024 12:00am NEUROPATHIC PAIN Complies with drug therapy Start: 06-23-2022 End: 07-07-2023 take 1 capsule by mouth three times daily gabapentin (NEURONTIN) 300 mg capsule Take 1 capsule (300 mg total) by mouth 3 (three) times a day. 90 each 11 07/07/2022 07/07/2023 Active Start: 06-09-2022 End: 06-23-2022 [...] by mouth 3 times daily. 0 Active 12 hr guaiFENesin 600 mg extended release oral tablet (3 sources) Start: 02-03-2025 take 2 tablets by mouth twice daily, then take 1 tablet by mouth every twelve hours Guaifenesin (Mucinex) 600 mg tablet extended release 12hr Active 1200 mg PO TWICE A DAY 20 February 02, 2025 11:00pm Complies with drug therapy take 400 mg by mouth every six hours as needed guaiFENesin (ROBITUSSIN) 100 mg/5 mL syr up Take 400 mg by mouth every 6 (six) hours as needed for cough . 0 Active haloperidol 5 mg oral tablet (16 sources) Typical Antipsychotic Start: 07-07-2022 take 1 tablet by mouth every eight [...] day as needed (constipation) . 0 Active 3 ml insulin glargine 100 unt/ml pen injector (2 sources) Insulin Analog Start: 02-04-20 25 Insulin Glargine (Lantus Solostar U-100 Insulin) 100 unit/mL (3 mL) insulin pen Active 10 U SC EVERY EVENING 3 0 February 02, 2025 11:00pm Complies with drug therapy 3 ml insulin lispro 100 unt/ml pen injector (3 sources) Insulin Analog Start: 02-04-20 25 Insulin Lispro (Humalog Kwikpen Insulin) 100 unit/mL Insulin Pen Active 0 U SC BEFORE MEALS AND AT BEDTIME Protocol: - Use for Total Daily Dose of Insulin 37-55 units- Obsese, infected, or steroid patientsMEDIUM DOSING ALGORITHIM Condition: 150-189 mg/dl = 1 unit Condition: 190-229 mg/dl = 2 units Condition: 230-269 mg/dl = 3 units Condition: 270-309 mg/dl = 4 units Condition: 310-349 mg/dl = 5 units Condition: 350-399 mg/dl = 6 units Condition: 400-449 mg/dl = 7 units Condition: Greater than 449 call physician 0 0 February 02, 2025 11:00pm Please contact the information source for Protocol details. Complies with drug therapy Start: 02-03-2025 Insulin Lispro (Humalog Kwikpen Insulin) 100 unit/mL Insulin Pen Active 0 U SC BEFORE MEALS AND AT BEDTIME 0 0 February 03, 2025 12:00am Please contact the information source for Protocol details. Start: 06-10-2022 End: 06-10-2022 insulin lispro (HumaLOG) inj ection 1-6 Units lithium carbonate 300 mg oral capsule (15 sources) Start: 06-10-2022 End: 09-09-2022 take 1 capsule by mouth twice daily [...] Oral, 2 times daily, First dose on Raysa 12/12/20 at 0900 End: 07-08-2022 take 3 capsules [...] 0 Active LORazepam 1 mg oral tablet (9 sources) Benzodiazepine Start: 01-31-2025 take 1 tablet by mouth every eight hours Lorazepam (Ativan) 1 mg tablet Active 1 mg PO Q8H 2025 11:00pm Complies with drug therapy Start: 07-31-2024 take 1 tablet by nicole th three times daily Lorazepam (Ativan) 1 mg tablet Active 1 mg PO THREE TIMES A DAY July 31, 2024 12:00am agitation Complies with drug therapy Start: 07-31-2024 take 1 tablet by nicole every eight hours Lorazepam (Ativan) 1 mg tablet Active 1 mg PO Q8H July 31, 2024 1:00am Start: 04-04-2020 End: 04-04-2020 take 1 tablet by mouth every six hours as needed LORazepam (ATIVAN) tablet 1 mg metFORMIN hydrochloride 1000 mg oral tablet (12 sources) Biguanide Start: 07-31-2024 take 1 tablet by mouth twice daily Metformin 1,000 mg tablet Active 1000 mg PO TWICE A DAY July 31, 2024 12:00am DM Complies with drug therapy End: 05-15-2022 take 1 tablet by mouth twice daily at mealtime metformin (GLUCOPHAGE) 500 MG tablet Take 500 mg by mouth 2 times daily (with meals). 0 05/15/2022 Discontinued (Error) take 2 tablets by mo [facility] twice daily at mealtime metFORMIN (GLUCOPHAGE) 500 [...] 1 (one) time each day. 30 each 11 07/08/2022 07/08/2023 Active 24 hr nicotine 0.583 [...] nausea . 10 tablet 0 07/03/2018 Active predniSONE 20 mg oral tablet (3 sources) Start: 04-17-2025 take 2 tablets by mouth once daily Start: 02-03-2025 End: 04-17-2025 take 1 tablet by mouth twice daily Prednisone 20 mg tablet Discontinued 20 mg PO TWICE A DAY 14 0 February 02, 2025 11:00pm April 17, 2025 9:22am QUEtiapine 50 mg oral tablet (3 sources) Atypical Antipsychotic take 1 tablet by mouth once daily QUEtiapine (SEROQUEL) 50 MG tablet Take 50 mg by mouth nightly . 0 Active simvastatin 20 mg oral tablet (7 sources) HMG-CoA Reductase Inhibitor take 1 tablet by mouth once daily simvastatin (ZOCOR) 20 MG tablet Take 20 mg by mouth nightly. 0 Active traZODone hydrochloride 50 mg oral tablet (15 sources) Serotonin Reuptake Inhibitor Start: 07-31-19 take 1 tablet by mouth at bedtime Trazodone 50 mg tablet Active 50 mg PO AT BEDTIME July 31, 2024 12:00am BIPOLAR Complies with drug therapy Start: 07-07-2022 End: 08-06-2022 take 0.5 tablet [...] at Discharge) vortioxetine 20 mg oral tablet (5 sources) Start: 07-31-2024 take 1 tablet by mouth once daily Vortioxetine (Trintellix) 20 mg tablet Active 20 mg PO DAILY July 31, 2024 12:00am DEPRESSION Complies with drug therapy Completed/Discontinued Medications Medication Drug Class(es) Dates Sig (Normalized) Sig (Original) acetaminophen 325 mg / oxyCODONE hydrochloride 5 mg oral tablet (6 sources) Opioid Agonist Start: 07-03-2018 End: 07-03-2018 oxyCODONE-acetamin ophen (PERCOCET) 5-325 mg per tablet 1 tablet Start: 07-03-2018 take 1 tablet by nicole th every six hours as needed for pain oxyCODONE-acetaminophen (PERCOCET) 5-325 mg per tablet Indications: Kidney stone on left side Take 1 (one) tablet by mouth every 6 (six) hours as needed for pain . 12 tablet 0 07/03/2018 Active aluminum hydroxide 40 mg/ml / magnesium [...] times daily with meals, First dose on Raysa 12/12/20 at 0800 CATEGORY C HAZARDOUS DRUG use [...] at 0900 dexamethasone 6 mg oral tablet (5 sources) Corticosteroid Start: 08-01-2024 End: 12-04-2024 take 1 tablet by mouth once daily Dexamethasone 6 mg tablet Discontinued 6 mg PO DAILY 8 0 August 01, 2024 12:00am December 04, 2024 9:43am diphenhydrAMINE (2 sources) Histamine-1 Receptor Antagonist Start: 06-20-2020 End: 06-20-2020 inject 50 mg by intramuscular injection every twenty-four hours as needed diphenhydrAMINE (BENADRYL) injection 50 mg Start: 04-04-2020 End: 04-04-2020 inject 50 mg by intramuscular injection every twenty-four hours as needed diphenhydrAMINE (BENADRYL) injection 50 mg doxycycline hyclate 100 mg oral capsule (2 sources) Tetracycline-class Drug Start: 02-03-2025 End: 04-17-2025 take 1 capsule by mouth twice daily Doxycycline Hyclate 100 mg capsule Discontinued 100 mg PO TWICE A DAY 14 0 February 02, 2025 11:00pm April 17, 2025 9:22am 0.4 ml enoxaparin sodium 100 mg/ml prefilled [...] by mouth daily. 0 05/15/2022 Discontinued (Error) furosemide 40 mg oral tablet (2 sources) Loop Diuretic Start: 02-03-2025 End: 04-17-2025 take 1 tablet by mouth once daily Furosemide (Lasix) 40 mg tablet Discontinued 40 mg PO DAILY 30 0 February 02, 2025 11:00pm April 17, 2025 9:22am glucagon (rdna) 1 mg injection (1 source) [...] as needed hydrOXYzine (ATARAX) tablet 50 mg [place] (2 sources) Start: 06-09-2022 End: 06-10-2022 take [...] at 1100 take 2 tablets by mo uth at bedtime melatonin 3 mg tablet Take [...] (1 source) End: 07-08-2022 zinc oxide-white petrolatum (Prasanna Moist Barrier-Zinc) 10-78 % cream Apply 1 application topically 2 (two) times a day if needed. 0 07/08/2022 Discontinued (Stop Taking at Discharge) polyethylene glycol 3350 59591 mg powder for oral solution (5 sources) Osmotic Laxative Start: 05-15-2022 End: 07-08-2022 polyethylene glycol (MIRALAX) packet 17 g microencapsulated potassium chloride 20 meq extended release oral tablet (1 source) Start: 06-10-2022 End: 06-10-2022 potassium chloride (KLOR-CON M20) CR tablet 20 mEq Sodium Chloride (1 source) Start: 07-03-2018 End: 07-04-2018 sodium chloride (PF) (NS) flush 5 mL sulfamethoxazole 800 mg / trimethoprim 160 mg oral tablet (4 sources) Dihydrofolate Reductase Inhibitor Antibacterial, Sulfonamide Antimicrobial Start: 12-06-2024 End: 01-31-2025 Sulfamethoxazole- Trimethoprim (Bactrim Ds) 800-160 mg tablet Discontinued 1 {tbl} PO TWICE A DAY 10 December 05, 2024 11:00pm January 31, 2025 9:09pm tamsulosin hydrochloride 0.4 mg oral capsule (8 sources) alpha-Adrenergic Latrice Start: 06-09-2022 End: 07-08-2022 take 1 [...] Problem Classification Problem Date Documented Date Episodic/Chronic Chronic obstructive pulmonary disease and bronchiectasis (8 sources) Acute exacerbation of chronic obstructive airways disease; Translations: [Chronic obstructive pulmonary disease with (acute) exacerbation] Onset: 02-06-2025 01-31-2025 Chronic Diabetes mellitus without complication (11 sources) Diabetes mellitus; Translations: [Type 2 diabetes mellitus without complications] Onset: 06-28-2012 06-20-2020 Chronic Essential hypertension (5 sources) Hypertensive disorder; Translations: [Essential (primary) hypertension] Onset: 06-07-2020 06-20-2020 Chronic Fluid and electrolyte disorders (17 sources) Hyperosmolality and hypernatremia; Translations: [Lactic acidosis] Onset: 02-16-2022 Episodic Genitourinary symptoms and ill-defined conditions (3 sources) Urinary incontinence; Translations: [Unspecified urinary incontinence] Onset: 12-22-2013 06-20-2020 Chronic Impulse control disorders NEC (1 source) Homicidal thoughts; Translations: [Homicidal ideation] Chronic Late effects of cerebrovascular disease (6 sources) Hemiplegia of dominant side; Translations: [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] 01-31-2025 Chronic Mood disorders (14 sources) Bipolar I disorder; Translations: [Major depression, single episode] Onset: 06-28-2012 01-15-2017 Chronic Mood disorders (9 sources) Mood disorder with depressive features due to general medical condition; Translations: [Mood disorder due to known physiological condition with depressive features] Onset: 01-12-2017 01-20-2017 Episodic Other circulatory disease (5 sources) History of cerebrovascular accident; Translations: [Personal history of transient ischemic attack (TIA), and cerebral infarction without residual deficits] Onset: 11-07-2013 06-20-2020 Episodic Other circulatory disease (9 sources) Low blood pressure; Translations: [Hypotension, unspecified] 07-31-2024 Episodic Other connective tissue disease (2 sources) Other specified soft tissue disorders; Translations: [Other specified soft tissue disorders] Onset: 05-04-2022 Episodic Other lower respiratory disease (1 source) Shortness of breath; Translations: [Shortness of breath] Onset: 04-27-2025 Episodic Other lower respiratory disease (1 source) Dyspnea; Translations: [Shortness of breath] 04-25-2025 Episodic Other nervous system disorders (2 sources) Encephalopathy, unspecified; Translations: [Encephalopathy, unspecified] Onset: 02-16-2022 Chronic Other upper respiratory disease (6 sources) Acute bronchospasm; Translations: [Acute bronchospasm] 01-31-2025 Episodic Paralysis (3 sources) Hemiplegia; Translations: [Hemiplegia, unspecified [...] lifestyle] Episodic Respiratory failure; insufficiency; arrest (adult) (17 sources) Acute respiratory failure; Translations: [Acute respiratory failure with hypoxia] Onset: 12-18-2024 07-31-2024 Episodic Schizophrenia and other psychotic disorders (10 sources) Schizoaffective schizophrenia; Translations: [Schizoaffective disorder, unspecified] Onset: 01-12-2017 01-15-2017 Chronic Unclassified (2 sources) Patient care statuses; Translations: [Health intermediate, active care coordination] Onset: 12-04-2013 06-20-2020 Unclassified (2 sources) Emotional state finding; Translations: [Other symptoms and signs involving emotional state] Onset: 09-28-2017 06-20-2020 Unclassified (1 source) Acidosis, unspecified; Translations: [Acidosis, unspecified] Onset: 12-18-2024 Viral infection (5 sources) Disease caused by 2019-nCoV; Translations: [COVID-19] [...] involving emotional state] Onset: 09-28-2017 06-20-2020 Episodic Nausea and vomiting (1 source) Nausea with vomiting, unspecified; Translations: [Nausea with vomiting, unspecified] Onset: 12-18-2024 Episodic Other and unspecified benign neoplasm (3 sources) Polyp of colon; Translations: [Polyp of colon] Onset: 01-23-2019 06-20-2020 Episodic Other and unspecified benign neoplasm (3 sources) Adenoma of transverse colon; Translations: [Benign neoplasm of transverse colon] Onset: 08-26-2018 06-20-2020 Episodic Other circulatory disease (1 source) Hypotension, unspecified; Translations: [Hypotension, unspecified] Onset: 12-18-2024 Episodic Other injuries and conditions due to [...] [Altered mental status, unspecified] Onset: 02-16-2022 Episodic Septicemia (except in labor) (8 sources) Sepsis; Translations: [Sepsis, unspecified organism] Onset: 12-18-2024 12-05-2024 Episodic Unclassified (1 source) LAB TESTING Onset: 07-18-2020 Results Test Name Value Interpretation Reference Range Facility 12 Lead EKGon 04-17-2025 12 Lead EKG Normal [facility] Absolute lymphocyte countOrd ered By: Ovi Petit on 04-17-2025 Lymphocytes Auto (Unsp spec) [#/Vol] 1.42 10*3/uL 0.83-4.51 [facility] Absolute neutrophil countOrd ered By: Ovi Gaytanjerry on 04-17-2025 Neutrophils (Bld) [#/Vol] 3.7 10*3/uL 2.0-7.7 [facility] Anion gap in Serum or Plasma Ordered By: Ovi Petit on 04-17-2025 Anion gap [Moles/Vol] 11 mmol/L 11-09 [facility] Automated lymphocyte count a s percentage of total leukocytesOrdered By: Ovi Petit on 04-17-2025 Lymphocytes/100 WBC Auto (Unsp spec) 23.6 % [facility] BUN/creatinine ratioOrdered By: Ovi Petit on 04-17-2025 Urea nitrogen/Creatinine [Mass ratio] 13.6 mg/mg 04-16 [facility] Basic Metabolic Profile (BMP )on 04-17-2025 BUN/CRE 13.6 RATIO Normal 04-16 [facility] Comment on above: Performed By: #### L 500.2500, L503.7505, L100.0100 ####[facility] [address] [place], [address] Calcium [Mass/Vol] 9.9 mg/dL Normal 7.6-11.0 [facility] Comment on above: Performed By: #### L 500.2500, L503.7505, L100.0100 ####[facility] [address] [place], [address] Chloride [Moles/Vol] 101 mmol/L Normal 98-108 [facility] Comment on above: Performed By: #### L 500.2500, L503.7505, L100.0100 ####[facility] [address] [place], [address] CO2 [Moles/Vol] 29.9 mmol/L Normal 21.0-32.0 [facility] Comment on above: Performed By: #### L 500.2500, L503.7505, L100.0100 ####[facility] [address] [place], [address] Creatinine [Mass/Vol] 1.09 mg/dL Normal 0.70-1.20 [facility] Comment on above: Performed By: #### L 500.2500, L503.7505, L100.0100 ####[facility] [address] [place], [address] ECRCL 88.75 ml/min Normal 50-250 [facility] Comment on above: Performed By: #### L 500.2500, L503.7505, L100.0100 ####[facility] [address] [place], [address] GAP 11 Normal 5-15 [facility] Comment on above: Performed By: #### L 500.2500, L503.7505, L100.0100 ####[facility] [address] [place], [address] GFR/1.73 sq M.predicted among non-blacks MDRD (S/P/Bld) [Vol rate/Area] 80 mL/min/{1.73_m2} Normal >60 [facility] Comment on above: Result Comment: mL/m in/1.73m2 CKD-EPI Creatinine Equation (2020) Performed By: #### L 500.2500, L503.7505, L100.0100 ####[facility] [address] [place], [address] Glucose [Mass/Vol] 101 mg/dL High 70-99 [facility] Comment on above: Performed By: #### L 500.2500, L503.7505, L100.0100 ####[facility] [address] [place], [address] Potassium [Moles/Vol] 4.2 mmol/L Normal 3.3-5.1 [facility] Comment on above: Performed By: #### L 500.2500, L503.7505, L100.0100 ####[facility] [address] [place], [address] Sodium [Moles/Vol] 142 mmol/L Normal 133-145 [facility] Comment on above: Performed By: #### L 500.2500, L503.7505, L100.0100 ####[facility] [address] [place], [address] Urea nitrogen [Mass/Vol] 15 mg/dL Normal 4-19 [facility] Comment on above: Performed By: #### L 500.2500, L503.7505, L100.0100 ####[facility] [address] [place], [address] Basophil percentageOrdered B y: Ovi Petit on 04-17-2025 Basophils/100 WBC (Bld) 0.8 % 0-1 [facility] CBC W/Diff, Automatedon 03-29 Absolute Lymph 1.42 X10 3/uL Normal 0.83-4.51 [facility] Comment on above: Performed By: #### L 500.2500, L503.7505, L100.0100 ####[facility] [address] [place], [address] Absolute Neut 3.7 X10 3/uL Normal 2.0-7.7 [facility] Comment on above: Performed By: #### L 500.2500, L503.7505, L100.0100 ####[facility] [address] [place], [address] Basophils/100 WBC (Bld) 0.8 % Normal 0-1 [facility] Comment on above: Performed By: #### L 500.2500, L503.7505, L100.0100 ####[facility] [address] [place], [address] Eosinophils/100 WBC (Bld) 3.8 % Normal 0-5 [facility] Comment on above: Performed By: #### L 500.2500, L503.7505, L100.0100 ####[facility] [address] [place], [address] Erythrocyte distribution width (RBC) [Ratio] 15.6 % High 11.6-14.6 [facility] Comment on above: Performed By: #### L 500.2500, L503.7505, L100.0100 ####[facility] [address] [place], [address] Hematocrit (Bld) [Volume fraction] 41.1 % Normal 40-54 [facility] Comment on above: Performed By: #### L 500.2500, L503.7505, L100.0100 ####[facility] [address] [place], [address] Hemoglobin (Bld) [Mass/Vol] 12.5 g/dL Low 13.0-16.5 [facility] Comment on above: Performed By: #### L 500.2500, L503.7505, L100.0100 ####[facility] [address] [place], [address] IG% 0.300 Normal 0.0-0.9 [facility] Comment on above: Result Comment: IG% - Immature Granulocytes (promyelocytes, myelocytes andmetamyelocytes) > 1% indicates that a LEFT SHIFT is Present. Performed By: #### L 500.2500, L503.7505, L100.0100 ####[facility] [address] [place], [address] Lymphocytes/100 WBC (Bld) 23.6 % Normal 19-41 [facility] Comment on above: Performed By: #### L 500.2500, L503.7505, L100.0100 ####[facility] [address] [place], [address] MCH (RBC) [Entitic mass] 26.2 pg Low 27.0-32.0 [facility] Comment on above: Performed By: #### L 500.2500, L503.7505, L100.0100 ####[facility] [address] [place], [address] MCHC (RBC) [Mass/Vol] 30.4 g/dL Low 32-36 [facility] Comment on above: Performed By: #### L 500.2500, L503.7505, L100.0100 ####[facility] [address] [place], [address] MCV (RBC) [Entitic vol] 86.0 fL Normal 80-94 [facility] Comment on above: Performed By: #### L 500.2500, L503.7505, L100.0100 ####[facility] [address] [place], [address] Monocytes/100 WBC (Bld) 9.5 % Normal 0-10 [facility] Comment on above: Performed By: #### L 500.2500, L503.7505, L100.0100 ####[facility] [address] [place], [address] Neutrophils/100 WBC (Bld) 62.0 % Normal 47-70 [facility] Comment on above: Performed By: #### L 500.2500, L503.7505, L100.0100 ####[facility] [address] [place], [address] Nucleated RBC (Bld) [#/Vol] 0 10*3/uL Normal 0-5 [facility] Comment on above: Performed By: #### L 500.2500, L503.7505, L100.0100 ####[facility] [address] [place], [address] Platelet mean volume (Bld) [Entitic vol] 9.3 fL Normal 6.2-12.0 [facility] Comment on above: Performed By: #### L 500.2500, L503.7505, L100.0100 ####[facility] [address] [place], [address] Platelets (Bld) [#/Vol] 243 10*3/uL Normal 150-450 [facility] Comment on above: Performed By: #### L 500.2500, L503.7505, L100.0100 ####[facility] [address] [place], [address] RBC (Bld) [#/Vol] 4.78 10*6/uL Normal 4.6-6.2 [facility] Comment on above: Performed By: #### L 500.2500, L503.7505, L100.0100 ####[facility] [address] [place], [address] RDW SD 48.9 fl High 35.1-43.9 [facility] Comment on above: Performed By: #### L 500.2500, L503.7505, L100.0100 ####[facility] [address] [place], [address] WBC (Bld) [#/Vol] 6.0 10*3/uL Normal 4.4-11.0 [facility] Comment on above: Performed By: #### L 500.2500, L503.7505, L100.0100 ####[facility] [address] [place], [address] CO2 (BldV) [Moles/Vol]Ordere d By: Ovi Petit on 04-17-2025 CO2 [Moles/Vol] 39 mmol/L High 23-33 [facility] CTA Chest W/WO Contraston CTA Chest W/WO Contrast Normal [facility] Carbon dioxide, total [Moles /volume] in Central venous bloodOrdered By: Ovi Petit on 04-17-2025 CO2 [Moles/Vol] 29.9 mmol/L 21.0-32.0 [facility] Chest 1 View (Portable)on Chest 1 View (Portable) Normal [facility] Chloride assayOrdered By: Salomón Petit on 04-17-2025 Chloride [Moles/Vol] 101 mmol/L 98-108 [facility] Electrocardiogram reportOrde red By: German Reyna on 04-17-2025 EKG study [facility] [address] [place] [address] 12 Lead EKG 04/17/25 0948 MR#: [id number] Acct: [id number] Name: RIGO GARCIA Rep #:[id number] : 1970 55 From: German ayers MD Attending Dr: Status: DEP E R Ordering Dr: Ovi Petit MD Date: Location: ED Sex: M UTD Admitted: Test Reason : SOB Blood Pressure : */* mmHG Vent. Rate : 79 BPM Atrial Rate : 79 BPM P-R Int : 158 ms QRS Dur : 84 ms QT Int : 380 ms P-R-T Axes : 62 74 31 degrees QTcB Int : 435 ms Normal sinus rhythm Normal ECG Confirmed by German Reyna ([id number]), editor index NGUYEN HOUSER ([id number]) on 51:41:46 PM Referred By: Confirmed By: German Reyna 04/18/25 1341 Date _ German Reyna MD CC: Dr. Ovi Petit MD; Dr. Mame Bright MD ~ Signed [facility] Other Emergency Department Summary on 04-17-2025 Emergency Department Summary Normal [facility] Eosinophil percentageOrdered By: Ovi Petit on 04-17-2025 Eosinophils/100 WBC (Bld) 3.8 % 0-5 [facility] Erythrocyte distribution wid th ratioOrdered By: Ovi Petit on 04-17-2025 Erythrocyte distribution width (RBC) [Ratio] 15.6 % High 11.6-14.6 [facility] Erythrocyte distribution wid th standard deviationOrdered By: Ovi Petit on 04-17-2025 Erythrocyte distribution width (RBC) [Ratio] 48.9 fl High 35.1-43.9 [facility] Glomerular filtration rate ( GFR) estimation/1.73 sq m using serum, plasma, or whole bOrdered By: Ovi Petit on 04-17-2025 GFR/1.73 sq M.predicted among non-blacks MDRD (S/P/Bld) [Vol rate/Area] 80 mL/min/{1.73_m2} >60 [facility] Comment on above: mL/min/1.73m2 CKD-EP I Creatinine Equation (2020) Hematocrit Auto (Bld) [Volum e fraction]Ordered By: Ovi Petit on 04-17-2025 Hematocrit (Bld) [Volume fraction] 41.1 % 40-54 [facility] Hemoglobin measurementOrdere d By: Ovi Petit on 04-17-2025 Hemoglobin (Bld) [Mass/Vol] 12.5 g/dL Low 13.0-16.5 [facility] Immature granulocytes/100 WB C Auto (Bld)Ordered By: Ovi Petit on 04-17-2025 Immature granulocytes/100 WBC (Bld) 0.300 % 0.0-0.9 [facility] Comment on above: IG% - Immature Granu locytes (promyelocytes, myelocytes and metamyelocytes) > 1% indicates that a LEFT SHIFT is Present. Influenza virus A and B and SARS-CoV-2 (COVID-19) and Respiratory syncytial virus RNAOrdered By: Ovi Petit on 04-17-2025 SARS-CoV-2 (COVID-19) RNA DALIA+probe Ql (Unsp spec) [facility] M100.678on 04-17-2025 M100.678 Pending SARS-CoV-2 (COVID 19) Negative INFLUENZA A Negative INFLUENZA B Negative RSV PCR Negative Normal [facility] Comment on above: Performed By: #### M 100.678 ####[facility] [address] [place], [address] MCV (mean corpuscular volume ) determinationOrdered By: Ovi Petit on 04-17-2025 MCV (RBC) [Entitic vol] 86.0 fL 80-94 [facility] Mean corpuscular hemoglobin (MCH) determinationOrdered By: Ovi Petit on 04-17-2025 MCH (RBC) [Entitic mass] 26.2 pg Low 27.0-32.0 [facility] Mean corpuscular hemoglobin concentration (MCHC) determinationOrdered By: Ovi Petit on 04-17-2025 MCHC (RBC) [Mass/Vol] 30.4 g/dL Low 32-36 [facility] Mean platelet volume determi nationOrdered By: Ovi Petit on 04-17-2025 Platelet mean volume (Bld) [Entitic vol] 9.3 fL 6.2-12.0 [facility] Monocyte percentageOrdered B y: Ovi Petit on 04-17-2025 Monocytes/100 WBC (Bld) 9.5 % 0-10 [facility] Natriuretic peptide.B prohor fredis N-Terminal [Mass/volume] in Serum or PlasmaOrdered By: Ovi Petit on 04-17-2025 Natriuretic peptide.B prohormone N-Terminal [Mass/Vol] < 36 pg/mL <900 [facility] Comment on above: Heart Failure Unlike ly: < 300 pg/mLHeart Failure Likely< 50 Years: > 450 pg/mL50-75 Years: > 900 pg/mL>75 Years: > 1800 pg/mL Neutrophil percentageOrdered By: Ovi Petit on 04-17-2025 Neutrophils/100 WBC (Bld) 62.0 % 47-70 [facility] No Panel InformationOrdered By: Ovi Petit on 04-17-2025 Blood Gas Sample Site Not entered [place] Blood Gas Specimen Type MARTI [facility] Oxygen Delivery Device Cannula [place] Nucleated red blood cell per centageOrdered By: Ovi Petit on 04-17-2025 Nucleated RBC/100 WBC (Bld) [Ratio] 0 % 0-5 [facility] Platelet countOrdered By: Salomón Petit on 04-17-2025 Platelets (Bld) [#/Vol] 243 10*3/uL 150-450 [facility] Potassium measurement (mass/ volume)Ordered By: Ovi Petit on 04-17-2025 Potassium (Unsp spec) [Mass/Vol] 4.2 mmol/L 3.3-5.1 [facility] Pro- Brain NATRIURETIC PEPTI Balta 04-17-2025 proBNP < 36 Normal <=900 [facility] Comment on above: Result Comment: Hear t Failure Unlikely: < 300 pg/mLHeart Failure Likely< 50 Years: > 450 pg/mL50-75 Years: > 900 pg/mL>75 Years: > 1800 pg/mL Performed By: #### L 500.2500, L503.7505, L100.0100 ####[facility] [address] [place], [address] RBC Auto (Bld) [#/Vol]Ordere d By: Ovi Petit on 04-17-2025 RBC (Bld) [#/Vol] 4.78 10*6/uL 4.6-6.2 [facility] Serum creatinine measurement (mass/volume)Ordered By: Ovi Petit on 04-17-2025 Creatinine [Mass/Vol] 1.09 mg/dL 0.70-1.20 [facility] Serum glucose measurement (m ass/volume)Ordered By: Ovi Petit on 04-17-2025 Glucose [Mass/Vol] 101 mg/dL High 70-99 [facility] Serum or plasma calcium michael urement (mass/volume)Ordered By: Ovi Petit on 04-17-2025 Calcium [Mass/Vol] 9.9 mg/dL 7.6-11.0 [facility] Serum or plasma urea nitroge n measurement (mass/volume)Ordered By: Ovi Petit on 04-17-2025 Urea nitrogen [Mass/Vol] 15 mg/dL 4-19 [facility] Sodium levelOrdered By: Ovi Petit on 04-17-2025 Sodium [Moles/Vol] 142 mmol/L 133-145 [facility] Venous Blood Gason Blood Gas Type MARTI Normal [facility] Comment on above: Performed By: #### L 9000.0810 ####[facility] [address] [place], [address] CO2 [Moles/Vol] 39 mmol/L High 23-33 [facility] Comment on above: Performed By: #### L 9000.0810 ####[facility] [address] [place], [address] FI02 3.0 [facility] Comment on above: Performed By: #### L 9000.0810 ####[facility] [address] [place], [address] HCO3 (Bld) [Moles/Vol] 37 mmol/L High 22-26 [place] Comment on above: Performed By: #### L 9000.0810 ####[facility] [address] [place], [address] O2 Delivery Dev Cannula Normal [facility] Comment on above: Performed By: #### L 9000.0810 ####[facility] [address] [place], [address] SITE Not entered [facility] Comment on above: Performed By: #### L 9000.0810 ####[facility] [address] [place], [address] VBG BE 13 mmol/L High -1.0-3.5 [facility] Comment on above: Performed By: #### L 9000.0810 ####[facility] [address] [place], [address] VBG pCO2 54.7 mmHg High 41-51 [facility] Comment on above: Performed By: #### L 9000.0810 ####[facility] [address] [place], [address] VBG pH 7.44 High 7.32-7.42 [facility] Comment on above: Performed By: #### L 9000.0810 ####[facility] [address] [place], [place], [address] VBG PO2 59 mmHg High 25-40 [facility] Comment on above: Performed By: #### L 9000.0810 ####[facility] [address] [place], [place], [address] VBG SO2 90 High 50-70 [facility] Comment on above: Performed By: #### L 9000.0810 ####[facility] [address] [place], [place], [address] Venous blood base excess felisha surementOrdered By: Ovi Petit on 04-17-2025 Base excess Calc (BldV) [Moles/Vol] 13 mmol/L High -1.0-3.5 [facility] Venous blood bicarbonate felisha surementOrdered By: Ovi Petit on 04-17-2025 HCO3 (Bld) [Moles/Vol] 37 mmol/L High 22-26 [place] Venous blood oxygen saturati on measurementOrdered By: Ovi Petit on 04-17-2025 Oxygen saturation in Blood 90 % High 50-70 [facility] Venous blood pH measurementO rdered By: Ovi Petit on 04-17-2025 pH (BldV) 7.44 [pH] High 7.32-7.42 [facility] Venous blood partial pressur e of carbon dioxide measurementOrdered By: Ovi Petit on 04-17-2025 CO2 (BldV) [Partial pressure] 54.7 mm[Hg] High 41-51 [facility] Venous blood partial pressur e of oxygen measurementOrdered By: Ovi Petit on 04-17-2025 Oxygen (BldV) [Partial pressure] 59 mm[Hg] High 25-40 [facility] White blood cell (WBC) count Ordered By: Ovi Petit on 04-17-2025 WBC (Bld) [#/Vol] 6.0 10*3/uL 4.4-11.0 [facility] Culture, Blood (WB)on 2024 CUB Blood cultures x2, from two different sites No growth in 5 days. Normal [facility] Comment on above: Performed By: #### L 503.6005, M200.1000, L300.4310, L300.3900, L500.4050, L100.0100 ####[facility] [address] [place], [address] Basic Metabolic Profile (BMP )on 02-04-2025 BUN Normal 4-19 [facility] Comment on above: Result Comment: Canc elled via OM: Order cancelled - Patient discharged Performed By: #### L 100.0100, L500.2500 ####[facility] [address] [place], [address] BUN/CRE Normal 10-20 [facility] Comment on above: Result Comment: Canc elled via OM: Order cancelled - Patient discharged Performed By: #### L 100.0100, L500.2500 ####[facility] [address] [place], [address] Calcium Normal 7.6-11.0 [facility] Comment on above: Result Comment: Canc elled via OM: Order cancelled - Patient discharged Performed By: #### L 100.0100, L500.2500 ####[facility] [address] [place], [address] CL Normal 98-108 [facility] Comment on above: Result Comment: Canc elled via OM: Order cancelled - Patient discharged Performed By: #### L 100.0100, L500.2500 ####[facility] [address] [place], [address] CO2 Normal 21.0-32.0 [facility] Comment on above: Result Comment: Canc elled via OM: Order cancelled - Patient discharged Performed By: #### L 100.0100, L500.2500 ####[facility] [address] [place], [address] CREAT,SERUM Normal 0.70-1.20 [facility] Comment on above: Result Comment: Canc elled via OM: Order cancelled - Patient discharged Performed By: #### L 100.0100, L500.2500 ####[facility] [address] [place], [address] eGFR Normal >60 [facility] Comment on above: Result Comment: Canc elled via OM: Order cancelled - Patient discharged Performed By: #### L 100.0100, L500.2500 ####[facility] [address] [place], [address] GAP Normal 5-15 [facility] Comment on above: Result Comment: Canc elled via OM: Order cancelled - Patient discharged Performed By: #### L 100.0100, L500.2500 ####[facility] [address] [place], [address] GLU Normal 70-99 [facility] Comment on above: Result Comment: Canc elled via OM: Order cancelled - Patient discharged Performed By: #### L 100.0100, L500.2500 ####[facility] [address] [place], [address] Potassium Normal 3.3-5.1 [facility] Comment on above: Result Comment: Canc elled via OM: Order cancelled - Patient discharged Performed By: #### L 100.0100, L500.2500 ####[facility] [address] [place], [address] Basic Metabolic Profile (BMP) Normal 133-145 [facility] Comment on above: Result Comment: Canc elled via OM: Order cancelled - Patient discharged Performed By: #### L 100.0100, L500.2500 ####[facility] [address] [place], [address] CBC W/Diff, Automatedon 08-1 0-2024 Absolute Neut Normal 2.0-7.7 [facility] Comment on above: Result Comment: Canc elled via OM: Order cancelled - Patient discharged Performed By: #### L 100.0100, L500.2500 ####[facility] [address] [place], [address] HCT Normal 40-54 [facility] Comment on above: Result Comment: Canc elled via OM: Order cancelled - Patient discharged Performed By: #### L 100.0100, L500.2500 ####[facility] [address] [place], [address] HGB Normal 13.0-16.5 [facility] Comment on above: Result Comment: Canc elled via OM: Order cancelled - Patient discharged Performed By: #### L 100.0100, L500.2500 ####[facility] [address] [place], [address] MCH Normal 27.0-32.0 [facility] Comment on above: Result Comment: Canc elled via OM: Order cancelled - Patient discharged Performed By: #### L 100.0100, L500.2500 ####[facility] [address] [place], [address] MCHC Normal 32-36 [facility] Comment on above: Result Comment: Canc elled via OM: Order cancelled - Patient discharged Performed By: #### L 100.0100, L500.2500 ####[facility] [facility] [address] [place], [address] MCV Normal 80-94 [facility] Comment on above: Result Comment: Canc elled via OM: Order cancelled - Patient discharged Performed By: #### L 100.0100, L500.2500 ####[facility] [address] [place], [address] NEUT% Normal 47-70 [facility] Comment on above: Result Comment: Canc elled via OM: Order cancelled - Patient discharged Performed By: #### L 100.0100, L500.2500 ####[facility] [address] [place], [address] PLT Normal 150-450 [facility] Comment on above: Result Comment: Canc elled via OM: Order cancelled - Patient discharged Performed By: #### L 100.0100, L500.2500 ####[facility] [address] [place], [address] RBC Normal 4.6-6.2 [facility] Comment on above: Result Comment: Canc elled via OM: Order cancelled - Patient discharged Performed By: #### L 100.0100, L500.2500 ####[facility] [address] [place], [address] RDW CV Normal 11.6-14.6 [facility] Comment on above: Result Comment: Canc elled via OM: Order cancelled - Patient discharged Performed By: #### L 100.0100, L500.2500 ####[facility] [address] [place], [address] RDW SD Normal 35.1-43.9 [facility] Comment on above: Result Comment: Canc elled via OM: Order cancelled - Patient discharged Performed By: #### L 100.0100, L500.2500 ####[facility] [address] [place], [address] WBC Normal 4.4-11.0 [facility] Comment on above: Result Comment: Canc elled via OM: Order cancelled - Patient discharged Performed By: #### L 100.0100, L500.2500 ####[facility] [address] [place], [address] Absolute lymphocyte countOrd ered By: Fredo Alberts on 02-03-2025 Lymphocytes Auto (Unsp spec) [#/Vol] 0.95 10*3/uL 0.83-4.51 [facility] Absolute neutrophil countOrd ered By: Fredo Alberts on 02-03-2025 Neutrophils (Bld) [#/Vol] 10.2 10*3/uL High 2.0-7.7 [facility] Anion gap in Serum or Plasma Ordered By: Fredo Alberts on 02-03-2025 Anion gap [Moles/Vol] 12 mmol/L 5-15 [facility] Automated lymphocyte count a s percentage of total leukocytesOrdered By: Fredo Alberts on 02-03-2025 Lymphocytes/100 WBC Auto (Unsp spec) 7.9 % Low 19-41 [facility] BUN/creatinine ratioOrdered By: Fredo Alberts on 02-03-2025 Urea nitrogen/Creatinine [Mass ratio] 19.3 mg/mg 10- [facility] Basic Metabolic Profile (BMP )on 02-03-2025 BUN/CRE 19.3 RATIO Normal 10-20 [facility] Comment on above: Performed By: #### L 100.0100, L500.2500 ####[facility] [address] [place], [address] Calcium [Mass/Vol] 9.3 mg/dL Normal 7.6-11.0 [facility] Comment on above: Performed By: #### L 100.0100, L500.2500 ####[facility] [address] [place], [address] Chloride [Moles/Vol] 97 mmol/L Low 98-108 [facility] Comment on above: Performed By: #### L 100.0100, L500.2500 ####[facility] [address] [place], [address] CO2 [Moles/Vol] 27.1 mmol/L Normal 21.0-32.0 [facility] Comment on above: Performed By: #### L 100.0100, L500.2500 ####[facility] [address] [place], [address] Creatinine [Mass/Vol] 1.09 mg/dL Normal 0.70-1.20 [facility] Comment on above: Performed By: #### L 100.0100, L500.2500 ####[facility] [address] [place], [address] ECRCL 88.53 ml/min Normal 50-250 [facility] Comment on above: Performed By: #### L 100.0100, L500.2500 ####[facility] [address] [place], [address] GAP 12 Normal 5-15 [facility] Comment on above: Performed By: #### L 100.0100, L500.2500 ####[facility] [address] [place], [address] GFR/1.73 sq M.predicted among non-blacks MDRD (S/P/Bld) [Vol rate/Area] 80 mL/min/{1.73_m2} Normal >60 [facility] Comment on above: Result Comment: mL/m in/1.73m2 CKD-EPI Creatinine Equation (2020) Performed By: #### L 100.0100, L500.2500 ####[facility] [address] [place], [address] Glucose [Mass/Vol] 337 mg/dL High 70-99 [facility] Comment on above: Performed By: #### L 100.0100, L500.2500 ####[facility] [address] [place], [address] Potassium [Moles/Vol] 4.2 mmol/L Normal 3.3-5.1 [facility] Comment on above: Performed By: #### L 100.0100, L500.2500 ####[facility] [address] [place], [address] Sodium [Moles/Vol] 136 mmol/L Normal 133-145 [facility] Comment on above: Performed By: #### L 100.0100, L500.2500 ####[facility] [address] [place], [address] Urea nitrogen [Mass/Vol] 21 mg/dL High 4-19 [facility] Comment on above: Performed By: #### L 100.0100, L500.2500 ####[facility] [address] [place], [address] Basophil percentageOrdered B y: Fredo Alberts on 02-03-2025 Basophils/100 WBC (Bld) 0.1 % 0-1 [facility] Bedside Glucoseon 02-03-2025 FINGERSTICK GLU 101 mg/dL Normal 74-106 [facility] Comment on above: Result Comment: JEFFREY GEMENT OF PATIENT CARE PER NURSING PROTOCOL Performed By: #### L 501.080 ####[facility] [address] [place], [address] FINGERSTICK GLU 336 mg/dL High 74-106 [facility] Comment on above: Result Comment: JEFFREY GEMENT OF PATIENT CARE PER NURSING PROTOCOL Performed By: #### L 501.080 ####[facility] [address] [place], [address] FINGERSTICK GLU 389 mg/dL High 74-106 [facility] Comment on above: Result Comment: JEFFREY GEMENT OF PATIENT CARE PER NURSING PROTOCOL Performed By: #### L 501.080 ####[facility] [address] [place], [address] CBC W/Diff, Automatedon 08-0 Absolute Lymph 0.95 X10 3/uL Normal 0.83-4.51 [facility] Comment on above: Performed By: #### L 100.0100, L500.2500 ####[facility] [address] [place], [address] Absolute Neut 10.2 X10 3/uL High 2.0-7.7 [facility] Comment on above: Performed By: #### L 100.0100, L500.2500 ####[facility] [address] [place], [address] Basophils/100 WBC (Bld) 0.1 % Normal 0-1 [facility] Comment on above: Performed By: #### L 100.0100, L500.2500 ####[facility] [address] [place], [address] Eosinophils/100 WBC (Bld) 0.0 % Normal 0-5 [facility] Comment on above: Performed By: #### L 100.0100, L500.2500 ####[facility] [address] [place], [address] Erythrocyte distribution width (RBC) [Ratio] 15.2 % High 11.6-14.6 [facility] Comment on above: Performed By: #### L 100.0100, L500.2500 ####[facility] [address] [place], [address] Hematocrit (Bld) [Volume fraction] 40.1 % Normal 40-54 [facility] Comment on above: Performed By: #### L 100.0100, L500.2500 ####[facility] [address] [place], [address] Hemoglobin (Bld) [Mass/Vol] 12.3 g/dL Low 13.0-16.5 [facility] Comment on above: Performed By: #### L 100.0100, L500.2500 ####[facility] [address] [place], [address] IG% 0.400 Normal 0.0-0.9 [facility] Comment on above: Result Comment: IG% - Immature Granulocytes (promyelocytes, myelocytes andmetamyelocytes) > 1% indicates that a LEFT SHIFT is Present. Performed By: #### L 100.0100, L500.2500 ####[facility] [address] [place], [address] Lymphocytes/100 WBC (Bld) 7.9 % Low 19-41 [facility] Comment on above: Performed By: #### L 100.0100, L500.2500 ####[facility] [address] [place], [address] MCH (RBC) [Entitic mass] 26.2 pg Low 27.0-32.0 [facility] Comment on above: Performed By: #### L 100.0100, L500.2500 ####[facility] [address] [place], [address] MCHC (RBC) [Mass/Vol] 30.7 g/dL Low 32-36 [facility] Comment on above: Performed By: #### L 100.0100, L500.2500 ####[facility] [address] [place], [address] MCV (RBC) [Entitic vol] 85.5 fL Normal 80-94 [facility] Comment on above: Performed By: #### L 100.0100, L500.2500 ####[facility] [address] [place], [address] Monocytes/100 WBC (Bld) 6.6 % Normal 0-10 [facility] Comment on above: Performed By: #### L 100.0100, L500.2500 ####[facility] [address] [place], [address] Neutrophils/100 WBC (Bld) 85.0 % High 47-70 [facility] Comment on above: Performed By: #### L 100.0100, L500.2500 ####[facility] [address] [place], [address] Nucleated RBC (Bld) [#/Vol] 0 10*3/uL Normal 0-5 [facility] Comment on above: Performed By: #### L 100.0100, L500.2500 ####[facility] [address] [place], [address] Platelet mean volume (Bld) [Entitic vol] 10.5 fL Normal 6.2-12.0 [facility] Comment on above: Performed By: #### L 100.0100, L500.2500 ####[facility] [address] [place], [address] Platelets (Bld) [#/Vol] 237 10*3/uL Normal 150-450 [facility] Comment on above: Performed By: #### L 100.0100, L500.2500 ####[facility] [address] [place], [address] RBC (Bld) [#/Vol] 4.69 10*6/uL Normal 4.6-6.2 [facility] Comment on above: Performed By: #### L 100.0100, L500.2500 ####[facility] [address] [place], [address] RDW SD 47.6 fl High 35.1-43.9 [facility] Comment on above: Performed By: #### L 100.0100, L500.2500 ####[facility] [address] [place], [address] WBC (Bld) [#/Vol] 12.0 10*3/uL High 4.4-11.0 [facility] Comment on above: Performed By: #### L 100.0100, L500.2500 ####[facility] [address] [place], [address] Carbon dioxide, total [Moles /volume] in Central venous bloodOrdered By: Fredo Alberts on 02-03-2025 CO2 [Moles/Vol] 27.1 mmol/L 21.0-32.0 [facility] Chloride assayOrdered By: Ed Alberts on 02-03-2025 Chloride [Moles/Vol] 97 mmol/L Low 98-108 [facility] Eosinophil percentageOrdered By: Fredo Alberts on 02-03-2025 Eosinophils/100 WBC (Bld) 0.0 % 0-5 [facility] Erythrocyte distribution wid th ratioOrdered By: Fredo Alberts on 02-03-2025 Erythrocyte distribution width (RBC) [Ratio] 15.2 % High 11.6-14.6 [facility] Erythrocyte distribution wid th standard deviationOrdered By: Fredo Alberts on 02-03-2025 Erythrocyte distribution width (RBC) [Ratio] 47.6 fl High 35.1-43.9 [facility] Glomerular filtration rate ( GFR) estimation/1.73 sq m using serum, plasma, or whole bOrdered By: Fredo Alberts on 02-03-2025 GFR/1.73 sq M.predicted among non-blacks MDRD (S/P/Bld) [Vol rate/Area] 80 mL/min/{1.73_m2} >60 [facility] Comment on above: mL/min/1.73m2 CKD-EP I Creatinine Equation (2020) [facility] at [facility] deOrdered By: Fredo Alberts on 02-03-2025 Glucose [Mass/Vol] 101 mg/dL 74-106 [facility] Comment on above: MANAGEMENT OF PATIEN T CARE PER NURSING PROTOCOL Hematocrit Auto (Bld) [Volum e fraction]Ordered By: Fredo Alberts on 02-03-2025 Hematocrit (Bld) [Volume fraction] 40.1 % 40-54 [facility] Hemoglobin measurementOrdere d By: Fredo Alberts on 02-03-2025 Hemoglobin (Bld) [Mass/Vol] 12.3 g/dL Low 13.0-16.5 [facility] Immature granulocytes/100 WB C Auto (Bld)Ordered By: Fredo Alberts on 02-03-2025 Immature granulocytes/100 WBC (Bld) 0.400 % 0.0-0.9 [facility] Comment on above: IG% - Immature Granu locytes (promyelocytes, myelocytes and metamyelocytes) > 1% indicates that a LEFT SHIFT is Present. M8200.1000on 02-03-2025 M8200.1000 Normal Reference Range = Negative MRSA DNA Nose Ql DALIA+probe GeneXpert Instrument, PCR method MRSA PCR MRSA NEGATIVE Normal [facility] Comment on above: Performed By: #### M 8200.1000 ####[facility] [address] [place], [address] MCV (mean corpuscular volume ) determinationOrdered By: Fredo Alberts on 02-03-2025 MCV (RBC) [Entitic vol] 85.5 fL 80-94 [facility] Mean corpuscular hemoglobin (MCH) determinationOrdered By: Fredo Alberts on 02-03-2025 MCH (RBC) [Entitic mass] 26.2 pg Low 27.0-32.0 [facility] Mean corpuscular hemoglobin concentration (MCHC) determinationOrdered By: Fredo Alberts on 02-03-2025 MCHC (RBC) [Mass/Vol] 30.7 g/dL Low 32-36 [facility] Mean platelet volume determi nationOrdered By: Fredo Alberts on 02-03-2025 Platelet mean volume (Bld) [Entitic vol] 10.5 fL 6.2-12.0 [facility] Monocyte percentageOrdered B y: Fredo Alberts on 02-03-2025 Monocytes/100 WBC (Bld) 6.6 % 0-10 [facility] Neutrophil percentageOrdered By: Fredo Alberts on 02-03-2025 Neutrophils/100 WBC (Bld) 85.0 % High 47-70 [facility] Nucleated red blood cell per centageOrdered By: Fredo Alberts on 02-03-2025 Nucleated RBC/100 WBC (Bld) [Ratio] 0 % 0-5 [facility] Platelet countOrdered By: Ed Alberts on 02-03-2025 Platelets (Bld) [#/Vol] 237 10*3/uL 150-450 [facility] Potassium measurement (mass/ volume)Ordered By: Fredo Alberts on 02-03-2025 Potassium (Unsp spec) [Mass/Vol] 4.2 mmol/L 3.3-5.1 [facility] RBC Auto (Bld) [#/Vol]Ordere d By: Fredo Alberts on 02-03-2025 RBC (Bld) [#/Vol] 4.69 10*6/uL 4.6-6.2 [facility] Serum creatinine measurement (mass/volume)Ordered By: Fredo Alberts on 02-03-2025 Creatinine [Mass/Vol] 1.09 mg/dL 0.70-1.20 [facility] Serum glucose measurement (m ass/volume)Ordered By: Fredo Alberts on 02-03-2025 Glucose [Mass/Vol] 337 mg/dL High 70-99 [facility] Serum or plasma calcium michael urement (mass/volume)Ordered By: Fredo Alberts on 02-03-2025 Calcium [Mass/Vol] 9.3 mg/dL 7.6-11.0 [facility] Serum or plasma urea nitroge n measurement (mass/volume)Ordered By: Fredo Alberts on 02-03-2025 Urea nitrogen [Mass/Vol] 21 mg/dL High 4-19 [facility] Sodium levelOrdered By: Skyler Alberts on 02-03-2025 Sodium [Moles/Vol] 136 mmol/L 133-145 [facility] Trough vancomycin levelOrder ed By: Rosalva Fowler on 02-03-2025 Vancomycin trough [Mass/Vol] 24.5 ug/mL High 5.0-15.0 [facility] Comment on above: Recommended goal tro ugh ranges are generally 10-15 mcg/ml for less severe/complicated infections such as cellulitis or UTI and 15-20 mcg/ml for more severe/complicated infections such as bacteremia/sepsis, osteomyelitis, pneumonia or meningitis. Goal trough ranges should take into account indication, patient-specific factors and organism JUAN PABLO.VANCOMYCIN STANDARED DRUG THERAPY TROUGH LEVEL: 5.0 - 15.0 mg/L VANCOMYCIN HIGH INTENSITY THERAPY TROUGH LEVEL: 15.0 - 20.0 mg/L High Intensity therapy recommended for serious lifethreatening infections include:- Qvjsdvyrbr-Psbcpbbaymft-Zhxktqevu (Ventilator/Healtcare Associated)-Sepsis PLEASE CONTACT PHARMACY SERVICES (#[id number]) FOR INTERPRETATIONOF RESULTS. Vancomycin, Trough Levelon 0 02-03-2025 VANCO, TROUGH 24.5 ug/mL High 5.0-15.0 [facility] Comment on above: Order Comment: Comme nts: Trough to be drawn 30 mins prior to scheduled [id number] Result Comment: El mmended goal trough ranges are generally 10-15 mcg/mlfor less severe/complicated infections such as cellulitisor UTI and 15-20 mcg/ml for more severe/complicatedinfections such as bacteremia/sepsis, osteomyelitis,pneumonia or meningitis. Goal trough ranges should takeinto account indication, patient-specific factors andorganism JUAN PABLO.VANCOMYCIN STANDARED DRUG THERAPY TROUGH LEVEL: 5.0 - 15.0 mg/LVANCOMYCIN HIGH INTENSITY THERAPY TROUGH LEVEL: 15.0 - 20.0 mg/LHigh Intensity therapy recommended for serious lifethreatening infections include:- Uqtvhqlqtx-Stwlkrkmethn-Wlwpcjxuy (Ventilator/Healtcare Associated)-SepsisPLEASE CONTACT PHARMACY SERVICES (#[id number]) FOR INTERPRETATIONOF RESULTS. Performed By: #### L 501.8820 ####[facility] [address] [place], [address] White blood cell (WBC) count Ordered By: Fredo Alberts on 02-03-2025 WBC (Bld) [#/Vol] 12.0 10*3/uL High 4.4-11.0 [facility] Basic Metabolic Profile (BMP )on 02-02-2025 BUN/CRE 15.7 RATIO Normal 10-20 [facility] Comment on above: Performed By: #### L 503.7505, L500.2500, L501.2300, L501.5200, L100.0100 ####[facility] [address] [place], [address] Calcium [Mass/Vol] 9.7 mg/dL Normal 7.6-11.0 [facility] Comment on above: Performed By: #### L 503.7505, L500.2500, L501.2300, L501.5200, L100.0100 ####[facility] [address] [place], [address] Chloride [Moles/Vol] 101 mmol/L Normal 98-108 [facility] Comment on above: Performed By: #### L 503.7505, L500.2500, L501.2300, L501.5200, L100.0100 ####[facility] [address] [place], [address] CO2 [Moles/Vol] 25.8 mmol/L Normal 21.0-32.0 [facility] Comment on above: Performed By: #### L 503.7505, L500.2500, L501.2300, L501.5200, L100.0100 ####[facility] [address] [place], [address] Creatinine [Mass/Vol] 0.93 mg/dL Normal 0.70-1.20 [facility] Comment on above: Performed By: #### L 503.7505, L500.2500, L501.2300, L501.5200, L100.0100 ####[facility] [address] [place], [address] ECRCL 102.75 ml/min Normal 50-250 [facility] Comment on above: Performed By: #### L 503.7505, L500.2500, L501.2300, L501.5200, L100.0100 ####[facility] [address] [place], [address] GAP 12 Normal 5-15 [facility] Comment on above: Performed By: #### L 503.7505, L500.2500, L501.2300, L501.5200, L100.0100 ####[facility] [address] [place], [address] GFR/1.73 sq M.predicted among non-blacks MDRD (S/P/Bld) [Vol rate/Area] 97 mL/min/{1.73_m2} Normal >60 [facility] Comment on above: Result Comment: mL/m in/1.73m2 CKD-EPI Creatinine Equation (2020) Performed By: #### L 503.7505, L500.2500, L501.2300, L501.5200, L100.0100 ####[facility] [address] [place], [address] Glucose [Mass/Vol] 201 mg/dL High 70-99 [facility] Comment on above: Performed By: #### L 503.7505, L500.2500, L501.2300, L501.5200, L100.0100 ####[facility] [address] [place], [address] Potassium [Moles/Vol] 4.2 mmol/L Normal 3.3-5.1 [facility] Comment on above: Performed By: #### L 503.7505, L500.2500, L501.2300, L501.5200, L100.0100 ####[facility] [address] [place], [address] Sodium [Moles/Vol] 139 mmol/L Normal 133-145 [facility] Comment on above: Performed By: #### L 503.7505, L500.2500, L501.2300, L501.5200, L100.0100 ####[facility] [address] [place], [address] Urea nitrogen [Mass/Vol] 15 mg/dL Normal 4-19 [facility] Comment on above: Performed By: #### L 503.7505, L500.2500, L501.2300, L501.5200, L100.0100 ####[facility] [address] [place], [address] Bedside Glucoseon 02-02-2025 FINGERSTICK GLU 209 mg/dL High 74-106 [facility] Comment on above: Result Comment: JEFFREY BWOIE OF PATIENT CARE PER NURSING PROTOCOL Performed By: #### L 501.080 ####[facility] [address] [place], [address] FINGERSTICK GLU 212 mg/dL High 74-106 [facility] Comment on above: Result Comment: JEFFREY GEMENT OF PATIENT CARE PER NURSING PROTOCOL Performed By: #### L 501.080 ####[facility] [address] [place], [address] FINGERSTICK GLU 212 mg/dL High 74-106 [facility] Comment on above: Result Comment: JEFFREY GEMENT OF PATIENT CARE PER NURSING PROTOCOL Performed By: #### L 501.080 ####[facility] [address] [place], [address] FINGERSTICK GLU 224 mg/dL High 74-106 [facility] Comment on above: Result Comment: JEFFREY GEMENT OF PATIENT CARE PER NURSING PROTOCOL Performed By: #### L 501.080 ####[facility] [address] [place], [address] CBC W/Diff, Automatedon 08-0 8-2024 Absolute Lymph 0.88 X10 3/uL Normal 0.83-4.51 [facility] Comment on above: Performed By: #### L 503.7505, L500.2500, L501.2300, L501.5200, L100.0100 ####[facility] [address] [place], [address] Absolute Neut 10.1 X10 3/uL High 2.0-7.7 [facility] Comment on above: Performed By: #### L 503.7505, L500.2500, L501.2300, L501.5200, L100.0100 ####[facility] [address] [place], [address] Basophils/100 WBC (Bld) 0.1 % Normal 0-1 [facility] Comment on above: Performed By: #### L 503.7505, L500.2500, L501.2300, L501.5200, L100.0100 ####[facility] [address] [place], [address] Eosinophils/100 WBC (Bld) 0.0 % Normal 0-5 [facility] Comment on above: Performed By: #### L 503.7505, L500.2500, L501.2300, L501.5200, L100.0100 ####[facility] [address] [place], [address] Erythrocyte distribution width (RBC) [Ratio] 15.3 % High 11.6-14.6 [facility] Comment on above: Performed By: #### L 503.7505, L500.2500, L501.2300, L501.5200, L100.0100 ####[facility] [address] [place], [address] Hematocrit (Bld) [Volume fraction] 41.4 % Normal 40-54 [facility] Comment on above: Performed By: #### L 503.7505, L500.2500, L501.2300, L501.5200, L100.0100 ####[facility] [address] [place], [address] Hemoglobin (Bld) [Mass/Vol] 12.4 g/dL Low 13.0-16.5 [facility] Comment on above: Performed By: #### L 503.7505, L500.2500, L501.2300, L501.5200, L100.0100 ####[facility] [address] [place], [address] IG% 0.300 Normal 0.0-0.9 [facility] Comment on above: Result Comment: IG% - Immature Granulocytes (promyelocytes, myelocytes andmetamyelocytes) > 1% indicates that a LEFT SHIFT is Present. Performed By: #### L 503.7505, L500.2500, L501.2300, L501.5200, L100.0100 ####[facility] [address] [place], [address] Lymphocytes/100 WBC (Bld) 7.5 % Low 19-41 [facility] Comment on above: Performed By: #### L 503.7505, L500.2500, L501.2300, L501.5200, L100.0100 ####[facility] [address] [place], [address] MCH (RBC) [Entitic mass] 26.1 pg Low 27.0-32.0 [facility] Comment on above: Performed By: #### L 503.7505, L500.2500, L501.2300, L501.5200, L100.0100 ####[facility] [address] [place], [address] MCHC (RBC) [Mass/Vol] 30.0 g/dL Low 32-36 [facility] Comment on above: Performed By: #### L 503.7505, L500.2500, L501.2300, L501.5200, L100.0100 ####[facility] [address] [place], [address] MCV (RBC) [Entitic vol] 87.0 fL Normal 80-94 [facility] Comment on above: Performed By: #### L 503.7505, L500.2500, L501.2300, L501.5200, L100.0100 ####[facility] [address] [place], [address] Monocytes/100 WBC (Bld) 6.1 % Normal 0-10 [facility] Comment on above: Performed By: #### L 503.7505, L500.2500, L501.2300, L501.5200, L100.0100 ####[facility] [address] [place], [address] Neutrophils/100 WBC (Bld) 86.0 % High 47-70 [facility] Comment on above: Performed By: #### L 503.7505, L500.2500, L501.2300, L501.5200, L100.0100 ####[facility] [address] [place], [address] Nucleated RBC (Bld) [#/Vol] 0 10*3/uL Normal 0-5 [facility] Comment on above: Performed By: #### L 503.7505, L500.2500, L501.2300, L501.5200, L100.0100 ####[facility] [address] [place], [address] Platelet mean volume (Bld) [Entitic vol] 10.7 fL Normal 6.2-12.0 [facility] Comment on above: Performed By: #### L 503.7505, L500.2500, L501.2300, L501.5200, L100.0100 ####[facility] [address] [place], [address] Platelets (Bld) [#/Vol] 221 10*3/uL Normal 150-450 [facility] Comment on above: Performed By: #### L 503.7505, L500.2500, L501.2300, L501.5200, L100.0100 ####[facility] [address] [place], [address] RBC (Bld) [#/Vol] 4.76 10*6/uL Normal 4.6-6.2 [facility] Comment on above: Performed By: #### L 503.7505, L500.2500, L501.2300, L501.5200, L100.0100 ####[facility] [address] [place], [address] RDW SD 48.5 fl High 35.1-43.9 [facility] Comment on above: Performed By: #### L 503.7505, L500.2500, L501.2300, L501.5200, L100.0100 ####[facility] [address] [place], [address] WBC (Bld) [#/Vol] 11.7 10*3/uL High 4.4-11.0 [facility] Comment on above: Performed By: #### L 503.7505, L500.2500, L501.2300, L501.5200, L100.0100 ####[facility] [address] [place], [address] Legionella Antigen Urineon 0 02-02-2025 LEGU Normal [facility] Comment on above: Performed By: #### M 100.638, M300.4500, M300.4600 ####[facility] [address] [place], [address] Magnesiumon 02-02-2025 Magnesium [Mass/Vol] 1.6 mg/dL Normal 1.5-2.2 [facility] Comment on above: Performed By: #### L 503.7505, L500.2500, L501.2300, L501.5200, L100.0100 ####[facility] [address] [place], [address] Magnesium measurement (mass/ volume)Ordered By: Fredo Alberts on 02-02-2025 Magnesium (Unsp spec) [Mass/Vol] 1.6 mg/dL 1.5-2.2 [facility] Natriuretic peptide.B prohor fredis N-Terminal [Mass/volume] in Serum or PlasmaOrdered By: Fredo Albetrs on 02-02-2025 Natriuretic peptide.B prohormone N-Terminal [Mass/Vol] 420 pg/mL <900 [facility] Comment on above: Heart Failure Unlike ly: < 300 pg/mLHeart Failure Likely< 50 Years: > 450 pg/mL50-75 Years: > 900 pg/mL>75 Years: > 1800 pg/mL Phosphoruson 02-02-2025 Phosphate [Mass/Vol] 3.3 mg/dL Normal 2.7-4.5 [facility] Comment on above: Performed By: #### L 501.2300 ####[facility] [address] [place], [address] Phosphate [Mass/Vol] 2.6 mg/dL Low 2.7-4.5 [facility] Comment on above: Performed By: #### L 503.7505, L500.2500, L501.2300, L501.5200, L100.0100 ####[facility] [address] [place], [address] Pro- Brain NATRIURETIC PEPTI Balta 02-02-2025 Natriuretic peptide B (Bld) [Mass/Vol] 420 pg/mL Normal <=900 [facility] Comment on above: Result Comment: Hear t Failure Unlikely: < 300 pg/mLHeart Failure Likely< 50 Years: > 450 pg/mL50-75 Years: > 900 pg/mL>75 Years: > 1800 pg/mL Performed By: #### L 503.7505, L500.2500, L501.2300, L501.5200, L100.0100 ####[facility] [address] [place], [address] Strep pneumoniae Antig(UR,CS F)on 02-02-2025 STPAG Normal [facility] Comment on above: Performed By: #### M 100.638, M300.4500, M300.4600 ####[facility] [address] [place], [address] 12 Lead EKGon 02-01-2025 12 Lead EKG Normal [facility] Assessment of wrist artery p atency prior to arterial punctureOrdered By: Rosalva Fowler on 02-01-2025 Arterial patency Wrist artery --pre arterial puncture Positive [facility] Bedside Glucoseon 02-01-2025 FINGERSTICK GLU 250 mg/dL High 74-106 [facility] Comment on above: Result Comment: Dext juan josé 50 GivenDr Orders FollowedMANAGEMENT OF PATIENT CARE PER NURSING PROTOCOL Performed By: #### L 501.080 ####[facility] [address] [place], [address] FINGERSTICK GLU 257 mg/dL High 74-106 [facility] Comment on above: Result Comment: JEFFREY GEMENT OF PATIENT CARE PER NURSING PROTOCOL Performed By: #### L 501.080 ####[facility] [address] [place], [address] FINGERSTICK GLU 186 mg/dL High 74-106 [facility] Comment on above: Result Comment: JEFFREY GEMENT OF PATIENT CARE PER NURSING PROTOCOL Performed By: #### L 501.080 ####[facility] [address] [place], [address] FINGERSTICK GLU 176 mg/dL High -106 [facility] Comment on above: Result Comment: JEFFREY GEMENT OF PATIENT CARE PER NURSING PROTOCOL Performed By: #### L 501.080 ####[facility] [address] [place], [address] Bilirubin, totalOrdered By: Rosalva Fowler on 02-01-2025 Bilirubin [Mass/Vol] 0.25 mg/dL 0.00-1.30 [facility] ALIN TEST Positive Normal [facility] Comment on above: Performed By: #### L 9000.0800 ####[facility] [address] [place], [address] Base excess Calc (Bld) [Moles/Vol] 1 mmol/L Normal -2 to +2 [facility] Comment on above: Performed By: #### L 9000.0800 ####[facility] [address] [place], [address] Blood Gas Type ART Normal [facility] Comment on above: Performed By: #### L 9000.0800 ####[facility] [address] [place], [address] CO2 [Moles/Vol] 29 mmol/L Normal [facility] Comment on above: Performed By: #### L 9000.0800 ####[facility] [address] [place], [address] FI02 50.0 Normal [facility] Comment on above: Performed By: #### L 9000.0800 ####[facility] [address] [place], [address] HCO3 (Bld) [Moles/Vol] 27.5 mmol/L High 22-26 [facility] Comment on above: Performed By: #### L 9000.0800 ####[facility] [address] [place], [address] Mode Not entered Normal [facility] Comment on above: Performed By: #### L 9000.0800 ####[facility] [address] [place], [address] O2 Delivery Dev CPAP Normal [facility] Comment on above: Performed By: #### L 9000.0800 ####[facility] [address] [place], [address] pCO2 54.3 mmHg High 35-45 [facility] Comment on above: Performed By: #### L 9000.0800 ####[facility] [address] [place], [address] pH (Bld) 7.31 [pH] Low 7.35-7.45 [facility] Comment on above: Performed By: #### L 9000.0800 ####[facility] [address] [place], [address] PO2 82 mmHG Normal 75-100 [facility] Comment on above: Performed By: #### L 9000.0800 ####[facility] [address] [place], [address] SITE L Radial Normal [facility] Comment on above: Performed By: #### L 9000.0800 ####[facility] [address] [place], [address] SO2 95 Normal 95-99 [facility] Comment on above: Performed By: #### L 9000.0800 ####[facility] [address] [place], [address] Blood base excess determinat ionOrdered By: Rosalva Fowler on 02-01-2025 Base excess Calc (BldV) [Moles/Vol] 1 mmol/L -2-2 [facility] Blood bicarbonate measuremen tOrdered By: Rosalva Fowler on 02-01-2025 HCO3 (Bld) [Moles/Vol] 27.5 mmol/L High 22-26 [facility] CBC W/Diff, Automatedon 08-0 Absolute Lymph 0.42 X10 3/uL Low 0.83-4.51 [facility] Comment on above: Performed By: #### L 500.4050, L100.0100 ####[facility] [address] [place], [address] Absolute Neut 9.2 X10 3/uL High 2.0-7.7 [facility] Comment on above: Performed By: #### L 500.4050, L100.0100 ####[facility] [address] [place], [address] Basophils/100 WBC (Bld) 0.1 % Normal 0-1 [facility] Comment on above: Performed By: #### L 500.4050, L100.0100 ####[facility] [address] [place], [address] Eosinophils/100 WBC (Bld) 0.0 % Normal 0-5 [facility] Comment on above: Performed By: #### L 500.4050, L100.0100 ####[facility] [address] [place], [address] Erythrocyte distribution width (RBC) [Ratio] 15.3 % High 11.6-14.6 [facility] Comment on above: Performed By: #### L 500.4050, L100.0100 ####[facility] [address] [place], [address] Hematocrit (Bld) [Volume fraction] 41.2 % Normal 40-54 [facility] Comment on above: Performed By: #### L 500.4050, L100.0100 ####[facility] [address] [place], [address] Hemoglobin (Bld) [Mass/Vol] 12.2 g/dL Low 13.0-16.5 [facility] Comment on above: Performed By: #### L 500.4050, L100.0100 ####[facility] [address] [place], [address] IG% 0.300 Normal 0.0-0.9 [facility] Comment on above: Result Comment: IG% - Immature Granulocytes (promyelocytes, myelocytes andmetamyelocytes) > 1% indicates that a LEFT SHIFT is Present. Performed By: #### L 500.4050, L100.0100 ####[facility] [address] [place], [address] Lymphocytes/100 WBC (Bld) 4.3 % Low 19-41 [facility] Comment on above: Performed By: #### L 500.4050, L100.0100 ####[facility] [address] [place], [address] MCH (RBC) [Entitic mass] 26.1 pg Low 27.0-32.0 [facility] Comment on above: Performed By: #### L 500.4050, L100.0100 ####[facility] [address] [place], [address] MCHC (RBC) [Mass/Vol] 29.6 g/dL Low 32-36 [facility] Comment on above: Performed By: #### L 500.4050, L100.0100 ####[facility] [address] [place], [address] MCV (RBC) [Entitic vol] 88.2 fL Normal 80-94 [facility] Comment on above: Performed By: #### L 500.4050, L100.0100 ####[facility] [address] [place], [address] Monocytes/100 WBC (Bld) 1.1 % Normal 0-10 [facility] Comment on above: Performed By: #### L 500.4050, L100.0100 ####[facility] [address] [place], [address] Neutrophils/100 WBC (Bld) 94.2 % High 47-70 [facility] Comment on above: Performed By: #### L 500.4050, L100.0100 ####[facility] [address] [place], [address] Nucleated RBC (Bld) [#/Vol] 0 10*3/uL Normal 0-5 [facility] Comment on above: Performed By: #### L 500.4050, L100.0100 ####[facility] [address] [place], [address] Platelet mean volume (Bld) [Entitic vol] 10.2 fL Normal 6.2-12.0 [facility] Comment on above: Performed By: #### L 500.4050, L100.0100 ####[facility] [address] [place], [address] Platelets (Bld) [#/Vol] 207 10*3/uL Normal 150-450 [facility] Comment on above: Performed By: #### L 500.4050, L100.0100 ####[facility] [address] [place], [address] RBC (Bld) [#/Vol] 4.67 10*6/uL Normal 4.6-6.2 [facility] Comment on above: Performed By: #### L 500.4050, L100.0100 ####[facility] [address] [place], [address] RDW SD 49.1 fl High 35.1-43.9 [facility] Comment on above: Performed By: #### L 500.4050, L100.0100 ####[facility] [address] [place], [address] WBC (Bld) [#/Vol] 9.7 10*3/uL Normal 4.4-11.0 [facility] Comment on above: Performed By: #### L 500.4050, L100.0100 ####[facility] [address] [place], [address] Comprehensive Metabolic Prof [facility] 02-01-2025 Albumin [Mass/Vol] 4.1 g/dL Normal 3.5-5.0 [facility] Comment on above: Performed By: #### L 500.4050, L100.0100 ####[facility] [address] [place], [address] Albumin/Globulin [Mass ratio] 1.6 {ratio} Normal 0.9-2.4 [facility] Comment on above: Performed By: #### L 500.4050, L100.0100 ####[facility] [address] [place], [address] ALK PHOS 130 U/L High 40-129 [facility] Comment on above: Performed By: #### L 500.4050, L100.0100 ####[facility] [address] [place], [address] ALT [Catalytic activity/Vol] 7 U/L Normal <=46 [facility] Comment on above: Performed By: #### L 500.4050, L100.0100 ####[facility] [address] [place], [address] AST [Catalytic activity/Vol] 18 U/L Normal <=37 [facility] Comment on above: Performed By: #### L 500.4050, L100.0100 ####[facility] [address] [place], [address] Bilirubin [Mass/Vol] 0.25 mg/dL Normal 0.00-1.30 [facility] Comment on above: Performed By: #### L 500.4050, L100.0100 ####[facility] [address] [place], [address] BUN/CRE 13.3 RATIO Normal 10-20 [facility] Comment on above: Performed By: #### L 500.4050, L100.0100 ####[facility] [address] [place], [address] Calcium [Mass/Vol] 9.2 mg/dL Normal 7.6-11.0 [facility] Comment on above: Performed By: #### L 500.4050, L100.0100 ####[facility] [address] [place], [address] Chloride [Moles/Vol] 104 mmol/L Normal 98-108 [facility] Comment on above: Performed By: #### L 500.4050, L100.0100 ####[facility] [address] [place], [address] CO2 [Moles/Vol] 22.1 mmol/L Normal 21.0-32.0 [facility] Comment on above: Performed By: #### L 500.4050, L100.0100 ####[facility] [address] [place], [address] Creatinine [Mass/Vol] 1.09 mg/dL Normal 0.70-1.20 [facility] Comment on above: Performed By: #### L 500.4050, L100.0100 ####[facility] [address] [place], [address] ECRCL 86.49 ml/min Normal 50-250 [facility] Comment on above: Performed By: #### L 500.4050, L100.0100 ####[facility] [address] [place], [address] GAP 15 Normal 5-15 [facility] Comment on above: Performed By: #### L 500.4050, L100.0100 ####[facility] [address] [place], [address] GFR/1.73 sq M.predicted among non-blacks MDRD (S/P/Bld) [Vol rate/Area] 80 mL/min/{1.73_m2} Normal >60 [facility] Comment on above: Result Comment: mL/m in/1.73m2 CKD-EPI Creatinine Equation (2020) Performed By: #### L 500.4050, L100.0100 ####[facility] [address] [place], [address] Globulin (S) [Mass/Vol] 2.6 g/dL Normal 2.2-4.2 [facility] Comment on above: Performed By: #### L 500.4050, L100.0100 ####[facility] [address] [place], [address] Glucose [Mass/Vol] 195 mg/dL High 70-99 [facility] Comment on above: Performed By: #### L 500.4050, L100.0100 ####[facility] [address] [place], [address] Potassium [Moles/Vol] 4.6 mmol/L Normal 3.3-5.1 [facility] Comment on above: Performed By: #### L 500.4050, L100.0100 ####[facility] [address] [place], [address] Sodium [Moles/Vol] 141 mmol/L Normal 133-145 [facility] Comment on above: Performed By: #### L 500.4050, L100.0100 ####[facility] [address] [place], [address] T PROT 6.7 g/dL Normal 5.9-8.4 [facility] Comment on above: Performed By: #### L 500.4050, L100.0100 ####[facility] [address] [place], [address] Urea nitrogen [Mass/Vol] 15 mg/dL Normal 4-19 [facility] Comment on above: Performed By: #### L 500.4050, L100.0100 ####[facility] [address] [place], [address] Electrocardiogram reportOrde red By: Salvador Rodriguez on 02-01-2025 EKG study [facility] [address] [place] [address] 12 Lead EKG 02/01/25 0517 MR#: [id number] Acct: [id number] Name: RIGO GARCIA Rep #:[id number] : 1970 55 From: Salvador Rodriguez MD Attending Dr: Dr. Fredo Alberts MD Status: ADM IN Ordering Dr: Rosalva Fowler MD Date: 02/01/25 Location: [facility] Sex: M UTD Admitted: 01/31/25 Test Reason : AM EKG Blood Pressure : */* mmHG Vent. Rate : 70 BPM Atrial Rate : 70 BPM P-R Int : 192 ms QRS Dur : 82 ms QT Int : 376 ms P-R-T Axes : 53 74 29 degrees QTcB Int : 406 ms Normal sinus rhythm Normal ECG When compared with ECG of 31-Jan-2025 20:28, MANUAL COMPARISON REQUIRED DATA IS UNCONFIRMED Confirmed by SALVADOR RODRIGUEZ MD ([id number]), editor index MARY BALTAZAR ([id number]) on 02/01/2025 9:30:18 AM Referred By: JANETH Confirmed By: SALVADOR RODRIGUEZ MD 02/01/25929 Date _ Salvador Rodriguez MD CC: Dr. Rosalva Fowler MD; Dr. Fredo Alberts MD; Dr. Mame Bright MD ~ Signed [facility] Other l509.7001on 02-01-2025 Procalcitonin 0.16 ng/mL High <=0.10 [facility] Comment on above: Result Comment: Inte rpretation:<0.10-0.25 ng/mL: Antibiotic therapy discouraged. Bacterialinfection unlikely.0.25-0.50 ng/mL: Antibiotic therapy encouraged. Bacterialinfection possible.>0.50 ng/mL: Antibiotic therapy strongly encouraged.Suggestive of presence of bacterial infection.PCT should always be interpreted in the clinical context ofthe patient. Therefore, clinicians should use the PCTresults in conjunction with other laboratory findings andclinical signs of the patient. Performed By: #### L 232.7948 ####[facility] [address] [place], [place], [address] Laboratory - Chemistry and C hemistry - challengeOrdered By: Rosalva Fowler on 02-01-2025 AST [Catalytic activity/Vol] 18 U/L <38 [facility] Lactic Acidon 02-01-2025 Lactate [Moles/Vol] 2.9 mmol/L Invalid Interpretation Code 0.0-2.0 [facility] Comment on above: Result Comment: Crit ical Result(s) Called at:0236 by:??MAE HAVEN TO MEGANGROVE Results read back by same. Performed By: #### L 326.5781 ####[facility] [address] [place], [place], [address] Lactic acid measurementOrder ed By: Keith Garcia on 02-01-2025 Lactate [Moles/Vol] 2.9 mmol/L Critically high 0.0-2.0 [facility] Comment on above: Critical Result(s) C alled at:0236 by: MAE WADE TO SILVIO LEE Results read back by same. Measurement, pHOrdered By: Tanisha Fowler on 02-01-2025 pH (Unsp spec) 7.31 [pH] Low 7.35-7.45 [facility] Nasal methicillin resistant Staphylococcus aureus (MRSA) DNA detection by PCROrdered By: Rosalva Fowler on 02-01-2025 MRSA DNA DALIA+probe Ql (Nose) [facility] MRSA DNA DALIA+probe Ql (Nose) [facility] No Panel InformationOrdered By: Rosalva Fowler on 02-01-2025 Blood Gas Sample Site L Radial [facility] Blood Gas Specimen Type ART [facility] Blood Gas Vent Mode Not entered [facility] Oxygen Delivery Device CPAP [place] RESPIRATORY PANEL MOLECULARo n 02-01-2025 RP PANEL Normal [facility] Comment on above: Performed By: #### M 100.638, M300.4500, M300.4600 ####[facility] [address] [facility] [address] [place], [place], [address] Respiratory pathogens detect ion panel by molecular detection methodOrdered By: Rosalva Fowler on 02-01-2025 Respiratory pathogens DNA and RNA panel DALIA+probe (Resp) Rhinovirus Abnormal [facility] Serum globulin measurementOr dered By: Rosalva Fowler on 02-01-2025 Globulin (S) [Mass/Vol] 2.6 g/dL 2.2-4.2 [facility] Serum or plasma alanine ramsey otransferase (ALT) measurementOrdered By: Rosalva Fowler on 02-01-2025 ALT [Catalytic activity/Vol] 7 U/L <47 [facility] Serum or plasma albumin michael urement (mass/volume)Ordered By: Rosalva Fowler on 02-01-2025 Albumin [Mass/Vol] 4.1 g/dL 3.5-5.0 [facility] Serum or plasma albumin/glob ulin mass ratioOrdered By: Rosalva Janeth on 02-01-2025 Albumin/Globulin [Mass ratio] 1.6 {ratio} 0.9-2.4 [facility] Serum or plasma alkaline katey sphatase measurementOrdered By: Rosalva Janeth on 02-01-2025 ALP [Catalytic activity/Vol] 130 U/L High 40-129 [facility] Total carbon dioxide measure mentOrdered By: on 02-01-2025 CO2 [Moles/Vol] 29 mmol/L [facility] Total proteinOrdered By: [facility] Janeth on 02-01-2025 Protein [Mass/Vol] 6.7 g/dL 5.9-8.4 [facility] 12 Lead EKGon 01-31-2025 12 Lead EKG Normal [facility] Absolute lymphocyte countOrd ered By: Keith Garcia on 01-31-2025 Lymphocytes Auto (Unsp spec) [#/Vol] 2.12 10*3/uL 0.83-4.51 [facility] Absolute neutrophil countOrd ered By: Keith Garcia on 01-31-2025 Neutrophils (Bld) [#/Vol] 6.9 10*3/uL 2.0-7.7 [facility] Activated partial thrombopla stin time (aPTT) in platelet poor plasma by coagulation aOrdered By: Keith Garcia on 01-31-2025 aPTT Coag (PPP) [Time] 26.2 s 24.1-36.2 [place] Anion gap in Serum or Plasma Ordered By: Keith Garcia on 01-31-2025 Anion gap [Moles/Vol] 12 mmol/L 5-15 [facility] Assessment of wrist artery p atency prior to arterial punctureOrdered By: Keith Garcia on 01-31-2025 Arterial patency Wrist artery --pre arterial puncture Positive [facility] Automated lymphocyte count a s percentage of total leukocytesOrdered By: Keith Garcia on 01-31-2025 Lymphocytes/100 WBC Auto (Unsp spec) 20.8 % 19-41 [facility] BUN/creatinine ratioOrdered By: Keith Garcia on 01-31-2025 Urea nitrogen/Creatinine [Mass ratio] 14.4 mg/mg 10-20 [facility] Basophil percentageOrdered B y: Keith Garcia on 01-31-2025 Basophils/100 WBC (Bld) 0.4 % 0-1 [facility] Bilirubin Test strip Ql (U)O rdered By: Keithsparkle Garcia on 01-31-2025 Bilirubin Ql (U) 1 mg/dL High Negative [facility] Comment on above: COLOR OF URINE MAY A FFECT DIPSTICK RESULTS. Bilirubin, totalOrdered By: Keith Garcia on 01-31-2025 Bilirubin [Mass/Vol] 0.27 mg/dL 0.00-1.30 [facility] Blood Gases by CPSon 025 ALIN TEST Positive Normal [facility] Comment on above: Performed By: #### L 9000.0800 ####[facility] [address] [place], [address] Base excess Calc (Bld) [Moles/Vol] -5 mmol/L Low -2 to +2 [facility] Comment on above: Performed By: #### L 9000.0800 ####[facility] [address] [place], [address] Blood Gas Type ART Normal [facility] Comment on above: Performed By: #### L 9000.0800 ####[facility] [address] [place], [address] CO2 [Moles/Vol] 22 mmol/L Normal [facility] [facility] Comment on above: Performed By: #### L 9000.0800 ####[facility] [address] [place], [address] FI02 6.0 Normal [facility] Comment on above: Performed By: #### L 9000.0800 ####[facility] [address] [place], [address] HCO3 (Bld) [Moles/Vol] 21.0 mmol/L Low 22-26 [facility] Comment on above: Performed By: #### L 9000.0800 ####[facility] [address] [place], [address] Mode Not entered Normal [facility] Comment on above: Performed By: #### L 9000.0800 ####[facility] [address] [place], [address] O2 Delivery Dev Cannula Normal [facility] Comment on above: Performed By: #### L 9000.0800 ####[facility] [address] [place], [address] pCO2 40.8 mmHg Normal 35-45 [facility] Comment on above: Performed By: #### L 9000.0800 ####[facility] [address] [place], [address] pH (Bld) 7.32 [pH] Low 7.35-7.45 [facility] Comment on above: Performed By: #### L 9000.0800 ####[facility] [address] [place], [address] PO2 65 mmHG Low 75-100 [facility] Comment on above: Performed By: #### L 9000.0800 ####[facility] [address] [place], [address] SITE L Radial Normal [facility] Comment on above: Performed By: #### L 9000.0800 ####[facility] [address] [place], [address] SO2 91 Low 95-99 [facility] Comment on above: Performed By: #### L 9000.0800 ####[facility] [address] [place], [address] Blood base excess determinat ionOrdered By: Keith Garcia on 01-31-2025 Base excess Calc (BldV) [Moles/Vol] -5 mmol/L Low -2-2 [facility] Blood bicarbonate measuremen tOrdered By: Keith Garcia on 01-31-2025 HCO3 (Bld) [Moles/Vol] 21.0 mmol/L Low 22-26 [facility] Blood cultureOrdered By: Keith Garcia on 01-31-2025 Bacteria identified Cx Nom (Bld) No growth in 5 days. [facility] Bacteria identified Cx Nom (Bld) No growth in 5 days. [facility] CBC W/Diff, Automatedon 08-0 Absolute Lymph 2.12 X10 3/uL Normal 0.83-4.51 [facility] Comment on above: Performed By: #### L 503.6005, M200.1000, L300.4310, L300.3900, L500.4050, L100.0100 ####[facility] [address] [place], [address] Absolute Neut 6.9 X10 3/uL Normal 2.0-7.7 [facility] Comment on above: Performed By: #### L 503.6005, M200.1000, L300.4310, L300.3900, L500.4050, L100.0100 ####[facility] [address] [place], [address] Basophils/100 WBC (Bld) 0.4 % Normal 0-1 [facility] Comment on above: Performed By: #### L 503.6005, M200.1000, L300.4310, L300.3900, L500.4050, L100.0100 ####[facility] [address] [place], [address] Eosinophils/100 WBC (Bld) 1.8 % Normal 0-5 [facility] Comment on above: Performed By: #### L 503.6005, M200.1000, L300.4310, L300.3900, L500.4050, L100.0100 ####[facility] [address] [place], [address] Erythrocyte distribution width (RBC) [Ratio] 15.4 % High 11.6-14.6 [facility] Comment on above: Performed By: #### L 503.6005, M200.1000, L300.4310, L300.3900, L500.4050, L100.0100 ####[facility] [address] [place], [address] Hematocrit (Bld) [Volume fraction] 42.7 % Normal 40-54 [facility] Comment on above: Performed By: #### L 503.6005, M200.1000, L300.4310, L300.3900, L500.4050, L100.0100 ####[facility] [address] [place], [address] Hemoglobin (Bld) [Mass/Vol] 13.0 g/dL Normal 13.0-16.5 [facility] Comment on above: Performed By: #### L 503.6005, M200.1000, L300.4310, L300.3900, L500.4050, L100.0100 ####[facility] [address] [place], [address] IG% 0.300 Normal 0.0-0.9 [facility] Comment on above: Result Comment: IG% - Immature Granulocytes (promyelocytes, myelocytes andmetamyelocytes) > 1% indicates that a LEFT SHIFT is Present. Performed By: #### L 503.6005, M200.1000, L300.4310, L300.3900, L500.4050, L100.0100 ####[facility] [address] [place], [address] Lymphocytes/100 WBC (Bld) 20.8 % Normal 19-41 [facility] Comment on above: Performed By: #### L 503.6005, M200.1000, L300.4310, L300.3900, L500.4050, L100.0100 ####[facility] [address] [place], [address] MCH (RBC) [Entitic mass] 26.3 pg Low 27.0-32.0 [facility] Comment on above: Performed By: #### L 503.6005, M200.1000, L300.4310, L300.3900, L500.4050, L100.0100 ####[facility] [address] [place], [address] MCHC (RBC) [Mass/Vol] 30.4 g/dL Low 32-36 [facility] Comment on above: Performed By: #### L 503.6005, M200.1000, L300.4310, L300.3900, L500.4050, L100.0100 ####[facility] [address] [place], [address] MCV (RBC) [Entitic vol] 86.3 fL Normal 80-94 [facility] Comment on above: Performed By: #### L 503.6005, M200.1000, L300.4310, L300.3900, L500.4050, L100.0100 ####[facility] [address] [place], [address] Monocytes/100 WBC (Bld) 8.8 % Normal 0-10 [facility] Comment on above: Performed By: #### L 503.6005, M200.1000, L300.4310, L300.3900, L500.4050, L100.0100 ####[facility] [address] [place], [address] Neutrophils/100 WBC (Bld) 67.9 % Normal 47-70 [facility] Comment on above: Performed By: #### L 503.6005, M200.1000, L300.4310, L300.3900, L500.4050, L100.0100 ####[facility] [address] [place], [address] Nucleated RBC (Bld) [#/Vol] 0 10*3/uL Normal 0-5 [facility] Comment on above: Performed By: #### L 503.6005, M200.1000, L300.4310, L300.3900, L500.4050, L100.0100 ####[facility] [address] [place], [address] Platelet mean volume (Bld) [Entitic vol] 10.1 fL Normal 6.2-12.0 [facility] Comment on above: Performed By: #### L 503.6005, M200.1000, L300.4310, L300.3900, L500.4050, L100.0100 ####[facility] [address] [place], [address] Platelets (Bld) [#/Vol] 239 10*3/uL Normal 150-450 [facility] Comment on above: Performed By: #### L 503.6005, M200.1000, L300.4310, L300.3900, L500.4050, L100.0100 ####[facility] [address] [place], [address] RBC (Bld) [#/Vol] 4.95 10*6/uL Normal 4.6-6.2 [facility] Comment on above: Performed By: #### L 503.6005, M200.1000, L300.4310, L300.3900, L500.4050, L100.0100 ####[facility] [address] [place], [address] RDW SD 48.1 fl High 35.1-43.9 [facility] Comment on above: Performed By: #### L 503.6005, M200.1000, L300.4310, L300.3900, L500.4050, L100.0100 ####[facility] [address] [place], [address] WBC (Bld) [#/Vol] 10.2 10*3/uL Normal 4.4-11.0 [facility] Comment on above: Performed By: #### L 503.6005, M200.1000, L300.4310, L300.3900, L500.4050, L100.0100 ####[facility] [address] [place], [address] Carbon dioxide, total [Moles /volume] in Central venous bloodOrdered By: Keith Garcia on 01-31-2025 CO2 [Moles/Vol] 28.3 mmol/L 21.0-32.0 [facility] Chest PA and Lateralon 01-31 Chest PA and Lateral Normal [facility] Chloride assayOrdered By: Arielle Garcia on 01-31-2025 Chloride [Moles/Vol] 105 mmol/L 98-108 [facility] Comprehensive Metabolic Prof ilon 01-31-2025 Albumin [Mass/Vol] 4.3 g/dL Normal 3.5-5.0 [facility] Comment on above: Performed By: #### L 503.6005, M200.1000, L300.4310, L300.3900, L500.4050, L100.0100 ####[facility] [address] [place], [address] Albumin/Globulin [Mass ratio] 1.5 {ratio} Normal 0.9-2.4 [facility] Comment on above: Performed By: #### L 503.6005, M200.1000, L300.4310, L300.3900, L500.4050, L100.0100 ####[facility] [address] [place], [address] ALK PHOS 143 U/L High 40-129 [facility] Comment on above: Performed By: #### L 503.6005, M200.1000, L300.4310, L300.3900, L500.4050, L100.0100 ####[facility] [address] [place], [address] ALT [Catalytic activity/Vol] U/L Normal <=46 [facility] Comment on above: Performed By: #### L 503.6005, M200.1000, L300.4310, L300.3900, L500.4050, L100.0100 ####[facility] [address] [place], [address] AST [Catalytic activity/Vol] 10 U/L Normal <=37 [facility] Comment on above: Performed By: #### L 503.6005, M200.1000, L300.4310, L300.3900, L500.4050, L100.0100 ####[facility] [address] [place], [address] Bilirubin [Mass/Vol] 0.27 mg/dL Normal 0.00-1.30 [facility] Comment on above: Performed By: #### L 503.6005, M200.1000, L300.4310, L300.3900, L500.4050, L100.0100 ####[facility] [address] [place], [address] BUN/CRE 14.4 RATIO Normal 10-20 [facility] Comment on above: Performed By: #### L 503.6005, M200.1000, L300.4310, L300.3900, L500.4050, L100.0100 ####[facility] [address] [place], [address] Calcium [Mass/Vol] 9.4 mg/dL Normal 7.6-11.0 [facility] Comment on above: Performed By: #### L 503.6005, M200.1000, L300.4310, L300.3900, L500.4050, L100.0100 ####[facility] [address] [place], [address] Chloride [Moles/Vol] 105 mmol/L Normal 98-108 [facility] Comment on above: Performed By: #### L 503.6005, M200.1000, L300.4310, L300.3900, L500.4050, L100.0100 ####[facility] [address] [place], [address] CO2 [Moles/Vol] 28.3 mmol/L Normal 21.0-32.0 [facility] Comment on above: Performed By: #### L 503.6005, M200.1000, L300.4310, L300.3900, L500.4050, L100.0100 ####[facility] [address] [place], [address] Creatinine [Mass/Vol] 1.17 mg/dL Normal 0.70-1.20 [facility] Comment on above: Performed By: #### L 503.6005, M200.1000, L300.4310, L300.3900, L500.4050, L100.0100 ####[facility] [address] [place], [address] ECRCL 83.51 ml/min Normal 50-250 [facility] Comment on above: Performed By: #### L 503.6005, M200.1000, L300.4310, L300.3900, L500.4050, L100.0100 ####[facility] [address] [place], [address] GAP 12 Normal 5-15 [facility] Comment on above: Performed By: #### L 503.6005, M200.1000, L300.4310, L300.3900, L500.4050, L100.0100 ####[facility] [address] [place], [address] GFR/1.73 sq M.predicted among non-blacks MDRD (S/P/Bld) [Vol rate/Area] 74 mL/min/{1.73_m2} Normal >60 [facility] Comment on above: Result Comment: mL/m in/1.73m2 CKD-EPI Creatinine Equation (2020) Performed By: #### L 503.6005, M200.1000, L300.4310, L300.3900, L500.4050, L100.0100 ####[facility] [address] [place], [address] Globulin (S) [Mass/Vol] 2.8 g/dL Normal 2.2-4.2 [facility] Comment on above: Performed By: #### L 503.6005, M200.1000, L300.4310, L300.3900, L500.4050, L100.0100 ####[facility] [address] [place], [address] Glucose [Mass/Vol] 114 mg/dL High 70-99 [facility] Comment on above: Performed By: #### L 503.6005, M200.1000, L300.4310, L300.3900, L500.4050, L100.0100 ####[facility] [address] [place], [address] Potassium [Moles/Vol] 4.3 mmol/L Normal 3.3-5.1 [facility] Comment on above: Performed By: #### L 503.6005, M200.1000, L300.4310, L300.3900, L500.4050, L100.0100 ####[facility] [address] [place], [address] Sodium [Moles/Vol] 145 mmol/L Normal 133-145 [facility] Comment on above: Performed By: #### L 503.6005, M200.1000, L300.4310, L300.3900, L500.4050, L100.0100 ####[facility] [address] [place], [place], [id number] T PROT 7.1 g/dL Normal 5.9-8.4 [facility] Comment on above: Performed By: #### L 503.6005, M200.1000, L300.4310, L300.3900, L500.4050, L100.0100 ####[facility] [address] [place], [place], [address] Urea nitrogen [Mass/Vol] 17 mg/dL Normal 4-19 [facility] Comment on above: Performed By: #### L 503.6005, M200.1000, L300.4310, L300.3900, L500.4050, L100.0100 ####[facility] [address] [place], [place], [address] Emergency Department Summary on 01-31-2025 Emergency Department Summary Normal [facility] Eosinophil percentageOrdered By: Keith Garcia on 01-31-2025 Eosinophils/100 WBC (Bld) 1.8 % 0-5 [facility] Erythrocyte distribution wid th ratioOrdered By: Keith Garcia on 01-31-2025 Erythrocyte distribution width (RBC) [Ratio] 15.4 % High 11.6-14.6 [facility] Erythrocyte distribution wid th standard deviationOrdered By: Keith Garcia on 01-31-2025 Erythrocyte distribution width (RBC) [Ratio] 48.1 fl High 35.1-43.9 [facility] Glomerular filtration rate ( GFR) estimation/1.73 sq m using serum, plasma, or whole bOrdered By: Keith Garcia on 01-31-2025 GFR/1.73 sq M.predicted among non-blacks MDRD (S/P/Bld) [Vol rate/Area] 74 mL/min/{1.73_m2} >60 [facility] Comment on above: mL/min/1.73m2 CKD-EP I Creatinine Equation (2020) H AND P Exam - [facility] 01-31-2025 H&P Exam - Hospitalist Normal [place] Hematocrit Auto (Bld) [Volum e fraction]Ordered By: Keith Garcia on 01-31-2025 Hematocrit (Bld) [Volume fraction] 42.7 % 40-54 [facility] Hemoglobin measurementOrdere d By: Keithsparkle Garcia on 01-31-2025 Hemoglobin (Bld) [Mass/Vol] 13.0 g/dL 13.0-16.5 [facility] Immature granulocytes/100 WB C Auto (Bld)Ordered By: Keithsparkle Garcia on 01-31-2025 Immature granulocytes/100 WBC (Bld) 0.300 % 0.0-0.9 [facility] Comment on above: IG% - Immature Granu locytes (promyelocytes, myelocytes and metamyelocytes) > 1% indicates that a LEFT SHIFT is Present. International normalized rat io (INR) calculationOrdered By: Keith Garcia on 01-31-2025 INR Coag (Bld) [Relative time] 1.1 {INR} [facility] Ketones Test strip Ql (U)Ord ered By: Keithsparkle Garcia on 01-31-2025 Ketones Ql (U) Negative Negative [facility] Laboratory - Chemistry and C hemistry - challengeOrdered By: Keithsparkle Garcia on 01-31-2025 AST [Catalytic activity/Vol] 10 U/L <38 [facility] Lactic Acidon 01-31-2025 Lactate [Moles/Vol] 2.2 mmol/L Invalid Interpretation Code 0.0-2.0 [facility] Comment on above: Order Comment: Y Result Comment: Crit ical Result(s) Called at: 01-31-25 21:52 to Kourtney Sparr by:??delores leonardo Results read back by same. Performed By: #### L 503.6005, M200.1000, L300.4310, L300.3900, L500.4050, L100.0100 ####[facility] [address] [place], [place], [id number] Lactic acid measurementOrder ed By: Keith Garcia on 01-31-2025 Lactate [Moles/Vol] 2.2 mmol/L High 0.0-2.0 [facility] Comment on above: Critical Result(s) C alled at: 01-31-25 21:52 to Kourtney Sparr by: delores leonardo Results read back by same. MCV (mean corpuscular volume ) determinationOrdered By: Keith Garcia on 01-31-2025 MCV (RBC) [Entitic vol] 86.3 fL 80-94 [facility] Mean corpuscular hemoglobin (MCH) determinationOrdered By: Keith Garcia on 01-31-2025 MCH (RBC) [Entitic mass] 26.3 pg Low 27.0-32.0 [facility] Mean corpuscular hemoglobin concentration (MCHC) determinationOrdered By: Keith Garcia on 01-31-2025 MCHC (RBC) [Mass/Vol] 30.4 g/dL Low 32-36 [facility] Mean platelet volume determi nationOrdered By: Keith Garcia on 01-31-2025 Platelet mean volume (Bld) [Entitic vol] 10.1 fL 6.2-12.0 [facility] Measurement, pHOrdered By: Jennifer Garcia on 01-31-2025 pH (Unsp spec) 7.32 [pH] Low 7.35-7.45 [facility] Microscopic analysis of urin e for red blood cells (RBC)Ordered By: Keith Garcia on 01-31-2025 Microscopic analysis of urine for red blood cells (RBC) 0 SEEN /hpf 0-5 [facility] Monocyte percentageOrdered B y: Keith Garcia on 01-31-2025 Monocytes/100 WBC (Bld) 8.8 % 0-10 [facility] Mucus LM Ql (Urine sed)Order ed By: Keith Garcia on 01-31-2025 Mucus Ql (Urine sed) 0 SEEN /hpf [facility] Neutrophil percentageOrdered By: Keith Garcia on 01-31-2025 Neutrophils/100 WBC (Bld) 67.9 % 47-70 [facility] Nitrite Test strip Ql (U)Ord ered By: Keith Garcia on 01-31-2025 Nitrite Ql (U) Negative Negative [facility] No Panel InformationOrdered By: Keith Garcia on 01-31-2025 Blood Gas Sample Site L Radial [facility] Blood Gas Specimen Type ART [facility] Blood Gas Vent Mode Not entered [facility] Oxygen Delivery Device Cannula [place] Nucleated red blood cell per centageOrdered By: Keith Garcia on 01-31-2025 Nucleated RBC/100 WBC (Bld) [Ratio] 0 % 0-5 [facility] Partial Thromboplast Timeon 01-31-2025 aPTT Coag (Bld) [Time] 26.2 s Normal 24.1-36.2 [place] Comment on above: Performed By: #### L 503.6005, M200.1000, L300.4310, L300.3900, L500.4050, L100.0100 ####[facility] [address] [place], [address] Platelet countOrdered By: Arielle Garcia on 01-31-2025 Platelets (Bld) [#/Vol] 239 10*3/uL 150-450 [facility] Potassium measurement (mass/ volume)Ordered By: Keith Garcia on 01-31-2025 Potassium (Unsp spec) [Mass/Vol] 4.3 mmol/L 3.3-5.1 [facility] Procalcitonin [Mass/volume] in Serum or Plasma by ImmunoassayOrdered By: Rosalva Fowler on 01-31-2025 Procalcitonin IA [Mass/Vol] 0.16 ng/mL High <0.11 [facility] Comment on above: Interpretation:<0.10 -0.25 ng/mL: Antibiotic therapy discouraged. Bacterial infection unlikely.0.25-0.50 ng/mL: Antibiotic therapy encouraged. Bacterial infection possible.>0.50 ng/mL: Antibiotic therapy strongly encouraged. Suggestive of presence of bacterial infection.PCT should always be interpreted in the clinical context of the patient. Therefore, clinicians should use the PCT results in conjunction with other laboratory findings and clinical signs of the patient. Protein Test strip Ql (U)Ord ered By: Keith Garcia on 01-31-2025 Protein Ql (U) 30 mg/dl High Negative [facility] Prothrombin Time w/INRon INR Coag (PPP) [Relative time] 1.1 {INR} Normal [facility] Comment on above: Performed By: #### L 503.6005, M200.1000, L300.4310, L300.3900, L500.4050, L100.0100 ####[facility] [address] [place], [place], [id number] PT Coag (PPP) [Time] 13.9 s Normal 11.7-14.9 [facility] Comment on above: Performed By: #### L 503.6005, M200.1000, L300.4310, L300.3900, L500.4050, L100.0100 ####[facility] [address] [place], [place], [id number] Prothrombin timeOrdered By: Keith Garcia on 01-31-2025 PT Coag (PPP) [Time] 13.9 s 11.7-14.9 [facility] RBC Auto (Bld) [#/Vol]Ordere d By: Keith Garcia on 01-31-2025 RBC (Bld) [#/Vol] 4.95 10*6/uL 4.6-6.2 [facility] Respiratory pathogens detect ion panel by molecular detection methodOrdered By: Rosalva Fowler on 01-31-2025 Respiratory pathogens DNA and RNA panel DALIA+probe (Resp) Rhinovirus Abnormal [facility] Serum creatinine measurement (mass/volume)Ordered By: Keith Garcia on 01-31-2025 Creatinine [Mass/Vol] 1.17 mg/dL 0.70-1.20 [facility] Serum globulin measurementOr dered By: Keith Garcia on 01-31-2025 Globulin (S) [Mass/Vol] 2.8 g/dL 2.2-4.2 [facility] Serum glucose measurement (m ass/volume)Ordered By: Keith Garcia on 01-31-2025 Glucose [Mass/Vol] 114 mg/dL High 70-99 [facility] Serum or plasma alanine ramsey otransferase (ALT) measurementOrdered By: Keith Garcia on 01-31-2025 ALT [Catalytic activity/Vol] U/L <47 [facility] Serum or plasma albumin michael urement (mass/volume)Ordered By: Keith Garcia on 01-31-2025 Albumin [Mass/Vol] 4.3 g/dL 3.5-5.0 [facility] Serum or plasma albumin/glob ulin mass ratioOrdered By: Keith Garcia on 01-31-2025 Albumin/Globulin [Mass ratio] 1.5 {ratio} 0.9-2.4 [facility] Serum or plasma alkaline katey sphatase measurementOrdered By: Keithsparkle Garcia on 01-31-2025 ALP [Catalytic activity/Vol] 143 U/L High 40-129 [facility] Serum or plasma calcium michael urement (mass/volume)Ordered By: Keithsparkle Garcia on 01-31-2025 Calcium [Mass/Vol] 9.4 mg/dL 7.6-11.0 [facility] Serum or plasma urea nitroge n measurement (mass/volume)Ordered By: Keithsparkle Garcia on 01-31-2025 Urea nitrogen [Mass/Vol] 17 mg/dL 4-19 [facility] Shoulder min 2 Viewson 01-31 Shoulder min 2 Views Normal [facility] Sodium levelOrdered By: Keith Garcia on 01-31-2025 Sodium [Moles/Vol] 145 mmol/L 133-145 [facility] Squamous epithelial cells de tection in urine sediment by light microscopyOrdered By: Keithsparkle Garcia on 01-31-2025 Epithelial cells.squamous LM Ql (Urine sed) 0 SEEN /hpf 0-5 [facility] Total carbon dioxide measure mentOrdered By: Keithsparkle Garcia on 01-31-2025 CO2 [Moles/Vol] 22 mmol/L [facility] Total proteinOrdered By: Keithsparkle Garcia on 01-31-2025 Protein [Mass/Vol] 7.1 g/dL 5.9-8.4 [facility] Urinalysis, Completeon 01-31 BACTERIA RARE Normal None Seen [facility] Comment on above: Order Comment: COLLE CTOR TO SPECIFY Performed By: #### L 400.0001 ####[facility] [address] [place], [address] EPI,SQUAMOUS 0 SEEN Normal 0-5 [facility] Comment on above: Order Comment: CANDE CTOR TO SPECIFY Performed By: #### L 400.0001 ####[facility] [address] [place], [address] Mucus Ql (Urine sed) 0 SEEN Normal [facility] Comment on above: Order Comment: CANDE CTOR TO SPECIFY Performed By: #### L 400.0001 ####[facility] [address] [place], [address] RBC 0 SEEN Normal 0-5 [facility] Comment on above: Order Comment: CANDE CTOR TO SPECIFY Performed By: #### L 400.0001 ####[facility] [address] [place], [address] WBC 0 SEEN Normal 0-5 [facility] Comment on above: Order Comment: CANDE CTOR TO SPECIFY Performed By: #### L 400.0001 ####[facility] [address] [place], [address] Urine Legionella pneumophila antigen detectionOrdered By: Rosalva White on 01-31-2025 L. pneumophila Ag Ql (U) [facility] L. pneumophila Ag Ql (U) [facility] Urine clarityOrdered By: Keith Garcia on 01-31-2025 Clarity (U) Clear Clear [facility] Urine color determinationOrd ered By: Keith Garcia on 01-31-2025 Color (U) Yellow Yellow [facility] Urine glucose detectionOrder ed By: Keith Garcia on 01-31-2025 Glucose Ql (U) Normal mg/dl Normal [facility] Urine leukocyte esterase det ection by dipstickOrdered By: Keith Garcia on 01-31-2025 Leukocyte esterase Test strip Ql (U) 25 /ul High Negative [facility] Urine pHOrdered By: Keith villagran on 01-31-2025 pH (U) 5.0 [pH] 5.0 - 8.0 [facility] Urine sediment bacteria coun t by microscopy (number/high power field)Ordered By: Keith Garcia on 01-31-2025 Bacteria LM.HPF (Urine sed) [#/Area] RARE /hpf None Seen [facility] Urine specific gravity measu rementOrdered By: Keith Garcia on 01-31-2025 Specific gravity (U) [Rel density] 1.020 1.002-1.030 [facility] Urine urobilinogen measureme ntOrdered By: Keith Garcia on 01-31-2025 Urobilinogen Ql (U) 4 mg/dl High Normal [facility] White blood cell (WBC) count Ordered By: Keithsparkle Garcia on 01-31-2025 WBC (Bld) [#/Vol] 10.2 10*3/uL 4.4-11.0 [facility] White blood cell countOrdere d By: Keith Garcia on 01-31-2025 White blood cell count 0 SEEN /hpf 0-5 [facility] Basic Metabolic Profile (BMP )on 12-11-2024 BUN Normal 4-19 [facility] Comment on above: Result Comment: Canc elled via OM: Order cancelled - Patient discharged Performed By: #### L 500.2500, L100.0100 ####[facility] [address] [facility] [address] BUN/CRE Normal 10-20 [facility] Comment on above: Result Comment: Canc elled via OM: Order cancelled - Patient discharged Performed By: #### L 500.2500, L100.0100 ####[facility] [address] [facility] [address] Calcium Normal 7.6-11.0 [facility] Comment on above: Result Comment: Canc elled via OM: Order cancelled - Patient discharged Performed By: #### L 500.2500, L100.0100 ####[facility] [address] [place], [address] CL Normal 98-108 [facility] Comment on above: Result Comment: Canc elled via OM: Order cancelled - Patient discharged Performed By: #### L 500.2500, L100.0100 ####[facility] [address] [place], [address] CO2 Normal 21.0-32.0 [facility] Comment on above: Result Comment: Canc elled via OM: Order cancelled - Patient discharged Performed By: #### L 500.2500, L100.0100 ####[facility] [address] [place], [address] CREAT,SERUM Normal 0.70-1.20 [facility] Comment on above: Result Comment: Canc elled via OM: Order cancelled - Patient discharged Performed By: #### L 500.2500, L100.0100 ####[facility] [address] [place], [address] eGFR Normal >60 [facility] Comment on above: Result Comment: Canc elled via OM: Order cancelled - Patient discharged Performed By: #### L 500.2500, L100.0100 ####[facility] [address] [place], [address] GAP Normal 5-15 [facility] Comment on above: Result Comment: Canc elled via OM: Order cancelled - Patient discharged Performed By: #### L 500.2500, L100.0100 ####[facility] [address] [place], [address] GLU Normal 70-99 [facility] Comment on above: Result Comment: Canc elled via OM: Order cancelled - Patient discharged Performed By: #### L 500.2500, L100.0100 ####[facility] [address] [place], [address] Potassium Normal 3.3-5.1 [facility] Comment on above: Result Comment: Canc elled via OM: Order cancelled - Patient discharged Performed By: #### L 500.2500, L100.0100 ####[facility] [address] [place], [address] Basic Metabolic Profile (BMP) Normal 133-145 [facility] Comment on above: Result Comment: Canc elled via OM: Order cancelled - Patient discharged Performed By: #### L 500.2500, L100.0100 ####[facility] [address] [place], [address] CBC W/Diff, Automatedon 06- Absolute Neut Normal 2.0-7.7 [facility] Comment on above: Result Comment: Canc elled via OM: Order cancelled - Patient discharged Performed By: #### L 500.2500, L100.0100 ####[facility] [address] [place], [address] HCT Normal 40-54 [facility] Comment on above: Result Comment: Canc elled via OM: Order cancelled - Patient discharged Performed By: #### L 500.2500, L100.0100 ####[facility] [address] [place], [address] HGB Normal 13.0-16.5 [facility] Comment on above: Result Comment: Canc elled via OM: Order cancelled - Patient discharged Performed By: #### L 500.2500, L100.0100 ####[facility] [address] [place], [address] MCH Normal 27.0-32.0 [facility] Comment on above: Result Comment: Canc elled via OM: Order cancelled - Patient discharged Performed By: #### L 500.2500, L100.0100 ####[facility] [address] [place], [address] MCHC Normal 32-36 [facility] Comment on above: Result Comment: Canc elled via OM: Order cancelled - Patient discharged Performed By: #### L 500.2500, L100.0100 ####[facility] [address] [place], [address] MCV Normal 80-94 [facility] Comment on above: Result Comment: Canc elled via OM: Order cancelled - Patient discharged Performed By: #### L 500.2500, L100.0100 ####[facility] [address] [place], [address] NEUT% Normal 47-70 [facility] Comment on above: Result Comment: Canc elled via OM: Order cancelled - Patient discharged Performed By: #### L 500.2500, L100.0100 ####[facility] [address] [place], [address] PLT Normal 150-450 [facility] Comment on above: Result Comment: Canc elled via OM: Order cancelled - Patient discharged Performed By: #### L 500.2500, L100.0100 ####[facility] [address], [address] RBC Normal 4.6-6.2 [facility] Comment on above: Result Comment: Canc elled via OM: Order cancelled - Patient discharged Performed By: #### L 500.2500, L100.0100 ####[facility] [address] [place], [address] RDW CV Normal 11.6-14.6 [facility] Comment on above: Result Comment: Canc elled via OM: Order cancelled - Patient discharged Performed By: #### L 500.2500, L100.0100 ####[facility] [address] [place], [address] RDW SD Normal 35.1-43.9 [facility] Comment on above: Result Comment: Canc elled via OM: Order cancelled - Patient discharged Performed By: #### L 500.2500, L100.0100 ####[facility] [address] [place], [address] WBC Normal 4.4-11.0 [facility] Comment on above: Result Comment: Canc elled via OM: Order cancelled - Patient discharged Performed By: #### L 500.2500, L100.0100 ####[facility] [address] [place], [address] Basic Metabolic Profile (BMP )on 12-10-2024 BUN Normal 4-19 [facility] Comment on above: Result Comment: Canc elled via OM: Order cancelled - Patient discharged Performed By: #### L 100.0100, L500.2500 ####[facility] [address] [place], [address] BUN/CRE Normal 10-20 [facility] Comment on above: Result Comment: Canc elled via OM: Order cancelled - Patient discharged Performed By: #### L 100.0100, L500.2500 ####[facility] [address] [place], [address] Calcium Normal 7.6-11.0 [facility] Comment on above: Result Comment: Canc elled via OM: Order cancelled - Patient discharged Performed By: #### L 100.0100, L500.2500 ####[facility] [address] [place], [address] CL Normal 98-108 [facility] Comment on above: Result Comment: Canc elled via OM: Order cancelled - Patient discharged Performed By: #### L 100.0100, L500.2500 ####[facility] [address] [place], [address] CO2 Normal 21.0-32.0 [facility] Comment on above: Result Comment: Canc elled via OM: Order cancelled - Patient discharged Performed By: #### L 100.0100, L500.2500 ####[facility] [address] [place], [address] CREAT,SERUM Normal 0.70-1.20 [facility] Comment on above: Result Comment: Canc elled via OM: Order cancelled - Patient discharged Performed By: #### L 100.0100, L500.2500 ####[facility] [address] [place], [address] eGFR Normal >60 [facility] Comment on above: Result Comment: Canc elled via OM: Order cancelled - Patient discharged Performed By: #### L 100.0100, L500.2500 ####[facility] [address] [place], [address] GAP Normal 5-15 [facility] Comment on above: Result Comment: Canc elled via OM: Order cancelled - Patient discharged Performed By: #### L 100.0100, L500.2500 ####[facility] [address] [place], [address] GLU Normal 70-99 [facility] Comment on above: Result Comment: Canc elled via OM: Order cancelled - Patient discharged Performed By: #### L 100.0100, L500.2500 ####[facility] [address] [place], [address] Potassium Normal 3.3-5.1 [facility] Comment on above: Result Comment: Canc elled via OM: Order cancelled - Patient discharged Performed By: #### L 100.0100, L500.2500 ####[facility] [address] [place], [address] Basic Metabolic Profile (BMP) Normal 133-145 [facility] Comment on above: Result Comment: Canc elled via OM: Order cancelled - Patient discharged Performed By: #### L 100.0100, L500.2500 ####[facility] [address] [place], [address] CBC W/Diff, Automatedon 06-1 Absolute Neut Normal 2.0-7.7 [facility] Comment on above: Result Comment: Canc elled via OM: Order cancelled - Patient discharged Performed By: #### L 100.0100, L500.2500 ####[facility] [address] [place], [address] HCT Normal 40-54 [facility] Comment on above: Result Comment: Canc elled via OM: Order cancelled - Patient discharged Performed By: #### L 100.0100, L500.2500 ####[facility] [address] [place], [address] HGB Normal 13.0-16.5 [facility] Comment on above: Result Comment: Canc elled via OM: Order cancelled - Patient discharged Performed By: #### L 100.0100, L500.2500 ####[facility] [address] [place], [address] MCH Normal 27.0-32.0 [facility] Comment on above: Result Comment: Canc elled via OM: Order cancelled - Patient discharged Performed By: #### L 100.0100, L500.2500 ####[facility] [address] [place], [address] MCHC Normal 32-36 [facility] Comment on above: Result Comment: Canc elled via OM: Order cancelled - Patient discharged Performed By: #### L 100.0100, L500.2500 ####[facility] [address] [place], [address] MCV Normal 80-94 [facility] Comment on above: Result Comment: Canc elled via OM: Order cancelled - Patient discharged Performed By: #### L 100.0100, L500.2500 ####[facility] [address] [place], [address] NEUT% Normal 47-70 [facility] Comment on above: Result Comment: Canc elled via OM: Order cancelled - Patient discharged Performed By: #### L 100.0100, L500.2500 ####[facility] [address] [place], [address] PLT Normal 150-450 [facility] Comment on above: Result Comment: Canc elled via OM: Order cancelled - Patient discharged Performed By: #### L 100.0100, L500.2500 ####[facility] [address], [address] RBC Normal 4.6-6.2 [facility] Comment on above: Result Comment: Canc elled via OM: Order cancelled - Patient discharged Performed By: #### L 100.0100, L500.2500 ####[facility] [address], [address] RDW CV Normal 11.6-14.6 [facility] Comment on above: Result Comment: Canc elled via OM: Order cancelled - Patient discharged Performed By: #### L 100.0100, L500.2500 ####[facility] [address] [place], [address] RDW SD Normal 35.1-43.9 [facility] Comment on above: Result Comment: Canc elled via OM: Order cancelled - Patient discharged Performed By: #### L 100.0100, L500.2500 ####[facility] [address] [place], [address] WBC Normal 4.4-11.0 [facility] Comment on above: Result Comment: Canc elled via OM: Order cancelled - Patient discharged Performed By: #### L 100.0100, L500.2500 ####[facility] [address] [place], [address] Basic Metabolic Profile (BMP )on 12-09-2024 BUN Normal 4-19 [facility] Comment on above: Result Comment: Canc elled via OM: Order cancelled - Patient discharged Performed By: #### L 100.0100, L500.2500 ####[facility] [address] [place], [address] BUN/CRE Normal 10-20 [facility] Comment on above: Result Comment: Canc elled via OM: Order cancelled - Patient discharged Performed By: #### L 100.0100, L500.2500 ####[facility] [address] [place], [address] Calcium Normal 7.6-11.0 [facility] Comment on above: Result Comment: Canc elled via OM: Order cancelled - Patient discharged Performed By: #### L 100.0100, L500.2500 ####[facility] [address] [place], [address] CL Normal 98-108 [facility] Comment on above: Result Comment: Canc elled via OM: Order cancelled - Patient discharged Performed By: #### L 100.0100, L500.2500 ####[facility] [address] [place], [address] CO2 Normal 21.0-32.0 [facility] Comment on above: Result Comment: Canc elled via OM: Order cancelled - Patient discharged Performed By: #### L 100.0100, L500.2500 ####[facility] [address] [place], [address] CREAT,SERUM Normal 0.70-1.20 [facility] Comment on above: Result Comment: Canc elled via OM: Order cancelled - Patient discharged Performed By: #### L 100.0100, L500.2500 ####[facility] [address] [place], [address] eGFR Normal >60 [facility] Comment on above: Result Comment: Canc elled via OM: Order cancelled - Patient discharged Performed By: #### L 100.0100, L500.2500 ####[facility] [address] [place], [address] GAP Normal 5-15 [facility] Comment on above: Result Comment: Canc elled via OM: Order cancelled - Patient discharged Performed By: #### L 100.0100, L500.2500 ####[facility] [address] [place], [address] GLU Normal 70-99 [facility] Comment on above: Result Comment: Canc elled via OM: Order cancelled - Patient discharged Performed By: #### L 100.0100, L500.2500 ####[facility] [address], [address] Potassium Normal 3.3-5.1 [facility] Comment on above: Result Comment: Canc elled via OM: Order cancelled - Patient discharged Performed By: #### L 100.0100, L500.2500 ####[facility] [address] [place], [address] Basic Metabolic Profile (BMP) Normal 133-145 [facility] Comment on above: Result Comment: Canc elled via OM: Order cancelled - Patient discharged Performed By: #### L 100.0100, L500.2500 ####[facility] [address] [place], [address] CBC W/Diff, Automatedon 06-1 Absolute Neut Normal 2.0-7.7 [facility] Comment on above: Result Comment: Canc elled via OM: Order cancelled - Patient discharged Performed By: #### L 100.0100, L500.2500 ####[facility] [address] [place], [address] HCT Normal 40-54 [facility] Comment on above: Result Comment: Canc elled via OM: Order cancelled - Patient discharged Performed By: #### L 100.0100, L500.2500 ####[facility] [address] [place], [address] HGB Normal 13.0-16.5 [facility] Comment on above: Result Comment: Canc elled via OM: Order cancelled - Patient discharged Performed By: #### L 100.0100, L500.2500 ####[facility] [address] [place], [address] MCH Normal 27.0-32.0 [facility] Comment on above: Result Comment: Canc elled via OM: Order cancelled - Patient discharged Performed By: #### L 100.0100, L500.2500 ####[facility] [address], [address] MCHC Normal 32-36 [facility] Comment on above: Result Comment: Canc elled via OM: Order cancelled - Patient discharged Performed By: #### L 100.0100, L500.2500 ####[facility] [address] [place], [address] MCV Normal 80-94 [facility] Comment on above: Result Comment: Canc elled via OM: Order cancelled - Patient discharged Performed By: #### L 100.0100, L500.2500 ####[facility] [address] [place], [address] NEUT% Normal 47-70 [facility] Comment on above: Result Comment: Canc elled via OM: Order cancelled - Patient discharged Performed By: #### L 100.0100, L500.2500 ####[facility] [address] [place], [address] PLT Normal 150-450 [facility] Comment on above: Result Comment: Canc elled via OM: Order cancelled - Patient discharged Performed By: #### L 100.0100, L500.2500 ####[facility] [address] [place], [address] RBC Normal 4.6-6.2 [facility] Comment on above: Result Comment: Canc elled via OM: Order cancelled - Patient discharged Performed By: #### L 100.0100, L500.2500 ####[facility] [address] [place], [address] RDW CV Normal 11.6-14.6 [facility] Comment on above: Result Comment: Canc elled via OM: Order cancelled - Patient discharged Performed By: #### L 100.0100, L500.2500 ####[facility] [address] [place], [address] RDW SD Normal 35.1-43.9 [facility] Comment on above: Result Comment: Canc elled via OM: Order cancelled - Patient discharged Performed By: #### L 100.0100, L500.2500 ####[facility] [address] [place], [address] WBC Normal 4.4-11.0 [facility] Comment on above: Result Comment: Canc elled via OM: Order cancelled - Patient discharged Performed By: #### L 100.0100, L500.2500 ####[facility] [address] [place], [address] Culture, Blood (WB)on 2024 CUB Blood cultures x2, from two different sites No growth in 5 days. Normal [facility] Comment on above: Performed By: #### L 300.3900, L300.4310, L500.4050, L503.6005, L100.0100, M200.1000 ####[facility] [address] [place], [address] Basic Metabolic Profile (BMP )on 12-08-2024 BUN Normal 4-19 [facility] Comment on above: Result Comment: Canc elled via OM: Order cancelled - Patient discharged Performed By: #### L 500.2500, L100.0100 ####[facility] [address] [place], [address] BUN/CRE Normal 10-20 [facility] Comment on above: Result Comment: Canc elled via OM: Order cancelled - Patient discharged Performed By: #### L 500.2500, L100.0100 ####[facility] [address], [address] Calcium Normal 7.6-11.0 [facility] Comment on above: Result Comment: Canc elled via OM: Order cancelled - Patient discharged Performed By: #### L 500.2500, L100.0100 ####[facility] [address], [address] CL Normal 98-108 [facility] Comment on above: Result Comment: Canc elled via OM: Order cancelled - Patient discharged Performed By: #### L 500.2500, L100.0100 ####[facility] [address] [place], [address] CO2 Normal 21.0-32.0 [facility] Comment on above: Result Comment: Canc elled via OM: Order cancelled - Patient discharged Performed By: #### L 500.2500, L100.0100 ####[facility] [address] [place], [address] CREAT,SERUM Normal 0.70-1.20 [facility] Comment on above: Result Comment: Canc elled via OM: Order cancelled - Patient discharged Performed By: #### L 500.2500, L100.0100 ####[facility] [address] [place], [address] eGFR Normal >60 [facility] Comment on above: Result Comment: Canc elled via OM: Order cancelled - Patient discharged Performed By: #### L 500.2500, L100.0100 ####[facility] [address], [address] GAP Normal 5-15 [facility] Comment on above: Result Comment: Canc elled via OM: Order cancelled - Patient discharged Performed By: #### L 500.2500, L100.0100 ####[facility] [address], [address] GLU Normal 70-99 [facility] Comment on above: Result Comment: Canc elled via OM: Order cancelled - Patient discharged Performed By: #### L 500.2500, L100.0100 ####[facility] [address] [place], [address] Potassium Normal 3.3-5.1 [facility] Comment on above: Result Comment: Canc elled via OM: Order cancelled - Patient discharged Performed By: #### L 500.2500, L100.0100 ####[facility] [address] [place], [address] Basic Metabolic Profile (BMP) Normal 133-145 [facility] Comment on above: Result Comment: Canc elled via OM: Order cancelled - Patient discharged Performed By: #### L 500.2500, L100.0100 ####[facility] [address] [place], [address] CBC W/Diff, Automatedon - Absolute Neut Normal 2.0-7.7 [facility] Comment on above: Result Comment: Canc elled via OM: Order cancelled - Patient discharged Performed By: #### L 500.2500, L100.0100 ####[facility] [address] [place], [address] HCT Normal 40-54 [facility] Comment on above: Result Comment: Canc elled via OM: Order cancelled - Patient discharged Performed By: #### L 500.2500, L100.0100 ####[facility] [address] [place], [address] HGB Normal 13.0-16.5 [facility] Comment on above: Result Comment: Canc elled via OM: Order cancelled - Patient discharged Performed By: #### L 500.2500, L100.0100 ####[facility] [address] [place], [address] MCH Normal 27.0-32.0 [facility] Comment on above: Result Comment: Canc elled via OM: Order cancelled - Patient discharged Performed By: #### L 500.2500, L100.0100 ####[facility] [address] [place], [address] MCHC Normal 32-36 [facility] Comment on above: Result Comment: Canc elled via OM: Order cancelled - Patient discharged Performed By: #### L 500.2500, L100.0100 ####[facility] [address] [place], [address] MCV Normal 80-94 [facility] Comment on above: Result Comment: Canc elled via OM: Order cancelled - Patient discharged Performed By: #### L 500.2500, L100.0100 ####[facility] [address] [place], [address] NEUT% Normal 47-70 [facility] Comment on above: Result Comment: Canc elled via OM: Order cancelled - Patient discharged Performed By: #### L 500.2500, L100.0100 ####[facility] [address] [place], [address] PLT Normal 150-450 [facility] Comment on above: Result Comment: Canc elled via OM: Order cancelled - Patient discharged Performed By: #### L 500.2500, L100.0100 ####[facility] [address] [place], [address] RBC Normal 4.6-6.2 [facility] Comment on above: Result Comment: Canc elled via OM: Order cancelled - Patient discharged Performed By: #### L 500.2500, L100.0100 ####[facility] [address] [place], [address] RDW CV Normal 11.6-14.6 [facility] Comment on above: Result Comment: Canc elled via OM: Order cancelled - Patient discharged Performed By: #### L 500.2500, L100.0100 ####[facility] [address] [place], [address] RDW SD Normal 35.1-43.9 [facility] Comment on above: Result Comment: Canc elled via OM: Order cancelled - Patient discharged Performed By: #### L 500.2500, L100.0100 ####[facility] [address] [place], [address] WBC Normal 4.4-11.0 [facility] Comment on above: Result Comment: Canc elled via OM: Order cancelled - Patient discharged Performed By: #### L 500.2500, L100.0100 ####[facility] [address] [place], [address] ENTERIC PATHOGEN PANEL STOOL on 12-08-2024 EP PANEL Normal [facility] Comment on above: Performed By: #### M 100.637 ####[facility] [address] [place], [address] Basic Metabolic Profile (BMP )on 12-07-2024 BUN Normal 4-19 [facility] Comment on above: Result Comment: Canc elled via OM: Order cancelled - Patient discharged Performed By: #### L 100.0100, L500.2500 ####[facility] [address] [place], [address] BUN/CRE Normal 10-20 [facility] Comment on above: Result Comment: Canc elled via OM: Order cancelled - Patient discharged Performed By: #### L 100.0100, L500.2500 ####[facility] [address] [place], [address] Calcium Normal 7.6-11.0 [facility] Comment on above: Result Comment: Canc elled via OM: Order cancelled - Patient discharged Performed By: #### L 100.0100, L500.2500 ####[facility] [address] [place], [address] CL Normal 98-108 [facility] Comment on above: Result Comment: Canc elled via OM: Order cancelled - Patient discharged Performed By: #### L 100.0100, L500.2500 ####[facility] [address], [address] CO2 Normal 21.0-32.0 [facility] Comment on above: Result Comment: Canc elled via OM: Order cancelled - Patient discharged Performed By: #### L 100.0100, L500.2500 ####[facility] [address] [place], [address] CREAT,SERUM Normal 0.70-1.20 [facility] Comment on above: Result Comment: Canc elled via OM: Order cancelled - Patient discharged Performed By: #### L 100.0100, L500.2500 ####[facility] [address] [place], [address] eGFR Normal >60 [facility] Comment on above: Result Comment: Canc elled via OM: Order cancelled - Patient discharged Performed By: #### L 100.0100, L500.2500 ####[facility] [address] [place], [address] GAP Normal 5-15 [facility] Comment on above: Result Comment: Canc elled via OM: Order cancelled - Patient discharged Performed By: #### L 100.0100, L500.2500 ####[facility] [address] [place], [address] GLU Normal 70-99 [facility] Comment on above: Result Comment: Canc elled via OM: Order cancelled - Patient discharged Performed By: #### L 100.0100, L500.2500 ####[facility] [address] [place], [address] Potassium Normal 3.3-5.1 [facility] Comment on above: Result Comment: Canc elled via OM: Order cancelled - Patient discharged Performed By: #### L 100.0100, L500.2500 ####[facility] [address] [place], [address] Basic Metabolic Profile (BMP) Normal 133-145 [facility] Comment on above: Result Comment: Canc elled via OM: Order cancelled - Patient discharged Performed By: #### L 100.0100, L500.2500 ####[facility] [address] [place], [address] CBC W/Diff, Automatedon 06- Absolute Neut Normal 2.0-7.7 [facility] Comment on above: Result Comment: Canc elled via OM: Order cancelled - Patient discharged Performed By: #### L 100.0100, L500.2500 ####[facility] [address] [place], [address] HCT Normal 40-54 [facility] Comment on above: Result Comment: Canc elled via OM: Order cancelled - Patient discharged Performed By: #### L 100.0100, L500.2500 ####[facility] [address] [place], [address] HGB Normal 13.0-16.5 [facility] Comment on above: Result Comment: Canc elled via OM: Order cancelled - Patient discharged Performed By: #### L 100.0100, L500.2500 ####[facility] [address] [place], [address] MCH Normal 27.0-32.0 [facility] Comment on above: Result Comment: Canc elled via OM: Order cancelled - Patient discharged Performed By: #### L 100.0100, L500.2500 ####[facility] [address], [address] MCHC Normal 32-36 [facility] Comment on above: Result Comment: Canc elled via OM: Order cancelled - Patient discharged Performed By: #### L 100.0100, L500.2500 ####[facility] [address], [address] MCV Normal 80-94 [facility] Comment on above: Result Comment: Canc elled via OM: Order cancelled - Patient discharged Performed By: #### L 100.0100, L500.2500 ####[facility] [address] [place], [address] NEUT% Normal 47-70 [facility] Comment on above: Result Comment: Canc elled via OM: Order cancelled - Patient discharged Performed By: #### L 100.0100, L500.2500 ####[facility] [address] [place], [address] PLT Normal 150-450 [facility] Comment on above: Result Comment: Canc elled via OM: Order cancelled - Patient discharged Performed By: #### L 100.0100, L500.2500 ####[facility] [address] [place], [address] RBC Normal 4.6-6.2 [facility] Comment on above: Result Comment: Canc elled via OM: Order cancelled - Patient discharged Performed By: #### L 100.0100, L500.2500 ####[facility] [address], [address] RDW CV Normal 11.6-14.6 [facility] Comment on above: Result Comment: Canc elled via OM: Order cancelled - Patient discharged Performed By: #### L 100.0100, L500.2500 ####[facility] [address] [place], [address] RDW SD Normal 35.1-43.9 [facility] Comment on above: Result Comment: Canc elled via OM: Order cancelled - Patient discharged Performed By: #### L 100.0100, L500.2500 ####[facility] [address] [place], [address] WBC Normal 4.4-11.0 [facility] Comment on above: Result Comment: Canc elled via OM: Order cancelled - Patient discharged Performed By: #### L 100.0100, L500.2500 ####[facility] [address] [place], [address] Absolute lymphocyte countOrd ered By: Michelle Angeles on 12-06-2024 Lymphocytes Auto (Unsp spec) [#/Vol] 2.54 10*3/uL 0.83-4.51 [facility] Absolute neutrophil countOrd ered By: Michelle Angeles on 12-06-2024 Neutrophils (Bld) [#/Vol] 7.2 10*3/uL 2.0-7.7 [facility] Anion gap in Serum or Plasma Ordered By: Michelle Angeles on 12-06-2024 Anion gap [Moles/Vol] 9 mmol/L 5-15 [facility] Automated lymphocyte count a s percentage of total leukocytesOrdered By: Michelle Angeles on 12-06-2024 Lymphocytes/100 WBC Auto (Unsp spec) 23.6 % 19-41 [facility] BUN/creatinine ratioOrdered By: Michelle Angeles on 12-06-2024 Urea nitrogen/Creatinine [Mass ratio] 14.5 mg/mg - [facility] Basic Metabolic Profile (BMP )on 12-06-2024 BUN/CRE 14.5 RATIO Normal - [facility] Comment on above: Performed By: #### L 500.2500, L100.0100 ####[facility] [address] [place], [address] Calcium [Mass/Vol] 9.0 mg/dL Normal 7.6-11.0 [facility] Comment on above: Performed By: #### L 500.2500, L100.0100 ####[facility] [address] [place], [address] Chloride [Moles/Vol] 106 mmol/L Normal 98-108 [facility] Comment on above: Performed By: #### L 500.2500, L100.0100 ####[facility] [address] [place], [address] CO2 [Moles/Vol] 27.0 mmol/L Normal 21.0-32.0 [facility] Comment on above: Performed By: #### L 500.2500, L100.0100 ####[facility] [address] [place], [address] Creatinine [Mass/Vol] 1.07 mg/dL Normal 0.70-1.20 [facility] Comment on above: Performed By: #### L 500.2500, L100.0100 ####[facility] [address] [place], [address] ECRCL 91.85 ml/min Normal 50-250 [facility] Comment on above: Performed By: #### L 500.2500, L100.0100 ####[facility] [address] [place], [address] GAP 9 Normal 5-15 [facility] Comment on above: Performed By: #### L 500.2500, L100.0100 ####[facility] [address] [place], [address] GFR/1.73 sq M.predicted among non-blacks MDRD (S/P/Bld) [Vol rate/Area] 82 mL/min/{1.73_m2} Normal >60 [facility] Comment on above: Result Comment: mL/m in/1.73m2 CKD-EPI Creatinine Equation (2020) Performed By: #### L 500.2500, L100.0100 ####[facility] [address], [address] Glucose [Mass/Vol] 90 mg/dL Normal 70-99 [facility] Comment on above: Performed By: #### L 500.2500, L100.0100 ####[facility] [address], [address] Potassium [Moles/Vol] 4.3 mmol/L Normal 3.3-5.1 [facility] Comment on above: Performed By: #### L 500.2500, L100.0100 ####[facility] [address] [place], [address] Sodium [Moles/Vol] 142 mmol/L Normal 133-145 [facility] Comment on above: Performed By: #### L 500.2500, L100.0100 ####[facility] [address] [place], [address] Urea nitrogen [Mass/Vol] 16 mg/dL Normal 4-19 [facility] Comment on above: Performed By: #### L 500.2500, L100.0100 ####[facility] [address] [place], [address] Basophil percentageOrdered B y: Michelle Angeles on 12-06-2024 Basophils/100 WBC (Bld) 0.3 % 0-1 [facility] Bedside Glucoseon 12-06-2024 FINGERSTICK GLU 90 mg/dL Normal 74-106 [facility] Comment on above: Result Comment: JEFFREY GEMENT OF PATIENT CARE PER NURSING PROTOCOL Performed By: #### L 501.080 ####[facility] [address] [place], [address] FINGERSTICK GLU 84 mg/dL Normal 74-106 [facility] Comment on above: Result Comment: JEFFREY GEMENT OF PATIENT CARE PER NURSING PROTOCOL Performed By: #### L 501.080 ####[facility] [address] [place], [address] CBC W/Diff, Automatedon 06- Absolute Lymph 2.54 X10 3/uL Normal 0.83-4.51 [facility] Comment on above: Performed By: #### L 500.2500, L100.0100 ####[facility] [address], [address] Absolute Neut 7.2 X10 3/uL Normal 2.0-7.7 [facility] Comment on above: Performed By: #### L 500.2500, L100.0100 ####[facility] [address] [place], [address] Basophils/100 WBC (Bld) 0.3 % Normal 0-1 [facility] Comment on above: Performed By: #### L 500.2500, L100.0100 ####[facility] [address] [place], [address] Eosinophils/100 WBC (Bld) 1.2 % Normal 0-5 [facility] Comment on above: Performed By: #### L 500.2500, L100.0100 ####[facility] [address] [place], [address] Erythrocyte distribution width (RBC) [Ratio] 14.5 % Normal 11.6-14.6 [facility] Comment on above: Performed By: #### L 500.2500, L100.0100 ####[facility] [address] [place], [address] Hematocrit (Bld) [Volume fraction] 37.8 % Low 40-54 [facility] Comment on above: Performed By: #### L 500.2500, L100.0100 ####[facility] [address] [place], [address] Hemoglobin (Bld) [Mass/Vol] 11.7 g/dL Low 13.0-16.5 [facility] Comment on above: Performed By: #### L 500.2500, L100.0100 ####[facility] [address] [place], [address] IG% 0.300 Normal 0.0-0.9 [facility] Comment on above: Result Comment: IG% - Immature Granulocytes (promyelocytes, myelocytes andmetamyelocytes) > 1% indicates that a LEFT SHIFT is Present. Performed By: #### L 500.2500, L100.0100 ####[facility] [address] [place], [address] Lymphocytes/100 WBC (Bld) 23.6 % Normal 19-41 [facility] Comment on above: Performed By: #### L 500.2500, L100.0100 ####[facility] [address] [place], [address] MCH (RBC) [Entitic mass] 26.5 pg Low 27.0-32.0 [facility] Comment on above: Performed By: #### L 500.2500, L100.0100 ####[facility] [address] [place], [address] MCHC (RBC) [Mass/Vol] 31.0 g/dL Low 32-36 [facility] Comment on above: Performed By: #### L 500.2500, L100.0100 ####[facility] [address] [place], [address] MCV (RBC) [Entitic vol] 85.7 fL Normal 80-94 [facility] Comment on above: Performed By: #### L 500.2500, L100.0100 ####[facility] [address] [place], [address] Monocytes/100 WBC (Bld) 8.0 % Normal 0-10 [facility] Comment on above: Performed By: #### L 500.2500, L100.0100 ####[facility] [address] [place], [address] Neutrophils/100 WBC (Bld) 66.6 % Normal 47-70 [facility] Comment on above: Performed By: #### L 500.2500, L100.0100 ####[facility] [address] [place], [address] Nucleated RBC (Bld) [#/Vol] 0 10*3/uL Normal 0-5 [facility] Comment on above: Performed By: #### L 500.2500, L100.0100 ####[facility] [address] [place], [address] Platelet mean volume (Bld) [Entitic vol] 10.0 fL Normal 6.2-12.0 [facility] Comment on above: Performed By: #### L 500.2500, L100.0100 ####[facility] [address] [place], [address] Platelets (Bld) [#/Vol] 222 10*3/uL Normal 150-450 [facility] Comment on above: Performed By: #### L 500.2500, L100.0100 ####[facility] [address] [place], [address] RBC (Bld) [#/Vol] 4.41 10*6/uL Low 4.6-6.2 [facility] Comment on above: Performed By: #### L 500.2500, L100.0100 ####[facility] [address] [place], [address] RDW SD 45.2 fl High 35.1-43.9 [facility] Comment on above: Performed By: #### L 500.2500, L100.0100 ####[facility] [address] [place], [address] WBC (Bld) [#/Vol] 10.8 10*3/uL Normal 4.4-11.0 [facility] Comment on above: Performed By: #### L 500.2500, L100.0100 ####[facility] [address] [place], [address] Carbon dioxide, total [Moles /volume] in Central venous bloodOrdered By: Michelle Angeles on 12-06-2024 CO2 [Moles/Vol] 27.0 mmol/L 21.0-32.0 [facility] Chloride assayOrdered By: Na na Bridgette on 12-06-2024 Chloride [Moles/Vol] 106 mmol/L 98-108 [facility] Eosinophil percentageOrdered By: Michelle Angeles on 12-06-2024 Eosinophils/100 WBC (Bld) 1.2 % 0-5 [facility] Erythrocyte distribution wid th ratioOrdered By: Michelle Angeles on 12-06-2024 Erythrocyte distribution width (RBC) [Ratio] 14.5 % 11.6-14.6 [facility] Erythrocyte distribution wid th standard deviationOrdered By: Michelletanisha Angeles on 12-06-2024 Erythrocyte distribution width (RBC) [Ratio] 45.2 fl High 35.1-43.9 [facility] Glomerular filtration rate ( GFR) estimation/1.73 sq m using serum, plasma, or whole bOrdered By: Michelle Angeles on 12-06-2024 GFR/1.73 sq M.predicted among non-blacks MDRD (S/P/Bld) [Vol rate/Area] 82 mL/min/{1.73_m2} >60 [facility] Comment on above: mL/min/1.73m2 CKD-EP I Creatinine Equation (2020) Glucose measurement at bedsi deOrdered By: Michelle Angeles on 12-06-2024 Glucose [Mass/Vol] 90 mg/dL 74-106 [facility] Comment on above: MANAGEMENT OF PATIEN T CARE PER NURSING PROTOCOL Hematocrit Auto (Bld) [Volum e fraction]Ordered By: Michelle Angeles on 12-06-2024 Hematocrit (Bld) [Volume fraction] 37.8 % Low 40-54 [facility] Hemoglobin measurementOrdere d By: Michelle Angeles on 12-06-2024 Hemoglobin (Bld) [Mass/Vol] 11.7 g/dL Low 13.0-16.5 [facility] Immature granulocytes/100 WB C Auto (Bld)Ordered By: Michelle Angeles on 12-06-2024 Immature granulocytes/100 WBC (Bld) 0.300 % 0.0-0.9 [facility] Comment on above: IG% - Immature Granu locytes (promyelocytes, myelocytes and metamyelocytes) > 1% indicates that a LEFT SHIFT is Present. MCV (mean corpuscular volume ) determinationOrdered By: Michelle Angeles on 12-06-2024 MCV (RBC) [Entitic vol] 85.7 fL 80-94 [facility] Mean corpuscular hemoglobin (MCH) determinationOrdered By: Michelle Angeles on 12-06-2024 MCH (RBC) [Entitic mass] 26.5 pg Low 27.0-32.0 [facility] Mean corpuscular hemoglobin concentration (MCHC) determinationOrdered By: Michelle Angeles on 12-06-2024 MCHC (RBC) [Mass/Vol] 31.0 g/dL Low 32-36 [facility] Mean platelet volume determi nationOrdered By: Michelle Angeles on 12-06-2024 Platelet mean volume (Bld) [Entitic vol] 10.0 fL 6.2-12.0 [facility] Monocyte percentageOrdered B y: Michelle Angeles on 12-06-2024 Monocytes/100 WBC (Bld) 8.0 % 0-10 [facility] Neutrophil percentageOrdered By: Michelle Angeles on 12-06-2024 Neutrophils/100 WBC (Bld) 66.6 % 47-70 [facility] Nucleated red blood cell per centageOrdered By: Michelle Angeles on 12-06-2024 Nucleated RBC/100 WBC (Bld) [Ratio] 0 % 0-5 [facility] Platelet countOrdered By: Griselda Angeles on 12-06-2024 Platelets (Bld) [#/Vol] 222 10*3/uL 150-450 [facility] Potassium measurement (mass/ volume)Ordered By: Michelle Angeles on 12-06-2024 Potassium (Unsp spec) [Mass/Vol] 4.3 mmol/L 3.3-5.1 [facility] RBC Auto (Bld) [#/Vol]Ordere d By: Michelle Angeles on 12-06-2024 RBC (Bld) [#/Vol] 4.41 10*6/uL Low 4.6-6.2 [facility] Serum creatinine measurement (mass/volume)Ordered By: Michelle Angeles on 12-06-2024 Creatinine [Mass/Vol] 1.07 mg/dL 0.70-1.20 [facility] Serum glucose measurement (m ass/volume)Ordered By: Michelle Angeles on 12-06-2024 Glucose [Mass/Vol] 90 mg/dL 70-99 [facility] Serum or plasma calcium michael urement (mass/volume)Ordered By: Michelle Angeles on 12-06-2024 Calcium [Mass/Vol] 9.0 mg/dL 7.6-11.0 [facility] Serum or plasma urea nitroge n measurement (mass/volume)Ordered By: Michelle Angeles on 12-06-2024 Urea nitrogen [Mass/Vol] 16 mg/dL 4-19 [facility] Sodium levelOrdered By: Michelle Angeles on 12-06-2024 Sodium [Moles/Vol] 142 mmol/L 133-145 [facility] Urine Cultureon 12-06-2024 URC Normal [facility] Comment on above: Performed By: #### L 400.0001, M100.2200 ####[facility] [address] [facility] [place], [place], [address] White blood cell (WBC) count Ordered By: Michelle Angeles on 12-06-2024 WBC (Bld) [#/Vol] 10.8 10*3/uL 4.4-11.0 [facility] Basic Metabolic Profile (BMP )on 12-05-2024 BUN/CRE 18.3 RATIO Normal 10-20 [facility] Comment on above: Performed By: #### L 100.0100, L500.2500 ####[facility] [address] [facility] [place], [address] Calcium [Mass/Vol] 8.6 mg/dL Normal 7.6-11.0 [facility] Comment on above: Performed By: #### L 100.0100, L500.2500 ####[facility] [address] [place], [address] Chloride [Moles/Vol] 108 mmol/L Normal 98-108 [facility] Comment on above: Performed By: #### L 100.0100, L500.2500 ####[facility] [address] [place], [address] CO2 [Moles/Vol] 24.2 mmol/L Normal 21.0-32.0 [facility] Comment on above: Performed By: #### L 100.0100, L500.2500 ####[facility] [address] [place], [address] Creatinine [Mass/Vol] 0.94 mg/dL Normal 0.70-1.20 [facility] Comment on above: Performed By: #### L 100.0100, L500.2500 ####[facility] [address] [place], [address] ECRCL 104.55 ml/min Normal 50-250 [facility] Comment on above: Performed By: #### L 100.0100, L500.2500 ####[facility] [address] [place], [address] GAP 9 Normal 5-15 [facility] Comment on above: Performed By: #### L 100.0100, L500.2500 ####[facility] [address] [place], [address] GFR/1.73 sq M.predicted among non-blacks MDRD (S/P/Bld) [Vol rate/Area] 96 mL/min/{1.73_m2} Normal >60 [facility] Comment on above: Result Comment: mL/m in/1.73m2 CKD-EPI Creatinine Equation (2020) Performed By: #### L 100.0100, L500.2500 ####[facility] [address], [address] Glucose [Mass/Vol] 147 mg/dL High 70-99 [facility] Comment on above: Performed By: #### L 100.0100, L500.2500 ####[facility] [address] [place], [address] Potassium [Moles/Vol] 4.9 mmol/L Normal 3.3-5.1 [facility] Comment on above: Result Comment: Hemo lysis present, Results??could be affected.?? Performed By: #### L 100.0100, L500.2500 ####[facility] [address] [place], [address] Sodium [Moles/Vol] 141 mmol/L Normal 133-145 [facility] Comment on above: Performed By: #### L 100.0100, L500.2500 ####[facility] [address] [place], [address] Urea nitrogen [Mass/Vol] 17 mg/dL Normal 4-19 [facility] Comment on above: Performed By: #### L 100.0100, L500.2500 ####[facility] [address] [place], [address] Bedside Glucoseon 12-05-2024 FINGERSTICK GLU 116 mg/dL High 74-106 [facility] Comment on above: Result Comment: JEFFREY ALYSSAENT OF PATIENT CARE PER NURSING PROTOCOL Performed By: #### L 501.080 ####[facility] [address] [place], [address] CBC W/Diff, Automatedon 11-26 Absolute Lymph 1.35 X10 3/uL Normal 0.83-4.51 [facility] Comment on above: Performed By: #### L 100.0100, L500.2500 ####[facility] [address] [place], [address] Absolute Neut 9.1 X10 3/uL High 2.0-7.7 [facility] Comment on above: Performed By: #### L 100.0100, L500.2500 ####[facility] [address] [place], [address] Basophils/100 WBC (Bld) 0.2 % Normal 0-1 [facility] Comment on above: Performed By: #### L 100.0100, L500.2500 ####[facility] [address] [place], [address] Eosinophils/100 WBC (Bld) 0.1 % Normal 0-5 [facility] Comment on above: Performed By: #### L 100.0100, L500.2500 ####[facility] [address] [place], [address] Erythrocyte distribution width (RBC) [Ratio] 14.7 % High 11.6-14.6 [facility] Comment on above: Performed By: #### L 100.0100, L500.2500 ####[facility] [address] [place], [address] Hematocrit (Bld) [Volume fraction] 37.5 % Low 40-54 [facility] Comment on above: Performed By: #### L 100.0100, L500.2500 ####[facility] [address] [place], [address] Hemoglobin (Bld) [Mass/Vol] 11.5 g/dL Low 13.0-16.5 [facility] Comment on above: Performed By: #### L 100.0100, L500.2500 ####[facility] [address] [place], [address] IG% 0.300 Normal 0.0-0.9 [facility] Comment on above: Result Comment: IG% - Immature Granulocytes (promyelocytes, myelocytes andmetamyelocytes) > 1% indicates that a LEFT SHIFT is Present. Performed By: #### L 100.0100, L500.2500 ####[facility] [address] [place], [address] Lymphocytes/100 WBC (Bld) 11.6 % Low 19-41 [facility] Comment on above: Performed By: #### L 100.0100, L500.2500 ####[facility] [address] [place], [address] MCH (RBC) [Entitic mass] 26.4 pg Low 27.0-32.0 [facility] Comment on above: Performed By: #### L 100.0100, L500.2500 ####[facility] [address] [place], [address] MCHC (RBC) [Mass/Vol] 30.7 g/dL Low 32-36 [facility] Comment on above: Performed By: #### L 100.0100, L500.2500 ####[facility] [address] [place], [address] MCV (RBC) [Entitic vol] 86.2 fL Normal 80-94 [facility] Comment on above: Performed By: #### L 100.0100, L500.2500 ####[facility] [address] [place], [address] Monocytes/100 WBC (Bld) 9.4 % Normal 0-10 [facility] Comment on above: Performed By: #### L 100.0100, L500.2500 ####[facility] [address] [place], [address] Neutrophils/100 WBC (Bld) 78.4 % High 47-70 [facility] Comment on above: Performed By: #### L 100.0100, L500.2500 ####[facility] [address] [place], [address] Nucleated RBC (Bld) [#/Vol] 0 10*3/uL Normal 0-5 [facility] Comment on above: Performed By: #### L 100.0100, L500.2500 ####[facility] [address] [place], [address] Platelet mean volume (Bld) [Entitic vol] 10.4 fL Normal 6.2-12.0 [facility] Comment on above: Performed By: #### L 100.0100, L500.2500 ####[facility] [address] [place], [address] Platelets (Bld) [#/Vol] 217 10*3/uL Normal 150-450 [facility] Comment on above: Performed By: #### L 100.0100, L500.2500 ####[facility] [address] [place], [address] RBC (Bld) [#/Vol] 4.35 10*6/uL Low 4.6-6.2 [facility] Comment on above: Performed By: #### L 100.0100, L500.2500 ####[facility] [address] [place], [address] RDW SD 46.1 fl High 35.1-43.9 [facility] Comment on above: Performed By: #### L 100.0100, L500.2500 ####[facility] [address] [place], [address] WBC (Bld) [#/Vol] 11.7 10*3/uL High 4.4-11.0 [facility] Comment on above: Performed By: #### L 100.0100, L500.2500 ####[facility] [address] [place], [address] Chest 1 View (Portable)on Chest 1 View (Portable) Normal [facility] Consultation - Intensiviston 12-05-2024 Consultation - Sprayer Insecticide Normal [facility] Electrocardiogram reportOrde red By: German Reyna on 12-05-2024 EKG study [facility] [address] [place] [address] 12 Lead EKG 12/04/24 1034 MR#: [id number] Acct: [id number] Name: RIGO GARCIA Rep #:[id number] : 1970 54 From: German ayers MD Attending Dr: Dr. Michelle Angeles MD Status: ADM IN Ordering Dr: Franco Benites ate: 12/04/24 Location: ICU Sex: M [...] ischemia Abnormal ECG Confirmed by German Reyna ([id number]), editor index NGUYEN HOUSER ([id number]) on 12/05/2024 11:11:41 AM Referred By: JESUS Confirmed By: German Reyna 12/05/24 1111 Date _ German Reyna MD CC: Dr. Franco Benites DO; Dr. Michelle Angeles MD; Dr. Mame Bright MD~ Signed [facility] Other 12 Lead EKGon 12-04-2024 12 Lead EKG Normal [facility] Absolute lymphocyte countOrd ered By: Franco Benites on 12-04-2024 Lymphocytes Auto (Unsp spec) [#/Vol] 0.75 10*3/uL Low 0.83-4.51 [facility] Absolute neutrophil countOrd ered By: Franco Benites on 12-04-2024 Neutrophils (Bld) [#/Vol] 10.2 10*3/uL High 2.0-7.7 [facility] Activated partial thrombopla stin time (aPTT) in platelet poor plasma by coagulation aOrdered By: Franco Benites on 12-04-2024 aPTT Coag (PPP) [Time] 23.7 s Low 24.1-36.2 [place] Anion gap in Serum or Plasma Ordered By: Franco Benites on 12-04-2024 Anion gap [Moles/Vol] 17 mmol/L High 5-15 [facility] Automated lymphocyte count a s percentage of total leukocytesOrdered By: Franco Delmis on 12-04-2024 Lymphocytes/100 WBC Auto (Unsp spec) 6.3 % Low 19-41 [facility] BUN/creatinine ratioOrdered By: Franco Delmis on 12-04-2024 Urea nitrogen/Creatinine [Mass ratio] 14.8 mg/mg 10-20 [facility] Basophil percentageOrdered B y: Franoc Benites on 12-04-2024 Basophils/100 WBC (Bld) 0.2 % 0-1 [facility] Bilirubin Test strip Ql (U)O rdered By: Franco Benites on 12-04-2024 Bilirubin Ql (U) Negative Negative [facility] Bilirubin, totalOrdered By: Franco Benites on 12-04-2024 Bilirubin [Mass/Vol] 0.37 mg/dL 0.00-1.30 [facility] Blood Gases by CPSon 025 Base excess Calc (Bld) [Moles/Vol] 8 mmol/L High -2 to +2 [facility] Comment on above: Performed By: #### L 8999.799 ####[facility] [address] [place], [place], [address] Blood Gas Type ART Normal [facility] Comment on above: Performed By: #### L 8999.0800 ####[facility] [address] [place], [address] CO2 [Moles/Vol] 35 mmol/L Normal [facility] Comment on above: Performed By: #### L 0.0800 ####[facility] [address] [place], [address] FI02 8.0 Normal [facility] Comment on above: Performed By: #### L 0.0800 ####[facility] [address] [place], [address] HCO3 (Bld) [Moles/Vol] 32.9 mmol/L High 22-26 [facility] Comment on above: Performed By: #### L 0.0800 ####[facility] [address] [place], [address] Mode Not entered [facility] Comment on above: Performed By: #### L 0.0800 ####[facility] [address] [place], [address] O2 Delivery Dev Not entered [facility] Comment on above: Performed By: #### L 0.0800 ####[facility] [address] [place], [address] pCO2 57.9 mmHg High 35-45 [facility] Comment on above: Performed By: #### L 0.0800 ####[facility] [address] [place], [address] pH (Bld) 7.36 [pH] Normal 7.35-7.45 [facility] Comment on above: Performed By: #### L 9000.0800 ####[facility] [address] [place], [address] PO2 66 mmHG Low 75-100 [facility] Comment on above: Performed By: #### L 0.0800 ####[facility] [address] [place], [address] SITE L Brach Normal [facility] Comment on above: Performed By: #### L 0.0800 ####[facility] [address] [place], [address] SO2 91 Low 95-99 [facility] Comment on above: Performed By: #### L 0.0800 ####[facility] [address] [place], [address] Blood base excess determinat ionOrdered By: Franco Benites on 12-04-2024 Base excess Calc (BldV) [Moles/Vol] 8 mmol/L High -2-2 [facility] Blood bicarbonate measuremen tOrdered By: Franco Benites on 12-04-2024 HCO3 (Bld) [Moles/Vol] 32.9 mmol/L High 22-26 [facility] Blood cultureOrdered By: Ulysses Benites on 12-04-2024 Bacteria identified Cx Nom (Bld) No growth in 5 days. [facility] Bacteria identified Cx Nom (Bld) No growth in 5 days. [facility] CBC W/Diff, Automatedon 06-0 Absolute Lymph 0.75 X10 3/uL Low 0.83-4.51 [facility] Comment on above: Performed By: #### L 300.3900, L300.4310, L500.4050, L503.6005, L100.0100, M200.1000 ####[facility] [address] [place], [address] Absolute Neut 10.2 X10 3/uL High 2.0-7.7 [facility] Comment on above: Performed By: #### L 300.3900, L300.4310, L500.4050, L503.6005, L100.0100, M200.1000 ####[facility] [address] [place], [address] Basophils/100 WBC (Bld) 0.2 % Normal 0-1 [facility] Comment on above: Performed By: #### L 300.3900, L300.4310, L500.4050, L503.6005, L100.0100, M200.1000 ####[facility] [address] [place], [address] Eosinophils/100 WBC (Bld) 0.5 % Normal 0-5 [facility] Comment on above: Performed By: #### L 300.3900, L300.4310, L500.4050, L503.6005, L100.0100, M200.1000 ####[facility] [address] [place], [address] Erythrocyte distribution width (RBC) [Ratio] 14.6 % Normal 11.6-14.6 [facility] Comment on above: Performed By: #### L 300.3900, L300.4310, L500.4050, L503.6005, L100.0100, M200.1000 ####[facility] [address] [place], [address] Hematocrit (Bld) [Volume fraction] 43.2 % Normal 40-54 [facility] Comment on above: Performed By: #### L 300.3900, L300.4310, L500.4050, L503.6005, L100.0100, M200.1000 ####[facility] [address] [place], [address] Hemoglobin (Bld) [Mass/Vol] 13.2 g/dL Normal 13.0-16.5 [facility] Comment on above: Performed By: #### L 300.3900, L300.4310, L500.4050, L503.6005, L100.0100, M200.1000 ####[facility] [address] [place], [address] IG% 0.300 Normal 0.0-0.9 [facility] Comment on above: Result Comment: IG% - Immature Granulocytes (promyelocytes, myelocytes andmetamyelocytes) > 1% indicates that a LEFT SHIFT is Present. Performed By: #### L 300.3900, L300.4310, L500.4050, L503.6005, L100.0100, M200.1000 ####[facility] [address] [place], [address] Lymphocytes/100 WBC (Bld) 6.3 % Low 19-41 [facility] Comment on above: Performed By: #### L 300.3900, L300.4310, L500.4050, L503.6005, L100.0100, M200.1000 ####[facility] [address] [place], [address] MCH (RBC) [Entitic mass] 26.1 pg Low 27.0-32.0 [facility] Comment on above: Performed By: #### L 300.3900, L300.4310, L500.4050, L503.6005, L100.0100, M200.1000 ####[facility] [address] [place], [address] MCHC (RBC) [Mass/Vol] 30.6 g/dL Low 32-36 [facility] Comment on above: Performed By: #### L 300.3900, L300.4310, L500.4050, L503.6005, L100.0100, M200.1000 ####[facility] [address] [place], [address] MCV (RBC) [Entitic vol] 85.4 fL Normal 80-94 [facility] Comment on above: Performed By: #### L 300.3900, L300.4310, L500.4050, L503.6005, L100.0100, M200.1000 ####[facility] [address] [place], [address] Monocytes/100 WBC (Bld) 6.8 % Normal 0-10 [facility] Comment on above: Performed By: #### L 300.3900, L300.4310, L500.4050, L503.6005, L100.0100, M200.1000 ####[facility] [address] [place], [address] Neutrophils/100 WBC (Bld) 85.9 % High 47-70 [facility] Comment on above: Performed By: #### L 300.3900, L300.4310, L500.4050, L503.6005, L100.0100, M200.1000 ####[facility] [address] [place], [address] Nucleated RBC (Bld) [#/Vol] 0 10*3/uL Normal 0-5 [facility] Comment on above: Performed By: #### L 300.3900, L300.4310, L500.4050, L503.6005, L100.0100, M200.1000 ####[facility] [address] [place], [address] Platelet mean volume (Bld) [Entitic vol] 9.6 fL Normal 6.2-12.0 [facility] Comment on above: Performed By: #### L 300.3900, L300.4310, L500.4050, L503.6005, L100.0100, M200.1000 ####[facility] [address] [place], [address] Platelets (Bld) [#/Vol] 236 10*3/uL Normal 150-450 [facility] Comment on above: Performed By: #### L 300.3900, L300.4310, L500.4050, L503.6005, L100.0100, M200.1000 ####[facility] [address] [place], [address] RBC (Bld) [#/Vol] 5.06 10*6/uL Normal 4.6-6.2 [facility] Comment on above: Performed By: #### L 300.3900, L300.4310, L500.4050, L503.6005, L100.0100, M200.1000 ####[facility] [address] [place], [address] RDW SD 45.2 fl High 35.1-43.9 [facility] Comment on above: Performed By: #### L 300.3900, L300.4310, L500.4050, L503.6005, L100.0100, M200.1000 ####[facility] [address] [place], [address] WBC (Bld) [#/Vol] 11.9 10*3/uL High 4.4-11.0 [facility] Comment on above: Performed By: #### L 300.3900, L300.4310, L500.4050, L503.6005, L100.0100, M200.1000 ####[facility] [address] [place], [address] Carbon dioxide, total [Moles /volume] in Central venous bloodOrdered By: Franco Benites on 12-04-2024 CO2 [Moles/Vol] 24.1 mmol/L 21.0-32.0 [facility] Chest 1 Viewon 12-04-2024 Chest 1 View Normal [facility] Chloride assayOrdered By: Adolph Benites on 12-04-2024 Chloride [Moles/Vol] 100 mmol/L 98-108 [facility] Comprehensive Metabolic Prof ilon 12-04-2024 Albumin [Mass/Vol] 4.3 g/dL Normal 3.5-5.0 [facility] Comment on above: Performed By: #### L 300.3900, L300.4310, L500.4050, L503.6005, L100.0100, M200.1000 ####[facility] [address] [place], [address] Albumin/Globulin [Mass ratio] 1.4 {ratio} Normal 0.9-2.4 [facility] Comment on above: Performed By: #### L 300.3900, L300.4310, L500.4050, L503.6005, L100.0100, M200.1000 ####[facility] [address] [place], [address] ALK PHOS 148 U/L High 40-129 [facility] Comment on above: Performed By: #### L 300.3900, L300.4310, L500.4050, L503.6005, L100.0100, M200.1000 ####[facility] [address] [place], [address] ALT [Catalytic activity/Vol] 7 U/L Normal <=46 [facility] Comment on above: Performed By: #### L 300.3900, L300.4310, L500.4050, L503.6005, L100.0100, M200.1000 ####[facility] [address] [place], [address] AST [Catalytic activity/Vol] 17 U/L Normal <=37 [facility] Comment on above: Performed By: #### L 300.3900, L300.4310, L500.4050, L503.6005, L100.0100, M200.1000 ####[facility] [address] [place], [address] Bilirubin [Mass/Vol] 0.37 mg/dL Normal 0.00-1.30 [facility] Comment on above: Performed By: #### L 300.3900, L300.4310, L500.4050, L503.6005, L100.0100, M200.1000 ####[facility] [address] [place], [address] BUN/CRE 14.8 RATIO Normal 10-20 [facility] Comment on above: Performed By: #### L 300.3900, L300.4310, L500.4050, L503.6005, L100.0100, M200.1000 ####[facility] [address] [place], [address] Calcium [Mass/Vol] 9.6 mg/dL Normal 7.6-11.0 [facility] Comment on above: Performed By: #### L 300.3900, L300.4310, L500.4050, L503.6005, L100.0100, M200.1000 ####[facility] [address] [place], [address] Chloride [Moles/Vol] 100 mmol/L Normal 98-108 [facility] Comment on above: Performed By: #### L 300.3900, L300.4310, L500.4050, L503.6005, L100.0100, M200.1000 ####[facility] [address] [place], [address] CO2 [Moles/Vol] 24.1 mmol/L Normal 21.0-32.0 [facility] Comment on above: Performed By: #### L 300.3900, L300.4310, L500.4050, L503.6005, L100.0100, M200.1000 ####[facility] [address] [place], [address] Creatinine [Mass/Vol] 1.15 mg/dL Normal 0.70-1.20 [facility] Comment on above: Performed By: #### L 300.3900, L300.4310, L500.4050, L503.6005, L100.0100, M200.1000 ####[facility] [address] [place], [address] ECRCL 86.37 ml/min Normal 50-250 [facility] Comment on above: Performed By: #### L 300.3900, L300.4310, L500.4050, L503.6005, L100.0100, M200.1000 ####[facility] [address] [place], [address] GAP 17 High 5-15 [facility] Comment on above: Performed By: #### L 300.3900, L300.4310, L500.4050, L503.6005, L100.0100, M200.1000 ####[facility] [address] [place], [address] GFR/1.73 sq M.predicted among non-blacks MDRD (S/P/Bld) [Vol rate/Area] 76 mL/min/{1.73_m2} Normal >60 [facility] Comment on above: Result Comment: mL/m in/1.73m2 CKD-EPI Creatinine Equation (2020) Performed By: #### L 300.3900, L300.4310, L500.4050, L503.6005, L100.0100, M200.1000 ####[facility] [address] [place], [address] Globulin (S) [Mass/Vol] 3.0 g/dL Normal 2.2-4.2 [facility] Comment on above: Performed By: #### L 300.3900, L300.4310, L500.4050, L503.6005, L100.0100, M200.1000 ####[facility] [address] [place], [address] Glucose [Mass/Vol] 112 mg/dL High 70-99 [facility] Comment on above: Performed By: #### L 300.3900, L300.4310, L500.4050, L503.6005, L100.0100, M200.1000 ####[facility] [address] [place], [address] Potassium [Moles/Vol] 4.3 mmol/L Normal 3.3-5.1 [facility] Comment on above: Performed By: #### L 300.3900, L300.4310, L500.4050, L503.6005, L100.0100, M200.1000 ####[facility] [address] [place], [address] Sodium [Moles/Vol] 141 mmol/L Normal 133-145 [facility] Comment on above: Performed By: #### L 300.3900, L300.4310, L500.4050, L503.6005, L100.0100, M200.1000 ####[facility] [address] [place], [address] T PROT 7.3 g/dL Normal 5.9-8.4 [facility] Comment on above: Performed By: #### L 300.3900, L300.4310, L500.4050, L503.6005, L100.0100, M200.1000 ####[facility] [address] [place], [address] Urea nitrogen [Mass/Vol] 17 mg/dL Normal 4-19 [facility] Comment on above: Performed By: #### L 300.3900, L300.4310, L500.4050, L503.6005, L100.0100, M200.1000 ####[facility] [address] [place], [address] Emergency Department Summary on 12-04-2024 Emergency Department Summary Normal [facility] Eosinophil percentageOrdered By: Franco Benites on 12-04-2024 Eosinophils/100 WBC (Bld) 0.5 % 0-5 [facility] Erythrocyte distribution wid th ratioOrdered By: Franco Benites on 12-04-2024 Erythrocyte distribution width (RBC) [Ratio] 14.6 % 11.6-14.6 [facility] Erythrocyte distribution wid th standard deviationOrdered By: Franco Rodriguez on 12-04-2024 Erythrocyte distribution width (RBC) [Ratio] 45.2 fl High 35.1-43.9 [facility] Glomerular filtration rate ( GFR) estimation/1.73 sq m using serum, plasma, or whole bOrdered By: Franco Benites on 12-04-2024 GFR/1.73 sq M.predicted among non-blacks MDRD (S/P/Bld) [Vol rate/Area] 76 mL/min/{1.73_m2} >60 [facility] Comment on above: mL/min/1.73m2 CKD-EP I Creatinine Equation (2020) H AND P Exam - Hospitaliston 12-04-2024 H&P Exam - Hospitalist Normal [place] Hematocrit Auto (Bld) [Volum e fraction]Or[facility]: [facility]-2024 Hematocrit (Bld) [Volume fraction] 43.2 % 40-54 [facility] Hemoglobin measurementOrdere d By: Franco Benites on 12-04-2024 Hemoglobin (Bld) [Mass/Vol] 13.2 g/dL 13.0-16.5 [facility] Immature granulocytes/100 WB C Auto (Bld)Ordered By: Franco Benites on 12-04-2024 Immature granulocytes/100 WBC (Bld) 0.300 % 0.0-0.9 [facility] Comment on above: IG% - Immature Granu locytes (promyelocytes, myelocytes and metamyelocytes) > 1% indicates that a LEFT SHIFT is Present. International normalized rat io (INR) calculationOrdered By: Franco Benites on 12-04-2024 INR Coag (Bld) [Relative time] 1.0 {INR} [facility] Ketones Test strip Ql (U)Ord ered By: Franco Benites on 12-04-2024 Ketones Ql (U) 5 mg/dl High Negative [facility] L499.0042on 12-04-2024 Trop T High Sen 91 ng/L Invalid Interpretation Code <=22 [facility] Comment on above: Result Comment: Crit ical Result(s) Called at 1337: by: BRAYDEN SAAB. ??Results read back by same. Performed By: #### L 499.0042 ####[facility] [address] [place], [place], [address] L501.4021on 12-04-2024 Trop T High Sen 35 ng/L High <=22 [facility] Comment on above: Performed By: #### L 501.4021 ####[facility] [address] [place], [place], [address] Laboratory - Chemistry and C hemistry - challengeOrdered By: Franco Benites on 12-04-2024 AST [Catalytic activity/Vol] 17 U/L <38 [facility] Lactic Acidon 12-04-2024 Lactate [Moles/Vol] mmol/L Normal 0.0-2.0 [facility] Comment on above: Performed By: #### L 503.6005 ####[facility] [address] [place], [place], [address] Lactate [Moles/Vol] 5.1 mmol/L Invalid Interpretation Code 0.0-2.0 [facility] Comment on above: Order Comment: Y Result Comment: Crit ical Result(s) Called at 1150: by:?? BRAYDEN BERNARD. Results read back by same. Performed By: #### L 300.3900, L300.4310, L500.4050, L503.6005, L100.0100, M200.1000 ####[facility] [address] [place], [place], [address] Lactic acid measurementOrder ed By: Franco Benites on 12-04-2024 Lactate [Moles/Vol] mmol/L 0.0-2.0 [facility] Lactate [Moles/Vol] 5.1 mmol/L High 0.0-2.0 [facility] Comment on above: Critical Result(s) C alled at 1150: by: BRAYDEN SPRAGUE TO ANYA. Results read back by same. MCV (mean corpuscular volume ) determinationOrdered By: Franco Benites on 12-04-2024 MCV (RBC) [Entitic vol] 85.4 fL 80-94 [facility] Mean corpuscular hemoglobin (MCH) determinationOrdered By: Franco Benites on 12-04-2024 MCH (RBC) [Entitic mass] 26.1 pg Low 27.0-32.0 [facility] Mean corpuscular hemoglobin concentration (MCHC) determinationOrdered By: Franco Benites on 12-04-2024 MCHC (RBC) [Mass/Vol] 30.6 g/dL Low 32-36 [facility] Mean platelet volume determi nationOrdered By: Franco Benites on 12-04-2024 Platelet mean volume (Bld) [Entitic vol] 9.6 fL 6.2-12.0 [facility] Measurement, pHOrdered By: Tanisha Benites on 12-04-2024 pH (Unsp spec) 7.36 [pH] 7.35-7.45 [facility] Microscopic analysis of urin e for red blood cells (RBC)Ordered By: Franco Benites on 12-04-2024 Microscopic analysis of urine for red blood cells (RBC) 0-5 SEEN /hpf 0-5 [facility] Monocyte percentageOrdered B y: Franco Benites on 12-04-2024 Monocytes/100 WBC (Bld) 6.8 % 0-10 [facility] Mucus LM Ql (Urine sed)Order ed By: Franco Benites on 12-04-2024 Mucus Ql (Urine sed) 0 SEEN /hpf [facility] Neutrophil percentageOrdered By: Franco Benites on 12-04-2024 Neutrophils/100 WBC (Bld) 85.9 % High 47-70 [facility] Nitrite Test strip Ql (U)Ord ered By: Franco Benites on 12-04-2024 Nitrite Ql (U) Negative Negative [facility] No Panel InformationOrdered By: Franco Benites on 12-04-2024 Blood Gas Sample Site L Brach [facility] Blood Gas Specimen Type ART W [facility] Blood Gas Vent Mode Not entered [facility] Oxygen Delivery Device Not entered [facility] Nucleated red blood cell per centageOrdered By: Franco Benites on 12-04-2024 Nucleated RBC/100 WBC (Bld) [Ratio] 0 % 0-5 [facility] Partial Thromboplast Timeon 12-04-2024 aPTT Coag (Bld) [Time] 23.7 s Low 24.1-36.2 [place] Comment on above: Performed By: #### L 300.3900, L300.4310, L500.4050, L503.6005, L100.0100, M200.1000 ####[facility] [address] [place], [place], [id number] Platelet countOrdered By: Adolph Benites on 12-04-2024 Platelets (Bld) [#/Vol] 236 10*3/uL 150-450 [facility] Potassium measurement (mass/ volume)Ordered By: Franco Benites on 12-04-2024 Potassium (Unsp spec) [Mass/Vol] 4.3 mmol/L 3.3-5.1 [facility] Protein Test strip Ql (U)Ord ered By: Franco Benites on 12-04-2024 Protein Ql (U) 30 mg/dl High Negative [facility] Prothrombin Time w/INRon INR Coag (PPP) [Relative time] 1.0 {INR} Normal [facility] Comment on above: Performed By: #### L 300.3900, L300.4310, L500.4050, L503.6005, L100.0100, M200.1000 ####[facility] [address] [place], [address] PT Coag (PPP) [Time] 13.4 s Normal 11.7-14.9 [facility] Comment on above: Performed By: #### L 300.3900, L300.4310, L500.4050, L503.6005, L100.0100, M200.1000 ####[facility] [address] [place], [address] Prothrombin timeOrdered By: Franco Benites on 12-04-2024 PT Coag (PPP) [Time] 13.4 s 11.7-14.9 [facility] RBC Auto (Bld) [#/Vol]Ordere d By: Franco Benites on 12-04-2024 RBC (Bld) [#/Vol] 5.06 10*6/uL 4.6-6.2 [facility] RESPIRATORY PANEL MOLECULARo n 12-04-2024 RP PANEL Normal [facility] Comment on above: Performed By: #### M 100.638 ####[facility] [address] [place], [address] Respiratory pathogens detect ion panel by molecular detection methodOrdered By: Franco Benites on 12-04-2024 Respiratory pathogens DNA and RNA panel DALIA+probe (Resp) [facility] Serum creatinine measurement (mass/volume)Ordered By: Franco Benites on 12-04-2024 Creatinine [Mass/Vol] 1.15 mg/dL 0.70-1.20 [facility] Serum globulin measurementOr dered By: Franco Benites on 12-04-2024 Globulin (S) [Mass/Vol] 3.0 g/dL 2.2-4.2 [facility] Serum glucose measurement (m ass/volume)Ordered By: Franco Benites on 12-04-2024 Glucose [Mass/Vol] 112 mg/dL High 70-99 [facility] Serum or plasma alanine ramsey otransferase (ALT) measurementOrdered By: Franco Benites on 12-04-2024 ALT [Catalytic activity/Vol] 7 U/L <47 [facility] Serum or plasma albumin michael urement (mass/volume)Ordered By: Franco Rodriguez on 12-04-2024 Albumin [Mass/Vol] 4.3 g/dL 3.5-5.0 [facility] Serum or plasma albumin/glob ulin mass ratioOrdered By: Franco Benites on 12-04-2024 Albumin/Globulin [Mass ratio] 1.4 {ratio} 0.9-2.4 [facility] Serum or plasma alkaline katey sphatase measurementOrdered By: Franco Benites on 12-04-2024 ALP [Catalytic activity/Vol] 148 U/L High 40-129 [facility] Serum or plasma calcium michael urement (mass/volume)Ordered By: Franco Rodriguez on 12-04-2024 Calcium [Mass/Vol] 9.6 mg/dL 7.6-11.0 [facility] Serum or plasma urea nitroge n measurement (mass/volume)Ordered By: Franco Benites on 12-04-2024 Urea nitrogen [Mass/Vol] 17 mg/dL 4-19 [facility] Sodium levelOrdered By: Wesley Benites on 12-04-2024 Sodium [Moles/Vol] 141 mmol/L 133-145 [facility] Squamous epithelial cells de tection in urine sediment by light microscopyOrdered By: Franco Benites on 12-04-2024 Epithelial cells.squamous LM Ql (Urine sed) 0 SEEN /hpf 0-5 [facility] Total carbon dioxide measure mentOrdered By: Franco Benites on 12-04-2024 CO2 [Moles/Vol] 35 mmol/L [facility] Total proteinOrdered By: Ulysses Benites on 12-04-2024 Protein [Mass/Vol] 7.3 g/dL 5.9-8.4 [facility] Troponin T.cardiac [Mass/vol ume] in Serum or Plasma by High sensitivity methodOrdered By: Franco Benites on 12-04-2024 Troponin T.cardiac High sensitivity method [Mass/Vol] 91 ng/L High <22 [facility] Comment on above: Critical Result(s) C alled at 1337: by: BRAYDEN SPRAGUE TO [facility]. Results read back by same. Troponin T.cardiac High sensitivity method [Mass/Vol] 35 ng/L High <22 [facility] Urinalysis, Completeon 12-04 RBC 0-5 SEEN Normal 0-5 [facility] Comment on above: Order Comment: CANDE CTOR TO SPECIFY Performed By: #### L 400.0001, M100.2200 ####[facility] [address] [place], [address] WBC 0-5 SEEN Normal 0-5 [facility] Comment on above: Order Comment: CANED CTOR TO SPECIFY Performed By: #### L 400.0001, M100.2200 ####[facility] [address] [place], [address] BACTERIA 0 SEEN Normal None Seen [facility] Comment on above: Order Comment: CANDE CTOR TO SPECIFY Performed By: #### L 400.0001, M100.2200 ####[facility] [address] [place], [address] EPI,SQUAMOUS 0 SEEN Normal 0-5 [facility] Comment on above: Order Comment: CANDE CTOR TO SPECIFY Performed By: #### L 400.0001, M100.2200 ####[facility] [address] [place], [address] Mucus Ql (Urine sed) 0 SEEN Normal [facility] Comment on above: Order Comment: CANDE CTOR TO SPECIFY Performed By: #### L 400.0001, M100.2200 ####[facility] [address] [place], [address] Urine clarityOrdered By: Ulysses Benites on 12-04-2024 Clarity (U) Clear Clear [facility] Urine color determinationOrd ered By: Franco Benites on 12-04-2024 Color (U) Yellow Yellow [facility] Urine cultureOrdered By: Ulysses Benites on 12-04-2024 Bacteria identified Cx Nom (U) Acinetobacter baumannii Abnormal [facility] Urine glucose detectionOrder ed By: Franco Benites on 12-04-2024 Glucose Ql (U) Normal mg/dl Normal [facility] Urine leukocyte esterase det ection by dipstickOrdered By: Franco Benites on 12-04-2024 Leukocyte esterase Test strip Ql (U) 25 /ul High Negative [facility] Urine pHOrdered By: Franco Drummond on 12-04-2024 pH (U) 5.0 [pH] 5.0 - 8.0 [facility] Urine sediment bacteria coun t by microscopy (number/high power field)Ordered By: Franco Benites on 12-04-2024 Bacteria LM.HPF (Urine sed) [#/Area] 0 /[HPF] None Seen [facility] Urine specific gravity measu rementOrdered By: Franco Benites on 12-04-2024 Specific gravity (U) [Rel density] 1.020 1.002-1.030 [facility] Urine urobilinogen measureme ntOrdered By: Franco Benites on 12-04-2024 Urobilinogen Ql (U) Normal mg/dl Normal [facility] White blood cell (WBC) count Ordered By: Franco Benites on 12-04-2024 WBC (Bld) [#/Vol] 11.9 10*3/uL High 4.4-11.0 [facility] White blood cell countOrdere d By: Franco Benites on 12-04-2024 White blood cell count 0-5 SEEN /hpf 0-5 [facility] Culture, Blood (WB)on 2024 CUB Blood cultures x2, from two different sites No growth in 5 days. Normal [facility] Comment on above: Performed By: #### L 500.4050, L503.6005, M200.1000, L300.4310, L300.3900, L100.0100 ####[facility] [address] [place], [address] CUB Blood cultures x2, from two different sites No growth in 5 days. Normal [facility] Comment on above: Performed By: #### M 200.1000 ####[facility] [address] [place], [address] Basic Metabolic Profile (BMP )on 08-01-2024 BUN/CRE 12.0 RATIO Normal 10-20 [facility] Comment on above: Performed By: #### L 500.2500, L100.0100 ####[facility] [address] [place], [address] CA,Total 9.8 mg/dL Normal 8.5-10.1 [facility] Comment on above: Performed By: #### L 500.2500, L100.0100 ####[facility] [address] [place], [address] Chloride [Moles/Vol] 102 mmol/L Normal 98-107 [facility] Comment on above: Performed By: #### L 500.2500, L100.0100 ####[facility] [address] [place], [address] CO2 [Moles/Vol] 29.0 mmol/L Normal 21.0-32.0 [facility] Comment on above: Performed By: #### L 500.2500, L100.0100 ####[facility] [address] [place], [address] Creatinine [Mass/Vol] 0.92 mg/dL Normal 0.70-1.30 [facility] Comment on above: Result Comment: The validity of the calculated GFR GFRAA in patients over70 years has not been determined. Clinical correlation isessential. Performed By: #### L 500.2500, L100.0100 ####[facility] [address] [place], [address] ECRCL 105.89 ml/min Normal [facility] Comment on above: Performed By: #### L 500.2500, L100.0100 ####[facility] [address] [place], [address] EST GFR - AA 111 mL/min Normal >60 [facility] Comment on above: Result Comment: Afri can Ecuadorean GFR Calc Performed By: #### L 500.2500, L100.0100 ####[facility] [address] [place], [address] GAP 5 Normal 5-15 [facility] Comment on above: Performed By: #### L 500.2500, L100.0100 ####[facility] [address] [place], [address] GFR/1.73 sq M.predicted among non-blacks MDRD (S/P/Bld) [Vol rate/Area] 91 mL/min/{1.73_m2} Normal >60 [facility] Comment on above: Result Comment: Non- GFR Calc Performed By: #### L 500.2500, L100.0100 ####[facility] [address] [place], [address] Glucose [Mass/Vol] 126 mg/dL High 74-106 [facility] Comment on above: Result Comment: Fast ing Glucose result greater than or equal to 126 mg/dLsuggests DIABETES MELLITUS per A.D.A. criteria. Performed By: #### L 500.2500, L100.0100 ####[facility] [address] [place], [address] Potassium [Moles/Vol] 4.3 mmol/L Normal 3.5-5.1 [facility] Comment on above: Performed By: #### L 500.2500, L100.0100 ####[facility] [address] [place], [address] Sodium [Moles/Vol] 136 mmol/L Normal 136-145 [facility] Comment on above: Performed By: #### L 500.2500, L100.0100 ####[facility] [address] [place], [address] Urea nitrogen [Mass/Vol] 11 mg/dL Normal 7-18 [facility] Comment on above: Performed By: #### L 500.2500, L100.0100 ####[facility] [address] [place], [address] Bedside Glucoseon 08-01-2024 FINGERSTICK GLU 173 mg/dL High 74-106 [facility] Comment on above: Result Comment: JEFFREY GEMENT OF PATIENT CARE PER NURSING PROTOCOL Performed By: #### L 501.080 ####[facility] [address] [place], [address] FINGERSTICK GLU 156 mg/dL High 74-106 [facility] Comment on above: Result Comment: JEFFREY GEMENT OF PATIENT CARE PER NURSING PROTOCOL Performed By: #### L 501.080 ####[facility] [address] [place], [address] FINGERSTICK GLU 125 mg/dL High 74-106 [facility] Comment on above: Result Comment: JEFFREY GEMENT OF PATIENT CARE PER NURSING PROTOCOL Performed By: #### L 501.080 ####[facility] [address] [place], [address] CBC W/Diff, Automatedon 02-0 Absolute Lymph 0.61 X10 3/uL Low 0.83-4.51 [facility] Comment on above: Performed By: #### L 500.2500, L100.0100 ####[facility] [address] [place], [address] Absolute Neut 3.9 X10 3/uL Normal 2.0-7.7 [facility] Comment on above: Performed By: #### L 500.2500, L100.0100 ####[facility] [address] [place], [address] Basophils/100 WBC (Bld) 0.2 % Normal 0-1 [facility] Comment on above: Performed By: #### L 500.2500, L100.0100 ####[facility] [address] [place], [address] Eosinophils/100 WBC (Bld) 0.0 % Normal 0-5 [facility] Comment on above: Performed By: #### L 500.2500, L100.0100 ####[facility] [address] [place], [address] Erythrocyte distribution width (RBC) [Ratio] 14.8 % High 11.6-14.6 [facility] Comment on above: Performed By: #### L 500.2500, L100.0100 ####[facility] [address] [place], [address] Hematocrit (Bld) [Volume fraction] 40.5 % Normal 40-54 [facility] Comment on above: Performed By: #### L 500.2500, L100.0100 ####[facility] [address] [place], [address] Hemoglobin (Bld) [Mass/Vol] 12.5 g/dL Low 13.0-16.5 [facility] Comment on above: Performed By: #### L 500.2500, L100.0100 ####[facility] [address], [address] IG% 0.200 Normal 0.0-0.9 [facility] Comment on above: Result Comment: IG% - Immature Granulocytes (promyelocytes, myelocytes andmetamyelocytes) > 1% indicates that a LEFT SHIFT is Present. Performed By: #### L 500.2500, L100.0100 ####[facility] [address] [place], [address] Lymphocytes/100 WBC (Bld) 12.1 % Low 19-41 [facility] Comment on above: Performed By: #### L 500.2500, L100.0100 ####[facility] [address] [place], [address] MCH (RBC) [Entitic mass] 26.5 pg Low 27.0-32.0 [facility] Comment on above: Performed By: #### L 500.2500, L100.0100 ####[facility] [address] [place], [address] MCHC (RBC) [Mass/Vol] 30.9 g/dL Low 32-36 [facility] Comment on above: Performed By: #### L 500.2500, L100.0100 ####[facility] [address] [place], [address] MCV (RBC) [Entitic vol] 86.0 fL Normal 80-94 [facility] Comment on above: Performed By: #### L 500.2500, L100.0100 ####[facility] [address] [place], [address] Monocytes/100 WBC (Bld) 9.7 % Normal 0-10 [facility] Comment on above: Performed By: #### L 500.2500, L100.0100 ####[facility] [address] [place], [address] Neutrophils/100 WBC (Bld) 77.8 % High 47-70 [facility] Comment on above: Performed By: #### L 500.2500, L100.0100 ####[facility] [address] [place], [address] Nucleated RBC (Bld) [#/Vol] 0 10*3/uL Normal 0-5 [facility] Comment on above: Performed By: #### L 500.2500, L100.0100 ####[facility] [address] [place], [address] Platelet mean volume (Bld) [Entitic vol] 9.3 fL Normal 6.2-12.0 [facility] Comment on above: Performed By: #### L 500.2500, L100.0100 ####[facility] [address] [place], [address] Platelets (Bld) [#/Vol] 206 10*3/uL Normal 150-450 [facility] Comment on above: Performed By: #### L 500.2500, L100.0100 ####[facility] [address] [place], [address] RBC (Bld) [#/Vol] 4.71 10*6/uL Normal 4.6-6.2 [facility] Comment on above: Performed By: #### L 500.2500, L100.0100 ####[facility] [address] [place], [address] RDW SD 46.8 fl High 35.1-43.9 [facility] Comment on above: Performed By: #### L 500.2500, L100.0100 ####[facility] [address] [place], [address] WBC (Bld) [#/Vol] 5.0 10*3/uL Normal 4.4-11.0 [facility] Comment on above: Performed By: #### L 500.2500, L100.0100 ####[facility] [address] [place], [address] 12 Lead EKGon 07-31-2024 12 Lead EKG Normal [facility] Bedside Glucoseon 07-31-2024 FINGERSTICK GLU 116 mg/dL High 74-106 [facility] Comment on above: Result Comment: JEFFREY BOWIE OF PATIENT CARE PER NURSING PROTOCOL Performed By: #### L 501.080 ####[facility] [address] [place], [address] Blood Gases by CPSon 025 Base excess Calc (Bld) [Moles/Vol] 6 mmol/L High -2 to +2 [facility] Comment on above: Performed By: #### L 9000.0800 ####[facility] [address] [place], [address] Blood Gas Type ART [facility] Comment on above: Performed By: #### L 9000.0800 ####[facility] [address] [place], [address] CO2 [Moles/Vol] 32 mmol/L Normal [facility] Comment on above: Performed By: #### L 9000.0800 ####[facility] [address] [place], [address] FI02 4.0 [facility] Comment on above: Performed By: #### L 9000.0800 ####[facility] [address] [place], [address] HCO3 (Bld) [Moles/Vol] 30.6 mmol/L High 22-26 [facility] Comment on above: Performed By: #### L 9000.0800 ####[facility] [address] [place], [address] Mode Not entered [facility] Comment on above: Performed By: #### L 9000.0800 ####[facility] [address] [place], [address] O2 Delivery Dev Not entered [facility] Comment on above: Performed By: #### L 9000.0800 ####[facility] [address] [place], [address] pCO2 50.8 mmHg High 35-45 [facility] Comment on above: Performed By: #### L 9000.0800 ####[facility] [address] [place], [address] pH (Bld) 7.39 [pH] Normal 7.35-7.45 [facility] Comment on above: Performed By: #### L 9000.0800 ####[facility] [address] [place], [address] PO2 60 mmHG Low 75-100 [facility] Comment on above: Performed By: #### L 9000.0800 ####[facility] [address] [place], [address] SITE Not entered [facility] Comment on above: Performed By: #### L 9000.0800 ####[facility] [address] [place], [address] SO2 90 Low 95-99 [facility] Comment on above: Performed By: #### L 9000.0800 ####[facility] [address] [place], [address] CBC W/Diff, Automatedon 02-0 -2024 Absolute Lymph 0.33 X10 3/uL Low 0.83-4.51 [facility] Comment on above: Performed By: #### L 500.4050, L503.6005, M200.1000, L300.4310, L300.3900, L100.0100 ####[facility] [address] [place], [address] Absolute Neut 5.7 X10 3/uL Normal 2.0-7.7 [facility] Comment on above: Performed By: #### L 500.4050, L503.6005, M200.1000, L300.4310, L300.3900, L100.0100 ####[facility] [address] [place], [address] Basophils/100 WBC (Bld) 0.3 % Normal 0-1 [facility] Comment on above: Performed By: #### L 500.4050, L503.6005, M200.1000, L300.4310, L300.3900, L100.0100 ####[facility] [address] [place], [address] Eosinophils/100 WBC (Bld) 0.3 % Normal 0-5 [facility] Comment on above: Performed By: #### L 500.4050, L503.6005, M200.1000, L300.4310, L300.3900, L100.0100 ####[facility] [address] [place], [address] Erythrocyte distribution width (RBC) [Ratio] 15.0 % High 11.6-14.6 [facility] Comment on above: Performed By: #### L 500.4050, L503.6005, M200.1000, L300.4310, L300.3900, L100.0100 ####[facility] [address] [place], [address] Hematocrit (Bld) [Volume fraction] 41.3 % Normal 40-54 [facility] Comment on above: Performed By: #### L 500.4050, L503.6005, M200.1000, L300.4310, L300.3900, L100.0100 ####[facility] [address] [place], [address] Hemoglobin (Bld) [Mass/Vol] 12.8 g/dL Low 13.0-16.5 [facility] Comment on above: Performed By: #### L 500.4050, L503.6005, M200.1000, L300.4310, L300.3900, L100.0100 ####[facility] [address] [place], [address] IG% 0.300 Normal 0.0-0.9 [facility] Comment on above: Result Comment: IG% - Immature Granulocytes (promyelocytes, myelocytes andmetamyelocytes) > 1% indicates that a LEFT SHIFT is Present. Performed By: #### L 500.4050, L503.6005, M200.1000, L300.4310, L300.3900, L100.0100 ####[facility] [address] [place], [address] Lymphocytes/100 WBC (Bld) 4.8 % Low 19-41 [facility] Comment on above: Performed By: #### L 500.4050, L503.6005, M200.1000, L300.4310, L300.3900, L100.0100 ####[facility] [address] [place], [address] MCH (RBC) [Entitic mass] 26.9 pg Low 27.0-32.0 [facility] Comment on above: Performed By: #### L 500.4050, L503.6005, M200.1000, L300.4310, L300.3900, L100.0100 ####[facility] [address] [place], [address] MCHC (RBC) [Mass/Vol] 31.0 g/dL Low 32-36 [facility] Comment on above: Performed By: #### L 500.4050, L503.6005, M200.1000, L300.4310, L300.3900, L100.0100 ####[facility] [address] [place], [address] MCV (RBC) [Entitic vol] 86.8 fL Normal 80-94 [facility] Comment on above: Performed By: #### L 500.4050, L503.6005, M200.1000, L300.4310, L300.3900, L100.0100 ####[facility] [address] [place], [address] Monocytes/100 WBC (Bld) 10.8 % High 0-10 [facility] Comment on above: Performed By: #### L 500.4050, L503.6005, M200.1000, L300.4310, L300.3900, L100.0100 ####[facility] [address] [place], [address] Neutrophils/100 WBC (Bld) 83.5 % High 47-70 [facility] Comment on above: Performed By: #### L 500.4050, L503.6005, M200.1000, L300.4310, L300.3900, L100.0100 ####[facility] [address] [place], [address] Nucleated RBC (Bld) [#/Vol] 0 10*3/uL Normal 0-5 [facility] Comment on above: Performed By: #### L 500.4050, L503.6005, M200.1000, L300.4310, L300.3900, L100.0100 ####[facility] [address] [place], [address] Platelet mean volume (Bld) [Entitic vol] 9.8 fL Normal 6.2-12.0 [facility] Comment on above: Performed By: #### L 500.4050, L503.6005, M200.1000, L300.4310, L300.3900, L100.0100 ####[facility] [address] [place], [address] Platelets (Bld) [#/Vol] 204 10*3/uL Normal 150-450 [facility] Comment on above: Performed By: #### L 500.4050, L503.6005, M200.1000, L300.4310, L300.3900, L100.0100 ####[facility] [address] [place], [address] RBC (Bld) [#/Vol] 4.76 10*6/uL Normal 4.6-6.2 [facility] Comment on above: Performed By: #### L 500.4050, L503.6005, M200.1000, L300.4310, L300.3900, L100.0100 ####[facility] [address] [place], [address] RDW SD 47.6 fl High 35.1-43.9 [facility] Comment on above: Performed By: #### L 500.4050, L503.6005, M200.1000, L300.4310, L300.3900, L100.0100 ####[facility] [address] [place], [address] WBC (Bld) [#/Vol] 6.8 10*3/uL Normal 4.4-11.0 [facility] Comment on above: Performed By: #### L 500.4050, L503.6005, M200.1000, L300.4310, L300.3900, L100.0100 ####[facility] [address] [place], [address] Chest 1 View (Portable)on Chest 1 View (Portable) Normal W [facility] Comprehensive Metabolic Prof ilon 07-31-2024 Albumin [Mass/Vol] 3.5 g/dL Normal 3.2-5.0 [facility] Comment on above: Performed By: #### L 500.4050, L503.6005, M200.1000, L300.4310, L300.3900, L100.0100 ####[facility] [address] [place], [address] Albumin/Globulin [Mass ratio] 0.9 {ratio} Normal 0.9-2.4 [facility] Comment on above: Performed By: #### L 500.4050, L503.6005, M200.1000, L300.4310, L300.3900, L100.0100 ####[facility] [address] [place], [address] ALK P 125 U/L High 45-117 [facility] Comment on above: Performed By: #### L 500.4050, L503.6005, M200.1000, L300.4310, L300.3900, L100.0100 ####[facility] [address] [place], [address] ALT [Catalytic activity/Vol] 12 U/L Low 16-61 [facility] Comment on above: Performed By: #### L 500.4050, L503.6005, M200.1000, L300.4310, L300.3900, L100.0100 ####[facility] [address] [place], [address] AST [Catalytic activity/Vol] 11 U/L Low 15-37 [facility] Comment on above: Performed By: #### L 500.4050, L503.6005, M200.1000, L300.4310, L300.3900, L100.0100 ####[facility] [address] [place], [address] Bilirubin [Mass/Vol] 0.40 mg/dL Normal 0.20-1.00 [facility] Comment on above: Result Comment: For patients on eltrombopag therapy, use of Dimension Cavalier TBIL is not recommended. Performed By: #### L 500.4050, L503.6005, M200.1000, L300.4310, L300.3900, L100.0100 ####[facility] [address] [place], [address] BUN/CRE 10.8 RATIO Normal 10-20 [facility] Comment on above: Performed By: #### L 500.4050, L503.6005, M200.1000, L300.4310, L300.3900, L100.0100 ####[facility] [address] [place], [address] CA,Total 9.7 mg/dL Normal 8.5-10.1 [facility] Comment on above: Performed By: #### L 500.4050, L503.6005, M200.1000, L300.4310, L300.3900, L100.0100 ####[facility] [address] [place], [address] Chloride [Moles/Vol] 103 mmol/L Normal 98-107 [facility] Comment on above: Performed By: #### L 500.4050, L503.6005, M200.1000, L300.4310, L300.3900, L100.0100 ####[facility] [address] [place], [address] CO2 [Moles/Vol] 28.0 mmol/L Normal 21.0-32.0 [facility] Comment on above: Performed By: #### L 500.4050, L503.6005, M200.1000, L300.4310, L300.3900, L100.0100 ####[facility] [address] [place], [address] Creatinine [Mass/Vol] 1.30 mg/dL Normal 0.70-1.30 [facility] Comment on above: Result Comment: The validity of the calculated GFR GFRAA in patients over70 years has not been determined. Clinical correlation isessential. Performed By: #### L 500.4050, L503.6005, M200.1000, L300.4310, L300.3900, L100.0100 ####[facility] [address] [place], [address] ECRCL 76.89 ml/min Normal [facility] Comment on above: Performed By: #### L 500.4050, L503.6005, M200.1000, L300.4310, L300.3900, L100.0100 ####[facility] [address] [place], [address] EST GFR - AA 74 mL/min Normal >60 [facility] Comment on above: Result Comment: Afri can Ecuadorean GFR Calc Performed By: #### L 500.4050, L503.6005, M200.1000, L300.4310, L300.3900, L100.0100 ####[facility] [address] [place], [address] GAP 7 Normal 5-15 [facility] Comment on above: Performed By: #### L 500.4050, L503.6005, M200.1000, L300.4310, L300.3900, L100.0100 ####[facility] [address] [place], [address] GFR/1.73 sq M.predicted among non-blacks MDRD (S/P/Bld) [Vol rate/Area] 61 mL/min/{1.73_m2} Normal >60 [facility] Comment on above: Result Comment: Non- GFR Calc Performed By: #### L 500.4050, L503.6005, M200.1000, L300.4310, L300.3900, L100.0100 ####[facility] [address] [place], [address] Globulin (S) [Mass/Vol] 3.7 g/dL Normal 2.2-4.2 [facility] Comment on above: Performed By: #### L 500.4050, L503.6005, M200.1000, L300.4310, L300.3900, L100.0100 ####[facility] [address] [place], [address] Glucose [Mass/Vol] 112 mg/dL High 74-106 [facility] Comment on above: Result Comment: Fast ing Glucose result from 100 to 125 mg/dLsuggests IMPAIRED HOMEOSTASIS per A.D.A. criteria. Performed By: #### L 500.4050, L503.6005, M200.1000, L300.4310, L300.3900, L100.0100 ####[facility] [address] [place], [address] Potassium [Moles/Vol] 4.2 mmol/L Normal 3.5-5.1 [facility] Comment on above: Performed By: #### L 500.4050, L503.6005, M200.1000, L300.4310, L300.3900, L100.0100 ####[facility] [address] [place], [address] Sodium [Moles/Vol] 138 mmol/L Normal 136-145 [facility] Comment on above: Performed By: #### L 500.4050, L503.6005, M200.1000, L300.4310, L300.3900, L100.0100 ####[facility] [address] [place], [address] T PROT 7.2 g/dL Normal 6.4-8.2 [facility] Comment on above: Performed By: #### L 500.4050, L503.6005, M200.1000, L300.4310, L300.3900, L100.0100 ####[facility] [address] [place], [address] Urea nitrogen [Mass/Vol] 14 mg/dL Normal 7-18 [facility] Comment on above: Performed By: #### L 500.4050, L503.6005, M200.1000, L300.4310, L300.3900, L100.0100 ####[facility] [address] [place], [place], [address] Emergency Department Summary on 07-31-2024 Emergency Department Summary Normal [facility] H AND P Exam - Hospitaliston 07-31-2024 H&P Exam - Hospitalist Normal [place] Lactic Acidon 07-31-2024 Lactate [Moles/Vol] 2.3 mmol/L Invalid Interpretation Code 0.4-1.9 [facility] Comment on above: Result Comment: Crit ical Result(s) Called at: 23:41:34 07/31/2024 by: LOUIS. Results read back by Performed By: #### L 503.6005 ####[facility] [address] [place], [address] Lactate [Moles/Vol] 3.0 mmol/L Invalid Interpretation Code 0.4-1.9 [facility] Comment on above: Order Comment: Y Result Comment: Crit ical Result(s) Called at: 13:09:37 07/31/2024 by:LELE QUINTEROS. Results read back by tarah. Performed By: #### L 500.4050, L503.6005, M200.1000, L300.4310, L300.3900, L100.0100 ####[facility] [address] [place], [address] Partial Thromboplast Timeon 07-31-2024 aPTT Coag (Bld) [Time] 27.0 s Normal 24.1-36.2 [place] Comment on above: Performed By: #### L 500.4050, L503.6005, M200.1000, L300.4310, L300.3900, L100.0100 ####[facility] [address] [place], [address] Prothrombin Time w/INRon INR Coag (PPP) [Relative time] 1.1 {INR} Normal [facility] Comment on above: Performed By: #### L 500.4050, L503.6005, M200.1000, L300.4310, L300.3900, L100.0100 ####[facility] [address] [place], [address] PT Coag (PPP) [Time] 14.2 s Normal 11.7-14.9 [facility] Comment on above: Performed By: #### L 500.4050, L503.6005, M200.1000, L300.4310, L300.3900, L100.0100 ####[facility] [address] [place], [address] Urinalysis, Completeon 07-31 WBC 0-5 SEEN Normal 0-5 [facility] Comment on above: Order Comment: CANDE CTOR TO SPECIFY Performed By: #### L 400.0001 ####[facility] [address] [place], [address] BACTERIA 0 SEEN Normal None Seen [facility] Comment on above: Order Comment: CANDE CTOR TO SPECIFY Performed By: #### L 400.0001 ####[facility] [address] [place], [address] EPI,SQUAMOUS 0 SEEN Normal 0-5 [facility] Comment on above: Order Comment: CANDE CTOR TO SPECIFY Performed By: #### L 400.0001 ####[facility] [address] [place], [address] Mucus Ql (Urine sed) 0 SEEN Normal [facility] Comment on above: Order Comment: CANDE CTOR TO SPECIFY Performed By: #### L 400.0001 ####[facility] [address] [place], [address] RBC 0 SEEN Normal 0-5 [facility] Comment on above: Order Comment: COLLE CTOR TO SPECIFY Performed By: #### L 400.0001 ####[facility] [address] [place], [address] Calcium.ionized [Mass/Vol]on 06-30-2022 Calcium Ionized 5.22 mg/dL Normal 4.50-5.30 [facility] Comment on above: Performed By: #### 1 9123-9 #### [facility] [address] [place] [address] Calcium.ionized (Bld) [Mass/Vol] 5.22 mg/dL 4.50 - 5.30 mg/dL [facility] Interpretation and review of laboratory results Normal [facility] [employer] Comprehensive metabolic 2000 panelon 06-30-2022 Albumin [Mass/Vol] 3.6 g/dL 3.5 - 4.8 g/dL [facility] ALP [Catalytic activity/Vol] 104 U/L High [facility] ALT [Catalytic activity/Vol] 27 U/L [facility] Anion gap [Moles/Vol] 5 mmol/L Low 6 - 18 [facility] [employer] AST [Catalytic activity/Vol] 10 U/L Low [facility] Bilirubin [Mass/Vol] 0.4 mg/dL 0.3 - 1 .2 mg/dL [facility] Calcium [Mass/Vol] 9.2 mg/dL 8.9 - 10. 3 mg/dL [facility] [employer] Chloride [Moles/Vol] 100 mmol/L 98 - 10 7 mmol/L [facility] [employer] CO2 [Moles/Vol] 31 mmol/L 22 - 32 mmol/L [facility] [employer] [facility] Creatinine [Mass/Vol] 1.16 mg/dL 0.60 - 1.30 mg/dL [facility] [employer] GFR/1.73 sq M.predicted among non-blacks MDRD (S/P/Bld) [Vol rate/Area] 76 mL/min/{1.73_m2} - PINF [facility] [employer] Comment on above: Effective April 05, 2022, calculation based on the Chronic Kidney Disease Epidemiology Collaboration (CKD-EPI) equation refit without adjustment for race. Glucose [Mass/Vol] 303 mg/dL High 70 - 99 mg/dL [facility] Potassium [Moles/Vol] 4.1 mmol/L 3.6 - 5.1 mmol/L [facility] Protein [Mass/Vol] 6.2 g/dL 6.1 - 7.9 g/dL [facility] Sodium [Moles/Vol] 136 mmol/L 136 - 145 mmol/L [facility] Urea nitrogen [Mass/Vol] 20 mg/dL 8 - 20 mg/dL [facility] Urea nitrogen/Creatinine [Mass ratio] 17.2 mg/mg 12.0 - 20.0 [facility] Hemogram and platelets WO di fferential panel (Bld)on 06-30-2022 Erythrocyte distribution width (RBC) [Ratio] 13.4 % Normal 11.0-14.8 [facility] Comment on above: Performed By: #### 1 9123-9 #### [facility] [address] [place] [address] Hematocrit (Bld) [Volume fraction] 37.4 % Low 39.0-49.0 [facility] Comment on above: Performed By: #### 1 9123-9 #### [facility] [address] [place] [address] Hemoglobin (Bld) [Mass/Vol] 11.7 g/dL Low 13.5-17.5 [facility] Comment on above: Performed By: #### 1 9123-9 #### [facility] [address] [place] [address] MCH 27.8 pcg Normal 27.0-34.0 [facility] Comment on above: Performed By: #### 1 9123-9 #### [facility] [address] [place] [address] MCHC (RBC) [Mass/Vol] 31.3 g/dL Normal 30.8-35.[address] [facility] Comment on above: Performed By: #### 1 9123-9 #### [facility] [address] [place] [address] MCV (RBC) [Entitic vol] 88.8 fL Normal 80.0-97.0 [facility] Comment on above: Performed By: #### 1 9123-9 #### [facility] [address] [place] [address] Platelet mean volume (Bld) [Entitic vol] 10.0 fL Normal 6.2-12.1 [facility] Comment on above: Performed By: #### 1 9123-9 #### [facility] [address] [place] [address] Platelets (Bld) [#/Vol] 170 10*3/uL Normal 142-424 [facility] Comment on above: Performed By: #### 1 9123-9 #### [facility] [address] [place] [address] RBC (Bld) [#/Vol] 4.21 10*6/uL Low 4.30-5.70 [facility] Comment on above: Performed By: #### 1 9123-9 #### [facility] [address] [place] [address] WBC (Bld) [#/Vol] 8.1 10*3/uL Normal 4.6-10.2 [facility] Comment on above: Performed By: #### 1 9123-9 #### [facility] [address] [place] [address] Erythrocyte distribution width (RBC) [Ratio] 13.4 % 11.0 - 14.8 % [facility] Hematocrit (Bld) [Volume fraction] 37.4 % Low 39.0 - 49.0 % [facility] Hemoglobin (Bld) [Mass/Vol] 11.7 g/dL Low 13.5 - 17.5 g/dL [facility] Interpretation and review of laboratory results Abnormal [facility] MCH (RBC) [Entitic mass] 27.8 pg [facility] MCHC (RBC) [Mass/Vol] 31.3 g/dL 30.8 - 35.3 g/dL [facility] MCV (RBC) [Entitic vol] 88.[address] [facility] Platelet mean volume (Bld) [Entitic vol] 10.0 fL [facility] Platelets (Bld) [#/Vol] 170 10*3/uL [facility] RBC (Bld) [#/Vol] 4.21 10*6/uL [facility] WBC (Bld) [#/Vol] 8.1 10*3/uL [facility] Magnesiumon 06-30-2022 Magnesium [Mass/Vol] 1.5 mg/dL Low 1.8 - 2 .5 mg/dL [facility] Magnesium [Mass/Vol]on 06-30 Albumin [Mass/Vol] 3.6 g/dL Normal 3.5-4.8 [facility] Comment on above: Performed By: #### 1 9123-9 #### [facility] [address] [place] [address] ALP [Catalytic activity/Vol] 104 U/L High 32-91 [facility] Comment on above: Performed By: #### 1 9123-9 #### [facility] [address] [place] [address] ALT [Catalytic activity/Vol] 27 U/L Normal 7-52 [facility] Comment on above: Performed By: #### 1 9123-9 #### [facility] [address] [place] [address] Anion gap [Moles/Vol] 5 mmol/L Low 6-[address] [facility] Comment on above: Performed By: #### 1 9123-9 #### [facility] [address] [place] [address] AST [Catalytic activity/Vol] 10 U/L Low 15-41 [facility] Comment on above: Performed By: #### 1 9123-9 #### [facility] [address] [place] [address] Bilirubin [Mass/Vol] 0.4 mg/dL Normal 0.3-1.2 [facility] Comment on above: Performed By: #### 1 9123-9 #### [facility] [address] [place] [address] Calcium [Mass/Vol] 9.2 mg/dL Normal 8.9-10.3 [facility] Comment on above: Performed By: #### 1 9123-9 #### [facility] [address] [place] [address] Chloride [Moles/Vol] 100 mmol/L Normal 98-107 [facility] Comment on above: Performed By: #### 1 9123-9 #### [facility] [address] [place] [address] CO2 [Moles/Vol] 31 mmol/L Normal 22-32 [facility] Comment on above: Performed By: #### 1 9123-9 #### [facility] [address] [place] [address] Creatinine [Mass/Vol] 1.16 mg/dL Normal 0.60-1.[address] [facility] Comment on above: Performed By: #### 1 9123-9 #### [facility] [address] [place] [address] GFR/1.73 sq M.predicted among non-blacks MDRD (S/P/Bld) [Vol rate/Area] 76 mL/min/{1.73_m2} Normal >=60 [facility] Comment on above: Result Comment: Effe ctive April 05, 2022, calculation based on the?Chronic Kidney Disease Epidemiology Collaboration (CKD-EPI) equation refit?without adjustment for race. Performed By: #### 1 9123-9 #### [facility] [address] [place] [address] Glucose [Mass/Vol] 303 mg/dL High 70-99 [facility] Comment on above: Performed By: #### 1 9123-9 #### [facility] [address] [place] [address] Potassium [Moles/Vol] 4.1 mmol/L Normal 3.6-5.[address] [facility] Comment on above: Performed By: #### 1 9123-9 #### [facility] [address] [place] [address] Protein [Mass/Vol] 6.2 g/dL Normal 6.1-7.9 [facility] Comment on above: Performed By: #### 1 9123-9 #### [facility] [address] [place] [address] Sodium [Moles/Vol] 136 mmol/L Normal 136-145 [facility] Comment on above: Performed By: #### 1 9123-9 #### [facility] [address] [place] [address] Urea nitrogen [Mass/Vol] 20 mg/dL Normal 8-20 [facility] Comment on above: Performed By: #### 1 9123-9 #### [facility] [address] [place] [address] Urea nitrogen/Creatinine [Mass ratio] 17.2 mg/mg Normal 12.0-20.0 [facility] Comment on above: Performed By: #### 1 9123-9 #### [facility] [address] [place] [address] No Panel Informationon 06-30 Interpretation and review of laboratory results Abnormal [facility] Testosterone Free [Mass/Vol] on 06-18-2022 [facility] Testosterone, freeon 022 Testosterone Free [Mass/Vol] 2.6 pg/mL [facility] Comment on above: No reference range a vailable for males under 20 years or over 50 years. Test performed at [facility], [address] , [place] [id number] Aleyda Arriola MD, PhD - Women'S Studies Professor 25-hydroxyvitamin D3 [Mass/V ol]on 06-16-2022 Interpretation and review of laboratory results Abnormal [facility] Cobalamin (Vitamin B12) [Mas s/Vol]on 06-16-2022 Interpretation and review of laboratory results Normal [facility] Folateon 06-16-2022 Folate [Mass/Vol] 7.8 ng/mL 4.0 - PINF ng/ml [facility] Folate [Mass/Vol]on 06-16-20 Interpretation and review of laboratory results Normal [facility] Follicle stimulating hormone on 06-16-2022 Follitropin Qn 11.6 m[IU]/mL mIU/mL [facility] Comment on above: ADULT MALES: 1.3 TO 19.3 MIU/ML ADULT FEMALES: FOLLICULLAR: 3.9 TO 8.8 MIU/ML MIDCYCLE PEAK: 4.5 TO 22.5 MIU/ML LUTEAL: 1.8 TO 5.1 MIU/ML POSTMENOPAUSAL: 16.7 TO 114.0 MIU/ML Follitropin Qnon 06-16-2022 [facility] Lavender tubeon 06-16-2022 Specimen source Nom (Unsp spec) Hold for add-ons. [facility] [employer] Comment on above: Auto resulted. [facility] [employer] Onsted [Moles/Vol]on 2021 Onsted Level 0.50 mEq/L Normal 0.50-1.50 [facility] Comment on above: Performed By: #### 1 4334-7 #### [facility] [address] [place] [address] Vitamin B-12 276 pcg/mL Normal 180-914 [facility] Comment on above: Performed By: #### 1 4334-7 #### [facility] [address] [place] [address] Interpretation and review of laboratory results Normal [facility] Interpretation and review of laboratory results Normal [facility] Onsted levelon 06-16-2022 Onsted [Moles/Vol] 0.50 mmol/L [facility] Onsted [Moles/Vol] 0.50 mmol/L [facility] Luteinizing hormoneon 2021 Lutropin Qn 6.7 m[IU]/mL mIU/mL [facility] Comment on above: ADULT MALES: 1.2 TO 8.6 MIU/ML ADULT FEMALES: FOLLICULLAR: 2.1 TO 10.9 MIU/ML MIDCYCLE PEAK: 19.2 TO 103.0 MIU/ML LUTEAL: 1.2 TO 12.9 MIU/ML POSTMENOPAUSAL: 16.7 TO 114.0 MIU/ML Lutropin Qnon 06-16-2022 [facility] Testosterone Free [Mass/Vol] on 06-16-2022 Testosterone Free 2.6 pg/mL Normal [facility] Comment on above: Result Comment: No r eference range available for males under 20 years or over 50 years. Test performed at [facility], [address] [place] [address] Aleyda Arriola MD, PhD - Women'S Studies Professor Performed By: #### 1 9123-9 #### [facility] [address] [place] [address] Testosterone [Mass/Vol]on Interpretation and review of laboratory results Abnormal [facility] Testosterone 1.17 ng/mL Low 1.68 - 7.46 ng/mL [facility] Luteinizing Hormone 6.7 mIU/mL Normal [facility] Comment on above: Result Comment: ADUL T MALES: 1.2 TO 8.6 MIU/ML ADULT FEMALES: FOLLICULLAR: 2.1 TO 10.9 MIU/ML MIDCYCLE PEAK: 19.2 TO 103.0 MIU/ML LUTEAL: 1.2 TO 12.9 MIU/ML POSTMENOPAUSAL: 16.7 TO 114.0 MIU/ML Performed By: #### 2 986-8 #### [facility] [address] [place] [address] Vitamin B12on 06-16-2022 Cobalamin (Vitamin B12) [Mass/Vol] 276 pg/mL [facility] Vitamin D 25 hydroxyon 06-16 25-hydroxyvitamin D3 [Mass/Vol] 15.0 ng/mL Low 30.0 - 100.0 ng/mL [facility] Comment on above: Deficient <20 ng/mL Insufficient 20 to 30 ng/mL Sufficient 30-100 ng/mL Toxic >100 ng/mL Drugs identified Screen Nom (U)on 06-10-2022 Amphetamine Screen, Ur Not detected Normal Not Detecte d [facility] Comment on above: Order Comment: The [...] request. Performed By: #### 1 2286-1 #### [facility] [address] [place] [address] Barbiturate Screen, Ur Not detected Normal Not Detecte d [facility] Comment on above: Order Comment: The [...] request. Performed By: #### 1 2286-1 #### [facility] [address] [place] [address] Benzodiazepine Screen, Ur Not detected Normal Not Detected [facility] Comment on above: Order Comment: The [...] request. Performed By: #### 1 2286-1 #### [facility] [address] [place] [address] Cannabinoid (THC) Screen, Ur Not detected Normal Not Detected [facility] Comment on above: Order Comment: The [...] request. Performed By: #### 1 2286-1 #### [facility] [address] [place] [address] Cocaine Screen, Ur Not detected Normal Not Detected [facility] Comment on above: Order Comment: The f [...] request. Performed By: #### 1 2286-1 #### [facility] [address] [place] [address] Methadone Screen, Urine Not detected Normal Not Detect ed [facility] Comment on above: Order Comment: The [...] request. Performed By: #### 1 2286-1 #### [facility] [address] [place] [address] Opiate Screen, Ur Not detected Normal Not Detected [facility] Comment on above: Order Comment: The [...] request. Performed By: #### 1 2286-1 #### [facility] [address] [place] [address] Oxycodone Screen, Ur Not detected Normal Not Detected [facility] Comment on above: Order Comment: The [...] request. Performed By: #### 1 2286-1 #### [facility] [address] [place] [address] Amphetamines Ql (U) Not detected Not Detected [facility] Barbiturates Screen Ql (U) Not detected Not Detected [facility] Benzodiazepines Ql (U) Not detected Not Detecte d [facility] Cannabinoids Screen Ql (U) Not detected Not Detected [facility] Cocaine Ql (U) Not detected Not Detected [facility] Interpretation and review of laboratory results Normal [facility] Methadone Screen Ql (U) Not detected Not Detect ed [facility] [employer] Opiates Screen Ql (U) Not detected Not Detected [facility] oxyCODONE Ql (U) Not detected Not Detected [facility] The following detection limits are used for the urine drugs of abuse: Amphetamine 1000 ng/mL Barbiturate 200 ng/mL Benzodiazepine 200 ng/mL Cannabinoids 50 ng/mL Cocaine 300 ng/mL Methadone 300 ng/mL Opiates 300 ng/mL Oxycodone 100 ng/mL Testing is for screening purposes only and should not be used in non-medical determinations. Confirmatory testing is available on request. [employer] Glucose Auto test strip (Bld ) [Mass/Vol]on 06-10-2022 Glucose [Mass/Vol] 55 mg/dL Low 70-99 [facility] Comment on above: Performed By: #### 2 340-8 #### [facility] [address] [place] [address] Glucose [Mass/Vol] 55 mg/dL Low 70 - 99 mg/dL [facility] Interpretation and review of laboratory results Abnormal [employer] Glucose [Mass/Vol] 213 mg/dL High 70-99 [facility] Comment on above: Performed By: #### 2 340-8 #### [facility] [address] [place] [address] Glucose [Mass/Vol] 213 mg/dL High 70 - 99 mg/dL [facility] [employer] Interpretation and review of laboratory results Abnormal [facility] Urinalysis macro (dipstick) panel (U)on 06-10-2022 Bilirubin, Urine Negative Normal Negative [facility] Comment on above: Performed By: #### 2 4357-6 #### [facility] [address] [place] [address] Blood, Urine Negative Normal Negative [facility] Comment on above: Performed By: #### 2 4357-6 #### [facility] [address] [place] [address] Clarity (U) Clear Normal Clear [facility] Comment on above: Performed By: #### 2 4357-6 #### [facility] [address] [place] [address] Color (U) Yellow Normal Yellow [facility] Comment on above: Performed By: #### 2 4357-6 #### [facility] [address] [place] [address] Glucose Ql (U) Normal Normal Normal [facility] Comment on above: Performed By: #### 2 4357-6 #### [facility] [address] [facility] [place] [address] Ketones Ql (U) Negative Normal Negative [facility] Comment on above: Performed By: #### 2 4357-6 #### [facility] [address] [facility] [place] [address] Leukocytes, Urine 1+ Abnormal Negative [facility] Comment on above: Performed By: #### 2 4357-6 #### [facility] [address] [place] [address] Nitrite, Urine Negative Normal Negative [facility] Comment on above: Performed By: #### 2 4357-6 #### [facility] [address] [place] [address] pH (U) 7.0 [pH] Normal 5.0-8.0 [facility] Comment on above: Performed By: #### 2 4357-6 #### [facility] [address] [place] [address] Protein, Urine Negative Normal Negative [facility] Comment on above: Performed By: #### 2 4357-6 #### [facility] [address] [place] [address] Specific [place], Urine 1.015 Normal 1.002-1.030 [facility] Comment on above: Performed By: #### 2 4357-6 #### [facility] [address] [place] [address] Urobilinogen, Urine Normal Normal Normal [facility] Comment on above: Performed By: #### 2 4357-6 #### [facility] [address] [place] [address] Urinalysis macro (dipstick) panel (U)Ordered By: London Hicks on 06-10-2022 Bilirubin Ql (U) Negative Negative [facility] Clarity (U) Clear Clear [facility] Color (U) Yellow Yellow [facility] Glucose Ql (U) Normal Normal mg/dL [facility] Hemoglobin Ql (U) Negative Negative eryth/mcL [facility] Interpretation and review of laboratory results Abnormal [facility] Ketones (U) [Mass/Vol] Negative Negat kyra mg/dL [facility] Leukocyte esterase Test strip Ql (U) 1+ Abnormal Negative [facility] Nitrite Ql (U) Negative Negative [facility] pH (U) 7.0 [pH] 5.0 - 8.0 pH [facility] Protein (U) [Mass/Vol] Negative Negat kyra mg/dL [facility] Specific gravity (U) [Rel density] 1.015 1.002 - 1.030 [facility] Urobilinogen (U) [Mass/Vol] Normal Normal mg/dL [facility] Basic metabolic 2000 panelon 06-09-2022 Anion gap [Moles/Vol] 5 mmol/L Low 6 - 18 [employer] Calcium [Mass/Vol] 9.5 mg/dL 8.9 - 10. 3 mg/dL [facility] [employer] [employer] Chloride [Moles/Vol] 104 mmol/L 98 - 10 7 mmol/L [facility] [employer] CO2 [Moles/Vol] 29 mmol/L 22 - 32 mmol/L [facility] Creatinine [Mass/Vol] 1.14 mg/dL 0.60 - 1.30 mg/dL [facility] GFR/1.73 sq M.predicted MDRD (S/P/Bld) [Vol rate/Area] 77 mL/min/{1.73_m2} - PINF [facility] Comment on above: Effective April 05, 2022, calculation based on the Chronic Kidney Disease Epidemiology Collaboration (CKD-EPI) equation refit without adjustment for race. Glucose [Mass/Vol] 127 mg/dL High 70 - 99 mg/dL [employer] Potassium [Moles/Vol] 3.8 mmol/L 3.6 - 5.1 mmol/L [facility] [employer] Sodium [Moles/Vol] 138 mmol/L 136 - 145 mmol/L [facility] [employer] Urea nitrogen [Mass/Vol] 19 mg/dL 8 - 20 mg/dL [facility] [employer] Urea nitrogen/Creatinine [Mass ratio] 16.7 mg/mg 12.0 - 20.0 [facility] Ethanol (Bld) [Moles/Vol]on 06-09-2022 Ethanol [Mass/Vol] mg/dL NINF - 10 mg/dL [facility] Hemogram and platelets WO di fferential panel (Bld)on 06-09-2022 Basophils (Bld) [#/Vol] 0.04 10*3/uL Normal 0.00-0.20 [facility] Comment on above: Performed By: #### 2 4317-0 #### [facility] [address] [place] [address] Basophils/100 WBC (Bld) 0.4 % Normal 0.0-2.0 [facility] Comment on above: Performed By: #### 2 4317-0 #### [facility] [address] [place] [address] Eosinophils (Bld) [#/Vol] 0.31 10*3/uL Normal 0.00-0.70 [facility] Comment on above: Performed By: #### 2 4317-0 #### [facility] [address] [place] [address] Eosinophils/100 WBC (Bld) 2.8 % Normal 0.0-7.0 [facility] Comment on above: Performed By: #### 2 4317-0 #### [facility] [address] [place] [address] Erythrocyte distribution width (RBC) [Ratio] 13.7 % Normal 11.0-14.8 [facility] Comment on above: Performed By: #### 2 4317-0 #### [facility] [address] [place] [address] Hematocrit (Bld) [Volume fraction] 42.0 % Normal 39.0-49.0 [facility] Comment on above: Performed By: #### 2 4317-0 #### [facility] [address] [place] [address] Hemoglobin (Bld) [Mass/Vol] 12.6 g/dL Low 13.5-17.5 [facility] Comment on above: Performed By: #### 2 4317-0 #### [facility] [address] [place] [address] Immature granulocytes (Bld) [#/Vol] 0.03 10*3/uL Normal [facility] Comment on above: Performed By: #### 2 4317-0 #### [facility] [address] [place] [address] Immature granulocytes/100 WBC (Bld) 0.3 % Normal 0.0-1.2 [facility] Comment on above: Performed By: #### 2 4317-0 #### [facility] [address] [place] [address] Lymphocytes (Bld) [#/Vol] 2.17 10*3/uL Normal 1.00-4.80 [facility] Comment on above: Performed By: #### 2 4317-0 #### [facility] [address] [place] [address] Lymphocytes/100 WBC (Bld) 19.5 % Normal 17.9-49.6 [facility] Comment on above: Performed By: #### 2 4317-0 #### [facility] [address] [place] [address] MCH 27.7 pcg Normal 27.0-34.0 [facility] Comment on above: Performed By: #### 2 4317-0 #### [facility] [address] [place] [address] MCHC (RBC) [Mass/Vol] 30.0 g/dL Low 30.8-35.[address] [facility] Comment on above: Performed By: #### 2 4317-0 #### [facility] [address] [place] [address] MCV (RBC) [Entitic vol] 92.3 fL Normal 80.0-97.0 [facility] Comment on above: Performed By: #### 2 4317-0 #### [facility] [address] [place] [address] Monocytes (Bld) [#/Vol] 1.02 10*3/uL High 0.00-0.90 [facility] Comment on above: Performed By: #### 2 4317-0 #### [facility] [address] [place] [address] Monocytes/100 WBC (Bld) 9.2 % Normal 0.0-12.0 [facility] Comment on above: Performed By: #### 2 4317-0 #### [facility] [address] [place] [address] Neutrophils Absolute 7.53 K/mcL Normal 1.80-7.70 [facility] Comment on above: Performed By: #### 2 4317-0 #### [facility] [address] [place] [address] Neutrophils/100 WBC (Bld) 67.8 % Normal 38.1-75.5 [facility] Comment on above: Performed By: #### 2 4317-0 #### [facility] [address] [place] [address] Platelet mean volume (Bld) [Entitic vol] 9.8 fL Normal 6.2-12.1 [facility] Comment on above: Performed By: #### 2 4317-0 #### [facility] [address] [place] [address] Platelets (Bld) [#/Vol] 211 10*3/uL Normal 142-424 [facility] Comment on above: Performed By: #### 2 4317-0 #### [facility] [address] [place] [address] RBC (Bld) [#/Vol] 4.55 10*6/uL Normal 4.30-5.70 [facility] Comment on above: Performed By: #### 2 4317-0 #### [facility] [address] [place] [address] WBC (Bld) [#/Vol] 11.1 10*3/uL High 4.6-10.2 [facility] Comment on above: Performed By: #### 2 4317-0 #### [facility] [address] [place] [address] Basophils (Bld) [#/Vol] 0.04 10*3/uL [facility] [...] MCV (RBC) [Entitic vol] 92.3 fL [facility] Monocytes (Bld) [#/Vol] 1.02 10*3/uL High [facility] Monocytes/100 WBC (Bld) 9.2 % 0.0 - 12.0 % [facility] Neutrophils (Bld) [#/Vol] 7.53 10*3/uL [facility] Neutrophils/100 WBC (Bld) 67.8 % 38.1 - 75.5 % [facility] Platelet mean volume (Bld) [Entitic vol] 9.8 fL [facility] Platelets (Bld) [#/Vol] 211 10*3/uL [facility] RBC (Bld) [#/Vol] 4.55 10*6/uL [facility] WBC (Bld) [#/Vol] 11.1 10*3/uL High [facility] Hepatic function 2000 panelo n 06-09-2022 Albumin [Mass/Vol] 4.2 g/dL 3.5 - 4.8 g/dL [facility] ALP [Catalytic activity/Vol] 90 U/L [facility] ALT [Catalytic activity/Vol] 21 U/L [facility] AST [Catalytic activity/Vol] 14 U/L Low [facility] Bilirubin [Mass/Vol] 0.3 mg/dL 0.3 - 1 .2 mg/dL [facility] Bilirubin.direct [Mass/Vol] 0.1 mg/dL NINF - 0.5 mg/dL [facility] Bilirubin.indirect [Mass/Vol] 0.2 mg/dL 0.0 - 1.0 mg/dL [facility] Protein [Mass/Vol] 7.0 g/dL 6.1 - 7.9 g/dL [facility] Lipaseon 06-09-2022 Lipase [Catalytic activity/Vol] 18 U/L [facility] Onsted [Moles/Vol]on 2021 Interpretation and review of laboratory results Normal [facility] [place] levelon 06-09-2022 Onsted [Moles/Vol] 1.50 mmol/L [facility] Magnesiumon 06-09-2022 Magnesium [Mass/Vol] 1.8 mg/dL 1.8 - 2 .5 mg/dL [facility] Magnesium [Mass/Vol]on 06-09 [place] Level 1.50 mEq/L Normal 0.50-1.50 [facility] Comment on above: Performed By: #### 1 9123-9 #### [facility] [address] [place] [address] No Panel Informationon 06-09 Interpretation and review of laboratory results Abnormal [facility] Interpretation and review of laboratory results Normal [facility] Red top grass IgE Qn (S)on 1 08-10-2021 Specimen source Nom (Unsp spec) Hold for add-ons. [facility] Comment on above: Auto resulted. [facility] SARS-CoV-2 (COVID-19) RNA NA A+probe Ql (Resp)on 06-09-2022 Interpretation and review of laboratory results Normal [facility] SARS-CoV-2 (COVID-19) RdRp gene DALIA+probe Ql (Resp) Not detected Not Detected [facility] SARS-CoV-2 RNA Resp Ql DALIA+p robeon 06-09-2022 SARS-CoV-2 (COVID-19) RNA DALIA+probe Ql (Resp) Not detected Normal Not Detected [facility] Comment on above: Performed By: #### 9 4500-6 #### [facility] [address] [place] [address] TSH Qnon 06-09-2022 Interpretation and review of laboratory results Normal [facility] Thyroid stimulating hormoneo n 06-09-2022 TSH Qn 0.98 m[IU]/L [facility] POCT GLUCOSEon 05-18-2022 Glucose [Mass/Vol] 120 mg/dL Normal [facility] Comment on above: Performed By: #### G [facility] #### [place] [address] [place] [address] [facility] POCT glucoseon 05-18-2022 Yeast Wet prep Ql (Vag fld) 120 [facility] SARS-COV-2, PCRon 05-18-2022 SARS-CoV-2 (COVID-19) RNA [...] during the acute phase of infection. Normal [facility] Comment on above: Performed By: #### L [id number], [id number] #### [address] SARS-CoV-2 (COVID-19) RNA DALIA+probe Ql (Resp) Negative Negative [facility] Comment on above: Negative results do [...] Interpretation and review of laboratory results Normal [facility] POCT GLUCOSEon 05-17-2022 Glucose [Mass/Vol] 197 mg/dL Normal [facility] Comment on above: Performed By: #### L [id number], [id number], [id number] #### [address] POCT glucoseon 05-17-2022 Yeast Wet prep Ql (Vag fld) 197 [facility] POCT GLUCOSEon 05-16-2022 Glucose [Mass/Vol] 160 mg/dL Normal [facility] Comment on above: Performed By: #### L [id number], [id number], [id number] #### [address] POCT glucoseon 05-16-2022 Yeast Wet prep Ql (Vag fld) 160 [facility] HbA1c (Bld) [Mass fraction]o n 05-15-2022 Interpretation and review of laboratory results Normal [facility] Hemoglobin A1con 05-15-2022 HbA1c (Bld) [Mass fraction] 5.7 % NINF - 6.0 % [facility] Comment on above: Reference Interval f or %A1c: %A1c (NGSP) Interpretation <6.0% Non-Diabetic Range >6.5% Action Suggested Lipid panelon 05-15-2022 Cholesterol [Mass/Vol] 132 mg/dL NINF - 200 mg/dL [facility] Cholesterol in HDL [Mass/Vol] 45.7 mg/dL 40.0 - 59.9 mg/dL [facility] Cholesterol in LDL [Mass/Vol] 56.3 mg/dL NINF - 100 mg/dL [facility] Comment on above: LDL REFERENCE RANGE: Optimal <100 mg/dl Near Optimal 100-129 mg/dL Borderline High 130-159 mg/dL High 160-189 mg/dL Very High >=190 mg/dL Cholesterol in VLDL [Mass/Vol] 30 [facility] mg/dL [facility] Interpretation and review of laboratory results Normal [facility] Triglyceride [Mass/Vol] 150 mg/dL NINF - 150 mg/dL [facility] Syphilis Treponema Antibodyo n 05-15-2022 T. pallidum Ab IA Ql (S) Non-Reactive Nonreactive [facility] T. pallidum Ab IA Ql (S)on 07-15-2021 Interpretation and review of laboratory results Normal [facility] Thyroid Cascadeon 05-15-2022 Interpretation and review of laboratory results Normal [facility] Tryptophan/Creatinine (U) [Ratio] 0.615 [facility] BASIC METABOLIC PANELon 04-28 Anion gap [Moles/Vol] 5 mmol/L Low 8-12 [facility] Comment on above: Performed By: #### 4 [id number], [id number], [id number] #### [address] Calcium [Mass/Vol] 9.3 mg/dL Normal 8.4-10.4 [facility] Comment on above: Performed By: #### 4 [id number], [id number], [id number] #### [address] [place] [address] [place] Chloride [Moles/Vol] 105 mmol/L Normal 96-109 [facility] [employer] [facility] Comment on above: Performed By: #### 4 [id number], [id number], [id number] #### [address] [place], [place] [address] CO2 [Moles/Vol] 28.5 mmol/L Normal 22-30 [facility] Comment on above: Performed By: #### 4 [id number], [id number], [id number] #### [place] Creatinine [Mass/Vol] 1.10 mg/dL Normal 0.66-1.25 [facility] [employer] [facility] Comment on above: Performed By: #### 4 [id number], [id number], [id number] #### [place] GLOMERULAR FILTRATION RATE ML/MIN/1.73 SQ M.PREDICTED 80.8 mL/min/1.73m*2 Normal >=60.0 [facility] Comment on above: Result Comment: eGFR [...] Kidney Int Suppl.2013;3:1-150 Performed By: #### 4 [id number], [id number], [id number] #### [address] [place] [address] [facility] Glucose [Mass/Vol] 92.5 mg/dL Normal 65-100 [facility] [employer] [facility] Comment on above: Performed By: #### 4 [id number], [id number], [id number] #### [address] [place] [address] [facility] Potassium [Moles/Vol] 4.2 mmol/L Normal 3.6-5.1 [facility] [employer] Comment on above: Performed By: #### 4 [id number], [id number], [id number] #### [address] [place] [address] [facility] Sodium [Moles/Vol] 138.1 mmol/L Normal 135-147 [facility] Comment on above: Performed By: #### 4 [id number], [id number], [id number] #### [address] [place] [address] [facility] Urea nitrogen [Mass/Vol] 20.7 mg/dL Normal 8-26 [facility] Comment on above: Performed By: #### 4 [id number], [id number], [id number] #### [address] [place] [address] [facility] Basic metabolic panel aka Ch em 805-14-2022 Anion gap [Moles/Vol] 5 mmol/L Low 8 - 12 mmol/L [facility] Calcium [Mass/Vol] 9.3 mg/dL 8.4 - 10. 4 mg/dL [facility] Calcium hydrogen phosphate dihydrate crystals LM Ql (Urine sed) 20.7 mg/dL 8 - 26 mg/dL [facility] Chloride [Moles/Vol] 105 mmol/L 96 - 10 9 mmol/L [facility] CMV IgM IF Ql 28.5 mmol/L 22 - 30 mmol/L [facility] Creatinine [Mass/Vol] 1.10 mg/dL 0.66 - 1.25 mg/dL [facility] GFR/1.73 sq M.predicted MDRD (S/P/Bld) [Vol rate/Area] 80.8 mL/min/{1.73_m2} - PINF [facility] Comment on above: eGFR calculation bas [...] [Mass/Vol] 92.5 mg/dL 65 - 100 mg/dL [facility] Interpretation and review of laboratory results Abnormal [facility] Potassium [Moles/Vol] 4.2 mmol/L 3.6 - 5.1 mmol/L [facility] Sodium [Moles/Vol] 138.1 mmol/L 135 - 147 mmol/L [facility] CARBAMAZEPINE LEVEL, TOTALon 05-14-2022 CARBAMAZEPINE 6.4 ug/mL Normal 4.0-12.0 [facility] Comment on above: Performed By: #### 4 [id number], [id number], [id number] #### [address] CBC AND DIFFERENTIALon 05-14 ABSOLUTE BASOPHIL 0.1 x10*3/uL Normal 0.0-0.1 [facility] Comment on above: Performed By: #### 4 [id number] #### [address] ABSOLUTE EOSINOPHIL 0.3 x10*3/uL Normal 0.1-0.3 [facility] Comment on above: Performed By: #### 4 [id number] #### [address] ABSOLUTE IMMATURE GRANULOCYTES 0.0 x10*3/uL Normal 0.0-0.1 [facility] Comment on above: Performed By: #### 4 [id number] #### [address] ABSOLUTE LYMPH 2.3 x10*3/uL Normal 1.2-3.3 [facility] Comment on above: Performed By: #### 4 [id number] #### [address] ABSOLUTE MONO 0.7 x10*3/uL High 0.2-0.6 [facility] Comment on above: Performed By: #### 4 [id number] #### [address] ABSOLUTE NEUTROPHIL 5.9 x10*3/uL Normal 2.4-6.6 [facility] Comment on above: Performed By: #### 4 [id number] #### [address] Basophils/100 WBC (Bld) 0.5 % Normal [facility] Comment on above: Performed By: #### 4 [id number] #### [address] Eosinophils/100 WBC (Bld) 3.5 % Normal [facility] Comment on above: Performed By: #### 4 [id number] #### [address] Erythrocyte distribution width (RBC) [Ratio] 13.8 % Normal 11.5-14.5 [facility] Comment on above: Performed By: #### 4 [id number] #### [address] Hematocrit (Bld) [Volume fraction] 39.4 % Normal 37.7-51.1 [facility] Comment on above: Performed By: #### 4 [id number] #### [address] Hemoglobin (Bld) [Mass/Vol] 12.2 g/dL Low 12.8-17.7 [facility] Comment on above: Performed By: #### 4 [id number] #### [address] Immature granulocytes/100 WBC (Bld) 0.2 % [facility] Comment on above: Performed By: #### 4 [id number] #### [address] Lymphocytes/100 WBC (Bld) 24.4 % Normal [facility] Comment on above: Performed By: #### 4 [id number] #### [address] MCH (RBC) [Entitic mass] 28.6 pg Normal 27.0-34.2 [facility] Comment on above: Performed By: #### 4 [id number] #### [address] MCHC (RBC) [Mass/Vol] 31.0 g/dL Low 31.4-36.2 [facility] Comment on above: Performed By: #### 4 [id number] #### [address] MCV (RBC) [Entitic vol] 92.5 fL Normal 80.6-[address] [facility] Comment on above: Performed By: #### 4 [id number] #### [address] Monocytes/100 WBC (Bld) 7.5 % Normal [facility] Comment on above: Performed By: #### 4 [id number] #### [address] Neutrophils/100 WBC (Bld) 63.9 % Normal [facility] Comment on above: Performed By: #### 4 [id number] #### [address] NUCLEATED RED BLOOD CELLS AUTO 0.0 % Normal 0.0-1.0 [facility] Comment on above: Performed By: #### 4 [id number] #### [address] PLATELET COUNT 192 x10*3/uL Normal 150-400 [facility] Comment on above: Performed By: #### 4 [id number] #### [address] RED BLOOD CELL COUNT 4.26 x10*6/uL Normal 3.70-5.70 [facility] Comment on above: Performed By: #### 4 [id number] #### [address] WHITE BLOOD CELLS 9.3 x10*3/uL Normal 4.3-10.3 [facility] Comment on above: Performed By: #### 4 [id number] #### [address] CBC with DifferentialOrdered By: Background Lab on 05-14-2022 Absolute Immature Granulocytes 0.0 [facility] Age [Time] 92.5 fL 80.6 - 99 fL [facility] Age [Time] 28.6 pg 27.0 - 34.2 pg [facility] Age [Time] 31.0 g/dL Low 31.4 - 36.2 g/dL [facility] B. burgdorferi IgM IB Ql (CSF) 24.4 % [facility] [employer] Basophils (Bld) [#/Vol] 0.1 10*3/uL [facility] [employer] Basophils/100 WBC (Body fld) 0.5 % [facility] Eosinophils (Bld) [#/Vol] 2.3 10*3/uL [facility] Eosinophils (Bld) [#/Vol] 0.7 10*3/uL High [facility] Eosinophils (Bld) [#/Vol] 0.3 10*3/uL [facility] Eosinophils/100 WBC (Bld) 3.5 % [facility] Erythrocyte distribution width (RBC) [Ratio] 13.8 % 11.5 - 14.5 % [facility] Hematocrit (Bld) [Volume fraction] 39.4 % 37.7 - 51.1 % [facility] Hexanoylglycine (U) [Moles/Vol] 12.2 g/dL Low 12.8 - 17.7 g/dL [facility] Immature granulocytes/100 WBC (Bld) 0.2 % [facility] Interpretation and review of laboratory results Abnormal [facility] Monocytes/100 WBC (Bld) 7.5 % [facility] Neurotensin (P) [Mass/Vol] 63.9 % [facility] Neutrophils (Bld) [#/Vol] 5.9 10*3/uL [facility] Nucleated RBC/100 WBC (Bld) [Ratio] 0.0 % 0.0 - 1.0 % [facility] Platelets (Bld) [#/Vol] 192 10*3/uL [facility] RBC (Bld) [#/Vol] 4.26 10*6/uL [facility] WBC LM Ql (Sput) 9.3 [facility] Carbamazepine level, totalon 05-14-2022 carBAMazepine 10,11-Epoxide [Mass/Vol] 6.4 ug/mL 4.0 - 12.0 ug/mL [facility] Interpretation and review of laboratory results Normal [facility] HEMOGLOBIN A1Con 05-14-2022 HbA1c (Bld) [Mass fraction] 5.7 % Normal <=6.0 [facility] Comment on above: Result Comment: Refe rence Interval for %A1c: %A1c (NGSP) Interpretation <6.0% Non-Diabetic Range >6.5% Action Suggested Performed By: #### 4 [id number] #### [facility] [address] [place] [place] [address] LIPID PANELon 05-14-2022 Cholesterol [Mass/Vol] 132 mg/dL Normal <=200 [facility] Comment on above: Performed By: #### 4 [id number], [id number], [id number] #### [facility] [address] [place] [address] Cholesterol in HDL [Mass/Vol] 45.7 mg/dL Normal 40.0-59.9 [facility] Comment on above: Performed By: #### 4 [id number], [id number], [id number] #### [address] LDL CHOLESTEROL CALCULATED 56.3 mg/dL Normal <=100 [facility] Comment on above: Result Comment: LDL REFERENCE RANGE: Optimal <100 mg/dl Near Optimal 100-129 mg/dL Borderline High 130-159 mg/dL High 160-189 mg/dL Very High >=190 mg/dL Performed By: #### 4 [id number], [id number], [id number] #### [facility] [address] [place] [address] Triglyceride [Mass/Vol] 150 mg/dL Normal <=[address] [facility] Comment on above: Performed By: #### 4 [id number], [id number], [id number] #### [facility] [address] [place] [address] VLDL CHOLESTEROL MAGALY 30 mg/dL Normal <=41 [facility] Comment on above: Performed By: #### 4 [id number], [id number], [id number] #### [facility] [address] [place] [address] LITHIUM LEVELon 05-14-2022 LITHIUM LEVEL 0.5 mmol/L Low 0.6-1.2 [facility] Comment on above: Performed By: #### L [id number], [id number], [id number] #### [facility] [address] [place] [address] Onsted levelon 05-14-2022 Interpretation and review of laboratory results Abnormal [facility] Onsted [Moles/Vol] 0.5 mmol/L Low 0.6 - 1. 2 mmol/L [facility] No Panel Informationon 05-14 Extra Tube Hold for add-ons. [facility] SYPHILIS TREPONEMA ANTIBODYo n 05-14-2022 SYPHILIS TREPONEMA ANTIBODY Non-Reactive Normal Nonreactive [facility] Comment on above: Performed By: #### L [id number], [id number], [id number] #### [address] THYROID CASCADE PANELon 11-1 TSH CASCADE 0.615 uIU/mL Normal 0.465-4.680 [facility] Comment on above: Performed By: #### L [id number], [id number], [id number] #### [address] TOXICOLOGY SCREEN, URINEon 1 07-14-2021 AMPHETAMINE/METH Not detected Normal Not Detecte d (Cutoff <1000 ng/mL) [facility] Comment on above: Order Comment: Notes :1. Screening results should be considered presumptive unless the presence of the analyte has been confirmed by a reference lab2. All drug groups are analyzed on urine specimens Performed By: #### L [id number], [id number], [id number] #### [address] BARBITURATES Not detected Normal Not Detected (Cutoff <200 ng/mL) [facility] Comment on above: Order Comment: Notes :1. Screening results should be considered presumptive unless the presence of the analyte has been confirmed by a reference lab2. All drug groups are analyzed on urine specimens Performed By: #### L [id number], [id number], [id number] #### [address] BENZODIAZEPINES Not detected Normal Not Detected (Cutoff <200 ng/mL) [facility] Comment on above: Order Comment: Notes :1. Screening results should be considered presumptive unless the presence of the analyte has been confirmed by a reference lab2. All drug groups are analyzed on urine specimens Performed By: #### L [id number], [id number], [id number] #### [facility] [address] [place] [address] Cocaine Ql (U) Not detected Normal Not Detected (Cutoff <300 ng/mL) [facility] Comment on above: Order Comment: Notes :1. Screening results should be considered presumptive unless the presence of the analyte has been confirmed by a reference lab2. All drug groups are analyzed on urine specimens Performed By: #### L [id number], [id number], [id number] #### [facility] [address] [place] [address] FENTANYL Not detected Normal Not Detected (Cutoff 1.0 ng/mL) [facility] Comment on above: Order Comment: Notes :1. Screening results should be considered presumptive unless the presence of the analyte has been confirmed by a reference lab2. All drug groups are analyzed on urine specimens Performed By: #### L [id number], [id number], [id number] #### [address] MARIJUANA/THC Not detected Normal Not Detected (Cutoff <50 ng/mL) [facility] Comment on above: Order Comment: Notes :1. Screening results should be considered presumptive unless the presence of the analyte has been confirmed by a reference lab2. All drug groups are analyzed on urine specimens Performed By: #### L [id number], [id number], [id number] #### [address] OPIATES Not detected Normal Not Detected (Cutoff <300 ng/mL) [facility] Comment on above: Order Comment: Notes :1. Screening results should be considered presumptive unless the presence of the analyte has been confirmed by a reference lab2. All drug groups are analyzed on urine specimens Performed By: #### L [id number], [id number], [id number] #### [address] PCP Not detected Normal Not Detected (Cutoff <25 ng/mL) [facility] Comment on above: Order Comment: Notes :1. Screening results should be considered presumptive unless the presence of the analyte has been confirmed by a reference lab2. All drug groups are analyzed on urine specimens Performed By: #### L [id number], [id number], [id number] #### [address] Toxicology screen, urineon 07-14-2021 Amphetamines Ql (U) Not detected Not Dete cted (Cutoff <1000 ng/mL) [facility] Barbiturates [Mass/Vol] Not detected Not Detected (Cutoff <200 ng/mL) [facility] Benzodiazepines Screen [Mass/Vol] Not detected Not Detected (Cutoff <200 ng/mL) [facility] Cannabinoids tested Screen Nom (U) Not detected Not Detected (Cutoff <50 ng/mL) [facility] CMV IgM IF Ql Not detected Not Detected (Cutoff <300 ng/mL) [facility] Felbamate [Mass/Vol] Not detected Not Det ected (Cutoff 1.0 ng/mL) [facility] Interpretation and review of laboratory results Normal [facility] Opiates tested Screen Nom (U) Not detected Not Detected (Cutoff <300 ng/mL) [facility] Phencyclidine (U) [Mass/Vol] Not detected Not Detected (Cutoff <25 ng/mL) [facility] Notes: 1. Screening results should be considered presumptive unless the presence of the analyte has been confirmed by a reference lab 2. All drug groups are analyzed on urine specimens [facility] URINALYSIS WITH REFLEX CULTU REon 05-14-2022 Appearance (U) Clear Normal [facility] Comment on above: Performed By: #### 4 [id number] #### [address] BILIRUBIN UA Negative Normal Negative [facility] Comment on above: Performed By: #### 4 [id number] #### [address] Color (U) Yellow Normal [facility] Comment on above: Performed By: #### 4 [id number] #### [address] Glucose Ql (U) Negative Normal Negative [facility] Comment on above: Performed By: #### 4 [id number] #### [address] Ketones Ql (U) Negative Normal Negative [facility] Comment on above: Performed By: #### 4 [id number] #### [address] LEUKOESTERASE Negative Normal Negative [facility] Comment on above: Performed By: #### 4 [id number] #### [place] [address] [place] Nitrite Ql (U) Negative Normal Negative [facility] Comment on above: Performed By: #### 4 [id number] #### [address] OCCULT BLD Negative Normal Negative [facility] Comment on above: Performed By: #### 4 [id number] #### [address] PH, URINE 7.0 Normal [facility] Comment on above: Performed By: #### 4 [id number] #### [address] Protein Ql (U) Negative Normal Negative [facility] Comment on above: Performed By: #### 4 [id number] #### [address] RBC LM.HPF (Urine sed) [#/Area] /[HPF] Normal <=5 [facility] Comment on above: Performed By: #### 4 [id number] #### [address] SPECIFIC GRAVITY, URINE 1.[address] [facility] Comment on above: Performed By: #### 4 [id number] #### [address] UROBILINOGEN UA Negative Normal <2.0 [facility] Comment on above: Performed By: #### 4 [id number] #### [address] WBC LM.HPF (Urine sed) [#/Area] 3 /[HPF] Normal <=5 [facility] Comment on above: Performed By: #### 4 [id number] #### [address] Urinalysis complete W Reflex Culture panel (U)on 05-14-2022 Acetone [Mass/Vol] Negative Negative [facility] [facility] Appearance (Body fld) Clear [facility] Bilirubin Ql (U) Negative Negative [facility] Color (Stone) Yellow [facility] G6PD (RBC) [Catalytic activity/Vol] Negative Negative [facility] Hemoglobin Ql (U) NINF [facility] Hemoglobin.gastrointest inal (Stl) [Mass/Mass] Negative Negative [facility] Leukocyte esterase Test strip Ql (U) Negative Negative [facility] Nitrite Test strip (U) [Mass/Vol] Negative Negative [facility] pH (Rhina fld) 7.0 [facility] Protein (U) [Mass/Vol] Negative Negative [facility] Specific gravity (U) [Rel density] 1.[address] [facility] Urobilinogen Qn (U) Negative NINF - 2.0 [facility] WBC (U) [#/Vol] 3 /uL NINF [facility] US DUPLEX VENOUS LEGS BILATE Shayy 05-05-2022 US DUPLEX VENOUS LEGS BILATERAL Patient Info Name: RIGO GARCIA Age: 52 years : 1970 Gender: Male Exam Date: 05/04/2022 8:32 PM Patient Status: Emergency Chemistry Account Manager: Holly Abad RVT, RDCS Attending Physician: DAVID JI Indications R22.43 - Localized swelling, mass and lump, lower limb, bilateral Procedure Description 87512 Duplex examination using B-mode, color and spectral Doppler of extremity veins including responses to compression and other maneuvers; complete bilateral study. Conclusions * No evidence of deep or superficial vein thrombosis in the right or left lower extremities. . Report Signatures Finalized by Brittani Heredia DO, RVT, RPVI FSSHANNON on 05/05/2022 09:30 AM Normal [facility] US DUPLEX VENOUS LEGS BILATE Shayy 05-04-2022 US DUPLEX VENOUS LEGS BILATERAL Patient Info Name: RIGO GARCIA Age: 52 years : 1970 Gender: Male Exam Date: 05/04/2022 8:32 PM Patient Status: Emergency Chemistry Account Manager: Holly Abad RVT, RDCS Attending Physician: DAVID JI Indications R22.43 - Localized swelling, mass and lump, lower limb, bilateral Procedure Description 36606 Duplex examination using B-mode, color and spectral Doppler of extremity veins including responses to compression and other maneuvers; complete bilateral study. Conclusions * No evidence of deep or superficial vein thrombosis in the right or left lower extremities. . Report Signatures Finalized by Brittani Heredia DO, RVT, LAURA, FSVM on 05/05/2022 09:30 AM Dictated by: BRITTANI HEREDIA on WedMay 05, 2022 9:31:05 AM EST Transcribed by: BRITTANI HEREDIA on WedMay 05, 2022 9:31:05 AM EST Finalized by: BRITTANI HEREDIA on Tue May 05, 2022 9:31:05 AM EST Normal [facility] XR CHEST PA/APon 05-04-2022 XR CHEST [...] cardiopulmonary process based on AP image alone. [employer] Workstation ID: [id number] Dictated by: LAURA DONAHUE on WedMay 04, 2022 9:11:28 PM EST Transcribed by: ANITA TUCKER on WedMay 04, 2022 9:13:44 PM EST Finalized by: LAURA DONAHUE on WedMay 04, 2022 10:19:49 PM EST Normal [facility] Comment on above: Order Comment: Injur y/Trauma or Illness?:Illness/Other How long have you had these symptoms (acute/chronic)?:Acute Reason for exam?:cough History of cancer?:n Surgeries, chemotherapy, or radiation?:n Type of Exam?:Initial Additional signs and symptoms?: COVID-19, MOLECULARon 2021 SARS-CoV-2 (COVID-19) RNA DALIA+probe Ql (Unsp spec) Not detected Normal Not Detected [facility] Comment on above: Order Comment: This [...] at the following links: For Healthcare Providers: https://www.fda.gov/media/449630/download For Patients: https://www.fda.gov/media/050180/download Performed By: #### L [id number] #### [facility] [address] [address] Jamar Remy M.D. [id number] XR MODIFIED BARIUM SWALLOWon 02-19-2022 XR MODIFIED BARIUM SWALLOW EXAMINATION: XR MODIFIED BARIUM SWALLOW HISTORY: dysphagia Dx: R41.82 (Altered mental status, unspecified altered mental status type) Injury/Trauma or Illness?:Illness/Oth er How long have you had these symptoms (acute/chronic)?:Acu te CONTRAST: BARIUM SULFATE 40 % (W/V), 30% [...] WedFeb 20, 2022 6:54:23 AM EDT Normal [facility] Comment on above: Order Comment: Injur y/Trauma or Illness?:Illness/Other How long have you had these symptoms (acute/chronic)?:Acute Reason for exam?:dysphagia Type of Exam?:Ongoing Additional signs and symptoms?: Fluoro time in minutes:1.7 Fluoro dose in mGy?:8.54 COVID-19, MOLECULARon 2021 SARS-CoV-2 (COVID-19) RNA DALIA+probe Ql (Unsp spec) Not detected Normal Not Detected [facility] Comment on above: Order Comment: This [...] at the following links: For Healthcare Providers: https://www.fda.gov/media/901719/download For Patients: https://www.fda.gov/media/702945/download Performed By: #### L [id number] #### [facility] [address] [place] [address] Jamar Remy M.D. [id number] XR FOR MRI CLEARANCEon 02-17 XR FOR [...] identified. Workstation ID: [id number] Dictated by: JOSE MEYESR on WedFeb 17, 2022 9:54:36 AM EDT Transcribed by: JOSE MEYERS on WedFeb 17, 2022 9:54:36 AM EDT Finalized by: JOSE MEYERS on WedFeb 17, 2022 9:54:36 AM EDT Normal [facility] Comment on above: Order Comment: MRI [...] No acute findings. No hemorrhage. No mass. [facility] Workstation ID: [id number] Dictated by: MOOSE OROZCO on WedFeb 16, 2022 3:34:33 PM EDT Transcribed by: DEVYN MEYERS on WedFeb 16, 2022 3:46:44 PM EDT Finalized by: MOOSE OROZCO on WedFeb 16, 2022 10:32:15 PM EDT Normal [facility] Comment on above: Order Comment: Injur [...] clear. Central intracranial flow voids of the [place] are visualized, implying that the vessels are patent. Material filling the left maxillary sinus, compatible with sinusitis. IMPRESSION: 1. Negative for acute infarct. No appreciable acute intracranial process. 2. 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 This has aged as expected compared to the prior MRI. [employer] Workstation ID: [id number] Dictated by: MOSHE TAMEZ on WedFeb 17, 2022 1:57:52 PM EDT Transcribed by: ELIU FANG on WedFeb 17, 2022 2:47:57 PM EDT Finalized by: MOSHE TAMEZ on WedFeb 17, 2022 2:59:50 PM EDT Normal [facility] Comment on above: Order Comment: Injur [...] on WedFeb 16, 2022 4:07:11 PM EDT Normal [facility] Comment on above: Order Comment: Injur y/Trauma or Illness?:Illness/Other How long have you had these symptoms (acute/chronic)?:Acute Reason for exam?:ams History of cancer?:n Surgeries, chemotherapy, or radiation?:n Type of Exam?:Initial Additional signs and symptoms?: Basic metabolic 2000 panelon 02-11-2022 Anion gap [Moles/Vol] 10 mmol/L Normal 6-18 [facility] Comment on above: Performed By: #### 2 4321-2 #### [facility] [address] [place] [address] Calcium [Mass/Vol] 10.4 mg/dL High 8.9-10.3 [facility] Comment on above: Performed By: #### 2 4321-2 #### [facility] ([facility] [address] [place] [address] Chloride [Moles/Vol] 108 mmol/L High 98-107 [facility] Comment on above: Performed By: #### 2 4321-2 #### [facility] [address] [place] [address] CO2 [Moles/Vol] 27 mmol/L Normal 22-32 [facility] Comment on above: Performed By: #### 2 4321-2 #### [facility] [address] [place] [address] Creatinine [Mass/Vol] 1.28 mg/dL Normal 0.60-1.30 [facility] Comment on above: Performed By: #### 2 4321-2 #### [facility] [address] [place] [address] GFR/1.73 sq M.predicted among non-blacks MDRD (S/P/Bld) [Vol rate/Area] 64 mL/min/{1.73_m2} Normal >=60 [facility] Comment on above: Performed By: #### 2 4321-2 #### [facility] [address] [place] [address] Glucose [Mass/Vol] 165 mg/dL High 70-99 [facility] Comment on above: Performed By: #### 2 4321-2 #### [facility] [address] [place] [address] Potassium [Moles/Vol] 4.1 mmol/L Normal 3.6-5.1 [facility] Comment on above: Performed By: #### 2 4321-2 #### [facility] [address] [place] [address] Sodium [Moles/Vol] 145 mmol/L Normal 136-145 [facility] Comment on above: Performed By: #### 2 4321-2 #### [facility] [address] [place] [address] Urea nitrogen [Mass/Vol] 19 mg/dL Normal 8-20 [facility] Comment on above: Performed By: #### 2 4321-2 #### [facility] [address] [place] [address] Urea nitrogen/Creatinine [Mass ratio] 14.8 mg/mg Normal 12.0-20.0 [facility] Comment on above: Performed By: #### 2 4321-2 #### [facility] [address] [place] [address] Hemogram and platelets WO di fferential panel (Bld)on 02-11-2022 Basophils (Bld) [#/Vol] 0.10 10*3/uL Normal 0.00-0.20 [facility] Comment on above: Performed By: #### 2 4317-0 #### [facility] [address] [place] [address]683 Basophils/100 WBC (Bld) 0.5 % Normal 0.0-2.[address] [facility] Comment on above: Performed By: #### 2 4317-0 #### [facility] [address] [place] [address] Eosinophils (Bld) [#/Vol] 0.20 10*3/uL Normal 0.00-0.70 [facility] Comment on above: Performed By: #### 2 4317-0 #### [facility] [address] [place] [address] Eosinophils/100 WBC (Bld) 1.9 % Normal 0.0-7.0 [facility] Comment on above: Performed By: #### 2 7-0 #### [facility] [address] [place] [address] Erythrocyte distribution width (RBC) [Ratio] 14.5 % Normal 11.0-14.8 [facility] Comment on above: Performed By: #### 2 4317-0 #### [facility] [address] [place] [address] Hematocrit (Bld) [Volume fraction] 49.6 % High 39.0-49.0 [facility] Comment on above: Performed By: #### 2 4317-0 #### [facility] [address] [place] [address] Hemoglobin (Bld) [Mass/Vol] 15.6 g/dL Normal 13.5-17.5 [facility] Comment on above: Performed By: #### 2 4317-0 #### [facility] [address] [place] [address]783 Lymphocytes (Bld) [#/Vol] 1.50 10*3/uL Normal 1.00-4.80 [facility] Comment on above: Performed By: #### 2 4317-0 #### [facility] [address] [place] [address] Lymphocytes/100 WBC (Bld) 13.1 % Low 22.0-44.0 [facility] Comment on above: Performed By: #### 2 4317-0 #### [facility] [address] [place] [address] 09084 MCH 29.0 pcg Normal 27.0-34.0 [facility] Comment on above: Performed By: #### 2 4317-0 #### [facility] [address] [place] [address] 38971 MCHC (RBC) [Mass/Vol] 31.4 g/dL Low 32.0-36.0 [facility] Comment on above: Performed By: #### 2 7-0 #### [facility] [address] [place] [address] 20605 MCV (RBC) [Entitic vol] 92.5 fL Normal 80.0-97.[address] [facility] Comment on above: Performed By: #### 2 7-0 #### [facility] [address] [place] [address] 20479 Monocytes (Bld) [#/Vol] 0.60 10*3/uL Normal 0.00-0.90 [facility] Comment on above: Performed By: #### 2 4317-0 #### [facility] [address] [place] [address] 78314 Monocytes/100 WBC (Bld) 5.4 % Normal 0.0-12.[address] [facility] Comment on above: Performed By: #### 2 4317-0 #### [facility] [address] [place] [address] 26955 Neutrophils Absolute 9.00 K/mcL High 1.80-7.70 [facility] Comment on above: Performed By: #### 2 4317-0 #### [facility] [address] [place] [address] 05360 Neutrophils/100 WBC (Bld) 79.1 % High 40.0-70.0 [facility] Comment on above: Performed By: #### 2 4317-0 #### [facility] [address] [place] [address] Platelet mean volume (Bld) [Entitic vol] 9.5 fL Normal 6.2-12.1 [facility] Comment on above: Performed By: #### 2 4317-0 #### [facility] [address] [place] [address] Platelets (Bld) [#/Vol] 206 10*3/uL Normal 142-424 [facility] Comment on above: Performed By: #### 2 4317-0 #### [facility] [address] [place] [address] 89092 RBC (Bld) [#/Vol] 5.36 10*6/uL Normal 4.30-5.70 [facility] Comment on above: Performed By: #### 2 4317-0 #### [facility] [address] [place] [address] 18915 WBC (Bld) [#/Vol] 11.4 10*3/uL High 4.6-10.2 [facility] Comment on above: Performed By: #### 2 4317-0 #### [facility] [address] [place] [address] Acetaminophen LevelOrdered B y: Joon Atkinson on 12-12-2020 Acetaminophen [Mass/Vol] ug/mL [facility] [facility] Alcohol, MedicalOrdered By: Joon Aktinson on 12-12-2020 Ethanol [Mass/Vol] mg/dL <10.0 mg/dL [facility] ealt Comment on above: Alcohol cutoff: <10. 00 mg/dL = None Detected CBC WITH AUTO DIFFERENTIALOr dered By: Joon Atkinson on 12-12-2020 Basophils (Bld) [#/Vol] 0.03 10*3/uL [facility] Basophils/100 WBC (Bld) 0.3 % [facility] Eosinophils (Bld) [#/Vol] 0.32 10*3/uL [facility] Eosinophils/100 WBC (Bld) 3.6 % [facility] Erythrocyte distribution width (RBC) [Entitic vol] 14.6 % 11.6 - 14.8 % [facility] Hematocrit (Bld) [Volume fraction] 42.0 % 41.0 - 53.0 % [facility] Hemoglobin (Bld) [Mass/Vol] 12.8 g/dL Low 13.5 - 17.5 g/dL [facility] Immature granulocytes (Bld) [#/Vol] 0.02 10*3/uL [facility] Immature granulocytes/100 WBC (Bld) 0.20 % [facility] Comment on above: The IG parameter is the percentage of metamyelocytes, myelocytes and promyelocytes. An immature granulocyte count (IG) of 1% or more suggests the possibility of infection, an IG count of 3% is very likely related to an infection. Interpretation and review of laboratory results Abnormal [facility] Lymphocytes (Bld) [#/Vol] 2.23 10*3/uL [facility] Lymphocytes/100 WBC (Bld) 24.9 % [facility] MCH (RBC) [Entitic mass] 28.1 pg 26.0 - 34.0 pg [facility] MCHC (RBC) [Mass/Vol] 30.5 g/dL Low 31.0 - 37.0 g/dL [facility] MCV (RBC) [Entitic vol] 92.1 fL 80.0 - 100.0 fL [facility] Monocytes (Bld) [#/Vol] 0.86 10*3/uL [facility] Monocytes/100 WBC (Bld) 9.6 % [facility] Neutrophils (Bld) [#/Vol] 5.49 10*3/uL [facility] Neutrophils/100 WBC (Bld) 61.4 % [facility] Nucleated RBC (Bld) [#/Vol] 0.00 10*3/uL [facility] Nucleated RBC/100 WBC (Bld) [Ratio] 0.0 % [facility] Platelet mean volume (Bld) [Entitic vol] 10.0 fL 9.4 - 12.4 fL [facility] Platelets (Bld) [#/Vol] 219 10*3/uL [facility] RBC (Bld) [#/Vol] 4.56 10*6/uL [facility] WBC (Bld) [#/Vol] 8.95 10*3/uL [facility] Comprehensive metabolic 2000 panelOrdered By: Joon Atkinson on 12-12-2020 Albumin [Mass/Vol] 4.3 g/dL 3.2 - 5.2 g/dL [facility] ALP [Catalytic activity/Vol] 140 U/L 40 - 150 U/L [facility] ALT [Catalytic activity/Vol] 10 U/L 0 - 40 U/L [facility] Anion gap [Moles/Vol] 14 mmol/L 10 - 2 0 mmol/L [facility] AST [Catalytic activity/Vol] 18 U/L 0 - 45 U/L [facility] Comment on above: Slightly Hemolyzed Bilirubin [Mass/Vol] mg/dL 0.0 - 1 .3 mg/dL [facility] Calcium [Mass/Vol] 9.5 mg/dL 8.4 - 10. 2 mg/dL [facility] Chloride [Moles/Vol] 102 mmol/L 98 - 10 8 mmol/L [facility] Creatinine [Mass/Vol] 1.02 mg/dL 0.50 - 1.30 [facility] GFR/1.73 sq M.predicted CKD-EPI (S/P/Bld) [Vol rate/Area] 99 >=60 mL/min/1.73 m2 [facility] Glucose [Mass/Vol] 98 mg/dL 65 - 99 mg/dL [facility] HCO3 [Moles/Vol] 29 mmol/L 21 - 32 mmol/L [facility] Interpretation and review of laboratory results Normal [facility] Potassium [Moles/Vol] 4.0 mmol/L 3.5 - 5.1 mmol/L [facility] Protein [Mass/Vol] 6.8 g/dL 6.0 - 8.0 g/dL [facility] Sodium [Moles/Vol] 141 mmol/L 135 - 145 mmol/L [facility] Urea nitrogen [Mass/Vol] 11 mg/dL 8 - 25 mg/dL [facility] Urea nitrogen/Creatinine [Mass ratio] 10.8 mg/mg [facility] The eGFR should be used for monitoring renal function only and not for medication dosing. [facility] GGTOrdered By: Joon Atkinson on 12-12-2020 Gamma glutamyl transferase [Catalytic activity/Vol] 24 U/L 11 - 51 U/L [facility] Mitchell TopOrdered By: Joon holly on 12-12-2020 Extra Tube Hold for add-ons. [facility] Comment on above: Auto resulted. [place] LevelOrdered By: Ganesh Atkinson on 12-12-2020 Onsted [Moles/Vol] 0.6 mmol/L 0.6 - 1. 2 mmol/L [facility] [place] [Moles/Vol]Ordered B y: Joon Atkinson on 12-12-2020 Interpretation and review of laboratory results Normal [facility] No Panel InformationOrdered By: Joon Atkinson on 12-12-2020 [facility] Interpretation and review of laboratory results Normal [facility] Interpretation and review of laboratory results Normal [facility] Salicylate LevelOrdered By: Joon Atkinson on 12-12-2020 Salicylates [Mass/Vol] mg/dL Low 10.0 - 20.0 mg/dL [facility] Salicylates [Mass/Vol]Ordere d By: Joon Atkinson on 12-12-2020 Interpretation and review of laboratory results Abnormal [facility] TSH DL <= 0.005 mIU/L QnOrde red By: Joon Atkinson on 12-12-2020 TSH Qn 1.02 m[IU]/L [facility] VALPROIC ACID/DEPAKOTEon VALPROIC ACID/DEPAKOTE <10 Low 50-100 [facility] Comment on above: Result Comment: Resu lts reported at less than analytical measurment of instr ument. Performed By: #### C #### [facility] [address] [place], [place] [address] Alcohol, Medicalon 0 Ethanol [Mass/Vol] mg/dL <10.0 mg/dL [facility] Comment on above: Alcohol cutoff: <10. 00 mg/dL = None Detected Basic Metabolic Panelon - Anion gap [Moles/Vol] 10 mmol/L 10 - 2 0 mmol/L [facility] Calcium [Mass/Vol] 9.7 mg/dL 8.4 - 10. 2 mg/dL [facility] Chloride [Moles/Vol] 102 mmol/L 98 - 10 8 mmol/L [facility] Creatinine [Mass/Vol] 1.12 mg/dL 0.50 - 1.30 [facility] GFR/1.73 sq M predicted among non-blacks MDRD (S/P/Bld) [Vol rate/Area] The eGFR should be used for monitoring renal function only and not for medication dosing. [facility] GFR/1.73 sq M.predicted CKD-EPI (S/P/Bld) [Vol rate/Area] 88 >=60 mL/min/1.73 m2 [facility] Glucose [Mass/Vol] 84 mg/dL 65 - 99 mg/dL [facility] HCO3 [Moles/Vol] 29 mmol/L 21 - 32 mmol/L [facility] Interpretation and review of laboratory results Abnormal [facility] Potassium [Moles/Vol] 4.2 mmol/L 3.5 - 5.1 mmol/L [facility] Sodium [Moles/Vol] 137 mmol/L 135 - 145 mmol/L [facility] Urea nitrogen [Mass/Vol] 8 mg/dL 8 - 25 mg/dL [facility] Urea nitrogen/Creatinine [Mass ratio] 7.1 mg/mg Low [facility] CBC WITH AUTO DIFFERENTIALon 06-20-2020 Basophils (Bld) [#/Vol] 0.05 10*3/uL [facility] Basophils/100 WBC (Bld) 0.4 % [facility] Eosinophils (Bld) [#/Vol] 0.34 10*3/uL [facility] Eosinophils/100 WBC (Bld) 2.9 % [facility] Erythrocyte distribution width (RBC) [Entitic vol] 14.6 % 11.6 - 14.8 % [facility] Hematocrit (Bld) [Volume fraction] 47.3 % 41 - 53 % [facility] Hemoglobin (Bld) [Mass/Vol] 14.4 g/dL 13.5 - 17.5 g/dL [facility] Immature granulocytes (Bld) [#/Vol] 0.05 10*3/uL [facility] Immature granulocytes/100 WBC (Bld) 0.40 % [facility] Comment on above: The IG parameter is the percentage of metamyelocytes, myelocytes and promyelocytes. An immature granulocyte count (IG) of 1% or more suggests the possibility of infection, an IG count of 3% is very likely related to an infection. Interpretation and review of laboratory results Abnormal [facility] Lymphocytes (Bld) [#/Vol] 2.03 10*3/uL [facility] Lymphocytes/100 WBC (Bld) 17.2 % [facility] MCH (RBC) [Entitic mass] 28.1 pg 26 - 34 pg [facility] MCHC (RBC) [Mass/Vol] 30.4 g/dL Low 31 - 37 g/dL [facility] MCV (RBC) [Entitic vol] 92.2 fL 80 - 100 fL [facility] Monocytes (Bld) [#/Vol] 0.85 10*3/uL [facility] Monocytes/100 WBC (Bld) 7.2 % [facility] Neutrophils (Bld) [#/Vol] 8.45 10*3/uL [facility] Neutrophils/100 WBC (Bld) 71.9 % [facility] Nucleated RBC (Bld) [#/Vol] 0.00 10*3/uL [facility] Nucleated RBC/100 WBC (Bld) [Ratio] 0.0 % [facility] Platelet mean volume (Bld) [Entitic vol] 9.8 fL 9.4 - 12.4 fL [facility] Platelets (Bld) [#/Vol] 241 10*3/uL [facility] RBC (Bld) [#/Vol] 5.13 10*6/uL [facility] ealth WBC (Bld) [#/Vol] 11.77 10*3/uL [facility] DRUGS OF ABUSE SCREEN, URINE on 06-20-2020 Amphetamines Ql (U) None Detected None Detected [facility] Comment on above: Urine Amphetamine Cu toff: < 1000 ng/mL = None Detected Barbiturates Screen Ql (U) None Detected None Detected [facility] Comment on above: Urine Barbiturates C utoff: < 200 ng/mL = None Detected Benzodiazepines Ql (U) None Detected None Detec terry [facility] Comment on above: Urine Benzodiazepine Cutoff: < 200 ng/mL = None Detected Buprenorphine Ql (U) None Detected None Detecte d [facility] Comment on above: Urine Buprenorphine Cutoff: < 5 ng/mL = None Detected Cannabinoids Screen Ql (U) None Detected None Detected [facility] Comment on above: Urine Cannabinoids C utoff: < 50 ng/mL = None Detected Cocaine Ql (U) None Detected None Detected [facility] Comment on above: Urine Cocaine Cutoff : < 300 ng/mL = None Detected Fentanyl+Norfentanyl Screen Ql (U) None Detected None Detected [facility] Comment on above: Urine Fentanyl Cutof f: < 1 ng/mL = None Detected Interpretation and review of laboratory results Normal [facility] Methadone Screen Ql (U) None Detected None Dete cted [facility] Comment on above: Urine Methadone Cuto ff: < 300 ng/mL = None Detected Opiates Screen Ql (U) None Detected None Detect ed [facility] Comment on above: Urine Opiates Cutoff : < 300 ng/mL = None Detected Oxycodone Ql (U) None Detected None Detected [facility] Comment on above: Urine Oxycodone Cuto ff: < 100 ng/mL = None Detected Screen results should be used for treatment purposes only. [facility] Hepatic Function Panelon Albumin [Mass/Vol] 4.2 g/dL 3.2 - 5.2 g/dL [facility] ALP [Catalytic activity/Vol] 140 U/L 40 - 150 U/L [facility] ALT [Catalytic activity/Vol] 10 U/L 0 - 40 U/L [facility] AST [Catalytic activity/Vol] 11 U/L 0 - 45 U/L [facility] Bilirubin [Mass/Vol] mg/dL 0 - 1.3 mg/dL [facility] Bilirubin.conjugated [Mass/Vol] mg/dL 0 - 0.4 mg/dL [facility] Interpretation and review of laboratory results Normal [facility] Protein [Mass/Vol] 6.8 g/dL 6 - 8 g/dL [facility] alth [place] Levelon 06-20-2020 Onsted [Moles/Vol] 1.2 mmol/L 0.6 - 1. 2 mmol/L [facility] Otheron 06-20-2020 Extra Tube Hold for add-ons. [facility] Comment on above: Auto resulted. Interpretation and review of laboratory results Normal [facility] TSH with Reflex Free T4on Interpretation and review of laboratory results Normal [facility] TSH Qn 1.01 m[IU]/L [facility] BASIC METABOLIC PANELon 05-28 Anion gap [Moles/Vol] 4 mmol/L Low 8-16 [facility] Comment on above: Performed By: #### M ETA #### [facility] [address] [place], [place] [address] Calcium [Mass/Vol] 9.1 mg/dL Normal 8.5-10.5 [facility] Comment on above: Performed By: #### M ETA #### [facility] [address] [place], [place] [address] Chloride [Moles/Vol] 108 mmol/L High 99-107 [facility] Comment on above: Performed By: #### M ETA #### [facility] [address] [place], [place] [address] CO2 [Moles/Vol] 30 mmol/L Normal 21-31 [facility] Comment on above: Performed By: #### M ETA #### [facility] [address] [place] [address] Creatinine [Mass/Vol] 0.93 mg/dL Normal 0.60-1.30 [facility] Comment on above: Performed By: #### M ETA #### [facility] [address] [place] [address] EGFRAA 104 mL/min/1.73m2 Normal [facility] Comment on above: Result Comment: GFR Ranges: Stage GFR Level Description 1 90mL/min or more Normal 2 60-89 mL/min Mild Decrease 3 30-59 mL/min Moderate Decrease 4 15-29 mL/min Severe Decrease 5 <15 mL/min Kidney Failure Performed By: #### M ETA #### [facility] [address] [place] [address] GFR/1.73 sq M.predicted MDRD (S/P/Bld) [Vol rate/Area] 86 mL/min/{1.73_m2} Normal [facility] Comment on above: Result Comment: GFR RANGES STAGE GFR LEVEL DESCRIPTION 1 90 mL/min or more NORMAL 2 60-89 mL/min MILD DECREASE 3 30-59 mL/min MODERATE DECREASE 4 15-29 mL/min SEVERE DECREASE 5 < 15mL/min KIDNEY FAILURE Performed By: #### M ETA #### [facility] [address] [place], [place] [address] Glucose [Mass/Vol] 77 mg/dL Normal 70-105 [facility] Comment on above: Performed By: #### M ETA #### [facility] [address] [place], [place] [address] Potassium [Moles/Vol] 3.9 mmol/L Normal 3.5-5.3 [facility] Comment on above: Performed By: #### M ETA #### [facility] [address] [place], [place] [address] Sodium [Moles/Vol] 142 mmol/L Normal 135-145 [facility] Comment on above: Performed By: #### M ETA #### [facility] [address] [place] [address] Urea nitrogen [Mass/Vol] 7.0 mg/dL Normal 7.0-25.0 [facility] Comment on above: Performed By: #### M ETA #### [facility] [address] [place] [address] Urea nitrogen/Creatinine [Mass ratio] 8.0 Ratio Normal 6.0-22.0 [facility] Comment on above: Performed By: #### M ETA #### [facility] [address] [place] [address] CBC, AUTO DIFFon 06-07-2020 Basophils (Bld) [#/Vol] 0.0 x10 3/uL Normal 0.0-0.2 [facility] Comment on above: Performed By: #### C BC #### [facility] [address] [place], [place] [address] Basophils/100 WBC (Bld) 0.4 % Normal 0.0-2.0 [facility] Comment on above: Performed By: #### C BC #### [facility] [address] [place] [address] Eosinophils (Bld) [#/Vol] 0.3 x10 3/uL Normal 0.0-0.7 [facility] Comment on above: Performed By: #### C BC #### [facility] [address] [place], [place] [address] Eosinophils/100 WBC (Bld) 3.3 % Normal 0.0-7.0 [facility] Comment on above: Performed By: #### C BC #### [facility] [address] [place] [address] Erythrocyte distribution width (RBC) [Ratio] 14.7 % Normal 11.0-14.8 [facility] Comment on above: Performed By: #### C BC #### [facility] [address] [place] [address] Hematocrit (Bld) [Volume fraction] 40 % Normal 39-49 [facility] Comment on above: Performed By: #### C BC #### [facility] [place], [place] [address] Hemoglobin (Bld) [Mass/Vol] 12.8 g/dL Low 13.5-17.5 [facility] Comment on above: Performed By: #### C BC #### [facility] [address] [place] [address] Lymphocytes (Bld) [#/Vol] 2.1 x10 3/uL Normal 1.0-4.8 [facility] Comment on above: Performed By: #### C BC #### [facility] [address] [place] [address] Lymphocytes/100 WBC (Bld) 21.7 % Low 22.0-44.0 [facility] Comment on above: Performed By: #### C BC #### [facility] [address] [place] [address] MANUAL DIFFERENTIAL No Normal * [facility] Comment on above: Performed By: #### C BC #### [facility] [address] [place] [address] MCH (RBC) [Entitic mass] 28.2 pg Normal 27.0-34.0 [facility] Comment on above: Performed By: #### C BC #### [facility] [address] [place] [address] MCHC (RBC) [Mass/Vol] 32.4 g/dL Normal 32.0-36.6 [facility] Comment on above: Performed By: #### C BC #### [facility] [address] [place] [address] MCV (RBC) [Entitic vol] 87 fL Normal 76-90 [facility] Comment on above: Performed By: #### C BC #### [facility] [address] [place] [address] Monocytes (Bld) [#/Vol] 0.7 x10 3/uL Normal 0.0-0.9 [facility] Comment on above: Performed By: #### C BC #### [facility] [address] [place] [address] Monocytes/100 WBC (Bld) 7.5 % Normal 0.0-12.0 [facility] Comment on above: Performed By: #### C BC #### [facility] [address] [place] [address] Neutrophils (Bld) [#/Vol] 6.4 x10 3/uL Normal 1.8-7.7 [facility] Comment on above: Performed By: #### C BC #### [facility] [address] [place], [place] [address] Neutrophils/100 WBC (Bld) 67.1 % Normal 40.0-70.0 [facility] Comment on above: Performed By: #### C BC #### [facility] [address] [place], [place] [address] Platelets (Bld) [#/Vol] 212 x10 3/uL Normal 142-424 [facility] Comment on above: Performed By: #### C BC #### [facility] [address] [place], [place] [address] RBC (Bld) [#/Vol] 4.5 x10 6/uL Normal 3.9-5.2 [facility] Comment on above: Performed By: #### C BC #### [facility] [address] [place], [place] [address] WBC (Bld) [#/Vol] 9.6 x10 3/uL Normal 4.6-10.2 [facility] Comment on above: Performed By: #### C BC #### [facility] [address] [place], [place] [address] Acetaminophen Levelon 2019 Acetaminophen [Mass/Vol] <5.0 [facility] Alcohol, Medicalon 0 Ethanol [Mass/Vol] mg/dL <10.0 mg/dL [facility] Comment on above: Alcohol cutoff: <10. 00 mg/dL = None Detected CBC WITH AUTO DIFFERENTIALon 04-04-2020 Basophils (Bld) [#/Vol] 0.03 10*3/uL [facility] Basophils/100 WBC (Bld) 0.3 % [facility] Eosinophils (Bld) [#/Vol] 0.20 10*3/uL [facility] Eosinophils/100 WBC (Bld) 2.2 % [facility] Erythrocyte distribution width (RBC) [Entitic vol] 13.8 % 11.6 - 14.8 % [facility] Hematocrit (Bld) [Volume fraction] 43.9 % 41 - 53 % [facility] Hemoglobin (Bld) [Mass/Vol] 13.1 g/dL Low 13.5 - 17.5 g/dL [facility] Immature granulocytes (Bld) [#/Vol] 0.02 10*3/uL [facility] Immature granulocytes/100 WBC (Bld) 0.20 % [facility] Comment on above: The IG parameter is the percentage of metamyelocytes, myelocytes and promyelocytes. An immature granulocyte count (IG) of 1% or more suggests the possibility of infection, an IG count of 3% is very likely related to an infection. Interpretation and review of laboratory results Abnormal [facility] Lymphocytes (Bld) [#/Vol] 1.96 10*3/uL [facility] Lymphocytes/100 WBC (Bld) 21.7 % [facility] MCH (RBC) [Entitic mass] 28.4 pg 26 - 34 pg [facility] MCHC (RBC) [Mass/Vol] 29.8 g/dL Low 31 - 37 g/dL [facility] MCV (RBC) [Entitic vol] 95.2 fL 80 - 100 fL [facility] Monocytes (Bld) [#/Vol] 0.70 10*3/uL [facility] Monocytes/100 WBC (Bld) 7.7 % [facility] Neutrophils (Bld) [#/Vol] 6.14 10*3/uL [facility] Neutrophils/100 WBC (Bld) 67.9 % [facility] Nucleated RBC (Bld) [#/Vol] 0.00 10*3/uL [facility] Nucleated RBC/100 WBC (Bld) [Ratio] 0.0 % [facility] Platelet mean volume (Bld) [Entitic vol] 9.6 fL 9.4 - 12.4 fL [facility] Platelets (Bld) [#/Vol] 210 10*3/uL [facility] RBC (Bld) [#/Vol] 4.61 10*6/uL [facility] WBC (Bld) [#/Vol] 9.05 10*3/uL [facility] Comprehensive Metabolic Pane darlene 04-04-2020 Albumin [Mass/Vol] 3.6 g/dL 3.2 - 5.2 g/dL [facility] ALP [Catalytic activity/Vol] 135 U/L 40 - 150 U/L [facility] ALT [Catalytic activity/Vol] 9 U/L 0 - 40 U/L [facility] Anion gap [Moles/Vol] 12 mmol/L 10 - 2 0 mmol/L [facility] AST [Catalytic activity/Vol] 15 U/L 0 - 45 U/L [facility] Bilirubin [Mass/Vol] mg/dL 0 - 1.3 mg/dL [facility] Calcium [Mass/Vol] 9.2 mg/dL 8.4 - 10. 2 mg/dL [facility] Chloride [Moles/Vol] 106 mmol/L 98 - 10 8 mmol/L [facility] Creatinine [Mass/Vol] 0.70 mg/dL 0.50 - 1.30 [facility] GFR/1.73 sq M predicted among non-blacks MDRD (S/P/Bld) [Vol rate/Area] The eGFR should be used for monitoring renal function only and not for medication dosing. [facility] GFR/1.73 sq M.predicted CKD-EPI (S/P/Bld) [Vol rate/Area] 127 >=60 mL/min/1.73 m2 [facility] Glucose [Mass/Vol] 90 mg/dL 65 - 99 mg/dL [facility] HCO3 [Moles/Vol] 26 mmol/L 21 - 32 mmol/L [facility] Potassium [Moles/Vol] 4.0 mmol/L 3.5 - 5.1 mmol/L [facility] Protein [Mass/Vol] 5.9 g/dL Low 6 - 8 g/dL [facility] alth Sodium [Moles/Vol] 140 mmol/L 135 - 145 mmol/L [facility] Urea nitrogen [Mass/Vol] 5 mg/dL Low 8 - 25 mg/dL [facility] Urea nitrogen/Creatinine [Mass ratio] 7.1 mg/mg Low [facility] DRUGS OF ABUSE SCREEN, URINE on 04-04-2020 Amphetamines Ql (U) None Detected None Detected [facility] Comment on above: Urine Amphetamine Cu toff: < 1000 ng/mL = None Detected Barbiturates Screen Ql (U) None Detected None Detected [facility] Comment on above: Urine Barbiturates C utoff: < 200 ng/mL = None Detected Benzodiazepines Ql (U) None Detected None Detec terry [facility] Comment on above: Urine Benzodiazepine Cutoff: < 200 ng/mL = None Detected Buprenorphine Ql (U) None Detected None Detecte d [facility] Comment on above: Urine Buprenorphine Cutoff: < 5 ng/mL = None Detected Cannabinoids Screen Ql (U) None Detected None Detected [facility] Comment on above: Urine Cannabinoids C utoff: < 50 ng/mL = None Detected Cocaine Ql (U) None Detected None Detected [facility] Comment on above: Urine Cocaine Cutoff : < 300 ng/mL = None Detected Fentanyl+Norfentanyl Screen Ql (U) None Detected None Detected [facility] Comment on above: Urine Fentanyl Cutof f: < 1 ng/mL = None Detected Interpretation and review of laboratory results Normal [facility] Methadone Screen Ql (U) None Detected None Dete cted [facility] Comment on above: Urine Methadone Cuto ff: < 300 ng/mL = None Detected Opiates Screen Ql (U) None Detected None Detect ed [facility] Comment on above: Urine Opiates Cutoff : < 300 ng/mL = None Detected Oxycodone Ql (U) None Detected None Detected [facility] Comment on above: Urine Oxycodone Cuto ff: < 100 ng/mL = None Detected Screen results should be used for treatment purposes only. [facility] Otheron 04-04-2020 Interpretation and review of laboratory results Normal [facility] Interpretation and review of laboratory results Abnormal [facility] Salicylate Levelon 0 Salicylates [Mass/Vol] mg/dL Low 10 - 20 mg/dL [facility] TSHon 04-04-2020 Interpretation and review of laboratory results Normal [facility] TSH Qn 1.06 m[IU]/L [facility] URINALYSISon 04-04-2020 Bacteria Auto Ql (U) None Seen None Se en /hpf [facility] Bilirubin Ql (U) Negative Negative [facility] Clarity Refractometry automated (U) Clear Clear [facility] Color (U) Colorless Colorless, Yellow [facility] Glucose Auto test strip (U) [Mass/Vol] Negative Negative mg/dL [facility] Hemoglobin Auto test strip Ql (U) Negative Negative [facility] Interpretation and review of laboratory results Abnormal [facility] Ketones (U) [Mass/Vol] Negative Negat kyra mg/dL [facility] Leukocyte esterase Auto test strip Ql (U) Negative Negative [facility] Nitrite Auto test strip Ql (U) Negative Negative [facility] pH (U) 7.0 [pH] [facility] Protein (U) [Mass/Vol] Negative Negat kyra mg/dL [facility] RBC Auto (Urine sed) [#/Area] 2 [facility] Specific gravity (U) [Rel density] 1.003 Low [facility] Urobilinogen (U) [Mass/Vol] <2.0 <2.0 mg/dL [facility] WBC Auto (Urine sed) [#/Area] <1 [facility] Microscopic examination is performed on all urinalysis samples and only positive findings are reported. The test for blood on the chemical analytic portion of urinalysis may also be positive due to hemoglobinuria and myoglobinuria and if red blood cells are present they are quantified by microscopic examination. [facility] HEMOGLOBIN / HEMATOCRITon Hematocrit (Bld) [Volume fraction] 41 % Normal 39-49 [facility] Comment on above: Performed By: #### H H #### [facility] [address] [place] [address] Hemoglobin (Bld) [Mass/Vol] 13.3 g/dL Low 13.5-17.5 [facility] Comment on above: Performed By: #### H H #### [facility] [address] [place] [address] TEGRETOL (CARBAMAZEPINE)on 0 03-21-2020 TEGRETOL/CARBAMAZEPINE 7.5 ug/mL Normal 4.0-12.0 [facility] Comment on above: Performed By: #### T EG #### [facility] [address] [place] [address] VITAMIN D; 25 HYDROXY (FCMH) on 03-21-2020 VITAMIN D 25 HYDROXY 53 ng/mL Normal [facility] Comment on above: Result Comment: Defi cient <20 ng/mL Insufficient 20 to <30 ng/mL Sufficient 30 to 100 ng/mL Upper Safety Limit >100 ng/mL Deficient <20 ng/mL Insufficient 20 to <30 ng/mL Sufficient 30 to 100 ng/mL Upper Safety Limit >100 ng/mL Performed By: #### C BC #### [facility] [address] [place] [address] HEMOGLOBIN / HEMATOCRITon Hematocrit (Bld) [Volume fraction] 42 % Normal 39-49 [facility] Comment on above: Performed By: #### C BC #### [facility] [address] [place], [place] [address] Hemoglobin (Bld) [Mass/Vol] 13.8 g/dL Normal 13.5-17.5 [facility] Comment on above: Performed By: #### C BC #### [facility] [address] [place], [place] [address] BASIC METABOLIC PANELon Anion gap [Moles/Vol] 8 mmol/L Normal 8-16 [facility] Comment on above: Performed By: #### M ETA #### [facility] [address] [place] [address] Calcium [Mass/Vol] 9.3 mg/dL Normal 8.5-10.5 [facility] Comment on above: Performed By: #### M ETA #### [facility] [address] [place] [address] Chloride [Moles/Vol] 105 mmol/L Normal 99-107 [facility] Comment on above: Performed By: #### M ETA #### [facility] [address] [place] [address]. [place], [place] [address] CO2 [Moles/Vol] 26 mmol/L Normal 21-31 [facility] Comment on above: Performed By: #### M ETA #### [facility] [address] [place] [address] Creatinine [Mass/Vol] 0.92 mg/dL Normal 0.60-1.30 [facility] Comment on above: Performed By: #### M ETA #### [facility] [address] [place] [address] EGFRAA 106 mL/min/1.73m2 Normal [facility] Comment on above: Result Comment: GFR Ranges: Stage GFR Level Description 1 90mL/min or more Normal 2 60-89 mL/min Mild Decrease 3 30-59 mL/min Moderate Decrease 4 15-29 mL/min Severe Decrease 5 <15 mL/min Kidney Failure Performed By: #### M ETA #### [facility] [address] [facility]. [place], [place] [address] GFR/1.73 sq M.predicted MDRD (S/P/Bld) [Vol rate/Area] 87 mL/min/{1.73_m2} Normal [facility] Comment on above: Performed By: #### M ETA #### [facility] [address] [place], [place] [address] Glucose [Mass/Vol] 62 mg/dL Low 70-105 [facility] Comment on above: Performed By: #### M ETA #### [facility] [address] [facility] [place], [place] [address] Potassium [Moles/Vol] 4.2 mmol/L Normal 3.5-5.3 [facility] Comment on above: Performed By: #### M ETA #### [facility] [address] [facility] [place], [place] [address] Sodium [Moles/Vol] 139 mmol/L Normal 135-145 [facility] Comment on above: Performed By: #### M ETA #### [facility] [address] [facility] [place], [place] [address] Urea nitrogen [Mass/Vol] 6.0 mg/dL Low 7.0-25.0 [facility] Comment on above: Performed By: #### M ETA #### [facility] [address] [facility] [place], [place] [address] Urea nitrogen/Creatinine [Mass ratio] 7.0 Ratio Normal 6.0-22.0 [facility] Comment on above: Performed By: #### M ETA #### [facility] [address] [place] [address] CBC, AUTO DIFFon 02-29-2020 Basophils (Bld) [#/Vol] 0.1 x10 3/uL Normal 0.0-0.2 [facility] Comment on above: Performed By: #### C BC #### [facility] [address] [place] [address] Basophils/100 WBC (Bld) 0.5 % Normal 0.0-2.0 [facility] Comment on above: Performed By: #### C BC #### [facility] [address] [place] [address] Eosinophils (Bld) [#/Vol] 0.3 x10 3/uL Normal 0.0-0.7 [facility] Comment on above: Performed By: #### C BC #### [facility] [address] [place] [address] Eosinophils/100 WBC (Bld) 2.4 % Normal 0.0-7.0 [facility] Comment on above: Performed By: #### C BC #### [facility] [address] [place] [address] Erythrocyte distribution width (RBC) [Ratio] 14.1 % Normal 11.0-14.8 [facility] Comment on above: Performed By: #### C BC #### [facility] [address] [place] [address] Hematocrit (Bld) [Volume fraction] 44 % Normal 39-49 [facility] Comment on above: Performed By: #### C BC #### [facility] [address] [place], [place] [address] Hemoglobin (Bld) [Mass/Vol] 14.6 g/dL Normal 13.5-17.5 [facility] Comment on above: Performed By: #### C BC #### [facility] [address] [place], [place] [address] Lymphocytes (Bld) [#/Vol] 2.7 x10 3/uL Normal 1.0-4.8 [facility] Comment on above: Performed By: #### C BC #### [facility] [address] [place] [address] Lymphocytes/100 WBC (Bld) 25.8 % Normal 22.0-44.0 [facility] Comment on above: Performed By: #### C BC #### [facility] [address] [place] [address] MANUAL DIFFERENTIAL No Normal * [facility] Comment on above: Performed By: #### C BC #### [facility] [address] [place] [address] MCH (RBC) [Entitic mass] 29.6 pg Normal 27.0-34.0 [facility] Comment on above: Performed By: #### C BC #### [facility] [address] [place] [address] MCHC (RBC) [Mass/Vol] 32.8 g/dL Normal 32.0-36.6 [facility] Comment on above: Performed By: #### C BC #### [facility] [address] [place] [address] MCV (RBC) [Entitic vol] 90 fL Normal 76-90 [facility] Comment on above: Performed By: #### C BC #### [facility] [address] [facility] [place], [place] [address] Monocytes (Bld) [#/Vol] 0.7 x10 3/uL Normal 0.0-0.9 [facility] Comment on above: Performed By: #### C BC #### [facility] [address] [place] [address]. [place], [place] [address] Monocytes/100 WBC (Bld) 6.5 % Normal 0.0-12.0 [facility] Comment on above: Performed By: #### C BC #### [facility] [address] [place] [address]. [place], [place] [address] Neutrophils (Bld) [#/Vol] 6.9 x10 3/uL Normal 1.8-7.7 [facility] Comment on above: Performed By: #### C BC #### [facility] [address] [facility] [place], [place] [address] Neutrophils/100 WBC (Bld) 64.8 % Normal 40.0-70.0 [facility] Comment on above: Performed By: #### C BC #### [facility] [address] [place] [address]. [place], [place] [address] Platelets (Bld) [#/Vol] 225 x10 3/uL Normal 142-424 [facility] Comment on above: Performed By: #### C BC #### [facility] [address] [place] [address]. [place], [place] [address] RBC (Bld) [#/Vol] 4.9 x10 6/uL Normal 3.9-5.2 [facility] Comment on above: Performed By: #### C BC #### [facility] [address] [place] [address]. [place], [place] [address] WBC (Bld) [#/Vol] 10.7 x10 3/uL High 4.6-10.2 [facility] Comment on above: Performed By: #### C BC #### [facility] [address] [place] [address] HEMOGLOBIN A1Con 02-29-2020 HbA1c (Bld) [Mass fraction] 5.8 % Normal 4.0-6.2 [facility] Comment on above: Result Comment: Expe cted Values: 3-6% for non diabetic 6-9% for controlled diabetic >9% for poorly controlled diabetic Performed By: #### C BC #### [facility] [address] [place] [address] HbA1c (Bld) [Mass fraction] 120 mg/dL Normal [facility] Comment on above: Performed By: #### C BC #### [facility] [address] [place] [address] LITHIUM, SERUMon 02-29-2020 Onsted [Moles/Vol] 1.2 mmol/L Normal 0.6-1.2 [facility] Comment on above: Performed By: #### L ITHIUM #### [facility] [address] [place] [address] LIVER PROFILEon 02-29-2020 Albumin [Mass/Vol] 4.0 g/dL Normal 3.3-5.7 [facility] Comment on above: Performed By: #### L IVER #### [facility] [address] [place] [address] Albumin/Globulin [Mass ratio] 2.0 {ratio} Normal 1.1-2.5 [facility] Comment on above: Performed By: #### L IVER #### [facility] [address] [place] [address] ALP [Catalytic activity/Vol] 145 U/L High 34-124 [facility] Comment on above: Performed By: #### L IVER #### [facility] [address] [place] [address] ALT [Catalytic activity/Vol] 10 U/L Normal 7-52 [facility] Comment on above: Performed By: #### L IVER #### [facility] [address] [place] [address] AST [Catalytic activity/Vol] 11 U/L Low 13-39 [facility] Comment on above: Performed By: #### L IVER #### [facility] [address] [place] [address] Bilirubin [Mass/Vol] 0.05 mg/dL Normal 0.03-0.18 [facility] Comment on above: Performed By: #### L IVER #### [facility] [address] [place] [address] Bilirubin Ql (U) 0.3 mg/dL Normal 0.3-1.0 [facility] Comment on above: Performed By: #### L IVER #### [facility] [address] [place] [address] Globulin (S) [Mass/Vol] 2.0 g/dL Normal 1.7-3.8 [facility] Comment on above: Performed By: #### L IVER #### [facility] [address] [place] [address] Protein [Mass/Vol] 5.9 g/dL Low 6.0-8.9 [facility] Comment on above: Performed By: #### L IVER #### [facility] [address] [place] [address] PSA-SCREENINGon 02-29-2020 PSA FOR SCREENING 0.635 ng/mL Normal 0.000-4.000 [facility] Comment on above: Performed By: #### C BC #### [facility] [address] [place] [address] TSH - THIRD GENERATIONon TSH Qn 1.115 uIU/mL Normal 0.340-5.600 [facility] Comment on above: Performed By: #### C BC #### [facility] [address] [place] [address] VITAMIN B12on 02-29-2020 Cobalamin (Vitamin B12) [Mass/Vol] 197 pg/mL Normal 180-914 [facility] Comment on above: Performed By: #### C BC #### [facility] [address] [place] [address] VITAMIN D; 25 HYDROXY (FCMH) on 02-29-2020 VITAMIN D 25 HYDROXY 49 ng/mL Normal [facility] Comment on above: Result Comment: Defi cient <20 ng/mL Insufficient 20 to <30 ng/mL Sufficient 30 to 100 ng/mL Upper Safety Limit >100 ng/mL Performed By: #### C BC #### [facility] [address] [place] [address] LIPID PROFILEon 02-26-2020 Cholesterol [Mass/Vol] 90 mg/dL Normal 25-200 [facility] Comment on above: Performed By: #### L IPID #### [facility] [address] [place] [address] Cholesterol in HDL [Mass/Vol] 32 mg/dL Normal 23-92 [facility] Comment on above: Performed By: #### L IPID #### [facility] [address] [place] [address] Cholesterol in LDL [Mass/Vol] 33 mg/dL Low 66-178 [facility] Comment on above: Performed By: #### L IPID #### [facility] [address] [place], [place] [address] Cholesterol in VLDL [Mass/Vol] 25 mg/dL Normal 0-40 [facility] Comment on above: Performed By: #### L IPID #### [facility] [address] [place] [address] Triglyceride [Mass/Vol] 124 mg/dL Normal 48-352 [facility] Comment on above: Performed By: #### L IPID #### [facility] [address] [place] [address] VALPROIC ACID/DEPAKOTEon VALPROIC ACID/DEPAKOTE <10 Low 50-100 [facility] Comment on above: Result Comment: Resu lts reported at less than analytical measurment of instr ument. Performed By: #### V ALP #### [facility] [address] [place] [address] BASIC METABOLIC PANELon 11-26 Anion gap [Moles/Vol] 6 mmol/L Low 8-16 [facility] Comment on above: Performed By: #### M ETA #### [facility] [place], [place] [address] Calcium [Mass/Vol] 9.1 mg/dL Normal 8.5-10.5 [facility] Comment on above: Performed By: #### M ETA #### [facility] [address] [place], [place] [address] Chloride [Moles/Vol] 105 mmol/L Normal 99-107 [facility] Comment on above: Performed By: #### M ETA #### [facility] [address] [facility] [place], [place] [address] CO2 [Moles/Vol] 30 mmol/L Normal 21-31 [facility] Comment on above: Performed By: #### M ETA #### [facility] [address] [facility] [place], [place] [address] Creatinine [Mass/Vol] 0.88 mg/dL Normal 0.60-1.30 [facility] Comment on above: Performed By: #### M ETA #### [facility] [address] [facility] [place], [place] [address] EGFRAA 112 mL/min/1.73m2 Normal [facility] Comment on above: Result Comment: GFR Ranges: Stage GFR Level Description 1 90mL/min or more Normal 2 60-89 mL/min Mild Decrease 3 30-59 mL/min Moderate Decrease 4 15-29 mL/min Severe Decrease 5 <15 mL/min Kidney Failure Performed By: #### M ETA #### [facility] [address] [place], [place] [address] GFR/1.73 sq M.predicted MDRD (S/P/Bld) [Vol rate/Area] 92 mL/min/{1.73_m2} Normal [facility] Comment on above: Performed By: #### M ETA #### [facility] [address] [facility] [place], [place] [address] Glucose [Mass/Vol] 59 mg/dL Low 70-105 [facility] Comment on above: Performed By: #### M ETA #### [facility] [address] [place] [address] Potassium [Moles/Vol] 4.1 mmol/L Normal 3.5-5.3 [facility] Comment on above: Performed By: #### M ETA #### [facility] [address] [place], [place] [address] Sodium [Moles/Vol] 141 mmol/L Normal 135-145 [facility] Comment on above: Performed By: #### M ETA #### [facility] [address] [place] [address] Urea nitrogen [Mass/Vol] 6.0 mg/dL Low 7.0-25.0 [facility] Comment on above: Performed By: #### M ETA #### [facility] [address] [place], [place] [address] Urea nitrogen/Creatinine [Mass ratio] 7.0 Ratio Normal 6.0-22.0 [facility] Comment on above: Performed By: #### M ETA #### [facility] [address] [place] [address] CBC, AUTO DIFFon 12-11-2019 Basophils (Bld) [#/Vol] 0.0 x10 3/uL Normal 0.0-0.2 [facility] Comment on above: Performed By: #### C BC #### [facility] [address] [place] [address] Basophils/100 WBC (Bld) 0.3 % Normal 0.0-2.0 [facility] Comment on above: Performed By: #### C BC #### [facility] [address] [place] [address] Eosinophils (Bld) [#/Vol] 0.4 x10 3/uL Normal 0.0-0.7 [facility] Comment on above: Performed By: #### C BC #### [facility] [address] [place] [address] Eosinophils/100 WBC (Bld) 3.4 % Normal 0.0-7.0 [facility] Comment on above: Performed By: #### C BC #### [facility] [address] [place], [place] [address] Erythrocyte distribution width (RBC) [Ratio] 14.0 % Normal 11.0-14.8 [facility] Comment on above: Performed By: #### C BC #### [facility] [address] [place] [address] Hematocrit (Bld) [Volume fraction] 43 % Normal 39-49 [facility] Comment on above: Performed By: #### C BC #### [facility] [address] [place] [address] Hemoglobin (Bld) [Mass/Vol] 14.3 g/dL Normal 13.5-17.5 [facility] Comment on above: Performed By: #### C BC #### [facility] [address] [place] [address] Lymphocytes (Bld) [#/Vol] 2.2 x10 3/uL Normal 1.0-4.8 [facility] [facility] Comment on above: Performed By: #### C BC #### [facility] [address] [place] [id number] Lymphocytes/100 WBC (Bld) 20.6 % Low 22.0-44.0 [facility] Comment on above: Performed By: #### C BC #### [facility] [address] [place] [address] 29046 MCH (RBC) [Entitic mass] 29.8 pg Normal 27.0-34.0 [facility] Comment on above: Performed By: #### C BC #### [facility] [address] [place] [address]. [place], [place] [address] MCHC (RBC) [Mass/Vol] 33.3 g/dL Normal 32.0-36.6 [facility] Comment on above: Performed By: #### C BC #### [facility] [address] [place] [address] MCV (RBC) [Entitic vol] 90 fL Normal 76-90 [facility] Comment on above: Performed By: #### C BC #### [facility] [address] [place] [address] Monocytes (Bld) [#/Vol] 0.9 x10 3/uL Normal 0.0-0.9 [facility] Comment on above: Performed By: #### C BC #### [facility] [address] [place] [address]341 Monocytes/100 WBC (Bld) 8.3 % Normal 0.0-12.0 [facility] Comment on above: Performed By: #### C BC #### [facility] [address] [place] [address] Neutrophils (Bld) [#/Vol] 7.2 x10 3/uL Normal 1.8-7.7 [facility] Comment on above: Performed By: #### C BC #### [facility] [address] [place] [address] Neutrophils/100 WBC (Bld) 67.4 % Normal 40.0-70.0 [facility] Comment on above: Performed By: #### C BC #### [facility] [address] [place] [address] 56700 Platelets (Bld) [#/Vol] 190 x10 3/uL Normal 142-424 [facility] Comment on above: Performed By: #### C BC #### [facility] [address] [place] [address], [place] [address] RBC (Bld) [#/Vol] 4.8 x10 6/uL Normal 3.9-5.2 [facility] Comment on above: Performed By: #### C BC #### [facility] [address] [facility]. [place], [place] [address] WBC (Bld) [#/Vol] 10.6 x10 3/uL High 4.6-10.2 [facility] Comment on above: Performed By: #### C BC #### [facility] [address] [facility]. [place], [place] [address] BMPon 07-03-2018 Anion gap 3 molar conc 14 mmol/L Invalid Interpretation Code 10 - 20 mmol/L [facility] Calcium mass conc 10.1 mg/dL Invalid Interpretation Code 8.4 - 10.2 mg/dL [facility] Chloride molar conc 99 mmol/L Invalid Interpretation Code 98 - 108 mmol/L [facility] Creatinine mass conc 0.73 mg/dL Invalid Interpretation Code 0.5 - 1.3 mg/dL [facility] GFR/1.73 sq M predicted among non-blacks MDRD vol rate/area (S/P/Bld) The eGFR should be used for monitoring renal function only and not for medication dosing. Invalid Interpretation Code [facility] GFR/1.73 sq M.predicted CKD-EPI vol rate/area (S/P/Bld) 127 Invalid Interpretation Code >=60 mL/min/1.73 m2 [facility] Glucose mass conc 100 mg/dL High 65 - 99 mg/dL [facility] HCO3 molar conc 31 mmol/L Invalid Interpretation Code 21 - 32 mmol/L [facility] Interpretation and review of laboratory results Abnormal Invalid Interpretation Code [facility] Potassium molar conc 4.7 mmol/L Invalid Interpretation Code 3.5 - 5.1 mmol/L [facility] Sodium molar conc 139 mmol/L Invalid Interpretation Code 135 - 145 mmol/L [facility] Urea nitrogen mass conc 8 mg/dL Invalid Interpretation Code 8 - 25 mg/dL [facility] Urea nitrogen/Creatinine mass ratio 11.0 mg/mg Invalid Interpretation Code [facility] CBC WITH AUTO DIFFERENTIALon 07-03-2018 Basophils Auto #/vol (Bld) 0.03 10*3/uL Invalid Interpretation Code [facility] Basophils/100 WBC Auto (Bld) 0.3 % Invalid Interpretation Code [facility] Eosinophils Auto #/vol (Bld) 0.26 10*3/uL Invalid Interpretation Code [facility] Eosinophils/100 WBC Auto (Bld) 2.5 % Invalid Interpretation Code [facility] Erythrocyte distribution width Auto Entitic volume (RBC) 13.5 % Invalid Interpretation Code 11.6 - 14.8 % [facility] Hematocrit Auto Volume Fraction (Bld) 47.9 % Invalid Interpretation Code 41 - 53 % [facility] Hemoglobin mass conc (Bld) 15.1 g/dL Invalid Interpretation Code 13.5 - 17.5 g/dL [facility] Immature granulocytes #/vol (Bld) 0.02 10*3/uL Invalid Interpretation Code [facility] Immature granulocytes/100 WBC (Bld) 0.20 % Invalid Interpretation Code [facility] Comment on above: The IG parameter is the percentage of metamyelocytes, myelocytes, and promyelocytes. Interpretation and review of laboratory results Abnormal Invalid Interpretation Code [facility] Lymphocytes Auto #/vol (Bld) 1.70 10*3/uL Invalid Interpretation Code [facility] Lymphocytes/100 WBC Auto (Bld) 16.2 % Invalid Interpretation Code [facility] MCH Auto Entitic mass (RBC) 29.5 pg Invalid Interpretation Code 26 - 34 pg [facility] MCHC Auto mass conc (RBC) 31.5 g/dL Invalid Interpretation Code 31 - 37 g/dL [facility] MCV Auto Entitic volume (RBC) 93.6 fL Invalid Interpretation Code 80 - 100 fL [facility] Monocytes Auto #/vol (Bld) 0.63 10*3/uL Invalid Interpretation Code [facility] Monocytes/100 WBC Auto (Bld) 6.0 % Invalid Interpretation Code [facility] Neutrophils Auto #/vol (Bld) 7.86 10*3/uL High [facility] Neutrophils/100 WBC Auto (Bld) 74.8 % Invalid Interpretation Code [facility] Nucleated RBC #/vol (Bld) 0.00 10*3/uL Invalid Interpretation Code [facility] Nucleated RBC/100 WBC Ratio (Bld) 0.0 % Invalid Interpretation Code [facility] Platelet mean volume Auto Entitic volume (Bld) 10.1 fL Invalid Interpretation Code 9 - 15.5 fL [facility] Platelets Auto #/vol (Bld) 233 10*3/uL Invalid Interpretation Code [facility] RBC Auto #/vol (Bld) 5.12 10*6/uL Invalid Interpretation Code [facility] WBC Auto #/vol (Bld) 10.50 10*3/uL Invalid Interpretation Code [facility] CT ABDOMEN PELVIS WITHOUT CO NTRASTon 07-03-2018 CT ABDOMEN PELVIS WITHOUT CONTRAST EXAMINATION:CT ABDOMEN PELVIS WITHOUT CONTRASTHISTORY:left groin/llq painCOMPARISON:Corre lation is made with previous CT of the abdomen and pelvis with contrast 05/22/2012.TECHNIQUE :Spiral axial CT imaging of the abdomen and pelvis was performed at 3.75 mm intervals throughout. No oral or intravenous contrast was administered. Sagittal and coronal reconstructions are provided.Dose reduction techniques were achieved by using automated exposure control and/or adjustment of mA and/or kV according to patient size and/or use of iterative reconstruction technique.FINDINGS:T here is a large calculus within the left [...] the spine. The visualized lung bases are clear.IMPRESSION:The re is a large calculus within the left [...] process is identified at the abdomen or pelvis.BAB/bdWorksta tion ID: [id number] by: CAROL RODRIGUEZ on WedJul 03, 2018 5:09:01 PM ESTTranscribed by: MARIEL LO on WedJul 03, 2018 5:45:05 PM ESTFinalized by: CAROL RODRIGUEZ on WedJul 03, 2018 10:55:16 PM EST Normal [facility] Comment on above: Order Comment: Reaso n for exam?:Pt arrives to ED via EMS from [place] with c/o left abdominal/flank pain x 1 month. Pt has hx of diabetes and stroke with right sided paralysis. EMS reports glucose 101. Pt denies N/V/D/C.Injury/Trauma or Illness?:Illness/OtherHow long have you had these symptoms (acute/chronic)?:AcuteType of Exam?:InitialAdditional signs and symptoms?:n CT Abdomen Pelvis Without Co ntraston 07-03-2018 Interface, Rad In [employer] - 07/03/2018 10:57 PM EST EXAMINATION: CT [...] is identified at the abdomen or pelvis. [employer] Workstation ID: [id number] Invalid Interpretation Code [facility] EXAMINATION: CT ABDOMEN PELVIS WITHOUT CONTRAST HISTORY: [...] lung bases are clear. Invalid Interpretation Code [facility] There is a large calculus within [...] is identified at the abdomen or pelvis. [employer] Workstation ID: [id number] Invalid Interpretation Code [employer] [facility] Lactic Acid, Plasmaon 2018 Interpretation and review of laboratory results Abnormal Invalid Interpretation Code [facility] Lactate molar conc 2.4 mmol/L High 0.6 - 2 mmol/L [facility] Otheron 07-03-2018 Extra Tube Hold for add-ons. Invalid Interpretation Code [facility] Comment on above: Auto resulted. URINALYSISon [...] strip (U) 7.0 [pH] Invalid Interpretation Code [facility] Protein mass conc (U) 100 Abnormal Negati ve mg/dL [facility] RBC Auto #/area (Urine sed) >180 High [facility] Specific gravity Automated test strip Relative Density (U) 1.013 Invalid Interpretation Code [facility] Urobilinogen Test strip Qn (U) <2.0 Invalid Interpretation Code <2.0 mg/dL [facility] WBC Auto #/area (Urine sed) 9 High [facility] Microscopic examination is performed on all urinalysis samples and only positive findings are reported. The test for blood on the chemical analytic portion of urinalysis may also be positive due to hemoglobinuria and myoglobinuria and if red blood cells are present they are quantified by microscopic examination. Invalid Interpretation Code [facility] XR CHEST AP/PA AND LATon XR CHEST AP/PA AND LAT EXAMINATION:Chest , two views, 07/03/2018 at 4:55 p.m.HISTORY:Cough.CO MPARISON:05/25/2012. TECHNIQUE:PA and lateral views of the chest.FINDINGS:The lateral view is limited by the patient's overlying arm. Cardiac size and pulmonary vascularity are normal. The lungs are grossly clear. The costophrenic angles are sharp. There is a small ossification projecting just inferior to the left acromion process.IMPRESSION:1 . Negative chest.TMB/trnWorksta tion ID: [id number] by: MAME ROWE on WedJul 03, 2018 5:02:00 PM ESTTranscribed by: MAE BULLARD on WedJul 03, 2018 5:42:10 PM ESTFinalized by: MAME ROWE on WedJul 03, 2018 5:47:12 PM EST Normal [facility] Comment on above: Order Comment: Reaso n for exam?:Pt arrives to ED via EMS from [place] with c/o left abdominal/flank pain x 1 month. Pt has hx of diabetes and stroke with right sided paralysis. EMS reports glucose 101. Pt denies N/V/D/C.Injury/Trauma or Illness?:Illness/OtherHow long have you had these symptoms (acute/chronic)?:AcuteHistory of cancer?:nSurgeries, chemotherapy, or radiation?:nType of Exam?:InitialAdditional signs and symptoms?:n 1. Negative chest. TMB/trn Workstation ID: [id number] Invalid Interpretation Code [email or web address] [place] Interface, Rad In [employer] Speechq - 07/03/2018 5:50 PM EST EXAMINATION: Chest, [...] left acromion process. IMPRESSION: 1. Negative chest. [employer] Workstation ID: [id number] Invalid Interpretation Code [facility] EXAMINATION: Chest, two views, 07/03/2018 at 4:55 [...] the left acromion process. Invalid Interpretation Code [facility] Vital Signs Date Time Vital Sign Value Performing Clinician Facility 04-17-2025 15:30-0400 Heart rate 99 /min Dr. Mame Bright MD Work Phone: [facility] 04-17-2025 15:30-0400 Respiratory rate 22 /min Dr. Mame Bright MD Work Phone: [facility] 04-17-2025 15:30-0400 SaO2% (BldA) [Mass fraction] 92 % Dr. Mame Bright MD Work Phone: [facility] 04-17-2025 13:39-0400 Body temperature 97.5 [degF] Dr. Mame Bright MD Work Phone: [facility] 04-17-2025 13:39-0400 Diastolic blood pressure 89 mm[Hg] Dr. Mame Bright MD Work Phone: [facility] 04-17-2025 13:39-0400 Systolic blood pressure 118 mm[Hg] Dr. Mame Bright MD Work Phone: [facility] 04-17-2025 09:41-0400 Inhaled oxygen flow rate 3 L/min Dr. Mame Bright MD Work Phone: [facility] 04-17-2025 09:23-0400 Body height 170.[address] Mame Bright MD Work Phone: [facility] 04-17-2025 09:23-0400 Body mass index (BMI) [Ratio] 36.5 kg/m2 Dr. Mame Bright MD Work Phone: [facility] 04-17-2025 09:23-0400 Body weight 105.[address] Mame Bright MD Work Phone: [facility] 02-03-2025 15:00-0400 Body temperature 98.1 [degF] Dr. Mame Bright MD Work Phone: [facility] 02-03-2025 15:00-0400 Diastolic blood pressure 76 mm[Hg] Dr. Mame Bright MD Work Phone: [facility] 02-03-2025 15:00-0400 Heart rate 62 /min Dr. Mame Bright MD Work Phone: [facility] 02-03-2025 15:00-0400 Inhaled oxygen flow rate 3 L/min Dr. Mame Bright MD Work Phone: [facility] 02-03-2025 15:00-0400 Respiratory rate 18 /min Dr. Mame Bright MD Work Phone: [facility] 02-03-2025 15:00-0400 SaO2% (BldA) [Mass fraction] 98 % Dr. Mame Bright MD Work Phone: [facility] 02-03-2025 15:00-0400 Systolic blood pressure 118 mm[Hg] Dr. Mame Bright MD Work Phone: [facility] 02-03-2025 03:06-0400 Body mass index (BMI) [Ratio] 36.3 kg/m2 Dr. Mame Bright MD Work Phone: [facility] 02-03-2025 03:06-0400 Body weight 105.[address] Mame Bright MD Work Phone: [facility] 02-02-2025 11:00-0400 Inhaled oxygen concentration 40 % Dr. Mame Bright MD Work Phone: [facility] 02-01-2025 11:16-0400 Body height 170.[address] Mame Bright MD Work Phone: [facility] 01-31-2025 23:00-0400 Diastolic blood pressure 74 mm[Hg] Dr. Mame Bright MD Work Phone: [facility] 01-31-2025 23:00-0400 Heart rate 84 /min Dr. Mame Bright MD Work Phone: [facility] 01-31-2025 23:00-0400 Inhaled oxygen concentration 60 % Dr. Mame Bright MD Work Phone: [facility] 01-31-2025 23:00-0400 Inhaled oxygen flow rate 45 L/min Dr. Mame Bright MD Work Phone: [facility] 01-31-2025 23:00-0400 Respiratory rate 25 /min Dr. Maem Bright MD Work Phone: [facility] 01-31-2025 23:00-0400 SaO2% (BldA) [Mass fraction] 97 % Dr. Mame Bright MD Work Phone: [facility] 01-31-2025 23:00-0400 Systolic blood pressure 116 mm[Hg] Dr. Mame Bright MD Work Phone: [facility] 01-31-2025 22:53-0400 Body temperature 98.8 [degF] Dr. Mame Bright MD Work Phone: [facility] 01-31-2025 20:19-0400 Body height 172.[address] Mame Bright MD Work Phone: [facility] 01-31-2025 20:19-0400 Body mass index (BMI) [Ratio] 34.9 kg/m2 Dr. Mame Bright MD Work Phone: [facility] 01-31-2025 20:19-0400 Body weight 104.[address] Mame Bright MD Work Phone: [facility] 12-06-2024 13:33-0400 Body temperature 97.9 [degF] Dr. Mame Bright MD Work Phone: [facility] 12-06-2024 13:33-0400 Diastolic blood pressure 82 mm[Hg] Dr. Mame Bright MD Work Phone: [facility] 12-06-2024 13:33-0400 Heart rate 76 /min Dr. Mame Bright MD Work Phone: [facility] 12-06-2024 13:33-0400 Respiratory rate 16 /min Dr. Mame Bright MD Work Phone: [facility] 12-06-2024 13:33-0400 SaO2% (BldA) [Mass fraction] 95 % Dr. Mame Bright MD Work Phone: [facility] 12-06-2024 13:33-0400 Systolic blood pressure 114 mm[Hg] Dr. Mame Bright MD Work Phone: [facility] 12-05-2024 23:25-0400 Body mass index (BMI) [Ratio] 34.4 kg/m2 Dr. Mame Birght MD Work Phone: [facility] 12-05-2024 23:25-0400 Body weight 103.[address] Mame Bright MD Work Phone: [facility] 12-05-2024 07:00-0400 Inhaled oxygen flow rate 2 L/min Dr. Mame Bright MD Work Phone: [facility] 12-04-2024 14:39-0400 Body height [address] Mame Bright MD Work Phone: [facility] 12-04-2024 14:14-0400 Body temperature 100.2 [degF] Dr. Mame Bright MD Work Phone: [facility] 12-04-2024 14:14-0400 Diastolic blood pressure 70 mm[Hg] Dr. Mame Bright MD Work Phone: 7(336)324-778401 [place] [address] 12-04-2024 14:14-0400 Heart rate 76 /min Dr. Mame Bright MD Work Phone: 4(647)271-820801 [place] [address] 12-04-2024 14:14-0400 Respiratory rate 16 /min Dr. Mame Bright MD Work Phone: 5(567)729-905101 [place] [address] 12-04-2024 14:14-0400 SaO2% (BldA) [Mass fraction] 93 % Dr. Mame Bright MD Work Phone: [facility] 12-04-2024 14:14-0400 Systolic blood pressure 109 mm[Hg] Dr. Mame Bright MD Work Phone: [facility] 12-04-2024 12:00-0400 Inhaled oxygen flow rate 10 L/min Dr. Mame Bright MD Work Phone: [facility] 12-04-2024 10:26-0400 Body height 172.[address] Mame Bright MD Work Phone: [facility] 12-04-2024 10:26-0400 Body mass index (BMI) [Ratio] 35.3 kg/m2 Dr. Mame Bright MD Work Phone: [facility] 12-04-2024 10:26-0400 Body weight 105.[address] Mame Bright MD Work Phone: [facility] 07-07-2022 17:00-0500 Body temperature 97.9 [degF] Alaina Baez MD Work Phone: [employer] 07-07-2022 17:00-0500 Diastolic blood pressure 75 mm[Hg] Alaina Baez MD Work Phone: [employer] 07-07-2022 17:00-0500 Heart rate 80 /min Alaina Baez MD Work Phone: [employer] 07-07-2022 17:00-0500 Respiratory rate 14 /min Alaina Baez MD Work Phone: [employer] 07-07-2022 17:00-0500 SaO2% (BldA) [Mass fraction] 96 % Alaina Baez MD Work Phone: [employer] 07-07-2022 17:00-0500 Systolic blood pressure 110 mm[Hg] Alaina Baez MD Work Phone: [employer] 06-30-2022 13:00-0500 Body height 175.3 cm Alaina Baez MD Work Phone: [employer] 06-30-2022 13:00-0500 Body mass index (BMI) [Ratio] 29.51 kg/m2 Alaina Baez MD Work Phone: [employer] 06-30-2022 13:00-0500 Body weight 90.7 kg Alaina Baez MD Work Phone: [employer] 05-18-2022 10:12-0500 Body temperature 100.2 [degF] Ronan Siegel DO Work Phone: [employer] [facility] 05-18-2022 10:12-0500 Diastolic blood pressure 56 mm[Hg] Ronan Siegel DO Work Phone: [facility] 05-18-2022 10:12-0500 Heart rate 68 /min Ronan Siegel DO Work Phone: [facility] 05-18-2022 10:12-0500 Respiratory rate 18 /min Ronan Siegel DO Work Phone: [facility] 05-18-2022 10:12-0500 SaO2% (BldA) [Mass fraction] 96 % Ronan Skinnerette DO Work Phone: [facility] 05-18-2022 10:12-0500 Systolic blood pressure 115 mm[Hg] Ronan Couette DO Work Phone: [facility] 05-14-2022 18:38-0500 Body height 172.7 cm Ronan Couette DO Work Phone: [facility] 05-14-2022 18:38-0500 Body mass index (BMI) [Ratio] 34.97 kg/m2 Ronan Couette DO Work Phone: [facility] 05-14-2022 18:38-0500 Body weight 104.33 kg Ronan Skinnerette DO Work Phone: [facility] 12-12-2020 12:49-0400 Diastolic blood pressure 68 mm[Hg] Joon Atkinson MD Work Phone: [facility] 12-12-2020 12:49-0400 Heart rate 72 /min Joon Atkinson MD Work Phone: [facility] 12-12-2020 12:49-0400 Respiratory rate 12 /min Joon Atkinson MD Work Phone: [facility] 12-12-2020 12:49-0400 SaO2% (BldA) [Mass fraction] 95 % Joon Atkinson MD Work Phone: [facility] 12-12-2020 12:49-0400 Systolic blood pressure 108 mm[Hg] Joon Atkinson MD Work Phone: [facility] 12-12-2020 01:30-0400 Body height 172.7 cm Joon Atkinson MD Work Phone: [facility] 12-12-2020 01:30-0400 Body mass index (BMI) [Ratio] 38.01 kg/m2 Joon Atkinson MD Work Phone: [facility] 12-12-2020 01:30-0400 Body temperature 97.59 [degF] Joon Atkinson MD Work Phone: [facility] 12-12-2020 01:30-0400 Body weight 113.4 kg Joon Atkinson MD Work Phone: [facility] 06-20-2020 20:39-0500 BP Diastolic 81 mm[Hg] Mike Rodriguez [facility] 06-20-2020 20:39-0500 BP Systolic 155 mm[Hg] Mike Rodriguez [facility] 06-20-2020 20:39-0500 Pulse (Heart Rate) 88 /min Mike Rodriguez [facility] 06-20-2020 20:39-0500 Pulse Oximetry 95 % Mike Rodriguez [facility] 06-20-2020 16:28-0500 BMI (Body Mass Index) 37.25 kg/m2 Mike Rodriguez [facility] 06-20-2020 16:28-0500 Body weight 111.13 kg Mikeming Rodriguez [facility] 06-20-2020 15:49-0500 Body Temperature 98.2 [degF] Mike Rodriguez [facility] 06-20-2020 15:49-0500 Height 172.7 cm Mikeming Rodriguez [facility] 06-20-2020 15:49-0500 Respiratory Rate 18 /min Mike Rodriguez [facility] 04-04-2020 16:56-0400 BP Diastolic 72 mm[Hg] [facility] 04-04-2020 16:56-0400 BP Systolic 120 mm[Hg] [facility] 04-04-2020 16:56-0400 Pulse (Heart Rate) 67 /min [facility] 04-04-2020 16:56-0400 Pulse Oximetry 98 % [facility] 04-04-2020 16:56-0400 Respiratory Rate 16 /min [facility] 07-03-2018 22:38-0500 Pulse (Heart Rate) 80 /min Benny [facility] 07-03-2018 22:38-0500 Pulse Oximetry 98 % Benny [facility] 07-03-2018 22:38-0500 Respiratory Rate 18 /min Benny [facility] 07-03-2018 18:45-0500 BP Diastolic 85 mm[Hg] [facility] 07-[facility] 18:45-0500 BP Systolic 120 mm[Hg] [facility] 07-03-2018 16:02-0500 BMI (Body Mass Index) 31.32 kg/m2 [facility] 07-03-2018 16:02-0500 Body Temperature 98.29 [degF] [facility] 07-03-2018 16:02-0500 Height 172.7 cm [facility] 07-03-2018 16:02-0500 Weight 93.44 kg [facility] Encounters Encounter Date Encounter Type Care Provider Facility Start: 04-17-2025 End: 04-17-2025 Emergency department patient visit [facility] Facility:[facility] Start: 02-03-2025 Non-patient / Non-visit Dr. Fredo auguste MD -[facility] Work Phone: Start: 02-02-2025 Non-patient / Non-visit Dr. Fredo auguste MD [facility] Work Phone: Start: 02-01-2025 Non-patient / Non-visit Dr. Fredo auguste MD [facility] Work Phone: Start: 02-01-2025 Non-patient / Non-visit [facility] Work Phone: Start: 02-01-2025 ambulatory Rosalva Fowler Facility :[facility] Start: 01-31-2025 End: 02-03-2025 Evaluation and management of inpatient Dr. Rosalva Fowler MD -[facility] Work Phone: Start: 01-31-2025 [facility] Start: 01-31-2025 Non-patient / Non-visit Dr. Rosalva Fowler MD -[facility] Work Phone: Start: 12-06-2024 Non-patient / Non-visit Dr. Michelle Angeles MD [facility] Work Phone: Start: 12-05-2024 Non-patient / Non-visit Dr. Michelle Angeles MD [facility] Work Phone: Start: 12-05-2024 Non-patient / Non-visit Dr. Ean mora DO -[facility] Start: 12-04-2024 ambulatory Michelle Angeles Facility :[facility] Start: 12-04-2024 End: 12-06-2024 Evaluation and management of inpatient Dr. Michelle Angeles MD -Intensive Care Unit Work Phone: Start: 07-31-2024 ambulatory Michelle Angeles Facility :[facility] Start: 07-31-2024 End: 08-01-2024 Evaluation and management of inpatient Michelle Angeles Facility:[facility] Start: 06-09-2022 End: 07-08-2022 Evaluation and management of inpatient LUZ CORRALES [facility] Start: 06-08-2022 End: 07-08-2022 Evaluation and management of inpatient Alaina Baez MD Work Phone: [facility] Comment on above: Schizoaffective diso rder, bipolar type (CMS/HCC) (Primary Dx) Start: 06-08-2022 End: 06-08-2022 Emergency department patient visit LUZ CORRALES [facility] Start: 05-14-2022 Encounter for other general examination VIJAY KRISHNAMURTHY [facility] Start: 05-14-2022 End: 05-18-2022 Evaluation and management of inpatient UNLISTED PROVIDER [facility] Start: 05-14-2022 End: 05-18-2022 Admission to establishment Ronan Siegel DO Work Phone: [facility] Start: 05-14-2022 End: 05-18-2022 Evaluation and management of inpatient Ronan S Robbin DO Work Phone: [facility] Comment on above: Medical clearance fo r psychiatric admission (Primary Dx); Agitation Start: 05-04-2022 End: 05-05-2022 Emergency department patient visit PHYSICIAN SEPULVEDA [facility] Start: 02-16-2022 End: 02-27-2022 Evaluation and management of inpatient JOSE DOMINGUEZ [facility] Start: 02-11-2022 ambulatory LUZ CORRALES [facility] Start: 12-12-2020 End: 12-12-2020 Emergency department patient visit Joon Atkinson MD Work Phone: [facility] Start: 09-04-2020 End: 09-04-2020 Orders Only Jennifer Corea Work Phone: [facility] Start: 07-18-2020 Patient encounter procedure [facility] Start: 06-20-2020 End: 06-20-2020 Emergency department patient visit Mike Rodriguez Work Phone: [facility] Emergency Department Comment on above: Agitation (Primary D x) Start: 06-07-2020 Patient encounter procedure [facility] Start: 04-04-2020 End: 04-04-2020 Emergency department patient visit Joon Atkinson Work Phone: [facility] Emergency Department Comment on above: Homicidal ideation ( Primary Dx); Bipolar 1 disorder (HCC) Start: 02-29-[address] [facility] Start: 02-26-2020 Patient encounter procedure [facility] Start: 01-10-2020 Patient encounter procedure [facility] Start: 12-11-2019 Patient encounter procedure [facility] Start: 07-03-2018 End: 07-04-2018 Emergency department patient visit [facility] Start: 07-03-2018 End: 07-03-2018 Emergency department patient visit Benny Mike [facility] Work Phone: [facility] Emergency [facility] Comment on above: Kidney stone on left side (Primary Dx) Start: 05-31-2017 End: 05-31-2017 Ambulatory [facility] Procedures Date Procedure Procedure Detail Performing Clinician Start: 04-17-2025 SARS-CoV-2, Influenz a & RSV (PCR) Dr. Mame Bright MD Work Phone: Start: 04-17-2025 CT angiography of ch est with contrast Dr. Mame Bright MD Work Phone: Start: 04-17-[address] Mame Bright MD Work Phone: Start: 04-17-[address] Mame Bright MD Work Phone: Start: 04-17-2025 Plain chest X-ray Dr. Rahul Bright MD Work Phone: Start: 02-03-[address] Mame Bright MD Work Phone: Start: 02-02-2025 Serum inorganic phos phate measurement Dr. Mame Bright MD Work Phone: Start: 02-01-2025 Bacterial nucleic ac id assay Dr. Mame Bright MD Work Phone: Start: 02-01-2025 Carbon dioxide measu rement, partial pressure Dr. Mame Bright MD Work Phone: Start: 02-01-2025 Gases blood o2 satur ation only direct michael Dr. Mame Bright MD Work Phone: Start: 02-01-2025 Measurement of parti al pressure of oxygen in blood Dr. Mame Bright MD Work Phone: Start: 02-01-[address] Mame Bright MD Work Phone: Start: 02-01-[address] Mame Bright MD Work Phone: Start: 01-31-2025 Urnls dip stick/tabl et reagent auto microscopy Dr. Mame Bright MD Work Phone: Start: 01-31-2025 Carbon dioxide measu rement, partial pressure Dr. Mame Bright MD Work Phone: Start: 01-31-2025 Gases blood o2 satur ation only direct michael Dr. Mame Bright MD Work Phone: Start: 01-31-2025 Measurement of parti al pressure of oxygen in blood Dr. Mame Bright MD Work Phone: Start: 01-31-[address] Mame Bright MD Work Phone: Start: 01-31-2025 X-ray of chest, PA a nd lateral views Dr. Mame Bright MD Work Phone: Start: 01-31-[address] Mame Bright MD Work Phone: Start: 01-31-[address] Jm Bright MD Work Phone: Start: 01-31-2025 Legionella pneumophi la antigen assay Dr. Mame Birght MD Work Phone: Start: 01-31-[address] Mame Bright MD Work Phone: Start: 01-31-2025 End: 01-31-2025 Streptococcus pneumoniae antigen assay Dr. Maem Bright MD Work Phone: Start: 01-31-2025 Plain X-ray of shoulder Dr. Mame Bright MD Work Phone: Start: 12-06-[address] Mame Bright MD Work Phone: Start: 12-05-2024 Iadna-dna/rna gi pth gn multiplex probe tq 6-11 Dr. Mame Bright MD Work Phone: Start: 12-05-[address] Mame Bright MD Work Phone: Start: 12-05-2024 Plain chest X-ray Dr. Rahul Bright MD Work Phone: Start: 12-04-[address] Jm Bright MD Work Phone: Start: 12-04-2024 Nucleic [...] Drug screen quantita tive lithium Kalli R Escrow Closer DO Work Phone: Start: 06-16-2022 EXTRA TUBES [...] BLOOD Braulio Albrecht MD Work Phone: Start: 06-09-2022 Sars-cov-2 detection by dna/rna Palma Thornwood DO Work Phone: Start: 06-09-2022 Basic metabolic pane l calcium total Palma Thornwood DO Work Phone: Start: 06-09-2022 CBC W Auto Different ial panel - [facility] Work Phone: Start: 06-09-2022 Drug screen quantita tive lithium [facility] DO Work Phone: Start: 06-09-2022 Ethanol [Mass/volume ] in Serum or Plasma Palma Thornwood DO Work Phone: Start: 06-09-2022 EXTRA TUBES [...] Work Phone: Start: 05-14-2022 DARK GREEN TOP Yesica austin S Couette DO Work Phone: Start: 05-14-2022 GOLD TOP Ronan Skinnerette DO Work Phone: Start: 05-14-2022 LAVENDER TOP Ronan Fermin Couette DO Work Phone: Start: 05-14-2022 LIGHT BLUE TOP Alexande r S Couette DO Work Phone: Start: 05-14-2022 LIGHT GREEN TOP Alexand mana S Brodyette DO Work Phone: Start: 05-14-2022 Lipid panel Vijay magdaleno MD Work Phone: Start: 05-14-2022 RAINBOW DRAW Ronan Siegel DO Work Phone: Start: 05-14-2022 THYROID CASCADE Vijay Krishnamurthy MD Work Phone: Start: 05-14-2022 Lipid 1996 panel - S lulu or Plasma Ronan Siegel DO Work Phone: Start: 12-12-2020 Acetaminophen blood measurement Jamie Toney PA-C Work Phone: Start: 12-12-2020 Blood ethanol measurement Jamie Toney PA-C Work Phone: Start: 12-12-2020 End: 12-12-2020 Comprehensive metabolic panel Jamie Toney PA-C Work Phone: Start: 12-12-2020 Drug screen quantita tive lithium Jamie ROMERO-C Work Phone: Start: 12-12-2020 MITCHELL TOP Joon Jose Atkinson MD Work Phone: Start: 12-12-2020 PINK TOP Joon Atkinson MD Work Phone: Start: 12-12-2020 RAINBOW DRAW Joon Atkinson MD Work Phone: Start: 12-12-2020 Salicylate blood measurement Jamie Toney PA-C Work Phone: Start: 06-20-2020 Drugs of abuse urine screening test Pamela Maldonado Work Phone: Start: 06-20-2020 Ethanol [Mass/volume ] in Serum or Plasma Pamela Maldonado Work Phone: Start: 06-20-2020 LIGHT GREEN TOP Mike Rodriguez Work Phone: Start: 06-20-2020 Onsted [Moles/volum e] in Serum or Plasma Pamela [...] 07-03-2018 End: 07-03-2018 Standard chest X-ray Fredo Bullard Janineclara clayton Work Phone: Start: 07-03-2018 End: 07-03-2018 [...] Start: 07-03-2018 End: 07-03-2018 MITCHELL TOP Benny Corcoran Work Phone: Start: 07-03-2018 End: 07-03-2018 Lactate [Moles/volume] in Serum or Plasma Fredo Doty Work Phone: Start: 07-03-2018 End: 07-03-2018 LAVENDER TOP Benny Corcoran Work Phone: Start: 07-03-2018 End: 07-03-2018 LIGHT BLUE TOP Benny Corcoran Work Phone: Start: 07-03-2018 End: 07-03-2018 LIGHT GREEN TOP Benny Corcoran Work Phone: Start: 07-03-2018 End: 07-03-2018 MINT GREEN TOP Benny Corocran Work Phone: Start: 07-03-2018 End: 07-03-2018 RAINBOW DRAW Benny Corcoran Work Phone: Plan of Treatment Date Care Activity Detail Author Start: 05-14-2027 Fasting lipid profile LIPID SCREENING [facility] Start: 05-14-2027 Lipid panel Cholesterol Screening (Lipid Panel) [facility] Start: 04-17-2025 [facility] Start: 02-03-2025 Patient discharge [facility] Start: 02-03-2025 [facility] Start: 02-02-2025 Care planning and problem solving actions [facility] Start: 02-02-2025 Electrocardiographic procedure [facility] Start: 02-02-2025 [facility] Start: 02-01-2025 Vital signs measurements [facility] Start: 02-01-2025 Vital signs measurements [facility] Start: 02-01-2025 Vital signs measurements [facility] Start: 02-01-2025 Vital signs measurements [facility] Start: 02-01-2025 Vital signs measurements [facility] Start: 02-01-2025 Vital signs measurements [facility] Start: 02-01-2025 Elevation of affected extremity [facility] Start: 02-01-2025 Notification of physician [facility] Start: 02-01-2025 Patient education [facility] Start: 02-01-2025 Vital signs measurements [facility] Start: 02-01-2025 Vital signs measurements [facility] Start: 02-01-2025 Vital signs measurements [facility] Start: 02-01-2025 Respiratory secretion precautions [facility] Start: 02-01-2025 Vital signs measurements [facility] Start: 02-01-2025 Following clinical pathway protocol [facility] Start: 02-01-2025 Aspiration precautions [facility] Start: 02-01-2025 Assessment of risk of venous thromboembolism [facility] Start: 02-01-2025 Care regimes management [facility] Start: 02-01-2025 Elevation of head of bed [facility] Start: 02-01-2025 Fall prevention [facility] Start: 02-01-2025 Incentive spirometry [facility] Start: 02-01-2025 Insertion of catheter into peripheral vein [facility] Start: 02-01-2025 Introduction of urinary catheter [facility] Start: 02-01-2025 Measuring intake and output [facility] Start: 02-01-2025 Methicillin resistant Staphylococcus aureus (MRSA) DNA [Presence] in Nose by DALIA with probe detection [facility] Start: 02-01-2025 Notification of physician [facility] Start: 02-01-2025 Oxygen therapy [facility] Start: 02-01-2025 Patient education [facility] Start: 02-01-2025 Physiotherapy of chest [facility] Start: 02-01-2025 Providing care according to standard [facility] Start: 02-01-2025 Provision of activity privileges [facility] Start: 02-01-2025 Referral for physical therapy [facility] Start: 02-01-2025 Referral to occupational therapist [facility] Start: 02-01-2025 Referral to service [facility] Start: 02-01-2025 Speech therapy assessment [facility] Start: 02-01-2025 Taking nasal swab [facility] Start: 02-01-2025 Tobacco use cessation education [facility] Start: 02-01-2025 End: 02-01-2025 [facility] Start: 02-01-2025 Electrocardiographic procedure [facility] Start: 02-01-2025 Gas panel - Arterial blood [facility] Start: 02-01-2025 Vital signs measurements [facility] Start: 02-01-2025 Consultation [facility] Start: 02-01-2025 Inhalation therapy procedure [facility] Start: 02-01-2025 Patient referral to dietitian [facility] Start: 01-31-2025 Bacteria identified in Sputum by Culture [facility] Start: 01-31-2025 Legionella pneumophila Ag [Presence] in Urine [facility] Start: 01-31-2025 Respiratory pathogens DNA and RNA panel - Respiratory specimen by DALIA with probe detection [facility] Start: 01-31-2025 Streptococcus pneumoniae antigen assay [facility] Start: 01-31-2025 Verification routine [facility] Start: 01-31-2025 Admission procedure [facility] Start: 01-31-2025 [facility] Start: 01-31-2025 Bacteria identified in Blood by Culture Blood Culture [facility] Start: 01-31-2025 Blood culture Blood Culture [facility] Start: 01-31-2025 Plain X-ray of shoulder Shoulder min 2 Views [facility] Start: 01-31-2025 XR Shoulder GE 2 Views [facility] Start: 01-31-2025 Continuous positive airway pressure ventilation treatment [facility] Start: 12-06-2024 Patient discharge [facility] Start: 12-05-2024 Following clinical pathway protocol [facility] Start: 12-05-2024 Enteric precautions [facility] Start: 12-05-2024 Enteric Bacteriology Enteric Bacteriology [facility] Start: 12-05-2024 Care planning and problem solving actions [facility] Start: 12-04-2024 Consultation [facility] Start: 12-04-2024 Following clinical pathway protocol [facility] Start: 12-04-2024 Oxygen therapy [facility] Start: 12-04-2024 Provision of activity privileges [facility] Start: 12-04-2024 Assessment of risk of venous thromboembolism [facility] Start: 12-04-2024 Insertion of catheter into peripheral vein [facility] Start: 12-04-2024 Measuring intake and output [facility] Start: 12-04-2024 Providing care according to standard [facility] Start: 12-04-2024 Referral to occupational therapist [facility] Start: 12-04-2024 Referral to service [facility] Start: 12-04-2024 Vital signs measurements [facility] Start: 12-04-2024 [facility] Start: 12-04-2024 Bacteria identified in Blood by Culture Blood Culture [facility] Start: 12-04-2024 Bacteria identified in Urine by Culture Urine Culture [facility] Start: 12-04-2024 Blood culture Blood Culture [facility] Start: 12-04-2024 Admission procedure [facility] Start: 12-04-2024 Hospital admission, emergency, from emergency room, medical nature [facility] Start: 12-04-2024 End: 12-04-2024 [facility] Start: 06-30-2023 Hypertension/CHF/CAD Annual BMP Blood Test Hypertension/CHF/CAD Annual BMP Blood Test [facility] Start: 02-16-2023 Urine screening for protein Diabetes: Annual Urine Protein Test (Microalbumin) [facility] Start: 06-08-2022 Adolescent depression screening assessment Depression Screening [facility] Start: 06-08-2022 Diabetes: Annual Retina Eye Exam Diabetes: Annual Retina Eye Exam [facility] Start: 06-08-2022 Diabetic foot examination Diabetes: Annual Foot Exam [facility] Start: 06-08-2022 Hemoglobin A1c measurement Diabetes: Blood Sugar Control Test (HGBA1C) [facility] Start: 06-08-2022 Hepatitis C screening Hepatitis C Screening [facility] Start: 06-08-2022 HIV screening HIV Screening [facility] Start: 06-08-2022 Screening for malignant neoplasm of colon Colorectal Cancer Screening: Colonoscopy [facility] Start: 06-08-2022 Social Influencers of Health Screening Social Influencers of Health Screening [facility] Start: 02-26-2022 Influenza vaccination Influenza Vaccine (#1) [facility] Start: 02-26-2022 Influenza vaccination given INFLUENZA VACCINE (#[facility]) [facility] Start: 11-11-2021 COVID-19 Vaccine (5 - Booster) COVID-19 Vaccine (5 - Booster) [facility] Start: 02-26-2021 Influenza vaccination Sequential Influenza Vaccine (Season Ended) [facility] Start: 02-27-2020 Influenza vaccination given Sequential Influenza Vaccine (#1) [facility] Start: 01-31-2020 Administration of herpes zoster vaccine Zoster Vaccines (1 of 2) [facility] Start: 01-31-2020 Screening for malignant neoplasm of colon [facility] Start: 01-31-2020 Zoster vaccine hzv live for subcutaneous use ZOSTER (SHINGLES) VACCINE (1 of 2) [facility] Start: 01-31-2020 Zoster Vaccines (1 of 2) Zoster Vaccines (1 of 2) [facility] Start: 02-26-2018 Influenza vaccination given SEQUENTIAL INFLUENZA VACCINE (#1) [facility] Start: 2015 Screening for malignant neoplasm of colon [facility] Start: 11-19-2012 HbA1c (Bld) [Mass fraction] A1C [facility] Start: 11-19-2012 Hemoglobin A1c measurement A1C [facility] Start: 1989 DTaP,Tdap,and Td Vaccines (1 - Tdap) DTaP,Tdap,and Td Vaccines (1 - Tdap) [facility] Start: 01-31-1988 ANNUAL WELLNESS VISIT ANNUAL WELLNESS VISIT [facility] Start: 01-31-1988 Hepatitis C antibody, confirmatory test Hepatitis C Screening [facility] Start: 01-31-1988 Hepatitis C screening Hepatitis C Screening [facility] Start: 1986 COVID-19 Vaccine (1 of 2) COVID-19 Vaccine (1 of 2) [facility] Start: 1985 HIV screening HIV Screening [facility] Start: 1982 COVID-19 Vaccine (1) COVID-19 Vaccine (1) [facility] Start: 1982 Depression screening using PHQ-9 (Patient Health Questionnaire 9) score DEPRESSION SCREENING [facility] Start: 1981 Administration of diphtheria + tetanus + acellular pertussis vaccine DTAP/TDAP/TD VACCINE (1 - Tdap) [facility] Start: 01-31-1980 Albumin DL <= 20 mg/L (U) [Mass/Vol] Urine Microalbumin [facility] Start: 01-31-1980 Diabetic foot examination Foot Exam [facility] Start: 01-31-1980 Microalbumin measurement, urine, quantitative Urine Microalbumin [facility] Start: 01-31-1980 Ophthalmic examination and evaluation Ophthalmology Exam [facility] Start: 01-31-1976 Pneumococcal Vaccine: Ped or At-Risk (1 of 2 - PPSV23) Pneumococcal Vaccine: Ped or At-Risk (1 of 2 - PPSV23) [facility] Start: 01-31-1976 Pneumococcal Vaccine: Pediatrics (0 to 5 Years) and At-Risk Patients (6 to 64 Years) (1 - PCV) Pneumococcal Vaccine: Pediatrics (0 to 5 Years) and At-Risk Patients (6 to 64 Years) (1 - PCV) [facility] Start: 1973 History and physical examination, annual for health maintenance Wellness Visit [facility] Start: 1970 COVID-19 VACCINE (#1) COVID-19 VACCINE (#1) [facility] Start: 1970 Hepatitis B Vaccines (1 of 3 - 3-dose series) Hepatitis B Vaccines (1 of 3 - 3-dose series) [facility] Start: 1970 Low dose computed tomography of chest without contrast Low-dose CT Lung Cancer Screen [facility] Start: 1970 Prostate specific antigen measurement PSA Level [facility] Start: 1970 Tetanus vaccination [facility] End: 04-04-2020 12 lead ECG ECG 12 Lead ECG STAT Once for 1 Occurrences starting 04/04/2020 until 04/04/2020 [facility] Comment on above: Once for 1 Occurrences starting 04/04/20 until 04/04/2020 Alanine aminotransfe rase [Enzymatic activity/volume] in Serum or Plasma [facility] Albumin [Mass/volume ] in Serum or Plasma [facility] Alkaline phosphatase [Enzymatic activity/volume] in Serum or Plasma [facility] Anion gap in Serum or Plasma [facility] Bacteria identified in Sputum by Respiratory culture [facility] Bacteria identified in Sputum by Respiratory culture [facility] Bilirubin, total measurement [facility] BUN/Creatinine ratio [facility] Calcium [Mass/volume ] in Serum or Plasma [facility] Carbon dioxide, tota l [Moles/volume] in Central venous blood [facility] Creatinine [Mass/vol ume] in Serum or Plasma [facility] Erythrocyte mean cor puscular volume determination [facility] Glucose [Mass/volume ] in Serum or Plasma POCT glucose Point of Care Testing Routine 0600 until discontinued starting 05/16/2022 [facility] Comment on above: 0600 until discontinued starting 022 Glucose [Mass/volume ] in Serum or Plasma [facility] Hematocrit [Volume F raction] of Blood [facility] Hemoglobin [Mass/vol ume] in Blood [facility] Leukocytes [#/volume ] in Blood [facility] End: 05-18-2022 [place] level [place] level Lab Routine One Time for 1 Occurrences starting 05/18/2022 until 05/18/2022 [facility] Work Phone: Comment on above: One Time for 1 Occurrences starting 04/29 until 05/18/2022 Mean corpuscular hem oglobin concentration determination [facility] Mean corpuscular hem oglobin determination [facility] Measurement of renal function [facility] Microscopic observat ion [Identifier] in Unspecified specimen by Gram stain [facility] Microscopic observat ion [Identifier] in Unspecified specimen by Gram stain [facility] Neutrophil count [facility] Neutrophil percent differential count [facility] Nucleic acid assay [facility] Patient Education [facility] Work Phone: Patient referral [facility] Work Phone: Platelets [#/volume] in Blood [facility] Potassium measurement [facility] Procalcitonin [Mass/ volume] in Serum or Plasma by Immunoassay [facility] Red blood cell count [facility] Red cell distributio n width determination [facility] Serum chloride measurement [facility] Sodium measurement [facility] Thyroid [place] [facility]On 05/15/2022 until discontinued, 1 completed [facility] [employer] Work Phone: Comment on above: 05/15/2022 until discontinued, 1 complet ed Total protein measurement [place] Urea nitrogen [Mass/ volume] in Serum or Plasma [facility] Urine culture [facility] Immunizations Immunization Date Immunization Notes Care Provider Easton chapa 04-09-2011 influenza virus vacc ine, unspecified formulation Alaina Baez MD Work Phone: [facility] Payers Date Payer Category Payer Self-pay 2022 Medicaid [id number] 2017 Medicaid [id number] 2017 Medicaid MEDICAID [facility] [id number] 2017-Present [id number] 1970 Unknown [id number] [id number] 1970 Unknown [id number] [id number] 1970 Unknown [id number] 2.16.840.1.280042.3.579.2.597 1970 Unknown [id number] 2.16.840.1.471932.3.579.2.597 1970 Unknown [id number] 2.16.840.1.548038.3.579.2.597 1970 Unknown [id number] 2.16.840.1.758039.3.579.2.597 1970 Unknown [id number] 2.16.840.1.412353.3.579.2.597 1970 Unknown [id number] 2.16.840.1.595592.3.579.2.297 1970 Unknown [id number] 2.16.840.1.485432.3.579.2.900 1970 Unknown [id number] 2.16.840.1.487412.3.579.2.900 1970 Unknown [id number] 2.16.840.1.973369.3.579.2.1143 1970 Unknown [id number] 2.16.840.1.054438.3.579.2.1143 Unknown [id number] 2.16.840.1.616562.3.579.2.462 Unknown [id number] 2.16.840.1.878573.3.579.2.462 Unknown [id number] 2.16.840.1.862155.3.579.2.462 Unknown [id number] 2.16.840.1.392130.3.579.2.462 Unknown [id number] 2.16.840.1.016578.3.579.2.462 Unknown [id number] 2.16.840.1.200327.3.579.2.462 Unknown [id number] 2.16.840.1.245568.3.579.2.462 Unknown [id number] Unknown [id number] Unknown [id number] Unknown [id number] Unknown [id number] Unknown [id number] Unknown [id number] Unknown [id number] Social History Date Type Detail Facility Start: 01-13-2017 End: 04-17-2025 Tobacco smoking status NDIS Current every day smoker [facility] Phone: Start: 01-13-2017 End: 06-09-2022 Cigarettes smoked current (pack per day) - Reported [facility] Phone: Start: 1970 Sex Assigned At Not on file [facility] Work Phone: Start: 04-04-2020 End: 12-12-2020 Tobacco use and exposure Never used [facility] Start: 04-04-2020 Alcohol intake Current drinke r of alcohol (finding) [facility] Start: 01-11-2017 Alcohol Comment drink every co uple of days, pt lives in a snf and this rn unsure if this is correct [facility] Start: 05-04-2022 End: 06-08-2022 Exposure to SARS-CoV-2 (event) Not sure [facility] Start: 12-12-2020 End: 06-09-2022 Alcohol intake Ex-drinker (finding) [facility] History of tobacco use Cigarette Smoker [facility] Start: 1970 Sex Assigned At Male W [facility] Sex Male [facility] Goals Date Patient Goal Desired Activity /State Functional Status Date Assessment Result Facility 02-03-2025 Functional status Stand and pivot [facility] Work Phone: 12-06-2024 Functional status Chair [facility] Work Phone: Mental Status Date Assessment Result Facility 02-03-2025 Cognitive function Voice/Name [facility] Work Phone: 12-06-2024 Cognitive function Voice/Name [facility] Work Phone: Clinical Notes 12-12-2020 to 04-17-2025 Note Date & Type Note Facility 04-17-2025 Discharge summary Note Date/Time April 17, 2025 2:18pm [facility] Medical Records Department [address] [place] [address] Emergency Department Summary 04/17/25 MR#: [id number] Acct: [id number] Name: RIGO GARCIA Rep #:[id number] : 1970 55 From: Ovi Petit MD PCP: Dr. Mame Bright MD Status:REG ER Location: ED HPI History of Present Illness Chief Complaint: Shortness of Breath Narrative Narrative: 55-year-old [facility] with shortness of breathand low pulse ox. It was reported that he had pulse ox in the 80s. He is a smoker. He denies any fevers or chills, no cough. He states that occasionally he [facility] oxygen [facility]. No exacerbating or alleviating factors. He states that he has been at this particular [facility] facility for years. [facility] Medical History Hemiplegia and hemiparesis following cerebral infarction affecting right dominant side Dysarthria following cerebral infarction COPD (chronic obstructive pulmonary disease) Nicotine dependence, cigarettes, uncomplicated Violent behavior Unspecified lack of coordination Acute bronchitis, unspecified Pneumonitis due to inhalation of food and vomit Peripheral vascular disease, unspecified Need for assistance with personal care Gastro-esophageal reflux disease without esophagitis Benign prostatic hyperplasia with lower urinary tract symptoms CVA (cerebral vascular accident) Depression Diabetes Bipolar [...] 12/03/24 History release (Adult Low Dose Aspirin) buspirone 10 mg tablet 10 mg PO TID BIPOLAR 5 12/03/24 History calcium carbonate (Leslye-[place] 600 mg PO Q6H PRN hear tburn 07/31/24 11/26/24 History Heartburn Chew) cholecalciferol (vitamin D3) 1,250 1,250 mcg PO QWEEK SUPPLEMENT 07/31/24 11/27/24 History mcg (50,000 unit) capsule gabapentin 100 mg capsule 200 mg PO TID NEUROPATHIC PA IN 07/31/24 12/03/24 History lorazepam 1 mg tablet (Ativan) 1 mg PO TID agitation 0 07/31/24 12/03/24 History metformin 1,000 mg tablet 1,000 mg PO BID DM 07/31/24 12/03/24 History sennosides 8.6 mg-docusate sodium 1 tab-cap PO DAILY C ONSTIPATION 07/31/24 12/03/24 History 50 mg tablet (Colace 2-In-1) trazodone 50 mg tablet 50 mg PO QHS BIPOLAR 5 12/03/24 History vortioxetine 20 mg tablet 20 mg PO DAILY DEPRESSION 12/03/24 History (Trintellix) atorvastatin 10 mg tablet (Lipitor) 10 mg PO QHS 01/31 Unknown History lorazepam 1 mg tablet (Ativan) 1 mg PO Q8H 01/31/25 Un known History albuterol sulfate 2.5 mg/3 mL 2.5 mg (3 mL) inhalation Q2H PRN 02/03/25 Unknown Rx (0.083 %) solution for nebulization PRN SHORTNESS OF B REATH #0 mL guaifenesin 600 mg tablet, 1,200 mg (2 x 600 mg) PO BI D #20 02/03/25 Unknown Rx extended release 12 hr (Mucinex) tabs insulin glargine 100 unit/mL (3 10 unit (0.1 mL) subcu t QPM #3 mL 02/03/25 Unknown Rx mL) subcutaneous pen (Lantus Solostar U-100 Insulin) insulin lispro 100 unit/mL See Protocol subcut ACHS #0 mL 02/03/25 Unknown Rx subcutaneous pen (Humalog KwikPen (U-100) Insulin) ipratropium 0.5 mg-albuterol 3 mg 3 ml inhalation Q4HW A.RT #0 mL 02/03/25 Unknown Rx (2.5 mg base)/3 mL nebulization soln prednisone 20 mg tablet 40 mg (2 x 20 mg) PO DAILY 7 days 04/17/25 Unknown Rx #14 tabs Allergy/AdvReac Type Severity Reaction Status Date / Time ibuprofen Allergy Rash Verified 04/17/25 09:30 Penicillins Allergy RASH Verified 04/17/25 09:30 Surgical History No history of previous surgery Social History housing: snf Smoking Status: Current every day smoker tobacco type: cigarettes alcohol intake: never substance use type: does not use ROS ROS ED ROS Narrative Review of systems positive for reported low pulse ox. Occasional cough with shortness of breath. No chest pain. No fevers or chills. No exacerbating or alleviating factors. History and physical mildly limited secondary to schizophrenia and bipolar disorder. Review of Systems ROS Unobtainable: due to mental condition EXAM Physical Exam Narrative Exam Narrative: Afebrile. Vital signs noted. Nontoxic-appearing. Cardiovascular examination feels regular rate and rhythm. Lungs are clear to auscultation bilaterally withmild tachypnea but no acute distress. Decreased breath sounds bilateral bases. Abdomen soft and nontender with positive bowel sounds. Neurological examinationnonfocal, nonlateralizing. Mildly flat affect. Continually asks for food. Const Vital Signs: 04/17/25 09:23 04/17/25 09:26 04/17/25 09:28 Temperature 97.5 F L 97.5 F L Temperature Source Oral Oral Pulse Rate 84 82 Respiratory Rate 20 H 20 H Respiratory Effort Non-Labored Respiratory Depth Normal Respiratory Pattern Tachypnea Blood Pressure 107/75 107/75 Blood Pressure Mean 85 85 Pulse Ox 87 90 Oxygen Delivery Method Room Air Nasal Cannula Room Air Oxygen Flow Rate (L/min) 3 04/17/25 09:41 04/17/25 09:42 04/17/25 09:45 Temperature Temperature Source Pulse Rate 80 Respiratory Rate 16 Respiratory Effort Respiratory Depth Respiratory Pattern Blood Pressure 100/72 Blood Pressure Mean 81 Pulse Ox 97 97 Oxygen Delivery Method Nasal Cannula Oxygen Flow Rate (L/min) 3 04/17/25 09:47 04/17/25 10:00 04/17/25 10:15 Temperature Temperature Source Pulse Rate 80 81 Respiratory Rate 16 20 H Respiratory Effort Respiratory Depth Respiratory Pattern Blood Pressure 104/75 106/78 Blood Pressure Mean 85 88 Pulse Ox Oxygen Delivery Method Oxygen Flow Rate (L/min) 04/17/25 10:21 04/17/25 10:30 04/17/25 10:45 Temperature Temperature Source Pulse Rate 82 78 88 Respiratory Rate 22 H 15 Respiratory Effort Respiratory Depth Respiratory Pattern Blood Pressure 120/82 H 114/80 126/82 H Blood Pressure Mean 94 88 96 Pulse Ox 88 Oxygen Delivery Method Room Air Oxygen Flow Rate (L/min) 04/17/25 11:00 04/17/25 11:15 04/17/25 11:15 Temperature Temperature Source Pulse Rate 86 80 Respiratory Rate 20 H 18 Respiratory Effort Respiratory Depth Respiratory Pattern Blood Pressure 120/82 H 117/89 H 117/89 H Blood Pressure Mean 95 97 97 Pulse Ox 88 Oxygen Delivery Method Oxygen Flow Rate (L/min) 04/17/25 11:30 04/17/25 11:30 04/17/25 11:45 Temperature Temperature Source Pulse Rate 74 Respiratory Rate 22 H Respiratory Effort Respiratory Depth Respiratory Pattern Blood Pressure 109/61 109/61 114/78 Blood Pressure Mean 75 75 89 Pulse Ox Oxygen Delivery Method Oxygen Flow Rate (L/min) 04/17/25 12:00 04/17/25 12:15 04/17/25 12:30 Temperature Temperature Source Pulse Rate 88 86 90 Respiratory Rate 20 H 16 18 Respiratory Effort Respiratory Depth Respiratory Pattern Blood Pressure 127/81 H 129/90 H 114/92 H Blood Pressure Mean 94 98 99 Pulse Ox 89 94 89 Oxygen Delivery Method Oxygen Flow Rate (L/min) 04/17/25 12:45 04/17/25 13:00 Temperature Temperature Source Pulse Rate 94 99 Respiratory Rate 23 H 20 H Respiratory Effort Respiratory Depth Respiratory Pattern Blood Pressure 118/89 H Blood Pressure Mean 100 Pulse Ox 93 93 Oxygen Delivery Method Room Air Oxygen Flow Rate (L/min) MDM MDM MDM Narrative Medical decision making narrative: Differential diagnosis includes but not limited to pneumonia versus pneumothoraxversus COPD exacerbation versus chronic respiratory failure. I have low suspicion for pulmonary embolism based on the patient history and physical. He is not tachycardic. Comprehensive workup was pursued. He was given a DuoNeb aerosolized treatment. Chest x-ray will be obtained as well as basic laboratorywork. I have low suspicion for sepsis because he is not meeting SIRS criteria currently. He is hypoxic however. VBG will be obtained to check for CO2 retention. EKG was obtained and interpreted by myself independently as 79 bpm of normal sinus rhythm without acute ST changes. No STEMI. I reviewed his laboratory work and he has normal white count of 6.0 with hemoglobin 12.5, hematocrit 41.1,platelet count 243. BMP grossly normal except for glucose of 101 with a normal anion gap of 11, BUN 15, creatinine normal at 1.09. BNP to look for new onset congestive heart failure is normal at less than 36. I think this is probably more of a COPD exacerbation. Patient administered DuoNeb aerosolized treatment. Afterwards, pulse ox at rest remains 88 to 90% on room air. He states he usually gets up to a wheelchair given his hemiplegia from a stroke. Given his continued hypoxia, concern would be for pulmonary embolism rule out. CTA was obtained. I reviewed the radiology report of the CTA of the chest and there is no evidenceof pneumonia, no pulmonary embolism. Upon repeat examination, patient is sitting upright, eating a sandwich. His pulse ox ranges from 88% to 93% on room air. Patient states he wears oxygen at the [facility] when he gets into trouble. He was told that he should use it more frequently. I discussed the patient with his legal guardian,his sister Chris Garcia who is agreeable to him returning to the [facility]. He was instructed that should his pulse ox go below 88% on room air, he should wear his nasal cannula oxygen as I feel that 88 to 90% may be his baseline. He will be given a burst of steroids for the next 7 days. He had been given a loading dose here. He was told that they should monitor his blood sugaras well. I feel he can be discharged as he has oxygen at the [facility]. Return instructions were reviewed. Disposition is discharged in stable condition. History & Record Review Discussion w/independent historian: Patient Lab Data Attestation: I reviewed the patient's lab results. Labs: Laboratory Results - last 24 hr 04/17/25 09:39 WBC 6.0 RBC 4.78 Hgb 12.5 L Hct 41.1 MCV 86.0 MCH 26.2 L MCHC 30.4 L RDW Std Deviation 48.9 H RDW Coeff of Thomas 15.6 H Plt Count 243 MPV 9.3 Immature Gran % (Auto) 0.300 Neut % (Auto) 62.0 Lymph % (Auto) 23.6 [place] % (Auto) 9.5 Eos % (Auto) 3.8 Baso % (Auto) 0.8 Absolute Neuts (auto) 3.7 Absolute Lymphs (auto) 1.42 Nucleated RBC % 0 Sodium 142 Potassium 4.2 Chloride 101 Carbon Dioxide 29.9 Anion Gap 11 BUN 15 Creatinine 1.09 Estim Creat Clear Calc 88.75 Est GFR (MDRD) Non-Af 80 BUN/Creatinine Ratio 13.6 Glucose 101 H Calcium 9.9 NT pro BNP II < 36 ABG Data ABG results: ABG 04/17/25 10:03 Specimen Type MARTI Sample Site Not entered O2 % 3.0 VBG pH 7.44 H VBG pO2 59 H VBG HCO3 37 H VBG Total CO2 39 H VBG O2 Sat (Calc) 90 H VBG Base Excess 13 H POC Mix VBG pCO2 Pt Tmp 54.7 H O2 Delivery Device Cannula Radiography Diagnostic Testing: Clinical Impression(s) from Imaging Studies Chest X-Ray 04/17/25 09:38 IMPRESSION: No acute process is identified in the chest. Reading [facility] Chest CTA 04/17/25 11:14 IMPRESSION: No pulmonary embolism. No acute chest abnormality. Reading Location: [address] Discharge Plan Triage Chief Complaint: Shortness of Breath ED Provider: Ovi Petit Dx/Rx/DC Orders Clinical Impression: COPD exacerbation, SOB (shortness of breath) Instructions: ED COPD Flare Prescriptions: New prednisone 20 mg tablet 40 mg PO DAILY 7 Days Qty: 14 0RF No Action atorvastatin [Lipitor] 10 mg tablet 10 mg PO QHS lorazepam [Ativan] 1 mg tablet 1 mg PO Q8H ipratropium-albuterol 0.5 mg-3 mg(2.5 mg base)/3 mL Solution For Nebulization 3 ml inhalation Q4HWA.RT Qty: 0 0RF albuterol sulfate 2.5 mg /3 mL (0.083 %) Solution For Nebulization 2.5 mg inhalation Q2H PRN PRN (Reason: SHORTNESS OF BREATH ) Qty: 0 0RF insulin lispro [Humalog KwikPen Insulin] 100 unit/mL Insulin Pen See Protocol subcut ACHS Qty: 0 0RF Protocol: 3. Sliding Scale Insulin Med Dosing Condition: 150-189 mg/dl = 1 unit Condition: 190-229 mg/dl = 2 units Condition: 230-269 mg/dl = 3 units Condition: 270-309 mg/dl = 4 units Condition: 310-349 mg/dl = 5 units Condition: 350-399 mg/dl = 6 units Condition: 400-449 mg/dl = 7 units Condition: Greater than 449 call physician Protocol Text: - Use for Total Daily Dose of Insulin 37-55 units - Obsese, infected, or steroid patients MEDIUM DOSING ALGORITHIM guaifenesin [Mucinex] 600 mg tablet extended release 12hr 1,200 mg PO BID Qty: 20 0RF insulin glargine [Lantus Solostar U-100 Insulin] 100 unit/mL (3 mL) insulin pen 10 unit subcut QPM Qty: 3 0RF Trintellix 20 mg tablet 20 mg PO DAILY sennosides-docusate sodium [Colace 2-In-1] 8.6-50 mg tablet 1 tab-cap PO DAILY aripiprazole [Abilify] 15 mg tablet 15 mg PO DAILY aspirin [Adult Low Dose Aspirin] 81 mg tablet,delayed release (DR/EC) 81 mg PO DAILY lorazepam [Ativan] 1 mg tablet 1 mg PO TID buspirone 10 mg tablet 10 mg PO TID gabapentin 100 mg capsule 200 mg PO TID trazodone 50 mg tablet 50 mg PO QHS cholecalciferol (vitamin D3) 1,250 mcg (50,000 unit) capsule 1,250 mcg PO QWEEK Rx Instructions: QMONDAY metformin 1,000 mg tablet 1,000 mg PO BID Leslye-[place] Heartburn Chew 300 mg (750 mg) tablet,chewable 600 mg PO Q6H PRN (Reason: heartburn) acetaminophen [Aminofen] 325 mg tablet 650 mg PO Q4H PRN (Reason: fever or pain) Primary Care Provider: Mame Bright Referrals: Mame Bright MD [Primary Care Provider, Medical] - 3-5 Days Activity Restrictions/Additional Instructions: Use your oxygen per nasal cannula when your pulse ox is below 88% on room air. You have DuoNeb aerosolized treatments that you can use every 4 hours as needed. You should use them every 4-6 hours as needed especially over the next 48 hours. You are given a prescription for a steroid burst. Make sure that your blood sugars are monitored as they may increase while using prednisone. Return with new or worsening symptoms. Print Language: Tuvaluan Disposition Disposition: [facility] Facility Discharge Location: [place] What to do if you have Problems For any increased pain, shortness of breath, bleeding, nausea or vomiting, chestpain, or any unexpected problems, contact your Primary Care Provider. Call [facility] ([phone]) or report to the closest Emergency Room. Call 911 if necessary. 04/17/25 [id number] <Electronically signed by Ovi Petit MD> Cosigner Signature (if applicable): CC: Dr. Mame Bright MD ~ Signed [facility] Work Phone: [phone] 625-953610-21-2025 Discharge summary [facility] Medical Records Department [address] [place] [address] Emergency Department Summary 04/17/25 MR#: [id number] Acct: [id number] Name: RIGO GARCIA Rep #:[id number] : 1970 55 From: Ovi Petit MD PCP: Dr. Mame Bright MD Status:REG ER Location: ED HPI History of Present Illness Chief Complaint: Shortness of Breath Narrative Narrative: 55-year-old male presents from [facility] with shortness of breathand low pulse ox. It was reported that he had pulse ox in the 80s. He is a smoker. He denies any fevers or chills, no cough. He states that occasionally he does wear oxygen at the [facility]. No exacerbating or alleviating factors. He states that he has been at this particular [facility] facility for years. [facility] Medical History Hemiplegia and hemiparesis following cerebral infarction affecting right dominant side Dysarthria following cerebral infarction COPD (chronic obstructive pulmonary disease) Nicotine dependence, cigarettes, uncomplicated Violent behavior Unspecified lack of coordination Acute bronchitis, unspecified Pneumonitis due to inhalation of food and vomit Peripheral vascular disease, unspecified Need for assistance with personal care Gastro-esophageal reflux disease without esophagitis Benign prostatic hyperplasia with lower urinary tract symptoms CVA (cerebral vascular accident) Depression Diabetes Bipolar [...] 12/03/24 History release (Adult Low Dose Aspirin) buspirone 10 mg tablet 10 mg PO TID BIPOLAR 5 12/03/24 History calcium carbonate (Leslye-[place] 600 mg PO Q6H PRN hear tburn 07/31/24 11/26/24 History Heartburn Chew) cholecalciferol (vitamin D3) 1,250 1,250 mcg PO QWEEK SUPPLEMENT 07/31/24 11/27/24 History mcg (50,000 unit) capsule gabapentin 100 mg capsule 200 mg PO TID NEUROPATHIC PA IN 07/31/24 12/03/24 History lorazepam 1 mg tablet (Ativan) 1 mg PO TID agitation 0 07/31/24 12/03/24 History metformin 1,000 mg tablet 1,000 mg PO BID DM 07/31/24 12/03/24 History sennosides 8.6 mg-docusate sodium 1 tab-cap PO DAILY C ONSTIPATION 07/31/24 12/03/24 History 50 mg tablet (Colace 2-In-1) trazodone 50 mg tablet 50 mg PO QHS BIPOLAR 5 12/03/24 History vortioxetine 20 mg tablet 20 mg PO DAILY DEPRESSION 12/03/24 History (Trintellix) atorvastatin 10 mg tablet (Lipitor) 10 mg PO QHS 01/31 Unknown History lorazepam 1 mg tablet (Ativan) 1 mg PO Q8H 01/31/25 Un known History albuterol sulfate 2.5 mg/3 mL 2.5 mg (3 mL) inhalation Q2H PRN 02/03/25 Unknown Rx (0.083 %) solution for nebulization PRN SHORTNESS OF B REATH #0 mL guaifenesin 600 mg tablet, 1,200 mg (2 x 600 mg) PO BI D #20 02/03/25 Unknown Rx extended release 12 hr (Mucinex) tabs insulin glargine 100 unit/mL (3 10 unit (0.1 mL) subcu t QPM #3 mL 02/03/25 Unknown Rx mL) subcutaneous pen (Lantus Solostar U-100 Insulin) insulin lispro 100 unit/mL See Protocol subcut ACHS #0 mL 02/03/25 Unknown Rx subcutaneous pen (Humalog KwikPen (U-100) Insulin) ipratropium 0.5 mg-albuterol 3 mg 3 ml inhalation Q4HW A.RT #0 mL 02/03/25 Unknown Rx (2.5 mg base)/3 mL nebulization soln prednisone 20 mg tablet 40 mg (2 x 20 mg) PO DAILY 7 days 04/17/25 Unknown Rx #14 tabs Allergy/AdvReac Type Severity Reaction Status Date / Time ibuprofen Allergy Rash Verified 04/17/25 09:30 Penicillins Allergy RASH Verified 04/17/25 09:30 Surgical History No history of previous surgery Social History housing: snf Smoking Status: Current every day smoker tobacco type: cigarettes alcohol intake: never substance use type: does not use ROS ROS ED ROS Narrative Review of systems positive for reported low pulse ox. Occasional cough with shortness of breath. Nochest pain. No fevers or chills. No exacerbating or alleviating factors. History and physical mildly limited secondary to schizophrenia and bipolar disorder. Review of Systems ROS Unobtainable: due to mental condition EXAM Physical Exam Narrative Exam Narrative: Afebrile. Vital signs noted. Nontoxic-appearing. Cardiovascular examination feels regular rate and rhythm. Lungs are clear to auscultation bilaterally withmild tachypnea but no acute distress. Decreased breath sounds bilateral bases. Abdomen soft and nontender with positive bowel sounds. Neurological examinationnonfocal, nonlateralizing. Mildly flat affect. Continually asks for food. Const Vital Signs: 04/17/25 09:23 04/17/25 09:26 04/17/25 09:28 Temperature 97.5 F L 97.5 F L Temperature Source Oral Oral Pulse Rate 84 82 Respiratory Rate 20 H 20 H Respiratory Effort Non-Labored Respiratory Depth Normal Respiratory Pattern Tachypnea Blood Pressure 107/75 107/75 Blood Pressure Mean 85 85 Pulse Ox 87 90 Oxygen Delivery Method Room Air Nasal Cannula Room Air Oxygen Flow Rate (L/min) 3 04/17/25 09:41 04/17/25 09:42 04/17/25 09:45 Temperature Temperature Source Pulse Rate 80 Respiratory Rate 16 Respiratory Effort Respiratory Depth Respiratory Pattern Blood Pressure 100/72 Blood Pressure Mean 81 Pulse Ox 97 97 Oxygen Delivery Method Nasal Cannula Oxygen Flow Rate (L/min) 3 04/17/25 09:47 04/17/25 10:00 04/17/25 10:15 Temperature Temperature Source Pulse Rate 80 81 Respiratory Rate 16 20 H Respiratory Effort Respiratory Depth Respiratory Pattern Blood Pressure 104/75 106/78 Blood Pressure Mean 85 88 Pulse Ox Oxygen Delivery Method Oxygen Flow Rate (L/min) 04/17/25 10:21 04/17/25 10:30 04/17/25 10:45 Temperature Temperature Source Pulse Rate 82 78 88 Respiratory Rate 22 H 15 Respiratory Effort Respiratory Depth Respiratory Pattern Blood Pressure 120/82 H 114/80 126/82 H Blood Pressure Mean 94 88 96 Pulse Ox 88 Oxygen Delivery Method Room Air Oxygen Flow Rate (L/min) 04/17/25 11:00 04/17/25 11:15 04/17/25 11:15 Temperature Temperature Source Pulse Rate 86 80 Respiratory Rate 20 H 18 Respiratory Effort Respiratory Depth Respiratory Pattern Blood Pressure 120/82 H 117/89 H 117/89 H Blood Pressure Mean 95 97 97 Pulse Ox 88 Oxygen Delivery Method Oxygen Flow Rate (L/min) 04/17/25 11:30 04/17/25 11:30 04/17/25 11:45 Temperature Temperature Source Pulse Rate 74 Respiratory Rate 22 H Respiratory Effort Respiratory Depth Respiratory Pattern Blood Pressure 109/61 109/61 114/78 Blood Pressure Mean 75 75 89 Pulse Ox Oxygen Delivery Method Oxygen Flow Rate (L/min) 04/17/25 12:00 04/17/25 12:15 04/17/25 12:30 Temperature Temperature Source Pulse Rate 88 86 90 Respiratory Rate 20 H 16 18 Respiratory Effort Respiratory Depth Respiratory Pattern Blood Pressure 127/81 H 129/90 H 114/92 H Blood Pressure Mean 94 98 99 Pulse Ox 89 94 89 Oxygen Delivery Method Oxygen Flow Rate (L/min) 04/17/25 12:45 04/17/25 13:00 Temperature Temperature Source Pulse Rate 94 99 Respiratory Rate 23 H 20 H Respiratory Effort Respiratory Depth Respiratory Pattern Blood Pressure 118/89 H Blood Pressure Mean 100 Pulse Ox 93 93 Oxygen Delivery Method Room Air Oxygen Flow Rate (L/min) MDM MDM MDM Narrative Medical decision making narrative: Differential diagnosis includes but not limited to pneumonia versus pneumothoraxversus COPD exacerbation versus chronic respiratory failure. I have low suspicion for pulmonary embolism based on the patient history and physical. He is not tachycardic. Comprehensive workup was pursued. He was given aDuoNeb aerosolized treatment. Chest x-ray will be obtained as well as basic laboratorywork. I have low suspicion for sepsis because he is not meeting SIRS criteria currently. He is hypoxic however. VBG will be obtained to check for CO2 retention. EKG was obtained and interpreted by myself independently as 79 bpm of normal sinus rhythm without acute ST changes. No STEMI. I reviewed his laboratory work and he has normal white count of 6.0 with hemoglobin 12.5, hematocrit 41.1,platelet count 243. BMP grossly normal except for glucose of 101 with a normal anion gap of 11, BUN 15, creatinine normal at 1.09. BNP to look for new onset congestiveheart failure is normal at less than 36. I think this is probably more of a COPD exacerbation. Patient administered DuoNeb aerosolized treatment. Afterwards, pulse ox at rest remains 88 to 90% on room air. He states he usually gets up to a wheelchair given his hemiplegia from a stroke. Given his continued hypoxia, concern would be for pulmonary embolism rule out. CTA was obtained. I reviewed the radiology report of the CTA of the chest and there is no evidenceof pneumonia, no pulmonary embolism. Upon repeat examination, patient is sitting upright, eating a sandwich. His pulse ox ranges from 88% to 93% on room air. Patient states he wears oxygen at the [facility] when he gets into trouble. He was told that he should use it more frequently. I discussed the patient with his legal guardian,his sister Chris Garcia who is agreeable to him returning to the [facility]. He was instructed that should his pulse ox go below 88% on room air, he should wear his nasal cannula oxygen as I feel that 88 to 90% may be his baseline. He will be given a burst of steroids for the next 7 days. He had been given a loading dose here. He was told that they should monitor his blood sugaras well. I feel he can be discharged as he has oxygen at the [facility]. Returninstructions were reviewed. Disposition is discharged in stable condition. History & Record Review Discussion w/independent historian: Patient Lab Data Attestation: I reviewed the patient's lab results. Labs: Laboratory Results - last 24 hr 04/17/25 09:39 WBC 6.0 RBC 4.78 Hgb 12.5 L Hct 41.1 MCV 86.0 MCH 26.2 L MCHC 30.4 L RDW Std Deviation 48.9 H RDW Coeff of Thomas 15.6 H Plt Count 243 MPV 9.3 Immature Gran % (Auto) 0.300 Neut % (Auto) 62.0 Lymph % (Auto) 23.6 [place] % (Auto) 9.5 Eos % (Auto) 3.8 Baso % (Auto) 0.8 Absolute Neuts (auto) 3.7 Absolute Lymphs (auto) 1.42 Nucleated RBC % 0 Sodium 142 Potassium 4.2 Chloride 101 Carbon Dioxide 29.9 Anion Gap 11 BUN 15 Creatinine 1.09 Estim Creat Clear Calc 88.75 Est GFR (MDRD) Non-Af 80 BUN/Creatinine Ratio 13.6 Glucose 101 H Calcium 9.9 NT pro BNP II < 36 ABG Data ABG results: ABG 04/17/25 10:03 Specimen Type MARTI Sample Site Not entered O2 % 3.0 VBG pH 7.44 H VBG pO2 59 H VBG HCO3 37 H VBG Total CO2 39 H VBG O2 Sat (Calc) 90 H VBG Base Excess 13 H POC Mix VBG pCO2 Pt Tmp 54.7 H O2 Delivery Device Cannula Radiography Diagnostic Testing: Clinical Impression(s) from Imaging Studies Chest X-Ray 04/17/25 09:38 IMPRESSION: No acute process is identified in the chest. Reading Location: [place] Chest CTA 04/17/25 11:14 IMPRESSION: No pulmonary embolism. No acute chest abnormality. Reading Location: [address] Discharge Plan Triage Chief Complaint: Shortness of Breath ED Provider: Ovi Petit Dx/Rx/DC Orders Clinical Impression: COPD exacerbation, SOB (shortness of breath) Instructions: ED COPD Flare Prescriptions: New prednisone 20 mg tablet 40 mg PO DAILY 7 Days Qty: 14 0RF No Action atorvastatin [Lipitor] 10 mg tablet 10 mg PO QHS lorazepam [Ativan] 1 mg tablet 1 mg PO Q8H ipratropium-albuterol 0.5 mg-3 mg(2.5 mg base)/3 mL Solution For Nebulization 3 ml inhalation Q4HWA.RT Qty: 0 0RF albuterol sulfate 2.5 mg /3 mL (0.083 %) Solution For Nebulization 2.5 mg inhalation Q2H PRN PRN (Reason: SHORTNESS OF BREATH ) Qty: 0 0RF insulin lispro [Humalog KwikPen Insulin] 100 unit/mL Insulin Pen See Protocol subcut ACHS Qty: 0 0RF Protocol: 3. Sliding Scale Insulin Med Dosing Condition: 150-189 mg/dl = 1 unit Condition: 190-229 mg/dl = 2 units Condition: 230-269 mg/dl = 3 units Condition: 270-309 mg/dl = 4 units Condition: 310-349 mg/dl = 5 units Condition: 350-399 mg/dl = 6 units Condition: 400-449 mg/dl = 7 units Condition: Greater than 449 call physician Protocol Text: - Use for Total Daily Dose of Insulin 37-55 units - Obsese, infected, or steroid patients MEDIUM DOSING ALGORITHIM guaifenesin [Mucinex] 600 mg tablet extended release 12hr 1,200 mg PO BID Qty: 20 0RF insulin glargine [Lantus Solostar U-100 Insulin] 100 unit/mL (3 mL) insulin pen 10 unit subcut QPM Qty: 3 0RF Trintellix 20 mg tablet 20 mg PO DAILY sennosides-docusate sodium [Colace 2-In-1] 8.6-50 mg tablet 1 tab-cap PO DAILY aripiprazole [Abilify] 15 mg tablet 15 mg PO DAILY aspirin [Adult Low Dose Aspirin] 81 mg tablet,delayed release (DR/EC) 81 mg PO DAILY lorazepam [Ativan] 1 mg tablet 1 mg PO TID buspirone 10 mg tablet 10 mg PO TID gabapentin 100 mg capsule 200 mg PO TID trazodone 50 mg tablet 50 mg PO QHS cholecalciferol (vitamin D3) 1,250 mcg (50,000 unit) capsule 1,250 mcg PO QWEEK Rx Instructions: QMONDAY metformin 1,000 mg tablet 1,000 mg PO BID Leslye-[place] Heartburn Chew 300 mg (750 mg) tablet,chewable 600 mg PO Q6H PRN (Reason: heartburn) acetaminophen [Aminofen] 325 mg tablet 650 mg PO Q4H PRN (Reason: fever or pain) Primary Care Provider: Mame Bright Referrals: Mame Bright MD [Primary Care Provider, Medical] - 3-5 Days Activity Restrictions/Additional Instructions: Use your oxygen per nasal cannula when your pulse ox is below 88% on room air. You have DuoNeb aerosolized treatments that you can use every 4 hours as needed. You should use them every 4-6 hours as needed especially over the next 48 hours. You are given a prescription for a steroid burst. Make sure that your blood sugars are monitored as they may increase while using prednisone. Return with new or worsening symptoms. Print Language: Tuvaluan Disposition Disposition: [facility] Facility Discharge Location: [place] What to do if you have Problems For any increased pain, shortness of breath, bleeding, nausea or vomiting, chestpain, or any unexpected problems, contact your Primary Care Provider. Call [facility] ([phone]) or report tothe closest Emergency Room. Call 911 if necessary. 04/17/25 1318 Cosigner Signature (if applicable): CC: Dr. Maem Bright MD ~ Signed [facility]10-21-2025 Radiology Diagnostic study note [facility] Imaging Services [address] [place] [id number] CTA Chest W/WO Contrast MR#: [id number] Acct: [id number] Name: RIGO GARCIA Rep #: [id number] : 1970 M 55 From: Quoc Lua MD PCP: Dr. Mame Bright MD Status: [facility] ER Study:CTA Chest W/WO Contrast Date of Exam: 04/17/25 Exam# [id number] Ordering Dr: Ovi Petit MD PROCEDURE: CTA CHEST W/WO CONTRAST 04/17/2025 REASON FOR EXAM: HYPOXIA TECHNIQUE: Procedure Code: [id number] Modality: CT Procedure: CTA CHEST W/WO CONTRAST Multiplanar Sagittal and Coronal images were obtained. One or more dose reduction techniques were used (e.g., Automated exposure control, adjustment of the mA and/or kV according to patient size, use of iterative reconstruction technique). FINDINGS: The peripheral soft tissues are unremarkable. Degenerative changes of the spine. The upper abdomen is unremarkable. Normal caliber thoracic aorta. No mediastinal lymphadenopathy. The heart is normal insize. No pulmonary artery filling defects. Mild left basilar linear atelectasis. CT/CTA Chest W/WO Contrast IMPRESSION: No pulmonary embolism. No acute chest abnormality. Reading Location: [address] CC: Dr. Ovi Petit MD; Dr. Mame Bright MD ~ Overhead Crane Inspector: Signed [facility]10-21-2025 Radiology Diagnostic study note [facility] Imaging Services [address] [place] [address] Chest 1 View (Portable) MR#: [id number] Acct: [id number] Name: RIGO GARCIA Rep #: [id number] : 1970 M 55 From: Claudy Cardenas MD PCP: Dr. Mame Bright MD Status: [facility] ER Study:Chest 1 View (Portable) Date of Exam: 04/17/25 Exam# [id number] Ordering Dr: Ovi Petit MD PROCEDURE: CHEST 1 VIEW (PORTABLE) 04/17/2025 REASON FOR EXAM: SHORTNESS OF BREATH TECHNIQUE: Frontal view of the chest. COMPARISON: February 01, 2020 FINDINGS: Heart size is upper normal. Central vascularity appears normal. There is no focal infiltrate or consolidation. There is no pneumothorax or effusion. There is no visible atherosclerosis. RAD/Chest 1 View (Portable) IMPRESSION: No acute process is identified in the chest. Reading Location: [facility] CC: Dr. Ovi Petit MD; Dr. Mame Bright MD ~ Overhead Crane Inspector: Signed [facility]08-09-2025 Consult note Author Tatum Toney [facility] Note Date/Time February 03, 2025 2:5 2pm [facility] Medical Records Department [address] [place] [address] Pharmacokinetic/Renal -Consult 02/03/25 1420 MR#: [id number] Acct: [id number] Name: RIGO GARCIA Rep #:[id number] : 1970 55 From: Tatum shrestha PCP: Dr. Mame Bright MD Status:ADM IN Location: [facility] [id number] Consult Antibiotic Management Pharmacy has been consulted to manage selected antibiotic: Vancomycin Type of Intervention Type of Consult: Follow-up Prior Doses of Antibiotics Prior Doses of Antibiotics Received/Current Regimen: current dose is 1750mg IV q12h Labs Labs: Sodium 136 mmol/L (133-145) 02/03/25 05:27 Potassium 4.2 mmol/L (3.3-5.1) 02/03/25 05:27 Chloride 97 mmol/L (98-108) L 02/03/25 05:27 Carbon Dioxide 27.1 mmol/L (21.0-32.0) 02/03/25 05:27 Anion Gap 12 (5-15) 02/03/25 05:27 BUN 21 mg/dL (4-19) H 02/03/25 05:27 Creatinine 1.09 mg/dL (0.70-1.20) 02/03/25 05:27 Est GFR (MDRD) Non-Af 80 (>60) 02/03/25 05:27 BUN/Creatinine Ratio 19.3 RATIO (10-20) 02/03/25 05:27 Glucose 337 mg/dL (70-99) H 02/03/25 05:27 Vancomycin Trough 24.5 ug/mL (5.0-15.0) H 02/03/25 13:23 Microbiology Microbiology: Microbiology 02/01/25 06:10 Nasal Secretion MRSA (PCR) - Final 01/31/25 21:45 Blood Culture (Wb) - Left Forearm Blood Culture - Preliminary No growth in 48 hours. 01/31/25 21:12 Blood Culture (Wb) - Left Hand Blood Culture - Preliminary No growth in 48 hours. 01/31/25 22:54 Urine, Random Legionella Antigen - Final 01/31/25 22:54 Urine, Random Streptococcus pneumoniae Antigen (M - Final 01/31/25 23:50 Mucosa - Nasopharyngeal Respiratory Panel (PCR) - Final Rhinovirus Dosing Weight Weight used for dosin.2 kg Estimated Creatinine Clearance Estimated Creatinine Clearance: 89 ml/min Goal Trough Goal Trough: 15-20 mcg/mL Pharmacy Plan for Drug Dosing Pharmacy Plan for Drug Dosing: The vanc trough drawn at 13:23 today (approx 12 hours after the previous dose) was 24.5 mcg/ml. This is above goal range so will hold current dose. Will check a random level in 12 hours to see if dosing can be resumed at that time. Pharmacy Service will continue to monitor and adjust dosing as required. Follow-Up Labs Follow-Up Labs: Trough: Vancomycin (random) Date/Time Labs Ordered Labs to be done on [date and time ordered]: 02/04/25 02:00 02/03/25 1422 <Electronically signed by Tatum weinstein> Date _ Tatum Toney 02/03/25 1452 <Electronically signed by Fredo Alberts MD> Cosigner Signature (if applicable): Date Fredo Alberts MD CC: ~ Signed [facility] Work Phone: 1(793) 413-822908-09-2025 Discharge summary Author Fredo Alberts [facility] Note Date/Time February 03, 2025 2:4 5pm [facility] Medical Records Department [address] [place] [address] Transfer to [facility] MR#: [id number] Acct: [id number] Name: RIGO GARCIA Rep #:[id number] : 1970 55 From: Fredo Alberts MD PCP: Dr. Mame Bright MD Status:ADM IN Certification of patient admission REQUIRED AT TIME OF ADMISSION. I CERTIFY THAT POST-HOSPITAL F SERVICES ARE REQUIRED TO BE GIVEN ON AN IN-PATIENT BASIS BECAUSE OF THE ABOVE NAMED PATIENT'S NEED FOR PRISON CARE ON A CONTINUING BASIS FOR THE CONDITION(S) FOR WHICH HE/SHE WAS RECEIVING IN-PATIENT HOSPITAL SERVICES PRIOR TO HIS/HER TRANSFER TO THE [facility]. 02/03/25 1445<Electronically signed by Fredo Alberts MD> Diet Diet Order/Speech Therapy: INPATIENT Hospital Diet / Speech Therapy Order(s) 02/01/25 13:41 Diet: Carbohydrate Controlled Food consistency:: Easy to Chew Liquid Consistency:: Regular/Thin Routine Orders/Code Status Code Status: DNRCC-A DC O2, CPAP, BIPAP needs Home O2 Discharge instructions: Yes Type of respiratory needs?: Oxygen Oxygen frequency: Continuous Continuous oxygen liters per minute: 2 Therapies Physical Therapy: Eval and Treat Occupational Therapy: Eval and Treat Speech Therapy: Eval and Treat Problem/Diagnosis (1) Acute exacerbation of chronic obstructive pulmonary disease: Status: Chronic Code(s): J44.1 - Chronic obstructive pulmonary disease with (acute) exacerbation Plan Patient is a 55-year-old gentleman with history of CVA with residual right-sidedhemiplegia and dysarthria resident at [facility] brought in with shortness of breath and altered mental status. Chest x-ray demonstrated pulmonary edema with inability to exclude right lower lobe opacity. Patient wasstarted on antibiotic therapy for suspected pneumonia with gram-negative organisms and admitted to a monitored bed for further management, 1. Acute metabolic encephalopathy ? Secondary to acute hypoxic respiratory failure from pneumonia as well as suspected CHF ? 02/02/2025; patient appears to be back to his baseline 2. Acute hypoxic respiratory failure ? Requiring high flow oxygen via Airvo. This was thought to be secondary to pneumonia admitted to a monitored bed for treatment of the underlying etiology ? 02/02/2025; patient remains on high flow oxygen?Airvo plan is to attempt to weanpatient off 3. Pneumonia with suspected gram-negative organisms ? Blood and sputum cultures sent. Patient placed on levofloxacin and placed on oxygen titrated to keep Pulse Ox greater than 90. Viral respiratory panel in addition to COVID also obtained on admission. Patient viral respiratory panel came back positive for rhinovirus 4. Acute congestive heart failure with suspected preserved ejection fraction ? Patient is currently being managed on a monitored bed ordered proBNP as well as 2D echo patient started on strict input and output, daily weight, fluid restriction as well as diuretic therapy ? 02/02/2025Patient has significant response to diuretic therapy currently negative fluid balance of 2.5 L over the past 24 hours. 2 D echo was ordered the day prior results pending ? 02/03/2025; adjusted Lasix dose; patient rejected 2D echo evaluation 5. 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 Dyslipidemia ?Patient is on statin therapy, continued at home dose 7. Diabetes mellitus type II -patient's oral hypoglycemics held. Placed on Accu-Cheks a.c. and at bedtime andcovered with sliding scale insulin 8. Class I obesity with BMI of 34.7 ? Complicating care 9. Tobacco dependence ? Counseled on cessation, offered nicotine patch for tobacco cravings 10. Mood disorder ? With history of anxiety depression and bipolar disorder did continue patient psychotropic medications 11. Abnormal x-ray involving the right shoulder ? Imaging studies on admission did demonstrate low riding right humerus; dislocation could not be excluded. Subsequent repeat dedicated shoulder x-ray demonstrated Widened cc ligamentous space consistent with ligamentous injury. Management PT OT as tolerated in addition to pain meds 12. DVT prophylaxis ? On enoxaparin 13. Hypophosphatemia ? Corrected per protocol repeat phosphate levels ordered for a.m. 14. Anemia ? Secondary to chronic disorder monitoring H&H and transfuse if patient becomes symptomatic or hemoglobin falls below 7 Allergies/Procedures Done in Hospital Allergies ibuprofen Allergy (Verified 01/31/25 20:24) Rash Penicillins Allergy (Verified 01/31/25 20:24) RASH Type of Care/Length of Stay Estimated LOS: More Than 30 Days Type of Care Needed: Intermediate Rehab Potential: Fair Prognosis: Fair Additional Orders/Day of Discharge Day of Discharge: 02/03/25 Dietary and Speech Recommendations Dietitian Recommendations/Changes: Adjust to consistent carbohydrate diet per consistency/textures per [employer] recommendations. Will monitor weight trends. Discharge Plan Admission Admit Date/Time: 01/31/25 23:03 Attending Provider: Fredo Alberts Primary Care Provider: Mame Bright Consulting Providers: Rosalva Fowler Discharge Orders/Prescriptions Prescriptions: New ipratropium-albuterol 0.5 mg-3 mg(2.5 mg base)/3 mL Solution For Nebulization 3 ml inhalation Q4HWA.RT Qty: 0 0RF albuterol sulfate 2.5 mg /3 mL (0.083 %) Solution For Nebulization 2.5 mg inhalation Q2H PRN PRN (Reason: SHORTNESS OF BREATH ) Qty: 0 0RF insulin lispro [Humalog KwikPen Insulin] 100 unit/mL Insulin Pen See Protocol subcut ACHS Qty: 0 0RF Protocol: 3. Sliding Scale Insulin Med Dosing Condition: 150-189 mg/dl = 1 unit Condition: 190-229 mg/dl = 2 units Condition: 230-269 mg/dl = 3 units Condition: 270-309 mg/dl = 4 units Condition: 310-349 mg/dl = 5 units Condition: 350-399 mg/dl = 6 units Condition: 400-449 mg/dl = 7 units Condition: Greater than 449 call physician Protocol Text: - Use for Total Daily Dose of Insulin 37-55 units - Obsese, infected, or steroid patients MEDIUM DOSING ALGORITHIM doxycycline hyclate 100 mg capsule 100 mg PO BID Qty: 14 0RF prednisone 20 mg tablet 20 mg PO BID Qty: 14 0RF guaifenesin [Mucinex] 600 mg tablet extended release 12hr 1,200 mg PO BID Qty: 20 0RF furosemide [Lasix] 40 mg tablet 40 mg PO DAILY Qty: 30 0RF insulin glargine [Lantus Solostar U-100 Insulin] 100 unit/mL (3 mL) insulin pen 10 unit subcut QPM Qty: 3 0RF Continued atorvastatin [Lipitor] 10 mg tablet 10 mg PO QHS lorazepam [Ativan] 1 mg tablet 1 mg PO Q8H Trintellix 20 mg tablet 20 mg PO DAILY sennosides-docusate sodium [Colace 2-In-1] 8.6-50 mg tablet 1 tab-cap PO DAILY aripiprazole [Abilify] 15 mg tablet 15 mg PO DAILY aspirin [Adult Low Dose Aspirin] 81 mg tablet,delayed release (DR/EC) 81 mg PO DAILY lorazepam [Ativan] 1 mg tablet 1 mg PO TID buspirone 10 mg tablet 10 mg PO TID gabapentin 100 mg capsule 200 mg PO TID trazodone 50 mg tablet 50 mg PO QHS cholecalciferol (vitamin D3) 1,250 mcg (50,000 unit) capsule 1,250 mcg PO QWEEK Rx Instructions: QMONDAY metformin 1,000 mg tablet 1,000 mg PO BID Emir Heartburn Chew 300 mg (750 mg) tablet,chewable 600 mg PO Q6H PRN (Reason: heartburn) acetaminophen [Aminofen] 325 mg tablet 650 mg PO Q4H PRN (Reason: fever or pain) Referrals / Follow Up: Mame Bright MD [Primary Care Provider] - Within 2 Weeks Disposition Disposition (needs filled in before D/C Order can be placed): [facility] Facility 02/03/25 0127 <Electronically signed by Fredo Alberts MD> Cosigner Signature (if applicable): CC: Dr. Rosalva Fowler MD; Dr. Mame Bright MD ~ [facility] Work Phone: 1(230) 857-565708-09-2025 Discharge summary Author Fredo Alberts [facility] Note Date/Time February 03, 2025 2:4 2pm [facility] Medical Records Department [address] [place] [address] Discharge Summary 02/03/25 1438 MR#: [id number] Acct: [id number] Name: RIGO GARCIA Rep #:[id number] : 1970 55 From: Fredo Alberts MD PCP: Dr. Mame Bright MD Status:ADM IN Location: [place] [id number] Providers Date of Admission: 01/31/25 Primary Care Physician: Dr. Mame Bright MD Reason For Visit: ACUTE HYPOXIA, COPD EXAC, ? PNA Diagnosis Discharge Diagnosis (1) Acute exacerbation of chronic obstructive pulmonary disease: Status: Chronic Code(s): J44.1 - Chronic obstructive pulmonary disease with (acute) exacerbation Plan Patient is a 55-year-old gentleman with history of CVA with residual right-sidedhemiplegia and dysarthria resident at [facility] brought in with shortness of breath and altered mental status. Chest x-ray demonstrated pulmonary edema with inability to exclude right lower lobe opacity. Patient wasstarted on antibiotic therapy for suspected pneumonia with gram-negative organisms and admitted to a monitored bed for further management, 1. Acute metabolic encephalopathy ? Secondary to acute hypoxic respiratory failure from pneumonia as well as suspected CHF ? 02/02/2025; patient appears to be back to his baseline 2. Acute hypoxic respiratory failure ? Requiring high flow oxygen via Airvo. This was thought to be secondary to pneumonia admitted to a monitored bed for treatment of the underlying etiology ? 02/02/2025; patient remains on high flow oxygen?Airvo plan is to attempt to weanpatient off 3. Pneumonia with suspected gram-negative organisms ? Blood and sputum cultures sent. Patient placed on levofloxacin and placed on oxygen titrated to keep Pulse Ox greater than 90. Viral respiratory panel in addition to COVID also obtained on admission. Patient viral respiratory panel came back positive for rhinovirus 4. Acute congestive heart failure with suspected preserved ejection fraction ? Patient is currently being managed on a monitored bed ordered proBNP as well as 2D echo patient started on strict input and output, daily weight, fluid restriction as well as diuretic therapy ? 02/02/2025Patient has significant response to diuretic therapy currently negative fluid balance of 2.5 L over the past 24 hours. 2 D echo was ordered the day prior results pending ? 02/03/2025; adjusted Lasix dose; patient rejected 2D echo evaluation 5. 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 Dyslipidemia ?Patient is on statin therapy, continued at home dose 7. Diabetes mellitus type II -patient's oral hypoglycemics held. Placed on Accu-Cheks a.c. and at bedtime andcovered with sliding scale insulin 8. Class I obesity with BMI of 34.7 ? Complicating care 9. Tobacco dependence ? Counseled on cessation, offered nicotine patch for tobacco cravings 10. Mood disorder ? With history of anxiety depression and bipolar disorder did continue patient psychotropic medications 11. Abnormal x-ray involving the right shoulder ? Imaging studies on admission did demonstrate low riding right humerus; dislocation could not be excluded. Subsequent repeat dedicated shoulder x-ray demonstrated Widened cc ligamentous space consistent with ligamentous injury. Management PT OT as tolerated in addition to pain meds 12. DVT prophylaxis ? On enoxaparin 13. Hypophosphatemia ? Corrected per protocol repeat phosphate levels ordered for a.m. 14. Anemia ? Secondary to chronic disorder monitoring H&H and transfuse if patient becomes symptomatic or hemoglobin falls below 7 Medications at Discharge Home Medications acetaminophen 325 mg tablet (Aminofen) 650 mg PO Q4H PRN fever or pain 07/31/24 aripiprazole 15 mg tablet (Abilify) 15 mg PO DAILY SCHIZOPHRENIA 07/31/24 aspirin 81 mg tablet,delayed release (Adult Low Dose Aspirin) 81 mg PO DAILY HTN07/31/24 buspirone 10 mg tablet 10 mg PO TID BIPOLAR 07/31/24 calcium carbonate (Leslye-[place] Heartburn Chew) 600 mg PO Q6H PRN heartburn 07/31/24 cholecalciferol (vitamin D3) 1,250 mcg (50,000 unit) capsule 1,250 mcg PO QWEEK SUPPLEMENT 07/31/24 gabapentin 100 mg capsule 200 mg PO TID NEUROPATHIC PAIN 07/31/24 lorazepam 1 mg tablet (Ativan) 1 mg PO TID agitation 07/31/24 metformin 1,000 mg tablet 1,000 mg PO BID DM 07/31/24 sennosides 8.6 mg-docusate sodium 50 mg tablet (Colace 2-In-1) 1 tab-cap PO DAILY CONSTIPATION 07/31/24 trazodone 50 mg tablet 50 mg PO QHS BIPOLAR 07/31/24 vortioxetine 20 mg tablet (Trintellix) 20 mg PO DAILY DEPRESSION 07/31/24 atorvastatin 10 mg tablet (Lipitor) 10 mg PO QHS 01/31/25 lorazepam 1 mg tablet (Ativan) 1 mg PO Q8H 01/31/25 albuterol sulfate 2.5 mg/3 mL (0.083 %) solution for nebulization 2.5 mg (3 mL) inhalation Q2H PRN PRN SHORTNESS OF BREATH #0 mL 02/03/25 doxycycline hyclate 100 mg capsule 100 mg PO BID #14 caps 02/03/25 furosemide 40 mg tablet (Lasix) 40 mg PO DAILY #30 tabs 02/03/25 guaifenesin 600 mg tablet, extended release 12 hr (Mucinex) 1,200 mg (2 x 600 mg) PO BID #20 tabs 02/03/25 insulin glargine 100 unit/mL (3 mL) subcutaneous pen (Lantus Solostar U-100 Insulin) 10 unit (0.1 mL) subcut QPM #3 mL 02/03/25 insulin lispro 100 unit/mL subcutaneous pen (Humalog KwikPen (U-100) Insulin) See Protocol subcut ACHS #0 mL 02/03/25 ipratropium 0.5 mg-albuterol 3 mg (2.5 mg base)/3 mL nebulization soln 3 ml inhalation Q4HWA.RT #0 mL 02/03/25 prednisone 20 mg tablet 20 mg PO BID #14 tabs 02/03/25 Hospital Course Summary of Care Provided Minutes Spent on Discharge: 35 Physical Exam Narrative GENERAL: cooperative HEENT: Atraumatic; normocephalic EYES; Anicteric, Normal Conjunctiva NECK; supple, normal thyroid, RESPIRATORY: Diminished to auscultation CARDIOVASCULAR: Regular S1 S2, GI: soft, normoactive bowel sounds, : No Renal angle tenderness; EXTREMITIES: No edema, no clubbing, MUSCULOSKELETAL: Wasting of right hand NEURO: Awake; right-sided hemiparesis SKIN: No Rash PSYCH; Flat affect Weight / BMI Weight Weight: 105.2 kg Body Mass Index (BMI) 36.3 ABG / Lab / Microbiology Data 02/03/25 05:27 02/03/25 05:27 Laboratory: Laboratory Results - last 24 hr 02/02/25 09:49: Phosphorus 3.3 02/02/25 16:53: POC Glucose 209 H 02/02/25 20:46: POC Glucose 389 H 02/03/25 05:27: WBC 12.0 H, RBC 4.69, Hgb 12.3 L, Hct 40.1, MCV 85.5, MCH 26.2 L, MCHC 30.7 L, RDW Std Deviation 47.6 H, RDW Coeff of Thomas 15.2 H, Plt Count 237,MPV 10.5, Immature Gran % (Auto) 0.400, Neut % (Auto) 85.0 H, Lymph % (Auto) 7.9L, [place] % (Auto) 6.6, Eos % (Auto) 0.0, Baso % (Auto) 0.1, Absolute Neuts (auto)10.2 H, Absolute Lymphs (auto) 0.95, Nucleated RBC % 0, Sodium 136, Potassium 4.2, Chloride 97 L, Carbon Dioxide 27.1, Anion Gap 12, BUN 21 H, Creatinine 1.09, Estim Creat Clear Calc 88.53, Est GFR (MDRD) Non-Af 80, BUN/Creatinine Ratio 19.3, Glucose 337 H, Calcium 9.3 02/03/25 05:56: POC Glucose 336 H 02/03/25 11:03: POC Glucose 101 02/03/25 13:23: Vancomycin Trough 24.5 H Microbiology: Microbiology 02/01/25 06:10 Nasal Secretion MRSA (PCR) - Final 01/31/25 21:45 Blood Culture (Wb) - Left Forearm Blood Culture - Preliminary No growth in 48 hours. 01/31/25 21:12 Blood Culture (Wb) - Left Hand Blood Culture - Preliminary No growth in 48 hours. 01/31/25 22:54 Urine, Random Legionella Antigen - Final 01/31/25 22:54 Urine, Random Streptococcus pneumoniae Antigen (M - Final 01/31/25 23:50 Mucosa - Nasopharyngeal Respiratory Panel (PCR) - Final Rhinovirus D/C Instructions DC O2, CPAP, BIPAP Needs Home O2 Discharge instructions: Yes Type of respiratory needs?: Oxygen Oxygen frequency: Continuous Continuous oxygen liters per minute: 2 DC home with Oxygen: Yes Home O2 MD Review: I have reviewed the oxygen testing, and the patient qualifies for home oxygen equipment and portability. The patient is mobile in the home and the community. Meaningful Use Info Meaningful Use Meaningful Use Diagnoses (Choose all that apply): CHF CHF NAS/ARB ordered at discharge?: No Reason NAS/ARB not ordered?: Normal EF (Patient declined 2D echo evaluation) Documented LVEF (%): 0 Discharge Plan Admission Admit Date/Time: 01/31/25 23:03 Attending Provider: Fredo Alberts Primary Care Provider: Mame Bright Consulting Providers: Rosalva Fowler Discharge Orders/Prescriptions Prescriptions: New ipratropium-albuterol 0.5 mg-3 mg(2.5 mg base)/3 mL Solution For Nebulization 3 ml inhalation Q4HWA.RT Qty: 0 0RF albuterol sulfate 2.5 mg /3 mL (0.083 %) Solution For Nebulization 2.5 mg inhalation Q2H PRN PRN (Reason: SHORTNESS OF BREATH ) Qty: 0 0RF insulin lispro [Humalog KwikPen Insulin] 100 unit/mL Insulin Pen See Protocol subcut ACHS Qty: 0 0RF Protocol: 3. Sliding Scale Insulin Med Dosing Condition: 150-189 mg/dl = 1 unit Condition: 190-229 mg/dl = 2 units Condition: 230-269 mg/dl = 3 units Condition: 270-309 mg/dl = 4 units Condition: 310-349 mg/dl = 5 units Condition: 350-399 mg/dl = 6 units Condition: 400-449 mg/dl = 7 units Condition: Greater than 449 call physician Protocol Text: - Use for Total Daily Dose of Insulin 37-55 units - Obsese, infected, or steroid patients MEDIUM DOSING ALGORITHIM doxycycline hyclate 100 mg capsule 100 mg PO BID Qty: 14 0RF prednisone 20 mg tablet 20 mg PO BID Qty: 14 0RF guaifenesin [Mucinex] 600 mg tablet extended release 12hr 1,200 mg PO BID Qty: 20 0RF furosemide [Lasix] 40 mg tablet 40 mg PO DAILY Qty: 30 0RF insulin glargine [Lantus Solostar U-100 Insulin] 100 unit/mL (3 mL) insulin pen 10 unit subcut QPM Qty: 3 0RF Continued atorvastatin [Lipitor] 10 mg tablet 10 mg PO QHS lorazepam [Ativan] 1 mg tablet 1 mg PO Q8H Trintellix 20 mg tablet 20 mg PO DAILY sennosides-docusate sodium [Colace 2-In-1] 8.6-50 mg tablet 1 tab-cap PO DAILY aripiprazole [Abilify] 15 mg tablet 15 mg PO DAILY aspirin [Adult Low Dose Aspirin] 81 mg tablet,delayed release (DR/EC) 81 mg PO DAILY lorazepam [Ativan] 1 mg tablet 1 mg PO TID buspirone 10 mg tablet 10 mg PO TID gabapentin 100 mg capsule 200 mg PO TID trazodone 50 mg tablet 50 mg PO QHS cholecalciferol (vitamin D3) 1,250 mcg (50,000 unit) capsule 1,250 mcg PO QWEEK Rx Instructions: QMONDAY metformin 1,000 mg tablet 1,000 mg PO BID Leslye-[place] Heartburn Chew 300 mg (750 mg) tablet,chewable 600 mg PO Q6H PRN (Reason: heartburn) acetaminophen [Aminofen] 325 mg tablet 650 mg PO Q4H PRN (Reason: fever or pain) Referrals / Follow Up: Mame Bright MD [Primary Care Provider] - Within 2 Weeks Disposition Disposition (needs filled in before D/C Order can be placed): [facility] Facility Charges/Coding Visit Charges Inpatient E&M: 54283 Disch Hosp >30min 02/03/25 1442 <Electronically signed by Fredo Alberts MD> Cosigner Signature (if applicable): CC: Dr. Fredo Alberts MD; Dr. Mame Bright MD~ Signed [facility] Work Phone: [phone]) 579-421208-09-2025 Consult note [facility] Medical Records Department [address] [place] [address] Pharmacokinetic/Renal -Consult 02/03/25 1420 MR#: [id number] Acct: [id number] Name: JOSERIGO Rep #:[id number] : 1970 55 From: Tatum shrestha PCP: Dr. Mame Bright MD Status:ADM IN Y Location: [place] [address] Consult Antibiotic Management Pharmacy has been consulted to manage selected antibiotic: Vancomycin Type of Intervention Type of Consult: Follow-up Prior Doses of Antibiotics Prior Doses of Antibiotics Received/Current Regimen: current dose is 1750mg IV q12h Labs Labs: Sodium 136 mmol/L (133-145) 02/03/25 05:27 Potassium 4.2 mmol/L (3.3-5.1) 02/03/25 05:27 Chloride 97 mmol/L (98-108) L 02/03/25 05:27 Carbon Dioxide 27.1 mmol/L (21.0-32.0) 02/03/25 05:27 Anion Gap 12 (5-15) 02/03/25 05:27 BUN 21 mg/dL (4-19) H 02/03/25 05:27 Creatinine 1.09 mg/dL (0.70-1.20) 02/03/25 05:27 Est GFR (MDRD) Non-Af 80 (>60) 02/03/25 05:27 BUN/Creatinine Ratio 19.3 RATIO (10-20) 02/03/25 05:27 Glucose 337 mg/dL (70-99) H 02/03/25 05:27 Vancomycin Trough 24.5 ug/mL (5.0-15.0) H 02/03/25 13:23 Microbiology Microbiology: Microbiology 02/01/25 06:10 Nasal Secretion MRSA (PCR) - Final 01/31/25 21:45 Blood Culture (Wb) - Left Forearm Blood Culture - Preliminary No growth in 48 hours. 01/31/25 21:12 Blood Culture (Wb) - Left Hand Blood Culture - Preliminary No growth in 48 hours. 01/31/25 22:54 Urine, Random Legionella Antigen - Final 01/31/25 22:54 Urine, Random Streptococcus pneumoniae Antigen (M - Final 01/31/25 23:50 Mucosa - Nasopharyngeal Respiratory Panel (PCR) - Final Rhinovirus Dosing Weight Weight used for dosin.2 kg Estimated Creatinine Clearance Estimated Creatinine Clearance: 89 ml/min Goal Trough Goal Trough: 15-20 mcg/mL Pharmacy Plan for Drug Dosing Pharmacy Plan for Drug Dosing: The vanc trough drawn at 13:23 today (approx 12 hours after the previous dose) was 24.5 mcg/ml. This is above goal range so will hold current dose. Will check a random level in 12 hours to see if dosing can be resumed at that time. Pharmacy Service will continue to monitor and adjust dosing as required. Follow-Up Labs Follow-Up Labs: Trough: Vancomycin (random) Date/Time Labs Ordered Labs to be done on [date and time ordered]: 02/04/25 02:00 02/03/25 1422 erg> Date _ Tatum Toney 02/03/25 1452 MD> Neetu Signature (if applicable): Date Fredo Alberts MD CC: ~ Signed [facility]08-09-2025 Discharge summary [facility] Medical Records Department [address] [place] [address] Transfer to [facility] MR#: [id number] Acct: [id number] Name: RIGO GARCIA Rep #:[id number] : 1970 55 From: Fredo Alberts MD PCP: Dr. Mame Bright MD Status:ADM IN Certification of patient admission REQUIRED AT TIME OF ADMISSION. I CERTIFY THAT [facility] ARE REQUIRED TO BE GIVEN ON AN IN-PATIENT BASIS BECAUSE OF THE ABOVE NAMED PATIENT'S NEED FOR PRISON CARE ON A CONTINUING BASIS FOR THE CONDITION(S) FOR WHICH HE/SHE WAS RECEIVING IN-PATIENT HOSPITAL SERVICES PRIOR TO HIS/HER TRANSFER TO THE [facility]. 02/03/25 1445 Diet Diet Order/Speech Therapy: INPATIENT Hospital Diet / Speech Therapy Order(s) 02/01/25 13:41 Diet: Carbohydrate Controlled Food consistency:: Easy to Chew Liquid Consistency:: Regular/Thin Routine Orders/Code Status Code Status: DNRCC-A DC O2, CPAP, BIPAP needs Home O2 Discharge instructions: Yes Type of respiratory needs?: Oxygen Oxygen frequency: ContinuousContinuous oxygen liters per minute: 2 Therapies Physical Therapy: Eval and Treat Occupational Therapy: Eval and Treat Speech Therapy: Eval and Treat Problem/Diagnosis (1) Acute exacerbation of chronic obstructive pulmonary disease: Status: Chronic Code(s): J44.1 - Chronic obstructive pulmonary disease with (acute) exacerbation Plan Patient is a 55-year-old gentleman with 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 Chest x-ray demonstrated pulmonary edema with inability to exclude right lower lobe opacity. Patient wasstarted on antibiotic therapy for suspected pneumonia with gram-negative organisms and admitted to a monitored bed for further management, 1. Acute metabolic encephalopathy ? Secondary to acute hypoxic respiratory failure from pneumonia as well as suspected CHF ? 02/02/2025; patient appears to be back to his baseline 2. Acute hypoxic respiratory failure ? Requiring high flow oxygen via Airvo. This was thought to be secondary to pneumonia admitted to amonitored bed for treatment of the underlying etiology ? 02/02/2025; patient remains on high flow oxygen?Airvo plan is to attempt to weanpatient off 3. Pneumonia with suspected gram-negative organisms ? Blood and sputum cultures sent. Patient placed on levofloxacin and placed on oxygen titrated to keep Pulse Ox greater than 90. Viral respiratory panel in addition to COVID also obtained on admission. Patient viral respiratory panel came back positive for rhinovirus 4. Acute congestive heart failure with suspected preserved ejection fraction ? Patient is currently being managed on a monitored bed ordered proBNP as well as 2D echo patient started on strict input and output, daily weight, fluid restriction as well as diuretic therapy ? 02/02/2025Patient has significant response to diuretic therapy currently negative fluid balance of 2.5 L over the past 24 hours. 2 D echo was ordered the day prior results pending ? 02/03/2025; adjusted Lasix dose; patient rejected 2D echo evaluation 5. 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 Dyslipidemia ?Patient is on statin therapy, continued at home dose 7. Diabetes mellitus type II -patient's oral hypoglycemics held. Placed on Accu-Cheks a.c. and at bedtime andcovered with sliding scale insulin 8. Class I obesity with BMI of 34.7 ? Complicating care 9. Tobacco dependence ? Counseled on cessation, offered nicotine patch for tobacco cravings 10. Mood disorder ? With history of anxiety depression and bipolar disorder did continue patient psychotropic medications 11. Abnormal x-ray involving the right shoulder ? Imaging studies on admission did demonstrate low riding right humerus; dislocation could not be excluded. Subsequent repeat dedicated shoulder x-ray demonstrated Widened cc ligamentous space consistent with ligamentous injury. Management PT OT as tolerated in addition to pain meds 12. DVT prophylaxis ? On enoxaparin 13. Hypophosphatemia ? Corrected per protocol repeat phosphate levels ordered for a.m. 14. Anemia ? Secondary to chronic disorder monitoring H&H and transfuse if patient becomes symptomatic or hemoglobin falls below 7 Allergies/Procedures Done in Hospital Allergies ibuprofen Allergy (Verified 01/31/25 20:24) Rash Penicillins Allergy (Verified 01/31/25 20:24) RASH Type of Care/Length of Stay Estimated LOS: More Than 30 Days Type of Care Needed: Intermediate Rehab Potential: Fair Prognosis: Fair Additional Orders/Day of Discharge Day of Discharge: 02/03/25 Dietary and Speech Recommendations Dietitian Recommendations/Changes: Adjust to consistent carbohydrate diet per consistency/textures per [employer] recommendations. Will monitor weight trends. Discharge Plan Admission Admit Date/Time: 01/31/25 23:03 Attending Provider: Fredo Alberts Primary Care Provider: Mame Bright Consulting Providers: Rosalva Fowler Discharge Orders/Prescriptions Prescriptions: New ipratropium-albuterol 0.5 mg-3 mg(2.5 mg base)/3 mL Solution For Nebulization 3 ml inhalation Q4HWA.RT Qty: 0 0RF albuterol sulfate 2.5 mg /3 mL (0.083 %) Solution For Nebulization 2.5 mg inhalation Q2H PRN PRN (Reason: SHORTNESS OF BREATH ) Qty: 0 0RF insulin lispro [Humalog KwikPen Insulin] 100 unit/mL Insulin Pen See Protocol subcut ACHS Qty: 0 0RF Protocol: 3. Sliding Scale Insulin Med Dosing Condition: 150-189 mg/dl = 1 unit Condition: 190-229 mg/dl = 2 units Condition: 230-269 mg/dl = 3 units Condition: 270-309 mg/dl = 4 units Condition: 310-349 mg/dl = 5 units Condition: 350-399 mg/dl = 6 units Condition: 400-449 mg/dl = 7 units Condition: Greater than 449 call physician Protocol Text: - Use for Total Daily Dose of Insulin 37-55 units - Obsese, infected, or steroid patients MEDIUM DOSING ALGORITHIM doxycycline hyclate 100 mg capsule 100 mg PO BID Qty: 14 0RF prednisone 20 mg tablet 20 mg PO BID Qty: 14 0RF guaifenesin [Mucinex] 600 mg tablet extended release 12hr 1,200 mg PO BID Qty: 20 0RF furosemide [Lasix] 40 mg tablet 40 mg PO DAILY Qty: 30 0RF insulin glargine [Lantus Solostar U-100 Insulin] 100 unit/mL (3 mL) insulin pen 10 unit subcut QPM Qty: 3 0RF Continued atorvastatin [Lipitor] 10 mg tablet 10 mg PO QHS lorazepam [Ativan] 1 mg tablet 1 mg PO Q8H Trintellix 20 mg tablet 20 mg PO DAILY sennosides-docusate sodium [Colace 2-In-1] 8.6-50 mg tablet 1 tab-cap PO DAILY aripiprazole [Abilify] 15 mg tablet 15 mg PO DAILY aspirin [Adult Low Dose Aspirin] 81 mg tablet,delayed release (DR/EC) 81 mg PO DAILY lorazepam [Ativan] 1 mg tablet 1 mg PO TID buspirone 10 mg tablet 10 mg PO TID gabapentin 100 mg capsule 200 mg PO TID trazodone 50 mg tablet 50 mg PO QHS cholecalciferol (vitamin D3) 1,250 mcg (50,000 unit) capsule 1,250 mcg PO QWEEK Rx Instructions: QMONDAY metformin 1,000 mg tablet 1,000 mg PO BID Leslye-[place] Heartburn Chew 300 mg (750 mg) tablet,chewable 600 mg PO Q6H PRN (Reason: heartburn) acetaminophen [Aminofen] 325 mg tablet 650 mg PO Q4H PRN (Reason: fever or pain) Referrals / Follow Up: Mame Bright MD [Primary Care Provider] - Within 2 Weeks Disposition Disposition (needs filled in before D/C Order can be placed): [facility] Facility 02/03/25 7260 Cosigner Signature (if applicable): CC: Dr. Rosalva Fowler MD; Dr. Mame Bright MD ~ [facility]08-09-2025 Discharge summary [facility] Medical Records Department [address] [place] [address] Discharge Summary 02/03/25 1438 MR#: [id number] Acct: [id number] Name: RIGO GARCIA Rep #:[id number] : 1970 55 From: Fredo Alberts MD PCP: Dr. Mame Bright MD Status:ADM IN Location: [place] [address] Providers Date of Admission: 01/31/25 Primary Care Physician: Dr. Mame Bright MD Reason For Visit: ACUTE HYPOXIA, COPD EXAC, ? 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 facility brought in with shortness of breath and altered mental status. Chest x-ray demonstrated pulmonary edema with inability to exclude right lower lobe opacity. Patient wasstarted on antibiotic therapy for suspected pneumonia with gram-negative organisms and admitted to a monitored bed for further management, 1. Acute metabolic encephalopathy ? Secondary to acute hypoxic respiratory failure from pneumonia as well as suspected CHF ? 02/02/2025; patient appears to be back to his baseline 2. Acute hypoxic respiratory failure ? Requiring high flow oxygen via Airvo. This was thought to be secondary to pneumonia admitted to amonitored bed for treatment of the underlying etiology ? 02/02/2025; patient remains on high flow oxygen?Airvo plan is to attempt to weanpatient off 3. Pneumonia with suspected gram-negative organisms ? Blood and sputum cultures sent. Patient placed on levofloxacin and placed on oxygen titrated to keep Pulse Ox greater than 90. Viral respiratory panel in addition to COVID also obtained on admission. Patient viral respiratory panel came back positive for rhinovirus 4. Acute congestive heart failure with suspected preserved ejection fraction ? Patient is currently being managed on a monitored bed ordered proBNP as well as 2D echo patient started on strict input and output, daily weight, fluid restriction as well as diuretic therapy ? 02/02/2025Patient has significant response to diuretic therapy currently negative fluid balance of 2.5 L over the past 24 hours. 2 D echo was ordered the day prior results pending ? 02/03/2025; adjusted Lasix dose; patient rejected 2D echo evaluation 5. 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 Dyslipidemia ?Patient is on statin therapy, continued at home dose 7. Diabetes mellitus type II -patient's oral hypoglycemics held. Placed on Accu-Cheks a.c. and at bedtime andcovered with sliding scale insulin 8. Class I obesity with BMI of 34.7 ? Complicating care 9. Tobacco dependence ? Counseled on cessation, offered nicotine patch for tobacco cravings 10. Mood disorder ? With history of anxiety depression and bipolar disorder did continue patient psychotropic medications 11. Abnormal x-ray involving the right shoulder ? Imaging studies on admission did demonstrate low riding right humerus; dislocation could not be excluded. Subsequent repeat dedicated shoulder x-ray demonstrated Widened cc ligamentous space consistent with ligamentous injury. Management PT OT as tolerated in addition to pain meds 12. DVT prophylaxis ? On enoxaparin 13. Hypophosphatemia ? Corrected per protocol repeat phosphate levels ordered for a.m. 14. Anemia ? Secondary to chronic disorder monitoring H&H and transfuse if patient becomes symptomatic or hemoglobin falls below 7 Medications at Discharge Home Medications acetaminophen 325 mg tablet (Aminofen) 650 mg PO Q4H PRN fever or pain 07/31/24 aripiprazole 15 mg tablet (Abilify) 15 mg PO DAILY SCHIZOPHRENIA 07/31/24 aspirin 81 mg tablet,delayed release (Adult Low Dose Aspirin) 81 mg PO DAILY HTN07/31/24 buspirone 10 mg tablet 10 mg PO TID BIPOLAR 07/31/24 calcium carbonate (Leslye-[place] Heartburn Chew) 600 mg PO Q6H PRN heartburn 07/31/24 cholecalciferol (vitamin D3) 1,250 mcg (50,000 unit) capsule 1,250 mcg PO QWEEK SUPPLEMENT 07/31/24 gabapentin 100 mg capsule 200 mg PO TID NEUROPATHIC PAIN 07/31/24 lorazepam 1 mg tablet (Ativan) 1 mg PO TID agitation 07/31/24 metformin 1,000 mg tablet 1,000 mg PO BID DM 07/31/24 sennosides 8.6 mg-docusate sodium 50 mg tablet (Colace 2-In-1) 1 tab-cap PO DAILY CONSTIPATION 07/31/24 trazodone 50 mg tablet 50 mg PO QHS BIPOLAR 07/31/24 vortioxetine 20 mg tablet (Trintellix) 20 mg PO DAILY DEPRESSION 07/31/24 atorvastatin 10 mg tablet (Lipitor) 10 mg PO QHS 01/31/25 lorazepam 1 mg tablet (Ativan) 1 mg PO Q8H 01/31/25 albuterol sulfate 2.5 mg/3 mL (0.083 %) solution for nebulization 2.5 mg (3 mL) inhalation Q2H PRN PRN SHORTNESS OF BREATH #0 mL 02/03/25 doxycycline hyclate 100 mg capsule 100 mg PO BID #14 caps 02/03/25 furosemide 40 mg tablet (Lasix) 40 mg PO DAILY #30 tabs 02/03/25 guaifenesin 600 mg tablet, extended release 12 hr (Mucinex) 1,200 mg (2 x 600 mg) PO BID #20 tabs 02/03/25 insulin glargine 100 unit/mL (3 mL) subcutaneous pen (Lantus Solostar U-100 Insulin) 10 unit (0.1 mL) subcut QPM #3 mL 02/03/25 insulin lispro 100 unit/mL subcutaneous pen (Humalog KwikPen (U-100) Insulin) See Protocol subcut ACHS #0 mL 02/03/25 ipratropium 0.5 mg-albuterol 3 mg (2.5 mg base)/3 mL nebulization soln 3 ml inhalation Q4HWA.RT #0 mL 02/03/25 prednisone 20 mg tablet 20 mg PO BID #14 tabs 02/03/25 Hospital Course Summary of Care Provided Minutes Spent on Discharge: 35 Physical Exam Narrative GENERAL: cooperative HEENT: Atraumatic; normocephalic EYES; Anicteric, Normal Conjunctiva NECK; supple, normal thyroid, RESPIRATORY: Diminished to auscultation CARDIOVASCULAR: Regular S1 S2, GI: soft, normoactive bowel sounds, : No Renal angle tenderness; EXTREMITIES: No edema, no clubbing, MUSCULOSKELETAL: Wasting of right hand NEURO: Awake; right-sided hemiparesis SKIN: No Rash PSYCH; Flat affect Weight / BMI Weight Weight: 105.2 kg Body Mass Index (BMI) 36.3 ABG / Lab / Microbiology Data 02/03/25 05:27 02/03/25 05:27 Laboratory: Laboratory Results - last 24 hr 02/02/25 09:49: Phosphorus 3.3 02/02/25 16:53: POC Glucose 209 H 02/02/25 20:46: POC Glucose 389 H 02/03/25 05:27: WBC 12.0 H, RBC 4.69, Hgb 12.3 L, Hct 40.1, MCV 85.5, MCH 26.2 L, MCHC 30.7 L, RDW Std Deviation 47.6 H, RDW Coeff of Thomas 15.2 H, Plt Count 237,MPV 10.5, Immature Gran % (Auto) 0.400,Neut % (Auto) 85.0 H, Lymph % (Auto) 7.9L, [place] % (Auto) 6.6, Eos % (Auto) 0.0, Baso % (Auto) 0.1, Absolute Neuts (auto)10.2 H, Absolute Lymphs (auto) 0.95, Nucleated RBC % 0, Sodium 136, Potassium 4.2, Chloride 97 L, Carbon Dioxide 27.1, Anion Gap 12, BUN 21 H, Creatinine 1.09, Estim Creat Clear Calc 88.53, Est GFR (MDRD) Non-Af 80, BUN/Creatinine Ratio 19.3, Glucose 337 H, Calcium 9.3 02/03/25 05:56: POC Glucose 336 H 02/03/25 11:03: POC Glucose 101 02/03/25 13:23: Vancomycin Trough 24.5 H Microbiology: Microbiology 02/01/25 06:10 Nasal Secretion MRSA (PCR) - Final 01/31/25 21:45 Blood Culture (Wb) - Left Forearm Blood Culture - Preliminary No growth in 48 hours. 01/31/25 21:12 Blood Culture (Wb) - Left Hand Blood Culture - Preliminary No growth in 48 hours. 01/31/25 22:54 Urine, Random Legionella Antigen - Final 01/31/25 22:54 Urine, Random Streptococcus pneumoniae Antigen (M - Final 01/31/25 23:50 Mucosa - Nasopharyngeal Respiratory Panel (PCR) - Final Rhinovirus D/C Instructions DC O2, CPAP, BIPAP Needs Home O2 Discharge instructions: Yes Type of respiratory needs?: Oxygen Oxygen frequency: ContinuousContinuous oxygen liters per minute: 2 DC home with Oxygen: Yes Home O2 MD Review: I have reviewed the oxygen testing, and the patient qualifies for home oxygen equipment and portability. The patient is mobile in the home and the community. Meaningful Use Info Meaningful Use Meaningful Use Diagnoses (Choose all that apply): CHF CHF NAS/ARB ordered at discharge?: No Reason NAS/ARB not ordered?: Normal EF (Patient declined 2D echo evaluation) Documented LVEF (%): 0 Discharge Plan Admission Admit Date/Time: 01/31/25 23:03 Attending Provider: Fredo Alberts Primary Care Provider: Mame Bright Consulting Providers: Rosalva Fowler Discharge Orders/Prescriptions Prescriptions: New ipratropium-albuterol 0.5 mg-3 mg(2.5 mg base)/3 mL Solution For Nebulization 3 ml inhalation Q4HWA.RT Qty: 0 0RF albuterol sulfate 2.5 mg /3 mL (0.083 %) Solution For Nebulization 2.5 mg inhalation Q2H PRN PRN (Reason: SHORTNESS OF BREATH ) Qty: 0 0RF insulin lispro [Humalog KwikPen Insulin] 100 unit/mL Insulin Pen See Protocol subcut ACHS Qty: 0 0RF Protocol: 3. Sliding Scale Insulin Med Dosing Condition: 150-189 mg/dl = 1 unit Condition: 190-229 mg/dl = 2 units Condition: 230-269 mg/dl = 3 units Condition: 270-309 mg/dl = 4 units Condition: 310-349 mg/dl = 5 units Condition: 350-399 mg/dl = 6 units Condition: 400-449 mg/dl = 7 units Condition: Greater than 449 call physician Protocol Text: - Use for Total Daily Dose of Insulin 37-55 units - Obsese, infected, or steroid patients MEDIUM DOSING ALGORITHIM doxycycline hyclate 100 mg capsule 100 mg PO BID Qty: 14 0RF prednisone 20 mg tablet 20 mg PO BID Qty: 14 0RF guaifenesin [Mucinex] 600 mg tablet extended release 12hr 1,200 mg PO BID Qty: 20 0RF furosemide [Lasix] 40 mg tablet 40 mg PO DAILY Qty: 30 0RF insulin glargine [Lantus Solostar U-100 Insulin] 100 unit/mL (3 mL) insulin pen 10 unit subcut QPM Qty: 3 0RF Continued atorvastatin [Lipitor] 10 mg tablet 10 mg PO QHS lorazepam [Ativan] 1 mg tablet 1 mg PO Q8H Trintellix 20 mg tablet 20 mg PO DAILY sennosides-docusate sodium [Colace 2-In-1] 8.6-50 mg tablet 1 tab-cap PO DAILY aripiprazole [Abilify] 15 mg tablet 15 mg PO DAILY aspirin [Adult Low Dose Aspirin] 81 mg tablet,delayed release (DR/EC) 81 mg PO DAILY lorazepam [Ativan] 1 mg tablet 1 mg PO TID buspirone 10 mg tablet 10 mg PO TID gabapentin 100 mg capsule 200 mg PO TID trazodone 50 mg tablet 50 mg PO QHS cholecalciferol (vitamin D3) 1,250 mcg (50,000 unit) capsule 1,250 mcg PO QWEEK Rx Instructions: QMONDAY metformin 1,000 mg tablet 1,000 mg PO BID [place] Heartburn Chew 300 mg (750 mg) tablet,chewable 600 mg PO Q6H PRN (Reason: heartburn) acetaminophen [Aminofen] 325 mg tablet 650 mg PO Q4H PRN (Reason: fever or pain) Referrals / Follow Up: Mame Bright MD [Primary Care Provider] - Within 2 Weeks Disposition Disposition (needs filled in before D/C Order can be placed): [facility] Facility Charges/Coding Visit Charges Inpatient E&M: 10070 Disch Hosp >30min 02/03/25 1442 Cosigner Signature (if applicable): CC: Dr. Fredo Alberts MD; Dr. Mame Bright MD~ Signed [facility]08[facility]09[facility] Progress note Author Fredo Alberts [facility] Note Date/Time February 03, 2025 9:5 8am [facility] Medical Records Department [address] [facility] [place] [address] Progress Note - Hospitalist 02/03/25 0710 MR#: [id number] Acct: [id number] Name: RIGO GARCIA Rep #:[id number] : 1970 55 From: Fredo Alberts MD PCP: Dr. Mame Bright MD Status:ADM IN Location: [place] [id number] Reason for Visit Chief Complaint: Cough, dyspnea, wheezing. Subjective Subjective Patient continues to diurese well. Plan is to discontinue IV Lasix and start patient on p.o. Lasix. Patient 2D echo still pending Objective Data Objective Data Vital Signs: Vital Signs Temp Pulse Resp BP Pulse Ox O2 Del Method O2 Flow Rate 98.3 F 69 18 134/86 H 94 Nasal Cannula 2 02/02/25 22:00 02/03/25 06:45 02/03/25 06:45 02/02/25 22:00 02/03/25 06:45 02/03/25 06:45 02/03/25 06:45 FiO2 40 02/02/25 11:00 Oxygen Flow Rate (L/min) 2 Oxygen Delivery Method Nasal Cannula Weight: 105.2 kg Body Mass Index (BMI) 36.3 Intake & Output: Intake and Output for Last 24 Hours 02/01/25 02/02/25 02/03/25 23:59 23:59 23:59 Intake Total 4130 / 4570 2960 / 3640 1655 / 1655 Output Total 2300 / 4100 5250 / 6350 2950 / 2950 Balance 1830 / 470 -2290 / -2710 -1295 / -1295 Lab / Micro Data 02/03/25 05:27 02/03/25 05:27 Labs: Laboratory Results - last 24 hr 02/02/25 06:30: WBC 11.7 H, RBC 4.76, Hgb 12.4 L, Hct 41.4, MCV 87.0, MCH 26.1 L, MCHC 30.0 L, RDW Std Deviation 48.5 H, RDW Coeff of Thomas 15.3 H, Plt Count 221,MPV 10.7, Immature Gran % (Auto) 0.300, Neut % (Auto) 86.0 H, Lymph % (Auto) 7.5L, [place] % (Auto) 6.1, Eos % (Auto) 0.0, Baso % (Auto) 0.1, Absolute Neuts (auto)10.1 H, Absolute Lymphs (auto) 0.88, Nucleated RBC % 0, Sodium 139, Potassium 4.2, Chloride 101, Carbon Dioxide 25.8, Anion Gap 12, BUN 15, Creatinine 0.93, Estim Creat Clear Calc 102.75, Est GFR (MDRD) Non-Af 97, BUN/Creatinine Ratio 15.7, Glucose 201 H, Calcium 9.7, Phosphorus 2.6 L, Magnesium 1.6, NT pro BNP II420 02/02/25 09:49: Phosphorus 3.3 02/02/25 11:21: POC Glucose 212 H 02/02/25 16:53: POC Glucose 209 H 02/02/25 20:46: POC Glucose 389 H 02/03/25 05:27: WBC 12.0 H, RBC 4.69, Hgb 12.3 L, Hct 40.1, MCV 85.5, MCH 26.2 L, MCHC 30.7 L, RDW Std Deviation 47.6 H, RDW Coeff of Thomas 15.2 H, Plt Count 237,MPV 10.5, Immature Gran % (Auto) 0.400, Neut % (Auto) 85.0 H, Lymph % (Auto) 7.9L, [place] % (Auto) 6.6, Eos % (Auto) 0.0, Baso % (Auto) 0.1, Absolute Neuts (auto)10.2 H, Absolute Lymphs (auto) 0.95, Nucleated RBC % 0, Sodium 136, Potassium 4.2, Chloride 97 L, Carbon Dioxide 27.1, Anion Gap 12, BUN 21 H, Creatinine 1.09, Estim Creat Clear Calc 88.53, Est GFR (MDRD) Non-Af 80, BUN/Creatinine Ratio 19.3, Glucose 337 H, Calcium 9.3 02/03/25 05:56: POC Glucose 336 H Micro: Microbiology 01/31/25 21:45 Blood Culture (Wb) - Left Forearm Blood Culture - Preliminary No growth in 48 hours. 01/31/25 21:12 Blood Culture (Wb) - Left Hand Blood Culture - Preliminary No growth in 48 hours. 01/31/25 22:54 Urine, Random Legionella Antigen - Final 01/31/25 22:54 Urine, Random Streptococcus pneumoniae Antigen (M - Final 01/31/25 23:50 Mucosa - Nasopharyngeal Respiratory Panel (PCR) - Final Rhinovirus Physical Exam Narrative GENERAL: cooperative HEENT: Atraumatic; normocephalic EYES; Anicteric, Normal Conjunctiva NECK; supple, normal thyroid, RESPIRATORY: Diminished to auscultation CARDIOVASCULAR: Regular S1 S2, GI: soft, normoactive bowel sounds, : No Renal angle tenderness; EXTREMITIES: No edema, no clubbing, MUSCULOSKELETAL: Wasting of right hand NEURO: Awake; right-sided hemiparesis SKIN: No Rash PSYCH; Flat affect Assessment & Plan Assessment/Plan (1) Acute exacerbation of chronic obstructive pulmonary disease: PLAN: Plan Patient is a 55-year-old gentleman with history of CVA with residual right-sidedhemiplegia and dysarthria resident at [facility] brought in with shortness of breath and altered mental status. Chest x-ray demonstrated pulmonary edema with inability to exclude right lower lobe opacity. Patient wasstarted on antibiotic therapy for suspected pneumonia with gram-negative organisms and admitted to a monitored bed for further management, 1. Acute metabolic encephalopathy ? Secondary to acute hypoxic respiratory failure from pneumonia as well as suspected CHF ? 02/02/2025; patient appears to be back to his baseline 2. Acute hypoxic respiratory failure ? Requiring high flow oxygen via Airvo. This was thought to be secondary to pneumonia admitted to a monitored bed for treatment of the underlying etiology ? 02/02/2025; patient remains on high flow oxygen?Airvo plan is to attempt to weanpatient off 3. Pneumonia with suspected gram-negative organisms ? Blood and sputum cultures sent. Patient placed on levofloxacin and placed on oxygen titrated to keep Pulse Ox greater than 90. Viral respiratory panel in addition to COVID also obtained on admission. Patient viral respiratory panel came back positive for rhinovirus 4. Suspected congestive heart failure ? Patient is currently being managed on a monitored bed ordered proBNP as well as 2D echo patient started on strict input and output, daily weight, fluid restriction as well as diuretic therapy ? 02/02/2025Patient has significant response to diuretic therapy currently negative fluid balance of 2.5 L over the past 24 hours. 2 D echo was ordered the day prior results pending ? 02/03/2025; adjusted Lasix dose 5. 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 Dyslipidemia ?Patient is on statin therapy, continued at home dose 7. Diabetes mellitus type II -patient's oral hypoglycemics held. Placed on Accu-Cheks a.c. and at bedtime andcovered with sliding scale insulin 8. Class I obesity with BMI of 34.7 ? Complicating care 9. Tobacco dependence ? Counseled on cessation, offered nicotine patch for tobacco cravings 10. Mood disorder ? With history of anxiety depression and bipolar disorder did continue patient psychotropic medications 11. Abnormal x-ray involving the right shoulder ? Imaging studies on admission did demonstrate low riding right humerus; dislocation could not be excluded. Subsequent repeat dedicated shoulder x-ray demonstrated Widened cc ligamentous space consistent with ligamentous injury. Management PT OT as tolerated in addition to pain meds 12. DVT prophylaxis ? On enoxaparin 13. Hypophosphatemia ? Corrected per protocol repeat phosphate levels ordered for a.m. 14. Anemia ? Secondary to chronic disorder monitoring H&H and transfuse if patient becomes symptomatic or hemoglobin falls below 7 Charges/Coding Visit Charges Inpatient E&M: 15022 Subs Hosp L2 02/03/25957 <Electronically signed by Fredo Alberts MD> Cosigner Signature (if applicable): CC: ~ Signed [facility] Work Phone: 1(196) 130-860808-09-2025 Progress note [facility] Medical Records Department [address] [place] [id number] Progress Note - Hospitalist 02/03/25 0710 MR#: [id number] Acct: [id number] Name: RIGO GARCIA Rep #:[id number] : 1970 55 From: Fredo Alberts MD PCP: Dr. Mame Bright MD Status:ADM IN Location: [place] [address] Reason for Visit Chief Complaint: Cough, dyspnea, wheezing. Subjective Subjective Patient continues to diurese well. Plan is to discontinue IV Lasix and start patient on p.o. Lasix.Patient 2D echo still pending Objective Data Objective Data Vital Signs: Vital Signs Temp Pulse Resp BP Pulse Ox O2 Del Method O2 Flow Rate 98.3 F 69 18 134/86 H 94 Nasal Cannula 2 02/02/25 22:00 02/03/25 06:45 02/03/25 06:45 02/02/25 22:00 02/03/25 06:45 02/03/25 06:45 02/03/25 06:45 FiO2 40 02/02/25 11:00 Oxygen Flow Rate (L/min) 2 Oxygen Delivery Method Nasal Cannula Weight: 105.2 kg Body Mass Index (BMI) 36.3 Intake & Output: Intake and Output for Last 24 Hours 02/01/25 02/02/25 02/03/25 23:59 23:59 23:59 Intake Total 4130 / 4570 2960 / 3640 1655 / 1655 Output Total 2300 / 4100 5250 / 6350 2950 / 2950 Balance 1830 / 470 -2290 / -2710 -1295 / -1295 Lab / Micro Data 02/03/25 05:27 02/03/25 05:27 Labs: Laboratory Results - last 24 hr 02/02/25 06:30: WBC 11.7 H, RBC 4.76, Hgb 12.4 L, Hct 41.4, MCV 87.0, MCH 26.1 L, MCHC 30.0 L, RDW Std Deviation 48.5 H, RDW Coeff of Thomas 15.3 H, Plt Count 221,MPV 10.7, Immature Gran % (Auto) 0.300,Neut % (Auto) 86.0 H, Lymph % (Auto) 7.5L, [place] % (Auto) 6.1, Eos % (Auto) 0.0, Baso % (Auto) 0.1, Absolute Neuts (auto)10.1 H, Absolute Lymphs (auto) 0.88, Nucleated RBC % 0, Sodium 139, Potassium 4.2, Chloride 101, Carbon Dioxide 25.8, Anion Gap 12, BUN 15, Creatinine 0.93, Estim Creat Clear Pdgg178.75, Est GFR (MDRD) Non-Af 97, BUN/Creatinine Ratio 15.7, Glucose 201 H, Calcium 9.7, Phosphorus2.6 L, Magnesium 1.6, NT pro BNP II420 02/02/25 09:49: Phosphorus 3.3 02/02/25 11:21: POC Glucose 212 H 02/02/25 16:53: POC Glucose 209 H 02/02/25 20:46: POC Glucose 389 H 02/03/25 05:27: WBC 12.0 H, RBC 4.69, Hgb 12.3 L, Hct 40.1, MCV 85.5, MCH 26.2 L, MCHC 30.7 L, RDW Std Deviation 47.6 H, RDW Coeff of Thomas 15.2 H, Plt Count 237,MPV 10.5, Immature Gran % (Auto) 0.400,Neut % (Auto) 85.0 H, Lymph % (Auto) 7.9L, [place] % (Auto) 6.6, Eos % (Auto) 0.0, Baso % (Auto) 0.1, Absolute Neuts (auto)10.2 H, Absolute Lymphs (auto) 0.95, Nucleated RBC % 0, Sodium 136, Potassium 4.2, Chloride 97 L, Carbon Dioxide 27.1, Anion Gap 12, BUN 21 H, Creatinine 1.09, Estim Creat Clear Calc 88.53, Est GFR (MDRD) Non-Af 80, BUN/Creatinine Ratio 19.3, Glucose 337 H, Calcium 9.3 02/03/25 05:56: POC Glucose 336 H Micro: Microbiology 01/31/25 21:45 Blood Culture (Wb) - Left Forearm Blood Culture - Preliminary No growth in 48 hours. 01/31/25 21:12 Blood Culture (Wb) - Left Hand Blood Culture - Preliminary No growth in 48 hours. 01/31/25 22:54 Urine, Random Legionella Antigen - Final 01/31/25 22:54 Urine, Random Streptococcus pneumoniae Antigen (M - Final 01/31/25 23:50 Mucosa - Nasopharyngeal Respiratory Panel (PCR) - Final Rhinovirus Physical Exam Narrative GENERAL: cooperative HEENT: Atraumatic; normocephalic EYES; Anicteric, Normal Conjunctiva NECK; supple, normal thyroid, RESPIRATORY: Diminished to auscultation CARDIOVASCULAR: Regular S1 S2, GI: soft, normoactive bowel sounds, : No Renal angle tenderness; EXTREMITIES: No edema, no clubbing, MUSCULOSKELETAL: Wasting of right hand NEURO: Awake; right-sided hemiparesis SKIN: No Rash PSYCH; Flat affect Assessment & Plan Assessment/Plan (1) Acute exacerbation of chronic obstructive pulmonary disease: PLAN: Plan Patient is a 55-year-old gentleman with history of CVA with residual right- sidedhemiplegia and dysarthria resident at [facility] brought in with shortness of breath and altered mental status. Chest x-ray demonstrated pulmonary edema with inability to exclude right lower lobe opacity. Patient wasstarted on antibiotic therapy for suspected pneumonia with gram-negative organisms and admitted to a monitored bed for further management, 1. Acute metabolic encephalopathy ? Secondary to acute hypoxic respiratory failure from pneumonia as well as suspected CHF ? 02/02/2025; patient appears to be back to his baseline 2. Acute hypoxic respiratory failure ? Requiring high flow oxygen via Airvo. This was thought to be secondary to pneumonia admitted to amonitored bed for treatment of the underlying etiology ? 02/02/2025; patient remains on high flow oxygen?Airvo plan is to attempt to weanpatient off 3. Pneumonia with suspected gram-negative organisms ? Blood and sputum cultures sent. Patient placed on levofloxacin and placed on oxygen titrated to keep Pulse Ox greater than 90. Viral respiratory panel in addition to COVID also obtained on admission. Patient viral respiratory panel came back positive for rhinovirus 4. Suspected congestive heart failure ? Patient is currently being managed on a monitored bed ordered proBNP as well as 2D echo patient started on strict input and output, daily weight, fluid restriction as well as diuretic therapy ? 02/02/2025Patient has significant response to diuretic therapy currently negative fluid balance of 2.5 L over the past 24 hours. 2 D echo was ordered the day prior results pending ? 02/03/2025; adjusted Lasix dose 5. 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 Dyslipidemia ?Patient is on statin therapy, continued at home dose 7. Diabetes mellitus type II -patient's oral hypoglycemics held. Placed on Accu-Cheks a.c. and at bedtime andcovered with sliding scale insulin 8. Class I obesity with BMI of 34.7 ? Complicating care 9. Tobacco dependence ? Counseled on cessation, offered nicotine patch for tobacco cravings 10. Mood disorder ? With history of anxiety depression and bipolar disorder did continue patient psychotropic medications 11. Abnormal x-ray involving the right shoulder ? Imaging studies on admission did demonstrate low riding right humerus; dislocation could not be excluded. Subsequent repeat dedicated shoulder x-ray demonstrated Widened cc ligamentous space consistent with ligamentous injury. Management PT OT as tolerated in addition to pain meds 12. DVT prophylaxis ? On enoxaparin 13. Hypophosphatemia ? Corrected per protocol repeat phosphate levels ordered for a.m. 14. Anemia ? Secondary to chronic disorder monitoring H&H and transfuse if patient becomes symptomatic or hemoglobin falls below 7 Charges/Coding Visit Charges Inpatient E&M: 50587 Subs Hosp L2 02/03/25 9124 Cosigner Signature (if applicable): CC: ~ Signed [facility]08-08-2025 Progress note Author Fredo Alberts [facility] Note Date/Time February 02, 2025 9:1 1am [facility] Medical Records Department [address] [place] [address] Progress Note - Hospitalist 02/02/25722 MR#: [id number] Acct: [id number] Name: RIGO GARCIA Rep #:[id number] : 1970 55 From: Fredo Alberts MD PCP: Dr. Mame Bright MD Status:ADM IN Location: [place] [address] Reason for Visit Chief Complaint: Cough, dyspnea, wheezing. Subjective Subjective Patient has significant response to diuretic therapy currently negative fluid balance of 2.5 L over the past 24 hours. Objective Data Objective Data Vital Signs: Vital Signs Temp Pulse Resp BP Pulse Ox O2 Del Method O2 Flow Rate 98.4 F 58 L 19 H 128/81 H 94 Airvo 35 02/02/25 04:00 02/02/25 05:00 02/02/25 05:00 02/02/25 05:00 02/02/25 05:00 02/02/25 05:00 02/01/25 19:00 FiO2 40 02/02/25 05:00 Oxygen Flow Rate (L/min) 35 Oxygen Delivery Method Airvo Weight: 103.2 kg Body Mass Index (BMI) 35.6 Intake & Output: Intake and Output for Last 24 Hours 01/31/25 02/01/25 02/02/25 23:59 23:59 23:59 Intake Total 4130 / 4570 1295 / 1295 Output Total 2300 / 4100 3000 / 3000 Balance 1830 / 470 -1705 / -1705 Lab / Micro Data 02/02/25 06:30 02/02/25 06:30 Labs: Laboratory Results - last 24 hr 02/01/25 01:43: POC Glucose 186 H 02/01/25 11:14: POC Glucose 257 H 02/01/25 16:16: POC Glucose 250 H 02/01/25 22:22: POC Glucose 224 H 02/02/25 06:24: POC Glucose 212 H Micro: Microbiology 01/31/25 23:50 Mucosa - Nasopharyngeal Respiratory Panel (PCR) - Final Rhinovirus Physical Exam Narrative GENERAL: cooperative HEENT: Atraumatic; normocephalic EYES; Anicteric, Normal Conjunctiva NECK; supple, normal thyroid, RESPIRATORY: Diminished to auscultation CARDIOVASCULAR: Regular S1 S2, GI: soft, normoactive bowel sounds, : No Renal angle tenderness; EXTREMITIES: No edema, no clubbing, MUSCULOSKELETAL: Wasting of right hand NEURO: Awake; right-sided hemiparesis SKIN: No Rash PSYCH; Flat affect Assessment & Plan Assessment/Plan (1) Acute exacerbation of chronic obstructive pulmonary disease: PLAN: Plan Patient is a 55-year-old gentleman with history of CVA with residual right-sidedhemiplegia and dysarthria resident at [facility] brought in with shortness of breath and altered mental status. Chest x-ray demonstrated pulmonary edema with inability to exclude right lower lobe opacity. Patient wasstarted on antibiotic therapy for suspected pneumonia with gram-negative organisms and admitted to a monitored bed for further management, 1. Acute metabolic encephalopathy ? Secondary to acute hypoxic respiratory failure from pneumonia as well as suspected CHF ? 02/02/2025; patient appears to be back to his baseline 2. Acute hypoxic respiratory failure ? Requiring high flow oxygen via Airvo. This was thought to be secondary to pneumonia admitted to a monitored bed for treatment of the underlying etiology ? 02/02/2025; patient remains on high flow oxygen?Airvo plan is to attempt to weanpatient off 3. Pneumonia with suspected gram-negative organisms ? Blood and sputum cultures sent. Patient placed on levofloxacin and placed on oxygen titrated to keep Pulse Ox greater than 90. Viral respiratory panel in addition to COVID also obtained on admission. Patient viral respiratory panel came back positive for rhinovirus 4. Suspected congestive heart failure ? Patient is currently being managed on a monitored bed ordered proBNP as well as 2D echo patient started on strict input and output, daily weight, fluid restriction as well as diuretic therapy ? 02/02/2025Patient has significant response to diuretic therapy currently negative fluid balance of 2.5 L over the past 24 hours. 2 D echo was ordered the day prior results pending 5. 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 Dyslipidemia ?Patient is on statin therapy, continued at home dose 7. Diabetes mellitus type II -patient's oral hypoglycemics held. Placed on Accu-Cheks a.c. and at bedtime andcovered with sliding scale insulin 8. Class I obesity with BMI of 34.7 ? Complicating care 9. Tobacco dependence ? Counseled on cessation, offered nicotine patch for tobacco cravings 10. Mood disorder ? With history of anxiety depression and bipolar disorder did continue patient psychotropic medications 11. Abnormal x-ray involving the right shoulder ? Imaging studies on admission did demonstrate low riding right humerus; dislocation could not be excluded. Subsequent repeat dedicated shoulder x-ray demonstrated Widened cc ligamentous space consistent with ligamentous injury. Management PT OT as tolerated in addition to pain meds 12. DVT prophylaxis ? On enoxaparin 13. Hypophosphatemia ? Corrected per protocol repeat phosphate levels ordered for a.m. 14. Anemia ? Secondary to chronic disorder monitoring H&H and transfuse if patient becomes symptomatic or hemoglobin falls below 7 Charges/Coding Visit Charges Inpatient E&M: 78144 Subs Hosp L3 02/02/25 0911 <Electronically signed by Fredo Alberts MD> Cosigner Signature (if applicable): CC: ~ Signed [facility] Work Phone: 1(518) 979-586008-08-2025 Progress note [facility] Medical Records Department [address] [place] [address] Progress Note - Hospitalist 02/02/25722 MR#: [id number] Acct: [id number] Name: RIGO GARCIA Rep #:[id number] : 1970 55 From: Fredo Alberts MD PCP: Dr. Mame Bright MD Status:ADM IN Location: [place] [address] Reason for Visit Chief Complaint: Cough, dyspnea, wheezing. Subjective Subjective Patient has significant response to diuretic therapy currently negative fluid balance of 2.5 L overthe past 24 hours. Objective Data Objective Data Vital Signs: Vital Signs Temp Pulse Resp BP Pulse Ox O2 Del Method O2 Flow Rate 98.4 F 58 L 19 H 128/81 H 94 Airvo 35 02/02/25 04:00 02/02/25 05:00 02/02/25 05:00 02/02/25 05:00 02/02/25 05:00 02/02/25 05:00 02/01/25 19:00 FiO2 40 02/02/25 05:00 Oxygen Flow Rate (L/min) 35 Oxygen Delivery Method Airvo Weight: 103.2 kg Body Mass Index (BMI) 35.6 Intake & Output: Intake and Output for Last 24 Hours 01/31/25 02/01/25 02/02/25 23:59 23:59 23:59 Intake Total 4130 / 4570 1295 / 1295 Output Total 2300 / 4100 3000 / 3000 Balance 1830 / 470 -1705 / -1705 Lab / Micro Data 02/02/25 06:30 02/02/25 06:30 Labs: Laboratory Results - last 24 hr 02/01/25 01:43: POC Glucose 186 H 02/01/25 11:14: POC Glucose 257 H 02/01/25 16:16: POC Glucose 250 H 02/01/25 22:22: POC Glucose 224 H 02/02/25 06:24: POC Glucose 212 H Micro: Microbiology 01/31/25 23:50 Mucosa - Nasopharyngeal Respiratory Panel (PCR) - Final Rhinovirus Physical Exam Narrative GENERAL: cooperative HEENT: Atraumatic; normocephalic EYES; Anicteric, Normal Conjunctiva NECK; supple, normal thyroid, RESPIRATORY: Diminished to auscultation CARDIOVASCULAR: Regular S1 S2, GI: soft, normoactive bowel sounds, : No Renal angle tenderness; EXTREMITIES: No edema, no clubbing, MUSCULOSKELETAL: Wasting of right hand NEURO: Awake; right-sided hemiparesis SKIN: No Rash PSYCH; Flat affect Assessment & Plan Assessment/Plan (1) Acute exacerbation of chronic obstructive pulmonary disease: PLAN: Plan Patient is a 55-year-old gentleman with history of CVA with residual right- sidedhemiplegia and dysarthria resident at [facility] brought in with shortness of breath and altered mental status. Chest x-ray demonstrated pulmonary edema with inability to exclude right lower lobe opacity. Patient wasstarted on antibiotic therapy for suspected pneumonia with gram-negative organisms and admitted to a monitored bed for further management, 1. Acute metabolic encephalopathy ? Secondary to acute hypoxic respiratory failure from pneumonia as well as suspected CHF ? 02/02/2025; patient appears to be back to his baseline 2. Acute hypoxic respiratory failure ? Requiring high flow oxygen via Airvo. This was thought to be secondary to pneumonia admitted to amonitored bed for treatment of the underlying etiology ? 02/02/2025; patient remains on high flow oxygen?Airvo plan is to attempt to weanpatient off 3. Pneumonia with suspected gram-negative organisms ? Blood and sputum cultures sent. Patient placed on levofloxacin and placed on oxygen titrated to keep Pulse Ox greater than 90. Viral respiratory panel in addition to COVID also obtained on admission. Patient viral respiratory panel came back positive for rhinovirus 4. Suspected congestive heart failure ? Patient is currently being managed on a monitored bed ordered proBNP as well as 2D echo patient started on strict input and output, daily weight, fluid restriction as well as diuretic therapy ? 02/02/2025Patient has significant response to diuretic therapy currently negative fluid balance of 2.5 L over the past 24 hours. 2 D echo was ordered the day prior results pending 5. 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 Dyslipidemia ?Patient is on statin therapy, continued at home dose 7. Diabetes mellitus type II -patient's oral hypoglycemics held. Placed on Accu-Cheks a.c. and at bedtime andcovered with sliding scale insulin 8. Class I obesity with BMI of 34.7 ? Complicating care 9. Tobacco dependence ? Counseled on cessation, offered nicotine patch for tobacco cravings 10. Mood disorder ? With history of anxiety depression and bipolar disorder did continue patient psychotropic medications 11. Abnormal x-ray involving the right shoulder ? Imaging studies on admission did demonstrate low riding right humerus; dislocation could not be excluded. Subsequent repeat dedicated shoulder x-ray demonstrated Widened cc ligamentous space consistent with ligamentous injury. Management PT OT as tolerated in addition to pain meds 12. DVT prophylaxis ? On enoxaparin 13. Hypophosphatemia ? Corrected per protocol repeat phosphate levels ordered for a.m. 14. Anemia ? Secondary to chronic disorder monitoring H&H and transfuse if patient becomes symptomatic or hemoglobin falls below 7 Charges/Coding Visit Charges Inpatient E&M: 45233 Subs Hosp L3 02/02/25 0911 Cosigner Signature (if applicable): CC: ~ Signed [facility]08-07-2025 Progress note Author Fredo Alberts [facility] Note Date/Time February 01, 2025 11: 06am [facility] Medical Records Department [address] [place] [address] Progress Note - Hospitalist 02/01/25 1018 MR#: [id number] Acct: [id number] Name: RIGO GARCIA Rep #:[id number] : 1970 55 From: Fredo Alberts MD PCP: Dr. Mame Bright MD Status:ADM IN Location: [place] [address] Reason for Visit Chief Complaint: Cough, dyspnea, wheezing. Subjective Subjective Patient is a 55-year-old gentleman with history of CVA with residual right-sidedhemiplegia and dysarthria resident at [facility] brought in with shortness of breath. Chest x-ray demonstrated pulmonary edema with inability toexclude right lower lobe opacity. Patient was started on antibiotic therapy forsuspected pneumonia with gram-negative organisms and admitted to a monitored bedfor further management, Objective Data Objective Data Vital Signs: Vital Signs Temp Pulse Resp BP Pulse Ox O2 Del Method O2 Flow Rate 98.4 F 66 34 H 128/74 H 90 Airvo 45 02/01/25 06:00 02/01/25 07:13 02/01/25 07:13 02/01/25 07:00 02/01/25 07:55 02/01/25 07:55 02/01/25 07:55 FiO2 50 02/01/25 07:55 Oxygen Flow Rate (L/min) 45 Oxygen Delivery Method Airvo Weight: 100.5 kg Body Mass Index (BMI) 34.7 Intake & Output: Intake and Output for Last 24 Hours 01/30/25 01/31/25 02/01/25 23:59 23:59 23:59 Intake Total 1690 / 1690 Output Total 900 / 900 Balance 790 / 790 Lab / Micro Data 02/01/25 06:02 02/01/25 06:02 Labs: Laboratory Results - last 24 hr 01/31/25 21:12: WBC 10.2, RBC 4.95, Hgb 13.0, Hct 42.7, MCV 86.3, MCH 26.3 L, MCHC 30.4 L, RDW Std Deviation 48.1 H, RDW Coeff of Thomas 15.4 H, Plt Count 239, MPV 10.1, Immature Gran % (Auto) 0.300, Neut % (Auto) 67.9, Lymph % (Auto) 20.8,[place] % (Auto) 8.8, Eos % (Auto) 1.8, Baso % (Auto) 0.4, Absolute Neuts (auto) 6.9, Absolute Lymphs (auto) 2.12, Nucleated RBC % 0, PT 13.9, INR 1.1, APTT 26.2, Sodium 145, Potassium 4.3, Chloride 105, Carbon Dioxide 28.3, Anion Gap 12, BUN 17, Creatinine 1.17, Estim Creat Clear Calc 83.51, Est GFR (MDRD) Non-Af74, BUN/Creatinine Ratio 14.4, Glucose 114 H, Lactic Acid 2.2 H*, Calcium 9.4, Total Bilirubin 0.27, AST 10, ALT < 5, Alkaline Phosphatase 143 H, Total Protein7.1, Albumin 4.3, Globulin 2.8, Albumin/Globulin Ratio 1.5, Procalcitonin 0.16 H 01/31/25 22:54: Urine Color Yellow, Urine Clarity Clear, Urine pH 5.0, Ur Specific Aurora 1.020, Urine Protein 30 H, Urine Glucose (UA) Normal, Urine Ketones Negative, Urine Occult Blood Negative, Urine Nitrite Negative, Urine Bilirubin 1 H, Urine Urobilinogen 4 H, Ur Leukocyte Esterase 25 H, Urine RBC 0 SEEN, Urine WBC 0 SEEN, Ur Squamous Epith Cells 0 SEEN, Urine Bacteria RARE, Urine Mucus 0 SEEN 02/01/25 01:43: POC Glucose 186 H 02/01/25 01:47: Lactic Acid 2.9 H* 02/01/25 06:00: POC Glucose 176 H 02/01/25 06:02: WBC 9.7, RBC 4.67, Hgb 12.2 L, Hct 41.2, MCV 88.2, MCH 26.1 L, MCHC 29.6 L, RDW Std Deviation 49.1 H, RDW Coeff of Thomas 15.3 H, Plt Count 207, MPV 10.2, Immature Gran % (Auto) 0.300, Neut % (Auto) 94.2 H, Lymph % (Auto) 4.3L, [place] % (Auto) 1.1, Eos % (Auto) 0.0, Baso % (Auto) 0.1, Absolute Neuts (auto)9.2 H, Absolute Lymphs (auto) 0.42 L, Nucleated RBC % 0, Sodium 141, Potassium 4.6, Chloride 104, Carbon Dioxide 22.1, Anion Gap 15, BUN 15, Creatinine 1.09, Estim Creat Clear Calc 86.49, Est GFR (MDRD) Non-Af 80, BUN/Creatinine Ratio 13.3, Glucose 195 H, Calcium 9.2, Total Bilirubin 0.25, AST 18, ALT 7, Alkaline Phosphatase 130 H, Total Protein 6.7, Albumin 4.1, Globulin 2.6, Albumin/Globulin Ratio 1.6 Micro: Microbiology 01/31/25 23:50 Mucosa - Nasopharyngeal Respiratory Panel (PCR) - Final Rhinovirus ABG Data ABG results: ABG 01/31/25 02/01/25 22:18 04:48 Specimen Type ART ART Sample Site L Radial L Radial pH 7.32 L 7.31 L Bicarbonate Actual 21.0 L 27.5 H Total CO2 22 29 Base Excess -5 L 1 O2 Saturation 91 L 95 O2 % 6.0 50.0 ABG pCO2 40.8 54.3 H ABG pO2 65 L 82 Alin Test Positive Positive O2 Delivery Device Cannula CPAP Vent Mode Not entered Not entered Radiography Diagnostic Testing: Radiology Impression Shoulder X-Ray 01/31/25 11:46 IMPRESSION: Widened cc ligamentous space consistent with ligamentous injury. Correlate as to acuity. Reading Location: [place] [address] Chest X-Ray 01/31/25 21:32 IMPRESSION: Mild pulmonary edema. Right lower lobe opacity not excluded. Stable mild cardiomegaly. Low riding right humerus; dislocation is not entirely excluded.. Reading Location: [facility] Physical Exam Narrative GENERAL: cooperative HEENT: Atraumatic; normocephalic EYES; Anicteric, Normal Conjunctiva NECK; supple, normal thyroid, RESPIRATORY: Diminished to auscultation CARDIOVASCULAR: Regular S1 S2, GI: soft, normoactive bowel sounds, : No Renal angle tenderness; EXTREMITIES: No edema, no clubbing, MUSCULOSKELETAL: Wasting of right hand NEURO: Awake; right-sided hemiparesis SKIN: No Rash PSYCH; Flat affect Assessment & Plan Assessment/Plan (1) Acute exacerbation of chronic obstructive pulmonary disease: PLAN: Plan Patient is a 55-year-old gentleman with history of CVA with residual right-sidedhemiplegia and dysarthria resident at [facility] brought in with shortness of breath and altered mental status. Chest x-ray demonstrated pulmonary edema with inability to exclude right lower lobe opacity. Patient wasstarted on antibiotic therapy for suspected pneumonia with gram-negative organisms and admitted to a monitored bed for further management, 1. Acute metabolic encephalopathy ? Secondary to acute hypoxic respiratory failure from pneumonia as well as suspected CHF 2. Acute hypoxic respiratory failure ? Requiring high flow oxygen via Airvo. This was thought to be secondary to pneumonia admitted to a monitored bed for treatment of the underlying etiology 3. Pneumonia with suspected gram-negative organisms ? Blood and sputum cultures sent. Patient placed on levofloxacin and placed on oxygen titrated to keep Pulse Ox greater than 90. Viral respiratory panel in addition to COVID also obtained on admission. Patient viral respiratory panel came back positive for rhinovirus 4. Suspected congestive heart failure ? Patient is currently being managed on a monitored bed ordered proBNP as well as 2D echo patient started on strict input and output, daily weight, fluid restriction as well as diuretic therapy 5. 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 Dyslipidemia ?Patient is on statin therapy, continued at home dose 7. Diabetes mellitus type II -patient's oral hypoglycemics held. Placed on Accu-Cheks a.c. and at bedtime andcovered with sliding scale insulin 8. Class I obesity with BMI of 34.7 ? Complicating care 9. Tobacco dependence ? Counseled on cessation, offered nicotine patch for tobacco cravings 10. Mood disorder ? With history of anxiety depression and bipolar disorder did continue patient psychotropic medications 11. Abnormal x-ray involving the right shoulder ? Imaging studies on admission did demonstrate low riding right humerus; dislocation could not be excluded. Subsequent repeat dedicated shoulder x-ray demonstrated Widened cc ligamentous space consistent with ligamentous injury. Management PT OT as tolerated in addition to pain meds 12. DVT prophylaxis ? On enoxaparin Time spent in the patient's overall evaluation,decision-making process, review of diagnostic data, adjustment of management, discussion with other providers, nursing nursing and ancillary staff involved in patient's care documentation,50 Minutes Charges/Coding Visit Charges Inpatient E&M: 74082 Subs Hosp L3 02/01/25 1106 <Electronically signed by Fredo Alberts MD> Cosigner Signature (if applicable): CC: ~ Signed [facility] Work Phone: 1(117) 255-481408-07-2025 Progress note [facility] Medical Records Department [address] [place] [address] Progress Note - Hospitalist 02/01/25 1018 MR#: [id number] Acct: [id number] Name: RIGO GARCIA Rep #:[id number] : 1970 55 From: Fredo Alberts MD PCP: Dr. Mame Bright MD Status:ADM IN Location: [place] [address] Reason for Visit Chief Complaint: Cough, dyspnea, wheezing. Subjective Subjective Patient is a 55-year-old gentleman with history of CVA with residual right- sidedhemiplegia and dysarthria resident at [facility] brought in with shortness of breath. Chest x-ray demonstrated pulmonary edema with inability toexclude right lower lobe opacity. Patient was started on antibiotic therapy forsuspected pneumonia with gram-negative organisms and admitted to a monitored bedfor further management, Objective Data Objective Data Vital Signs: Vital Signs Temp Pulse Resp BP Pulse Ox O2 Del Method O2 Flow Rate 98.4 F 66 34 H 128/74 H 90 Airvo 45 02/01/25 06:00 02/01/25 07:13 02/01/25 07:13 02/01/25 07:00 02/01/25 07:55 02/01/25 07:55 02/01/25 07:55 FiO2 50 02/01/25 07:55 Oxygen Flow Rate (L/min) 45 Oxygen Delivery Method Airvo Weight: 100.5 kg Body Mass Index (BMI) 34.7 Intake & Output: Intake and Output for Last 24 Hours 01/30/25 01/31/25 02/01/25 23:59 23:59 23:59 Intake Total 1690 / 1690 Output Total 900 / 900 Balance 790 / 790 Lab / Micro Data 02/01/25 06:02 02/01/25 06:02 Labs: Laboratory Results - last 24 hr 01/31/25 21:12: WBC 10.2, RBC 4.95, Hgb 13.0, Hct 42.7, MCV 86.3, MCH 26.3 L, MCHC 30.4 L, RDW Std Deviation 48.1 H, RDW Coeff of Thomas 15.4 H, Plt Count 239, MPV 10.1, Immature Gran % (Auto) 0.300, Neut % (Auto) 67.9, Lymph % (Auto) 20.8,[place] % (Auto) 8.8, Eos % (Auto) 1.8, Baso % (Auto) 0.4, Absolute Neuts (auto) 6.9, Absolute Lymphs (auto) 2.12, Nucleated RBC % 0, PT 13.9, INR 1.1, APTT 26.2, Sodium 145, Potassium 4.3, Chloride 105, Carbon Dioxide 28.3, Anion Gap 12, BUN 17, Creatinine 1.17, Estim Creat Clear Calc 83.51, Est GFR (MDRD) Non-Af74, BUN/Creatinine Ratio 14.4, Glucose 114 H, Lactic Acid 2.2 H*, Calcium 9.4, Total Bilirubin 0.27, AST 10, ALT < 5, Alkaline Phosphatase 143 H, Total Protein7.1, Albumin 4.3, Globulin 2.8, Albumin/Globulin Ratio 1.5, Procalcitonin 0.16 H 01/31/25 22:54: Urine Color Yellow, Urine Clarity Clear, Urine pH 5.0, Ur Specific Aurora 1.020, Urine Protein 30 H, Urine Glucose (UA) Normal, Urine Ketones Negative, Urine Occult Blood Negative, Urine Nitrite Negative, Urine Bilirubin 1 H, Urine Urobilinogen 4 H, Ur Leukocyte Esterase 25 H, Urine RBC 0 SEEN, Urine WBC 0 SEEN, Ur Squamous Epith Cells 0 SEEN, Urine Bacteria RARE, Urine Mucus 0 SEEN 02/01/25 01:43: POC Glucose 186 H 02/01/25 01:47: Lactic Acid 2.9 H* 02/01/25 06:00: POC Glucose 176 H 02/01/25 06:02: WBC 9.7, RBC 4.67, Hgb 12.2 L, Hct 41.2, MCV 88.2, MCH 26.1 L, MCHC 29.6 L, RDW StdDeviation 49.1 H, RDW Coeff of Thomas 15.3 H, Plt Count 207, MPV 10.2, Immature Gran % (Auto) 0.300, Neut % (Auto) 94.2 H, Lymph % (Auto) 4.3L, [place] % (Auto) 1.1, Eos % (Auto) 0.0, Baso % (Auto) 0.1, Absolute Neuts (auto)9.2 H, Absolute Lymphs (auto) 0.42 L, Nucleated RBC % 0, Sodium 141, Potassium 4.6, Chloride 104, Carbon Dioxide 22.1, Anion Gap 15, BUN 15, Creatinine 1.09, Estim Creat Clear Calc 86.49, Est GFR (MDRD) Non-Af 80, BUN/Creatinine Ratio 13.3, Glucose 195 H, Calcium 9.2, Total Bilirubin 0.25, AST 18, ALT 7, Alkaline Phosphatase 130 H, Total Protein 6.7, Albumin 4.1, Globulin 2.6, Albumin/Globulin Ratio 1.6 Micro: Microbiology 01/31/25 23:50 Mucosa - Nasopharyngeal Respiratory Panel (PCR) - Final Rhinovirus ABG Data ABG results: ABG 01/31/25 02/01/25 22:18 04:48 Specimen Type ART ART Sample Site L Radial L Radial pH 7.32 L 7.31 L Bicarbonate Actual 21.0 L 27.5 H Total CO2 22 29 Base Excess -5 L 1 O2 Saturation 91 L 95 O2 % 6.0 50.0 ABG pCO2 40.8 54.3 H ABG pO2 65 L 82 Alin Test Positive Positive O2 Delivery Device Cannula CPAP Vent Mode Not entered Not entered Radiography Diagnostic Testing: Radiology Impression Shoulder X-Ray 01/31/25 11:46 IMPRESSION: Widened cc ligamentous space consistent with ligamentous injury. Correlate as to acuity. Reading Location: [place] [address] Chest X-Ray 01/31/25 21:32 IMPRESSION: Mild pulmonary edema. Right lower lobe opacity not excluded. Stable mild cardiomegaly. Low riding right humerus; dislocation is not entirely excluded.. Reading Location: [facility] Physical Exam Narrative GENERAL: cooperative HEENT: Atraumatic; normocephalic EYES; Anicteric, Normal Conjunctiva NECK; supple, normal thyroid, RESPIRATORY: Diminished to auscultation CARDIOVASCULAR: Regular S1 S2, GI: soft, normoactive bowel sounds, : No Renal angle tenderness; EXTREMITIES: No edema, no clubbing, MUSCULOSKELETAL: Wasting of right hand NEURO: Awake; right-sided hemiparesis SKIN: No Rash PSYCH; Flat affect Assessment & Plan Assessment/Plan (1) Acute exacerbation of chronic obstructive pulmonary disease: PLAN: Plan Patient is a 55-year-old gentleman with 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 Chest x-ray demonstrated pulmonary edema with inability to exclude right lower lobe opacity. Patient wasstarted on antibiotic therapy for suspected pneumonia with gram-negative organisms and admitted to a monitored bed for further management, 1. Acute metabolic encephalopathy ? Secondary to acute hypoxic respiratory failure from pneumonia as well as suspected CHF 2. Acute hypoxic respiratory failure ? Requiring high flow oxygen via Airvo. This was thought to be secondary to pneumonia admitted to amonitored bed for treatment of the underlying etiology 3. Pneumonia with suspected gram-negative organisms ? Blood and sputum cultures sent. Patient placed on levofloxacin and placed on oxygen titrated to keep Pulse Ox greater than 90. Viral respiratory panel in addition to COVID also obtained on admission. Patient viral respiratory panel came back positive for rhinovirus 4. Suspected congestive heart failure ? Patient is currently being managed on a monitored bed ordered proBNP as well as 2D echo patient started on strict input and output, daily weight, fluid restriction as well as diuretic therapy 5. 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 Dyslipidemia ?Patient is on statin therapy, continued at home dose 7. Diabetes mellitus type II -patient's oral hypoglycemics held. Placed on Accu-Cheks a.c. and at bedtime andcovered with sliding scale insulin 8. Class I obesity with BMI of 34.7 ? Complicating care 9. Tobacco dependence ? Counseled on cessation, offered nicotine patch for tobacco cravings 10. Mood disorder ? With history of anxiety depression and bipolar disorder did continue patient psychotropic medications 11. Abnormal x-ray involving the right shoulder ? Imaging studies on admission did demonstrate low riding right humerus; dislocation could not be excluded. Subsequent repeat dedicated shoulder x-ray demonstrated Widened cc ligamentous space consistent with ligamentous injury. Management PT OT as tolerated in addition to pain meds 12. DVT prophylaxis ? On enoxaparin Time spent in the patient's overall evaluation,decision-making process, review of diagnostic data, adjustment of management, discussion with other providers, nursing nursing and ancillary staff involved in patient's care documentation,50 Minutes Charges/Coding Visit Charges Inpatient E&M: 74328 Subs Hosp L3 02/01/25 1106 Cosigner Signature (if applicable): CC: ~ Signed [facility]08-07-2025 History and physical note Author Rosalva Fowler [facility] Note Date/Time February 01, 2025 2:1 1am [facility] Medical Records Department [address] [facility] [place] [address] H&P Exam - Hospitalist 01/31/25 2231 MR#: [id number] Acct: [id number] Name: RIGO GARCIA Rep #:[id number] : 1970 55 From: Rosalva Fowler MD PCP: Dr. Mame Bright MD Status:ADM IN Location: [facility] [id number] HPI - General General Date of Admission: 01/31/25 Date of Service: 01/31/25 Chief Complaint: Cough, dyspnea, wheezing. HPI Narrative The patient is a 55 y/o M w/ PMHx: Hx CVA w/ R sided hemiplegia/Chronic dysarthria, COPD, Tobacco use, PVD, BPH with obstructive pathology, Anxiety and Depression/Bipolar disorder/chart reported history of previous violent behavior/schizophrenia, Diabetes mellitus type II, most recent discharge noted 12/06/2024 following evaluation for acute on chronic hypoxic and hypercapnic respiratory failure secondary to COPD exacerbation and suspected aspiration pneumonia with associated lactic acidosis who presents to the [facility] ED on 01/31/2025 from his skilled facility with skilled facility report of difficulty breathing all day with increased cough, decreased appetite as wellas lethargy with hypoxia noted to be 86% on room air in addition to wheezing at his facility prompting ED evaluation. Patient also reports mild congestion. Heal notes that he occasionally has been coughing with oral food intake. Workupin the ED included T99, heart rate 84, BP 110/67, respiratory rate 28, [id number]% on room air with improvement to 94% on 3 L nasal cannula-> most recent repeat vitals upon evaluation T98.8, heart rate 96, BP 117/71, respiratory rate 30, 92% on 6 L nasal cannula--> eventually transition to Airvo, ABG with pH 7.32, bicarb 21, O2 saturation 91%, pCO2 40.8, PO265 on nasal cannula, CBC with WC 10.2, hemoglobin 13, MCV 86.3, platelet 239 without marked shift, lactic acid2.2, CMP with BUN/creatinine 17/1.17, GFR 74, glucose 114, alk phos 143 otherwise not marked appearing, chest x-ray with mild pulm edema with inability to exclude right lower lobe opacity and stable mild cardiomegaly with a low riding right humerus with dislocation unable to be entirely excluded, blood culture x 2 pending per ED. In the ED patient administered Solu-Medrol 125 mg IVx 1, Levaquin 750 mg IV x 1 and maintenance IV fluids. [facility] Medical History Hemiplegia and hemiparesis following cerebral infarction affecting right dominant side Dysarthria following cerebral infarction COPD (chronic obstructive pulmonary disease) Nicotine dependence, cigarettes, uncomplicated Violent behavior Unspecified lack of coordination Acute bronchitis, unspecified Pneumonitis due to inhalation of food and vomit Peripheral vascular disease, unspecified Need for assistance with personal care Gastro-esophageal reflux disease without esophagitis Benign prostatic hyperplasia with lower urinary tract symptoms CVA (cerebral vascular accident) Depression Diabetes Bipolar [...] 12/03/24 History release (Adult Low Dose Aspirin) buspirone 10 mg tablet 10 mg PO TID BIPOLAR 5 12/03/24 History calcium carbonate (Leslye-[place] 600 mg PO Q6H PRN hear tburn 07/31/24 11/26/24 History Heartburn Chew) cholecalciferol (vitamin D3) 1,250 1,250 mcg PO QWEEK SUPPLEMENT 07/31/24 11/27/24 History mcg (50,000 unit) capsule gabapentin 100 mg capsule 200 mg PO TID NEUROPATHIC PA IN 07/31/24 12/03/24 History lorazepam 1 mg tablet (Ativan) 1 mg PO TID agitation 0 07/31/24 12/03/24 History metformin 1,000 mg tablet 1,000 mg PO BID DM 07/31/24 12/03/24 History sennosides 8.6 mg-docusate sodium 1 tab-cap PO DAILY C ONSTIPATION 07/31/24 12/03/24 History 50 mg tablet (Colace 2-In-1) trazodone 50 mg tablet 50 mg PO QHS BIPOLAR 5 12/03/24 History vortioxetine 20 mg tablet 20 mg PO DAILY DEPRESSION 12/03/24 History (Trintellix) atorvastatin 10 mg tablet (Lipitor) 10 mg PO QHS 01/31 Unknown History lorazepam 1 mg tablet (Ativan) 1 mg PO Q8H 01/31/25 Un known History Allergy/AdvReac Type Severity Reaction Status Date / Time ibuprofen Allergy Rash Verified 01/31/25 20:24 Penicillins Allergy RASH Verified 01/31/25 20:24 adopted (Patient does not know his maternal/paternal biological family history.) Surgical History (Updated 01/31/25 @ 23:[address] Rosalva Fowler MD) No history of previous surgery Social History (Updated 01/31/25 @ 23:[address] Rosalva Fowler MD) housing: snf Smoking Status: Current every day smoker tobacco type: cigarettes Smoking packsper day: 0.25 Smoking cigarettes per day: 5.0 alcohol intake: never substance use type: does not use ROS ROS Narrative Admission Review of Systems: CONSTITUTIONAL: No weight loss, fever, chills, + weakness or fatigue. HEENT: + Mild congestion. Eyes: No visual loss, blurred vision, double vision or yellow sclerae. Ears, Nose, Throat: No hearing loss, sneezing, runny nose or sore throat. SKIN: No rash or itching, lesions, wounds. CARDIOVASCULAR: No chest pain, chest pressure or chest discomfort, palpitations,edema, orthopnea, syncopal events. RESPIRATORY: + Dyspnea, cough, wheezing. No hemoptysis. GASTROINTESTINAL: + Decreased appetite. No nausea, vomiting or diarrhea, abdominal pain, melena, BRBPR. GENITOURINARY: No dysuria, frequency, urgency or retention. NEUROLOGICAL: + History of CVA with chronic right-sided hemiplegia, dysarthria. No headache, dizziness, syncope, change in bowel or bladder control, seizure. MUSCULOSKELETAL: + muscle, back pain, joint pain or stiffness. HEMATOLOGIC: No anemia, bleeding or bruising. LYMPHATICS: No enlarged nodes. No history of splenectomy. PSYCHIATRIC: N+ history of anxiety and depression/bipolar disorder/violent behavior/schizophrenia. ENDOCRINOLOGIC: No reports of sweating, cold or heat intolerance. No polyuria orpolydipsia. ALLERGIES: No history of asthma, hives, eczema or rhinitis. Vital Signs Vital Signs Vital Signs: 01/31/25 20:19 01/31/25 20:28 01/31/25 20:31 Temperature 99 F 99 F Temperature Source Oral Oral Pulse Rate 84 99 Respiratory Rate 28 H 30 H Respiratory Effort Respiratory Depth Respiratory Pattern Blood Pressure 110/67 118/78 Blood Pressure Mean 81 91 Pulse Ox 88 92 94 Oxygen Delivery Method Room Air Nasal Cannula Nasal Cannula Oxygen Flow Rate (L/min) 2 3 01/31/25 20:32 01/31/25 20:43 01/31/25 21:19 Temperature Temperature Source Pulse Rate 101 H 100 Respiratory Rate 21 H 31 H Respiratory Effort Short of Breath Respiratory Depth Shallow Respiratory Pattern Tachypnea Tachypnea Blood Pressure 143/66 H Blood Pressure Mean 91 Pulse Ox 92 Oxygen Delivery Method Nasal Cannula Nasal Cannula Oxygen Flow Rate (L/min) 3 6 01/31/25 21:22 01/31/25 21:27 Temperature 98.8 F Temperature Source Oral Pulse Rate 96 Respiratory Rate 30 H Respiratory Effort Respiratory Depth Respiratory Pattern Blood Pressure 117/71 Blood Pressure Mean 86 Pulse Ox 95 92 Oxygen Delivery Method Nasal Cannula Nasal Cannula Oxygen Flow Rate (L/min) 6 Weight Weight: 229 lb 15.074 oz Body Mass Index (BMI) 34.9 Physical Exam Narrative Physical Examination: General: Awake, alert, oriented to self, place, recent events, notably dysarthric/ chronically garbled speech status post CVA, remains cooperative, seated upright in the ED bed, Airvo in place now. Skin: Normal color, normal turgor, no icterus, no cyanosis except occasional abrasion. HEENT: AT/NC, EOMI, mild bilateral scleral injection, PERRLA, moderately dry MM,poor dentition, no carotid bruits, no obvious JVD elevation however thickened neck makes evaluation difficult. Lungs: Diminished, greater bases, mildly coarse bilaterally, moist upper airway sounds, Airvo in place, occasional end expiratory wheezing, mildly increased respiratory rate but no distress. Heart: Regular rate and rhythm; no gallop, rub audible. Abdomen: Soft, obese, NTTP, normal distant BS, no obvious marked distention or tympany, no obvious HSM however habitus makes evaluation difficult. Extremities: No cyanosis, no clubbing, chronic bilateral lower extremity pedal to distal delatorre edema, Nas wraps in place. Neurological: Patient awake, alert, oriented as noted, cognitive function baseline intact; pupils equally reactive to light and accommodation, cranial nerves grossly normal, chronic right sided hemiplegia status post CVA, strength severely globally decreased. Psychiatric: Affect appears flat, fatigued, no acute evidence of depressive or anxiety feelings but does have underlying psychiatric history. Results Lab / Micro Data 01/31/25 21:12 01/31/25 21:12 Labs: Laboratory Results - last 24 hr 01/31/25 21:12: WBC 10.2, RBC 4.95, Hgb 13.0, Hct 42.7, MCV 86.3, MCH 26.3 L, MCHC 30.4 L, RDW Std Deviation 48.1 H, RDW Coeff of Thomas 15.4 H, Plt Count 239, MPV 10.1, Immature Gran % (Auto) 0.300, Neut % (Auto) 67.9, Lymph % (Auto) 20.8,[place] % (Auto) 8.8, Eos % (Auto) 1.8, Baso % (Auto) 0.4, Absolute Neuts (auto) 6.9, Absolute Lymphs (auto) 2.12, Nucleated RBC % 0, PT 13.9, INR 1.1, APTT 26.2, Sodium 145, Potassium 4.3, Chloride 105, Carbon Dioxide 28.3, Anion Gap 12, BUN 17, Creatinine 1.17, Estim Creat Clear Calc 83.51, Est GFR (MDRD) Non-Af74, BUN/Creatinine Ratio 14.4, Glucose 114 H, Lactic Acid 2.2 H*, Calcium 9.4, Total Bilirubin 0.27, AST 10, ALT < 5, Alkaline Phosphatase 143 H, Total Protein7.1, Albumin 4.3, Globulin 2.8, Albumin/Globulin Ratio 1.5 ABG Data ABG results: ABG 01/31/25 22:18 Specimen Type ART Sample Site L Radial pH 7.32 L Bicarbonate Actual 21.0 L Total CO2 22 Base Excess -5 L O2 Saturation 91 L O2 % 6.0 ABG pCO2 40.8 ABG pO2 65 L Alin Test Positive O2 Delivery Device Cannula Vent Mode Not entered Imaging Radiology Impression Chest X-Ray 01/31/25 21:32 IMPRESSION: Mild pulmonary edema. Right lower lobe opacity not excluded. Stable mild cardiomegaly. Low riding right humerus; dislocation is not entirely excluded.. Reading Location: [facility] Assessment & Plan Assessment/Plan (1) Acute exacerbation of chronic obstructive pulmonary disease: PLAN: Plan The patient is a 55 y/o M w/ PMHx: Hx CVA w/ R sided hemiplegia/Chronic dysarthria, COPD, Tobacco use, PVD, BPH with obstructive pathology, Anxiety and Depression/Bipolar disorder/chart reported history of previous violent behavior/schizophrenia, Diabetes mellitus type II, most recent discharge noted 12/06/2024 following evaluation for acute on chronic hypoxic and hypercapnic respiratory failure secondary to COPD exacerbation and suspected aspiration pneumonia with associated lactic acidosis who presents to the [facility] ED on 01/31/2025 from his skilled facility with skilled facility report of difficulty breathing all day with increased cough, decreased appetite as wellas lethargy with hypoxia noted to be 86% on room air in addition to wheezing at his facility prompting ED evaluation. #1. Acute Encephalopathy secondary to Acute Hypoxic Respiratory Failure (requiring Airvo initiation, hypoxia on ABG, up to 6L prior to airvo) secondary to Acute on Chronic COPD exacerbation with questionable right lower lobe infiltrate, possible aspiration, possible gram-negative/gram-positive organisms with mild lactic acidosis likely secondary to hypoxemia: Will admit to [facility], maintain on oxygen with wean as tolerated to room air, continue ATC duonebs, PRNalbuterol, IV methylprednisolone, maintain on IV Levaquin and Vancomycin given recent hospitalization prolonged as well as possible aspiration component with de-escalation as able, MRSA screen requested, HOB, IS parameters w/ pending sputum cultures, full respiratory viral panel and urine antigens. Procalcitonin requested. Bld cx x 2 obtained in the ED. PT/OT/ST/case management consulted fordischarge planning. #2. Atypical right humeral position on chest x-ray film: Noted right low ridinghumerus with possible dislocation, will request repeat focal right shoulder films to further investigate as patient does have chronic right sided hemiplegiastatus post CVA. #3. Anxiety and depression/bipolar disorder/chart reported history of violent behavior previously/schizophrenia: Will continue patient home psychiatric regimen including Abilify, buspirone with hold for sedation, vortioxetine, trazodone and low-dose Ativan for agitation which she commonly takes however again hold for sedation. #4. Diabetes mellitus type II with chronic neuropathy: Hold oral home regimen, continue home gabapentin regimen with hold for sedation as needed, maintain on ADA diet as long as clinically remains appropriate for oral intake with ST consultation requested given concerns for previous aspiration history, accu checks w/ ISS. #5. History CVA: Patient with significant right sided deficits/hemiplegia as well as chronic dysarthria, continue aspirin, statin, not on hypertensive regimen, holding oral diabetic regimen with adjustments as noted. PT, OT, ST consulted as well as case management for discharge planning. #6. Tobacco Abuse: Encouraged cessation, inpatient consultation per RT, NR if desired. #7. BPH with obstructive pathology: Per current list does not appear to be on regimen, monitor for retention. #8. Hyperlipidemia: Will continue patient on statin therapy. #9. Obesity: Weight loss and lifestyle changes encouraged. #10. DVT prophylaxis: Lovenox. #11. CODE status: Per facility paperwork will maintain FULL code status. Charges/Coding Visit Charges Inpatient E&M: 29505 Init Hosp L3 01/31/25 2319 <Electronically signed by Rosalva Fowler MD> Cosigner Signature (if applicable): CC: Dr. Rosalva Fowler MD; Dr. Mame Bright MD~ Signed ADDENDUM by Dr. Rosalva Fowler MD on 02/01/25 at 0211 Addendum SNF clarified paperwork for code status and it is in fact noted to be DNR-CCA, will change status. 02/01/25 021<Electronically signed by Rosalva Fowler MD> Cosigner Signature (if applicable): cc: Dr. Rosalva Fowler MD; Dr. Mame Bright MD ~* Signed [facility] Work Phone: 1(368) 454-438508-07-2025 Consult note Author Devyn Ken [facility] Note Date/Time February 01, 2025 1:5 4am [facility] Medical Records Department [address] [place] [address] Pharmacokinetic/Renal -Consult 02/01/25 0153 MR#: [id number] Acct: [id number] Name: RIGO GARCIA Rep #:[id number] : 1970 55 From: Devyn Cherry od PCP: Dr. Mame Bright MD Status:ADM IN Y Location: [place] [address] Consult Antibiotic Management Pharmacy has been consulted to manage selected antibiotic: Vancomycin Type of Intervention Type of Consult: New start Labs Labs: Sodium 145 mmol/L (133-145) 01/31/25 21:12 Potassium 4.3 mmol/L (3.3-5.1) 01/31/25 21:12 Chloride 105 mmol/L (98-108) 01/31/25 21:12 Carbon Dioxide 28.3 mmol/L (21.0-32.0) 01/31/25 21:12 Anion Gap 12 (5-15) 01/31/25 21:12 BUN 17 mg/dL (4-19) 01/31/25 21:12 Creatinine 1.17 mg/dL (0.70-1.20) 01/31/25 21:12 Est GFR (MDRD) Non-Af 74 (>60) 01/31/25 21:12 BUN/Creatinine Ratio 14.4 RATIO (10-20) 01/31/25 21:12 Glucose 114 mg/dL (70-99) H 01/31/25 21:12 Dosing Weight Weight used for dosin.5 kg Estimated Creatinine Clearance Estimated Creatinine Clearance: 85.51 Goal Trough Goal Trough: 15-20 mcg/mL Pharmacy Plan for Drug Dosing Pharmacy Plan for Drug Dosing: Pharmacy Service will continue to monitor and adjust dosing as required. LOADING DOSE 2000MG GIVEN 02/01 @ 0134. START 1750MG Q12H AND DRAW TROUGH PRIOR TO 4TH DOSE Follow-Up Labs Follow-Up Labs: Trough: Vancomycin Date/Time Labs Ordered Labs to be done on [date and time ordered]: 02/03 @ 1300 02/01/25 0154 <Electronically signed by Devyn burns> Date _ Devyn Quinonesood Cosigner Signature (if applicable): Date CC: ~ Signed [facility] Work Phone: 1(297) 125-331608-07-2025 History and physical note [facility] Medical Records Department [address] [place] [address] H&P Exam - Hospitalist 01/31/251 MR#: [id number] Acct: [id number] Name: RIGO GARCIA Rep #:[id number] : 1970 55 From: Rosalva Fowler MD PCP: Dr. Mame Bright MD Status:ADM IN Location: [place] [address] HPI - General General Date of Admission: 01/31/25 Date of Service: 01/31/25 Chief Complaint: Cough, dyspnea, wheezing. HPI Narrative The patient is a 55 y/o M w/ PMHx: Hx CVA w/ R sided hemiplegia/Chronic dysarthria, COPD, Tobacco use, PVD, BPH with obstructive pathology, Anxiety and Depression/Bipolar disorder/chart reported history of previous violent behavior/schizophrenia, Diabetes mellitus type II, most recent discharge noted 12/06/2024 following evaluation for acute on chronic hypoxic and hypercapnic respiratory failure secondary to COPD exacerbation and suspected aspiration pneumonia with associated lactic acidosis whopresents to the [facility] ED on 01/31/2025 from his skilled facility with skilled facility report of difficulty breathing all day with increased cough, decreased appetite as wellas lethargy with hypoxia noted to be 86% on room air in addition to wheezing at his facility prompting ED evaluation. Patient also reports mild congestion. Healso notes that he occasionally has been coughing with oral food intake. Workupin the ED included T99, heart rate 84, BP 110/67, respiratory rate 28, [id number] on room air with improvement to 94% on 3 L nasal cannula-> most recent repeat vitals upon evaluation T98.8, heart rate 96, BP 117/71, respiratory rate 30, 92% on 6 L nasal cannula--> eventually transition to Airvo, ABG with pH 7.32, bicarb 21, O2 saturation 91%, pCO2 40.8, [id number] nasal cannula, CBC with WC 10.2, hemoglobin 13, MCV 86.3, platelet 239 without marked shift, lactic acid2.2, CMP with BUN/creatinine 17/1.17, GFR 74, glucose 114, alk phos 143 otherwise not markedappearing, chest x-ray with mild pulm edema with inability to exclude right lower lobe opacity and stable mild cardiomegaly with a low riding right humerus with dislocation unable to be entirely excluded, blood culture x 2 pending per ED. In the ED patient administered Solu-Medrol 125 mg IVx 1, Levaquin 750 mg IV x 1 and maintenance IV fluids. [facility] Medical History Hemiplegia and hemiparesis following cerebral infarction affecting right dominant side Dysarthria following cerebral infarction COPD (chronic obstructive pulmonary disease) Nicotine dependence, cigarettes, uncomplicated Violent behavior Unspecified lack of coordination Acute bronchitis, unspecified Pneumonitis due to inhalation of food and vomit Peripheral vascular disease, unspecified Need for assistance with personal care Gastro-esophageal reflux disease without esophagitis Benign prostatic hyperplasia with lower urinary tract symptoms CVA (cerebral vascular accident) Depression Diabetes Bipolar [...] 12/03/24 History release (Adult Low Dose Aspirin) buspirone 10 mg tablet 10 mg PO TID BIPOLAR 5 12/03/24 History calcium carbonate (Leslye-[place] 600 mg PO Q6H PRN hear tburn 07/31/24 11/26/24 History Heartburn Chew) cholecalciferol (vitamin D3) 1,250 1,250 mcg PO QWEEK SUPPLEMENT 07/31/24 11/27/24 History mcg (50,000 unit) capsule gabapentin 100 mg capsule 200 mg PO TID NEUROPATHIC PA IN 07/31/24 12/03/24 History lorazepam 1 mg tablet (Ativan) 1 mg PO TID agitation 0 07/31/24 12/03/24 History metformin 1,000 mg tablet 1,000 mg PO BID DM 07/31/24 12/03/24 History sennosides 8.6 mg-docusate sodium 1 tab-cap PO DAILY C ONSTIPATION 07/31/24 12/03/24 History 50 mg tablet (Colace 2-In-1) trazodone 50 mg tablet 50 mg PO QHS BIPOLAR 5 12/03/24 History vortioxetine 20 mg tablet 20 mg PO DAILY DEPRESSION 12/03/24 History (Trintellix) atorvastatin 10 mg tablet (Lipitor) 10 mg PO QHS 01/31 Unknown History lorazepam 1 mg tablet (Ativan) 1 mg PO Q8H 01/31/25 Un known History Allergy/AdvReac Type Severity Reaction Status Date / Time ibuprofen Allergy Rash Verified 01/31/25 20:24 Penicillins Allergy RASH Verified 01/31/25 20:24 adopted (Patient does not know his maternal/paternal biological family history.) Surgical History (Updated 01/31/25 @ 23:[address] Rosalva Fowler MD) No history of previous surgery Social History (Updated 01/31/25 @ 23:[address] Rosalva Fowler MD) housing: snf Smoking Status: Current every day smoker tobacco type: cigarettes Smoking packsper day: 0.25 Smoking cigarettes per day: 5.0 alcohol intake: never substance use type: does not use ROS ROS Narrative Admission Review of Systems: CONSTITUTIONAL: No weight loss, fever, chills, + weakness or fatigue. HEENT: + Mild congestion. Eyes: No visual loss, blurred vision, double vision or yellow sclerae. Ears, Nose, Throat: No hearing loss, sneezing, runny nose or sore throat. SKIN: No rash or itching, lesions, wounds. CARDIOVASCULAR: No chest pain, chest pressure or chest discomfort, palpitations,edema, orthopnea, syncopal events. RESPIRATORY: + Dyspnea, cough, wheezing. No hemoptysis. GASTROINTESTINAL: + Decreased appetite. No nausea, vomiting or diarrhea, abdominal pain, melena, BRBPR. GENITOURINARY: No dysuria, frequency, urgency or retention. NEUROLOGICAL: + History of CVA with chronic right-sided hemiplegia, dysarthria. No headache, dizziness, syncope, change in bowel or bladder control, seizure. MUSCULOSKELETAL: + muscle, back pain, joint pain or stiffness. HEMATOLOGIC: No anemia, bleeding or bruising. LYMPHATICS: No enlarged nodes. No history of splenectomy. PSYCHIATRIC: N+ history of anxiety and depression/bipolar disorder/violent behavior/schizophrenia. ENDOCRINOLOGIC: No reports of sweating, cold or heat intolerance. No polyuria orpolydipsia. ALLERGIES: No history of asthma, hives, eczema or rhinitis. Vital Signs Vital Signs Vital Signs: 01/31/25 20:19 01/31/25 20:28 01/31/25 20:31 Temperature 99 F 99 F Temperature Source Oral Oral Pulse Rate 84 99 Respiratory Rate 28 H 30 H Respiratory Effort Respiratory Depth Respiratory Pattern Blood Pressure 110/67 118/78 Blood Pressure Mean 81 91 Pulse Ox 88 92 94 Oxygen Delivery Method Room Air Nasal Cannula Nasal Cannula Oxygen Flow Rate (L/min) 2 3 01/31/25 20:32 01/31/25 20:43 01/31/25 21:19 Temperature Temperature Source Pulse Rate 101 H 100 Respiratory Rate 21 H 31 H Respiratory Effort Short of Breath Respiratory Depth Shallow Respiratory Pattern Tachypnea Tachypnea Blood Pressure 143/66 H Blood Pressure Mean 91 Pulse Ox 92 Oxygen Delivery Method Nasal Cannula Nasal Cannula Oxygen Flow Rate (L/min) 3 6 01/31/25 21:22 01/31/25 21:27 Temperature 98.8 F Temperature Source Oral Pulse Rate 96 Respiratory Rate 30 H Respiratory Effort Respiratory Depth Respiratory Pattern Blood Pressure 117/71 Blood Pressure Mean 86 Pulse Ox 95 92 Oxygen Delivery Method Nasal Cannula Nasal Cannula Oxygen Flow Rate (L/min) 6 Weight Weight: 229 lb 15.074 oz Body Mass Index (BMI) 34.9 Physical Exam Narrative Physical Examination: General: Awake, alert, oriented to self, place, recent events, notably dysarthric/ chronically garbled speech status post CVA, remains cooperative, seated upright in the ED bed, Airvo in place now. Skin: Normal color, normal turgor, no icterus, no cyanosis except occasional abrasion. HEENT: AT/NC, EOMI, mild bilateral scleral injection, PERRLA, moderately dry MM,poor dentition, no carotid bruits, no obvious JVD elevation however thickened neck makes evaluation difficult. Lungs: Diminished, greater bases, mildly coarse bilaterally, moist upper airway sounds, Airvo in place, occasional end expiratory wheezing, mildly increased respiratory rate but no distress. Heart: Regular rate and rhythm; no gallop, rub audible. Abdomen: Soft, obese, NTTP, normal distant BS, no obvious marked distention or tympany, no obvious HSM however habitus makes evaluation difficult. Extremities: No cyanosis, no clubbing, chronic bilateral lower extremity pedal to distal delatorre edema, Nas wraps in place. Neurological: Patient awake, alert, oriented as noted, cognitive function baseline intact; pupils equally reactive to light and accommodation, cranial nerves grossly normal, chronic right sided hemiplegia status post CVA, strength severely globally decreased. Psychiatric: Affect appears flat, fatigued, no acute evidence of depressive or anxiety feelings butdoes have underlying psychiatric history. Results Lab / Micro Data 01/31/25 21:12 01/31/25 21:12 Labs: Laboratory Results - last 24 hr 01/31/25 21:12: WBC 10.2, RBC 4.95, Hgb 13.0, Hct 42.7, MCV 86.3, MCH 26.3 L, MCHC 30.4 L, RDW Std Deviation 48.1 H, RDW Coeff of Thomas 15.4 H, Plt Count 239, MPV 10.1, Immature Gran % (Auto) 0.300, Neut % (Auto) 67.9, Lymph % (Auto) 20.8,[place] % (Auto) 8.8, Eos % (Auto) 1.8, Baso % (Auto) 0.4, Absolute Neuts (auto) 6.9, Absolute Lymphs (auto) 2.12, Nucleated RBC % 0, PT 13.9, INR 1.1, APTT 26.2, Sodium 145, Potassium 4.3, Chloride 105, Carbon Dioxide 28.3, Anion Gap 12, BUN 17, Creatinine 1.17, Estim Creat Clear Calc 83.51, Est GFR (MDRD) Non-Af74, BUN/Creatinine Ratio 14.4, Glucose 114 H, Lactic Acid 2.2 H*, Calcium 9.4, Total Bilirubin 0.27, AST 10, ALT < 5, Alkaline Phosphatase 143 H, Total Protein7.1, Albumin 4.3, Globulin 2.8, Albumin/Globulin Ratio 1.5 ABG Data ABG results: ABG 01/31/25 22:18 Specimen Type ART Sample Site L Radial pH 7.32 L Bicarbonate Actual 21.0 L Total CO2 22 Base Excess -5 L O2 Saturation 91 L O2 % 6.0 ABG pCO2 40.8 ABG pO2 65 L Alin Test Positive O2 Delivery Device Cannula Vent Mode Not entered Imaging Radiology Impression Chest X-Ray 01/31/25 21:32 IMPRESSION: Mild pulmonary edema. Right lower lobe opacity not excluded. Stable mild cardiomegaly. Low riding right humerus; dislocation is not entirely excluded.. Reading Location: [facility] Assessment & Plan Assessment/Plan (1) Acute exacerbation of chronic obstructive pulmonary disease: PLAN: Plan The patient is a 55 y/o M w/ PMHx: Hx CVA w/ R sided hemiplegia/Chronic dysarthria, COPD, Tobacco use, PVD, BPH with obstructive pathology, Anxiety and Depression/Bipolar disorder/chart reported history of previous violent behavior/schizophrenia, Diabetes mellitus type II, most recent discharge noted 12/06/2024 following evaluation for acute on chronic hypoxic and hypercapnic respiratory failure secondary to COPD exacerbation and suspected aspiration pneumonia with associated lactic acidosis whopresents to the [facility] ED on 01/31/2025 from his skilled facility with skilled facility report of difficulty breathing all day with increased cough, decreased appetite as wellas lethargy with hypoxia noted to be 86% on room air in addition to wheezing at his facility prompting ED evaluation. #1. Acute Encephalopathy secondary to Acute Hypoxic Respiratory Failure (requiring Airvo initiation, hypoxia on ABG, up to 6L prior to airvo) secondary to Acute on Chronic COPD exacerbation with questionable right lower lobe infiltrate, possible aspiration, possible gram-negative/gram-positive organisms with mild lactic acidosis likely secondary to hypoxemia: Will admit to [facility], maintain on oxygen with wean as tolerated to room air, continue ATC duonebs, PRNalbuterol, IV methylprednisolone, maintain on IV Levaquin and Vancomycin given recent hospitalization prolonged as well as possible aspiration component with de-escalation as able, MRSA screen requested, HOB, IS parameters w/ pending sputum cultures, full respiratory viral panel and urine antigens. Procalcitonin requested. Bld cx x 2 obtained in the ED. PT/OT/ST/case management consulted fordischarge planning. #2. Atypical right humeral position on chest x-ray film: Noted right low ridinghumerus with possible dislocation, will request repeat focal right shoulder films to further investigate as patient doeshave chronic right sided hemiplegiastatus post CVA. #3. Anxiety and depression/bipolar disorder/chart reported history of violent behavior previously/schizophrenia: Will continue patient home psychiatric regimen including Abilify, buspirone with hold for sedation, vortioxetine, trazodone and low-dose Ativan for agitation which she commonly takes however again hold for sedation. #4. Diabetes mellitus type II with chronic neuropathy: Hold oral home regimen, continue home gabapentin regimen with hold for sedation as needed, maintain on ADA diet as long as clinically remains appropriate for oral intake with ST consultation requested given concerns for previous aspiration history, accu checks w/ ISS. #5. History CVA: Patient with significant right sided deficits/hemiplegia as well as chronic dysarthria, continue aspirin, statin, not on hypertensive regimen, holding oral diabetic regimen with adjustments as noted. PT, OT, ST consulted as well as case management for discharge planning. #6. Tobacco Abuse: Encouraged cessation, inpatient consultation per RT, NR if desired. #7. BPH with obstructive pathology: Per current list does not appear to be on regimen, monitor for retention. #8. Hyperlipidemia: Will continue patient on statin therapy. #9. Obesity: Weight loss and lifestyle changes encouraged. #10. DVT prophylaxis: Lovenox. #11. CODE status: Per facility paperwork will maintain FULL code status. Charges/Coding Visit Charges Inpatient E&M: 10233 Init Hosp L3 01/31/25 5063 Cosigner Signature (if applicable): CC: Dr. Rosalva Fowler MD; Dr. Mame Bright MD~ Signed ADDENDUM by Dr. Rosalav Fowler MD on 02/01/25 at 0211 Addendum SNF clarified paperwork for code status and it is in fact noted to be DNR-CCA, will change status. 02/01/25 021 Cosigner Signature (if applicable): cc: Dr. Rosalva Fowler MD; Dr. Mame Bright MD ~* Signed [facility]08-07-2025 Consult note [facility] Medical Records Department [address] [place] [address] Pharmacokinetic/Renal -Consult 02/01/25 0153 MR#: [id number] Acct: [id number] Name: RIGO GARCIA Rep #:[id number] : 1970 55 From: Devyn Cherry od PCP: Dr. Mame Bright MD Status:ADM IN Y Location: [place] [address] Consult Antibiotic Management Pharmacy has been consulted to manage selected antibiotic: Vancomycin Type of Intervention Type of Consult: New start Labs Labs: Sodium 145 mmol/L (133-145) 01/31/25 21:12 Potassium 4.3 mmol/L (3.3-5.1) 01/31/25 21:12 Chloride 105 mmol/L (98-108) 01/31/25 21:12 Carbon Dioxide 28.3 mmol/L (21.0-32.0) 01/31/25 21:12 Anion Gap 12 (5-15) 01/31/25 21:12 BUN 17 mg/dL (4-19) 01/31/25 21:12 Creatinine 1.17 mg/dL (0.70-1.20) 01/31/25 21:12 Est GFR (MDRD) Non-Af 74 (>60) 01/31/25 21:12 BUN/Creatinine Ratio 14.4 RATIO (10-20) 01/31/25 21:12 Glucose 114 mg/dL (70-99) H 01/31/25 21:12 Dosing Weight Weight used for dosin.5 kg Estimated Creatinine Clearance Estimated Creatinine Clearance: 85.51 Goal Trough Goal Trough: 15-20 mcg/mL Pharmacy Plan for Drug Dosing Pharmacy Plan for Drug Dosing: Pharmacy Service will continue to monitor and adjust dosing as required. LOADING DOSE 2000MG GIVEN 02/01 @ 0134. START 1750MG Q12H AND DRAW TROUGH PRIOR TO 4TH DOSE Follow-Up Labs Follow-Up Labs: Trough: Vancomycin Date/Time Labs Ordered Labs to be done on [date and time ordered]: 02/03 @ 1300 02/01/25 0154 lood> Date _ Devyn Ken Cosigner Signature (if applicable): Date CC: ~ Signed [facility]08-07-2025 Evaluation note* Diagnosis Onset Date Resolution Status Admit Date Hemiplegia affecting dominan t side, post-stroke acute January 31 11:03pm Type 2 diabetes mellitus acute January 31, 2025 11:03pm Acidosis, lactic resolved January 312024 11:03pm Acute bronchospasm resolved January 31, 2025 11:03pm Acute exacerbation of chroni c obstructive pulmonary disease resolved 2024 11:03pm Acute hypoxemic respiratory failure resolved January 31, 2025 11:03pm [facility] Work Phone: 1(789) 654-956708-07-2025 Radiology Diagnostic study note [facility] Imaging Services [address] [place] [id number] Shoulder min 2 Views MR#: [id number] Acct: [id number] Name: RIGO GARCIA Rep #: [id number] : 1970 M 55 From: Alivia Woods MD PCP: Dr. Mame Bright MD Status: ADM IN Study:Shoulder min 2 Views Date of Exam: 01/31/25 Exam# [id number] Ordering Dr: Natacha Fowler MD PROCEDURE: SHOULDER MIN 2 VIEWS 01/31/2025 REASON FOR EXAM: ? DISLOCATION TECHNIQUE: SHOULDER MIN 2 VIEWS COMPARISON: No FINDINGS: Widened cc ligamentous space, 1.6 cm, correlate for ligamentous disruption. TheAC joint is intact with mild osteoarthritis. Mild glenohumeral osteoarthritis. No fracture or dislocation. RAD/Shoulder min 2 Views IMPRESSION: Widened cc ligamentous space consistent with ligamentous injury. Correlate as to acuity. Reading Location: [place] [address] CC: Dr. Rosalva Fowler MD; Dr. Mame Bright MD ~ Overhead Crane Inspector: Signed [facility]08-07-2025 Discharge summary Author Keith Garcia [facility] Note Date/Time January 31, 2025 10: 38pm [facility] Medical Records Department [address] [place] [address] Emergency Department Summary 01/31/25 MR#: [id number] Acct: [id number] Name: RIGO GARCIA Rep #:[id number] : 1970 55 From: Keith Garcia MD PCP: Dr. Mame Bright MD Status:REG ER Location: ED HPI History of Present Illness Chief Complaint: Shortness of Breath Detail of Chief Complaint: Shortness of breath, cough, wheezing Informant: patient, EMS and SNF Onset/Context/Timing Onset: Today Context: Sudden Onset Timing: Continuous Quality: Dyspnea with nonproductive cough and wheezing Location: Respiratory Current Severity: Mild Maximum Severity: Moderate Worsened by: Dyspnea on exertion Relieved by: Nothing Associated Symptoms Associated Symptoms: Hypoxia per paramedics 84% on room air. He was not off oxygen long enough Narrative Narrative: Patient is a 55-year-old male. He has history of schizoaffective disorder, CVA 2013 affecting his dominant right side. He is in nursing facility because he isunable to care for himself. He also has history of type 2 diabetes, depression,hypercholesterolemia. Patient presents because of a reported pulse ox of 84% on room air. His sat here was 88% however he was not off oxygen long enough to determine what his yarelis would be. Patient does endorse cough and mild congestion. He also endorses wheezing. He has no history of COPD or asthma. He denies fever or chills. He states he does not feel well. He denies abdominal pain, nausea, vomiting or diarrhea. He denies dysuria, frequency, urgency or hematuria. He denies skin lesions. Prior similar symptoms: No Recent Illness/Hospitalization: No PFSH PFS Medical History Hemiplegia and hemiparesis following cerebral infarction affecting right dominant side Dysarthria following cerebral infarction COPD (chronic obstructive pulmonary disease) Nicotine dependence, cigarettes, uncomplicated Violent behavior Unspecified lack of coordination Acute bronchitis, unspecified Pneumonitis due to inhalation of food and vomit Peripheral vascular disease, unspecified Need for assistance with personal care Gastro-esophageal reflux disease without esophagitis Benign prostatic hyperplasia with lower urinary tract symptoms CVA (cerebral vascular accident) Depression Diabetes Bipolar [...] 12/03/24 History release (Adult Low Dose Aspirin) buspirone 10 mg tablet 10 mg PO TID BIPOLAR 5 12/03/24 History calcium carbonate (Leslye-[place] 600 mg PO Q6H PRN hear tburn 07/31/24 11/26/24 History Heartburn Chew) cholecalciferol (vitamin D3) 1,250 1,250 mcg PO QWEEK SUPPLEMENT 07/31/24 11/27/24 History mcg (50,000 unit) capsule gabapentin 100 mg capsule 200 mg PO TID NEUROPATHIC PA IN 07/31/24 12/03/24 History lorazepam 1 mg tablet (Ativan) 1 mg PO TID agitation 0 07/31/24 12/03/24 History metformin 1,000 mg tablet 1,000 mg PO BID DM 07/31/24 12/03/24 History sennosides 8.6 mg-docusate sodium 1 tab-cap PO DAILY C ONSTIPATION 07/31/24 12/03/24 History 50 mg tablet (Colace 2-In-1) trazodone 50 mg tablet 50 mg PO QHS BIPOLAR 5 12/03/24 History vortioxetine 20 mg tablet 20 mg PO DAILY DEPRESSION 12/03/24 History (Trintellix) atorvastatin 10 mg tablet (Lipitor) 10 mg PO QHS 01/31 Unknown History lorazepam 1 mg tablet (Ativan) 1 mg PO Q8H 01/31/25 Un known History Allergy/AdvReac Type Severity Reaction Status Date / Time ibuprofen Allergy Rash Verified 01/31/25 20:24 Penicillins Allergy RASH Verified 01/31/25 20:24 Social History (Updated 01/31/25 @ 20:[address] Keith Garcia MD) housing: snf Smoking Status: Current every day smoker tobacco type: cigarettes ROS ROS ED Constitutional Constitutional ED: Denies chills, fever(s), subjective or sweats Eyes Eyes: Denies blurry vision or change in vision ENT ENT ED: Denies ear pain, rhinorrhea or sore throat Cardiovascular Cardiovascular: Denies chest pain, orthopnea, palpitations or paroxysmal nocturnal dyspnea Respiratory/Chest Respiratory/Chest: Reports cough and dyspnea; Denies orthopnea, paroxysmal nocturnal dyspnea or sputum Gastrointestinal Gastrointestinal: Denies abdominal pain, diarrhea, nausea or vomiting Genitourinary Genitourinary ED: Denies dysuria, hematuria or urinary frequency Musculoskeletal Musculoskeletal: Denies arthralgias or myalgias Integumentary Denies rash Neurologic Neurologic: Reports weakness; Denies headache(s) or paresthesias Psychiatric Psychiatric: Denies anxiety or depression Endocrine Endocrinology: Denies cold intolerance or heat intolerance Hematologic/Lymphatic Hematologic/Lymphatic: Reports systems reviewed and no addt'l complaints, exceptas documented EXAM Physical Exam Const Vital Signs: 01/31/25 20:19 01/31/25 20:28 01/31/25 20:31 Temperature 99 F 99 F Temperature Source Oral Oral Pulse Rate 84 99 Respiratory Rate 28 H 30 H Respiratory Effort Respiratory Depth Respiratory Pattern Blood Pressure 110/67 118/78 Blood Pressure Mean 81 91 Pulse Ox 88 92 94 Oxygen Delivery Method Room Air Nasal Cannula Nasal Cannula Oxygen Flow Rate (L/min) 2 3 01/31/25 20:32 01/31/25 20:43 01/31/25 21:19 Temperature Temperature Source Pulse Rate 101 H 100 Respiratory Rate 21 H 31 H Respiratory Effort Short of Breath Respiratory Depth Shallow Respiratory Pattern Tachypnea Tachypnea Blood Pressure 143/66 H Blood Pressure Mean 91 Pulse Ox 92 Oxygen Delivery Method Nasal Cannula Nasal Cannula Oxygen Flow Rate (L/min) 3 6 01/31/25 21:22 01/31/25 21:27 Temperature 98.8 F Temperature Source Oral Pulse Rate 96 Respiratory Rate 30 H Respiratory Effort Respiratory Depth Respiratory Pattern Blood Pressure 117/71 Blood Pressure Mean 86 Pulse Ox 95 92 Oxygen Delivery Method Nasal Cannula Nasal Cannula Oxygen Flow Rate (L/min) 6 Positive well nourished and well developed Constitutional Narrative: Patient does not appear well. He is tachypneic. He was hypoxic. Blood pressure is on the low side but within normal limits. He is not tachycardic. He is somnolent. He does have a nasal sounding voice. Since he is on oxygen now there is no evidence of acrocyanosis or central cyanosis. General Appearance ED: well developed; Negative for cyanotic, diaphoretic, NAD or pallor HEENT Reports moist mucous membranes HEENT Narrative: Poor dentition with his teeth eroded down to the gumline. Posterior pharynx is unremarkable. Mucosas moist. Ears normal. Nares patent with some slight cleardrainage. Eyes PERRL and EOMs intact bilaterally Eyes Narrative: The conjunctive is injected bilaterally. There is no obvious drainage. General Eye ED: Negative for pale conjunctiva or scleral icterus Neck no lymphadenopathy, supple and no JVD Resp normal respiratory effort and clear to auscultation bilaterally Cardio regular rate, regular rhythm, S1 normal heart sound, S2 normal heart sound and no murmurs GI normal to inspection, nondistended, normoactive bowel sounds, non-tender, non-distended and no masses; Negative for hepatosplenomegaly Palpation: soft Back/Spine no CVA tenderness Extremity normal to inspection General Extremety ED: Negative for tenderness Neuro No CN's II-XII intact bilaterally and No no sensory deficits noted Neuro Narrative: Residual deficit right side due to remote CVA. Sensorium / Orientation: Negative for alert Motor Exam: Negative for strength 5/5 throughout Psych Mood & Affect: depressed Skin no wounds and No skin turgor normal General Skin Exam: Negative for jaundice or pallor Sepsis Attestation Sepsis Alert: Yes Sepsis Attestation: Sepsis Ruled Out (Patient has no pneumonia and no endorgan dysfunction other than an elevated lactate which could be due to him taking metformin.) Date exam was performed: 01/31/25 Time exam was performed: 20:35 Possible Source of Sepsis: Other (Patient with similar presentation and had COPDexacerbation.) Sepsis Organ Dysfunction Criteria Present: Lactic Acid > 2 mmol/L Supportive Findings: Patient was not hypotensive and has no endorgan dysfunction therefore fluids were not ordered. MDM MDM MDM Narrative Medical decision making narrative: With patient being hypoxic with altered mental status and abnormal oscillatory findings need to evaluate for pneumonia will obtain chest x-ray appropriate blood work to assess for endorgan dysfunction as well as white count differential. With him being somnolent and heavyset will obtain ABG to rule outhypercapnia as the cause of his decreased level conscious versus infectious encephalopathy. Since there is no history of vomiting doubt aspiration. Since he was hypoxic is middle-age will obtain EKG to rule out any ischemic changes. History & Record Review Additional record(s) reviewed:: Prior inpatient record (Patient was admitted November of this year for lactic acidosis, hypotension unspecified and respiratory failure with hypoxia. He also had type 2 diabetes, schizoaffective disorder, hyperlipidemia it was felt that his respiratory failure was due to his COPD. That was not listed on his snf blaire) and Prior labs Lab Data Attestation: I reviewed the patient's lab results. Lab results narrative: White count is normal. H&H is normal. Differential is normal. Comprehensive metabolic panel was slightly elevated alkaline phosphatase 143. This is nonspecific. Glucose is elevated 114 with a normal CO2 anion gap. Renal function is normal. Lactate is slightly elevated 2.2. This may be due to metformin. Labs: Laboratory Results - last 24 hr 01/31/25 21:12 WBC 10.2 RBC 4.95 Hgb 13.0 Hct 42.7 MCV 86.3 MCH 26.3 L MCHC 30.4 L RDW Std Deviation 48.1 H RDW Coeff of Thomas 15.4 H Plt Count 239 MPV 10.1 Immature Gran % (Auto) 0.300 Neut % (Auto) 67.9 Lymph % (Auto) 20.8 [place] % (Auto) 8.8 Eos % (Auto) 1.8 Baso % (Auto) 0.4 Absolute Neuts (auto) 6.9 Absolute Lymphs (auto) 2.12 Nucleated RBC % 0 PT 13.9 INR 1.1 APTT 26.2 Sodium 145 Potassium 4.3 Chloride 105 Carbon Dioxide 28.3 Anion Gap 12 BUN 17 Creatinine 1.17 Estim Creat Clear Calc 83.51 Est GFR (MDRD) Non-Af 74 BUN/Creatinine Ratio 14.4 Glucose 114 H Lactic Acid 2.2 H* Calcium 9.4 Total Bilirubin 0.27 AST 10 ALT < 5 Alkaline Phosphatase 143 H Total Protein 7.1 Albumin 4.3 Globulin 2.8 Albumin/Globulin Ratio 1.5 ABG Data Attestation: I personally reviewed and interpreted this ABG as follows: Interpretation: ABG reveals a mild metabolic acidosis. pH is 7.32, bicarb 21, total CO2 22, base excess -5, O2 saturation 91% on 6 L by nasal cannula. pCO2 is 40.8 and PO2is 65. Patient was placed on high flow oxygen per respiratory's recommendation. Since he is still wheezing 125 mg Solu-Medrol was ordered. After discussion with Dr. Fowler we will give 1 dose of Levaquin Floxin IV instead of p.o. She will see patient in the ER to determine where he should go. ABG results: ABG 01/31/25 22:18 Specimen Type ART Sample Site L Radial pH 7.32 L Bicarbonate Actual 21.0 L Total CO2 22 Base Excess -5 L O2 Saturation 91 L O2 % 6.0 ABG pCO2 40.8 ABG pO2 65 L Alin Test Positive O2 Delivery Device Cannula Vent Mode Not entered Radiography Chest X-Ray - ED: 2 View and Read by ED Physician (Independent reviewed interpreted by me at 2138. Limited study due to poor respiratory volume. Thereis no obvious infiltrate. There is no effusion. Cardiac silhouette size is normal. Hilum appears unremarkable. Osseous structures reveal no acute process.) Diagnostic Testing: Clinical Impression(s) from Imaging Studies Chest X-Ray 01/31/25 21:32 IMPRESSION: Mild pulmonary edema. Right lower lobe opacity not excluded. Stable mild cardiomegaly. Low riding right humerus; dislocation is not entirely excluded.. Reading Location: [facility] EKG Initial EKG: Attestation: I personally reviewed and interpreted this EKG as follows: Interpretation: Sinus Rhythm (Rate is 80. The EKG is normal. HI intervalis on 56 ms. QS duration 78 ms. QT duration 260 ms. [place] is normal.) Management Discussion w/another healthcare provider: Hospitalist (Dr. Fowler was informed the patient's history, physical, objective findings. The last time he presentedlike this he was admitted to the ICU. She would like to see him to determine where best to place him.) Critical Care Time Critical Care Time: Yes Critical care time (excluding procedures): 30-74 minutes (32), Including time spent: (History, physical, documentation, review of prior records, review of records from SNF), Discussing w/Patient &/or Family/Generator Technician, Discussing w/Consultants (Discussion with hospitalist for admission), Arranging Admission or Transfer and - (Discussion with respiratory therapist.) Discharge Plan Triage Chief Complaint: Shortness of Breath ED Provider: Keith Garcia Dx/Rx/DC Orders Clinical Impression: Acute hypoxemic respiratory failure, Type 2 diabetes mellitus, Acute exacerbation of chronic obstructive pulmonary disease, Acute bronchospasm, Acidosis, lactic, Hemiplegia affecting dominant side, post-stroke Prescriptions: No Action atorvastatin [Lipitor] 10 mg tablet 10 mg PO QHS lorazepam [Ativan] 1 mg tablet 1 mg PO Q8H Trintellix 20 mg tablet 20 mg PO DAILY sennosides-docusate sodium [Colace 2-In-1] 8.6-50 mg tablet 1 tab-cap PO DAILY aripiprazole [Abilify] 15 mg tablet 15 mg PO DAILY aspirin [Adult Low Dose Aspirin] 81 mg tablet,delayed release (DR/EC) 81 mg PO DAILY lorazepam [Ativan] 1 mg tablet 1 mg PO TID buspirone 10 mg tablet 10 mg PO TID gabapentin 100 mg capsule 200 mg PO TID trazodone 50 mg tablet 50 mg PO QHS cholecalciferol (vitamin D3) 1,250 mcg (50,000 unit) capsule 1,250 mcg PO QWEEK Rx Instructions: QMONDAY metformin 1,000 mg tablet 1,000 mg PO BID Emir Heartburn Chew 300 mg (750 mg) tablet,chewable 600 mg PO Q6H PRN (Reason: heartburn) acetaminophen [Aminofen] 325 mg tablet 650 mg PO Q4H PRN (Reason: fever or pain) Primary Care Provider: Mame Bright Referrals: Mame Bright MD [Primary Care Provider] - Print Language: Tuvaluan Disposition Disposition: Acute Care Hospital [facility] What to do if you have Problems For any increased pain, shortness of breath, bleeding, nausea or vomiting, chestpain, or any unexpected problems, contact your Primary Care Provider. Call [facility] ([phone]) or report to the closest Emergency Room. Call 911 if necessary. 01/31/252237 <Electronically signed by Keith Garcia MD> Cosigner Signature (if applicable): CC: Dr. Mame Bright MD ~ Signed [facility] Work Phone: [phone] History and physical note [facility] Medical Records Department [address] [place] [address] H&P Exam - Hospitalist 01/31/252230 MR#: [id number] Acct: [id number] Name: RIGO GARCIA Rep #:[id number] : 1970 55 From: Rosalva Fowler MD PCP: Dr. Mame Bright MD Status:REG ER Location: ED HPI - General General Date of Admission: 01/31/25 Date of Service: 01/31/25 Chief Complaint: Cough, dyspnea, wheezing. HPI Narrative The patient is a 55 y/o M w/ PMHx: Hx CVA w/ R sided hemiplegia/Chronic dysarthria, COPD, Tobacco use, PVD, BPH with obstructive pathology, Anxiety and Depression/Bipolar disorder/chart reported history of previous violent behavior/schizophrenia, Diabetes mellitus type II, most recent discharge noted 12/06/2024 following evaluation for acute on chronic hypoxic and hypercapnic respiratory failure secondary to COPD exacerbation and suspected aspiration pneumonia with associated lactic acidosis whopresents to the [facility] ED on 01/31/2025 from his skilled facility with skilled facility report of difficulty breathing all day with increased cough, decreased appetite as wellas lethargy with hypoxia noted to be 86% on room air in addition to wheezing at his facility prompting ED evaluation. Patient also reports mild congestion. Heal notes that he occasionally has been coughing with oral food intake. Workupin the ED included T99, heart rate 84, BP 110/67, respiratory rate 28, [id number]% on room air with improvement to 94% on 3 L nasal cannula-> most recent repeat vitals upon evaluation T98.8, heart rate 96, BP 117/71, respiratory rate 30, 92% on 6 L nasal cannula--> eventually transition to Airvo, ABG with pH 7.32, bicarb 21, O2 saturation 91%, pCO2 40.8, [id number] nasal cannula, CBC with WC 10.2, hemoglobin 13, MCV 86.3, platelet 239 without marked shift, lactic acid2.2, CMP with BUN/creatinine 17/1.17, GFR 74, glucose 114, alk phos 143 otherwise not markedappearing, chest x-ray with mild pulm edema with inability to exclude right lower lobe opacity and stable mild cardiomegaly with a low riding right humerus with dislocation unable to be entirely excluded, blood culture x 2 pending per ED. In the ED patient administered Solu-Medrol 125 mg IVx 1, Levaquin 750 mg IV x 1 and maintenance IV fluids. [facility] Medical History Hemiplegia and hemiparesis following cerebral infarction affecting right dominant side Dysarthria following cerebral infarction COPD (chronic obstructive pulmonary disease) Nicotine dependence, cigarettes, uncomplicated Violent behavior Unspecified lack of coordination Acute bronchitis, unspecified Pneumonitis due to inhalation of food and vomit Peripheral vascular disease, unspecified Need for assistance with personal care Gastro-esophageal reflux disease without esophagitis Benign prostatic hyperplasia with lower urinary tract symptoms CVA (cerebral vascular accident) Depression Diabetes Bipolar [...] 12/03/24 History release (Adult Low Dose Aspirin) buspirone 10 mg tablet 10 mg PO TID BIPOLAR 2 5 12/03/24 History calcium carbonate (Leslye-[place] 600 mg PO Q6H PRN hear tburn 07/31/24 11/26/24 History Heartburn Chew) cholecalciferol (vitamin D3) 1,250 1,250 mcg PO QWEEK SUPPLEMENT 07/31/24 11/27/24 History mcg (50,000 unit) capsule gabapentin 100 mg capsule 200 mg PO TID NEUROPATHIC PA IN 07/31/24 12/03/24 History lorazepam 1 mg tablet (Ativan) 1 mg PO TID agitation 0 07/31/24 12/03/24 History metformin 1,000 mg tablet 1,000 mg PO BID DM 07/31/24 12/03/24 History sennosides 8.6 mg-docusate sodium 1 tab-cap PO DAILY C ONSTIPATION 07/31/24 12/03/24 History 50 mg tablet (Colace 2-In-1) trazodone 50 mg tablet 50 mg PO QHS BIPOLAR 5 12/03/24 History vortioxetine 20 mg tablet 20 mg PO DAILY DEPRESSION 12/03/24 History (Trintellix) atorvastatin 10 mg tablet (Lipitor) 10 mg PO QHS 01/31 Unknown History lorazepam 1 mg tablet (Ativan) 1 mg PO Q8H 01/31/25 Un known History Allergy/AdvReac Type Severity Reaction Status Date / Time ibuprofen Allergy Rash Verified 01/31/25 20:24 Penicillins Allergy RASH Verified 01/31/25 20:24 adopted (Patient does not know his maternal/paternal biological family history.) Surgical History (Updated 01/31/25 @ 23:[address] Rosalva Fowler MD) No history of previous surgery Social History (Updated 01/31/25 @ 23:[address] Rosalva Fowler MD) housing: snf Smoking Status: Current every day smoker tobacco type: cigarettes Smoking packsper day: 0.25 Smoking cigarettes per day: 5.0 alcohol intake: never substance use type: does not use ROS ROS Narrative Admission Review of Systems: CONSTITUTIONAL: No weight loss, fever, chills, + weakness or fatigue. HEENT: + Mild congestion. Eyes: No visual loss, blurred vision, double vision or yellow sclerae. Ears, Nose, Throat: No hearing loss, sneezing, runny nose or sore throat. SKIN: No rash or itching, lesions, wounds. CARDIOVASCULAR: No chest pain, chest pressure or chest discomfort, palpitations,edema, orthopnea, syncopal events. RESPIRATORY: + Dyspnea, cough, wheezing. No hemoptysis. GASTROINTESTINAL: + Decreased appetite. No nausea, vomiting or diarrhea, abdominal pain, melena, BRBPR. GENITOURINARY: No dysuria, frequency, urgency or retention. NEUROLOGICAL: + History of CVA with chronic right-sided hemiplegia, dysarthria. No headache, dizziness, syncope, change in bowel or bladder control, seizure. MUSCULOSKELETAL: + muscle, back pain, joint pain or stiffness. HEMATOLOGIC: No anemia, bleeding or bruising. LYMPHATICS: No enlarged nodes. No history of splenectomy. PSYCHIATRIC: N+ history of anxiety and depression/bipolar disorder/violent behavior/schizophrenia. ENDOCRINOLOGIC: No reports of sweating, cold or heat intolerance. No polyuria orpolydipsia. ALLERGIES: No history of asthma, hives, eczema or rhinitis. Vital Signs Vital Signs Vital Signs: 01/31/25 20:19 01/31/25 20:28 01/31/25 20:31 Temperature 99 F 99 F Temperature Source Oral Oral Pulse Rate 84 99 Respiratory Rate 28 H 30 H Respiratory Effort Respiratory Depth Respiratory Pattern Blood Pressure 110/67 118/78 Blood Pressure Mean 81 91 Pulse Ox 88 92 94 Oxygen Delivery Method Room Air Nasal Cannula Nasal Cannula Oxygen Flow Rate (L/min) 2 3 01/31/25 20:32 01/31/25 20:43 01/31/25 21:19 Temperature Temperature Source Pulse Rate 101 H 100 Respiratory Rate 21 H 31 H Respiratory Effort Short of Breath Respiratory Depth Shallow Respiratory Pattern Tachypnea Tachypnea Blood Pressure 143/66 H Blood Pressure Mean 91 Pulse Ox 92 Oxygen Delivery Method Nasal Cannula Nasal Cannula Oxygen Flow Rate (L/min) 3 6 01/31/25 21:22 01/31/25 21:27 Temperature 98.8 F Temperature Source Oral Pulse Rate 96 Respiratory Rate 30 H Respiratory Effort Respiratory Depth Respiratory Pattern Blood Pressure 117/71 Blood Pressure Mean 86 Pulse Ox 95 92 Oxygen Delivery Method Nasal Cannula Nasal Cannula Oxygen Flow Rate (L/min) 6 Weight Weight: 229 lb 15.074 oz Body Mass Index (BMI) 34.9 Physical Exam Narrative Physical Examination: General: Awake, alert, oriented to self, place, recent events, notably dysarthric/ chronically garbled speech status post CVA, remains cooperative, seated upright in the ED bed, Airvo in place now. Skin: Normal color, normal turgor, no icterus, no cyanosis except occasional abrasion. HEENT: AT/NC, EOMI, mild bilateral scleral injection, PERRLA, moderately dry MM,poor dentition, no carotid bruits, no obvious JVD elevation however thickened neck makes evaluation difficult. Lungs: Diminished, greater bases, mildly coarse bilaterally, moist upper airway sounds, Airvo in place, occasional end expiratory wheezing, mildly increased respiratory rate but no distress. Heart: Regular rate and rhythm; no gallop, rub audible. Abdomen: Soft, obese, NTTP, normal distant BS, no obvious marked distention or tympany, no obvious HSM however habitus makes evaluation difficult. Extremities: No cyanosis, no clubbing, chronic bilateral lower extremity pedal to distal delatorre edema, Nas wraps in place. Neurological: Patient awake, alert, oriented as noted, cognitive function baseline intact; pupils equally reactive to light and accommodation, cranial nerves grossly normal, chronic right sided hemiplegia status post CVA, strength severely globally decreased. Psychiatric: Affect appears flat, fatigued, no acute evidence of depressive or anxiety feelings butdoes have underlying psychiatric history. Results Lab / Micro Data 01/31/25 21:12 01/31/25 21:12 Labs: Laboratory Results - last 24 hr 01/31/25 21:12: WBC 10.2, RBC 4.95, Hgb 13.0, Hct 42.7, MCV 86.3, MCH 26.3 L, MCHC 30.4 L, RDW Std Deviation 48.1 H, RDW Coeff of Thomas 15.4 H, Plt Count 239, MPV 10.1, Immature Gran % (Auto) 0.300, Neut % (Auto) 67.9, Lymph % (Auto) 20.8,[place] % (Auto) 8.8, Eos % (Auto) 1.8, Baso % (Auto) 0.4, Absolute Neuts (auto) 6.9, Absolute Lymphs (auto) 2.12, Nucleated RBC % 0, PT 13.9, INR 1.1, APTT 26.2, Sodium 145, Potassium 4.3, Chloride 105, Carbon Dioxide 28.3, Anion Gap 12, BUN 17, Creatinine 1.17, Estim Creat Clear Calc 83.51, Est GFR (MDRD) Non-Af74, BUN/Creatinine Ratio 14.4, Glucose 114 H, Lactic Acid 2.2 H*, Calcium 9.4, Total Bilirubin 0.27, AST 10, ALT < 5, Alkaline Phosphatase 143 H, Total Protein7.1, Albumin 4.3, Globulin 2.8, Albumin/Globulin Ratio 1.5 ABG Data ABG results: ABG 01/31/25 22:18 Specimen Type ART Sample Site L Radial pH 7.32 L Bicarbonate Actual 21.0 L Total CO2 22 Base Excess -5 L O2 Saturation 91 L O2 % 6.0 ABG pCO2 40.8 ABG pO2 65 L Alin Test Positive O2 Delivery Device Cannula Vent Mode Not entered Imaging Radiology Impression Chest X-Ray 01/31/25 21:32 IMPRESSION: Mild pulmonary edema. Right lower lobe opacity not excluded. Stable mild cardiomegaly. Low riding right humerus; dislocation is not entirely excluded.. Reading Location: [facility] Assessment & Plan Assessment/Plan (1) Acute exacerbation of chronic obstructive pulmonary disease: PLAN: Plan The patient is a 55 y/o M w/ PMHx: Hx CVA w/ R sided hemiplegia/Chronic dysarthria, COPD, Tobacco use, PVD, BPH with obstructive pathology, Anxiety and Depression/Bipolar disorder/chart reported history of previous violent behavior/schizophrenia, Diabetes mellitus type II, most recent discharge noted 12/06/2024 following evaluation for acute on chronic hypoxic and hypercapnic respiratory failure secondary to COPD exacerbation and suspected aspiration pneumonia with associated lactic acidosis whopresents to the [facility] ED on 01/31/2025 from his skilled facility with skilled facility report of difficulty breathing all day with increased cough, decreased appetite as wellas lethargy with hypoxia noted to be 86% on room air in addition to wheezing at his facility prompting ED evaluation. #1. Acute Encephalopathy secondary to Acute Hypoxic Respiratory Failure (requiring Airvo initiation, hypoxia on ABG, up to 6L prior to airvo) secondary to Acute on Chronic COPD exacerbation with questionable right lower lobe infiltrate, possible aspiration, possible gram-negative/gram-positive organisms with mild lactic acidosis likely secondary to hypoxemia: Will admit to [facility], maintain on oxygen with wean as tolerated to room air, continue ATC duonebs, PRNalbuterol, IV methylprednisolone, maintain on IV Levaquin and Vancomycin given recent hospitalization prolonged as well as possible aspiration component with de-escalation as able, MRSA screen requested, HOB, IS parameters w/ pending sputum cultures, full respiratory viral panel and urine antigens. Procalcitonin requested. Bld cx x 2 obtained in the ED. PT/OT/ST/case management consulted fordischarge planning. #2. Atypical right humeral position on chest x-ray film: Noted right low ridinghumerus with possible dislocation, will request repeat focal right shoulder films to further investigate as patient doeshave chronic right sided hemiplegiastatus post CVA. #3. Anxiety and depression/bipolar disorder/chart reported history of violent behavior previously/schizophrenia: Will continue patient home psychiatric regimen including Abilify, buspirone with hold for sedation, vortioxetine, trazodone and low-dose Ativan for agitation which she commonly takes however again hold for sedation. #4. Diabetes mellitus type II with chronic neuropathy: Hold oral home regimen, continue home gabapentin regimen with hold for sedation as needed, maintain on ADA diet as long as clinically remains appropriate for oral intake with ST consultation requested given concerns for previous aspiration history, accu checks w/ ISS. #5. History CVA: Patient with significant right sided deficits/hemiplegia as well as chronic dysarthria, continue aspirin, statin, not on hypertensive regimen, holding oral diabetic regimen with adjustments as noted. PT, OT, ST consulted as well as case management for discharge planning. #6. Tobacco Abuse: Encouraged cessation, inpatient consultation per RT, NR if desired. #7. BPH with obstructive pathology: Per current list does not appear to be on regimen, monitor for retention. #8. Hyperlipidemia: Will continue patient on statin therapy. #9. Obesity: Weight loss and lifestyle changes encouraged. #10. DVT prophylaxis: Lovenox. #11. CODE status: Per facility paperwork will maintain FULL code status. Charges/Coding Visit Charges Inpatient E&M: 79422 Init Hosp L3 01/31/25 2014 Cosigner Signature (if applicable): CC: Dr. Rosalva Fowler MD; Dr. Mame Bright MD~ Signed [facility]08-06-2025 Discharge summary [facility] Medical Records Department [address] [place] [address] Emergency Department Summary 01/31/25 MR#: [id number] Acct: [id number] Name: RIGO GARCIA Rep #:[id number] : 1970 55 From: Keith Garcia MD PCP: Dr. Mame Bright MD Status:REG ER Location: ED HPI History of Present Illness Chief Complaint: Shortness of Breath Detail of Chief Complaint: Shortness of breath, cough, wheezing Informant: patient, EMS and SNF Onset/Context/Timing Onset: Today Context: Sudden Onset Timing: Continuous Quality: Dyspnea with nonproductive cough and wheezing Location: Respiratory Current Severity: Mild Maximum Severity: Moderate Worsened by: Dyspnea on exertion Relieved by: Nothing Associated Symptoms Associated Symptoms: Hypoxia per paramedics 84% on room air. He was not off oxygen long enough Narrative Narrative: Patient is a 55-year-old male. He has history of schizoaffective disorder, CVA 2012 affecting his dominant right side. He is in nursing facility because he isunable to care for himself. He also has history of type 2 diabetes, depression,hypercholesterolemia. Patient presents because of a reported pulse ox of 84% on room air. His sat here was 88% however hewas not off oxygen long enough to determine what his yarelis would be. Patient does endorse cough andmild congestion. He also endorses wheezing. He has no history of COPD or asthma. He denies fever orchills. He states he does not feel well. He denies abdominal pain, nausea, vomiting or diarrhea. He denies dysuria, frequency, urgency or hematuria. He denies skin lesions. Prior similar symptoms: No Recent Illness/Hospitalization: [facility] Medical History Hemiplegia and hemiparesis following cerebral infarction affecting right dominant side Dysarthria following cerebral infarction COPD (chronic obstructive pulmonary disease) Nicotine dependence, cigarettes, uncomplicated Violent behavior Unspecified lack of coordination Acute bronchitis, unspecified Pneumonitis due to inhalation of food and vomit Peripheral vascular disease, unspecified Need for assistance with personal care Gastro-esophageal reflux disease without esophagitis Benign prostatic hyperplasia with lower urinary tract symptoms CVA (cerebral vascular accident) Depression Diabetes Bipolar [...] 12/03/24 History release (Adult Low Dose Aspirin) buspirone 10 mg tablet 10 mg PO TID BIPOLAR 5 12/03/24 History calcium carbonate ([place]lye-[place] 600 mg PO Q6H PRN hear tburn 07/31/24 11/26/24 History Heartburn Chew) cholecalciferol (vitamin D3) 1,250 1,250 mcg PO QWEEK SUPPLEMENT 07/31/24 11/27/24 History mcg (50,000 unit) capsule gabapentin 100 mg capsule 200 mg PO TID NEUROPATHIC PA IN 07/31/24 12/03/24 History lorazepam 1 mg tablet (Ativan) 1 mg PO TID agitation 0 07/31/24 12/03/24 History metformin 1,000 mg tablet 1,000 mg PO BID DM 07/31/24 12/03/24 History sennosides 8.6 mg-docusate sodium 1 tab-cap PO DAILY C ONSTIPATION 07/31/24 12/03/24 History 50 mg tablet (Colace 2-In-1) trazodone 50 mg tablet 50 mg PO QHS BIPOLAR 5 12/03/24 History vortioxetine 20 mg tablet 20 mg PO DAILY DEPRESSION 12/03/24 History (Trintellix) atorvastatin 10 mg tablet (Lipitor) 10 mg PO QHS 01/31 Unknown History lorazepam 1 mg tablet (Ativan) 1 mg PO Q8H 01/31/25 Un known History Allergy/AdvReac Type Severity Reaction Status Date / Time ibuprofen Allergy Rash Verified 01/31/25 20:24 Penicillins Allergy RASH Verified 01/31/25 20:24 Social History (Updated 01/31/25 @ 20:[address] Keith Garcia MD) housing: snf Smoking Status: Current every day smoker tobacco type: cigarettes ROS ROS ED Constitutional Constitutional ED: Denies chills, fever(s), subjective or sweats Eyes Eyes: Denies blurry vision or change in vision ENT ENT ED: Denies ear pain, rhinorrhea or sore throat Cardiovascular Cardiovascular: Denies chest pain, orthopnea, palpitations or paroxysmal nocturnal dyspnea Respiratory/Chest Respiratory/Chest: Reports cough and dyspnea; Denies orthopnea, paroxysmal nocturnal dyspnea or sputum Gastrointestinal Gastrointestinal: Denies abdominal pain, diarrhea, nausea or vomiting Genitourinary Genitourinary ED: Denies dysuria, hematuria or urinary frequency Musculoskeletal Musculoskeletal: Denies arthralgias or myalgias Integumentary Denies rash Neurologic Neurologic: Reports weakness; Denies headache(s) or paresthesias Psychiatric Psychiatric: Denies anxiety or depression Endocrine Endocrinology: Denies cold intolerance or heat intolerance Hematologic/Lymphatic Hematologic/Lymphatic: Reports systems reviewed and no addt'l complaints, exceptas documented EXAM Physical Exam Const Vital Signs: 01/31/25 20:19 01/31/25 20:28 01/31/25 20:31 Temperature 99 F 99 F Temperature Source Oral Oral Pulse Rate 84 99 Respiratory Rate 28 H 30 H Respiratory Effort Respiratory Depth Respiratory Pattern Blood Pressure 110/67 118/78 Blood Pressure Mean 81 91 Pulse Ox 88 92 94 Oxygen Delivery Method Room Air Nasal Cannula Nasal Cannula Oxygen Flow Rate (L/min) 2 3 01/31/25 20:32 01/31/25 20:43 01/31/25 21:19 Temperature Temperature Source Pulse Rate 101 H 100 Respiratory Rate 21 H 31 H Respiratory Effort Short of Breath Respiratory Depth Shallow Respiratory Pattern Tachypnea Tachypnea Blood Pressure 143/66 H Blood Pressure Mean 91 Pulse Ox 92 Oxygen Delivery Method Nasal Cannula Nasal Cannula Oxygen Flow Rate (L/min) 3 6 01/31/25 21:22 01/31/25 21:27 Temperature 98.8 F Temperature Source Oral Pulse Rate 96 Respiratory Rate 30 H Respiratory Effort Respiratory Depth Respiratory Pattern Blood Pressure 117/71 Blood Pressure Mean 86 Pulse Ox 95 92 Oxygen Delivery Method Nasal Cannula Nasal Cannula Oxygen Flow Rate (L/min) 6 Positive well nourished and well developed Constitutional Narrative: Patient does not appear well. He is tachypneic. He was hypoxic. Blood pressure is on the low side but within normal limits. He is not tachycardic. He is somnolent. He does have a nasal sounding voice. Since he is on oxygen now there is no evidence of acrocyanosis or central cyanosis. General Appearance ED: well developed; Negative for cyanotic, diaphoretic, NAD or pallor HEENT Reports moist mucous membranes HEENT Narrative: Poor dentition with his teeth eroded down to the gumline. Posterior pharynx is unremarkable. Mucosas moist. Ears normal. Nares patent with some slight cleardrainage. Eyes PERRL and EOMs intact bilaterally Eyes Narrative: The conjunctive is injected bilaterally. There is no obvious drainage. General Eye ED: Negative for pale conjunctiva or scleral icterus Neck no lymphadenopathy, supple and no JVD Resp normal respiratory effort and clear to auscultation bilaterally Cardio regular rate, regular rhythm, S1 normal heart sound, S2 normal heart sound and no murmurs GI normal to inspection, nondistended, normoactive bowel sounds, non-tender, non- distended and no masses; Negative for hepatosplenomegaly Palpation: soft Back/Spine no CVA tenderness Extremity normal to inspection General Extremety ED: Negative for tenderness Neuro No CN's II-XII intact bilaterally and No no sensory deficits noted Neuro Narrative: Residual deficit right side due to remote CVA. Sensorium / Orientation: Negative for alert Motor Exam: Negative for strength 5/5 throughout Psych Mood & Affect: depressed Skin no wounds and No skin turgor normal General Skin Exam: Negative for jaundice or pallor Sepsis Attestation Sepsis Alert: Yes Sepsis Attestation: Sepsis Ruled Out (Patient has no pneumonia and no endorgan dysfunction other than an elevated lactate which could be due to him taking metformin.) Date exam was performed: 01/31/25 Time exam was performed: 20:35 Possible Source of Sepsis: Other (Patient with similar presentation and had COPDexacerbation.) Sepsis Organ Dysfunction Criteria Present: Lactic Acid > 2 mmol/L Supportive Findings: Patient was not hypotensive and has no endorgan dysfunction therefore fluids were not ordered. MDM MDM MDM Narrative Medical decision making narrative: With patient being hypoxic with altered mental status and abnormal oscillatory findings need to evaluate for pneumonia will obtain chest x-ray appropriate blood work to assess for endorgan dysfunction as well as white count differential. With him being somnolent and heavyset will obtain ABG to rule outhypercapnia as the cause of his decreased level conscious versus infectious encephalopathy. Since there is no history of vomiting doubt aspiration. Since he was hypoxic is middle-age will obtain EKG to rule out any ischemic changes. History & Record Review Additional record(s) reviewed:: Prior inpatient record (Patient was admitted November of this year for lactic acidosis, hypotension unspecified and respiratory failure with hypoxia. He also had type 2 diabetes, schizoaffective disorder, hyperlipidemia it was felt that his respiratory failure was due tohis COPD. That was not listed on his snf bl[facility]) and Prior labs Lab Data Attestation: I reviewed the patient's lab results. Lab results narrative: White count is normal. H&H is normal. Differential is normal. Comprehensive metabolic panel wasslightly elevated alkaline phosphatase 143. This is nonspecific. Glucose is elevated 114 with a normal CO2 anion gap. Renal function is normal. Lactate is slightly elevated 2.2. This may be due to metformin. Labs: Laboratory Results - last 24 hr 01/31/25 21:12 WBC 10.2 RBC 4.95 Hgb 13.0 Hct 42.7 MCV 86.3 MCH 26.3 L MCHC 30.4 L RDW Std Deviation 48.1 H RDW Coeff of Thomas 15.4 H Plt Count 239 MPV 10.1 Immature Gran % (Auto) 0.300 Neut % (Auto) 67.9 Lymph % (Auto) 20.8 [place] % (Auto) 8.8 Eos % (Auto) 1.8 Baso % (Auto) 0.4 Absolute Neuts (auto) 6.9 Absolute Lymphs (auto) 2.12 Nucleated RBC % 0 PT 13.9 INR 1.1 APTT 26.2 Sodium 145 Potassium 4.3 Chloride 105 Carbon Dioxide 28.3 Anion Gap 12 BUN 17 Creatinine 1.17 Estim Creat Clear Calc 83.51 Est GFR (MDRD) Non-Af 74 BUN/Creatinine Ratio 14.4 Glucose 114 H Lactic Acid 2.2 H* Calcium 9.4 Total Bilirubin 0.27 AST 10 ALT < 5 Alkaline Phosphatase 143 H Total Protein 7.1 Albumin 4.3 Globulin 2.8 Albumin/Globulin Ratio 1.5 ABG Data Attestation: I personally reviewed and interpreted this ABG as follows: Interpretation: ABG reveals a mild metabolic acidosis. pH is 7.32, bicarb 21, total CO2 22, base excess -5, O2 saturation 91% on 6 L by nasal cannula. pCO2 is 40.8 and PO2is 65. Patient was placed on high flow oxygen per respiratory's recommendation. Since he is still wheezing 125 mg Solu-Medrol was ordered. Afterdiscussion with Dr. Fowler we will give 1 dose of Levaquin Floxin IV instead of p.o. She will see pat gordy in the ER to determine where he should go. ABG results: ABG 08/06/25 22:18 Specimen Type ART Sample Site L Radial pH 7.32 L Bicarbonate Actual 21.0 L Total CO2 22 Base Excess -5 L O2 Saturation 91 L O2 % 6.0 ABG pCO2 40.8 ABG pO2 65 L Alin Test Positive O2 Delivery Device Cannula Vent Mode Not entered Radiography Chest X-Ray - ED: 2 View and Read by ED Physician (Independent reviewed interpreted by me at 2138. Limited study due to poor respiratory volume. Thereis no obvious infiltrate. There is no effusion. Cardiac silhouette size is normal. [place] appears unremarkable. Osseous structures reveal no acute process.) Diagnostic Testing: Clinical Impression(s) from Imaging Studies Chest X-Ray 01/31/25 21:32 IMPRESSION: Mild pulmonary edema. Right lower lobe opacity not excluded. Stable mild cardiomegaly. Low riding right humerus; dislocation is not entirely excluded.. Reading Location: [facility] EK Initial EKG: Attestation: I personally reviewed and interpreted this EKG as follows: Interpretation: Sinus Rhythm (Rate is 80. The EKG is normal. HI intervalis on 56 ms. QS duration 78ms. QT duration 260 ms. [place] is normal.) Management Discussion w/another healthcare provider: Hospitalist (Dr. Fowler was informed the patient's history, physical, objective findings. The last time he presentedlike this he was admitted to the ICU. She would like to see him to determine where best to place him.) Critical Care Time Critical Care Time: Yes Critical care time (excluding procedures): 30-74 minutes (32), Including time spent: (History, physical, documentation, review of prior records, review of records from SNF), Discussing w/Patient &/or Family/Generator Technician, Discussing w/Consultants (Discussion with hospitalist for admission), Arranging Admission or Transfer and - (Discussion with respiratory therapist.) Discharge Plan Triage Chief Complaint: Shortness of Breath ED Provider: Keith Garcia Dx/Rx/DC Orders Clinical Impression: Acute hypoxemic respiratory failure, Type 2 diabetes mellitus, Acute exacerbation of chronic obstructive pulmonary disease, Acute bronchospasm, Acidosis, lactic, Hemiplegia affecting dominant side, post-stroke Prescriptions: No Action atorvastatin [Lipitor] 10 mg tablet 10 mg PO QHS lorazepam [Ativan] 1 mg tablet 1 mg PO Q8H Trintellix 20 mg tablet 20 mg PO DAILY sennosides-docusate sodium [Colace 2-In-1] 8.6-50 mg tablet 1 tab-cap PO DAILY aripiprazole [Abilify] 15 mg tablet 15 mg PO DAILY aspirin [Adult Low Dose Aspirin] 81 mg tablet,delayed release (DR/EC) 81 mg PO DAILY lorazepam [Ativan] 1 mg tablet 1 mg PO TID buspirone 10 mg tablet 10 mg PO TID gabapentin 100 mg capsule 200 mg PO TID trazodone 50 mg tablet 50 mg PO QHS cholecalciferol (vitamin D3) 1,250 mcg (50,000 unit) capsule 1,250 mcg PO QWEEK Rx Instructions: QMONDAY metformin 1,000 mg tablet 1,000 mg PO BID Leslye-[place] Heartburn Chew 300 mg (750 mg) tablet,chewable 600 mg PO Q6H PRN (Reason: heartburn) acetaminophen [Aminofen] 325 mg tablet 650 mg PO Q4H PRN (Reason: fever or pain) Primary Care Provider: Mame Bright Referrals: Mame Bright MD [Primary Care Provider] - Print Language: Tuvaluan Disposition Disposition: Acute Care Hospital [facility] What to do if you have Problems For any increased pain, shortness of breath, bleeding, nausea or vomiting, chestpain, or any unexpected problems, contact your Primary Care Provider. Call [facility] ([phone]) or report tothe closest Emergency Room. Call 911 if necessary. 01/31/252237 Cosigner Signature (if applicable): CC: Dr. Mame Bright MD ~ Signed [facility]08-06-2025 Radiology Diagnostic study note [facility] Imaging Services [address], [place] [id number] Chest PA and Lateral MR#: [id number] Acct: [id number] Name: RIGO GARCIA Rep #: [id number] : 1970 M 55 From: Terra Sierra MD PCP: Dr. Mame Bright MD Status: REG ER Study:Chest PA and Lateral Date of Exam: 01/31/25 Exam# [id number] Ordering Dr: Arielle Garcia MD PROCEDURE: CHEST PA AND LATERAL 01/31/2025 REASON FOR EXAM: COUGH, RALES AND WHEEZING BILATERALLY AND HYPOXIA TECHNIQUE: CHEST PA AND LATERAL COMPARISON: 12/05/2024 FINDINGS: Mild pulmonary vascular congestion and interstitial edema. Right lower lobe opacity not excluded. No pleural effusion or pneumothorax. Stable mild cardiomegaly. No acute fractures. Low riding right humerus. RAD/Chest PA and Lateral IMPRESSION: Mild pulmonary edema. Right lower lobe opacity not excluded. Stable mild cardiomegaly. Low riding right humerus; dislocation is not entirely excluded.. Reading Location: [id number] CC: Dr. Mame Bright MD; Dr. Keith Garcia MD ~ Overhead Crane Inspector: Signed [facility]08-06-2025 Discharge summary Author Keith Garcia [facility] Note Date/Time January 31, 2025 10: 38pm [facility] Medical Records Department [address] [place] [address] Emergency Department Summary 01/31/25 MR#: [id number] Acct: [id number] Name: RIGO GARCIA Rep #:[id number] : 1970 55 From: Keith Garcia MD PCP: Dr. Mame Bright MD Status:REG ER Location: ED HPI History of Present Illness Chief Complaint: Shortness of Breath Detail of Chief Complaint: Shortness of breath, cough, wheezing Informant: patient, EMS and SNF Onset/Context/Timing Onset: Today Context: Sudden Onset Timing: Continuous Quality: Dyspnea with nonproductive cough and wheezing Location: Respiratory Current Severity: Mild Maximum Severity: Moderate Worsened by: Dyspnea on exertion Relieved by: Nothing Associated Symptoms Associated Symptoms: Hypoxia per paramedics 84% on room air. He was not off oxygen long enough Narrative Narrative: Patient is a 55-year-old male. He has history of schizoaffective disorder, CVA 2013 affecting his dominant right side. He is in nursing facility because he isunable to care for himself. He also has history of type 2 diabetes, depression,hypercholesterolemia. Patient presents because of a reported pulse ox of 84% on room air. His sat here was 88% however he was not off oxygen long enough to determine what his yarelis would be. Patient does endorse cough and mild congestion. He also endorses wheezing. He has no history of COPD or asthma. He denies fever or chills. He states he does not feel well. He denies abdominal pain, nausea, vomiting or diarrhea. He denies dysuria, frequency, urgency or hematuria. He denies skin lesions. Prior similar symptoms: No Recent Illness/Hospitalization: No [facility] PFSH Medical History Hemiplegia and hemiparesis following cerebral infarction affecting right dominant side Dysarthria following cerebral infarction COPD (chronic obstructive pulmonary disease) Nicotine dependence, cigarettes, uncomplicated Violent behavior Unspecified lack of coordination Acute bronchitis, unspecified Pneumonitis due to inhalation of food and vomit Peripheral vascular disease, unspecified Need for assistance with personal care Gastro-esophageal reflux disease without esophagitis Benign prostatic hyperplasia with lower urinary tract symptoms CVA (cerebral vascular accident) Depression Diabetes Bipolar [...] 12/03/24 History release (Adult Low Dose Aspirin) buspirone 10 mg tablet 10 mg PO TID BIPOLAR 5 12/03/24 History calcium carbonate (Leslye-[place] 600 mg PO Q6H PRN hear tburn 07/31/24 11/26/24 History Heartburn Chew) cholecalciferol (vitamin D3) 1,250 1,250 mcg PO QWEEK SUPPLEMENT 07/31/24 11/27/24 History mcg (50,000 unit) capsule gabapentin 100 mg capsule 200 mg PO TID NEUROPATHIC PA IN 07/31/24 12/03/24 History lorazepam 1 mg tablet (Ativan) 1 mg PO TID agitation 0 07/31/24 12/03/24 History metformin 1,000 mg tablet 1,000 mg PO BID DM 07/31/24 12/03/24 History sennosides 8.6 mg-docusate sodium 1 tab-cap PO DAILY C ONSTIPATION 07/31/24 12/03/24 History 50 mg tablet (Colace 2-In-1) trazodone 50 mg tablet 50 mg PO QHS BIPOLAR 5 12/03/24 History vortioxetine 20 mg tablet 20 mg PO DAILY DEPRESSION 12/03/24 History (Trintellix) atorvastatin 10 mg tablet (Lipitor) 10 mg PO QHS 01/31 Unknown History lorazepam 1 mg tablet (Ativan) 1 mg PO Q8H 01/31/25 Un known History Allergy/AdvReac Type Severity Reaction Status Date / Time ibuprofen Allergy Rash Verified 01/31/25 20:24 Penicillins Allergy RASH Verified 01/31/25 20:24 Social History (Updated 01/31/25 @ 20:[address] Keith Garcia MD) housing: snf Smoking Status: Current every day smoker tobacco type: cigarettes ROS ROS ED Constitutional Constitutional ED: Denies chills, fever(s), subjective or sweats Eyes Eyes: Denies blurry vision or change in vision ENT ENT ED: Denies ear pain, rhinorrhea or sore throat Cardiovascular Cardiovascular: Denies chest pain, orthopnea, palpitations or paroxysmal nocturnal dyspnea Respiratory/Chest Respiratory/Chest: Reports cough and dyspnea; Denies orthopnea, paroxysmal nocturnal dyspnea or sputum Gastrointestinal Gastrointestinal: Denies abdominal pain, diarrhea, nausea or vomiting Genitourinary Genitourinary ED: Denies dysuria, hematuria or urinary frequency Musculoskeletal Musculoskeletal: Denies arthralgias or myalgias Integumentary Denies rash Neurologic Neurologic: Reports weakness; Denies headache(s) or paresthesias Psychiatric Psychiatric: Denies anxiety or depression Endocrine Endocrinology: Denies cold intolerance or heat intolerance Hematologic/Lymphatic Hematologic/Lymphatic: Reports systems reviewed and no addt'l complaints, exceptas documented EXAM Physical Exam Const Vital Signs: 01/31/25 20:19 01/31/25 20:28 01/31/25 20:31 Temperature 99 F 99 F Temperature Source Oral Oral Pulse Rate 84 99 Respiratory Rate 28 H 30 H Respiratory Effort Respiratory Depth Respiratory Pattern Blood Pressure 110/67 118/78 Blood Pressure Mean 81 91 Pulse Ox 88 92 94 Oxygen Delivery Method Room Air Nasal Cannula Nasal Cannula Oxygen Flow Rate (L/min) 2 3 01/31/25 20:32 01/31/25 20:43 01/31/25 21:19 Temperature Temperature Source Pulse Rate 101 H 100 Respiratory Rate 21 H 31 H Respiratory Effort Short of Breath Respiratory Depth Shallow Respiratory Pattern Tachypnea Tachypnea Blood Pressure 143/66 H Blood Pressure Mean 91 Pulse Ox 92 Oxygen Delivery Method Nasal Cannula Nasal Cannula Oxygen Flow Rate (L/min) 3 6 01/31/25 21:22 01/31/25 21:27 Temperature 98.8 F Temperature Source Oral Pulse Rate 96 Respiratory Rate 30 H Respiratory Effort Respiratory Depth Respiratory Pattern Blood Pressure 117/71 Blood Pressure Mean 86 Pulse Ox 95 92 Oxygen Delivery Method Nasal Cannula Nasal Cannula Oxygen Flow Rate (L/min) 6 Positive well nourished and well developed Constitutional Narrative: Patient does not appear well. He is tachypneic. He was hypoxic. Blood pressure is on the low side but within normal limits. He is not tachycardic. He is somnolent. He does have a nasal sounding voice. Since he is on oxygen now there is no evidence of acrocyanosis or central cyanosis. General Appearance ED: well developed; Negative for cyanotic, diaphoretic, NAD or pallor HEENT Reports moist mucous membranes HEENT Narrative: Poor dentition with his teeth eroded down to the gumline. Posterior pharynx is unremarkable. Mucosas moist. Ears normal. Nares patent with some slight cleardrainage. Eyes PERRL and EOMs intact bilaterally Eyes Narrative: The conjunctive is injected bilaterally. There is no obvious drainage. General Eye ED: Negative for pale conjunctiva or scleral icterus Neck no lymphadenopathy, supple and no JVD Resp normal respiratory effort and clear to auscultation bilaterally Cardio regular rate, regular rhythm, S1 normal heart sound, S2 normal heart sound and no murmurs GI normal to inspection, nondistended, normoactive bowel sounds, non-tender, non-distended and no masses; Negative for hepatosplenomegaly Palpation: soft Back/Spine no CVA tenderness Extremity normal to inspection General Extremety ED: Negative for tenderness Neuro No CN's II-XII intact bilaterally and No no sensory deficits noted Neuro Narrative: Residual deficit right side due to remote CVA. Sensorium / Orientation: Negative for alert Motor Exam: Negative for strength 5/5 throughout Psych Mood & Affect: depressed Skin no wounds and No skin turgor normal General Skin Exam: Negative for jaundice or pallor Sepsis Attestation Sepsis Alert: Yes Sepsis Attestation: Sepsis Ruled Out (Patient has no pneumonia and no endorgan dysfunction other than an elevated lactate which could be due to him taking metformin.) Date exam was performed: 01/31/25 Time exam was performed: 20:35 Possible Source of Sepsis: Other (Patient with similar presentation and had COPDexacerbation.) Sepsis Organ Dysfunction Criteria Present: Lactic Acid > 2 mmol/L Supportive Findings: Patient was not hypotensive and has no endorgan dysfunction therefore fluids were not ordered. MDM MDM MDM Narrative Medical decision making narrative: With patient being hypoxic with altered mental status and abnormal oscillatory findings need to evaluate for pneumonia will obtain chest x-ray appropriate blood work to assess for endorgan dysfunction as well as white count differential. With him being somnolent and heavyset will obtain ABG to rule outhypercapnia as the cause of his decreased level conscious versus infectious encephalopathy. Since there is no history of vomiting doubt aspiration. Since he was hypoxic is middle-age will obtain EKG to rule out any ischemic changes. History & Record Review Additional record(s) reviewed:: Prior inpatient record (Patient was admitted November of this year for lactic acidosis, hypotension unspecified and respiratory failure with hypoxia. He also had type 2 diabetes, schizoaffective disorder, hyperlipidemia it was felt that his respiratory failure was due to his COPD. That was not listed on his snf [facility]) and Prior labs Lab Data Attestation: I reviewed the patient's lab results. Lab results narrative: White count is normal. H&H is normal. Differential is normal. Comprehensive metabolic panel was slightly elevated alkaline phosphatase 143. This is nonspecific. Glucose is elevated 114 with a normal CO2 anion gap. Renal function is normal. Lactate is slightly elevated 2.2. This may be due to metformin. Labs: Laboratory Results - last 24 hr 01/31/25 21:12 WBC 10.2 RBC 4.95 Hgb 13.0 Hct 42.7 MCV 86.3 MCH 26.3 L MCHC 30.4 L RDW Std Deviation 48.1 H RDW Coeff of Thomas 15.4 H Plt Count 239 MPV 10.1 Immature Gran % (Auto) 0.300 Neut % (Auto) 67.9 Lymph % (Auto) 20.8 [place] % (Auto) 8.8 Eos % (Auto) 1.8 Baso % (Auto) 0.4 Absolute Neuts (auto) 6.9 Absolute Lymphs (auto) 2.12 Nucleated RBC % 0 PT 13.9 INR 1.1 APTT 26.2 Sodium 145 Potassium 4.3 Chloride 105 Carbon Dioxide 28.3 Anion Gap 12 BUN 17 Creatinine 1.17 Estim Creat Clear Calc 83.51 Est GFR (MDRD) Non-Af 74 BUN/Creatinine Ratio 14.4 Glucose 114 H Lactic Acid 2.2 H* Calcium 9.4 Total Bilirubin 0.27 AST 10 ALT < 5 Alkaline Phosphatase 143 H Total Protein 7.1 Albumin 4.3 Globulin 2.8 Albumin/Globulin Ratio 1.5 ABG Data Attestation: I personally reviewed and interpreted this ABG as follows: Interpretation: ABG reveals a mild metabolic acidosis. pH is 7.32, bicarb 21, total CO2 22, base excess -5, O2 saturation 91% on 6 L by nasal cannula. pCO2 is 40.8 and PO2is 65. Patient was placed on high flow oxygen per respiratory's recommendation. Since he is still wheezing 125 mg Solu-Medrol was ordered. After discussion with Dr. Fowler we will give 1 dose of Levaquin Floxin IV instead of p.o. She will see patient in the ER to determine where he should go. ABG results: ABG 01/31/25 22:18 Specimen Type ART Sample Site L Radial pH 7.32 L Bicarbonate Actual 21.0 L Total CO2 22 Base Excess -5 L O2 Saturation 91 L O2 % 6.0 ABG pCO2 40.8 ABG pO2 65 L Alin Test Positive O2 Delivery Device Cannula Vent Mode Not entered Radiography Chest X-Ray - ED: 2 View and Read by ED Physician (Independent reviewed interpreted by me at 2138. Limited study due to poor respiratory volume. Thereis no obvious infiltrate. There is no effusion. Cardiac silhouette size is normal. Hilum appears unremarkable. Osseous structures reveal no acute process.) Diagnostic Testing: Clinical Impression(s) from Imaging Studies Chest X-Ray 01/31/25 21:32 IMPRESSION: Mild pulmonary edema. Right lower lobe opacity not excluded. Stable mild cardiomegaly. Low riding right humerus; dislocation is not entirely excluded.. Reading Location: [facility] EKG Initial EKG: Attestation: I personally reviewed and interpreted this EKG as follows: Interpretation: Sinus Rhythm (Rate is 80. The EKG is normal. HI intervalis on 56 ms. QS duration 78 ms. QT duration 260 ms. [place] is normal.) Management Discussion w/another healthcare provider: Hospitalist (Dr. Fowler was informed the patient's history, physical, objective findings. The last time he presentedlike this he was admitted to the ICU. She would like to see him to determine where best to place him.) Critical Care Time Critical Care Time: Yes Critical care time (excluding procedures): 30-74 minutes (32), Including time spent: (History, physical, documentation, review of prior records, review of records from SNF), Discussing w/Patient &/or Family/Generator Technician, Discussing w/Consultants (Discussion with hospitalist for admission), Arranging Admission or Transfer and - (Discussion with respiratory therapist.) Discharge Plan Triage Chief Complaint: Shortness of Breath ED Provider: Keith Garcia Dx/Rx/DC Orders Clinical Impression: Acute hypoxemic respiratory failure, Type 2 diabetes mellitus, Acute exacerbation of chronic obstructive pulmonary disease, Acute bronchospasm, Acidosis, lactic, Hemiplegia affecting dominant side, post-stroke Prescriptions: No Action atorvastatin [Lipitor] 10 mg tablet 10 mg PO QHS lorazepam [Ativan] 1 mg tablet 1 mg PO Q8H Trintellix 20 mg tablet 20 mg PO DAILY sennosides-docusate sodium [Colace 2-In-1] 8.6-50 mg tablet 1 tab-cap PO DAILY aripiprazole [Abilify] 15 mg tablet 15 mg PO DAILY aspirin [Adult Low Dose Aspirin] 81 mg tablet,delayed release (DR/EC) 81 mg PO DAILY lorazepam [Ativan] 1 mg tablet 1 mg PO TID buspirone 10 mg tablet 10 mg PO TID gabapentin 100 mg capsule 200 mg PO TID trazodone 50 mg tablet 50 mg PO QHS cholecalciferol (vitamin D3) 1,250 mcg (50,000 unit) capsule 1,250 mcg PO QWEEK Rx Instructions: QMONDAY metformin 1,000 mg tablet 1,000 mg PO BID Leslye-Gothenburg Heartburn Chew 300 mg (750 mg) tablet,chewable 600 mg PO Q6H PRN (Reason: heartburn) acetaminophen [Aminofen] 325 mg tablet 650 mg PO Q4H PRN (Reason: fever or pain) Primary Care Provider: Mame Bright Referrals: Mame Bright MD [Primary Care Provider] - Print Language: Tuvaluan Disposition Disposition: Acute Care Hospital [facility] What to do if you have Problems For any increased pain, shortness of breath, bleeding, nausea or vomiting, chestpain, or any unexpected problems, contact your Primary Care Provider. Call [facility] ([phone]) or report to the closest Emergency Room. Call 911 if necessary. 01/31/252237 <Electronically signed by Keith Garcia MD> Cosigner Signature (if applicable): CC: Dr. Mame Bright MD ~ Signed [facility] Work Phone: 1(706) 295-386306-11-2025 Discharge summary Author Michelle [facility] Note Date/Time December 06, 2024 1:34 pm [facility] Medical Records Department [address] [place] [address] Transfer to [facility] MR#: [id number] Acct: [id number] Name: RIGO GARCIA Rep #:[id number] : 1970 54 From: Michelle Angeles MD PCP: Dr. Mame Bright MD Status:ADM IN Certification of patient admission REQUIRED AT TIME OF ADMISSION. I CERTIFY THAT POST-HOSPITAL F SERVICES ARE REQUIRED TO BE GIVEN ON AN IN-PATIENT BASIS BECAUSE OF THE ABOVE NAMED PATIENT'S NEED FOR PRISON CARE ON A CONTINUING BASIS FOR THE CONDITION(S) FOR WHICH HE/SHE WAS RECEIVING IN-PATIENT HOSPITAL SERVICES PRIOR TO HIS/HER TRANSFER TO THE [facility]. 12/06/24 2644<Electronically signed by Michelle Angeles MD> Diet Diet [...] 90%. * Transfer out of ICU to [facility] today. * #Type II diabetes mellitus: [...] Shepard; Makayla French; Patricia Vargas; Mirna Dahl; Tawanda Silveira; Ernie Law; Hussain Mora; Jose Mejias; Jayleen [...] 20 mg tablet 20 mg PO QHS Leslye-Gothenburg Heartburn Chew 300 mg (750 mg) tablet,chewable 600 mg PO Q6H PRN (Reason: heartburn) acetaminophen [Aminofen] 325 mg tablet 650 mg PO Q4H PRN (Reason: fever or pain) Referrals / Follow Up: Mame Bright MD [Primary Care Provider] - Within 1 Week Disposition Disposition (needs filled in before D/C Order can be placed): [facility] Facility 12/06/24 1334 <Electronically signed by Michelle [...] Zion Tobias MD; Dr. Karlo MD ~ [facility] Work Phone: [phone]) 543-581606-11-2025 Discharge summary [facility] Medical Records Department [address] [place] [address] Transfer to [facility] MR#: [id number] Acct: [id number] Name: RIGO GARCIA Rep #:[id number] : 1970 54 From: Michelle Angeles MD PCP: Dr. Mame Bright MD Status:ADM IN Certification of patient admission REQUIRED AT TIME OF ADMISSION. I CERTIFY THAT POST-HOSPITAL ECF SERVICES ARE REQUIRED TO BE GIVEN ON AN IN-PATIENT BASIS BECAUSE OF THE ABOVE NAMED PATIENT'S NEED FOR PRISON CARE ON A CONTINUING BASIS FOR THE CONDITION(S) FOR WHICH HE/SHE WAS RECEIVING IN-PATIENT HOSPITAL SERVICES PRIOR TO HIS/HER TRANSFER TO THE [facility]. 12/06/24 1334 Diet Diet Order/Speech Therapy: INPATIENT [...] 90%. * Transfer out of ICU to [facility] today. * #Type II diabetes mellitus: [...] Shepard; Makayla French; Patricia Vargas; Mirna Dahl; Tawanda Silveira; Ernie Law; Hussain Mora; Jose Mejias; Jayleen [...] 20 mg tablet 20 mg PO QHS Leslye-[place] Heartburn Chew 300 mg (750 mg) tablet,chewable 600 mg PO Q6H PRN (Reason: heartburn) acetaminophen [Aminofen] 325 mg tablet 650 mg PO Q4H PRN (Reason: fever or pain) Referrals / Follow Up: Mame Bright MD [Primary Care Provider] - Within 1 Week Disposition Disposition (needs filled in before D/C Order can be placed): [facility] Facility 12/06/24 1334 Cosigner Signature (if applicable): [...] Zion Tobias MD; Dr. Karlo MD ~ [facility]06-11-2025 [facility]06-10-2025 Progress note Author Michelle Angeles [facility] Note Date/Time December 05, 2024 5:50 pm [facility] Medical Records Department [address] [place] [address] Progress Note 12/05/24 1419 MR#: [id number] Acct: [id number] Name: RIGO GARCIA Rep #:[id number] : 1970 54 From: Micehlle Angeles MD PCP: Dr. Mame Bright MD Status:ADM IN Location: [place] [address] Subjective Subjective Patient seen and examined. He [...] (Auto) 78.4 H, Lymph %(Auto) 11.6 L, [place] % (Auto) 9.4, Eos % (Auto) 0.1, [...] bilateral basilar atelectatic pulmonary changes. Reading Location: [place] [address] Physical Exam Const alert and no apparent [...] 90%. * Transfer out of ICU to [facility] today. * #Type II diabetes mellitus: [...] not recur. Charges/Coding Visit Charges Inpatient E&M: 98072 Subs Hosp L2 12/05/24 1750 <Electronically signed by Michelle Angeles MD> Michelle Angeles MD Cosigner Signature (if applicable): CC: ~ Signed [facility] Work Phone: 1(956) 495-981206-10-2025 Progress note [facility] Medical Records Department [address] [place] [address] Progress Note 12/05/24 1419 MR#: [id number] Acct: [id number] Name: RIGO GARCIA Rep #:[id number] : 1970 54 From: Michelle Angeles MD PCP: Dr. Mame Bright MD Status:ADM IN Location: [place] [address] Subjective Subjective Patient seen and examined. He [...] (Auto) 78.4 H, Lymph %(Auto) 11.6 L, [place] % (Auto) 9.4, Eos % (Auto) 0.1, [...] bilateral basilar atelectatic pulmonary changes. Reading Location: [place] [address] Physical Exam Const alert and no apparent [...] 90%. * Transfer out of ICU to [facility] today. * #Type II diabetes mellitus: [...] not recur. Charges/Coding Visit Charges Inpatient E&M: 18396 Subs Hosp L2 12/05/24 4660 Michelle Angeles MD Cosigner Signature (if applicable): CC: ~ Signed [facility]06-10-2025 Consult note Author Ean Quintana [facility] Note Date/Time December 05, 2024 9:37 am [facility] Medical Records Department [address] [place] [address] Consultation - Sprayer Insecticide 12/05/24 0652 MR#: [id number] Acct: [id number] Name: RIGO GARCIA Rep #:[id number] : 1970 54 From: Ean Quintana DO [...] medicationsas indicated. This note was generated with Soicosation software. It may contain incorrectwords, spelling, and [...] but is not currently followed by a consulting hr professional, nor has he ever been diagnosedwith COPD. [...] morning demonstrated no focal infiltrate or consolidation. [facility] Medical History (Updated 12/05/24 @ 09:32 by [...] TID BIPOLAR 5 12/03/24 History calcium carbonate (Leslye-Gothenburg 600 mg PO Q6H PRN hear tburn [...] 85.9 H, Lymph % (Auto) 6.3 L, [place] % (Auto) 6.8, Eos % (Auto) 0.5, [...] Clarity Clear, Urine pH 5.0, Ur Specific Aurora 1.020, Urine Protein 30 H, Urine Glucose [...] (Auto) 78.4 H, Lymph %(Auto) 11.6 L, [place] % (Auto) 9.4, Eos % (Auto) 0.1, [...] 10:43 IMPRESSION: No acute process. Reading Location: [facility] Charges/Coding Visit Charges Inpatient E&M: 63852 Init Hosp L3 12/05/24 0937 <Electronically signed by Ean Quintana DO> Cosigner Signature (if applicable): CC: Dr. Mame Bright MD~ Signed [facility] Work Phone: 1(241) 840-837006-10-2025 Consult note [facility] Medical Records Department [address] [place] [address] Consultation - Sprayer Insecticide 12/05/24 0652 MR#: [id number] Acct: [id number] Name: RIGO GARCIA Rep #:[id number] : 1970 54 From: Ean Quintana DO [...] medicationsas indicated. This note was generated with Brightstorm dictation software. It may contain incorrectwords, spelling, and [...] but is not currently followed by a consulting hr professional, nor has he ever been diagnosedwith COPD. [...] morning demonstrated no focal infiltrate or consolidation. [facility] Medical History (Updated 12/05/24 @ 09:32 by [...] TID BIPOLAR 5 12/03/24 History calcium carbonate (Leslye-Got[place] 600 mg PO Q6H PRN hear tburn [...] 85.9 H, Lymph % (Auto) 6.3 L, [place] % (Auto) 6.8, Eos % (Auto) 0.5, [...] Clarity Clear, Urine pH 5.0, Ur Specific [place] 1.020, Urine Protein 30 H, Urine Glucose [...] (Auto) 78.4 H, Lymph %(Auto) 11.6 L, [place] % (Auto) 9.4, Eos % (Auto) 0.1, [...] 10:43 IMPRESSION: No acute process. Reading [facility] Charges/Coding Visit Charges Inpatient E&M: 31399 Init Hosp L3 12/05/24 0937 Cosigner Signature (if applicable): CC: Dr. Mame Bright MD~ Signed [facility]06-10-2025 Radiology Diagnostic study note [facility] Imaging Services [address] [place] [address] Chest 1 View (Portable) MR#: [id number] Acct: [id number] Name: RIGO GARCIA Rep #: [id number] : 1970 M 54 From: Sohan Chadwick MD PCP: Dr. Mame Bright MD Status: ADM IN Study:Chest 1 View (Portable) Date of Exam: 12/05/24 Exam# [id number] Ordering Dr: Richardson DO PROCEDURE: CHEST 1 [...] bilateral basilar atelectatic pulmonary changes. Reading Location[facility] CC: Dr. Ean Quintana DO; Dr. Mame Bright MD ~ Overhead Crane Inspector: Signed [facility]06-09-2025 History and physical note Author Michelle Angeles [facility] Note Date/Time December 04, 2024 6:53p m [facility] Medical Records Department [address] [place] [address] H&P Exam - Hospitalist 12/04/24 1248 MR#: [id number] Acct: [id number] Name: RIGO GARCIA Rep #:[id number] : 1970 54 From: Michelle Angeles MD PCP: Dr. Mame Bright MD Status:ADM IN Location: ICU ICU03-1 HPI - General General Date of Admission: 12/04/24 Date of Service: 12/04/24 Chief Complaint: nausea, vomiting HPI Narrative RIGO GARCIA, is a 54 M with a PMH as outlined who presents from his SNF on 12/04/2024 with a complaint of nausea and vomiting. [facility] [...] to COPD exacerbation with probable aspiration pneumonia. [facility] Medical History CVA (cerebral vascular accident) Depression [...] TID BIPOLAR 5 12/03/24 History calcium carbonate (Leslye-Gothen[place] 600 mg PO Q6H PRN hear tburn [...] 85.9 H, Lymph % (Auto) 6.3 L, [place] % (Auto) 6.8, Eos % (Auto) 0.5, [...] Clarity Clear, Urine pH 5.0, Ur Specific [place] 1.020, Urine Protein 30 H, Urine Glucose [...] 10:43 IMPRESSION: No acute process. Reading Location[facility] Assessment & Plan Assessment/Plan (1) Acidosis, lactic: [...] Full code Charges/Coding Visit Charges Inpatient E&M: 45478 Init Hosp L3 12/04/24 1853 <Electronically signed by Michelle Angeles MD> Cosigner Signature (if applicable): CC: Dr. Michelle Angeles MD; Dr. Mame Bright MD~ Signed [facility] Work Phone: 1(202) 611-926406-09-2025 History and physical note [facility] Medical Records Department [address] [facility] [address] H&P Exam - Hospitalist 12/04/24 1248 MR#: [id number] Acct: [id number] Name: RIGO GARCIA Rep #:[id number] : 1970 54 From: Michelle Angeles MD PCP: Dr. Mame Bright MD Status:ADM IN Location: ICU ICU03-1 HPI - General General Date of Admission: 12/04/24 Date of Service: 12/04/24 Chief Complaint: nausea, vomiting HPI Narrative RIGO GARCIA, is a 54 M with a PMH as outlined who presents from his SNF on 12/04/2024 with a complaintof nausea and vomiting. [facility] HE was brought in from [...] due to COPD exacerbation with probable aspirationpneumonia. [facility] Medical History CVA (cerebral vascular accident) Depression [...] TID BIPOLAR 5 12/03/24 History calcium carbonate (Leslye-Got[place] 600 mg PO Q6H PRN hear tburn [...] 85.9 H, Lymph % (Auto) 6.3 L, [place] % (Auto) 6.8, Eos % (Auto) 0.5, [...] Clarity Clear, Urine pH 5.0, Ur Specific [place] 1.020, Urine Protein 30 H, Urine Glucose [...] 10:43 IMPRESSION: No acute process. Reading Location[facility] Assessment & Plan Assessment/Plan (1) Acidosis, lactic: [...] Full code Charges/Coding Visit Charges Inpatient E&M: 77503 Init Hosp L3 12/04/24 1853 Cosigner Signature (if applicable): CC: Dr. Michelle Angeles MD; Dr. Mame Bright MD~ Signed [facility]06-09-2025 Discharge summary Author Franco Benites [facility] Note Date/Time December 04, 2024 4:50p m [facility] Medical Records Department [address] [place] [address] Emergency Department Summary 12/04/24 MR#: [id number] Acct: [id number] Name: RIGO GARCIA Rep #:[id number] : 1970 54 From: Franco ge DO [...] poor historian therefore history taken by [facility] where patient resides as well as medical [...] Alert, grossly intact, sensation intact Psych: [facility] Medical History CVA (cerebral vascular accident) Depression [...] TID BIPOLAR 5 12/03/24 History calcium carbonate (Leslye-[place] 600 mg PO Q6H PRN hear tburn [...] poor historian therefore history taken by [facility] where patient resides as well as medical [...] [facility]. [facility] [...] exacerbation from viral illness versus aspiration/early pneumonia. Patinet was discussed with thehospitalist who accept [...] 85.9 H Lymph % (Auto) 6.3 L [place] % (Auto) 6.8 Eos % (Auto) 0.5 [...] Clarity Clear Urine pH 5.0 Ur Specific [place] 1.020 Urine Protein 30 H Urine Glucose [...] 10:43 IMPRESSION: No acute process. Reading Location: [facility] Discharge Plan Disposition Disposition: Acute Care Hospital [facility] Discharge Date/Time: 12/04/24 14:20 What to do if you have Problems For any increased pain, shortness of breath, bleeding, nausea or vomiting, chestpain, or any unexpected problems, contact your Primary Care Provider. Call [facility] ([phone]) or report to the closest Emergency Room. Call 911 if necessary. 12/04/24 1650 <Electronically signed by Franco Benites DO> Cosigner Signature (if applicable): CC: Dr. Mame Bright MD ~ Signed [facility] Work Phone: 1(119) 281-333306-09-2025 Discharge summary [facility] Medical Records Department [address] [place] [address] Emergency Department Summary 12/04/24 MR#: [id number] Acct: [id number] Name: RIGO GARCIA Rep #:[id number] : 1970 54 From: Franco ge DO [...] poor historian therefore history taken by [facility] where patient resides as well as medical [...] Alert, grossly intact, sensation intact Psych: Cooperative [facility] Medical History CVA (cerebral vascular accident) [...] TID BIPOLAR 5 12/03/24 History calcium carbonate (Leslye-[place] 600 mg PO Q6H PRN hear tburn [...] very poor historian therefore [facility] taken [facility] as well as medical [...] ordered. [facility] for [...] from viral illness versus aspiration/early p neumonia. Es was discussed with thehospitalist who accept admission to the ICU. 35 minutes of critical care time utilized in managing the patient. This is due to high probability of and deterioration of the patient based on the patient's condition and excludes any separately billable procedures. EKG: Interpreted by me/EM physician: EKG shows sinus tachycardia with nonspecific ST changes. Heart [id number]. Impression: 1. Sepsis unclear etiology although suspect [...] 85.9 H Lymph % (Auto) 6.3 L [place] % (Auto) 6.8 Eos % (Auto) 0.5 [...] Clarity Clear Urine pH 5.0 Ur Specific Aurora 1.020 Urine Protein 30 H Urine Glucose [...] 10:43 IMPRESSION: No acute process. Reading Location[facility] Discharge Plan Disposition Disposition: Acute Care Hospital [facility] Discharge Date/Time: 12/04/24 14:20 What to do if you have Problems For any increased pain, shortness of breath, bleeding, nausea or vomiting, chestpain, or any unexpected problems, contact your Primary Care Provider. Call [facility] ([phone]) or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 anotherresident. Reports indicate they attempted [facility] and [facility] without success. Pt's ambulance was delayed several hrs prior to him coming to [facility] ED. He's been seen at [facility] ED at least twice for aggressive behaviors at facilities. He was admitted to [facility] on 09/04/2020. PSS reached pt's sister and Guardian, Chris Garcia who was aware of incident at facility but hadn't called facility back yet. She wasn't aware he was coming to [facility] ED for evaluation. Sister's last in person visit with pt was several weeks ago (due to COVID 19 restrictions). She reports he has mood fluctuations at baseline. Sister had no additional information about this incident orED visit. Would benefit from more information/concerns from facility dayshift staff or DON from facility. DEMOGRAPHICS: Rigo was born and raised in [place], [place]. Rigo was adopted as a young [...] learning disabilities. Rigo's source of income is [email or web address]. Rigo has never worked due to being on disability. Rigo lives at [facility]. Rigo denied having possession of or access to weapons. Rigo denied ever being abused or neglected. Rigo denied having experience. Rigo denied having legal issues. Rigo reported that his methodist preference is Anabaptism. PAST PSYCHIATRIC HISTORY Past Psychiatric History Previous Psychiatric Diagnosis: Bipolar I Disorder, CVA, MDD, Schizophrenia, Anxiety Previous Psychiatric Medications: Anti-depressants, Anti-psychotics, Mood stabilizers Previous Psychiatric Hospitalizations: records indicate pt's been admitted numerous times beginningat 15 yrs old. [facility] 2020, [facility] 2016, 2011 and [facility] 2011 Current Psychiatric Medications: Onsted, Celexa, Haldol injection once a month, Haldol, Onsted, Melatonin, Trazodone ALCOHOL/DRUG ABUSE HISTORY Alcohol/Drug Abuse [...] (Community Support): Yes (linked to psychiatrist at [facility]) Skills In Problem Solving and Conflict Resolution (Coping Skills): Other (Comment) (limited relatedto medical/MH hx) Cultural and Restorationist Beliefs: Yes Access to Weapons: No TREATMENT [...] He's been seen here at [facility] ED twice in 2019 for similar incidents and didn't require psychiatric medications. Pt has a psychiatrist, Dr. Vijay Krishnamurthy at [facility]. He can likely return to facility upon assessment and additional collateral pending any lethality concerns. Plan: pt will be fully assessed once awake and able to participate in a meaningful evaluation. Discussed with ED team who are aware and agreeable to plan. documented in this [id number] Miscellaneous Notes* ED Attestation Note - Joon [...] suicidal or homicidal. IMPRESSION: 1. Agitation . ([employer] was used to transcribe this note) ED Course: ED Course as of Dec 12 043 [facility] Dec 12, 2020 0252 No signs of [...] Procedure Abnormality Status --------- ------ CBC Auto Differential[[id number]] Abnormal Final result Please view results for [...] for this patient. . documented [facility]* Diagnosis Agitation- Primary Other and unspecified special symptom or syndrome, not elsewhere classified Mood disorder due to known physiological condition with depressive features [facility]* Diagnosis Bipolar disorder, current episode mixed, moderate (HCC)- Primary Bipolar I disorder, most recent episode (or current) mixed, moderate Medical clearance for psychiatric admission Agitation Other and unspecified special symptom or syndrome, not elsewhere classified documented in this encounter [facility]* Diagnosis Schizoaffective disorder, bipolar type (CMS/HCC)- Primary Schizoaffective disorder, unspecified condition Schizoaffective disorder, bipolar type (CMS/HCC) Schizoaffective disorder, unspecified condition Bipolar 1 disorder with moderate rudy (CMS/HCC) Inappropriate sexual behavior History of stroke Transient ischemic attack (TIA), and cerebral infarction without residual deficits Hypertension Unspecified essential hypertension [facility] Diagnosis Onset Date Resolution Status Admit Date Acidosis, lactic acute November 1:06pm Acute hypoxic respiratory failure [facility] [place] December 04, 2024 1:06pm Hypotension acute December 04 1:06pm [facility] Work Phone: History and physical note Author Rosalva Fowler [facility] Note Date/Time January 31, 2025 11: 19pm [facility] Medical Records Department [facility] [place] [address] H&P Exam - Hospitalist 01/31/25 2231 MR#: [id number] Acct: [id number] Name: RIGO GARCIA Rep #:[id number] : 1970 55 From: Rosalva Fowler MD PCP: Dr. Mame Bright MD Status:REG ER Location: ED HPI - General General Date of Admission: 01/31/25 Date of Service: 01/31/25 Chief Complaint: Cough, dyspnea, wheezing. HPI Narrative The patient is a 55 y/o M w/ PMHx: Hx CVA w/ R sided hemiplegia/Chronic dysarthria, COPD, Tobacco use, PVD, BPH with obstructive pathology, Anxiety and Depression/Bipolar disorder/chart reported history of previous violent behavior/schizophrenia, Diabetes mellitus type II, most recent discharge noted 12/06/2024 following evaluation for acute on chronic hypoxic and hypercapnic respiratory failure secondary to COPD exacerbation and suspected aspiration pneumonia with associated lactic acidosis who presents to the [facility] ED on 01/31/2025 from his skilled facility with skilled facility report of difficulty breathing all day with increased cough, decreased appetite as wellas lethargy with hypoxia noted to be 86% on room air in addition to wheezing at his facility prompting ED evaluation. Patient also reports mild congestion. [facility] notes that he occasionally has been coughing with oral food intake. Workupin the ED included T99, heart rate 84, BP 110/67, respiratory rate 28, vqhgdrgex04% on room air with improvement to 94% on 3 L nasal cannula-> most recent repeat vitals upon evaluation T98.8, heart rate 96, BP 117/71, respiratory rate 30, 92% on 6 L nasal cannula--> eventually transition to Airvo, ABG with pH 7.32, bicarb 21, O2 saturation 91%, pCO2 40.8, PO265 on nasal cannula, CBC with WC 10.2, hemoglobin 13, MCV 86.3, platelet 239 without marked shift, lactic acid2.2, CMP with BUN/creatinine 17/1.17, GFR 74, glucose 114, alk phos 143 otherwise not marked appearing, chest x-ray with mild pulm edema with inability to exclude right lower lobe opacity and stable mild cardiomegaly with a low riding right humerus with dislocation unable to be entirely excluded, blood culture x 2 pending per ED. In the ED patient administered Solu-Medrol 125 mg IVx 1, Levaquin 750 mg IV x 1 and maintenance IV fluids. [facility] Medical History Hemiplegia and hemiparesis following cerebral infarction affecting right dominant side Dysarthria following cerebral infarction COPD (chronic obstructive pulmonary disease) Nicotine dependence, cigarettes, uncomplicated Violent behavior Unspecified lack of coordination Acute bronchitis, unspecified Pneumonitis due to inhalation of food and vomit Peripheral vascular disease, unspecified Need for assistance with personal care Gastro-esophageal reflux disease without esophagitis Benign prostatic hyperplasia with lower urinary tract symptoms CVA (cerebral vascular accident) Depression Diabetes Bipolar [...] 12/03/24 History release (Adult Low Dose Aspirin) buspirone 10 mg tablet 10 mg PO TID BIPOLAR 5 12/03/24 History calcium carbonate ([place]lye-[place] 600 mg PO Q6H PRN hear tburn 07/31/24 11/26/24 History Heartburn Chew) cholecalciferol (vitamin D3) 1,250 1,250 mcg PO QWEEK SUPPLEMENT 07/31/24 11/27/24 History mcg (50,000 unit) capsule gabapentin 100 mg capsule 200 mg PO TID NEUROPATHIC PA IN 07/31/24 12/03/24 History lorazepam 1 mg tablet (Ativan) 1 mg PO TID agitation 0 07/31/24 12/03/24 History metformin 1,000 mg tablet 1,000 mg PO BID DM 07/31/24 12/03/24 History sennosides 8.6 mg-docusate sodium 1 tab-cap PO DAILY C ONSTIPATION 07/31/24 12/03/24 History 50 mg tablet (Colace 2-In-1) trazodone 50 mg tablet 50 mg PO QHS BIPOLAR 5 12/03/24 History vortioxetine 20 mg tablet 20 mg PO DAILY DEPRESSION 12/03/24 History (Trintellix) atorvastatin 10 mg tablet (Lipitor) 10 mg PO QHS 01/31 Unknown History lorazepam 1 mg tablet (Ativan) 1 mg PO Q8H 01/31/25 Un known History Allergy/AdvReac Type Severity Reaction Status Date / Time ibuprofen Allergy Rash Verified 01/31/25 20:24 Penicillins Allergy RASH Verified 01/31/25 20:24 adopted (Patient does not know his maternal/paternal biological family history.) Surgical History (Updated 01/31/25 @ 23:[address] Rosalva Fowler MD) No history of previous surgery Social History (Updated 01/31/25 @ 23:[address] Rosalva Fowler MD) housing: snf Smoking Status: Current every day smoker tobacco type: cigarettes Smoking packsper day: 0.25 Smoking cigarettes per day: 5.0 alcohol intake: never substance use type: does not use ROS ROS Narrative Admission Review of Systems: CONSTITUTIONAL: No weight loss, fever, chills, + weakness or fatigue. HEENT: + Mild congestion. Eyes: No visual loss, blurred vision, double vision or yellow sclerae. Ears, Nose, Throat: No hearing loss, sneezing, runny nose or sore throat. SKIN: No rash or itching, lesions, wounds. CARDIOVASCULAR: No chest pain, chest pressure or chest discomfort, palpitations,edema, orthopnea, syncopal events. RESPIRATORY: + Dyspnea, cough, wheezing. No hemoptysis. GASTROINTESTINAL: + Decreased appetite. No nausea, vomiting or diarrhea, abdominal pain, melena, BRBPR. GENITOURINARY: No dysuria, frequency, urgency or retention. NEUROLOGICAL: + History of CVA with chronic right-sided hemiplegia, dysarthria. No headache, dizziness, syncope, change in bowel or bladder control, seizure. MUSCULOSKELETAL: + muscle, back pain, joint pain or stiffness. HEMATOLOGIC: No anemia, bleeding or bruising. LYMPHATICS: No enlarged nodes. No history of splenectomy. PSYCHIATRIC: N+ history of anxiety and depression/bipolar disorder/violent behavior/schizophrenia. ENDOCRINOLOGIC: No reports of sweating, cold or heat intolerance. No polyuria orpolydipsia. ALLERGIES: No history of asthma, hives, eczema or rhinitis. Vital Signs Vital Signs Vital Signs: 01/31/25 20:19 01/31/25 20:28 01/31/25 20:31 Temperature 99 F 99 F Temperature Source Oral Oral Pulse Rate 84 99 Respiratory Rate 28 H 30 H Respiratory Effort Respiratory Depth Respiratory Pattern Blood Pressure 110/67 118/78 Blood Pressure Mean 81 91 Pulse Ox 88 92 94 Oxygen Delivery Method Room Air Nasal Cannula Nasal Cannula Oxygen Flow Rate (L/min) 2 3 01/31/25 20:32 01/31/25 20:43 01/31/25 21:19 Temperature Temperature Source Pulse Rate 101 H 100 Respiratory Rate 21 H 31 H Respiratory Effort Short of Breath Respiratory Depth Shallow Respiratory Pattern Tachypnea Tachypnea Blood Pressure 143/66 H Blood Pressure Mean 91 Pulse Ox 92 Oxygen Delivery Method Nasal Cannula Nasal Cannula Oxygen Flow Rate (L/min) 3 6 01/31/25 21:22 01/31/25 21:27 Temperature 98.8 F Temperature Source Oral Pulse Rate 96 Respiratory Rate 30 H Respiratory Effort Respiratory Depth Respiratory Pattern Blood Pressure 117/71 Blood Pressure Mean 86 Pulse Ox 95 92 Oxygen Delivery Method Nasal Cannula Nasal Cannula Oxygen Flow Rate (L/min) 6 Weight Weight: 229 lb 15.074 oz Body Mass Index (BMI) 34.9 Physical Exam Narrative Physical Examination: General: Awake, alert, oriented to self, place, recent events, notably dysarthric/ chronically garbled speech status post CVA, remains cooperative, seated upright in the ED bed, Airvo in place now. Skin: Normal color, normal turgor, no icterus, no cyanosis except occasional abrasion. HEENT: AT/NC, EOMI, mild bilateral scleral injection, PERRLA, moderately dry MM,poor dentition, no carotid bruits, no obvious JVD elevation however thickened neck makes evaluation difficult. Lungs: Diminished, greater bases, mildly coarse bilaterally, moist upper airway sounds, Airvo in place, occasional end expiratory wheezing, mildly increased respiratory rate but no distress. Heart: Regular rate and rhythm; no gallop, rub audible. Abdomen: Soft, obese, NTTP, normal distant BS, no obvious marked distention or tympany, no obvious HSM however habitus makes evaluation difficult. Extremities: No cyanosis, no clubbing, chronic bilateral lower extremity pedal to distal delatorre edema, Nas wraps in place. Neurological: Patient awake, alert, oriented as noted, cognitive function baseline intact; pupils equally reactive to light and accommodation, cranial nerves grossly normal, chronic right sided hemiplegia status post CVA, strength severely globally decreased. Psychiatric: Affect appears flat, fatigued, no acute evidence of depressive or anxiety feelings but does have underlying psychiatric history. Results Lab / Micro Data 01/31/25 21:12 01/31/25 21:12 Labs: Laboratory Results - last 24 hr 01/31/25 21:12: WBC 10.2, RBC 4.95, Hgb 13.0, Hct 42.7, MCV 86.3, MCH 26.3 L, MCHC 30.4 L, RDW Std Deviation 48.1 H, RDW Coeff of Thomas 15.4 H, Plt Count 239, MPV 10.1, Immature Gran % (Auto) 0.300, Neut % (Auto) 67.9, Lymph % (Auto) 20.8,[place] % (Auto) 8.8, Eos % (Auto) 1.8, Baso % (Auto) 0.4, Absolute Neuts (auto) 6.9, Absolute Lymphs (auto) 2.12, Nucleated RBC % 0, PT 13.9, INR 1.1, APTT 26.2, Sodium 145, Potassium 4.3, Chloride 105, Carbon Dioxide 28.3, Anion Gap 12, BUN 17, Creatinine 1.17, Estim Creat Clear Calc 83.51, Est GFR (MDRD) Non-Af74, BUN/Creatinine Ratio 14.4, Glucose 114 H, Lactic Acid 2.2 H*, Calcium 9.4, Total Bilirubin 0.27, AST 10, ALT < 5, Alkaline Phosphatase 143 H, Total Protein7.1, Albumin 4.3, Globulin 2.8, Albumin/Globulin Ratio 1.5 ABG Data ABG results: ABG 01/31/25 22:18 Specimen Type ART Sample Site L Radial pH 7.32 L Bicarbonate Actual 21.0 L Total CO2 22 Base Excess -5 L O2 Saturation 91 L O2 % 6.0 ABG pCO2 40.8 ABG pO2 65 L Alin Test Positive O2 Delivery Device Cannula Vent Mode Not entered Imaging Radiology Impression Chest X-Ray 01/31/25 21:32 IMPRESSION: Mild pulmonary edema. Right lower lobe opacity not excluded. Stable mild cardiomegaly. Low riding right humerus; dislocation is not entirely excluded.. Reading Location: [facility] Assessment & Plan Assessment/Plan (1) Acute exacerbation of chronic obstructive pulmonary disease: PLAN: Plan The patient is a 55 y/o M w/ PMHx: Hx CVA w/ R sided hemiplegia/Chronic dysarthria, COPD, Tobacco use, PVD, BPH with obstructive pathology, Anxiety and Depression/Bipolar disorder/chart reported history of previous violent behavior/schizophrenia, Diabetes mellitus type II, most recent discharge noted 12/06/2024 following evaluation for acute on chronic hypoxic and hypercapnic respiratory failure secondary to COPD exacerbation and suspected aspiration pneumonia with associated lactic acidosis who presents to the [facility] ED on 01/31/2025 from his skilled facility with skilled facility report of difficulty breathing all day with increased cough, decreased appetite as wellas lethargy with hypoxia noted to be 86% on room air in addition to wheezing at his facility prompting ED evaluation. #1. Acute Encephalopathy secondary to Acute Hypoxic Respiratory Failure (requiring Airvo initiation, hypoxia on ABG, up to 6L prior to airvo) secondary to Acute on Chronic COPD exacerbation with questionable right lower lobe infiltrate, possible aspiration, possible gram-negative/gram-positive organisms with mild lactic acidosis likely secondary to hypoxemia: Will admit to [facility], maintain on oxygen with wean as tolerated to room air, continue ATC duonebs, PRNalbuterol, IV methylprednisolone, maintain on IV Levaquin and Vancomycin given recent hospitalization prolonged as well as possible aspiration component with de-escalation as able, MRSA screen requested, HOB, IS parameters w/ pending sputum cultures, full respiratory viral panel and urine antigens. Procalcitonin requested. Bld cx x 2 obtained in the ED. PT/OT/ST/case management consulted fordischarge planning. #2. Atypical right humeral position on chest x-ray film: Noted right low ridinghumerus with possible dislocation, will request repeat focal right shoulder films to further investigate as patient does have chronic right sided hemiplegiastatus post CVA. #3. Anxiety and depression/bipolar disorder/chart reported history of violent behavior previously/schizophrenia: Will continue patient home psychiatric regimen including Abilify, buspirone with hold for sedation, vortioxetine, trazodone and low-dose Ativan for agitation which she commonly takes however again hold for sedation. #4. Diabetes mellitus type II with chronic neuropathy: Hold oral home regimen, continue home gabapentin regimen with hold for sedation as needed, maintain on ADA diet as long as clinically remains appropriate for oral intake with ST consultation requested given concerns for previous aspiration history, accu checks w/ ISS. #5. History CVA: Patient with significant right sided deficits/hemiplegia as well as chronic dysarthria, continue aspirin, statin, not on hypertensive regimen, holding oral diabetic regimen with adjustments as noted. PT, OT, ST consulted as well as case management for discharge planning. #6. Tobacco Abuse: Encouraged cessation, inpatient consultation per RT, NR if desired. #7. BPH with obstructive pathology: Per current list does not appear to be on regimen, monitor for retention. #8. Hyperlipidemia: Will continue patient on statin therapy. #9. Obesity: Weight loss and lifestyle changes encouraged. #10. DVT prophylaxis: Lovenox. #11. CODE status: Per facility paperwork will maintain FULL code status. Charges/Coding Visit Charges Inpatient E&M: 89611 Init Hosp L3 01/31/25 2473 <Electronically signed by Rosalva Fowler MD> Cosigner Signature (if applicable): CC: Dr. Rosalva Fowler MD; Dr. Mame Bright MD~ Signed [facility] Work Phone: Hospital Discharge instructions* Attachments The following attachments cannot be sent through Care Everywhere. * Bipolar Disorder ([place]cu[place] Tuvaluan) [facility] Inst[facility] Use your oxygen per nasal cannula when your pulse ox is below 88% on room air. You have DuoNeb aerosolized treatments that you can use every 4 hours as needed. You should use them every 4-6 hours as needed especially over the next 48 hours. You are given a prescription for a steroid burst. Make sure that your blood sugars are monitored as they may increase while using prednisone. Return with new or worsening symptoms.[facility] Work Phone: Reason for referral (narrative)No reason for referral information availableWooRegency Hospital [facility] Work Phone: Summary Purpose Family History No Family History Records FoundNo Family History Records FoundNo Family History Records FoundNo Family History Records FoundNo Family History Records FoundNo Family History Records FoundNo Family History Records Found Advance Directives Documents on File Type Date Recorded Patient Leather Drier Expl anation Advance Directives and Livin g Will 06/20/2020 4:38 PM Latest Code Status on File Code Status Date Activated Date Inactivated Comments Full Code - Unverified 06/20/2020 4:09 PM 06/20/2020 1 0:54 PM Full Code 04/04/2020 3:18 PM 04/04/2020 7:04 PM Full Code - Unverified 01/12/2017 4:33 PM 01/20/2017 1:0 9 PM Documents on File Type Date Recorded Patient Leather Drier Expl anation Advance Directives and Livin g Will 04/04/2020 12:39 PM Latest Code Status on File Code Status Date Activated Date Inactivated Comments Full Code 04/04/2020 3:18 PM 04/04/2020 7:04 PM Documents on File Type Date Recorded Patient Leather Drier Expl anation Advance Directives and Livin g [...] Do you have a Healthcare Power of Technical Analyst? No December 04, 2024 10:34am Advance Directive Response Recorded Date/ Time Do you have a Healthcare Power of Technical Analyst? No December 04, 2024 2:39pm Advance Directive Response Recorded Date/ Time Do you have a Healthcare Power of Technical Analyst? No December 04, 2024 2:39pm Do you have a Healthcare Power of Technical Analyst? Yes January 31, 2025 8:32pm Advance Directive Response Recorded Date/ Time Do you have a Healthcare Power of Technical Analyst? No December 04, 2024 2:39pm Do you have a Healthcare Power of Technical Analyst? Yes February 01, 2025 12:24am Advance Directive Response Recorded Date/ Time Do you have a Healthcare Power of Technical Analyst? Yes January 31, 2025 11:24pm Do you have a Healthcare Power of Technical Analyst? No April 17, 2025 8:28am Discharge Instructions * LalithaFredo, FIXED INCOME TRADING VICE PRESIDENT - 07/03/2018 Formatting of this note may [...] your doctor if you can take an pzjn-wje-amwcohh medicine. Read and follow all instructions on [...] Log into your personal health record on [email or web address] and enter X633 in the Education box to learn more about Kidney Stone: Care Instructions. Current as of: September 08, 2017 Content Version: .[id number] [employer]. Care instructions adapted under license by your healthcare professional. If you have questions about a medical condition or this instruction, always ask your healthcare professional. [employer] disclaims any warranty or liability for your use of this information. in this encounter* Attachments The following attachments cannot be sent through Care Everywhere. * Bipolar Disorder (Tuvaluan) documented in this encounter Assessments Diagnosis Kidney [...] m Sepsis December 04, 2024 1:06p m Chief Complaint Admit Date ACUTE HYPOXIC ANAD HYPERCAPNIC RESPIRATO RY FAILURE December 04, 2024 1:06pm ACUTE HYPOXIC ANAD HYPERCAPNIC RESPIRATO RY FAILURE December 05, 2024 6:52am ACUTE HYPOXIC ANAD HYPERCAPNIC RESPIRATO RY FAILURE December 05, 2024 2:19pm ACUTE HYPOXIC ANAD HYPERCAPNIC RESPIRATO RY FAILURE December 06, 2024 1:33pm Shortness of breath January 31, 2025 10: 31pm ACUTE HYPOXIA, COPD EXAC, ? PNA January 312024 11:03pm Reason for Visit Admit Date Acidosis, lactic December 04, 2024 1:06p m Acute hypoxic respiratory failure December 042024 1:06pm Hypotension December 04, 2024 1:06p m Sepsis December 04, 2024 1:06p m Acidosis, lactic January 31, 2025 11: 03pm Acute bronchospasm January 31, 2025 11: 03pm Acute hypoxemic respiratory failure Augu 2024 11:03pm Hemiplegia affecting dominant side, post -stroke January 31, 2025 11:03pm Type 2 diabetes mellitus January 31 11:03pm Acute exacerbation of chronic obstructiv e pulmonary disease January 31, 2025 11:03pm Chief Complaint Admit Date ACUTE HYPOXIC ANAD HYPERCAPNIC RESPIRATO RY FAILURE December 04, 2024 1:06pm ACUTE HYPOXIC ANAD HYPERCAPNIC RESPIRATO RY FAILURE December 05, 2024 6:52am ACUTE HYPOXIC ANAD HYPERCAPNIC RESPIRATO RY FAILURE December 05, 2024 2:19pm ACUTE HYPOXIC ANAD HYPERCAPNIC RESPIRATO RY FAILURE December 06, 2024 1:33pm Shortness of breath January 31, 2025 10: 31pm ACUTE HYPOXIA, COPD EXAC, ? PNA January 312024 11:03pm ACUTE HYPOXIA, COPD EXAC, ? PNA February 012024 10:18am ACUTE HYPOXIA, COPD EXAC, ? PNA February 022024 7:23am ACUTE HYPOXIA, COPD EXAC, ? PNA February 032024 7:10am Chief Complaint Admit Date Shortness of breath January 31, 2025 10: 31pm ACUTE HYPOXIA, COPD EXAC, ? PNA January 312024 11:03pm AM EKG February 01, 2025 8:1 7am ACUTE HYPOXIA, COPD EXAC, ? PNA February 012024 10:18am ACUTE HYPOXIA, COPD EXAC, ? PNA February 022024 7:23am ACUTE HYPOXIA, COPD EXAC, ? PNA February 032024 7:10am sob April 17, 2025 9 :20am Reason for Visit Admit Date Hemiplegia affecting dominant side, post -stroke January 31, 2025 11:03pm Type 2 diabetes mellitus January 31 11:03pm Acidosis, lactic January 31, 2025 11: 03pm Acute bronchospasm January 31, 2025 11: 03pm Acute exacerbation of chronic obstructiv e pulmonary disease January 31, 2025 11:03pm Acute hypoxemic respiratory failure Augu 2024 11:03pm Additional Source Comments Transfer Center Note - Tiffani Dangelo RN - 05/31/2017 5:31 AM ESTTransfer Center Note - Tiffani Dangelo RN - 05/31/2017 1:04 AM NIKKO Notes - Danica Bassett RN - 07/03/2018 10:40 PM EST Miscellaneous Notes (unrecog nized section and content) Narrative: TC called ECF for update on arrival to [facility]. Nurse explained the patient is refusing to come to the hospital. ECF nurse forgot to call to cancel transfer request to [facility]. Narrative: 47 yo male from [...] deficit. ECF sending patient to [facility] ER for an evaluation. Oxygenation: [...] the patient. I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 2025 Team Status: Inactive Member Role/Relationship Status Dates Dr. Mame Bright MD Primary Care Provider Active Start: January 31, 2025 End: February 03, 2025 Dr. Keith Garcia MD Emergency Provider Active Sta rt: January 31, 2025 End: February 03, 2025 Dr. Rosalva Fowler MD Admit Provider Active St art: January 31, 2025 End: February 03, 2025 Dr. Rsoalva Fowler MD Other Provider Active St art: January 31, 2025 End: February 03, 2025 Dr. Fredo Alberts MD Attending Provider Active Start: January 31, 2025 End: February 03, 2025 Team Status: Active Member Role/Relationship Status Dates Dr. Mame Bright MD Primary Care Provider Active Start: February 01, 2025 Dr. Keith Garcia MD Emergency Provider Active Sta rt: February 01, 2025 Dr. Rosalva Fowler MD Admit Provider Active St art: February 01, 2025 Dr. Rosalva Fowler MD Other Provider Active St art: February 01, 2025 Dr. Fredo Alberts MD Attending Provider Active Start: February 01, 2025 Dr. Fredo Alberts MD Other Provider Active Star t: February 01, 2025 Team Status: Active Member Role/Relationship Status Dates Dr. Mame Bright MD Primary Care Provider Active Start: February 02, 2025 Dr. Keith Garcia MD Emergency Provider Active Sta rt: February 02, 2025 Dr. Rosalva Fowler MD Admit Provider Active St art: February 02, 2025 Dr. Rosalva Fowler MD Other Provider Active St art: February 02, 2025 Dr. Fredo Alberts MD Attending Provider Active Start: February 02, 2025 Dr. Fredo Alberts MD Other Provider Active Star t: February 02, 2025 Team Status: Active Member Role/Relationship Status Dates Dr. Mame Bright MD Primary Care Provider Active Start: February 03, 2025 Dr. Keith Garcia MD Emergency Provider Active Sta rt: February 03, 2025 Dr. Rosalva Fowler MD Admit Provider Active St art: February 03, 2025 Dr. Rosalva Fowler MD Other Provider Active St art: February 03, 2025 Dr. Fredo Alberts MD Attending Provider Active Start: February 03, 2025 Dr. Fredo Alberts MD Other Provider Active Star t: February 03, 2025 Team Status: Active Member Role/Relationship Status Dates Dr. Mame Bright MD Primary care physician Active Team Status: Active Member Role/Relationship Status Dates Dr. Mame Bright MD Primary care physician Active Start: January 31, 2025 Dr. Keith Garcia MD Emergency Department Physician Acti ve Start: January 31, 2025 Dr. Rosalva Fowler MD Attending physician Active Start: January 31, 2025 Team Status: Inactive Member Role/Relationship Status Dates Dr. Mame Bright MD Primary care physician Active Start: January 31, 2025 End: February 03, 2025 Dr. Keith Garcia MD Emergency Department Physician Acti ve Start: January 31, 2025 End: February 03, 2025 Dr. Rosalva Fowler MD Admitting physician Active Start: January 31, 2025 End: February 03, 2025 Dr. Rosalva Fowler MD Nurse Practitioner Active Start: January 31, 2025 End: February 03, 2025 Dr. Fredo Alberts MD Attending physician Active Start: January 31, 2025 End: February 03, 2025 Team Status: Active Member Role/Relationship Status Dates Dr. Mame Bright MD Primary care physician Active Start: February 01, 2025 Dr. Salvador Rodriguez MD Attending physician Active Start: February 01, 2025 Dr. Rosalva Fowler MD Referring Provider Active Start: February 01, 2025 Team Status: Active Member Role/Relationship Status Dates Dr. Mame Bright MD Primary care physician Active Start: February 01, 2025 Dr. Keith Garcia MD Emergency Department Physician Acti ve Start: February 01, 2025 Dr. Rosalva Fowler MD Admitting physician Active Start: February 01, 2025 Dr. Rosalva Fowler MD Nurse Practitioner Active Start: February 01, 2025 Dr. Fredo Alberts MD Attending physician Active Start: February 01, 2025 Dr. Fredo Alberts MD Nurse Practitioner Active Start: February 01, 2025 Team Status: Active Member Role/Relationship Status Dates Dr. Mame Bright MD Primary care physician Active Start: February 02, 2025 Dr. Keith Garcia MD Emergency Department Physician Acti ve Start: February 02, 2025 Dr. Rosalva Fowler MD Admitting physician Active Start: February 02, 2025 Dr. Rosalva Fowler MD Nurse Practitioner Active Start: February 02, 2025 Dr. Fredo Alberts MD Attending physician Active Start: February 02, 2025 Dr. Fredo Alberts MD Nurse Practitioner Active Start: February 02, 2025 Team Status: Active Member Role/Relationship Status Dates Dr. Mame Bright MD Primary care physician Active Start: February 03, 2025 Dr. Keith Garcia MD Emergency Department Physician Acti ve Start: February 03, 2025 Dr. Rosalva Fowler MD Admitting physician Active Start: February 03, 2025 Dr. Rosalva Fowler MD Nurse Practitioner Active Start: February 03, 2025 Dr. Fredo Alberts MD Attending physician Active Start: February 03, 2025 Dr. Fredo Alberts MD Nurse Practitioner Active Start: February 03, 2025 Team Status: Inactive Member Role/Relationship Status Dates Dr. Mame Bright MD Primary care physician Active Start: April 17, 2025 End: April 17, 2025 Ovi Petit MD Attending physician Active Sta rt: April 17, 2025 End: April 17, 2025 Ovi Petit MD Emergency Department Physician Active Start: April 17, 2025 End: April 17, 2025 Ordered Prescriptions (unrec ognized section and content) [...] times a day with meals. 60 each 06/11/2022 09/09/2022 haloperidoL (HALDOL) 0.5 mg tablet [...] BE BASED ON THE PRIMARY CLINICAL RECORDS. [employer] provides no warranty or guarantee of the accuracy or completeness of information in this document.
--- NOTE | 2025-06-15 19:05 | RAD_ITS ---
PROCEDURE: CHEST 1 VIEW (PORTABLE) 06/15/2025 REASON FOR EXAM: SOB AFTER VOMITING TECHNIQUE: Frontal view of the chest. COMPARISON: Chest x-ray 04/17/2025 FINDINGS: Hardware: None. Heart: The heart size is normal. Lungs: The lungs are clear. No pneumothorax or pleural effusion. Bones: The bones are unremarkable. RAD/Chest 1 View (Portable) IMPRESSION: No Acute Findings. Reading [facility]
[2025-06-15 19:12] LABS: Allen Test Positive; Base Excess 7 mmol/L (-2 to +2); FI02 4.0; PO2 58 mmHG (75-100); SITE L Brach; SO2 87 % (94-98)
[2025-06-15 19:30] VITALS: BP 101/67; PULSE 87; RESP 16; TEMP 37; O2SAT 95
[2025-06-15 19:40] LABS: Troponin T High Sensitivity 16 ng/L (<=22)
[2025-06-15 19:43] LABS: Anion Gap 10 (5-15); BUN 13 mg/dL (4-19); BUN/Creat Ratio 11.6 RATIO (10-20); Calcium,Total 9.5 mg/dL (7.6-11.0); Carbon Dioxide 29.8 mmol/L (21.0-32.0); Chloride 101 mmol/L (98-108); Estimated Creatinine Clearance 85.68 ml/min (50-250); Glucose 98 mg/dL (70-99); Potassium 4.2 mmol/L (3.3-5.1)
[2025-06-15 20:48] VITALS: BP 100/73; PULSE 86; RESP 21; TEMP 37.2; O2SAT 93
--- OUTSIDE RECORDS SUMMARY | 2025-06-15 20:52 | XMS RPT_ITS | CCD ---
Author Organization [facility] Team Providers Care Racecourse Barrier Attendant Name Role Phone Unavailable Unavailable Unavailable BENNY [...] Care Unavailable MARY JAMES Admitting Unavailable PHYSICIANS, [facility] Consulting Unav ailable TATUM MONET Consulting Unavail able DYLAN ROBLES Consulting Unavailable [employer] SENIOR DEVELOPER, GENERIC Consultin g Unavailable NO, PHYSICIAN Primary Care Unavailable DAVID JI Attending Unavailable LUZ CORRALES Primary Care Unavailable ALAINA BAEZ Attending Unavailable LUZ CORRALES Primary Care Unavailable JAYNE RUSSO Admitting Unavailable RUPAL WILSON Attending Unavailable WARD MOOK, YAQUELIN Consulting Unavailable ED ELKINS YAQUELIN Consulting Unavailable ED ELKINS, YAQUELIN Consulting Unavailable Lashonda CANO, Luz Primary Care Provider Kaila CANO, Dr. Galvin Primary Care Provider [...] Provider Xin CANO, Dr. Ponce Other Provider [phone] Audie CANO, Dr. Ceron Other Provider Leola [...] Provider Nikhil CANO, Dr. Vinson Other Provider [phone] Jatinder CANO, Dr. Donovan Other Provider Bridgette CANO, Dr. Michelle Rios Other Provider Mariano NICOLE, Dr. Mckoy Attending Provider Bridgette CANO, Dr. Michelle Rios Referring Provider Jose CANO, Dr. Parker Emergency Provider Janeth CANO, Dr. Rosalva Oakes Attending Provider Janeth CANO, Dr. Rosalva Oakes Admit Provider Janeth CANO, Dr. Rosalva Oakes Other Provider [phone] Lexus CANO, Dr. Yoo Attending Provider Unavaila surekha Alberts MD, Dr. Yoo Other Provider Unavailable Koram, Michelle Blanca Attending Unavailable Mame Bright Primary Care Unavailable Maricruz Villareal Admitting Unavailable Maricruz Villareal Referring Unavailable Maricruz Villareal Consulting Unavailable Koram, Michelle Blanca Consulting Unavailable Koram, Michelle Blanca Attending Unavailable Koram, Michelle Blanca Admitting Unavailable Mame Bright Primary Care Unavailable [...] Fowler Consulting Unavailable Rosalva Fowler Admitting Unavailable Mame Bright Primary Care Unavailable Mame Bright Primary [...] Practitioner Parisa Petit MD, Ovi Attending Physician Ovi Petit MD Emergency Department Physician Allergies Allergy Classification Reported Allergen(s) Allergy Type Date of Onset Reaction(s) Facility NSAIDs (1 source) Ibuprofen Drug Allergy 5 Unknown, Other (See Comments) [facility] Penicillins (antibiotic) (1 source) Penicillins Drug Allergy 9 [facility] (15 sources) ibuprofen; Translations: [IBUPROFEN] Propensity to adverse reactions to drug 5 Unknown, Other (See Comments), Other [facility] Work Phone: (12 sources) Penicillins; Translations: [PENICILLINS] Propensity to adverse reactions to drug 9 Other (See Comments), Other [facility] (1 source) Ibuprofen Drug Allergy 5 [facility] Repository Medications Current Medications Medication Drug Class(es) [...] PRN, wheezing, shortness of breath, Starting on [facility] 12/12/20 at 0333 SPACER REQUIRED FOR ADMINISTRATION [...] tablet (9 sources) Start: 07-31-2024 Calcium Carbonate (Leslye-[place] Heartburn Chew) 300 mg (750 mg) tablet,chewable Active 600 mg PO EVERY 6 HOURS as needed for heartburn July 31, 2024 12:00am Complies with drug therapy Start: 07-31-2024 Calcium Carbon ate (Leslye-[place] Heartburn Chew) 300 mg (750 mg) tablet,chewable [...] Active docusate sodium 50 mg / sennosides, detention 8.6 mg oral tablet (13 sources) Start: [...] given via tube. take 1 tablet by [facility] twice daily senna-docusate (sennosides-docusate sodium) 8.6-50 mg [...] Discontinued (Error) take 2 tablets by mo [facility] twice daily at mealtime metFORMIN (GLUCOPHAGE) [...] as needed hydrOXYzine (ATARAX) tablet 50 mg [place] (2 sources) Start: 06-09-2022 End: 06-10-2022 take [...] (Stop Taking at Discharge) polyethylene glycol 3350 59657 mg powder for oral solution (5 sources) [...] (2 sources) Patient care statuses; Translations: [Health half-way, active care coordination] Onset: 12-04-2013 06-20-2020 Unclassified [...] Lead EKGon 04-17-2025 12 Lead EKG Normal [facility] Absolute lymphocyte countOrd ered By: Ovi Petit on 04-17-2025 Lymphocytes Auto (Unsp spec) [#/Vol] 1.42 10*3/uL 0.83-4.51 [facility] Absolute neutrophil countOrd ered By: Ovi Gaytanjerry on 04-17-2025 Neutrophils (Bld) [#/Vol] 3.7 10*3/uL 2.0-7.7 [facility] Anion gap in Serum or Plasma Ordered By: Ovi Petit on 04-17-2025 Anion gap [Moles/Vol] 11 mmol/L 11-09 [facility] Automated lymphocyte count a s percentage of total leukocytesOrdered By: Ovi Petit on 04-17-2025 Lymphocytes/100 WBC Auto (Unsp spec) 23.6 % [facility] BUN/creatinine ratioOrdered By: Ovi Petit on 04-17-2025 Urea nitrogen/Creatinine [Mass ratio] 13.6 mg/mg 04-16 [facility] Basic Metabolic Profile (BMP )on 04-17-2025 BUN/CRE 13.6 RATIO Normal 04-16 [facility] Comment on above: Performed By: #### L 500.2500, L503.7505, L100.0100 ####[facility] [address] [place], [address] Calcium [Mass/Vol] 9.9 mg/dL Normal 7.6-11.0 [facility] Comment on above: Performed By: #### L 500.2500, L503.7505, L100.0100 ####[facility] [address] [place], [address] Chloride [Moles/Vol] 101 mmol/L Normal 98-108 [facility] Comment on above: Performed By: #### L 500.2500, L503.7505, L100.0100 ####[facility] [address] [place], [address] CO2 [Moles/Vol] 29.9 mmol/L Normal 21.0-32.0 [facility] Comment on above: Performed By: #### L 500.2500, L503.7505, L100.0100 ####[facility] [address] [place], [address] Creatinine [Mass/Vol] 1.09 mg/dL Normal 0.70-1.20 [facility] Comment on above: Performed By: #### L 500.2500, L503.7505, L100.0100 ####[facility] [address] [place], [address] ECRCL 88.75 ml/min Normal 50-250 [facility] Comment on above: Performed By: #### L 500.2500, L503.7505, L100.0100 ####[facility] [address] [place], [address] GAP 11 Normal 5-15 [facility] Comment on above: Performed By: #### L 500.2500, L503.7505, L100.0100 ####[facility] [address] [place], [address] GFR/1.73 sq M.predicted among non-blacks MDRD (S/P/Bld) [Vol rate/Area] 80 mL/min/{1.73_m2} Normal >60 [facility] Comment on above: Result Comment: mL/m in/1.73m2 CKD-EPI Creatinine Equation (2020) Performed By: #### L 500.2500, L503.7505, L100.0100 ####[facility] [address] [place], [address] Glucose [Mass/Vol] 101 mg/dL High 70-99 [facility] Comment on above: Performed By: #### L 500.2500, L503.7505, L100.0100 ####[facility] [address] [place], [address] Potassium [Moles/Vol] 4.2 mmol/L Normal 3.3-5.1 [facility] Comment on above: Performed By: #### L 500.2500, L503.7505, L100.0100 ####[facility] [address] [place], [address] Sodium [Moles/Vol] 142 mmol/L Normal 133-145 [facility] Comment on above: Performed By: #### L 500.2500, L503.7505, L100.0100 ####[facility] [address] [place], [address] Urea nitrogen [Mass/Vol] 15 mg/dL Normal 4-19 [facility] Comment on above: Performed By: #### L 500.2500, L503.7505, L100.0100 ####[facility] [address] [place], [address] Basophil percentageOrdered B y: Ovi Petit on 04-17-2025 Basophils/100 WBC (Bld) 0.8 % 0-1 [facility] CBC W/Diff, Automatedon 03-29 Absolute Lymph 1.42 X10 3/uL Normal 0.83-4.51 [facility] Comment on above: Performed By: #### L 500.2500, L503.7505, L100.0100 ####[facility] [address] [place], [address] Absolute Neut 3.7 X10 3/uL Normal 2.0-7.7 [facility] Comment on above: Performed By: #### L 500.2500, L503.7505, L100.0100 ####[facility] [address] [place], [address] Basophils/100 WBC (Bld) 0.8 % Normal 0-1 [facility] Comment on above: Performed By: #### L 500.2500, L503.7505, L100.0100 ####[facility] [address] [place], [address] Eosinophils/100 WBC (Bld) 3.8 % Normal 0-5 [facility] Comment on above: Performed By: #### L 500.2500, L503.7505, L100.0100 ####[facility] [address] [place], [address] Erythrocyte distribution width (RBC) [Ratio] 15.6 % High 11.6-14.6 [facility] Comment on above: Performed By: #### L 500.2500, L503.7505, L100.0100 ####[facility] [address] [place], [address] Hematocrit (Bld) [Volume fraction] 41.1 % Normal 40-54 [facility] Comment on above: Performed By: #### L 500.2500, L503.7505, L100.0100 ####[facility] [address] [place], [address] Hemoglobin (Bld) [Mass/Vol] 12.5 g/dL Low 13.0-16.5 [facility] Comment on above: Performed By: #### L 500.2500, L503.7505, L100.0100 ####[facility] [address] [place], [address] IG% 0.300 Normal 0.0-0.9 [facility] Comment on above: Result Comment: IG% - Immature Granulocytes (promyelocytes, myelocytes andmetamyelocytes) > 1% indicates that a LEFT SHIFT is Present. Performed By: #### L 500.2500, L503.7505, L100.0100 ####[facility] [address] [place], [address] Lymphocytes/100 WBC (Bld) 23.6 % Normal 19-41 [facility] Comment on above: Performed By: #### L 500.2500, L503.7505, L100.0100 ####[facility] [address] [place], [address] MCH (RBC) [Entitic mass] 26.2 pg Low 27.0-32.0 [facility] Comment on above: Performed By: #### L 500.2500, L503.7505, L100.0100 ####[facility] [address] [place], [address] MCHC (RBC) [Mass/Vol] 30.4 g/dL Low 32-36 [facility] Comment on above: Performed By: #### L 500.2500, L503.7505, L100.0100 ####[facility] [address] [place], [address] MCV (RBC) [Entitic vol] 86.0 fL Normal 80-94 [facility] Comment on above: Performed By: #### L 500.2500, L503.7505, L100.0100 ####[facility] [address] [place], [address] Monocytes/100 WBC (Bld) 9.5 % Normal 0-10 [facility] Comment on above: Performed By: #### L 500.2500, L503.7505, L100.0100 ####[facility] [address] [place], [address] Neutrophils/100 WBC (Bld) 62.0 % Normal 47-70 [facility] Comment on above: Performed By: #### L 500.2500, L503.7505, L100.0100 ####[facility] [address] [place], [address] Nucleated RBC (Bld) [#/Vol] 0 10*3/uL Normal 0-5 [facility] Comment on above: Performed By: #### L 500.2500, L503.7505, L100.0100 ####[facility] [address] [place], [address] Platelet mean volume (Bld) [Entitic vol] 9.3 fL Normal 6.2-12.0 [facility] Comment on above: Performed By: #### L 500.2500, L503.7505, L100.0100 ####[facility] [address] [place], [address] Platelets (Bld) [#/Vol] 243 10*3/uL Normal 150-450 [facility] Comment on above: Performed By: #### L 500.2500, L503.7505, L100.0100 ####[facility] [address] [place], [address] RBC (Bld) [#/Vol] 4.78 10*6/uL Normal 4.6-6.2 [facility] Comment on above: Performed By: #### L 500.2500, L503.7505, L100.0100 ####[facility] [address] [place], [address] RDW SD 48.9 fl High 35.1-43.9 [facility] Comment on above: Performed By: #### L 500.2500, L503.7505, L100.0100 ####[facility] [address] [place], [address] WBC (Bld) [#/Vol] 6.0 10*3/uL Normal 4.4-11.0 [facility] Comment on above: Performed By: #### L 500.2500, L503.7505, L100.0100 ####[facility] [address] [place], [address] CO2 (BldV) [Moles/Vol]Ordere d By: Ovi Petit on 04-17-2025 CO2 [Moles/Vol] 39 mmol/L High 23-33 [facility] CTA Chest W/WO Contraston CTA Chest W/WO Contrast Normal [facility] Carbon dioxide, total [Moles /volume] in Central venous bloodOrdered By: Ovi Petit on 04-17-2025 CO2 [Moles/Vol] 29.9 mmol/L 21.0-32.0 [facility] Chest 1 View (Portable)on Chest 1 View (Portable) Normal [facility] Chloride assayOrdered By: Salomón Petit on 04-17-2025 Chloride [Moles/Vol] 101 mmol/L 98-108 [facility] Electrocardiogram reportOrde red By: German Reyna on 04-17-2025 EKG study [facility] [address] [place] [address] 12 Lead EKG 04/17/25 0948 MR#: [id number] Acct: [id number] Name: RIOG GARCIA Rep #:[id number] : 1970 55 From: German ayers MD [...] rhythm Normal ECG Confirmed by German Reyna ([id number]), publication editor NGUYEN HOUSER ([id number]) on 51:41:46 PM Referred By: Confirmed By: German Reyna 04/18/25 1341 Date _ German Reyna MD CC: Dr. Ovi Petit MD; Dr. Mame Bright MD ~ Signed [facility] Other Emergency Department Summary on 04-17-2025 Emergency Department Summary Normal [facility] Eosinophil percentageOrdered By: Ovi Petit on 04-17-2025 Eosinophils/100 WBC (Bld) 3.8 % 0-5 [facility] Erythrocyte distribution wid th ratioOrdered By: Ovi Petit on 04-17-2025 Erythrocyte distribution width (RBC) [Ratio] 15.6 % High 11.6-14.6 [facility] Erythrocyte distribution wid th standard deviationOrdered By: Ovi Petit on 04-17-2025 Erythrocyte distribution width (RBC) [Ratio] 48.9 fl High 35.1-43.9 [facility] Glomerular filtration rate ( GFR) estimation/1.73 sq m using serum, plasma, or whole bOrdered By: Ovi Petit on 04-17-2025 GFR/1.73 sq M.predicted among non-blacks MDRD (S/P/Bld) [Vol rate/Area] 80 mL/min/{1.73_m2} >60 [facility] Comment on above: mL/min/1.73m2 CKD-EP I Creatinine Equation (2020) Hematocrit Auto (Bld) [Volum e fraction]Ordered By: Ovi Petit on 04-17-2025 Hematocrit (Bld) [Volume fraction] 41.1 % 40-54 [facility] Hemoglobin measurementOrdere d By: Ovi Petit on 04-17-2025 Hemoglobin (Bld) [Mass/Vol] 12.5 g/dL Low 13.0-16.5 [facility] Immature granulocytes/100 WB C Auto (Bld)Ordered By: Ovi Petit on 04-17-2025 Immature granulocytes/100 WBC (Bld) 0.300 % 0.0-0.9 [facility] Comment on above: IG% - Immature Granu locytes (promyelocytes, myelocytes and metamyelocytes) > 1% indicates that a LEFT SHIFT is Present. Influenza virus A and B and SARS-CoV-2 (COVID-19) and Respiratory syncytial virus RNAOrdered By: Ovi Petit on 04-17-2025 SARS-CoV-2 (COVID-19) RNA DALIA+probe Ql (Unsp spec) [facility] M100.678on 04-17-2025 M100.678 Pending SARS-CoV-2 (COVID 19) Negative INFLUENZA A Negative INFLUENZA B Negative RSV PCR Negative Normal [facility] Comment on above: Performed By: #### M 100.678 ####[facility] [address] [place], [address] MCV (mean corpuscular volume ) determinationOrdered By: Ovi Petit on 04-17-2025 MCV (RBC) [Entitic vol] 86.0 fL 80-94 [facility] Mean corpuscular hemoglobin (MCH) determinationOrdered By: Ovi Petit on 04-17-2025 MCH (RBC) [Entitic mass] 26.2 pg Low 27.0-32.0 [facility] Mean corpuscular hemoglobin concentration (MCHC) determinationOrdered By: Ovi Petit on 04-17-2025 MCHC (RBC) [Mass/Vol] 30.4 g/dL Low 32-36 [facility] Mean platelet volume determi nationOrdered By: Ovi Petit on 04-17-2025 Platelet mean volume (Bld) [Entitic vol] 9.3 fL 6.2-12.0 [facility] Monocyte percentageOrdered B y: Ovi Petit on 04-17-2025 Monocytes/100 WBC (Bld) 9.5 % 0-10 [facility] Natriuretic peptide.B prohor fredis N-Terminal [Mass/volume] in Serum or PlasmaOrdered By: Ovi Petit on 04-17-2025 Natriuretic peptide.B prohormone N-Terminal [Mass/Vol] < 36 pg/mL <900 [facility] Comment on above: Heart Failure Unlike ly: < 300 pg/mLHeart Failure Likely< 50 Years: > 450 pg/mL50-75 Years: > 900 pg/mL>75 Years: > 1800 pg/mL Neutrophil percentageOrdered By: Ovi Petit on 04-17-2025 Neutrophils/100 WBC (Bld) 62.0 % 47-70 [facility] No Panel InformationOrdered By: Ovi Petit on 04-17-2025 Blood Gas Sample Site Not entered [facility] Blood Gas Specimen Type MARTI [facility] Oxygen Delivery Device Cannula [facility] Nucleated red blood cell per centageOrdered By: Ovi Petit on 04-17-2025 Nucleated RBC/100 WBC (Bld) [Ratio] 0 % 0-5 [facility] Platelet countOrdered By: Salomón Petit on 04-17-2025 Platelets (Bld) [#/Vol] 243 10*3/uL 150-450 [facility] Potassium measurement (mass/ volume)Ordered By: Ovi Petit on 04-17-2025 Potassium (Unsp spec) [Mass/Vol] 4.2 mmol/L 3.3-5.1 [facility] Pro- Brain NATRIURETIC PEPTI Balta 04-17-2025 proBNP < 36 Normal <=900 [facility] Comment on above: Result Comment: Hear t Failure Unlikely: < 300 pg/mLHeart Failure Likely< 50 Years: > 450 pg/mL50-75 Years: > 900 pg/mL>75 Years: > 1800 pg/mL Performed By: #### L 500.2500, L503.7505, L100.0100 ####[facility] [address] [place], [address] RBC Auto (Bld) [#/Vol]Ordere d By: Ovi Petit on 04-17-2025 RBC (Bld) [#/Vol] 4.78 10*6/uL 4.6-6.2 [facility] Serum creatinine measurement (mass/volume)Ordered By: Ovi Petit on 04-17-2025 Creatinine [Mass/Vol] 1.09 mg/dL 0.70-1.20 [facility] Serum glucose measurement (m ass/volume)Ordered By: Ovi Petit on 04-17-2025 Glucose [Mass/Vol] 101 mg/dL High 70-99 [facility] Serum or plasma calcium michael urement (mass/volume)Ordered By: Ovi Petit on 04-17-2025 Calcium [Mass/Vol] 9.9 mg/dL 7.6-11.0 [facility] Serum or plasma urea nitroge n measurement (mass/volume)Ordered By: Ovi Petit on 04-17-2025 Urea nitrogen [Mass/Vol] 15 mg/dL 4-19 [facility] Sodium levelOrdered By: Ovi Petit on 04-17-2025 Sodium [Moles/Vol] 142 mmol/L 133-145 [facility] Venous Blood Gason Blood Gas Type MARTI Normal [facility] Comment on above: Performed By: #### L 9000.0810 ####[facility] [address] [place], [address] CO2 [Moles/Vol] 39 mmol/L High 23-33 [facility] Comment on above: Performed By: #### L 9000.0810 ####[facility] [address] [place], [address] FI02 3.0 [facility] Comment on above: Performed By: #### L 9000.0810 ####[facility] [address] [place], [address] HCO3 (Bld) [Moles/Vol] 37 mmol/L High 22-26 [facility] Comment on above: Performed By: #### L 9000.0810 ####[facility] [address] [place], [address] O2 Delivery Dev Cannula Normal [facility] Comment on above: Performed By: #### L 9000.0810 ####[facility] [address] [place], [address] SITE Not entered [facility] Comment on above: Performed By: #### L 9000.0810 ####[facility] [address] [place], [address] VBG BE 13 mmol/L High -1.0-3.5 [facility] Comment on above: Performed By: #### L 9000.0810 ####[facility] [address] [place], [address] VBG pCO2 54.7 mmHg High 41-51 [facility] Comment on above: Performed By: #### L 9000.0810 ####[facility] [address] [place], [address] VBG pH 7.44 High 7.32-7.42 [facility] Comment on above: Performed By: #### L 9000.0810 ####[facility] [address] [place], [place], [address] VBG PO2 59 mmHg High 25-40 [facility] Comment on above: Performed By: #### L 9000.0810 ####[facility] [address] [place], [place], [address] VBG SO2 90 High 50-70 [facility] Comment on above: Performed By: #### L 9000.0810 ####[facility] [address] [place], [place], [address] Venous blood base excess felisha surementOrdered By: Ovi Petit on 04-17-2025 Base excess Calc (BldV) [Moles/Vol] 13 mmol/L High -1.0-3.5 [facility] Venous blood bicarbonate felisha surementOrdered By: Ovi Petit on 04-17-2025 HCO3 (Bld) [Moles/Vol] 37 mmol/L High 22-26 [facility] Venous blood oxygen saturati on measurementOrdered By: Ovi Petit on 04-17-2025 Oxygen saturation in Blood 90 % High 50-70 [facility] Venous blood pH measurementO rdered By: Ovi Petit on 04-17-2025 pH (BldV) 7.44 [pH] High 7.32-7.42 [facility] Venous blood partial pressur e of carbon dioxide measurementOrdered By: Ovi Petit on 04-17-2025 CO2 (BldV) [Partial pressure] 54.7 mm[Hg] High 41-51 [facility] Venous blood partial pressur e of oxygen measurementOrdered By: Ovi Petit on 04-17-2025 Oxygen (BldV) [Partial pressure] 59 mm[Hg] High 25-40 [facility] White blood cell (WBC) count Ordered By: Ovi Petit on 04-17-2025 WBC (Bld) [#/Vol] 6.0 10*3/uL 4.4-11.0 [facility] Culture, Blood (WB)on 2024 CUB Blood cultures x2, from two different sites No growth in 5 days. Normal [facility] Comment on above: Performed By: #### L 503.6005, M200.1000, L300.4310, L300.3900, L500.4050, L100.0100 ####[facility] [address] [place], [address] Basic Metabolic Profile (BMP )on 02-04-2025 BUN Normal 4-19 [facility] Comment on above: Result Comment: Canc elled via OM: Order cancelled - Patient discharged Performed By: #### L 100.0100, L500.2500 ####[facility] [address] [place], [address] BUN/CRE Normal 10-20 [facility] Comment on above: Result Comment: Canc elled via OM: Order cancelled - Patient discharged Performed By: #### L 100.0100, L500.2500 ####[facility] [address] [place], [address] Calcium Normal 7.6-11.0 [facility] Comment on above: Result Comment: Canc elled via OM: Order cancelled - Patient discharged Performed By: #### L 100.0100, L500.2500 ####[facility] [address] [place], [address] CL Normal 98-108 [facility] Comment on above: Result Comment: Canc elled via OM: Order cancelled - Patient discharged Performed By: #### L 100.0100, L500.2500 ####[facility] [address] [place], [address] CO2 Normal 21.0-32.0 [facility] Comment on above: Result Comment: Canc elled via OM: Order cancelled - Patient discharged Performed By: #### L 100.0100, L500.2500 ####[facility] [address] [place], [address] CREAT,SERUM Normal 0.70-1.20 [facility] Comment on above: Result Comment: Canc elled via OM: Order cancelled - Patient discharged Performed By: #### L 100.0100, L500.2500 ####[facility] [address] [place], [address] eGFR Normal >60 [facility] Comment on above: Result Comment: Canc elled via OM: Order cancelled - Patient discharged Performed By: #### L 100.0100, L500.2500 ####[facility] [address] [place], [address] GAP Normal 5-15 [facility] Comment on above: Result Comment: Canc elled via OM: Order cancelled - Patient discharged Performed By: #### L 100.0100, L500.2500 ####[facility] [address] [place], [address] GLU Normal 70-99 [facility] Comment on above: Result Comment: Canc elled via OM: Order cancelled - Patient discharged Performed By: #### L 100.0100, L500.2500 ####[facility] [address] [place], [address] Potassium Normal 3.3-5.1 [facility] Comment on above: Result Comment: Canc elled via OM: Order cancelled - Patient discharged Performed By: #### L 100.0100, L500.2500 ####[facility] [address] [place], [address] Basic Metabolic Profile (BMP) Normal 133-145 [facility] Comment on above: Result Comment: Canc elled via OM: Order cancelled - Patient discharged Performed By: #### L 100.0100, L500.2500 ####[facility] [address] [place], [address] CBC W/Diff, Automatedon 08-1 0-2024 Absolute Neut Normal 2.0-7.7 [facility] Comment on above: Result Comment: Canc elled via OM: Order cancelled - Patient discharged Performed By: #### L 100.0100, L500.2500 ####[facility] [address] [place], [address] HCT Normal 40-54 [facility] Comment on above: Result Comment: Canc elled via OM: Order cancelled - Patient discharged Performed By: #### L 100.0100, L500.2500 ####[facility] [address] [place], [address] HGB Normal 13.0-16.5 [facility] Comment on above: Result Comment: Canc elled via OM: Order cancelled - Patient discharged Performed By: #### L 100.0100, L500.2500 ####[facility] [address] [place], [address] MCH Normal 27.0-32.0 [facility] Comment on above: Result Comment: Canc elled via OM: Order cancelled - Patient discharged Performed By: #### L 100.0100, L500.2500 ####[facility] [address] [place], [address] MCHC Normal 32-36 [facility] Comment on above: Result Comment: Canc elled via OM: Order cancelled - Patient discharged Performed By: #### L 100.0100, L500.2500 ####[facility] [address] [place], [address] MCV Normal 80-94 [facility] Comment on above: Result Comment: Canc elled via OM: Order cancelled - Patient discharged Performed By: #### L 100.0100, L500.2500 ####[facility] [address] [place], [address] NEUT% Normal 47-70 [facility] Comment on above: Result Comment: Canc elled via OM: Order cancelled - Patient discharged Performed By: #### L 100.0100, L500.2500 ####[facility] [address] [place], [address] PLT Normal 150-450 [facility] Comment on above: Result Comment: Canc elled via OM: Order cancelled - Patient discharged Performed By: #### L 100.0100, L500.2500 ####[facility] [address] [place], [address] RBC Normal 4.6-6.2 [facility] Comment on above: Result Comment: Canc elled via OM: Order cancelled - Patient discharged Performed By: #### L 100.0100, L500.2500 ####[facility] [address] [place], [address] RDW CV Normal 11.6-14.6 [facility] Comment on above: Result Comment: Canc elled via OM: Order cancelled - Patient discharged Performed By: #### L 100.0100, L500.2500 ####[facility] [address] [place], [address] RDW SD Normal 35.1-43.9 [facility] Comment on above: Result Comment: Canc elled via OM: Order cancelled - Patient discharged Performed By: #### L 100.0100, L500.2500 ####[facility] [address] [place], [address] WBC Normal 4.4-11.0 [facility] Comment on above: Result Comment: Canc elled via OM: Order cancelled - Patient discharged Performed By: #### L 100.0100, L500.2500 ####[facility] [address] [place], [address] Absolute lymphocyte countOrd ered By: Fredo Alberts on 02-03-2025 Lymphocytes Auto (Unsp spec) [#/Vol] 0.95 10*3/uL 0.83-4.51 [facility] Absolute neutrophil countOrd ered By: Fredo Alberts on 02-03-2025 Neutrophils (Bld) [#/Vol] 10.2 10*3/uL High 2.0-7.7 [facility] Anion gap in Serum or Plasma Ordered By: Fredo Alberts on 02-03-2025 Anion gap [Moles/Vol] 12 mmol/L 5-15 [facility] Automated lymphocyte count a s percentage of total leukocytesOrdered By: Fredo Alberts on 02-03-2025 Lymphocytes/100 WBC Auto (Unsp spec) 7.9 % Low 19-41 [facility] BUN/creatinine ratioOrdered By: Fredo Alberts on 02-03-2025 Urea nitrogen/Creatinine [Mass ratio] 19.3 mg/mg 10- [facility] Basic Metabolic Profile (BMP )on 02-03-2025 BUN/CRE 19.3 RATIO Normal 10-20 [facility] Comment on above: Performed By: #### L 100.0100, L500.2500 ####[facility] [address] [place], [address] Calcium [Mass/Vol] 9.3 mg/dL Normal 7.6-11.0 [facility] Comment on above: Performed By: #### L 100.0100, L500.2500 ####[facility] [address] [place], [address] Chloride [Moles/Vol] 97 mmol/L Low 98-108 [facility] Comment on above: Performed By: #### L 100.0100, L500.2500 ####[facility] [address] [place], [address] CO2 [Moles/Vol] 27.1 mmol/L Normal 21.0-32.0 [facility] Comment on above: Performed By: #### L 100.0100, L500.2500 ####[facility] [address] [place], [address] Creatinine [Mass/Vol] 1.09 mg/dL Normal 0.70-1.20 [facility] Comment on above: Performed By: #### L 100.0100, L500.2500 ####[facility] [address] [place], [address] ECRCL 88.53 ml/min Normal 50-250 [facility] Comment on above: Performed By: #### L 100.0100, L500.2500 ####[facility] [address] [place], [address] GAP 12 Normal 5-15 [facility] Comment on above: Performed By: #### L 100.0100, L500.2500 ####[facility] [address] [place], [address] GFR/1.73 sq M.predicted among non-blacks MDRD (S/P/Bld) [Vol rate/Area] 80 mL/min/{1.73_m2} Normal >60 [facility] Comment on above: Result Comment: mL/m in/1.73m2 CKD-EPI Creatinine Equation (2020) Performed By: #### L 100.0100, L500.2500 ####[facility] [address] [place], [address] Glucose [Mass/Vol] 337 mg/dL High 70-99 [facility] Comment on above: Performed By: #### L 100.0100, L500.2500 ####[facility] [address] [place], [address] Potassium [Moles/Vol] 4.2 mmol/L Normal 3.3-5.1 [facility] Comment on above: Performed By: #### L 100.0100, L500.2500 ####[facility] [address] [place], [address] Sodium [Moles/Vol] 136 mmol/L Normal 133-145 [facility] Comment on above: Performed By: #### L 100.0100, L500.2500 ####[facility] [address] [place], [address] Urea nitrogen [Mass/Vol] 21 mg/dL High 4-19 [facility] Comment on above: Performed By: #### L 100.0100, L500.2500 ####[facility] [address] [place], [address] Basophil percentageOrdered B y: Fredo Alberts on 02-03-2025 Basophils/100 WBC (Bld) 0.1 % 0-1 [facility] Bedside Glucoseon 02-03-2025 FINGERSTICK GLU 101 mg/dL Normal 74-106 [facility] Comment on above: Result Comment: JEFFREY GEMENT OF PATIENT CARE PER NURSING PROTOCOL Performed By: #### L 501.080 ####[facility] [address] [place], [address] FINGERSTICK GLU 336 mg/dL High 74-106 [facility] Comment on above: Result Comment: JEFFREY GEMENT OF PATIENT CARE PER NURSING PROTOCOL Performed By: #### L 501.080 ####[facility] [address] [place], [address] FINGERSTICK GLU 389 mg/dL High 74-106 [facility] Comment on above: Result Comment: JEFFREY GEMENT OF PATIENT CARE PER NURSING PROTOCOL Performed By: #### L 501.080 ####[facility] [address] [place], [address] CBC W/Diff, Automatedon 08-0 Absolute Lymph 0.95 X10 3/uL Normal 0.83-4.51 [facility] Comment on above: Performed By: #### L 100.0100, L500.2500 ####[facility] [address] [place], [address] Absolute Neut 10.2 X10 3/uL High 2.0-7.7 [facility] Comment on above: Performed By: #### L 100.0100, L500.2500 ####[facility] [address] [place], [address] Basophils/100 WBC (Bld) 0.1 % Normal 0-1 [facility] Comment on above: Performed By: #### L 100.0100, L500.2500 ####[facility] [address] [place], [address] Eosinophils/100 WBC (Bld) 0.0 % Normal 0-5 [facility] Comment on above: Performed By: #### L 100.0100, L500.2500 ####[facility] [address] [place], [address] Erythrocyte distribution width (RBC) [Ratio] 15.2 % High 11.6-14.6 [facility] Comment on above: Performed By: #### L 100.0100, L500.2500 ####[facility] [address] [place], [address] Hematocrit (Bld) [Volume fraction] 40.1 % Normal 40-54 [facility] Comment on above: Performed By: #### L 100.0100, L500.2500 ####[facility] [address] [place], [address] Hemoglobin (Bld) [Mass/Vol] 12.3 g/dL Low 13.0-16.5 [facility] Comment on above: Performed By: #### L 100.0100, L500.2500 ####[facility] [address] [place], [address] IG% 0.400 Normal 0.0-0.9 [facility] Comment on above: Result Comment: IG% - Immature Granulocytes (promyelocytes, myelocytes andmetamyelocytes) > 1% indicates that a LEFT SHIFT is Present. Performed By: #### L 100.0100, L500.2500 ####[facility] [address] [place], [address] Lymphocytes/100 WBC (Bld) 7.9 % Low 19-41 [facility] Comment on above: Performed By: #### L 100.0100, L500.2500 ####[facility] [address] [place], [address] MCH (RBC) [Entitic mass] 26.2 pg Low 27.0-32.0 [facility] Comment on above: Performed By: #### L 100.0100, L500.2500 ####[facility] [address] [place], [address] MCHC (RBC) [Mass/Vol] 30.7 g/dL Low 32-36 [facility] Comment on above: Performed By: #### L 100.0100, L500.2500 ####[facility] [address] [place], [address] MCV (RBC) [Entitic vol] 85.5 fL Normal 80-94 [facility] Comment on above: Performed By: #### L 100.0100, L500.2500 ####[facility] [address] [place], [address] Monocytes/100 WBC (Bld) 6.6 % Normal 0-10 [facility] Comment on above: Performed By: #### L 100.0100, L500.2500 ####[facility] [address] [place], [address] Neutrophils/100 WBC (Bld) 85.0 % High 47-70 [facility] Comment on above: Performed By: #### L 100.0100, L500.2500 ####[facility] [address] [place], [address] Nucleated RBC (Bld) [#/Vol] 0 10*3/uL Normal 0-5 [facility] Comment on above: Performed By: #### L 100.0100, L500.2500 ####[facility] [address] [place], [address] Platelet mean volume (Bld) [Entitic vol] 10.5 fL Normal 6.2-12.0 [facility] Comment on above: Performed By: #### L 100.0100, L500.2500 ####[facility] [address] [place], [address] Platelets (Bld) [#/Vol] 237 10*3/uL Normal 150-450 [facility] Comment on above: Performed By: #### L 100.0100, L500.2500 ####[facility] [address] [place], [address] RBC (Bld) [#/Vol] 4.69 10*6/uL Normal 4.6-6.2 [facility] Comment on above: Performed By: #### L 100.0100, L500.2500 ####[facility] [address] [place], [address] RDW SD 47.6 fl High 35.1-43.9 [facility] Comment on above: Performed By: #### L 100.0100, L500.2500 ####[facility] [address] [place], [address] WBC (Bld) [#/Vol] 12.0 10*3/uL High 4.4-11.0 [facility] Comment on above: Performed By: #### L 100.0100, L500.2500 ####[facility] [address] [place], [address] Carbon dioxide, total [Moles /volume] in Central venous bloodOrdered By: Fredo Alberts on 02-03-2025 CO2 [Moles/Vol] 27.1 mmol/L 21.0-32.0 [facility] Chloride assayOrdered By: Ed Alberts on 02-03-2025 Chloride [Moles/Vol] 97 mmol/L Low 98-108 [facility] Eosinophil percentageOrdered By: Fredo Alberts on 02-03-2025 Eosinophils/100 WBC (Bld) 0.0 % 0-5 [facility] Erythrocyte distribution wid th ratioOrdered By: Fredo Alberts on 02-03-2025 Erythrocyte distribution width (RBC) [Ratio] 15.2 % High 11.6-14.6 [facility] Erythrocyte distribution wid th standard deviationOrdered By: Fredo Alberts on 02-03-2025 Erythrocyte distribution width (RBC) [Ratio] 47.6 fl High 35.1-43.9 [facility] Glomerular filtration rate ( GFR) estimation/1.73 sq m using serum, plasma, or whole bOrdered By: Fredo Alberts on 02-03-2025 GFR/1.73 sq M.predicted among non-blacks MDRD (S/P/Bld) [Vol rate/Area] 80 mL/min/{1.73_m2} >60 [facility] Comment on above: mL/min/1.73m2 CKD-EP I Creatinine Equation (2020) [facility] deOrdered By: Fredo Alberts on 02-03-2025 Glucose [Mass/Vol] 101 mg/dL 74-106 [facility] Comment on above: MANAGEMENT OF PATIEN T CARE PER NURSING PROTOCOL Hematocrit Auto (Bld) [Volum e fraction]Ordered By: Fredo Alberts on 02-03-2025 Hematocrit (Bld) [Volume fraction] 40.1 % 40-54 [facility] Hemoglobin measurementOrdere d By: Fredo Alberts on 02-03-2025 Hemoglobin (Bld) [Mass/Vol] 12.3 g/dL Low 13.0-16.5 [facility] Immature granulocytes/100 WB C Auto (Bld)Ordered By: Fredo Alberts on 02-03-2025 Immature granulocytes/100 WBC (Bld) 0.400 % 0.0-0.9 [facility] Comment on above: IG% - Immature Granu locytes (promyelocytes, myelocytes and metamyelocytes) > 1% indicates that a LEFT SHIFT is Present. M8200.1000on 02-03-2025 M8200.1000 Normal Reference Range = Negative MRSA DNA Nose Ql DALIA+probe GeneXpert Instrument, PCR method MRSA PCR MRSA NEGATIVE Normal [facility] Comment on above: Performed By: #### M 8200.1000 ####[facility] [address] [place], [address] MCV (mean corpuscular volume ) determinationOrdered By: Fredo Alberts on 02-03-2025 MCV (RBC) [Entitic vol] 85.5 fL 80-94 [facility] Mean corpuscular hemoglobin (MCH) determinationOrdered By: Fredo Alberts on 02-03-2025 MCH (RBC) [Entitic mass] 26.2 pg Low 27.0-32.0 [facility] Mean corpuscular hemoglobin concentration (MCHC) determinationOrdered By: Fredo Alberts on 02-03-2025 MCHC (RBC) [Mass/Vol] 30.7 g/dL Low 32-36 [facility] Mean platelet volume determi nationOrdered By: Fredo Alberts on 02-03-2025 Platelet mean volume (Bld) [Entitic vol] 10.5 fL 6.2-12.0 [facility] Monocyte percentageOrdered B y: Fredo Alberts on 02-03-2025 Monocytes/100 WBC (Bld) 6.6 % 0-10 [facility] Neutrophil percentageOrdered By: Fredo Alberts on 02-03-2025 Neutrophils/100 WBC (Bld) 85.0 % High 47-70 [facility] Nucleated red blood cell per centageOrdered By: Fredo Alberts on 02-03-2025 Nucleated RBC/100 WBC (Bld) [Ratio] 0 % 0-5 [facility] Platelet countOrdered By: Ed Alberts on 02-03-2025 Platelets (Bld) [#/Vol] 237 10*3/uL 150-450 [facility] Potassium measurement (mass/ volume)Ordered By: Fredo Alberts on 02-03-2025 Potassium (Unsp spec) [Mass/Vol] 4.2 mmol/L 3.3-5.1 [facility] RBC Auto (Bld) [#/Vol]Ordere d By: Fredo Alberts on 02-03-2025 RBC (Bld) [#/Vol] 4.69 10*6/uL 4.6-6.2 [facility] Serum creatinine measurement (mass/volume)Ordered By: Fredo Alberts on 02-03-2025 Creatinine [Mass/Vol] 1.09 mg/dL 0.70-1.20 [facility] Serum glucose measurement (m ass/volume)Ordered By: Fredo Alberts on 02-03-2025 Glucose [Mass/Vol] 337 mg/dL High 70-99 [facility] Serum or plasma calcium michael urement (mass/volume)Ordered By: Fredo Alberts on 02-03-2025 Calcium [Mass/Vol] 9.3 mg/dL 7.6-11.0 [facility] Serum or plasma urea nitroge n measurement (mass/volume)Ordered By: Frdeo Alberts on 02-03-2025 Urea nitrogen [Mass/Vol] 21 mg/dL High 4-19 [facility] Sodium levelOrdered By: Skyler Alberts on 02-03-2025 Sodium [Moles/Vol] 136 mmol/L 133-145 [facility] Trough vancomycin levelOrder ed By: Rosalva Fowler on 02-03-2025 Vancomycin trough [Mass/Vol] 24.5 ug/mL High 5.0-15.0 [facility] Comment on above: Recommended goal tro ugh [...] therapy recommended for serious lifethreatening infections include:- Iuqqevakxj-Ctfjvoxcjsxo-Vvnoggipp (Ventilator/[employer])-Sepsis PLEASE CONTACT PHARMACY SERVICES (#[id number]) FOR INTERPRETATIONOF RESULTS. Vancomycin, Trough Levelon 0 02-03-2025 VANCO, TROUGH 24.5 ug/mL High 5.0-15.0 [facility] Comment on above: Order Comment: Comme nts: Trough to be drawn 30 mins prior to scheduled [id number] Result Comment: El mmended goal trough ranges [...] therapy recommended for serious lifethreatening infections include:- Xcicpemizi-Ytiejwdjazpd-Cvhiirsmv (Ventilator/Healtcare Associated)-SepsisPLEASE CONTACT PHARMACY SERVICES (#7620) FOR INTERPRETATIONOF RESULTS. Performed By: #### L 501.8820 ####[facility] [address] [place], [address] White blood cell (WBC) count Ordered By: Fredo Alberts on 02-03-2025 WBC (Bld) [#/Vol] 12.0 10*3/uL High 4.4-11.0 [facility] Basic Metabolic Profile (BMP )on 02-02-2025 BUN/CRE 15.7 RATIO Normal 10-20 [facility] Comment on above: Performed By: #### L 503.7505, L500.2500, L501.2300, L501.5200, L100.0100 ####[facility] [address] [place], [address] Calcium [Mass/Vol] 9.7 mg/dL Normal 7.6-11.0 [facility] Comment on above: Performed By: #### L 503.7505, L500.2500, L501.2300, L501.5200, L100.0100 ####[facility] [address] [place], [address] Chloride [Moles/Vol] 101 mmol/L Normal 98-108 [facility] Comment on above: Performed By: #### L 503.7505, L500.2500, L501.2300, L501.5200, L100.0100 ####[facility] [address] [place], [address] CO2 [Moles/Vol] 25.8 mmol/L Normal 21.0-32.0 [facility] Comment on above: Performed By: #### L 503.7505, L500.2500, L501.2300, L501.5200, L100.0100 ####[facility] [address] [place], [address] Creatinine [Mass/Vol] 0.93 mg/dL Normal 0.70-1.20 [facility] Comment on above: Performed By: #### L 503.7505, L500.2500, L501.2300, L501.5200, L100.0100 ####[facility] [address] [place], [address] ECRCL 102.75 ml/min Normal 50-250 [facility] Comment on above: Performed By: #### L 503.7505, L500.2500, L501.2300, L501.5200, L100.0100 ####[facility] [address] [place], [address] GAP 12 Normal 5-15 [facility] Comment on above: Performed By: #### L 503.7505, L500.2500, L501.2300, L501.5200, L100.0100 ####[facility] [address] [place], [address] GFR/1.73 sq M.predicted among non-blacks MDRD (S/P/Bld) [Vol rate/Area] 97 mL/min/{1.73_m2} Normal >60 [facility] Comment on above: Result Comment: mL/m in/1.73m2 CKD-EPI Creatinine Equation (2020) Performed By: #### L 503.7505, L500.2500, L501.2300, L501.5200, L100.0100 ####[facility] [address] [place], [address] Glucose [Mass/Vol] 201 mg/dL High 70-99 [facility] Comment on above: Performed By: #### L 503.7505, L500.2500, L501.2300, L501.5200, L100.0100 ####[facility] [address] [place], [address] Potassium [Moles/Vol] 4.2 mmol/L Normal 3.3-5.1 [facility] Comment on above: Performed By: #### L 503.7505, L500.2500, L501.2300, L501.5200, L100.0100 ####[facility] [address] [place], [address] Sodium [Moles/Vol] 139 mmol/L Normal 133-145 [facility] Comment on above: Performed By: #### L 503.7505, L500.2500, L501.2300, L501.5200, L100.0100 ####[facility] [address] [place], [address] Urea nitrogen [Mass/Vol] 15 mg/dL Normal 4-19 [facility] Comment on above: Performed By: #### L 503.7505, L500.2500, L501.2300, L501.5200, L100.0100 ####[facility] [address] [place], [address] Bedside Glucoseon 02-02-2025 FINGERSTICK GLU 209 mg/dL High 74-106 [facility] Comment on above: Result Comment: JEFFREY BOWIE OF PATIENT CARE PER NURSING PROTOCOL Performed By: #### L 501.080 ####[facility] [address] [place], [address] FINGERSTICK GLU 212 mg/dL High 74-106 [facility] Comment on above: Result Comment: JEFFREY GEMENT OF PATIENT CARE PER NURSING PROTOCOL Performed By: #### L 501.080 ####[facility] [address] [place], [address] FINGERSTICK GLU 212 mg/dL High 74-106 [facility] Comment on above: Result Comment: JEFFREY GEMENT OF PATIENT CARE PER NURSING PROTOCOL Performed By: #### L 501.080 ####[facility] [address] [place], [address] FINGERSTICK GLU 224 mg/dL High 74-106 [facility] Comment on above: Result Comment: JEFFREY GEMENT OF PATIENT CARE PER NURSING PROTOCOL Performed By: #### L 501.080 ####[facility] [address] [place], [address] CBC W/Diff, Automatedon 08-0 8-2024 Absolute Lymph 0.88 X10 3/uL Normal 0.83-4.51 [facility] Comment on above: Performed By: #### L 503.7505, L500.2500, L501.2300, L501.5200, L100.0100 ####[facility] [address] [place], [address] Absolute Neut 10.1 X10 3/uL High 2.0-7.7 [facility] Comment on above: Performed By: #### L 503.7505, L500.2500, L501.2300, L501.5200, L100.0100 ####[facility] [address] [place], [address] Basophils/100 WBC (Bld) 0.1 % Normal 0-1 [facility] Comment on above: Performed By: #### L 503.7505, L500.2500, L501.2300, L501.5200, L100.0100 ####[facility] [address] [place], [address] Eosinophils/100 WBC (Bld) 0.0 % Normal 0-5 [facility] Comment on above: Performed By: #### L 503.7505, L500.2500, L501.2300, L501.5200, L100.0100 ####[facility] [address] [place], [address] Erythrocyte distribution width (RBC) [Ratio] 15.3 % High 11.6-14.6 [facility] Comment on above: Performed By: #### L 503.7505, L500.2500, L501.2300, L501.5200, L100.0100 ####[facility] [address] [place], [address] Hematocrit (Bld) [Volume fraction] 41.4 % Normal 40-54 [facility] Comment on above: Performed By: #### L 503.7505, L500.2500, L501.2300, L501.5200, L100.0100 ####[facility] [address] [place], [address] Hemoglobin (Bld) [Mass/Vol] 12.4 g/dL Low 13.0-16.5 [facility] Comment on above: Performed By: #### L 503.7505, L500.2500, L501.2300, L501.5200, L100.0100 ####[facility] [address] [place], [address] IG% 0.300 Normal 0.0-0.9 [facility] Comment on above: Result Comment: IG% - Immature Granulocytes (promyelocytes, myelocytes andmetamyelocytes) > 1% indicates that a LEFT SHIFT is Present. Performed By: #### L 503.7505, L500.2500, L501.2300, L501.5200, L100.0100 ####[facility] [address] [place], [address] Lymphocytes/100 WBC (Bld) 7.5 % Low 19-41 [facility] Comment on above: Performed By: #### L 503.7505, L500.2500, L501.2300, L501.5200, L100.0100 ####[facility] [address] [place], [address] MCH (RBC) [Entitic mass] 26.1 pg Low 27.0-32.0 [facility] Comment on above: Performed By: #### L 503.7505, L500.2500, L501.2300, L501.5200, L100.0100 ####[facility] [address] [place], [address] MCHC (RBC) [Mass/Vol] 30.0 g/dL Low 32-36 [facility] Comment on above: Performed By: #### L 503.7505, L500.2500, L501.2300, L501.5200, L100.0100 ####[facility] [address] [place], [address] MCV (RBC) [Entitic vol] 87.0 fL Normal 80-94 [facility] Comment on above: Performed By: #### L 503.7505, L500.2500, L501.2300, L501.5200, L100.0100 ####[facility] [address] [place], [address] Monocytes/100 WBC (Bld) 6.1 % Normal 0-10 [facility] Comment on above: Performed By: #### L 503.7505, L500.2500, L501.2300, L501.5200, L100.0100 ####[facility] [address] [place], [address] Neutrophils/100 WBC (Bld) 86.0 % High 47-70 [facility] Comment on above: Performed By: #### L 503.7505, L500.2500, L501.2300, L501.5200, L100.0100 ####[facility] [address] [place], [address] Nucleated RBC (Bld) [#/Vol] 0 10*3/uL Normal 0-5 [facility] Comment on above: Performed By: #### L 503.7505, L500.2500, L501.2300, L501.5200, L100.0100 ####[facility] [address] [place], [address] Platelet mean volume (Bld) [Entitic vol] 10.7 fL Normal 6.2-12.0 [facility] Comment on above: Performed By: #### L 503.7505, L500.2500, L501.2300, L501.5200, L100.0100 ####[facility] [address] [place], [address] Platelets (Bld) [#/Vol] 221 10*3/uL Normal 150-450 [facility] Comment on above: Performed By: #### L 503.7505, L500.2500, L501.2300, L501.5200, L100.0100 ####[facility] [address] [place], [address] RBC (Bld) [#/Vol] 4.76 10*6/uL Normal 4.6-6.2 [facility] Comment on above: Performed By: #### L 503.7505, L500.2500, L501.2300, L501.5200, L100.0100 ####[facility] [address] [place], [address] RDW SD 48.5 fl High 35.1-43.9 [facility] Comment on above: Performed By: #### L 503.7505, L500.2500, L501.2300, L501.5200, L100.0100 ####[facility] [address] [place], [address] WBC (Bld) [#/Vol] 11.7 10*3/uL High 4.4-11.0 [facility] Comment on above: Performed By: #### L 503.7505, L500.2500, L501.2300, L501.5200, L100.0100 ####[facility] [address] [place], [address] Legionella Antigen Urineon 0 02-02-2025 LEGU Normal [facility] Comment on above: Performed By: #### M 100.638, M300.4500, M300.4600 ####[facility] [address] [place], [address] Magnesiumon 02-02-2025 Magnesium [Mass/Vol] 1.6 mg/dL Normal 1.5-2.2 [facility] Comment on above: Performed By: #### L 503.7505, L500.2500, L501.2300, L501.5200, L100.0100 ####[facility] [address] [place], [address] Magnesium measurement (mass/ volume)Ordered By: Fredo Alberts on 02-02-2025 Magnesium (Unsp spec) [Mass/Vol] 1.6 mg/dL 1.5-2.2 [facility] Natriuretic peptide.B prohor fredis N-Terminal [Mass/volume] in Serum or PlasmaOrdered By: Fredo Alberts on 02-02-2025 Natriuretic peptide.B prohormone N-Terminal [Mass/Vol] 420 pg/mL <900 [facility] Comment on above: Heart Failure Unlike ly: < 300 pg/mLHeart Failure Likely< 50 Years: > 450 pg/mL50-75 Years: > 900 pg/mL>75 Years: > 1800 pg/mL Phosphoruson 02-02-2025 Phosphate [Mass/Vol] 3.3 mg/dL Normal 2.7-4.5 [facility] Comment on above: Performed By: #### L 501.2300 ####[facility] [address] [place], [address] Phosphate [Mass/Vol] 2.6 mg/dL Low 2.7-4.5 [facility] Comment on above: Performed By: #### L 503.7505, L500.2500, L501.2300, L501.5200, L100.0100 ####[facility] [address] [place], [address] Pro- Brain NATRIURETIC PEPTI Balta 02-02-2025 Natriuretic peptide B (Bld) [Mass/Vol] 420 pg/mL Normal <=900 [facility] Comment on above: Result Comment: Hear t Failure Unlikely: < 300 pg/mLHeart Failure Likely< 50 Years: > 450 pg/mL50-75 Years: > 900 pg/mL>75 Years: > 1800 pg/mL Performed By: #### L 503.7505, L500.2500, L501.2300, L501.5200, L100.0100 ####[facility] [address] [place], [address] Strep pneumoniae Antig(UR,CS F)on 02-02-2025 STPAG Normal [facility] Comment on above: Performed By: #### M 100.638, M300.4500, M300.4600 ####[facility] [address] [place], [address] 12 Lead EKGon 02-01-2025 12 Lead EKG Normal [facility] Assessment of wrist artery p atency prior to arterial punctureOrdered By: Rosalva Fowler on 02-01-2025 Arterial patency Wrist artery --pre arterial puncture Positive [facility] Bedside Glucoseon 02-01-2025 FINGERSTICK GLU 250 mg/dL High 74-106 [facility] Comment on above: Result Comment: Dext juan josé 50 GivenDr Orders FollowedMANAGEMENT OF PATIENT CARE PER NURSING PROTOCOL Performed By: #### L 501.080 ####[facility] [address] [place], [address] FINGERSTICK GLU 257 mg/dL High 74-106 [facility] Comment on above: Result Comment: JEFFREY GEMENT OF PATIENT CARE PER NURSING PROTOCOL Performed By: #### L 501.080 ####[facility] [address] [place], [address] FINGERSTICK GLU 186 mg/dL High 74-106 [facility] Comment on above: Result Comment: JEFFREY GEMENT OF PATIENT CARE PER NURSING PROTOCOL Performed By: #### L 501.080 ####[facility] [address] [place], [address] FINGERSTICK GLU 176 mg/dL High -106 [facility] Comment on above: Result Comment: JEFFREY GEMENT OF PATIENT CARE PER NURSING PROTOCOL Performed By: #### L 501.080 ####[facility] [address] [place], [address] Bilirubin, totalOrdered By: Rosalva Fowler on 02-01-2025 Bilirubin [Mass/Vol] 0.25 mg/dL 0.00-1.30 [facility] ALIN TEST Positive Normal [facility] Comment on above: Performed By: #### L 9000.0800 ####[facility] [address] [place], [address] Base excess Calc (Bld) [Moles/Vol] 1 mmol/L Normal -2 to +2 [facility] Comment on above: Performed By: #### L 9000.0800 ####[facility] [address] [place], [address] Blood Gas Type ART Normal [facility] Comment on above: Performed By: #### L 9000.0800 ####[facility] [address] [place], [address] CO2 [Moles/Vol] 29 mmol/L Normal [facility] Comment on above: Performed By: #### L 9000.0800 ####[facility] [address] [place], [address] FI02 50.0 Normal [facility] Comment on above: Performed By: #### L 9000.0800 ####[facility] [address] [place], [address] HCO3 (Bld) [Moles/Vol] 27.5 mmol/L High 22-26 [facility] Comment on above: Performed By: #### L 9000.0800 ####[facility] [address] [place], [address] Mode Not entered Normal [facility] Comment on above: Performed By: #### L 9000.0800 ####[facility] [address] [place], [address] O2 Delivery Dev CPAP Normal [facility] Comment on above: Performed By: #### L 9000.0800 ####[facility] [address] [place], [address] pCO2 54.3 mmHg High 35-45 [facility] Comment on above: Performed By: #### L 9000.0800 ####[facility] [address] [place], [address] pH (Bld) 7.31 [pH] Low 7.35-7.45 [facility] Comment on above: Performed By: #### L 9000.0800 ####[facility] [address] [place], [address] PO2 82 mmHG Normal 75-100 [facility] Comment on above: Performed By: #### L 9000.0800 ####[facility] [address] [place], [address] SITE L Radial Normal [facility] Comment on above: Performed By: #### L 9000.0800 ####[facility] [address] [place], [address] SO2 95 Normal 95-99 [facility] Comment on above: Performed By: #### L 9000.0800 ####[facility] [address] [place], [address] Blood base excess determinat ionOrdered By: Rosalva Fowler on 02-01-2025 Base excess Calc (BldV) [Moles/Vol] 1 mmol/L -2-2 [facility] Blood bicarbonate measuremen tOrdered By: Rosalva Fowler on 02-01-2025 HCO3 (Bld) [Moles/Vol] 27.5 mmol/L High 22-26 [facility] CBC W/Diff, Automatedon 08-0 Absolute Lymph 0.42 X10 3/uL Low 0.83-4.51 [facility] Comment on above: Performed By: #### L 500.4050, L100.0100 ####[facility] [address] [place], [address] Absolute Neut 9.2 X10 3/uL High 2.0-7.7 [facility] Comment on above: Performed By: #### L 500.4050, L100.0100 ####[facility] [address] [place], [address] Basophils/100 WBC (Bld) 0.1 % Normal 0-1 [facility] Comment on above: Performed By: #### L 500.4050, L100.0100 ####[facility] [address] [place], [address] Eosinophils/100 WBC (Bld) 0.0 % Normal 0-5 [facility] Comment on above: Performed By: #### L 500.4050, L100.0100 ####[facility] [address] [place], [address] Erythrocyte distribution width (RBC) [Ratio] 15.3 % High 11.6-14.6 [facility] Comment on above: Performed By: #### L 500.4050, L100.0100 ####[facility] [address] [place], [address] Hematocrit (Bld) [Volume fraction] 41.2 % Normal 40-54 [facility] Comment on above: Performed By: #### L 500.4050, L100.0100 ####[facility] [address] [place], [address] Hemoglobin (Bld) [Mass/Vol] 12.2 g/dL Low 13.0-16.5 [facility] Comment on above: Performed By: #### L 500.4050, L100.0100 ####[facility] [address] [place], [address] IG% 0.300 Normal 0.0-0.9 [facility] Comment on above: Result Comment: IG% - Immature Granulocytes (promyelocytes, myelocytes andmetamyelocytes) > 1% indicates that a LEFT SHIFT is Present. Performed By: #### L 500.4050, L100.0100 ####[facility] [address] [place], [address] Lymphocytes/100 WBC (Bld) 4.3 % Low 19-41 [facility] Comment on above: Performed By: #### L 500.4050, L100.0100 ####[facility] [address] [place], [address] MCH (RBC) [Entitic mass] 26.1 pg Low 27.0-32.0 [facility] Comment on above: Performed By: #### L 500.4050, L100.0100 ####[facility] [address] [place], [address] MCHC (RBC) [Mass/Vol] 29.6 g/dL Low 32-36 [facility] Comment on above: Performed By: #### L 500.4050, L100.0100 ####[facility] [address] [place], [address] MCV (RBC) [Entitic vol] 88.2 fL Normal 80-94 [facility] Comment on above: Performed By: #### L 500.4050, L100.0100 ####[facility] [address] [place], [address] Monocytes/100 WBC (Bld) 1.1 % Normal 0-10 [facility] Comment on above: Performed By: #### L 500.4050, L100.0100 ####[facility] [address] [place], [address] Neutrophils/100 WBC (Bld) 94.2 % High 47-70 [facility] Comment on above: Performed By: #### L 500.4050, L100.0100 ####[facility] [address] [place], [address] Nucleated RBC (Bld) [#/Vol] 0 10*3/uL Normal 0-5 [facility] Comment on above: Performed By: #### L 500.4050, L100.0100 ####[facility] [address] [place], [address] Platelet mean volume (Bld) [Entitic vol] 10.2 fL Normal 6.2-12.0 [facility] Comment on above: Performed By: #### L 500.4050, L100.0100 ####[facility] [address] [place], [address] Platelets (Bld) [#/Vol] 207 10*3/uL Normal 150-450 [facility] Comment on above: Performed By: #### L 500.4050, L100.0100 ####[facility] [address] [place], [address] RBC (Bld) [#/Vol] 4.67 10*6/uL Normal 4.6-6.2 [facility] Comment on above: Performed By: #### L 500.4050, L100.0100 ####[facility] [address] [place], [address] RDW SD 49.1 fl High 35.1-43.9 [facility] Comment on above: Performed By: #### L 500.4050, L100.0100 ####[facility] [address] [place], [address] WBC (Bld) [#/Vol] 9.7 10*3/uL Normal 4.4-11.0 [facility] Comment on above: Performed By: #### L 500.4050, L100.0100 ####[facility] [address] [place], [address] Comprehensive Metabolic Prof [facility] 02-01-2025 Albumin [Mass/Vol] 4.1 g/dL Normal 3.5-5.0 [facility] Comment on above: Performed By: #### L 500.4050, L100.0100 ####[facility] [address] [place], [address] Albumin/Globulin [Mass ratio] 1.6 {ratio} Normal 0.9-2.4 [facility] Comment on above: Performed By: #### L 500.4050, L100.0100 ####[facility] [address] [place], [address] ALK PHOS 130 U/L High 40-129 [facility] Comment on above: Performed By: #### L 500.4050, L100.0100 ####[facility] [address] [place], [address] ALT [Catalytic activity/Vol] 7 U/L Normal <=46 [facility] Comment on above: Performed By: #### L 500.4050, L100.0100 ####[facility] [address] [place], [address] AST [Catalytic activity/Vol] 18 U/L Normal <=37 [facility] Comment on above: Performed By: #### L 500.4050, L100.0100 ####[facility] [address] [place], [address] Bilirubin [Mass/Vol] 0.25 mg/dL Normal 0.00-1.30 [facility] Comment on above: Performed By: #### L 500.4050, L100.0100 ####[facility] [address] [place], [address] BUN/CRE 13.3 RATIO Normal 10-20 [facility] Comment on above: Performed By: #### L 500.4050, L100.0100 ####[facility] [address] [place], [address] Calcium [Mass/Vol] 9.2 mg/dL Normal 7.6-11.0 [facility] Comment on above: Performed By: #### L 500.4050, L100.0100 ####[facility] [facility] [address] [place], [address] Chloride [Moles/Vol] 104 mmol/L Normal 98-108 [facility] Comment on above: Performed By: #### L 500.4050, L100.0100 ####[facility] [address] [place], [address] CO2 [Moles/Vol] 22.1 mmol/L Normal 21.0-32.0 [facility] Comment on above: Performed By: #### L 500.4050, L100.0100 ####[facility] [address] [place], [address] Creatinine [Mass/Vol] 1.09 mg/dL Normal 0.70-1.20 [facility] Comment on above: Performed By: #### L 500.4050, L100.0100 ####[facility] [address] [place], [address] ECRCL 86.49 ml/min Normal 50-250 [facility] Comment on above: Performed By: #### L 500.4050, L100.0100 ####[facility] [address] [place], [address] GAP 15 Normal 5-15 [facility] Comment on above: Performed By: #### L 500.4050, L100.0100 ####[facility] [address] [place], [address] GFR/1.73 sq M.predicted among non-blacks MDRD (S/P/Bld) [Vol rate/Area] 80 mL/min/{1.73_m2} Normal >60 [facility] Comment on above: Result Comment: mL/m in/1.73m2 CKD-EPI Creatinine Equation (2020) Performed By: #### L 500.4050, L100.0100 ####[facility] [address] [place], [address] Globulin (S) [Mass/Vol] 2.6 g/dL Normal 2.2-4.2 [facility] Comment on above: Performed By: #### L 500.4050, L100.0100 ####[facility] [address] [place], [address] Glucose [Mass/Vol] 195 mg/dL High 70-99 [facility] Comment on above: Performed By: #### L 500.4050, L100.0100 ####[facility] [address] [place], [address] Potassium [Moles/Vol] 4.6 mmol/L Normal 3.3-5.1 [facility] Comment on above: Performed By: #### L 500.4050, L100.0100 ####[facility] [address] [place], [address] Sodium [Moles/Vol] 141 mmol/L Normal 133-145 [facility] Comment on above: Performed By: #### L 500.4050, L100.0100 ####[facility] [address] [place], [address] T PROT 6.7 g/dL Normal 5.9-8.4 [facility] Comment on above: Performed By: #### L 500.4050, L100.0100 ####[facility] [address] [place], [address] Urea nitrogen [Mass/Vol] 15 mg/dL Normal 4-19 [facility] Comment on above: Performed By: #### L 500.4050, L100.0100 ####[facility] [address] [place], [address] Electrocardiogram reportOrde red By: Salvador Rodriguez on 02-01-2025 EKG study [facility] [address] [place] [address] 12 Lead EKG 02/01/25 0517 MR#: [id number] Acct: [id number] Name: RIGO GARCIA Rep #:[id number] : 1970 55 From: Salvador Rodriguez MD Attending Dr: Dr. Fredo Alberts MD Status: ADM IN Ordering Dr: Rosalva Fowler MD Date: 02/01/25 Location: [facility] Sex: M UTD Admitted: 01/31/25 Test Reason [...] IS UNCONFIRMED Confirmed by SALVADOR RODRIGUEZ MD ([id number]), publication editor MARY BALTAZAR ([id number]) on 02/01/2025 9:30:18 AM Referred By: JANETH Confirmed By: SALVADOR RODRIGUEZ MD 02/01/25929 Date _ Salvador Rodriguez MD CC: Dr. Rosalva Fowler MD; Dr. Fredo Alberts MD; Dr. Mame Bright MD ~ Signed [facility] Other [id number] 02-01-2025 Procalcitonin 0.16 ng/mL High <=0.10 [facility] Comment on above: Result Comment: Inte rpretation:<0.10-0.25 ng/mL: Antibiotic therapy discouraged. Bacterialinfection unlikely.0.25-0.50 ng/mL: Antibiotic therapy encouraged. Bacterialinfection possible.>0.50 ng/mL: Antibiotic therapy strongly encouraged.Suggestive of presence of bacterial infection.PCT should always be interpreted in the clinical context ofthe patient. Therefore, clinicians should use the PCTresults in conjunction with other laboratory findings andclinical signs of the patient. Performed By: #### L 018.2716 ####[facility] [address] [place], [place], [address] Laboratory - Chemistry and C hemistry - challengeOrdered By: Rosalva Fowler on 02-01-2025 AST [Catalytic activity/Vol] 18 U/L <38 [facility] Lactic Acidon 02-01-2025 Lactate [Moles/Vol] 2.9 mmol/L Invalid Interpretation Code 0.0-2.0 [facility] Comment on above: Result Comment: Crit ical Result(s) Called at:0236 by:??MAE HAVEN TO MEGANGROVE Results read back by same. Performed By: #### L 834.9464 ####[facility] [address] [place], [place], [id number] Lactic acid measurementOrder ed By: Keith Garcia on 02-01-2025 Lactate [Moles/Vol] 2.9 mmol/L Critically high 0.0-2.0 [facility] Comment on above: Critical Result(s) C alled at:0236 by: MAE WADE TO SILVIO LEE Results read back by same. Measurement, pHOrdered By: Tanisha Fowler on 02-01-2025 pH (Unsp spec) 7.31 [pH] Low 7.35-7.45 [facility] Nasal methicillin resistant Staphylococcus aureus (MRSA) DNA detection by PCROrdered By: Rosalva Fowler on 02-01-2025 MRSA DNA DALIA+probe Ql (Nose) [facility] MRSA DNA DALIA+probe Ql (Nose) [facility] No Panel InformationOrdered By: Rosalva Fowler on 02-01-2025 Blood Gas Sample Site L Radial [facility] Blood Gas Specimen Type ART [facility] Blood Gas Vent Mode Not entered [facility] Oxygen Delivery Device CPAP [facility] RESPIRATORY PANEL MOLECULARo n 02-01-2025 RP PANEL Normal [facility] Comment on above: Performed By: #### M 100.638, M300.4500, M300.4600 ####[facility] [address] [facility] [address] [place], [place], [id number] Respiratory pathogens detect ion panel by molecular detection methodOrdered By: Rosalva Fowler on 02-01-2025 Respiratory pathogens DNA and RNA panel DALIA+probe (Resp) Rhinovirus Abnormal [facility] Serum globulin measurementOr dered By: Rosalva Fowler on 02-01-2025 Globulin (S) [Mass/Vol] 2.6 g/dL 2.2-4.2 [facility] Serum or plasma alanine ramsey otransferase (ALT) measurementOrdered By: Rosalva Fowler on 02-01-2025 ALT [Catalytic activity/Vol] 7 U/L <47 [facility] Serum or plasma albumin michael urement (mass/volume)Ordered By: Rosalva Fowler on 02-01-2025 Albumin [Mass/Vol] 4.1 g/dL 3.5-5.0 [facility] Serum or plasma albumin/glob ulin mass ratioOrdered By: Rosalva Janeth on 02-01-2025 Albumin/Globulin [Mass ratio] 1.6 {ratio} 0.9-2.4 [facility] Serum or plasma alkaline katey sphatase measurementOrdered By: Rosalva Janeth on 02-01-2025 ALP [Catalytic activity/Vol] 130 U/L High 40-129 [facility] Total carbon dioxide measure mentOrdered By: on 02-01-2025 CO2 [Moles/Vol] 29 mmol/L [facility] Total proteinOrdered By: [facility] Janeth on 02-01-2025 Protein [Mass/Vol] 6.7 g/dL 5.9-8.4 [facility] 12 Lead EKGon 01-31-2025 12 Lead EKG Normal [facility] Absolute lymphocyte countOrd ered By: Keith Garcia on 01-31-2025 Lymphocytes Auto (Unsp spec) [#/Vol] 2.12 10*3/uL 0.83-4.51 [facility] Absolute neutrophil countOrd ered By: Keith Garcia on 01-31-2025 Neutrophils (Bld) [#/Vol] 6.9 10*3/uL 2.0-7.7 [facility] Activated partial thrombopla stin time (aPTT) in platelet poor plasma by coagulation aOrdered By: Keith Garcia on 01-31-2025 aPTT Coag (PPP) [Time] 26.2 s 24.1-36.2 [facility] Anion gap in Serum or Plasma Ordered By: Keith Garcia on 01-31-2025 Anion gap [Moles/Vol] 12 mmol/L 5-15 [facility] Assessment of wrist artery p atency prior to arterial punctureOrdered By: Keith Garcia on 01-31-2025 Arterial patency Wrist artery --pre arterial puncture Positive [facility] Automated lymphocyte count a s percentage of total leukocytesOrdered By: Keith Garcia on 01-31-2025 Lymphocytes/100 WBC Auto (Unsp spec) 20.8 % 19-41 [facility] BUN/creatinine ratioOrdered By: Keith Garcia on 01-31-2025 Urea nitrogen/Creatinine [Mass ratio] 14.4 mg/mg 10-20 [facility] Basophil percentageOrdered B y: Keith Garcia on 01-31-2025 Basophils/100 WBC (Bld) 0.4 % 0-1 [facility] Bilirubin Test strip Ql (U)O rdered By: Keithsparkle Garcia on 01-31-2025 Bilirubin Ql (U) 1 mg/dL High Negative [facility] Comment on above: COLOR OF URINE MAY A FFECT DIPSTICK RESULTS. Bilirubin, totalOrdered By: Keith Garcia on 01-31-2025 Bilirubin [Mass/Vol] 0.27 mg/dL 0.00-1.30 [facility] Blood Gases by CPSon 025 ALIN TEST Positive Normal [facility] Comment on above: Performed By: #### L 9000.0800 ####[facility] [address] [place], [address] Base excess Calc (Bld) [Moles/Vol] -5 mmol/L Low -2 to +2 [facility] Comment on above: Performed By: #### L 9000.0800 ####[facility] [address] [place], [address] Blood Gas Type ART Normal [facility] Comment on above: Performed By: #### L 9000.0800 ####[facility] [address] [place], [address] CO2 [Moles/Vol] 22 mmol/L Normal [facility] Comment on above: Performed By: #### L 9000.0800 ####[facility] [address] [place], [address] FI02 6.0 Normal [facility] Comment on above: Performed By: #### L 9000.0800 ####[facility] [address] [place], [address] HCO3 (Bld) [Moles/Vol] 21.0 mmol/L Low 22-26 [facility] Comment on above: Performed By: #### L 9000.0800 ####[facility] [address] [place], [address] Mode Not entered Normal [facility] Comment on above: Performed By: #### L 9000.0800 ####[facility] [address] [place], [address] O2 Delivery Dev Cannula Normal [facility] Comment on above: Performed By: #### L 9000.0800 ####[facility] [address] [place], [address] pCO2 40.8 mmHg Normal 35-45 [facility] Comment on above: Performed By: #### L 9000.0800 ####[facility] [address] [place], [address] pH (Bld) 7.32 [pH] Low 7.35-7.45 [facility] Comment on above: Performed By: #### L 9000.0800 ####[facility] [address] [place], [address] PO2 65 mmHG Low 75-100 [facility] Comment on above: Performed By: #### L 9000.0800 ####[facility] [address] [place], [address] SITE L Radial Normal [facility] Comment on above: Performed By: #### L 9000.0800 ####[facility] [address] [place], [address] SO2 91 Low 95-99 [facility] Comment on above: Performed By: #### L 9000.0800 ####[facility] [address] [place], [address] Blood base excess determinat ionOrdered By: Keith Garcia on 01-31-2025 Base excess Calc (BldV) [Moles/Vol] -5 mmol/L Low -2-2 [facility] Blood bicarbonate measuremen tOrdered By: Keith Garcia on 01-31-2025 HCO3 (Bld) [Moles/Vol] 21.0 mmol/L Low 22-26 [facility] Blood cultureOrdered By: Keith Garcia on 01-31-2025 Bacteria identified Cx Nom (Bld) No growth in 5 days. [facility] Bacteria identified Cx Nom (Bld) No growth in 5 days. [facility] CBC W/Diff, Automatedon 08-0 Absolute Lymph 2.12 X10 3/uL Normal 0.83-4.51 [facility] Comment on above: Performed By: #### L 503.6005, M200.1000, L300.4310, L300.3900, L500.4050, L100.0100 ####[facility] [address] [place], [address] Absolute Neut 6.9 X10 3/uL Normal 2.0-7.7 [facility] Comment on above: Performed By: #### L 503.6005, M200.1000, L300.4310, L300.3900, L500.4050, L100.0100 ####[facility] [address] [place], [address] Basophils/100 WBC (Bld) 0.4 % Normal 0-1 [facility] Comment on above: Performed By: #### L 503.6005, M200.1000, L300.4310, L300.3900, L500.4050, L100.0100 ####[facility] [address] [place], [address] Eosinophils/100 WBC (Bld) 1.8 % Normal 0-5 [facility] Comment on above: Performed By: #### L 503.6005, M200.1000, L300.4310, L300.3900, L500.4050, L100.0100 ####[facility] [address] [place], [address] Erythrocyte distribution width (RBC) [Ratio] 15.4 % High 11.6-14.6 [facility] Comment on above: Performed By: #### L 503.6005, M200.1000, L300.4310, L300.3900, L500.4050, L100.0100 ####[facility] [address] [place], [address] Hematocrit (Bld) [Volume fraction] 42.7 % Normal 40-54 [facility] Comment on above: Performed By: #### L 503.6005, M200.1000, L300.4310, L300.3900, L500.4050, L100.0100 ####[facility] [address] [place], [address] Hemoglobin (Bld) [Mass/Vol] 13.0 g/dL Normal 13.0-16.5 [facility] Comment on above: Performed By: #### L 503.6005, M200.1000, L300.4310, L300.3900, L500.4050, L100.0100 ####[facility] [address] [place], [address] IG% 0.300 Normal 0.0-0.9 [facility] Comment on above: Result Comment: IG% - Immature Granulocytes (promyelocytes, myelocytes andmetamyelocytes) > 1% indicates that a LEFT SHIFT is Present. Performed By: #### L 503.6005, M200.1000, L300.4310, L300.3900, L500.4050, L100.0100 ####[facility] [address] [place], [address] Lymphocytes/100 WBC (Bld) 20.8 % Normal 19-41 [facility] Comment on above: Performed By: #### L 503.6005, M200.1000, L300.4310, L300.3900, L500.4050, L100.0100 ####[facility] [address] [place], [address] MCH (RBC) [Entitic mass] 26.3 pg Low 27.0-32.0 [facility] Comment on above: Performed By: #### L 503.6005, M200.1000, L300.4310, L300.3900, L500.4050, L100.0100 ####[facility] [address] [place], [address] MCHC (RBC) [Mass/Vol] 30.4 g/dL Low 32-36 [facility] Comment on above: Performed By: #### L 503.6005, M200.1000, L300.4310, L300.3900, L500.4050, L100.0100 ####[facility] [address] [place], [address] MCV (RBC) [Entitic vol] 86.3 fL Normal 80-94 [facility] Comment on above: Performed By: #### L 503.6005, M200.1000, L300.4310, L300.3900, L500.4050, L100.0100 ####[facility] [address] [place], [address] Monocytes/100 WBC (Bld) 8.8 % Normal 0-10 [facility] Comment on above: Performed By: #### L 503.6005, M200.1000, L300.4310, L300.3900, L500.4050, L100.0100 ####[facility] [address] [place], [address] Neutrophils/100 WBC (Bld) 67.9 % Normal 47-70 [facility] Comment on above: Performed By: #### L 503.6005, M200.1000, L300.4310, L300.3900, L500.4050, L100.0100 ####[facility] [address] [place], [address] Nucleated RBC (Bld) [#/Vol] 0 10*3/uL Normal 0-5 [facility] Comment on above: Performed By: #### L 503.6005, M200.1000, L300.4310, L300.3900, L500.4050, L100.0100 ####[facility] [address] [place], [address] Platelet mean volume (Bld) [Entitic vol] 10.1 fL Normal 6.2-12.0 [facility] Comment on above: Performed By: #### L 503.6005, M200.1000, L300.4310, L300.3900, L500.4050, L100.0100 ####[facility] [address] [place], [address] Platelets (Bld) [#/Vol] 239 10*3/uL Normal 150-450 [facility] Comment on above: Performed By: #### L 503.6005, M200.1000, L300.4310, L300.3900, L500.4050, L100.0100 ####[facility] [address] [place], [address] RBC (Bld) [#/Vol] 4.95 10*6/uL Normal 4.6-6.2 [facility] Comment on above: Performed By: #### L 503.6005, M200.1000, L300.4310, L300.3900, L500.4050, L100.0100 ####[facility] [address] [place], [address] RDW SD 48.1 fl High 35.1-43.9 [facility] Comment on above: Performed By: #### L 503.6005, M200.1000, L300.4310, L300.3900, L500.4050, L100.0100 ####[facility] [address] [place], [address] WBC (Bld) [#/Vol] 10.2 10*3/uL Normal 4.4-11.0 [facility] Comment on above: Performed By: #### L 503.6005, M200.1000, L300.4310, L300.3900, L500.4050, L100.0100 ####[facility] [address] [place], [address] Carbon dioxide, total [Moles /volume] in Central venous bloodOrdered By: Keith Garcia on 01-31-2025 CO2 [Moles/Vol] 28.3 mmol/L 21.0-32.0 [facility] Chest PA and Lateralon 01-31 Chest PA and Lateral Normal [facility] Chloride assayOrdered By: Arielle Garcia on 01-31-2025 Chloride [Moles/Vol] 105 mmol/L 98-108 [facility] Comprehensive Metabolic Prof ilon 01-31-2025 Albumin [Mass/Vol] 4.3 g/dL Normal 3.5-5.0 [facility] Comment on above: Performed By: #### L 503.6005, M200.1000, L300.4310, L300.3900, L500.4050, L100.0100 ####[facility] [address] [place], [address] Albumin/Globulin [Mass ratio] 1.5 {ratio} Normal 0.9-2.4 [facility] Comment on above: Performed By: #### L 503.6005, M200.1000, L300.4310, L300.3900, L500.4050, L100.0100 ####[facility] [address] [place], [address] ALK PHOS 143 U/L High 40-129 [facility] Comment on above: Performed By: #### L 503.6005, M200.1000, L300.4310, L300.3900, L500.4050, L100.0100 ####[facility] [address] [place], [address] ALT [Catalytic activity/Vol] U/L Normal <=46 [facility] Comment on above: Performed By: #### L 503.6005, M200.1000, L300.4310, L300.3900, L500.4050, L100.0100 ####[facility] [address] [place], [address] AST [Catalytic activity/Vol] 10 U/L Normal <=37 [facility] Comment on above: Performed By: #### L 503.6005, M200.1000, L300.4310, L300.3900, L500.4050, L100.0100 ####[facility] [address] [place], [address] Bilirubin [Mass/Vol] 0.27 mg/dL Normal 0.00-1.30 [facility] Comment on above: Performed By: #### L 503.6005, M200.1000, L300.4310, L300.3900, L500.4050, L100.0100 ####[facility] [address] [place], [address] BUN/CRE 14.4 RATIO Normal 10-20 [facility] Comment on above: Performed By: #### L 503.6005, M200.1000, L300.4310, L300.3900, L500.4050, L100.0100 ####[facility] [address] [place], [address] Calcium [Mass/Vol] 9.4 mg/dL Normal 7.6-11.0 [facility] Comment on above: Performed By: #### L 503.6005, M200.1000, L300.4310, L300.3900, L500.4050, L100.0100 ####[facility] [address] [place], [address] Chloride [Moles/Vol] 105 mmol/L Normal 98-108 [facility] Comment on above: Performed By: #### L 503.6005, M200.1000, L300.4310, L300.3900, L500.4050, L100.0100 ####[facility] [address] [place], [address] CO2 [Moles/Vol] 28.3 mmol/L Normal 21.0-32.0 [facility] Comment on above: Performed By: #### L 503.6005, M200.1000, L300.4310, L300.3900, L500.4050, L100.0100 ####[facility] [address] [place], [address] Creatinine [Mass/Vol] 1.17 mg/dL Normal 0.70-1.20 [facility] Comment on above: Performed By: #### L 503.6005, M200.1000, L300.4310, L300.3900, L500.4050, L100.0100 ####[facility] [address] [place], [address] ECRCL 83.51 ml/min Normal 50-250 [facility] Comment on above: Performed By: #### L 503.6005, M200.1000, L300.4310, L300.3900, L500.4050, L100.0100 ####[facility] [address] [place], [address] GAP 12 Normal 5-15 [facility] Comment on above: Performed By: #### L 503.6005, M200.1000, L300.4310, L300.3900, L500.4050, L100.0100 ####[facility] [address] [place], [address] GFR/1.73 sq M.predicted among non-blacks MDRD (S/P/Bld) [Vol rate/Area] 74 mL/min/{1.73_m2} Normal >60 [facility] Comment on above: Result Comment: mL/m in/1.73m2 CKD-EPI Creatinine Equation (2020) Performed By: #### L 503.6005, M200.1000, L300.4310, L300.3900, L500.4050, L100.0100 ####[facility] [address] [place], [address] Globulin (S) [Mass/Vol] 2.8 g/dL Normal 2.2-4.2 [facility] Comment on above: Performed By: #### L 503.6005, M200.1000, L300.4310, L300.3900, L500.4050, L100.0100 ####[facility] [address] [place], [address] Glucose [Mass/Vol] 114 mg/dL High 70-99 [facility] Comment on above: Performed By: #### L 503.6005, M200.1000, L300.4310, L300.3900, L500.4050, L100.0100 ####[facility] [address] [place], [address] Potassium [Moles/Vol] 4.3 mmol/L Normal 3.3-5.1 [facility] Comment on above: Performed By: #### L 503.6005, M200.1000, L300.4310, L300.3900, L500.4050, L100.0100 ####[facility] [address] [place], [address] Sodium [Moles/Vol] 145 mmol/L Normal 133-145 [facility] Comment on above: Performed By: #### L 503.6005, M200.1000, L300.4310, L300.3900, L500.4050, L100.0100 ####[facility] [address] [place], [place], [id number] T PROT 7.1 g/dL Normal 5.9-8.4 [facility] Comment on above: Performed By: #### L 503.6005, M200.1000, L300.4310, L300.3900, L500.4050, L100.0100 ####[facility] [address] [place], [place], [id number] Urea nitrogen [Mass/Vol] 17 mg/dL Normal 4-19 [facility] Comment on above: Performed By: #### L 503.6005, M200.1000, L300.4310, L300.3900, L500.4050, L100.0100 ####[facility] [address] [place], [place], [id number] Emergency Department Summary on 01-31-2025 Emergency Department Summary Normal [facility] Eosinophil percentageOrdered By: Keith Garcia on 01-31-2025 Eosinophils/100 WBC (Bld) 1.8 % 0-5 [facility] Erythrocyte distribution wid th ratioOrdered By: Keith Garcia on 01-31-2025 Erythrocyte distribution width (RBC) [Ratio] 15.4 % High 11.6-14.6 [facility] Erythrocyte distribution wid th standard deviationOrdered By: Keith Garcia on 01-31-2025 Erythrocyte distribution width (RBC) [Ratio] 48.1 fl High 35.1-43.9 [facility] Glomerular filtration rate ( GFR) estimation/1.73 sq m using serum, plasma, or whole bOrdered By: Keith Garcia on 01-31-2025 GFR/1.73 sq M.predicted among non-blacks MDRD (S/P/Bld) [Vol rate/Area] 74 mL/min/{1.73_m2} >60 [facility] Comment on above: mL/min/1.73m2 CKD-EP I Creatinine Equation (2020) H AND P Exam - [facility] 01-31-2025 H&P Exam - Hospitalist Normal [facility] Hematocrit Auto (Bld) [Volum e fraction]Ordered By: Keith Garcia on 01-31-2025 Hematocrit (Bld) [Volume fraction] 42.7 % 40-54 [facility] Hemoglobin measurementOrdere d By: Keithsparkle Garcia on 01-31-2025 Hemoglobin (Bld) [Mass/Vol] 13.0 g/dL 13.0-16.5 [facility] Immature granulocytes/100 WB C Auto (Bld)Ordered By: Keithsparkle Garcia on 01-31-2025 Immature granulocytes/100 WBC (Bld) 0.300 % 0.0-0.9 [facility] Comment on above: IG% - Immature Granu locytes (promyelocytes, myelocytes and metamyelocytes) > 1% indicates that a LEFT SHIFT is Present. International normalized rat io (INR) calculationOrdered By: Keith Garcia on 01-31-2025 INR Coag (Bld) [Relative time] 1.1 {INR} [facility] Ketones Test strip Ql (U)Ord ered By: Keithsparkle Garcia on 01-31-2025 Ketones Ql (U) Negative Negative [facility] Laboratory - Chemistry and C hemistry - challengeOrdered By: Keithsparkle Garcia on 01-31-2025 AST [Catalytic activity/Vol] 10 U/L <38 [facility] Lactic Acidon 01-31-2025 Lactate [Moles/Vol] 2.2 mmol/L Invalid Interpretation Code 0.0-2.0 [facility] Comment on above: Order Comment: Y Result Comment: Crit ical Result(s) Called at: 01-31-25 21:52 to Kourtney Sparr by:??delores leonardo Results read back by same. Performed By: #### L 503.6005, M200.1000, L300.4310, L300.3900, L500.4050, L100.0100 ####[facility] [address] [place], [place], [id number] Lactic acid measurementOrder ed By: Keith Garcia on 01-31-2025 Lactate [Moles/Vol] 2.2 mmol/L High 0.0-2.0 [facility] Comment on above: Critical Result(s) C alled at: 01-31-25 21:52 to Kourtney Sparr by: delores leonardo Results read back by same. MCV (mean corpuscular volume ) determinationOrdered By: Keith Garcia on 01-31-2025 MCV (RBC) [Entitic vol] 86.3 fL 80-94 [facility] Mean corpuscular hemoglobin (MCH) determinationOrdered By: Keith Garcia on 01-31-2025 MCH (RBC) [Entitic mass] 26.3 pg Low 27.0-32.0 [facility] Mean corpuscular hemoglobin concentration (MCHC) determinationOrdered By: Keith Garcia on 01-31-2025 MCHC (RBC) [Mass/Vol] 30.4 g/dL Low 32-36 [facility] Mean platelet volume determi nationOrdered By: Keith Garcia on 01-31-2025 Platelet mean volume (Bld) [Entitic vol] 10.1 fL 6.2-12.0 [facility] Measurement, pHOrdered By: Jennifer Garcia on 01-31-2025 pH (Unsp spec) 7.32 [pH] Low 7.35-7.45 [facility] Microscopic analysis of urin e for red blood cells (RBC)Ordered By: Keith Garcia on 01-31-2025 Microscopic analysis of urine for red blood cells (RBC) 0 SEEN /hpf 0-5 [facility] Monocyte percentageOrdered B y: Keith Garcia on 01-31-2025 Monocytes/100 WBC (Bld) 8.8 % 0-10 [facility] Mucus LM Ql (Urine sed)Order ed By: Keith Garcia on 01-31-2025 Mucus Ql (Urine sed) 0 SEEN /hpf [facility] Neutrophil percentageOrdered By: Keith Garcia on 01-31-2025 Neutrophils/100 WBC (Bld) 67.9 % 47-70 [facility] Nitrite Test strip Ql (U)Ord ered By: Keith Garcia on 01-31-2025 Nitrite Ql (U) Negative Negative [facility] No Panel InformationOrdered By: Keith Garcia on 01-31-2025 Blood Gas Sample Site L Radial [facility] Blood Gas Specimen Type ART [facility] Blood Gas Vent Mode Not entered [facility] Oxygen Delivery Device Cannula [facility] Nucleated red blood cell per centageOrdered By: Keith Garcia on 01-31-2025 Nucleated RBC/100 WBC (Bld) [Ratio] 0 % 0-5 [facility] Partial Thromboplast Timeon 01-31-2025 aPTT Coag (Bld) [Time] 26.2 s Normal 24.1-36.2 [facility] Comment on above: Performed By: #### L 503.6005, M200.1000, L300.4310, L300.3900, L500.4050, L100.0100 ####[facility] [address] [place], [address] Platelet countOrdered By: Arielle Garcia on 01-31-2025 Platelets (Bld) [#/Vol] 239 10*3/uL 150-450 [facility] Potassium measurement (mass/ volume)Ordered By: Keith Garcia on 01-31-2025 Potassium (Unsp spec) [Mass/Vol] 4.3 mmol/L 3.3-5.1 [facility] Procalcitonin [Mass/volume] in Serum or Plasma by ImmunoassayOrdered By: Rosalva Fowler on 01-31-2025 Procalcitonin IA [Mass/Vol] 0.16 ng/mL High <0.11 [facility] Comment on above: Interpretation:<0.10 -0.25 ng/mL: Antibiotic [...] Protein Ql (U) 30 mg/dl High Negative [facility] Prothrombin Time w/INRon INR Coag (PPP) [Relative time] 1.1 {INR} Normal [facility] Comment on above: Performed By: #### L 503.6005, M200.1000, L300.4310, L300.3900, L500.4050, L100.0100 ####[facility] [address] [place], [place], [address] PT Coag (PPP) [Time] 13.9 s Normal 11.7-14.9 [facility] Comment on above: Performed By: #### L 503.6005, M200.1000, L300.4310, L300.3900, L500.4050, L100.0100 ####[facility] [address] [place], [place], [id number] Prothrombin timeOrdered By: Keith Garcia on 01-31-2025 PT Coag (PPP) [Time] 13.9 s 11.7-14.9 [facility] RBC Auto (Bld) [#/Vol]Ordere d By: Keith Garcia on 01-31-2025 RBC (Bld) [#/Vol] 4.95 10*6/uL 4.6-6.2 [facility] Respiratory pathogens detect ion panel by molecular detection methodOrdered By: Rosalva Fowler on 01-31-2025 Respiratory pathogens DNA and RNA panel DALIA+probe (Resp) Rhinovirus Abnormal [facility] Serum creatinine measurement (mass/volume)Ordered By: Keith Garcia on 01-31-2025 Creatinine [Mass/Vol] 1.17 mg/dL 0.70-1.20 [facility] Serum globulin measurementOr dered By: Keith Garcia on 01-31-2025 Globulin (S) [Mass/Vol] 2.8 g/dL 2.2-4.2 [facility] Serum glucose measurement (m ass/volume)Ordered By: Keith Garcia on 01-31-2025 Glucose [Mass/Vol] 114 mg/dL High 70-99 [facility] Serum or plasma alanine ramsey otransferase (ALT) measurementOrdered By: Keith Garcia on 01-31-2025 ALT [Catalytic activity/Vol] U/L <47 [facility] Serum or plasma albumin michael urement (mass/volume)Ordered By: Keith Garcia on 01-31-2025 Albumin [Mass/Vol] 4.3 g/dL 3.5-5.0 [facility] Serum or plasma albumin/glob ulin mass ratioOrdered By: Keith Garcia on 01-31-2025 Albumin/Globulin [Mass ratio] 1.5 {ratio} 0.9-2.4 [facility] Serum or plasma alkaline katey sphatase measurementOrdered By: Keithsparkle Garcia on 01-31-2025 ALP [Catalytic activity/Vol] 143 U/L High 40-129 [facility] Serum or plasma calcium michael urement (mass/volume)Ordered By: Keithsparkle Garcia on 01-31-2025 Calcium [Mass/Vol] 9.4 mg/dL 7.6-11.0 [facility] Serum or plasma urea nitroge n measurement (mass/volume)Ordered By: Keithsparkle Garcia on 01-31-2025 Urea nitrogen [Mass/Vol] 17 mg/dL 4-19 [facility] Shoulder min 2 Viewson 01-31 Shoulder min 2 Views Normal [facility] Sodium levelOrdered By: Keith Garcia on 01-31-2025 Sodium [Moles/Vol] 145 mmol/L 133-145 [facility] Squamous epithelial cells de tection in urine sediment by light microscopyOrdered By: Keithsparkle Garcia on 01-31-2025 Epithelial cells.squamous LM Ql (Urine sed) 0 SEEN /hpf 0-5 [facility] Total carbon dioxide measure mentOrdered By: Keithsparkle Garcia on 01-31-2025 CO2 [Moles/Vol] 22 mmol/L [facility] Total proteinOrdered By: Keithsparkle Garcia on 01-31-2025 Protein [Mass/Vol] 7.1 g/dL 5.9-8.4 [facility] Urinalysis, Completeon 01-31 BACTERIA RARE Normal None Seen [facility] Comment on above: Order Comment: COLLE CTOR TO SPECIFY Performed By: #### L 400.0001 ####[facility] [address] [place], [address] EPI,SQUAMOUS 0 SEEN Normal 0-5 [facility] Comment on above: Order Comment: CANDE CTOR TO SPECIFY Performed By: #### L 400.0001 ####[facility] [address] [place], [address] Mucus Ql (Urine sed) 0 SEEN Normal [facility] Comment on above: Order Comment: CANDE CTOR TO SPECIFY Performed By: #### L 400.0001 ####[facility] [address] [place], [address] RBC 0 SEEN Normal 0-5 [facility] Comment on above: Order Comment: CANDE CTOR TO SPECIFY Performed By: #### L 400.0001 ####[facility] [address] [place], [address] WBC 0 SEEN Normal 0-5 [facility] Comment on above: Order Comment: CANDE CTOR TO SPECIFY Performed By: #### L 400.0001 ####[facility] [address] [place], [address] Urine Legionella pneumophila antigen detectionOrdered By: Rosalva White on 01-31-2025 L. pneumophila Ag Ql (U) [facility] L. pneumophila Ag Ql (U) [facility] Urine clarityOrdered By: Keith Garcia on 01-31-2025 Clarity (U) Clear Clear [facility] Urine color determinationOrd ered By: Keith Garcia on 01-31-2025 Color (U) Yellow Yellow [facility] Urine glucose detectionOrder ed By: Keith Garcia on 01-31-2025 Glucose Ql (U) Normal mg/dl Normal [facility] Urine leukocyte esterase det ection by dipstickOrdered By: Keith Garcia on 01-31-2025 Leukocyte esterase Test strip Ql (U) 25 /ul High Negative [facility] Urine pHOrdered By: Keith villagran on 01-31-2025 pH (U) 5.0 [pH] 5.0 - 8.0 [facility] Urine sediment bacteria coun t by microscopy (number/high power field)Ordered By: Keith Garcia on 01-31-2025 Bacteria LM.HPF (Urine sed) [#/Area] RARE /hpf None Seen [facility] Urine specific gravity measu rementOrdered By: Keith Garcia on 01-31-2025 Specific gravity (U) [Rel density] 1.020 1.002-1.030 [facility] Urine urobilinogen measureme ntOrdered By: Keith Garcia on 01-31-2025 Urobilinogen Ql (U) 4 mg/dl High Normal [facility] White blood cell (WBC) count Ordered By: Keithsparkle Garcia on 01-31-2025 WBC (Bld) [#/Vol] 10.2 10*3/uL 4.4-11.0 [facility] White blood cell countOrdere d By: Keith Garcia on 01-31-2025 White blood cell count 0 SEEN /hpf 0-5 [facility] Basic Metabolic Profile (BMP )on 12-11-2024 BUN Normal 4-19 [facility] Comment on above: Result Comment: Canc elled via OM: Order cancelled - Patient discharged Performed By: #### L 500.2500, L100.0100 ####[facility] [address] [facility] [address] BUN/CRE Normal 10-20 [facility] Comment on above: Result Comment: Canc elled via OM: Order cancelled - Patient discharged Performed By: #### L 500.2500, L100.0100 ####[facility] [address] [facility] [address] Calcium Normal 7.6-11.0 [facility] Comment on above: Result Comment: Canc elled via OM: Order cancelled - Patient discharged Performed By: #### L 500.2500, L100.0100 ####[facility] [address] [place], [address] CL Normal 98-108 [facility] Comment on above: Result Comment: Canc elled via OM: Order cancelled - Patient discharged Performed By: #### L 500.2500, L100.0100 ####[facility] [address] [place], [address] CO2 Normal 21.0-32.0 [facility] Comment on above: Result Comment: Canc elled via OM: Order cancelled - Patient discharged Performed By: #### L 500.2500, L100.0100 ####[facility] [address] [place], [address] CREAT,SERUM Normal 0.70-1.20 [facility] Comment on above: Result Comment: Canc elled via OM: Order cancelled - Patient discharged Performed By: #### L 500.2500, L100.0100 ####[facility] [address] [place], [address] eGFR Normal >60 [facility] Comment on above: Result Comment: Canc elled via OM: Order cancelled - Patient discharged Performed By: #### L 500.2500, L100.0100 ####[facility] [address] [place], [address] GAP Normal 5-15 [facility] Comment on above: Result Comment: Canc elled via OM: Order cancelled - Patient discharged Performed By: #### L 500.2500, L100.0100 ####[facility] [address] [place], [address] GLU Normal 70-99 [facility] Comment on above: Result Comment: Canc elled via OM: Order cancelled - Patient discharged Performed By: #### L 500.2500, L100.0100 ####[facility] [address] [place], [address] Potassium Normal 3.3-5.1 [facility] Comment on above: Result Comment: Canc elled via OM: Order cancelled - Patient discharged Performed By: #### L 500.2500, L100.0100 ####[facility] [address] [place], [address] Basic Metabolic Profile (BMP) Normal 133-145 [facility] Comment on above: Result Comment: Canc elled via OM: Order cancelled - Patient discharged Performed By: #### L 500.2500, L100.0100 ####[facility] [address] [place], [address] CBC W/Diff, Automatedon 06- Absolute Neut Normal 2.0-7.7 [facility] Comment on above: Result Comment: Canc elled via OM: Order cancelled - Patient discharged Performed By: #### L 500.2500, L100.0100 ####[facility] [address] [place], [address] HCT Normal 40-54 [facility] Comment on above: Result Comment: Canc elled via OM: Order cancelled - Patient discharged Performed By: #### L 500.2500, L100.0100 ####[facility] [address] [place], [address] HGB Normal 13.0-16.5 [facility] Comment on above: Result Comment: Canc elled via OM: Order cancelled - Patient discharged Performed By: #### L 500.2500, L100.0100 ####[facility] [address] [place], [address] MCH Normal 27.0-32.0 [facility] Comment on above: Result Comment: Canc elled via OM: Order cancelled - Patient discharged Performed By: #### L 500.2500, L100.0100 ####[facility] [address] [place], [address] MCHC Normal 32-36 [facility] Comment on above: Result Comment: Canc elled via OM: Order cancelled - Patient discharged Performed By: #### L 500.2500, L100.0100 ####[facility] [address] [place], [address] MCV Normal 80-94 [facility] Comment on above: Result Comment: Canc elled via OM: Order cancelled - Patient discharged Performed By: #### L 500.2500, L100.0100 ####[facility] [address] [place], [address] NEUT% Normal 47-70 [facility] Comment on above: Result Comment: Canc elled via OM: Order cancelled - Patient discharged Performed By: #### L 500.2500, L100.0100 ####[facility] [address] [place], [address] PLT Normal 150-450 [facility] Comment on above: Result Comment: Canc elled via OM: Order cancelled - Patient discharged Performed By: #### L 500.2500, L100.0100 ####[facility] [address] [place], [address] RBC Normal 4.6-6.2 [facility] Comment on above: Result Comment: Canc elled via OM: Order cancelled - Patient discharged Performed By: #### L 500.2500, L100.0100 ####[facility] [address] [place], [address] RDW CV Normal 11.6-14.6 [facility] Comment on above: Result Comment: Canc elled via OM: Order cancelled - Patient discharged Performed By: #### L 500.2500, L100.0100 ####[facility] [address] [place], [address] RDW SD Normal 35.1-43.9 [facility] Comment on above: Result Comment: Canc elled via OM: Order cancelled - Patient discharged Performed By: #### L 500.2500, L100.0100 ####[facility] [address] [place], [address] WBC Normal 4.4-11.0 [facility] Comment on above: Result Comment: Canc elled via OM: Order cancelled - Patient discharged Performed By: #### L 500.2500, L100.0100 ####[facility] [address] [place], [address] Basic Metabolic Profile (BMP )on 12-10-2024 BUN Normal 4-19 [facility] Comment on above: Result Comment: Canc elled via OM: Order cancelled - Patient discharged Performed By: #### L 100.0100, L500.2500 ####[facility] [address] [place], [address] BUN/CRE Normal 10-20 [facility] Comment on above: Result Comment: Canc elled via OM: Order cancelled - Patient discharged Performed By: #### L 100.0100, L500.2500 ####[facility] [address] [place], [address] Calcium Normal 7.6-11.0 [facility] Comment on above: Result Comment: Canc elled via OM: Order cancelled - Patient discharged Performed By: #### L 100.0100, L500.2500 ####[facility] [address] [place], [address] CL Normal 98-108 [facility] Comment on above: Result Comment: Canc elled via OM: Order cancelled - Patient discharged Performed By: #### L 100.0100, L500.2500 ####[facility] [address] [place], [address] CO2 Normal 21.0-32.0 [facility] Comment on above: Result Comment: Canc elled via OM: Order cancelled - Patient discharged Performed By: #### L 100.0100, L500.2500 ####[facility] [address] [place], [address] CREAT,SERUM Normal 0.70-1.20 [facility] Comment on above: Result Comment: Canc elled via OM: Order cancelled - Patient discharged Performed By: #### L 100.0100, L500.2500 ####[facility] [address] [place], [address] eGFR Normal >60 [facility] Comment on above: Result Comment: Canc elled via OM: Order cancelled - Patient discharged Performed By: #### L 100.0100, L500.2500 ####[facility] [address] [place], [address] GAP Normal 5-15 [facility] Comment on above: Result Comment: Canc elled via OM: Order cancelled - Patient discharged Performed By: #### L 100.0100, L500.2500 ####[facility] [address] [place], [address] GLU Normal 70-99 [facility] Comment on above: Result Comment: Canc elled via OM: Order cancelled - Patient discharged Performed By: #### L 100.0100, L500.2500 ####[facility] [address] [place], [address] Potassium Normal 3.3-5.1 [facility] Comment on above: Result Comment: Canc elled via OM: Order cancelled - Patient discharged Performed By: #### L 100.0100, L500.2500 ####[facility] [address] [place], [address] Basic Metabolic Profile (BMP) Normal 133-145 [facility] Comment on above: Result Comment: Canc elled via OM: Order cancelled - Patient discharged Performed By: #### L 100.0100, L500.2500 ####[facility] [address] [place], [address] CBC W/Diff, Automatedon 06-1 Absolute Neut Normal 2.0-7.7 [facility] Comment on above: Result Comment: Canc elled via OM: Order cancelled - Patient discharged Performed By: #### L 100.0100, L500.2500 ####[facility] [address] [place], [address] HCT Normal 40-54 [facility] Comment on above: Result Comment: Canc elled via OM: Order cancelled - Patient discharged Performed By: #### L 100.0100, L500.2500 ####[facility] [address] [place], [address] HGB Normal 13.0-16.5 [facility] Comment on above: Result Comment: Canc elled via OM: Order cancelled - Patient discharged Performed By: #### L 100.0100, L500.2500 ####[facility] [address] [place], [address] MCH Normal 27.0-32.0 [facility] Comment on above: Result Comment: Canc elled via OM: Order cancelled - Patient discharged Performed By: #### L 100.0100, L500.2500 ####[facility] [address] [place], [address] MCHC Normal 32-36 [facility] Comment on above: Result Comment: Canc elled via OM: Order cancelled - Patient discharged Performed By: #### L 100.0100, L500.2500 ####[facility] [address] [place], [address] MCV Normal 80-94 [facility] Comment on above: Result Comment: Canc elled via OM: Order cancelled - Patient discharged Performed By: #### L 100.0100, L500.2500 ####[facility] [address] [place], [address] NEUT% Normal 47-70 [facility] Comment on above: Result Comment: Canc elled via OM: Order cancelled - Patient discharged Performed By: #### L 100.0100, L500.2500 ####[facility] [address] [place], [address] PLT Normal 150-450 [facility] Comment on above: Result Comment: Canc elled via OM: Order cancelled - Patient discharged Performed By: #### L 100.0100, L500.2500 ####[facility] [address] [place], [address] RBC Normal 4.6-6.2 [facility] Comment on above: Result Comment: Canc elled via OM: Order cancelled - Patient discharged Performed By: #### L 100.0100, L500.2500 ####[facility] [address] [place], [address] RDW CV Normal 11.6-14.6 [facility] Comment on above: Result Comment: Canc elled via OM: Order cancelled - Patient discharged Performed By: #### L 100.0100, L500.2500 ####[facility] [address] [place], [address] RDW SD Normal 35.1-43.9 [facility] Comment on above: Result Comment: Canc elled via OM: Order cancelled - Patient discharged Performed By: #### L 100.0100, L500.2500 ####[facility] [address] [place], [address] WBC Normal 4.4-11.0 [facility] Comment on above: Result Comment: Canc elled via OM: Order cancelled - Patient discharged Performed By: #### L 100.0100, L500.2500 ####[facility] [address] [place], [address] Basic Metabolic Profile (BMP )on 12-09-2024 BUN Normal 4-19 [facility] Comment on above: Result Comment: Canc elled via OM: Order cancelled - Patient discharged Performed By: #### L 100.0100, L500.2500 ####[facility] [address] [place], [address] BUN/CRE Normal 10-20 [facility] Comment on above: Result Comment: Canc elled via OM: Order cancelled - Patient discharged Performed By: #### L 100.0100, L500.2500 ####[facility] [address] [place], [address] Calcium Normal 7.6-11.0 [facility] Comment on above: Result Comment: Canc elled via OM: Order cancelled - Patient discharged Performed By: #### L 100.0100, L500.2500 ####[facility] [address] [place], [address] CL Normal 98-108 [facility] Comment on above: Result Comment: Canc elled via OM: Order cancelled - Patient discharged Performed By: #### L 100.0100, L500.2500 ####[facility] [address] [place], [address] CO2 Normal 21.0-32.0 [facility] Comment on above: Result Comment: Canc elled via OM: Order cancelled - Patient discharged Performed By: #### L 100.0100, L500.2500 ####[facility] [address] [place], [address] CREAT,SERUM Normal 0.70-1.20 [facility] Comment on above: Result Comment: Canc elled via OM: Order cancelled - Patient discharged Performed By: #### L 100.0100, L500.2500 ####[facility] [address] [place], [address] eGFR Normal >60 [facility] Comment on above: Result Comment: Canc elled via OM: Order cancelled - Patient discharged Performed By: #### L 100.0100, L500.2500 ####[facility] [address] [place], [address] GAP Normal 5-15 [facility] Comment on above: Result Comment: Canc elled via OM: Order cancelled - Patient discharged Performed By: #### L 100.0100, L500.2500 ####[facility] [address] [place], [address] GLU Normal 70-99 [facility] Comment on above: Result Comment: Canc elled via OM: Order cancelled - Patient discharged Performed By: #### L 100.0100, L500.2500 ####[facility] [address] [place], [address] Potassium Normal 3.3-5.1 [facility] Comment on above: Result Comment: Canc elled via OM: Order cancelled - Patient discharged Performed By: #### L 100.0100, L500.2500 ####[facility] [address] [place], [address] Basic Metabolic Profile (BMP) Normal 133-145 [facility] Comment on above: Result Comment: Canc elled via OM: Order cancelled - Patient discharged Performed By: #### L 100.0100, L500.2500 ####[facility] [address] [place], [address] CBC W/Diff, Automatedon 06-1 Absolute Neut Normal 2.0-7.7 [facility] Comment on above: Result Comment: Canc elled via OM: Order cancelled - Patient discharged Performed By: #### L 100.0100, L500.2500 ####[facility] [address] [place], [address] HCT Normal 40-54 [facility] Comment on above: Result Comment: Canc elled via OM: Order cancelled - Patient discharged Performed By: #### L 100.0100, L500.2500 ####[facility] [address] [place], [address] HGB Normal 13.0-16.5 [facility] Comment on above: Result Comment: Canc elled via OM: Order cancelled - Patient discharged Performed By: #### L 100.0100, L500.2500 ####[facility] [address] [place], [address] MCH Normal 27.0-32.0 [facility] Comment on above: Result Comment: Canc elled via OM: Order cancelled - Patient discharged Performed By: #### L 100.0100, L500.2500 ####[facility] [address] [place], [address] MCHC Normal 32-36 [facility] Comment on above: Result Comment: Canc elled via OM: Order cancelled - Patient discharged Performed By: #### L 100.0100, L500.2500 ####[facility] [address] [place], [address] MCV Normal 80-94 [facility] Comment on above: Result Comment: Canc elled via OM: Order cancelled - Patient discharged Performed By: #### L 100.0100, L500.2500 ####[facility] [address] [place], [address] NEUT% Normal 47-70 [facility] Comment on above: Result Comment: Canc elled via OM: Order cancelled - Patient discharged Performed By: #### L 100.0100, L500.2500 ####[facility] [address] [place], [address] PLT Normal 150-450 [facility] Comment on above: Result Comment: Canc elled via OM: Order cancelled - Patient discharged Performed By: #### L 100.0100, L500.2500 ####[facility] [address] [place], [address] RBC Normal 4.6-6.2 [facility] Comment on above: Result Comment: Canc elled via OM: Order cancelled - Patient discharged Performed By: #### L 100.0100, L500.2500 ####[facility] [address] [place], [address] RDW CV Normal 11.6-14.6 [facility] Comment on above: Result Comment: Canc elled via OM: Order cancelled - Patient discharged Performed By: #### L 100.0100, L500.2500 ####[facility] [address] [place], [address] RDW SD Normal 35.1-43.9 [facility] Comment on above: Result Comment: Canc elled via OM: Order cancelled - Patient discharged Performed By: #### L 100.0100, L500.2500 ####[facility] [address] [place], [address] WBC Normal 4.4-11.0 [facility] Comment on above: Result Comment: Canc elled via OM: Order cancelled - Patient discharged Performed By: #### L 100.0100, L500.2500 ####[facility] [address] [place], [address] Culture, Blood (WB)on 2024 CUB Blood cultures x2, from two different sites No growth in 5 days. Normal [facility] Comment on above: Performed By: #### L 300.3900, L300.4310, L500.4050, L503.6005, L100.0100, M200.1000 ####[facility] [address] [place], [address] Basic Metabolic Profile (BMP )on 12-08-2024 BUN Normal 4-19 [facility] Comment on above: Result Comment: Canc elled via OM: Order cancelled - Patient discharged Performed By: #### L 500.2500, L100.0100 ####[facility] [address] [place], [address] BUN/CRE Normal 10-20 [facility] Comment on above: Result Comment: Canc elled via OM: Order cancelled - Patient discharged Performed By: #### L 500.2500, L100.0100 ####[facility] [address] [place], [address] Calcium Normal 7.6-11.0 [facility] Comment on above: Result Comment: Canc elled via OM: Order cancelled - Patient discharged Performed By: #### L 500.2500, L100.0100 ####[facility] [address] [place], [address] CL Normal 98-108 [facility] Comment on above: Result Comment: Canc elled via OM: Order cancelled - Patient discharged Performed By: #### L 500.2500, L100.0100 ####[facility] [address] [place], [address] CO2 Normal 21.0-32.0 [facility] Comment on above: Result Comment: Canc elled via OM: Order cancelled - Patient discharged Performed By: #### L 500.2500, L100.0100 ####[facility] [address] [place], [address] CREAT,SERUM Normal 0.70-1.20 [facility] Comment on above: Result Comment: Canc elled via OM: Order cancelled - Patient discharged Performed By: #### L 500.2500, L100.0100 ####[facility] [address] [place], [address] eGFR Normal >60 [facility] Comment on above: Result Comment: Canc elled via OM: Order cancelled - Patient discharged Performed By: #### L 500.2500, L100.0100 ####[facility] [address] [place], [address] GAP Normal 5-15 [facility] Comment on above: Result Comment: Canc elled via OM: Order cancelled - Patient discharged Performed By: #### L 500.2500, L100.0100 ####[facility] [address] [place], [address] GLU Normal 70-99 [facility] Comment on above: Result Comment: Canc elled via OM: Order cancelled - Patient discharged Performed By: #### L 500.2500, L100.0100 ####[facility] [address] [place], [address] Potassium Normal 3.3-5.1 [facility] Comment on above: Result Comment: Canc elled via OM: Order cancelled - Patient discharged Performed By: #### L 500.2500, L100.0100 ####[facility] [address] [place], [address] Basic Metabolic Profile (BMP) Normal 133-145 [facility] Comment on above: Result Comment: Canc elled via OM: Order cancelled - Patient discharged Performed By: #### L 500.2500, L100.0100 ####[facility] [address] [place], [address] CBC W/Diff, Automatedon - Absolute Neut Normal 2.0-7.7 [facility] Comment on above: Result Comment: Canc elled via OM: Order cancelled - Patient discharged Performed By: #### L 500.2500, L100.0100 ####[facility] [address] [place], [address] HCT Normal 40-54 [facility] Comment on above: Result Comment: Canc elled via OM: Order cancelled - Patient discharged Performed By: #### L 500.2500, L100.0100 ####[facility] [address] [place], [address] HGB Normal 13.0-16.5 [facility] Comment on above: Result Comment: Canc elled via OM: Order cancelled - Patient discharged Performed By: #### L 500.2500, L100.0100 ####[facility] [address] [place], [address] MCH Normal 27.0-32.0 [facility] Comment on above: Result Comment: Canc elled via OM: Order cancelled - Patient discharged Performed By: #### L 500.2500, L100.0100 ####[facility] [address] [place], [address] MCHC Normal 32-36 [facility] Comment on above: Result Comment: Canc elled via OM: Order cancelled - Patient discharged Performed By: #### L 500.2500, L100.0100 ####[facility] [address] [place], [address] MCV Normal 80-94 [facility] Comment on above: Result Comment: Canc elled via OM: Order cancelled - Patient discharged Performed By: #### L 500.2500, L100.0100 ####[facility] [address] [place], [address] NEUT% Normal 47-70 [facility] Comment on above: Result Comment: Canc elled via OM: Order cancelled - Patient discharged Performed By: #### L 500.2500, L100.0100 ####[facility] [address] [place], [address] PLT Normal 150-450 [facility] Comment on above: Result Comment: Canc elled via OM: Order cancelled - Patient discharged Performed By: #### L 500.2500, L100.0100 ####[facility] [address] [place], [address] RBC Normal 4.6-6.2 [facility] Comment on above: Result Comment: Canc elled via OM: Order cancelled - Patient discharged Performed By: #### L 500.2500, L100.0100 ####[facility] [address] [place], [address] RDW CV Normal 11.6-14.6 [facility] Comment on above: Result Comment: Canc elled via OM: Order cancelled - Patient discharged Performed By: #### L 500.2500, L100.0100 ####[facility] [address] [place], [address] RDW SD Normal 35.1-43.9 [facility] Comment on above: Result Comment: Canc elled via OM: Order cancelled - Patient discharged Performed By: #### L 500.2500, L100.0100 ####[facility] [address] [place], [address] WBC Normal 4.4-11.0 [facility] Comment on above: Result Comment: Canc elled via OM: Order cancelled - Patient discharged Performed By: #### L 500.2500, L100.0100 ####[facility] [address] [place], [address] ENTERIC PATHOGEN PANEL STOOL on 12-08-2024 EP PANEL Normal [facility] Comment on above: Performed By: #### M 100.637 ####[facility] [address] [place], [address] Basic Metabolic Profile (BMP )on 12-07-2024 BUN Normal 4-19 [facility] Comment on above: Result Comment: Canc elled via OM: Order cancelled - Patient discharged Performed By: #### L 100.0100, L500.2500 ####[facility] [address] [place], [address] BUN/CRE Normal 10-20 [facility] Comment on above: Result Comment: Canc elled via OM: Order cancelled - Patient discharged Performed By: #### L 100.0100, L500.2500 ####[facility] [address] [place], [address] Calcium Normal 7.6-11.0 [facility] Comment on above: Result Comment: Canc elled via OM: Order cancelled - Patient discharged Performed By: #### L 100.0100, L500.2500 ####[facility] [address] [place], [address] CL Normal 98-108 [facility] Comment on above: Result Comment: Canc elled via OM: Order cancelled - Patient discharged Performed By: #### L 100.0100, L500.2500 ####[facility] [address] [place], [address] CO2 Normal 21.0-32.0 [facility] Comment on above: Result Comment: Canc elled via OM: Order cancelled - Patient discharged Performed By: #### L 100.0100, L500.2500 ####[facility] [address] [place], [address] CREAT,SERUM Normal 0.70-1.20 [facility] Comment on above: Result Comment: Canc elled via OM: Order cancelled - Patient discharged Performed By: #### L 100.0100, L500.2500 ####[facility] [address] [place], [address] eGFR Normal >60 [facility] Comment on above: Result Comment: Canc elled via OM: Order cancelled - Patient discharged Performed By: #### L 100.0100, L500.2500 ####[facility] [address] [place], [address] GAP Normal 5-15 [facility] Comment on above: Result Comment: Canc elled via OM: Order cancelled - Patient discharged Performed By: #### L 100.0100, L500.2500 ####[facility] [address] [place], [address] GLU Normal 70-99 [facility] Comment on above: Result Comment: Canc elled via OM: Order cancelled - Patient discharged Performed By: #### L 100.0100, L500.2500 ####[facility] [address] [place], [address] Potassium Normal 3.3-5.1 [facility] Comment on above: Result Comment: Canc elled via OM: Order cancelled - Patient discharged Performed By: #### L 100.0100, L500.2500 ####[facility] [address] [place], [address] Basic Metabolic Profile (BMP) Normal 133-145 [facility] Comment on above: Result Comment: Canc elled via OM: Order cancelled - Patient discharged Performed By: #### L 100.0100, L500.2500 ####[facility] [address] [place], [address] CBC W/Diff, Automatedon 06- Absolute Neut Normal 2.0-7.7 [facility] Comment on above: Result Comment: Canc elled via OM: Order cancelled - Patient discharged Performed By: #### L 100.0100, L500.2500 ####[facility] [address] [place], [address] HCT Normal 40-54 [facility] Comment on above: Result Comment: Canc elled via OM: Order cancelled - Patient discharged Performed By: #### L 100.0100, L500.2500 ####[facility] [address] [place], [address] HGB Normal 13.0-16.5 [facility] Comment on above: Result Comment: Canc elled via OM: Order cancelled - Patient discharged Performed By: #### L 100.0100, L500.2500 ####[facility] [address] [place], [address] MCH Normal 27.0-32.0 [facility] Comment on above: Result Comment: Canc elled via OM: Order cancelled - Patient discharged Performed By: #### L 100.0100, L500.2500 ####[facility] [address] [place], [address] MCHC Normal 32-36 [facility] Comment on above: Result Comment: Canc elled via OM: Order cancelled - Patient discharged Performed By: #### L 100.0100, L500.2500 ####[facility] [address] [place], [address] MCV Normal 80-94 [facility] Comment on above: Result Comment: Canc elled via OM: Order cancelled - Patient discharged Performed By: #### L 100.0100, L500.2500 ####[facility] [address] [place], [address] NEUT% Normal 47-70 [facility] Comment on above: Result Comment: Canc elled via OM: Order cancelled - Patient discharged Performed By: #### L 100.0100, L500.2500 ####[facility] [address] [place], [address] PLT Normal 150-450 [facility] Comment on above: Result Comment: Canc elled via OM: Order cancelled - Patient discharged Performed By: #### L 100.0100, L500.2500 ####[facility] [address] [place], [address] RBC Normal 4.6-6.2 [facility] Comment on above: Result Comment: Canc elled via OM: Order cancelled - Patient discharged Performed By: #### L 100.0100, L500.2500 ####[facility] [address] [place], [address] RDW CV Normal 11.6-14.6 [facility] Comment on above: Result Comment: Canc elled via OM: Order cancelled - Patient discharged Performed By: #### L 100.0100, L500.2500 ####[facility] [address] [place], [address] RDW SD Normal 35.1-43.9 [facility] Comment on above: Result Comment: Canc elled via OM: Order cancelled - Patient discharged Performed By: #### L 100.0100, L500.2500 ####[facility] [address] [place], [address] WBC Normal 4.4-11.0 [facility] Comment on above: Result Comment: Canc elled via OM: Order cancelled - Patient discharged Performed By: #### L 100.0100, L500.2500 ####[facility] [address] [place], [address] Absolute lymphocyte countOrd ered By: Michelle Angeles on 12-06-2024 Lymphocytes Auto (Unsp spec) [#/Vol] 2.54 10*3/uL 0.83-4.51 [facility] Absolute neutrophil countOrd ered By: Michelle Angeles on 12-06-2024 Neutrophils (Bld) [#/Vol] 7.2 10*3/uL 2.0-7.7 [facility] Anion gap in Serum or Plasma Ordered By: Michelle Angeles on 12-06-2024 Anion gap [Moles/Vol] 9 mmol/L 5-15 [facility] Automated lymphocyte count a s percentage of total leukocytesOrdered By: Michelle Angeles on 12-06-2024 Lymphocytes/100 WBC Auto (Unsp spec) 23.6 % 19-41 [facility] BUN/creatinine ratioOrdered By: Michelle Angeles on 12-06-2024 Urea nitrogen/Creatinine [Mass ratio] 14.5 mg/mg - [facility] Basic Metabolic Profile (BMP )on 12-06-2024 BUN/CRE 14.5 RATIO Normal - [facility] Comment on above: Performed By: #### L 500.2500, L100.0100 ####[facility] [address] [place], [address] Calcium [Mass/Vol] 9.0 mg/dL Normal 7.6-11.0 [facility] Comment on above: Performed By: #### L 500.2500, L100.0100 ####[facility] [address] [place], [address] Chloride [Moles/Vol] 106 mmol/L Normal 98-108 [facility] Comment on above: Performed By: #### L 500.2500, L100.0100 ####[facility] [address] [place], [address] CO2 [Moles/Vol] 27.0 mmol/L Normal 21.0-32.0 [facility] Comment on above: Performed By: #### L 500.2500, L100.0100 ####[facility] [address] [place], [address] Creatinine [Mass/Vol] 1.07 mg/dL Normal 0.70-1.20 [facility] Comment on above: Performed By: #### L 500.2500, L100.0100 ####[facility] [address] [place], [address] ECRCL 91.85 ml/min Normal 50-250 [facility] Comment on above: Performed By: #### L 500.2500, L100.0100 ####[facility] [address] [place], [address] GAP 9 Normal 5-15 [facility] Comment on above: Performed By: #### L 500.2500, L100.0100 ####[facility] [address] [place], [address] GFR/1.73 sq M.predicted among non-blacks MDRD (S/P/Bld) [Vol rate/Area] 82 mL/min/{1.73_m2} Normal >60 [facility] Comment on above: Result Comment: mL/m in/1.73m2 CKD-EPI Creatinine Equation (2020) Performed By: #### L 500.2500, L100.0100 ####[facility] [address] [place], [address] Glucose [Mass/Vol] 90 mg/dL Normal 70-99 [facility] Comment on above: Performed By: #### L 500.2500, L100.0100 ####[facility] [address] [place], [address] Potassium [Moles/Vol] 4.3 mmol/L Normal 3.3-5.1 [facility] Comment on above: Performed By: #### L 500.2500, L100.0100 ####[facility] [address] [place], [address] Sodium [Moles/Vol] 142 mmol/L Normal 133-145 [facility] Comment on above: Performed By: #### L 500.2500, L100.0100 ####[facility] [address] [place], [address] Urea nitrogen [Mass/Vol] 16 mg/dL Normal 4-19 [facility] Comment on above: Performed By: #### L 500.2500, L100.0100 ####[facility] [address] [place], [address] Basophil percentageOrdered B y: Michelle Angeles on 12-06-2024 Basophils/100 WBC (Bld) 0.3 % 0-1 [facility] Bedside Glucoseon 12-06-2024 FINGERSTICK GLU 90 mg/dL Normal 74-106 [facility] Comment on above: Result Comment: JEFFREY GEMENT OF PATIENT CARE PER NURSING PROTOCOL Performed By: #### L 501.080 ####[facility] [address] [place], [address] FINGERSTICK GLU 84 mg/dL Normal 74-106 [facility] Comment on above: Result Comment: JEFFREY GEMENT OF PATIENT CARE PER NURSING PROTOCOL Performed By: #### L 501.080 ####[facility] [address] [place], [address] CBC W/Diff, Automatedon 06- Absolute Lymph 2.54 X10 3/uL Normal 0.83-4.51 [facility] Comment on above: Performed By: #### L 500.2500, L100.0100 ####[facility] [address] [place], [address] Absolute Neut 7.2 X10 3/uL Normal 2.0-7.7 [facility] Comment on above: Performed By: #### L 500.2500, L100.0100 ####[facility] [address] [place], [address] Basophils/100 WBC (Bld) 0.3 % Normal 0-1 [facility] Comment on above: Performed By: #### L 500.2500, L100.0100 ####[facility] [address] [place], [address] Eosinophils/100 WBC (Bld) 1.2 % Normal 0-5 [facility] Comment on above: Performed By: #### L 500.2500, L100.0100 ####[facility] [address] [place], [address] Erythrocyte distribution width (RBC) [Ratio] 14.5 % Normal 11.6-14.6 [facility] Comment on above: Performed By: #### L 500.2500, L100.0100 ####[facility] [address] [place], [address] Hematocrit (Bld) [Volume fraction] 37.8 % Low 40-54 [facility] Comment on above: Performed By: #### L 500.2500, L100.0100 ####[facility] [address] [place], [address] Hemoglobin (Bld) [Mass/Vol] 11.7 g/dL Low 13.0-16.5 [facility] Comment on above: Performed By: #### L 500.2500, L100.0100 ####[facility] [address] [place], [address] IG% 0.300 Normal 0.0-0.9 [facility] Comment on above: Result Comment: IG% - Immature Granulocytes (promyelocytes, myelocytes andmetamyelocytes) > 1% indicates that a LEFT SHIFT is Present. Performed By: #### L 500.2500, L100.0100 ####[facility] [address] [place], [address] Lymphocytes/100 WBC (Bld) 23.6 % Normal 19-41 [facility] Comment on above: Performed By: #### L 500.2500, L100.0100 ####[facility] [address] [place], [address] MCH (RBC) [Entitic mass] 26.5 pg Low 27.0-32.0 [facility] Comment on above: Performed By: #### L 500.2500, L100.0100 ####[facility] [address] [place], [address] MCHC (RBC) [Mass/Vol] 31.0 g/dL Low 32-36 [facility] Comment on above: Performed By: #### L 500.2500, L100.0100 ####[facility] [address] [place], [address] MCV (RBC) [Entitic vol] 85.7 fL Normal 80-94 [facility] Comment on above: Performed By: #### L 500.2500, L100.0100 ####[facility] [address] [place], [address] Monocytes/100 WBC (Bld) 8.0 % Normal 0-10 [facility] Comment on above: Performed By: #### L 500.2500, L100.0100 ####[facility] [address] [place], [address] Neutrophils/100 WBC (Bld) 66.6 % Normal 47-70 [facility] Comment on above: Performed By: #### L 500.2500, L100.0100 ####[facility] [address] [place], [address] Nucleated RBC (Bld) [#/Vol] 0 10*3/uL Normal 0-5 [facility] Comment on above: Performed By: #### L 500.2500, L100.0100 ####[facility] [address] [place], [address] Platelet mean volume (Bld) [Entitic vol] 10.0 fL Normal 6.2-12.0 [facility] Comment on above: Performed By: #### L 500.2500, L100.0100 ####[facility] [address] [place], [address] Platelets (Bld) [#/Vol] 222 10*3/uL Normal 150-450 [facility] Comment on above: Performed By: #### L 500.2500, L100.0100 ####[facility] [address] [place], [address] RBC (Bld) [#/Vol] 4.41 10*6/uL Low 4.6-6.2 [facility] Comment on above: Performed By: #### L 500.2500, L100.0100 ####[facility] [address] [place], [address] RDW SD 45.2 fl High 35.1-43.9 [facility] Comment on above: Performed By: #### L 500.2500, L100.0100 ####[facility] [address] [place], [address] WBC (Bld) [#/Vol] 10.8 10*3/uL Normal 4.4-11.0 [facility] Comment on above: Performed By: #### L 500.2500, L100.0100 ####[facility] [address] [place], [address] Carbon dioxide, total [Moles /volume] in Central venous bloodOrdered By: Michelle Angeles on 12-06-2024 CO2 [Moles/Vol] 27.0 mmol/L 21.0-32.0 [facility] Chloride assayOrdered By: Na na Bridgette on 12-06-2024 Chloride [Moles/Vol] 106 mmol/L 98-108 [facility] Eosinophil percentageOrdered By: Michelle Angeles on 12-06-2024 Eosinophils/100 WBC (Bld) 1.2 % 0-5 [facility] Erythrocyte distribution wid th ratioOrdered By: Michelle Angeles on 12-06-2024 Erythrocyte distribution width (RBC) [Ratio] 14.5 % 11.6-14.6 [facility] Erythrocyte distribution wid th standard deviationOrdered By: Michelletanisha Angeles on 12-06-2024 Erythrocyte distribution width (RBC) [Ratio] 45.2 fl High 35.1-43.9 [facility] Glomerular filtration rate ( GFR) estimation/1.73 sq m using serum, plasma, or whole bOrdered By: Michelle Angeles on 12-06-2024 GFR/1.73 sq M.predicted among non-blacks MDRD (S/P/Bld) [Vol rate/Area] 82 mL/min/{1.73_m2} >60 [facility] Comment on above: mL/min/1.73m2 CKD-EP I Creatinine Equation (2020) Glucose measurement at bedsi deOrdered By: Michelle Angeles on 12-06-2024 Glucose [Mass/Vol] 90 mg/dL 74-106 [facility] Comment on above: MANAGEMENT OF PATIEN T CARE PER NURSING PROTOCOL Hematocrit Auto (Bld) [Volum e fraction]Ordered By: Michelle Angeles on 12-06-2024 Hematocrit (Bld) [Volume fraction] 37.8 % Low 40-54 [facility] Hemoglobin measurementOrdere d By: Michelle Angeles on 12-06-2024 Hemoglobin (Bld) [Mass/Vol] 11.7 g/dL Low 13.0-16.5 [facility] Immature granulocytes/100 WB C Auto (Bld)Ordered By: Michelle Angeles on 12-06-2024 Immature granulocytes/100 WBC (Bld) 0.300 % 0.0-0.9 [facility] Comment on above: IG% - Immature Granu locytes (promyelocytes, myelocytes and metamyelocytes) > 1% indicates that a LEFT SHIFT is Present. MCV (mean corpuscular volume ) determinationOrdered By: Michelle Angeles on 12-06-2024 MCV (RBC) [Entitic vol] 85.7 fL 80-94 [facility] Mean corpuscular hemoglobin (MCH) determinationOrdered By: Michelle Angeles on 12-06-2024 MCH (RBC) [Entitic mass] 26.5 pg Low 27.0-32.0 [facility] Mean corpuscular hemoglobin concentration (MCHC) determinationOrdered By: Michelle Angeles on 12-06-2024 MCHC (RBC) [Mass/Vol] 31.0 g/dL Low 32-36 [facility] Mean platelet volume determi nationOrdered By: Michelle Angeles on 12-06-2024 Platelet mean volume (Bld) [Entitic vol] 10.0 fL 6.2-12.0 [facility] Monocyte percentageOrdered B y: Michelle Angeles on 12-06-2024 Monocytes/100 WBC (Bld) 8.0 % 0-10 [facility] Neutrophil percentageOrdered By: Michelle Angeles on 12-06-2024 Neutrophils/100 WBC (Bld) 66.6 % 47-70 [facility] Nucleated red blood cell per centageOrdered By: Michelle Angeles on 12-06-2024 Nucleated RBC/100 WBC (Bld) [Ratio] 0 % 0-5 [facility] Platelet countOrdered By: Griselda Angeles on 12-06-2024 Platelets (Bld) [#/Vol] 222 10*3/uL 150-450 [facility] Potassium measurement (mass/ volume)Ordered By: Michelle Angeles on 12-06-2024 Potassium (Unsp spec) [Mass/Vol] 4.3 mmol/L 3.3-5.1 [facility] RBC Auto (Bld) [#/Vol]Ordere d By: Michelle Angeles on 12-06-2024 RBC (Bld) [#/Vol] 4.41 10*6/uL Low 4.6-6.2 [facility] Serum creatinine measurement (mass/volume)Ordered By: Michelle Angeles on 12-06-2024 Creatinine [Mass/Vol] 1.07 mg/dL 0.70-1.20 [facility] Serum glucose measurement (m ass/volume)Ordered By: Michelle Angeles on 12-06-2024 Glucose [Mass/Vol] 90 mg/dL 70-99 [facility] Serum or plasma calcium michael urement (mass/volume)Ordered By: Michelle Angeles on 12-06-2024 Calcium [Mass/Vol] 9.0 mg/dL 7.6-11.0 [facility] Serum or plasma urea nitroge n measurement (mass/volume)Ordered By: Michelle Angeles on 12-06-2024 Urea nitrogen [Mass/Vol] 16 mg/dL 4-19 [facility] Sodium levelOrdered By: Michelle Angeles on 12-06-2024 Sodium [Moles/Vol] 142 mmol/L 133-145 [facility] Urine Cultureon 12-06-2024 URC Normal [facility] Comment on above: Performed By: #### L 400.0001, M100.2200 ####[facility] [address] [facility] [place], [place], [id number] White blood cell (WBC) count Ordered By: Michelle Anglees on 12-06-2024 WBC (Bld) [#/Vol] 10.8 10*3/uL 4.4-11.0 [facility] Basic Metabolic Profile (BMP )on 12-05-2024 BUN/CRE 18.3 RATIO Normal 10-20 [facility] Comment on above: Performed By: #### L 100.0100, L500.2500 ####[facility] [address] [facility], [address] Calcium [Mass/Vol] 8.6 mg/dL Normal 7.6-11.0 [facility] Comment on above: Performed By: #### L 100.0100, L500.2500 ####[facility] [address] [place], [address] Chloride [Moles/Vol] 108 mmol/L Normal 98-108 [facility] Comment on above: Performed By: #### L 100.0100, L500.2500 ####[facility] [address] [place], [address] CO2 [Moles/Vol] 24.2 mmol/L Normal 21.0-32.0 [facility] Comment on above: Performed By: #### L 100.0100, L500.2500 ####[facility] [address] [place], [address] Creatinine [Mass/Vol] 0.94 mg/dL Normal 0.70-1.20 [facility] Comment on above: Performed By: #### L 100.0100, L500.2500 ####[facility] [address] [place], [address] ECRCL 104.55 ml/min Normal 50-250 [facility] Comment on above: Performed By: #### L 100.0100, L500.2500 ####[facility] [address] [place], [address] GAP 9 Normal 5-15 [facility] Comment on above: Performed By: #### L 100.0100, L500.2500 ####[facility] [address] [place], [address] GFR/1.73 sq M.predicted among non-blacks MDRD (S/P/Bld) [Vol rate/Area] 96 mL/min/{1.73_m2} Normal >60 [facility] Comment on above: Result Comment: mL/m in/1.73m2 CKD-EPI Creatinine Equation (2020) Performed By: #### L 100.0100, L500.2500 ####[facility] [address] [place], [address] Glucose [Mass/Vol] 147 mg/dL High 70-99 [facility] Comment on above: Performed By: #### L 100.0100, L500.2500 ####[facility] [address] [place], [address] Potassium [Moles/Vol] 4.9 mmol/L Normal 3.3-5.1 [facility] Comment on above: Result Comment: Hemo lysis present, Results??could be affected.?? Performed By: #### L 100.0100, L500.2500 ####[facility] [address] [place], [address] Sodium [Moles/Vol] 141 mmol/L Normal 133-145 [facility] Comment on above: Performed By: #### L 100.0100, L500.2500 ####[facility] [address] [place], [address] Urea nitrogen [Mass/Vol] 17 mg/dL Normal 4-19 [facility] Comment on above: Performed By: #### L 100.0100, L500.2500 ####[facility] [address] [place], [address] Bedside Glucoseon 12-05-2024 FINGERSTICK GLU 116 mg/dL High 74-106 [facility] Comment on above: Result Comment: JEFFREY ALYSSAENT OF PATIENT CARE PER NURSING PROTOCOL Performed By: #### L 501.080 ####[facility] [address] [place], [address] CBC W/Diff, Automatedon 11-26 Absolute Lymph 1.35 X10 3/uL Normal 0.83-4.51 [facility] Comment on above: Performed By: #### L 100.0100, L500.2500 ####[facility] [address] [place], [address] Absolute Neut 9.1 X10 3/uL High 2.0-7.7 [facility] Comment on above: Performed By: #### L 100.0100, L500.2500 ####[facility] [address] [place], [address] Basophils/100 WBC (Bld) 0.2 % Normal 0-1 [facility] Comment on above: Performed By: #### L 100.0100, L500.2500 ####[facility] [address] [place], [address] Eosinophils/100 WBC (Bld) 0.1 % Normal 0-5 [facility] Comment on above: Performed By: #### L 100.0100, L500.2500 ####[facility] [address] [place], [address] Erythrocyte distribution width (RBC) [Ratio] 14.7 % High 11.6-14.6 [facility] Comment on above: Performed By: #### L 100.0100, L500.2500 ####[facility] [address] [place], [address] Hematocrit (Bld) [Volume fraction] 37.5 % Low 40-54 [facility] Comment on above: Performed By: #### L 100.0100, L500.2500 ####[facility] [address] [place], [address] Hemoglobin (Bld) [Mass/Vol] 11.5 g/dL Low 13.0-16.5 [facility] Comment on above: Performed By: #### L 100.0100, L500.2500 ####[facility] [address] [place], [address] IG% 0.300 Normal 0.0-0.9 [facility] Comment on above: Result Comment: IG% - Immature Granulocytes (promyelocytes, myelocytes andmetamyelocytes) > 1% indicates that a LEFT SHIFT is Present. Performed By: #### L 100.0100, L500.2500 ####[facility] [address] [place], [address] Lymphocytes/100 WBC (Bld) 11.6 % Low 19-41 [facility] Comment on above: Performed By: #### L 100.0100, L500.2500 ####[facility] [address] [place], [address] MCH (RBC) [Entitic mass] 26.4 pg Low 27.0-32.0 [facility] Comment on above: Performed By: #### L 100.0100, L500.2500 ####[facility] [address] [place], [address] MCHC (RBC) [Mass/Vol] 30.7 g/dL Low 32-36 [facility] Comment on above: Performed By: #### L 100.0100, L500.2500 ####[facility] [address] [place], [address] MCV (RBC) [Entitic vol] 86.2 fL Normal 80-94 [facility] Comment on above: Performed By: #### L 100.0100, L500.2500 ####[facility] [address] [place], [address] Monocytes/100 WBC (Bld) 9.4 % Normal 0-10 [facility] Comment on above: Performed By: #### L 100.0100, L500.2500 ####[facility] [address] [place], [address] Neutrophils/100 WBC (Bld) 78.4 % High 47-70 [facility] Comment on above: Performed By: #### L 100.0100, L500.2500 ####[facility] [address] [place], [address] Nucleated RBC (Bld) [#/Vol] 0 10*3/uL Normal 0-5 [facility] Comment on above: Performed By: #### L 100.0100, L500.2500 ####[facility] [address] [place], [address] Platelet mean volume (Bld) [Entitic vol] 10.4 fL Normal 6.2-12.0 [facility] Comment on above: Performed By: #### L 100.0100, L500.2500 ####[facility] [address] [place], [address] Platelets (Bld) [#/Vol] 217 10*3/uL Normal 150-450 [facility] Comment on above: Performed By: #### L 100.0100, L500.2500 ####[facility] [address] [place], [address] RBC (Bld) [#/Vol] 4.35 10*6/uL Low 4.6-6.2 [facility] Comment on above: Performed By: #### L 100.0100, L500.2500 ####[facility] [address] [place], [address] RDW SD 46.1 fl High 35.1-43.9 [facility] Comment on above: Performed By: #### L 100.0100, L500.2500 ####[facility] [address] [place], [address] WBC (Bld) [#/Vol] 11.7 10*3/uL High 4.4-11.0 [facility] Comment on above: Performed By: #### L 100.0100, L500.2500 ####[facility] [address] [place], [address] Chest 1 View (Portable)on Chest 1 View (Portable) Normal [facility] Consultation - Intensiviston 12-05-2024 Consultation - Scorer Single Normal [facility] Electrocardiogram reportOrde red By: German Reyna on 12-05-2024 EKG study [facility] Cardiovascular Services [address] [place] [address] 12 Lead EKG 12/04/24 1034 MR#: [id number] Acct: [id number] Name: RIGO GARCIA Rep #:[id number] : 1970 54 From: German ayers MD [...] ischemia Abnormal ECG Confirmed by German Reyna ([id number]), publication editor NGUYEN HOUSER ([id number]) on 12/05/2024 11:11:41 AM Referred By: JESUS Confirmed By: German Reyna 12/05/24 1111 Date _ German Reyna MD CC: Dr. Franco Benites DO; Dr. Michelle Angeles MD; Dr. Mame Bright MD~ Signed [facility] Other 12 Lead EKGon 12-04-2024 12 Lead EKG Normal [facility] Absolute lymphocyte countOrd ered By: Franco Benites on 12-04-2024 Lymphocytes Auto (Unsp spec) [#/Vol] 0.75 10*3/uL Low 0.83-4.51 [facility] Absolute neutrophil countOrd ered By: Franco Benites on 12-04-2024 Neutrophils (Bld) [#/Vol] 10.2 10*3/uL High 2.0-7.7 [facility] Activated partial thrombopla stin time (aPTT) in platelet poor plasma by coagulation aOrdered By: Franco Benites on 12-04-2024 aPTT Coag (PPP) [Time] 23.7 s Low 24.1-36.2 [facility] Anion gap in Serum or Plasma Ordered By: Franco Benites on 12-04-2024 Anion gap [Moles/Vol] 17 mmol/L High 5-15 [facility] Automated lymphocyte count a s percentage of total leukocytesOrdered By: Franco Delmis on 12-04-2024 Lymphocytes/100 WBC Auto (Unsp spec) 6.3 % Low 19-41 [facility] BUN/creatinine ratioOrdered By: Franco Delmis on 12-04-2024 Urea nitrogen/Creatinine [Mass ratio] 14.8 mg/mg 10-20 [facility] Basophil percentageOrdered B y: Franco Benites on 12-04-2024 Basophils/100 WBC (Bld) 0.2 % 0-1 [facility] Bilirubin Test strip Ql (U)O rdered By: Franco Benites on 12-04-2024 Bilirubin Ql (U) Negative Negative [facility] Bilirubin, totalOrdered By: Franco Benites on 12-04-2024 Bilirubin [Mass/Vol] 0.37 mg/dL 0.00-1.30 [facility] Blood Gases by CPSon 025 Base excess Calc (Bld) [Moles/Vol] 8 mmol/L High -2 to +2 [facility] Comment on above: Performed By: #### L 8999.799 ####[facility] [address] [place], [place], [id number] Blood Gas Type ART Normal [facility] Comment on above: Performed By: #### L 8999.0800 ####[facility] [address] [place], [address] CO2 [Moles/Vol] 35 mmol/L Normal [facility] Comment on above: Performed By: #### L 0.0800 ####[facility] [address] [place], [address] FI02 8.0 Normal [facility] Comment on above: Performed By: #### L 0.0800 ####[facility] [address] [place], [address] HCO3 (Bld) [Moles/Vol] 32.9 mmol/L High 22-26 [facility] Comment on above: Performed By: #### L 0.0800 ####[facility] [address] [place], [address] Mode Not entered [facility] Comment on above: Performed By: #### L 0.0800 ####[facility] [address] [place], [address] O2 Delivery Dev Not entered [facility] Comment on above: Performed By: #### L 0.0800 ####[facility] [address] [place], [address] pCO2 57.9 mmHg High 35-45 [facility] Comment on above: Performed By: #### L 0.0800 ####[facility] [address] [place], [address] pH (Bld) 7.36 [pH] Normal 7.35-7.45 [facility] Comment on above: Performed By: #### L 9000.0800 ####[facility] [address] [place], [address] PO2 66 mmHG Low 75-100 [facility] Comment on above: Performed By: #### L 0.0800 ####[facility] [address] [place], [address] SITE L Brach Normal [facility] Comment on above: Performed By: #### L 0.0800 ####[facility] [address] [place], [address] SO2 91 Low 95-99 [facility] Comment on above: Performed By: #### L 0.0800 ####[facility] [address] [place], [address] Blood base excess determinat ionOrdered By: Franco Benites on 12-04-2024 Base excess Calc (BldV) [Moles/Vol] 8 mmol/L High -2-2 [facility] Blood bicarbonate measuremen tOrdered By: Franco Benites on 12-04-2024 HCO3 (Bld) [Moles/Vol] 32.9 mmol/L High 22-26 [facility] Blood cultureOrdered By: Ulysses Benites on 12-04-2024 Bacteria identified Cx Nom (Bld) No growth in 5 days. [facility] Bacteria identified Cx Nom (Bld) No growth in 5 days. [facility] CBC W/Diff, Automatedon 06-0 Absolute Lymph 0.75 X10 3/uL Low 0.83-4.51 [facility] Comment on above: Performed By: #### L 300.3900, L300.4310, L500.4050, L503.6005, L100.0100, M200.1000 ####[facility] [address] [place], [address] Absolute Neut 10.2 X10 3/uL High 2.0-7.7 [facility] Comment on above: Performed By: #### L 300.3900, L300.4310, L500.4050, L503.6005, L100.0100, M200.1000 ####[facility] [address] [place], [address] Basophils/100 WBC (Bld) 0.2 % Normal 0-1 [facility] Comment on above: Performed By: #### L 300.3900, L300.4310, L500.4050, L503.6005, L100.0100, M200.1000 ####[facility] [address] [place], [address] Eosinophils/100 WBC (Bld) 0.5 % Normal 0-5 [facility] Comment on above: Performed By: #### L 300.3900, L300.4310, L500.4050, L503.6005, L100.0100, M200.1000 ####[facility] [address] [place], [address] Erythrocyte distribution width (RBC) [Ratio] 14.6 % Normal 11.6-14.6 [facility] Comment on above: Performed By: #### L 300.3900, L300.4310, L500.4050, L503.6005, L100.0100, M200.1000 ####[facility] [address] [place], [address] Hematocrit (Bld) [Volume fraction] 43.2 % Normal 40-54 [facility] Comment on above: Performed By: #### L 300.3900, L300.4310, L500.4050, L503.6005, L100.0100, M200.1000 ####[facility] [address] [place], [address] Hemoglobin (Bld) [Mass/Vol] 13.2 g/dL Normal 13.0-16.5 [facility] Comment on above: Performed By: #### L 300.3900, L300.4310, L500.4050, L503.6005, L100.0100, M200.1000 ####[facility] [address] [place], [address] IG% 0.300 Normal 0.0-0.9 [facility] Comment on above: Result Comment: IG% - Immature Granulocytes (promyelocytes, myelocytes andmetamyelocytes) > 1% indicates that a LEFT SHIFT is Present. Performed By: #### L 300.3900, L300.4310, L500.4050, L503.6005, L100.0100, M200.1000 ####[facility] [address] [place], [address] Lymphocytes/100 WBC (Bld) 6.3 % Low 19-41 [facility] Comment on above: Performed By: #### L 300.3900, L300.4310, L500.4050, L503.6005, L100.0100, M200.1000 ####[facility] [address] [place], [address] MCH (RBC) [Entitic mass] 26.1 pg Low 27.0-32.0 [facility] Comment on above: Performed By: #### L 300.3900, L300.4310, L500.4050, L503.6005, L100.0100, M200.1000 ####[facility] [address] [place], [address] MCHC (RBC) [Mass/Vol] 30.6 g/dL Low 32-36 [facility] Comment on above: Performed By: #### L 300.3900, L300.4310, L500.4050, L503.6005, L100.0100, M200.1000 ####[facility] [address] [place], [address] MCV (RBC) [Entitic vol] 85.4 fL Normal 80-94 [facility] Comment on above: Performed By: #### L 300.3900, L300.4310, L500.4050, L503.6005, L100.0100, M200.1000 ####[facility] [address] [place], [address] Monocytes/100 WBC (Bld) 6.8 % Normal 0-10 [facility] Comment on above: Performed By: #### L 300.3900, L300.4310, L500.4050, L503.6005, L100.0100, M200.1000 ####[facility] [address] [place], [address] Neutrophils/100 WBC (Bld) 85.9 % High 47-70 [facility] Comment on above: Performed By: #### L 300.3900, L300.4310, L500.4050, L503.6005, L100.0100, M200.1000 ####[facility] [address] [place], [address] Nucleated RBC (Bld) [#/Vol] 0 10*3/uL Normal 0-5 [facility] Comment on above: Performed By: #### L 300.3900, L300.4310, L500.4050, L503.6005, L100.0100, M200.1000 ####[facility] [address] [place], [address] Platelet mean volume (Bld) [Entitic vol] 9.6 fL Normal 6.2-12.0 [facility] Comment on above: Performed By: #### L 300.3900, L300.4310, L500.4050, L503.6005, L100.0100, M200.1000 ####[facility] [address] [place], [address] Platelets (Bld) [#/Vol] 236 10*3/uL Normal 150-450 [facility] Comment on above: Performed By: #### L 300.3900, L300.4310, L500.4050, L503.6005, L100.0100, M200.1000 ####[facility] [address] [place], [address] RBC (Bld) [#/Vol] 5.06 10*6/uL Normal 4.6-6.2 [facility] Comment on above: Performed By: #### L 300.3900, L300.4310, L500.4050, L503.6005, L100.0100, M200.1000 ####[facility] [address] [place], [address] RDW SD 45.2 fl High 35.1-43.9 [facility] Comment on above: Performed By: #### L 300.3900, L300.4310, L500.4050, L503.6005, L100.0100, M200.1000 ####[facility] [address] [place], [address] WBC (Bld) [#/Vol] 11.9 10*3/uL High 4.4-11.0 [facility] Comment on above: Performed By: #### L 300.3900, L300.4310, L500.4050, L503.6005, L100.0100, M200.1000 ####[facility] [address] [place], [address] Carbon dioxide, total [Moles /volume] in Central venous bloodOrdered By: Franco Benites on 12-04-2024 CO2 [Moles/Vol] 24.1 mmol/L 21.0-32.0 [facility] Chest 1 Viewon 12-04-2024 Chest 1 View Normal [facility] Chloride assayOrdered By: Adolph Benites on 12-04-2024 Chloride [Moles/Vol] 100 mmol/L 98-108 [facility] Comprehensive Metabolic Prof ilon 12-04-2024 Albumin [Mass/Vol] 4.3 g/dL Normal 3.5-5.0 [facility] Comment on above: Performed By: #### L 300.3900, L300.4310, L500.4050, L503.6005, L100.0100, M200.1000 ####[facility] [address] [place], [address] Albumin/Globulin [Mass ratio] 1.4 {ratio} Normal 0.9-2.4 [facility] Comment on above: Performed By: #### L 300.3900, L300.4310, L500.4050, L503.6005, L100.0100, M200.1000 ####[facility] [address] [place], [address] ALK PHOS 148 U/L High 40-129 [facility] Comment on above: Performed By: #### L 300.3900, L300.4310, L500.4050, L503.6005, L100.0100, M200.1000 ####[facility] [address] [place], [address] ALT [Catalytic activity/Vol] 7 U/L Normal <=46 [facility] Comment on above: Performed By: #### L 300.3900, L300.4310, L500.4050, L503.6005, L100.0100, M200.1000 ####[facility] [address] [place], [address] AST [Catalytic activity/Vol] 17 U/L Normal <=37 [facility] Comment on above: Performed By: #### L 300.3900, L300.4310, L500.4050, L503.6005, L100.0100, M200.1000 ####[facility] [address] [place], [address] Bilirubin [Mass/Vol] 0.37 mg/dL Normal 0.00-1.30 [facility] Comment on above: Performed By: #### L 300.3900, L300.4310, L500.4050, L503.6005, L100.0100, M200.1000 ####[facility] [address] [place], [address] BUN/CRE 14.8 RATIO Normal 10-20 [facility] Comment on above: Performed By: #### L 300.3900, L300.4310, L500.4050, L503.6005, L100.0100, M200.1000 ####[facility] [address] [place], [address] Calcium [Mass/Vol] 9.6 mg/dL Normal 7.6-11.0 [facility] Comment on above: Performed By: #### L 300.3900, L300.4310, L500.4050, L503.6005, L100.0100, M200.1000 ####[facility] [address] [place], [address] Chloride [Moles/Vol] 100 mmol/L Normal 98-108 [facility] Comment on above: Performed By: #### L 300.3900, L300.4310, L500.4050, L503.6005, L100.0100, M200.1000 ####[facility] [address] [place], [address] CO2 [Moles/Vol] 24.1 mmol/L Normal 21.0-32.0 [facility] Comment on above: Performed By: #### L 300.3900, L300.4310, L500.4050, L503.6005, L100.0100, M200.1000 ####[facility] [address] [place], [address] Creatinine [Mass/Vol] 1.15 mg/dL Normal 0.70-1.20 [facility] Comment on above: Performed By: #### L 300.3900, L300.4310, L500.4050, L503.6005, L100.0100, M200.1000 ####[facility] [address] [place], [address] ECRCL 86.37 ml/min Normal 50-250 [facility] Comment on above: Performed By: #### L 300.3900, L300.4310, L500.4050, L503.6005, L100.0100, M200.1000 ####[facility] [address] [place], [address] GAP 17 High 5-15 [facility] Comment on above: Performed By: #### L 300.3900, L300.4310, L500.4050, L503.6005, L100.0100, M200.1000 ####[facility] [address] [place], [address] GFR/1.73 sq M.predicted among non-blacks MDRD (S/P/Bld) [Vol rate/Area] 76 mL/min/{1.73_m2} Normal >60 [facility] Comment on above: Result Comment: mL/m in/1.73m2 CKD-EPI Creatinine Equation (2020) Performed By: #### L 300.3900, L300.4310, L500.4050, L503.6005, L100.0100, M200.1000 ####[facility] [address] [place], [address] Globulin (S) [Mass/Vol] 3.0 g/dL Normal 2.2-4.2 [facility] Comment on above: Performed By: #### L 300.3900, L300.4310, L500.4050, L503.6005, L100.0100, M200.1000 ####[facility] [address] [place], [address] Glucose [Mass/Vol] 112 mg/dL High 70-99 [facility] Comment on above: Performed By: #### L 300.3900, L300.4310, L500.4050, L503.6005, L100.0100, M200.1000 ####[facility] [address] [place], [address] Potassium [Moles/Vol] 4.3 mmol/L Normal 3.3-5.1 [facility] Comment on above: Performed By: #### L 300.3900, L300.4310, L500.4050, L503.6005, L100.0100, M200.1000 ####[facility] [address] [place], [address] Sodium [Moles/Vol] 141 mmol/L Normal 133-145 [facility] Comment on above: Performed By: #### L 300.3900, L300.4310, L500.4050, L503.6005, L100.0100, M200.1000 ####[facility] [address] [place], [address] T PROT 7.3 g/dL Normal 5.9-8.4 [facility] Comment on above: Performed By: #### L 300.3900, L300.4310, L500.4050, L503.6005, L100.0100, M200.1000 ####[facility] [address] [place], [address] Urea nitrogen [Mass/Vol] 17 mg/dL Normal 4-19 [facility] Comment on above: Performed By: #### L 300.3900, L300.4310, L500.4050, L503.6005, L100.0100, M200.1000 ####[facility] [address] [place], [address] Emergency Department Summary on 12-04-2024 Emergency Department Summary Normal [facility] Eosinophil percentageOrdered By: Franco Benites on 12-04-2024 Eosinophils/100 WBC (Bld) 0.5 % 0-5 [facility] Erythrocyte distribution wid th ratioOrdered By: Franco Benites on 12-04-2024 Erythrocyte distribution width (RBC) [Ratio] 14.6 % 11.6-14.6 [facility] Erythrocyte distribution wid th standard deviationOrdered By: Franco Rodriguez on 12-04-2024 Erythrocyte distribution width (RBC) [Ratio] 45.2 fl High 35.1-43.9 [facility] Glomerular filtration rate ( GFR) estimation/1.73 sq m using serum, plasma, or whole bOrdered By: Franco Benites on 12-04-2024 GFR/1.73 sq M.predicted among non-blacks MDRD (S/P/Bld) [Vol rate/Area] 76 mL/min/{1.73_m2} >60 [facility] Comment on above: mL/min/1.73m2 CKD-EP I Creatinine Equation (2020) H AND P Exam - Hospitaliston 12-04-2024 H&P Exam - Hospitalist Normal [facility] Hematocrit Auto (Bld) [Volum e fraction]Ordered By: [facility] on [facility]-2024 Hematocrit (Bld) [Volume fraction] 43.2 % 40-54 [facility] Hemoglobin measurementOrdere d By: Franco Benites on 12-04-2024 Hemoglobin (Bld) [Mass/Vol] 13.2 g/dL 13.0-16.5 [facility] Immature granulocytes/100 WB C Auto (Bld)Ordered By: Franco Benites on 12-04-2024 Immature granulocytes/100 WBC (Bld) 0.300 % 0.0-0.9 [facility] Comment on above: IG% - Immature Granu locytes (promyelocytes, myelocytes and metamyelocytes) > 1% indicates that a LEFT SHIFT is Present. International normalized rat io (INR) calculationOrdered By: Franco Benites on 12-04-2024 INR Coag (Bld) [Relative time] 1.0 {INR} [facility] Ketones Test strip Ql (U)Ord ered By: Franco Benites on 12-04-2024 Ketones Ql (U) 5 mg/dl High Negative [facility] L499.0042on 12-04-2024 Trop T High Sen 91 ng/L Invalid Interpretation Code <=22 [facility] Comment on above: Result Comment: Crit ical Result(s) Called at 1337: by: BRAYDEN SAAB. ??Results read back by same. Performed By: #### L 499.0042 ####[facility] [address] [place], [place], [address] L501.4021on 12-04-2024 Trop T High Sen 35 ng/L High <=22 [facility] Comment on above: Performed By: #### L 501.4021 ####[facility] [address] [place], [place], [id number] Laboratory - Chemistry and C hemistry - challengeOrdered By: Franco Benites on 12-04-2024 AST [Catalytic activity/Vol] 17 U/L <38 [facility] Lactic Acidon 12-04-2024 Lactate [Moles/Vol] mmol/L Normal 0.0-2.0 [facility] Comment on above: Performed By: #### L 503.6005 ####[facility] [address] [place], [place], [address] Lactate [Moles/Vol] 5.1 mmol/L Invalid Interpretation Code 0.0-2.0 [facility] Comment on above: Order Comment: Y Result Comment: Crit ical Result(s) Called at 1150: by:?? BRAYDEN BERNARD. Results read back by same. Performed By: #### L 300.3900, L300.4310, L500.4050, L503.6005, L100.0100, M200.1000 ####[facility] [address] [place], [place], [address] Lactic acid measurementOrder ed By: Franco Benites on 12-04-2024 Lactate [Moles/Vol] mmol/L 0.0-2.0 [facility] Lactate [Moles/Vol] 5.1 mmol/L High 0.0-2.0 [facility] Comment on above: Critical Result(s) C alled at 1150: by: BRAYDEN SPRAGUE TO ANYA. Results read back by same. MCV (mean corpuscular volume ) determinationOrdered By: Franco Benites on 12-04-2024 MCV (RBC) [Entitic vol] 85.4 fL 80-94 [facility] Mean corpuscular hemoglobin (MCH) determinationOrdered By: Fracno Benites on 12-04-2024 MCH (RBC) [Entitic mass] 26.1 pg Low 27.0-32.0 [facility] Mean corpuscular hemoglobin concentration (MCHC) determinationOrdered By: Franco Benites on 12-04-2024 MCHC (RBC) [Mass/Vol] 30.6 g/dL Low 32-36 [facility] Mean platelet volume determi nationOrdered By: Franco Benites on 12-04-2024 Platelet mean volume (Bld) [Entitic vol] 9.6 fL 6.2-12.0 [facility] Measurement, pHOrdered By: Tanisha Benites on 12-04-2024 pH (Unsp spec) 7.36 [pH] 7.35-7.45 [facility] Microscopic analysis of urin e for red blood cells (RBC)Ordered By: Franco Benites on 12-04-2024 Microscopic analysis of urine for red blood cells (RBC) 0-5 SEEN /hpf 0-5 [facility] Monocyte percentageOrdered B y: Franco Benites on 12-04-2024 Monocytes/100 WBC (Bld) 6.8 % 0-10 [facility] Mucus LM Ql (Urine sed)Order ed By: Franco Benites on 12-04-2024 Mucus Ql (Urine sed) 0 SEEN /hpf [facility] Neutrophil percentageOrdered By: Franco Benites on 12-04-2024 Neutrophils/100 WBC (Bld) 85.9 % High 47-70 [facility] Nitrite Test strip Ql (U)Ord ered By: Franco Benites on 12-04-2024 Nitrite Ql (U) Negative Negative [facility] No Panel InformationOrdered By: Franco Benites on 12-04-2024 Blood Gas Sample Site L Brach [facility] Blood Gas Specimen Type ART [facility] Blood Gas Vent Mode Not entered [facility] Oxygen Delivery Device Not entered [facility] Nucleated red blood cell per centageOrdered By: Franco Benites on 12-04-2024 Nucleated RBC/100 WBC (Bld) [Ratio] 0 % 0-5 [facility] [facility] Partial Thromboplast Timeon 12-04-2024 aPTT Coag (Bld) [Time] 23.7 s Low 24.1-36.2 [facility] Comment on above: Performed By: #### L 300.3900, L300.4310, L500.4050, L503.6005, L100.0100, M200.1000 ####[facility] [address] [place], [place], [id number] Platelet countOrdered By: Adolph Benites on 12-04-2024 Platelets (Bld) [#/Vol] 236 10*3/uL 150-450 [facility] Potassium measurement (mass/ volume)Ordered By: Franco Benites on 12-04-2024 Potassium (Unsp spec) [Mass/Vol] 4.3 mmol/L 3.3-5.1 [facility] Protein Test strip Ql (U)Ord ered By: Franco Benites on 12-04-2024 Protein Ql (U) 30 mg/dl High Negative [facility] Prothrombin Time w/INRon INR Coag (PPP) [Relative time] 1.0 {INR} Normal [facility] Comment on above: Performed By: #### L 300.3900, L300.4310, L500.4050, L503.6005, L100.0100, M200.1000 ####[facility] [address], [address] PT Coag (PPP) [Time] 13.4 s Normal 11.7-14.9 [facility] Comment on above: Performed By: #### L 300.3900, L300.4310, L500.4050, L503.6005, L100.0100, M200.1000 ####[facility] [address] [place], [address] Prothrombin timeOrdered By: Franco Benites on 12-04-2024 PT Coag (PPP) [Time] 13.4 s 11.7-14.9 [facility] RBC Auto (Bld) [#/Vol]Ordere d By: Franco Benites on 12-04-2024 RBC (Bld) [#/Vol] 5.06 10*6/uL 4.6-6.2 [facility] RESPIRATORY PANEL MOLECULARo n 12-04-2024 RP PANEL Normal [facility] Comment on above: Performed By: #### M 100.638 ####[facility] [address] [place], [address] Respiratory pathogens detect ion panel by molecular detection methodOrdered By: Franco Benites on 12-04-2024 Respiratory pathogens DNA and RNA panel DALIA+probe (Resp) [facility] Serum creatinine measurement (mass/volume)Ordered By: Franco Benites on 12-04-2024 Creatinine [Mass/Vol] 1.15 mg/dL 0.70-1.20 [facility] Serum globulin measurementOr dered By: Franco Benites on 12-04-2024 Globulin (S) [Mass/Vol] 3.0 g/dL 2.2-4.2 [facility] Serum glucose measurement (m ass/volume)Ordered By: Franco Benites on 12-04-2024 Glucose [Mass/Vol] 112 mg/dL High 70-99 [facility] Serum or plasma alanine ramsey otransferase (ALT) measurementOrdered By: Franco Benites on 12-04-2024 ALT [Catalytic activity/Vol] 7 U/L <47 [facility] Serum or plasma albumin michael urement (mass/volume)Ordered By: Franco Rodriguez on 12-04-2024 Albumin [Mass/Vol] 4.3 g/dL 3.5-5.0 [facility] Serum or plasma albumin/glob ulin mass ratioOrdered By: Franco Benites on 12-04-2024 Albumin/Globulin [Mass ratio] 1.4 {ratio} 0.9-2.4 [facility] Serum or plasma alkaline katey sphatase measurementOrdered By: Franco Benites on 12-04-2024 ALP [Catalytic activity/Vol] 148 U/L High 40-129 [facility] Serum or plasma calcium michael urement (mass/volume)Ordered By: Franco Rodriguez on 12-04-2024 Calcium [Mass/Vol] 9.6 mg/dL 7.6-11.0 [facility] Serum or plasma urea nitroge n measurement (mass/volume)Ordered By: Franco Benites on 12-04-2024 Urea nitrogen [Mass/Vol] 17 mg/dL 4-19 [facility] Sodium levelOrdered By: Wesley Benites on 12-04-2024 Sodium [Moles/Vol] 141 mmol/L 133-145 [facility] Squamous epithelial cells de tection in urine sediment by light microscopyOrdered By: Franco Benites on 12-04-2024 Epithelial cells.squamous LM Ql (Urine sed) 0 SEEN /hpf 0-5 [facility] Total carbon dioxide measure mentOrdered By: Franco Benites on 12-04-2024 CO2 [Moles/Vol] 35 mmol/L [facility] Total proteinOrdered By: Ulysses Benites on 12-04-2024 Protein [Mass/Vol] 7.3 g/dL 5.9-8.4 [facility] Troponin T.cardiac [Mass/vol ume] in Serum or Plasma by High sensitivity methodOrdered By: Franco Benites on 12-04-2024 Troponin T.cardiac High sensitivity method [Mass/Vol] 91 ng/L High <22 [facility] Comment on above: Critical Result(s) C alled at 1337: by: BRAYDEN SPRAGUE TO [facility]. Results read back by same. Troponin T.cardiac High sensitivity method [Mass/Vol] 35 ng/L High <22 [facility] Urinalysis, Completeon 12-04 RBC 0-5 SEEN Normal 0-5 [facility] Comment on above: Order Comment: CANDE CTOR TO SPECIFY Performed By: #### L 400.0001, M100.2200 ####[facility] [address] [place], [address] WBC 0-5 SEEN Normal 0-5 [facility] Comment on above: Order Comment: CANDE CTOR TO SPECIFY Performed By: #### L 400.0001, M100.2200 ####[facility] [address] [place], [address] BACTERIA 0 SEEN Normal None Seen [facility] Comment on above: Order Comment: CANDE CTOR TO SPECIFY Performed By: #### L 400.0001, M100.2200 ####[facility] [address] [place], [address] EPI,SQUAMOUS 0 SEEN Normal 0-5 [facility] Comment on above: Order Comment: CANDE CTOR TO SPECIFY Performed By: #### L 400.0001, M100.2200 ####[facility] [address] [place], [address] Mucus Ql (Urine sed) 0 SEEN Normal [facility] Comment on above: Order Comment: CANDE CTOR TO SPECIFY Performed By: #### L 400.0001, M100.2200 ####[facility] [address] [place], [address] Urine clarityOrdered By: Ulysses Benites on 12-04-2024 Clarity (U) Clear Clear [facility] Urine color determinationOrd ered By: Franco Benites on 12-04-2024 Color (U) Yellow Yellow [facility] Urine cultureOrdered By: Ulysses Benites on 12-04-2024 Bacteria identified Cx Nom (U) Acinetobacter baumannii Abnormal [facility] Urine glucose detectionOrder ed By: Franco Benites on 12-04-2024 Glucose Ql (U) Normal mg/dl Normal [facility] Urine leukocyte esterase det ection by dipstickOrdered By: Franco Benites on 12-04-2024 Leukocyte esterase Test strip Ql (U) 25 /ul High Negative [facility] Urine pHOrdered By: Franco Drummond on 12-04-2024 pH (U) 5.0 [pH] 5.0 - 8.0 [facility] Urine sediment bacteria coun t by microscopy (number/high power field)Ordered By: Franco Benites on 12-04-2024 Bacteria LM.HPF (Urine sed) [#/Area] 0 /[HPF] None Seen [facility] Urine specific gravity measu rementOrdered By: Franco Benites on 12-04-2024 Specific gravity (U) [Rel density] 1.020 1.002-1.030 [facility] Urine urobilinogen measureme ntOrdered By: Franco Benites on 12-04-2024 Urobilinogen Ql (U) Normal mg/dl Normal [facility] White blood cell (WBC) count Ordered By: Franco Benites on 12-04-2024 WBC (Bld) [#/Vol] 11.9 10*3/uL High 4.4-11.0 [facility] White blood cell countOrdere d By: Franco Benites on 12-04-2024 White blood cell count 0-5 SEEN /hpf 0-5 [facility] Culture, Blood (WB)on 2024 CUB Blood cultures x2, from two different sites No growth in 5 days. Normal [facility] Comment on above: Performed By: #### L 500.4050, L503.6005, M200.1000, L300.4310, L300.3900, L100.0100 ####[facility] [address] [place], [address] CUB Blood cultures x2, from two different sites No growth in 5 days. Normal [facility] Comment on above: Performed By: #### M 200.1000 ####[facility] [address] [place], [address] Basic Metabolic Profile (BMP )on 08-01-2024 BUN/CRE 12.0 RATIO Normal 10-20 [facility] Comment on above: Performed By: #### L 500.2500, L100.0100 ####[facility] [address] [place], [address] CA,Total 9.8 mg/dL Normal 8.5-10.1 [facility] Comment on above: Performed By: #### L 500.2500, L100.0100 ####[facility] [address] [place], [address] Chloride [Moles/Vol] 102 mmol/L Normal 98-107 [facility] Comment on above: Performed By: #### L 500.2500, L100.0100 ####[facility] [address] [place], [address] CO2 [Moles/Vol] 29.0 mmol/L Normal 21.0-32.0 [facility] Comment on above: Performed By: #### L 500.2500, L100.0100 ####[facility] [address] [place], [address] Creatinine [Mass/Vol] 0.92 mg/dL Normal 0.70-1.30 [facility] Comment on above: Result Comment: The validity of the calculated GFR GFRAA in patients over70 years has not been determined. Clinical correlation isessential. Performed By: #### L 500.2500, L100.0100 ####[facility] [address] [place], [address] ECRCL 105.89 ml/min Normal [facility] Comment on above: Performed By: #### L 500.2500, L100.0100 ####[facility] [address] [place], [address] EST GFR - AA 111 mL/min Normal >60 [facility] Comment on above: Result Comment: Afri can Chilean GFR Calc Performed By: #### L 500.2500, L100.0100 ####[facility] [address] [place], [address] GAP 5 Normal 5-15 [facility] Comment on above: Performed By: #### L 500.2500, L100.0100 ####[facility] [address] [place], [address] GFR/1.73 sq M.predicted among non-blacks MDRD (S/P/Bld) [Vol rate/Area] 91 mL/min/{1.73_m2} Normal >60 [facility] Comment on above: Result Comment: Non- GFR Calc Performed By: #### L 500.2500, L100.0100 ####[facility] [address] [place], [address] Glucose [Mass/Vol] 126 mg/dL High 74-106 [facility] Comment on above: Result Comment: Fast ing Glucose result greater than or equal to 126 mg/dLsuggests DIABETES MELLITUS per A.D.A. criteria. Performed By: #### L 500.2500, L100.0100 ####[facility] [address] [place], [address] Potassium [Moles/Vol] 4.3 mmol/L Normal 3.5-5.1 [facility] Comment on above: Performed By: #### L 500.2500, L100.0100 ####[facility] [address] [place], [address] Sodium [Moles/Vol] 136 mmol/L Normal 136-145 [facility] Comment on above: Performed By: #### L 500.2500, L100.0100 ####[facility] [address] [place], [address] Urea nitrogen [Mass/Vol] 11 mg/dL Normal 7-18 [facility] Comment on above: Performed By: #### L 500.2500, L100.0100 ####[facility] [address] [place], [address] Bedside Glucoseon 08-01-2024 FINGERSTICK GLU 173 mg/dL High 74-106 [facility] Comment on above: Result Comment: JEFFREY GEMENT OF PATIENT CARE PER NURSING PROTOCOL Performed By: #### L 501.080 ####[facility] [address] [place], [address] FINGERSTICK GLU 156 mg/dL High 74-106 [facility] Comment on above: Result Comment: JEFFREY GEMENT OF PATIENT CARE PER NURSING PROTOCOL Performed By: #### L 501.080 ####[facility] [address] [place], [address] FINGERSTICK GLU 125 mg/dL High 74-106 [facility] Comment on above: Result Comment: JEFFREY GEMENT OF PATIENT CARE PER NURSING PROTOCOL Performed By: #### L 501.080 ####[facility] [address] [place], [address] CBC W/Diff, Automatedon 02-0 Absolute Lymph 0.61 X10 3/uL Low 0.83-4.51 [facility] Comment on above: Performed By: #### L 500.2500, L100.0100 ####[facility] [address] [place], [address] Absolute Neut 3.9 X10 3/uL Normal 2.0-7.7 [facility] Comment on above: Performed By: #### L 500.2500, L100.0100 ####[facility] [address] [place], [address] Basophils/100 WBC (Bld) 0.2 % Normal 0-1 [facility] Comment on above: Performed By: #### L 500.2500, L100.0100 ####[facility] [address] [place], [address] Eosinophils/100 WBC (Bld) 0.0 % Normal 0-5 [facility] Comment on above: Performed By: #### L 500.2500, L100.0100 ####[facility] [address] [place], [address] Erythrocyte distribution width (RBC) [Ratio] 14.8 % High 11.6-14.6 [facility] Comment on above: Performed By: #### L 500.2500, L100.0100 ####[facility] [address] [place], [address] Hematocrit (Bld) [Volume fraction] 40.5 % Normal 40-54 [facility] Comment on above: Performed By: #### L 500.2500, L100.0100 ####[facility] [address] [place], [address] Hemoglobin (Bld) [Mass/Vol] 12.5 g/dL Low 13.0-16.5 [facility] Comment on above: Performed By: #### L 500.2500, L100.0100 ####[facility] [address] [place], [address] IG% 0.200 Normal 0.0-0.9 [facility] Comment on above: Result Comment: IG% - Immature Granulocytes (promyelocytes, myelocytes andmetamyelocytes) > 1% indicates that a LEFT SHIFT is Present. Performed By: #### L 500.2500, L100.0100 ####[facility] [address] [place], [address] Lymphocytes/100 WBC (Bld) 12.1 % Low 19-41 [facility] Comment on above: Performed By: #### L 500.2500, L100.0100 ####[facility] [address] [place], [address] MCH (RBC) [Entitic mass] 26.5 pg Low 27.0-32.0 [facility] Comment on above: Performed By: #### L 500.2500, L100.0100 ####[facility] [address] [place], [address] MCHC (RBC) [Mass/Vol] 30.9 g/dL Low 32-36 [facility] Comment on above: Performed By: #### L 500.2500, L100.0100 ####[facility] [address] [place], [address] MCV (RBC) [Entitic vol] 86.0 fL Normal 80-94 [facility] Comment on above: Performed By: #### L 500.2500, L100.0100 ####[facility] [address] [place], [address] Monocytes/100 WBC (Bld) 9.7 % Normal 0-10 [facility] Comment on above: Performed By: #### L 500.2500, L100.0100 ####[facility] [address] [place], [address] Neutrophils/100 WBC (Bld) 77.8 % High 47-70 [facility] Comment on above: Performed By: #### L 500.2500, L100.0100 ####[facility] [address] [place], [address] Nucleated RBC (Bld) [#/Vol] 0 10*3/uL Normal 0-5 [facility] Comment on above: Performed By: #### L 500.2500, L100.0100 ####[facility] [address] [place], [address] Platelet mean volume (Bld) [Entitic vol] 9.3 fL Normal 6.2-12.0 [facility] Comment on above: Performed By: #### L 500.2500, L100.0100 ####[facility] [address] [place], [address] Platelets (Bld) [#/Vol] 206 10*3/uL Normal 150-450 [facility] Comment on above: Performed By: #### L 500.2500, L100.0100 ####[facility] [address] [place], [address] RBC (Bld) [#/Vol] 4.71 10*6/uL Normal 4.6-6.2 [facility] Comment on above: Performed By: #### L 500.2500, L100.0100 ####[facility] [address] [place], [address] RDW SD 46.8 fl High 35.1-43.9 [facility] Comment on above: Performed By: #### L 500.2500, L100.0100 ####[facility] [address] [place], [address] WBC (Bld) [#/Vol] 5.0 10*3/uL Normal 4.4-11.0 [facility] Comment on above: Performed By: #### L 500.2500, L100.0100 ####[facility] [address] [place], [address] 12 Lead EKGon 07-31-2024 12 Lead EKG Normal [facility] Bedside Glucoseon 07-31-2024 FINGERSTICK GLU 116 mg/dL High 74-106 [facility] Comment on above: Result Comment: JEFFREY BOWIE OF PATIENT CARE PER NURSING PROTOCOL Performed By: #### L 501.080 ####[facility] [address] [place], [address] Blood Gases by CPSon 025 Base excess Calc (Bld) [Moles/Vol] 6 mmol/L High -2 to +2 [facility] Comment on above: Performed By: #### L 9000.0800 ####[facility] [address] [place], [address] Blood Gas Type ART [facility] Comment on above: Performed By: #### L 9000.0800 ####[facility] [address] [place], [address] CO2 [Moles/Vol] 32 mmol/L Normal [facility] Comment on above: Performed By: #### L 9000.0800 ####[facility] [address] [place], [address] FI02 4.0 [facility] Comment on above: Performed By: #### L 9000.0800 ####[facility] [address] [place], [address] HCO3 (Bld) [Moles/Vol] 30.6 mmol/L High 22-26 [facility] Comment on above: Performed By: #### L 9000.0800 ####[facility] [address] [place], [address] Mode Not entered [facility] Comment on above: Performed By: #### L 9000.0800 ####[facility] [address] [place], [address] O2 Delivery Dev Not entered [facility] Comment on above: Performed By: #### L 9000.0800 ####[facility] [address] [place], [address] pCO2 50.8 mmHg High 35-45 [facility] Comment on above: Performed By: #### L 9000.0800 ####[facility] [address] [place], [address] pH (Bld) 7.39 [pH] Normal 7.35-7.45 [facility] Comment on above: Performed By: #### L 9000.0800 ####[facility] [address] [place], [address] PO2 60 mmHG Low 75-100 [facility] Comment on above: Performed By: #### L 9000.0800 ####[facility] [address] [place], [address] SITE Not entered [facility] Comment on above: Performed By: #### L 9000.0800 ####[facility] [address] [place], [address] SO2 90 Low 95-99 [facility] Comment on above: Performed By: #### L 9000.0800 ####[facility] [address] [place], [address] CBC W/Diff, Automatedon 02-0 -2024 Absolute Lymph 0.33 X10 3/uL Low 0.83-4.51 [facility] Comment on above: Performed By: #### L 500.4050, L503.6005, M200.1000, L300.4310, L300.3900, L100.0100 ####[facility] [address] [place], [address] Absolute Neut 5.7 X10 3/uL Normal 2.0-7.7 [facility] Comment on above: Performed By: #### L 500.4050, L503.6005, M200.1000, L300.4310, L300.3900, L100.0100 ####[facility] [address] [place], [address] Basophils/100 WBC (Bld) 0.3 % Normal 0-1 [facility] Comment on above: Performed By: #### L 500.4050, L503.6005, M200.1000, L300.4310, L300.3900, L100.0100 ####[facility] [address] [place], [address] Eosinophils/100 WBC (Bld) 0.3 % Normal 0-5 [facility] Comment on above: Performed By: #### L 500.4050, L503.6005, M200.1000, L300.4310, L300.3900, L100.0100 ####[facility] [address] [place], [address] Erythrocyte distribution width (RBC) [Ratio] 15.0 % High 11.6-14.6 [facility] Comment on above: Performed By: #### L 500.4050, L503.6005, M200.1000, L300.4310, L300.3900, L100.0100 ####[facility] [address] [place], [address] Hematocrit (Bld) [Volume fraction] 41.3 % Normal 40-54 [facility] Comment on above: Performed By: #### L 500.4050, L503.6005, M200.1000, L300.4310, L300.3900, L100.0100 ####[facility] [address] [place], [address] Hemoglobin (Bld) [Mass/Vol] 12.8 g/dL Low 13.0-16.5 [facility] Comment on above: Performed By: #### L 500.4050, L503.6005, M200.1000, L300.4310, L300.3900, L100.0100 ####[facility] [address] [place], [address] IG% 0.300 Normal 0.0-0.9 [facility] Comment on above: Result Comment: IG% - Immature Granulocytes (promyelocytes, myelocytes andmetamyelocytes) > 1% indicates that a LEFT SHIFT is Present. Performed By: #### L 500.4050, L503.6005, M200.1000, L300.4310, L300.3900, L100.0100 ####[facility] [address] [place], [address] Lymphocytes/100 WBC (Bld) 4.8 % Low 19-41 [facility] Comment on above: Performed By: #### L 500.4050, L503.6005, M200.1000, L300.4310, L300.3900, L100.0100 ####[facility] [address] [place], [address] MCH (RBC) [Entitic mass] 26.9 pg Low 27.0-32.0 [facility] Comment on above: Performed By: #### L 500.4050, L503.6005, M200.1000, L300.4310, L300.3900, L100.0100 ####[facility] [address] [place], [address] MCHC (RBC) [Mass/Vol] 31.0 g/dL Low 32-36 [facility] Comment on above: Performed By: #### L 500.4050, L503.6005, M200.1000, L300.4310, L300.3900, L100.0100 ####[facility] [address] [place], [address] MCV (RBC) [Entitic vol] 86.8 fL Normal 80-94 [facility] Comment on above: Performed By: #### L 500.4050, L503.6005, M200.1000, L300.4310, L300.3900, L100.0100 ####[facility] [address] [place], [address] Monocytes/100 WBC (Bld) 10.8 % High 0-10 [facility] Comment on above: Performed By: #### L 500.4050, L503.6005, M200.1000, L300.4310, L300.3900, L100.0100 ####[facility] [address] [place], [address] Neutrophils/100 WBC (Bld) 83.5 % High 47-70 [facility] Comment on above: Performed By: #### L 500.4050, L503.6005, M200.1000, L300.4310, L300.3900, L100.0100 ####[facility] [address] [place], [address] Nucleated RBC (Bld) [#/Vol] 0 10*3/uL Normal 0-5 [facility] Comment on above: Performed By: #### L 500.4050, L503.6005, M200.1000, L300.4310, L300.3900, L100.0100 ####[facility] [address] [place], [address] Platelet mean volume (Bld) [Entitic vol] 9.8 fL Normal 6.2-12.0 [facility] Comment on above: Performed By: #### L 500.4050, L503.6005, M200.1000, L300.4310, L300.3900, L100.0100 ####[facility] [address] [place], [address] Platelets (Bld) [#/Vol] 204 10*3/uL Normal 150-450 [facility] Comment on above: Performed By: #### L 500.4050, L503.6005, M200.1000, L300.4310, L300.3900, L100.0100 ####[facility] [address] [place], [address] RBC (Bld) [#/Vol] 4.76 10*6/uL Normal 4.6-6.2 [facility] Comment on above: Performed By: #### L 500.4050, L503.6005, M200.1000, L300.4310, L300.3900, L100.0100 ####[facility] [address] [place], [address] RDW SD 47.6 fl High 35.1-43.9 [facility] Comment on above: Performed By: #### L 500.4050, L503.6005, M200.1000, L300.4310, L300.3900, L100.0100 ####[facility] [address] [place], [address] WBC (Bld) [#/Vol] 6.8 10*3/uL Normal 4.4-11.0 [facility] Comment on above: Performed By: #### L 500.4050, L503.6005, M200.1000, L300.4310, L300.3900, L100.0100 ####[facility] [address] [place], [address] Chest 1 View (Portable)on Chest 1 View (Portable) Normal [facility] Comprehensive Metabolic Prof ilon 07-31-2024 Albumin [Mass/Vol] 3.5 g/dL Normal 3.2-5.0 [facility] Comment on above: Performed By: #### L 500.4050, L503.6005, M200.1000, L300.4310, L300.3900, L100.0100 ####[facility] [address] [place], [address] Albumin/Globulin [Mass ratio] 0.9 {ratio} Normal 0.9-2.4 [facility] Comment on above: Performed By: #### L 500.4050, L503.6005, M200.1000, L300.4310, L300.3900, L100.0100 ####[facility] [address] [place], [address] ALK P 125 U/L High 45-117 [facility] Comment on above: Performed By: #### L 500.4050, L503.6005, M200.1000, L300.4310, L300.3900, L100.0100 ####[facility] [address] [place], [address] ALT [Catalytic activity/Vol] 12 U/L Low 16-61 [facility] Comment on above: Performed By: #### L 500.4050, L503.6005, M200.1000, L300.4310, L300.3900, L100.0100 ####[facility] [address] [place], [address] AST [Catalytic activity/Vol] 11 U/L Low 15-37 [facility] Comment on above: Performed By: #### L 500.4050, L503.6005, M200.1000, L300.4310, L300.3900, L100.0100 ####[facility] [address] [place], [address] Bilirubin [Mass/Vol] 0.40 mg/dL Normal 0.20-1.00 [facility] Comment on above: Result Comment: For patients on eltrombopag therapy, use of Dimension O'Brien TBIL is not recommended. Performed By: #### L 500.4050, L503.6005, M200.1000, L300.4310, L300.3900, L100.0100 ####[facility] [address] [place], [address] BUN/CRE 10.8 RATIO Normal 10-20 [facility] Comment on above: Performed By: #### L 500.4050, L503.6005, M200.1000, L300.4310, L300.3900, L100.0100 ####[facility] [address] [place], [address] CA,Total 9.7 mg/dL Normal 8.5-10.1 [facility] Comment on above: Performed By: #### L 500.4050, L503.6005, M200.1000, L300.4310, L300.3900, L100.0100 ####[facility] [address] [place], [address] Chloride [Moles/Vol] 103 mmol/L Normal 98-107 [facility] Comment on above: Performed By: #### L 500.4050, L503.6005, M200.1000, L300.4310, L300.3900, L100.0100 ####[facility] [address] [place], [address] CO2 [Moles/Vol] 28.0 mmol/L Normal 21.0-32.0 [facility] Comment on above: Performed By: #### L 500.4050, L503.6005, M200.1000, L300.4310, L300.3900, L100.0100 ####[facility] [address] [place], [address] Creatinine [Mass/Vol] 1.30 mg/dL Normal 0.70-1.30 [facility] Comment on above: Result Comment: The validity of the calculated GFR GFRAA in patients over70 years has not been determined. Clinical correlation isessential. Performed By: #### L 500.4050, L503.6005, M200.1000, L300.4310, L300.3900, L100.0100 ####[facility] [address] [place], [address] ECRCL 76.89 ml/min Normal [facility] Comment on above: Performed By: #### L 500.4050, L503.6005, M200.1000, L300.4310, L300.3900, L100.0100 ####[facility] [address] [place], [address] EST GFR - AA 74 mL/min Normal >60 [facility] Comment on above: Result Comment: Afri can [place]an GFR Calc Performed By: #### L 500.4050, L503.6005, M200.1000, L300.4310, L300.3900, L100.0100 ####[facility] [address] [place], [address] GAP 7 Normal 5-15 [facility] Comment on above: Performed By: #### L 500.4050, L503.6005, M200.1000, L300.4310, L300.3900, L100.0100 ####[facility] [address] [place], [address] GFR/1.73 sq M.predicted among non-blacks MDRD (S/P/Bld) [Vol rate/Area] 61 mL/min/{1.73_m2} Normal >60 [facility] Comment on above: Result Comment: Non- GFR Calc Performed By: #### L 500.4050, L503.6005, M200.1000, L300.4310, L300.3900, L100.0100 ####[facility] [address] [place], [address] Globulin (S) [Mass/Vol] 3.7 g/dL Normal 2.2-4.2 [facility] Comment on above: Performed By: #### L 500.4050, L503.6005, M200.1000, L300.4310, L300.3900, L100.0100 ####[facility] [address] [place], [address] Glucose [Mass/Vol] 112 mg/dL High 74-106 [facility] Comment on above: Result Comment: Fast ing Glucose result from 100 to 125 mg/dLsuggests IMPAIRED HOMEOSTASIS per A.D.A. criteria. Performed By: #### L 500.4050, L503.6005, M200.1000, L300.4310, L300.3900, L100.0100 ####[facility] [address] [place], [address] Potassium [Moles/Vol] 4.2 mmol/L Normal 3.5-5.1 [facility] Comment on above: Performed By: #### L 500.4050, L503.6005, M200.1000, L300.4310, L300.3900, L100.0100 ####[facility] [address] [place], [address] Sodium [Moles/Vol] 138 mmol/L Normal 136-145 [facility] Comment on above: Performed By: #### L 500.4050, L503.6005, M200.1000, L300.4310, L300.3900, L100.0100 ####[facility] [address] [place], [address] T PROT 7.2 g/dL Normal 6.4-8.2 [facility] Comment on above: Performed By: #### L 500.4050, L503.6005, M200.1000, L300.4310, L300.3900, L100.0100 ####[facility] [address] [place], [address] Urea nitrogen [Mass/Vol] 14 mg/dL Normal 7-18 [facility] Comment on above: Performed By: #### L 500.4050, L503.6005, M200.1000, L300.4310, L300.3900, L100.0100 ####[facility] [address] [place], [place], [id number] Emergency Department Summary on 07-31-2024 Emergency Department Summary Normal [facility] H AND P Exam - Hospitaliston 07-31-2024 H&P Exam - Hospitalist Normal [facility] Lactic Acidon 07-31-2024 Lactate [Moles/Vol] 2.3 mmol/L Invalid Interpretation Code 0.4-1.9 [facility] Comment on above: Result Comment: Crit ical Result(s) Called at: 23:41:34 07/31/2024 by: LOUIS. Results read back by Performed By: #### L 503.6005 ####[facility] [address] [place], [address] Lactate [Moles/Vol] 3.0 mmol/L Invalid Interpretation Code 0.4-1.9 [facility] Comment on above: Order Comment: Y Result Comment: Crit ical Result(s) Called at: 13:09:37 07/31/2024 by:LELE QUINTEROS. Results read back by tarah. Performed By: #### L 500.4050, L503.6005, M200.1000, L300.4310, L300.3900, L100.0100 ####[facility] [address] [place], [address] Partial Thromboplast Timeon 07-31-2024 aPTT Coag (Bld) [Time] 27.0 s Normal 24.1-36.2 [facility] Comment on above: Performed By: #### L 500.4050, L503.6005, M200.1000, L300.4310, L300.3900, L100.0100 ####[facility] [address] [place], [address] Prothrombin Time w/INRon INR Coag (PPP) [Relative time] 1.1 {INR} Normal [facility] Comment on above: Performed By: #### L 500.4050, L503.6005, M200.1000, L300.4310, L300.3900, L100.0100 ####[facility] [address] [place], [address] PT Coag (PPP) [Time] 14.2 s Normal 11.7-14.9 [facility] Comment on above: Performed By: #### L 500.4050, L503.6005, M200.1000, L300.4310, L300.3900, L100.0100 ####[facility] [address] [place], [address] Urinalysis, Completeon 07-31 WBC 0-5 SEEN Normal 0-5 [facility] Comment on above: Order Comment: CANDE CTOR TO SPECIFY Performed By: #### L 400.0001 ####[facility] [address] [place], [address] BACTERIA 0 SEEN Normal None Seen [facility] Comment on above: Order Comment: CANDE CTOR TO SPECIFY Performed By: #### L 400.0001 ####[facility] [address] [place], [address] EPI,SQUAMOUS 0 SEEN Normal 0-5 [facility] Comment on above: Order Comment: CANDE CTOR TO SPECIFY Performed By: #### L 400.0001 ####[facility] [address] [place], [address] Mucus Ql (Urine sed) 0 SEEN Normal [facility] Comment on above: Order Comment: CANDE CTOR TO SPECIFY Performed By: #### L 400.0001 ####[facility] [address] [place], [address] RBC 0 SEEN Normal 0-5 [facility] Comment on above: Order Comment: COLLE CTOR TO SPECIFY Performed By: #### L 400.0001 ####[facility] [address] [place], [address] Calcium.ionized [Mass/Vol]on 06-30-2022 Calcium Ionized 5.22 mg/dL Normal 4.50-5.30 [facility] Comment on above: Performed By: #### 1 9123-9 #### [facility] ([facility] [address] [place] [address] Calcium.ionized (Bld) [Mass/Vol] 5.22 mg/dL 4.50 - 5.30 mg/dL [employer] Interpretation and review of laboratory results Normal [facility] [employer] Comprehensive metabolic 2000 panelon 06-30-2022 Albumin [Mass/Vol] 3.6 g/dL 3.5 - 4.8 g/dL [facility] ALP [Catalytic activity/Vol] 104 U/L High [employer] ALT [Catalytic activity/Vol] 27 U/L [employer] Anion gap [Moles/Vol] 5 mmol/L Low 6 - 18 [facility] AST [Catalytic activity/Vol] 10 U/L Low [employer] Bilirubin [Mass/Vol] 0.4 mg/dL 0.3 - 1 .2 mg/dL [facility] Calcium [Mass/Vol] 9.2 mg/dL 8.9 - 10. 3 mg/dL [facility] Chloride [Moles/Vol] 100 mmol/L 98 - 10 7 mmol/L [facility] CO2 [Moles/Vol] 31 mmol/L 22 - 32 mmol/L [facility] Creatinine [Mass/Vol] 1.16 mg/dL 0.60 - 1.30 mg/dL [facility] GFR/1.73 sq M.predicted among non-blacks MDRD (S/P/Bld) [Vol rate/Area] 76 mL/min/{1.73_m2} - PINF [facility] Comment on above: Effective April 05, 2022, calculation based on the Chronic Kidney Disease Epidemiology Collaboration (CKD-EPI) equation refit without adjustment for race. Glucose [Mass/Vol] 303 mg/dL High 70 - 99 mg/dL [facility] Potassium [Moles/Vol] 4.1 mmol/L 3.6 - 5.1 mmol/L [facility] Protein [Mass/Vol] 6.2 g/dL 6.1 - 7.9 g/dL [facility] Sodium [Moles/Vol] 136 mmol/L 136 - 145 mmol/L [facility] Urea nitrogen [Mass/Vol] 20 mg/dL 8 - 20 mg/dL [facility] Urea nitrogen/Creatinine [Mass ratio] 17.2 mg/mg 12.0 - 20.0 [facility] Hemogram and platelets WO di fferential panel (Bld)on 06-30-2022 Erythrocyte distribution width (RBC) [Ratio] 13.4 % Normal 11.0-14.8 [facility] Comment on above: Performed By: #### 1 9123-9 #### [facility] [address] [place] [address] Hematocrit (Bld) [Volume fraction] 37.4 % Low 39.0-49.0 [facility] Comment on above: Performed By: #### 1 9123-9 #### [facility] [address] [place] [address] Hemoglobin (Bld) [Mass/Vol] 11.7 g/dL Low 13.5-17.5 [facility] Comment on above: Performed By: #### 1 9123-9 #### [facility] [address] [place] [address] MCH 27.8 pcg Normal 27.0-34.0 [facility] Comment on above: Performed By: #### 1 9123-9 #### [facility] [address] [place] [address] MCHC (RBC) [Mass/Vol] 31.3 g/dL Normal 30.8-35.3 [facility] Comment on above: Performed By: #### 1 9123-9 #### [facility] [address] [place] [address] MCV (RBC) [Entitic vol] 88.8 fL Normal 80.0-97.0 [facility] Comment on above: Performed By: #### 1 9123-9 #### [facility] [address] [place] [address] Platelet mean volume (Bld) [Entitic vol] 10.0 fL Normal 6.2-12.1 [facility] Comment on above: Performed By: #### 1 9123-9 #### [facility] [address] [place] [address] Platelets (Bld) [#/Vol] 170 10*3/uL Normal 142-424 [facility] Comment on above: Performed By: #### 1 9123-9 #### [facility] [address] [place] [address] RBC (Bld) [#/Vol] 4.21 10*6/uL Low 4.30-5.70 [facility] Comment on above: Performed By: #### 1 9123-9 #### [facility] [address] [place] [address] WBC (Bld) [#/Vol] 8.1 10*3/uL Normal 4.6-10.2 [facility] Comment on above: Performed By: #### 1 9123-9 #### [facility] [address] [place] [address] Erythrocyte distribution width (RBC) [Ratio] 13.4 % 11.0 - 14.8 % [facility] Hematocrit (Bld) [Volume fraction] 37.4 % Low 39.0 - 49.0 % [facility] Hemoglobin (Bld) [Mass/Vol] 11.7 g/dL Low 13.5 - 17.5 g/dL [facility] Interpretation and review of laboratory results Abnormal [facility] MCH (RBC) [Entitic mass] 27.8 pg [facility] MCHC (RBC) [Mass/Vol] 31.3 g/dL 30.8 - 35.3 g/dL [facility] MCV (RBC) [Entitic vol] 88.8 fL T [facility] Platelet mean volume (Bld) [Entitic vol] 10.0 fL [facility] Platelets (Bld) [#/Vol] 170 10*3/uL [facility] RBC (Bld) [#/Vol] 4.21 10*6/uL Low [facility] WBC (Bld) [#/Vol] 8.1 10*3/uL [facility] Magnesiumon 06-30-2022 Magnesium [Mass/Vol] 1.5 mg/dL Low 1.8 - 2 .5 mg/dL [facility] Magnesium [Mass/Vol]on 06-30 Albumin [Mass/Vol] 3.6 g/dL Normal 3.5-4.8 [facility] Comment on above: Performed By: #### 1 9123-9 #### [facility] [address] [place] [address] ALP [Catalytic activity/Vol] 104 U/L High 32-91 [facility] Comment on above: Performed By: #### 1 9123-9 #### [facility] [address] [place] [address] ALT [Catalytic activity/Vol] 27 U/L Normal 7-52 [facility] Comment on above: Performed By: #### 1 9123-9 #### [facility] [address] [place] [address] Anion gap [Moles/Vol] 5 mmol/L Low 6-18 [facility] Comment on above: Performed By: #### 1 9123-9 #### [facility] [address] [place] [address] AST [Catalytic activity/Vol] 10 U/L Low 15-41 [facility] Comment on above: Performed By: #### 1 9123-9 #### [facility] [address] [place] [address] Bilirubin [Mass/Vol] 0.4 mg/dL Normal 0.3-1.2 [facility] Comment on above: Performed By: #### 1 9123-9 #### [facility] [address] [place] [address] Calcium [Mass/Vol] 9.2 mg/dL Normal 8.9-10.3 [facility] Comment on above: Performed By: #### 1 9123-9 #### [facility] [address] [place] [address] Chloride [Moles/Vol] 100 mmol/L Normal 98-107 [facility] Comment on above: Performed By: #### 1 9123-9 #### [facility] [address] [place] [address] CO2 [Moles/Vol] 31 mmol/L Normal 22-32 [facility] Comment on above: Performed By: #### 1 9123-9 #### [facility] [address] [place] [address] Creatinine [Mass/Vol] 1.16 mg/dL Normal 0.60-1.30 [facility] Comment on above: Performed By: #### 1 9123-9 #### [facility] [address] [place] [address] GFR/1.73 sq M.predicted among non-blacks MDRD (S/P/Bld) [Vol rate/Area] 76 mL/min/{1.73_m2} Normal >=60 [facility] Comment on above: Result Comment: Effe ctive April 05, 2022, calculation based on the?Chronic Kidney Disease Epidemiology Collaboration (CKD-EPI) equation refit?without adjustment for race. Performed By: #### 1 9123-9 #### [facility] [address] [place] [address] Glucose [Mass/Vol] 303 mg/dL High 70-99 [facility] Comment on above: Performed By: #### 1 9123-9 #### [facility] [address] [place] [address] Potassium [Moles/Vol] 4.1 mmol/L Normal 3.6-5.1 [facility] Comment on above: Performed By: #### 1 9123-9 #### [facility] [address] [place] [address] Protein [Mass/Vol] 6.2 g/dL Normal 6.1-7.9 [facility] Comment on above: Performed By: #### 1 9123-9 #### [facility] [address] [place] [address] Sodium [Moles/Vol] 136 mmol/L Normal 136-145 [facility] Comment on above: Performed By: #### 1 9123-9 #### [facility] [address] [place] [address] Urea nitrogen [Mass/Vol] 20 mg/dL Normal 8-20 [facility] Comment on above: Performed By: #### 1 9123-9 #### [facility] [address] [place] [address] Urea nitrogen/Creatinine [Mass ratio] 17.2 mg/mg Normal 12.0-20.0 [facility] Comment on above: Performed By: #### 1 9123-9 #### [facility] ([facility]) [facility] [address] [place] [address] No Panel Informationon 06-30 Interpretation and review of laboratory results Abnormal [facility] Testosterone Free [Mass/Vol] on 06-18-2022 [facility] Testosterone, freeon 022 Testosterone Free [Mass/Vol] 2.6 pg/mL [facility] Comment on above: No reference range a vailable for males under 20 years or over 50 years. Test performed at [facility], [address] , [place] [id number] Aleyda Arriola MD, PhD - Digital Business Analyst 25-hydroxyvitamin D3 [Mass/V ol]on 06-16-2022 Interpretation and review of laboratory results Abnormal [facility] Cobalamin (Vitamin B12) [Mas s/Vol]on 06-16-2022 Interpretation and review of laboratory results Normal [facility] Folateon 06-16-2022 Folate [Mass/Vol] 7.8 ng/mL 4.0 - PINF ng/ml [facility] Folate [Mass/Vol]on 06-16-20 Interpretation and review of laboratory results Normal [facility] Follicle stimulating hormone on 06-16-2022 Follitropin Qn 11.6 m[IU]/mL mIU/mL [facility] Comment on above: ADULT MALES: 1.3 TO 19.3 MIU/ML ADULT FEMALES: FOLLICULLAR: 3.9 TO 8.8 MIU/ML MIDCYCLE PEAK: 4.5 TO 22.5 MIU/ML LUTEAL: 1.8 TO 5.1 MIU/ML POSTMENOPAUSAL: 16.7 TO 114.0 MIU/ML Follitropin Qnon 06-16-2022 [facility] Lavender tubeon 06-16-2022 Specimen source Nom (Unsp spec) Hold for add-ons. Chloe [facility] Comment on above: Auto resulted. Chloe [facility] [place] [Moles/Vol]on 2021 [place] Level 0.50 mEq/L Normal 0.50-1.50 [facility] Comment on above: Performed By: #### 1 4334-7 #### [facility] [address] [place] [address] Vitamin B-12 276 pcg/mL Normal 180-914 [facility] Comment on above: Performed By: #### 1 4334-7 #### [facility] [address] [place] [address] Interpretation and review of laboratory results Normal [facility] Interpretation and review of laboratory results Normal [facility] [place] levelon 06-16-2022 [place] [Moles/Vol] 0.50 mmol/L [facility] [place] [Moles/Vol] 0.50 mmol/L [facility] Luteinizing hormoneon 2021 Lutropin Qn 6.7 m[IU]/mL mIU/mL [facility] Comment on above: ADULT MALES: 1.2 TO 8.6 MIU/ML ADULT FEMALES: FOLLICULLAR: 2.1 TO 10.9 MIU/ML MIDCYCLE PEAK: 19.2 TO 103.0 MIU/ML LUTEAL: 1.2 TO 12.9 MIU/ML POSTMENOPAUSAL: 16.7 TO 114.0 MIU/ML Lutropin Qnon 06-16-2022 [facility] [facility] Testosterone Free [Mass/Vol] on 06-16-2022 Testosterone Free 2.6 pg/mL Normal [facility] Comment on above: Result Comment: No r eference range available for males under 20 years or over 50 years. Test performed at [facility], [address] [place] [address] Aleyda Arriola MD, PhD - Digital Business Analyst Performed By: #### 1 9123-9 #### [facility] [address] [place] [address] Testosterone [Mass/Vol]on Interpretation and review of laboratory results Abnormal [facility] Testosterone 1.17 ng/mL Low 1.68 - 7.46 ng/mL [facility] Luteinizing Hormone 6.7 mIU/mL Normal [facility] Comment on above: Result Comment: ADUL T MALES: 1.2 TO 8.6 MIU/ML ADULT FEMALES: FOLLICULLAR: 2.1 TO 10.9 MIU/ML MIDCYCLE PEAK: 19.2 TO 103.0 MIU/ML LUTEAL: 1.2 TO 12.9 MIU/ML POSTMENOPAUSAL: 16.7 TO 114.0 MIU/ML Performed By: #### 2 986-8 #### [facility] ([facility] [address] [place] [address] Vitamin B12on 06-16-2022 Cobalamin (Vitamin B12) [Mass/Vol] 276 pg/mL [facility] Vitamin D 25 hydroxyon 06-16 25-hydroxyvitamin D3 [Mass/Vol] 15.0 ng/mL Low 30.0 - 100.0 ng/mL [facility] Comment on above: Deficient <20 ng/mL Insufficient 20 to 30 ng/mL Sufficient 30-100 ng/mL Toxic >100 ng/mL Drugs identified Screen Nom (U)on 06-10-2022 Amphetamine Screen, Ur Not detected Normal Not Detecte d [facility] Comment on above: Order Comment: The f [...] request. Performed By: #### 1 2286-1 #### [facility] [address] [place] [address] Barbiturate Screen, Ur Not detected Normal Not Detecte d [facility] Comment on above: Order Comment: The f [...] request. Performed By: #### 1 2286-1 #### [facility] [address] [place] [address] Benzodiazepine Screen, Ur Not detected Normal Not Detected [facility] Comment on above: Order Comment: The f [...] request. Performed By: #### 1 2286-1 #### [facility] [address] [place] [address] Cannabinoid (THC) Screen, Ur Not detected Normal Not Detected [facility] Comment on above: Order Comment: The f [...] request. Performed By: #### 1 2286-1 #### [facility] [address] [place] [address] Cocaine Screen, Ur Not detected Normal Not Detected [facility] Comment on above: Order Comment: [...] request. Performed By: #### 1 2286-1 #### [facility] [address] [place] [address] Methadone Screen, Urine Not detected Normal Not Detect ed [facility] Comment on above: Order Comment: The f [...] request. Performed By: #### 1 2286-1 #### [facility] [address] [place] [address] Opiate Screen, Ur Not detected Normal Not Detected [facility] Comment on above: Order Comment: [...] request. Performed By: #### 1 2286-1 #### [facility] [address] [place] [address] Oxycodone Screen, Ur Not detected Normal Not Detected [facility] Comment on above: Order Comment: The f [...] request. Performed By: #### 1 2286-1 #### [facility] [address] [place] [address] Amphetamines Ql (U) Not detected Not Detected [...] (U) Not detected Not Detect ed [facility] O[facility] Screen Ql (U) Not detected Not [...] determinations. Confirmatory testing is available on request. [address] Glucose Auto test strip (Bld ) [Mass/Vol]on 06-10-2022 Glucose [Mass/Vol] 55 mg/dL Low 70-99 [facility] Comment on above: Performed By: #### 2 340-8 #### [facility] [address] [place] [address] Glucose [Mass/Vol] 55 mg/dL Low 70 - 99 mg/dL [facility] Interpretation and review of laboratory results Abnormal [address] Glucose [Mass/Vol] 213 mg/dL High 70-99 [facility] Comment on above: Performed By: #### 2 340-8 #### [facility] [address] [place] [address] Glucose [Mass/Vol] 213 mg/dL High 70 - 99 mg/dL [facility] Interpretation and review of laboratory results Abnormal [address] Urinalysis macro (dipstick) panel (U)on 06-10-2022 Bilirubin, Urine Negative Normal Negative [facility] Comment on above: Performed By: #### 2 4357-6 #### [facility] [address] [place] [address] Blood, Urine Negative Normal Negative [facility] Comment on above: Performed By: #### 2 4357-6 #### [facility] [address] [place] [address] Clarity (U) Clear Normal Clear [facility] Comment on above: Performed By: #### 2 4357-6 #### [facility] [address] [place] [address] Color (U) Yellow Normal Yellow [facility] Comment on above: Performed By: #### 2 4357-6 #### [facility] [address] [place] [address] Glucose Ql (U) Normal Normal Normal [facility] Comment on above: Performed By: #### 2 4357-6 #### [facility] [address] [facility] [place] [address] Ketones Ql (U) Negative Normal Negative [facility] Comment on above: Performed By: #### 2 4357-6 #### [facility] [address] [facility] [place] [address] Leukocytes, Urine 1+ Abnormal Negative [facility] Comment on above: Performed By: #### 2 4357-6 #### [facility] [address] [place] [address] Nitrite, Urine Negative Normal Negative [facility] Comment on above: Performed By: #### 2 4357-6 #### [facility] [address] [place] [address] pH (U) 7.0 [pH] Normal 5.0-8.0 [facility] Comment on above: Performed By: #### 2 4357-6 #### [facility] [address] [place] [address] Protein, Urine Negative Normal Negative [facility] Comment on above: Performed By: #### 2 4357-6 #### [facility] [address] [place] [address] Specific [place], Urine 1.015 Normal 1.002-1.030 [facility] Comment on above: Performed By: #### 2 4357-6 #### [facility] [address] [place] [address] Urobilinogen, Urine Normal Normal Normal [facility] Comment on above: Performed By: #### 2 4357-6 #### [facility] [address] [place] [address] Urinalysis macro (dipstick) panel (U)Ordered By: London Hicks on 06-10-2022 Bilirubin Ql (U) Negative Negative [facility] Clarity (U) Clear Clear [facility] Color (U) Yellow Yellow [facility] Glucose Ql (U) Normal Normal mg/dL [facility] Hemoglobin Ql (U) Negative Negative eryth/mcL [facility] Interpretation and review of laboratory results Abnormal [facility] Ketones (U) [Mass/Vol] Negative Negat kyra mg/dL [facility] Leukocyte esterase Test strip Ql (U) 1+ Abnormal Negative [facility] Nitrite Ql (U) Negative Negative [facility] pH (U) 7.0 [pH] 5.0 - 8.0 pH [facility] Protein (U) [Mass/Vol] Negative Negat kyra mg/dL [facility] Specific gravity (U) [Rel density] 1.015 1.002 - 1.030 [facility] Urobilinogen (U) [Mass/Vol] Normal Normal mg/dL [facility] Basic metabolic 2000 panelon 06-09-2022 Anion gap [Moles/Vol] 5 mmol/L Low 6 - 18 [facility] Calcium [Mass/Vol] 9.5 mg/dL 8.9 - 10. 3 mg/dL [facility] Chloride [Moles/Vol] 104 mmol/L 98 - 10 7 mmol/L [facility] CO2 [Moles/Vol] 29 mmol/L 22 - 32 mmol/L [facility] Creatinine [Mass/Vol] 1.14 mg/dL 0.60 - 1.30 mg/dL [facility] GFR/1.73 sq M.predicted MDRD (S/P/Bld) [Vol rate/Area] 77 mL/min/{1.73_m2} - PINF [facility] Comment on above: Effective April 05, 2022, calculation based on the Chronic Kidney Disease Epidemiology Collaboration (CKD-EPI) equation refit without adjustment for race. Glucose [Mass/Vol] 127 mg/dL High 70 - 99 mg/dL [facility] Potassium [Moles/Vol] 3.8 mmol/L 3.6 - 5.1 mmol/L [facility] Sodium [Moles/Vol] 138 mmol/L 136 - 145 mmol/L [facility] Urea nitrogen [Mass/Vol] 19 mg/dL 8 - 20 mg/dL [facility] Urea nitrogen/Creatinine [Mass ratio] 16.7 mg/mg 12.0 - 20.0 [facility] Ethanol (Bld) [Moles/Vol]on 06-09-2022 Ethanol [Mass/Vol] mg/dL NINF - 10 mg/dL [facility] Hemogram and platelets WO di fferential panel (Bld)on 06-09-2022 Basophils (Bld) [#/Vol] 0.04 10*3/uL Normal 0.00-0.20 [facility] Comment on above: Performed By: #### 2 4317-0 #### [facility] [address] [place] [address] Basophils/100 WBC (Bld) 0.4 % Normal 0.0-2.0 [facility] Comment on above: Performed By: #### 2 4317-0 #### [facility] [address] [place] [address] Eosinophils (Bld) [#/Vol] 0.31 10*3/uL Normal 0.00-0.70 [facility] Comment on above: Performed By: #### 2 4317-0 #### [facility] [address] [place] [address] Eosinophils/100 WBC (Bld) 2.8 % Normal 0.0-7.0 [facility] Comment on above: Performed By: #### 2 4317-0 #### [facility] [address] [place] [address] Erythrocyte distribution width (RBC) [Ratio] 13.7 % Normal 11.0-14.8 [facility] Comment on above: Performed By: #### 2 4317-0 #### [facility] [address] [place] [address] Hematocrit (Bld) [Volume fraction] 42.0 % Normal 39.0-49.0 [facility] Comment on above: Performed By: #### 2 4317-0 #### [facility] [address] [place] [address] Hemoglobin (Bld) [Mass/Vol] 12.6 g/dL Low 13.5-17.5 [facility] Comment on above: Performed By: #### 2 4317-0 #### [facility] [address] [place] [address] Immature granulocytes (Bld) [#/Vol] 0.03 10*3/uL Normal [facility] Comment on above: Performed By: #### 2 4317-0 #### [facility] [address] [place] [address] Immature granulocytes/100 WBC (Bld) 0.3 % Normal 0.0-1.2 [facility] Comment on above: Performed By: #### 2 4317-0 #### [facility] [address] [place] [address] Lymphocytes (Bld) [#/Vol] 2.17 10*3/uL Normal 1.00-4.80 [facility] Comment on above: Performed By: #### 2 4317-0 #### [facility] [address] [place] [address] Lymphocytes/100 WBC (Bld) 19.5 % Normal 17.9-49.6 [facility] Comment on above: Performed By: #### 2 4317-0 #### [facility] [address] [place] [address] MCH 27.7 pcg Normal 27.0-34.0 [facility] Comment on above: Performed By: #### 2 4317-0 #### [facility] [address] [place] [address] MCHC (RBC) [Mass/Vol] 30.0 g/dL Low 30.8-35.3 [facility] Comment on above: Performed By: #### 2 4317-0 #### [facility] [address] [place] [address] MCV (RBC) [Entitic vol] 92.3 fL Normal 80.0-97.0 M [facility] Comment on above: Performed By: #### 2 4317-0 #### [facility] [address] [place] [address] Monocytes (Bld) [#/Vol] 1.02 10*3/uL High 0.00-0.90 [facility] Comment on above: Performed By: #### 2 4317-0 #### [facility] [address] [place] [address] Monocytes/100 WBC (Bld) 9.2 % Normal 0.0-12.0 [facility] Comment on above: Performed By: #### 2 4317-0 #### [facility] [address] [place] [address] Neutrophils Absolute 7.53 K/mcL Normal 1.80-7.70 [facility] Comment on above: Performed By: #### 2 4317-0 #### [facility] [address] [place] [address] Neutrophils/100 WBC (Bld) 67.8 % Normal 38.1-75.5 [facility] Comment on above: Performed By: #### 2 4317-0 #### [facility] [address] [place] [address] Platelet mean volume (Bld) [Entitic vol] 9.8 fL Normal 6.2-12.1 [facility] Comment on above: Performed By: #### 2 4317-0 #### [facility] [address] [place] [address] Platelets (Bld) [#/Vol] 211 10*3/uL Normal 142-424 [facility] Comment on above: Performed By: #### 2 4317-0 #### [facility] [address] [place] [address] RBC (Bld) [#/Vol] 4.55 10*6/uL Normal 4.30-5.70 [facility] Comment on above: Performed By: #### 2 4317-0 #### [facility] [address] [place] [address] WBC (Bld) [#/Vol] 11.1 10*3/uL High 4.6-10.2 [facility] Comment on above: Performed By: #### 2 4317-0 #### [facility] ([facility]) [facility] [address] [place] [address] Basophils (Bld) [#/Vol] 0.04 10*3/uL [facility] [...] (Bld) 9.2 % 0.0 - 12.0 % [facility] Neutrophils (Bld) [#/Vol] 7.53 10*3/uL [facility] Neutrophils/100 WBC (Bld) 67.8 % 38.1 - 75.5 % [facility] Platelet mean volume (Bld) [Entitic vol] 9.8 fL [facility] Platelets (Bld) [#/Vol] 211 10*3/uL [facility] RBC (Bld) [#/Vol] 4.55 10*6/uL [facility] WBC (Bld) [#/Vol] 11.1 10*3/uL High [facility] Hepatic function 2000 panelo n 06-09-2022 Albumin [Mass/Vol] 4.2 g/dL 3.5 - 4.8 g/dL [facility] ALP [Catalytic activity/Vol] 90 U/L [facility] ALT [Catalytic activity/Vol] 21 U/L [facility] AST [Catalytic activity/Vol] 14 U/L Low [facility] Bilirubin [Mass/Vol] 0.3 mg/dL 0.3 - 1 .2 mg/dL [facility] Bilirubin.direct [Mass/Vol] 0.1 mg/dL NINF - 0.5 mg/dL [facility] Bilirubin.indirect [Mass/Vol] 0.2 mg/dL 0.0 - 1.0 mg/dL [facility] Protein [Mass/Vol] 7.0 g/dL 6.1 - 7.9 g/dL [facility] Lipaseon 06-09-2022 Lipase [Catalytic activity/Vol] 18 U/L [facility] [place] [Moles/Vol]on 2021 Interpretation and review of laboratory results Normal [facility] [place] levelon 06-09-2022 [place] [Moles/Vol] 1.50 mmol/L [facility] Magnesiumon 06-09-2022 Magnesium [Mass/Vol] 1.8 mg/dL 1.8 - 2 .5 mg/dL [facility] Magnesium [Mass/Vol]on 06-09 [place] Level 1.50 mEq/L Normal 0.50-1.50 [facility] Comment on above: Performed By: #### 1 9123-9 #### [facility] [address] [place] [address] No Panel Informationon 06-09 Interpretation and review of laboratory results Abnormal [facility] Interpretation and review of laboratory results Normal [facility] Red top grass IgE Qn (S)on 1 08-10-2021 Specimen source Nom (Unsp spec) Hold for add-ons. [facility] Comment on above: Auto resulted. [facility] SARS-CoV-2 (COVID-19) RNA NA A+probe Ql (Resp)on 06-09-2022 Interpretation and review of laboratory results Normal [facility] SARS-CoV-2 (COVID-19) RdRp gene DALIA+probe Ql (Resp) Not detected Not Detected [facility] SARS-CoV-2 RNA Resp Ql DALIA+p robeon 06-09-2022 SARS-CoV-2 (COVID-19) RNA DALIA+probe Ql (Resp) Not detected Normal Not Detected [facility] Comment on above: Performed By: #### 9 4500-6 #### [facility] [address] [place] [address] TSH Qnon 06-09-2022 Interpretation and review of laboratory results Normal [facility] Thyroid stimulating hormoneo n 06-09-2022 TSH Qn 0.98 m[IU]/L [facility] POCT GLUCOSEon 05-18-2022 Glucose [Mass/Vol] 120 mg/dL Normal [facility] Comment on above: Performed By: #### G [facility] #### [facility] - P[address] [place] [address] [facility] POCT glucoseon 05-18-2022 Yeast Wet prep Ql (Vag fld) 120 [facility] SARS-COV-2, PCRon 05-18-2022 SARS-CoV-2 (COVID-19) RNA DALIA+probe [...] during the acute phase of infection. Normal [facility] Comment on above: Performed By: #### L [id number] #### [address] SARS-CoV-2 (COVID-19) RNA DALIA+probe Ql (Resp) Negative Negative [facility] Comment on above: Negative results do not [...] Interpretation and review of laboratory results Normal [facility] POCT GLUCOSEon 05-17-2022 Glucose [Mass/Vol] 197 mg/dL Normal [facility] Comment on above: Performed By: #### L [id number], [id number] #### [address] POCT glucoseon 05-17-2022 Yeast Wet prep Ql (Vag fld) 197 [facility] POCT GLUCOSEon 05-16-2022 Glucose [Mass/Vol] 160 mg/dL Normal [facility] Comment on above: Performed By: #### L [id number], [id number], [id number] #### [address] POCT glucoseon 05-16-2022 Yeast Wet prep Ql (Vag fld) 160 [facility] HbA1c (Bld) [Mass fraction]o n 05-15-2022 Interpretation and review of laboratory results Normal [facility] Hemoglobin A1con 05-15-2022 HbA1c (Bld) [Mass fraction] 5.7 % NINF - 6.0 % [facility] Comment on above: Reference Interval f or %A1c: %A1c (NGSP) Interpretation <6.0% Non-Diabetic Range >6.5% Action Suggested Lipid panelon 05-15-2022 Cholesterol [Mass/Vol] 132 mg/dL NINF - 200 mg/dL [facility] Cholesterol in HDL [Mass/Vol] 45.7 mg/dL 40.0 - 59.9 mg/dL [facility] Cholesterol in LDL [Mass/Vol] 56.3 mg/dL NINF - 100 mg/dL [facility] Comment on above: LDL REFERENCE RANGE: Optimal <100 mg/dl Near Optimal 100-129 mg/dL Borderline High 130-159 mg/dL High 160-189 mg/dL Very High >=190 mg/dL Cholesterol in VLDL [Mass/Vol] 30 mg/dL [facility] mg/dL [facility] Interpretation and review of laboratory results Normal [facility] Triglyceride [Mass/Vol] 150 mg/dL NINF - 150 mg/dL [facility] Syphilis Treponema Antibodyo n 05-15-2022 T. pallidum Ab IA Ql (S) Non-Reactive Nonreactive [facility] T. pallidum Ab IA Ql (S)on 07-15-2021 Interpretation and review of laboratory results Normal [facility] Thyroid Cascadeon 05-15-2022 Interpretation and review of laboratory results Normal [facility] Tryptophan/Creatinine (U) [Ratio] 0.615 [facility] BASIC METABOLIC PANELon 04-28 Anion gap [Moles/Vol] 5 mmol/L Low 8-12 [facility] Comment on above: Performed By: #### 4 [id number], [id number], [id number] #### [address] Calcium [Mass/Vol] 9.3 mg/dL Normal 8.4-10.4 [facility] Comment on above: Performed By: #### 4 [id number], [id number], [id number] #### [address] [place] [address] [place] Chloride [Moles/Vol] 105 mmol/L Normal 96-109 [facility] [employer] [facility] Comment on above: Performed By: #### 4 [id number], [id number], [id number] #### [address] [place], [place] [address] CO2 [Moles/Vol] 28.5 mmol/L Normal 22-30 [facility] Comment on above: Performed By: #### 4 [id number], [id number], [id number] #### [address] Creatinine [Mass/Vol] 1.10 mg/dL Normal 0.66-1.25 [facility] Team [employer] [facility] Comment on above: Performed By: #### 4 [id number], [id number], [id number] #### [address] GLOMERULAR FILTRATION RATE ML/MIN/1.73 SQ M.PREDICTED 80.8 mL/min/1.73m*2 Normal >=60.0 [facility] Comment on above: Result Comment: eGFR calculation [...] Kidney Int Suppl.2013;3:1-150 Performed By: #### 4 [id number], [id number], [id number] #### [address] [place] [address] [facility] Glucose [Mass/Vol] 92.5 mg/dL Normal 65-100 [facility] Team [employer] [facility] Comment on above: Performed By: #### 4 [id number], [id number], [id number] #### [address] [place] [address] [facility] Potassium [Moles/Vol] 4.2 mmol/L Normal 3.6-5.1 [facility] [employer] Comment on above: Performed By: #### 4 [id number], [id number], [id number] #### [address] [place] [address] [facility] Sodium [Moles/Vol] 138.1 mmol/L Normal 135-147 [facility] Comment on above: Performed By: #### 4 [id number], [id number], [id number] #### [address] [place] [address] [facility] Urea nitrogen [Mass/Vol] 20.7 mg/dL Normal 8-26 [facility] Comment on above: Performed By: #### 4 [id number], [id number], [id number] #### [address] [place] [address] [facility] Basic metabolic panel aka Ch em 805-14-2022 Anion gap [Moles/Vol] 5 mmol/L Low 8 - 12 mmol/L [facility] Calcium [Mass/Vol] 9.3 mg/dL 8.4 - 10. 4 mg/dL [facility] Calcium hydrogen phosphate dihydrate crystals LM Ql (Urine sed) 20.7 mg/dL 8 - 26 mg/dL [facility] Chloride [Moles/Vol] 105 mmol/L 96 - 10 9 mmol/L [facility] CMV IgM IF Ql 28.5 mmol/L 22 - 30 mmol/L [facility] Creatinine [Mass/Vol] 1.10 mg/dL 0.66 - 1.25 mg/dL [facility] GFR/1.73 sq M.predicted MDRD (S/P/Bld) [Vol rate/Area] 80.8 mL/min/{1.73_m2} - PINF [facility] Comment on above: eGFR calculation bas ed [...] [Mass/Vol] 92.5 mg/dL 65 - 100 mg/dL [facility] Interpretation and review of laboratory results Abnormal [facility] Potassium [Moles/Vol] 4.2 mmol/L 3.6 - 5.1 mmol/L [facility] Sodium [Moles/Vol] 138.1 mmol/L 135 - 147 mmol/L [facility] CARBAMAZEPINE LEVEL, TOTALon 05-14-2022 CARBAMAZEPINE 6.4 ug/mL Normal 4.0-12.0 [facility] Comment on above: Performed By: #### 4 [id number], [id number], [id number] #### [address] CBC AND DIFFERENTIALon 05-14 ABSOLUTE BASOPHIL 0.1 x10*3/uL Normal 0.0-0.1 [facility] Comment on above: Performed By: #### 4 [id number] #### [address] ABSOLUTE EOSINOPHIL 0.3 x10*3/uL Normal 0.1-0.3 [facility] Comment on above: Performed By: #### 4 [id number] #### [address] ABSOLUTE IMMATURE GRANULOCYTES 0.0 x10*3/uL Normal 0.0-0.1 [facility] Comment on above: Performed By: #### 4 [id number] #### [address] ABSOLUTE LYMPH 2.3 x10*3/uL Normal 1.2-3.3 [facility] Comment on above: Performed By: #### 4 [id number] #### [address] ABSOLUTE MONO 0.7 x10*3/uL High 0.2-0.6 [facility] Comment on above: Performed By: #### 4 [id number] #### [address] ABSOLUTE NEUTROPHIL 5.9 x10*3/uL Normal 2.4-6.6 [facility] Comment on above: Performed By: #### 4 [id number] #### [address] Basophils/100 WBC (Bld) 0.5 % Normal [facility] Comment on above: Performed By: #### 4 [id number] #### [address] Eosinophils/100 WBC (Bld) 3.5 % Normal [facility] [facility] Comment on above: Performed By: #### 4 [id number] #### [address] Erythrocyte distribution width (RBC) [Ratio] 13.8 % Normal 11.5-14.5 [facility] Comment on above: Performed By: #### 4 [id number] #### [address] Hematocrit (Bld) [Volume fraction] 39.4 % Normal 37.7-51.1 [facility] Comment on above: Performed By: #### 4 [id number] #### [address] Hemoglobin (Bld) [Mass/Vol] 12.2 g/dL Low 12.8-17.7 [facility] Comment on above: Performed By: #### 4 [id number] #### [address] Immature granulocytes/100 WBC (Bld) 0.2 % [facility] Comment on above: Performed By: #### 4 [id number] #### [address] Lymphocytes/100 WBC (Bld) 24.4 % Normal [facility] Comment on above: Performed By: #### 4 [id number] #### [address] MCH (RBC) [Entitic mass] 28.6 pg Normal 27.0-34.2 [facility] Comment on above: Performed By: #### 4 [id number] #### [address] MCHC (RBC) [Mass/Vol] 31.0 g/dL Low 31.4-36.2 [facility] Comment on above: Performed By: #### 4 [id number] #### [address] MCV (RBC) [Entitic vol] 92.5 fL Normal 80.6-99 G [facility] Comment on above: Performed By: #### 4 [id number] #### [address] Monocytes/100 WBC (Bld) 7.5 % Normal [facility] Comment on above: Performed By: #### 4 [id number] #### [address] Neutrophils/100 WBC (Bld) 63.9 % Normal [facility] Comment on above: Performed By: #### 4 [id number] #### [address] NUCLEATED RED BLOOD CELLS AUTO 0.0 % Normal 0.0-1.0 [facility] Comment on above: Performed By: #### 4 [id number] #### [address] PLATELET COUNT 192 x10*3/uL Normal 150-400 [facility] Comment on above: Performed By: #### 4 [id number] #### [address] RED BLOOD CELL COUNT 4.26 x10*6/uL Normal 3.70-5.70 [facility] Comment on above: Performed By: #### 4 [id number] #### [address] WHITE BLOOD CELLS 9.3 x10*3/uL Normal 4.3-10.3 [facility] Comment on above: Performed By: #### 4 [id number] #### [address] CBC with DifferentialOrdered By: Background Lab on 05-14-2022 Absolute Immature Granulocytes 0.0 [facility] Age [Time] 92.5 fL 80.6 - 99 fL [facility] Age [Time] 28.6 pg 27.0 - 34.2 pg [facility] Age [Time] 31.0 g/dL Low 31.4 - 36.2 g/dL [facility] B. burgdorferi IgM IB Ql (CSF) 24.4 % [facility] Loaded Pocket Basophils (Bld) [#/Vol] 0.1 10*3/uL [facility] Loaded Pocket Basophils/100 WBC (Body fld) 0.5 % [facility] Eosinophils (Bld) [#/Vol] 2.3 10*3/uL [facility] Eosinophils (Bld) [#/Vol] 0.7 10*3/uL [facility] Eosinophils (Bld) [#/Vol] 0.3 10*3/uL [facility] Eosinophils/100 WBC (Bld) 3.5 % [facility] Erythrocyte distribution width (RBC) [Ratio] 13.8 % 11.5 - 14.5 % [facility] Hematocrit (Bld) [Volume fraction] 39.4 % 37.7 - 51.1 % [facility] Hexanoylglycine (U) [Moles/Vol] 12.2 g/dL Low 12.8 - 17.7 g/dL [facility] Immature granulocytes/100 WBC (Bld) 0.2 % [facility] Interpretation and review of laboratory results Abnormal [facility] Monocytes/100 WBC (Bld) 7.5 % [facility] (P) [Mass/Vol] 63.9 % [facility] Neutrophils (Bld) [#/Vol] 5.9 10*3/uL [facility] Nucleated RBC/100 WBC (Bld) [Ratio] 0.0 % 0.0 - 1.0 % [facility] Platelets (Bld) [#/Vol] 192 10*3/uL [facility] RBC (Bld) [#/Vol] 4.26 10*6/uL [facility] WBC LM Ql (Sput) 9.3 [facility] Carbamazepine level, totalon 05-14-2022 carBAMazepine 10,11-Epoxide [Mass/Vol] 6.4 ug/mL 4.0 - 12.0 ug/mL [facility] Interpretation and review of laboratory results Normal [facility] HEMOGLOBIN A1Con 05-14-2022 HbA1c (Bld) [Mass fraction] 5.7 % Normal <=6.0 [facility] Comment on above: Result Comment: Refe rence Interval for %A1c: %A1c (NGSP) Interpretation <6.0% Non-Diabetic Range >6.5% Action Suggested Performed By: #### 4 [id number] #### [facility] [address] [place] [address] LIPID PANELon 05-14-2022 Cholesterol [Mass/Vol] 132 mg/dL Normal <=200 [facility] Comment on above: Performed By: #### 4 [id number], [id number], [id number] #### [facility] [address] [place] [address] Cholesterol in HDL [Mass/Vol] 45.7 mg/dL Normal 40.0-59.9 [facility] Comment on above: Performed By: #### 4 [id number], [id number], [id number] #### [address] LDL CHOLESTEROL CALCULATED 56.3 mg/dL Normal <=100 [facility] Comment on above: Result Comment: LDL REFERENCE RANGE: Optimal <100 mg/dl Near Optimal 100-129 mg/dL Borderline High 130-159 mg/dL High 160-189 mg/dL Very High >=190 mg/dL Performed By: #### 4 [id number], [id number], [id number] #### [facility] [address] [place] [address] Triglyceride [Mass/Vol] 150 mg/dL Normal <=150 [facility] Comment on above: Performed By: #### 4 [id number], [id number], [id number] #### [facility] [address] [place] [address] VLDL CHOLESTEROL MAGALY 30 mg/dL Normal <=41 [facility] Comment on above: Performed By: #### 4 [id number], [id number], [id number] #### [facility] [address] [place] [id number] LITHIUM LEVELon 05-14-2022 LITHIUM LEVEL 0.5 mmol/L Low 0.6-1.2 [facility] Comment on above: Performed By: #### L [id number], [id number], [id number] #### [facility] [address] [place] [address] [place] levelon 05-14-2022 Interpretation and review of laboratory results Abnormal [facility] [place] [Moles/Vol] 0.5 mmol/L Low 0.6 - 1. 2 mmol/L [facility] No Panel Informationon 05-14 Extra Tube Hold for add-ons. [facility] SYPHILIS TREPONEMA ANTIBODYo n 05-14-2022 SYPHILIS TREPONEMA ANTIBODY Non-Reactive Normal Nonreactive [facility] Comment on above: Performed By: #### L [id number], [id number], [id number] #### [address] THYROID CASCADE PANELon 11-1 TSH CASCADE 0.615 uIU/mL Normal 0.465-4.680 [facility] Comment on above: Performed By: #### L [id number], [id number], [id number] #### [address] TOXICOLOGY SCREEN, URINEon 1 07-14-2021 AMPHETAMINE/METH Not detected Normal Not Detecte d (Cutoff <1000 ng/mL) [facility] Comment on above: Order Comment: Notes :1. Screening results should be considered presumptive unless the presence of the analyte has been confirmed by a reference lab2. All drug groups are analyzed on urine specimens Performed By: #### L [id number], [id number], [id number] #### [address] BARBITURATES Not detected Normal Not Detected (Cutoff <200 ng/mL) [facility] Comment on above: Order Comment: Notes :1. Screening results should be considered presumptive unless the presence of the analyte has been confirmed by a reference lab2. All drug groups are analyzed on urine specimens Performed By: #### L [id number], [id number], [id number] #### [address] BENZODIAZEPINES Not detected Normal Not Detected (Cutoff <200 ng/mL) [facility] Comment on above: Order Comment: Notes :1. Screening results should be considered presumptive unless the presence of the analyte has been confirmed by a reference lab2. All drug groups are analyzed on urine specimens Performed By: #### L [id number], [id number], [id number] #### [facility] [address] [place] [address] Cocaine Ql (U) Not detected Normal Not Detected (Cutoff <300 ng/mL) [facility] Comment on above: Order Comment: Notes :1. Screening results should be considered presumptive unless the presence of the analyte has been confirmed by a reference lab2. All drug groups are analyzed on urine specimens Performed By: #### L [id number], [id number], [id number] #### [facility] [address] [place] [address] FENTANYL Not detected Normal Not Detected (Cutoff 1.0 ng/mL) [facility] Comment on above: Order Comment: Notes :1. Screening results should be considered presumptive unless the presence of the analyte has been confirmed by a reference lab2. All drug groups are analyzed on urine specimens Performed By: #### L [id number], [id number], [id number] #### [address] MARIJUANA/THC Not detected Normal Not Detected (Cutoff <50 ng/mL) [facility] Comment on above: Order Comment: Notes :1. Screening results should be considered presumptive unless the presence of the analyte has been confirmed by a reference lab2. All drug groups are analyzed on urine specimens Performed By: #### L [id number], [id number], [id number] #### [address] OPIATES Not detected Normal Not Detected (Cutoff <300 ng/mL) [facility] Comment on above: Order Comment: Notes :1. Screening results should be considered presumptive unless the presence of the analyte has been confirmed by a reference lab2. All drug groups are analyzed on urine specimens Performed By: #### L [id number], [id number], [id number] #### [address] PCP Not detected Normal Not Detected (Cutoff <25 ng/mL) [facility] Comment on above: Order Comment: Notes :1. Screening results should be considered presumptive unless the presence of the analyte has been confirmed by a reference lab2. All drug groups are analyzed on urine specimens Performed By: #### L [id number], [id number], [id number] #### [address] Toxicology screen, urineon 07-14-2021 Amphetamines Ql (U) Not detected Not Dete cted (Cutoff <1000 ng/mL) [facility] Barbiturates [Mass/Vol] Not detected Not Detected (Cutoff <200 ng/mL) [facility] Benzodiazepines Screen [Mass/Vol] Not detected Not Detected (Cutoff <200 ng/mL) [facility] Cannabinoids tested Screen Nom (U) Not detected Not Detected (Cutoff <50 ng/mL) [facility] CMV IgM IF Ql Not detected Not Detected (Cutoff <300 ng/mL) [facility] Felbamate [Mass/Vol] Not detected Not Det ected (Cutoff 1.0 ng/mL) [facility] Interpretation and review of laboratory results Normal [facility] Opiates tested Screen Nom (U) Not detected Not Detected (Cutoff <300 ng/mL) [facility] Phencyclidine (U) [Mass/Vol] Not detected Not Detected (Cutoff <25 ng/mL) [facility] Notes: 1. Screening results should be considered presumptive unless the presence of the analyte has been confirmed by a reference lab 2. All drug groups are analyzed on urine specimens [facility] URINALYSIS WITH REFLEX CULTU REon 05-14-2022 Appearance (U) Clear Normal [facility] Comment on above: Performed By: #### 4 [id number] #### [address] BILIRUBIN UA Negative Normal Negative [facility] Comment on above: Performed By: #### 4 [id number] #### [address] Color (U) Yellow Normal [facility] Comment on above: Performed By: #### 4 [id number] #### [address] Glucose Ql (U) Negative Normal Negative [facility] Comment on above: Performed By: #### 4 [id number] #### [address] Ketones Ql (U) Negative Normal Negative [facility] Comment on above: Performed By: #### 4 [id number] #### [address] LEUKOESTERASE Negative Normal Negative [facility] Comment on above: Performed By: #### 4 [id number] #### [place] [address] [place] Nitrite Ql (U) Negative Normal Negative [facility] Comment on above: Performed By: #### 4 [id number] #### [address] OCCULT BLD Negative Normal Negative [facility] Comment on above: Performed By: #### 4 [id number] #### [address] PH, URINE 7.0 Normal [facility] Comment on above: Performed By: #### 4 [id number] #### [address] Protein Ql (U) Negative Normal Negative [facility] Comment on above: Performed By: #### 4 [id number] #### [address] RBC LM.HPF (Urine sed) [#/Area] /[HPF] Normal <=5 [facility] Comment on above: Performed By: #### 4 [id number] #### [address] SPECIFIC GRAVITY, URINE 1.004 Normal [facility] Comment on above: Performed By: #### 4 [id number] #### [address] UROBILINOGEN UA Negative Normal <2.0 [facility] Comment on above: Performed By: #### 4 [id number] #### [address] WBC LM.HPF (Urine sed) [#/Area] 3 /[HPF] Normal <=5 [facility] Comment on above: Performed By: #### 4 [id number] #### [address] Urinalysis complete W Reflex Culture panel (U)on 05-14-2022 Acetone [Mass/Vol] Negative [facility] [employer] Appearance (Body fld) Clear [facility] Bilirubin Ql (U) Negative Negative [facility] Color (Stone) Yellow [facility] G6PD (RBC) [Catalytic activity/Vol] Negative Negative [facility] Hemoglobin Ql (U) NINF [facility] Hemoglobin.gastrointest inal (Stl) [Mass/Mass] Negative Negative [facility] Leukocyte esterase Test strip Ql (U) Negative Negative [facility] Nitrite Test strip (U) [Mass/Vol] Negative Negative [facility] System pH (Rhina fld) 7.0 [facility] Protein (U) [Mass/Vol] Negative Negative [facility] Specific gravity (U) [Rel density] 1.004 [facility] Urobilinogen Qn (U) Negative NINF - 2.0 [facility] WBC (U) [#/Vol] 3 /uL NINF [facility] US DUPLEX VENOUS LEGS BILATE Shayy 05-05-2022 US DUPLEX VENOUS LEGS BILATERAL Patient Info Name: RIGO GARCIA Age: 52 years : 1970 Gender: Male Exam Date: 05/04/2022 8:32 PM Patient Status: Emergency [employer] Inside: Holly Abad RVT, RDCS Attending Physician: DAVID JI Indications R22.43 - Localized swelling, mass and lump, lower limb, bilateral Procedure Description 71845 Duplex examination using B-mode, color and spectral Doppler of extremity veins including responses to compression and other maneuvers; complete bilateral study. Conclusions * No evidence of deep or superficial vein thrombosis in the right or left lower extremities. . Report Signatures Finalized by Brittani Heredia DO, RVT, RPVI FSSHANNON on 05/05/2022 09:30 AM Normal [facility] US DUPLEX VENOUS LEGS BILATE Shayy 05-04-2022 US DUPLEX VENOUS LEGS BILATERAL Patient Info Name: RIGO GARCIA Age: 52 years : 1970 Gender: Male Exam Date: 05/04/2022 8:32 PM Patient Status: Emergency [employer] Inside: Holly Abad RVT, RDCS Attending Physician: DAVID JI Indications R22.43 - Localized swelling, mass and lump, lower limb, bilateral Procedure Description 96868 Duplex examination using B-mode, color and spectral [...] May 05, 2022 9:31:05 AM EST Normal [facility] XR CHEST PA/APon 05-04-2022 XR CHEST [...] cardiopulmonary process based on AP image alone. [employer] Workstation ID: [id number] Dictated by: LAURA DONAHUE on WedMay 04, 2022 9:11:28 PM EST Transcribed by: ANITA TUCKER on WedMay 04, 2022 9:13:44 PM EST Finalized by: LAURA DONAHUE on WedMay 04, 2022 10:19:49 PM EST Normal [facility] Comment on above: Order Comment: Injur y/Trauma or Illness?:Illness/Other How long have you had these symptoms (acute/chronic)?:Acute Reason for exam?:cough History of cancer?:n Surgeries, chemotherapy, or radiation?:n Type of Exam?:Initial Additional signs and symptoms?: COVID-19, MOLECULARon 2021 SARS-CoV-2 (COVID-19) RNA DALIA+probe Ql (Unsp spec) Not detected Normal Not Detected [facility] Comment on above: Order Comment: This [...] at the following links: For Healthcare Providers: https://www.fda.gov/media/783335/download For Patients: https://www.fda.gov/media/454405/download Performed By: #### L [id number] #### LAB [address] [address] Jamar Remy M.D. [id number] XR MODIFIED BARIUM SWALLOWon 02-19-2022 XR MODIFIED [...] WedFeb 20, 2022 6:54:23 AM EDT Normal [facility] Comment on above: Order Comment: Injur y/Trauma or Illness?:Illness/Other How long have you had these symptoms (acute/chronic)?:Acute Reason for exam?:dysphagia Type of Exam?:Ongoing Additional signs and symptoms?: Fluoro time in minutes:1.7 Fluoro dose in mGy?:8.54 COVID-19, MOLECULARon 2021 SARS-CoV-2 (COVID-19) RNA DALIA+probe Ql (Unsp spec) Not detected Normal Not Detected [facility] Comment on above: Order Comment: This [...] at the following links: For Healthcare Providers: https://www.fda.gov/media/083486/download For Patients: https://www.fda.gov/media/458455/download Performed By: #### L [id number] #### LAB [address] [place] [address] Jamar Remy M.D. [id number] XR FOR MRI CLEARANCEon 02-17 XR FOR [...] WedFeb 17, 2022 9:54:36 AM EDT Normal [facility] Comment on above: Order Comment: MRI [...] No acute findings. No hemorrhage. No mass. [facility] Workstation ID: [id number] Dictated by: MOOSE OROZCO on WedFeb 16, 2022 3:34:33 PM EDT Transcribed by: DEVYN MEYERS on WedFeb 16, 2022 3:46:44 PM EDT Finalized by: MOOSE OROZCO on WedFeb 16, 2022 10:32:15 PM EDT Normal [facility] Comment on above: Order Comment: Injur [...] clear. Central intracranial flow voids of the iliamna of [place] are visualized, implying that the [...] WedFeb 17, 2022 2:59:50 PM EDT Normal [facility] Comment on above: Order Comment: Injur [...] WedFeb 16, 2022 4:07:11 PM EDT Normal [facility] Comment on above: Order Comment: Injur y/Trauma or Illness?:Illness/Other How long have you had these symptoms (acute/chronic)?:Acute Reason for exam?:ams History of cancer?:n Surgeries, chemotherapy, or radiation?:n Type of Exam?:Initial Additional signs and symptoms?: Basic metabolic 2000 panelon 02-11-2022 Anion gap [Moles/Vol] 10 mmol/L Normal 6-18 [facility] Comment on above: Performed By: #### 2 4321-2 #### [facility] [address] [place] [address] Calcium [Mass/Vol] 10.4 mg/dL High 8.9-10.3 [facility] Comment on above: Performed By: #### 2 4321-2 #### [facility] [address] [place] [address] Chloride [Moles/Vol] 108 mmol/L High 98-107 [facility] Comment on above: Performed By: #### 2 4321-2 #### [facility] [address] [place] [address] CO2 [Moles/Vol] 27 mmol/L Normal 22-32 [facility] Comment on above: Performed By: #### 2 4321-2 #### [facility] [address] [place] [address] Creatinine [Mass/Vol] 1.28 mg/dL Normal 0.60-1.30 [facility] Comment on above: Performed By: #### 2 4321-2 #### [facility] [address] [place] [address] GFR/1.73 sq M.predicted among non-blacks MDRD (S/P/Bld) [Vol rate/Area] 64 mL/min/{1.73_m2} Normal >=60 [facility] Comment on above: Performed By: #### 2 4321-2 #### [facility] [address] [place] [address] Glucose [Mass/Vol] 165 mg/dL High 70-99 [facility] Comment on above: Performed By: #### 2 4321-2 #### [facility] [address] [place] [address] Potassium [Moles/Vol] 4.1 mmol/L Normal 3.6-5.1 [facility] Comment on above: Performed By: #### 2 4321-2 #### [facility] [address] [place] [address] Sodium [Moles/Vol] 145 mmol/L Normal 136-145 [facility] Comment on above: Performed By: #### 2 4321-2 #### [facility] [address] [place] [address] Urea nitrogen [Mass/Vol] 19 mg/dL Normal 8-20 [facility] Comment on above: Performed By: #### 2 4321-2 #### [facility] [address] [place] [address] Urea nitrogen/Creatinine [Mass ratio] 14.8 mg/mg Normal 12.0-20.0 [facility] Comment on above: Performed By: #### 2 4321-2 #### [facility] [address] [place] [address] Hemogram and platelets WO di fferential panel (Bld)on 02-11-2022 Basophils (Bld) [#/Vol] 0.10 10*3/uL Normal 0.00-0.20 [facility] Comment on above: Performed By: #### 2 4317-0 #### [facility] [address] [place] [address] Basophils/100 WBC (Bld) 0.5 % Normal 0.0-2.0 M [facility] Comment on above: Performed By: #### 2 4317-0 #### [facility] [address] [place] [address] Eosinophils (Bld) [#/Vol] 0.20 10*3/uL Normal 0.00-0.70 [facility] Comment on above: Performed By: #### 2 4317-0 #### [facility] [address] [place] [address] Eosinophils/100 WBC (Bld) 1.9 % Normal 0.0-7.0 [facility] Comment on above: Performed By: #### 2 7-0 #### [facility] [address] [place] [address] Erythrocyte distribution width (RBC) [Ratio] 14.5 % Normal 11.0-14.8 [facility] Comment on above: Performed By: #### 2 4317-0 #### [facility] [address] [place] [address] Hematocrit (Bld) [Volume fraction] 49.6 % High 39.0-49.0 [facility] Comment on above: Performed By: #### 2 4317-0 #### [facility] [address] [place] [address] Hemoglobin (Bld) [Mass/Vol] 15.6 g/dL Normal 13.5-17.5 [facility] Comment on above: Performed By: #### 2 4317-0 #### [facility] [address] [place] [address] Lymphocytes (Bld) [#/Vol] 1.50 10*3/uL Normal 1.00-4.80 [facility] Comment on above: Performed By: #### 2 4317-0 #### [facility] [place] ([facility] [address] [place] [address] 56683 Lymphocytes/100 WBC (Bld) 13.1 % Low 22.0-44.0 [facility] Comment on above: Performed By: #### 2 4317-0 #### [facility] [place] ([facility] [address] [place] [address] 51204 MCH 29.0 pcg Normal 27.0-34.0 [facility] Comment on above: Performed By: #### 2 4317-0 #### [facility] [place] ([facility] [address] [place] [address] 00295 MCHC (RBC) [Mass/Vol] 31.4 g/dL Low 32.0-36.0 [facility] Comment on above: Performed By: #### 2 7-0 #### [facility] [place] ([facility] [address] [place] [address] 96055 MCV (RBC) [Entitic vol] 92.5 fL Normal 80.0-97.0 M [facility] Comment on above: Performed By: #### 2 7-0 #### [facility] [place] ([facility] [address] [place] [address] 42054 Monocytes (Bld) [#/Vol] 0.60 10*3/uL Normal 0.00-0.90 [facility] Comment on above: Performed By: #### 2 4317-0 #### [facility] [place] [facility] [address] [place] [address] 79402 Monocytes/100 WBC (Bld) 5.4 % Normal 0.0-12.0 [facility] Comment on above: Performed By: #### 2 4317-0 #### [facility] [place] [facility] [address] [place] [address] 92018 Neutrophils Absolute 9.00 K/mcL High 1.80-7.70 [facility] Comment on above: Performed By: #### 2 4317-0 #### [facility] [place] [facility] [address] [place] [address] 13386 Neutrophils/100 WBC (Bld) 79.1 % High 40.0-70.0 [facility] Comment on above: Performed By: #### 2 4317-0 #### [facility] [place] [facility] [address] [place] [address] Platelet mean volume (Bld) [Entitic vol] 9.5 fL Normal 6.2-12.1 [facility] Comment on above: Performed By: #### 2 4317-0 #### [facility] [place] [facility] [address] [place] [address] 64549 Platelets (Bld) [#/Vol] 206 10*3/uL Normal 142-424 [facility] Comment on above: Performed By: #### 2 4317-0 #### [facility] [place] [facility] [address] [place] [address] 77292 RBC (Bld) [#/Vol] 5.36 10*6/uL Normal 4.30-5.70 [facility] Comment on above: Performed By: #### 2 4317-0 #### [facility] [place] [facility] [address] [place] [address] 61193 WBC (Bld) [#/Vol] 11.4 10*3/uL High 4.6-10.2 [facility] Comment on above: Performed By: #### 2 4317-0 #### [facility] [place] [facility] [address] [place] [address] 96475 Acetaminophen LevelOrdered B y: Joon Atkinson on 12-12-2020 Acetaminophen [Mass/Vol] ug/mL [facility] Alcohol, MedicalOrdered By: Joon Atkinson on 12-12-2020 Ethanol [Mass/Vol] mg/dL <10.0 mg/dL [facility] Comment on above: Alcohol cutoff: <10. 00 mg/dL = None Detected CBC WITH AUTO DIFFERENTIALOr dered By: Joon Atkinson on 12-12-2020 Basophils (Bld) [#/Vol] 0.03 10*3/uL [facility] Basophils/100 WBC (Bld) 0.3 % [facility] Eosinophils (Bld) [#/Vol] 0.32 10*3/uL [facility] Eosinophils/100 WBC (Bld) 3.6 % [facility] Erythrocyte distribution width (RBC) [Entitic vol] 14.6 % 11.6 - 14.8 % [facility] Hematocrit (Bld) [Volume fraction] 42.0 % 41.0 - 53.0 % [facility] Hemoglobin (Bld) [Mass/Vol] 12.8 g/dL Low 13.5 - 17.5 g/dL [facility] Immature granulocytes (Bld) [#/Vol] 0.02 10*3/uL [facility] Immature granulocytes/100 WBC (Bld) 0.20 % [facility] Comment on above: The IG parameter is the percentage of metamyelocytes, myelocytes and promyelocytes. An immature granulocyte count (IG) of 1% or more suggests the possibility of infection, an IG count of 3% is very likely related to an infection. Interpretation and review of laboratory results Abnormal [facility] Lymphocytes (Bld) [#/Vol] 2.23 10*3/uL [facility] Lymphocytes/100 WBC (Bld) 24.9 % [facility] MCH (RBC) [Entitic mass] 28.1 pg 26.0 - 34.0 pg [facility] MCHC (RBC) [Mass/Vol] 30.5 g/dL Low 31.0 - 37.0 g/dL [facility] MCV (RBC) [Entitic vol] 92.1 fL 80.0 - 100.0 fL [facility] Monocytes (Bld) [#/Vol] 0.86 10*3/uL [facility] Monocytes/100 WBC (Bld) 9.6 % [facility] Neutrophils (Bld) [#/Vol] 5.49 10*3/uL [facility] Neutrophils/100 WBC (Bld) 61.4 % [facility] Nucleated RBC (Bld) [#/Vol] 0.00 10*3/uL [facility] Nucleated RBC/100 WBC (Bld) [Ratio] 0.0 % [facility] Platelet mean volume (Bld) [Entitic vol] 10.0 fL 9.4 - 12.4 fL [facility] Platelets (Bld) [#/Vol] 219 10*3/uL [facility] RBC (Bld) [#/Vol] 4.56 10*6/uL [facility] WBC (Bld) [#/Vol] 8.95 10*3/uL [facility] Comprehensive metabolic 2000 panelOrdered By: Joon Atkinson on 12-12-2020 Albumin [Mass/Vol] 4.3 g/dL 3.2 - 5.2 g/dL [facility] ALP [Catalytic activity/Vol] 140 U/L 40 - 150 U/L [facility] ALT [Catalytic activity/Vol] 10 U/L 0 - 40 U/L [facility] Anion gap [Moles/Vol] 14 mmol/L 10 - 2 0 mmol/L [facility] AST [Catalytic activity/Vol] 18 U/L 0 - 45 U/L [facility] Comment on above: Slightly Hemolyzed Bilirubin [Mass/Vol] mg/dL 0.0 - 1 .3 mg/dL [facility] Calcium [Mass/Vol] 9.5 mg/dL 8.4 - 10. 2 mg/dL [facility] Chloride [Moles/Vol] 102 mmol/L 98 - 10 8 mmol/L [facility] Creatinine [Mass/Vol] 1.02 mg/dL 0.50 - 1.30 [facility] GFR/1.73 sq M.predicted CKD-EPI (S/P/Bld) [Vol rate/Area] 99 >=60 mL/min/1.73 m2 [facility] Glucose [Mass/Vol] 98 mg/dL 65 - 99 mg/dL [facility] HCO3 [Moles/Vol] 29 mmol/L 21 - 32 mmol/L [facility] Interpretation and review of laboratory results Normal [facility] Potassium [Moles/Vol] 4.0 mmol/L 3.5 - 5.1 mmol/L [facility] Protein [Mass/Vol] 6.8 g/dL 6.0 - 8.0 g/dL [facility] Sodium [Moles/Vol] 141 mmol/L 135 - 145 mmol/L [facility] Urea nitrogen [Mass/Vol] 11 mg/dL 8 - 25 mg/dL [facility] Urea nitrogen/Creatinine [Mass ratio] 10.8 mg/mg [facility] The eGFR should be used for monitoring renal function only and not for medication dosing. [facility] GGTOrdered By: Joon Atkinson on 12-12-2020 Gamma glutamyl transferase [Catalytic activity/Vol] 24 U/L 11 - 51 U/L [facility] Mitchell TopOrdered By: Joon holly on 12-12-2020 Extra Tube Hold for add-ons. [facility] Comment on above: Auto resulted. [place] LevelOrdered By: Ganesh Atkinson on 12-12-2020 [place] [Moles/Vol] 0.6 mmol/L 0.6 - 1. 2 mmol/L [facility] [place] [Moles/Vol]Ordered B y: Joon Atkinson on 12-12-2020 Interpretation and review of laboratory results Normal [facility] No Panel InformationOrdered By: Joon Atkinson on 12-12-2020 [facility] Interpretation and review of laboratory results Normal [facility] Interpretation and review of laboratory results Normal [facility] Salicylate LevelOrdered By: Joon Atkinson on 12-12-2020 Salicylates [Mass/Vol] mg/dL Low 10.0 - 20.0 mg/dL [facility] Salicylates [Mass/Vol]Ordere d By: Joon Atkinson on 12-12-2020 Interpretation and review of laboratory results Abnormal [facility] TSH DL <= 0.005 mIU/L QnOrde red By: Joon Atkinson on 12-12-2020 TSH Qn 1.02 m[IU]/L [facility] VALPROIC ACID/DEPAKOTEon VALPROIC ACID/DEPAKOTE <10 Low 50-100 [facility] Comment on above: Result Comment: Resu lts reported at less than analytical measurment of instr ument. Performed By: #### C #### [facility] [address] [place], [place] [address] Alcohol, Medicalon 0 Ethanol [Mass/Vol] mg/dL <10.0 mg/dL [facility] Comment on above: Alcohol cutoff: <10. 00 mg/dL = None Detected Basic Metabolic Panelon - Anion gap [Moles/Vol] 10 mmol/L 10 - 2 0 mmol/L [facility] Calcium [Mass/Vol] 9.7 mg/dL 8.4 - 10. 2 mg/dL [facility] Chloride [Moles/Vol] 102 mmol/L 98 - 10 8 mmol/L [facility] Creatinine [Mass/Vol] 1.12 mg/dL 0.50 - 1.30 [facility] GFR/1.73 sq M predicted among non-blacks MDRD (S/P/Bld) [Vol rate/Area] The eGFR should be used for monitoring renal function only and not for medication dosing. [facility] GFR/1.73 sq M.predicted CKD-EPI (S/P/Bld) [Vol rate/Area] 88 >=60 mL/min/1.73 m2 [facility] Glucose [Mass/Vol] 84 mg/dL 65 - 99 mg/dL [facility] HCO3 [Moles/Vol] 29 mmol/L 21 - 32 mmol/L [facility] Interpretation and review of laboratory results Abnormal [facility] Potassium [Moles/Vol] 4.2 mmol/L 3.5 - 5.1 mmol/L [facility] Sodium [Moles/Vol] 137 mmol/L 135 - 145 mmol/L [facility] Urea nitrogen [Mass/Vol] 8 mg/dL 8 - 25 mg/dL [facility] Urea nitrogen/Creatinine [Mass ratio] 7.1 mg/mg Low [facility] CBC WITH AUTO DIFFERENTIALon 06-20-2020 Basophils (Bld) [#/Vol] 0.05 10*3/uL [facility] Basophils/100 WBC (Bld) 0.4 % [facility] Eosinophils (Bld) [#/Vol] 0.34 10*3/uL [facility] Eosinophils/100 WBC (Bld) 2.9 % [facility] Erythrocyte distribution width (RBC) [Entitic vol] 14.6 % 11.6 - 14.8 % [facility] Hematocrit (Bld) [Volume fraction] 47.3 % 41 - 53 % [facility] Hemoglobin (Bld) [Mass/Vol] 14.4 g/dL 13.5 - 17.5 g/dL [facility] Immature granulocytes (Bld) [#/Vol] 0.05 10*3/uL [facility] Immature granulocytes/100 WBC (Bld) 0.40 % [facility] Comment on above: The IG parameter is the percentage of metamyelocytes, myelocytes and promyelocytes. An immature granulocyte count (IG) of 1% or more suggests the possibility of infection, an IG count of 3% is very likely related to an infection. Interpretation and review of laboratory results Abnormal [facility] Lymphocytes (Bld) [#/Vol] 2.03 10*3/uL [facility] Lymphocytes/100 WBC (Bld) 17.2 % [facility] MCH (RBC) [Entitic mass] 28.1 pg 26 - 34 pg [facility] MCHC (RBC) [Mass/Vol] 30.4 g/dL Low 31 - 37 g/dL [facility] MCV (RBC) [Entitic vol] 92.2 fL 80 - 100 fL [facility] Monocytes (Bld) [#/Vol] 0.85 10*3/uL [facility] Monocytes/100 WBC (Bld) 7.2 % [facility] Neutrophils (Bld) [#/Vol] 8.45 10*3/uL [facility] Neutrophils/100 WBC (Bld) 71.9 % [facility] Nucleated RBC (Bld) [#/Vol] 0.00 10*3/uL [facility] Nucleated RBC/100 WBC (Bld) [Ratio] 0.0 % [facility] Platelet mean volume (Bld) [Entitic vol] 9.8 fL 9.4 - 12.4 fL [facility] Platelets (Bld) [#/Vol] 241 10*3/uL [facility] RBC (Bld) [#/Vol] 5.13 10*6/uL [facility] WBC (Bld) [#/Vol] 11.77 10*3/uL [facility] DRUGS OF ABUSE SCREEN, URINE on 06-20-2020 Amphetamines Ql (U) None Detected None Detected [facility] Comment on above: Urine Amphetamine Cu toff: < 1000 ng/mL = None Detected Barbiturates Screen Ql (U) None Detected None Detected [facility] Comment on above: Urine Barbiturates C utoff: < 200 ng/mL = None Detected Benzodiazepines Ql (U) None Detected None Detec terry [facility] Comment on above: Urine Benzodiazepine Cutoff: < 200 ng/mL = None Detected Buprenorphine Ql (U) None Detected None Detecte d [facility] Comment on above: Urine Buprenorphine Cutoff: < 5 ng/mL = None Detected Cannabinoids Screen Ql (U) None Detected None Detected [facility] Comment on above: Urine Cannabinoids C utoff: < 50 ng/mL = None Detected Cocaine Ql (U) None Detected None Detected [facility] Comment on above: Urine Cocaine Cutoff : < 300 ng/mL = None Detected Fentanyl+Norfentanyl Screen Ql (U) None Detected None Detected [facility] Comment on above: Urine Fentanyl Cutof f: < 1 ng/mL = None Detected Interpretation and review of laboratory results Normal [facility] Methadone Screen Ql (U) None Detected None Dete cted [facility] Comment on above: Urine Methadone Cuto ff: < 300 ng/mL = None Detected Opiates Screen Ql (U) None Detected None Detect ed [facility] Comment on above: Urine Opiates Cutoff : < 300 ng/mL = None Detected Oxycodone Ql (U) None Detected None Detected [facility] Comment on above: Urine Oxycodone Cuto ff: < 100 ng/mL = None Detected Screen results should be used for treatment purposes only. [facility] Hepatic Function Panelon Albumin [Mass/Vol] 4.2 g/dL 3.2 - 5.2 g/dL [facility] ALP [Catalytic activity/Vol] 140 U/L 40 - 150 U/L [facility] ALT [Catalytic activity/Vol] 10 U/L 0 - 40 U/L [facility] AST [Catalytic activity/Vol] 11 U/L 0 - 45 U/L [facility] Bilirubin [Mass/Vol] mg/dL 0 - 1.3 mg/dL [facility] Bilirubin.conjugated [Mass/Vol] mg/dL 0 - 0.4 mg/dL [facility] Interpretation and review of laboratory results Normal [facility] Protein [Mass/Vol] 6.8 g/dL 6 - 8 g/dL [facility] alth [place] Levelon 06-20-2020 [place] [Moles/Vol] 1.2 mmol/L 0.6 - 1. 2 mmol/L [facility] Otheron 06-20-2020 Extra Tube Hold for add-ons. [facility] Comment on above: Auto resulted. Interpretation and review of laboratory results Normal [facility] TSH with Reflex Free T4on Interpretation and review of laboratory results Normal [facility] TSH Qn 1.01 m[IU]/L [facility] BASIC METABOLIC PANELon 05-28 Anion gap [Moles/Vol] 4 mmol/L Low 8-16 [facility] Comment on above: Performed By: #### M ETA #### [facility] [address] [place], [place] [address] Calcium [Mass/Vol] 9.1 mg/dL Normal 8.5-10.5 [facility] Comment on above: Performed By: #### M ETA #### [facility] [address] [place], [place] [address] Chloride [Moles/Vol] 108 mmol/L High 99-107 [facility] Comment on above: Performed By: #### M ETA #### [facility] [address] [place], [place] [address] CO2 [Moles/Vol] 30 mmol/L Normal 21-31 [facility] Comment on above: Performed By: #### M ETA #### [facility] [address] [place] [address] Creatinine [Mass/Vol] 0.93 mg/dL Normal 0.60-1.30 [facility] Comment on above: Performed By: #### M ETA #### [facility] [address] [place] [address] EGFRAA 104 mL/min/1.73m2 Normal [facility] Comment on above: Result Comment: GFR Ranges: Stage GFR Level Description 1 90mL/min or more Normal 2 60-89 mL/min Mild Decrease 3 30-59 mL/min Moderate Decrease 4 15-29 mL/min Severe Decrease 5 <15 mL/min Kidney Failure Performed By: #### M ETA #### [facility] [address] [facility] [place] [address] GFR/1.73 sq M.predicted MDRD (S/P/Bld) [Vol rate/Area] 86 mL/min/{1.73_m2} Normal [facility] Comment on above: Result Comment: GFR RANGES STAGE GFR LEVEL DESCRIPTION 1 90 mL/min or more NORMAL 2 60-89 mL/min MILD DECREASE 3 30-59 mL/min MODERATE DECREASE 4 15-29 mL/min SEVERE DECREASE 5 < 15mL/min KIDNEY FAILURE Performed By: #### M ETA #### [facility] [address] [place], [place] [address] Glucose [Mass/Vol] 77 mg/dL Normal 70-105 [facility] Comment on above: Performed By: #### M ETA #### [facility] [address] [facility] [place], [place] [address] Potassium [Moles/Vol] 3.9 mmol/L Normal 3.5-5.3 [facility] Comment on above: Performed By: #### M ETA #### [facility] [address] [place], [place] [address] Sodium [Moles/Vol] 142 mmol/L Normal 135-145 [facility] Comment on above: Performed By: #### M ETA #### [facility] [address] [place] [address] Urea nitrogen [Mass/Vol] 7.0 mg/dL Normal 7.0-25.0 [facility] Comment on above: Performed By: #### M ETA #### [facility] [address] [place] [address] Urea nitrogen/Creatinine [Mass ratio] 8.0 Ratio Normal 6.0-22.0 [facility] Comment on above: Performed By: #### M ETA #### [facility] [address] [place] [address] CBC, AUTO DIFFon 06-07-2020 Basophils (Bld) [#/Vol] 0.0 x10 3/uL Normal 0.0-0.2 [facility] Comment on above: Performed By: #### C BC #### [facility] [address] [place], [place] [address] Basophils/100 WBC (Bld) 0.4 % Normal 0.0-2.0 [facility] Comment on above: Performed By: #### C BC #### [facility] [address] [place] [address] Eosinophils (Bld) [#/Vol] 0.3 x10 3/uL Normal 0.0-0.7 [facility] Comment on above: Performed By: #### C BC #### [facility] [address] [place], [place] [address] Eosinophils/100 WBC (Bld) 3.3 % Normal 0.0-7.0 [facility] Comment on above: Performed By: #### C BC #### [facility] [address] [place] [address] Erythrocyte distribution width (RBC) [Ratio] 14.7 % Normal 11.0-14.8 [facility] Comment on above: Performed By: #### C BC #### [facility] [address] [place] [address] Hematocrit (Bld) [Volume fraction] 40 % Normal 39-49 [facility] Comment on above: Performed By: #### C BC #### [facility] [place], [place] [address] Hemoglobin (Bld) [Mass/Vol] 12.8 g/dL Low 13.5-17.5 [facility] Comment on above: Performed By: #### C BC #### [facility] [address] [place] [address] Lymphocytes (Bld) [#/Vol] 2.1 x10 3/uL Normal 1.0-4.8 [facility] Comment on above: Performed By: #### C BC #### [facility] [address] [place] [address] Lymphocytes/100 WBC (Bld) 21.7 % Low 22.0-44.0 [facility] Comment on above: Performed By: #### C BC #### [facility] [address] [place] [address] MANUAL DIFFERENTIAL No Normal * [facility] Comment on above: Performed By: #### C BC #### [facility] [address] [place] [address] MCH (RBC) [Entitic mass] 28.2 pg Normal 27.0-34.0 [facility] Comment on above: Performed By: #### C BC #### [facility] [address] [place] [address] MCHC (RBC) [Mass/Vol] 32.4 g/dL Normal 32.0-36.6 [facility] Comment on above: Performed By: #### C BC #### [facility] [address] [place] [address] MCV (RBC) [Entitic vol] 87 fL Normal 76-90 [facility] Comment on above: Performed By: #### C BC #### [facility] [address] [place] [address] Monocytes (Bld) [#/Vol] 0.7 x10 3/uL Normal 0.0-0.9 [facility] Comment on above: Performed By: #### C BC #### [facility] [address] [place] [address] Monocytes/100 WBC (Bld) 7.5 % Normal 0.0-12.0 [facility] Comment on above: Performed By: #### C BC #### [facility] [address] [place] [address] Neutrophils (Bld) [#/Vol] 6.4 x10 3/uL Normal 1.8-7.7 [facility] Comment on above: Performed By: #### C BC #### [facility] [address] [facility] [place], [place] [address] Neutrophils/100 WBC (Bld) 67.1 % Normal 40.0-70.0 [facility] Comment on above: Performed By: #### C BC #### [facility] [address] [facility] [place], [place] [address] Platelets (Bld) [#/Vol] 212 x10 3/uL Normal 142-424 [facility] Comment on above: Performed By: #### C BC #### [facility] [address] [facility] [place], [place] [address] RBC (Bld) [#/Vol] 4.5 x10 6/uL Normal 3.9-5.2 [facility] [place] [facility] Comment on above: Performed By: #### C BC #### [facility] [address] [place], [place] [address] WBC (Bld) [#/Vol] 9.6 x10 3/uL Normal 4.6-10.2 [facility] [place] [facility] Comment on above: Performed By: #### C BC #### [facility] [address] [place], [place] [address] Acetaminophen Levelon 2019 Acetaminophen [Mass/Vol] <5.0 [facility] Alcohol, Medicalon 0 Ethanol [Mass/Vol] mg/dL <10.0 mg/dL [facility] Comment on above: Alcohol cutoff: <10. 00 mg/dL = None Detected CBC WITH AUTO DIFFERENTIALon 04-04-2020 Basophils (Bld) [#/Vol] 0.03 10*3/uL [facility] Basophils/100 WBC (Bld) 0.3 % [facility] Eosinophils (Bld) [#/Vol] 0.20 10*3/uL [facility] Eosinophils/100 WBC (Bld) 2.2 % [facility] Erythrocyte distribution width (RBC) [Entitic vol] 13.8 % 11.6 - 14.8 % [facility] Hematocrit (Bld) [Volume fraction] 43.9 % 41 - 53 % [facility] Hemoglobin (Bld) [Mass/Vol] 13.1 g/dL Low 13.5 - 17.5 g/dL [facility] Immature granulocytes (Bld) [#/Vol] 0.02 10*3/uL [facility] Immature granulocytes/100 WBC (Bld) 0.20 % [facility] Comment on above: The IG parameter is the percentage of metamyelocytes, myelocytes and promyelocytes. An immature granulocyte count (IG) of 1% or more suggests the possibility of infection, an IG count of 3% is very likely related to an infection. Interpretation and review of laboratory results Abnormal [facility] Lymphocytes (Bld) [#/Vol] 1.96 10*3/uL [facility] Lymphocytes/100 WBC (Bld) 21.7 % [facility] MCH (RBC) [Entitic mass] 28.4 pg 26 - 34 pg [facility] MCHC (RBC) [Mass/Vol] 29.8 g/dL Low 31 - 37 g/dL [facility] MCV (RBC) [Entitic vol] 95.2 fL 80 - 100 fL [facility] Monocytes (Bld) [#/Vol] 0.70 10*3/uL [facility] Monocytes/100 WBC (Bld) 7.7 % [facility] Neutrophils (Bld) [#/Vol] 6.14 10*3/uL [facility] Neutrophils/100 WBC (Bld) 67.9 % [facility] Nucleated RBC (Bld) [#/Vol] 0.00 10*3/uL [facility] Nucleated RBC/100 WBC (Bld) [Ratio] 0.0 % [facility] Platelet mean volume (Bld) [Entitic vol] 9.6 fL 9.4 - 12.4 fL [facility] Platelets (Bld) [#/Vol] 210 10*3/uL [facility] RBC (Bld) [#/Vol] 4.61 10*6/uL [facility] WBC (Bld) [#/Vol] 9.05 10*3/uL [facility] Comprehensive Metabolic Pane darlene 04-04-2020 Albumin [Mass/Vol] 3.6 g/dL 3.2 - 5.2 g/dL [facility] ALP [Catalytic activity/Vol] 135 U/L 40 - 150 U/L [facility] ALT [Catalytic activity/Vol] 9 U/L 0 - 40 U/L [facility] Anion gap [Moles/Vol] 12 mmol/L 10 - 2 0 mmol/L [facility] AST [Catalytic activity/Vol] 15 U/L 0 - 45 U/L [facility] Bilirubin [Mass/Vol] mg/dL 0 - 1.3 mg/dL [facility] Calcium [Mass/Vol] 9.2 mg/dL 8.4 - 10. 2 mg/dL [facility] Chloride [Moles/Vol] 106 mmol/L 98 - 10 8 mmol/L [facility] Creatinine [Mass/Vol] 0.70 mg/dL 0.50 - 1.30 [facility] GFR/1.73 sq M predicted among non-blacks MDRD (S/P/Bld) [Vol rate/Area] The eGFR should be used for monitoring renal function only and not for medication dosing. [facility] GFR/1.73 sq M.predicted CKD-EPI (S/P/Bld) [Vol rate/Area] 127 >=60 mL/min/1.73 m2 [facility] Glucose [Mass/Vol] 90 mg/dL 65 - 99 mg/dL [facility] HCO3 [Moles/Vol] 26 mmol/L 21 - 32 mmol/L [facility] Potassium [Moles/Vol] 4.0 mmol/L 3.5 - 5.1 mmol/L [facility] [facility] [Mass/Vol] 5.9 g/dL Low 6 - 8 g/dL [facility] alth Sodium [Moles/Vol] 140 mmol/L 135 - 145 mmol/L [facility] Urea nitrogen [Mass/Vol] 5 mg/dL Low 8 - 25 mg/dL [facility] Urea nitrogen/Creatinine [Mass ratio] 7.1 mg/mg Low [facility] DRUGS OF ABUSE SCREEN, URINE on 04-04-2020 Amphetamines Ql (U) None Detected None Detected [facility] Comment on above: Urine Amphetamine Cu toff: < 1000 ng/mL = None Detected Barbiturates Screen Ql (U) None Detected None Detected [facility] Comment on above: Urine Barbiturates C utoff: < 200 ng/mL = None Detected Benzodiazepines Ql (U) None Detected None Detec terry [facility] Comment on above: Urine Benzodiazepine Cutoff: < 200 ng/mL = None Detected Buprenorphine Ql (U) None Detected None Detecte d [facility] Comment on above: Urine Buprenorphine Cutoff: < 5 ng/mL = None Detected Cannabinoids Screen Ql (U) None Detected None Detected [facility] Comment on above: Urine Cannabinoids C utoff: < 50 ng/mL = None Detected Cocaine Ql (U) None Detected None Detected [facility] Comment on above: Urine Cocaine Cutoff : < 300 ng/mL = None Detected Fentanyl+Norfentanyl Screen Ql (U) None Detected None Detected [facility] Comment on above: Urine Fentanyl Cutof f: < 1 ng/mL = None Detected Interpretation and review of laboratory results Normal [facility] Methadone Screen Ql (U) None Detected None Dete cted [facility] Comment on above: Urine Methadone Cuto ff: < 300 ng/mL = None Detected Opiates Screen Ql (U) None Detected None Detect ed [facility] Comment on above: Urine Opiates Cutoff : < 300 ng/mL = None Detected Oxycodone Ql (U) None Detected None Detected [facility] Comment on above: Urine Oxycodone Cuto ff: < 100 ng/mL = None Detected Screen results should be used for treatment purposes only. [facility] Otheron 04-04-2020 Interpretation and review of laboratory results Normal [facility] Interpretation and review of laboratory results Abnormal [facility] Salicylate Levelon 0 Salicylates [Mass/Vol] mg/dL Low 10 - 20 mg/dL [facility] TSHon 04-04-2020 Interpretation and review of laboratory results Normal [facility] TSH Qn 1.06 m[IU]/L [facility] URINALYSISon 04-04-2020 Bacteria Auto Ql (U) None Seen None Se en /hpf [facility] Bilirubin Ql (U) Negative [facility] Refractometry automated (U) Clear Clear [facility] Color (U) Colorless Colorless, Yellow [facility] Glucose Auto test strip (U) [Mass/Vol] Negative Negative mg/dL [facility] Hemoglobin Auto test strip Ql (U) Negative Negative [facility] Interpretation and review of laboratory results Abnormal [facility] Ketones (U) [Mass/Vol] Negative Negat kyra mg/dL [facility] Leukocyte esterase Auto test strip Ql (U) Negative Negative [facility] Nitrite Auto test strip Ql (U) Negative Negative [facility] pH (U) 7.0 [pH] [facility] Protein (U) [Mass/Vol] Negative Negat kyra mg/dL [facility] RBC Auto (Urine sed) [#/Area] 2 [facility] Specific gravity (U) [Rel density] 1.003 Low [facility] Urobilinogen (U) [Mass/Vol] <2.0 <2.0 mg/dL [facility] WBC Auto (Urine sed) [#/Area] <1 [facility] Microscopic examination is performed on all urinalysis samples and only positive findings are reported. The test for blood on the chemical analytic portion of urinalysis may also be positive due to hemoglobinuria and myoglobinuria and if red blood cells are present they are quantified by microscopic examination. [facility] HEMOGLOBIN / HEMATOCRITon Hematocrit (Bld) [Volume fraction] 41 % Normal 39-49 [facility] Comment on above: Performed By: #### H H #### [facility] [address] [place] [address] Hemoglobin (Bld) [Mass/Vol] 13.3 g/dL Low 13.5-17.5 [facility] Comment on above: Performed By: #### H H #### [facility] [address] [place] [address] TEGRETOL (CARBAMAZEPINE)on 0 03-21-2020 TEGRETOL/CARBAMAZEPINE 7.5 ug/mL Normal 4.0-12.0 [facility] Comment on above: Performed By: #### T EG #### [facility] [address] [place] [address] VITAMIN D; 25 HYDROXY ([facility]) on 03-21-2020 VITAMIN D 25 HYDROXY 53 ng/mL Normal [facility] Comment on above: Result Comment: Defi cient <20 ng/mL Insufficient 20 to <30 ng/mL Sufficient 30 to 100 ng/mL Upper Safety Limit >100 ng/mL Deficient <20 ng/mL Insufficient 20 to <30 ng/mL Sufficient 30 to 100 ng/mL Upper Safety Limit >100 ng/mL Performed By: #### C BC #### [facility] [address] [place] [address] HEMOGLOBIN / HEMATOCRITon Hematocrit (Bld) [Volume fraction] 42 % Normal 39-49 [facility] Comment on above: Performed By: #### C BC #### [facility] [address] [place], [place] [address] Hemoglobin (Bld) [Mass/Vol] 13.8 g/dL Normal 13.5-17.5 [facility] Comment on above: Performed By: #### C BC #### [facility] [address] [place], [place] [address] BASIC METABOLIC PANELon Anion gap [Moles/Vol] 8 mmol/L Normal 8-16 [facility] Comment on above: Performed By: #### M ETA #### [facility] [address] [place] [address] Calcium [Mass/Vol] 9.3 mg/dL Normal 8.5-10.5 [facility] Comment on above: Performed By: #### M ETA #### [facility] [address] [place] [address] Chloride [Moles/Vol] 105 mmol/L Normal 99-107 [facility] Comment on above: Performed By: #### M ETA #### [facility] [address] [place] [address]. [place], [place] [address] CO2 [Moles/Vol] 26 mmol/L Normal 21-31 [facility] Comment on above: Performed By: #### M ETA #### [facility] [address] [place] [address] Creatinine [Mass/Vol] 0.92 mg/dL Normal 0.60-1.30 [facility] Comment on above: Performed By: #### M ETA #### [facility] [address] [place] [address] EGFRAA 106 mL/min/1.73m2 Normal [facility] Comment on above: Result Comment: GFR Ranges: Stage GFR Level Description 1 90mL/min or more Normal 2 60-89 mL/min Mild Decrease 3 30-59 mL/min Moderate Decrease 4 15-29 mL/min Severe Decrease 5 <15 mL/min Kidney Failure Performed By: #### M ETA #### [facility] [address] [facility]. [place], [place] [address] GFR/1.73 sq M.predicted MDRD (S/P/Bld) [Vol rate/Area] 87 mL/min/{1.73_m2} Normal [facility] Comment on above: Performed By: #### M ETA #### [facility] [address] [place], [place] [address] Glucose [Mass/Vol] 62 mg/dL Low 70-105 [facility] Comment on above: Performed By: #### M ETA #### [facility] [address] [facility]. [place], [place] [address] Potassium [Moles/Vol] 4.2 mmol/L Normal 3.5-5.3 [facility] Comment on above: Performed By: #### M ETA #### [facility] [address] [facility]. [place], [place] [address] Sodium [Moles/Vol] 139 mmol/L Normal 135-145 [facility] Comment on above: Performed By: #### M ETA #### [facility] [address] [facility]. [place], [place] [address] Urea nitrogen [Mass/Vol] 6.0 mg/dL Low 7.0-25.0 [facility] Comment on above: Performed By: #### M ETA #### [facility] [address] [facility]. [place], [place] [address] Urea nitrogen/Creatinine [Mass ratio] 7.0 Ratio Normal 6.0-22.0 [facility] Comment on above: Performed By: #### M ETA #### [facility] [address] [place] [address] CBC, AUTO DIFFon 02-29-2020 Basophils (Bld) [#/Vol] 0.1 x10 3/uL Normal 0.0-0.2 [facility] Comment on above: Performed By: #### C BC #### [facility] [address] [place] [address] Basophils/100 WBC (Bld) 0.5 % Normal 0.0-2.0 [facility] Comment on above: Performed By: #### C BC #### [facility] [address] [place] [address] Eosinophils (Bld) [#/Vol] 0.3 x10 3/uL Normal 0.0-0.7 [facility] Comment on above: Performed By: #### C BC #### [facility] [address] [place] [address] Eosinophils/100 WBC (Bld) 2.4 % Normal 0.0-7.0 [facility] Comment on above: Performed By: #### C BC #### [facility] [address] [place] [address] Erythrocyte distribution width (RBC) [Ratio] 14.1 % Normal 11.0-14.8 [facility] Comment on above: Performed By: #### C BC #### [facility] [address] [place] [address] Hematocrit (Bld) [Volume fraction] 44 % Normal 39-49 [facility] Comment on above: Performed By: #### C BC #### [facility] [address] [place], [place] [address] Hemoglobin (Bld) [Mass/Vol] 14.6 g/dL Normal 13.5-17.5 [facility] Comment on above: Performed By: #### C BC #### [facility] [address] [place], [place] [address] Lymphocytes (Bld) [#/Vol] 2.7 x10 3/uL Normal 1.0-4.8 [facility] Comment on above: Performed By: #### C BC #### [facility] [address] [place] [address] Lymphocytes/100 WBC (Bld) 25.8 % Normal 22.0-44.0 [facility] Comment on above: Performed By: #### C BC #### [facility] [address] [place] [address] MANUAL DIFFERENTIAL No Normal * [facility] Comment on above: Performed By: #### C BC #### [facility] [address] [place] [address] MCH (RBC) [Entitic mass] 29.6 pg Normal 27.0-34.0 [facility] Comment on above: Performed By: #### C BC #### [facility] [address] [place] [address] MCHC (RBC) [Mass/Vol] 32.8 g/dL Normal 32.0-36.6 [facility] Comment on above: Performed By: #### C BC #### [facility] [address] [place] [address] MCV (RBC) [Entitic vol] 90 fL Normal 76-90 [facility] Comment on above: Performed By: #### C BC #### [facility] [address] [facility]. [place], [place] [address] Monocytes (Bld) [#/Vol] 0.7 x10 3/uL Normal 0.0-0.9 [facility] Comment on above: Performed By: #### C BC #### [facility] [address] [place] [address]. [place], [place] [address] Monocytes/100 WBC (Bld) 6.5 % Normal 0.0-12.0 [facility] Comment on above: Performed By: #### C BC #### [facility] [address] [place] [address]. [place], [place] [address] Neutrophils (Bld) [#/Vol] 6.9 x10 3/uL Normal 1.8-7.7 [facility] Comment on above: Performed By: #### C BC #### [facility] [address] [facility]. [place], [place] [address] Neutrophils/100 WBC (Bld) 64.8 % Normal 40.0-70.0 [facility] Comment on above: Performed By: #### C BC #### [facility] [address] [place] [address]. [place], [place] [address] Platelets (Bld) [#/Vol] 225 x10 3/uL Normal 142-424 [facility] Comment on above: Performed By: #### C BC #### [facility] [address] [place] [address]. [place], [place] [address] RBC (Bld) [#/Vol] 4.9 x10 6/uL Normal 3.9-5.2 [facility] [place] [facility] Comment on above: Performed By: #### C BC #### [facility] [address] [place] [address]. [place], [place] [address] WBC (Bld) [#/Vol] 10.7 x10 3/uL High 4.6-10.2 [facility] Comment on above: Performed By: #### C BC #### [facility] [address] [place] [address] HEMOGLOBIN A1Con 02-29-2020 HbA1c (Bld) [Mass fraction] 5.8 % Normal 4.0-6.2 [facility] Comment on above: Result Comment: Expe cted Values: 3-6% for non diabetic 6-9% for controlled diabetic >9% for poorly controlled diabetic Performed By: #### C BC #### [facility] [address] [place] [address] HbA1c (Bld) [Mass fraction] 120 mg/dL Normal [facility] Comment on above: Performed By: #### C BC #### [facility] [address] [place] [address] LITHIUM, SERUMon 02-29-2020 [place] [Moles/Vol] 1.2 mmol/L Normal 0.6-1.2 [facility] [place] [facility] Comment on above: Performed By: #### L ITHIUM #### [facility] [address] [place] [address] LIVER PROFILEon 02-29-2020 Albumin [Mass/Vol] 4.0 g/dL Normal 3.3-5.7 [facility] Comment on above: Performed By: #### L IVER #### [facility] [address] [place] [address] Albumin/Globulin [Mass ratio] 2.0 {ratio} Normal 1.1-2.5 [facility] Comment on above: Performed By: #### L IVER #### [facility] [address] [place] [address] ALP [Catalytic activity/Vol] 145 U/L High 34-124 [facility] Comment on above: Performed By: #### L IVER #### [facility] [address] [place] [address] ALT [Catalytic activity/Vol] 10 U/L Normal 7-52 [facility] Comment on above: Performed By: #### L IVER #### [facility] [address] [place] [address] AST [Catalytic activity/Vol] 11 U/L Low 13-39 [facility] Comment on above: Performed By: #### L IVER #### [facility] [address] [place] [address] Bilirubin [Mass/Vol] 0.05 mg/dL Normal 0.03-0.18 [facility] Comment on above: Performed By: #### L IVER #### [facility] [address] [place] [address] Bilirubin Ql (U) 0.3 mg/dL Normal 0.3-1.0 [facility] Comment on above: Performed By: #### L IVER #### [facility] [address] [place] [address] Globulin (S) [Mass/Vol] 2.0 g/dL Normal 1.7-3.8 [facility] Comment on above: Performed By: #### L IVER #### [facility] [address] [place] [address] Protein [Mass/Vol] 5.9 g/dL Low 6.0-8.9 [facility] Comment on above: Performed By: #### L IVER #### [facility] [address] [place] [address] PSA-SCREENINGon 02-29-2020 PSA FOR SCREENING 0.635 ng/mL Normal 0.000-4.000 [facility] [place] [facility] Comment on above: Performed By: #### C BC #### [facility] [address] [place] [address] TSH - THIRD GENERATIONon TSH Qn 1.115 uIU/mL Normal 0.340-5.600 [facility] Comment on above: Performed By: #### C BC #### [facility] [address] [place] [address] VITAMIN B12on 02-29-2020 Cobalamin (Vitamin B12) [Mass/Vol] 197 pg/mL Normal 180-914 [facility] Comment on above: Performed By: #### C BC #### [facility] [address] [place] [address] VITAMIN D; 25 HYDROXY ([facility]) on 02-29-2020 VITAMIN D 25 HYDROXY 49 ng/mL Normal [facility] Comment on above: Result Comment: Defi cient <20 ng/mL Insufficient 20 to <30 ng/mL Sufficient 30 to 100 ng/mL Upper Safety Limit >100 ng/mL Performed By: #### C BC #### [facility] [address] [place] [address] LIPID PROFILEon 02-26-2020 Cholesterol [Mass/Vol] 90 mg/dL Normal 25-200 [facility] Comment on above: Performed By: #### L IPID #### [facility] [address] [place] [address] Cholesterol in HDL [Mass/Vol] 32 mg/dL Normal 23-92 [facility] Comment on above: Performed By: #### L IPID #### [facility] [address] [place] [address] Cholesterol in LDL [Mass/Vol] 33 mg/dL Low 66-178 [facility] Comment on above: Performed By: #### L IPID #### [facility] [address] [place], [place] [address] Cholesterol in VLDL [Mass/Vol] 25 mg/dL Normal 0-40 [facility] Comment on above: Performed By: #### L IPID #### [facility] [address] [place] [address] Triglyceride [Mass/Vol] 124 mg/dL Normal 48-352 [facility] Comment on above: Performed By: #### L IPID #### [facility] [address] [place] [address] VALPROIC ACID/DEPAKOTEon VALPROIC ACID/DEPAKOTE <10 Low 50-100 [facility] Comment on above: Result Comment: Resu lts reported at less than analytical measurment of instr ument. Performed By: #### V ALP #### [facility] [address] [place] [address] BASIC METABOLIC PANELon 11-26 Anion gap [Moles/Vol] 6 mmol/L Low 8-16 [facility] Comment on above: Performed By: #### M ETA #### [facility] [place], [place] [address] Calcium [Mass/Vol] 9.1 mg/dL Normal 8.5-10.5 [facility] Comment on above: Performed By: #### M ETA #### [facility] [address] [place], [place] [address] Chloride [Moles/Vol] 105 mmol/L Normal 99-107 [facility] Comment on above: Performed By: #### M ETA #### [facility] [address] [facility]. [place], [place] [address] CO2 [Moles/Vol] 30 mmol/L Normal 21-31 [facility] Comment on above: Performed By: #### M ETA #### [facility] [address] [facility]. [place], [place] [address] Creatinine [Mass/Vol] 0.88 mg/dL Normal 0.60-1.30 [facility] Comment on above: Performed By: #### M ETA #### [facility] [address] [facility]. [place], [place] [address] EGFRAA 112 mL/min/1.73m2 Normal [facility] Comment on above: Result Comment: GFR Ranges: Stage GFR Level Description 1 90mL/min or more Normal 2 60-89 mL/min Mild Decrease 3 30-59 mL/min Moderate Decrease 4 15-29 mL/min Severe Decrease 5 <15 mL/min Kidney Failure Performed By: #### M ETA #### [facility] [address] [place], [place] [address] GFR/1.73 sq M.predicted MDRD (S/P/Bld) [Vol rate/Area] 92 mL/min/{1.73_m2} Normal [facility] Comment on above: Performed By: #### M ETA #### [facility] [address] [facility]. [place], [place] [address] Glucose [Mass/Vol] 59 mg/dL Low 70-105 [facility] Comment on above: Performed By: #### M ETA #### [facility] [address] [place] [address] Potassium [Moles/Vol] 4.1 mmol/L Normal 3.5-5.3 [facility] Comment on above: Performed By: #### M ETA #### [facility] [address] [place], [place] [address] Sodium [Moles/Vol] 141 mmol/L Normal 135-145 [facility] Comment on above: Performed By: #### M ETA #### [facility] [address] [place] [address] Urea nitrogen [Mass/Vol] 6.0 mg/dL Low 7.0-25.0 [facility] Comment on above: Performed By: #### M ETA #### [facility] [address] [place], [place] [address] Urea nitrogen/Creatinine [Mass ratio] 7.0 Ratio Normal 6.0-22.0 [facility] Comment on above: Performed By: #### M ETA #### [facility] [address] [place] [address] CBC, AUTO DIFFon 12-11-2019 Basophils (Bld) [#/Vol] 0.0 x10 3/uL Normal 0.0-0.2 [facility] Comment on above: Performed By: #### C BC #### [facility] [address] [place] [address] Basophils/100 WBC (Bld) 0.3 % Normal 0.0-2.0 [facility] Comment on above: Performed By: #### C BC #### [facility] [address] [place] [address] Eosinophils (Bld) [#/Vol] 0.4 x10 3/uL Normal 0.0-0.7 [facility] Comment on above: Performed By: #### C BC #### [facility] [address] [place] [address] Eosinophils/100 WBC (Bld) 3.4 % Normal 0.0-7.0 [facility] Comment on above: Performed By: #### C BC #### [facility] [address] [place], [place] [address] Erythrocyte distribution width (RBC) [Ratio] 14.0 % Normal 11.0-14.8 [facility] Comment on above: Performed By: #### C BC #### [facility] [address] [place] [address] Hematocrit (Bld) [Volume fraction] 43 % Normal 39-49 [facility] Comment on above: Performed By: #### C BC #### [facility] [address] [place] [address] Hemoglobin (Bld) [Mass/Vol] 14.3 g/dL Normal 13.5-17.5 [facility] Comment on above: Performed By: #### C BC #### [facility] [address] [place] [address] Lymphocytes (Bld) [#/Vol] 2.2 x10 3/uL Normal 1.0-4.8 [facility] Comment on above: Performed By: #### C BC #### [facility] [address] [place] [address] Lymphocytes/100 WBC (Bld) 20.6 % Low 22.0-44.0 [facility] Comment on above: Performed By: #### C BC #### [facility] [address] [place] [address] MCH (RBC) [Entitic mass] 29.8 pg Normal 27.0-34.0 [facility] Comment on above: Performed By: #### C BC #### [facility] [address] [place] [address]. [place], [place] [address] MCHC (RBC) [Mass/Vol] 33.3 g/dL Normal 32.0-36.6 [facility] Comment on above: Performed By: #### C BC #### [facility] [address] [place] [address] MCV (RBC) [Entitic vol] 90 fL Normal 76-90 [facility] Comment on above: Performed By: #### C BC #### [facility] [address] [place] [address] Monocytes (Bld) [#/Vol] 0.9 x10 3/uL Normal 0.0-0.9 [facility] Comment on above: Performed By: #### C BC #### [facility] [address] [place] [address] Monocytes/100 WBC (Bld) 8.3 % Normal 0.0-12.0 [facility] Comment on above: Performed By: #### C BC #### [facility] [address] [place] [address] Neutrophils (Bld) [#/Vol] 7.2 x10 3/uL Normal 1.8-7.7 [facility] Comment on above: Performed By: #### C BC #### [facility] [address] [place] [address] Neutrophils/100 WBC (Bld) 67.4 % Normal 40.0-70.0 [facility] Comment on above: Performed By: #### C BC #### [facility] [address] [place] [address] Platelets (Bld) [#/Vol] 190 x10 3/uL Normal 142-424 [facility] Comment on above: Performed By: #### C BC #### [facility] [address] [place] [address], [place] [address] RBC (Bld) [#/Vol] 4.8 x10 6/uL Normal 3.9-5.2 [facility] [place] [facility] Comment on above: Performed By: #### C BC #### [facility] [address] [facility]. [place], [place] [address] WBC (Bld) [#/Vol] 10.6 x10 3/uL High 4.6-10.2 [facility] Comment on above: Performed By: #### C BC #### [facility] [address] [facility]. [place], [place] [address] BMPon 07-03-2018 Anion gap 3 molar conc 14 mmol/L Invalid Interpretation Code 10 - 20 mmol/L [facility] Calcium mass conc 10.1 mg/dL Invalid Interpretation Code 8.4 - 10.2 mg/dL [facility] Chloride molar conc 99 mmol/L Invalid Interpretation Code 98 - 108 mmol/L [facility] Creatinine mass conc 0.73 mg/dL Invalid Interpretation Code 0.5 - 1.3 mg/dL [facility] GFR/1.73 sq M predicted among non-blacks MDRD vol rate/area (S/P/Bld) The eGFR should be used for monitoring renal function only and not for medication dosing. Invalid Interpretation Code [facility] GFR/1.73 sq M.predicted CKD-EPI vol rate/area (S/P/Bld) 127 Invalid Interpretation Code >=60 mL/min/1.73 m2 [facility] Glucose mass conc 100 mg/dL High 65 - 99 mg/dL [facility] HCO3 molar conc 31 mmol/L Invalid Interpretation Code 21 - 32 mmol/L [facility] Interpretation and review of laboratory results Abnormal Invalid Interpretation Code [facility] Potassium molar conc 4.7 mmol/L Invalid Interpretation Code 3.5 - 5.1 mmol/L [facility] Sodium molar conc 139 mmol/L Invalid Interpretation Code 135 - 145 mmol/L [facility] Urea nitrogen mass conc 8 mg/dL Invalid Interpretation Code 8 - 25 mg/dL [facility] Urea nitrogen/Creatinine mass ratio 11.0 mg/mg Invalid Interpretation Code [facility] CBC WITH AUTO DIFFERENTIALon 07-03-2018 Basophils Auto #/vol (Bld) 0.03 10*3/uL Invalid Interpretation Code [facility] Basophils/100 WBC Auto (Bld) 0.3 % Invalid Interpretation Code [facility] Eosinophils Auto #/vol (Bld) 0.26 10*3/uL Invalid Interpretation Code [facility] Eosinophils/100 WBC Auto (Bld) 2.5 % Invalid Interpretation Code [facility] Erythrocyte distribution width Auto Entitic volume (RBC) 13.5 % Invalid Interpretation Code 11.6 - 14.8 % [facility] Hematocrit Auto Volume Fraction (Bld) 47.9 % Invalid Interpretation Code 41 - 53 % [facility] Hemoglobin mass conc (Bld) 15.1 g/dL Invalid Interpretation Code 13.5 - 17.5 g/dL [facility] Immature granulocytes #/vol (Bld) 0.02 10*3/uL Invalid Interpretation Code [facility] Immature granulocytes/100 WBC (Bld) 0.20 % Invalid Interpretation Code [facility] Comment on above: The IG parameter is the percentage of metamyelocytes, myelocytes, and promyelocytes. Interpretation and review of laboratory results Abnormal Invalid Interpretation Code [facility] Lymphocytes Auto #/vol (Bld) 1.70 10*3/uL Invalid Interpretation Code [facility] Lymphocytes/100 WBC Auto (Bld) 16.2 % Invalid Interpretation Code [facility] MCH Auto Entitic mass (RBC) 29.5 pg Invalid Interpretation Code 26 - 34 pg [facility] MCHC Auto mass conc (RBC) 31.5 g/dL Invalid Interpretation Code 31 - 37 g/dL [facility] MCV Auto Entitic volume (RBC) 93.6 fL Invalid Interpretation Code 80 - 100 fL [facility] Monocytes Auto #/vol (Bld) 0.63 10*3/uL Invalid Interpretation Code [facility] Monocytes/100 WBC Auto (Bld) 6.0 % Invalid Interpretation Code [facility] Neutrophils Auto #/vol (Bld) 7.86 10*3/uL High [facility] Neutrophils/100 WBC Auto (Bld) 74.8 % Invalid Interpretation Code [facility] Nucleated RBC #/vol (Bld) 0.00 10*3/uL Invalid Interpretation Code [facility] Nucleated RBC/100 WBC Ratio (Bld) 0.0 % Invalid Interpretation Code [facility] Platelet mean volume Auto Entitic volume (Bld) 10.1 fL Invalid Interpretation Code 9 - 15.5 fL [facility] Platelets Auto #/vol (Bld) 233 10*3/uL Invalid Interpretation Code [facility] RBC Auto #/vol (Bld) 5.12 10*6/uL Invalid Interpretation Code [facility] WBC Auto #/vol (Bld) 10.50 10*3/uL Invalid Interpretation Code [facility] CT ABDOMEN PELVIS WITHOUT CO [...] WedJul 03, 2018 10:55:16 PM EST Normal [facility] Comment on above: Order Comment: Reaso n for exam?:Pt arrives to ED via EMS from [place] with c/o left abdominal/flank pain x 1 [...] is identified at the abdomen or pelvis. [employer] Workstation ID: [id number] Invalid Interpretation Code [facility] EXAMINATION: CT ABDOMEN PELVIS WITHOUT CONTRAST [...] lung bases are clear. Invalid Interpretation Code [employer] [facility] There is a large calculus within the [...] is identified at the abdomen or pelvis. [employer] Workstation ID: [id number] Invalid Interpretation Code [employer] [facility] Lactic Acid, Plasmaon 2018 Interpretation and review of laboratory results Abnormal Invalid Interpretation Code [facility] Lactate molar conc 2.4 mmol/L High 0.6 - 2 mmol/L [facility] Otheron 07-03-2018 Extra Tube Hold for add-ons. Invalid Interpretation Code [facility] Comment on above: Auto resulted. [...] RBC Auto #/area (Urine sed) >180 High [facility] Specific gravity Automated test strip Relative Density (U) 1.013 Invalid Interpretation Code [facility] Urobilinogen Test strip Qn (U) <2.0 Invalid Interpretation Code <2.0 mg/dL [facility] WBC Auto #/area (Urine sed) 9 High [facility] Microscopic examination is performed on all urinalysis samples and only positive findings are reported. The test for blood on the chemical analytic portion of urinalysis may also be positive due to hemoglobinuria and myoglobinuria and if red blood cells are present they are quantified by microscopic examination. Invalid Interpretation Code [facility] XR CHEST AP/PA AND LATon XR [...] WedJul 03, 2018 5:47:12 PM EST Normal [facility] Comment on above: Order Comment: Reaso n for exam?:Pt arrives to ED via EMS from [place] with c/o left abdominal/flank pain x 1 month. Pt has hx of diabetes and stroke with right sided paralysis. EMS reports glucose 101. Pt denies N/V/D/C.Injury/Trauma or Illness?:Illness/OtherHow long have you had these symptoms (acute/chronic)?:AcuteHistory of cancer?:nSurgeries, chemotherapy, or radiation?:nType of Exam?:InitialAdditional signs and symptoms?:n 1. Negative chest. [employer]n Workstation ID: [id number] Invalid Interpretation Code [employer] [facility], Rad In Kay [employer] - 07/03/2018 [...] left acromion process. IMPRESSION: 1. Negative chest. [employer] Workstation ID: [id number] Invalid Interpretation Code [facility] EXAMINATION: Chest, two views, 07/03/2018 at 4:55 [...] the left acromion process. Invalid Interpretation Code [facility] Vital Signs Date Time Vital Sign Value Performing Clinician Facility 04-17-2025 15:30-0400 Heart rate 99 /min Dr. Mame Bright MD Work Phone: [facility] 04-17-2025 15:30-0400 Respiratory rate 22 /min Dr. Mame Bright MD Work Phone: [facility] 04-17-2025 15:30-0400 SaO2% (BldA) [Mass fraction] 92 % Dr. Mame Bright MD Work Phone: [facility] 04-17-2025 13:39-0400 Body temperature 97.5 [degF] Dr. Mame Bright MD Work Phone: [facility] 04-17-2025 13:39-0400 Diastolic blood pressure 89 mm[Hg] Dr. Mame Bright MD Work Phone: [facility] 04-17-2025 13:39-0400 Systolic blood pressure 118 mm[Hg] Dr. Mame Bright MD Work Phone: [facility] 04-17-2025 09:41-0400 Inhaled oxygen flow rate 3 L/min Dr. Mame Bright MD Work Phone: [facility] 04-17-2025 09:23-0400 Body height 170.[address] Mame Bright MD Work Phone: [facility] 04-17-2025 09:23-0400 Body mass index (BMI) [Ratio] 36.5 kg/m2 Dr. Mame Bright MD Work Phone: [facility] 04-17-2025 09:23-0400 Body weight 105.[address] Mame Bright MD Work Phone: [facility] 02-03-2025 15:00-0400 Body temperature 98.1 [degF] Dr. Mame Bright MD Work Phone: [facility] 02-03-2025 15:00-0400 Diastolic blood pressure 76 mm[Hg] Dr. Mame Bright MD Work Phone: [facility] 02-03-2025 15:00-0400 Heart rate 62 /min Dr. Mame Bright MD Work Phone: [facility] 02-03-2025 15:00-0400 Inhaled oxygen flow rate 3 L/min Dr. Mame Bright MD Work Phone: [facility] 02-03-2025 15:00-0400 Respiratory rate 18 /min Dr. Mame Bright MD Work Phone: [facility] 02-03-2025 15:00-0400 SaO2% (BldA) [Mass fraction] 98 % Dr. Mame Bright MD Work Phone: [facility] 02-03-2025 15:00-0400 Systolic blood pressure 118 mm[Hg] Dr. Mame Bright MD Work Phone: [facility] 02-03-2025 03:06-0400 Body mass index (BMI) [Ratio] 36.3 kg/m2 Dr. Mame Bright MD Work Phone: [facility] 02-03-2025 03:06-0400 Body weight 105.[address] Mame Bright MD Work Phone: [facility] 02-02-2025 11:00-0400 Inhaled oxygen concentration 40 % Dr. Mame Bright MD Work Phone: [facility] 02-01-2025 11:16-0400 Body height 170.[address] Mame Bright MD Work Phone: [facility] 01-31-2025 23:00-0400 Diastolic blood pressure 74 mm[Hg] Dr. Mame Bright MD Work Phone: [facility] 01-31-2025 23:00-0400 Heart rate 84 /min Dr. Mame Bright MD Work Phone: [facility] 01-31-2025 23:00-0400 Inhaled oxygen concentration 60 % Dr. Mame Bright MD Work Phone: [facility] 01-31-2025 23:00-0400 Inhaled oxygen flow rate 45 L/min Dr. Mame Bright MD Work Phone: [facility] 01-31-2025 23:00-0400 Respiratory rate 25 /min Dr. Mame Bright MD Work Phone: [facility] 01-31-2025 23:00-0400 SaO2% (BldA) [Mass fraction] 97 % Dr. Mame Bright MD Work Phone: [facility] 01-31-2025 23:00-0400 Systolic blood pressure 116 mm[Hg] Dr. Mame Bright MD Work Phone: [facility] 01-31-2025 22:53-0400 Body temperature 98.8 [degF] Dr. Mame Bright MD Work Phone: [facility] 01-31-2025 20:19-0400 Body height 172.[address] Mame Bright MD Work Phone: [facility] 01-31-2025 20:19-0400 Body mass index (BMI) [Ratio] 34.9 kg/m2 Dr. Mame Bright MD Work Phone: [facility] 01-31-2025 20:19-0400 Body weight 104.[address] Mame Bright MD Work Phone: [facility] 12-06-2024 13:33-0400 Body temperature 97.9 [degF] Dr. Mame Bright MD Work Phone: [facility] 12-06-2024 13:33-0400 Diastolic blood pressure 82 mm[Hg] Dr. Mame Bright MD Work Phone: [facility] 12-06-2024 13:33-0400 Heart rate 76 /min Dr. Mame Bright MD Work Phone: [facility] 12-06-2024 13:33-0400 Respiratory rate 16 /min Dr. Mame Bright MD Work Phone: [facility] 12-06-2024 13:33-0400 SaO2% (BldA) [Mass fraction] 95 % Dr. Mame Bright MD Work Phone: [facility] 12-06-2024 13:33-0400 Systolic blood pressure 114 mm[Hg] Dr. Mame Bright MD Work Phone: [facility] 12-05-2024 23:25-0400 Body mass index (BMI) [Ratio] 34.4 kg/m2 Dr. Mame Bright MD Work Phone: [facility] 12-05-2024 23:25-0400 Body weight 103.[address] Mame Bright MD Work Phone: [facility] 12-05-2024 07:00-0400 Inhaled oxygen flow rate 2 L/min Dr. Mame Bright MD Work Phone: [facility] 12-04-2024 14:39-0400 Body height [address] Mame Bright MD Work Phone: [facility] 12-04-2024 14:14-0400 Body temperature 100.2 [degF] Dr. Mame Bright MD Work Phone: [facility] 12-04-2024 14:14-0400 Diastolic blood pressure 70 mm[Hg] Dr. Mame Bright MD Work Phone: 1(995)[phone] [place] [address] 12-04-2024 14:14-0400 Heart rate 76 /min Dr. Mame Bright MD Work Phone: 9(585)[phone] [place] [address] 12-04-2024 14:14-0400 Respiratory rate 16 /min Dr. Mame Bright MD Work Phone: 3([phone])[phone] [place] [address] 12-04-2024 14:14-0400 SaO2% (BldA) [Mass fraction] 93 % Dr. Mame Bright MD Work Phone: [facility] 12-04-2024 14:14-0400 Systolic blood pressure 109 mm[Hg] Dr. Mame Bright MD Work Phone: [facility] 12-04-2024 12:00-0400 Inhaled oxygen flow rate 10 L/min Dr. Mame Bright MD Work Phone: [facility] 12-04-2024 10:26-0400 Body height 172.[address] Mame Bright MD Work Phone: [facility] 12-04-2024 10:26-0400 Body mass index (BMI) [Ratio] 35.3 kg/m2 Dr. Mame Bright MD Work Phone: [facility] 12-04-2024 10:26-0400 Body weight 105.[address] Mame Bright MD Work Phone: [facility] 07-07-2022 17:00-0500 Body temperature 97.9 [degF] Alaina Baez MD Work Phone: [employer] 07-07-2022 17:00-0500 Diastolic blood pressure 75 mm[Hg] Alaina Baez MD Work Phone: [employer] 07-07-2022 17:00-0500 Heart rate 80 /min Alaina Baez MD Work Phone: [employer] 07-07-2022 17:00-0500 Respiratory rate 14 /min Alaina Baez MD Work Phone: [employer] 07-07-2022 17:00-0500 SaO2% (BldA) [Mass fraction] 96 % Alaina Baez MD Work Phone: [employer] 07-07-2022 17:00-0500 Systolic blood pressure 110 mm[Hg] Alaina Baez MD Work Phone: [employer] 06-30-2022 13:00-0500 Body height 175.3 cm Alaina Baez MD Work Phone: [employer] 06-30-2022 13:00-0500 Body mass index (BMI) [Ratio] 29.51 kg/m2 Alaina Baez MD Work Phone: [employer] 06-30-2022 13:00-0500 Body weight 90.7 kg Alaina Baez MD Work Phone: [employer] 05-18-2022 10:12-0500 Body temperature 100.2 [degF] Ronan Siegel DO Work Phone: [employer] [facility] 05-18-2022 10:12-0500 Diastolic blood pressure 56 mm[Hg] Ronan Siegel DO Work Phone: [facility] 05-18-2022 10:12-0500 Heart rate 68 /min Ronan Siegel DO Work Phone: [facility] 05-18-2022 10:12-0500 Respiratory rate 18 /min Ronan Siegel DO Work Phone: [facility] 05-18-2022 10:12-0500 SaO2% (BldA) [Mass fraction] 96 % Ronan Skinnerette DO Work Phone: [facility] 05-18-2022 10:12-0500 Systolic blood pressure 115 mm[Hg] Ronan Couette DO Work Phone: [facility] 05-14-2022 18:38-0500 Body height 172.7 cm Ronan Couette DO Work Phone: [facility] 05-14-2022 18:38-0500 Body mass index (BMI) [Ratio] 34.97 kg/m2 Ronan Couette DO Work Phone: [facility] 05-14-2022 18:38-0500 Body weight 104.33 kg Ronan Skinnerette DO Work Phone: [facility] 12-12-2020 12:49-0400 Diastolic blood pressure 68 mm[Hg] Joon Atkinson MD Work Phone: [facility] 12-12-2020 12:49-0400 Heart rate 72 /min Joon Atkinson MD Work Phone: [facility] 12-12-2020 12:49-0400 Respiratory rate 12 /min Joon Atkinson MD Work Phone: [facility] 12-12-2020 12:49-0400 SaO2% (BldA) [Mass fraction] 95 % Joon Atkinson MD Work Phone: [facility] 12-12-2020 12:49-0400 Systolic blood pressure 108 mm[Hg] Joon Atkinson MD Work Phone: [facility] 12-12-2020 01:30-0400 Body height 172.7 cm Joon Atkinson MD Work Phone: [facility] 12-12-2020 01:30-0400 Body mass index (BMI) [Ratio] 38.01 kg/m2 Joon Atkinson MD Work Phone: [facility] 12-12-2020 01:30-0400 Body temperature 97.59 [degF] Joon Atkinson MD Work Phone: [facility] 12-12-2020 01:30-0400 Body weight 113.4 kg Joon Atkinson MD Work Phone: [facility] 06-20-2020 20:39-0500 BP Diastolic 81 mm[Hg] Mike Rodriguez [facility] 06-20-2020 20:39-0500 BP Systolic 155 mm[Hg] Mike Rodriguez [facility] 06-20-2020 20:39-0500 Pulse (Heart Rate) 88 /min Mike Rodriguez [facility] 06-20-2020 20:39-0500 Pulse Oximetry 95 % Mike Rodriguez [facility] 06-20-2020 16:28-0500 BMI (Body Mass Index) 37.25 kg/m2 Mike Rodriguez [facility] 06-20-2020 16:28-0500 Body weight 111.13 kg Mikeming Rodriguez [facility] 06-20-2020 15:49-0500 Body Temperature 98.2 [degF] Mike Rodriguez [facility] 06-20-2020 15:49-0500 Height 172.7 cm Mikeming Rodriguez [facility] 06-20-2020 15:49-0500 Respiratory Rate 18 /min Mike Rodriguez [facility] 04-04-2020 16:56-0400 BP Diastolic 72 mm[Hg] [facility] 04-04-2020 16:56-0400 BP Systolic 120 mm[Hg] [facility] 04-04-2020 16:56-0400 Pulse (Heart Rate) 67 /min [facility] 04-04-2020 16:56-0400 Pulse Oximetry 98 % [facility] 04-04-2020 16:56-0400 Respiratory Rate 16 /min [facility] 07-03-2018 22:38-0500 Pulse (Heart Rate) 80 /min Benny [facility] 07-03-2018 22:38-0500 Pulse Oximetry 98 % Benny [facility] 07-03-2018 22:38-0500 Respiratory Rate 18 /min Benny [facility] 07-03-2018 18:45-0500 BP Diastolic 85 mm[Hg] [facility] 07-03-2018 18:45-0500 BP Systolic 120 mm[Hg] [facility] 07-03-2018 16:02-0500 BMI (Body Mass Index) 31.32 kg/m2 [facility] 07-03-2018 16:02-0500 Body Temperature 98.29 [degF] [facility] 07-03-2018 16:02-0500 Height 172.7 cm [facility] 07-03-2018 16:02-0500 Weight 93.44 kg [facility] Encounters Encounter Date Encounter Type Care Provider Facility Start: 04-17-2025 End: 04-17-2025 Emergency department patient visit [facility] Facility:[facility] Start: 02-03-2025 Non-patient / Non-visit Dr. Fredo auguste MD -[facility] Work Phone: Start: 02-02-2025 Non-patient / Non-visit Dr. Fredo auguste MD [facility] Work Phone: Start: 02-01-2025 Non-patient / Non-visit Dr. Fredo auguste MD [facility] Work Phone: Start: 02-01-2025 Non-patient / Non-visit [facility] Work Phone: Start: 02-01-2025 ambulatory Rosalva Fowler Facility :[facility] Start: 01-31-2025 End: 02-03-2025 Evaluation and management of inpatient Dr. Rosalva Fowler MD -[facility] Work Phone: Start: 01-31-2025 ambulatory [facility] Start: 01-31-2025 Non-patient / Non-visit Dr. Rosalva Fowler MD -[facility] Work Phone: Start: 12-06-2024 Non-patient / Non-visit Dr. Michelle Angeles MD [facility] Work Phone: Start: 12-05-2024 Non-patient / Non-visit Dr. Michelle Angeles MD [facility] Work Phone: Start: 12-05-2024 Non-patient / Non-visit Dr. Ean mora DO -[facility] Start: 12-04-2024 ambulatory Michelle Angeles Facility :[facility] Start: 12-04-2024 End: 12-06-2024 Evaluation and management of inpatient Dr. Michelle Angeles MD -Intensive Care Unit Work Phone: Start: 07-31-2024 ambulatory Michelle Angeles Facility [facility] Start: 07-31-2024 End: 08-01-2024 Evaluation and management of inpatient Michelle Angeles Facility:[facility] Start: 06-09-2022 End: 07-08-2022 Evaluation and management of inpatient LUZ CORRALES [facility] Start: 06-08-2022 End: 07-08-2022 Evaluation and management of inpatient Alaina Baez MD Work Phone: [facility] Comment on above: Schizoaffective diso rder, bipolar type (CMS/HCC) (Primary Dx) Start: 06-08-2022 End: 06-08-2022 Emergency department patient visit LUZ CORRALES [facility] Start: 05-14-2022 Encounter for other general examination VIJAY KRISHNAMURTHY [facility] Start: 05-14-2022 End: 05-18-2022 Evaluation and management of inpatient UNLISTED PROVIDER [facility] Start: 05-14-2022 End: 05-18-2022 Admission to establishment Ronan Siegel DO Work Phone: [facility] Start: 05-14-2022 End: 05-18-2022 Evaluation and management of inpatient Ronan S Robbin DO Work Phone: [facility] Comment on above: Medical clearance fo r psychiatric admission (Primary Dx); Agitation Start: 05-04-2022 End: 05-05-2022 Emergency department patient visit PHYSICIAN SEPULVEDA [facility] Start: 02-16-2022 End: 02-27-2022 Evaluation and management of inpatient JOSE DOMINGUEZ [facility] Start: 02-11-2022 ambulatory LUZ CORRALES [facility] Start: 12-12-2020 End: 12-12-2020 Emergency department patient visit Joon Atkinson MD Work Phone: [facility] Start: 09-04-2020 End: 09-04-2020 Orders Only Jennifer Corea Work Phone: [facility] Start: 07-18-2020 Patient encounter procedure [facility] Start: 06-20-2020 End: 06-20-2020 Emergency department patient visit Mike Rodriguez Work Phone: [facility] Comment on above: Agitation (Primary D x) Start: 06-07-2020 Patient encounter procedure [facility] Start: 04-04-2020 End: 04-04-2020 Emergency department patient visit Joon Atkinson Work Phone: [facility] Comment on above: Homicidal ideation ( Primary Dx); Bipolar 1 disorder (HCC) Start: 02-29-2020 Patient encounter procedure [facility] Start: 02-26-2020 Patient encounter procedure [facility] Start: 01-10-2020 Patient encounter procedure [facility] Start: 12-11-2019 Patient encounter procedure [facility] Start: 07-03-2018 End: 07-04-2018 Emergency department patient visit [facility] Start: 07-03-2018 End: 07-03-2018 Emergency department patient visit Benny Mike [facility] Work Phone: [facility] Comment on above: Kidney stone on left side (Primary Dx) Start: 05-31-2017 End: 05-31-2017 Ambulatory [facility] Procedures Date Procedure Procedure [...] Legionella pneumophi la antigen assay Dr. Mame Bright MD Work Phone: Start: 01-31-[address] Mame Bright MD Work Phone: Start: 01-31-2025 End: 01-31-2025 Streptococcus pneumoniae antigen assay Dr[address] Mame Bright MD Work Phone: Start: 01-31-2025 Plain [...] Drug screen quantita tive lithium [employer] DO Work Phone: Start: 06-16-2022 EXTRA TUBES [...] Start: 06-09-2022 Sars-cov-2 detection by dna/rna Palma Proctorville DO Work Phone: Start: 06-09-2022 Basic metabolic pane l calcium total Palma Proctorville DO Work Phone: Start: 06-09-2022 CBC W Auto Different ial panel - [facility] Work Phone: Start: 06-09-2022 Drug screen quantita tive lithium [facility] DO Work Phone: Start: 06-09-2022 Ethanol [Mass/volume ] in Serum or Plasma Palma Proctorville DO Work Phone: Start: 06-09-2022 EXTRA TUBES [...] TOP Mike Rodriguez Work Phone: Start: 06-20-2020 [place] [Moles/volum e] in Serum or Plasma Pamela [...] Start: 05-14-2027 Fasting lipid profile LIPID SCREENING [facility] Start: 05-14-2027 Lipid panel Cholesterol Screening (Lipid Panel) [facility] Start: 04-17-2025 [facility] Start: 02-03-2025 Patient discharge [facility] Start: 02-03-2025 [facility] Start: 02-02-2025 Care planning and problem solving actions [facility] Start: 02-02-2025 Electrocardiographic procedure [facility] Start: 02-02-2025 [facility] Start: 02-01-2025 Vital signs measurements [facility] Start: 02-01-2025 Vital signs measurements [facility] Start: 02-01-2025 Vital signs measurements [facility] Start: 02-01-2025 Vital signs measurements [facility] Start: 02-01-2025 Vital signs measurements [facility] Start: 02-01-2025 Vital signs measurements [facility] Start: 02-01-2025 Elevation of affected extremity [facility] Start: 02-01-2025 Notification of physician [facility] Start: 02-01-2025 Patient education [facility] Start: 02-01-2025 Vital signs measurements [facility] Start: 02-01-2025 Vital signs measurements [facility] Start: 02-01-2025 Vital signs measurements [facility] Start: 02-01-2025 Respiratory secretion precautions [facility] Start: 02-01-2025 Vital signs measurements [facility] Start: 02-01-2025 Following clinical pathway protocol [facility] Start: 02-01-2025 Aspiration precautions [facility] Start: 02-01-2025 Assessment of risk of venous thromboembolism [facility] Start: 02-01-2025 Care regimes management [place] Start: 02-01-2025 Elevation of head of bed [facility] Start: 02-01-2025 Fall prevention [facility] Start: 02-01-2025 Incentive spirometry [facility] Start: 02-01-2025 Insertion of catheter into peripheral vein [facility] Start: 02-01-2025 Introduction of urinary catheter [facility] Start: 02-01-2025 Measuring intake and output [facility] Start: 02-01-2025 Methicillin resistant Staphylococcus aureus (MRSA) DNA [Presence] in Nose by DALIA with probe detection [facility] Start: 02-01-2025 Notification of physician [facility] Start: 02-01-2025 Oxygen therapy [facility] Start: 02-01-2025 Patient education [facility] Start: 02-01-2025 Physiotherapy of chest [facility] Start: 02-01-2025 Providing care according to standard [facility] Start: 02-01-2025 Provision of activity privileges [facility] Start: 02-01-2025 Referral for physical therapy [facility] Start: 02-01-2025 Referral to occupational therapist [facility] Start: 02-01-2025 Referral to service [facility] Start: 02-01-2025 Speech therapy assessment [facility] Start: 02-01-2025 Taking nasal swab [facility] Start: 02-01-2025 Tobacco use cessation education [facility] Start: 02-01-2025 End: 02-01-2025 [facility] Start: 02-01-2025 Electrocardiographic procedure [facility] Start: 02-01-2025 Gas panel - Arterial blood [facility] Start: 02-01-2025 Vital signs measurements [facility] Start: 02-01-2025 Consultation [facility] Start: 02-01-2025 Inhalation therapy procedure [facility] Start: 02-01-2025 Patient referral to dietitian [facility] Start: 01-31-2025 Bacteria identified in Sputum by Culture [facility] Start: 01-31-2025 Legionella pneumophila Ag [Presence] in Urine [facility] Start: 01-31-2025 Respiratory pathogens DNA and RNA panel - Respiratory specimen by DALIA with probe detection [facility] Start: 01-31-2025 Streptococcus pneumoniae antigen assay [facility] Start: 01-31-2025 Verification routine [facility] Start: 01-31-2025 Admission procedure [facility] Start: 01-31-2025 [facility] Start: 01-31-2025 Bacteria identified in Blood by Culture Blood Culture [facility] Start: 01-31-2025 Blood culture Blood Culture [facility] Start: 01-31-2025 Plain X-ray of shoulder Shoulder min 2 Views [facility] Start: 01-31-2025 XR Shoulder GE 2 Views [facility] Start: 01-31-2025 Continuous positive airway pressure ventilation treatment [facility] Start: 12-06-2024 Patient discharge [facility] Start: 12-05-2024 Following clinical pathway protocol [facility] Start: 12-05-2024 Enteric precautions [facility] Start: 12-05-2024 Enteric Bacteriology Enteric Bacteriology [facility] Start: 12-05-2024 Care planning and problem solving actions [facility] Start: 12-04-2024 Consultation [facility] Start: 12-04-2024 Following clinical pathway protocol [facility] Start: 12-04-2024 Oxygen therapy [facility] Start: 12-04-2024 Provision of activity privileges [facility] Start: 12-04-2024 Assessment of risk of venous thromboembolism [facility] Start: 12-04-2024 Insertion of catheter into peripheral vein [facility] Start: 12-04-2024 Measuring intake and output [facility] Start: 12-04-2024 Providing care according to standard [facility] Start: 12-04-2024 Referral to occupational therapist [facility] Start: 12-04-2024 Referral to service [facility] Start: 12-04-2024 Vital signs measurements [facility] Start: 12-04-2024 [facility] Start: 12-04-2024 Bacteria identified in Blood by Culture Blood Culture [facility] Start: 12-04-2024 Bacteria identified in Urine by Culture Urine Culture [facility] Start: 12-04-2024 Blood culture Blood Culture [facility] Start: 12-04-2024 Admission procedure [facility] Start: 12-04-2024 Hospital admission, emergency, from emergency room, medical nature [facility] Start: 12-04-2024 End: 12-04-2024 [facility] Start: 06-30-2023 Hypertension/CHF/CAD Annual BMP Blood Test Hypertension/CHF/CAD Annual BMP Blood Test [facility] Start: 02-16-2023 Urine screening for protein Diabetes: Annual Urine Protein Test (Microalbumin) [facility] Start: 06-08-2022 Adolescent depression screening assessment Depression Screening [facility] Start: 06-08-2022 Diabetes: Annual Retina Eye Exam Diabetes: Annual Retina Eye Exam [facility] Start: 06-08-2022 Diabetic foot examination Diabetes: Annual Foot Exam [facility] Start: 06-08-2022 Hemoglobin A1c measurement Diabetes: Blood Sugar Control Test (HGBA1C) [facility] Start: 06-08-2022 Hepatitis C screening Hepatitis C Screening [facility] Start: 06-08-2022 HIV screening HIV Screening [facility] Start: 06-08-2022 Screening for malignant neoplasm of colon Colorectal Cancer Screening: Colonoscopy [facility] Start: 06-08-2022 Social Influencers of Health Screening Social Influencers of Health Screening [facility] Start: 02-26-2022 Influenza vaccination Influenza Vaccine (#1) [facility] Start: 02-26-2022 Influenza vaccination given INFLUENZA VACCINE (#1) [facility] Start: 11-11-2021 COVID-19 Vaccine (5 - Booster) COVID-19 Vaccine (5 - Booster) [facility] Start: 02-26-2021 Influenza vaccination Sequential Influenza Vaccine (Season Ended) [facility] Start: 02-27-2020 Influenza vaccination given Sequential Influenza Vaccine (#1) [facility] Start: 01-31-2020 Administration of herpes zoster vaccine Zoster Vaccines (1 of 2) [facility] Start: 01-31-2020 Screening for malignant neoplasm of colon [facility] Start: 01-31-2020 Zoster vaccine hzv live for subcutaneous use ZOSTER (SHINGLES) VACCINE (1 of 2) [facility] Start: 01-31-2020 Zoster Vaccines (1 of 2) Zoster Vaccines (1 of 2) [facility] Start: 02-26-2018 Influenza vaccination given SEQUENTIAL INFLUENZA VACCINE (#1) [facility] Start: 2015 Screening for malignant neoplasm of colon [facility] Start: 11-19-2012 HbA1c (Bld) [Mass fraction] A1C [facility] Start: 11-19-2012 Hemoglobin A1c measurement A1C [facility] Start: 1989 DTaP,Tdap,and Td Vaccines (1 - Tdap) DTaP,Tdap,and Td Vaccines (1 - Tdap) [facility] Start: 01-31-1988 ANNUAL WELLNESS VISIT ANNUAL WELLNESS VISIT [facility] Start: 01-31-1988 Hepatitis C antibody, confirmatory test Hepatitis C Screening [facility] Start: 01-31-1988 Hepatitis C screening Hepatitis C Screening [facility] Start: 1986 COVID-19 Vaccine (1 of 2) COVID-19 Vaccine (1 of 2) [facility] Start: 1985 HIV screening HIV Screening [facility] Start: 1982 COVID-19 Vaccine (1) COVID-19 Vaccine (1) [facility] Start: 1982 Depression screening using PHQ-9 (Patient Health Questionnaire 9) score DEPRESSION SCREENING [facility] Start: 1981 Administration of diphtheria + tetanus + acellular pertussis vaccine DTAP/TDAP/TD VACCINE (1 - Tdap) [facility] Start: 01-31-1980 Albumin DL <= 20 mg/L (U) [Mass/Vol] Urine Microalbumin [facility] Start: 01-31-1980 Diabetic foot examination Foot Exam [facility] Start: 01-31-1980 Microalbumin measurement, urine, quantitative Urine Microalbumin [facility] Start: 01-31-1980 Ophthalmic examination and evaluation Ophthalmology Exam [facility] Start: 01-31-1976 Pneumococcal Vaccine: Ped or At-Risk (1 of 2 - PPSV23) Pneumococcal Vaccine: Ped or At-Risk (1 of 2 - PPSV23) [facility] Start: 01-31-1976 Pneumococcal Vaccine: Pediatrics (0 to 5 Years) and At-Risk Patients (6 to 64 Years) (1 - PCV) Pneumococcal Vaccine: Pediatrics (0 to 5 Years) and At-Risk Patients (6 to 64 Years) (1 - PCV) [facility] Start: 1973 History and physical examination, annual for health maintenance Wellness Visit [facility] Start: 1970 COVID-19 VACCINE (#1) COVID-19 VACCINE (#1) [facility] Start: 1970 Hepatitis B Vaccines (1 of 3 - 3-dose series) Hepatitis B Vaccines (1 of 3 - 3-dose series) [facility] Start: 1970 Low dose computed tomography of chest without contrast Low-dose CT Lung Cancer Screen [facility] Start: 1970 Prostate specific antigen measurement PSA Level [facility] Start: 1970 Tetanus vaccination [facility] End: 04-04-2020 12 lead ECG ECG 12 Lead ECG STAT Once for 1 Occurrences starting 04/04/2020 until 04/04/2020 [facility] Comment on above: Once for 1 Occurrences starting 04/04/20 until 04/04/2020 Alanine aminotransfe rase [Enzymatic activity/volume] in Serum or Plasma [facility] Albumin [Mass/volume ] in Serum or Plasma [facility] Alkaline phosphatase [Enzymatic activity/volume] in Serum or Plasma [facility] Anion gap in Serum or Plasma [facility] Bacteria identified in Sputum by Respiratory culture [facility] Bacteria identified in Sputum by Respiratory culture [facility] Bilirubin, total measurement [facility] BUN/Creatinine ratio [facility] Calcium [Mass/volume ] in Serum or Plasma [facility] Carbon dioxide, tota l [Moles/volume] in Central venous blood [facility] Creatinine [Mass/vol ume] in Serum or Plasma [facility] Erythrocyte mean cor puscular volume determination [facility] Glucose [Mass/volume ] in Serum or Plasma POCT glucose Point of Care Testing Routine 0600 until discontinued starting 05/16/2022 [facility] Comment on above: 0600 until discontinued starting 022 Glucose [Mass/volume ] in Serum or Plasma [facility] Hematocrit [Volume F raction] of Blood [facility] Hemoglobin [Mass/vol ume] in Blood [facility] Leukocytes [#/volume ] in Blood [facility] End: 05-18-2022 [place] Lab Routine One Time for 1 Occurrences starting 05/18/2022 until 05/18/2022 [facility] Work Phone: Comment on above: One Time for 1 Occurrences starting 04/29 until 05/18/2022 Mean corpuscular hem oglobin concentration determination [facility] Mean corpuscular hem oglobin determination [facility] Measurement of renal function [facility] Microscopic observat ion [Identifier] in Unspecified specimen by Gram stain [facility] Microscopic observat ion [Identifier] in Unspecified specimen by Gram stain [facility] Neutrophil count [facility] Neutrophil percent differential count [facility] Nucleic acid assay [facility] Patient Education [facility] Work Phone: Patient referral [facility] Work Phone: Platelets [#/volume] in Blood [facility] Potassium measurement [facility] Procalcitonin [Mass/ volume] in Serum or Plasma by Immunoassay [facility] Red blood cell count [facility] Red cell distributio n width determination [facility] Serum chloride measurement [facility] Sodium measurement [facility] Thyroid Evans Thyroid Evans Lab Add-On 05/15/2022 until discontinued, 1 completed [facility] [employer] Work Phone: Comment on above: 05/15/2022 until discontinued, 1 complet ed Total protein measurement [facility] Urea nitrogen [Mass/ volume] in Serum or Plasma [facility] Urine culture [facility] Immunizations Immunization Date Immunization Notes Care Provider Easton chapa 04-09-2011 influenza virus vacc ine, unspecified formulation Alaina Baez MD Work Phone: [facility] Payers Date Payer Category Payer Self-pay 2022 Medicaid [id number] 2017 Medicaid [id number] 2017 Medicaid MEDICAID [facility] [id number] 2017-Present [id number] 1970 Unknown [id number] 2.16.840.1.596996.3.579.2.902 1970 Unknown [id number] 2.16.840.1.894176.3.579.2.597 1970 Unknown [id number] 2.16.840.1.172025.3.579.2.597 1970 Unknown [id number] 2.16.840.1.839124.3.579.2.597 1970 Unknown [id number] 2.16.840.1.078868.3.579.2.597 1970 Unknown [id number] 2.16.840.1.284789.3.579.2.597 1970 Unknown [id number] 2.16.840.1.226713.3.579.2.597 1970 Unknown [id number] 2.16.840.1.836090.3.579.2.297 1970 Unknown [id number] 2.16.840.1.467345.3.579.2.900 1970 Unknown [id number] 2.16.840.1.763656.3.579.2.900 1970 Unknown [id number] 2.16.840.1.685524.3.579.2.1143 1970 Unknown [id number] 2.16.840.1.870047.3.579.2.1143 Unknown [id number] 2.16.840.1.951924.3.579.2.462 Unknown [id number] 2.16.840.1.192561.3.579.2.462 Unknown [id number] 2.16.840.1.413186.3.579.2.462 Unknown [id number] 2.16.840.1.858017.3.579.2.462 Unknown [id number] 2.16.840.1.254285.3.579.2.462 Unknown [id number] 2.16.840.1.574726.3.579.2.462 Unknown [id number] 2.16.840.1.946661.3.579.2.462 Unknown [id number] 2.16.840.1.766355.3.579.2.462 Unknown [id number] 2.16.840.1.222205.3.579.2.462 Unknown [id number] 2.16.840.1.718308.3.579.2.462 Unknown [id number] 2.16.840.1.293017.3.579.2.462 Unknown [id number] 2.16.840.1.432412.3.579.2.462 Unknown [id number] 2.16.840.1.702102.3.579.2.462 Unknown [id number] 2.16.840.1.593138.3.579.2.462 Unknown [id number] 2.16.840.1.403251.3.579.2.462 Social History Date Type Detail Facility Start: 01-13-2017 End: 04-17-2025 Tobacco smoking status ARIS Current every day smoker [facility] Phone: Start: 01-13-2017 End: 06-09-2022 Cigarettes smoked current (pack per day) - Reported [facility] Phone: Start: 1970 Sex Assigned At Not on file [facility] [employer] Work Phone: Start: 04-04-2020 End: 12-12-2020 Tobacco use and exposure Never used [facility] Start: 04-04-2020 Alcohol intake Current drinke r of alcohol (finding) [facility] Start: 01-11-2017 Alcohol Comment drink every co uple of days, pt lives in a correction and this rn unsure if this is correct [facility] Start: 05-04-2022 End: 06-08-2022 Exposure to SARS-CoV-2 (event) Not sure [facility] Start: 12-12-2020 End: 06-09-2022 Alcohol intake Ex-drinker (finding) [facility] History of tobacco use Cigarette Smoker [facility] Start: 1970 Sex Assigned At Male [facility] Sex Male [facility] Goals Date Patient Goal Desired Activity /State Functional Status Date Assessment Result Facility 02-03-2025 Functional status Stand and pivot [facility] Work Phone: 12-06-2024 Functional status Chair [facility] Work Phone: Mental Status Date Assessment Result Facility 02-03-2025 Cognitive function Voice/Name [facility] Work Phone: 12-06-2024 Cognitive function Voice/Name [facility] Work Phone: Clinical Notes 12-12-2020 to 04-17-2025 Note Date & Type Note Facility 04-17-2025 Discharge summary Note Date/Time April 17, 2025 2:18pm [facility] Medical Records Department [address] [place] [address] Emergency Department Summary 04/17/25 MR#: [id number] Acct: [id number] Name: RIGO GARCIA Rep #:[id number] : 1970 55 From: Ovi Petit MD PCP: Dr. Mame Bright MD Status:REG ER Location: ED HPI History of Present Illness Chief Complaint: Shortness of Breath Narrative Narrative: 55-year-old male presents from residential facility with shortness of breathand low pulse ox. It was reported that he had pulse ox in the 80s. He is a smoker. He denies any fevers or chills, no cough. He states that occasionally he does wear oxygen at the residential facility. No exacerbating or alleviating factors. He states that he has been at this particular residential facility for years. [facility] Medical History Hemiplegia and hemiparesis following cerebral [...] TID BIPOLAR 5 12/03/24 History calcium carbonate (Leslye-Hesperia 600 mg PO Q6H PRN hear tburn [...] history of previous surgery Social History housing: correction Smoking Status: Current every day smoker tobacco [...] Patient states he wears oxygen at the residential [facility] when he gets into trouble. He was told that he should use it more frequently. I discussed the patient with his legal guardian,his sister Chris Garcia who is agreeable to him returning to the [facility]. He was instructed that should his [...] discharged as he has oxygen at the residential [facility]. Return instructions were reviewed. Disposition is [...] % (Auto) 62.0 Lymph % (Auto) 23.6 [place] % (Auto) 9.5 Eos % (Auto) 3.8 [...] is identified in the chest. [facility] Chest CTA 04/17/25 11:14 IMPRESSION: No pulmonary embolism. No acute chest abnormality. Reading Location: [address] Discharge Plan Triage Chief Complaint: Shortness [...] 1,000 mg tablet 1,000 mg PO BID Elslye-Hesperia Heartburn Chew 300 mg (750 mg) tablet,chewable [...] with new or worsening symptoms. Print Language: Paraguayan Disposition Disposition: Residential Facility Discharge Location: [place] What to do if you have Problems For any increased pain, shortness of breath, bleeding, nausea or vomiting, chestpain, or any unexpected problems, contact your Primary Care Provider. Call [facility] ([phone]) or report to the closest Emergency Room. Call 911 if necessary. 04/17/25 3433 <Electronically signed by Ovi Petit MD> Cosigner Signature (if applicable): CC: Dr. Mame Bright MD ~ Signed [facility] Work Phone: [phone] 886-108510-21-2025 Discharge summary [facility] Medical Records Department [address] [place] [address] Emergency Department Summary 04/17/25 MR#: [id number] Acct: [id number] Name: RIGO GARCIA Rep #:[id number] : 1970 55 From: Ovi Petit MD PCP: Dr. Mame Bright MD Status:REG ER Location: ED HPI History of Present Illness Chief Complaint: Shortness of Breath Narrative Narrative: 55-year-old male presents from residential facility with shortness of breathand low pulse ox. It was reported that he had pulse ox in the 80s. He is a smoker. He denies any fevers or chills, no cough. He states that occasionally he does wear oxygen at the residential facility. No exacerbating or alleviating factors. He states that he has been at this particular residential facility for years. [facility] Medical History Hemiplegia and hemiparesis following cerebral [...] TID BIPOLAR 5 12/03/24 History calcium carbonate (Leslye-Hesper[place] 600 mg PO Q6H PRN hear tburn [...] history of previous surgery Social History housing: correction Smoking Status: Current every day smoker tobacco [...] Patient states he wears oxygen at the residential [facility] when he gets into trouble. He was told that he should use it more frequently. I discussed the patient with his legal guardian,his sister Chris Garcia who is agreeable to him returning to the [facility]. He was instructed that should his [...] discharged as he has oxygen at the residential [facility]. Returninstructions were reviewed. Disposition is discharged [...] % (Auto) 62.0 Lymph % (Auto) 23.6 [place] % (Auto) 9.5 Eos % (Auto) 3.8 [...] embolism. No acute chest abnormality. Reading Location: [address] Discharge Plan Triage Chief Complaint: Shortness [...] 1,000 mg tablet 1,000 mg PO BID Leslye-Hesperia Heartburn Chew 300 mg (750 mg) tablet,chewable [...] with new or worsening symptoms. Print Language: Paraguayan Disposition Disposition: Residential Facility Discharge Location: [place] What to do if you have Problems For any increased pain, shortness of breath, bleeding, nausea or vomiting, chestpain, or any unexpected problems, contact your Primary Care Provider. Call [facility] ([phone]) or report tothe closest Emergency Room. Call 911 if necessary. 04/17/25 1318 Cosigner Signature (if applicable): CC: Dr. Mame Bright MD ~ Signed [facility]10-21-2025 Radiology Diagnostic study note [facility] Imaging Services [address] [place] [address] [id number] CTA Chest W/WO Contrast MR#: [id number] Acct: [id number] Name: RIGO GARCIA Rep #: [id number] : 1970 M 55 From: Quoc Lua MD PCP: Dr. Mame Bright MD Status: [facility] ER Study:CTA Chest W/WO Contrast Date of Exam: 04/17/25 Exam# [id number] Ordering Dr: Ovi Petit MD PROCEDURE: CTA [...] embolism. No acute chest abnormality. Reading Location: [address] CC: Dr. Ovi Petit MD; Dr. Mame Bright MD ~ Slip Cover Cutter: Signed [facility]10-21-2025 Radiology Diagnostic study note [facility] Imaging Services [address] [place] [address] Chest 1 View (Portable) MR#: [id number] Acct: [id number] Name: RIGO GARCIA Rep #: [id number] : 1970 M 55 From: Claudy Cardenas MD PCP: Dr. Mame Bright MD Status: PRE ER Study:Chest 1 View (Portable) Date of Exam: 04/17/25 Exam# [id number] Ordering Dr: Ovi Petit MD PROCEDURE: CHEST [...] is identified in the chest. Reading Location: [facility] CC: Dr. Ovi Petit MD; Dr. Mame Bright MD ~ Slip Cover Cutter: Signed [facility]08-09-2025 Consult note Author Tatum Toney [facility] Note Date/Time February 03, 2025 2:5 2pm [facility] Medical Records Department [address] [place] [address] Pharmacokinetic/Renal -Consult 02/03/25 1420 MR#: [id number] Acct: [id number] Name: RIGO GARCIA Rep #:[id number] : 1970 55 From: Tatum shrestha PCP: Dr. Mame Bright MD Status:ADM IN Location: [facility] [id number] Consult Antibiotic Management Pharmacy has been [...] Date Fredo Alberts MD CC: ~ Signed [facility] Work Phone: [phone]) 466-607908-09-2025 Discharge summary Author Fredo Alberts [facility] Note Date/Time February 03, 2025 2:[address] [facility] Medical Records Department [address] [place] [address] Transfer to [facility] MR#: [id number] Acct: [id number] Name: RIGO GARCIA Rep #:[id number] : 1970 55 From: Fredo Alberts MD PCP: Dr. Mame Bright MD Status:ADM IN Certification of patient admission REQUIRED AT TIME OF ADMISSION. I CERTIFY THAT POST-HOSPITAL F SERVICES ARE REQUIRED TO BE GIVEN ON AN IN-PATIENT BASIS BECAUSE OF THE ABOVE NAMED PATIENT'S NEED FOR SKILLED NURSING CARE ON A CONTINUING BASIS FOR THE CONDITION(S) FOR WHICH HE/SHE WAS RECEIVING IN-PATIENT HOSPITAL SERVICES PRIOR TO HIS/HER TRANSFER TO THE [facility]. 02/03/25 1445<Electronically signed by Fredo Alberts MD> [...] residual right-sidedhemiplegia and dysarthria resident at [facility] brought in with shortness of breath and [...] to consistent carbohydrate diet per consistency/textures per [employer] recommendations. Will monitor weight trends. Discharge Plan [...] in before D/C Order can be placed): Residential Facility 02/03/25 7976 <Electronically signed by Fredo Alberts MD> Cosigner Signature (if applicable): CC: Dr. Rosalva Fowler MD; Dr. Mame Bright MD ~ [facility] Work Phone: [phone]) [phone] Discharge summary Author Fredo Alberts [facility] Note Date/Time February 03, 2025 2:[address] [facility] Medical Records Department [address] [place] [address] Discharge Summary 02/03/25 1438 MR#: [id number] Acct: [id number] Name: RIGO GARCIA Rep #:[id number] : 1970 55 From: Fredo Alberts MD PCP: Dr. Mame Bright MD Status:ADM IN Location: [place] [id number] Providers Date of Admission: 01/31/25 Primary Care Physician: Dr. Mame Bright MD Reason For Visit: ACUTE HYPOXIA, COPD EXAC, ? PNA Diagnosis Discharge Diagnosis (1) Acute exacerbation of chronic obstructive pulmonary disease: Status: Chronic Code(s): J44.1 - Chronic obstructive pulmonary disease with (acute) exacerbation Plan Patient is a 55-year-old gentleman with history of CVA with residual right-sidedhemiplegia and dysarthria resident at [facility] brought in with shortness of breath and [...] mg PO TID BIPOLAR 07/31/24 calcium carbonate (Leslye-[place] Heartburn Chew) 600 mg PO Q6H PRN [...] (Auto) 85.0 H, Lymph % (Auto) 7.9L, [place] % (Auto) 6.6, Eos % (Auto) 0.0, [...] 1,000 mg tablet 1,000 mg PO BID Leslye-[place] Heartburn Chew 300 mg (750 mg) tablet,chewable 600 mg PO Q6H PRN (Reason: heartburn) acetaminophen [Aminofen] 325 mg tablet 650 mg PO Q4H PRN (Reason: fever or pain) Referrals / Follow Up: Mame Bright MD [Primary Care Provider] - Within 2 Weeks Disposition Disposition (needs filled in before D/C Order can be placed): Residential Facility Charges/Coding Visit Charges Inpatient E&M: 81023 Disch Hosp >30min 02/03/25 1442 <Electronically signed by Fredo Alberts MD> Cosigner Signature (if applicable): CC: Dr. Fredo Alberts MD; Dr. Mame Bright MD~ Signed [facility] Work Phone: 1([phone]) 286-914608-09-2025 Consult note [facility] Medical Records Department [address] [place] [address] Pharmacokinetic/Renal -Consult 02/03/25 1420 MR#: [id number] Acct: [id number] Name: JOSERIGO Rep #:[id number] : 1970 55 From: Tatum shrestha PCP: Dr. Mame Bright MD Status:ADM IN Y Location: [place] [address] Consult Antibiotic Management Pharmacy has been consulted [...] Date Fredo Alberts MD CC: ~ Signed [facility]08-09-2025 Discharge summary [facility] Medical Records Department [address] [place] [address] Transfer to [facility] MR#: [id number] Acct: [id number] Name: RIGO GARCIA Rep #:[id number] : 1970 55 From: Fredo Alberts MD PCP: Dr. Mame Bright MD Status:ADM IN Certification of patient admission REQUIRED AT TIME OF ADMISSION. I CERTIFY THAT POST-HOSPITAL [facility] SERVICES ARE REQUIRED TO BE GIVEN ON AN IN-PATIENT BASIS BECAUSE OF THE ABOVE NAMED PATIENT'S NEED FOR SKILLED NURSING CARE ON A CONTINUING BASIS FOR THE CONDITION(S) FOR WHICH HE/SHE WAS RECEIVING IN-PATIENT HOSPITAL SERVICES PRIOR TO HIS/HER TRANSFER TO THE [facility]. 02/03/25 1445 Diet Diet Order/Speech Therapy: INPATIENT [...] right- sidedhemiplegia and dysarthria resident at [facility] brought in with shortness of breath and [...] to consistent carbohydrate diet per consistency/textures per [employer] recommendations. Will monitor weight trends. Discharge Plan [...] 1,000 mg tablet 1,000 mg PO BID Leslye-[place] Heartburn Chew 300 mg (750 mg) tablet,chewable 600 mg PO Q6H PRN (Reason: heartburn) acetaminophen [Aminofen] 325 mg tablet 650 mg PO Q4H PRN (Reason: fever or pain) Referrals / Follow Up: Mmae Bright MD [Primary Care Provider] - Within 2 Weeks Disposition Disposition (needs filled in before D/C Order can be placed): Residential Facility 02/03/25 6765 Cosigner Signature (if applicable): CC: Dr. Rosalva Fowler MD; Dr. Mame Bright MD ~ [facility]08-09-2025 Discharge summary [facility] Medical Records Department [address] [place] [address] Discharge Summary 02/03/25 1438 MR#: [id number] Acct: [id number] Name: RIGO GARCIA Rep #:[id number] : 1970 55 From: Fredo Alberts MD PCP: Dr. Mame Bright MD Status:ADM IN Location: [place] [address] Providers Date of Admission: 01/31/25 Primary Care Physician: Dr. Mame Bright MD Reason For Visit: ACUTE HYPOXIA, COPD EXAC, ? PNA Diagnosis Discharge Diagnosis (1) Acute exacerbation of chronic obstructive pulmonary disease: Status: Chronic Code(s): J44.1 - Chronic obstructive pulmonary disease with (acute) exacerbation Plan Patient is a 55-year-old gentleman with history of CVA with residual right- sidedhemiplegia and dysarthria resident at [facility] facility brought in with shortness of [...] mg PO TID BIPOLAR 07/31/24 calcium carbonate (Leslye-[place]es[place] Heartburn Chew) 600 mg PO Q6H PRN [...] (Auto) 85.0 H, Lymph % (Auto) 7.9L, [place] % (Auto) 6.6, Eos % (Auto) 0.0, [...] 1,000 mg tablet 1,000 mg PO BID Leslye-[place] Heartburn Chew 300 mg (750 mg) tablet,chewable 600 mg PO Q6H PRN (Reason: heartburn) acetaminophen [Aminofen] 325 mg tablet 650 mg PO Q4H PRN (Reason: fever or pain) Referrals / Follow Up: Mame Bright MD [Primary Care Provider] - Within 2 Weeks Disposition Disposition (needs filled in before D/C Order can be placed): Residential Facility Charges/Coding Visit Charges Inpatient E&M: 46920 Disch Hosp >30min 02/03/25 1442 Cosigner Signature (if applicable): CC: Dr. Fredo Alberts MD; Dr. Mame Bright MD~ Signed [facility]08-09-2025 [facility] Progress note Author Fredo Alberts [facility] Note Date/Time February 03, 2025 9:[address] [facility] Medical Records Department [address] [facility] [place] [address] Progress Note - Hospitalist 02/03/25 0710 MR#: [id number] Acct: [id number] Name: RIGO GARCIA Rep #:[id number] : 1970 55 From: Fredo Alberts MD PCP: Dr. Mame Bright MD Status:ADM IN Location: [place] [id number] Reason for Visit Chief Complaint: Cough, [...] (Auto) 86.0 H, Lymph % (Auto) 7.5L, [place] % (Auto) 6.1, Eos % (Auto) 0.0, [...] (Auto) 85.0 H, Lymph % (Auto) 7.9L, [place] % (Auto) 6.6, Eos % (Auto) 0.0, [...] with residual right-sidedhemiplegia and dysarthria resident at [facility] brought in with shortness of [...] below 7 Charges/Coding Visit Charges Inpatient E&M: 89483 Subs Hosp L2 02/03/25957 <Electronically signed by Fredo Alberts MD> Cosigner Signature (if applicable): CC: ~ Signed [facility] Work Phone: 1(346) 529-531308-09-2025 Progress note [facility] Medical Records Department [address] [place] [address] Progress Note - Hospitalist 02/03/25 0710 MR#: [id number] Acct: [id number] Name: RIGO GARCIA Rep #:[id number] : 1970 55 From: Fredo Alberts MD PCP: Dr. Mame Bright MD Status:ADM IN Location: [place] [address] Reason for Visit Chief Complaint: Cough, dyspnea, [...] (Auto) 86.0 H, Lymph % (Auto) 7.5L, [place] % (Auto) 6.1, Eos % (Auto) 0.0, Baso % (Auto) 0.1, Absolute Neuts (auto)10.1 H, Absolute Lymphs (auto) 0.88, Nucleated RBC % 0, Sodium 139, Potassium 4.2, Chloride 101, Carbon Dioxide 25.8, Anion Gap 12, BUN 15, Creatinine 0.93, Estim Creat Clear Ubrk451.75, Est GFR (MDRD) Non-Af 97, BUN/Creatinine Ratio [...] (Auto) 85.0 H, Lymph % (Auto) 7.9L, [place] % (Auto) 6.6, Eos % (Auto) 0.0, [...] residual right- sidedhemiplegia and dysarthria resident at [facility] brought in with shortness of [...] below 7 Charges/Coding Visit Charges Inpatient E&M: 66788 Subs Hosp L2 02/03/25 0180 Cosigner Signature (if applicable): CC: ~ Signed [facility]08-08-2025 Progress note Author Fredo Alberts [facility] Note Date/Time February 02, 2025 9:[address] [facility] Medical Records Department [address] [place] [address] Progress Note - Hospitalist 02/02/25722 MR#: [id number] Acct: [id number] Name: RIGO GARCIA Rep #:[id number] : 1970 55 From: Fredo Alberts MD PCP: Dr. Mame Bright MD Status:ADM IN Location: [place] [address] Reason for Visit Chief Complaint: Cough, dyspnea, [...] residual right-sidedhemiplegia and dysarthria resident at [facility] brought in with shortness of breath and [...] below 7 Charges/Coding Visit Charges Inpatient E&M: 34319 Subs Hosp L3 02/02/25 0911 <Electronically signed by Fredo Alberts MD> Cosigner Signature (if applicable): CC: ~ Signed [facility] Work Phone: 1(471) 395-876608-08-2025 Progress note [facility] Medical Records Department [address] [place] [address] Progress Note - Hospitalist 02/02/25722 MR#: [id number] Acct: [id number] Name: RIGO GARCIA Rep #:[id number] : 1970 55 From: Fredo Alberts MD PCP: Dr. Mame Bright MD Status:ADM IN Location: [place] [address] Reason for Visit Chief Complaint: Cough, dyspnea, [...] residual right- sidedhemiplegia and dysarthria resident at [facility] brought in with shortness of [...] below 7 Charges/Coding Visit Charges Inpatient E&M: 37627 Subs Hosp L3 02/02/25 0911 Cosigner Signature (if applicable): CC: ~ Signed [facility]08-07-2025 Progress note Author Fredo Alberts [facility] Note Date/Time February 01, 2025 11: 06am [facility] Medical Records Department [address] [place] [address] Progress Note - Hospitalist 02/01/25 1018 MR#: [id number] Acct: [id number] Name: RIGO GARCIA Rep #:[id number] : 1970 55 From: Fredo Alberts MD PCP: Dr. Mame Bright MD Status:ADM IN Location: [place] [address] Reason for Visit Chief Complaint: Cough, dyspnea, wheezing. Subjective Subjective Patient is a 55-year-old gentleman with history of CVA with residual right-sidedhemiplegia and dysarthria resident at [facility] brought in with shortness of breath. [...] Neut % (Auto) 67.9, Lymph % (Auto) 20.8,[place] % (Auto) 8.8, Eos % (Auto) 1.8, [...] Clarity Clear, Urine pH 5.0, Ur Specific [place] 1.020, Urine Protein 30 H, Urine Glucose [...] (Auto) 94.2 H, Lymph % (Auto) 4.3L, [place] % (Auto) 1.1, Eos % (Auto) 0.0, [...] injury. Correlate as to acuity. Reading Location: [place] [address] Chest X-Ray 01/31/25 21:32 IMPRESSION: Mild pulmonary edema. Right lower lobe opacity not excluded. Stable mild cardiomegaly. Low riding right humerus; dislocation is not entirely excluded.. Reading Location: [facility] Physical Exam Narrative GENERAL: cooperative HEENT: Atraumatic; [...] documentation,50 Minutes Charges/Coding Visit Charges Inpatient E&M: 67070 Subs Hosp L3 02/01/25 1106 <Electronically signed by Fredo Alberts MD> Cosigner Signature (if applicable): CC: ~ Signed [facility] Work Phone: 1(335) 252-254708-07-2025 Progress note [facility] Medical Records Department [address] [place] [address] Progress Note - Hospitalist 02/01/25 1018 MR#: [id number] Acct: [id number] Name: RIGO GARCIA Rep #:[id number] : 1970 55 From: Fredo Alberts MD PCP: Dr. Mame Bright MD Status:ADM IN Location: [place] [address] Reason for Visit Chief Complaint: Cough, dyspnea, wheezing. Subjective Subjective Patient is a 55-year-old gentleman with history of CVA with residual right- sidedhemiplegia and dysarthria resident at [facility] brought in with shortness of breath. [...] Neut % (Auto) 67.9, Lymph % (Auto) 20.8,[place] % (Auto) 8.8, Eos % (Auto) 1.8, [...] Clarity Clear, Urine pH 5.0, Ur Specific [place] 1.020, Urine Protein 30 H, Urine Glucose [...] (Auto) 94.2 H, Lymph % (Auto) 4.3L, [place] % (Auto) 1.1, Eos % (Auto) 0.0, [...] injury. Correlate as to acuity. Reading Location: [place] [address] Chest X-Ray 01/31/25 21:32 IMPRESSION: Mild pulmonary edema. Right lower lobe opacity not excluded. Stable mild cardiomegaly. Low riding right humerus; dislocation is not entirely excluded.. Reading Location: [facility] Physical Exam Narrative GENERAL: cooperative HEENT: Atraumatic; [...] right- sidedhemiplegia and dysarthria resident at [facility] brought in with shortness of breath and [...] documentation,50 Minutes Charges/Coding Visit Charges Inpatient E&M: 64694 Subs Hosp L3 02/01/25 1106 Cosigner Signature (if applicable): CC: ~ Signed [facility]08-07-2025 History and physical note Author Rosalva Fowler [facility] Note Date/Time February 01, 2025 2:1 1am [facility] Medical Records Department [address] [facility] [place] [address] H&P Exam - Hospitalist 01/31/25 2231 MR#: [id number] Acct: [id number] Name: RIGO GARCIA Rep #:[id number] : 1970 55 From: Rosalva Fowler MD PCP: Dr. Mame Bright MD Status:ADM IN Location: [facility] [id number] HPI - General General Date of [...] associated lactic acidosis who presents to the [facility] ED on 01/31/2025 from his skilled facility [...] rate 84, BP 110/67, respiratory rate 28, sppbhyeak91% on room air with improvement to 94% [...] TID BIPOLAR 5 12/03/24 History calcium carbonate (Leslye-Hesperia 600 mg PO Q6H PRN hear tburn [...] 23:[address] Rosalva Fowler MD) housing: correction Smoking Status: Current every day smoker tobacco [...] Neut % (Auto) 67.9, Lymph % (Auto) 20.8,[place] % (Auto) 8.8, Eos % (Auto) 1.8, [...] dislocation is not entirely excluded.. Reading Location: [facility] Assessment & Plan Assessment/Plan (1) Acute exacerbation [...] associated lactic acidosis who presents to the [facility] ED on 01/31/2025 from his skilled facility [...] code status. Charges/Coding Visit Charges Inpatient E&M: 59632 Init Hosp L3 01/31/25 2319 <Electronically signed [...] MD; Dr. Mame Bright MD ~* Signed [facility] Work Phone: 1(255) 931-969308-07-2025 Consult note Author Devyn Ken [facility] Note Date/Time February 01, 2025 1:5 4am [facility] Medical Records Department [address] [place] [address] Pharmacokinetic/Renal -Consult 02/01/25 0153 MR#: [id number] Acct: [id number] Name: RIGO GARCIA Rep #:[id number] : 1970 55 From: Devyn Cherry od PCP: Dr. Mame Bright MD Status:ADM IN Y Location: [place] [address] Consult Antibiotic Management Pharmacy has been consulted [...] Signature (if applicable): Date CC: ~ Signed [facility] Work Phone: 1([phone]) 642-879808-07-2025 History and physical note [facility] Medical Records Department [address] [place] [address] H&P Exam - Hospitalist 01/31/251 MR#: [id number] Acct: [id number] Name: RIGO GARCIA Rep #:[id number] : 1970 55 From: Rosalva Fowler MD PCP: Dr. Mame Bright MD Status:ADM IN Location: [place] [address] HPI - General General Date of Admission: [...] with associated lactic acidosis whopresents to the [facility] ED on 01/31/2025 from his skilled facility [...] rate 84, BP 110/67, respiratory rate 28, bnjgjhqin44% on room air with improvement to 94% on 3 L nasal cannula-> most recent repeat vitals upon evaluation T98.8, heart rate 96, BP 117/71, respiratory rate 30, 92% on 6 L nasal cannula--> eventually transition to Airvo, ABG with pH 7.32, bicarb 21, O2 saturation 91%, pCO2 40.8, OB285qi nasal cannula, CBC with WC 10.2, hemoglobin [...] TID BIPOLAR 5 12/03/24 History calcium carbonate (Leslye-Hesper[place] 600 mg PO Q6H PRN hear tburn [...] 23:[address] Rosalva Fowler MD) housing: correction Smoking Status: Current every day smoker tobacco [...] Neut % (Auto) 67.9, Lymph % (Auto) 20.8,[place] % (Auto) 8.8, Eos % (Auto) 1.8, [...] dislocation is not entirely excluded.. Reading Location: [facility] Assessment & Plan Assessment/Plan (1) Acute exacerbation [...] with associated lactic acidosis whopresents to the [facility] ED on 01/31/2025 from his skilled facility [...] code status. Charges/Coding Visit Charges Inpatient E&M: 41924 Init Hosp L3 01/31/25 6193 Cosigner Signature (if applicable): CC: Dr. Rosalva Fowler MD; Dr. Mame Bright MD~ Signed ADDENDUM by Dr. Rosalva Fowler MD on 02/01/25 at 0211 Addendum SNF clarified paperwork for code status and it is in fact noted to be DNR-CCA, will change status. 02/01/25 021 Cosigner Signature (if applicable): cc: Dr. Rosalva Fowler MD; Dr. Mame Bright MD ~* Signed [facility]08-07-2025 Consult note [facility] Medical Records Department [address] [place] [address] Pharmacokinetic/Renal -Consult 02/01/25 0153 MR#: [id number] Acct: [id number] Name: RIGO GARCIA Rep #:[id number] : 1970 55 From: Devyn Cherry od PCP: Dr. Mame Bright MD Status:ADM IN Y Location: [place] [address] Consult Antibiotic Management Pharmacy has been consulted [...] Signature (if applicable): Date CC: ~ Signed [facility]08-07-2025 Evaluation note* Diagnosis Onset Date Resolution Status Admit Date Hemiplegia affecting dominan t side, post-stroke acute January 31 11:03pm Type 2 diabetes mellitus acute January 31, 2025 11:03pm Acidosis, lactic resolved January 312024 11:03pm Acute bronchospasm resolved January 31, 2025 11:03pm Acute exacerbation of chroni c obstructive pulmonary disease resolved 2024 11:03pm Acute hypoxemic respiratory failure resolved January 31, 2025 11:03pm [facility] Work Phone: 1(682) 693-790408-07-2025 Radiology Diagnostic study note [facility] Imaging Services [address] [place] [address] Shoulder min 2 Views MR#: [id number] Acct: [id number] Name: RIGO GARCIA Rep #: [id number] : 1970 M 55 From: Alivia Woods MD PCP: Dr. Mame Bright MD Status: ADM IN Study:Shoulder min 2 Views Date of Exam: 01/31/25 Exam# [id number] Ordering Dr: Natacha Fowler MD PROCEDURE: SHOULDER [...] injury. Correlate as to acuity. Reading Location: [place] [address] CC: Dr. Rosalva Fowler MD; Dr. Mame Bright MD ~ Slip Cover Cutter: Signed [facility]08-07-2025 Discharge summary Author Keith Garcia [facility] Note Date/Time January 31, 2025 10: 38pm [facility] Medical Records Department [address] [place] [address] Emergency Department Summary 01/31/25 MR#: [id number] Acct: [id number] Name: RIGO GARCIA Rep #:[id number] : 1970 55 From: Keith Garcia MD [...] TID BIPOLAR 5 12/03/24 History calcium carbonate (Leslye-[place]es[place] 600 mg PO Q6H PRN hear tburn [...] 20:[address] Keith Garcia MD) housing: correction Smoking Status: Current every day smoker tobacco [...] COPD. That was not listed on his correction blaire) and Prior labs Lab Data Attestation: [...] % (Auto) 67.9 Lymph % (Auto) 20.8 [place] % (Auto) 8.8 Eos % (Auto) 1.8 [...] dislocation is not entirely excluded.. Reading Location: [facility] EKG Initial EKG: Attestation: I personally reviewed and interpreted this EKG as follows: Interpretation: Sinus Rhythm (Rate is 80. The EKG is normal. SC intervalis on 56 ms. QS duration 78 ms. QT duration 260 ms. [place] is normal.) Management Discussion w/another healthcare provider: [...] of records from SNF), Discussing w/Patient &/or Family/Student Life Advisor, Discussing w/Consultants (Discussion with hospitalist for admission), [...] MD [Primary Care Provider] - Print Language: Paraguayan Disposition Disposition: Acute [facility] What to do if you have Problems For any increased pain, shortness of breath, bleeding, nausea or vomiting, chestpain, or any unexpected problems, contact your Primary Care Provider. Call [facility] ([phone]) or report to the closest Emergency Room. Call 911 if necessary. 01/31/252237 <Electronically signed by Keith Garcia MD> Cosigner Signature (if applicable): CC: Dr. Mame Bright MD ~ Signed [facility] Work Phone: 1(205) 593-234808-06-2025 History and physical note [facility] Medical Records Department [address] [place] [address] H&P Exam - Hospitalist 01/31/252230 MR#: [id number] Acct: [id number] Name: RIGO GARCIA Rep #:[id number] : 1970 55 From: Rosalva Fowler MD [...] with associated lactic acidosis whopresents to the [facility] ED on 01/31/2025 from his skilled facility [...] rate 84, BP 110/67, respiratory rate 28, [id number]% on room air with improvement to 94% on 3 L nasal cannula-> most recent repeat vitals upon evaluation T98.8, heart rate 96, BP 117/71, respiratory rate 30, 92% on 6 L nasal cannula--> eventually transition to Airvo, ABG with pH 7.32, bicarb 21, O2 saturation 91%, pCO2 40.8, [id number] nasal cannula, CBC with WC 10.2, hemoglobin [...] BIPOLAR 2 5 12/03/24 History calcium carbonate (Leslye-[place]es[place] 600 mg PO Q6H PRN hear tburn [...] 23:[address] Rosalva Fowler MD) housing: correction Smoking Status: Current every day smoker tobacco [...] Neut % (Auto) 67.9, Lymph % (Auto) 20.8,[place] % (Auto) 8.8, Eos % (Auto) 1.8, [...] dislocation is not entirely excluded.. Reading Location: [facility]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 Physician No Encounter Date: 04/04/20 Chief Complaint: Chief Complaint Patient presents with Aggressive Behavior Psychiatric Evaluation History of Presenting Illness: Rigo Garcia is a 50 y.o. male with a past medical history that includes has a past medical history of Bipolar 1 disorder (HCC), BPH (benign prostatic hypertrophy), COPD (chronic obstructive pulmonary disease) ([facility]), Depression, Diabetes mellitus (HCC), Dysarthria, GERD (gastroesophageal reflux disease), Hyperlipidemia, Hypertension, Schizophrenia (HCC), Seizures ([facility]), and Stroke ([facility]).. 50-year-old male presenting with aggressive behavior [...] Follow-up information has not been specified. . (Klatcher Software was used to transcribe this note) ED Course: Diagnostics Laboratory (if any, during ED visit): Labs Reviewed URINALYSIS - Abnormal; Notable for the following components: Result Value Specific [place] 1.003 (*) All other components within normal [...] Procedure Abnormality Status --------- ------ CBC Auto Differential[[id number]] Abnormal Final result Please view results for [...] couple of days, pt lives in a correction and this rn unsure if this is correct Drug use: No Sexual activity: Never Lifestyle Physical activity Days per week: Not on file Minutes per session: Not on file Stress: Not on file Relationships Social connections Talks on phone: Not on file Gets together: Not on file Attends presybeterian service: Not on file Active member of club or organization: Not on file Attends meetings of clubs or organizations: Not on file Relationship status: Not on file Other Topics Concern Not on file Social History Narrative Past Psychiatric History Hospitalizations: Several since the age of 15- [facility] 2012, [facility] 2011 Diagnoses: Bipolar DO, MDD, Schizophrenia Outpatient Treatment: Dr. Maddox at [facility]. 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 Patricia Vagras MD Other Provider Active Sta rt: December [...] Star t: December 06, 2024 Dr. Patricia Varags MD Other Provider Active Sta rt: December [...] Sta rt: February 01, 2025 Dr. Rosalva Fowlre MD Admit Provider Active St art: February [...] BE BASED ON THE PRIMARY CLINICAL RECORDS. [employer] provides no warranty or guarantee of the accuracy or completeness of information in this document.
--- NOTE | 2025-06-15 20:54 | PCM.HP.STD ---
HPI - General General Date of Admission: 06/15/25 HPI Narrative GUERDA GARCIA, is a 55 M who presents to the hospital from nursing facility after sudden onset of shortness of breath and dyspnea. He was outside smoking in the facility earlier today when he had nausea followed by emesis. At that point his oxygen saturation decreased to about 84% on room air and EMS was called. He did improve with nebulizer treatments and felt a little bit better however he is requiring 3 L nasal cannula while here in the hospital. Chest x-ray was unremarkable however there is concern for possible aspiration given rales on exam in the right lung base. He is allergic to Unasyn and therefore was given a dose of Rocephin in the emergency room. He was little bit sleepy, though he is on medications for schizophrenia, an ABG was obtained and his pCO2 was only slightly elevated at 59.6 with a normal pH therefore this is likely around where he lives from a respiratory status perspective. [facility] Medical History (Updated 06/15/25 @ 19:[address] Jordon Fernandez MD) Hemiplegia and hemiparesis following cerebral infarction affecting right dominant side Dysarthria following cerebral infarction COPD (chronic obstructive pulmonary disease) Nicotine dependence, cigarettes, uncomplicated Violent behavior Unspecified lack of coordination Acute bronchitis, unspecified Pneumonitis due to inhalation of food and vomit Peripheral vascular disease, unspecified Need for assistance with personal care Gastro-esophageal reflux disease without esophagitis Benign prostatic hyperplasia with lower urinary tract symptoms CVA (cerebral vascular accident) Depression Diabetes Bipolar 1 disorder HLD (hyperlipidemia) HTN (hypertension) Schizophrenia COVID-19 virus infection Home Medications ?Medication ?Instructions ?Recorded ?Last Taken ?Type acetaminophen 325 mg tablet 650 mg PO Q4H PRN fever or pain 07/31/24 Unknown History (Aminofen) aripiprazole 15 mg tablet (Abilify) 15 mg PO DAILY SCHIZOPHRENIA 07/31/24 12/03/24 History aspirin 81 mg tablet,delayed 81 mg PO DAILY HTN 07/31/24 12/03/24 History release (Adult Low Dose Aspirin) buspirone 10 mg tablet 10 mg PO TID BIPOLAR 07/31/24 12/03/24 History calcium carbonate ([place] 600 mg PO Q6H PRN heartburn 07/31/24 11/26/24 History Heartburn Chew) cholecalciferol (vitamin D3) 1,250 1,250 mcg PO QWEEK SUPPLEMENT 07/31/24 11/27/24 History mcg (50,000 unit) capsule gabapentin 100 mg capsule 200 mg PO TID NEUROPATHIC PAIN 07/31/24 12/03/24 History lorazepam 1 mg tablet (Ativan) 1 mg PO TID agitation 07/31/24 12/03/24 History metformin 1,000 mg tablet 1,000 mg PO BID DM 07/31/24 12/03/24 History sennosides 8.6 mg-docusate sodium 1 tab-cap PO DAILY CONSTIPATION 07/31/24 12/03/24 History 50 mg tablet (Colace 2-In-1) trazodone 50 mg tablet 100 mg PO QHS BIPOLAR 07/31/24 12/03/24 History vortioxetine 20 mg tablet 20 mg PO DAILY DEPRESSION 07/31/24 12/03/24 History (Trintellix) atorvastatin 10 mg tablet (Lipitor) 10 mg PO QHS 01/31/25 Unknown History lorazepam 1 mg tablet (Ativan) 1 mg PO Q8H PRN agitation 01/31/25 Unknown History albuterol sulfate 2.5 mg/3 mL 2.5 mg (3 mL) inhalation Q2H PRN 02/03/25 Unknown Rx (0.083 %) solution for nebulization PRN SHORTNESS OF BREATH #0 mL insulin glargine 100 unit/mL (3 10 unit (0.1 mL) subcut QPM #3 mL 02/03/25 Unknown Rx mL) subcutaneous pen (Lantus Solostar U-100 Insulin) ipratropium 0.5 mg-albuterol 3 mg 3 ml inhalation Q4HWA.RT #0 mL 02/03/25 Unknown Rx (2.5 mg base)/3 mL nebulization soln sacubitril 49 mg-valsartan 51 mg 1 tab PO BID 06/15/25 Unknown History tablet (Entresto) Allergy/AdvReac Type Severity Reaction Status Date / Time ibuprofen Allergy Rash Verified 06/15/25 18:14 Penicillins Allergy RASH Verified 06/15/25 18:14 Family History (Updated 06/15/25 @ 20:[address] Jamar Byrne MD) Other Heart disease Surgical History (Updated 06/15/25 @ 20:[address] Jamar Byrne MD) S/P herniorrhaphy Social History housing: detention Smoking Status: Current every day smoker tobacco type: cigarettes alcohol intake: never substance use type: does not use ROS Constitutional Constitutional: Denies chills, fatigue, fever(s) or malaise Eyes Eyes: Denies blurry vision ENT HEENT: Denies headache(s) or nasal discharge Cardiovascular Cardiovascular: Denies chest pain, dyspnea on exertion or syncope Respiratory/Chest Respiratory/Chest: Reports shortness of breath at rest; Denies cough or shortness of breath with exertion Gastrointestinal Gastrointestinal: Reports nausea and vomiting; Denies constipation or diarrhea Genitourinary Genitourinary: Denies dysuria Neurologic Neurologic: Denies focal weakness, numbness or tremor(s) Psychiatric Psychiatric: Denies anxiety or depression Patient's Goals Of Care . Unable to discuss care goals with the patient and or patient premium service representative at this time: Yes Vital Signs Vital Signs Vital Signs: 06/15/25 18:07 06/15/25 18:11 06/15/25 18:45 Temperature 98.7 F 98.7 F Temperature Source Oral Oral Pulse Rate 97 110 H Respiratory Rate 24 H 24 H Respiratory Effort Respiratory Depth Respiratory Pattern Blood Pressure 109/66 109/66 Blood Pressure Mean 80 80 Pulse Ox 94 95 Oxygen Delivery Method Room Air Nasal Cannula Nasal Cannula Oxygen Flow Rate (L/min) 4 3 06/15/25 19:30 06/15/25 19:44 06/15/25 20:48 Temperature 98.6 F 98.9 F Temperature Source Oral Pulse Rate 87 86 Respiratory Rate 16 21 H Respiratory Effort Normal Non-Labored Respiratory Depth Normal Respiratory Pattern Normal Blood Pressure 101/67 100/73 Blood Pressure Mean 78 82 Pulse Ox 95 93 Oxygen Delivery Method Nasal Cannula Nasal Cannula Oxygen Flow Rate (L/min) 3 3 Weight Weight: 237 lb 7.005 oz Body Mass Index (BMI) 37.1 Physical Exam Narrative General: Sleepy but awakens to voice, oriented, Cooperative, No apparent distress HEENT: Atraumatic, PERRLA, EOMI, Normocephalic Oral: Moist Mucosa Neck: Supple, No JVD Lungs: Diminished, Normal air movement, No rhonchi, No wheeze, rales Cardiovascular: Regular rate, Regular Rhythm, Normal S1, Normal S2, No murmurs Abdomen: Soft, Non Tender, Non-Distended, No Hepato-splenomegaly Extremities: No edema, Capillary Refill Less than 3 Seconds Skin: No rashes, No breakdown Musculoskeletal: No Tenderness to Palpation of Joints or Extremities Neurological: No focal neurological deficits, chronic neurological deficiencies on the right side from CVA Psych/Mental Status: Flat Results Lab / Micro Data 06/15/25 18:14 06/15/25 18:14 Labs: Laboratory Results - last 24 hr 06/15/25 18:14: WBC 5.0, RBC 4.58 L, Hgb 11.8 L, Hct 38.9 L, MCV 84.9, MCH 25.8 L, MCHC 30.3 L, RDW Std Deviation 47.6 H, RDW Coeff of Thomas 15.5 H, Plt Count 210, MPV 9.6, Immature Gran % (Auto) 0.200, Neut % (Auto) 62.4, Lymph % (Auto) 18.7 L, [place] % (Auto) 17.1 H, Eos % (Auto) 1.0, Baso % (Auto) 0.6, Absolute Neuts (auto) 3.1, Absolute Lymphs (auto) 0.93, Nucleated RBC % 0, Sodium 141, Potassium 4.2, Chloride 101, Carbon Dioxide 29.8, Anion Gap 10, BUN 13, Creatinine 1.14, Estim Creat Clear Calc 85.68, Est GFR (MDRD) Non-Af 76, BUN/Creatinine Ratio 11.6, Glucose 98, Calcium 9.5, Troponin T High Sens 16 D ABG Data ABG results: ABG 06/15/25 19:08 Specimen Type ART Sample Site L Brach pH 7.35 Bicarbonate Actual 32.9 H Total CO2 35 Base Excess 7 H O2 Saturation 87 L O2 % 4.0 ABG pCO2 59.6 H ABG pO2 58 L Joel Test Positive O2 Delivery Device Cannula Vent Mode Not entered Rhythm Strip Rhythm Strip: Sinus Tach Rate: 110 Ectopy: None Imaging Radiology Impression Chest X-Ray 06/15/25 19:05 IMPRESSION: No Acute Findings. Reading Location: [facility] Assessment & Plan Assessment/Plan (1) Aspiration pneumonitis: (2) Hypoxemia: PLAN: Plan 1. Acute hypoxic respiratory insufficiency due to aspiration/tobacco abuse ? Continue with Rocephin ? Continue with breathing treatments ? Wean oxygen as able ? He is at a facility that can do O2 therefore as long as he does not get significantly worse can plan for discharge in 24 to 48 hours ? He denies need for nicotine patch at this time 2. Essential HTN/HLD/history of CVA ? Continue with his home blood pressure medications ? Continue with his statin ? Will monitor make adjustments as necessary ? He has chronic right-sided deficits from his previous CVA 3. DM2 ? Accu-Cheks ? Insulin ? Will monitor make adjustments as necessary ? Hold his home oral medications 4. Schizophrenia ? Stable ? Continue with his home medications DVT: Lovenox Charges/Coding Visit Charges Inpatient E&M: 70327 Init Hosp L2
[2025-06-15 21:16] LABS: Troponin T High Sens 2 HR 17 ng/L (<=22)
[2025-06-15 22:08] VITALS: BMI 35.1
[2025-06-15 22:19] VITALS: BP 112/73; PULSE 86; RESP 18; TEMP 37.1; O2SAT 95
[2025-06-15 22:59] LABS: Troponin T High Sens 4 HR 18 ng/L (<=22)
[2025-06-15] MEDS: SACUBITRIL/VALSARTAN 49-51 MG TABLET 1 EACH PO (23:26)
[2025-06-15] MEDS: 0.9% Saline Lock 10 ML Syringe IV (23:29)
[2025-06-15 23:44] VITALS: BP 113/64; PULSE 91; RESP 20; TEMP 38.1; O2SAT 94
[2025-06-16] VITALS (16 sets, daily range): BP systolic 93–115; BP diastolic 56–70; PULSE 77–109; RESP 17–24; TEMP 37–39.2; O2SAT 92–98
[2025-06-16 07:11] LABS: Anion Gap 14 (5-15); BUN 12 mg/dL (4-19); BUN/Creat Ratio 9.3 RATIO (10-20); Calcium,Total 8.8 mg/dL (7.6-11.0); Carbon Dioxide 20.9 mmol/L (21.0-32.0); Chloride 98 mmol/L (98-108); Estimated Creatinine Clearance 70.82 ml/min (50-250); Glucose 133 mg/dL (70-99); Potassium 4.4 mmol/L (3.3-5.1)
[2025-06-16 07:24] LABS: Hematocrit 36.9 % (40-54); Hemoglobin 11.1 g/dL (13.0-16.5); Immature Granulocytes Count 0.010 X10^3/uL (0.0-0.0); Mean Corp Hgb Conc 30.1 g/dL (32-36); Mean Corpuscular Volume 85.8 fL (80-94); Mean Platelet Vol. 9.1 fl (6.2-12.0); NRBC Flagged by Analyzer 0 % (0-5); Platelet Count 201 K/mm3 (150-450); RBC Distribution Width CV 15.5 % (11.6-14.6); RBC Distribution Width SD 48.6 fl (35.1-43.9); Red Blood Count 4.30 M/mm3 (4.6-6.2); White Blood Count 5.4 K/mm3 (4.4-11.0)
--- NOTE | 2025-06-16 07:33 | PN.HOSP_ITS ---
Subjective Subjective Patient is a 55-year-old gentleman who presented to the emergency department with shortness of breath which was preceded by an episode of vomiting. Patient was found to be hypoxic with oxygen saturation 84% on room air. Was placed on 3 L with oxygen saturation rising to 90s. Chest x-ray did not show any acute abnormality Objective Data Objective Data Vital Signs: Vital Signs Temp Pulse Resp BP Pulse Ox O2 Del Method O2 Flow Rate 102.1 F H 109 H 22 H 93/56 L 93 Nasal Cannula 3 06/16/25 07:23 06/16/25 07:23 06/16/25 07:23 06/16/25 07:23 06/16/25 07:23 06/16/25 07:23 06/16/25 07:23 Oxygen Flow Rate (L/min) 3 Oxygen Delivery Method Nasal Cannula Weight: 101.8 kg Body Mass Index (BMI) 35.1 Intake & Output: Intake and Output for Last 24 Hours 06/14/25 06/15/25 06/16/25 23:59 23:59 23:59 Intake Total 50 / 550 500 / 500 Balance 50 / 550 500 / 500 Lab / Micro Data 06/16/25 07:18 06/16/25 06:10 Labs: Laboratory Results - last 24 hr 06/15/25 18:14: WBC 5.0, RBC 4.58 L, Hgb 11.8 L, Hct 38.9 L, MCV 84.9, MCH 25.8 L, MCHC 30.3 L, RDW Std Deviation 47.6 H, RDW Coeff of Thomas 15.5 H, Plt Count 210, MPV 9.6, Immature Gran % (Auto) 0.200, Neut % (Auto) 62.4, Lymph % (Auto) 18.7 L, Lewis % (Auto) 17.1 H, Eos % (Auto) 1.0, Baso % (Auto) 0.6, Absolute Neuts (auto) 3.1, Absolute Lymphs (auto) 0.93, Nucleated RBC % 0, Sodium 141, Potassium 4.2, Chloride 101, Carbon Dioxide 29.8, Anion Gap 10, BUN 13, Creatinine 1.14, Estim Creat Clear Calc 85.68, Est GFR (MDRD) Non-Af 76, BUN/Creatinine Ratio 11.6, Glucose 98, Calcium 9.5, Troponin T High Sens 16 D 06/15/25 20:50: Troponin T Hi Sens 2 Hr 17 06/15/25 20:56: POC Glucose 91 06/15/25 22:23: Troponin T Hi Sens 4Hr 18 06/15/25 22:46: POC Glucose 88 06/16/25 06:10: WBC Cancelled, Corrected WBC Cancelled, RBC Cancelled, Hgb Cancelled, Hct Cancelled, MCV Cancelled, MCH Cancelled, MCHC Cancelled, RDW Std Deviation Cancelled, RDW Coeff of Thomas Cancelled, Plt Count Cancelled, MPV Cancelled, Immature Gran % (Auto) Cancelled, Neut % (Auto) Cancelled, Lymph % (Auto) Cancelled, Lewis % (Auto) Cancelled, Eos % (Auto) Cancelled, Baso % (Auto) Cancelled, Absolute Neuts (auto) Cancelled, Absolute Lymphs (auto) Cancelled, Total Counted Cancelled, Neutrophils % (Manual) Cancelled, Band Neutrophils % Cancelled, Lymphocytes % (Manual) Cancelled, Monocytes % (Manual) Cancelled, Eosinophils % (Manual) Cancelled, Basophils % (Manual) Cancelled, Metamyelocytes % Cancelled, Myelocytes % Cancelled, Promyelocytes % Cancelled, Blast Cells % Cancelled, Plasma Cell % (Manual) Cancelled, Other Cells % Cancelled, Nucleated RBC % Cancelled, Nucleated RBCs/100 WBC Cancelled, Differential Comment Cancelled, Diff Path Review Cancelled, Hypersegmented Neuts Cancelled, Atypical Lymphocytes Cancelled, Reactive Lymphocytes Cancelled, Smudge Cells Cancelled, Toxic Granulation Cancelled, Toxic Vacuolation Cancelled, Dohle Bodies Cancelled, [place] Rods Cancelled, Platelet Estimate Cancelled, Plt Morphology Comment Cancelled, RBC Morphology Cancelled 06/16/25 06:10: RBC Morphology Cancelled, Polychromasia Cancelled, Hypochromasia Cancelled, Basophilic Stippling Cancelled, Anisocytosis Cancelled, Microcytosis Cancelled, Macrocytosis Cancelled, Spherocytes Cancelled, Sickle Cells Cancelled, Target Cells Cancelled, Tear Drop Cells Cancelled, Ovalocytes Cancelled, Stomatocytes Cancelled, [place] Bodies Cancelled, Art Cells Cancelled, Bite Cells Cancelled, Crenated Cell Cancelled, Acanthocytes (Spur) Cancelled, Rouleaux Cancelled, Schistocytes Cancelled, Sodium 133, Potassium 4.4, Chloride 98, Carbon Dioxide 20.9 L, Anion Gap 14, BUN 12, Creatinine 1.34 H , Estim Creat Clear Calc 70.82, Est GFR (MDRD) Non-Af 63, BUN/Creatinine Ratio 9.3 L, Glucose 133 H, Calcium 8.8 06/16/25 06:39: POC Glucose 128 H 06/16/25 07:18: WBC 5.4, RBC 4.30 L, Hgb 11.1 L, Hct 36.9 L, MCV 85.8, MCH 25.8 L, MCHC 30.1 L, RDW Std Deviation 48.6 H, RDW Coeff of Thomas 15.5 H, Plt Count 201, MPV 9.1, Immature Gran % (Auto) 0.200, Neut % (Auto) 58.5, Lymph % (Auto) 19.6, Lewis % (Auto) 20.7 H, Eos % (Auto) 0.4, Baso % (Auto) 0.6, Absolute Neuts (auto) 3.1, Absolute Lymphs (auto) 1.05, Nucleated RBC % 0 ABG Data ABG results: ABG 06/15/25 19:08 Specimen Type ART Sample Site L Brach pH 7.35 Bicarbonate Actual 32.9 H Total CO2 35 Base Excess 7 H O2 Saturation 87 L O2 % 4.0 ABG pCO2 59.6 H ABG pO2 58 L Joel Test Positive O2 Delivery Device Cannula Vent Mode Not entered Radiography Diagnostic Testing: Radiology Impression Chest X-Ray 06/15/25 19:05 IMPRESSION: No Acute Findings. Reading Location: [facility] Rhythm Strip Rhythm Strip: Sinus Tach Rate: 110 Ectopy: None Physical Exam Narrative GENERAL: cooperative HEENT: Atraumatic; normocephalic EYES; Anicteric, Normal Conjunctiva NECK; supple, normal thyroid, RESPIRATORY: Diminished to auscultation CARDIOVASCULAR: Regular S1 S2, GI: soft, normoactive bowel sounds, : No Renal angle tenderness; EXTREMITIES: No edema, no clubbing, MUSCULOSKELETAL: Contractures involving the right hand NEURO: Awake; right-sided hemiparesis SKIN: No Rash PSYCH; Flat affect Assessment & Plan Assessment/Plan (1) Aspiration pneumonitis: (2) Hypoxemia: PLAN: Plan Patient is a 55-year-old gentleman who presented to the emergency department with shortness of breath which was preceded by an episode of vomiting. Patient was found to be hypoxic with oxygen saturation 84% on room air. Was placed on 3 L with oxygen saturation rising to 90s. Chest x-ray did not show any acute abnormality 1. Acute hypoxic respiratory insufficiency ? Secondary to aspiration pneumonitis. Admitted to a monitored bed imaging studies did not show any abnormality.Patient initial viral respiratory assay including COVID also came back negative. Admitted to regular nursing floor for symptom management 2. Acute kidney injury ? Patient has known baseline creatinine of 0.93 creatinine as of 06/16/2025 was 1.34 patient started on IV hydration 3. Dyslipidemia ?Patient is on statin therapy, continued at home dose 4. Diabetes mellitus type II -patient's oral hypoglycemics held. Placed on Accu-Cheks a.c. and at bedtime and covered with sliding scale insulin 5. Class II obesity with BMI of 35,2 ? Complicating care 6. Tobacco dependence ? Counseled on cessation, offered nicotine patch for tobacco cravings 7. Mood disorder ? With history of anxiety depression and bipolar disorder did continue patient psychotropic medications 8. 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 Chronic congestive heart failure?unspecified type ? Patient had declined echo evaluation during the previous admission 10. DVT prophylaxis ? Subcu Lovenox Time spent in the patient's overall evaluation,decision-making process, review of diagnostic data, adjustment of management, discussion with other providers, nursing nursing and ancillary staff involved in patient's care documentation, 40 Minutes Charges/Coding Visit Charges Inpatient E&M: 18793 Subs Hosp L2
[2025-06-16] MEDS: Aspirin E.C. 81 MG Tablet PO (08:39)
--- NOTE | 2025-06-16 09:16 | ECHOCS_ITS ---
Reason For Study Reason For Study: DYSPNEA Procedure This was a 2D Doppler, Color Flow transthoracic echocardiogram. The study was technically difficult. Definity deferred due to no apical windows. Exam performed portable in patient room. Left Ventricle Normal size and thickness. Left ventricular systolic function is normal. The LV ejection fraction is 55 %. No evidence for diastolic dysfunction. No regional wall motion abnormalities noted. Right Ventricle There is mild hypertrophy of the RV free wall. Normal systolic function. Atria The left and right atria are normal. Mitral Valve The mitral valve is structurally normal. No prolapse or stenosis seen. Trivial mitral valve insufficiency. Tricuspid Valve Normal tricuspid valve. Unable to estimate RV systolic pressure due to inadequate jet, pulmonary artery pressure probably normal. Aortic Valve Trisinus/trileaflet aortic valve. No aortic valve insufficiency. Pulmonic Valve The pulmonic valve is not well visualized. Trivial eccentric pulmonic valve insufficiency. Great Vessels Normal inferior vena cava. Pericardium/Pleural Trivial pericardial effusion. MMode/2D Measurements & Calculations LVIDd: 3.9 cm IVSd: 0.99 cm LA dimension(2D): 2.6 cm LVIDs: 2.5 cm LVPWd: 1.3 cm FS: 35.7 % Time Measurements MV dec time: 0.19 sec Doppler Measurements & Calculations MV E max stef: 68.6 cm/sec Lat Peak E' Stef: 9.7 cm/sec Med Peak E' Stef: 11.4 cm/sec MV A max stef: 59.8 cm/sec E/E' lat: 7.0 E/E' med: 6.0 MV E/A: 1.1 MV V2 max: 81.7 cm/sec Ao V2 max: 108.7 cm/sec MV max P.7 mmHg MV dec slope: 372.6 cm/sec2 Ao max P.7 mmHg MV V2 mean: 57.4 cm/sec Ao V2 mean: 70.1 cm/sec MV mean P.5 mmHg Ao mean P.3 mmHg MV V2 VTI: 18.8 cm Ao V2 VTI: 16.5 cm AV (velocity ratio): 0.78 LV V1 max: 85.9 cm/sec PA V2 max: 102.6 cm/sec LV V1 max P.0 mmHg LV V1 mean P.5 mmHg LV V1 mean: 57.9 cm/sec LV V1 VTI: 12.9 cm ECHO/Echo Complete W/ Contrast Interpretation Summary No regional wall motion abnormalities noted. LVEF is 50-55% There is mild hypertrophy of the RV free wall Normal RV systolic function. Trivial pericardial effusion. Ordering Physician: Fredo Alberts Referring Physician: MAME HUANG Performed By: Karla Felipe RCS
[2025-06-16] MEDS: VORTIOXETINE HYDROBROMIDE 10 MG TABLET 20 MG PO (11:31)
[2025-06-16] MEDS: SACUBITRIL/VALSARTAN 49-51 MG TABLET 1 EACH PO ×2 (11:31→22:59)
[2025-06-16] MEDS: Senna/Docusate Sodium 1 Tablet PO (11:37)
[2025-06-16] MEDS: 0.9% Saline Lock 10 ML Syringe IV (11:38)
[2025-06-16] MEDS: levoFLOXacin IV 750 MG/150 ML BAG 100 MG IV (11:39)
--- NOTE | 2025-06-16 13:48 | CASEMGMT ---
Social Work Pt is admitted from [facility]. Phone call to pt sister/Legal Guardian Ileana and she confirms plan to return to [facility] at time of discharge. Phone call to [facility] and nurse confirms pt can return when medically ready. Clinicals faxed to [facility]. DC readiness checklist entered in [employer] in the event pt is ready for dc over the weekend. Tranport form on pt chart. Plan: Return to [facility], when medically ready OTONIEL Yadav
--- NOTE | 2025-06-16 18:47 | NURSING ---
1839 Dr Alberts notified of patient temp and vitals. tylenol given per MAR hussein Coles RN
[2025-06-17] VITALS (7 sets, daily range): BP systolic 104–113; BP diastolic 55–67; PULSE 76–87; RESP 16–22; TEMP 36.7–37.4; O2SAT 92–96
--- NOTE | 2025-06-17 08:05 | PCM.PN.HOSP ---
Subjective Subjective Patient viral respiratory panel came back positive Positive for PARAINFLUENZA 2 Objective Data Objective Data Vital Signs: Vital Signs Temp Pulse Resp BP Pulse Ox O2 Del Method O2 Flow Rate 99.4 F H 76 19 H 107/58 L 92 Nasal Cannula 3 06/17/25 02:36 06/17/25 07:41 06/17/25 07:41 06/17/25 02:36 06/17/25 07:41 06/17/25 07:41 06/17/25 07:41 Oxygen Flow Rate (L/min) 3 Oxygen Delivery Method Nasal Cannula Weight: 101.8 kg Body Mass Index (BMI) 35.1 Intake & Output: Intake and Output for Last 24 Hours 06/15/25 06/16/25 06/17/25 23:59 23:59 23:59 Intake Total 50 / 550 1550 / 1550 Output Total 1100 / 1100 300 / 300 Balance 50 / 550 450 / 450 -300 / -300 Lab / Micro Data 06/16/25 07:18 06/16/25 06:10 Labs: Laboratory Results - last 24 hr 06/16/25 12:51: POC Glucose 98 06/16/25 17:00: POC Glucose 106 06/16/25 23:05: POC Glucose 136 H 06/17/25 06:48: POC Glucose 106 Micro: Microbiology 06/16/25 13:20 Mucosa - Nasopharyngeal Respiratory Panel (PCR) - Final Parainfluenza 2 Rhythm Strip Rhythm Strip: Sinus Tach Rate: 110 Ectopy: None Physical Exam Narrative GENERAL: cooperative HEENT: Atraumatic; normocephalic EYES; Anicteric, Normal Conjunctiva NECK; supple, normal thyroid, RESPIRATORY: Diminished to auscultation CARDIOVASCULAR: Regular S1 S2, GI: soft, normoactive bowel sounds, : No Renal angle tenderness; EXTREMITIES: No edema, no clubbing, MUSCULOSKELETAL: Contractures involving the right hand NEURO: Awake; right-sided hemiparesis SKIN: No Rash PSYCH; Flat affect Assessment & Plan Assessment/Plan (1) Aspiration pneumonitis: (2) Hypoxemia: PLAN: Plan Patient is a 55-year-old gentleman who presented to the emergency department with shortness of breath which was preceded by an episode of vomiting. Patient was found to be hypoxic with oxygen saturation 84% on room air. Was placed on 3 L with oxygen saturation rising to 90s. Chest x-ray did not show any acute abnormality 1. Acute hypoxic respiratory insufficiency ? Secondary to aspiration pneumonitis. Admitted to a monitored bed imaging studies did not show any abnormality.Patient initial viral respiratory assay including COVID also came back negative. Admitted to regular nursing floor for symptom management ? 06/17/2025; patient viral respiratory panel came back positive for parainfluenza 2 virus. Will continue current treatment as above in addition to symptom management 2. Acute kidney injury ? Patient has known baseline creatinine of 0.93 creatinine as of 06/16/2025 was 1.34 patient started on IV hydration 3. Dyslipidemia ?Patient is on statin therapy, continued at home dose 4. Diabetes mellitus type II -patient's oral hypoglycemics held. Placed on Accu-Cheks a.c. and at bedtime and covered with sliding scale insulin 5. Class II obesity with BMI of 35,2 ? Complicating care 6. Tobacco dependence ? Counseled on cessation, offered nicotine patch for tobacco cravings 7. Mood disorder ? With history of anxiety depression and bipolar disorder did continue patient psychotropic medications 8. 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 Chronic congestive heart failure?unspecified type ? Patient had declined echo evaluation during the previous admission 10. DVT prophylaxis ? Subcu Lovenox Time spent in the patient's overall evaluation,decision-making process, review of diagnostic data, adjustment of management, discussion with other providers, nursing nursing and ancillary staff involved in patient's care documentation, 38 Minutes Charges/Coding Visit Charges Inpatient E&M: 51099 Subs Hosp L2
[2025-06-17] MEDS: Aspirin E.C. 81 MG Tablet PO (08:09)
[2025-06-17] MEDS: SACUBITRIL/VALSARTAN 49-51 MG TABLET 1 EACH PO ×2 (08:11→22:58)
[2025-06-17] MEDS: VORTIOXETINE HYDROBROMIDE 10 MG TABLET 20 MG PO (08:13)
[2025-06-17] MEDS: Senna/Docusate Sodium 1 Tablet PO (08:18)
[2025-06-17] MEDS: 0.9% Saline Lock 10 ML Syringe IV ×2 (10:11→23:04)
[2025-06-17] MEDS: levoFLOXacin IV 750 MG/150 ML BAG 100 MG IV (10:12)
[2025-06-17 13:21] LABS: Hematocrit 38.6 % (40-54); Hemoglobin 11.7 g/dL (13.0-16.5); Immature Granulocytes Count 0.010 X10^3/uL (0.0-0.0); Mean Corp Hgb Conc 30.3 g/dL (32-36); Mean Corpuscular Volume 85.2 fL (80-94); Mean Platelet Vol. 9.3 fl (6.2-12.0); NRBC Flagged by Analyzer 0 % (0-5); Platelet Count 199 K/mm3 (150-450); RBC Distribution Width CV 15.1 % (11.6-14.6); RBC Distribution Width SD 47.0 fl (35.1-43.9); Red Blood Count 4.53 M/mm3 (4.6-6.2); White Blood Count 4.5 K/mm3 (4.4-11.0)
[2025-06-17 13:42] LABS: Anion Gap 10 (5-15); BUN 13 mg/dL (4-19); BUN/Creat Ratio 10.1 RATIO (10-20); Calcium,Total 9.1 mg/dL (7.6-11.0); Carbon Dioxide 29.4 mmol/L (21.0-32.0); Chloride 97 mmol/L (98-108); Estimated Creatinine Clearance 75.91 ml/min (50-250); Glucose 129 mg/dL (70-99); Magnesium 1.6 mg/dL (1.5-2.2); Potassium 3.9 mmol/L (3.3-5.1)
[2025-06-18 04:45] VITALS: BP 107/58; PULSE 82; RESP 20; TEMP 37.3; O2SAT 94
[2025-06-18 06:21] VITALS: BP 113/64; PULSE 76; RESP 19; TEMP 36.7; O2SAT 95
[2025-06-18 06:52] VITALS: PULSE 82; RESP 16; O2SAT 94
--- NOTE | 2025-06-18 07:06 | PN.HOSP_ITS ---
Objective Data Objective Data Vital Signs: Vital Signs Temp Pulse Resp BP Pulse Ox O2 Del Method O2 Flow Rate 98.1 F 82 16 113/64 94 Nasal Cannula 2 06/18/25 06:21 06/18/25 06:52 06/18/25 06:52 06/18/25 06:21 06/18/25 06:52 06/18/25 06:52 06/18/25 06:52 Oxygen Flow Rate (L/min) 2 Oxygen Delivery Method Nasal Cannula Weight: 101.8 kg Body Mass Index (BMI) 35.1 Intake & Output: Intake and Output for Last 24 Hours 06/16/25 06/17/25 06/18/25 23:59 23:59 23:59 Intake Total 1550 / 1550 150 / 150 Output Total 1100 / 1100 1200 / 1700 900 / 900 Balance 450 / 450 -1050 / -1550 -900 / -900 Lab / Micro Data 06/17/25 13:15 06/17/25 13:15 Labs: Laboratory Results - last 24 hr 06/17/25 06:48: POC Glucose 106 06/17/25 11:32: POC Glucose 136 H 06/17/25 13:15: WBC 4.5, RBC 4.53 L, Hgb 11.7 L, Hct 38.6 L, MCV 85.2, MCH 25.8 L, MCHC 30.3 L, RDW Std Deviation 47.0 H, RDW Coeff of Thomas 15.1 H, Plt Count 199, MPV 9.3, Immature Gran % (Auto) 0.200, Neut % (Auto) 50.1, Lymph % (Auto) 31.8, [place] % (Auto) 17.5 H, Eos % (Auto) 0.2, Baso % (Auto) 0.2, Absolute Neuts (auto) 2.2, Absolute Lymphs (auto) 1.42, Nucleated RBC % 0, Sodium 136, Potassium 3.9, Chloride 97 L, Carbon Dioxide 29.4, Anion Gap 10, BUN 13, C reatinine 1.25 H, Estim Creat Clear Calc 75.91, Est GFR (MDRD) Non-Af 68, BUN/Creatinine Ratio 10.1, Glucose 129 H, Calcium 9.1, Phosphorus 4.0, Magnesium 1.6 06/17/25 15:53: POC Glucose 101 06/17/25 23:00: POC Glucose 168 H 06/18/25 06:30: POC Glucose 98 Micro: Microbiology 06/16/25 13:20 Mucosa - Nasopharyngeal Respiratory Panel (PCR) - Final Parainfluenza 2 Radiography Diagnostic Testing: Radiology Impression Echocardiogram 06/16/25 09:16 Interpretation Summary No regional wall motion abnormalities noted. LVEF is 50-55% There is mild hypertrophy of the RV free wall Normal RV systolic function. Trivial pericardial effusion. Ordering Physician: Fredo Alberts Referring Physician: MAME HUANG Performed By: Karla Felipe RCS Rhythm Strip Rhythm Strip: Sinus Tach Rate: 110 Ectopy: None Physical Exam Narrative GENERAL: cooperative HEENT: Atraumatic; normocephalic EYES; Anicteric, Normal Conjunctiva NECK; supple, normal thyroid, RESPIRATORY: Diminished to auscultation CARDIOVASCULAR: Regular S1 S2, GI: soft, normoactive bowel sounds, : No Renal angle tenderness; EXTREMITIES: No edema, no clubbing, MUSCULOSKELETAL: Contractures involving the right hand NEURO: Awake; right-sided hemiparesis SKIN: No Rash PSYCH; Flat affect Assessment & Plan Assessment/Plan (1) Aspiration pneumonitis: (2) Hypoxemia: PLAN: Plan Patient is a 55-year-old gentleman who presented to the emergency department with shortness of breath which was preceded by an episode of vomiting. Patient was found to be hypoxic with oxygen saturation 84% on room air. Was placed on 3 L with oxygen saturation rising to 90s. Chest x-ray did not show any acute abnormality 1. Acute hypoxic respiratory insufficiency ? Secondary to aspiration pneumonitis. Admitted to a monitored bed imaging studies did not show any abnormality.Patient initial viral respiratory assay including COVID also came back negative. Admitted to regular nursing floor for symptom management ? 06/17/2025; patient viral respiratory panel came back positive for parainfluenza 2 virus. Will continue current treatment as above in addition to symptom management 2. Acute kidney injury ? Patient has known baseline creatinine of 0.93 creatinine as of 06/16/2025 was 1.34 patient started on IV hydration 3. Dyslipidemia ?Patient is on statin therapy, continued at home dose 4. Diabetes mellitus type II -patient's oral hypoglycemics held. Placed on Accu-Cheks a.c. and at bedtime and covered with sliding scale insulin 5. Class II obesity with BMI of 35,2 ? Complicating care 6. Tobacco dependence ? Counseled on cessation, offered nicotine patch for tobacco cravings 7. Mood disorder ? With history of anxiety depression and bipolar disorder did continue patient psychotropic medications 8. 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 Acute on chronic congestive heart failure?with preserved ejection fraction ? Patient had declined echo evaluation during the previous admission ? 2D echo obtained during patient hospital stay did show No regional wall motion abnormalities noted. LVEF is 50-55% There is mild hypertrophy of the RV free wall Normal RV systolic function. Trivial pericardial effusion ? Patient responded to diuretic 10. DVT prophylaxis ? Subcu Lovenox Time spent in the patient's overall evaluation,decision-making process, review of diagnostic data, adjustment of management, discussion with other providers, nursing nursing and ancillary staff involved in patient's care documentation, 38 Minutes
--- NOTE | 2025-06-18 08:19 | DS.PCM_ITS ---
Providers Date of Admission: 06/15/25 Date of Discharge: 06/18/25 Primary Care Physician: Dr. Kamar Bright MD Reason For Visit: ASPIRATION WITH HYPOXIA Diagnosis Discharge Diagnosis (1) Aspiration pneumonitis: Status: Acute Code(s): J69.0 - Pneumonitis due to inhalation of food and vomit (2) Hypoxemia: Status: Acute Code(s): R09.02 - Hypoxemia Plan Patient is a 55-year-old gentleman who presented to the emergency department with shortness of breath which was preceded by an episode of vomiting. Patient was found to be hypoxic with oxygen saturation 84% on room air. Was placed on 3 L with oxygen saturation rising to 90s. Chest x-ray did not show any acute abnormality 1. Acute hypoxic respiratory insufficiency secondary to parainfluenza virus infection ? Secondary to aspiration pneumonitis. Admitted to a monitored bed imaging studies did not show any abnormality.Patient initial viral respiratory assay including COVID also came back negative. Admitted to regular nursing floor for symptom management ? 06/17/2025; patient viral respiratory panel came back positive for parainfluenza 2 virus. Will continue current treatment as above in addition to symptom management 2. Acute kidney injury ? Patient has known baseline creatinine of 0.93 creatinine as of 06/16/2025 was 1.34 patient started on IV hydration 3. Dyslipidemia ?Patient is on statin therapy, continued at home dose 4. Diabetes mellitus type II -patient's oral hypoglycemics held. Placed on Accu-Cheks a.c. and at bedtime and covered with sliding scale insulin 5. Class II obesity with BMI of 35,2 ? Complicating care 6. Tobacco dependence ? Counseled on cessation, offered nicotine patch for tobacco cravings 7. Mood disorder ? With history of anxiety depression and bipolar disorder did continue patient psychotropic medications 8. 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 Acute on chronic congestive heart failure?with preserved ejection fraction ? Patient had declined echo evaluation during the previous admission ? 2D echo obtained during patient hospital stay did show No regional wall motion abnormalities noted. LVEF is 50-55% There is mild hypertrophy of the RV free wall Normal RV systolic function. Trivial pericardial effusion ? Patient responded to diuretic 10. DVT prophylaxis ? Subcu Lovenox Time spent in the patient's overall evaluation,decision-making process, review of diagnostic data, adjustment of management, discussion with other providers, nursing nursing and ancillary staff involved in patient's care documentation, 38 Minutes Medications at Discharge Home Medications acetaminophen 325 mg tablet (Aminofen) 650 mg PO Q4H PRN fever or pain 07/31/24 aripiprazole 15 mg tablet (Abilify) 15 mg PO DAILY SCHIZOPHRENIA 07/31/24 aspirin 81 mg tablet,delayed release (Adult Low Dose Aspirin) 81 mg PO DAILY HTN 07/31/24 buspirone 10 mg tablet 10 mg PO TID BIPOLAR 07/31/24 calcium carbonate ([place] Heartburn Chew) 600 mg PO Q6H PRN heartburn 07/31/24 cholecalciferol (vitamin D3) 1,250 mcg (50,000 unit) capsule 1,250 mcg PO QWEEK SUPPLEMENT 07/31/24 gabapentin 100 mg capsule 200 mg PO TID NEUROPATHIC PAIN 07/31/24 metformin 1,000 mg tablet 1,000 mg PO BID DM 07/31/24 sennosides 8.6 mg-docusate sodium 50 mg tablet (Colace 2-In-1) 1 tab-cap PO DAILY CONSTIPATION 07/31/24 trazodone 50 mg tablet 100 mg PO QHS BIPOLAR 07/31/24 vortioxetine 20 mg tablet (Trintellix) 20 mg PO DAILY DEPRESSION 07/31/24 atorvastatin 10 mg tablet (Lipitor) 10 mg PO QHS hld 01/31/25 lorazepam 1 mg tablet (Ativan) 1 mg PO Q8H PRN agitation 01/31/25 albuterol sulfate 2.5 mg/3 mL (0.083 %) solution for nebulization 2.5 mg (3 mL) inhalation Q2H PRN PRN SHORTNESS OF BREATH #0 mL 02/03/25 insulin glargine 100 unit/mL (3 mL) subcutaneous pen (Lantus Solostar U-100 Insulin) 10 unit (0.1 mL) subcut QPM #3 mL 02/03/25 ipratropium 0.5 mg-albuterol 3 mg (2.5 mg base)/3 mL nebulization soln 3 ml inhalation Q4HWA.RT #0 mL 02/03/25 sacubitril 49 mg-valsartan 51 mg tablet (Entresto) 1 tab PO BID chf 06/15/25 doxycycline hyclate 100 mg capsule 100 mg PO BID #14 caps 06/18/25 furosemide 40 mg tablet (Lasix) 20 mg (1/2 x 40 mg) PO DAILY #30 tabs 06/18/25 guaifenesin 600 mg tablet, extended release 12 hr (Mucinex) 1,200 mg (2 x 600 mg) PO BID #30 tabs 06/18/25 lorazepam 1 mg tablet (Ativan) 1 mg PO TID agitation #3 tabs 06/18/25 prednisone 20 mg tablet 20 mg PO BID #14 tabs 06/18/25 Hospital Course Procedures 2-D Echocardiogram Weight / BMI Weight Weight: 101.8 kg Body Mass Index (BMI) 35.1 ABG / Lab / Microbiology Data 06/17/25 13:15 06/17/25 13:15 Laboratory: Laboratory Results - last 24 hr 06/17/25 11:32: POC Glucose 136 H 06/17/25 13:15: WBC 4.5, RBC 4.53 L, Hgb 11.7 L, Hct 38.6 L, MCV 85.2, MCH 25.8 L, MCHC 30.3 L, RDW Std Deviation 47.0 H, RDW Coeff of [place] 15.1 H, Plt Count 199, MPV 9.3, Immature Gran % (Auto) 0.200, Neut % (Auto) 50.1, Lymph % (Auto) 31.8, [place] % (Auto) 17.5 H, Eos % (Auto) 0.2, Baso % (Auto) 0.2, Absolute Neuts (auto) 2.2, Absolute Lymphs (auto) 1.42, Nucleated RBC % 0, Sodium 136, Potassium 3.9, Chloride 97 L, Carbon Dioxide 29.4, Anion Gap 10, BUN 13, C reatinine 1.25 H, Estim Creat Clear Calc 75.91, Est GFR (MDRD) Non-Af 68, BUN/Creatinine Ratio 10.1, Glucose 129 H, Calcium 9.1, Phosphorus 4.0, Magnesium 1.6 06/17/25 15:53: POC Glucose 101 06/17/25 23:00: POC Glucose 168 H 06/18/25 06:30: POC Glucose 98 Microbiology: Microbiology 06/16/25 13:20 Mucosa - Nasopharyngeal Respiratory Panel (PCR) - Final Parainfluenza 2 Radiography Diagnostic Testing: Radiology Impression Echocardiogram 06/16/25 09:16 Interpretation Summary No regional wall motion abnormalities noted. LVEF is 50-55% There is mild hypertrophy of the RV free wall Normal RV systolic function. Trivial pericardial effusion. Ordering Physician: Fredo Alberts Referring Physician: KAMAR BRIGHT Performed By: Karla Felipe RCS D/C Instructions DC O2, CPAP, BIPAP Needs Home O2 Discharge instructions: Yes Type of respiratory needs?: Oxygen Oxygen frequency: Continuous Continuous oxygen liters per minute: 2 DC home with Oxygen: Yes Home O2 Review: I have reviewed the oxygen testing, and the patient qualifies for home oxygen equipment and portability. The patient is mobile in the home and the community. Patient's Goals Of Care - F/U Goals Reviewed Goals of care reviewed with patient: NA-No significant change in clinical Status /major procedure scheduled Meaningful Use Info Meaningful Use Meaningful Use Diagnoses (Choose all that apply): CHF CHF NAS/ARB ordered at discharge?: Yes Documented LVEF (%): 55 Discharge Plan Admission Admit Date/Time: 06/15/25 20:40 Attending Provider: Fredo Alberts Primary Care Provider: Kamar Bright Consulting Providers: Jamar Byrne Discharge Orders/Prescriptions Prescriptions: New furosemide [Lasix] 40 mg tablet 20 mg PO DAILY Qty: 30 0RF doxycycline hyclate 100 mg capsule 100 mg PO BID Qty: 14 0RF prednisone 20 mg tablet 20 mg PO BID Qty: 14 0RF guaifenesin [Mucinex] 600 mg tablet extended release 12hr 1,200 mg PO BID Qty: 30 0RF Continued atorvastatin [Lipitor] 10 mg tablet 10 mg PO QHS lorazepam [Ativan] 1 mg tablet 1 mg PO Q8H PRN (Reason: agitation) ipratropium-albuterol 0.5 mg-3 mg(2.5 mg base)/3 mL Solution For Nebulization 3 ml inhalation Q4HWA.RT Qty: 0 0RF albuterol sulfate 2.5 mg /3 mL (0.083 %) Solution For Nebulization 2.5 mg inhalation Q2H PRN PRN (Reason: SHORTNESS OF BREATH ) Qty: 0 0RF insulin glargine [Lantus Solostar U-100 Insulin] 100 unit/mL (3 mL) insulin pen 10 unit subcut QPM Qty: 3 0RF Trintellix 20 mg tablet 20 mg PO DAILY sennosides-docusate sodium [Colace 2-In-1] 8.6-50 mg tablet 1 tab-cap PO DAILY aripiprazole [Abilify] 15 mg tablet 15 mg PO DAILY aspirin [Adult Low Dose Aspirin] 81 mg tablet,delayed release (DR/EC) 81 mg PO DAILY buspirone 10 mg tablet 10 mg PO TID gabapentin 100 mg capsule 200 mg PO TID trazodone 50 mg tablet 100 mg PO QHS cholecalciferol (vitamin D3) 1,250 mcg (50,000 unit) capsule 1,250 mcg PO QWEEK Rx Instructions: QMONDAY metformin 1,000 mg tablet 1,000 mg PO BID [place] Heartburn Chew 300 mg (750 mg) tablet,chewable 600 mg PO Q6H PRN (Reason: heartburn) acetaminophen [Aminofen] 325 mg tablet 650 mg PO Q4H PRN (Reason: fever or pain) sacubitril-valsartan [Entresto] 49-51 mg tablet 1 tab PO BID lorazepam [Ativan] 1 mg tablet 1 mg PO TID Qty: 3 0RF Referrals / Follow Up: Kamar Bright MD [Primary Care Provider, Medical] - Within 2 Weeks Disposition Disposition (needs filled in before D/C Order can be placed): NonSkilled NH/Intermed Care Charges/Coding Visit Charges Inpatient E&M: 53979 Disch Hosp >30min
--- NOTE | 2025-06-18 08:26 | PCM.TXEXTCAR ---
Diet Diet Order/Speech Therapy: INPATIENT Hospital Diet / Speech Therapy Order(s) 06/15/25 22:04 Diet: Consistent Carb - Calorie Controlled Food consistency:: Regular Liquid Consistency:: Regular/Thin Dietary Modifications:: Cardiac / Heart Healthy How many daily calories?: 2000 calorie Routine Orders/Code Status Code Status: DNRCC-A DC O2, CPAP, BIPAP needs Home O2 Discharge instructions: Yes Type of respiratory needs?: Oxygen Oxygen frequency: Continuous Continuous oxygen liters per minute: 2 Therapies Physical Therapy: Eval and Treat Occupational Therapy: Eval and Treat Problem/Diagnosis (1) Aspiration pneumonitis: Status: Acute Code(s): J69.0 - Pneumonitis due to inhalation of food and vomit (2) Hypoxemia: Status: Acute Code(s): R09.02 - Hypoxemia Plan Patient is a 55-year-old gentleman who presented to the emergency department with shortness of breath which was preceded by an episode of vomiting. Patient was found to be hypoxic with oxygen saturation 84% on room air. Was placed on 3 L with oxygen saturation rising to 90s. Chest x-ray did not show any acute abnormality 1. Acute hypoxic respiratory insufficiency secondary to parainfluenza virus infection ? Secondary to aspiration pneumonitis. Admitted to a monitored bed imaging studies did not show any abnormality.Patient initial viral respiratory assay including COVID also came back negative. Admitted to regular nursing floor for symptom management ? 06/17/2025; patient viral respiratory panel came back positive for parainfluenza 2 virus. Will continue current treatment as above in addition to symptom management 2. Acute kidney injury ? Patient has known baseline creatinine of 0.93 creatinine as of 06/16/2025 was 1.34 patient started on IV hydration 3. Dyslipidemia ?Patient is on statin therapy, continued at home dose 4. Diabetes mellitus type II -patient's oral hypoglycemics held. Placed on Accu-Cheks a.c. and at bedtime and covered with sliding scale insulin 5. Class II obesity with BMI of 35,2 ? Complicating care 6. Tobacco dependence ? Counseled on cessation, offered nicotine patch for tobacco cravings 7. Mood disorder ? With history of anxiety depression and bipolar disorder did continue patient psychotropic medications 8. 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 Acute on chronic congestive heart failure?with preserved ejection fraction ? Patient had declined echo evaluation during the previous admission ? 2D echo obtained during patient hospital stay did show No regional wall motion abnormalities noted. LVEF is 50-55% There is mild hypertrophy of the RV free wall Normal RV systolic function. Trivial pericardial effusion ? Patient responded to diuretic 10. DVT prophylaxis ? Subcu Lovenox Time spent in the patient's overall evaluation,decision-making process, review of diagnostic data, adjustment of management, discussion with other providers, nursing nursing and ancillary staff involved in patient's care documentation, 38 Minutes Allergies/Procedures Done in Hospital Allergies ibuprofen Allergy (Verified 06/15/25 18:14) Rash Penicillins Allergy (Verified 06/15/25 18:14) RASH Type of Care/Length of Stay Estimated LOS: More Than 30 Days Type of Care Needed: Intermediate Rehab Potential: Fair Prognosis: Fair Additional Orders/Day of Discharge Day of Discharge: 06/18/25 Dietary and Speech Recommendations Dietitian Recommendations/Changes: Will adjust diet to 2000 calorie/consistent carbohydrate; cardiac. Will d/c PO glucerna shake with medpass; PO is adequate at meals. Discharge Plan Admission Admit Date/Time: 06/15/25 20:40 Attending Provider: Fredo Alberts Primary Care Provider: Kamar Bright Consulting Providers: Jamar Byrne Discharge Orders/Prescriptions Prescriptions: New furosemide [Lasix] 40 mg tablet 20 mg PO DAILY Qty: 30 0RF doxycycline hyclate 100 mg capsule 100 mg PO BID Qty: 14 0RF prednisone 20 mg tablet 20 mg PO BID Qty: 14 0RF guaifenesin [Mucinex] 600 mg tablet extended release 12hr 1,200 mg PO BID Qty: 30 0RF Continued atorvastatin [Lipitor] 10 mg tablet 10 mg PO QHS lorazepam [Ativan] 1 mg tablet 1 mg PO Q8H PRN (Reason: agitation) ipratropium-albuterol 0.5 mg-3 mg(2.5 mg base)/3 mL Solution For Nebulization 3 ml inhalation Q4HWA.RT Qty: 0 0RF albuterol sulfate 2.5 mg /3 mL (0.083 %) Solution For Nebulization 2.5 mg inhalation Q2H PRN PRN (Reason: SHORTNESS OF BREATH ) Qty: 0 0RF insulin glargine [Lantus Solostar U-100 Insulin] 100 unit/mL (3 mL) insulin pen 10 unit subcut QPM Qty: 3 0RF Trintellix 20 mg tablet 20 mg PO DAILY sennosides-docusate sodium [Colace 2-In-1] 8.6-50 mg tablet 1 tab-cap PO DAILY aripiprazole [Abilify] 15 mg tablet 15 mg PO DAILY aspirin [Adult Low Dose Aspirin] 81 mg tablet,delayed release (DR/EC) 81 mg PO DAILY buspirone 10 mg tablet 10 mg PO TID gabapentin 100 mg capsule 200 mg PO TID trazodone 50 mg tablet 100 mg PO QHS cholecalciferol (vitamin D3) 1,250 mcg (50,000 unit) capsule 1,250 mcg PO QWEEK Rx Instructions: QMONDAY metformin 1,000 mg tablet 1,000 mg PO BID [place] Heartburn Chew 300 mg (750 mg) tablet,chewable 600 mg PO Q6H PRN (Reason: heartburn) acetaminophen [Aminofen] 325 mg tablet 650 mg PO Q4H PRN (Reason: fever or pain) sacubitril-valsartan [Entresto] 49-51 mg tablet 1 tab PO BID lorazepam [Ativan] 1 mg tablet 1 mg PO TID Qty: 3 0RF Referrals / Follow Up: Kamar Bright MD [Primary Care Provider, Medical] - Within 2 Weeks Disposition Disposition (needs filled in before D/C Order can be placed): NonSkilled NH/Intermed Care
[2025-06-18 09:40] VITALS: BP 93/64; PULSE 71; RESP 18; TEMP 36.9; O2SAT 95
[2025-06-18] MEDS: SACUBITRIL/VALSARTAN 49-51 MG TABLET 1 EACH PO (09:44)
[2025-06-18] MEDS: levoFLOXacin IV 750 MG/150 ML BAG 100 MG IV (09:45)
[2025-06-18] MEDS: VORTIOXETINE HYDROBROMIDE 10 MG TABLET 20 MG PO (09:45)
[2025-06-18] MEDS: Aspirin E.C. 81 MG Tablet PO (09:46)
--- NOTE | 2025-06-18 09:53 | CASEMGMT ---
Social Work Physician updated and pt is ready for discharge today.? DCA and bedside nurse notified of discharge. DCA to complete all final notifications and arrangements. Disposition:[facility]; intermediate level of care OTONIEL Hill
--- NOTE | 2025-06-18 10:19 | NURSING ---
called report to Codie at [facility], all questions answered update given.
--- NOTE | 2025-06-18 10:50 | CASEMGMT ---
Discharge Planning DC orders, signed med list, and transport time faxed to [facility]. Fax confirmation rec'd. Physicians will transport pt by cot at 10:45a. Nursing, SW, pts sister/legal guardian (Ileana) updated. Nina Tran, RG Planning Asst.
--- NOTE | 2025-06-18 14:26 | PHA.DC.MR.R ---
Pharmacy [place] Med Reconciliation Pharmacy Service has performed discharge medication reconciliation for this patient. The patient's discharge medication list was reviewed for discrepancies and discrepancies were resolved. Medications at Discharge Home Medications acetaminophen 325 mg tablet (Aminofen) 650 mg PO Q4H PRN fever or pain 07/31/24 aripiprazole 15 mg tablet (Abilify) 15 mg PO DAILY SCHIZOPHRENIA 07/31/24 aspirin 81 mg tablet,delayed release (Adult Low Dose Aspirin) 81 mg PO DAILY HTN 07/31/24 buspirone 10 mg tablet 10 mg PO TID BIPOLAR 07/31/24 calcium carbonate ([place]lye-[place] Heartburn Chew) 600 mg PO Q6H PRN heartburn 07/31/24 cholecalciferol (vitamin D3) 1,250 mcg (50,000 unit) capsule 1,250 mcg PO QWEEK SUPPLEMENT 07/31/24 gabapentin 100 mg capsule 200 mg PO TID NEUROPATHIC PAIN 07/31/24 metformin 1,000 mg tablet 1,000 mg PO BID DM 07/31/24 sennosides 8.6 mg-docusate sodium 50 mg tablet (Colace 2-In-1) 1 tab-cap PO DAILY CONSTIPATION 07/31/24 trazodone 50 mg tablet 100 mg PO QHS BIPOLAR 07/31/24 vortioxetine 20 mg tablet (Trintellix) 20 mg PO DAILY DEPRESSION 07/31/24 atorvastatin 10 mg tablet (Lipitor) 10 mg PO QHS hld 01/31/25 lorazepam 1 mg tablet (Ativan) 1 mg PO Q8H PRN agitation 01/31/25 albuterol sulfate 2.5 mg/3 mL (0.083 %) solution for nebulization 2.5 mg (3 mL) inhalation Q2H PRN PRN SHORTNESS OF BREATH #0 mL 02/03/25 insulin glargine 100 unit/mL (3 mL) subcutaneous pen (Lantus Solostar U-100 Insulin) 10 unit (0.1 mL) subcut QPM #3 mL 02/03/25 ipratropium 0.5 mg-albuterol 3 mg (2.5 mg base)/3 mL nebulization soln 3 ml inhalation Q4HWA.RT #0 mL 02/03/25 sacubitril 49 mg-valsartan 51 mg tablet (Entresto) 1 tab PO BID chf 06/15/25 doxycycline hyclate 100 mg capsule 100 mg PO BID #14 caps 06/18/25 furosemide 40 mg tablet (Lasix) 20 mg (1/2 x 40 mg) PO DAILY #30 tabs 06/18/25 guaifenesin 600 mg tablet, extended release 12 hr (Mucinex) 1,200 mg (2 x 600 mg) PO BID #30 tabs 06/18/25 lorazepam 1 mg tablet (Ativan) 1 mg PO TID agitation #3 tabs 06/18/25 prednisone 20 mg tablet 20 mg PO BID #14 tabs 06/18/25
== END 2025-06-18 10:55 | disposition intermediate care facility (04) | DRG 137 ==
LOC: ED 19:54 → MS3 20:47
PROVIDERS: Admitting Provider Family Medicine; Emergency Provider Emergency Medicine; PCP Family Medicine; Visit Provider Internal Medicine
DX: J69.0 Pneumonitis due to inhalation of food and vomit (principal); N17.9 Acute kidney failure, unspecified; Z66 Do not resuscitate; F20.9 Schizophrenia, unspecified; E11.51 Type 2 diabetes mellitus with diabetic peripheral angiopathy without gangrene; I69.351 Hemiplegia and hemiparesis following cerebral infarction affecting right dominant side; J44.9 Chronic obstructive pulmonary disease, unspecified; I11.0 Hypertensive heart disease with heart failure; E66.812 Obesity, class 2; I50.9 Heart failure, unspecified; I69.322 Dysarthria following cerebral infarction; Z79.4 Long term (current) use of insulin; K21.9 Gastro-esophageal reflux disease without esophagitis; F17.210 Nicotine dependence, cigarettes, uncomplicated; F31.9 Bipolar disorder, unspecified; E78.5 Hyperlipidemia, unspecified; R09.02 Hypoxemia; Z79.84 Long term (current) use of oral hypoglycemic drugs; Z86.16 Personal history of COVID-19; Z79.899 Other long term (current) drug therapy; Z79.82 Long term (current) use of aspirin; Z68.35 Body mass index [BMI] 35.0-35.9, adult; B34.8 Other viral infections of unspecified site
CPT/HCPCS: 36415; 36600; 71045; 80048; 82803; 82962; 83735; 84100; 84484; 85025; 87633; 93005; 93306; 94640; 94668; 97162; 97165; 97802; 99285; A4216; C8929; J2405